=== PATIENT | female | born 1950 | race Hispanic/Latino ===

== ENCOUNTER 2018-07-18 06:27 | Emergency (ER) | payer OTHER ==
[2018-07-18] MEDS ORDERED: ACETAMINOPHEN 325 MG TABLET ONE (07:11)
--- NOTE | 2018-07-18 09:00 | ER ---
Nurse's Notes [facility] Name: Sapphire Martinez Age: 68 yrs Sex: Female : 1950 Arrival Date: 07/18/2018 Time: 06:29 Bed 5 Private MD: Diagnosis: Cervical disc disorder with radiculopathy Presentation: 07/18 06:38 Presenting complaint: Patient states: neck pain on left side for one week, elevated BP. tl2 Transition of care: patient was not received from another setting of care. Acute neurological deficit: none identified. Onset of symptoms was July 10, 2018. Risk Assessment: Do you want to hurt yourself or someone else? Patient reports no desire to harm self or others. Initial Sepsis Screen: Does the patient meet any 2 criteria? No. Patient's initial sepsis screen is negative. Does the patient have a suspected source of infection? No. Patient's initial sepsis screen is negative. Care prior to arrival: None. 06:38 Method Of Arrival: Ambulatory tl2 06:38 Acuity: TONY 4 tl2 Triage Assessment: 06:39 General: Appears in no apparent distress. uncomfortable, Behavior is calm, cooperative, tl2 appropriate for age. Pain: Complains of pain in left side of neck. Neuro: Level of Consciousness is awake, alert, obeys commands, Oriented to person, place, time, situation. Cardiovascular: Denies chest pain. Respiratory: Airway is patent Respiratory effort is even, unlabored, Respiratory pattern is regular, symmetrical. GI: No signs and/or symptoms were reported involving the gastrointestinal system. : No signs and/or symptoms were reported regarding the genitourinary system. Historical: - Allergies: 06:39 Advil; tl2 - Home Meds: 06:39 aspirin 81 mg Oral TbEC [Active]; atorvastatin Oral [Active]; cetirizine Oral [Active]; tl2 enalapril maleate Oral [Active]; gabapentin Oral [Active]; Metformin Oral [Active]; Omeprazole Oral [Active]; paroxetine Oral [Active]; - PMHx: 06:39 Diabetes - NIDDM; Hyperlipidemia; Hypertension; tl2 - Immunization history:: Adult Immunizations up to date. - Social history:: Smoking status: Patient/guardian denies using tobacco. - Ebola Screening: : No symptoms or risks identified at this time. Screenin:41 Abuse screen: Denies threats or abuse. Nutritional screening: No deficits noted. tl2 Tuberculosis screening: No symptoms or risk factors identified. Fall Risk None identified. Assessment: 07:05 General: Appears in no apparent distress. comfortable, Behavior is calm, cooperative, sv appropriate for age. Pain: Complains of pain in left posterior aspect of neck and left lateral aspect of neck Pain currently is 5 out of 10 on a pain scale. Pain began a week ago. Neuro: Level of Consciousness is awake, alert, obeys commands, Oriented to person, place, time, situation, Moves all extremities. Full function. Respiratory: Respiratory effort is even, unlabored, Respiratory pattern is regular, symmetrical. Derm: Skin is pink, warm \T\ dry. 09:28 Reassessment: Patient appears in no apparent distress at this time. Patient and/or sv family updated on plan of care and expected duration. Pain level reassessed. Patient is alert, oriented x 3, equal unlabored respirations, skin warm/dry/pink. Vital Signs: 06:39 BP 147 / 75; Pulse 59; Resp 18; Temp 98.3(O); Pulse Ox 96% on R/A; Weight 81.65 kg; tl2 Height 5 ft. 1 in. (154.94 cm); Pain 5/10; 07:42 BP 107 / 63; Pulse 56; Resp 16; Pulse Ox 96% on R/A; sv 08:14 BP 140 / 79; Pulse 55; Resp 16; Pulse Ox 96% ; sv 08:51 BP 123 / 63; Pulse 53; Resp 16; Pulse Ox 98% ; sv 06:39 Body Mass Index 34.01 (81.65 kg, 154.94 cm) tl2 ED Course: 06:29 Patient arrived in ED. es 06:31 Horacio Gabriel, RN is Primary Nurse. bp 06:39 Triage completed. tl2 06:39 Bakari Linares PA is PHCP. jmm 06:39 Rodolfo Bolden MD is Attending Physician. jmm 06:39 Arm band placed on right wrist. tl2 06:41 Patient has correct armband on for positive identification. Bed in low position. Call tl2 light in reach. Side rails up X 1. Adult w/ patient. 07:03 Primary Nurse role handed off by Horacio Gabriel, RN sv 07:03 Yudy Dawkins, RN is Primary Nurse. sv 07:11 EKG done, by ED staff, reviewed by Bakari WAKEFIELD. sv 07:16 CT completed. Patient moved to CT via wheelchair. Patient moved back from CT. cw1 07:22 CT Head C Spine In Process Unspecified. EDMS 07:42 Awaiting radiology results. Awaiting re-evaluation by ER provider. sv 08:59 Herb Arredondo MD is Referral Physician. [facility] 09:28 No provider procedures requiring assistance completed. Patient did not have IV access sv during this emergency room visit. Administered Medications: 07:11 Drug: Tylenol 650 mg Route: PO; sv 08:00 Follow up: Response: No adverse reaction sv Outcome: 09:00 Discharge ordered by . [facility] 09:28 Discharged to home ambulatory, with family. sv 09:28 Condition: stable 09:28 Discharge instructions given to patient, Instructed on discharge instructions, follow up and referral plans. medication usage, Demonstrated understanding of instructions, follow-up care, medications, Prescriptions given X 1. 09:28 Patient left the ED. sv Signatures: Dispatcher [employer] EDMS Yudy Dawkins, RN RN Bakari Coley PA PA [facility] Shelby Miranda Crystal cw1 Angi Zarate, RN RN tl2 Horacio Gabriel, RN RN bp
--- NOTE | 2018-07-18 09:00 | EDPHYS ---
Physician Documentation [facility] Name: Sapphire Martinez Age: 68 yrs Sex: Female : 1950 Arrival Date: 07/18/2018 Time: 06:29 Bed 5 Private MD: ED Physician Rodolfo Bolden HPI: 07/18 07:00 This 68 yrs old Female presents to ER via Ambulatory with complaints of Neck jmm Pain, <24hrs Old. 07:00 The patient or guardian complains of pain, that is acute. Onset: The symptoms/episode jmm began/occurred gradually, 1 week(s) ago. Associated signs and symptoms: Pertinent negatives: fever, vomiting, weakness. The pain does not radiate. This is a 68 year old female with a history of DM, HLP, HTN that presents to the ED with left sided neck pain radiating to the base of the skull for the past week. Patient denies weakness, fever, chest pain. Patient is concerned pain may be due to elevated blood pressure. . Historical: - Allergies: 06:39 Advil; tl2 - Home Meds: 06:39 aspirin 81 mg Oral TbEC [Active]; atorvastatin Oral [Active]; cetirizine Oral [Active]; tl2 enalapril maleate Oral [Active]; gabapentin Oral [Active]; Metformin Oral [Active]; Omeprazole Oral [Active]; paroxetine Oral [Active]; - PMHx: 06:39 Diabetes - NIDDM; Hyperlipidemia; Hypertension; tl2 - Immunization history:: Adult Immunizations up to date. - Social history:: Smoking status: Patient/guardian denies using tobacco. - Ebola Screening: : No symptoms or risks identified at this time. ROS: 07:00 Constitutional: Negative for fever, chills, and weight loss, Cardiovascular: Negative jmm for chest pain, palpitations, and edema, Respiratory: Negative for shortness of breath, cough, wheezing, and pleuritic chest pain. 07:00 Neck: Positive for pain with movement. 07:00 Neuro: Positive for headache. 07:00 All other systems are negative. Exam: 07:00 Head/Face: atraumatic. jmm 07:00 Constitutional: The patient appears in no acute distress, alert, awake. 07:00 Neck: C-spine: appears grossly normal, ROM/movement: is normal, pain elicited on palpation of the left trapezius, pain on palpation of the base of the skull. 07:00 Musculoskeletal/extremity: FROM appreciated, Full strength in all extremities, full safety representative strength. 07:00 Skin: Appearance: Color: normal in color. 07:00 Neuro: Orientation: is normal, Mentation: is normal, Memory: is normal, Gait: is steady. 07:00 Psych: Behavior/mood is pleasant, cooperative. Vital Signs: 06:39 BP 147 / 75; Pulse 59; Resp 18; Temp 98.3(O); Pulse Ox 96% on R/A; Weight 81.65 kg; tl2 Height 5 ft. 1 in. (154.94 cm); Pain 5/10; 07:42 BP 107 / 63; Pulse 56; Resp 16; Pulse Ox 96% on R/A; sv 08:14 BP 140 / 79; Pulse 55; Resp 16; Pulse Ox 96% ; sv 08:51 BP 123 / 63; Pulse 53; Resp 16; Pulse Ox 98% ; sv 06:39 Body Mass Index 34.01 (81.65 kg, 154.94 cm) tl2 MDM: 06:59 Patient medically screened. [facility] 08:57 Data reviewed: vital signs, nurses notes, radiologic studies, CT scan. Counseling: I gal had a detailed discussion with the patient and/or guardian regarding: the historical points, exam findings, and any diagnostic results supporting the discharge/admit diagnosis, radiology results, the need for outpatient follow up, to return to the emergency department if symptoms worsen or persist or if there are any questions or concerns that arise at home. ED course: Patient has no neuro deficits at this time. Dr. Jean discussed CT findings with Dr. Carrasco. Findings appear chronic but advise outpatient MRI for further evaluation. I discussed results with the patient using an mechanical press operator. Patient states she was diagnosed with a pinched nerve 6 months prior. I advised the patient of the need to follow up with pharmacy informatics specialist. Patient given strict return precautions. Patient understood and agrees with the plan of care. . 07/18 07:00 Order name: CT Head C Spine [facility] 07/18 07:00 Order name: EKG - Nurse/Tech; Complete Time: 07:11 [facility] 07/18 07:11 Order name: EKG; Complete Time: 07:11 sv Administered Medications: 07:11 Drug: Tylenol 650 mg Route: PO; sv 08:00 Follow up: Response: No adverse reaction sv Disposition: 07/18/18 09:00 Discharged to Home. Impression: Cervical disc disorder with radiculopathy. - Condition is Stable. - Discharge Instructions: Cervical Radiculopathy. - Prescriptions for orphenadrine citrate 100 mg Oral Tablet Sustained Release - take 1 tablet by ORAL route 2 times per day As needed; 20 tablet. - Medication Reconciliation Form, Thank You Letter, Antibiotic Education, Prescription Opioid Use form. - Follow up: Herb Arredondo MD; When: 1 - 2 days; Reason: Recheck today's complaints, Continuance of care, Re-evaluation by your physician. Signatures: Dispatcher [employer] Yudy Lawrence, LUISA RN Bakari Coley PA PA jmm Knox, Taylor RN RN tl2 Corrections: (The following items were deleted from the chart) 09:28 09:00 07/18/2018 09:00 Discharged to Home. Impression: Cervical disc disorder with sv radiculopathy. Condition is Stable. Forms are Medication Reconciliation Form, Thank You Letter, Antibiotic Education, Prescription Opioid Use. Follow up: Herb Arredondo; When: 1 - 2 days; Reason: Recheck today's complaints, Continuance of care, Re-evaluation by your physician. gal
--- NOTE | 2018-07-19 08:45 | RAD REPORT ---
EXAM DESCRIPTION: CT - Head C Spine Mpr Wo Con - 07/18/2018 11:28 pm CLINICAL HISTORY: Head and neck pain. Radiculopathy COMPARISON: February 2018 MRI C-spine TECHNIQUE: Computed axial tomography of the head and cervical spine was obtained. Sagittal and coronal reconstruction was performed.Due to hospital technical malfunction the exam coul d not be dictated yesterday All CT scans are performed using dose optimization technique as appropriate and may include automated exposure control or mA/KV adjustment according to patient size. FINDINGS: An intracranial bleed is not seen. The ventricles are normal in caliber. An extra-axial fl uid collection is not noted.Fluid within the visualized sinuses and mastoids is not seen A cervical fracture is not visualized. No dislocation is noted. A small central disc herniation is pr esent at C3-4 mildly compressing the spinal cord. A structure is present within the region of the left transverse foramen/left neural foramina which e rodes the left aspect of the C6 vertebral body. IMPRESSION: No acute intracranial abnormality is seen. A cervical fracture is not visualized. A small central disc herniation C3-4 Structure expanding the left transverse foramen/neural foramina and eroding the left aspect of the C6 vertebral body. This could be secondary to a mass such as a nerve sheath tumor or dural ectasia of t he nerve root sleeve. MRI with contrast is recommended The examination was discussed with Doctor Jean in the Emergency Room 07/18/2018
--- NOTE | 2018-07-20 08:19 | EKG ---
Test Date: 2018-07-18 Test Time: 07:10:10 Manager Personal: SWG MEASUREMENT RESULTS: Intervals: Rate: 60 VA: 142 QRSD: 82 QT: 474 QTc: 474 [place]: P: -2 VA: 142 QRS: 18 T: -36 INTERPRETIVE STATEMENTS: sinus bradycardia with frequent premature ventricular complexes Nonspecific T wave abnormality Prolonged QT Abnormal ECG Compared to ECG 09/14/2017 17:10:01 T-wave abnormality now present Prolonged QT interval now present Sinus rhythm no longer present Electronically Signed On 07-20-18 08:19:13 CDT by Faisal Allen
== END 2018-07-18 09:28 | disposition home or self-care (01) ==
LOC: ER 06:27
DX: M54.12 Radiculopathy, cervical region (principal); E11.9 Type 2 diabetes mellitus without complications; E78.5 Hyperlipidemia, unspecified; I10 Essential (primary) hypertension; Z88.6 Allergy status to analgesic agent
CPT/HCPCS: 70450; 72125; 93005; 99284

== ENCOUNTER 2019-01-14 17:46 | Emergency (ER) | payer OTHER ==
[2019-01-14] MEDS ORDERED: ONDANSETRON 4 MG/2 ML VIAL ONE (18:23)
[2019-01-14] MEDS ORDERED: FENTANYL CITR 100 MCG/2 ML ONE (18:23)
[2019-01-14 18:59] LABS: Absolute Lymphocytes (CBC) 3.3 K/uL (0.7-4.9); Absolute Monocytes 0.7 K/uL (0.1-1.3); Absolute Neutrophil 3.3 K/uL (1.8-8.0); Basophils % 0.4 % (0-1.3); Eosinophils % 2.1 % (0-4.4); Hematocrit 39.4 % (36.0-45.0); Lymphocytes % 43.6 % (15.3-44.8); MPV 10.4 fL (7.6-11.3); Monocytes % 9.1 % (3.3-12.3); RBC Red Blood Cell Count 4.44 M/uL (3.86-4.86)
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
[2019-01-14 20:24] LABS: Potassium 3.9 mmol/L (3.5-5.1)
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
== END 2019-01-14 20:51 | disposition home or self-care (01) ==
LOC: ER 17:46
DX: S13.9XXA Sprain of joints and ligaments of unspecified parts of neck, initial encounter (principal); S40.012A Contusion of left shoulder, initial encounter; V49.40XA Driver injured in collision with unspecified motor vehicles in traffic accident, initial encounter; E11.9 Type 2 diabetes mellitus without complications; E78.5 Hyperlipidemia, unspecified; I10 Essential (primary) hypertension
CPT/HCPCS: 85025; 80048; 36415; 86900; 86850; 86901; 70450; 72125; 71260; 74177; 96375; 96374; 99285; Q9967; J3010; J2405

== ENCOUNTER 2020-05-24 18:09 | Inpatient (IN) | payer OTHER ==
--- OUTSIDE RECORDS SUMMARY | 2020-05-24 18:12 | XMS REPORT | Continuity of Care Document ---
:1950 Author Organization [facility] t Address [address] [place] [address] Care Team Providers Name Role Phone Unavailable Unavailable Unavailable Payers Payer Name Policy Type Policy Number Effective Date Expiration Date S ource Problems This patient has no known problems. Allergies, Adverse Reactions, Alerts Allergy Allergy Status Severity Reaction(s) Onset Inactive Treating Comm ents Source Name Type Date Date Clinician ibuprofe DA Active U [facility] Oscar n 02-02 [facility] Medications This patient has no known medications. Procedures This patient has no known procedures. Results Test Description Test Time Test Comments Results Result Comments Source GLUBED 2019-02-05 06:37:00 Test Item Value Reference Range Interpretation Comme nts GLUBED (test code = GLUBED) 168 mg/dL 70-105 H Performed by certified phototypesetter operator at [place]2019-04-11 20:57:00 Test Item Value Reference Range Interpretation Comments GLUBED (test code = 158 mg/dL 70-105 H Performe d by certified GLUBED) phototypesetter operator at [place]2019-04-11 16:41:00 Test Item Value Reference Range Interpretation Comments GLUBED (test code = 136 mg/dL 70-105 H Performe d by certified GLUBED) phototypesetter operator at [place]2019-04-11 11:35:00 Test Item Value Reference Range Interpretation Comments GLUBED (test code = 192 mg/dL 70-105 H Performe d by certified GLUBED) phototypesetter operator at [place]2019-04-11 07:44:00 Test Item Value Reference Range Interpretation Comments GLUBED (test code = 145 mg/dL 70-105 H Performe d by certified [facility] 21:[facility] Test Item Value Reference Range Interpretation Comments GLUBED (test code = 159 mg/dL 70-105 H Performe d by certified GLUBED) phototypesetter operator at [place]2019-04-10 16:47:00 Test Item Value Reference Range Interpretation Comments GLUBED (test code = 169 mg/dL 70-105 H Performe d by certified GLUBED) phototypesetter operator at [place]2019-04-10 11:49:00 Test Item Value Reference Range Interpretation Comments GLUBED (test code = 137 mg/dL 70-105 H Performe d by certified GLUBED) phototypesetter operator at [facility] - CT ABD PELVIS W/O [id number] 15:41:00 Name: DANIELLE BROWN [facility] : 1950 Age/S: 68 / F [address] [facility] Unit #: [id number] Loc: [place] [address] Phys: Jordan Kraus Jr, MD Acct: [id number] Dis Date: Status: REG ER PHONE #: [phone] Exam Date: 02/02/2019 1449 FAX #: [phone] Reason: ABD APIN EXAMS: CPTCODE: [id number] CT ABD PELVIS W/O CONT 47234 - CT ABD PELVIS W/O CONT CLINICAL HISTORY: Abdominal pain. COMPARISON: None TECHNIQUE: Sequential axial images of abdomen and pelvis without contrast with [place] coronal reconstructions. This CT exam was performed using one or more of the following dose reduction techniques: Automated exposure control; Adjustment of the mA and/or kV according to patient size; Use of iterative reconstruction technique. The total exam DLP is 57 3.56 mGy-cm. FINDINGS: There is limited evaluation of the solid and hollow visceral organs without the use of IV contrast. Dependent atelectasis is seen at bothlung bases. There is a subtle 3 mm nodule within the periphery of the right middle lobe. No definite pleural or pericardial effusion. No pneumothorax. The thoracic aorta is markedly tortuous. Moderate atherosclerotic calcifications are seen within the thoracic aorta and coronary arteries. 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 Pancreatic tail is not visualized as well. The gallbladder is partially decompressed and contains hyperdense material in the dependent portion, suggestive of sludge. The left kidney appears mildly atrophic. There is evidence of cortical scarring within the right mid kidney is. In addition, there is marked cortical thinning within the mid left kidney. Cortical lobular prominence at the upper pole of the left kidney may represent preserved cortex versus solid mass lesion. There is no evidence of hydronephrosis. Adrenal glands are unremarkable. Liver is decreased in attenuation, consistent with mild diffuse fatty infiltration. Bowel loops are unopacified and appear decompressed. There is a moderate amount of stool scattered throughout the colon. Scattered diverticula are noted, without definite inflammation. The appendix is unremarkable. There is mild laxity in the anterior abdominal wall, with a wide mouth paraumbilical hernia containing small bowel loops. Small bowel is normal in caliber. There is no evidence of free air, free fluid or pneumatosis. The distal stomachis decompressed which accentuates mucosa. There is an area of focal haziness within the mesentery with associated small 9 x 6 mm soft tissue and adjacent PAGE 1 Signed Report (CONTINUED) Name: DANIELLE BROWN [facility] : 1950 Age/S: 68 / F [address] [facility] Unit #: [id number] Loc: [place], [place] [address] Phys: Jordan Kraus Jr, MD Acct: [id number] Dis Date: Status: REG ER PHONE #: [phone] Exam Date: 02/02/2019 1449 FAX #: [phone] Reason: ABD APIN EXAMS: CPT CODE: [id number] CT ABD PELVIS W/O CONT 88310 <Continued> calcifications (series 300, image #[id number]; series #2 image #[id number]) The pelvic sidewall symmetric. The bladder is incompletely distended without calculi. Patient appears to be status post hysterectomy. The abdominal aorta is quite tortuous with mild to moderate atherosclerotic calcifications. 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 No acute bony abnormality. IMPRESSION: No evidence of intestinal or urinary obstruction. No definite inflammatory process associated with the bowel. Focal area of haziness within the anterior abdominal mesentery with associated subcentimeter soft tissue density and calcifications. This area is adjacent to the transverse colon. Findings could represent epiploic appendagitis, mesenteric infarct or even an area of mesenteric infiltration secondary to metastatic process. Recommend correlation with symptomatology. Mildly decompressed gallbladder with evidence of gallbladder sludge versus tiny stones. No secondary signs of gallbladder inflammation. Bilateral renal scarring. There is thickening of the cortex in a nodular configuration the upper pole the left kidney. This may represent an area of preserved cortex. However, a focal solid nodule is not excluded. Paraumbilical hernia containing small bowel loops. No evidence of incarceration or obstruction. 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 Prominent gastric mucosa which may be in part related to incomplete distention. An inflammatory process, however, is not excluded. Other nonemergent findings described above. PAGE 2 Signed Report (CONTINUED) Name: DANIELLE BROWN [facility] : 1950 Age/S: 68 / F [address] [facility] Unit #: [id number] Loc: [place] [address] Phys: Jordan Kraus [facility] Acct: [id number] Dis Date: Status: REG ER PHONE #: [phone] Exam Date: 02/02/2019 1449 FAX #: [phone] Reason: ABD APIN EXAMS: CPT CODE: [id number] CT ABD PELVIS W/O CONT 18490 <Continued> at 1541 Reported and signed by: Liz Rutledge MD CC: Reagan Hirsch Technologist:Yared Castle RT (R) CT (R) CTDI: 10.54 DLP: 573.56 Trnscb Date/Time: 02/02/2019 (1541) [id number] Orig Print D/T: S: 02/02/2019 (1544) CTDI: 10.54 DLP: 573.56 PAGE 3 Signed ReportURINALYSIS W REFLEX [id number] 15:22:00 Test Item Value Reference Range Interpretation Comments UA COLOR (test code = COLU) Yellow YELLOW UA APPEARANCE (test code = HAZY CLEAR APPU) UA GLUCOSE DIPSTICK (test code NORMAL mg/dl NORMAL = DGLUU) UA BILIRUBIN DIPSTICK (test NEGATIVE mg/dl NEGATIVE code = BILU) UA KETONE DIPSTICK (test code NEGATIVE mg/dl NEGATIVE = KETU) UA SPECIFIC GRAVITY (test code 1.025 1.001-1.035 N = SGU) UA BLOOD DIPSTICK (test code = NEGATIVE /UL NEGATIVE JOE) UA PH DIPSTICK (test code = 5.0 4.6-8.0 LUI) UA PROTEIN DIPSTICK (test code NEGATIVE mg/dl NEGATIVE = PROU) UA UROBILINIOGEN DIPSTICK NORMAL mg/dl NORMAL (test code = URO) UA NITRITE DIPSTICK (test code NEGATIVE NEGATIVE = ANGELA) UA LEUKOCYTE ESTERASE DIPSTICK NEGATIVE /UL NEGATIVE (test code = LEUU) UA COMMENT (test code = COMU) CLN CATCH UA WBC (test code = WBCU) 3-5 #/hpf 0-5 UA RBC (test code = RBCU) 6-10 #/hpf 0-5 A UA EPITHELIAL CELLS (test code FEW /hpf NEG,FEW = EPIU) UA BACTERIA (test code = BACU) 2+ /hpf NEGATIVE A UA CALCIUM OXALATE CRYSTALS 1+ /hpf NEG,FEW A (test code = CAOXU) UA MUCUS (test code = MUCU) 2+ /hpf NEG,FEW A B-TYPE NATRIURETIC [id number] 15:02:00 Test Item Value Reference Range Interpretation Comments B-TYPE NATRIURETIC PEPTIDE (test 34.8 PG/ML 0-100 N code = BNP) BASIC METABOLIC [id number] 14:51:00 Test Item Value Reference Range Interpretation Comments SODIUM (test code = 139 mmol/L 136-145 N NA) POTASSIUM (test code = 3.9 mmol/L 3.5-5.1 N K) CHLORIDE (test code = 106 mmol/L 98-107 N CL) CARBON DIOXIDE (test 25 mmol/L 21-32 N code = CO2) GLUCOSE (test code = 170 mg/dL 70-100 H GLU) BLOOD UREA NITROGEN 16 mg/dL 7-18 N (test code = BUN) GLOMERULAR FILTRATION > 60.00 >=60 Report ing units: RATE (test code = GFR) mL/mi n/1.73m\S\2 (Modified MDRD formula)REFEREN CE RANGE: > or = 6 0 ml/min/1.73M2IF PATIENT IS -ROXANNA N, MULTIPLY REPORT ED RESULT BY1. CREATININE (test code 0.70 mg/dL 0.51-0.95 N = CREAT) CALCIUM (test code = 9.2 mg/dL 8.5-10.1 N CA) [id number] 14:51:00 Test Item Value Reference Range Interpretation Comments LIPASE (test code = LIP) 44 U/L 73-393 L [id number] 14:51:00 Test Item Value Reference Range Interpretation Comments TROPONIN-I (test <0.015 ng/ml 0.00-0.045 N GUIDELINES: 0.08 - 0.09 code = TROPI) Indeterminate0 .10 Risk Stratifica tion Limit: Suggest sequential te sting0.60 - 1.50 AMI cut off: Myocardial Inju ry by WHO criteria BASIC METABOLIC [id number] 14:49:00 Test Item Value Reference Range Interpretation Comments SODIUM (test code = 139 mmol/L 136-145 N NA) POTASSIUM (test code = 3.9 mmol/L 3.5-5.1 N K) CHLORIDE (test code = 106 mmol/L 98-107 N CL) CARBON DIOXIDE (test 25 mmol/L 21-32 N code = CO2) GLUCOSE (test code = 170 mg/dL 70-100 H GLU) BLOOD UREA NITROGEN 16 mg/dL 7-18 N (test code = BUN) GLOMERULAR FILTRATION > 60.00 >=60 Report ing units: RATE (test code = GFR) mL/mi n/1.73m\S\2 (Modified MDRD formula)REFEREN CE RANGE: > or = 6 0 ml/min/1.73M2IF PATIENT IS -ROXANNA N, MULTIPLY REPORT ED RESULT BY1. CREATININE (test code 0.70 mg/dL 0.51-0.95 N = CREAT) CALCIUM (test code = 9.2 mg/dL 8.5-10.1 N CA) [id number] 14:49:00 Test Item Value Reference Range Interpretation Comments LIPASE (test code = LIP) 44 U/L 73-393 L [id number] 14:49:00 Test Item Value Reference Range Interpretation Comments TROPONIN-I (test code = TROPI) ng/ml 0.00-0.045 PROTHROMBIN [id number] 14:48:00 Test Item Value Reference Interpretation Comments Range PROTHROMBIN TIME 12.9 SECONDS 8.7-12.1 H THERAPEUTIC LEVEL: 1.5 TO PATIENT (test code 1.9 TIMES NORMAL RANGE = PTP) INTERNATIONAL 1.2 Recommended Th erapeutic NORMAL RATIO (test PT Ratios For Oral code = INR) AnticoagulantTh erapy. CONDITION INT'L N ORMALIZED PT RATIO------- --- Prophylaxis of venous thrombosis 2.0 - 3.0in [facility] medical or surgicalpati ents, treatment of venousthrombosi s, prevention of e mbolism. Prevention of r ecurrent embolism, 2.5 - 3.5or treatment of patients with mechanicalprost hetic heart valves. THROMBOPLASTIN TIME [id number] 14:48:00 Test Item Value Reference Range Interpretation Comments THROMBOPLASTIN TIME PARTIAL 34.5 seconds 22.8-34.4 H (test code = PTT) CBC W/AUTO [id number] 14:33:00 Test Item Value Reference Range Interpretation Comments WHITE BLOOD CELL (test code = 8.8 X10(3) 4.5-11.0 N WBC) RED BLOOD CELL (test code = 3.75 X10(6) 4.2-5.4 L RBC) HEMOGLOBIN (test code = HGB) 11.1 g/dL 12.5-16.0 L HEMATOCRIT (test code = HCT) 35.1 % 37.0-47.0 L MEAN CELL VOLUME (test code = 93.6 fl 78-100 N MCV) MEAN CELL HGB (test code = MCH) 29.6 pg 26.0-34.0 N MEAN CELL HGB CONCETRATION 31.6 g/dl 30.0-37.0 N (test code = MCHC) RED CELL DISTRIBUTION WIDTH 14.9 % 11.5-14.5 H (test code = RDW) PLATELET COUNT (test code = 418 X10(3) 150-350 H PLT) MEAN PLATELET VOLUME (test code 9.8 fl 8.7-11.4 N = MPV) NEUTROPHIL % (test code = NT%) 66.2 % 36.0-66.0 H IMMATURE GRANULOCYTE % (test 0.6 % 0.0-2.0 N code = IG%) LYMPHOCYTE % (test code = LY%) 22.2 % 16-50 N MONOCYTE % (test code = MO%) 8.3 % 0.0-13.0 N EOSINOPHIL % (test code = EO%) 2.1 % 0.0-4.5 N BASOPHIL % (test code = BA%) 0.6 % 0.0-1.5 N NUCLEATED RBC % (test code = 0.0 % 0-0.2 N NRBC%) NEUTROPHIL # (test code = NT#) 5.8 X10(3) 1.7-7.7 N IMMATURE GRANULOCYTE # (test 0.05 X10(3)uL 0.00-0.03 H code = IG#) LYMPHOCYTE # (test code = LY#) 2.0 X10(3) 0.7-4.0 N MONOCYTE # (test code = MO#) 0.7 X10(3) 0.0-0.89 N EOSINOPHIL # (test code = EO#) 0.2 X10(3) 0.0-0.6 N BASOPHIL # (test code = BA#) 0.1 X10(3) 0.0-0.2 N NUCLEATED RBC # (test code = 0.00 K/mm3 0.0-0.1 N NRBC#) - XR CHEST 1 [id number] 14:25:00 [facility] Name: DANIELLE BROWN [address] [place] [address] Phys: Jordan Kraus Jr, MD [place], [place] [address] : 1950 Age: 68 Sex: F Acct: [id number] Loc: [place] PHONE #: [phone] Exam Date: 02/02/2019 Status: PRE ER FAX #: [phone] Radiology No: Unit No: [id number] Reason: chest pain EXAMS: CPT CODE: [id number] XR CHEST 1 V [id number] Fluoro Time: DAP (Gy m2): Air Kerma (mGy): EXAM: - XR CHEST 1 V LOCATION: C3 HISTORY: chest pain COMPARISON: None available time of interpretation. FINDINGS: Single view of the chest. No indwelling lines or tubes. No pneumothorax. The lungs are clear. No pleural effusions are present. The mediastinal contours are unremarkable. No acute osseous findings are present. IMPRESSION: No acute cardiopulmonary abnormality. at 2901 Reported and signed by: PRETTY SHARPE M.D. CC: Reagan Hirsch Technologist: RT [place] (R) Transcribed Date/Time: 02/02/2019 (0834) t.HV2 Orig Print D/T: S: 02/02/2019 (8737) PAGE 1 Signed Report
[2020-05-24] MEDS ORDERED: dexAMETHasone 10 MG/ML VIAL ONE (20:25)
[2020-05-24 20:45] LABS: Absolute Lymphocytes (CBC) 1.4 K/uL (0.7-4.9); Basophils % 0.2 % (0-1.3); Hematocrit 38.5 % (36.0-45.0); Lymphocytes % 10.2 % (15.3-44.8); MPV 10.1 fL (7.6-11.3); RBC Red Blood Cell Count 4.34 M/uL (3.86-4.86)
[2020-05-24] MEDS ORDERED: FENTANYL CITR 100 MCG/2 ML ONE (20:45)
--- NOTE | 2020-05-24 20:47 | RAD REPORT ---
EXAM DESCRIPTION: RAD - Chest Single View - 05/24/2020 8:37 pm CLINICAL HISTORY: Cough;Dyspnea, COVID positive COMPARISON: None TECHNIQUE: AP portable chest image was obtained 05/24/2020 8:37 pm . FINDINGS: Extensive bilateral airspace opacification is present. This predominantly peripheral distr ibution pattern is well described with COVID-19 pneumonia. Cardiomegaly is present. Vascular engorgem ent is present. Trachea is midline. No measurable pleural effusion and no pneumothorax. No acute bony abnormality seen. No acute aortic findings suspected. IMPRESSION: Bilateral airspace pneumonia pattern consistent with a COVID-19 pneumonia. Patient also has cardiomegaly and vascular engorgement. Patient may well have a component of failure/ volume overload as well.
[2020-05-24 20:48] LABS: Protime INR 1.01
[2020-05-24 20:56] LABS: Urine Glucose NEGATIVE (NEG); Urine Specific Gravity 1.015 (1.005-1.030)
[2020-05-24 20:57] LABS: Urine Blood NEGATIVE (NEG); Urine Protein NEGATIVE (NEG)
[2020-05-24 21:14] LABS: Blood Morphology Comment NOT SEEN (NOT SEEN); Platelet Estimate ADEQ; Urine White Blood Cell Casts OK
[2020-05-24 21:22] LABS: ALT/SGPT 39 U/L (12-78); AST/SGOT 42 U/L (15-37); Alkaline Phosphatase 84 U/L (45-117); BUN Blood Urea Nitrogen 19 mg/dL (7-18); Bicarbonate 26 mmol/L (21-32); Bilirubin Direct 0.1 mg/dL (0-0.2); Bilirubin Total 0.5 mg/dL (0.2-1.0); Ferritin 212.6 ng/mL (8-388); Glucose Level 189 mg/dL (74-106); Magnesium 1.9 mg/dL (1.8-2.4); NT PRO-BNP 992 pg/mL (<125); Potassium 3.4 mmol/L (3.5-5.1); Protein, Total 8.5 g/dL (6.4-8.2); Sodium Level 143 mmol/L (136-145); Troponin (Emerg Dept Use Only) < 0.02 ng/mL (0.0-0.045)
[2020-05-24] MEDS ORDERED: FUROSEMIDE 20 MG/ 2ML VIAL ONE (21:28)
[2020-05-24] MEDS ORDERED: ENOXAPARIN 80 MG/0.8 ML SQ ONE (21:28)
--- NOTE | 2020-05-24 21:30 | EDPHYS ---
Physician Documentation [facility] Name: Sapphire Martinez Age: 69 yrs Sex: Female : 1950 Arrival Date: 05/24/2020 Time: 18:23 Bed 19 Private MD: ED Physician Reji Amaral HPI: 05/24 22:35 This 69 yrs old Female presents to ER via EMS with complaints of Shortness Of snw Breath, COVID +. 22:35 The patient has shortness of breath at rest. Onset: The symptoms/episode began/occurred snw acutely. Duration: The symptoms are continuous, and are steadily getting worse. The patient's shortness of breath is aggravated by coughing, exertion, light activity, talking. Severity of symptoms: At their worst the symptoms were severe incapacitating. The patient has not experienced similar symptoms in the past. dx with CoVid 19 six days ago. Historical: - Allergies: 18:29 Advil; bp - Home Meds: 18:29 aspirin 81 mg Oral TbEC [Active]; atorvastatin Oral [Active]; cetirizine Oral [Active]; bp enalapril maleate Oral [Active]; gabapentin Oral [Active]; Metformin Oral [Active]; Omeprazole Oral [Active]; paroxetine Oral [Active]; - PMHx: 18:29 Diabetes - NIDDM; Hyperlipidemia; Hypertension; bp - Immunization history:: Adult Immunizations unknown. - Social history:: Smoking status: Patient denies any tobacco usage or history of. ROS: 22:35 Constitutional: Negative for fever, chills, and weight loss, Eyes: Negative for injury, snw pain, redness, and discharge, ENT: Negative for injury, pain, and discharge, Neck: Negative for injury, pain, and swelling, Cardiovascular: Negative for chest pain, palpitations, and edema. 22:35 Abdomen/GI: Negative for abdominal pain, nausea, vomiting, diarrhea, and constipation, Back: Negative for injury and pain, : Negative for injury, bleeding, discharge, and swelling, MS/Extremity: Negative for injury and deformity, Skin: Negative for injury, rash, and discoloration, Neuro: Negative for headache, weakness, numbness, tingling, and seizure, Psych: Negative for depression, anxiety, suicide ideation, homicidal ideation, and hallucinations. 22:35 Respiratory: Positive for cough, shortness of breath, at rest. Exam: 20:15 Head/Face: Normocephalic, atraumatic. Eyes: Pupils equal round and reactive to light, snw extra-ocular motions intact. Lids and lashes normal. Conjunctiva and sclera are non-icteric and not injected. Cornea within normal limits. Periorbital areas with no swelling, redness, or edema. ENT: Nares patent. No nasal discharge, no septal abnormalities noted. Tympanic membranes are normal and external auditory canals are clear. Oropharynx with no redness, swelling, or masses, exudates, or evidence of obstruction, uvula midline. Mucous membranes moist. Neck: Trachea midline, no thyromegaly or masses palpated, and no cervical lymphadenopathy. Supple, full range of motion without nuchal rigidity, or vertebral point tenderness. No Meningismus. Chest/axilla: Normal chest wall appearance and motion. Nontender with no deformity. No lesions are appreciated. 20:15 Constitutional: The patient appears alert, anxious, in obvious distress, moderately distressed, uncomfortable. 20:15 Cardiovascular: Rate: normal. 20:15 Respiratory: moderate respiratory distress is noted, Respirations: Vital Signs: 18:23 BP 145 / 89; Pulse 55; Resp 24; Temp 98.8; Pulse Ox 93% on 2 lpm NC; bp 19:23 BP 144 / 98; Pulse 61; Resp 23 S; Pulse Ox 94% on 2 lpm NC; jd3 21:04 Weight 77.11 kg (R); jd3 21:05 BP 135 / 70; Pulse 65; Resp 25 S; Pulse Ox 95% on 6 lpm NC; jd3 22:20 BP 100 / 49; Pulse 74; Resp 24 S; Pulse Ox 90% on 6 lpm NC; jd3 23:25 BP 105 / 48; Pulse 59; Resp 25 S; Pulse Ox 90% on 6 lpm NC; jd3 23:57 BP 107 / 48; Pulse 58; Resp 23 S; Pulse Ox 91% on 6 lpm NC; jd3 MDM: 18:53 Patient medically screened. snw 21:27 Data reviewed: vital signs, nurses notes, lab test result(s), EKG, radiologic studies. snw Data interpreted: Pulse oximetry: on 2L(s) per nasal canula, is 88 %. Interpretation: hypoxia. Plan: O2 by NC applied. Counseling: I had a detailed discussion with the patient and/or guardian regarding: the historical points, exam findings, and any diagnostic results supporting the discharge/admit diagnosis, radiology results, the need for further work-up and treatment in the hospital. Physician consultation: Myrtle Levy MD was called at 21:28, was contacted at 21:28, regarding admission, to the ICU, patient's condition. 05/24 19:19 Order name: Glucose, Ancillary Testing; Complete Time: 19:23 [facility] 05/24 20:00 Order name: Basic Metabolic Panel; Complete Time: 21:22 [facility] 05/24 20:00 Order name: CBC with Diff; Complete Time: :19 [facility] 05/24 20:00 Order name: LFT's; Complete Time: 21:22 [facility] 05/24 20:00 Order name: Magnesium; Complete Time: 21:22 [facility] 05/24 20:00 Order name: NT PRO-BNP; Complete Time: 21:22 [facility] 05/24 20:00 Order name: PT-INR; Complete Time: 21:00 [facility] 05/24 20:00 Order name: Troponin (emerg Dept Use Only); Complete Time: 21:22 [facility] 05/24 20:00 Order name: DD; Complete Time: 21:00 [facility] 05/24 20:00 Order name: Ferritin; Complete Time: 21:22 [facility] 05/24 20:01 Order name: Blood Culture Adult (2) [facility] 05/24 20:01 Order name: Procalcitonin; Complete Time: 22:14 [facility] 05/24 20:01 Order name: Lactate; Complete Time: 21:24 [facility] hospital 05/24 20:48 Order name: Urine Dipstick--Ancillary (enter results); Complete Time: 20:59 ar5 05/24 21:14 Order name: CBC Smear Scan; Complete Time: 21:19 [facility] 05/24 22:45 Order name: Comprehensive Metabolic Panel [facility] 05/24 22:45 Order name: Comprehensive Metabolic Panel [facility] 05/24 22:45 Order name: Lactate [facility] 05/24 22:45 Order name: Lactate [facility] 05/24 22:45 Order name: Lipid Profile [facility] 05/24 22:45 Order name: Lipid Profile EDMS 05/24 22:45 Order name: Magnesium EDMS 05/24 22:45 Order name: Magnesium EDMS 05/24 22:45 Order name: NT PRO-BNP EDMS 05/24 22:45 Order name: NT PRO-BNP EDMS 05/24 22:45 Order name: Phosphorus EDMS 05/24 22:45 Order name: Phosphorus EDMS 05/24 22:45 Order name: Protime (+INR) EDMS 05/24 22:45 Order name: Protime (+INR) EDMS 05/24 22:45 Order name: PTT, Activated Partial Thromb EDMS 05/24 18:54 Order name: FSBS; Complete Time: 19:21 w 05/24 18:54 Order name: Chest Single View XRAY; Complete Time: 20:59 05/24 20:00 Order name: EKG; Complete Time: 20:01 05/24 20:00 Order name: Cardiac monitoring; Complete Time: 21:03 05/24 20:00 Order name: EKG - Nurse/Tech; Complete Time: 21:03 05/24 20:00 Order name: IV Saline Lock; Complete Time: 20:33 05/24 20:00 Order name: Labs collected and sent; Complete Time: 20:33 05/24 20:00 Order name: O2 Per Protocol; Complete Time: 20:14 w 05/24 20:00 Order name: O2 Sat Monitoring; Complete Time: 20:14 05/24 20:18 Order name: Misc. Order: O2 up to NC at 6L upon assessment, SpO2 88% on 2L at time of snw assessment; Complete Time: 20:33 05/24 21:00 Order name: Blair; Complete Time: 21:29 05/24 22:45 Order name: PTT, Activated Partial Thromb EDMS 05/24 22:45 Order name: T4 Free EDMS 05/24 22:45 Order name: T4 Free EDMS 05/24 22:45 Order name: Thyroid Stimulating Hormone EDMS 05/24 22:45 Order name: Thyroid Stimulating Hormone EDMS 05/24 22:45 Order name: Troponin I EDMS 05/24 22:45 Order name: Troponin I EDMS 05/24 22:45 Order name: Troponin I EDMS 05/24 22:45 Order name: Troponin I EDAK 05/24 22:46 Order name: CONS Physician Consult EDAK 05/24 22:46 Order name: NPO EDAK 05/25 00:29 Order name: Lactate Sepsis 2 HR Follow-up EDMS Administered Medications: 21:00 Drug: fentaNYL (PF) 25 mcg Route: IVP; Site: right antecubital; jd3 22:00 Follow up: Response: No adverse reaction; RASS: Alert and Calm (0) jd3 21:03 Drug: Decadron - Dexamethasone 10 mg Route: IVP; Site: right antecubital; jd3 22:00 Follow up: Response: No adverse reaction jd3 21:28 Drug: Lasix 20 mg Route: IVP; Site: right antecubital; jd3 22:28 Follow up: Response: No adverse reaction jd3 21:28 Drug: Lovenox 1 mg/kg Route: Sub-Q; Site: abdomen; jd3 22:28 Follow up: Response: No adverse reaction jd3 21:45 Drug: Zithromax 500 mg Route: IVPB; Infused Over: 1 hrs; Site: right antecubital; jd3 22:45 Follow up: Response: No adverse reaction; IV Status: Completed infusion; IV Intake: jd3 250ml Disposition: 05/25 05:44 Co-signature as Attending Physician, Connie VILLA I agree with the assessment kdr and plan of care. Disposition: 05/24/20 21:29 Hospitalization ordered by Myrtle Levy for Inpatient Admission. Preliminary diagnosis are Pneumonia due to SARS-associated coronavirus, Fluid overload, Hypoxemia. - Bed requested for Intensive Care Unit. - Status is Inpatient Admission. jd3 - Condition is Stable. - Problem is an acute exacerbation. - Symptoms have worsened. Signatures: Dispatcher [employer] EDAK Reji Amaral MD MD kdr Waters, Shelly, FNP-C FNP-Dina Galvan, LUISA RN Ephraim Péerz RN RN jd3 Peltier, Brian, RN RN bp Corrections: (The following items were deleted from the chart) 05/24 21:30 21:29 Hospitalization Ordered by Myrtle Levy MD for Inpatient Admission. Preliminary snw diagnosis is Pneumonia due to SARS-associated coronavirus; Fluid overload. Bed requested for Intensive Care Unit. Status is Inpatient Admission. Condition is Stable. Problem is an acute exacerbation. Symptoms have worsened. critical access hospital : 21:30 05/24/2020 21:29 Hospitalization Ordered by Myrtle Levy MD for Inpatient cg Admission. Preliminary diagnosis is Pneumonia due to SARS-associated coronavirus; Fluid overload; Hypoxemia. Bed requested for Intensive Care Unit. Status is Inpatient Admission. Condition is Stable. Problem is an acute exacerbation. Symptoms have worsened. critical access hospital 05/25 00:39 05/24 23:29 05/24/2020 21:29 Hospitalization Ordered by Myrtle Levy MD for Inpatient jd3 Admission. Preliminary diagnosis is Pneumonia due to SARS-associated coronavirus; Fluid overload; Hypoxemia. Bed requested for Intensive Care Unit. Status is Inpatient Admission. Condition is Stable. Problem is an acute exacerbation. Symptoms have worsened. cg
--- NOTE | 2020-05-24 21:30 | ER ---
Nurse's Notes [facility] Name: Sappihre Martinez Age: 69 yrs Sex: Female : 1950 Arrival Date: 05/24/2020 Time: 18:23 Bed 19 Private MD: Diagnosis: Pneumonia due to SARS-associated coronavirus;Fluid overload;Hypoxemia Presentation: 05/24 18:23 Chief complaint: EMS states: SOB TODAY, RECENT DX OF COVID. Coronavirus screen: Patient bp instructed to continue to wear a mask when interacting with others. Patient moved to private room, placed in contact and droplet isolation with eye protection until further assessment. Ebola Screen: No symptoms or risks identified at this time. Initial Sepsis Screen: Does the patient meet any 2 criteria? No. Patient's initial sepsis screen is negative. Does the patient have a suspected source of infection? No. Patient's initial sepsis screen is negative. Risk Assessment: Do you want to hurt yourself or someone else? Patient reports no desire to harm self or others. Onset of symptoms is unknown. Care prior to arrival: Glucose check: 275. 18:23 Method Of Arrival: EMS: [facility] bp 18:23 Acuity: TONY 3 bp Triage Assessment: 18:30 General: Appears in no apparent distress. uncomfortable, ill, obese, Behavior is calm, bp cooperative, appropriate for age. Pain: Denies pain. EENT: No deficits noted. Neuro: No deficits noted. Cardiovascular: Rhythm is sinus bradycardia. Respiratory: Reports shortness of breath Airway is patent Respiratory effort is even, labored. GI: No signs and/or symptoms were reported involving the gastrointestinal system. : No signs and/or symptoms were reported regarding the genitourinary system. Derm: No deficits noted. Musculoskeletal: No deficits noted. Historical: - Allergies: 18:29 Advil; bp - Home Meds: 18:29 aspirin 81 mg Oral TbEC [Active]; atorvastatin Oral [Active]; cetirizine Oral [Active]; bp enalapril maleate Oral [Active]; gabapentin Oral [Active]; Metformin Oral [Active]; Omeprazole Oral [Active]; paroxetine Oral [Active]; - PMHx: 18:29 Diabetes - NIDDM; Hyperlipidemia; Hypertension; bp - Immunization history:: Adult Immunizations unknown. - Social history:: Smoking status: Patient denies any tobacco usage or history of. Screenin:30 Abuse screen: Denies threats or abuse. Denies injuries from another. Nutritional bp screening: No deficits noted. Tuberculosis screening: No symptoms or risk factors identified. Fall Risk None identified. Assessment: 18:30 General: SEE TRIAGE NOTE. bp 19:41 General: Appears in no apparent distress. uncomfortable, Behavior is calm, cooperative, jd3 appropriate for age. Pain: Complains of pain in generalized aching. Neuro: Level of Consciousness is awake, alert, obeys commands, Oriented to person, place, time, situation. Cardiovascular: Capillary refill < 3 seconds Patient's skin is warm and dry. Respiratory: Reports shortness of breath at rest cough that is persistent Airway is patent Respiratory effort is labored, shallow, Respiratory pattern is symmetrical, tachypnea. GI: No signs and/or symptoms were reported involving the gastrointestinal system. : No signs and/or symptoms were reported regarding the genitourinary system. EENT: No signs and/or symptoms were reported regarding the EENT system. Derm: Skin is intact, Skin is dry, Skin is normal, Skin temperature is warm. Musculoskeletal: Circulation, motion, and sensation intact. Range of motion: intact in all extremities. 21:06 Reassessment: No changes from previously documented assessment. Patient and/or family jd3 updated on plan of care and expected duration. Pain level reassessed. 22:20 Reassessment: No changes from previously documented assessment. Patient and/or family jd3 updated on plan of care and expected duration. Pain level reassessed. 23:25 Reassessment: No changes from previously documented assessment. Patient and/or family jd3 updated on plan of care and expected duration. Pain level reassessed. 23:58 Reassessment: No changes from previously documented assessment. Patient and/or family jd3 updated on plan of care and expected duration. Pain level reassessed. 05/25 00:31 Reassessment: No changes from previously documented assessment. Patient and/or family jd3 updated on plan of care and expected duration. Pain level reassessed. report given to Saad MORAN. Vital Signs: 05/24 18:23 BP 145 / 89; Pulse 55; Resp 24; Temp 98.8; Pulse Ox 93% on 2 lpm NC; bp 19:23 BP 144 / 98; Pulse 61; Resp 23 S; Pulse Ox 94% on 2 lpm NC; jd3 21:04 Weight 77.11 kg (R); jd3 21:05 BP 135 / 70; Pulse 65; Resp 25 S; Pulse Ox 95% on 6 lpm NC; jd3 22:20 BP 100 / 49; Pulse 74; Resp 24 S; Pulse Ox 90% on 6 lpm NC; jd3 23:25 BP 105 / 48; Pulse 59; Resp 25 S; Pulse Ox 90% on 6 lpm NC; jd3 23:57 BP 107 / 48; Pulse 58; Resp 23 S; Pulse Ox 91% on 6 lpm NC; jd3 ED Course: 18:23 Patient arrived in ED. bp 18:24 Triage completed. bp 18:29 Horacio Gabriel, RN is Primary Nurse. bp 18:30 Arm band placed on. bp 18:30 Patient has correct armband on for positive identification. Bed in low position. Call bp light in reach. Side rails up X2. 18:35 Connie Stanton FNP-C is PHCP. snw 18:35 Reji Amaral MD is Attending Physician. snw 20:37 Chest Single View XRAY In Process Unspecified. EDMS 20:50 Initial lab(s) drawn, by me, sent to lab. First set of blood cultures drawn by me. mt2 Inserted saline lock: 20 gauge in right antecubital area, using aseptic technique. Blood collected. 21:29 Myrtle Levy MD is Hospitalizing Provider. snw 21:29 Blair cath inserted, using sterile technique, 16 Fr., by ED staff, balloon inflated, to jd3 gravity drainage, Patient tolerated well. 05/25 00:31 No provider procedures requiring assistance completed. Patient admitted, IV remains in jd3 place. Administered Medications: 05/24 21:00 Drug: fentaNYL (PF) 25 mcg Route: IVP; Site: right antecubital; jd3 22:00 Follow up: Response: No adverse reaction; RASS: Alert and Calm (0) jd3 21:03 Drug: Decadron - Dexamethasone 10 mg Route: IVP; Site: right antecubital; jd3 22:00 Follow up: Response: No adverse reaction jd3 21:28 Drug: Lasix 20 mg Route: IVP; Site: right antecubital; jd3 22:28 Follow up: Response: No adverse reaction jd3 Drug: Lovenox 1 mg/kg Route: Sub-Q; Site: abdomen; jd3 : Follow up: Response: No adverse reaction jd3 Drug: Zithromax 500 mg Route: IVPB; Infused Over: 1 hrs; Site: right antecubital; jd3 :45 Follow up: Response: No adverse reaction; IV Status: Completed infusion; IV Intake: jd3 250ml Intake: :45 IV: 250ml; Total: 250ml. jd3 Outcome: : Decision to Hospitalize by Provider. snw 05/25 00:32 Admitted to ICU accompanied by nurse, via stretcher, room 4, with oxygen, on monitor, jd3 with chart, Report called to Saad MORAN Condition: stable Instructed on the need for admit, Demonstrated understanding of instructions. 00:39 Patient left the ED. jd3 Signatures: Dispatcher [employer] EDMS Connie Stanton, [employer]-Ephraim Barragan RN RN jd3 Horacio Gabriel RN RN bp Cindy Rust RN RN mt2 Corrections: (The following items were deleted from the chart) 05/24 23:58 23:25 Reassessment: Patient appears in no apparent distress at this time. No changes jd3 from previously documented assessment. Patient and/or family updated on plan of care and expected duration. Pain level reassessed. jd3 05/25 00:31 05/24 19:41 Respiratory: Reports shortness of breath at rest cough that is persistent jd3 Airway is patent Respiratory effort is even, unlabored, Respiratory pattern is regular, symmetrical, jd3
[2020-05-24] MEDS ORDERED: NA CHLORIDE 0.9% 250 ML ONE (21:45)
[2020-05-24] MEDS ORDERED: AZITHROMYCIN 500 MG INJ IVPB ONE (21:45)
[2020-05-24] MEDS ORDERED: ONDANSETRON 4 MG/2 ML VIAL IV PRN (22:38)
[2020-05-24] MEDS ORDERED: ALBUTEROL INHALER 60 PUFF/8 GM IH PRN (22:38)
[2020-05-25] MEDS ORDERED: dexAMETHasone 10 MG/ML VIAL IV SCH (01:00)
[2020-05-25 01:44] VITALS: BMI 33.7
[2020-05-25] MEDS: ACETAMINOPHEN 325 MG TABLET PO SCH ×4 (01:58→18:27)
[2020-05-25 05:08] LABS: Absolute Lymphocytes (CBC) 0.9 K/uL (0.7-4.9); Basophils % 0.1 % (0-1.3); Hematocrit 36.9 % (36.0-45.0); Lymphocytes % 4.8 % (15.3-44.8); MPV 10.2 fL (7.6-11.3); RBC Red Blood Cell Count 4.17 M/uL (3.86-4.86)
[2020-05-25 05:20] LABS: Protime INR 1.09
[2020-05-25 05:29] LABS: ALT/SGPT 34 U/L (12-78); AST/SGOT 36 U/L (15-37); Albumin 2.6 g/dL (3.4-5.0); Alkaline Phosphatase 79 U/L (45-117); BUN Blood Urea Nitrogen 20 mg/dL (7-18); Bicarbonate 23 mmol/L (21-32); Bilirubin Total 0.5 mg/dL (0.2-1.0); Ferritin 216.1 ng/mL (8-388); Glucose Level 319 mg/dL (74-106); HDL Cholesterol 45 mg/dL (40-60); LDL Cholesterol, Calculated 79 (<130); Magnesium 1.8 mg/dL (1.8-2.4); NT PRO-BNP 1111 pg/mL (<125); Phosphorus 3.9 mg/dL (2.5-4.9); Potassium 3.8 mmol/L (3.5-5.1); Protein, Total 7.8 g/dL (6.4-8.2); Sodium Level 143 mmol/L (136-145); Thyroid Stimulating Hormone 0.241 uIU/mL (0.360-3.740); Troponin I < 0.02 ng/mL (0.0-0.045)
[2020-05-25] MEDS: ALBUTEROL INHALER 60 PUFF/8 GM IH SCH ×2 (06:00→10:01)
[2020-05-25] MEDS ORDERED: METHYLPREDNISOLONE 40 MG INJ IV SCH (06:00)
[2020-05-25] MEDS ORDERED: MAGNESIUM SULFATE 1 gm IVPB 1 GM/100 ML BAG IV ONE (06:48)
--- NOTE | 2020-05-25 08:48 | P.HP ---
Certification for Inpatient Patient admitted to: Inpatient With expected LOS: >2 Midnights Patient will require the following post-hospital care: None Practitioner: I am a practitioner with admitting privileges, knowledge of patient current condition, hospital course, and medical plan of care. Services: Services provided to patient in accordance with Admission requirements found in Title 42 Section 412.3 of the Code of Federal Regulations Patient History Date of Service: 05/24/20 Reason for admission: Respiratory distress History of Present Illness: patient is a 69-year-old female who has been diagnosed with COVID-19. Patient has had more respiratory distress over the last few days so she has come to the emergency room for further evaluation. In the emergency room she was found to be severely hypoxic and chest x-ray revealed diffuse infiltrates. Patient appears to have severe COVID-19 pneumonia. She will be admitted to the hospital for further evaluation. We have talked her about prone positioning as well as trying to use her inhaler regularly. We will also put her on nebs q.6 that she will be going to a negative pressure unit. Allergies ibuprofen [From Advil] Allergy (Verified 05/25/20 02:31) Unknown Home Medications: Aspirin [Aspirin EC 81 MG] 1 tab PO DAILY 05/25/20 Atorvastatin Calcium [Lipitor] 40 mg PO BEDTIME 05/25/20 Enalapril Maleate [Vasotec] 20 mg PO DAILY 05/25/20 Glipizide [Glipizide ER] 5 mg PO BID 05/25/20 Metformin HCl 1,000 mg PO BID 05/25/20 Omeprazole [Prilosec] 40 mg PO DAILY 05/25/20 - Past Medical/Surgical History Has patient received pneumonia vaccine in the past: Yes Diabetic: Yes -: Htn -: NIDDM -: Hyperlipdemia -: removal of pancreas - Family History Father Family History: Reviewed- Non-Contributory - Social History Smoking Status: Never smoker Alcohol use: No CD- Drugs: No Caffeine use: Yes Place of Residence: Home Review of Systems 10-point ROS is otherwise unremarkable Physical Examination - Vital Signs Temperature: 97.2 F Blood Pressure: 132/89 Pulse: 54 Respirations: 32 Pulse Ox (%): 93 - Physical Exam General: Alert, In no apparent distress, Oriented x3 HEENT: Atraumatic, PERRLA, Mucous membr. moist/pink, EOMI, Sclerae nonicteric Neck: Supple, 2+ carotid pulse no bruit, No LAD, Without JVD or thyroid abnormality Respiratory: Diminished, Crackles/rales, Expiratory wheezes Cardiovascular: Regular rate/rhythm, Normal S1 S2, No murmurs Gastrointestinal: Normal bowel sounds, Soft and benign, Non-distended, No tenderness, No rebound, No guarding Musculoskeletal: No clubbing, No tenderness Integumentary: No rashes Neurological: Normal gait, Normal speech, Normal strength at 5/5 x4 extr, Normal tone, Sensation intact, Cranial nerves 3-12 intact, Normal affect Lymphatics: No axilla or inguinal lymphadenopathy - Studies Laboratory Data (last 24 hrs) 05/24/20 20:22: PT 11.9, INR 1.01 05/24/20 20:22: WBC 13.6 H, Hgb 12.8, Hct 38.5, Plt Count 214 05/24/20 20:22: Sodium 143, Potassium 3.4 L, BUN 19 H, Creatinine 0.68, Glucose 189 H, Magnesium 1.9, Total Bilirubin 0.5, AST 42 H, ALT 39, Alkaline Phosphatase 84 Assessment & Plan - Problems (Diagnosis) (1) Pneumonia due to COVID-19 virus Current Visit: Yes Status: Acute (2) Respiratory distress Current Visit: Yes Status: Acute - Plan Plan: 1. treatment for standard of COVID-19 treatment; since on COVID unit, will also do nebulizer therapy; may also do diuresing as well. 2. high-dose IV steroids; monitor for GI and renal side effects 3. Zithromycin 250 mg IVPB daily 4. Lovenox 40 mg subcu daily; if high risk of PE then will need to do full dose Lovenox therapy 5. O2 per protocol; High-flow oxygen/BiPAP if necessary; pulmonary consultation 6. Check labs including ferritin, CRP, D-dimer, lactic acid, LDH, procalcitonin 7. Will need to discuss with family regarding code status 8. GI prophylaxis Discharge Plan: Home Plan to discharge in: Greater than 2 days - Advance Directives Does patient have a Living Will: No Does patient have a Durable POA for Healthcare: No - Code Status/Comfort Care Code Status Assessed: Yes Code Status: Full Code Critical Care: No Time Spent Managing PTS Care (In Minutes): 45
[2020-05-25] MEDS ORDERED: POTASSIUM CL SA 10 MEQ TAB PO ONE (09:00)
[2020-05-25] MEDS ORDERED: GUAIFENESIN/CODEINE 5ML UCUP PO SCH (09:00)
[2020-05-25] MEDS ORDERED: ENOXAPARIN 40 MG/0.4 ML SQ SCH (09:00)
[2020-05-25] MEDS ORDERED: HOME MED 1 EA UNK (Omeprazole [Prilosec] 40 MG) PO SCH (09:00)
[2020-05-25] MEDS ORDERED: AZITHROMYCIN IV 250 MG in NA CHLORIDE 0.9% 250 ML IVPB SCH ×2 (09:00→21:00)
[2020-05-25] MEDS ORDERED: ENOXAPARIN 100 MG/ML SYR SQ SCH (09:00)
[2020-05-25] MEDS ORDERED: FUROSEMIDE 20 MG/ 2ML VIAL IV SCH (09:00)
[2020-05-25] MEDS ORDERED: CEFTRIAXONE 1 GM/NS 50 ML 1 GM/50 ML BAG IV SCH (09:00)
--- NOTE | 2020-05-25 09:01 | P.PN ---
Subjective Date of Service: 05/25/20 Respiratory status slightly worsening as anticipated. Await Pulmonary consultation. May need to do echocardiogram as well. Review of Systems 10-point ROS is otherwise unremarkable Physical Examination - Vital Signs Temperature: 97.2 F Blood Pressure: 132/89 Pulse: 54 Respirations: 32 Pulse Ox (%): 93 - Physical Exam General: Alert, In no apparent distress, Oriented x3 Respiratory: Diminished, Crackles/rales Cardiovascular: Regular rate/rhythm, Normal S1 S2, No murmurs Gastrointestinal: Normal bowel sounds, Soft and benign, Non-distended, No tenderness Musculoskeletal: No tenderness Integumentary: No rashes Neurological: Normal speech, Normal tone, Normal affect Lymphatics: No axilla or inguinal lymphadenopathy - Studies Laboratory Data (last 24 hrs) 05/24/20 20:22: PT 11.9, INR 1.01 05/24/20 20:22: WBC 13.6 H, Hgb 12.8, Hct 38.5, Plt Count 214 05/24/20 20:22: Sodium 143, Potassium 3.4 L, BUN 19 H, Creatinine 0.68, Glucose 189 H, Magnesium 1.9, Total Bilirubin 0.5, AST 42 H, ALT 39, Alkaline Ph osphatase 84 Medications List Reviewed: Yes Assessment & Plan - Problems (Diagnosis) (1) Pneumonia due to COVID-19 virus Current Visit: Yes Status: Acute (2) Respiratory distress Current Visit: Yes Status: Acute - Plan Plan: 1. treatment for standard of COVID-19 treatment; since on COVID unit, will also do nebulizer therapy; may also do diuresing as well. 2. high-dose IV steroids; monitor for GI and renal side effects 3. Zithromycin 250 mg IVPB daily 4. Lovenox 40 mg subcu daily; if high risk of PE then will need to do full dose Lovenox therapy 5. O2 per protocol; High-flow oxygen/BiPAP if necessary; pulmonary consultation 6. Check labs including ferritin, CRP, D-dimer, lactic acid, LDH, procalcitonin 7. Will need to discuss with family regarding code status 8. GI prophylaxis - Advance Directives Does patient have a Living Will: No Does patient have a Durable POA for Healthcare: No - Code Status/Comfort Care Code Status: Full Code
[2020-05-25] MEDS: ASPIRIN EC 81 MG TAB PO SCH (09:58)
[2020-05-25] MEDS: PANTOPRAZOLE 40MG TABLET PO SCH (09:59)
[2020-05-25] MEDS: METHYLPREDNISOLONE 125 MG INJ IV SCH ×2 (09:59→18:00)
[2020-05-25] MEDS: CEFTRIAXONE/SWI 1gm 1 GM/10 ML SYR IV SCH (09:59)
[2020-05-25] MEDS ORDERED: ALBUTEROL 2.5 MG/3 ML NEB SOL NEB SCH (10:00)
[2020-05-25] MEDS ORDERED: IPRATROPIUM BROM 0.5MG/2.5ML NEB SCH (10:00)
[2020-05-25] MEDS ORDERED: GLUCAGON 1 MG/VIAL IM PRN (11:40)
[2020-05-25] MEDS ORDERED: D50W 25 GM/50 ML SYRINGE/VIAL IV PRN (11:40)
[2020-05-25] MEDS: INSULIN -REGULAR HUMAN 50 UNIT/0.5 ML ML SQ SCH ×3 (11:47→21:20)
[2020-05-25] MEDS ORDERED: METHYLPREDNISOLONE 125 MG INJ IV SCH (12:00)
--- NOTE | 2020-05-25 12:24 | P.CNS ---
Date of Consult: 05/25/20 (TV) Chief Complaint: Pneumonia due to Chan virus History of Present Illness: Age 69 Dx with COVID- 19 aw resp distress last few days Hypoxic with bilateraleral pneumonia. doing better today Allergies ibuprofen [From Advil] Allergy (Verified 05/25/20 02:31) Unknown Home Medications: Aspirin [Aspirin EC 81 MG] 1 tab PO DAILY 05/25/20 Atorvastatin Calcium [Lipitor] 40 mg PO BEDTIME 05/25/20 Enalapril Maleate [Vasotec] 20 mg PO DAILY 05/25/20 Glipizide [Glipizide ER] 5 mg PO BID 05/25/20 Metformin HCl 1,000 mg PO BID 05/25/20 Omeprazole [Prilosec] 40 mg PO DAILY 05/25/20 - Past Medical/Surgical History Diabetic: Yes -: Htn -: NIDDM -: Hyperlipdemia -: removal of pancreas - Family History Father Family History: Reviewed- Non-Contributory - Social History Alcohol use: No CD- Drugs: No Caffeine use: Yes Place of Residence: Home Physical Examination Temp Pulse Resp BP Pulse Ox 97.2 F 61 25 H 128/77 86 L 05/25/20 09:01 05/25/20 10:00 05/25/20 10:00 05/25/20 10:00 05/25/20 10:00 Laboratory Data (last 24 hrs) 05/24/20 20:22: PT 11.9, INR 1.01 05/24/20 20:22: WBC 13.6 H, Hgb 12.8, Hct 38.5, Plt Count 214 05/24/20 20:22: Sodium 143, Potassium 3.4 L, BUN 19 H, Creatinine 0.68, Glucose 189 H, Magnesium 1.9, Total Bilirubin 0.5, AST 42 H, ALT 39, Alkaline Phosphatase 84 - Problems (1) Pneumonia due to COVID-19 virus Current Visit: Yes Status: Acute Plan: Age 69 AW resp failure from COVID CXRY consistent with COVID. CW Steroids and MATH protocol Daily CRP and D Dimer levels Poss D/C Am on O2 94% 3 L/min Daily labs ordered.
[2020-05-25] MEDS: FUROSEMIDE 20 MG/ 2ML VIAL IV SCH (20:03)
[2020-05-25] MEDS: ENOXAPARIN 40 MG/0.4 ML SQ SCH (20:03)
[2020-05-25] MEDS: ATORVASTATIN 40 MG TAB PO SCH (20:03)
[2020-05-26] MEDS: ACETAMINOPHEN 325 MG TABLET PO SCH ×2 (00:02→07:53)
[2020-05-26] MEDS: METHYLPREDNISOLONE 125 MG INJ IV SCH ×4 (00:02→16:50)
[2020-05-26] MEDS: TEMAZEPAM 15 MG CAP PO PRN ×2 (00:44→23:51)
[2020-05-26 05:21] LABS: Ferritin 265.6 ng/mL (8-388); Magnesium 2.3 mg/dL (1.8-2.4); Potassium 3.7 mmol/L (3.5-5.1); Troponin I 0.02 ng/mL (0.0-0.045)
[2020-05-26] MEDS: GUAIFENESIN/CODEINE 5ML UCUP PO PRN (05:35)
--- NOTE | 2020-05-26 06:06 | P.PN ---
Subjective Date of Service: 05/26/20 Patient's symptoms continue to slowly worsen. Patient does appear to be a little more tachypneic. Patient instructed laying in prone position. This may help hypoxemia. Continue with IV steroids. Review of Systems 10-point ROS is otherwise unremarkable Physical Examination - Vital Signs Temperature: 97.7 F Blood Pressure: 130/61 Pulse: 52 Respirations: 26 Pulse Ox (%): 90 - Physical Exam General: Alert, In no apparent distress, Oriented x3 Respiratory: Diminished, Crackles/rales, Rhonchi/gurgles Cardiovascular: Regular rate/rhythm, Normal S1 S2, Systolic murmur Gastrointestinal: Normal bowel sounds, Soft and benign, Non-distended, No tenderness Musculoskeletal: No clubbing, No swelling, No tenderness - Studies Medications List Reviewed: Yes Assessment & Plan - Problems (Diagnosis) (1) Pneumonia due to COVID-19 virus Current Visit: Yes Status: Acute (2) Respiratory distress Current Visit: Yes Status: Acute - Plan Plan: 1. treatment for standard of COVID-19 treatment; since on COVID unit, will also do nebulizer therapy; may also do diuresing as well. 2. high-dose IV steroids; monitor for GI and renal side effects 3. Zithromycin 250 mg IVPB daily 4. Lovenox 40 mg subcu daily; if high risk of PE then will need to do full dose Lovenox therapy 5. O2 per protocol; High-flow oxygen/BiPAP if necessary; pulmonary consultation 6. Check labs including ferritin, CRP, D-dimer, lactic acid, LDH, procalcitonin 7. Will need to discuss with family regarding code status 8. GI prophylaxis - Advance Directives Does patient have a Living Will: No Does patient have a Durable POA for Healthcare: No - Code Status/Comfort Care Code Status: Full Code
[2020-05-26] MEDS: INSULIN -REGULAR HUMAN 50 UNIT/0.5 ML ML SQ SCH ×4 (07:52→20:32)
[2020-05-26] MEDS: FUROSEMIDE 20 MG/ 2ML VIAL IV SCH ×2 (07:55→20:31)
[2020-05-26] MEDS: PANTOPRAZOLE 40MG TABLET PO SCH (07:55)
[2020-05-26] MEDS: ENOXAPARIN 40 MG/0.4 ML SQ SCH ×2 (07:55→20:32)
[2020-05-26] MEDS: ASPIRIN EC 81 MG TAB PO SCH (07:55)
[2020-05-26] MEDS: CEFTRIAXONE/SWI 1gm 1 GM/10 ML SYR IV SCH (07:56)
[2020-05-26] MEDS ORDERED: POTASSIUM CL SA 10 MEQ TAB PO ONE (08:00)
[2020-05-26] MEDS: VITAMIN D 1000 UNIT TAB PO SCH (09:00)
--- NOTE | 2020-05-26 11:20 | P.PN ---
Subjective Date of Service: 05/26/20 Chief Complaint: Pneumonia due to Chan virus Subjective: Improving (Patient has respiratory failure still a little hypoxic CRP level has increased) Physical Examination - Vital Signs Temperature: 97.7 F Blood Pressure: 117/69 Pulse: 57 Respirations: 33 Pulse Ox (%): 93 - Studies Medications List Reviewed: Yes Assessment & Plan - Problems (Diagnosis) (1) Pneumonia due to COVID-19 virus Current Visit: Yes Status: Acute Plan: Respiratory failure CRP level has increased increase the dose of steroids white count is mildly elevated as suspected from the steroid still little tachypneic still requiring significant amount of oxygen
[2020-05-26] MEDS: LIDOCAINE 5% OINT 30 GM TUBE TOP SCH (12:06)
[2020-05-26] MEDS: ASCORBIC ACID 500 MG TABLET PO SCH ×2 (13:37→20:32)
[2020-05-26] MEDS: MELATONIN 3 MG TABLET PO SCH (20:31)
[2020-05-26] MEDS: ATORVASTATIN 40 MG TAB PO SCH (20:31)
[2020-05-26] MEDS: ACETAMINOPHEN 500 MG TAB PO PRN (20:35)
[2020-05-26] MEDS ORDERED: ATORVASTATIN 40 MG TAB PO SCH (21:00)
[2020-05-27] MEDS: METHYLPREDNISOLONE 125 MG INJ IV SCH ×3 (00:03→16:59)
[2020-05-27 05:14] LABS: Absolute Lymphocytes (CBC) 0.8 K/uL (0.7-4.9); Basophils % 0.3 % (0-1.3); Hematocrit 37.2 % (36.0-45.0); Lymphocytes % 6.4 % (15.3-44.8); MPV 10.5 fL (7.6-11.3); RBC Red Blood Cell Count 4.21 M/uL (3.86-4.86)
[2020-05-27 05:29] LABS: Magnesium 2.3 mg/dL (1.8-2.4); Phosphorus 3.4 mg/dL (2.5-4.9); Potassium 3.7 mmol/L (3.5-5.1)
[2020-05-27 05:38] LABS: Ferritin 288.6 ng/mL (8-388); Troponin I < 0.02 ng/mL (0.0-0.045)
[2020-05-27] MEDS: PANTOPRAZOLE 40MG TABLET PO SCH (08:09)
[2020-05-27] MEDS: VITAMIN D 1000 UNIT TAB PO SCH (08:09)
[2020-05-27] MEDS: ASPIRIN EC 81 MG TAB PO SCH (08:10)
[2020-05-27] MEDS: ASCORBIC ACID 500 MG TABLET PO SCH ×3 (08:10→20:22)
[2020-05-27] MEDS: ENOXAPARIN 40 MG/0.4 ML SQ SCH (08:10)
[2020-05-27] MEDS: INSULIN -REGULAR HUMAN 50 UNIT/0.5 ML ML SQ SCH ×4 (08:11→20:22)
[2020-05-27] MEDS: CEFTRIAXONE/SWI 1gm 1 GM/10 ML SYR IV SCH (08:12)
[2020-05-27] MEDS: FUROSEMIDE 20 MG/ 2ML VIAL IV SCH (08:12)
[2020-05-27] MEDS: LIDOCAINE 5% OINT 30 GM TUBE TOP SCH (08:18)
[2020-05-27] MEDS ORDERED: POTASSIUM CL SA 10 MEQ TAB PO ONE (09:00)
--- NOTE | 2020-05-27 09:10 | P.PN ---
Subjective Date of Service: 05/27/20 (TV) Chief Complaint: Pneumonia due to Chan virus Subjective: Improving (Doing better NC) Physical Examination - Vital Signs Temperature: 98.4 F Blood Pressure: 131/62 Pulse: 52 Respirations: 29 Pulse Ox (%): 93 - Studies Medications List Reviewed: Yes Assessment & Plan - Problems (Diagnosis) (1) Pneumonia due to COVID-19 virus Current Visit: Yes Status: Acute Plan: Improving. Reduce solumedrol. CRP 65 decreased by 50%. Titrate O2 doen to nasal cannula / plan for discahrge Fully anticagulate. Add spironolactone DC IV lasix
[2020-05-27 10:33] LABS: Blood Morphology Comment NOT SEEN (NOT SEEN); Platelet Estimate ADEQ
[2020-05-27] MEDS: SPIRONOLACTONE 25 MG TABLET PO SCH (11:47)
[2020-05-27] MEDS: APIXABAN 2.5 MG TABLET PO SCH ×2 (11:47→20:21)
[2020-05-27] MEDS: ATORVASTATIN 40 MG TAB PO SCH (20:21)
[2020-05-27] MEDS: TEMAZEPAM 15 MG CAP PO PRN (20:21)
[2020-05-27] MEDS: ACETAMINOPHEN 500 MG TAB PO PRN (20:21)
[2020-05-27] MEDS: MELATONIN 3 MG TABLET PO SCH (20:21)
[2020-05-28] MEDS: METHYLPREDNISOLONE 125 MG INJ IV SCH ×2 (00:51→08:14)
[2020-05-28 05:59] LABS: ALT/SGPT 25 U/L (12-78); AST/SGOT 25 U/L (15-37); Albumin 2.2 g/dL (3.4-5.0); Alkaline Phosphatase 66 U/L (45-117); BUN Blood Urea Nitrogen 35 mg/dL (7-18); Bicarbonate 28 mmol/L (21-32); Bilirubin Total 0.6 mg/dL (0.2-1.0); Glucose Level 202 mg/dL (74-106); Potassium 3.6 mmol/L (3.5-5.1); Protein, Total 7.3 g/dL (6.4-8.2); Sodium Level 142 mmol/L (136-145)
[2020-05-28 06:01] LABS: C-Reactive Protein 29.5 mg/L (<3.00); Ferritin 285.8 ng/mL (8-388)
[2020-05-28] MEDS: INSULIN -REGULAR HUMAN 50 UNIT/0.5 ML ML SQ SCH ×4 (07:30→20:14)
[2020-05-28] MEDS ORDERED: AMPICILLIN/SULBACT 3 GM in NA CHLORIDE 0.9% 100 ML IVPB SCH (08:00)
[2020-05-28] MEDS: APIXABAN 2.5 MG TABLET PO SCH ×2 (08:15→19:51)
[2020-05-28] MEDS: ASPIRIN EC 81 MG TAB PO SCH (08:15)
[2020-05-28] MEDS: SPIRONOLACTONE 25 MG TABLET PO SCH (08:18)
[2020-05-28] MEDS: PANTOPRAZOLE 40MG TABLET PO SCH (08:19)
[2020-05-28] MEDS: ASCORBIC ACID 500 MG TABLET PO SCH ×3 (08:20→19:50)
[2020-05-28] MEDS: VITAMIN D 1000 UNIT TAB PO SCH (08:31)
[2020-05-28] MEDS: LIDOCAINE 5% OINT 30 GM TUBE TOP SCH ×2 (09:00→19:50)
[2020-05-28] MEDS ORDERED: POTASSIUM CL SA 10 MEQ TAB PO ONE (09:00)
--- NOTE | 2020-05-28 09:56 | P.PN ---
Subjective Date of Service: 05/28/20 Chief Complaint: Pneumonia due to Chan virus Subjective: Improving (Patient is doing better nasal cannula oxygen still has desaturation on exertion) Physical Examination - Vital Signs Temperature: 97.7 F Blood Pressure: 103/46 Pulse: 53 Respirations: 17 Pulse Ox (%): 92 - Studies Medications List Reviewed: Yes Assessment & Plan - Problems (Diagnosis) (1) Pneumonia due to COVID-19 virus Current Visit: Yes Status: Acute Plan: Doing better saturation satisfactory that of for home O2 Dc antibiotic white count is elevated from steroids CRP is down significantly reduce the dose of steroids
[2020-05-28] MEDS: MELATONIN 3 MG TABLET PO SCH (19:50)
[2020-05-28] MEDS: ATORVASTATIN 40 MG TAB PO SCH (19:51)
[2020-05-28] MEDS ORDERED: METHYLPREDNISOLONE 40 MG INJ IV SCH (21:00)
[2020-05-28] MEDS: TEMAZEPAM 15 MG CAP PO PRN (22:50)
--- NOTE | 2020-05-29 02:32 | P.PN ---
Subjective Date of Service: 05/27/20 Patient on high-flow oxygen. Starting to decrease settings. Slowly starting to improve. Continue with IV steroids. Review of Systems 10-point ROS is otherwise unremarkable Physical Examination - Vital Signs Temperature: 97.7 F Blood Pressure: 133/75 Pulse: 63 Respirations: 26 Pulse Ox (%): 92 - Physical Exam General: Alert, In no apparent distress, Oriented x3 Respiratory: Clear to auscultation bilaterally, Normal air movement Cardiovascular: Regular rate/rhythm, Normal S1 S2, No murmurs Gastrointestinal: Normal bowel sounds, Soft and benign, Non-distended, No tenderness Musculoskeletal: No clubbing, No swelling, No tenderness Neurological: Sensation intact, Cranial nerves 3-12 intact - Studies Medications List Reviewed: Yes Assessment & Plan - Problems (Diagnosis) (1) Pneumonia due to COVID-19 virus Current Visit: Yes Status: Acute (2) Respiratory distress Current Visit: Yes Status: Acute (3) Dental caries Current Visit: Yes Status: Acute - Plan Plan: 1. Continue with IV steroids and supportive care for medications for cough and dyspnea. 2. Continue with antibiotics intravenously 3. Continue with Lovenox subq daily 4. Titrate down from high-flow oxygen O2 5. Check labs including ferritin, CRP, D-dimer, lactic acid, LDH, procalcitonin 6. GI prophylaxis Discharge Plan: Home Plan to discharge in: Greater than 2 days - Advance Directives Does patient have a Living Will: No Does patient have a Durable POA for Healthcare: No - Code Status/Comfort Care Code Status: Full Code Critical Care: No Time Spent Managing PTS Care (In Minutes): 30
--- NOTE | 2020-05-29 02:41 | P.PN ---
Subjective Date of Service: 05/28/20 Significant decrease and high-flow settings. Patient is feeling much better. Oxygen saturations are improving. Review of Systems 10-point ROS is otherwise unremarkable Physical Examination - Vital Signs Temperature: 97.7 F Blood Pressure: 133/75 Pulse: 63 Respirations: 26 Pulse Ox (%): 92 - Physical Exam General: Alert, In no apparent distress, Oriented x3 HEENT: Other (Left-sided dental pain-left upper molar) Respiratory: Diminished, Rhonchi/gurgles (Left lower lobe) Cardiovascular: Regular rate/rhythm, Normal S1 S2, No murmurs Gastrointestinal: Normal bowel sounds, Soft and benign, Non-distended, No tenderness Musculoskeletal: No clubbing, No swelling, No tenderness Neurological: Sensation intact, Cranial nerves 3-12 intact - Studies Medications List Reviewed: Yes Assessment & Plan - Problems (Diagnosis) (1) Pneumonia due to COVID-19 virus Current Visit: Yes Status: Acute (2) Respiratory distress Current Visit: Yes Status: Acute (3) Dental caries Current Visit: Yes Status: Acute - Plan Plan: Continue with current plan of care as mentioned below 1. Continue with IV steroids and continue with supportive care for medications for cough and dyspnea. 2. Continue with antibiotics intravenously; make sure patient cover with Zithromax and then with anaerobes for dental caries 3. Continue with Lovenox subq daily 4. Still working on arranging for home oxygen 5. Inflammatory markers are improved. Anticipate discharge home soon 6. GI prophylaxis Discharge Plan: Home Plan to discharge in: 48 Hours - Advance Directives Does patient have a Living Will: No Does patient have a Durable POA for Healthcare: No - Code Status/Comfort Care Code Status: Full Code Critical Care: No Time Spent Managing PTS Care (In Minutes): 30
[2020-05-29 05:25] LABS: C-Reactive Protein 15.7 mg/L (<3.00); Potassium 4.8 mmol/L (3.5-5.1)
[2020-05-29 06:00] LABS: Absolute Lymphocytes (CBC) 0.7 K/uL (0.7-4.9); Basophils % 0.2 % (0-1.3); Hematocrit 38.4 % (36.0-45.0); Lymphocytes % 7.4 % (15.3-44.8); MPV 10.8 fL (7.6-11.3); RBC Red Blood Cell Count 4.32 M/uL (3.86-4.86)
[2020-05-29] MEDS ORDERED: D50W 25 GM/50 ML SYRINGE/VIAL IV PRN (08:53)
[2020-05-29] MEDS ORDERED: GLUCAGON 1 MG/VIAL IM PRN (08:53)
--- NOTE | 2020-05-29 08:57 | P.PN ---
Subjective Date of Service: 05/29/20 Chief Complaint: Pneumonia due to Chan virus Subjective: Improving (Improving still requiring to 5 L of nasal cannula oxygen shortness of breath on mild exertion) Physical Examination - Vital Signs Temperature: 97.3 F Blood Pressure: 120/74 Pulse: 47 Respirations: 21 Pulse Ox (%): 94 - Physical Exam General: Alert, Cooperative - Studies Medications List Reviewed: Yes Assessment & Plan - Problems (Diagnosis) (1) Pneumonia due to COVID-19 virus Current Visit: Yes Status: Acute Plan: Patient admitted with respiratory failure secondary to coronal virus is improving CRP is less than 20 blood sugars elevated I have added NPH 70 30 D- dimers are also declining possible discharge an oxygen and prednisone in addition to multi vitamin supplements an anticoagulation
[2020-05-29] MEDS: VITAMIN D 1000 UNIT TAB PO SCH (09:00)
[2020-05-29] MEDS: GUAIFENESIN/CODEINE 5ML UCUP PO PRN (09:07)
[2020-05-29] MEDS: APIXABAN 2.5 MG TABLET PO SCH ×2 (09:08→20:43)
[2020-05-29] MEDS: PANTOPRAZOLE 40MG TABLET PO SCH (09:08)
[2020-05-29] MEDS: LIDOCAINE 5% OINT 30 GM TUBE TOP SCH (09:08)
[2020-05-29] MEDS: METHYLPREDNISOLONE 40 MG INJ IV SCH ×2 (09:09→20:44)
[2020-05-29] MEDS: INSULIN -REGULAR HUMAN 50 UNIT/0.5 ML ML SQ SCH ×4 (09:11→20:44)
[2020-05-29] MEDS: SPIRONOLACTONE 25 MG TABLET PO SCH (09:12)
[2020-05-29] MEDS: ASCORBIC ACID 500 MG TABLET PO SCH ×3 (09:13→20:43)
[2020-05-29] MEDS: ASPIRIN EC 81 MG TAB PO SCH (09:21)
--- NOTE | 2020-05-29 09:36 | P.PN ---
Subjective Date of Service: 05/29/20 Chief Complaint: Pneumonia due to Chan virus Patient remains slightly hypoxic. However we have got her off of high-flow oxygen and patient is on nasal cannula. On 6 L and when we dropped to 4 L patient assessed to 85%. Slowly continue to wean patient off and anticipate discharge tomorrow Review of Systems 10-point ROS is otherwise unremarkable Physical Examination - Vital Signs Temperature: 97.3 F Blood Pressure: 120/74 Pulse: 47 Respirations: 21 Pulse Ox (%): 94 - Physical Exam General: Alert, In no apparent distress, Oriented x3 Respiratory: Clear to auscultation bilaterally, Normal air movement Cardiovascular: Regular rate/rhythm, Normal S1 S2, No murmurs Gastrointestinal: Normal bowel sounds, Soft and benign, Non-distended, No tenderness Musculoskeletal: No clubbing, No swelling, No tenderness Neurological: Sensation intact, Cranial nerves 3-12 intact Lymphatics: No axilla or inguinal lymphadenopathy - Studies Medications List Reviewed: Yes Assessment & Plan - Problems (Diagnosis) (1) Pneumonia due to COVID-19 virus Current Visit: Yes Status: Acute (2) Respiratory distress Current Visit: Yes Status: Acute (3) Dental caries Current Visit: Yes Status: Acute - Plan Plan: Continue with current plan of care as mentioned below 1. Continue with IV steroids and continue with supportive care for medications for cough and dyspnea. 2. Continue with antibiotics intravenously; make sure patient cover with Zithromax and then with anaerobes for dental caries 3. Continue with Lovenox subq daily; DC on low dose eliquis x 1-2 weeks 4. Arranging home oxygen 5. Inflammatory markers are improved. Anticipate discharge home 24-48hrs; she really needs to start ambulating and using IS Discharge Plan: Home Plan to discharge in: Greater than 2 days - Advance Directives Does patient have a Living Will: No Does patient have a Durable POA for Healthcare: No - Code Status/Comfort Care Code Status: Full Code Critical Care: No Time Spent Managing PTS Care (In Minutes): 45
[2020-05-29] MEDS: INSULIN 70/30 100 UNITS/ML SQ SCH (16:30)
[2020-05-29] MEDS: MELATONIN 3 MG TABLET PO SCH (20:44)
[2020-05-29] MEDS: ATORVASTATIN 40 MG TAB PO SCH (20:44)
[2020-05-30] MEDS: LIDOCAINE 5% OINT 30 GM TUBE TOP SCH (09:00)
[2020-05-30] MEDS: ASCORBIC ACID 500 MG TABLET PO SCH ×3 (09:00→20:27)
[2020-05-30] MEDS: PANTOPRAZOLE 40MG TABLET PO SCH (09:00)
[2020-05-30] MEDS: VITAMIN D 1000 UNIT TAB PO SCH (09:00)
[2020-05-30 10:22] LABS: Hematocrit 39.7 % (36.0-45.0); MPV 10.6 fL (7.6-11.3); RBC Red Blood Cell Count 4.48 M/uL (3.86-4.86)
[2020-05-30 10:52] LABS: BUN Blood Urea Nitrogen 26 mg/dL (7-18); Bicarbonate 27 mmol/L (21-32); Ferritin 305.9 ng/mL (8-388); Glucose Level 197 mg/dL (74-106); Potassium 4.2 mmol/L (3.5-5.1); Sodium Level 143 mmol/L (136-145)
[2020-05-30] MEDS: METHYLPREDNISOLONE 40 MG INJ IV SCH ×2 (11:18→20:27)
[2020-05-30] MEDS: GUAIFENESIN/CODEINE 5ML UCUP PO PRN (11:18)
[2020-05-30] MEDS: INSULIN 70/30 100 UNITS/ML SQ SCH ×2 (11:20→12:00)
[2020-05-30] MEDS ORDERED: METHYLPREDNISOLONE 125 MG INJ IV ONE (11:24)
[2020-05-30] MEDS: INSULIN -REGULAR HUMAN 50 UNIT/0.5 ML ML SQ SCH ×4 (11:25→20:28)
--- NOTE | 2020-05-30 11:26 | P.PN ---
Subjective Date of Service: 05/30/20 Chief Complaint: Pneumonia due to Chan virus Subjective: Improving (Patient is improving still requiring more than 4 L of nasal cannula oxygen) Physical Examination - Vital Signs Temperature: 97.3 F Blood Pressure: 124/58 Pulse: 59 Respirations: 27 Pulse Ox (%): 89 - Studies Microbiology Data (last 24 hrs): 05/24/20 20:58 Blood - Blood Aerobic Blood Culture - Final No growth in 5 days. 05/24/20 20:58 Blood - Blood Anaerobic Blood Culture - Final No growth in 5 days. 05/24/20 20:22 Blood - Blood Aerobic Blood Culture - Final No growth in 5 days. 05/24/20 20:22 Blood - Blood Anaerobic Blood Culture - Final No growth in 5 days. Medications List Reviewed: Yes Assessment & Plan - Problems (Diagnosis) (1) Pneumonia due to COVID-19 virus Current Visit: Yes Status: Acute Plan: Patient is steadily improving having given her additional dose of Solu-Medrol today CRP is declined to 12.4 continue to mod number monitor possible discharge tomorrow once she is weaned down to 4 L increase prophylactic anticoagulant dose of Eliquis 5 mg twice a day increase NPH insulin
[2020-05-30] MEDS: ASPIRIN EC 81 MG TAB PO SCH (11:36)
[2020-05-30] MEDS: SPIRONOLACTONE 25 MG TABLET PO SCH (11:37)
--- NOTE | 2020-05-30 12:14 | P.PN ---
Subjective Date of Service: 05/30/20 Chief Complaint: Pneumonia due to Chan virus Subjective: Other (Patient appears comfortable. She is still requiring 4 L of oxygen via nasal cannula. Unable to be weaned down to 3 L today. She will stay 1 more day in the ICU.) Physical Examination - Vital Signs Temperature: 97.3 F Blood Pressure: 124/58 Pulse: 59 Respirations: 27 Pulse Ox (%): 89 - Physical Exam General: In no apparent distress, Cooperative, Other (Lethargic) HEENT: Atraumatic, Normocephalic, EOMI Neck: Supple, 2+ carotid pulse no bruit Respiratory: Crackles/rales (Crackles in both lung [place]) Cardiovascular: Normal pulses, Regular rate/rhythm, Normal S1 S2, Other (Bradycardic) Gastrointestinal: Normal bowel sounds, Soft and benign, Non-distended, No tenderness Musculoskeletal: No clubbing, No swelling, No contractures, No erythema, No tenderness, No warmth Neurological: Normal speech, Sensation intact, Normal affect - Studies Microbiology Data (last 24 hrs): 05/24/20 20:58 Blood - Blood Aerobic Blood Culture - Final No growth in 5 days. 05/24/20 20:58 Blood - Blood Anaerobic Blood Culture - Final No growth in 5 days. 05/24/20 20:22 Blood - Blood Aerobic Blood Culture - Final No growth in 5 days. 05/24/20 20:22 Blood - Blood Anaerobic Blood Culture - Final No growth in 5 days. Medications List Reviewed: Yes Assessment & Plan - Problems (Diagnosis) (1) Acute hypoxemic respiratory failure due to COVID-19 Current Visit: Yes Status: Acute (2) Hypertension Current Visit: Yes Status: Acute (3) Type II diabetes mellitus Current Visit: Yes Status: Acute (4) Hyperlipidemia Current Visit: Yes Status: Acute (5) Pneumonia due to COVID-19 virus Current Visit: Yes Status: Acute (6) Bradycardia Current Visit: Yes Status: Acute Physician Review Additional Text: Assessment Patient is a 69-year-old female WITH a PMH of HTN, DM-2, and HLD currently admitted in ICU with acute hypoxemic respiratory failure secondary to call that 19 pneumonia. She is progressing well. She is staying in the ICU 1 more day as we're unable to wean her down to 3 L of oxygen via nasal cannula. Acute hypoxemic respiratory failure COVID 19 PNA HTN HLD Type II diabetes mellitus PLAN: Continue ICU stay for respiratory monitoring and supplemental oxygen Continue Solu-Medrol Full dose anticoagulation with apixaban Vitamin B1, vitamin-C and zinc Continue NPH insulin and sliding scale for steroid-induced hyperglycemia Check HbA1c I will order an EKG for bradycardia
[2020-05-30] MEDS: APIXABAN 2.5 MG TABLET PO SCH (12:37)
[2020-05-30] MEDS: ZINC SULFATE 220 MG CAP PO SCH (13:13)
[2020-05-30] MEDS: THIAMINE HCL 100 MG TABLET PO SCH (13:13)
[2020-05-30] MEDS: MELATONIN 3 MG TABLET PO SCH (20:27)
[2020-05-30] MEDS: ATORVASTATIN 40 MG TAB PO SCH (20:27)
[2020-05-30] MEDS: APIXABAN 5 MG TABLET PO SCH (20:28)
[2020-05-31] MEDS: INSULIN -REGULAR HUMAN 50 UNIT/0.5 ML ML SQ SCH ×4 (08:07→21:00)
[2020-05-31] MEDS: ZINC SULFATE 220 MG CAP PO SCH (08:08)
[2020-05-31] MEDS: INSULIN 70/30 100 UNITS/ML SQ SCH ×2 (08:08→16:40)
[2020-05-31] MEDS: THIAMINE HCL 100 MG TABLET PO SCH (08:08)
[2020-05-31] MEDS: ASCORBIC ACID 500 MG TABLET PO SCH ×3 (08:08→20:10)
[2020-05-31] MEDS: APIXABAN 5 MG TABLET PO SCH ×2 (08:08→20:10)
[2020-05-31] MEDS: VITAMIN D 1000 UNIT TAB PO SCH (08:08)
[2020-05-31] MEDS: ASPIRIN EC 81 MG TAB PO SCH (08:09)
[2020-05-31] MEDS: METHYLPREDNISOLONE 40 MG INJ IV SCH ×2 (08:09→20:11)
[2020-05-31] MEDS: SPIRONOLACTONE 25 MG TABLET PO SCH (08:09)
[2020-05-31] MEDS: PANTOPRAZOLE 40MG TABLET PO SCH (08:09)
[2020-05-31] MEDS ORDERED: NITROGLYCERIN 0.4 MG/TAB SL ONE ×2 (13:34→14:00)
[2020-05-31] MEDS ORDERED: Ringers Lactate 500 ML IV ONE (13:39)
--- NOTE | 2020-05-31 15:16 | P.PN ---
Subjective Date of Service: 05/31/20 Chief Complaint: Pneumonia due to Chan virus Subjective: Worsening (Patient complained of chest pain while she was being evaluated for discharge. Found to have hypotension with SBP in the 80. BP partially improved with IVF challenge. First trop negative) Physical Examination - Vital Signs Temperature: 98.2 F Blood Pressure: 96/49 Pulse: 62 Respirations: 22 Pulse Ox (%): 92 - Physical Exam General: Cooperative, Mild distress, Other (Lethargic) HEENT: Atraumatic, Normocephalic, EOMI Neck: Supple Respiratory: Clear to auscultation bilaterally, Normal air movement Cardiovascular: No edema, Normal pulses, Regular rate/rhythm, Normal S1 S2 Gastrointestinal: Normal bowel sounds, Soft and benign, Non-distended, No tenderness Musculoskeletal: No clubbing, No swelling, No contractures, No erythema, No tenderness, No warmth Neurological: Normal speech, Sensation intact, Normal affect - Studies Medications List Reviewed: Yes Assessment & Plan - Problems (Diagnosis) (1) Acute hypoxemic respiratory failure due to COVID-19 Current Visit: Yes Status: Acute (2) Hypertension Current Visit: Yes Status: Acute (3) Type II diabetes mellitus Current Visit: Yes Status: Acute (4) Hyperlipidemia Current Visit: Yes Status: Acute (5) Pneumonia due to COVID-19 virus Current Visit: Yes Status: Acute (6) Bradycardia Current Visit: Yes Status: Acute Physician Review Additional Text: Assessment Patient is a 69-year-old female WITH a PMH of HTN, DM-2, and HLD downgraded from ICU after management of acute hypoxemic respiratory failure secondary to COVID 19 pneumonia. She has done well and was being evaluated when she complained of sudden chest pain. Stat vital her IVs was hypotensive with SBP in 80s. Blood pressure improved with a bolus of IV fluid. Her EKG was significant for sinus Bradycardia, PVCs and possible T-wave inversions. 1st troponin is negative. Medication reconciliation was not show any AV dave blocking agents. Discharge canceled pending further workup Chest pain Acute hypoxemic respiratory failure COVID 19 PNA HTN HLD Type II diabetes mellitus PLAN: Check orthostatic vitals Volume repletion as needed Follow up CXR, troponin and EKG Follow up lactic acid Consult Cardiology Continue COVID 19 treatment with Continue Solu-Medrol, full dose anticoagulation with apixaban, vitamin B1, vitamin-C and zinc Continue NPH insulin and sliding scale for steroid-induced hyperglycemia
--- NOTE | 2020-05-31 16:11 | RAD REPORT ---
EXAM DESCRIPTION: RAD - Chest Single View - 05/31/2020 3:44 pm CLINICAL HISTORY: chest pain, history of positive COVID-19 test. COMPARISON: May 24 TECHNIQUE: AP portable chest image was obtained 05/31/2020 3:44 pm . FINDINGS: Bilateral interstitial and alveolar opacification is present. Pattern is minimally improve d from the May 24 imaging. Heart size is normal range, decreased from comparison. Vasculature also a ppears diminished. No measurable pleural effusion and no pneumothorax. No acute bony abnormality seen . No acute aortic findings suspected. IMPRESSION: Bilateral pneumonia pattern has improved but significant disease remains. Vascular engorgement and cardiomegaly have also shown some degree of improvement.
[2020-05-31 16:22] LABS: Magnesium 2.2 mg/dL (1.8-2.4)
[2020-05-31 16:39] LABS: Thyroid Stimulating Hormone 0.243 uIU/mL (0.360-3.740)
[2020-05-31] MEDS ORDERED: Ringers Lactate 1,000 ML IV ONE (17:26)
[2020-05-31] MEDS: Ringers Lactate 1,000 ML IV SCH (18:35)
[2020-05-31] MEDS: ATORVASTATIN 40 MG TAB PO SCH (20:10)
[2020-05-31] MEDS: MELATONIN 3 MG TABLET PO SCH (20:10)
[2020-05-31] MEDS: TEMAZEPAM 15 MG CAP PO PRN (20:14)
[2020-06-01] MEDS: Ringers Lactate 1,000 ML IV SCH ×2 (03:50→17:16)
[2020-06-01] MEDS: METHYLPREDNISOLONE 40 MG INJ IV SCH ×2 (08:02→20:40)
[2020-06-01] MEDS: VITAMIN D 1000 UNIT TAB PO SCH (08:10)
[2020-06-01] MEDS: ZINC SULFATE 220 MG CAP PO SCH (08:11)
[2020-06-01] MEDS: PANTOPRAZOLE 40MG TABLET PO SCH (08:11)
[2020-06-01] MEDS: ASCORBIC ACID 500 MG TABLET PO SCH ×3 (08:11→20:39)
[2020-06-01] MEDS: APIXABAN 5 MG TABLET PO SCH ×2 (08:11→20:40)
[2020-06-01] MEDS: THIAMINE HCL 100 MG TABLET PO SCH (08:11)
[2020-06-01] MEDS: ASPIRIN EC 81 MG TAB PO SCH (08:11)
[2020-06-01] MEDS: INSULIN 70/30 100 UNITS/ML SQ SCH ×2 (08:12→17:11)
[2020-06-01] MEDS: INSULIN -REGULAR HUMAN 50 UNIT/0.5 ML ML SQ SCH ×4 (08:12→20:38)
[2020-06-01] MEDS ORDERED: Ringers Lactate 1,000 ML IV ONE (09:48)
[2020-06-01] MEDS: MIDODRINE HCL 5 MG TABLET PO SCH ×2 (13:57→20:39)
--- NOTE | 2020-06-01 16:23 | P.DS ---
Admission Date: 05/24/20 Discharge Date: 06/01/20 Disposition: DC HOME/HOME HEALTH CARE Discharge Condition: GOOD Reason for Admission: Pneumonia due to Chan virus - Problems (1) Acute hypoxemic respiratory failure due to COVID-19 Current Visit: Yes Status: Acute (2) Hypertension Current Visit: Yes Status: Acute (3) Type II diabetes mellitus Current Visit: Yes Status: Acute (4) Hyperlipidemia Current Visit: Yes Status: Acute (5) Pneumonia due to COVID-19 virus Current Visit: Yes Status: Acute (6) Bradycardia Current Visit: Yes Status: Acute Hospital Course: Patient is a 69-year-old Mongolian-speaking female with a past medical history of hypertension who was admitted to the hospital with acute hypoxemic respiratory failure secondary to COVID 19 pneumonia. She was in the ICU a she required high amount of oxygen. No intubation was needed. She has been successfully downgraded to floor as she was transferred to nasal cannula oxygen. Her discharged was cancelled yesterday as she complained of chest pain. She was bradycardic and hypotensive. ACS was ruled out. She had orthostatic hypotension. Cardiology was consulted. She received IVF infusion but was still orthostatic. She will be discharged on midodrine. She will follow up with Cardiology in 1 week. Vital Signs/Physical Exam: Temp Pulse Resp BP Pulse Ox 98.7 F 49 L 28 H 126/74 91 06/01/20 12:00 06/01/20 12:00 06/01/20 12:00 06/01/20 12:00 06/01/20 12:00 General: In no apparent distress, Cooperative HEENT: Atraumatic, Normocephalic, EOMI Neck: Supple Respiratory: Crackles/rales, Other (bilateral crackles. No wheezing) Cardiovascular: No edema, Normal S1 S2, Other (bradycardic) Gastrointestinal: Normal bowel sounds, Soft and benign, Non-distended, No ascites Musculoskeletal: No clubbing, No swelling, No contractures, No erythema, No tenderness, No warmth Neurological: Normal speech, Normal tone, Sensation intact, Normal affect Laboratory Data at Discharge: WBC 8.0 K/uL (4.3-10.9) 05/30/20 09:43 Hgb 13.2 g/dL (12.0-15.0) 05/30/20 09:43 Hct 39.7 % (36.0-45.0) 05/30/20 09:43 Plt Count 286 K/uL (152-406) 05/30/20 09:43 PT 12.8 SECONDS (9.5-12.5) H 05/25/20 04:16 INR 1.09 05/25/20 04:16 APTT 31.5 SECONDS (24.3-36.9) 05/25/20 04:16 Sodium 143 mmol/L (136-145) 05/31/20 15:51 Potassium 4.0 mmol/L (3.5-5.1) 05/31/20 15:51 BUN 30 mg/dL (7-18) H 05/31/20 15:51 Creatinine 0.75 mg/dL (0.55-1.3) 05/31/20 15:51 Glucose 135 mg/dL (74-106) H 05/31/20 15:51 Phosphorus 3.4 mg/dL (2.5-4.9) 05/27/20 04:45 Magnesium 2.2 mg/dL (1.8-2.4) 05/31/20 15:51 Total Bilirubin 0.6 mg/dL (0.2-1.0) 05/28/20 04:34 AST 25 U/L (15-37) 05/28/20 04:34 ALT 25 U/L (12-78) 05/28/20 04:34 Alkaline Phosphatase 66 U/L (45-117) 05/28/20 04:34 Troponin I < 0.02 ng/mL (0.0-0.045) 06/01/20 05:30 Triglycerides 118 mg/dL (<150) 05/25/20 04:16 Cholesterol 148 mg/dL (<200) 05/25/20 04:16 HDL Cholesterol 45 mg/dL (40-60) 05/25/20 04:16 Cholesterol/HDL Ratio 3.29 05/25/20 04:16 Home Medications: Aspirin [Aspirin EC 81 MG] 1 tab PO DAILY 05/25/20 Atorvastatin Calcium [Lipitor] 40 mg PO BEDTIME 05/25/20 Enalapril Maleate [Vasotec] 20 mg PO DAILY 05/25/20 Glipizide [Glipizide ER] 5 mg PO BID 05/25/20 Metformin HCl 1,000 mg PO BID 05/25/20 Omeprazole [Prilosec] 40 mg PO DAILY 05/25/20 Albuterol Inhaler [Ventolin Inhaler*] 2 puff IH Q6H PRN #1 hfa.aer.ad 05/29/20 Apixaban [Eliquis *] 2.5 mg PO BID #60 tablet 05/29/20 Azithromycin [Zithromax] 250 mg PO DAILY #5 tablet 05/29/20 Benzonatate [Tessalon Perle] 200 mg PO TID PRN #30 cap 05/29/20 Guaifen W/Codeine Syrup [ROBITUSSIN A-C Syrup*] 10 ml PO BID PRN #100 ml 05/29/20 Spironolactone [Aldactone*] 25 mg PO DAILY #30 tab 05/29/20 predniSONE [Prednisone*] 20 mg PO SEECOM #20 tab 05/29/20 Apixaban [Eliquis] 5 mg PO BID #14 tablet 06/01/20 Ascorbic Acid [Vitamin C*] 500 mg PO TID #21 tablet 06/01/20 Insulin 70/30 NPH/Reg Human [Novolin 70/30*] 20 unit SQ BIDAC ml 06/01/20 Melatonin [Melatonin*] 3 mg PO BEDTIME tablet 06/01/20 Midodrine HCl [Proamatine*] 5 mg PO TID #30 tab 06/01/20 Thiamine HCl [Vitamin B-1*] 100 mg PO DAILY #15 tablet 06/01/20 Zinc Sulfate [Zinc Sulfate*] 220 mg PO DAILY #15 cap 06/01/20 New Medications: Spironolactone [Aldactone*] 25 mg PO DAILY #30 tab Apixaban [Eliquis] 5 mg PO BID #14 tablet Apixaban [Eliquis *] 2.5 mg PO BID #60 tablet predniSONE [Prednisone*] 20 mg PO SEECOM #20 tab Midodrine HCl [Proamatine*] 5 mg PO TID #30 tab Guaifen W/Codeine Syrup [ROBITUSSIN A-C Syrup*] 10 ml PO BID PRN #100 ml PRN Reason: Cough Benzonatate [Tessalon Perle] 200 mg PO TID PRN #30 cap PRN Reason: Cough Albuterol Inhaler [Ventolin Inhaler*] 2 puff IH Q6H PRN #1 hfa.aer.ad PRN Reason: Shortness Of Breath Thiamine HCl [Vitamin B-1*] 100 mg PO DAILY #15 tablet Ascorbic Acid [Vitamin C*] 500 mg PO TID #21 tablet Zinc Sulfate [Zinc Sulfate*] 220 mg PO DAILY #15 cap Azithromycin [Zithromax] 250 mg PO DAILY #5 tablet Patient Discharge Instructions: OK TO DC IV AND DC HOME. FOLLOW-UP WITH PRIMARY CARE PROVIDER IN 1-2 WEEKS. FOLLOW-UP WITH PULMONARY IN 1-2 WEEKS. RETURN TO THE ER IF SYMPTOMS ARE WORSEN. CALL or TEXT DR. RITTER AT [phone] IF ANY QUESTIONS REGARDING HOSPITAL STAY. PLEASE CALL THE FLOOR AT [phone] IF ANY MEDICATION OR NURSING QUESTIONS. Diet: AHA Activity: Fall precautions
--- NOTE | 2020-06-01 17:06 | P.PN ---
Subjective Date of Service: 06/01/20 Chief Complaint: Pneumonia due to Chan virus Subjective: Worsening (Patient is still orthostatic. Heart rate dropped in the 20s. She may need to stay for pacemaker placement. Cardiology updated on clinical status.) Physical Examination - Vital Signs Temperature: 98.7 F Blood Pressure: 126/74 Pulse: 49 Respirations: 28 Pulse Ox (%): 91 - Physical Exam General: In no apparent distress, Cooperative HEENT: Atraumatic, Normocephalic, EOMI Neck: Supple Respiratory: Crackles/rales Cardiovascular: Other (Bradycardic) Gastrointestinal: Normal bowel sounds, Soft and benign, Non-distended, No tenderness Musculoskeletal: No clubbing, No swelling, No contractures, No erythema, No tenderness, No warmth Integumentary: No rashes, No breakdown, No significant lesion, No tenderness/swelling, No erythema, No warmth, No cyanosis Neurological: Normal speech, Sensation intact, Normal affect - Studies Medications List Reviewed: Yes Assessment & Plan - Problems (Diagnosis) (1) Acute hypoxemic respiratory failure due to COVID-19 Current Visit: Yes Status: Acute (2) Hypertension Current Visit: Yes Status: Acute (3) Type II diabetes mellitus Current Visit: Yes Status: Acute (4) Hyperlipidemia Current Visit: Yes Status: Acute (5) Pneumonia due to COVID-19 virus Current Visit: Yes Status: Acute (6) Bradycardia Current Visit: Yes Status: Acute Physician Review Additional Text: Assessment Patient is a 69-year-old female WITH a PMH of HTN, DM-2, and HLD downgraded from ICU after management of acute hypoxemic respiratory failure secondary to COVID 19 pneumonia. She has done well and was being evaluated when she complained of sudden chest pain. Stat vital showed hypotension with SBP in 80s. Blood pressure improved with a bolus of IV fluid. ACS has been ruled out. Her Chest x-ray improved. She is still orthostatics and her heart rate is dropping upon standing. Cardiology reconsulted possible pacemaker placement Chest pain Acute hypoxemic respiratory failure COVID 19 PNA HTN HLD Type II diabetes mellitus PLAN: Continue volume challenge Started on midodrine 5 mg t.i.d. Continue checking orthostatics vitals q.8 hr Follow-up Cardiology recommendations Continue COVID 19 treatment with Continue Solu-Medrol, full dose anticoagulation with apixaban, vitamin B1, vitamin-C and zinc Continue NPH insulin and sliding scale for steroid-induced hyperglycemia
--- NOTE | 2020-06-01 17:16 | CON ---
Date of Consultation: 06/01/2020 The patient was admitted on 05/24/2020 for COVID positive pneumonia. Additional Admitting Physician: Prince Ron Sims MD. Reason For Consultation: Hypotension, bradycardia, and chest pain. History Of Present Illness: Ms. Martinez is a 69-year-old Latin-Macanese woman was admitted with pne umonia COVID positive. She still has a chest x-ray showed bilateral infiltrate. She still slightly hypotensive, which is orthostatic. Her heart rate is 68 today. Her chest pain has resolved. Denies any nausea, vomiting, diaphoresis, PND, orthopnea, pedal edema, palpitations, or syncope. Past Medical History: Extensive that includes atrial fibrillation, dyslipidemia, diabetes, COPD, gas troesophageal reflux disease, and hypertension. Review of Systems: Negative. Social History: Negative. Family History: Negative. Medications: Present medications include Eliquis, aspirin, Lipitor, insulin, steroids, Spiriva, Prot bj, thiamine, zinc, Vasotec, and metformin. Physical Examination: Vital Signs: Stable, now afebrile. HEENT: Negative. Neck: Supple with no bruit. Chest: Reveals rales at both bases. Cardiac: Revealed sinus rhythm. No murmurs, gallops, or rubs. Abdomen: Benign. Extremities: Revealed no clubbing, cyanosis, or edema. Diagnostic Data: Presently fairly unremarkable. Impression And Plan: 1.Orthostatic hypotension. 2.Bradycardia, resolved. 3.Recent COVID positive pneumonia with remaining infiltrate. 4.Atrial fibrillation, paroxysmal. 5.Hypertension. 6.Diabetes. 7.Dyslipidemia. 8.History of pancreas removal. 9.Chronic obstructive pulmonary disease. I would definitely continue her present regimen. Only medication she takes at home is Vasotec, we sameera y have to hold that. I suggest a low-dose 3 times a day. Bradycardia does not need to be attended. Right now she definitely is not a candidate for a pacemaker. Her chest pain is atypical and may have been related to her hypotension and her lung issues. From my standpoint, she can go jocelin e today. We can make arrangements for us to see her in the next 2 to 4 weeks. Were I think she coul d do an echocardiogram, then a stress test, then maybe do an event monitor to make sure she is not mo re bradycardic. The case was discussed with . LAVONNE/BRANDEN Voice ID: [id number] Report ID: [id number]
[2020-06-01] MEDS: ATORVASTATIN 40 MG TAB PO SCH (20:39)
[2020-06-01] MEDS: MELATONIN 3 MG TABLET PO SCH (20:40)
[2020-06-01] MEDS: GUAIFENESIN/CODEINE 5ML UCUP PO PRN (22:37)
[2020-06-02] MEDS: Ringers Lactate 1,000 ML IV SCH ×2 (04:43)
[2020-06-02] MEDS: INSULIN -REGULAR HUMAN 50 UNIT/0.5 ML ML SQ SCH ×4 (07:30→21:00)
[2020-06-02] MEDS: NA CHLORIDE 0.9% 1,000 ML IV SCH ×3 (07:43→23:58)
[2020-06-02] MEDS: MIDODRINE HCL 5 MG TABLET PO SCH ×3 (07:44→20:22)
[2020-06-02] MEDS: PANTOPRAZOLE 40MG TABLET PO SCH (07:44)
[2020-06-02] MEDS: ASCORBIC ACID 500 MG TABLET PO SCH ×3 (07:44→20:21)
[2020-06-02] MEDS: APIXABAN 5 MG TABLET PO SCH ×2 (07:44→20:21)
[2020-06-02] MEDS: ZINC SULFATE 220 MG CAP PO SCH (07:44)
[2020-06-02] MEDS: VITAMIN D 1000 UNIT TAB PO SCH (07:45)
[2020-06-02] MEDS: METHYLPREDNISOLONE 40 MG INJ IV SCH ×2 (07:45→20:22)
[2020-06-02] MEDS: THIAMINE HCL 100 MG TABLET PO SCH (07:45)
[2020-06-02] MEDS: ASPIRIN EC 81 MG TAB PO SCH (07:45)
[2020-06-02] MEDS: INSULIN 70/30 100 UNITS/ML SQ SCH ×2 (08:15→16:40)
[2020-06-02 08:46] LABS: BUN Blood Urea Nitrogen 16 mg/dL (7-18); Bicarbonate 27 mmol/L (21-32); Glucose Level 151 mg/dL (74-106); Magnesium 1.8 mg/dL (1.8-2.4); Phosphorus 3.7 mg/dL (2.5-4.9); Potassium 4.1 mmol/L (3.5-5.1); Sodium Level 144 mmol/L (136-145)
[2020-06-02] MEDS ORDERED: MAGNESIUM SULFATE 1 gm IVPB 1 GM/100 ML BAG IV ONE (08:50)
[2020-06-02] MEDS ORDERED: NA CHLORIDE 0.9% 1,000 ML IV ONE ×2 (09:23→11:58)
--- NOTE | 2020-06-02 10:42 | P.PN ---
Subjective Date of Service: 06/02/20 Chief Complaint: Pneumonia due to Chan virus Subjective: Worsening (Patient transferred to ICU overnight for bradycardia and hemodynamic instability. She is calm and without distress this morning. She has been insisting on leaving to make her cardiology appointment. I used to the rug weaver phone to explain her current clinical status, and explained risks involved with leaving at this time.) Physical Examination - Vital Signs Temperature: 98.1 F Blood Pressure: 124/74 Pulse: 44 Respirations: 19 Pulse Ox (%): 96 - Physical Exam General: In no apparent distress, Cooperative HEENT: Atraumatic, Normocephalic, EOMI Neck: Supple Respiratory: Clear to auscultation bilaterally, Normal air movement Cardiovascular: No murmurs, Other (bradycardic) Gastrointestinal: Normal bowel sounds, Soft and benign, Non-distended Musculoskeletal: No clubbing, No swelling, No contractures, No erythema, No tenderness, No warmth Integumentary: No rashes, No breakdown, No significant lesion, No tenderness/swelling, No erythema, No warmth, No cyanosis Neurological: Normal speech, Sensation intact, Normal affect - Studies Medications List Reviewed: Yes Assessment & Plan - Problems (Diagnosis) (1) Acute hypoxemic respiratory failure due to COVID-19 Current Visit: Yes Status: Acute (2) Hypertension Current Visit: Yes Status: Acute (3) Type II diabetes mellitus Current Visit: Yes Status: Acute (4) Hyperlipidemia Current Visit: Yes Status: Acute (5) Pneumonia due to COVID-19 virus Current Visit: Yes Status: Acute (6) Bradycardia Current Visit: Yes Status: Acute Physician Review Additional Text: Assessment Patient is a 69-year-old female WITH a PMH of HTN, DM-2, and HLD downgraded from ICU after management of acute hypoxemic respiratory failure secondary to COVID 19 pneumonia. She has done well and was being evaluated when she complained of sudden chest pain. Stat vital showed hypotension with SBP in 80s. She is still orthostatics and bradycardic. Cardiology has evaluated the patient and ruled out pacemaker placement at this time. Patient is hypotensive with SBP in the 80s, and orthostatic. She is currently in hyperthyroid state. Chest pain Symptomatic bradycardia Acute hypoxemic respiratory failure COVID 19 PNA HTN HLD Type II diabetes mellitus PLAN: Continue ICU stay for hemodynamic monitoring PRN atropine Check AM cortisol Continue volume challenge Continue midodrine 5 mg t.i.d. Continue checking orthostatics vitals q.8 hr Continue COVID 19 treatment with Continue Solu-Medrol, full dose anticoagulation with apixaban, vitamin B1, vitamin-C and zinc Continue NPH insulin and sliding scale for steroid-induced hyperglycemia Patient will need to follow up with Cardiology once medically cleared
[2020-06-02] MEDS ORDERED: ATROPINE SULF 1 MG/10 ML SYR IV PRN (10:43)
--- NOTE | 2020-06-02 15:18 | EKG ---
Test Date: 2020-06-01 Test Time: 16:47:57 [employer] Coach: LUISA MEASUREMENT RESULTS: Intervals: Rate: 57 [place]: QRSD: 144 QT: 530 QTc: 515 [place]: P: [place]: QRS: 228 T: 39 INTERPRETIVE STATEMENTS: Atrial fibrillation with slow ventricular response with a competing junctional pacemaker with premature ventricular or aberrant Nonspecific intraventricular block Possible Anterolateral infarct, age undetermined Abnormal ECG Compared to ECG 05/31/2020 13:31:05 Myocardial infarct finding now present Sinus bradycardia no longer present Electronically Signed On 06-02-20 15:17:03 CDT by Aydin Meier
[2020-06-02] MEDS: ATORVASTATIN 40 MG TAB PO SCH (20:21)
[2020-06-02] MEDS: MELATONIN 3 MG TABLET PO SCH (20:22)
[2020-06-02] MEDS: GUAIFENESIN/CODEINE 5ML UCUP PO PRN (20:24)
[2020-06-03 05:03] LABS: BUN Blood Urea Nitrogen 17 mg/dL (7-18); Bicarbonate 28 mmol/L (21-32); Glucose Level 140 mg/dL (74-106); Potassium 4.3 mmol/L (3.5-5.1); Sodium Level 144 mmol/L (136-145)
[2020-06-03 05:52] LABS: Magnesium 2.1 mg/dL (1.8-2.4); Phosphorus 3.4 mg/dL (2.5-4.9)
[2020-06-03] MEDS ORDERED: Ringers Lactate 1,000 ML IV SCH (07:00)
[2020-06-03] MEDS: INSULIN -REGULAR HUMAN 50 UNIT/0.5 ML ML SQ SCH ×2 (07:30→11:29)
[2020-06-03] MEDS: ASCORBIC ACID 500 MG TABLET PO SCH (07:57)
[2020-06-03] MEDS: INSULIN 70/30 100 UNITS/ML SQ SCH (07:57)
[2020-06-03] MEDS: ZINC SULFATE 220 MG CAP PO SCH (07:57)
[2020-06-03] MEDS: APIXABAN 5 MG TABLET PO SCH (07:58)
[2020-06-03] MEDS: PANTOPRAZOLE 40MG TABLET PO SCH (07:58)
[2020-06-03] MEDS: ASPIRIN EC 81 MG TAB PO SCH (07:58)
[2020-06-03] MEDS: VITAMIN D 1000 UNIT TAB PO SCH (07:58)
[2020-06-03] MEDS: MIDODRINE HCL 5 MG TABLET PO SCH ×2 (07:59→13:16)
[2020-06-03] MEDS: METHYLPREDNISOLONE 40 MG INJ IV SCH (08:01)
[2020-06-03] MEDS: THIAMINE HCL 100 MG TABLET PO SCH (08:03)
[2020-06-03 08:20] VITALS: O2SAT 97
--- NOTE | 2020-06-03 11:13 | RAD REPORT ---
EXAM DESCRIPTION: CT - Abdomen Pelvis W Contrast - 06/03/2020 10:52 am CLINICAL HISTORY: adrenal insufficiency COMPARISON: Abdomen Pelvis W Contrast dated 05/04/2020 TECHNIQUE: Biphasic, helical CT imaging of the abdomen and pelvis was performed following 100 ml non -ionic IV contrast. Oral contrast was administered. All CT scans are performed using dose optimization technique as appropriate and may include automated exposure control or mA/KV adjustment according to patient size. FINDINGS: Lung field airspace opacification is present with interstitial thickening. Pattern would b e consistent with the provided history of COVID-19 pneumonia. No pleural effusion. Mild cardiomegaly present without pericardial effusion. Liver shows mild fatty infiltration with no focal liver lesion. Gallbladder and biliary tree show no suspicious findings. Small remnant splenic nodules are present in the left upper quadrant. Pancreatic body and tail are absent. Surgical clips are seen in this region. This is similar to comparison. Lobulated kidneys are present. Both kidneys show cortical thinning or scarring in each upper pole. No hydronephrosis or obstructing calculus identified. No pyelonephritis or solid mass. No bladder abnor malities. No adrenal abnormalities. No dilated bowel loops or bowel wall thickening. No free air, free fluid or inflammatory stranding. No hernia, mass or bulky lymphadenopathy. Disc and bony degenerative change present. No acute or destructive process seen. IMPRESSION: Contrast enhanced CT abdomen and pelvis showing no acute or emergent finding. No signif icant changes from comparison. Bilateral lung bases show airspace infiltrates consistent with known history of COVID-19 pneumonia.
[2020-06-03 11:41] VITALS: BP 124/71; TEMP 97.7
[2020-06-03] MEDS: NA CHLORIDE 0.9% 1,000 ML IV SCH (11:41)
--- NOTE | 2020-06-03 13:41 | P.DS ---
Admission Date: 05/24/20 Discharge Date: 06/03/20 Disposition: DC HOME/HOME HEALTH CARE Discharge Condition: GOOD Reason for Admission: Pneumonia due to Chan virus - Problems (1) Acute hypoxemic respiratory failure due to COVID-19 Current Visit: Yes Status: Acute (2) Hypertension Current Visit: Yes Status: Acute (3) Type II diabetes mellitus Current Visit: Yes Status: Acute (4) Hyperlipidemia Current Visit: Yes Status: Acute (5) Pneumonia due to COVID-19 virus Current Visit: Yes Status: Acute (6) Bradycardia Current Visit: Yes Status: Acute Hospital Course: Patient is a 69-year-old Ukrainian-speaking female with a past medical history of hypertension who was admitted to the hospital with acute hypoxemic respiratory failure secondary to COVID 19 pneumonia. She was in the ICU as she required high amount of oxygen. No intubation was needed. She has been successfully transitioned to nasal cannula oxygen. Her discharged was cancelled as she complained of chest pain. She was bradycardic and hypotensive upon standing. She required 2 additonal days of volume repletion due to persistent orthostatic hypotension. She will be discharged on midodrine. She will follow up with Cardiology in 1 week. Vital Signs/Physical Exam: Temp Pulse Resp BP Pulse Ox 97.7 F 55 18 124/71 98 06/03/20 11:40 06/03/20 11:40 06/03/20 11:40 06/03/20 11:40 06/03/20 11:40 General: Alert, In no apparent distress, Cooperative HEENT: Atraumatic, Normocephalic, EOMI Neck: Supple Respiratory: Crackles/rales, Other (bilateral crackles) Cardiovascular: No edema, Normal S1 S2, Other (bradycardia) Gastrointestinal: Normal bowel sounds, Soft and benign, Non-distended, No tenderness Musculoskeletal: No clubbing, No swelling, No contractures, No erythema, No tenderness, No warmth Integumentary: No rashes, No breakdown, No significant lesion, No tenderness/swelling, No erythema, No warmth, No cyanosis Neurological: Normal speech, Sensation intact, Normal affect Laboratory Data at Discharge: WBC 8.0 K/uL (4.3-10.9) 05/30/20 09:43 Hgb 13.2 g/dL (12.0-15.0) 05/30/20 09:43 Hct 39.7 % (36.0-45.0) 05/30/20 09:43 Plt Count 286 K/uL (152-406) 05/30/20 09:43 PT 12.8 SECONDS (9.5-12.5) H 05/25/20 04:16 INR 1.09 05/25/20 04:16 APTT 31.5 SECONDS (24.3-36.9) 05/25/20 04:16 Sodium 144 mmol/L (136-145) 06/03/20 04:11 Potassium 4.3 mmol/L (3.5-5.1) 06/03/20 04:11 BUN 17 mg/dL (7-18) 06/03/20 04:11 Creatinine 0.55 mg/dL (0.55-1.3) 06/03/20 04:11 Glucose 140 mg/dL (74-106) H 06/03/20 04:11 Phosphorus 3.4 mg/dL (2.5-4.9) 06/03/20 04:11 Magnesium 2.1 mg/dL (1.8-2.4) 06/03/20 04:11 Total Bilirubin 0.6 mg/dL (0.2-1.0) 05/28/20 04:34 AST 25 U/L (15-37) 05/28/20 04:34 ALT 25 U/L (12-78) 05/28/20 04:34 Alkaline Phosphatase 66 U/L (45-117) 05/28/20 04:34 Troponin I < 0.02 ng/mL (0.0-0.045) 06/01/20 05:30 Triglycerides 118 mg/dL (<150) 05/25/20 04:16 Cholesterol 148 mg/dL (<200) 05/25/20 04:16 HDL Cholesterol 45 mg/dL (40-60) 05/25/20 04:16 Cholesterol/HDL Ratio 3.29 05/25/20 04:16 Home Medications: Aspirin [Aspirin EC 81 MG] 1 tab PO DAILY 05/25/20 Atorvastatin Calcium [Lipitor] 40 mg PO BEDTIME 05/25/20 Glipizide [Glipizide ER] 5 mg PO BID 05/25/20 Metformin HCl 1,000 mg PO BID 05/25/20 Omeprazole [Prilosec] 40 mg PO DAILY 05/25/20 Albuterol Inhaler [Ventolin Inhaler*] 2 puff IH Q6H PRN #1 hfa.aer.ad 05/29/20 Azithromycin [Zithromax] 250 mg PO DAILY #5 tablet 05/29/20 Benzonatate [Tessalon Perle] 200 mg PO TID PRN #30 cap 05/29/20 Guaifen W/Codeine Syrup [ROBITUSSIN A-C Syrup*] 10 ml PO BID PRN #100 ml 05/29/20 predniSONE [Prednisone*] 20 mg PO SEECOM #20 tab 05/29/20 Apixaban [Eliquis] 5 mg PO BID #14 tablet 06/01/20 Ascorbic Acid [Vitamin C*] 500 mg PO TID #21 tablet 06/01/20 Insulin 70/30 NPH/Reg Human [Novolin 70/30*] 20 unit SQ BIDAC ml 06/01/20 Melatonin [Melatonin*] 3 mg PO BEDTIME tablet 06/01/20 Midodrine HCl [Proamatine*] 5 mg PO TID #30 tab 06/01/20 Thiamine HCl [Vitamin B-1*] 100 mg PO DAILY #15 tablet 06/01/20 Zinc Sulfate [Zinc Sulfate*] 220 mg PO DAILY #15 cap 06/01/20 New Medications: Apixaban [Eliquis] 5 mg PO BID #14 tablet predniSONE [Prednisone*] 20 mg PO SEECOM #20 tab Midodrine HCl [Proamatine*] 5 mg PO TID #30 tab Guaifen W/Codeine Syrup [ROBITUSSIN A-C Syrup*] 10 ml PO BID PRN #100 ml PRN Reason: Cough Benzonatate [Tessalon Perle] 200 mg PO TID PRN #30 cap PRN Reason: Cough Albuterol Inhaler [Ventolin Inhaler*] 2 puff IH Q6H PRN #1 hfa.aer.ad PRN Reason: Shortness Of Breath Thiamine HCl [Vitamin B-1*] 100 mg PO DAILY #15 tablet Ascorbic Acid [Vitamin C*] 500 mg PO TID #21 tablet Zinc Sulfate [Zinc Sulfate*] 220 mg PO DAILY #15 cap Azithromycin [Zithromax] 250 mg PO DAILY #5 tablet Patient Discharge Instructions: OK TO DC IV AND DC HOME. FOLLOW-UP WITH PRIMARY CARE PROVIDER IN 1-2 WEEKS. FOLLOW-UP WITH PULMONARY IN 1-2 WEEKS. RETURN TO THE ER IF SYMPTOMS ARE WORSEN. CALL or TEXT DR. RITTER AT [phone] IF ANY QUESTIONS REGARDING HOSPITAL STAY. PLEASE CALL THE FLOOR AT [phone] IF ANY MEDICATION OR NURSING QUESTIONS. Diet: AHA Activity: Fall precautions
--- NOTE | 2020-06-04 07:52 | EKG ---
Test Date: 2020-06-02 Test Time: 04:17:30 Facilities Maintenance Assistant: RT Tan MEASUREMENT RESULTS: Intervals: Rate: 48 [place]: 136 QRSD: 82 QT: 526 QTc: 469 [place]: P: 2 [place]: 136 QRS: 9 T: 66 INTERPRETIVE STATEMENTS: Marked sinus bradycardia Left ventricular hypertrophy with repolarization abnormality Abnormal ECG Compared to ECG 06/01/2020 16:47:57 Left ventricular hypertrophy now present Early repolarization now present Atrial fibrillation no longer present Myocardial infarct finding no longer present Electronically Signed On 06-04-20 07:49:49 CDT by Aydin Meier
--- NOTE | 2020-06-04 07:53 | EKG ---
Test Date: 2020-06-01 Test Time: 16:57:10 Adult [employer] Education Teacher: YVETTE MEASUREMENT RESULTS: Intervals: Rate: 54 [place]: 140 QRSD: 72 QT: 484 QTc: 458 [place]: P: 53 [place]: 140 QRS: 23 T: -4 INTERPRETIVE STATEMENTS: Marked sinus bradycardia with frequent premature ventricular complexes Nonspecific ST abnormality Abnormal ECG Compared to ECG 06/01/2020 16:47:57 Ventricular premature complex(es) now present ST (T wave) deviation now present Atrial fibrillation no longer present Myocardial infarct finding no longer present Electronically Signed On 06-04-20 07:49:54 CDT by Aydin Meier
--- NOTE | 2020-06-04 07:53 | EKG ---
Test Date: 2020-05-31 Test Time: 13:31:05 Electronic Maintenance Supervisor: LUISA MEASUREMENT RESULTS: Intervals: Rate: 57 [place]: 120 QRSD: 88 QT: 480 QTc: 467 [place]: P: -20 [place]: 120 QRS: 25 T: 41 INTERPRETIVE STATEMENTS: Sinus bradycardia with occasional premature ventricular complexes Otherwise normal ECG Compared to ECG 05/24/2020 20:49:10 Ventricular premature complex(es) now present Sinus rhythm no longer present ST (T wave) deviation no longer present Electronically Signed On 06-04-20 07:50:05 CDT by Aydin Meier
== END 2020-06-03 14:45 | disposition home or self-care (01) | DRG 177 ==
LOC: ER 18:09 → ERHOLD 22:39 → 3RD-ICU 05-25 00:36 → 4TH 05-30 22:00 → 3RD-ICU 06-01 18:51
PROVIDERS: ADMIT Hospitalist; ATTEND Internal Medicine
PROC: 8E0ZXY6 Isolation (ICD-10-PCS; principal; 2020-05-24)
DX: U07.1 COVID-19 (principal); J12.89 Other viral pneumonia; J96.01 Acute respiratory failure with hypoxia; J44.0 Chronic obstructive pulmonary disease with (acute) lower respiratory infection; I10 Essential (primary) hypertension; E78.5 Hyperlipidemia, unspecified; K02.9 Dental caries, unspecified; R00.1 Bradycardia, unspecified; R07.9 Chest pain, unspecified; E11.65 Type 2 diabetes mellitus with hyperglycemia; I95.1 Orthostatic hypotension; I48.0 Paroxysmal atrial fibrillation; Z88.8 Allergy status to other drugs, medicaments and biological substances; T38.0X5A Adverse effect of glucocorticoids and synthetic analogues, initial encounter; Z79.82 Long term (current) use of aspirin; Z79.899 Other long term (current) drug therapy; Z79.84 Long term (current) use of oral hypoglycemic drugs
CPT/HCPCS: 36415; 51702; 71045; 74177; 80048; 80053; 80061; 80076; 81003; 82533; 82728; 82947; 83036; 83605; 83615; 83735; 83880; 84100; 84145; 84439; 84443; 84484; 85025; 85027; 85379; 85610; 85730; 86140; 87040; 93005; 94640; 94760; 96365; 96372; 96375; 99285; J0295; J0456; J0696; J1100; J1650; J1815; J1940; J2920; J2930; J3010; J3475; J7030; J7050; J7120; Q9967

== ENCOUNTER 2021-05-20 17:39 | Emergency (ER) | payer OTHER ==
--- OUTSIDE RECORDS SUMMARY | 2021-05-20 17:41 | XMS REPORT | Continuity of Care Document ---
:1950 Author Organization [facility] t Address [address] [place] [address] Care Team Providers Name Role Phone Unavailable Unavailable Unavailable Payers Payer Name Policy Type Policy Number Effective Date Expiration Date S ource Problems This patient has no known problems. Allergies, Adverse Reactions, Alerts Allergy Allergy Status Severity Reaction(s) Onset Inactive Treating Comm ents Source Name Type Date Date Clinician ibuprofe DA Active U [facility] Imogene n 02-02 [facility] Medications This patient has no known medications. Procedures This patient has no known procedures. Results Test Description Test Time Test Comments Results Result Comments Source GLUBED 2019-02-05 06:37:00 Test Item Value Reference Range Interpretation Comme nts GLUBED (test code = GLUBED) 168 mg/dL 70-105 H Performed by certified pig furnace operator at [facility]2019-04-11 20:57:00 Test Item Value Reference Range Interpretation Comments GLUBED (test code = 158 mg/dL 70-105 H Performe d by certified GLUBED) pig furnace operator at [facility]2019-04-11 16:41:00 Test Item Value Reference Range Interpretation Comments GLUBED (test code = 136 mg/dL 70-105 H Performe d by certified GLUBED) pig furnace operator at [facility]2019-04-11 11:35:00 Test Item Value Reference Range Interpretation Comments GLUBED (test code = 192 mg/dL 70-105 H Performe d by certified GLUBED) pig furnace operator at [facility]2019-04-11 07:44:00 Test Item Value Reference Range Interpretation Comments GLUBED (test code = 145 mg/dL 70-105 H [facility]forme d [facility] certified GLUB[facility] Test Item Value Reference Range Interpretation Comments GLUBED (test code = 159 mg/dL 70-105 H Performe d by certified GLUBED) pig furnace operator at [facility]2019-04-10 16:47:00 Test Item Value Reference Range Interpretation Comments GLUBED (test code = 169 mg/dL 70-105 H Performe d by certified GLUBED) pig furnace operator at [facility]2019-04-10 11:49:00 Test Item Value Reference Range Interpretation Comments GLUBED (test code = 137 mg/dL 70-105 H Performe d by certified GLUBED) pig furnace operator at [facility] - CT ABD PELVIS W/O [id number] 15:41:00 Name: DANIELLE BROWN [facility] : 1950 Age/S: 68 / F [address] [facility] Unit #: [id number] Loc: [place] [address] Phys: Jordan Kraus Jr, MD Acct: [id number] Dis Date: Status: REG ER PHONE #: [phone] Exam Date: 02/02/2019 1449 FAX #: [phone] Reason: ABD APIN EXAMS: CPTCODE: [id number] CT ABD PELVIS W/O CONT 68205 - CT ABD PELVIS W/O CONT CLINICAL [...] 1 Signed Report (CONTINUED) Name: DANIELLE BROWN [facility] : 1950 Age/S: 68 / F [address] [facility] Unit #: [id number] Loc: [place], [place] [address] Phys: Jordan Kraus Jr, MD Acct: [id number] Dis Date: Status: REG ER PHONE #: [phone] Exam Date: 02/02/2019 1449 FAX #: [phone] Reason: ABD APIN EXAMS: CPT CODE: [id number] CT ABD PELVIS W/O CONT 49421 <Continued> calcifications (series 300, image #[id number]; series [...] 2 Signed Report (CONTINUED) Name: DANIELLE BROWN [facility] : 1950 Age/S: 68 / F [address] [facility] Unit #: [id number] Loc: [place] [address] Phys: Jordan Kraus [facility] Acct: [id number] Dis Date: Status: REG ER PHONE #: [phone] Exam Date: 02/02/2019 1449 FAX #: [phone] Reason: ABD APIN EXAMS: CPT CODE: [id number] CT ABD PELVIS W/O CONT 08714 <Continued> at 1541 Reported and signed by: Liz Rutledge MD CC: Reagan Hirsch Technologist:Yared Castle RT (R) CT (R) CTDI: 10.54 DLP: 573.56 Trnscb Date/Time: 02/02/2019 (1541) [id number] Orig Print D/T: S: 02/02/2019 (1544) CTDI: 10.54 DLP: 573.56 PAGE 3 Signed ReportURINALYSIS W REFLEX [id number] 15:22:00 Test Item Value Reference Range Interpretation [...] MUCU) 2+ /hpf NEG,FEW A B-TYPE NATRIURETIC [id number] 15:02:00 Test Item Value Reference Range Interpretation Comments B-TYPE NATRIURETIC PEPTIDE (test 34.8 PG/ML 0-100 N code = BNP) BASIC METABOLIC [id number] 14:51:00 Test Item Value Reference Range Interpretation [...] code = 9.2 mg/dL 8.5-10.1 N CA) [id number] 14:51:00 Test Item Value Reference Range Interpretation Comments LIPASE (test code = LIP) 44 U/L 73-393 L [id number] 14:51:00 Test Item Value Reference Range Interpretation Comments TROPONIN-I (test <0.015 ng/ml 0.00-0.045 N GUIDELINES: 0.08 - 0.09 code = TROPI) Indeterminate0 .10 Risk Stratifica tion Limit: Suggest sequential te sting0.60 - 1.50 AMI cut off: Myocardial Inju ry by WHO criteria BASIC METABOLIC [id number] 14:49:00 Test Item Value Reference Range Interpretation [...] code = 9.2 mg/dL 8.5-10.1 N CA) [id number] 14:49:00 Test Item Value Reference Range Interpretation Comments LIPASE (test code = LIP) 44 U/L 73-393 L [id number] 14:49:00 Test Item Value Reference Range Interpretation Comments TROPONIN-I (test code = TROPI) ng/ml 0.00-0.045 PROTHROMBIN [id number] 14:48:00 Test Item Value Reference Interpretation Comments Range PROTHROMBIN TIME 12.9 SECONDS 8.7-12.1 H THERAPEUTIC LEVEL: 1.5 TO PATIENT (test code 1.9 TIMES NORMAL RANGE = PTP) INTERNATIONAL 1.2 Recommended Th erapeutic NORMAL RATIO (test PT Ratios For Oral code = INR) AnticoagulantTh erapy. CONDITION INT'L N ORMALIZED PT RATIO------- --- Prophylaxis of venous thrombosis 2.0 - 3.0in [facility] medical or surgicalpati ents, treatment of venousthrombosi s, prevention of e mbolism. Prevention of r ecurrent embolism, 2.5 - 3.5or treatment of patients with mechanicalprost hetic heart valves. THROMBOPLASTIN TIME [id number] 14:48:00 Test Item Value Reference Range Interpretation Comments THROMBOPLASTIN TIME PARTIAL 34.5 seconds 22.8-34.4 H (test code = PTT) CBC W/AUTO [id number] 14:33:00 Test Item Value Reference Range Interpretation [...] 0.0-0.1 N NRBC#) - XR CHEST 1 [id number] 14:25:00 [facility] Name: DANIELLE BROWN [address] [place] [address] Phys: Jordan Kraus Jr, MD [place], [place] [address] : 1950 Age: 68 Sex: F Acct: [id number] Loc: [place] PHONE #: [phone] Exam Date: 02/02/2019 Status: PRE ER FAX #: [phone] Radiology No: Unit No: [id number] Reason: chest pain EXAMS: CPT CODE: [id number] XR CHEST 1 V 13424 Fluoro Time: DAP (Gy m2): Air Kerma [...] present. IMPRESSION: No acute cardiopulmonary abnormality. at 9391 Reported and signed by: PRETTY SHARPE M.D. CC: Reagan Hirsch Technologist: RT Trinity (R) Transcribed Date/Time: 02/02/2019 (4429) t.HV2 Orig Print D/T: S: 02/02/2019 (8780) PAGE 1 Signed Report
--- NOTE | 2021-05-20 20:56 | RAD REPORT ---
EXAM DESCRIPTION: RAD - Foot Left 3 View - 05/20/2021 8:42 pm CLINICAL HISTORY: PAIN COMPARISON: No comparisons FINDINGS: No left foot fracture identified. Calcaneal spurring is present. No radiopaque foreign bod ies. No significant focal degenerative changes. IMPRESSION: No left foot fracture identified.
[2021-05-20] MEDS ORDERED: HYDROCODONE/APAP 5/325 MG TAB ONE (21:12)
--- NOTE | 2021-05-20 21:15 | RAD REPORT ---
EXAM DESCRIPTION: US - Extremity Venous Uni Ltd - 05/20/2021 9:04 pm CLINICAL HISTORY: Left leg swelling COMPARISON: None. TECHNIQUE: Real-time sonographic evaluation of the left lower extremity deep venous system was perfo rmed. FINDINGS: Normal compressibility, flow augmentation, phasic flow and spontaneous flow is identified in the left lower extremity deep venous system. No intraluminal filling defects seen. IMPRESSION: No DVT in the left lower extremity.
--- NOTE | 2021-05-20 21:16 | RAD REPORT ---
EXAM DESCRIPTION: RAD - Tib Fib Left - 05/20/2021 8:42 pm CLINICAL HISTORY: trauma COMPARISON: No comparisons FINDINGS: Status post left total knee arthroplasty. No evidence of hardware complications. No fractu res are identified. Calcaneal spurring is noted. No radiopaque foreign bodies. IMPRESSION: No fracture of the tibia or fibula identified.
--- NOTE | 2021-05-20 21:16 | RAD REPORT ---
EXAM DESCRIPTION: RAD - Ankle Left 3 View - 05/20/2021 8:42 pm CLINICAL HISTORY: trauma COMPARISON: No comparisons FINDINGS: No left ankle fractures identified. No malalignment. Calcaneal spurring. Mild midfoot dege nerative changes are noted. IMPRESSION: No left ankle fracture.
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
[2021-05-22 23:56] VITALS: TEMP 98.3; O2SAT 100
[2021-05-22 23:58] VITALS: BP 150/84
== END 2021-05-20 22:08 | disposition home or self-care (01) ==
LOC: ER 17:39
DX: S90.02XA Contusion of left ankle, initial encounter (principal); S90.32XA Contusion of left foot, initial encounter; S80.12XA Contusion of left lower leg, initial encounter; W22.8XXA Striking against or struck by other objects, initial encounter; Y93.89 Activity, other specified; I10 Essential (primary) hypertension
CPT/HCPCS: 93971; 99284

== ENCOUNTER 2021-05-27 15:41 | Emergency (ER) | payer OTHER ==
--- OUTSIDE RECORDS SUMMARY | 2021-05-27 15:45 | XMS REPORT | Continuity of Care Document ---
:1950 Author Organization [facility] t Address [address] [place] [address] Care Team Providers Name Role Phone Unavailable Unavailable Unavailable Payers Payer Name Policy Type Policy Number Effective Date Expiration Date S ource Problems This patient has no known problems. Allergies, Adverse Reactions, Alerts Allergy Allergy Status Severity Reaction(s) Onset Inactive Treating Comm ents Source Name Type Date Date Clinician ibuprofe DA Active [facility]02 [facility] Medications This patient has no known medications. Procedures This patient has no known procedures. Results Test Description Test Time Test Comments Results Result Comments Source GLUBED 2019-02-05 06:37:00 Test Item Value Reference Range Interpretation Comme nts GLUBED (test code = GLUBED) 168 mg/dL 70-105 H Performed by certified monogram operator at [facility]2019-04-11 20:57:00 Test Item Value Reference Range Interpretation Comments GLUBED (test code = 158 mg/dL 70-105 H Performe d by certified GLUBED) monogram operator at [facility] [id number] 16:41:00 Test Item Value Reference Range Interpretation Comments GLUBED (test code = 136 mg/dL 70-105 H Performe d [facility] certified [facility] Test Item Value Reference Range Interpretation Comments GLUBED (test code = 192 mg/dL 70-105 H Performe d by certified GLUBED) monogram operator at [facility]2019-04-11 07:44:00 Test Item Value Reference Range Interpretation Comments GLUBED (test code = 145 mg/dL 70-105 H Performe d by certified GLUBED) monogram operator at [facility]2019-04-10 21:40:00 Test Item Value Reference Range Interpretation Comments GLUBED (test code = 159 mg/dL 70-105 H Performe d by certified GLUBED) monogram operator at [facility]2019-04-10 16:47:00 Test Item Value Reference Range Interpretation Comments GLUBED (test code = 169 mg/dL 70-105 H Performe d by certified GLUBED) monogram operator at [facility]2019-04-10 11:49:00 Test Item Value Reference Range Interpretation Comments GLUBED (test code = 137 mg/dL 70-105 H Performe d by certified GLUBED) monogram operator at [facility] - CT ABD PELVIS W/O [id number] 15:41:00 Name: DANIELLE BROWN [facility] : 1950 Age/S: 68 / F [address] [facility] Unit #: [id number] Loc: [place] [address] Phys: Jordan Karus Jr, MD Acct: [id number] Dis Date: Status: REG ER PHONE #: [phone] Exam Date: 02/02/2019 1449 FAX #: [phone] Reason: ABD APIN EXAMS: CPTCODE: [id number] CT ABD PELVIS W/O CONT 61828 - CT ABD PELVIS W/O CONT CLINICAL [...] 1 Signed Report (CONTINUED) Name: DANIELLE BROWN [facility] : 1950 Age/S: 68 / F [address] [facility] Unit #: [id number] Loc: [place] [address] Phys: Jordan Kraus Jr, MD Acct: [id number] Dis Date: Status: REG ER PHONE #: [phone] Exam Date: 02/02/2019 1446 FAX #: [phone] Reason: ABD APIN EXAMS: CPT CODE: [id number] CT ABD PELVIS W/O CONT 38019 <Continued> calcifications (series 300, image #[id number]; series [...] 2 Signed Report (CONTINUED) Name: DANIELLE BROWN [facility] : 1950 Age/S: 68 / F [address] [facility] Unit #: [id number] Loc: [place] [address] Phys: Jordan Kraus Acct: [id number] Dis Date: Status: REG ER PHONE #: [phone] Exam Date: 02/02/2019 1449 FAX #: [phone] Reason: ABD APIN EXAMS: CPT CODE: [id number] CT ABD PELVIS W/O CONT 71500 <Continued> at 1541 Reported and signed by: Liz Rutledge MD CC: Reagan Hirsch Technologist:Yared Castle RT (R) CT (R) CTDI: 10.54 DLP: 573.56 Trnscb Date/Time: 02/02/2019 (154) [place] Orig Print D/T: S: 02/02/2019 (1544) CTDI: 10.54 DLP: 573.56 PAGE 3 Signed ReportURINALYSIS W REFLEX [id number] 15:22:00 Test Item Value Reference Range Interpretation [...] MUCU) 2+ /hpf NEG,FEW A B-TYPE NATRIURETIC [id number] 15:02:00 Test Item Value Reference Range Interpretation Comments B-TYPE NATRIURETIC PEPTIDE (test 34.8 PG/ML 0-100 N code = BNP) BASIC METABOLIC [id number] 14:51:00 Test Item Value Reference Range Interpretation [...] code = 9.2 mg/dL 8.5-10.1 N CA) [id number] 14:51:00 Test Item Value Reference Range Interpretation Comments LIPASE (test code = LIP) 44 U/L 73-393 L [id number] 14:51:00 Test Item Value Reference Range Interpretation Comments TROPONIN-I (test <0.015 ng/ml 0.00-0.045 N GUIDELINES: 0.08 - 0.09 code = TROPI) Indeterminate0 .10 Risk Stratifica tion Limit: Suggest sequential te sting0.60 - 1.50 AMI cut off: Myocardial Inju ry by WHO criteria BASIC METABOLIC [id number] 14:49:00 Test Item Value Reference Range Interpretation [...] IS -ROXANNA N, MULTIPLY REPORT ED RESULT BY1.21. CREATININE (test code 0.70 mg/dL 0.51-0.95 N = CREAT) CALCIUM (test code = 9.2 mg/dL 8.5-10.1 N CA) [id number] 14:49:00 Test Item Value Reference Range Interpretation Comments LIPASE (test code = LIP) 44 U/L 73-393 L [id number] 14:49:00 Test Item Value Reference Range Interpretation Comments TROPONIN-I (test code = TROPI) ng/ml 0.00-0.045 PROTHROMBIN [id number] 14:48:00 Test Item Value Reference Interpretation Comments Range PROTHROMBIN TIME 12.9 SECONDS 8.7-12.1 H THERAPEUTIC LEVEL: 1.5 TO PATIENT (test code 1.9 TIMES NORMAL RANGE = PTP) INTERNATIONAL 1.2 Recommended Th erapeutic NORMAL RATIO (test PT Ratios For Oral code = INR) AnticoagulantTh erapy. CONDITION INT'L N ORMALIZED PT RATIO------- --- Prophylaxis of venous thrombosis 2.0 - 3.0in [facility] medical or surgicalpati ents, treatment of venousthrombosi s, prevention of e mbolism. Prevention of r ecurrent embolism, 2.5 - 3.5or treatment of patients with mechanicalprost hetic heart valves. THROMBOPLASTIN TIME [id number] 14:48:00 Test Item Value Reference Range Interpretation Comments THROMBOPLASTIN TIME PARTIAL 34.5 seconds 22.8-34.4 H (test code = PTT) CBC W/AUTO [id number] 14:33:00 Test Item Value Reference Range Interpretation [...] 0.0-0.1 N NRBC#) - XR CHEST 1 [id number] 14:25:[address] [facility] Name: DANIELLE BROWN [address] [place] [address] Phys: Jordan Kraus Jr, MD [place], [place] [address] : 1950 Age: 68 Sex: F Acct: [id number] Loc: [place] PHONE #: [phone] Exam Date: 02/02/2019 Status: PRE ER FAX #: [phone] Radiology No: Unit No: [id number] Reason: chest pain EXAMS: CPT CODE: [id number] XR CHEST 1 V 71966 Fluoro Time: DAP (Gy m2): Air Kerma [...] present. IMPRESSION: No acute cardiopulmonary abnormality. at 5337 Reported and signed by: PRETTY SHARPE M.D. CC: Reagan Hirsch Technologist: RT Trinity (R) Transcribed Date/Time: 02/02/2019 (7995) t.HV2 Orig Print D/T: S: 02/02/2019 (4390) PAGE 1 Signed Report
[2021-05-27] MEDS ORDERED: NA CHLORIDE 0.9% 1,000 ML ONE (21:39)
[2021-05-27 22:03] LABS: Absolute Lymphocytes (CBC) 2.7 K/uL (0.7-4.9); Basophils % 0.5 % (0-1.3); Lymphocytes % 31.5 % (15.3-44.8); RBC Red Blood Cell Count 4.34 M/uL (3.86-4.86)
[2021-05-27 22:11] LABS: BUN Blood Urea Nitrogen 17 mg/dL (7-18); Bicarbonate 29 mmol/L (21-32); C-Reactive Protein 4.09 mg/L (<3.00); Glucose Level 172 mg/dL (74-106); Potassium 3.9 mmol/L (3.5-5.1); Sodium Level 142 mmol/L (136-145)
--- NOTE | 2021-05-27 23:42 | ER ---
Nurse's Notes [facility] Name: Sapphire Martinez Age: 70 yrs Sex: Female : 1950 Arrival Date: 05/27/2021 Time: 15:45 Bed 28 Private MD: Diagnosis: Cellulitis/ Abscess left leg Presentation: 05/27 15:59 Chief complaint: Patient states: Has continued LLE pain since her visit here on 05/20. ll1 Site is red and swollen. Blood blister noted to site. No fever. Coronavirus screen: Client denies travel out of the [place] in the last 14 days. At this time, the client does not indicate any symptoms associated with coronavirus-19. Ebola Screen: Patient denies travel to an Ebola-affected area in the 21 days before illness onset. Initial Sepsis Screen: Does the patient meet any 2 criteria? No. Patient's initial sepsis screen is negative. Does the patient have a suspected source of infection? Yes: Skin breakdown/wound. Risk Assessment: Do you want to hurt yourself or someone else? Patient reports no desire to harm self or others. Onset of symptoms was May 15, 2021. 15:59 Method Of Arrival: Ambulatory ll1 15:59 Acuity: TONY 3 ll1 Historical: - Allergies: 16:00 Advil; ll1 - PMHx: 16:00 gastritis; Diabetes - NIDDM; Colitis; Hyperlipidemia; Arthritis; Hypertension; ll1 - PSHx: 16:00 pancreas; ll1 - Immunization history:: Client reports receiving the 2nd dose of the Covid vaccine. - Social history:: Smoking status: Patient denies any tobacco usage or history of. Screenin:50 Abuse screen: Denies threats or abuse. Nutritional screening: No deficits noted. bb Tuberculosis screening: No symptoms or risk factors identified. Fall Risk None identified. Assessment: 19:50 General: Appears in no apparent distress. Behavior is calm, cooperative. Pain: bb Complains of pain in left leg. Neuro: Level of Consciousness is awake, alert, obeys commands, Oriented to person, place, time, situation. Cardiovascular: Capillary refill < 3 seconds Patient's skin is warm and dry. Respiratory: Airway is patent Respiratory effort is even, unlabored, Respiratory pattern is regular. GI: Abdomen is non-distended. Derm: Skin is pink, warm \T\ dry. Musculoskeletal: Circulation, motion, and sensation intact. wound to left lower leg with surrounding erythema. 21:44 Reassessment: Patient is alert, oriented x 3, equal unlabored respirations, skin bb warm/dry/pink. IV site intact, patent with fluids infusing family at bedside. 22:41 Reassessment: Patient is alert, oriented x 3, equal unlabored respirations, skin bb warm/dry/pink. IV site intact, patent, with fluids infusing. 23:27 Reassessment: Dr Luevano at bedside for I\T\D of wound to left leg. bb 05/28 00:26 Reassessment: pt awaiting completion of IV antibiotics prior to discharge. bb 01:57 Reassessment: Patient is alert, oriented x 3, equal unlabored respirations, skin bb warm/dry/pink. IV site intact, patent, fluids infusing, pt states pain has improved. 02:22 Reassessment: Patient is alert, oriented x 3, equal unlabored respirations, skin bb warm/dry/pink. pt verbalized understanding of and agrees to plan of care discharge instructions given pt assisted to exit via wheelchair. Vital Signs: 05/27 15:59 BP 163 / 87; Pulse 69; Resp 17; Temp 97.4; Pulse Ox 99% ; Weight 80.74 kg; Height 5 ft. ll1 0 in. (152.40 cm); Pain 8/10; 19:50 BP 142 / 76; Pulse 59; Resp 16 S; Temp 98(O); Pulse Ox 96% on R/A; Pain 8/10; bb 21:45 BP 165 / 92; Pulse 65; Resp 16 S; Pulse Ox 98% ; bb 22:41 BP 144 / 86; Pulse 61; Resp 16 S; Pulse Ox 98% on R/A; bb 05/28 01:57 BP 140 / 73; Pulse 62; Resp 16 S; Pulse Ox 97% on R/A; bb 05/27 15:59 Body Mass Index 34.76 (80.74 kg, 152.40 cm) ll1 ED Course: 05/27 15:45 Patient arrived in ED. mr 15:59 Arm band placed on. ll1 16:00 Triage completed. ll1 19:38 Shan Luevano MD is Attending Physician. pkl 19:50 Patient has correct armband on for positive identification. Bed in low position. Call bb light in reach. Side rails up X 1. Adult w/ patient. Pulse ox on. NIBP on. 20:18 Mary Monae RN is Primary Nurse. zb 20:48 Primary Nurse role handed off by Mary Monae RN bb 20:48 Kasey Manning RN is Primary Nurse. bb 21:30 Initial lab(s) drawn, by ut, sent to lab. First set of blood cultures drawn by me, bb COVID swab sent to lab. Inserted saline lock: 20 gauge in left antecubital area, using aseptic technique. Blood collected. 23:41 Herb Allen MD is Referral Physician. pkl 05/28 01:58 No provider procedures requiring assistance completed. bb 02:24 IV discontinued, intact, bleeding controlled, No redness/swelling at site. Pressure bb dressing applied. Administered Medications: 05/27 21:30 Drug: NS 0.9% 1000 ml Route: IV; Rate: 125 ml/hr; Site: left antecubital; bb 05/28 02:23 Follow up: IV Status: Completed infusion; IV Intake: 250ml bb 00:23 Drug: vancoMYCIN 1 grams Route: IVPB; Infused Over: 2 hrs; Site: left antecubital; bb 02:23 Follow up: IV Status: Completed infusion; IV Intake: 250ml bb 01:08 Drug: [place] (HYDROcodone-acetaminophen) (7.5 mg-325 mg) 1 tabs Route: PO; bb 01:58 Follow up: Response: No adverse reaction; Pain is decreased; RASS: Alert and Calm (0) bb Intake: 02:23 IV: 250ml; Total: 250ml. bb 02:23 IV: 250ml; Total: 500ml. bb Outcome: 05/27 23:42 Discharge ordered by . pkl 05/28 02:24 Discharged to home via wheelchair, with family. bb Condition: stable Discharge instructions given to patient, family, Instructed on discharge instructions, follow up and referral plans. medication usage, Demonstrated understanding of instructions, follow-up care, medications, Prescriptions given X 1. 02:31 Patient left the ED. bb Signatures: Shan Luevano MD MD pkl Rivera, Mary mr Kasey Manning RN RN Yara Rose RN RN ll1 Mary Monae, RN RN zb
--- NOTE | 2021-05-27 23:43 | EDPHYS ---
Physician Documentation [facility] Name: Sapphire Martinez Age: 70 yrs Sex: Female : 1950 Arrival Date: 05/27/2021 Time: 15:45 Bed 28 Private MD: ED Physician Shan Luevano HPI: 05/27 19:55 This 70 yrs old Female presents to ER via Ambulatory with complaints of Leg pkl Pain. 19:55 The patient presents with pain, that is acute. The complaints affect the left leg. pkl Onset: The symptoms/episode began/occurred 10 day(s) ago. The patient has been recently seen at the [facility] Emergency Department, last week. Patient was seen in this ER 1 week ago, had US and X' rays done and discharged. Patient said pain and swelling is now worse. Historical: - Allergies: 16:00 Advil; ll1 - PMHx: 16:00 gastritis; Diabetes - NIDDM; Colitis; Hyperlipidemia; Arthritis; Hypertension; ll1 - PSHx: 16:00 pancreas; ll1 - Immunization history:: Client reports receiving the 2nd dose of the Covid vaccine. - Social history:: Smoking status: Patient denies any tobacco usage or history of. ROS: 19:55 Eyes: Negative for injury, pain, redness, and discharge, ENT: Negative for injury, pkl pain, and discharge, Neck: Negative for injury, pain, and swelling, Cardiovascular: Negative for chest pain, palpitations, and edema, Respiratory: Negative for shortness of breath, cough, wheezing, and pleuritic chest pain, Abdomen/GI: Negative for abdominal pain, nausea, vomiting, diarrhea, and constipation, Back: Negative for injury and pain, : Negative for injury, bleeding, discharge, and swelling. 19:55 MS/extremity: Positive for erythema, pain, swelling, tenderness, of the left leg. 19:55 Skin: Positive for erythema, swelling, of the left leg. 19:55 Neuro: Negative for altered mental status, loss of consciousness. Exam: 20:09 Head/Face: Normocephalic, atraumatic. Eyes: Pupils equal round and reactive to light, pkl extra-ocular motions intact. Lids and lashes normal. Conjunctiva and sclera are non-icteric and not injected. Cornea within normal limits. Periorbital areas with no swelling, redness, or edema. ENT: Nares patent. No nasal discharge, no septal abnormalities noted. Tympanic membranes are normal and external auditory canals are clear. Oropharynx with no redness, swelling, or masses, exudates, or evidence of obstruction, uvula midline. Mucous membranes moist. Neck: Trachea midline, no thyromegaly or masses palpated, and no cervical lymphadenopathy. Supple, full range of motion without nuchal rigidity, or vertebral point tenderness. No Meningismus. Chest/axilla: Normal chest wall appearance and motion. Nontender with no deformity. No lesions are appreciated. Cardiovascular: Regular rate and rhythm with a normal S1 and S2. No gallops, murmurs, or rubs. Normal PMI, no JVD. No pulse deficits. Respiratory: Lungs have equal breath sounds bilaterally, clear to auscultation and percussion. No rales, rhonchi or wheezes noted. No increased work of breathing, no retractions or nasal flaring. 20:09 Abdomen/GI: Bowel sounds: normal, Palpation: soft, mild abdominal tenderness, in the right lower quadrant and left lower quadrant. 20:09 Back: Exam negative for acute changes. 20:09 : Exam negative for acute changes. 20:09 Musculoskeletal/extremity: Exam is negative for acute changes. 20:09 Skin: Exam negative for rash. 20:09 Neuro: Orientation: is normal, Mentation: is normal, Cranial nerves: grossly normal, Motor: is normal. Vital Signs: 15:59 BP 163 / 87; Pulse 69; Resp 17; Temp 97.4; Pulse Ox 99% ; Weight 80.74 kg; Height 5 ft. ll1 0 in. (152.40 cm); Pain 8/10; 19:50 BP 142 / 76; Pulse 59; Resp 16 S; Temp 98(O); Pulse Ox 96% on R/A; Pain 8/10; bb 21:45 BP 165 / 92; Pulse 65; Resp 16 S; Pulse Ox 98% ; bb 22:41 BP 144 / 86; Pulse 61; Resp 16 S; Pulse Ox 98% on R/A; bb 05/28 01:57 BP 140 / 73; Pulse 62; Resp 16 S; Pulse Ox 97% on R/A; bb 05/27 15:59 Body Mass Index 34.76 (80.74 kg, 152.40 cm) ll1 MDM: 05/27 19:38 Patient medically screened. pkl 23:13 Data reviewed: vital signs, nurses notes, lab test result(s), radiologic studies. pkl 23:37 ED course: Discussed lab results and treatment plan ( I and D ) with patient and son. pkl Advised to follow up with Surgeon ( Dr. Allen ) in 2 to 3 days. patient and son understood instructions. 05/27 19:52 Order name: CBC with Diff pkl 05/27 19:52 Order name: Chem 7 pkl 05/27 19:52 Order name: Sed Rate; Complete Time: 22:33 pkl 05/27 19:52 Order name: CRP; Complete Time: 22:33 pkl 05/27 19:52 Order name: Wound Culture pkl 05/27 19:52 Order name: Blood Culture Adult (2) pkl 05/27 19:52 Order name: Lactate; Complete Time: 22:33 pkl 05/27 19:52 Order name: CBC with Automated Diff; Complete Time: 22:33 EDMS 05/27 19:52 Order name: Basic Metabolic Panel; Complete Time: 22:33 EDMS 05/27 23:28 Order name: SARS-COV-2 RT PCR; Complete Time: 23:44 EDMS Administered Medications: 21:30 Drug: NS 0.9% 1000 ml Route: IV; Rate: 125 ml/hr; Site: left antecubital; bb 05/28 02:23 Follow up: IV Status: Completed infusion; IV Intake: 250ml bb 00:23 Drug: vancoMYCIN 1 grams Route: IVPB; Infused Over: 2 hrs; Site: left antecubital; bb 02:23 Follow up: IV Status: Completed infusion; IV Intake: 250ml bb 01:08 Drug: [place] (HYDROcodone-acetaminophen) (7.5 mg-325 mg) 1 tabs Route: PO; bb 01:58 Follow up: Response: No adverse reaction; Pain is decreased; RASS: Alert and Calm (0) bb Disposition Summary: 05/27/21 23:42 Discharge Ordered Location: Home pkl Problem: new pkl Symptoms: have improved pkl Condition: Stable pkl Diagnosis - Cellulitis/ Abscess left leg pkl Followup: pkl - With: Herb Allen MD - When: 2 - 3 days - Reason: Re-evaluation by your physician Discharge Instructions: - Discharge Summary Sheet pkl Forms: - Medication Reconciliation Form pkl - Thank You Letter pkl - Antibiotic Education pkl - Prescription Opioid Use pkl Prescriptions: - Augmentin 875-125 mg Oral Tablet - take 1 tablet by ORAL route every 12 hours for 7 days; 14 tablet; Refills: 0, pkl Product Selection Permitted Signatures: Dispatcher [employer] EDMS Shan Luevano MD MD pkl Kasey Manning RN RN Yara Rose RN RN ll1 Corrections: (The following items were deleted from the chart) 05/27 19:53 19:53 HEMOGLOBIN A1C+CHEM A1C.LAB.BRZ ordered. EDMS EDMS 22:19 19:53 CORONAVIRUS+MR.LAB.BRZ ordered. EDMS EDMS
[2021-05-27] MEDS ORDERED: LIDOCAINE 1% MPF 5 ML VIAL ONE (23:47)
[2021-05-27] MEDS ORDERED: NA CHLORIDE 0.9% 250 ML ONE (23:58)
[2021-05-28] MEDS ORDERED: HYDROCODONE/APAP 7.5/325 MG TAB ONE (01:31)
[2021-05-28 02:40] VITALS: TEMP 98
[2021-05-28 02:47] VITALS: BP 140/73; O2SAT 97
== END 2021-05-28 02:31 | disposition home or self-care (01) ==
LOC: ER 15:41
DX: L03.116 Cellulitis of left lower limb (principal); I10 Essential (primary) hypertension; Z88.6 Allergy status to analgesic agent; Z20.822 Contact with and (suspected) exposure to COVID-19
CPT/HCPCS: 87040 ×2; 87070; 85025; 80048; 36415; 87205; 83605; 85652; 86140; U0003; J7050; J7030

== ENCOUNTER 2021-07-16 19:25 | Observation (INO) | payer OTHER ==
--- NOTE | 2021-07-16 22:04 | RAD REPORT ---
EXAM DESCRIPTION: RAD - Chest Single View - 07/16/2021 9:49 pm CLINICAL HISTORY: CHEST PAIN COMPARISON: Chest Single View dated 05/31/2020; Chest Single View dated 05/24/2020 FINDINGS: Lines: None. Lungs: Improved aeration of the lungs compared with 05/31/2020. No definite edema. No consolidation i s identified. Pleural: No significant pleural effusions or pneumothorax. Cardiac: Cardiomegaly. Bones: No acute fractures. Other: IMPRESSION: No acute cardiopulmonary disease. Improved aeration compared with prior.
[2021-07-16] MEDS ORDERED: ASPIRIN 81 MG CHEWABLE TABLET ONE (22:40)
[2021-07-16] MEDS ORDERED: MORPHINE 4 MG/ML SYR ONE (23:15)
[2021-07-16] MEDS ORDERED: ONDANSETRON 4 MG/2 ML VIAL ONE (23:16)
[2021-07-17] MEDS ORDERED: MORPHINE 4 MG/ML SYR ONE ×2 (00:18→05:05)
[2021-07-17 00:46] LABS: Absolute Lymphocytes (CBC) 2.6 K/uL (0.7-4.9); Basophils % 0.6 % (0-1.3); Hematocrit 40.1 % (36.0-45.0); Lymphocytes % 35.8 % (15.3-44.8); MPV 9.3 fL (7.6-11.3); RBC Red Blood Cell Count 4.45 M/uL (3.86-4.86)
[2021-07-17 00:49] LABS: Protime INR 0.99
[2021-07-17 00:58] LABS: ALT/SGPT 34 U/L (12-78); AST/SGOT 21 U/L (15-37); Albumin 3.6 g/dL (3.4-5.0); Alkaline Phosphatase 93 U/L (45-117); BUN Blood Urea Nitrogen 17 mg/dL (7-18); Bicarbonate 26 mmol/L (21-32); Bilirubin Direct 0.1 mg/dL (0-0.2); Bilirubin Total 0.6 mg/dL (0.2-1.0); Glucose Level 157 mg/dL (74-106); Magnesium 1.9 mg/dL (1.8-2.4); NT PRO-BNP 103 pg/mL (<125); Potassium 3.6 mmol/L (3.5-5.1); Protein, Total 7.5 g/dL (6.4-8.2); Sodium Level 144 mmol/L (136-145); Troponin (Emerg Dept Use Only) < 0.02 ng/mL (0.0-0.045)
--- NOTE | 2021-07-17 01:12 | EDPHYS ---
Physician Documentation [facility] Name: Sapphire Martinez Age: 71 yrs Sex: Female : 1950 Arrival Date: 07/16/2021 Time: 19:27 Bed 13 Private MD: ED Physician Ian Jean HPI: 07/17 00:16 This 71 yrs old Female presents to ER via Ambulatory with complaints of Chest kb Pain > 30 y/o. 00:16 The patient or guardian reports chest pain that is located primarily in the anterior kb chest wall, left. Onset: 4 hour(s) ago. The pain radiates to the left shoulder, left neck. Associated signs and symptoms: The patient has no apparent associated signs or symptoms. The chest pain is described as a pressure. Duration: The patient or guardian reports a single episode, that is still ongoing. Modifying factors: The symptoms are alleviated by nothing. the symptoms are aggravated by nothing. Severity of pain: At its worst the pain was moderate in the emergency department the pain is unchanged. The patient has not experienced similar symptoms in the past. The patient has not recently seen a physician. Historical: - Allergies: 07/16 21:05 Advil; wg - PMHx: 21:05 Diabetes - NIDDM; Hypertension; Hyperlipidemia; wg - Social history:: Smoking status: Patient denies any tobacco usage or history of. ROS: 07/17 00:15 Constitutional: Negative for fever, chills, and weight loss. kb Cardiovascular: Positive for chest pain, Negative for edema, orthopnea, palpitations, paroxysmal nocturnal dyspnea. All other systems are negative. Exam: 00:15 Constitutional: This is a well developed, well nourished patient who is awake, alert, kb and in no acute distress. Head/Face: Normocephalic, atraumatic. ENT: Moist Mucous membranes Cardiovascular: Regular rate and rhythm with a normal S1 and S2. No gallops, murmurs, or rubs. No pulse deficits. Respiratory: Respirations even and unlabored. No increased work of breathing, no retractions or nasal flaring. Skin: Warm, dry with normal turgor. Normal color. MS/ Extremity: Pulses equal, no cyanosis. Neurovascular intact. Full, normal range of motion. Neuro: Awake and alert, GCS 15, oriented to person, place, time, and situation. Moves all extremities. Normal gait. Psych: Awake, alert, with orientation to person, place and time. Behavior, mood, and affect are within normal limits. 00:54 ECG was reviewed by the Attending Physician. Vital Signs: 07/16 20:56 BP 191 / 105; Pulse 68; Resp 18; Temp 98.3; Pulse Ox 96% on R/A; Weight 77.11 kg; wg Height 5 ft. 1 in. (154.94 cm); Pain 3/10; 20:56 Body Mass Index 32.12 (77.11 kg, 154.94 cm) wg MDM: 21:01 Patient medically screened. kb 07/17 00:16 The patient was given aspirin in the Emergency Department. Data reviewed: vital signs, nurses notes. Data interpreted: Pulse oximetry: on room air is 96 %. Interpretation: normal. 01:06 Counseling: I had a detailed discussion with the patient and/or guardian regarding: the historical points, exam findings, and any diagnostic results supporting the discharge/admit diagnosis, lab results, radiology results, the need for further work-up and treatment in the hospital. 01:10 Physician consultation: Travis WAKEFIELD was contacted at 01:10, regarding admission, patient's condition, and will see patient in ED, shortly. 07/16 21:02 Order name: Basic Metabolic Panel 07/16 21:02 Order name: CBC with Diff; Complete Time: 00:48 kb 07/16 21:02 Order name: LFT's; Complete Time: 01:05 07/16 21:02 Order name: Magnesium; Complete Time: 01:05 07/16 21:02 Order name: NT PRO-BNP; Complete Time: 01:05 kb 07/16 21:02 Order name: PT-INR; Complete Time: 01:05 07/16 21:02 Order name: Troponin (emerg Dept Use Only); Complete Time: 01:05 kb 07/16 21:02 Order name: Basic Metabolic Panel; Complete Time: 01:05 EDNV 07/17 00:10 Order name: SARS-COV-2 RT PCR; Complete Time: 00:12 EDMS 07/17 05:09 Order name: CBC with Automated Diff EDMS 07/17 05:19 Order name: Comprehensive Metabolic Panel EDMS 07/17 05:19 Order name: Phosphorus EDMS 07/17 05:19 Order name: Troponin I EDMS 07/16 21:02 Order name: XRAY Chest (1 view); Complete Time: 22:06 kb 07/16 21:02 Order name: EKG; Complete Time: 21:02 kb 07/17 05:19 Order name: Lipid Profile EDMS 07/17 05:19 Order name: T4 Free EDNV 07/17 05:19 Order name: Magnesium EDMS 07/17 05:19 Order name: Thyroid Stimulating Hormone EDMS 07/17 05:39 Order name: Hemoglobin A1c EDMS 07/17 10:17 Order name: Glucose, Ancillary Testing EDMS 07/17 11:54 Order name: Troponin I EDMS 07/16 21:02 Order name: Cardiac monitoring; Complete Time: 00:18 kb 07/16 21:02 Order name: EKG - Nurse/Tech; Complete Time: 22:48 kb 07/16 21:02 Order name: IV Saline Lock; Complete Time: 00:18 kb 07/16 21:02 Order name: Labs collected and sent; Complete Time: 00:18 kb 07/16 21:02 Order name: O2 Per Protocol; Complete Time: 00:18 kb 07/16 21:02 Order name: O2 Sat Monitoring; Complete Time: 00:18 kb 07/17 01:19 Order name: CONS Physician Consult EDMS EC:54 Rate is 81 beats/min. Rhythm is regular. QRS [place] is Normal. NE interval is normal at kb 158 msec. QRS interval is normal at 80 msec. QT interval is normal at 428 msec. Administered Medications: 07/16 23:15 Drug: morphine 4 mg Route: IVP; Site: right antecubital; bs2 07/17 00:17 Follow up: Response: No adverse reaction bs2 07/16 23:15 Drug: Zofran (Ondansetron) 4 mg Route: IVP; Site: right antecubital; bs2 07/17 00:17 Follow up: Response: No adverse reaction bs2 00:01 Drug: morphine 4 mg Route: IVP; Site: right antecubital; bs2 02:48 Follow up: Response: No adverse reaction bs2 00:15 Not Given (pt allergy ): Aspirin Chewable Tablet 324 mg PO once; 81 mg tablets x 4 bs2 01:29 Drug: fentaNYL (PF) 25 mcg Route: IVP; Site: right antecubital; bs2 04:25 Follow up: Response: No adverse reaction bs2 01:30 Drug: hydrALAZINE 5 mg Route: IVP; Site: right antecubital; bs2 04:25 Follow up: Response: No adverse reaction bs2 04:07 CANCELLED (Other Intervention Used): hydrALAZINE 10 mg IVP once bb Disposition: 07/18 07:14 Co-signature as Attending Physician, Ian Jean MD I agree with the assessment and el plan of care. Disposition Summary: 07/17/21 01:11 Hospitalization Ordered Hospitalization Status: Observation kb Provider: Antonino Holt Condition: Stable kb Problem: new kb Symptoms: are unchanged kb Bed/Room Type: Standard kb Location: [facility] ER HOLD(07/17/21 01:49) cg Room Assignment: ERHOLD-(07/17/21 01:49) cg Diagnosis - Chest pain, unspecified kb Forms: - Medication Reconciliation Form kb - SBAR form kb Signatures: Dispatcher [employer] [facility] Alpa Rollins, PHOTOGRAPHY TEACHER-C PHOTOGRAPHY TEACHER-Ckb Ian Jean MD MD cha Ballard, Brenda, RN RN Dina Medellin, RN RN cg Ramya Flanagan RN RN bs2 Matheus Jones RN wg Corrections: (The following items were deleted from the chart) 07/16 23:02 21:02 CORONAVIRUS+BRZ ordered. [facility] 07/17 01:49 01:11 Telemetry/MedSurg (observation) kb cg 01:49 01:11 kb cg 04:07 01:06 hydrALAZINE 10 mg IVP once ordered. kb bb 04:07 04:07 hydrALAZINE 10 mg IVP once ordered. bb bb
--- NOTE | 2021-07-17 01:12 | ER ---
Nurse's Notes [facility] Name: Sapphire Martinez Age: 71 yrs Sex: Female : 1950 Arrival Date: 07/16/2021 Time: 19:27 Bed 13 Private MD: Diagnosis: Chest pain, unspecified Presentation: 07/16 20:56 Chief complaint: Patient states: Pt is [place] citizen speaking, interpretation/ipad used. Pt wg states pain started 4 hours ago. Pain in her chest and left neck and left shoulder. Denies SOB, N/V/D, dizziness. Pt denies any previous history of similar episode. Coronavirus screen: Vaccine status: Patient reports receiving the 2nd dose of the covid vaccine. Date March 27, 2021. Ebola Screen: Patient negative for fever greater than or equal to 101.5 degrees Fahrenheit, and additional compatible Ebola Virus Disease symptoms Patient denies exposure to infectious person. Patient denies travel to an Ebola-affected area in the 21 days before illness onset. No symptoms or risks identified at this time. Initial Sepsis Screen: Does the patient meet any 2 criteria? No. Patient's initial sepsis screen is negative. Does the patient have a suspected source of infection? No. Patient's initial sepsis screen is negative. Risk Assessment: Do you want to hurt yourself or someone else? Patient reports no desire to harm self or others. Onset of symptoms was July 16, 2021 at 17:00. 20:56 Method Of Arrival: Ambulatory 20:56 Acuity: TONY 3 wg Triage Assessment: 21:05 General: Appears uncomfortable, obese, well groomed, Behavior is calm, cooperative, wg appropriate for age. Pain: Complains of pain in Left neck, shoulder, chest. Cardiovascular: Reports chest pain, Denies diaphoresis, lightheadedness, nausea, shortness of breath, vomiting. Respiratory: No deficits noted. Historical: - Allergies: 21:05 Advil; wg - PMHx: 21:05 Diabetes - NIDDM; Hypertension; Hyperlipidemia; wg - Social history:: Smoking status: Patient denies any tobacco usage or history of. Vital Signs: 20:56 BP 191 / 105; Pulse 68; Resp 18; Temp 98.3; Pulse Ox 96% on R/A; Weight 77.11 kg; wg Height 5 ft. 1 in. (154.94 cm); Pain 3/10; 20:56 Body Mass Index 32.12 (77.11 kg, 154.94 cm) ED Course: 19:27 Patient arrived in ED. wm 21:01 Alpa Rollins FNP-C [facility] kb 21:01 Ian Jean MD is Attending Physician. kb 21:05 Triage completed. wg 21:05 Arm band placed on right wrist. wg 21:34 Ramya Flanagan, RN is Primary Nurse. bs2 21:50 XRAY Chest (1 view) In Process Unspecified. EDMS 07/17 00:18 Troponin (emerg Dept Use Only) Sent. bs2 00:18 PT-INR Sent. bs2 00:18 NT PRO-BNP Sent. bs2 00:18 Magnesium Sent. bs2 00:18 LFT's Sent. bs2 00:18 CBC with Diff Sent. bs2 00:18 Basic Metabolic Panel Sent. bs2 00:18 Basic Metabolic Panel Sent. bs2 01:11 Antonino Holt is Hospitalizing Provider. kb Administered Medications: 07/16 23:15 Drug: morphine 4 mg Route: IVP; Site: right antecubital; bs2 07/17 00:17 Follow up: Response: No adverse reaction bs2 07/16 23:15 Drug: Zofran (Ondansetron) 4 mg Route: IVP; Site: right antecubital; bs2 07/17 00:17 Follow up: Response: No adverse reaction bs2 00:01 Drug: morphine 4 mg Route: IVP; Site: right antecubital; bs2 02:48 Follow up: Response: No adverse reaction bs2 00:15 Not Given (pt allergy ): Aspirin Chewable Tablet 324 mg PO once; 81 mg tablets x 4 bs2 01:29 Drug: fentaNYL (PF) 25 mcg Route: IVP; Site: right antecubital; bs2 04:25 Follow up: Response: No adverse reaction bs2 01:30 Drug: hydrALAZINE 5 mg Route: IVP; Site: right antecubital; bs2 04:25 Follow up: Response: No adverse reaction bs2 04:07 CANCELLED (Other Intervention Used): hydrALAZINE 10 mg IVP once bb Outcome: 01:11 Decision to Hospitalize by Provider. kb 14:27 Patient left the ED. ss Signatures: Dispatcher [employer] EDMS Alpa Rollins, KENNETH-Chelsie COOPER-Monika Montgomery RN RN Elizabeth Fields Bridget, RN RN bs2 Matheus Jones, LUISA Kasey Manning RN bb Corrections: (The following items were deleted from the chart) 04:07 01:29 hydrALAZINE 5 mg IVP in right antecubital bs2 bb 04: 02:43 Response: No adverse reaction bs2 bb 04: 02:47 only 5 mg given pt BP was corrected. bs2 bb
[2021-07-17] MEDS ORDERED: HYDRALAZINE HCL 20 MG/ML VIAL ONE (01:36)
[2021-07-17] MEDS ORDERED: FENTANYL CITR 100 MCG/2 ML ONE (01:36)
--- NOTE | 2021-07-17 02:40 | P.HP ---
Certification for Inpatient Patient admitted to: Observation With expected LOS: <2 Midnights Patient will require the following post-hospital care: None Practitioner: I am a practitioner with admitting privileges, knowledge of patient current condition, hospital course, and medical plan of care. Services: Services provided to patient in accordance with Admission requirements found in Title 42 Section 412.3 of the Code of Federal Regulations Patient History Date of Service: 07/17/21 Reason for admission: chest pain History of Present Illness: Ms. Martinez is a 71 yo F with HTN, DM, HLD who presents with 10/10 leftsided neck, chest and shoulder pain and numbness beginning at 5pm. She said she was trying to park when someone took her spot so she asked them to move which they did and then the pain began and she felt 'sad'. Also reports SOB. Denies nausea, vomiting, dizziness, lightheadedness. Troponin wnl. Last saw a main entree cook and cashier 1 year ago with normal workup. Pain improved to 6/10 with morphine, and is now resolved. Of note, she has a wound on her left calf that she says she saw a doctor for a month ago and took 7 days of antibiotics. The wound is not packed, is draining, and is dressed with a regular bandage. Allergies ibuprofen [From Advil] Allergy (Verified 05/25/20 02:31) Unknown Home Medications: Aspirin [Aspirin EC 81 MG] 1 tab PO DAILY 05/25/20 Atorvastatin Calcium [Lipitor] 40 mg PO BEDTIME 05/25/20 Glipizide [Glipizide ER] 5 mg PO BID 05/25/20 Metformin HCl 1,000 mg PO BID 05/25/20 Omeprazole [Prilosec] 40 mg PO DAILY 05/25/20 Albuterol Inhaler [Ventolin Inhaler*] 2 puff IH Q6H PRN #1 hfa.aer.ad 05/29/20 Azithromycin [Zithromax] 250 mg PO DAILY #5 tablet 05/29/20 Benzonatate [Tessalon Perle] 200 mg PO TID PRN #30 cap 05/29/20 Guaifen W/Codeine Syrup [ROBITUSSIN A-C Syrup*] 10 ml PO BID PRN #100 ml 05/29/20 predniSONE [Prednisone*] 20 mg PO SEECOM #20 tab 05/29/20 Apixaban [Eliquis] 5 mg PO BID #14 tablet 06/01/20 Ascorbic Acid [Vitamin C*] 500 mg PO TID #21 tablet 06/01/20 Insulin 70/30 NPH/Reg Human [Novolin 70/30*] 20 unit SQ BIDAC ml 06/01/20 Melatonin [Melatonin*] 3 mg PO BEDTIME tablet 06/01/20 Midodrine HCl [Proamatine*] 5 mg PO TID #30 tab 06/01/20 Thiamine HCl [Vitamin B-1*] 100 mg PO DAILY #15 tablet 06/01/20 Zinc Sulfate [Zinc Sulfate*] 220 mg PO DAILY #15 cap 06/01/20 - Past Medical/Surgical History Diabetic: Yes -: Htn -: NIDDM -: Hyperlipdemia -: removal of pancreas -: hysterectomy -: knee surgery - Family History Family History: Reviewed- Non-Contributory - Social History Smoking Status: Never smoker Alcohol use: No CD- Drugs: No Caffeine use: Yes Place of Residence: Home Review of Systems 10-point ROS is otherwise unremarkable Respiratory: Shortness of Breath Cardiovascular: Chest Pain Musculoskeletal: Neck Pain, Shoulder Pain, Arm Pain Integumentary: Lesions Physical Examination - Physical Exam General: Alert, In no apparent distress, Oriented x3, Cooperative HEENT: Atraumatic, PERRLA, Mucous membr. moist/pink, EOMI, Sclerae nonicteric Neck: Supple, 2+ carotid pulse no bruit, No LAD, Without JVD or thyroid abnormality Respiratory: Clear to auscultation bilaterally, Normal air movement Cardiovascular: Regular rate/rhythm, Normal S1 S2 Gastrointestinal: Normal bowel sounds, No tenderness Musculoskeletal: No tenderness Integumentary: Diabetic ulcer Neurological: Normal gait, Normal speech, Normal strength at 5/5 x4 extr, Normal tone, Normal affect Lymphatics: No axilla or inguinal lymphadenopathy - Studies Laboratory Data (last 24 hrs) 07/17/21 00:25: PT 11.4, INR 0.99 07/17/21 00:25: WBC 7.30, Hgb 13.2, Hct 40.1, Plt Count 206 07/17/21 00:25: Sodium 144, Potassium 3.6, BUN 17, Creatinine 0.51 L, Glucose 157 H, Magnesium 1.9, Total Bilirubin 0.6, AST 21, ALT 34, Alkaline Phosphatase 93 Assessment and Plan - Problems (Diagnosis) (1) Chest pain Current Visit: Yes Status: Acute Qualifiers: Chest pain type: unspecified Qualified Code(s): R07.9 - Chest pain, unspecified (2) Hyperlipidemia Current Visit: No Status: Chronic Qualifiers: Hyperlipidemia type: unspecified Qualified Code(s): E78.5 - Hyperlipidemia, unspecified (3) Hypertension Current Visit: No Status: Chronic Qualifiers: Hypertension type: primary hypertension Qualified Code(s): I10 - Essential (primary) hypertension (4) Type II diabetes mellitus Current Visit: No Status: Chronic Qualifiers: 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 penitentiary insulin use status Diabetes mellitus complication status: without complication Qualified Code(s): E11.9 - Type 2 diabetes mellitus without complications - Plan cardiology consulted trend troponins, repeat EKG, on tele daily metoprolol, atorvastatin, ASA prn morphine and NTG lipid and thyroid panel pending reconcile and continue home medications wound culture pending, wound care consulted sliding scale insulin and accuchecks, A1c pending DVT ppx Discharge Plan: Home Plan to discharge in: 24 Hours - Advance Directives Does patient have a Living Will: No Does patient have a Durable POA for Healthcare: No - Code Status/Comfort Care Code Status Assessed: Yes (full code ) Critical Care: No Time Spent Managing Pts Care (In Minutes): 70
[2021-07-17] MEDS ORDERED: ACETAMINOPHEN 500 MG TAB PO PRN (03:08)
[2021-07-17] MEDS ORDERED: ONDANSETRON 4 MG/2 ML VIAL IV PRN (03:08)
[2021-07-17] MEDS ORDERED: NITROGLYCERIN 0.4 MG/TAB SL PRN (03:08)
[2021-07-17] MEDS ORDERED: HYDRALAZINE HCL 20 MG/ML VIAL IV PRN (03:08)
[2021-07-17] MEDS ORDERED: MORPHINE 2 MG/ML SYR IV PRN (03:08)
[2021-07-17 05:02] LABS: Absolute Lymphocytes (CBC) 2.3 K/uL (0.7-4.9); Basophils % 0.7 % (0-1.3); Hematocrit 39.8 % (36.0-45.0); Lymphocytes % 30.3 % (15.3-44.8); MPV 9.2 fL (7.6-11.3); RBC Red Blood Cell Count 4.45 M/uL (3.86-4.86)
[2021-07-17 05:18] LABS: ALT/SGPT 33 U/L (12-78); AST/SGOT 20 U/L (15-37); Albumin 3.4 g/dL (3.4-5.0); Alkaline Phosphatase 91 U/L (45-117); BUN Blood Urea Nitrogen 17 mg/dL (7-18); Bicarbonate 27 mmol/L (21-32); Bilirubin Total 0.7 mg/dL (0.2-1.0); Glucose Level 144 mg/dL (74-106); HDL Cholesterol 50 mg/dL (40-60); LDL Cholesterol, Calculated 103 (<130); Magnesium 1.9 mg/dL (1.8-2.4); Phosphorus 3.6 mg/dL (2.5-4.9); Potassium 3.2 mmol/L (3.5-5.1); Protein, Total 7.2 g/dL (6.4-8.2); Sodium Level 144 mmol/L (136-145); Troponin I < 0.02 ng/mL (0.0-0.045)
[2021-07-17] MEDS ORDERED: METOPROLOL TAR 25 MG TAB PO SCH (06:00)
[2021-07-17] MEDS ORDERED: INSULIN -REGULAR HUMAN 50 UNIT/0.5 ML ML SQ SCH (07:30)
[2021-07-17] MEDS ORDERED: ENOXAPARIN 40 MG/0.4 ML SQ SCH (09:00)
[2021-07-17] MEDS ORDERED: ASPIRIN EC 81 MG TAB PO SCH (09:00)
[2021-07-17 09:31] VITALS: O2SAT 94
[2021-07-17] MEDS ORDERED: ASPIRIN EC 81 MG TAB PO ONE (10:14)
[2021-07-17] MEDS ORDERED: ENOXAPARIN 40 MG/0.4 ML SQ ONE (10:15)
--- NOTE | 2021-07-17 10:23 | EKG ---
Test Date: 2021-07-16 Test Time: 22:43:25 Transition Coach: FILI MEASUREMENT RESULTS: Intervals: Rate: 81 NJ: 158 QRSD: 80 QT: 428 QTc: 497 [place]: P: 66 NJ: 158 QRS: 19 T: 58 INTERPRETIVE STATEMENTS: Normal sinus rhythm Nonspecific T wave abnormality Abnormal ECG Compared to ECG 06/02/2020 04:17:30 T-wave abnormality now present Sinus bradycardia no longer present Left ventricular hypertrophy no longer present Early repolarization no longer present Electronically Signed On 07-17-21 10:21:46 CDT by Aydin Meier
[2021-07-17 11:18] VITALS: BP 130/68; TEMP 98.1
[2021-07-17] MEDS ORDERED: INSULIN -REGULAR HUMAN 50 UNIT/0.5 ML ML ONE (12:06)
--- NOTE | 2021-07-17 13:14 | P.DS ---
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 She also reported SOB. Troponin wnl. Last saw a indirect sales representative 1 year ago with normal workup. Of note, she has a wound on her left calf that she says she saw a doctor for a month ago and took 7 days of antibiotics. Patient hospitalized for ACS rule out. Hospital Course: Patient placed under observation on the medical floor. Troponin trended negative. She was asymptomatic during the hospital stay. She was placed on aspirin and beta-lalita. Noted patient is on midodrine. ACS has been ruled out. Case discussed with cardiology. Patient will follow with Dr. Meier for arrangement for stress test as an outpatient. He is also informed to follow with wound Care Clinic for her left leg wound care. Vital Signs/Physical Exam: Temp Pulse Resp BP Pulse Ox 98.1 F 83 17 130/68 99 07/17/21 11:16 07/17/21 11:16 07/17/21 11:16 07/17/21 11:16 07/17/21 11:16 General: Alert, In no apparent distress, Oriented x3 HEENT: Mucous membr. moist/pink, Sclerae nonicteric Neck: JVD not distended Respiratory: Clear to auscultation bilaterally, Normal air movement Cardiovascular: No edema, Regular rate/rhythm, Normal S1 S2 Gastrointestinal: Soft and benign, Non-distended, No tenderness Musculoskeletal: No swelling Integumentary: Other (Wound on the lateral aspect of the left leg.) Neurological: Normal strength at 5/5 x4 extr Laboratory Data at Discharge: WBC 7.70 K/uL (4.3-10.9) 07/17/21 04:35 Hgb 13.1 g/dL (12.0-15.0) 07/17/21 04:35 Hct 39.8 % (36.0-45.0) 07/17/21 04:35 Plt Count 206 K/uL (152-406) 07/17/21 04:35 PT 11.4 SECONDS (9.5-12.5) 07/17/21 00:25 INR 0.99 07/17/21 00:25 Sodium 144 mmol/L (136-145) 07/17/21 04:35 Potassium 3.2 mmol/L (3.5-5.1) L 07/17/21 04:35 BUN 17 mg/dL (7-18) 07/17/21 04:35 Creatinine 0.47 mg/dL (0.55-1.3) L 07/17/21 04:35 Glucose 144 mg/dL (74-106) H 07/17/21 04:35 Phosphorus 3.6 mg/dL (2.5-4.9) 07/17/21 04:35 Magnesium 1.9 mg/dL (1.8-2.4) 07/17/21 04:35 Total Bilirubin 0.7 mg/dL (0.2-1.0) 07/17/21 04:35 AST 20 U/L (15-37) 07/17/21 04:35 ALT 33 U/L (12-78) 07/17/21 04:35 Alkaline Phosphatase 91 U/L (45-117) 07/17/21 04:35 Troponin I < 0.02 ng/mL (0.0-0.045) 07/17/21 11:10 Triglycerides 106 mg/dL (<150) 07/17/21 04:35 Cholesterol 174 mg/dL (<200) 07/17/21 04:35 HDL Cholesterol 50 mg/dL (40-60) 07/17/21 04:35 Cholesterol/HDL Ratio 3.48 07/17/21 04:35 Home Medications: Aspirin [Aspirin EC 81 MG] 1 tab PO DAILY 05/25/20 Atorvastatin Calcium [Lipitor] 40 mg PO BEDTIME 05/25/20 Glipizide [Glipizide ER] 5 mg PO BID 05/25/20 Metformin HCl 1,000 mg PO BID 05/25/20 Omeprazole [Prilosec] 40 mg PO DAILY 05/25/20 Albuterol Inhaler [Ventolin Inhaler*] 2 puff IH Q6H PRN #1 hfa.aer.ad 05/29/20 Benzonatate [Tessalon Perle*] 200 mg PO TID PRN #30 cap 05/29/20 Guaifen W/Codeine Syrup [ROBITUSSIN A-C Syrup*] 10 ml PO BID PRN #100 ml 05/29/20 Apixaban [Eliquis] 5 mg PO BID #14 tablet 06/01/20 Ascorbic Acid [Vitamin C*] 500 mg PO TID #21 tablet 06/01/20 Insulin 70/30 NPH/Reg Human [Novolin 7030*] 20 unit SQ BIDAC ml 06/01/20 Melatonin [Melatonin*] 3 mg PO BEDTIME tablet 06/01/20 Midodrine HCl [Proamatine*] 5 mg PO TID #30 tab 06/01/20 Thiamine HCl [Vitamin B-1*] 100 mg PO DAILY #15 tablet 06/01/20 Zinc Sulfate [Zinc Sulfate*] 220 mg PO DAILY #15 cap 06/01/20 Nitroglycerin [Nitrostat*] 0.4 mg SL UD PRN #20 tab 07/17/21 New Medications: Nitroglycerin [Nitrostat*] 0.4 mg SL UD PRN #20 tab PRN Reason: Pain Scale 2-4 (Mild) Physician Discharge Instructions: Follow up with wound Care Clinic within 1 for the left leg wound care. Diet: ADA Activity: Ad leah Followup: NONE,NONE [Primary Care Provider] - Aydin Meier MD [ACTIVE - CAN ADMIT] - 1 Week (Follow up with Dr. Meier for arrangement for stress test. Call the office at [phone].)
--- NOTE | 2021-07-17 13:50 | ECHO ---
HEIGHT: 5 ft 1 in WEIGHT: 169 lb 15.975 oz DATE OF STUDY: 07/17/[address]: Aydin Meier MD 2-DIMENSIONAL: YES M.MODE: YES DOPPLER: YES COLOR FLOW: YES TDS: NO PORTABLE: NO DEFINITY: NO BUBBLE STUDY: NO DIAGNOSIS: CHEST PAIN CARDIAC HISTORY: CATHERIZATION: NO SURGERY: NO PROSTHETIC VALVE: NO PACEMAKER: NO MEASUREMENTS (cm) DIASTOLIC (NORMALS) SYSTOLIC (NORMALS) IVSd 1.0 (0.6-1.2) LA Diam 2.7 (1.9-4.0) LVEF 69% LVIDd 3.8 (3.5-5.7) LVIDs 2.4 (2.0-3.5) %FS 38% LVPWd 1.1 (0.6-1.2) Ao Diam 2.6 (2.0-3.7) 2 DIMENSIONAL ASSESSMENT: RIGHT ATRIUM: NORMAL LEFT ATRIUM: NORMAL RIGHT VENTRICLE: NORMAL LEFT VENTRICLE: NORMAL TRICUSPID VALVE: NORMAL MITRAL VALVE: NORMAL PULMONIC VALVE: NORMAL AORTIC VALVE: NORMAL PERICARDIAL EFFUSION: NONE AORTIC ROOT: NORMAL LEFT VENTRICULAR WALL MOTION: NORMAL DOPPLER/COLOR FLOW: NORMAL COMMENTS: NORMAL 2D ECHOCARDIOGRAM WITH DOPPLER. NO WALL MOTION ABNORMALITY. NO EFFUSION. TECHNOLOGIST: Shahbaz CHAWLA
[2021-07-17] MEDS ORDERED: ATORVASTATIN 40 MG TAB PO SCH (21:00)
--- NOTE | 2021-07-18 16:07 | CON ---
Date of Consultation: 07/17/2021 Reason For Consultation: Chest pain. History Of Present Illness: This 71-year-old woman has a history of diabetes, hypertension, dyslipid emia, paroxysmal atrial fibrillation. She takes Eliquis for that. She came in with atypical chest p ain, sharp stabbing. No nausea, no vomiting, no diaphoresis. Denied PND, orthopnea, pedal edema, pa lpitation, or syncope. Denied any fever or chills. Her chest pain was not exertional. She has alre crystal ruled out for an PR. Her potassium was 3.2, otherwise her data was normal. Past Medical History: As stated above. Allergies: TO MOTRIN. Review of Systems: Negative. Social History: Negative. Family History: Negative. Medications: Include inhalers, Eliquis, aspirin, Lipitor, glipizide, insulin, metformin, midodrine, zinc and prednisone. Review of Systems: Negative. Social History: Negative. Family History: Negative. Physical Examination: Vital Signs: Stable, afebrile. General: Pleasant no acute distress. HEENT: Negative. Neck: Supple with no bruit. Chest: Clear to auscultation and percussion. Cardiac: Revealed a regular rhythm and rate with S4 gallops. No murmurs or rubs. Abdomen: Benign. Extremities: Revealed no clubbing, cyanosis, or edema. Diagnostic Data: Normal except for potassium 3.2. Impression And Plan: Chest pain, most likely gastric in origin. Echocardiogram is normal. EKG is u nremarkable. Troponin is negative without any significant rise. She can go home. I will wait for h er to have an outpatient Lexiscan. Her other problems including diabetes, hypertension, and dyslipid emia and chronic atrial fibrillation on Eliquis seem to be stable. Continue her present regimen. LAVONNE/BRANDEN Voice ID: [id number] Report ID: [id number]
== END 2021-07-17 14:27 | disposition home or self-care (01) ==
LOC: ER 19:25 → ERHOLD 07-17 01:18
PROVIDERS: ADMIT Internal Medicine; ATTEND Internal Medicine
DX: R07.9 Chest pain, unspecified (principal); I10 Essential (primary) hypertension; E11.9 Type 2 diabetes mellitus without complications; E78.5 Hyperlipidemia, unspecified; S81.802A Unspecified open wound, left lower leg, initial encounter; Z20.822 Contact with and (suspected) exposure to COVID-19; Z79.82 Long term (current) use of aspirin; Z79.01 Long term (current) use of anticoagulants; Z88.6 Allergy status to analgesic agent; Z90.710 Acquired absence of both cervix and uterus; Z90.410 Acquired total absence of pancreas
CPT/HCPCS: 93005; 93306; 85025 ×2; 80048; 36415; 83735 ×2; 84100; 85610; 80061; 82947; 80076; 84443; 83036; 84484 ×3; 84439; 80053; 83880; 71045; 94760 ×2; U0003; J0360; J1650; J3010; J2405; G0378

== ENCOUNTER 2024-06-04 12:58 | Observation (INO) | payer OTHER ==
--- OUTSIDE RECORDS SUMMARY | 2024-06-04 13:23 | XMS REPORT | Continuity of Care Document ---
Author Name Unknown Address [address] [facility] [address] [place] [address] [facility] Address [address] [facility] [address] [place] [address] Care Team Providers Care Construction Safety Consultant Name Role Phone Daniel [facility] Primary Care Physician PETRONA BURNETTE Attending Clinician Unavailable PRETTY ERNANDEZ Attending Clinician Unavailable PRETTY ERNANDEZ Attending Clinician Unavailable Petrona Burnette MD Attending Clinician FABIAN GARCIA Attending Clinician Unavailable MAURICIO_GCBZW_Kaazar_S Attending Clinician Unavaila ble NICHOLE PERSAUD Attending Clinician Unav ailable NICHOLE PERSAUD Attending Clinician Unav ailable Abdelrahman Leone RN Attending Clinician Unavail able KEISHA EAST Attending Clinician Unavailable Maxi Goldberg DO Attending Clinician [phone] Keisha East DO Attending Clinician [phone] Radiology Attending Clinician Unavailable RADIOLOGY Attending Clinician Unavailable CHRISTINA LOU Attending Clinician Unavailable BETSEY BOSS Attending Clinician Unavailable Betsey Boss NP Attending Clinician [phone] SALLY HODGE Attending Clinician Unav ailable Doctor Unassigned, Olin Attending Clinician U TANNER Bright Attending Clinician Unavailable SHANE KOHLER Attending Clinician Unavailable MONA MOSS Attending Clinician UnavailSOLOMON Berrios Attending Clinician Unavailable Solomon Millan MD Attending Clinician [phone] ALICIA FARRELL Attending Clinician Unavailable Moira ROONEY, Pretty Del Castillo Attending Clinician [phone] Unassigned, Cath/Ep Attending Clinician UnavailMAGGI Bradford Attending Clinician Unavailable Maggi Calloway MD Attending Clinician [phone] Lila Gallego MD Attending Clinician [phone] Cisco MORAN, Lisette Attending Clinician Unavailable KARTHIK AVILA Attending Clinician Unavailable Destiney Santillan S Attending Clinician [phone] Karthik Avila MD Attending Clinician [phone] [email or web address]_S Admitting Clinician Unavaila KEISHA Oliver Admitting Clinician Unavailable Keisha East DO Admitting Clinician [phone] CHRISTINA LOU Admitting Clinician Unavailable BETSEY BOSS Admitting Clinician Unavailable SALLY HODGE Admitting Clinician Unav ailSOLOMON Black Admitting Clinician Unavailable PETRONA BURNETTE Admitting Clinician Unavailable Petrona Burnette MD Admitting Clinician [phone] Payers Payer Name Policy Type Policy Number Effective Date Expirati on Date Source [employer] H[employer] SNP [id number] 2024 00:00:00 [facility] DUAL COMP H[facility] D SNP [id number] 2021 00:00:00 [place] [id number] 2023 00:00:00 [facility] (MEDICARE REPLACEMENT/[facility] GE - HMO) [id number] [facility] DUAL COMPLETE - DUAL ELIGIBLE - [facility] (MEDICARE-MEDICAID REPLACEMENT HMO) [id number] Problems Condition Name Condition Details Condition Category Status Onset Date Resolution Date Last Treatment Date Treating Clinician Comments Source Acute abdominal pain Acute abdominal pain Disease Active 2022-10 00:00: 00 [facility] Abnormal nuclear cardiac imaging test Abnormal nuclear cardiac imaging test Disease Active 2021-10 00:00: 00 Overview: Formattin g of this note might be different from the original. Added automatic ally from request for surgery [id number] [facility] PAF (paroxysma l atrial fibrillati on) PAF (paroxysma l atrial fibrillati on) Disease Active 2021-10 00:00: 00 Overview: Formattin g of this note might be different from the original. Added automatic ally from request for surgery [id number] [facility] Reflux gastritis Reflux gastritis Disease Active 2021-10 0- 00:00: 00 [facility] Primary hypertensi on Primary hypertensi on Disease Active 2021-10 0-05 00:00: 00 [facility] Other hyperlipid emia Other hyperlipid emia Disease Active 2021-10 0-05 00:00: 00 [facility] Elevated brain natriureti c peptide (BNP) level Elevated brain natriureti c peptide (BNP) level Disease Active 2021-10 0-05 00:00: 00 [facility] Type 2 diabetes mellitus without complicati on, without long-term current use of insulin Type 2 diabetes mellitus without complicati on, without long-term current use of insulin Disease Active 2021-10 0-05 00:00: 00 [facility] Obesity (BMI 30-39.9) Obesity (BMI 30-39.9) Disease Active 2021-10 0-05 00:00: 00 [facility] Ascending aorta dilatation Ascending aorta dilatation Disease Active 2021-10 0-05 00:00: 00 [facility] Anticoagul ant long-term use Anticoagul ant long-term use Disease Active 2021-10 0-05 00:00: 00 [facility] Chest pain, unspecifie d type Chest pain, unspecifie d type Disease Active 2021-10 0-04 00:00: 00 [facility] No known active problems No known active problems Disease [facility] Allergies, Adverse Reactions, Alerts Allergy Name Allergy Type Status Severity Reaction(s) Onset Date Inactive Date Treating Clinician Comments Source ENALAPRI L DRUG INGREDI Active COUGH 2021-10 0-11 00:00: 00 [facility] Enalapri l Propensi ty to adverse reaction s Active Cough 2021-10 0-11 00:00: 00 [facility] n Propensi ty to adverse reaction to drug Active 5- 00:00: 00 [facility] Advil - Oral Propensi ty to adverse reaction to drug Active 3- 00:00: 00 [facility] Ren[facility] Ibuprofe n Propensi ty to adverse reaction s Active Rash 1- 00:00: 00 [facility] IBUPROFE N DRUG INGREDI Active Rash 1- 00:00: 00 [facility] ibuprofe n DA Active U 4- 00:00: 00 [facility] KNOWN ALLERGIE S Drug Class Active [facility] Social History Social Habit Start Date Stop Date Quantity Comments Source Gender identity [facility] Sexual orientation U [facility] Alcohol intake 2024-01-02 00:00:00 2024-01-02 00:00:00 Lifetime non-drinker (finding) [facility] History of Social function 2024-01-02 00:00:00 2024-01-02 00:00:00 [facility] Exposure to SARS-CoV-2 (event) 2023-03-01 00:00:00 2023-03-11 19:20:00 Not sure [facility] History SDOH Food Worry 2022-08-05 00:00:00 2022-08-05 00:00:00 1 [facility] History SDOH Food Scarcity 2022-08-05 00:00:00 2022-08-05 00:00:00 1 [facility] History SDOH Transport Med 2022-08-05 00:00:00 2022-08-05 00:00:00 2 [facility] History SDOH Transport Non-Med 2022-08-05 00:00:00 2022-08-05 00:00:00 2 [facility] Tobacco use and exposure 2021-10-29 00:00:00 2021-10-29 00:00:00 Smokeless tobacco non-user [facility] Sex Assigned At 1950 00:00:00 1950 00:00:00 [facility] Smoking Status Start Date Stop Date Source Unknown if ever smoked Unive [facility] Never smoked tobacco [facility] Medications Ordered Medication Name Filled Medication Name Start Date Stop Date Current Medication? Ordering Clinician Indication Dosage Frequency Signature (SIG) Comments Components Source atorvastati n 40 mg tablet 03-04 00:00: 00 Yes mg Toney Renner amlodipine 5 mg tablet 03-04 00:00: 00 Yes 1mg T[facility] Renner pantoprazol e 40 mg tablet,merna yed release 03-04 00:00: 00 Yes 1mg T[facility] Renner Januvia 100 mg tablet 03-04 00:00: 00 Yes 1mg T[facility] Renner Eliquis 5 mg tablet 03-04 00:00: 00 Yes 1mg [facility] Renner glipizide 10 mg tablet 03-04 00:00: 00 Yes 1mg T[facility] Renner gabapentin 100 mg capsule 03-04 00:00: 00 Yes 1mg T[facility] Renner pantoprazol e 40 mg tablet,merna yed release 01-26 00:00: 00 Yes 1mg T[facility] Renner Tylenol Extra Strength 500 mg tablet 01-26 00:00: 00 Yes 1mg Toney Renner azithromyci n 250 mg tablet 01-26 00:00: 00 Yes 1mg T[facility] Renner AZITHROMYCI N 250MG 01-26 00:00: 00 Yes 250 T[facility] Renner TAKE 1 TABLET BY MOUTH NIGHTLY - 00:00: 00 Yes 40 [facility] Renner TAKE 1 CAPSULE AT BEDTIME. 2 00:00: 00 Yes 100 T[facility] Renner TAKE 1 TABLET DAILY. 2- 00:00: 00 Yes 100 Toney Renner TAKE 1 TABLET TWICE A DAY 30 MINUTES BEFORE MEALS 2- 00:00: 00 Yes 10 T[facility] Renner TAKE 1 TABLET BY MOUTH TWICE A DAY 11-27 00:00: 00 Yes 1000 Toney Renner GLIPIZIDE XL 10MG 11-27 00:00: 00 Yes Toney Renner AMLODIPINE 5MG 11-27 00:00: 00 Yes Toney Renner TAKE 10 ML 4 TIMES DAILY 11-27 00:00: 00 03-04 00:00 :00 No 110 Toney Renner famotidine 20 mg tablet 11-13 00:00: 00 Yes mg Toney Renner RINSE MOUTH WITH 15ML (1 CAPFUL) FOR 30 SECONDS AM AND PM AFTER TOOTHBRUSHI NG. EXPECTORATE AFTER RINSING, DO NOT SWALLOW 11-10 00:00: 00 03-04 00:00 :00 No 12 [facility] Renner SUCRALFATE 1 GM/10ML SUSP 2022-10 00:00: 00 Yes Toney Renner TAKE 1 TABLET BY MOUTH EVERY 4 TO 6 HOURS NEEDED 2022-10 00:00: 00 Yes Toney Renner TAKE 10 ML 4 TIMES DAILY 2022-10 00:00: 00 03-04 00:00 :00 No 110 Toney Renner TAKE 1 TABLET EVERY 4 TO 6 HOURS NEEDED. 2022-10 00:00: 00 03-04 00:00 :00 No 500 Toney Renner CYCLOBENZAP RINE HYDROCHLORI DE 5 MG TABS 2022-10 00:00: 00 Yes Toney Renner SODIUM SULFATE/POT ASSIUM SULFATE/MA GNESIUM SULFATE 17.5-3.13-1 .6 GM/177ML SOLN 2022-10 00:00: 00 Yes Toney Renner apixaban 5 mg tablet 2022-10 11:38: 53 Yes 5mg Take 5 mg by mouth 2 (two) times daily. [facility] atorvastati n 40 mg tablet 2022-10 11:38: 53 Yes 40mg Take 40 mg by mouth at bedtime. [facility] SITagliptin 25 mg tablet 2022-10 11:38: 53 Yes 25mg Take 25 mg by mouth daily. [facility] amLODIPine 5 mg tablet 2022-10 11:38: 53 Yes 5mg Take 5 mg by mouth daily. [facility] glipiZIDE 10 mg tablet 2022-10 11:38: 53 Yes 10mg Take 10 mg by mouth 2 (two) times daily. [facility] metFORMIN 1,000 mg tablet 2022-10 11:38: 53 Yes 1000mg Take 1,000 mg by mouth 2 (two) times daily with meals. [facility] omeprazole 40 mg capsule 2022-10 11:38: 53 Yes 40mg Take 1 capsule by mouth daily. [facility] AMOXICILLIN /CLAVULANAT E POTASSIUM 875-125 MG TABS 2022-10 00:00: 00 Yes Toney Camryn Zurdo TAKE 1 TABLET BY MOUTH EVERY 6 (SIX) HOURS NEEDED FOR PAIN (SCALE 4-6) FOR UP TO 7 DAYS. 2022-10 00:00: 00 Yes T[facility] Renner amoxicillin -clavulanat e (AUGMENTIN) 875-125 mg per tablet 2022-10 00:00: 00 09-16 05:59 :00 No [id number] 1{tbl} Take 1 tablet by mouth 2 (two) times daily for 10 days. [facility] traMADoL 50 mg tablet 2022-10 00:00: 00 09-13 05:59 :00 No [id number] 50mg Take 1 tablet by mouth every 6 (six) hours as needed for Pain (scale 4-6) for up to 7 days. Indication s: acute pain [facility] morpHINE (2 mg/mL) injection 2 mg 2022-10 04:22: 54 Yes 2mg 2 mg, Slow IV Push, Q6HPRN, Starting on Fri09/03/23 at 2222, Until Discontinu ed, Routine, Pain (scale 7-10), Pain (scale 4-6) [facility] KCL (KLOR-CON M20) tablet 40 mEq 2022-10 20:00: 00 09-03 20:15 :00 No 40meq 40 mEq, Oral, ONCE, 1 dose, On Fri09/03/23 at 1400, Routine [facility] magnesium sulfate in water 2 gram/50 mL (4 %) infusion 2 g 2022-10 16:15: 00 09-03 16:47 :00 No 2g 2 g, IV Piggyback, Administer over 60 Minutes, ONCE, 1 dose, On Fri09/03/23 at 1015, Routine [facility] atorvastati n (LIPITOR) tablet 40 mg 2022-10 03:00: 00 Yes 40mg 40 mg, Oral, QHS, First dose on Fri09/02/23 at 2100, Until Discontinu ed, Routine [facility] butalbital- acetaminoph en-caff (ESGIC) 50-325-40 mg tablet 1 tablet 2022-10 00:08: 37 Yes 1{tbl} 1 tablet, Oral, Q6HPRN, Starting on Fri09/02/23 at 1808, Until Discontinu ed, Routine, Headache [facility] acetaminoph en (TYLENOL) tablet 650 mg 2022-10 00:08: 26 Yes 650mg 650 mg, Oral, Q6HPRN, Starting on Fri09/02/23 at 1808, Until Discontinu ed, Routine, Pain (scale 1-3), Temp > 38 C [facility] Sliding Scale Insulin - Lispro (HumaLOG) 2022-10 18:00: 00 Yes Subcutaneo us, TID MEALS+HS, First dose on Fri09/02/23 at 1200, Until Discontinu ed, Routine [facility] sucralfate (CARAFATE) tablet 1 g 2022-10 17:30: 00 Yes 1g 1 g, Oral, AC+HS, First dose on Fri09/02/23 at 1130, Until Discontinu ed, Routine [facility] amLODIPine (NORVASC) tablet 5 mg 2022-10 15:00: 00 Yes 5mg 5 mg, Oral, DAILY, First dose on Fri09/02/23 at 0900, Until Discontinu ed, Routine [facility] glucagon (GLUCAGEN DIAGNOSTIC KIT) injection 1 mg 2022-10 14:48: 44 Yes 1mg 1 mg, Intramuscu lar, PRN, Starting on Fri09/02/23 at 0848, Until Discontinu ed, AUDRA, Blood Glucose < or = 70 mg/dL and patient is NPO, unable to swallow or has mental changes. [facility] dextrose 50 % in water (D50W) injection 25 mL 2022-10 14:48: 44 Yes 25mL 25 mL, Slow IV Push, PRN, Starting on Fri09/02/23 at 0848, Until Discontinu ed, AUDRA, Blood Glucose < or = 70 mg/dL and patient is NPO, unable to swallow or has mental status changes. [facility] docusate (COLACE) capsule 100 mg 2022-10 14:00: 00 Yes 100mg 100 mg, Oral, BID, First dose on Fri09/02/23 at 0800, Until Discontinu ed, Routine [facility] apixaban (ELIQUIS) tablet 5 mg 2022-10 14:00: 00 Yes 5mg 5 mg, Oral, BID, First dose on Fri09/02/23 at 0800, Until Discontinu ed, Routine
Indicatio ns: Non-Valvul ar Atrial Fibrillati on [facility] piperacilli n-tazobacta m (ZOSYN) 3.375 g in NaCl 0.9% (NS) 100 mL MINI-BAG 2022-10 10:00: 00 09-09 09:59 :00 No 3.375g 3.375 g, IV Piggyback, Q8H ABX, 21 doses, First dose on Fri09/02/23 at 0400, Last dose on Fri09/08/23 at 2000, Administer over 4 Hours, 100 mL
Reas on for Anti-Infec tive: Documented Infection< br>Documen meet Infection Site: Abdominal< br>Duratio n of Therapy: 7 days [facility] piperacilli n-tazobacta m (ZOSYN) 3.375 g in NaCl 0.9% (NS) 100 mL MINI-BAG 2022-10 02:15: 00 09-02 03:09 :00 No 3.375g 3.375 g, IV Piggyback, ONCE, 1 dose, On Fri09/01/23 at 2015, Administer over 30 Minutes, 100 mL
Reas on for Anti-Infec tive: Documented Infection< br>Documen meet Infection Site: Abdominal< br>Duratio n of Therapy: 7 days [facility] lactated ringers IV infusion 1,000 mL 2022-10 01:30: 00 Yes 1000mL at 75 mL/hr, 1,000 mL, IV Infusion, CONTINUOUS , Starting on Fri09/01/23 at 1930, Until Discontinu ed, Routine [facility] ondansetron (ZOFRAN (PF)) injection 4 mg 2022-10 01:18: 14 Yes 4mg 4 mg, Slow IV Push, Q6HPRN, Starting on Fri09/01/23 at 1918, Until Discontinu ed, Routine, Nausea and Vomiting (N/V) [facility] morpHINE (2 mg/mL) injection 4 mg 2022-10 01:18: 10 09-03 01:17 :10 No 4mg 4 mg, Slow IV Push, Q4HPRN, Starting on Fri09/01/23 at 1918, Until Fri09/02/23 at 1917, Routine, Pain (scale 7-10) [facility] iopamidol (ISOVUE 370-500 mL) injection 100 mL 2022-10 00:45: 00 09-02 00:45 :00 No [id number] 100mL 100 mL, Intravenou s, ONCE, 1 dose, On Fri09/01/23 at 1845, Routine [facility] acetaminoph en ADULT (OFIRMEV) injection 1,000 mg 2022-10 23:45: 00 09-01 23:15 :00 No 1000mg 1,000 mg, IV Infusion, at 400 mL/hr Administer over 15 Minutes, ONCE, 1 dose, On Fri09/01/23 at 1745, Routine
Indicatio n: Non-periop erative Patient
Approved by: Per Policy (NPO Status) [facility] FENTanyl PF (SUBLIMAZE (PF)) injection 75 mcg 2022-10 23:00: 00 09-01 22:59 :00 No 75ug 75 mcg, Slow IV Push, ONCE, 1 dose, On Fri09/01/23 at 1700, AUDRA [facility] NaCl 0.9% (NS) bolus infusion 500 mL 2022-10 22:51: 00 09-02 01:25 :00 No 500mL at 999 mL/hr, 500 mL, IV Infusion, ONCE, 1 dose, On Fri09/01/23 at 1700, STAT [facility] ondansetron (ZOFRAN (PF)) injection 4 mg 2022-10 22:49: 00 09-01 22:59 :00 No 4mg 4 mg, Slow IV Push, ONCE, 1 dose, On Fri09/01/23 at 1700, AUDRA [facility] NaCl 0.9% (NS) bolus infusion 500 mL 2022-10 22:30: 00 09-01 22:59 :00 No 500mL at 999 mL/hr, 500 mL, IV Infusion, ONCE, 1 dose, On Fri09/01/23 at 1630, AUDRA [facility] atorvastati n 40 mg tablet 2022-10 00:00: 00 Yes mg [facility] Renner glipizide 10 mg tablet 2022-10 00:00: 00 Yes mg Toney Renner amlodipine 5 mg tablet 2022-10 00:00: 00 Yes mg Toney Renner gabapentin 100 mg capsule 2022-10 00:00: 00 Yes mg Toney Renner Januvia 100 mg tablet 2022-10 00:00: 00 Yes mg Toney Renner TAKE 1 TABLET BY MOUTH TWICE A DAY 2022-10 00:00: 00 Yes Toney Renner TAKE 1 TABLET BY MOUTH TWICE A DAY 2022-10 00:00: 00 03-04 00:00 :00 No 1000 Toney Renner TAKE 1 TABLET DAILY. 2022-10 00:00: 00 03-04 00:00 :00 No 40 Toney Renner TAKE 1 TABLET DAILY. 2022-10 00:00: 00 03-04 00:00 :00 No 100 Toney Renner TAKE 1 TABLET BY MOUTH EVERY DAY AT NIGHT 2022-10 00:00: 00 03-04 00:00 :00 No 40 Toney Renner PANTOPRAZOL E SODIUM 40 MG TBEC 07-18 00:00: 00 Yes Toney Renner TAKE 1 TABLET BY MOUTH THREE TIMES A DAY 07-17 00:00: 00 Yes Toney Renner TAKE 1 TABLET TWICE DAILY. 07-16 00:00: 00 03-04 00:00 :00 No 500 Toney Renner TAKE 1 CAPSULE AT BEDTIME. 07-16 00:00: 00 03-04 00:00 :00 No 100 Toney Renner TAKE 1 TABLET AT BEDTIME NEEDED. 07-16 00:00: 00 03-04 00:00 :00 No 750 Toney Renner TAKE 1 OR 2 TABLETS EVERY 8 HOURS NEEDED. 07-16 00:00: 00 03-04 00:00 :00 No 1 T[facility] Renner ESTRADIOL 0.1 MG/GM CREA 06-25 00:00: 00 Yes T[facility] Renner iopamidol (ISOVUE 370-500 mL) injection 100 mL 06-22 06:00: 00 06-22 06:00 :00 No [id number] 100mL 100 mL, Intravenou s, ONCE, 1 dose, On 06/22/23 at 0100, Routine [facility] morpHINE (4 mg/mL) injection 4 mg 06-22 05:15: 00 06-22 04:44 :00 No 4mg 4 mg, Slow IV Push, ONCE, 1 dose, On 06/22/23 at 0015, Routine [facility] ondansetron (ZOFRAN (PF)) injection 4 mg 06-22 04:30: 00 06-22 04:43 :00 No 4mg 4 mg, Slow IV Push, ONCE, 1 dose, On 06/21/23 at 2330, AUDRA [facility] pantoprazol e (PROTONIX) EC tablet 40 mg 06-22 03:30: 00 Yes 40mg 40 mg, Oral, DAILY, First dose on 06/21/23 at 2230, Until Discontinu ed, Routine [facility] naproxen 500 mg tablet 06-22 01:55: 23 06-22 00:00 :00 No 500mg Take 500 mg by mouth 2 (two) times daily with meals. [facility] pantoprazol e 40 mg EC tablet 06-22 00:00: 00 07-23 04:59 :00 No [id number] 40mg Take 1 tablet by mouth 2 (two) times daily for 30 days. [facility] TAKE 1 CAPSULE 3 TIMES DAILY NEEDED. 06-19 00:00: 00 03-04 00:00 :00 No 200 Toney Renner TAKE 1 CAPSULE 3 TIMES DAILY NEEDED. 06-18 00:00: 00 03-04 00:00 :00 No 200 Toney Renner TAKE 2 TABLETS ON DAY 1 THEN TAKE 1 TABLET A DAY FOR 4 DAYS. 06-18 00:00: 00 03-04 00:00 :00 No 250 Toney Renner aspirin chewable tablet 324 mg 06-02 14:00: 00 Yes 324mg 324 mg, Oral, DAILY, First dose on 06/02/23 at 0900, Until Discontinu ed, Routine [facility] HYDROcodone -acetaminop hen (NORCO 5) 5-325 mg tablet 1 tablet 06-02 02:00: 00 06-02 02:19 :00 No 1{tbl} 1 tablet, Oral, ONCE, 1 dose, [facility] 06/01/23 at 2100[facility] (PE[facility]ID (PF[facility] 20 mg 06-01 23:45: 00 06-02 00:24 :00 No 20mg 20 mg, Slow IV Push, ONCE, 1 dose, On 06/01/23 at 1845, [facility] ASPIRIN LOW DOSE 81 MG CHEW 05-12 00:00: 00 Yes Toney Renner TAKE 1 TABLET BY MOUTH THREE TIMES A DAY BEFORE MEALS FOR GASTRITIS 05-12 00:00: 00 Yes Toney Camryn Renner JANUVIA 100 MG TABS 05-02 00:00: 00 Yes Toney Renner TAKE 1 TABLET BY MOUTH TWICE A DAY 05-02 00:00: 00 Yes Toney Renner TAKE 1 TABLET DAILY 05-02 00:00: 00 Yes Toney Renner AMLODIPINE BESYLATE 5 MG TABS 05-02 00:00: 00 Yes Toney Renner TAKE 1 TABLET TWICE A DAY 30 MINUTES BEFORE MEALS 05-02 00:00: 00 03-04 00:00 :00 No 10 Toney Renner TAKE 1 TABLET BY MOUTH NIGHTLY 05-02 00:00: 00 03-04 00:00 :00 No 40 Toney Renner TAKE 1 TABLET DAILY. 05-02 00:00: 00 03-04 00:00 :00 No 10 Toney Renner PANTOPRAZOL E SODIUM 40 MG TBEC 04-01 00:00: 00 Yes Toney Renner TAKE 1 TABLET TWICE A DAY 30 MINUTES BEFORE MEALS 03-24 00:00: 00 03-04 00:00 :00 No 10 Toney Renner TAKE 1 TABLET BY MOUTH THREE TIMES DAILY BEFORE MEAL(S) FOR GASTRITIS 03-23 00:00: 00 Yes Toney Renner ONDANSETRON HYDROCHLORI DE 4 MG TABS 03-23 00:00: 00 Yes Toney Renner maalox:diph enhydrAMINE :lidocaine 2 % viscous 1:1:1 ([facility]) oral suspension 15 mL 03-12 03:45: 00 03-12 03:37 :00 No 15mL 15 mL, Oral, ONCE, 1 dose, On Fri03/11/23 at 2245, [facility] furosemide (LASIX) injection 10 mg 03-12 03:30: 00 03-12 03:37 :00 No 10mg 10 mg, IV Push, ONCE, 1 dose, On Fri03/11/23 at 2230, [facility] famotidine (PEPCID (PF)) injection 20 mg 03-12 02:45: 00 03-12 02:47 :00 No 20mg 20 mg, Slow IV Push, ONCE, 1 dose, On Fri03/11/23 at 2145, [facility] iopamidol (ISOVUE 370-500 mL) injection 75 mL 03-12 02:30: 00 03-12 02:45 :00 No [id number] 75mL 75 mL, Intravenou s, ONCE, 1 dose, On Fri03/11/23 at 2145, Routine [facility] PANTOPRAZOL E SODIUM 20 MG TBEC 03-12 00:00: 00 Yes Toney Renner pantoprazol e (PROTONIX) 20 mg EC tablet 03-11 00:00: 00 06-22 00:00 :00 No [id number] 20mg Take 1 tablet by mouth daily. [facility] TAKE 1 TABLET BY MOUTH TWICE A DAY 24 00:00: 00 Yes Toney Renner TAKE 1 TABLET BY MOUTH NIGHTLY 01-23 00:00: 00 Yes 40 Toney Renner TAKE 1 CAPSULE TWICE DAILY. 01-23 00:00: 00 Yes 40 Toney Renner TAKE 1 TABLET TWICE A DAY 01-23 00:00: 00 Yes 1000 Toney Renner AMLODIPINE BESYLATE 5 MG TABS 01-23 00:00: 00 Yes Toney Renner ELIQUIS 5 MG TABS 01-23 00:00: 00 Yes Toney Renner TAKE 1 TABLET TWICE A DAY 30 MINUTES BEFORE MEALS 01-06 00:00: 00 03-04 00:00 :00 No 10 Toney Renner atorvastati n 40 mg tablet 12-19 13:21: 52 Yes 40mg Take 40 mg by mouth at bedtime. [facility] SITagliptin 25 mg tablet 12-19 13:21: 52 Yes 25mg Take 25 mg by mouth daily. [facility] amLODIPine 5 mg tablet 12-19 13:21: 52 Yes 5mg Take 5 mg by mouth daily. [facility] glipiZIDE 10 mg tablet 12-19 13:21: 52 Yes 10mg Take 10 mg by mouth 2 (two) times daily. [facility] metFORMIN 1,000 mg tablet 12-19 13:21: 52 Yes 1000mg Take 1,000 mg by mouth 2 (two) times daily with meals. [facility] apixaban 5 mg tablet 12-19 13:21: 52 Yes 5mg Take 5 mg by mouth 2 (two) times daily. [facility] iohexol (OMNIPAQUE 300-100 mL) injection 11-21 14:47: 16 11-21 15:03 :49 No ONCE INTRA PROCEDURE, Starting on Dianna 11/21/22 at 0847, Until Dianna 11/21/22 at 0903, Routine, CV Intraproce dure [facility] heparin 1,000 unit/mL injection 11-21 14:11: 56 11-21 15:03 :49 No ONCE INTRA PROCEDURE, Starting on Dianna 11/21/22 at 0811, Until Dianna 11/21/22 at 0903, Routine, CV Intraproce dure [facility] nitroglycer in (TRIDIL) 2 mg in 10 mL D5W for Cardiac Cath 11-21 14:11: 31 11-21 15:03 :49 No ONCE INTRA PROCEDURE, Starting on Dianna 11/21/22 at 0811, Until Dianna 11/21/22 at 0903, Routine, CV Intraproce dure [facility] lidocaine 1% (PF) (XYLOCAINE) injection 11-21 14:07: 13 11-21 15:03 :49 No ONCE INTRA PROCEDURE, Starting on Dianna 11/21/22 at 0807, Until Dianna 11/21/22 at 0903, Routine, CV Intraproce dure [facility] midazolam (VERSED) injection 11-21 14:05: 17 11-21 15:03 :49 No ONCE INTRA PROCEDURE, Starting on Dianna 11/21/22 at 0805, Until Dianna 11/21/22 at 0903, Routine, CV Intraproce dure [facility] FENTanyl PF (SUBLIMAZE (PF)) injection 11-21 14:05: 08 11-21 15:03 :49 No ONCE INTRA PROCEDURE, Starting on Dianna 11/21/22 at 0805, Until Dianna 11/21/22 at 0903, Routine, CV Intraproce dure [facility] aspirin tablet 11-21 13:59: 19 11-21 15:03 :49 No ONCE INTRA PROCEDURE, Starting on Dianna 11/21/22 at 0759, Until Dianna 11/21/22 at 0903, Routine, CV Intraproce dure [facility] apixaban 5 mg tablet 11-21 12:27: 07 Yes 5mg Take 5 mg by mouth 2 (two) times daily. [facility] naproxen 500 mg tablet 11-21 12:27: 07 Yes 500mg Take 500 mg by mouth 2 (two) times daily with meals. [facility] atorvastati n 40 mg tablet 11-21 12:27: 07 Yes 40mg Take 40 mg by mouth at bedtime. [facility] SITagliptin 25 mg tablet 11-21 12:27: 07 Yes 25mg Take 25 mg by mouth daily. [facility] amLODIPine 5 mg tablet 11-21 12:27: 07 Yes 5mg Take 5 mg by mouth daily. [facility] glipiZIDE 10 mg tablet 11-21 12:27: 07 Yes 10mg Take 10 mg by mouth 2 (two) times daily. [facility] metFORMIN 1,000 mg tablet 11-21 12:27: 07 Yes 1000mg Take 1,000 mg by mouth 2 (two) times daily with meals. [facility] acetaminoph en (TYLENOL) tablet 650 mg 10-27 19:15: 00 10-27 19:19 :00 No 650mg 650 mg, Oral, ONCE, 1 dose, On 10/27/22 at 1315, AUDRA [facility] nirmatrelvi r-ritonavir 300 mg (150 mg x 2)-100 mg tablet 10-27 00:00: 00 06-01 00:00 :00 No [id number] 3{tbl} Take 3 tablets by mouth 2 (two) times daily. [facility] Dextrometho rphan-Guaif enesin (MUCINEX DM) 60-1,200 mg Tb12 10-27 00:00: 00 11-04 05:59 :00 No [id number] 1{tbl} Take 1 tablet by mouth every 12 (twelve) hours for 7 days. [facility] TAKE 1 TABLET BY MOUTH NIGHTLY 2021-10 00:00: 00 No 40 TAKE 1 TABLET BY MOUTH EVERY DAY 2021-10 00:00: 00 No 5 TAKE 1 TABLET BY MOUTH EVERY DAY 2021-10 00:00: 00 Yes Toney Renner TAKE 1 TABLET BY MOUTH NIGHTLY 2021-10 00:00: 00 03-04 00:00 :00 No 40 Toney Renner APPLY SPARINGLY TO AFFECTED AREA(S) TWICE DAILY 2022-1 2-15 00:00: 00 No TAKE 1 TABLET BY MOUTH EVERY DAY 2021-10 2-15 00:00: 00 No TAKE 1 TABLET TWICE DAILY WITH FOOD. 2021-10 2-15 00:00: 00 No TAKE 7.5 ML PO EVERY 6 TO 8 HOURS NEEDED FOR COUGH 2021-10 2-15 00:00: 00 No INSTILL 3 DROPS IN AFFECTED EAR(S) TWICE DAILY. 2021-10 2-15 00:00: 00 No TAKE 1 TABLET BY MOUTH TWICE A DAY 2021-10 2-15 00:00: 00 No ELIQUIS 5 MG TABS 2021-10 2-15 00:00: 00 No Dose Unknown 2021-10 2-15 00:00: 00 No KETOCONAZOL E 2 % SHAM 2021-10 2-15 00:00: 00 No NAPROXEN 500 MG TABS 2021-10 2-15 00:00: 00 No ACETAMINOPH EN/CODEINE 300-15 MG TABS 2021-10 2-15 00:00: 00 No Dose Unknown 2021-10 2-15 00:00: 00 No Dose Unknown 2021-10 2-15 00:00: 00 No Dose Unknown 2021-10 2-15 00:00: 00 No Dose Unknown 2021-10 2-15 00:00: 00 No Dose Unknown 2021-10 2-15 00:00: 00 No TAKE 1 TABLET BY MOUTH EVERY 12 HOURS FOR 7 DAYS 2021-10 2-15 00:00: 00 No TAKE 1 TABLET BY MOUTH EVERY 6 HOURS NEEDED FOR PAIN FOR UP TO 7 DAYS 2021-10 2-15 00:00: 00 No Dose Unknown 2021-10 2-15 00:00: 00 No TAKE 1 TABLET BY MOUTH TWICE A DAY WITH FOOD 2021-10 2-15 00:00: 00 No NITROFURANT OIN MONOHYDRATE /MACROCRY STALS 100 MG CAPS 2021-10 2-15 00:00: 00 No TAKE 1 TABLET BY MOUTH TWICE DAILY NEEDED FOR PAIN 2021-10 2-15 00:00: 00 No Dose Unknown 2021-10 2-15 00:00: 00 No Dose Unknown 2021-10 2-15 00:00: 00 No ATORVASTATI N CALCIUM 40 MG TABS 2021-10 2-15 00:00: 00 No 40 Dose Unknown 2021-10 2-15 00:00: 00 No APPLY THIN FILM TO AFFECTED AREA 2 TIMES DAILY FOR 7 DAYS 2021-10 2-15 00:00: 00 No Dose Unknown 2021-10 2-15 00:00: 00 No Dose Unknown 2021-10 2-15 00:00: 00 No APPLY TO SCALP EVERY OTHER DAY FOR 5 MINUTES AND RINSE. 2021-10 2-15 00:00: 00 No USE DIRECTED ON PACKAGE 2021-10 2-15 00:00: 00 No INSTILL 3 DROPS IN AFFECTED EAR(S) TWICE DAILY. 2021-10 2-15 00:00: 00 No TAKE 1 TABLET TWICE A DAY 30 MINUTES BEFORE MEALS 2021-10 2-15 00:00: 00 No ELIQUIS 5 MG TABS 2021-10 2-15 00:00: 00 No Dose Unknown 2021-10 2-15 00:00: 00 No Dose Unknown 2021-10 2-15 00:00: 00 No Dose Unknown 2021-10 2-15 00:00: 00 No TAKE 1 TABLET BY MOUTH TWICE A DAY 2021-10 2-15 00:00: 00 No Dose Unknown 2021-10 2-15 00:00: 00 No Dose Unknown 2021-10 2-15 00:00: 00 No Dose Unknown 2021-10 2-15 00:00: 00 No Dose Unknown 2021-10 2-15 00:00: 00 No Dose Unknown 2021-10 2-15 00:00: 00 No Dose Unknown 2021-10 2-15 00:00: 00 No Dose Unknown 2021-10 2-15 00:00: 00 No Dose Unknown 2021-10 2-15 00:00: 00 No Dose Unknown 2021-10 2-15 00:00: 00 No Dose Unknown 2021-10 2-15 00:00: 00 No TAKE 1 TABLET BY MOUTH TWICE A DAY WITH FOOD 2021-10 2-15 00:00: 00 No Dose Unknown 2021-10 2-15 00:00: 00 No TAKE 1 TABLET BY MOUTH TWICE DAILY NEEDED FOR PAIN 2021-10 2-15 00:00: 00 No ATORVASTATI N CALCIUM 40 MG TABS 2021-10 2-15 00:00: 00 No 40 Dose Unknown 2021-10 2-15 00:00: 00 No APPLY THIN FILM TO AFFECTED AREA 2 TIMES DAILY FOR 7 DAYS 2021-10 2-15 00:00: 00 No Dose Unknown 2021-10 2-15 00:00: 00 No Dose Unknown 2021-10 2-15 00:00: 00 No Dose Unknown 2021-10 2-15 00:00: 00 No Dose Unknown 2021-10 2-15 00:00: 00 Yes Toney F Zurdo Dose Unknown 2021-10 2-15 00:00: 00 Yes Toney F Zurdo Dose Unknown 2021-10 2-15 00:00: 00 Yes Toney F Zurdo Dose Unknown 2021-10 2-15 00:00: 00 Yes Toney F Zurdo Dose Unknown 2021-10 2-15 00:00: 00 Yes Toney F Zurdo Dose Unknown 2021-10 2-15 00:00: 00 Yes Toney F Zurdo Dose Unknown 2021-10 2-15 00:00: 00 Yes Toney F Zurdo Dose Unknown 2021-10 2-15 00:00: 00 Yes Toney F Zurdo TAKE 1 TABLET BY MOUTH TWICE A DAY WITH FOOD 2021-10 2-15 00:00: 00 Yes Toney F Zurdo Dose Unknown 2021-10 2-15 00:00: 00 Yes Toney F Zurdo TAKE 1 TABLET BY MOUTH TWICE DAILY NEEDED FOR PAIN 2021-10 2-15 00:00: 00 Yes Toney F Zurdo ATORVASTATI N CALCIUM 40 MG TABS 2021-10 2-15 00:00: 00 Yes 40 Toney F Zurdo Dose Unknown 2021-10 2-15 00:00: 00 Yes Toney F Zurdo APPLY THIN FILM TO AFFECTED AREA 2 TIMES DAILY FOR 7 DAYS 2021-10 2-15 00:00: 00 Yes Toney F Zurdo Dose Unknown 2021-10 2-15 00:00: 00 Yes Toney F Zurdo Dose Unknown 2021-10 2-15 00:00: 00 Yes Toney F Zurdo Dose Unknown 2021-10 2-15 00:00: 00 Yes Toney F Zurdo APPLY TO SCALP EVERY OTHER DAY FOR 5 MINUTES AND RINSE. 2021-10 2-15 00:00: 00 03-04 00:00 :00 No Toney F Zurdo USE DIRECTED ON PACKAGE 2021-10 2-15 00:00: 00 03-04 00:00 :00 No Toney F Zurdo INSTILL 3 DROPS IN AFFECTED EAR(S) TWICE DAILY. 2021-10 2 00:00: 00 03-04 00:00 :00 No Toney F Zurdo TAKE 1 TABLET TWICE A DAY 30 MINUTES BEFORE MEALS 2021-10 215 00:00: 00 03-04 00:00 :00 No Toney F Zurdo ELIQUIS 5 MG TABS 2021-10 2 00:00: 00 03-04 00:00 :00 No Toney F Zurdo Dose Unknown 2021-10 00:00: 00 03-04 00:00 :00 No Toney F Zurdo TAKE 1 TABLET BY MOUTH TWICE A DAY 2021-10 00:00: 00 03-04 00:00 :00 No Toney F Zurdo Dose Unknown 2021-10 00:00: 00 03-04 00:00 :00 No Toney F Zurdo Dose Unknown 2021-10 00:00: 00 03-04 00:00 :00 No Toney F Zurdo Dose Unknown 2021-10 00:00: 00 03-04 00:00 :00 No Toney F Zurdo Dose Unknown 2021-10 00:00: 00 03-04 00:00 :00 No Toney F Zurdo Dose Unknown 2021-10 00:00: 00 03-04 00:00 :00 No Toney F Zurdo AMLODIPINE BESYLATE 5 MG TABS 2021-10 00:00: 00 No AMLODIPINE BESYLATE 5 MG TABS 2021-10 00:00: 00 No AMLODIPINE BESYLATE 5 MG TABS 2021-10 00:00: 00 Yes Toney F Zurdo APPLY SPARINGLY TO AFFECTED AREA(S) TWICE DAILY 2021-10 00:00: 00 No 2 APPLY SPARINGLY TO AFFECTED AREA(S) TWICE DAILY 2021-10 00:00: 00 03-04 00:00 :00 No 2 Toney F Zurdo APPLY TO SCALP EVERY OTHER DAY FOR 5 MINUTES AND RINSE. 2021-10 00:00: 00 No Dose Unknown 2021-10 00:00: 00 No APPLY TO SCALP EVERY OTHER DAY FOR 5 MINUTES AND RINSE. 2021-10 00:00: 00 No TAKE 2 TABLETS BY MOUTH EVERY 6 HOURS NEEDED 2021-10 00:00: 00 No APPLY TO SCALP EVERY OTHER DAY FOR 5 MINUTES AND RINSE. 2021-10 00:00: 00 No TAKE 2 TABLETS BY MOUTH EVERY 6 HOURS NEEDED 2021-10 00:00: 00 No APPLY TO SCALP EVERY OTHER DAY FOR 5 MINUTES AND RINSE. 2021-10 00:00: 00 Yes Toney Renner TAKE 2 TABLETS BY MOUTH EVERY 6 HOURS NEEDED 2021-10 00:00: 00 Yes Toney Renner TAKE 7.5 ML BY MOUTH EVERY 6 TO 8 HOURS NEEDED FOR COUGH 2021-10 00:00: 00 No TAKE 7.5 ML BY MOUTH EVERY 6 TO 8 HOURS NEEDED FOR COUGH 2021-10 00:00: 00 Yes Toney Renner JANUVIA 100 MG TABS 2021-10 00:00: 00 Yes Toney Renner TAKE 1 TABLET BY MOUTH TWICE A DAY 2021-10 00:00: 00 No OMEPRAZOLE 40 MG [facility] [place] 2021-10 00:00: 00 No TAKE 1 TABLET BY MOUTH TWICE A DAY 2021-10 00:00: 00 No OMEPRAZOLE 40 MG [facility] [place] 2021-10 00:00: 00 No TAKE 1 TABLET BY MOUTH TWICE A DAY 2021-10 00:00: 00 No OMEPRAZOLE 40 MG [facility] [place] 2021-10 00:00: 00 No TAKE 1 TABLET BY MOUTH TWICE A DAY 2021-10 00:00: 00 03-04 00:00 :00 No Toney Renner OMEPRAZOLE 40 MG [facility] [place] 2021-10 00:00: 00 03-04 00:00 :00 No Toney Renner TAKE 2 CAPSULES BY MOUTH EVERY 8 HOURS FOR 5 DAYS 2021-10 00:00: 00 No IBUPROFEN 400 MG TABS 2021-10 00:00: 00 No 400 TAKE 2 CAPSULES BY MOUTH EVERY 8 HOURS FOR 5 DAYS 2021-10 00:00: 00 Yes Toney Renner IBUPROFEN 400 MG TABS 2021-10-02 00:00: 00 Yes 400 Toney Renner Dose Unknown 2021-10 0-24 00:00: 00 No JANUVIA 25 MG TABS 2021-10 0-24 00:00: 00 No JANUVIA 25 MG TABS 2021-10 0-24 00:00: 00 No JANUVIA 25 MG TABS 2021-10 0-24 00:00: 00 Yes Toney Renner TAKE 1 CAPSULE BY MOUTH EVERY DAY 2021-10 018 00:00: 00 No TAKE 1 CAPSULE BY MOUTH EVERY DAY 2021-10 018 00:00: 00 No TAKE 1 CAPSULE BY MOUTH EVERY DAY 2021-10 018 00:00: 00 No Dose Unknown 2021-1018 00:00: 00 No KETOCONAZOL E 2 % CREA 2021-10 018 00:00: 00 Yes Toney Renner JANUVIA 100 MG TABS 2021-10 0 00:00: 00 Yes Toney Renner KETOCONAZOL E 2 % SHAM 2021-10 00:00: 00 Yes Toney Renner Dose Unknown 2021-1018 00:00: 00 03-04 00:00 :00 No Toney Renner regadenoson (LEXISCAN) injection 0.4 mg 2021-10 18:15: 00 08-08 17:58 :00 No [id number] .4mg 0.4 mg, IV Push, ONCE, 1 dose, On Dianna 08/08/22 at 1315, Routine
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 [facility] OMEPRAZOLE 40 MG CPDR 2021-10 00:00: 00 Yes Toney Renner omeprazole 40 mg capsule 2021-10 00:00: 00 06-22 00:00 :00 No [id number] 40mg Take 1 capsule by mouth daily. [facility] maalox:diph enhydrAMINE :lidocaine 2 % viscous 1:1:1 ([facility]) oral suspension 15 mL 2021-10 15:45: 00 08-02 16:29 :00 No 15mL 15 mL, Oral, ONCE, 1 dose, On Fri08/02/22 at 1045, Routine [facility] SITagliptin 25 mg tablet 2021-10 14:21: 05 Yes 25mg Take 25 mg by mouth daily. [facility] amLODIPine 5 mg tablet 2021-10 14:21: 05 Yes 5mg Take 5 mg by mouth daily. [facility] glipiZIDE 10 mg tablet 2021-10 14:21: 05 Yes 10mg Take 10 mg by mouth 2 (two) times daily. [facility] omeprazole 40 mg capsule 2021-10 14:21: 05 Yes 40mg Take 40 mg by mouth daily. [facility] metFORMIN 1,000 mg tablet 2021-10 14:21: 05 Yes 1000mg Take 1,000 mg by mouth 2 (two) times daily with meals. [facility] apixaban 5 mg tablet 2021-10 14:21: 05 Yes 5mg Take 5 mg by mouth 2 (two) times daily. [facility] naproxen 500 mg tablet 2021-10 14:21: 05 Yes 500mg Take 500 mg by mouth 2 (two) times daily with meals. [facility] atorvastati n 40 mg tablet 2021-10 14:21: 05 Yes 40mg Take 40 mg by mouth at bedtime. [facility] CYCLOBENZAP RINE HYDROCHLORI DE 10 MG TABS 2021-10 00:00: 00 Yes Toney Renner HYDROCODONE BITARTRATE/ ACETAMINOPH E N 5-325 MG TABS 2021-10 00:00: 00 Yes Toney Renner cyclobenzap rine 10 mg tablet 2021-10 00:00: 00 06-01 00:00 :00 No [id number] 10mg Take 1 tablet by mouth 3 (three) times daily as needed for Muscle Spasms. [facility] HYDROcodone -acetaminop hen 5-325 mg tablet 2021-10 00:00: 00 08-10 04:59 :00 No [id number] 1{tbl} Take 1 tablet by mouth every 6 (six) hours as needed for Pain (scale 7-10) for up to 7 days. Indication s: acute pain [facility] hydralAZINE (APRESOLINE ) injection 10 mg 2021-10 22:14: 34 Yes 10mg 10 mg, Slow IV Push, Q6HPRN, Starting on Fri07/31/22 at 1714, Until Discontinu ed, Routine, DBP=>100; SBP=>180 [facility] SITagliptin (JANUVIA) tablet 25 mg 2021-10 14:00: 00 Yes 25mg 25 mg, Oral, DAILY, First dose on Fri07/31/22 at 0900, Until Discontinu ed, Routine [facility] omeprazole (PRILOSEC) capsule 40 mg 2021-10 14:00: 00 Yes 40mg 40 mg, Oral, DAILY, First dose on Fri07/31/22 at 0900, Until Discontinu ed [facility] amLODIPine (NORVASC) tablet 5 mg 2021-10 14:00: 00 Yes 5mg 5 mg, Oral, DAILY, First dose on Fri07/31/22 at 0900, Until Discontinu ed, Routine [facility] iopamidol (ISOVUE 370-500 mL) injection 75 mL 2021-10 005 13:00: 00 07-31 13:00 :00 No [id number] 75mL 75 mL, Intravenou s, ONCE, 1 dose, On Fri07/31/22 at 0800, Routine [facility] Sliding Scale Insulin-Reg ular + Fsbg Testing 2021-10 0-05 12:30: 00 Yes Subcutaneo us, AC, First dose on Fri07/31/22 at 0730, Until Discontinu ed, Routine [facility] maalox:diph enhydrAMINE :lidocaine 2 % viscous 1:1:1 ([facility]) oral suspension 15 mL 2021-10 0 08:00: 00 07-31 07:37 :00 No 15mL 15 mL, Oral, ONCE, 1 dose, On Fri07/31/22 at 0300, Routine [facility] diphenhydrA MINE (BENADRYL) tablet 25 mg 2021-10 005 07:00: 08 Yes 25mg 25 mg, Oral, Q6HPRN, Starting on Fri07/31/22 at 0200, Until Discontinu ed, Routine, Itching [facility] cyclobenzap rine (FLEXERIL) tablet 10 mg 2021-10 005 06:51: 33 Yes 10mg 10 mg, Oral, TIDPRN, Starting on Fri07/31/22 at 0151, Until Discontinu ed, Routine, Muscle Spasms [facility] glucagon (GLUCAGEN DIAGNOSTIC KIT) injection 1 mg 2021-10 005 02:13: 20 Yes 1mg 1 mg, Intramuscu lar, PRN, Starting on Fri07/30/22 at 2113, Until Discontinu ed, AUDRA, Blood Glucose < or = 70 mg/dL and patient is unable to swallow or has mental changes. [facility] dextrose 50 % in water (D50W) injection 25 mL 2021-10 0-05 02:13: 20 Yes 25mL 25 mL, Slow IV Push, PRN, Starting on Fri07/30/22 at 2113, Until Discontinu ed, AUDRA, Blood Glucose < or = 70 mg/dL and patient is unable to swallow or has mental status changes. [facility] atorvastati n (LIPITOR) tablet 40 mg 2021-10 0-05 02:00: 00 Yes 40mg 40 mg, Oral, QHS, First dose on Fri07/30/22 at 2100, Until Discontinu ed, Routine [facility] HYDROcodone -acetaminop hen (NORCO) 10-325 mg tablet 1 tablet 2021-10 0-05 01:01: 01 Yes 1{tbl} 1 tablet, Oral, Q6HPRN, Starting on Fri07/30/22 at 2000, Until Discontinu ed, Routine, Pain (scale 7-10) [facility] glipiZIDE (GLUCOTROL) tablet 10 mg 2021-10 0-05 01:00: 00 Yes 10mg 10 mg, Oral, BID, First dose on Fri07/30/22 at 1999, Until Discontinu ed, Routine [facility] apixaban (ELIQUIS) tablet 5 mg 2021-10 0-05 01:00: 00 Yes 5mg 5 mg, Oral, BID, First dose on Fri07/30/22 at 2000, Until Discontinu ed, Routine
Indicatio ns: DVT/PE [facility] traMADoL (ULTRAM) tablet 50 mg 2021-10 0-04 21:59: 23 08-01 21:58 :23 No 50mg 50 mg, Oral, Q8HPRN, Starting on Fri07/30/22 at 1659, Until Dianna 08/01/22 at 1658, Routine, Pain (scale 4-6) [facility] acetaminoph en (TYLENOL) tablet 650 mg 2021-10 0-04 21:59: 14 Yes 650mg 650 mg, Oral, Q6HPRN, Starting on Fri07/30/22 at 1659, Until Discontinu ed, Routine, Pain (scale 1-3) [facility] acetaminoph en (TYLENOL) tablet 1,000 mg 2021-10 0-04 18:00: 00 07-30 17:56 :00 No 1000mg 1,000 mg, Oral, ONCE, 1 dose, On Fri07/30/22 at 1300, AUDRA [facility] apixaban 5 mg tablet 2021-10 17:02: 03 Yes 5mg Take 5 mg by mouth 2 (two) times daily. [facility] naproxen 500 mg tablet 2021-10 17:02: 03 Yes 500mg Take 500 mg by mouth 2 (two) times daily with meals. [facility] atorvastati n 40 mg tablet 2021-10 17:02: 03 Yes 40mg Take 40 mg by mouth at bedtime. [facility] SITagliptin 25 mg tablet 2021-10 17:02: 03 Yes 25mg Take 25 mg by mouth daily. [facility] amLODIPine 5 mg tablet 2021-10 17:02: 03 Yes 5mg Take 5 mg by mouth daily. [facility] glipiZIDE 10 mg tablet 2021-10 17:02: 03 Yes 10mg Take 10 mg by mouth 2 (two) times daily. [facility] omeprazole 40 mg capsule 2021-10 17:02: 03 Yes 40mg Take 40 mg by mouth daily. [facility] metFORMIN 1,000 mg tablet 2021-10 17:02: 03 Yes 1000mg Take 1,000 mg by mouth 2 (two) times daily with meals. [facility] Dose Unknown 2021-10 00:00: 00 No 300 TAKE 1 CAPSULE TWICE DAILY. 2021-10 00:00: 00 No Dose Unknown 2021-10 00:00: 00 No TAKE 1 CAPSULE TWICE DAILY. 2021-10 00:00: 00 No TAKE 1 CAPSULE TWICE DAILY. 2021-10 00:00: 00 No Dose Unknown 2021-10 00:00: 00 No TAKE 1 CAPSULE TWICE DAILY. 2021-10 00:00: 00 No Dose Unknown 2021-10 00:00: 00 No Dose Unknown 2021-10 00:00: 00 Yes Toney Renner TAKE 1 CAPSULE TWICE DAILY. 2021-10 0-03 00:00: 00 03-04 00:00 :00 No Toney Renner CETIRIZINE HYDROCHLORI DE 10 MG TABS 07-22 00:00: 00 Yes Toney Renner INSTILL 3 DROPS INTO AFFECTED EAR TWICE A DAY 07-18 00:00: 00 Yes Toney Camryn Renner APPLY TO SCALP EVERY OTHER DAY FOR 5 MINUTES AND RINSE. 07-18 00:00: 00 Yes Toney Renner TAKE 1 TABLET BY MOUTH NIGHTLY 07-17 00:00: 00 No TAKE 1 TABLET TWICE DAILY. 07-17 00:00: 00 No TAKE 1 TABLET BY MOUTH EVERY DAY AT NIGHT 07-17 00:00: 00 No TAKE 1 TABLET TWICE DAILY. 07-17 00:00: 00 No TAKE 1 TABLET BY MOUTH EVERY DAY AT NIGHT 07-17 00:00: 00 No TAKE 1 TABLET TWICE DAILY. 07-17 00:00: 00 No TAKE 1 TABLET TWICE DAILY. 07-17 00:00: 00 No TAKE 1 TABLET BY MOUTH NIGHTLY 07-17 00:00: 00 No TAKE 1 TABLET TWICE DAILY. 07-17 00:00: 00 No TAKE 1 TABLET BY MOUTH NIGHTLY 0 07-17 00:00: 00 No TAKE 1 TABLET BY MOUTH NIGHTLY 07-17 00:00: 00 Yes Toney Renner TAKE 1 TABLET TWICE DAILY. 07-17 00:00: 00 03-04 00:00 :00 No Toney Renner TAKE 1 TABLET BY MOUTH NIGHTLY 0 -16 00:00: 00 No 40 TAKE 1 TABLET TWICE DAILY. 8-16 00:00: 00 No 1000 TAKE 1 TABLET BY MOUTH NIGHTLY 0 8-16 00:00: 00 No 40 TAKE 1 TABLET TWICE DAILY. 8-16 00:00: 00 No 1000 TAKE 1 TABLET BY MOUTH NIGHTLY 0 8-16 00:00: 00 No 40 TAKE 1 TABLET TWICE DAILY. -16 00:00: 00 No 1000 TAKE 1 TABLET BY MOUTH NIGHTLY 0 8-16 00:00: 00 No 40 TAKE 1 TABLET TWICE DAILY. 0 8-16 00:00: 00 No 1000 TAKE 1 TABLET BY MOUTH NIGHTLY 0 8-16 00:00: 00 No 40 TAKE 1 TABLET TWICE DAILY. 0 8-16 00:00: 00 No 1000 TAKE 1 TABLET BY MOUTH NIGHTLY 0 8-16 00:00: 00 Yes 40 Toney Renner TAKE 1 TABLET TWICE DAILY. 0 8-16 00:00: 00 Yes 1000 Toney Renner TAKE 1 TABLET BY MOUTH NIGHTLY 0 8-15 00:00: 00 No 40 TAKE 1 TABLET BY MOUTH NIGHTLY 0 815 00:00: 00 No 40 TAKE 1 TABLET BY MOUTH NIGHTLY 0 8-15 00:00: 00 No 40 TAKE 1 TABLET BY MOUTH NIGHTLY 0 8-15 00:00: 00 No 40 TAKE 1 TABLET BY MOUTH NIGHTLY 0 8-15 00:00: 00 No 40 TAKE 1 TABLET BY MOUTH NIGHTLY 0 815 00:00: 00 Yes 40 Toney Renner TAKE 1 TABLET TWICE DAILY. 814 00:00: 00 No 1000 TAKE 1 TABLET TWICE DAILY. 06-09 00:00: 00 No 1000 TAKE 1 TABLET TWICE DAILY. 8 00:00: 00 No 1000 TAKE 1 TABLET TWICE DAILY. 06-09 00:00: 00 No 1000 TAKE 1 TABLET TWICE DAILY. 06-09 00:00: 00 No 1000 TAKE 1 TABLET TWICE DAILY. 14 00:00: 00 No 1000 TAKE 1 TABLET TWICE DAILY. 14 00:00: 00 Yes 1000 Toney Renner Dose Unknown 06-06 00:00: 00 No Dose Unknown 06-06 00:00: 00 No 10 &lt 06-06 00:00: 00 No 100 Dose Unknown 06-06 00:00: 00 No 5 Dose Unknown 8 00:00: 00 No Dose Unknown 06-06 00:00: 00 No 25 Dose Unknown 2022-0 8-11 00:00: 00 No Dose Unknown 2022-0 8-11 00:00: 00 No 10 &lt 2022-0 8-11 00:00: 00 No 100 Dose Unknown 2022-0 8-11 00:00: 00 No 5 Dose Unknown 2022-0 8-11 00:00: 00 No Dose Unknown 2022-0 8-11 00:00: 00 No 25 Dose Unknown 2022-0 8-11 00:00: 00 No Dose Unknown 2022-0 8-11 00:00: 00 No 10 &lt 2022-0 8-11 00:00: 00 No 100 Dose Unknown 2022-0 8-11 00:00: 00 No 5 Dose Unknown 2022-0 8-11 00:00: 00 No Dose Unknown 2022-0 8-11 00:00: 00 No 25 Dose Unknown 2022-0 8-11 00:00: 00 No Dose Unknown 2022-0 8-11 00:00: 00 No 10 &lt 2022-0 8-11 00:00: 00 No 100 Dose Unknown 2022-0 8-11 00:00: 00 No 5 Dose Unknown 2022-0 8-11 00:00: 00 No Dose Unknown 2022-0 8-11 00:00: 00 No 25 Dose Unknown 2022-0 8-11 00:00: 00 No Dose Unknown 2022-0 8-11 00:00: 00 No 10 &lt 2022-0 8-11 00:00: 00 No 100 Dose Unknown 2022-0 8-11 00:00: 00 No 5 Dose Unknown 2022-0 8-11 00:00: 00 No Dose Unknown 2022-0 8-11 00:00: 00 No 25 Dose Unknown 2022-0 8-11 00:00: 00 No Dose Unknown 2022-0 8-11 00:00: 00 No 10 &lt 2022-0 8-11 00:00: 00 No 100 Dose Unknown 2022-0 8-11 00:00: 00 No 5 Dose Unknown 2022-0 8-11 00:00: 00 No Dose Unknown 2022-0 8-11 00:00: 00 No 25 Dose Unknown 2022-0 8-11 00:00: 00 Yes Toney Renner Dose Unknown 2022-0 8-11 00:00: 00 Yes 10 Toney Camryn Renner &lt 2022-0 8-11 00:00: 00 Yes 100 Toney Renner Dose Unknown 2022-0 8-11 00:00: 00 Yes 5 Toney Renner Dose Unknown 2022-0 8-11 00:00: 00 Yes Toney Renner Dose Unknown 2022-0 8-11 00:00: 00 Yes 25 Toney Renner MUPIROCIN 2 % OINT 2022-0 8-11 00:00: 00 Yes Toney Renner Dose Unknown 2022-0 8-10 00:00: 00 No Dose Unknown 2022-0 8-10 00:00: 00 No 25 &lt 2022-0 8-10 00:00: 00 No 40 Dose Unknown 2022-0 8-10 00:00: 00 No Dose Unknown 2022-0 8-10 00:00: 00 No 25 &lt 2022-0 8-10 00:00: 00 No 40 Dose Unknown 2022-0 8-10 00:00: 00 No Dose Unknown 2022-0 8-10 00:00: 00 No 25 &lt 2022-0 8-10 00:00: 00 No 40 Dose Unknown 2022-0 8-10 00:00: 00 No Dose Unknown 2022-0 8-10 00:00: 00 No 25 &lt 2022-0 8-10 00:00: 00 No 40 Dose Unknown 2022-0 8-10 00:00: 00 No Dose Unknown 2022-0 8-10 00:00: 00 No 25 &lt 2022-0 8-10 00:00: 00 No 40 Dose Unknown 2022-0 8-10 00:00: 00 No Dose Unknown 2022-0 8-10 00:00: 00 No 25 &lt 2022-0 8-10 00:00: 00 No 40 Dose Unknown 2022-0 8-10 00:00: 00 Yes Toney Renner Dose Unknown 2022-0 8-10 00:00: 00 Yes 25 Toney Renner &lt 2022-0 8-10 00:00: 00 Yes 40 Toney Renner TAKE 1 TABLET BY MOUTH TWICE A DAY 2022-0 8-09 00:00: 00 No &lt 2022-0 8-09 00:00: 00 No 4 &lt 2022-0 8-09 00:00: 00 No 300 Dose Unknown 2021-0 8 00:00: 00 No 4 TAKE 1 TABLET BY MOUTH TWICE A DAY 2-0 8 00:00: 00 No &lt 2022-0 8 00:00: 00 No 4 &lt 2022-0 06-04 00:00: 00 No 300 Dose Unknown 2021-0 06-04 00:00: 00 No 4 TAKE 1 TABLET BY MOUTH TWICE A DAY 2-0 06-04 00:00: 00 No &lt 2022-0 06-04 00:00: 00 No 4 &lt 2022-0 06-04 00:00: 00 No 300 Dose Unknown 2021-0 06-04 00:00: 00 No 4 TAKE 1 TABLET BY MOUTH TWICE A DAY 2-0 06-04 00:00: 00 No &lt 2022-0 06-04 00:00: 00 No 4 &lt 2022-0 06-04 00:00: 00 No 300 Dose Unknown 2021-0 06-04 00:00: 00 No 4 TAKE 1 TABLET BY MOUTH TWICE A DAY 2021-0 06-04 00:00: 00 No &lt 2022-0 06-04 00:00: 00 No 4 &lt 2022-0 06-04 00:00: 00 No 300 Dose Unknown 2021-0 06-04 00:00: 00 No 4 TAKE 1 TABLET BY MOUTH TWICE A DAY 2021-0 06-04 00:00: 00 No &lt 2022-0 06-04 00:00: 00 No 4 &lt 2022-0 06-04 00:00: 00 No 300 Dose Unknown 2021-0 06-04 00:00: 00 No 4 TAKE 1 TABLET BY MOUTH TWICE A DAY 2-0 06-04 00:00: 00 Yes Toney F Zurdo &lt 2022-0 06-04 00:00: 00 Yes 4 Toney F Zurdo &lt 2022-0 06-04 00:00: 00 Yes 300 Toney F Zurdo Dose Unknown 2021-0 06-04 00:00: 00 Yes 4 Toney Camryn Renner TAKE 1 TABLET BY MOUTH TWICE A DAY 2021-0 8 00:00: 00 No &lt 2022-0 05-27 00:00: 00 No 25 TAKE 1 TABLET ONCE DAILY BEFORE MEALS 2021-0 00:00: 00 No 40 TAKE 1 TABLET SUBLINGUALL Y DIRECTED NEEDED FOR PAIN SCALE 2-4 2022-0 8- 00:00: 00 No 4 &lt 2022-0 8- 00:00: 00 No 10 TAKE 1 CAPSULE BY MOUTH THREE TIMES DAILY 2022-0 8- 00:00: 00 No 300 &lt 2022-0 8- 00:00: 00 No 4 &lt 2022-0 8- 00:00: 00 No 5 &lt 2022-0 8- 00:00: 00 No 40 &lt 2022-0 8- 00:00: 00 No 5 &lt 2022-0 8- 00:00: 00 No &lt 2022-0 8- 00:00: 00 No 500 &lt 2022-0 8- 00:00: 00 No TAKE 1 TABLET BY MOUTH TWICE A DAY 2-0 8- 00:00: 00 No &lt 2022-0 8- 00:00: 00 No 25 TAKE 1 TABLET ONCE DAILY BEFORE MEALS 2022-0 8- 00:00: 00 No 40 TAKE 1 TABLET SUBLINGUALL Y DIRECTED NEEDED FOR PAIN SCALE 2-4 2021-0 8- 00:00: 00 No 4 &lt 2022-0 8- 00:00: 00 No 10 TAKE 1 CAPSULE BY MOUTH THREE TIMES DAILY 2-0 8- 00:00: 00 No 300 &lt 2022-0 8- 00:00: 00 No 4 &lt 2022-0 8- 00:00: 00 No 5 &lt 2022-0 8- 00:00: 00 No 40 &lt 2022-0 8- 00:00: 00 No 5 &lt 2022-0 8- 00:00: 00 No &lt 2022-0 8- 00:00: 00 No 500 &lt 2022-0 8- 00:00: 00 No TAKE 1 TABLET BY MOUTH TWICE A DAY 2-0 8- 00:00: 00 No &lt 2022-0 8- 00:00: 00 No 25 TAKE 1 TABLET ONCE DAILY BEFORE MEALS 2022-0 8- 00:00: 00 No 40 TAKE 1 TABLET SUBLINGUALL Y DIRECTED NEEDED FOR PAIN SCALE 2-4 2-0 8- 00:00: 00 No 4 &lt 2022-0 8- 00:00: 00 No 10 TAKE 1 CAPSULE BY MOUTH THREE TIMES DAILY 2022-0 8- 00:00: 00 No 300 &lt 2022-0 8- 00:00: 00 No 4 &lt 2022-0 8- 00:00: 00 No 5 &lt 2022-0 8- 00:00: 00 No 40 &lt 2022-0 8- 00:00: 00 No 5 &lt 2022-0 8- 00:00: 00 No &lt 2022-0 8- 00:00: 00 No 500 &lt 2022-0 8- 00:00: 00 No TAKE 1 TABLET BY MOUTH TWICE A DAY 2022-0 8- 00:00: 00 No &lt 2022-0 8- 00:00: 00 No 25 TAKE 1 TABLET ONCE DAILY BEFORE MEALS 2022-0 8- 00:00: 00 No 40 TAKE 1 TABLET SUBLINGUALL Y DIRECTED NEEDED FOR PAIN SCALE 2-4 2-0 8- 00:00: 00 No 4 &lt 2022-0 8- 00:00: 00 No 10 TAKE 1 CAPSULE BY MOUTH THREE TIMES DAILY 2022-0 8- 00:00: 00 No 300 &lt 2022-0 8- 00:00: 00 No 4 &lt 2022-0 8- 00:00: 00 No 5 &lt 2022-0 8- 00:00: 00 No 40 &lt 2022-0 8- 00:00: 00 No 5 &lt 2022-0 8- 00:00: 00 No &lt 2022-0 8- 00:00: 00 No 500 &lt 2022-0 8- 00:00: 00 No TAKE 1 TABLET BY MOUTH TWICE A DAY 2022-0 8- 00:00: 00 No &lt 2022-0 8- 00:00: 00 No 25 TAKE 1 TABLET ONCE DAILY BEFORE MEALS 2022-0 8- 00:00: 00 No 40 TAKE 1 TABLET SUBLINGUALL Y DIRECTED NEEDED FOR PAIN SCALE 2-4 2-0 8- 00:00: 00 No 4 &lt 2022-0 8- 00:00: 00 No 10 TAKE 1 CAPSULE BY MOUTH THREE TIMES DAILY 2022-0 8- 00:00: 00 No 300 &lt 2022-0 8- 00:00: 00 No 4 &lt 2022-0 8- 00:00: 00 No 5 &lt 2022-0 8- 00:00: 00 No 40 &lt 2022-0 8- 00:00: 00 No 5 &lt 2022-0 8- 00:00: 00 No &lt 2022-0 8- 00:00: 00 No 500 &lt 2022-0 8- 00:00: 00 No TAKE 1 TABLET BY MOUTH TWICE A DAY 2022-0 8- 00:00: 00 No &lt 2022-0 8- 00:00: 00 No 25 TAKE 1 TABLET ONCE DAILY BEFORE MEALS 2022-0 8- 00:00: 00 No 40 TAKE 1 TABLET SUBLINGUALL Y DIRECTED NEEDED FOR PAIN SCALE 2-4 2-0 8- 00:00: 00 No 4 &lt 2022-0 8- 00:00: 00 No 10 TAKE 1 CAPSULE BY MOUTH THREE TIMES DAILY 2022-0 8- 00:00: 00 No 300 &lt 2022-0 8- 00:00: 00 No 4 &lt 2022-0 8- 00:00: 00 No 5 &lt 2022-0 8- 00:00: 00 No 40 &lt 2022-0 8- 00:00: 00 No 5 &lt 2022-0 8- 00:00: 00 No &lt 2022-0 8- 00:00: 00 No 500 &lt 2022-0 8- 00:00: 00 No TAKE 1 TABLET BY MOUTH TWICE A DAY 2022-0 8- 00:00: 00 No &lt 2022-0 8- 00:00: 00 No 25 TAKE 1 TABLET ONCE DAILY BEFORE MEALS 2022-0 8- 00:00: 00 No 40 TAKE 1 TABLET SUBLINGUALL Y DIRECTED NEEDED FOR PAIN SCALE 2-4 2-0 8- 00:00: 00 No 4 &lt 2022-0 8- 00:00: 00 No 10 TAKE 1 CAPSULE BY MOUTH THREE TIMES DAILY 2022-0 8- 00:00: 00 No 300 &lt 2022-0 8- 00:00: 00 No 4 &lt 2022-0 8- 00:00: 00 No 5 &lt 2022-0 8- 00:00: 00 No 40 &lt 2022-0 8- 00:00: 00 No 5 &lt 2022-0 8- 00:00: 00 No &lt 2022-0 8- 00:00: 00 No 500 &lt 2022-0 8- 00:00: 00 No TAKE 1 TABLET BY MOUTH TWICE A DAY 2022-0 8- 00:00: 00 Yes Toney Cowan Zurdo &lt 2022-0 8- 00:00: 00 Yes 25 Toney Renner TAKE 1 TABLET ONCE DAILY BEFORE MEALS 2022-0 8- 00:00: 00 Yes 40 Toney Renner TAKE 1 TABLET SUBLINGUALL Y DIRECTED NEEDED FOR PAIN SCALE 2-4 2022-0 8- 00:00: 00 Yes 4 Toney Camryn Zurdo &lt 2022-0 8- 00:00: 00 Yes 10 Toney Renner TAKE 1 CAPSULE BY MOUTH THREE TIMES DAILY 2022-0 8- 00:00: 00 Yes 300 Toney Camryn Zurdo &lt 2022-0 8- 00:00: 00 Yes 4 Toney F Zurdo &lt 2022-0 8- 00:00: 00 Yes 5 Toney Camryn Zurdo &lt 2022-0 8- 00:00: 00 Yes 40 Toney Camryn Zurdo &lt 2022-0 8- 00:00: 00 Yes 5 Toney F Zurdo &lt 2022-0 8- 00:00: 00 Yes Toney Camryn Zurdo &lt 2022-0 8- 00:00: 00 Yes 500 Toney Camryn Zurdo &lt 2022-0 8- 00:00: 00 Yes Toney F Zurdo Dose Unknown 2022-0 7- 00:00: 00 No 5 Dose Unknown 2022-0 7- 00:00: 00 No 5 Dose Unknown 2022-0 7- 00:00: 00 No 5 Dose Unknown 2022-0 7- 00:00: 00 No 5 Dose Unknown 2022-0 7- 00:00: 00 No 5 Dose Unknown 2022-0 7- 00:00: 00 No 5 Dose Unknown 2022-0 7-29 00:00: 00 No 5 Dose Unknown 05-24 00:00: 00 Yes 5 Toney Renner TAKE 1 TABLET BY MOUTH TWICE A DAY 05-23 00:00: 00 No 10 TAKE 1 TABLET BY MOUTH NIGHTLY 05-23 00:00: 00 No 40 TAKE 1 TABLET BY MOUTH TWICE A DAY 0 05-23 00:00: 00 No 10 TAKE 1 TABLET BY MOUTH NIGHTLY 0 05-23 00:00: 00 No 40 TAKE 1 TABLET BY MOUTH TWICE A DAY 0 05-23 00:00: 00 No 10 TAKE 1 TABLET BY MOUTH NIGHTLY 05-23 00:00: 00 No 40 TAKE 1 TABLET BY MOUTH TWICE A DAY 0 05-23 00:00: 00 No 10 TAKE 1 TABLET BY MOUTH NIGHTLY 0 05-23 00:00: 00 No 40 TAKE 1 TABLET BY MOUTH TWICE A DAY 05-23 00:00: 00 No 10 TAKE 1 TABLET BY MOUTH NIGHTLY 0 05-23 00:00: 00 No 40 TAKE 1 TABLET BY MOUTH TWICE A DAY 05-23 00:00: 00 No 10 TAKE 1 TABLET BY MOUTH NIGHTLY 05-23 00:00: 00 No 40 TAKE 1 TABLET BY MOUTH TWICE A DAY 05-23 00:00: 00 No 10 TAKE 1 TABLET BY MOUTH NIGHTLY 05-23 00:00: 00 No 40 TAKE 1 TABLET BY MOUTH TWICE A DAY 05-23 00:00: 00 Yes 10 Toney Renner TAKE 1 TABLET BY MOUTH NIGHTLY 05-23 00:00: 00 Yes 40 Toney Renner Dose Unknown 05-16 00:00: 00 No 25 Dose Unknown 05-16 00:00: 00 No Dose Unknown 05-16 00:00: 00 No 25 Dose Unknown 05-16 00:00: 00 No Dose Unknown 05-16 00:00: 00 No 25 Dose Unknown 05-16 00:00: 00 No Dose Unknown 05-16 00:00: 00 No 25 Dose Unknown 05-16 00:00: 00 No Dose Unknown 2021-0 7 00:00: 00 No 25 Dose Unknown 2021-0 7 00:00: 00 No Dose Unknown 2-0 7 00:00: 00 No 25 Dose Unknown 2021-0 05-16 00:00: 00 No Dose Unknown 2021-0 05-16 00:00: 00 No 25 Dose Unknown 2021-0 05-16 00:00: 00 No Dose Unknown 2021-0 05-16 00:00: 00 Yes 25 Toney Renner Dose Unknown 2021-0 05-16 00:00: 00 Yes Toney Renner &lt 2022-0 7 00:00: 00 No 4 Dose Unknown 2021-0 05-14 00:00: 00 No 25 &lt 2022-0 7 00:00: 00 No 300 TAKE 1 TABLET BY MOUTH TWICE A DAY 2-0 7- 00:00: 00 No 5 TAKE 1 TABLET BY MOUTH EVERY 12 HOURS FOR 7 DAYS 2022-0 7- 00:00: 00 No TAKE 1 TABLET BY MOUTH TWICE A DAY 2-0 7 00:00: 00 No &lt 2022-0 7 00:00: 00 No 4 Dose Unknown 2021-0 05-14 00:00: 00 No &lt 2022-0 7 00:00: 00 No 4 Dose Unknown 2021-0 05-14 00:00: 00 No 25 &lt 2022-0 7 00:00: 00 No 300 TAKE 1 TABLET BY MOUTH TWICE A DAY 2022-0 7 00:00: 00 No 5 TAKE 1 TABLET BY MOUTH EVERY 12 HOURS FOR 7 DAYS 2022-0 7 00:00: 00 No TAKE 1 TABLET BY MOUTH TWICE A DAY 2-0 7 00:00: 00 No &lt 2022-0 7 00:00: 00 No 4 Dose Unknown 2022-0 7 00:00: 00 No &lt 2022-0 7 00:00: 00 No 4 Dose Unknown 2-0 7 00:00: 00 No 25 &lt 2022-0 7- 00:00: 00 No 300 TAKE 1 TABLET BY MOUTH TWICE A DAY 2022-0 7-19 00:00: 00 No 5 TAKE 1 TABLET BY MOUTH EVERY 12 HOURS FOR 7 DAYS 2022-0 7-19 00:00: 00 No TAKE 1 TABLET BY MOUTH TWICE A DAY 2-0 7-19 00:00: 00 No &lt 2022-0 719 00:00: 00 No 4 Dose Unknown 2-0 719 00:00: 00 No &lt 2022-0 719 00:00: 00 No 4 Dose Unknown 2021-0 05-14 00:00: 00 No 25 &lt 2022-0 7 00:00: 00 No 300 TAKE 1 TABLET BY MOUTH TWICE A DAY 2-0 719 00:00: 00 No 5 TAKE 1 TABLET BY MOUTH EVERY 12 HOURS FOR 7 DAYS 2-0 05-14 00:00: 00 No TAKE 1 TABLET BY MOUTH TWICE A DAY 2-0 7 00:00: 00 No &lt 2022-0 7 00:00: 00 No 4 Dose Unknown 2021-0 05-14 00:00: 00 No &lt 2022-0 7 00:00: 00 No 4 Dose Unknown 2021-0 05-14 00:00: 00 No 25 &lt 2022-0 7 00:00: 00 No 300 TAKE 1 TABLET BY MOUTH TWICE A DAY 2021-0 05-14 00:00: 00 No 5 TAKE 1 TABLET BY MOUTH EVERY 12 HOURS FOR 7 DAYS 2021-0 7 00:00: 00 No TAKE 1 TABLET BY MOUTH TWICE A DAY 2-0 19 00:00: 00 No &lt 2022-0 719 00:00: 00 No 4 Dose Unknown 2021-0 05-14 00:00: 00 No &lt 2022-0 7 00:00: 00 No 4 Dose Unknown 2021-0 05-14 00:00: 00 No 25 &lt 2022-0 7 00:00: 00 No 300 TAKE 1 TABLET BY MOUTH TWICE A DAY 2-0 -19 00:00: 00 No 5 TAKE 1 TABLET BY MOUTH EVERY 12 HOURS FOR 7 DAYS 2-0 7 00:00: 00 No TAKE 1 TABLET BY MOUTH TWICE A DAY 2-0 19 00:00: 00 No &lt 2022-0 05-14 00:00: 00 No 4 Dose Unknown 2021-0 05-14 00:00: 00 No &lt 2-0 7 00:00: 00 No 4 Dose Unknown 2021-0 05-14 00:00: 00 No 25 &lt 2022-0 7 00:00: 00 No 300 TAKE 1 TABLET BY MOUTH TWICE A DAY 2021-0 - 00:00: 00 No 5 TAKE 1 TABLET BY MOUTH EVERY 12 HOURS FOR 7 DAYS 2021-0 - 00:00: 00 No TAKE 1 TABLET BY MOUTH TWICE A DAY 2021-0 05-14 00:00: 00 No &lt 2-0 7 00:00: 00 No 4 Dose Unknown 2021-0 05-14 00:00: 00 No &lt 2-0 05-14 00:00: 00 No 4 Dose Unknown 2021-0 05-14 00:00: 00 No 25 &lt 2-0 7 00:00: 00 No 300 TAKE 1 TABLET BY MOUTH TWICE A DAY 2021-0 05-14 00:00: 00 No 5 TAKE 1 TABLET BY MOUTH EVERY 12 HOURS FOR 7 DAYS 2021-0 05-14 00:00: 00 No TAKE 1 TABLET BY MOUTH TWICE A DAY 2021-0 05-14 00:00: 00 No &lt 2021-0 05-14 00:00: 00 No 4 Dose Unknown 2021-0 05-14 00:00: 00 No &lt 2-0 05-14 00:00: 00 Yes 4 Toney Camryn Renner Dose Unknown 2021-0 05-14 00:00: 00 Yes 25 Toney Camryn Renner &lt 2021-0 05-14 00:00: 00 Yes 300 Toney Renner TAKE 1 TABLET BY MOUTH TWICE A DAY 2021-0 05-14 00:00: 00 Yes 5 Toney Camryn Renner TAKE 1 TABLET BY MOUTH EVERY 12 HOURS FOR 7 DAYS 2021-0 05-14 00:00: 00 Yes Toney F Zurdo TAKE 1 TABLET BY MOUTH TWICE A DAY 2021-0 05-14 00:00: 00 Yes Toney Camryn Renner &lt 2-0 05-14 00:00: 00 Yes 4 Toney F Zurdo Dose Unknown 2021-0 05-14 00:00: 00 Yes Toney F Zurdo &lt 2021-0 7-15 00:00: 00 No 5 &lt 2022-0 7-15 00:00: 00 No 5 &lt 2022-0 7-15 00:00: 00 No 5 &lt 2022-0 7-15 00:00: 00 No 5 &lt 2022-0 7-15 00:00: 00 No 5 &lt 2022-0 7-15 00:00: 00 No 5 &lt 2022-0 7-15 00:00: 00 No 5 &lt 2022-0 7-15 00:00: 00 No 5 &lt 2022-0 7-15 00:00: 00 Yes 5 Toney Renner TAKE 1 TABLET BY MOUTH EVERY DAY 2021-0 7-14 00:00: 00 No 100 TAKE 1 TABLET BY MOUTH EVERY DAY 2021-0 7-14 00:00: 00 No 100 TAKE 1 TABLET BY MOUTH EVERY DAY 2021-0 714 00:00: 00 No 100 TAKE 1 TABLET BY MOUTH EVERY DAY 2021-0 714 00:00: 00 No 100 TAKE 1 TABLET BY MOUTH EVERY DAY 2021-0 714 00:00: 00 No 100 TAKE 1 TABLET BY MOUTH EVERY DAY 2-0 714 00:00: 00 No 100 TAKE 1 TABLET BY MOUTH EVERY DAY 2021-0 714 00:00: 00 No 100 TAKE 1 TABLET BY MOUTH EVERY DAY 2021-0 14 00:00: 00 No 100 TAKE 1 TABLET BY MOUTH EVERY DAY 2021-0 714 00:00: 00 Yes 100 Toney Renner TAKE 1 TABLET BY MOUTH NIGHTLY 2021-0 05-03 00:00: 00 No 40 TAKE 1 TABLET BY MOUTH NIGHTLY 2-0 05-03 00:00: 00 No 40 TAKE 1 TABLET BY MOUTH NIGHTLY 2021-0 05-03 00:00: 00 No 40 TAKE 1 TABLET BY MOUTH NIGHTLY 2021-0 05-03 00:00: 00 No 40 TAKE 1 TABLET BY MOUTH NIGHTLY 2021-0 05-03 00:00: 00 No 40 TAKE 1 TABLET BY MOUTH NIGHTLY 2021-0 05-03 00:00: 00 No 40 TAKE 1 TABLET BY MOUTH NIGHTLY 2021-0 05-03 00:00: 00 No 40 TAKE 1 TABLET BY MOUTH NIGHTLY 2021-0 05-03 00:00: 00 No 40 TAKE 1 TABLET BY MOUTH NIGHTLY 05-03 00:00: 00 Yes 40 Toney Renner TAKE 1 CAPSULE BY MOUTH TWICE A DAY 05-03 00:00: 00 Yes Toney Renner TAKE 1 TABLET BY MOUTH EVERY DAY 05-02 00:00: 00 No 25 TAKE 1 TABLET BY MOUTH EVERY 12 HOURS FOR 7 DAYS 05-02 00:00: 00 No TAKE 2 TABLETS BY MOUTH EVERY 6 HOURS NEEDED 05-02 00:00: 00 No Dose Unknown 05-02 00:00: 00 No &lt 05-02 00:00: 00 No 40 TAKE 1 CAPSULE BY MOUTH THREE TIMES DAILY 05-02 00:00: 00 No 300 &lt 05-02 00:00: 00 No 10 Dose Unknown 05-02 00:00: 00 No 5 TAKE 1 TABLET SUBLINGUALL Y DIRECTED NEEDED FOR PAIN SCALE 2-4 05-02 00:00: 00 No 4 TAKE 1 TABLET BY MOUTH EVERY DAY 05-02 00:00: 00 No 25 TAKE 1 TABLET BY MOUTH EVERY 12 HOURS FOR 7 DAYS 05-02 00:00: 00 No TAKE 2 TABLETS BY MOUTH EVERY 6 HOURS NEEDED 05-02 00:00: 00 No Dose Unknown 05-02 00:00: 00 No &lt 0 05-02 00:00: 00 No 40 TAKE 1 CAPSULE BY MOUTH THREE TIMES DAILY 05-02 00:00: 00 No 300 &lt 05-02 00:00: 00 No 10 Dose Unknown 05-02 00:00: 00 No 5 TAKE 1 TABLET SUBLINGUALL Y DIRECTED NEEDED FOR PAIN SCALE 2-4 05-02 00:00: 00 No 4 TAKE 1 TABLET BY MOUTH EVERY DAY 05-02 00:00: 00 No 25 TAKE 1 TABLET BY MOUTH EVERY 12 HOURS FOR 7 DAYS 05-02 00:00: 00 No TAKE 2 TABLETS BY MOUTH EVERY 6 HOURS NEEDED 05-02 00:00: 00 No Dose Unknown 05-02 00:00: 00 No &lt 05-02 00:00: 00 No 40 TAKE 1 CAPSULE BY MOUTH THREE TIMES DAILY 0 05-02 00:00: 00 No 300 &lt 0 05-02 00:00: 00 No 10 Dose Unknown 0 05-02 00:00: 00 No 5 TAKE 1 TABLET SUBLINGUALL Y DIRECTED NEEDED FOR PAIN SCALE 2-4 0 05-02 00:00: 00 No 4 TAKE 1 TABLET BY MOUTH EVERY DAY 0 05-02 00:00: 00 No 25 TAKE 1 TABLET BY MOUTH EVERY 12 HOURS FOR 7 DAYS 0 05-02 00:00: 00 No TAKE 2 TABLETS BY MOUTH EVERY 6 HOURS NEEDED 0 05-02 00:00: 00 No Dose Unknown 0 05-02 00:00: 00 No &lt 0 05-02 00:00: 00 No 40 TAKE 1 CAPSULE BY MOUTH THREE TIMES DAILY 0 05-02 00:00: 00 No 300 &lt 0 05-02 00:00: 00 No 10 TAKE 1 TABLET BY MOUTH EVERY DAY 0 05-02 00:00: 00 No 25 TAKE 1 TABLET BY MOUTH EVERY 12 HOURS FOR 7 DAYS 0 05-02 00:00: 00 No TAKE 2 TABLETS BY MOUTH EVERY 6 HOURS NEEDED 0 05-02 00:00: 00 No Dose Unknown 0 05-02 00:00: 00 No &lt 0 05-02 00:00: 00 No 40 TAKE 1 CAPSULE BY MOUTH THREE TIMES DAILY 0 05-02 00:00: 00 No 300 &lt 0 05-02 00:00: 00 No 10 Dose Unknown 0 05-02 00:00: 00 No 5 TAKE 1 TABLET SUBLINGUALL Y DIRECTED NEEDED FOR PAIN SCALE 2-4 0 05-02 00:00: 00 No 4 Dose Unknown 0 05-02 00:00: 00 No 5 TAKE 1 TABLET SUBLINGUALL Y DIRECTED NEEDED FOR PAIN SCALE 2-4 0 05-02 00:00: 00 No 4 TAKE 1 TABLET BY MOUTH EVERY DAY 0 05-02 00:00: 00 No 25 TAKE 1 TABLET BY MOUTH EVERY 12 HOURS FOR 7 DAYS 0 05-02 00:00: 00 No TAKE 2 TABLETS BY MOUTH EVERY 6 HOURS NEEDED 0 05-02 00:00: 00 No Dose Unknown 05-02 00:00: 00 No &lt 0 05-02 00:00: 00 No 40 TAKE 1 CAPSULE BY MOUTH THREE TIMES DAILY 05-02 00:00: 00 No 300 &lt 0 05-02 00:00: 00 No 10 Dose Unknown 05-02 00:00: 00 No 5 TAKE 1 TABLET SUBLINGUALL Y DIRECTED NEEDED FOR PAIN SCALE 2-4 05-02 00:00: 00 No 4 TAKE 1 TABLET BY MOUTH EVERY DAY 05-02 00:00: 00 No 25 TAKE 1 TABLET BY MOUTH EVERY 12 HOURS FOR 7 DAYS 05-02 00:00: 00 No TAKE 2 TABLETS BY MOUTH EVERY 6 HOURS NEEDED 05-02 00:00: 00 No Dose Unknown 05-02 00:00: 00 No &lt 0 05-02 00:00: 00 No 40 TAKE 1 CAPSULE BY MOUTH THREE TIMES DAILY 05-02 00:00: 00 No 300 &lt 0 05-02 00:00: 00 No 10 Dose Unknown 05-02 00:00: 00 No 5 TAKE 1 TABLET SUBLINGUALL Y DIRECTED NEEDED FOR PAIN SCALE 2-4 05-02 00:00: 00 No 4 TAKE 1 TABLET BY MOUTH EVERY DAY 05-02 00:00: 00 No 25 TAKE 1 TABLET BY MOUTH EVERY 12 HOURS FOR 7 DAYS 05-02 00:00: 00 No TAKE 2 TABLETS BY MOUTH EVERY 6 HOURS NEEDED 05-02 00:00: 00 No Dose Unknown 05-02 00:00: 00 No &lt 0 05-02 00:00: 00 No 40 TAKE 1 CAPSULE BY MOUTH THREE TIMES DAILY 05-02 00:00: 00 No 300 &lt 0 05-02 00:00: 00 No 10 Dose Unknown 05-02 00:00: 00 No 5 TAKE 1 TABLET SUBLINGUALL Y DIRECTED NEEDED FOR PAIN SCALE 2-4 2021-0 - 00:00: 00 No 4 TAKE 1 TABLET BY MOUTH EVERY DAY 2021-0 - 00:00: 00 Yes 25 Toney Renner TAKE 1 TABLET BY MOUTH EVERY 12 HOURS FOR 7 DAYS 0 05-02 00:00: 00 Yes Toney Renner TAKE 2 TABLETS BY MOUTH EVERY 6 HOURS NEEDED 0 05-02 00:00: 00 Yes Toney Renner Dose Unknown 0 05-02 00:00: 00 Yes Toney Renner &lt 0 05-02 00:00: 00 Yes 40 Toney Renner TAKE 1 CAPSULE BY MOUTH THREE TIMES DAILY 0 05-02 00:00: 00 Yes 300 Toney Renner &lt 0 05-02 00:00: 00 Yes 10 Toney Renner Dose Unknown 0 05-02 00:00: 00 Yes 5 Toney Renner TAKE 1 TABLET SUBLINGUALL Y DIRECTED NEEDED FOR PAIN SCALE 2-4 0 05-02 00:00: 00 Yes 4 Toney Renner TAKE 1 TABLET BY MOUTH EVERY DAY 0 04-26 00:00: 00 No &lt 2022-0 7- 00:00: 00 No TAKE 1 TABLET SUBLINGUALL Y DIRECTED NEEDED FOR PAIN SCALE 2-4 2021-0 7- 00:00: 00 No &lt 2022-0 7- 00:00: 00 No &lt 2022-0 7- 00:00: 00 No &lt 2022-0 7- 00:00: 00 No TAKE 1 TABLET BY MOUTH EVERY DAY 2021-0 7- 00:00: 00 No &lt 2022-0 7- 00:00: 00 No TAKE 1 TABLET SUBLINGUALL Y DIRECTED NEEDED FOR PAIN SCALE 2-4 0 7- 00:00: 00 No &lt 2022-0 7- 00:00: 00 No &lt 2022-0 7- 00:00: 00 No &lt 2022-0 7- 00:00: 00 No TAKE 1 TABLET BY MOUTH EVERY DAY 2021-0 7- 00:00: 00 No &lt 2022-0 7- 00:00: 00 No TAKE 1 TABLET SUBLINGUALL Y DIRECTED NEEDED FOR PAIN SCALE 2-4 2022-0 7-01 00:00: 00 No &lt 2022-0 7-01 00:00: 00 No &lt 2022-0 7-01 00:00: 00 No &lt 2022-0 7-01 00:00: 00 No TAKE 1 TABLET BY MOUTH EVERY DAY 2022-0 7- 00:00: 00 No &lt 2022-0 7- 00:00: 00 No TAKE 1 TABLET SUBLINGUALL Y DIRECTED NEEDED FOR PAIN SCALE 2-4 2022-0 7-01 00:00: 00 No &lt 2022-0 7-01 00:00: 00 No &lt 2022-0 7- 00:00: 00 No &lt 2022-0 7- 00:00: 00 No TAKE 1 TABLET BY MOUTH EVERY DAY 2022-0 7- 00:00: 00 No &lt 2022-0 7- 00:00: 00 No TAKE 1 TABLET SUBLINGUALL Y DIRECTED NEEDED FOR PAIN SCALE 2-4 2022-0 7-01 00:00: 00 No &lt 2022-0 7- 00:00: 00 No &lt 2022-0 7- 00:00: 00 No &lt 2022-0 7- 00:00: 00 No TAKE 1 TABLET BY MOUTH EVERY DAY 2022-0 7- 00:00: 00 No &lt 2022-0 7- 00:00: 00 No TAKE 1 TABLET SUBLINGUALL Y DIRECTED NEEDED FOR PAIN SCALE 2-4 2022-0 7- 00:00: 00 No &lt 2022-0 7- 00:00: 00 No &lt 2022-0 7- 00:00: 00 No &lt 2022-0 7- 00:00: 00 No TAKE 1 TABLET BY MOUTH EVERY DAY 2022-0 7- 00:00: 00 No &lt 2022-0 7- 00:00: 00 No TAKE 1 TABLET SUBLINGUALL Y DIRECTED NEEDED FOR PAIN SCALE 2-4 2022-0 7- 00:00: 00 No &lt 2022-0 7- 00:00: 00 No &lt 2022-0 7- 00:00: 00 No &lt 2022-0 7- 00:00: 00 No TAKE 1 TABLET BY MOUTH EVERY DAY 0 04-26 00:00: 00 No &lt 2021-0 04-26 00:00: 00 No TAKE 1 TABLET SUBLINGUALL Y DIRECTED NEEDED FOR PAIN SCALE 2-4 0 - 00:00: 00 No &lt 2021-0 7- 00:00: 00 No &lt 2021-0 7 00:00: 00 No &lt 0 04-26 00:00: 00 No TAKE 1 TABLET BY MOUTH EVERY DAY 0 04-26 00:00: 00 Yes Toney Renner &lt 0 04-26 00:00: 00 Yes Toney Renner TAKE 1 TABLET SUBLINGUALL Y DIRECTED NEEDED FOR PAIN SCALE 2-4 0 04-26 00:00: 00 Yes Toney Cowan Zurdo &lt 0 04-26 00:00: 00 Yes Toney Camryn Zurdo &lt 0 04-26 00:00: 00 Yes Toney Camryn Zurdo &lt 0 04-26 00:00: 00 Yes Toney Renner TAKE 1 TABLET BY MOUTH TWICE A DAY 0 04-17 00:00: 00 No TAKE 1 TABLET BY MOUTH TWICE A DAY 0 04-17 00:00: 00 No TAKE 1 TABLET BY MOUTH TWICE A DAY 0 04-17 00:00: 00 No TAKE 1 TABLET BY MOUTH TWICE A DAY 0 04-17 00:00: 00 No TAKE 1 TABLET BY MOUTH TWICE A DAY 0 04-17 00:00: 00 No TAKE 1 TABLET BY MOUTH TWICE A DAY 0 04-17 00:00: 00 No TAKE 1 TABLET BY MOUTH TWICE A DAY 0 04-17 00:00: 00 No TAKE 1 TABLET BY MOUTH TWICE A DAY 0 04-17 00:00: 00 No TAKE 1 TABLET BY MOUTH TWICE A DAY 0 04-17 00:00: 00 Yes Toney Renner glipizide 10 mg tablet 0 04-16 00:00: 00 No 1mg TAKE 2 TABLETS BY MOUTH EVERY 6 HOURS NEEDED 0 04-16 00:00: 00 No glipizide 10 mg tablet 0 04-16 00:00: 00 No 1mg TAKE 2 TABLETS BY MOUTH EVERY 6 HOURS NEEDED 2021-0 04-16 00:00: 00 No glipizide 10 mg tablet 0 04-16 00:00: 00 No 1mg TAKE 2 TABLETS BY MOUTH EVERY 6 HOURS NEEDED 2021-0 04-16 00:00: 00 No glipizide 10 mg tablet 0 04-16 00:00: 00 No 1mg TAKE 2 TABLETS BY MOUTH EVERY 6 HOURS NEEDED 0 04-16 00:00: 00 No glipizide 10 mg tablet 0 04-16 00:00: 00 No 1mg TAKE 2 TABLETS BY MOUTH EVERY 6 HOURS NEEDED 0 04-16 00:00: 00 No Dose Unknown 0 04-16 00:00: 00 No TAKE 2 TABLETS BY MOUTH EVERY 6 HOURS NEEDED 0 04-16 00:00: 00 No TAKE 1 TABLET TWICE A DAY 30 MINUTES BEFORE MEALS 0 04-16 00:00: 00 No TAKE 2 TABLETS BY MOUTH EVERY 6 HOURS NEEDED 0 04-16 00:00: 00 No glipizide 10 mg tablet 0 04-16 00:00: 00 No 1mg TAKE 2 TABLETS BY MOUTH EVERY 6 HOURS NEEDED 0 04-16 00:00: 00 No TAKE 1 TABLET TWICE A DAY 30 MINUTES BEFORE MEALS 0 04-16 00:00: 00 Yes Toney Camryn Zurdo TAKE 2 TABLETS BY MOUTH EVERY 6 HOURS NEEDED 0 04-16 00:00: 00 Yes Toneyfranklin Renner Dose Unknown 04-16 00:00: 00 Yes 10 Toney Renner amlodipine 5 mg tablet 01-21 00:00: 00 No 1mg Januvia 100 mg tablet 01-21 00:00: 00 No 1mg Eliquis 5 mg tablet 01-21 00:00: 00 No 1mg glipizide 10 mg tablet 01-21 00:00: 00 No 1mg metformin 1,000 mg tablet 01-21 00:00: 00 No 1mg atorvastati n 40 mg tablet 01-21 00:00: 00 No 1mg omeprazole 40 mg capsule,del ayed release 0 01-21 00:00: 00 No 1mg Dose Unknown 0 01-21 00:00: 00 No Dose Unknown 0 01-21 00:00: 00 No Dose Unknown 0 01-21 00:00: 00 No Dose Unknown 0 01-21 00:00: 00 No amlodipine 5 mg tablet 0 01-21 00:00: 00 No 1mg Januvia 100 mg tablet 0 01-21 00:00: 00 No 1mg Eliquis 5 mg tablet 0 01-21 00:00: 00 No 1mg glipizide 10 mg tablet 0 01-21 00:00: 00 No 1mg metformin 1,000 mg tablet 01-21 00:00: 00 No 1mg atorvastati n 40 mg tablet 01-21 00:00: 00 No 1mg omeprazole 40 mg capsule,del ayed release 0 01-21 00:00: 00 No 1mg Dose Unknown 0 01-21 00:00: 00 No Dose Unknown 0 01-21 00:00: 00 No Dose Unknown 0 01-21 00:00: 00 No Dose Unknown 0 01-21 00:00: 00 No Dose Unknown 0 01-21 00:00: 00 No Dose Unknown 0 01-21 00:00: 00 No Dose Unknown 0 01-21 00:00: 00 No Dose Unknown 0 01-21 00:00: 00 No amlodipine 5 mg tablet 0 01-21 00:00: 00 No 1mg Januvia 100 mg tablet 01-21 00:00: 00 No 1mg Eliquis 5 mg tablet 0 01-21 00:00: 00 No 1mg glipizide 10 mg tablet 0 01-21 00:00: 00 No 1mg metformin 1,000 mg tablet 01-21 00:00: 00 No 1mg atorvastati n 40 mg tablet 0 01-21 00:00: 00 No 1mg omeprazole 40 mg capsule,del ayed release 28 00:00: 00 No 1mg Dose Unknown 0 01-21 00:00: 00 No Dose Unknown 0 01-21 00:00: 00 No Dose Unknown 0 01-21 00:00: 00 No Dose Unknown 0 01-21 00:00: 00 No amlodipine 5 mg tablet 0 01-21 00:00: 00 No 1mg Januvia 100 mg tablet 0 01-21 00:00: 00 No 1mg Eliquis 5 mg tablet 01-21 00:00: 00 No 1mg glipizide 10 mg tablet 0 01-21 00:00: 00 No 1mg metformin 1,000 mg tablet 0 01-21 00:00: 00 No 1mg atorvastati n 40 mg tablet 01-21 00:00: 00 No 1mg omeprazole 40 mg capsule,del ayed release 01-21 00:00: 00 No 1mg Dose Unknown 0 01-21 00:00: 00 No Dose Unknown 0 01-21 00:00: 00 No Dose Unknown 0 01-21 00:00: 00 No Dose Unknown 0 01-21 00:00: 00 No Dose Unknown 0 01-21 00:00: 00 No Dose Unknown 0 01-21 00:00: 00 No Dose Unknown 0 01-21 00:00: 00 No Dose Unknown 0 01-21 00:00: 00 No TAKE 1 TABLET DAILY. 0 01-21 00:00: 00 No glipizide 10 mg tablet 0 01-21 00:00: 00 No 1mg metformin 1,000 mg tablet 0 01-21 00:00: 00 No 1mg Dose Unknown 0 01-21 00:00: 00 No Dose Unknown 0 01-21 00:00: 00 No Dose Unknown 0 01-21 00:00: 00 No Dose Unknown 0 01-21 00:00: 00 No Dose Unknown 0 01-21 00:00: 00 No Dose Unknown 0 01-21 00:00: 00 No Dose Unknown 01-21 00:00: 00 No Dose Unknown 01-21 00:00: 00 No TAKE 1 TABLET DAILY. 01-21 00:00: 00 No glipizide 10 mg tablet 01-21 00:00: 00 No 1mg metformin 1,000 mg tablet 01-21 00:00: 00 No 1mg Dose Unknown 01-21 00:00: 00 No Dose Unknown 01-21 00:00: 00 No Dose Unknown 01-21 00:00: 00 No Dose Unknown 01-21 00:00: 00 No Dose Unknown 01-21 00:00: 00 No Dose Unknown 01-21 00:00: 00 No Dose Unknown 01-21 00:00: 00 No Dose Unknown 01-21 00:00: 00 No amlodipine 5 mg tablet 01-21 00:00: 00 No 1mg Januvia 100 mg tablet 01-21 00:00: 00 No 1mg Eliquis 5 mg tablet 01-21 00:00: 00 No 1mg glipizide 10 mg tablet 01-21 00:00: 00 No 1mg metformin 1,000 mg tablet 01-21 00:00: 00 No 1mg atorvastati n 40 mg tablet 01-21 00:00: 00 No 1mg omeprazole 40 mg capsule,del ayed release 01-21 00:00: 00 No 1mg amlodipine 5 mg tablet 01-21 00:00: 00 No 1mg Januvia 100 mg tablet 01-21 00:00: 00 No 1mg Eliquis 5 mg tablet 01-21 00:00: 00 No 1mg glipizide 10 mg tablet 01-21 00:00: 00 No 1mg metformin 1,000 mg tablet 01-21 00:00: 00 No 1mg atorvastati n 40 mg tablet 01-21 00:00: 00 No 1mg omeprazole 40 mg capsule,del ayed release 01-21 00:00: 00 No 1mg Dose Unknown 01-21 00:00: 00 No Dose Unknown 01-21 00:00: 00 No Dose Unknown 01-21 00:00: 00 No Dose Unknown 01-21 00:00: 00 No TAKE 1 TABLET DAILY. 01-21 00:00: 00 Yes Toney Renner glipizide 10 mg tablet 01-21 00:00: 00 Yes 1mg Toney Renner metformin 1,000 mg tablet 01-21 00:00: 00 Yes 1mg Toney Renner Dose Unknown 01-21 00:00: 00 Yes Toney Cowan Zurdo Dose Unknown 01-21 00:00: 00 Yes Toney Cowan Zurdo Dose Unknown 01-21 00:00: 00 Yes Toney Camryn Zurdo Dose Unknown 01-21 00:00: 00 Yes Toney Cowan Zurdo Dose Unknown 01-21 00:00: 00 Yes Toney Camryn Zurdo Dose Unknown 01-21 00:00: 00 Yes Toney Camryn Zurdo Dose Unknown 01-21 00:00: 00 Yes Toney Cowan Zurdo Dose Unknown 01-21 00:00: 00 Yes Toney Cowan Zurdo Dose Unknown 01-21 00:00: 00 Yes 10 Toney Renner glipiZIDE 10 mg tablet 10-29 15:43: 53 Yes 10mg Take 10 mg by mouth 2 (two) times daily. [facility] omeprazole 40 mg capsule 10-29 15:43: 53 Yes 40mg Take 40 mg by mouth daily. [facility] metFORMIN 1,000 mg tablet 10-29 15:43: 53 Yes 1000mg Take 1,000 mg by mouth 2 (two) times daily with meals. [facility] No known medications 10-29 15:43: 53 No [facility] atorvastati n 40 mg tablet 10-29 15:40: 58 Yes 40mg Take 40 mg by mouth at bedtime. [facility] SITagliptin 25 mg tablet 10-29 15:40: 58 Yes 25mg Take 25 mg by mouth daily. [facility] amLODIPine 5 mg tablet 10-29 15:40: 58 Yes 5mg Take 5 mg by mouth daily. [facility] apixaban 5 mg tablet 10-29 15:39: 13 Yes 5mg Take 5 mg by mouth 2 (two) times daily. [facility] naproxen 500 mg tablet 10-29 15:39: 13 Yes 500mg Take 500 mg by mouth 2 (two) times daily with meals. [facility] Januvia 25 mg tablet 2020-10 2 00:00: 00 No 1mg Dose Unknown 2020-10 2 00:00: 00 No Dose Unknown 2020-10 2 00:00: 00 No Dose Unknown 2020-10 2 00:00: 00 No Januvia 25 mg tablet 2020-10 2 00:00: 00 No 1mg Dose Unknown 2020-10 2 00:00: 00 No Dose Unknown 2020-10 2 00:00: 00 No Dose Unknown 2020-10 2 00:00: 00 No Dose Unknown 2020-10 2 00:00: 00 No naproxen 500 mg tablet 2020-10 2 00:00: 00 No 1mg Dose Unknown 2020-10 2- 00:00: 00 No Dose Unknown 2020-10 2- 00:00: 00 No Dose Unknown 2020-10 2 00:00: 00 No naproxen 500 mg tablet 2020-10 2- 00:00: 00 No 1mg Dose Unknown 2020-10 2- 00:00: 00 No Dose Unknown 2020-10 2- 00:00: 00 No Januvia 25 mg tablet 2020-10 2- 00:00: 00 No 1mg Dose Unknown 2020-10 2- 00:00: 00 No Dose Unknown 2020-10 2- 00:00: 00 No Dose Unknown 2020-10 2- 00:00: 00 No Dose Unknown 2020-10 2- 00:00: 00 No naproxen 500 mg tablet 2021-1 2-13 00:00: 00 No 1mg Dose Unknown 2020- 2-13 00:00: 00 No Dose Unknown 2020- 2-13 00:00: 00 No Januvia 25 mg tablet 2020-1 2- 00:00: 00 No 1mg Dose Unknown 2020-10 2- 00:00: 00 No Dose Unknown 2020- 2- 00:00: 00 No Dose Unknown 2020- 2- 00:00: 00 No Dose Unknown 2020- 2- 00:00: 00 No naproxen 500 mg tablet 2020- 2- 00:00: 00 No 1mg Dose Unknown 2020-10 2- 00:00: 00 No Dose Unknown 2020-10 2- 00:00: 00 No TAKE 1 TABLET DAILY. 2020-10 2- 00:00: 00 No Dose Unknown 2020-10 2- 00:00: 00 No Dose Unknown 2020- 2- 00:00: 00 No Dose Unknown 2020-10 2- 00:00: 00 No Dose Unknown 2020-10 2- 00:00: 00 No naproxen 500 mg tablet 2020- 2- 00:00: 00 No 1mg Dose Unknown 2020-10 2- 00:00: 00 No Dose Unknown 2020-10 2- 00:00: 00 No TAKE 1 TABLET DAILY. 2020- 2- 00:00: 00 No Dose Unknown 2020- 2-13 00:00: 00 No Dose Unknown 2020- 2- 00:00: 00 No Dose Unknown 2020- 2-13 00:00: 00 No Dose Unknown 2020- 2-13 00:00: 00 No naproxen 500 mg tablet 2020-1 2-13 00:00: 00 No 1mg Dose Unknown 2020- 2-13 00:00: 00 No Dose Unknown 2020- 2-13 00:00: 00 No Januvia 25 mg tablet 2020- 2-13 00:00: 00 No 1mg Dose Unknown 2020- 2-13 00:00: 00 No Dose Unknown 2020- 2-13 00:00: 00 No Dose Unknown 2020-10 2-13 00:00: 00 No Dose Unknown 2020-10 2- 00:00: 00 No naproxen 500 mg tablet 2020-10 2- 00:00: 00 No 1mg Dose Unknown 2020-10 2- 00:00: 00 No Dose Unknown 2020-10 2- 00:00: 00 No Januvia 25 mg tablet 2020-10 2 00:00: 00 No 1mg Dose Unknown 2020-10 2- 00:00: 00 No Dose Unknown 2020-10 2- 00:00: 00 No Dose Unknown 2020-10 2 00:00: 00 No Dose Unknown 2020-10 2- 00:00: 00 No naproxen 500 mg tablet 2020-10 2- 00:00: 00 No 1mg Dose Unknown 2020-10 2- 00:00: 00 No Dose Unknown 2020-10 2 00:00: 00 No TAKE 1 TABLET DAILY. 2020-10 2- 00:00: 00 Yes Toney F Zurdo Dose Unknown 2020-10 2- 00:00: 00 Yes Toney F Zurdo Dose Unknown 2020-10 2 00:00: 00 Yes Toney F Zurdo Dose Unknown 2020-10 2- 00:00: 00 Yes Toney F Zurdo Dose Unknown 2020-10 2 00:00: 00 Yes Toney F Zurdo naproxen 500 mg tablet 2020-10 2 00:00: 00 Yes 1mg Toney F Zurdo Dose Unknown 2020-10 2- 00:00: 00 Yes Toney F Zurdo Dose Unknown 2020-10 2- 00:00: 00 Yes Toney F Zurdo prednisone 20 mg tablet 0 07-09 00:00: 00 No 1mg benzonatate 200 mg capsule 0 07-09 00:00: 00 No 1mg Bromfed DM 2 mg-30 mg-10 mg/5 mL oral syrup 0 07-09 00:00: 00 No 5mg/5 mL prednisone 20 mg tablet 0 07-09 00:00: 00 No 1mg benzonatate 200 mg capsule 0 07-09 00:00: 00 No 1mg Bromfed DM 2 mg-30 mg-10 mg/5 mL oral syrup 0 07-09 00:00: 00 No 5mg/5 mL prednisone 20 mg tablet 0 07-09 00:00: 00 No 1mg benzonatate 200 mg capsule 0 07-09 00:00: 00 No 1mg Bromfed DM 2 mg-30 mg-10 mg/5 mL oral syrup 0 07-09 00:00: 00 No 5mg/5 mL prednisone 20 mg tablet 0 07-09 00:00: 00 No 1mg benzonatate 200 mg capsule 0 07-09 00:00: 00 No 1mg Bromfed DM 2 mg-30 mg-10 mg/5 mL oral syrup 0 07-09 00:00: 00 No 5mg/5 mL Dose Unknown 0 07-09 00:00: 00 No Dose Unknown 0 07-09 00:00: 00 No Dose Unknown 0 07-09 00:00: 00 No Dose Unknown 0 07-09 00:00: 00 No Dose Unknown 0 07-09 00:00: 00 No Dose Unknown 0 07-09 00:00: 00 No prednisone 20 mg tablet 0 07-09 00:00: 00 No 1mg benzonatate 200 mg capsule 0 07-09 00:00: 00 No 1mg Bromfed DM 2 mg-30 mg-10 mg/5 mL oral syrup 0 07-09 00:00: 00 No 5mg/5 mL prednisone 20 mg tablet 0 07-09 00:00: 00 No 1mg benzonatate 200 mg capsule 0 07-09 00:00: 00 No 1mg Bromfed DM 2 mg-30 mg-10 mg/5 mL oral syrup 0 07-09 00:00: 00 No 5mg/5 mL Dose Unknown 0 07-09 00:00: 00 Yes Toney Renner Dose Unknown 0 07-09 00:00: 00 Yes Toney Cowan Zurdo Dose Unknown 0 07-09 00:00: 00 Yes Toney Cowan Zurdo Januvia 25 mg tablet 2020-0 07-02 00:00: 00 No 1mg Januvia 25 mg tablet 2020-0 07-02 00:00: 00 No 1mg Januvia 25 mg tablet 07-02 00:00: 00 No 1mg Januvia 25 mg tablet 07-02 00:00: 00 No 1mg Januvia 25 mg tablet 07-02 00:00: 00 No 1mg Januvia 25 mg tablet 07-02 00:00: 00 No 1mg Januvia 25 mg tablet 07-02 00:00: 00 No 1mg Januvia 25 mg tablet 07-02 00:00: 00 No 1mg Januvia 25 mg tablet 07-02 00:00: 00 Yes 1mg Toney Renner atorvastati n 40 mg tablet 06-13 00:00: 00 No 1mg atorvastati n 40 mg tablet 06-13 00:00: 00 No 1mg atorvastati n 40 mg tablet 06-13 00:00: 00 No 1mg atorvastati n 40 mg tablet 06-13 00:00: 00 No 1mg atorvastati n 40 mg tablet 06-13 00:00: 00 No 1mg atorvastati n 40 mg tablet 06-13 00:00: 00 No 1mg atorvastati n 40 mg tablet 06-13 00:00: 00 No 1mg atorvastati n 40 mg tablet 06-13 00:00: 00 No 1mg atorvastati n 40 mg tablet 8 00:00: 00 Yes 1mg Toney Camryn Zurdo amlodipine 5 mg tablet 8- 00:00: 00 No 1mg metformin 1,000 mg tablet 8 00:00: 00 No 1mg glipizide 10 mg tablet 8 00:00: 00 No 1mg atorvastati n 40 mg tablet 8 00:00: 00 No 1mg tolterodine ER 4 mg capsule,ext ended release 24 hr 8- 00:00: 00 No 1mg omeprazole 40 mg capsule,del ayed release 8- 00:00: 00 No 1mg amlodipine 5 mg tablet 8 00:00: 00 No 1mg metformin 1,000 mg tablet 8 00:00: 00 No 1mg glipizide 10 mg tablet 06-05 00:00: 00 No 1mg atorvastati n 40 mg tablet 8 00:00: 00 No 1mg tolterodine ER 4 mg capsule,ext ended release 24 hr 06-05 00:00: 00 No 1mg omeprazole 40 mg capsule,del ayed release 8 00:00: 00 No 1mg amlodipine 5 mg tablet 8 00:00: 00 No 1mg metformin 1,000 mg tablet 06-05 00:00: 00 No 1mg glipizide 10 mg tablet 8 00:00: 00 No 1mg atorvastati n 40 mg tablet 8 00:00: 00 No 1mg tolterodine ER 4 mg capsule,ext ended release 24 hr 06-05 00:00: 00 No 1mg omeprazole 40 mg capsule,del ayed release 8 00:00: 00 No 1mg amlodipine 5 mg tablet 06-05 00:00: 00 No 1mg metformin 1,000 mg tablet 06-05 00:00: 00 No 1mg glipizide 10 mg tablet 8 00:00: 00 No 1mg atorvastati n 40 mg tablet 06-05 00:00: 00 No 1mg tolterodine ER 4 mg capsule,ext ended release 24 hr 06-05 00:00: 00 No 1mg omeprazole 40 mg capsule,del ayed release 8 00:00: 00 No 1mg amlodipine 5 mg tablet 8 00:00: 00 No 1mg metformin 1,000 mg tablet 8 00:00: 00 No 1mg glipizide 10 mg tablet 8 00:00: 00 No 1mg Dose Unknown 8 00:00: 00 No omeprazole 40 mg capsule,del ayed release 06-05 00:00: 00 No 1mg Dose Unknown 06-05 00:00: 00 No amlodipine 5 mg tablet 06-05 00:00: 00 No 1mg metformin 1,000 mg tablet 06-05 00:00: 00 No 1mg glipizide 10 mg tablet 06-05 00:00: 00 No 1mg Dose Unknown 06-05 00:00: 00 No omeprazole 40 mg capsule,del ayed release 06-05 00:00: 00 No 1mg Dose Unknown 06-05 00:00: 00 No amlodipine 5 mg tablet 06-05 00:00: 00 No 1mg metformin 1,000 mg tablet 06-05 00:00: 00 No 1mg glipizide 10 mg tablet 06-05 00:00: 00 No 1mg atorvastati n 40 mg tablet 06-05 00:00: 00 No 1mg tolterodine ER 4 mg capsule,ext ended release 24 hr 06-05 00:00: 00 No 1mg omeprazole 40 mg capsule,del ayed release 06-05 00:00: 00 No 1mg amlodipine 5 mg tablet 06-05 00:00: 00 No 1mg metformin 1,000 mg tablet 06-05 00:00: 00 No 1mg glipizide 10 mg tablet 06-05 00:00: 00 No 1mg atorvastati n 40 mg tablet 06-05 00:00: 00 No 1mg tolterodine ER 4 mg capsule,ext ended release 24 hr 06-05 00:00: 00 No 1mg omeprazole 40 mg capsule,del ayed release 06-05 00:00: 00 No 1mg amlodipine 5 mg tablet 06-05 00:00: 00 Yes 1mg Toney Renner metformin 1,000 mg tablet 8 00:00: 00 Yes 1mg Toney Renner glipizide 10 mg tablet 8 00:00: 00 Yes 1mg Toney Renner Dose Unknown 06-05 00:00: 00 Yes Toney Renner omeprazole 40 mg capsule,del ayed release 06-05 00:00: 00 Yes 1mg Toney Renner Dose Unknown 06-05 00:00: 00 Yes Toney Renner mupirocin 2 % topical ointment 05-23 00:00: 00 No 1% clindamycin HCl 300 mg capsule 05-23 00:00: 00 No 1mg mupirocin 2 % topical ointment 05-23 00:00: 00 No 1% clindamycin HCl 300 mg capsule 05-23 00:00: 00 No 1mg mupirocin 2 % topical ointment 05-23 00:00: 00 No 1% clindamycin HCl 300 mg capsule 05-23 00:00: 00 No 1mg Dose Unknown 05-23 00:00: 00 No clindamycin HCl 300 mg capsule 05-23 00:00: 00 No 1mg Dose Unknown 05-23 00:00: 00 No clindamycin HCl 300 mg capsule 05-23 00:00: 00 No 1mg Dose Unknown 05-23 00:00: 00 No clindamycin HCl 300 mg capsule 05-23 00:00: 00 No 1mg mupirocin 2 % topical ointment 05-23 00:00: 00 No 1% clindamycin HCl 300 mg capsule 05-23 00:00: 00 No 1mg mupirocin 2 % topical ointment 05-23 00:00: 00 No 1% clindamycin HCl 300 mg capsule 05-23 00:00: 00 No 1mg Dose Unknown 05-23 00:00: 00 Yes Toney Renner clindamycin HCl 300 mg capsule 05-23 00:00: 00 Yes 1mg Toney Renner Silvadene 1 % topical cream 4-13 00:00: 00 No 1% oxybutynin chloride ER 10 mg tablet,exte nded release 24 hr 02-06 00:00: 00 No 1mg glipizide ER 5 mg tablet, extended release 24 hr 02-06 00:00: 00 No 1mg metformin 1,000 mg tablet 02-06 00:00: 00 No 1mg Silvadene 1 % topical cream 02-06 00:00: 00 No 1% oxybutynin chloride ER 10 mg tablet,exte nded release 24 hr 02-06 00:00: 00 No 1mg glipizide ER 5 mg tablet, extended release 24 hr 02-06 00:00: 00 No 1mg metformin 1,000 mg tablet 02-06 00:00: 00 No 1mg Silvadene 1 % topical cream 02-06 00:00: 00 No 1% oxybutynin chloride ER 10 mg tablet,exte nded release 24 hr 02-06 00:00: 00 No 1mg glipizide ER 5 mg tablet, extended release 24 hr 02-06 00:00: 00 No 1mg metformin 1,000 mg tablet 02-06 00:00: 00 No 1mg Silvadene 1 % topical cream 02-06 00:00: 00 No 1% oxybutynin chloride ER 10 mg tablet,exte nded release 24 hr 02-06 00:00: 00 No 1mg glipizide ER 5 mg tablet, extended release 24 hr 02-06 00:00: 00 No 1mg metformin 1,000 mg tablet 02-06 00:00: 00 No 1mg Dose Unknown 02-06 00:00: 00 No metformin 1,000 mg tablet 02-06 00:00: 00 No 1mg Dose Unknown 02-06 00:00: 00 No Dose Unknown 02-06 00:00: 00 No Dose Unknown 02-06 00:00: 00 No TAKE 1 TABLET TWICE A DAY 30 MINUTES BEFORE MEALS 02-06 00:00: 00 No metformin 1,000 mg tablet 02-06 00:00: 00 No 1mg Dose Unknown 02-06 00:00: 00 No Silvadene 1 % topical cream 02-06 00:00: 00 No 1% oxybutynin chloride ER 10 mg tablet,exte nded release 24 hr 02-06 00:00: 00 No 1mg glipizide ER 5 mg tablet, extended release 24 hr 02-06 00:00: 00 No 1mg metformin 1,000 mg tablet 02-06 00:00: 00 No 1mg Silvadene 1 % topical cream 02-06 00:00: 00 No 1% oxybutynin chloride ER 10 mg tablet,exte nded release 24 hr 02-06 00:00: 00 No 1mg glipizide ER 5 mg tablet, extended release 24 hr 02-06 00:00: 00 No 1mg metformin 1,000 mg tablet 02-06 00:00: 00 No 1mg Dose Unknown 02-06 00:00: 00 Yes Toney Renner TAKE 1 TABLET TWICE A DAY 30 MINUTES BEFORE MEALS 02-06 00:00: 00 Yes Toney Renner metformin 1,000 mg tablet 02-06 00:00: 00 Yes 1mg Toney Renner Dose Unknown 02-06 00:00: 00 Yes Toney Renner amlodipine 5 mg tablet 11-03 00:00: 00 No 1mg metformin 1,000 mg tablet 11-03 00:00: 00 No 1mg glipizide ER 5 mg tablet, extended release 24 hr 11-03 00:00: 00 No 1mg atorvastati n 40 mg tablet 11-03 00:00: 00 No 1mg omeprazole 40 mg capsule,del ayed release - 00:00: 00 No 1mg amlodipine 5 mg tablet - 00:00: 00 No 1mg metformin 1,000 mg tablet 11-03 00:00: 00 No 1mg glipizide ER 5 mg tablet, extended release 24 hr - 00:00: 00 No 1mg atorvastati n 40 mg tablet 11-03 00:00: 00 No 1mg omeprazole 40 mg capsule,del ayed release 11-03 00:00: 00 No 1mg amlodipine 5 mg tablet 11-03 00:00: 00 No 1mg metformin 1,000 mg tablet 11-03 00:00: 00 No 1mg glipizide ER 5 mg tablet, extended release 24 hr 11-03 00:00: 00 No 1mg atorvastati n 40 mg tablet 11-03 00:00: 00 No 1mg omeprazole 40 mg capsule,del ayed release 11-03 00:00: 00 No 1mg amlodipine 5 mg tablet 11-03 00:00: 00 No 1mg metformin 1,000 mg tablet 11-03 00:00: 00 No 1mg glipizide ER 5 mg tablet, extended release 24 hr 11-03 00:00: 00 No 1mg atorvastati n 40 mg tablet 11-03 00:00: 00 No 1mg omeprazole 40 mg capsule,del ayed release 11-03 00:00: 00 No 1mg metformin 1,000 mg tablet 11-03 00:00: 00 No 1mg glipizide ER 5 mg tablet, extended release 24 hr 11-03 00:00: 00 No 1mg atorvastati n 40 mg tablet 11-03 00:00: 00 No 1mg Dose Unknown 11-03 00:00: 00 No Dose Unknown 11-03 00:00: 00 No metformin 1,000 mg tablet 11-03 00:00: 00 No 1mg glipizide ER 5 mg tablet, extended release 24 hr 11-03 00:00: 00 No 1mg atorvastati n 40 mg tablet 11-03 00:00: 00 No 1mg Dose Unknown 11-03 00:00: 00 No Dose Unknown 11-03 00:00: 00 No amlodipine 5 mg tablet 11-03 00:00: 00 No 1mg metformin 1,000 mg tablet 11-03 00:00: 00 No 1mg glipizide ER 5 mg tablet, extended release 24 hr 11-03 00:00: 00 No 1mg atorvastati n 40 mg tablet 11-03 00:00: 00 No 1mg omeprazole 40 mg capsule,del ayed release 11-03 00:00: 00 No 1mg amlodipine 5 mg tablet 11-03 00:00: 00 No 1mg metformin 1,000 mg tablet 11-03 00:00: 00 No 1mg glipizide ER 5 mg tablet, extended release 24 hr 11-03 00:00: 00 No 1mg atorvastati n 40 mg tablet 11-03 00:00: 00 No 1mg omeprazole 40 mg capsule,del ayed release 11-03 00:00: 00 No 1mg metformin 1,000 mg tablet 11-03 00:00: 00 Yes 1mg Toney Renner glipizide ER 5 mg tablet, extended release 24 hr 11-03 00:00: 00 Yes 1mg Toney Renner atorvastati n 40 mg tablet 11-03 00:00: 00 Yes 1mg Toney Renner Dose Unknown 11-03 00:00: 00 Yes Toney Renner Dose Unknown 11-03 00:00: 00 Yes Toney Renner Eliquis 5 mg tablet 2019-10 00:00: 00 No 1mg atorvastati n 40 mg tablet 2019-10 00:00: 00 No 1mg Eliquis 5 mg tablet 2019-10 00:00: 00 No 1mg atorvastati n 40 mg tablet 2019-10 00:00: 00 No 1mg Eliquis 5 mg tablet 2019-10 00:00: 00 No 1mg atorvastati n 40 mg tablet 2019-10 00:00: 00 No 1mg Eliquis 5 mg tablet 2019-10 00:00: 00 No 1mg atorvastati n 40 mg tablet 2019-10 00:00: 00 No 1mg atorvastati n 40 mg tablet 2019-10 00:00: 00 No 1mg Dose Unknown 2019-10 00:00: 00 No atorvastati n 40 mg tablet 2019-10 00:00: 00 No 1mg Dose Unknown 2019-10 00:00: 00 No Eliquis 5 mg tablet 2019-10 00:00: 00 No 1mg atorvastati n 40 mg tablet 2019-10 00:00: 00 No 1mg Eliquis 5 mg tablet 2019-10 00:00: 00 No 1mg atorvastati n 40 mg tablet 2019-10 00:00: 00 No 1mg atorvastati n 40 mg tablet 2019-10 00:00: 00 Yes 1mg Toney Renner Dose Unknown 2019-10 00:00: 00 Yes Toney Renner amlodipine 5 mg tablet 2019-10 00:00: 00 No 1mg amlodipine 5 mg tablet 2019-10 00:00: 00 No 1mg amlodipine 5 mg tablet 2019-10 00:00: 00 No 1mg amlodipine 5 mg tablet 2019-10 00:00: 00 No 1mg amlodipine 5 mg tablet 2019-10 00:00: 00 No 1mg amlodipine 5 mg tablet 2019-10 00:00: 00 No 1mg amlodipine 5 mg tablet 2019-10 00:00: 00 No 1mg amlodipine 5 mg tablet 2019-10 00:00: 00 No 1mg amlodipine 5 mg tablet 2019-10 00:00: 00 Yes 1mg Toney Renner omeprazole 40 mg capsule,del ayed release 2019-10 0 00:00: 00 No 1mg midodrine 5 mg tablet 2019-10 0 00:00: 00 No 1mg glipizide ER 5 mg tablet, extended release 24 hr 2019-10 0 00:00: 00 No 1mg metformin 1,000 mg tablet 2019-10 0 00:00: 00 No 1mg Eliquis 5 mg tablet 2019-10 0 00:00: 00 No 1mg atorvastati n 40 mg tablet 2019-10 0 00:00: 00 No 1mg omeprazole 40 mg capsule,del ayed release 2019-10 0 00:00: 00 No 1mg midodrine 5 mg tablet 2019-10 0 00:00: 00 No 1mg glipizide ER 5 mg tablet, extended release 24 hr 2019-10 0 00:00: 00 No 1mg metformin 1,000 mg tablet 2019-10 0 00:00: 00 No 1mg Eliquis 5 mg tablet 2019-10 0 00:00: 00 No 1mg atorvastati n 40 mg tablet 2019-10 0 00:00: 00 No 1mg omeprazole 40 mg capsule,del ayed release 2019-10 0 00:00: 00 No 1mg midodrine 5 mg tablet 2019-10 0 00:00: 00 No 1mg glipizide ER 5 mg tablet, extended release 24 hr 2019-10 0 00:00: 00 No 1mg metformin 1,000 mg tablet 2019-10 00:00: 00 No 1mg Eliquis 5 mg tablet 2019-10 0 00:00: 00 No 1mg atorvastati n 40 mg tablet 2019-10 0 00:00: 00 No 1mg omeprazole 40 mg capsule,del ayed release 2019-10 00:00: 00 No 1mg midodrine 5 mg tablet 2019-10 0 00:00: 00 No 1mg glipizide ER 5 mg tablet, extended release 24 hr 2019-10 00:00: 00 No 1mg metformin 1,000 mg tablet 2019-10 00:00: 00 No 1mg Eliquis 5 mg tablet 2019-10 0 00:00: 00 No 1mg atorvastati n 40 mg tablet 2019-10 0 00:00: 00 No 1mg omeprazole 40 mg capsule,del ayed release 2019-10 0 00:00: 00 No 1mg midodrine 5 mg tablet 2019-10 0 00:00: 00 No 1mg glipizide ER 5 mg tablet, extended release 24 hr 2019-10 0 00:00: 00 No 1mg metformin 1,000 mg tablet 2020 00:00: 00 No 1mg Eliquis 5 mg tablet 2019-10 0 00:00: 00 No 1mg atorvastati n 40 mg tablet 2019-10 0 00:00: 00 No 1mg omeprazole 40 mg capsule,del ayed release 2019-10 0 00:00: 00 No 1mg midodrine 5 mg tablet 2019-10 0 00:00: 00 No 1mg glipizide ER 5 mg tablet, extended release 24 hr 2019-10 0 00:00: 00 No 1mg metformin 1,000 mg tablet 2019-10 0 00:00: 00 No 1mg Eliquis 5 mg tablet 2019-10 0 00:00: 00 No 1mg atorvastati n 40 mg tablet 2019-10 0 00:00: 00 No 1mg omeprazole 40 mg capsule,del ayed release 2019-10 0 00:00: 00 No 1mg midodrine 5 mg tablet 2019-10 0 00:00: 00 No 1mg glipizide ER 5 mg tablet, extended release 24 hr 2019-10 0 00:00: 00 No 1mg metformin 1,000 mg tablet 2019-10 0 00:00: 00 No 1mg Eliquis 5 mg tablet 2019-10 0 00:00: 00 No 1mg atorvastati n 40 mg tablet 2019-10 0 00:00: 00 No 1mg omeprazole 40 mg capsule,del ayed release 2019-10 0 00:00: 00 No 1mg midodrine 5 mg tablet 2019-10 0 00:00: 00 No 1mg glipizide ER 5 mg tablet, extended release 24 hr 2019-10 0 00:00: 00 No 1mg metformin 1,000 mg tablet 2019-10 0 00:00: 00 No 1mg Eliquis 5 mg tablet 2019-10 0 00:00: 00 No 1mg atorvastati n 40 mg tablet 2019-10 0 00:00: 00 No 1mg midodrine 5 mg tablet 2019-10 0 00:00: 00 Yes 1mg Toney Renner glipizide ER 5 mg tablet, extended release 24 hr 2019-10 0 00:00: 00 Yes 1mg Toney Renner metformin 1,000 mg tablet 2019-10 0 00:00: 00 Yes 1mg Toney Renner Eliquis 5 mg tablet 2019-10 0 00:00: 00 Yes 1mg Toney Renner atorvastati n 40 mg tablet 2019-10 0 00:00: 00 Yes 1mg Toney Renner omeprazole 40 mg capsule,del ayed release 2019-10 0 00:00: 00 Yes 1mg Toney Renner ProAir HFA 90 mcg/actuati on aerosol inhaler 06-08 00:00: 00 No 2mcg/ac tuation Vitamin B-1 100 mg tablet 06-08 00:00: 00 No 1mg midodrine 5 mg tablet 06-08 00:00: 00 No 1mg azithromyci n 250 mg tablet 06-08 00:00: 00 No 1mg enalapril maleate 20 mg tablet 06-08 00:00: 00 No 1mg Eliquis 5 mg tablet 06-08 00:00: 00 No 1mg metformin 1,000 mg tablet 06-08 00:00: 00 No 1mg glipizide ER 5 mg tablet, extended release 24 hr 06-08 00:00: 00 No 1mg prednisone 20 mg tablet 06-08 00:00: 00 No 1mg Vitamin C 500 mg tablet 06-08 00:00: 00 No 1mg benzonatate 100 mg capsule 06-08 00:00: 00 No 2mg ProAir HFA 90 mcg/actuati on aerosol inhaler 06-08 00:00: 00 No 2mcg/ac tuation Vitamin B-1 100 mg tablet 06-08 00:00: 00 No 1mg midodrine 5 mg tablet 06-08 00:00: 00 No 1mg azithromyci n 250 mg tablet 06-08 00:00: 00 No 1mg enalapril maleate 20 mg tablet 06-08 00:00: 00 No 1mg Eliquis 5 mg tablet 06-08 00:00: 00 No 1mg metformin 1,000 mg tablet 06-08 00:00: 00 No 1mg glipizide ER 5 mg tablet, extended release 24 hr 06-08 00:00: 00 No 1mg prednisone 20 mg tablet 06-08 00:00: 00 No 1mg Vitamin C 500 mg tablet 06-08 00:00: 00 No 1mg benzonatate 100 mg capsule 06-08 00:00: 00 No 2mg ProAir HFA 90 mcg/actuati on aerosol inhaler 06-08 00:00: 00 No 2mcg/ac tuation Vitamin B-1 100 mg tablet 06-08 00:00: 00 No 1mg midodrine 5 mg tablet 06-08 00:00: 00 No 1mg azithromyci n 250 mg tablet 06-08 00:00: 00 No 1mg enalapril maleate 20 mg tablet 06-08 00:00: 00 No 1mg Eliquis 5 mg tablet 06-08 00:00: 00 No 1mg metformin 1,000 mg tablet 06-08 00:00: 00 No 1mg glipizide ER 5 mg tablet, extended release 24 hr 06-08 00:00: 00 No 1mg prednisone 20 mg tablet 06-08 00:00: 00 No 1mg Vitamin C 500 mg tablet 06-08 00:00: 00 No 1mg benzonatate 100 mg capsule 06-08 00:00: 00 No 2mg ProAir HFA 90 mcg/actuati on aerosol inhaler 06-08 00:00: 00 No 2mcg/ac tuation Vitamin B-1 100 mg tablet 06-08 00:00: 00 No 1mg midodrine 5 mg tablet 06-08 00:00: 00 No 1mg azithromyci n 250 mg tablet 06-08 00:00: 00 No 1mg enalapril maleate 20 mg tablet 06-08 00:00: 00 No 1mg Eliquis 5 mg tablet 06-08 00:00: 00 No 1mg metformin 1,000 mg tablet 06-08 00:00: 00 No 1mg glipizide ER 5 mg tablet, extended release 24 hr 06-08 00:00: 00 No 1mg prednisone 20 mg tablet 06-08 00:00: 00 No 1mg Vitamin C 500 mg tablet 06-08 00:00: 00 No 1mg benzonatate 100 mg capsule 06-08 00:00: 00 No 2mg ProAir HFA 90 mcg/actuati on aerosol inhaler 06-08 00:00: 00 No 2mcg/ac tuation Vitamin B-1 100 mg tablet 06-08 00:00: 00 No 1mg midodrine 5 mg tablet 06-08 00:00: 00 No 1mg azithromyci n 250 mg tablet 06-08 00:00: 00 No 1mg enalapril maleate 20 mg tablet 06-08 00:00: 00 No 1mg Eliquis 5 mg tablet 06-08 00:00: 00 No 1mg metformin 1,000 mg tablet 06-08 00:00: 00 No 1mg glipizide ER 5 mg tablet, extended release 24 hr 06-08 00:00: 00 No 1mg prednisone 20 mg tablet 06-08 00:00: 00 No 1mg Vitamin C 500 mg tablet 06-08 00:00: 00 No 1mg benzonatate 100 mg capsule 06-08 00:00: 00 No 2mg ProAir HFA 90 mcg/actuati on aerosol inhaler 06-08 00:00: 00 No 2mcg/ac tuation Vitamin B-1 100 mg tablet 06-08 00:00: 00 No 1mg midodrine 5 mg tablet 06-08 00:00: 00 No 1mg azithromyci n 250 mg tablet 06-08 00:00: 00 No 1mg enalapril maleate 20 mg tablet 06-08 00:00: 00 No 1mg Eliquis 5 mg tablet 06-08 00:00: 00 No 1mg metformin 1,000 mg tablet 06-08 00:00: 00 No 1mg glipizide ER 5 mg tablet, extended release 24 hr 06-08 00:00: 00 No 1mg prednisone 20 mg tablet 06-08 00:00: 00 No 1mg Vitamin C 500 mg tablet 06-08 00:00: 00 No 1mg benzonatate 100 mg capsule 06-08 00:00: 00 No 2mg ProAir HFA 90 mcg/actuati on aerosol inhaler 06-08 00:00: 00 No 2mcg/ac tuation Vitamin B-1 100 mg tablet 06-08 00:00: 00 No 1mg midodrine 5 mg tablet 06-08 00:00: 00 No 1mg ProAir HFA 90 mcg/actuati on aerosol inhaler 06-08 00:00: 00 No 2mcg/ac tuation Vitamin B-1 100 mg tablet 06-08 00:00: 00 No 1mg azithromyci n 250 mg tablet 06-08 00:00: 00 No 1mg midodrine 5 mg tablet 06-08 00:00: 00 No 1mg azithromyci n 250 mg tablet 06-08 00:00: 00 No 1mg enalapril maleate 20 mg tablet 06-08 00:00: 00 No 1mg Eliquis 5 mg tablet 06-08 00:00: 00 No 1mg metformin 1,000 mg tablet 06-08 00:00: 00 No 1mg glipizide ER 5 mg tablet, extended release 24 hr 06-08 00:00: 00 No 1mg prednisone 20 mg tablet 06-08 00:00: 00 No 1mg Vitamin C 500 mg tablet 06-08 00:00: 00 No 1mg benzonatate 100 mg capsule 06-08 00:00: 00 No 2mg enalapril maleate 20 mg tablet 06-08 00:00: 00 No 1mg Eliquis 5 mg tablet 06-08 00:00: 00 No 1mg metformin 1,000 mg tablet 06-08 00:00: 00 No 1mg glipizide ER 5 mg tablet, extended release 24 hr 06-08 00:00: 00 No 1mg prednisone 20 mg tablet 06-08 00:00: 00 No 1mg Vitamin C 500 mg tablet 06-08 00:00: 00 No 1mg benzonatate 100 mg capsule 06-08 00:00: 00 No 2mg ProAir HFA 90 mcg/actuati on aerosol inhaler 06-08 00:00: 00 Yes 2mcg/ac tuation [facility] Vitamin B-1 100 mg tablet 06-08 00:00: 00 Yes 1mg [facility] midodrine 5 mg tablet 06-08 00:00: 00 Yes 1mg [facility]ner azithromyci n 250 mg tablet 06-08 00:00: 00 Yes 1mg [facility] enalapril maleate 20 mg tablet 06-08 00:00: 00 Yes 1mg [facility]ner Eliquis 5 mg tablet 06-08 00:00: 00 Yes 1mg [facility]ner metformin 1,000 mg tablet 06-08 00:00: 00 Yes 1mg [facility]ner glipizide ER 5 mg tablet, extended release 24 hr 06-08 00:00: 00 Yes 1mg [facility] Renner prednisone 20 mg tablet 06-08 00:00: 00 Yes 1mg [facility]ner Vitamin C 500 mg tablet 06-08 00:00: 00 Yes 1mg [facility]ner benzonatate 100 mg capsule 06-08 00:00: 00 Yes 2mg [facility]ner amoxicillin 500 mg tablet 05-15 00:00: 00 No 1mg amoxicillin 500 mg tablet 05-15 00:00: 00 No 1mg amoxicillin 500 mg tablet 05-15 00:00: 00 No 1mg amoxicillin 500 mg tablet 05-15 00:00: 00 No 1mg amoxicillin 500 mg tablet 05-15 00:00: 00 No 1mg amoxicillin 500 mg tablet 05-15 00:00: 00 No 1mg amoxicillin 500 mg tablet 05-15 00:00: 00 No 1mg amoxicillin 500 mg tablet 05-15 00:00: 00 No 1mg amoxicillin 500 mg tablet 05-15 00:00: 00 Yes 1mg [facility]ner dicyclomine 20 mg tablet 02-28 00:00: 00 No 1mg dicyclomine 20 mg tablet 02-28 00:00: 00 No 1mg dicyclomine 20 mg tablet 02-28 00:00: 00 No 1mg dicyclomine 20 mg tablet 02-28 00:00: 00 No 1mg dicyclomine 20 mg tablet 02-28 00:00: 00 No 1mg dicyclomine 20 mg tablet 02-28 00:00: 00 No 1mg dicyclomine 20 mg tablet 02-28 00:00: 00 No 1mg dicyclomine 20 mg tablet 02-28 00:00: 00 No 1mg dicyclomine 20 mg tablet 02-28 00:00: 00 Yes 1mg Toney Renner Aspirin Low Dose 81 mg tablet,merna yed release 02-27 00:00: 00 No 1mg enalapril maleate 20 mg tablet 02-27 00:00: 00 No 1mg amlodipine 5 mg tablet 02-27 00:00: 00 No 1mg glipizide ER 5 mg tablet, extended release 24 hr 02-27 00:00: 00 No 1mg metformin 1,000 mg tablet 02-27 00:00: 00 No 1mg atorvastati n 40 mg tablet 02-27 00:00: 00 No 1mg omeprazole 40 mg capsule,del ayed release 02-27 00:00: 00 No 1mg Aspirin Low Dose 81 mg tablet,merna yed release 02-27 00:00: 00 No 1mg enalapril maleate 20 mg tablet 02-27 00:00: 00 No 1mg amlodipine 5 mg tablet 02-27 00:00: 00 No 1mg glipizide ER 5 mg tablet, extended release 24 hr 02-27 00:00: 00 No 1mg metformin 1,000 mg tablet 02-27 00:00: 00 No 1mg atorvastati n 40 mg tablet 02-27 00:00: 00 No 1mg omeprazole 40 mg capsule,del ayed release 02-27 00:00: 00 No 1mg Aspirin Low Dose 81 mg tablet,merna yed release 02-27 00:00: 00 No 1mg enalapril maleate 20 mg tablet 02-27 00:00: 00 No 1mg amlodipine 5 mg tablet 02-27 00:00: 00 No 1mg glipizide ER 5 mg tablet, extended release 24 hr 02-27 00:00: 00 No 1mg metformin 1,000 mg tablet 02-27 00:00: 00 No 1mg atorvastati n 40 mg tablet 02-27 00:00: 00 No 1mg omeprazole 40 mg capsule,del ayed release 02-27 00:00: 00 No 1mg Aspirin Low Dose 81 mg tablet,merna yed release 02-27 00:00: 00 No 1mg enalapril maleate 20 mg tablet 02-27 00:00: 00 No 1mg amlodipine 5 mg tablet 02-27 00:00: 00 No 1mg glipizide ER 5 mg tablet, extended release 24 hr 02-27 00:00: 00 No 1mg metformin 1,000 mg tablet 02-27 00:00: 00 No 1mg atorvastati n 40 mg tablet 02-27 00:00: 00 No 1mg omeprazole 40 mg capsule,del ayed release 02-27 00:00: 00 No 1mg Aspirin Low Dose 81 mg tablet,merna yed release 02-27 00:00: 00 No 1mg enalapril maleate 20 mg tablet 02-27 00:00: 00 No 1mg amlodipine 5 mg tablet 02-27 00:00: 00 No 1mg glipizide ER 5 mg tablet, extended release 24 hr 02-27 00:00: 00 No 1mg metformin 1,000 mg tablet 02-27 00:00: 00 No 1mg atorvastati n 40 mg tablet 02-27 00:00: 00 No 1mg omeprazole 40 mg capsule,del ayed release 02-27 00:00: 00 No 1mg Aspirin Low Dose 81 mg tablet,merna yed release 02-27 00:00: 00 No 1mg enalapril maleate 20 mg tablet 02-27 00:00: 00 No 1mg amlodipine 5 mg tablet 02-27 00:00: 00 No 1mg glipizide ER 5 mg tablet, extended release 24 hr 02-27 00:00: 00 No 1mg metformin 1,000 mg tablet 02-27 00:00: 00 No 1mg atorvastati n 40 mg tablet 02-27 00:00: 00 No 1mg omeprazole 40 mg capsule,del ayed release 02-27 00:00: 00 No 1mg Aspirin Low Dose 81 mg tablet,merna yed release 02-27 00:00: 00 No 1mg enalapril maleate 20 mg tablet 02-27 00:00: 00 No 1mg amlodipine 5 mg tablet 02-27 00:00: 00 No 1mg glipizide ER 5 mg tablet, extended release 24 hr 02-27 00:00: 00 No 1mg metformin 1,000 mg tablet 02-27 00:00: 00 No 1mg atorvastati n 40 mg tablet 02-27 00:00: 00 No 1mg omeprazole 40 mg capsule,del ayed release 02-27 00:00: 00 No 1mg Aspirin Low Dose 81 mg tablet,merna yed release 02-27 00:00: 00 No 1mg enalapril maleate 20 mg tablet 02-27 00:00: 00 No 1mg amlodipine 5 mg tablet 02-27 00:00: 00 No 1mg glipizide ER 5 mg tablet, extended release 24 hr 02-27 00:00: 00 No 1mg metformin 1,000 mg tablet 02-27 00:00: 00 No 1mg atorvastati n 40 mg tablet 02-27 00:00: 00 No 1mg omeprazole 40 mg capsule,del ayed release 02-27 00:00: 00 No 1mg Aspirin Low Dose 81 mg tablet,merna yed release 02-27 00:00: 00 Yes 1mg Toney Renner enalapril maleate 20 mg tablet 02-27 00:00: 00 Yes 1mg Toney Renner amlodipine 5 mg tablet 02-27 00:00: 00 Yes 1mg Toney Renner glipizide ER 5 mg tablet, extended release 24 hr 02-27 00:00: 00 Yes 1mg Toney Renner metformin 1,000 mg tablet 02-27 00:00: 00 Yes 1mg Toney Renner atorvastati n 40 mg tablet 02-27 00:00: 00 Yes 1mg Toney Renner omeprazole 40 mg capsule,del ayed release 02-27 00:00: 00 Yes 1mg Toney Renner naproxen 500 mg tablet 02-02 00:00: 00 No 1mg naproxen 500 mg tablet 02-02 00:00: 00 No 1mg naproxen 500 mg tablet 02-02 00:00: 00 No 1mg naproxen 500 mg tablet 02-02 00:00: 00 No 1mg naproxen 500 mg tablet 02-02 00:00: 00 No 1mg naproxen 500 mg tablet 02-02 00:00: 00 No 1mg naproxen 500 mg tablet 02-02 00:00: 00 No 1mg naproxen 500 mg tablet 02-02 00:00: 00 No 1mg naproxen 500 mg tablet 02-02 00:00: 00 Yes 1mg Toney Renner polyethylen e glycol 3350 17 gram oral powder packet 2018-10 00:00: 00 No 1gram Aspirin Low Dose 81 mg tablet,merna yed release 2018-10 00:00: 00 No 1mg enalapril maleate 20 mg tablet 2018-10 00:00: 00 No 1mg amlodipine 5 mg tablet 2018-10 00:00: 00 No 1mg atorvastati n 40 mg tablet 2018-10 00:00: 00 No 1mg glipizide ER 5 mg tablet, extended release 24 hr 2018-10 00:00: 00 No 1mg cetirizine 10 mg disintegrat ing tablet 2018-10 00:00: 00 No 1mg citalopram 20 mg tablet 2018-10 00:00: 00 No 1mg metformin 1,000 mg tablet 2018-10 00:00: 00 No 1mg omeprazole 40 mg capsule,del ayed release 2018-10 00:00: 00 No 1mg gabapentin 100 mg capsule 2018-10 00:00: 00 No 1mg polyethylen e glycol 3350 17 gram oral powder packet 2018-10 00:00: 00 No 1gram Aspirin Low Dose 81 mg tablet,merna yed release 2018-10 00:00: 00 No 1mg enalapril maleate 20 mg tablet 2018-10 00:00: 00 No 1mg amlodipine 5 mg tablet 2018-10 00:00: 00 No 1mg atorvastati n 40 mg tablet 2018-10 00:00: 00 No 1mg glipizide ER 5 mg tablet, extended release 24 hr 2018-10 00:00: 00 No 1mg cetirizine 10 mg disintegrat ing tablet 2018-10 00:00: 00 No 1mg citalopram 20 mg tablet 2018-10 00:00: 00 No 1mg metformin 1,000 mg tablet 2018-10 00:00: 00 No 1mg omeprazole 40 mg capsule,del ayed release 2018-10 00:00: 00 No 1mg gabapentin 100 mg capsule 2018-10 00:00: 00 No 1mg polyethylen e glycol 3350 17 gram oral powder packet 2018-10 00:00: 00 No 1gram Aspirin Low Dose 81 mg tablet,merna yed release 2018-10 00:00: 00 No 1mg enalapril maleate 20 mg tablet 2018-10 00:00: 00 No 1mg amlodipine 5 mg tablet 2018-10 00:00: 00 No 1mg atorvastati n 40 mg tablet 2018-10 00:00: 00 No 1mg glipizide ER 5 mg tablet, extended release 24 hr 2018-10 00:00: 00 No 1mg cetirizine 10 mg disintegrat ing tablet 2018-10 00:00: 00 No 1mg citalopram 20 mg tablet 2018-10 00:00: 00 No 1mg metformin 1,000 mg tablet 2018-10 00:00: 00 No 1mg omeprazole 40 mg capsule,del ayed release 2018-10 00:00: 00 No 1mg gabapentin 100 mg capsule 2018-10 00:00: 00 No 1mg polyethylen e glycol 3350 17 gram oral powder packet 2018-10 00:00: 00 No 1gram Aspirin Low Dose 81 mg tablet,merna yed release 2018-10 00:00: 00 No 1mg enalapril maleate 20 mg tablet 2018-10 00:00: 00 No 1mg amlodipine 5 mg tablet 2018-10 00:00: 00 No 1mg atorvastati n 40 mg tablet 2018-10 00:00: 00 No 1mg glipizide ER 5 mg tablet, extended release 24 hr 2018-10 00:00: 00 No 1mg cetirizine 10 mg disintegrat ing tablet 2018-10 00:00: 00 No 1mg citalopram 20 mg tablet 2018-10 00:00: 00 No 1mg metformin 1,000 mg tablet 2018-10 00:00: 00 No 1mg omeprazole 40 mg capsule,del ayed release 2018-10 00:00: 00 No 1mg gabapentin 100 mg capsule 2018-10 00:00: 00 No 1mg polyethylen e glycol 3350 17 gram oral powder packet 2018-10 00:00: 00 No 1gram Aspirin Low Dose 81 mg tablet,merna yed release 2018-10 00:00: 00 No 1mg enalapril maleate 20 mg tablet 2018-10 00:00: 00 No 1mg amlodipine 5 mg tablet 2018-10 00:00: 00 No 1mg atorvastati n 40 mg tablet 2018-10 00:00: 00 No 1mg glipizide ER 5 mg tablet, extended release 24 hr 2018-10 00:00: 00 No 1mg cetirizine 10 mg disintegrat ing tablet 2018-10 00:00: 00 No 1mg citalopram 20 mg tablet 2018-10 00:00: 00 No 1mg metformin 1,000 mg tablet 2018-10 00:00: 00 No 1mg omeprazole 40 mg capsule,del ayed release 2018-10 00:00: 00 No 1mg gabapentin 100 mg capsule 2018-10 00:00: 00 No 1mg polyethylen e glycol 3350 17 gram oral powder packet 2018-10 00:00: 00 No 1gram Aspirin Low Dose 81 mg tablet,merna yed release 2018-10 00:00: 00 No 1mg enalapril maleate 20 mg tablet 2018-10 00:00: 00 No 1mg amlodipine 5 mg tablet 2018-10 00:00: 00 No 1mg atorvastati n 40 mg tablet 2018-10 00:00: 00 No 1mg glipizide ER 5 mg tablet, extended release 24 hr 2018-10 00:00: 00 No 1mg cetirizine 10 mg disintegrat ing tablet 2018-10 00:00: 00 No 1mg citalopram 20 mg tablet 2018-10 00:00: 00 No 1mg metformin 1,000 mg tablet 2018-10 00:00: 00 No 1mg omeprazole 40 mg capsule,del ayed release 2018-10 00:00: 00 No 1mg gabapentin 100 mg capsule 2018-10 00:00: 00 No 1mg polyethylen e glycol 3350 17 gram oral powder packet 2018-10 00:00: 00 No 1gram Aspirin Low Dose 81 mg tablet,merna yed release 2018-10 00:00: 00 No 1mg enalapril maleate 20 mg tablet 2018-10 00:00: 00 No 1mg amlodipine 5 mg tablet 2018-10 00:00: 00 No 1mg atorvastati n 40 mg tablet 2018-10 00:00: 00 No 1mg glipizide ER 5 mg tablet, extended release 24 hr 2018-10 00:00: 00 No 1mg cetirizine 10 mg disintegrat ing tablet 2018-10 00:00: 00 No 1mg citalopram 20 mg tablet 2018-10 00:00: 00 No 1mg metformin 1,000 mg tablet 2018-10 00:00: 00 No 1mg omeprazole 40 mg capsule,del ayed release 2018-10 00:00: 00 No 1mg gabapentin 100 mg capsule 2018-10 00:00: 00 No 1mg polyethylen e glycol 3350 17 gram oral powder packet 2018-10 00:00: 00 No 1gram Aspirin Low Dose 81 mg tablet,merna yed release 2018-10 00:00: 00 No 1mg enalapril maleate 20 mg tablet 2018-10 00:00: 00 No 1mg amlodipine 5 mg tablet 2018-10 00:00: 00 No 1mg atorvastati n 40 mg tablet 2018-10 00:00: 00 No 1mg glipizide ER 5 mg tablet, extended release 24 hr 2018-10 00:00: 00 No 1mg cetirizine 10 mg disintegrat ing tablet 2018-10 00:00: 00 No 1mg citalopram 20 mg tablet 2018-10 00:00: 00 No 1mg metformin 1,000 mg tablet 2018-10 00:00: 00 No 1mg omeprazole 40 mg capsule,del ayed release 2018-10 00:00: 00 No 1mg gabapentin 100 mg capsule 2018-10 00:00: 00 No 1mg polyethylen e glycol 3350 17 gram oral powder packet 2018-10 00:00: 00 Yes 1gram Toney Renner Aspirin Low Dose 81 mg tablet,merna yed release 2018-10 00:00: 00 Yes 1mg Toney Renner enalapril maleate 20 mg tablet 2018-10 00:00: 00 Yes 1mg Toney Renner amlodipine 5 mg tablet 2018-10 00:00: 00 Yes 1mg Toney Renner atorvastati n 40 mg tablet 2018-10 00:00: 00 Yes 1mg Toney Renner glipizide ER 5 mg tablet, extended release 24 hr 2018-10 00:00: 00 Yes 1mg Toney Renner cetirizine 10 mg disintegrat ing tablet 2018-10 00:00: 00 Yes 1mg Toney Renner citalopram 20 mg tablet 2018-10 00:00: 00 Yes 1mg Toney Renner metformin 1,000 mg tablet 2018-10 00:00: 00 Yes 1mg Toney Renner omeprazole 40 mg capsule,del ayed release 2018-10 00:00: 00 Yes 1mg Toney Renner gabapentin 100 mg capsule 2018-10 00:00: 00 Yes 1mg Toney Renner mupirocin 2 % topical ointment 2018-10 00:00: 00 No 1% mupirocin 2 % topical ointment 2018-10 00:00: 00 No 1% mupirocin 2 % topical ointment 2018-10 00:00: 00 No 1% mupirocin 2 % topical ointment 2018-10 00:00: 00 No 1% mupirocin 2 % topical ointment 2018-10 00:00: 00 No 1% mupirocin 2 % topical ointment 2018-10 00:00: 00 No 1% mupirocin 2 % topical ointment 2018-10 00:00: 00 No 1% mupirocin 2 % topical ointment 2018-10 00:00: 00 No 1% mupirocin 2 % topical ointment 2018-10 00:00: 00 Yes 1% Toney Renner glipizide ER 5 mg tablet, extended release 24 hr 2018-10 00:00: 00 No 1mg glipizide ER 5 mg tablet, extended release 24 hr 2018-10 00:00: 00 No 1mg glipizide ER 5 mg tablet, extended release 24 hr 2018-10 00:00: 00 No 1mg glipizide ER 5 mg tablet, extended release 24 hr 2018-10 00:00: 00 No 1mg glipizide ER 5 mg tablet, extended release 24 hr 2018-10 00:00: 00 No 1mg glipizide ER 5 mg tablet, extended release 24 hr 2018-10 00:00: 00 No 1mg glipizide ER 5 mg tablet, extended release 24 hr 2018-10 00:00: 00 No 1mg glipizide ER 5 mg tablet, extended release 24 hr 2018-10 00:00: 00 No 1mg glipizide ER 5 mg tablet, extended release 24 hr 2018-10 00:00: 00 Yes 1mg Toney Renner polyethylen e glycol 3350 17 gram oral powder packet 2018-10 00:00: 00 No 1gram citalopram 20 mg tablet 2018-10 00:00: 00 No 1mg glipizide ER 5 mg tablet, extended release 24 hr 2018-10 00:00: 00 No 1mg amlodipine 5 mg tablet 2018-10 00:00: 00 No 1mg enalapril maleate 20 mg tablet 2018-10 00:00: 00 No 1mg metformin 1,000 mg tablet 2018-10 00:00: 00 No 1mg tizanidine 2 mg tablet 2018-10 00:00: 00 No 1mg gabapentin 100 mg capsule 2018-10 00:00: 00 No 1mg polyethylen e glycol 3350 17 gram oral powder packet 2018-10 00:00: 00 No 1gram citalopram 20 mg tablet 2018-10 00:00: 00 No 1mg glipizide ER 5 mg tablet, extended release 24 hr 2018-10 00:00: 00 No 1mg amlodipine 5 mg tablet 2018-10 00:00: 00 No 1mg enalapril maleate 20 mg tablet 2018-10 00:00: 00 No 1mg metformin 1,000 mg tablet 2018-10 00:00: 00 No 1mg tizanidine 2 mg tablet 2018-10 00:00: 00 No 1mg gabapentin 100 mg capsule 2018-10 00:00: 00 No 1mg polyethylen e glycol 3350 17 gram oral powder packet 2018-10 00:00: 00 No 1gram citalopram 20 mg tablet 2018-10 00:00: 00 No 1mg glipizide ER 5 mg tablet, extended release 24 hr 2018-10 00:00: 00 No 1mg amlodipine 5 mg tablet 2018-10 00:00: 00 No 1mg enalapril maleate 20 mg tablet 2018-10 00:00: 00 No 1mg metformin 1,000 mg tablet 2018-10 00:00: 00 No 1mg tizanidine 2 mg tablet 2018-10 00:00: 00 No 1mg gabapentin 100 mg capsule 2018-10 00:00: 00 No 1mg polyethylen e glycol 3350 17 gram oral powder packet 2018-10 00:00: 00 No 1gram citalopram 20 mg tablet 2018-10 00:00: 00 No 1mg glipizide ER 5 mg tablet, extended release 24 hr 2018-10 00:00: 00 No 1mg amlodipine 5 mg tablet 2018-10 00:00: 00 No 1mg enalapril maleate 20 mg tablet 2018-10 00:00: 00 No 1mg metformin 1,000 mg tablet 2018-10 00:00: 00 No 1mg tizanidine 2 mg tablet 2018-10 00:00: 00 No 1mg gabapentin 100 mg capsule 2018-10 00:00: 00 No 1mg polyethylen e glycol 3350 17 gram oral powder packet 2018-10 00:00: 00 No 1gram citalopram 20 mg tablet 2018-10 00:00: 00 No 1mg glipizide ER 5 mg tablet, extended release 24 hr 2018-10 00:00: 00 No 1mg amlodipine 5 mg tablet 2018-10 00:00: 00 No 1mg enalapril maleate 20 mg tablet 2018-10 00:00: 00 No 1mg metformin 1,000 mg tablet 2018-10 00:00: 00 No 1mg tizanidine 2 mg tablet 2018-10 00:00: 00 No 1mg gabapentin 100 mg capsule 2018-10 00:00: 00 No 1mg polyethylen e glycol 3350 17 gram oral powder packet 2018-10 00:00: 00 No 1gram citalopram 20 mg tablet 2018-10 00:00: 00 No 1mg glipizide ER 5 mg tablet, extended release 24 hr 2018-10 00:00: 00 No 1mg amlodipine 5 mg tablet 2018-10 00:00: 00 No 1mg enalapril maleate 20 mg tablet 2018-10 00:00: 00 No 1mg metformin 1,000 mg tablet 2018-10 00:00: 00 No 1mg tizanidine 2 mg tablet 2018-10 00:00: 00 No 1mg gabapentin 100 mg capsule 2018-10 00:00: 00 No 1mg polyethylen e glycol 3350 17 gram oral powder packet 2018-10 00:00: 00 No 1gram citalopram 20 mg tablet 2018-10 00:00: 00 No 1mg glipizide ER 5 mg tablet, extended release 24 hr 2018-10 00:00: 00 No 1mg amlodipine 5 mg tablet 2018-10 00:00: 00 No 1mg enalapril maleate 20 mg tablet 2018-10 00:00: 00 No 1mg metformin 1,000 mg tablet 2018-10 00:00: 00 No 1mg tizanidine 2 mg tablet 2018-10 00:00: 00 No 1mg gabapentin 100 mg capsule 2018-10 00:00: 00 No 1mg polyethylen e glycol 3350 17 gram oral powder packet 2018-10 00:00: 00 No 1gram citalopram 20 mg tablet 2018-10 00:00: 00 No 1mg glipizide ER 5 mg tablet, extended release 24 hr 2018-10 00:00: 00 No 1mg amlodipine 5 mg tablet 2018-10 00:00: 00 No 1mg enalapril maleate 20 mg tablet 2018-10 00:00: 00 No 1mg metformin 1,000 mg tablet 2018-10 00:00: 00 No 1mg tizanidine 2 mg tablet 2018-10 00:00: 00 No 1mg gabapentin 100 mg capsule 2018-10 00:00: 00 No 1mg polyethylen e glycol 3350 17 gram oral powder packet 2018-10 00:00: 00 Yes 1gram Toney Renner citalopram 20 mg tablet 2018-10 00:00: 00 Yes 1mg Toney Renner glipizide ER 5 mg tablet, extended release 24 hr 2018-10 00:00: 00 Yes 1mg Toney Renner amlodipine 5 mg tablet 2018-10 00:00: 00 Yes 1mg Toney Renner enalapril maleate 20 mg tablet 2018-10 00:00: 00 Yes 1mg Toney Renner metformin 1,000 mg tablet 2018-10 00:00: 00 Yes 1mg Toney Renner tizanidine 2 mg tablet 2018-10 00:00: 00 Yes 1mg Toney Renner gabapentin 100 mg capsule 2018-10 00:00: 00 Yes 1mg Toney Renner citalopram 20 mg tablet 01-29 00:00: 00 No 1mg citalopram 20 mg tablet 01-29 00:00: 00 No 1mg citalopram 20 mg tablet 01-29 00:00: 00 No 1mg citalopram 20 mg tablet 01-29 00:00: 00 No 1mg citalopram 20 mg tablet 01-29 00:00: 00 No 1mg citalopram 20 mg tablet 01-29 00:00: 00 No 1mg citalopram 20 mg tablet 01-29 00:00: 00 No 1mg citalopram 20 mg tablet 01-29 00:00: 00 No 1mg citalopram 20 mg tablet 05 00:00: 00 Yes 1mg Toney Renner polyethylen e glycol 3350 17 gram oral powder packet 12-03 00:00: 00 No 1gram paroxetine 20 mg tablet 12-03 00:00: 00 No 1mg glipizide ER 5 mg tablet, extended release 24 hr 12-03 00:00: 00 No 1mg amlodipine 5 mg tablet 12-03 00:00: 00 No 1mg enalapril maleate 20 mg tablet 2 00:00: 00 No 1mg metformin 1,000 mg tablet 2 00:00: 00 No 1mg tizanidine 2 mg tablet 2 00:00: 00 No 1mg gabapentin 100 mg capsule 2 00:00: 00 No 1mg polyethylen e glycol 3350 17 gram oral powder packet 12-03 00:00: 00 No 1gram paroxetine 20 mg tablet 12-03 00:00: 00 No 1mg glipizide ER 5 mg tablet, extended release 24 hr 12-03 00:00: 00 No 1mg amlodipine 5 mg tablet 12-03 00:00: 00 No 1mg enalapril maleate 20 mg tablet 12-03 00:00: 00 No 1mg metformin 1,000 mg tablet 12-03 00:00: 00 No 1mg tizanidine 2 mg tablet 12-03 00:00: 00 No 1mg gabapentin 100 mg capsule 12-03 00:00: 00 No 1mg polyethylen e glycol 3350 17 gram oral powder packet 12-03 00:00: 00 No 1gram paroxetine 20 mg tablet 12-03 00:00: 00 No 1mg glipizide ER 5 mg tablet, extended release 24 hr 12-03 00:00: 00 No 1mg amlodipine 5 mg tablet 12-03 00:00: 00 No 1mg enalapril maleate 20 mg tablet 12-03 00:00: 00 No 1mg metformin 1,000 mg tablet 12-03 00:00: 00 No 1mg tizanidine 2 mg tablet 12-03 00:00: 00 No 1mg gabapentin 100 mg capsule 12-03 00:00: 00 No 1mg polyethylen e glycol 3350 17 gram oral powder packet 12-03 00:00: 00 No 1gram paroxetine 20 mg tablet 12-03 00:00: 00 No 1mg glipizide ER 5 mg tablet, extended release 24 hr 12-03 00:00: 00 No 1mg amlodipine 5 mg tablet 207 00:00: 00 No 1mg enalapril maleate 20 mg tablet 2 00:00: 00 No 1mg metformin 1,000 mg tablet 2 00:00: 00 No 1mg tizanidine 2 mg tablet 2 00:00: 00 No 1mg gabapentin 100 mg capsule 2 00:00: 00 No 1mg polyethylen e glycol 3350 17 gram oral powder packet 12-03 00:00: 00 No 1gram paroxetine 20 mg tablet 12-03 00:00: 00 No 1mg glipizide ER 5 mg tablet, extended release 24 hr 12-03 00:00: 00 No 1mg amlodipine 5 mg tablet 12-03 00:00: 00 No 1mg enalapril maleate 20 mg tablet 12-03 00:00: 00 No 1mg metformin 1,000 mg tablet 12-03 00:00: 00 No 1mg tizanidine 2 mg tablet 12-03 00:00: 00 No 1mg gabapentin 100 mg capsule 12-03 00:00: 00 No 1mg polyethylen e glycol 3350 17 gram oral powder packet 12-03 00:00: 00 No 1gram paroxetine 20 mg tablet 12-03 00:00: 00 No 1mg glipizide ER 5 mg tablet, extended release 24 hr 12-03 00:00: 00 No 1mg polyethylen e glycol 3350 17 gram oral powder packet 12-03 00:00: 00 No 1gram paroxetine 20 mg tablet 12-03 00:00: 00 No 1mg glipizide ER 5 mg tablet, extended release 24 hr 12-03 00:00: 00 No 1mg amlodipine 5 mg tablet 12-03 00:00: 00 No 1mg amlodipine 5 mg tablet 12-03 00:00: 00 No 1mg enalapril maleate 20 mg tablet 12-03 00:00: 00 No 1mg metformin 1,000 mg tablet 12-03 00:00: 00 No 1mg tizanidine 2 mg tablet 12-03 00:00: 00 No 1mg gabapentin 100 mg capsule 12-03 00:00: 00 No 1mg enalapril maleate 20 mg tablet 12-03 00:00: 00 No 1mg metformin 1,000 mg tablet 12-03 00:00: 00 No 1mg tizanidine 2 mg tablet 12-03 00:00: 00 No 1mg gabapentin 100 mg capsule 12-03 00:00: 00 No 1mg polyethylen e glycol 3350 17 gram oral powder packet 12-03 00:00: 00 No 1gram paroxetine 20 mg tablet 12-03 00:00: 00 No 1mg glipizide ER 5 mg tablet, extended release 24 hr 12-03 00:00: 00 No 1mg amlodipine 5 mg tablet 12-03 00:00: 00 No 1mg enalapril maleate 20 mg tablet 12-03 00:00: 00 No 1mg metformin 1,000 mg tablet 12-03 00:00: 00 No 1mg tizanidine 2 mg tablet 12-03 00:00: 00 No 1mg gabapentin 100 mg capsule 12-03 00:00: 00 No 1mg polyethylen e glycol 3350 17 gram oral powder packet 12-03 00:00: 00 Yes 1gram Toney Renner paroxetine 20 mg tablet 12-03 00:00: 00 Yes 1mg Toney Renner glipizide ER 5 mg tablet, extended release 24 hr 12-03 00:00: 00 Yes 1mg Toney Renner amlodipine 5 mg tablet 12-03 00:00: 00 Yes 1mg Toney Renner enalapril maleate 20 mg tablet 12-03 00:00: 00 Yes 1mg Toney Renner metformin 1,000 mg tablet 12-03 00:00: 00 Yes 1mg Toney Renner tizanidine 2 mg tablet 12-03 00:00: 00 Yes 1mg Toney Renner gabapentin 100 mg capsule 12-03 00:00: 00 Yes 1mg Toney Renner Zithromax Z-Alok 250 mg tablet 2017-10 00:00: 00 No mg Zithromax Z-Alok 250 mg tablet 2017-10 00:00: 00 No mg Zithromax Z-Alok 250 mg tablet 2017-10 00:00: 00 No mg Zithromax Z-Alok 250 mg tablet 2017-10 00:00: 00 No mg Zithromax Z-Alok 250 mg tablet 2017-10 00:00: 00 No mg Zithromax Z-Alok 250 mg tablet 2017-10 00:00: 00 No mg Zithromax Z-Alok 250 mg tablet 2017-10 00:00: 00 No mg Zithromax Z-Alok 250 mg tablet 2017-10 00:00: 00 No mg Zithromax Z-Alok 250 mg tablet 2017-10 00:00: 00 Yes mg Toney Renner polyethylen e glycol 3350 17 gram oral powder packet 2017-10 00:00: 00 No 1gram glipizide ER 5 mg tablet, extended release 24 hr 2017-10 00:00: 00 No 1mg amlodipine 5 mg tablet 2017-10 00:00: 00 No 1mg enalapril maleate 20 mg tablet 2017-10 00:00: 00 No 1mg paroxetine 20 mg tablet 2017-10 00:00: 00 No 1mg metformin 1,000 mg tablet 2017-10 00:00: 00 No 1mg tizanidine 2 mg tablet 2017-10 00:00: 00 No 1mg gabapentin 100 mg capsule 2017-10 00:00: 00 No 1mg polyethylen e glycol 3350 17 gram oral powder packet 2017-10 00:00: 00 No 1gram glipizide ER 5 mg tablet, extended release 24 hr 2017-10 00:00: 00 No 1mg amlodipine 5 mg tablet 2017-10 00:00: 00 No 1mg enalapril maleate 20 mg tablet 2017-10 00:00: 00 No 1mg paroxetine 20 mg tablet 2017-10 00:00: 00 No 1mg metformin 1,000 mg tablet 2017-10 00:00: 00 No 1mg tizanidine 2 mg tablet 2017-10 00:00: 00 No 1mg gabapentin 100 mg capsule 2017-10 00:00: 00 No 1mg polyethylen e glycol 3350 17 gram oral powder packet 2017-10 00:00: 00 No 1gram glipizide ER 5 mg tablet, extended release 24 hr 2017-10 00:00: 00 No 1mg amlodipine 5 mg tablet 2017-10 00:00: 00 No 1mg enalapril maleate 20 mg tablet 2017-10 00:00: 00 No 1mg paroxetine 20 mg tablet 2017-10 00:00: 00 No 1mg metformin 1,000 mg tablet 2017-10 00:00: 00 No 1mg tizanidine 2 mg tablet 2017-10 00:00: 00 No 1mg gabapentin 100 mg capsule 2017-10 00:00: 00 No 1mg polyethylen e glycol 3350 17 gram oral powder packet 2017-10 00:00: 00 No 1gram glipizide ER 5 mg tablet, extended release 24 hr 2017-10 00:00: 00 No 1mg amlodipine 5 mg tablet 2017-10 00:00: 00 No 1mg enalapril maleate 20 mg tablet 2017-10 00:00: 00 No 1mg paroxetine 20 mg tablet 2017-10 00:00: 00 No 1mg metformin 1,000 mg tablet 2017-10 00:00: 00 No 1mg tizanidine 2 mg tablet 2017-10 00:00: 00 No 1mg gabapentin 100 mg capsule 2017-10 00:00: 00 No 1mg polyethylen e glycol 3350 17 gram oral powder packet 2017-10 00:00: 00 No 1gram glipizide ER 5 mg tablet, extended release 24 hr 2017-10 00:00: 00 No 1mg amlodipine 5 mg tablet 2017-10 00:00: 00 No 1mg polyethylen e glycol 3350 17 gram oral powder packet 2017-10 00:00: 00 No 1gram glipizide ER 5 mg tablet, extended release 24 hr 2017-10 00:00: 00 No 1mg amlodipine 5 mg tablet 2017-10 00:00: 00 No 1mg enalapril maleate 20 mg tablet 2017-10 00:00: 00 No 1mg paroxetine 20 mg tablet 2017-10 00:00: 00 No 1mg metformin 1,000 mg tablet 2017-10 00:00: 00 No 1mg tizanidine 2 mg tablet 2017-10 00:00: 00 No 1mg gabapentin 100 mg capsule 2017-10 00:00: 00 No 1mg enalapril maleate 20 mg tablet 2017-10 00:00: 00 No 1mg paroxetine 20 mg tablet 2017-10 00:00: 00 No 1mg metformin 1,000 mg tablet 2017-10 00:00: 00 No 1mg tizanidine 2 mg tablet 2017-10 00:00: 00 No 1mg gabapentin 100 mg capsule 2017-10 00:00: 00 No 1mg polyethylen e glycol 3350 17 gram oral powder packet 2017-10 00:00: 00 No 1gram glipizide ER 5 mg tablet, extended release 24 hr 2017-10 00:00: 00 No 1mg amlodipine 5 mg tablet 2017-10 00:00: 00 No 1mg enalapril maleate 20 mg tablet 2017-10 00:00: 00 No 1mg paroxetine 20 mg tablet 2017-10 00:00: 00 No 1mg metformin 1,000 mg tablet 2017-10 00:00: 00 No 1mg tizanidine 2 mg tablet 2017-10 00:00: 00 No 1mg gabapentin 100 mg capsule 2017-10 00:00: 00 No 1mg polyethylen e glycol 3350 17 gram oral powder packet 2017-10 00:00: 00 No 1gram glipizide ER 5 mg tablet, extended release 24 hr 2017-10 00:00: 00 No 1mg amlodipine 5 mg tablet 2017-10 00:00: 00 No 1mg enalapril maleate 20 mg tablet 2017-10 00:00: 00 No 1mg paroxetine 20 mg tablet 2017-10 00:00: 00 No 1mg metformin 1,000 mg tablet 2017-10 00:00: 00 No 1mg tizanidine 2 mg tablet 2017-10 00:00: 00 No 1mg gabapentin 100 mg capsule 2017-10 00:00: 00 No 1mg polyethylen e glycol 3350 17 gram oral powder packet 2017-10 00:00: 00 Yes 1gram T[facility] Renner glipizide ER 5 mg tablet, extended release 24 hr 2017-10 00:00: 00 Yes 1mg Toney Renner amlodipine 5 mg tablet 2017-10 00:00: 00 Yes 1mg Toney Renner enalapril maleate 20 mg tablet 2017-10 00:00: 00 Yes 1mg Toney Renner paroxetine 20 mg tablet 2017-10 00:00: 00 Yes 1mg Toney Renner metformin 1,000 mg tablet 2017-10 00:00: 00 Yes 1mg Toney Renner tizanidine 2 mg tablet 2017-10 00:00: 00 Yes 1mg Toney Renner gabapentin 100 mg capsule 2017-10 00:00: 00 Yes 1mg Toney Renner tizanidine 2 mg tablet 05-13 00:00: 00 No 1mg tizanidine 2 mg tablet 05-13 00:00: 00 No 1mg tizanidine 2 mg tablet 05-13 00:00: 00 No 1mg tizanidine 2 mg tablet 05-13 00:00: 00 No 1mg tizanidine 2 mg tablet 05-13 00:00: 00 No 1mg tizanidine 2 mg tablet 05-13 00:00: 00 No 1mg tizanidine 2 mg tablet 05-13 00:00: 00 No 1mg tizanidine 2 mg tablet 05-13 00:00: 00 No 1mg tizanidine 2 mg tablet 05-13 00:00: 00 Yes 1mg Toney Renner glipizide ER 5 mg tablet, extended release 24 hr 05-05 00:00: 00 No 1mg glipizide ER 5 mg tablet, extended release 24 hr 05-05 00:00: 00 No 1mg glipizide ER 5 mg tablet, extended release 24 hr 05-05 00:00: 00 No 1mg glipizide ER 5 mg tablet, extended release 24 hr 05-05 00:00: 00 No 1mg glipizide ER 5 mg tablet, extended release 24 hr 05-05 00:00: 00 No 1mg glipizide ER 5 mg tablet, extended release 24 hr 05-05 00:00: 00 No 1mg glipizide ER 5 mg tablet, extended release 24 hr 05-05 00:00: 00 No 1mg glipizide ER 5 mg tablet, extended release 24 hr 05-05 00:00: 00 No 1mg glipizide ER 5 mg tablet, extended release 24 hr 05-05 00:00: 00 Yes 1mg Toney Renner polyethylen e glycol 3350 17 gram oral powder packet 04-27 00:00: 00 No 1gram amlodipine 5 mg tablet 04-27 00:00: 00 No 1mg enalapril maleate 20 mg tablet 04-27 00:00: 00 No 1mg paroxetine 20 mg tablet 04-27 00:00: 00 No 1mg metformin 1,000 mg tablet 04-27 00:00: 00 No 1mg gabapentin 100 mg capsule 04-27 00:00: 00 No 1mg polyethylen e glycol 3350 17 gram oral powder packet 04-27 00:00: 00 No 1gram amlodipine 5 mg tablet 04-27 00:00: 00 No 1mg enalapril maleate 20 mg tablet 04-27 00:00: 00 No 1mg paroxetine 20 mg tablet 04-27 00:00: 00 No 1mg metformin 1,000 mg tablet 04-27 00:00: 00 No 1mg gabapentin 100 mg capsule 04-27 00:00: 00 No 1mg polyethylen e glycol 3350 17 gram oral powder packet 04-27 00:00: 00 No 1gram amlodipine 5 mg tablet 04-27 00:00: 00 No 1mg enalapril maleate 20 mg tablet 04-27 00:00: 00 No 1mg paroxetine 20 mg tablet 04-27 00:00: 00 No 1mg metformin 1,000 mg tablet 04-27 00:00: 00 No 1mg gabapentin 100 mg capsule 04-27 00:00: 00 No 1mg polyethylen e glycol 3350 17 gram oral powder packet 04-27 00:00: 00 No 1gram amlodipine 5 mg tablet 04-27 00:00: 00 No 1mg enalapril maleate 20 mg tablet 04-27 00:00: 00 No 1mg paroxetine 20 mg tablet 04-27 00:00: 00 No 1mg metformin 1,000 mg tablet 04-27 00:00: 00 No 1mg gabapentin 100 mg capsule 04-27 00:00: 00 No 1mg polyethylen e glycol 3350 17 gram oral powder packet 04-27 00:00: 00 No 1gram amlodipine 5 mg tablet 04-27 00:00: 00 No 1mg enalapril maleate 20 mg tablet 04-27 00:00: 00 No 1mg paroxetine 20 mg tablet 04-27 00:00: 00 No 1mg metformin 1,000 mg tablet 04-27 00:00: 00 No 1mg gabapentin 100 mg capsule 04-27 00:00: 00 No 1mg polyethylen e glycol 3350 17 gram oral powder packet 04-27 00:00: 00 No 1gram amlodipine 5 mg tablet 04-27 00:00: 00 No 1mg enalapril maleate 20 mg tablet 04-27 00:00: 00 No 1mg paroxetine 20 mg tablet 04-27 00:00: 00 No 1mg metformin 1,000 mg tablet 04-27 00:00: 00 No 1mg gabapentin 100 mg capsule 04-27 00:00: 00 No 1mg polyethylen e glycol 3350 17 gram oral powder packet 04-27 00:00: 00 No 1gram amlodipine 5 mg tablet 04-27 00:00: 00 No 1mg enalapril maleate 20 mg tablet 04-27 00:00: 00 No 1mg paroxetine 20 mg tablet 04-27 00:00: 00 No 1mg metformin 1,000 mg tablet 04-27 00:00: 00 No 1mg gabapentin 100 mg capsule 04-27 00:00: 00 No 1mg polyethylen e glycol 3350 17 gram oral powder packet 04-27 00:00: 00 No 1gram amlodipine 5 mg tablet 04-27 00:00: 00 No 1mg enalapril maleate 20 mg tablet 04-27 00:00: 00 No 1mg paroxetine 20 mg tablet 04-27 00:00: 00 No 1mg metformin 1,000 mg tablet 04-27 00:00: 00 No 1mg gabapentin 100 mg capsule 04-27 00:00: 00 No 1mg polyethylen e glycol 3350 17 gram oral powder packet 04-27 00:00: 00 Yes 1gram T[facility] Renner amlodipine 5 mg tablet 04-27 00:00: 00 Yes 1mg Toney Renner enalapril maleate 20 mg tablet 04-27 00:00: 00 Yes 1mg Toney Renner paroxetine 20 mg tablet 04-27 00:00: 00 Yes 1mg Toney Renner metformin 1,000 mg tablet 04-27 00:00: 00 Yes 1mg Toney Renner gabapentin 100 mg capsule 04-27 00:00: 00 Yes 1mg Toney Renner enalapril maleate 20 mg tablet 04-06 00:00: 00 No 1mg metformin 1,000 mg tablet 04-06 00:00: 00 No 1mg gabapentin 100 mg capsule 04-06 00:00: 00 No 1mg enalapril maleate 20 mg tablet 04-06 00:00: 00 No 1mg metformin 1,000 mg tablet 04-06 00:00: 00 No 1mg gabapentin 100 mg capsule 04-06 00:00: 00 No 1mg enalapril maleate 20 mg tablet 04-06 00:00: 00 No 1mg metformin 1,000 mg tablet 04-06 00:00: 00 No 1mg gabapentin 100 mg capsule 04-06 00:00: 00 No 1mg enalapril maleate 20 mg tablet 04-06 00:00: 00 No 1mg metformin 1,000 mg tablet 04-06 00:00: 00 No 1mg gabapentin 100 mg capsule 04-06 00:00: 00 No 1mg enalapril maleate 20 mg tablet 04-06 00:00: 00 No 1mg metformin 1,000 mg tablet 04-06 00:00: 00 No 1mg gabapentin 100 mg capsule 04-06 00:00: 00 No 1mg enalapril maleate 20 mg tablet 04-06 00:00: 00 No 1mg metformin 1,000 mg tablet 04-06 00:00: 00 No 1mg gabapentin 100 mg capsule 04-06 00:00: 00 No 1mg enalapril maleate 20 mg tablet 04-06 00:00: 00 No 1mg metformin 1,000 mg tablet 04-06 00:00: 00 No 1mg gabapentin 100 mg capsule 04-06 00:00: 00 No 1mg enalapril maleate 20 mg tablet 04-06 00:00: 00 No 1mg metformin 1,000 mg tablet 04-06 00:00: 00 No 1mg gabapentin 100 mg capsule 04-06 00:00: 00 No 1mg enalapril maleate 20 mg tablet 04-06 00:00: 00 Yes 1mg T[facility] Renner metformin 1,000 mg tablet 04-06 00:00: 00 Yes 1mg Toney Renner gabapentin 100 mg capsule 04-06 00:00: 00 Yes 1mg Toney Renner Flagyl 500 mg tablet 01-16 00:00: 00 No 1mg Flagyl 500 mg tablet 01-16 00:00: 00 No 1mg Flagyl 500 mg tablet 01-16 00:00: 00 No 1mg Flagyl 500 mg tablet 01-16 00:00: 00 No 1mg Flagyl 500 mg tablet 01-16 00:00: 00 No 1mg Flagyl 500 mg tablet 01-16 00:00: 00 No 1mg Flagyl 500 mg tablet 01-16 00:00: 00 No 1mg Flagyl 500 mg tablet 01-16 00:00: 00 No 1mg Flagyl 500 mg tablet 01-16 00:00: 00 Yes 1mg Toney Cowan Zurdo polyethylen e glycol 3350 17 gram oral powder packet 12-29 00:00: 00 No 1gram metformin 1,000 mg tablet 12-29 00:00: 00 No 1mg polyethylen e glycol 3350 17 gram oral powder packet 12-29 00:00: 00 No 1gram metformin 1,000 mg tablet 12-29 00:00: 00 No 1mg polyethylen e glycol 3350 17 gram oral powder packet 12-29 00:00: 00 No 1gram metformin 1,000 mg tablet 12-29 00:00: 00 No 1mg polyethylen e glycol 3350 17 gram oral powder packet 12-29 00:00: 00 No 1gram metformin 1,000 mg tablet 12-29 00:00: 00 No 1mg polyethylen e glycol 3350 17 gram oral powder packet 12-29 00:00: 00 No 1gram metformin 1,000 mg tablet 12-29 00:00: 00 No 1mg polyethylen e glycol 3350 17 gram oral powder packet 12-29 00:00: 00 No 1gram metformin 1,000 mg tablet 12-29 00:00: 00 No 1mg polyethylen e glycol 3350 17 gram oral powder packet 12-29 00:00: 00 No 1gram metformin 1,000 mg tablet 12-29 00:00: 00 No 1mg polyethylen e glycol 3350 17 gram oral powder packet 12-29 00:00: 00 No 1gram metformin 1,000 mg tablet 12-29 00:00: 00 No 1mg polyethylen e glycol 3350 17 gram oral powder packet 12-29 00:00: 00 Yes 1gram T[facility] Renner metformin 1,000 mg tablet 12-29 00:00: 00 Yes 1mg Toney Renner clotrimazol e 1 % topical cream 11-26 00:00: 00 No 1% enalapril maleate 20 mg tablet 11-26 00:00: 00 No 1mg paroxetine 20 mg tablet 11-26 00:00: 00 No 1mg oxybutynin chloride 5 mg tablet 11-26 00:00: 00 No 1mg metformin 500 mg tablet 11-26 00:00: 00 No 1mg metformin 500 mg tablet 11-26 00:00: 00 No 2mg gabapentin 100 mg capsule 11-26 00:00: 00 No 1mg clotrimazol e 1 % topical cream 11-26 00:00: 00 No 1% enalapril maleate 20 mg tablet 11-26 00:00: 00 No 1mg paroxetine 20 mg tablet 11-26 00:00: 00 No 1mg oxybutynin chloride 5 mg tablet 11-26 00:00: 00 No 1mg metformin 500 mg tablet 11-26 00:00: 00 No 1mg clotrimazol e 1 % topical cream 11-26 00:00: 00 No 1% enalapril maleate 20 mg tablet 11-26 00:00: 00 No 1mg paroxetine 20 mg tablet 11-26 00:00: 00 No 1mg oxybutynin chloride 5 mg tablet 11-26 00:00: 00 No 1mg metformin 500 mg tablet 11-26 00:00: 00 No 1mg metformin 500 mg tablet 11-26 00:00: 00 No 2mg gabapentin 100 mg capsule 11-26 00:00: 00 No 1mg metformin 500 mg tablet 11-26 00:00: 00 No 2mg gabapentin 100 mg capsule 11-26 00:00: 00 No 1mg clotrimazol e 1 % topical cream 11-26 00:00: 00 No 1% enalapril maleate 20 mg tablet 11-26 00:00: 00 No 1mg paroxetine 20 mg tablet 11-26 00:00: 00 No 1mg oxybutynin chloride 5 mg tablet 11-26 00:00: 00 No 1mg metformin 500 mg tablet 11-26 00:00: 00 No 1mg metformin 500 mg tablet 11-26 00:00: 00 No 2mg gabapentin 100 mg capsule 11-26 00:00: 00 No 1mg clotrimazol e 1 % topical cream 11-26 00:00: 00 No 1% enalapril maleate 20 mg tablet 11-26 00:00: 00 No 1mg paroxetine 20 mg tablet 11-26 00:00: 00 No 1mg oxybutynin chloride 5 mg tablet 11-26 00:00: 00 No 1mg metformin 500 mg tablet 11-26 00:00: 00 No 1mg metformin 500 mg tablet 11-26 00:00: 00 No 2mg gabapentin 100 mg capsule 11-26 00:00: 00 No 1mg clotrimazol e 1 % topical cream 11-26 00:00: 00 No 1% enalapril maleate 20 mg tablet 11-26 00:00: 00 No 1mg paroxetine 20 mg tablet 11-26 00:00: 00 No 1mg oxybutynin chloride 5 mg tablet 11-26 00:00: 00 No 1mg metformin 500 mg tablet 11-26 00:00: 00 No 1mg metformin 500 mg tablet 11-26 00:00: 00 No 2mg gabapentin 100 mg capsule 11-26 00:00: 00 No 1mg clotrimazol e 1 % topical cream 11-26 00:00: 00 No 1% enalapril maleate 20 mg tablet 11-26 00:00: 00 No 1mg paroxetine 20 mg tablet 11-26 00:00: 00 No 1mg oxybutynin chloride 5 mg tablet 11-26 00:00: 00 No 1mg metformin 500 mg tablet 11-26 00:00: 00 No 1mg metformin 500 mg tablet 11-26 00:00: 00 No 2mg gabapentin 100 mg capsule 11-26 00:00: 00 No 1mg clotrimazol e 1 % topical cream 11-26 00:00: 00 No 1% enalapril maleate 20 mg tablet 11-26 00:00: 00 No 1mg paroxetine 20 mg tablet 11-26 00:00: 00 No 1mg oxybutynin chloride 5 mg tablet 11-26 00:00: 00 No 1mg metformin 500 mg tablet 11-26 00:00: 00 No 1mg metformin 500 mg tablet 11-26 00:00: 00 No 2mg gabapentin 100 mg capsule 11-26 00:00: 00 No 1mg clotrimazol e 1 % topical cream 11-26 00:00: 00 Yes 1% T[facility] Renner enalapril maleate 20 mg tablet 11-26 00:00: 00 Yes 1mg Toney Renner paroxetine 20 mg tablet 11-26 00:00: 00 Yes 1mg Toney Renner oxybutynin chloride 5 mg tablet 11-26 00:00: 00 Yes 1mg Toney Renner metformin 500 mg tablet 11-26 00:00: 00 Yes 1mg Toney Renner gabapentin 100 mg capsule 11-26 00:00: 00 Yes 1mg Toney Renner tramadol 50 mg tablet 11-14 00:00: 00 No 1mg gabapentin 100 mg capsule 11-14 00:00: 00 No 1mg triamcinolo ne acetonide 0.1 % topical ointment 11-14 00:00: 00 No 1% paroxetine 20 mg tablet 11-14 00:00: 00 No 1mg enalapril maleate 20 mg tablet 11-14 00:00: 00 No 1mg metformin 500 mg tablet 11-14 00:00: 00 No 1mg sulfamethox azole 800 mg-trimetho prim 160 mg tablet 11-14 00:00: 00 No 1mg tramadol 50 mg tablet 11-14 00:00: 00 No 1mg gabapentin 100 mg capsule 11-14 00:00: 00 No 1mg triamcinolo ne acetonide 0.1 % topical ointment 11-14 00:00: 00 No 1% paroxetine 20 mg tablet 11-14 00:00: 00 No 1mg enalapril maleate 20 mg tablet 11-14 00:00: 00 No 1mg metformin 500 mg tablet 11-14 00:00: 00 No 1mg sulfamethox azole 800 mg-trimetho prim 160 mg tablet 11-14 00:00: 00 No 1mg tramadol 50 mg tablet 11-14 00:00: 00 No 1mg gabapentin 100 mg capsule 11-14 00:00: 00 No 1mg triamcinolo ne acetonide 0.1 % topical ointment 11-14 00:00: 00 No 1% paroxetine 20 mg tablet 11-14 00:00: 00 No 1mg enalapril maleate 20 mg tablet 11-14 00:00: 00 No 1mg metformin 500 mg tablet 11-14 00:00: 00 No 1mg sulfamethox azole 800 mg-trimetho prim 160 mg tablet 11-14 00:00: 00 No 1mg tramadol 50 mg tablet 11-14 00:00: 00 No 1mg gabapentin 100 mg capsule 11-14 00:00: 00 No 1mg triamcinolo ne acetonide 0.1 % topical ointment 11-14 00:00: 00 No 1% paroxetine 20 mg tablet 11-14 00:00: 00 No 1mg enalapril maleate 20 mg tablet 11-14 00:00: 00 No 1mg metformin 500 mg tablet 11-14 00:00: 00 No 1mg sulfamethox azole 800 mg-trimetho prim 160 mg tablet 11-14 00:00: 00 No 1mg tramadol 50 mg tablet 11-14 00:00: 00 No 1mg gabapentin 100 mg capsule 11-14 00:00: 00 No 1mg triamcinolo ne acetonide 0.1 % topical ointment 11-14 00:00: 00 No 1% paroxetine 20 mg tablet 11-14 00:00: 00 No 1mg enalapril maleate 20 mg tablet 11-14 00:00: 00 No 1mg metformin 500 mg tablet 11-14 00:00: 00 No 1mg sulfamethox azole 800 mg-trimetho prim 160 mg tablet 11-14 00:00: 00 No 1mg tramadol 50 mg tablet 11-14 00:00: 00 No 1mg gabapentin 100 mg capsule 11-14 00:00: 00 No 1mg triamcinolo ne acetonide 0.1 % topical ointment 11-14 00:00: 00 No 1% paroxetine 20 mg tablet 11-14 00:00: 00 No 1mg enalapril maleate 20 mg tablet 11-14 00:00: 00 No 1mg metformin 500 mg tablet 11-14 00:00: 00 No 1mg sulfamethox azole 800 mg-trimetho prim 160 mg tablet 11-14 00:00: 00 No 1mg tramadol 50 mg tablet 11-14 00:00: 00 No 1mg gabapentin 100 mg capsule 11-14 00:00: 00 No 1mg triamcinolo ne acetonide 0.1 % topical ointment 11-14 00:00: 00 No 1% paroxetine 20 mg tablet 11-14 00:00: 00 No 1mg enalapril maleate 20 mg tablet 11-14 00:00: 00 No 1mg triamcinolo ne acetonide 0.1 % topical ointment 11-14 00:00: 00 No 1% paroxetine 20 mg tablet 11-14 00:00: 00 No 1mg enalapril maleate 20 mg tablet 11-14 00:00: 00 No 1mg metformin 500 mg tablet 11-14 00:00: 00 No 1mg sulfamethox azole 800 mg-trimetho prim 160 mg tablet 11-14 00:00: 00 No 1mg tramadol 50 mg tablet 11-14 00:00: 00 No 1mg gabapentin 100 mg capsule 11-14 00:00: 00 No 1mg metformin 500 mg tablet 11-14 00:00: 00 No 1mg sulfamethox azole 800 mg-trimetho prim 160 mg tablet 11-14 00:00: 00 No 1mg triamcinolo ne acetonide 0.1 % topical ointment 11-14 00:00: 00 Yes 1% Toney Renner paroxetine 20 mg tablet 11-14 00:00: 00 Yes 1mg Toney Renner enalapril maleate 20 mg tablet 11-14 00:00: 00 Yes 1mg Toney Renner metformin 500 mg tablet 11-14 00:00: 00 Yes 1mg Toney Renner sulfamethox azole 800 mg-trimetho prim 160 mg tablet 11-14 00:00: 00 Yes 1mg Toney Renner tramadol 50 mg tablet 11-14 00:00: 00 Yes 1mg Toney Renner gabapentin 100 mg capsule 11-14 00:00: 00 Yes 1mg Toney Renner Immunizations Ordered Immunization Name Filled Immunization Name Date Status Comments Source TDAP 2022-01-21 00:00:00 Completed [facility] TDAP 2022-01-21 00:00:00 Completed [facility] TDAP 2022-01-21 00:00:00 Completed [facility] TDAP 2022-01-21 00:00:00 Completed [facility] TDAP 2022-01-21 00:00:00 Completed [facility] TDAP 2022-01-21 00:00:00 Completed [facility] TDAP 2022-01-21 00:00:00 Completed [facility] influenza, seasonal vaccine, quadrivalent, adjuvanted, .5mL dose, preservative-free 2022-01-21 00:00:00 Completed pneumococcal conjugate P 2022-01-21 00:00:00 Completed Tdap 2022-01-21 00:00:00 Completed influenza, seasonal vaccine, quadrivalent, adjuvanted, .5mL dose, preservative-free 2022-01-21 00:00:00 Completed pneumococcal conjugate P 2022-01-21 00:00:00 Completed Tdap 2022-01-21 00:00:00 Completed influenza, seasonal vaccine, quadrivalent, adjuvanted, .5mL dose, preservative-free 2022-01-21 00:00:00 Completed pneumococcal conjugate P 2022-01-21 00:00:00 Completed Tdap 2022-01-21 00:00:00 Completed influenza, seasonal vaccine, quadrivalent, adjuvanted, .5mL dose, preservative-free 2022-01-21 00:00:00 Completed influenza, seasonal vaccine, quadrivalent, adjuvanted, .5mL dose, preservative-free 2022-01-21 00:00:00 Completed pneumococcal conjugate P 2022-01-21 00:00:00 Completed Tdap 2022-01-21 00:00:00 Completed pneumococcal conjugate P 2022-01-21 00:00:00 Completed Tdap 2022-01-21 00:00:00 Completed influenza, seasonal vaccine, quadrivalent, adjuvanted, .5mL dose, preservative-free 2022-01-21 00:00:00 Completed pneumococcal conjugate P 2022-01-21 00:00:00 Completed Tdap 2022-01-21 00:00:00 Completed influenza, seasonal vaccine, quadrivalent, adjuvanted, .5mL dose, preservative-free 2022-01-21 00:00:00 Completed pneumococcal conjugate P 2022-01-21 00:00:00 Completed Tdap 2022-01-21 00:00:00 Completed influenza, seasonal vaccine, quadrivalent, adjuvanted, .5mL dose, preservative-free 2022-01-21 00:00:00 Completed pneumococcal conjugate P 2022-01-21 00:00:00 Completed Tdap 2022-01-21 00:00:00 Completed influenza, seasonal vaccine, quadrivalent, adjuvanted, .5mL dose, preservative-free 2022-01-21 00:00:00 Completed pneumococcal conjugate P 2022-01-21 00:00:00 Completed Tdap 2022-01-21 00:00:00 Completed influenza, seasonal vaccine, quadrivalent, adjuvanted, .5mL dose, preservative-free influenza, seasonal vaccine, quadrivalent, adjuvanted, .5mL dose, preservative-free 2022-01-21 00:00:00 Completed [facility] pneumococcal conjugate P pneumococcal conjugate P 2022-01-21 00:00:00 Completed [facility] Renner Tdap Tdap 2022-01-21 00:00:00 Completed [facility] SARS-COV-2 COVID-19 VACCINE - (MODERNA) 2021-10-24 00:00:00 Completed [facility] SARS-COV-2 COVID-19 VACCINE - (MODERNA) 2021-10-24 00:00:00 Completed [facility] SARS-COV-2 COVID-19 VACCINE - (MODERNA) 2021-10-24 00:00:00 Completed [facility] SARS-COV-2 COVID-19 VACCINE - (MODERNA) 2021-10-24 00:00:00 Completed [facility] SARS-COV-2 COVID-19 VACCINE - (MODERNA) 2021-10-24 00:00:00 Completed [facility] SARS-COV-2 COVID-19 VACCINE - (MODERNA) 2021-10-24 00:00:00 Completed [facility] SARS-COV-2 COVID-19 VACCINE - (MODERNA) 2021-10-24 00:00:00 Completed [facility] Moderna COVID-19 Vaccine 2021-10-24 00:00:00 Completed Moderna COVID-19 Vaccine 2021-10-24 00:00:00 Completed Moderna COVID-19 Vaccine 2021-10-24 00:00:00 Completed Moderna COVID-19 Vaccine 2021-10-24 00:00:00 Completed Moderna COVID-19 Vaccine 2021-10-24 00:00:00 Completed Moderna COVID-19 Vaccine 2021-10-24 00:00:00 Completed Moderna COVID-19 Vaccine 2021-10-24 00:00:00 Completed Moderna COVID-19 Vaccine 2021-10-24 00:00:00 Completed Moderna COVID-19 Vaccine 2021-10-24 00:00:00 Completed Moderna COVID-19 Vaccine Moderna COVID-19 Vaccine 2021-10-24 00:00:00 Completed [facility]ner Hepa/Hepb Combo 2021-05-12 00:00:00 Completed [facility] Hepa/Hepb Combo 2021-05-12 00:00:00 Completed [facility] Hepa/Hepb Combo 2021-05-12 00:00:00 Completed [facility] Hepa/Hepb Combo 2021-05-12 00:00:00 Completed [facility] Hepa/Hepb Combo 2021-05-12 00:00:00 Completed [facility] Hepa/Hepb Combo 2021-05-12 00:00:00 Completed [facility] Hepa/Hepb Combo 2021-05-12 00:00:00 Completed [facility] Hep A-Hep B Hep A-Hep B 2021-05-12 00:00:00 Completed [facility] Renner SARS-COV-2 COVID-19 VACCINE - (MODERNA) 2021-02-06 00:00:00 Completed [facility] SARS-COV-2 COVID-19 VACCINE - (MODERNA) 2021-02-06 00:00:00 Completed [facility] SARS-COV-2 COVID-19 VACCINE - (MODERNA) 2021-02-06 00:00:00 Completed [facility] SARS-COV-2 COVID-19 VACCINE - (MODERNA) 2021-02-06 00:00:00 Completed [facility] SARS-COV-2 COVID-19 VACCINE - (MODERNA) 2021-02-06 00:00:00 Completed [facility] SARS-COV-2 COVID-19 VACCINE - (MODERNA) 2021-02-06 00:00:00 Completed [facility] SARS-COV-2 COVID-19 VACCINE - (MODERNA) 2021-02-06 00:00:00 Completed [facility] SARS-COV-2 COVID-19 VACCINE - (MODERNA) 2020-12-29 00:00:00 Completed [facility] SARS-COV-2 COVID-19 VACCINE - (MODERNA) 2020-12-29 00:00:00 Completed [facility] SARS-COV-2 COVID-19 VACCINE - (MODERNA) 2020-12-29 00:00:00 Completed [facility] SARS-COV-2 COVID-19 VACCINE - (MODERNA) 2020-12-29 00:00:00 Completed [facility] SARS-COV-2 COVID-19 VACCINE - (MODERNA) 2020-12-29 00:00:00 Completed [facility] SARS-COV-2 COVID-19 VACCINE - (MODERNA) 2020-12-29 00:00:00 Completed [facility] SARS-COV-2 COVID-19 VACCINE - (MODERNA) 2020-12-29 00:00:00 Completed [facility] Moderna COVID-19 Vaccine 2020-12-29 00:00:00 Completed Moderna COVID-19 Vaccine 2020-12-29 00:00:00 Completed Moderna COVID-19 Vaccine 2020-12-29 00:00:00 Completed Moderna COVID-19 Vaccine 2020-12-29 00:00:00 Completed Moderna COVID-19 Vaccine 2020-12-29 00:00:00 Completed Moderna COVID-19 Vaccine 2020-12-29 00:00:00 Completed Moderna COVID-19 Vaccine 2020-12-29 00:00:00 Completed Moderna COVID-19 Vaccine 2020-12-29 00:00:00 Completed Moderna COVID-19 Vaccine 2020-12-29 00:00:00 Completed Moderna COVID-19 Vaccine Moderna COVID-19 Vaccine 2020-12-29 00:00:00 Completed [facility] Ren[facility] TDAP Unknown Completed [facility] Hepa/Hepb Combo Unknown Completed [facility] SARS-COV-2 COVID-19 VACCINE - (MODERNA) Unknown Completed [facility] SARS-COV-2 COVID-19 VACCINE - (MODERNA) Unknown Completed [facility] SARS-COV-2 COVID-19 VACCINE - (MODERNA) Unknown Completed [facility] TDAP Unknown Completed [facility] Hepa/Hepb Combo Unknown Completed [facility] SARS-COV-2 COVID-19 VACCINE - (MODERNA) Unknown Completed [facility] SARS-COV-2 COVID-19 VACCINE - (MODERNA) Unknown Completed [facility] SARS-COV-2 COVID-19 VACCINE - (MODERNA) Unknown Completed [facility] TDAP Unknown Completed [facility] Hepa/Hepb Combo Unknown [facility] SARS-COV-2 COVID-19 VACCINE - (MODERNA) Unknown Completed [facility] SARS-COV-2 COVID-19 VACCINE - (MODERNA) Unknown Completed [facility] SARS-COV-2 COVID-19 VACCINE - (MODERNA) Unknown Completed [facility] TDAP Unknown Completed [facility] Hepa/Hepb Combo Unknown Com[facility] SARS-COV-2 COVID-19 VACCINE - (MODERNA) Unknown Completed [facility] SARS-COV-2 COVID-19 VACCINE - (MODERNA) Unknown Completed [facility] SARS-COV-2 COVID-19 VACCINE - (MODERNA) Unknown Completed [facility] TDAP Unknown Completed [facility] Hepa/Hepb Combo Unknown Completed [facility] SARS-COV-2 COVID-19 VACCINE - (MODERNA) Unknown Com[facility] [facility] [place] SARS-COV-2 COVID-19 VACCINE - (MODERNA) Unknown Completed [facility] [place] SARS-COV-2 COVID-19 VACCINE - (MODERNA) Unknown Completed [facility] [place] TDAP Unknown Completed [facility] Hepa/Hepb Combo Unknown Completed [facility] SARS-COV-2 COVID-19 VACCINE - (MODERNA) Unknown Completed [facility] [place] SARS-COV-2 COVID-19 VACCINE - (MODERNA) Unknown Completed [facility] [place] SARS-COV-2 COVID-19 VACCINE - (MODERNA) Unknown Completed [facility] [place] TDAP Unknown Completed [facility] Hepa/Hepb Combo Unknown Completed [facility] SARS-COV-2 COVID-19 VACCINE - (MODERNA) Unknown Completed [facility] [place] SARS-COV-2 COVID-19 VACCINE - (MODERNA) Unknown Completed [facility] [place] SARS-COV-2 COVID-19 VACCINE - (MODERNA) Unknown Completed [facility] [place] TDAP Unknown Completed [facility] Hepa/Hepb Combo Unknown Completed [facility] SARS-COV-2 COVID-19 VACCINE - (MODERNA) Unknown Completed [facility] SARS-COV-2 COVID-19 VACCINE - (MODERNA) Unknown Completed [facility] SARS-COV-2 COVID-19 VACCINE - (MODERNA) Unknown Completed [facility] Vital Signs Vital Name Observation Time Observation Value Comments S ource Systolic blood pressure 2024-01-02 19:07:00 137 mm[Hg] [facility] Diastolic blood pressure 2024-01-02 19:07:00 84 mm[Hg] [facility] Heart rate 2024-01-02 19:07:00 73 /min [facility] Respiratory rate 2024-01-02 19:07:00 18 /min [facility] Body weight 2024-01-02 19:07:00 75.751 kg [facility] BMI 2024-01-02 19:07:00 32.61 kg/m2 [facility] Oxygen saturation in Arterial blood by Pulse oximetry 2024-01-02 19:07:00 96 /min [facility] Systolic blood pressure 2023-09-05 13:24:00 157 mm[Hg] [facility] Diastolic blood pressure 2023-09-05 13:24:00 78 mm[Hg] [facility] Heart rate 2023-09-05 13:24:00 49 /min [facility] Body temperature 2023-09-05 13:24:00 36.11 Zully [facility] Respiratory rate 2023-09-05 13:24:00 17 /min [facility] Oxygen saturation in Arterial blood by Pulse oximetry 2023-09-05 13:24:00 96 /min [facility] Body weight 2023-09-05 09:34:00 75.479 kg [facility] BMI 2023-09-05 09:34:00 32.50 kg/m2 [facility] Body height 2023-09-02 02:18:00 152.4 cm [facility] Systolic blood pressure 2023-06-22 06:30:00 104 mm[Hg] [facility] Diastolic blood pressure 2023-06-22 06:30:00 68 mm[Hg] [facility] Heart rate 2023-06-22 06:30:00 57 /min [facility] Oxygen saturation in Arterial blood by Pulse oximetry 2023-06-22 06:30:00 93 /min [facility] Body temperature 2023-06-22 03:05:00 37.22 Zully [facility] Respiratory rate 2023-06-22 03:05:00 14 /min [facility] Body weight 2023-06-22 03:05:00 78.926 kg [facility] BMI 2023-06-22 03:05:00 33.98 kg/m2 [facility] Systolic blood pressure 2023-06-16 18:30:00 140 mm[Hg] [facility] Diastolic blood pressure 2023-06-16 18:30:00 73 mm[Hg] [facility] Heart rate 2023-06-16 18:30:00 62 /min [facility] Body temperature 2023-06-16 18:30:00 36.61 Zully [facility] Respiratory rate 2023-06-16 18:30:00 16 /min [facility] Body height 2023-06-16 18:30:00 152.4 cm [facility] Body weight 2023-06-16 18:30:00 79.017 kg [facility] BMI 2023-06-16 18:30:00 34.02 kg/m2 [facility] Oxygen saturation in Arterial blood by Pulse oximetry 2023-06-16 18:30:00 96 /min [facility] Systolic blood pressure 2023-06-02 02:19:00 169 mm[Hg] [facility] Diastolic blood pressure 2023-06-02 02:19:00 89 mm[Hg] [facility] Heart rate 2023-06-02 02:19:00 68 /min [facility] Body temperature 2023-06-02 02:19:00 37.06 Zully [facility] Respiratory rate 2023-06-02 02:19:00 20 /min [facility] Oxygen saturation in Arterial blood by Pulse oximetry 2023-06-02 02:19:00 97 /min [facility] Body weight 2023-06-01 23:21:00 78.926 kg [facility] BMI 2023-06-01 23:21:00 33.98 kg/m2 [facility] Systolic blood pressure 2023-03-12 05:00:00 159 mm[Hg] [facility] Diastolic blood pressure 2023-03-12 05:00:00 81 mm[Hg] [facility] Heart rate 2023-03-12 05:00:00 56 /min [facility] Oxygen saturation in Arterial blood by Pulse oximetry 2023-03-12 05:00:00 94 /min [facility] Respiratory rate 2023-03-12 04:00:00 16 /min Simultaneous filing. User may not have seen previous data. [facility] Body temperature 2023-03-12 00:21:00 36.78 Zully [facility] Body height 2023-03-12 00:21:00 152.4 cm [facility] Body weight 2023-03-12 00:21:00 77.111 kg [facility] BMI 2023-03-12 00:21:00 33.20 kg/m2 [facility] Systolic blood pressure 2022-12-19 19:24:00 138 mm[Hg] [facility] Diastolic blood pressure 2022-12-19 19:24:00 74 mm[Hg] [facility] Heart rate 2022-12-19 19:24:00 63 /min [facility] Body temperature 2022-12-19 19:24:00 37 Zully [facility] Body height 2022-12-19 19:24:00 152.4 cm [facility] Body weight 2022-12-19 19:24:00 78.563 kg [facility] BMI 2022-12-19 19:24:00 33.83 kg/m2 [facility] Oxygen saturation in Arterial blood by Pulse oximetry 2022-12-19 19:24:00 95 /min [facility] Systolic blood pressure 2022-11-21 18:00:00 125 mm[Hg] [facility] Diastolic blood pressure 2022-11-21 18:00:00 69 mm[Hg] [facility] Respiratory rate 2022-11-21 18:00:00 18 /min [facility] Oxygen saturation in Arterial blood by Pulse oximetry 2022-11-21 18:00:00 94 /min [facility] Heart rate 2022-11-21 15:07:00 54 /min [facility] Body weight 2022-11-21 12:00:00 77.565 kg [facility] BMI 2022-11-21 12:00:00 32.31 kg/m2 [facility] Systolic blood pressure 2022-11-21 15:07:00 123 mm[Hg] [facility] Diastolic blood pressure 2022-11-21 15:07:00 67 mm[Hg] [facility] Heart rate 2022-11-21 15:07:00 54 /min [facility] Respiratory rate 2022-11-21 15:07:00 16 /min [facility] Oxygen saturation in Arterial blood by Pulse oximetry 2022-11-21 15:07:00 97 /min [facility] Body weight 2022-11-21 12:00:00 77.565 kg [facility] BMI 2022-11-21 12:00:00 32.31 kg/m2 [facility] Systolic blood pressure 2022-11-07 19:33:00 132 mm[Hg] [facility] Diastolic blood pressure 2022-11-07 19:33:00 78 mm[Hg] [facility] Heart rate 2022-11-07 19:33:00 73 /min [facility] Respiratory rate 2022-11-07 19:33:00 19 /min [facility] Body height 2022-11-07 19:33:00 154.9 cm [facility] Body weight 2022-11-07 19:33:00 77.928 kg [facility] BMI 2022-11-07 19:33:00 32.46 kg/m2 [facility] Oxygen saturation in Arterial blood by Pulse oximetry 2022-11-07 19:33:00 98 /min [facility] Systolic blood pressure 2022-10-27 17:59:00 177 mm[Hg] [facility] Diastolic blood pressure 2022-10-27 17:59:00 86 mm[Hg] [facility] Heart rate 2022-10-27 17:59:00 99 /min [facility] Body temperature 2022-10-27 17:59:00 38 Zully [facility] Respiratory rate 2022-10-27 17:59:00 20 /min [facility] Body weight 2022-10-27 17:59:00 76.658 kg [facility] BMI 2022-10-27 17:59:00 31.93 kg/m2 [facility] Oxygen saturation in Arterial blood by Pulse oximetry 2022-10-27 17:59:00 99 /min [facility] Systolic blood pressure 2022-09-03 16:57:00 136 mm[Hg] [facility] Diastolic blood pressure 2022-09-03 16:57:00 76 mm[Hg] [facility] Heart rate 2022-09-03 16:57:00 62 /min [facility] Body temperature 2022-09-03 16:57:00 36.72 Zully [facility] Respiratory rate 2022-09-03 16:57:00 17 /min [facility] Body weight 2022-09-03 16:57:00 77.066 kg [facility] BMI 2022-09-03 16:57:00 32.10 kg/m2 [facility] Oxygen saturation in Arterial blood by Pulse oximetry 2022-09-03 16:57:00 97 /min [facility] Systolic blood pressure 2022-08-06 16:32:00 137 mm[Hg] [facility] Diastolic blood pressure 2022-08-06 16:32:00 85 mm[Hg] [facility] Heart rate 2022-08-06 16:32:00 81 /min [facility] Body temperature 2022-08-06 16:32:00 37 Zully [facility] Body height 2022-08-06 16:32:00 154.9 cm [facility] Body weight 2022-08-06 16:32:00 77.111 kg [facility] BMI 2022-08-06 16:32:00 32.12 kg/m2 [facility] Oxygen saturation in Arterial blood by Pulse oximetry 2022-08-06 16:32:00 95 /min [facility] Systolic blood pressure 2022-08-02 16:25:00 120 mm[Hg] [facility] Diastolic blood pressure 2022-08-02 16:25:00 55 mm[Hg] [facility] Heart rate 2022-08-02 16:25:00 67 /min [facility] Body temperature 2022-08-02 16:25:00 36 Zully [facility] Respiratory rate 2022-08-02 16:25:00 18 /min [facility] Oxygen saturation in Arterial blood by Pulse oximetry 2022-08-02 16:25:00 96 /min [facility] Body weight 2022-08-02 08:16:00 75.978 kg [facility] BMI 2022-08-02 08:16:00 31.65 kg/m2 [facility] Body height 2022-07-30 21:03:00 154.9 cm [facility] Systolic blood pressure 2021-11-05 21:52:00 136 mm[Hg] [facility] Diastolic blood pressure 2021-11-05 21:52:00 69 mm[Hg] [facility] Heart rate 2021-11-05 21:52:00 65 /min [facility] Body height 2021-11-05 21:52:00 152.4 cm [facility] Body weight 2021-11-05 21:52:00 81.647 kg [facility] BMI 2021-11-05 21:52:00 35.15 kg/m2 [facility] BP Systolic 2024-03-04 17:29:00 145 mm[Hg] Toney Renner BP Diastolic 2024-03-04 17:29:00 84 mm[Hg] Toney Renner Weight Measured 2024-03-04 17:29:00 166.80 pounds Toney Renner Height Measured 2024-03-04 17:29:00 60.00 inches Toney Renner Body Temperature 2024-03-04 17:29:00 97.80 degrees Toney Renner Heart Rate 2024-03-04 17:29:00 69.00 /min Toney F Zurdo Respiratory Rate 2024-03-04 17:29:00 16.00 /min Toney F Zurdo BP Systolic 2024-01-27 10:58:00 176 mm[Hg] Toney F Zurdo BP Diastolic 2024-01-27 10:58:00 87 mm[Hg] Toney F Zurdo Weight Measured 2024-01-27 10:58:00 169.80 pounds Toney F Zurdo Height Measured 2024-01-27 10:58:00 60.00 inches Toney F Zurdo Body Temperature 2024-01-27 10:58:00 98.10 degrees Toney F Zurdo Heart Rate 2024-01-27 10:58:00 66.00 /min Toney F Zurdo Respiratory Rate 2024-01-27 10:58:00 18.00 /min Toney F Zurdo BP Systolic 2024-01-27 10:04:00 176 mm[Hg] Toney F Zurdo BP Diastolic 2024-01-27 10:04:00 87 mm[Hg] Toney F Zurdo Weight Measured 2024-01-27 10:04:00 169.80 pounds Toney F Zurdo Height Measured 2024-01-27 10:04:00 60.00 inches Toney F Zurdo Body Temperature 2024-01-27 10:04:00 98.10 degrees Toney F Zurdo Heart Rate 2024-01-27 10:04:00 66.00 /min Toney F Zurdo Respiratory Rate 2024-01-27 10:04:00 18.00 /min Toney F Zurdo BP Systolic 2023-11-27 09:25:00 125 mm[Hg] Toney F Zurdo BP Diastolic 2023-11-27 09:25:00 70 mm[Hg] Toney F Zurdo Weight Measured 2023-11-27 09:25:00 164.00 pounds Toney F Zurdo Height Measured 2023-11-27 09:25:00 60.00 inches Toney F Zurdo Body Temperature 2023-11-27 09:25:00 98.00 degrees Toney F Zurdo Heart Rate 2023-11-27 09:25:00 64.00 /min Toney F Zurdo Respiratory Rate 2023-11-27 09:25:00 18.00 /min Toney F Zurdo BP Systolic 2023-11-10 14:10:00 Toney F Zurdo BP Diastolic 2023-11-10 14:10:00 Toney F Zurdo Weight Measured 2023-11-10 14:10:00 166.80 pounds Toney F Zurdo Height Measured 2023-11-10 14:10:00 60.00 inches Toney F Zurdo Body Temperature 2023-11-10 14:10:00 Toney F Zurdo Heart Rate 2023-11-10 14:10:00 Toney F Zurdo Respiratory Rate 2023-11-10 14:10:00 Toney F Zurdo BP Systolic 2023-11-05 09:44:00 139 mm[Hg] Toney F Zurdo BP Diastolic 2023-11-05 09:44:00 69 mm[Hg] Toney F Zurdo Weight Measured 2023-11-05 09:44:00 166.80 pounds Toney F Zurdo Height Measured 2023-11-05 09:44:00 60.00 inches Toney F Zurdo Body Temperature 2023-11-05 09:44:00 98.10 degrees Toney F Zurdo Heart Rate 2023-11-05 09:44:00 59.00 /min Toney F Zurdo Respiratory Rate 2023-11-05 09:44:00 19.00 /min Toney F Zurdo BP Systolic 2023-09-23 11:24:00 167 mm[Hg] Toney F Zurdo BP Diastolic 2023-09-23 11:24:00 81 mm[Hg] Toney F Zurdo Weight Measured 2023-09-23 11:24:00 167.60 pounds Toney F Zurdo Height Measured 2023-09-23 11:24:00 60.00 inches Toney F Zurdo Body Temperature 2023-09-23 11:24:00 98.10 degrees Toney F Zurdo Heart Rate 2023-09-23 11:24:00 61.00 /min Toney F Zurdo Respiratory Rate 2023-09-23 11:24:00 Toney F Zurdo BP Systolic 2023-08-18 10:06:00 133 mm[Hg] Toney F Zurdo BP Diastolic 2023-08-18 10:06:00 78 mm[Hg] Toney F Zurdo Weight Measured 2023-08-18 10:06:00 172.80 pounds Toney F Zurdo Height Measured 2023-08-18 10:06:00 60.00 inches Toney Renner Body Temperature 2023-08-18 10:06:00 97.70 degrees Toney Renner Heart Rate 2023-08-18 10:06:00 71.00 /min Toney F Zurdo Respiratory Rate 2023-08-18 10:06:00 Toney Renner BP Systolic 2023-07-16 10:52:00 147 mm[Hg] Toney F Zurdo BP Diastolic 2023-07-16 10:52:00 76 mm[Hg] Toney F Zurdo Weight Measured 2023-07-16 10:52:00 171.80 pounds Toney F Zurdo Height Measured 2023-07-16 10:52:00 60.00 inches Toney F Zurdo Body Temperature 2023-07-16 10:52:00 98.30 degrees Toney F Zurdo Heart Rate 2023-07-16 10:52:00 59.00 /min Toney F Zurdo Respiratory Rate 2023-07-16 10:52:00 16.00 /min Toney F Zurdo BP Systolic 2023-06-18 17:31:00 158 mm[Hg] Toney F Zurdo BP Diastolic 2023-06-18 17:31:00 86 mm[Hg] Toney F Zurdo Weight Measured 2023-06-18 17:31:00 174.40 pounds Toney Renner Height Measured 2023-06-18 17:31:00 60.00 inches Toney Renner Body Temperature 2023-06-18 17:31:00 99.30 degrees Toney Renner Heart Rate 2023-06-18 17:31:00 90.00 /min Toney Renner Respiratory Rate 2023-06-18 17:31:00 Toney Renner BP Systolic 2022-11-13 13:59:00 119 mm[Hg] BP Diastolic 2022-11-13 13:59:00 77 mm[Hg] Weight Measured 2022-11-13 13:59:00 174.60 pounds Height Measured 2022-11-13 13:59:00 60.00 inches Body Temperature 2022-11-13 13:59:00 97.60 degrees Heart Rate 2022-11-13 13:59:00 70.00 /min Respiratory Rate 2022-11-13 13:59:00 18.00 /min BP Systolic 2022-10-10 11:26:00 141 mm[Hg] BP Diastolic 2022-10-10 11:26:00 73 mm[Hg] Weight Measured 2022-10-10 11:26:00 175.00 pounds Height Measured 2022-10-10 11:26:00 60.00 inches Body Temperature 2022-10-10 11:26:00 97.60 degrees Heart Rate 2022-10-10 11:26:00 66.00 /min Respiratory Rate 2022-10-10 11:26:00 24.00 /min BP Systolic 2022-08-13 10:45:00 135 mm[Hg] BP Diastolic 2022-08-13 10:45:00 84 mm[Hg] Weight Measured 2022-08-13 10:45:00 172.60 pounds Height Measured 2022-08-13 10:45:00 60.00 inches Body Temperature 2022-08-13 10:45:00 98.10 degrees Heart Rate 2022-08-13 10:45:00 63.00 /min Respiratory Rate 2022-08-13 10:45:00 BP Systolic 2022-07-18 09:53:00 150 mm[Hg] BP Diastolic 2022-07-18 09:53:00 90 mm[Hg] Weight Measured 2022-07-18 09:53:00 172.80 pounds Height Measured 2022-07-18 09:53:00 60.00 inches Body Temperature 2022-07-18 09:53:00 98.40 degrees Heart Rate 2022-07-18 09:53:00 68.00 /min Respiratory Rate 2022-07-18 09:53:00 16.00 /min BP Systolic 2022-06-06 15:12:00 149 mm[Hg] BP Diastolic 2022-06-06 15:12:00 81 mm[Hg] Weight Measured 2022-06-06 15:12:00 175.40 pounds Height Measured 2022-06-06 15:12:00 60.00 inches Body Temperature 2022-06-06 15:12:00 98.50 degrees Heart Rate 2022-06-06 15:12:00 68.00 /min Respiratory Rate 2022-06-06 15:12:00 BP Systolic 2022-05-30 08:23:00 151 mm[Hg] BP Diastolic 2022-05-30 08:23:00 84 mm[Hg] Weight Measured 2022-05-30 08:23:00 173.40 pounds Height Measured 2022-05-30 08:23:00 60.00 inches Body Temperature 2022-05-30 08:23:00 98.10 degrees Heart Rate 2022-05-30 08:23:00 56.00 /min Respiratory Rate 2022-05-30 08:23:00 BP Systolic 2022-05-14 10:24:00 150 mm[Hg] BP Diastolic 2022-05-14 10:24:00 76 mm[Hg] Weight Measured 2022-05-14 10:24:00 173.40 pounds Height Measured 2022-05-14 10:24:00 60.00 inches Body Temperature 2022-05-14 10:24:00 98.30 degrees Heart Rate 2022-05-14 10:24:00 67.00 /min Respiratory Rate 2022-05-14 10:24:00 18.00 /min BP Systolic 2022-05-02 15:15:00 164 mm[Hg] BP Diastolic 2022-05-02 15:15:00 88 mm[Hg] Weight Measured 2022-05-02 15:15:00 176.60 pounds Height Measured 2022-05-02 15:15:00 60.00 inches Body Temperature 2022-05-02 15:15:00 97.80 degrees Heart Rate 2022-05-02 15:15:00 83.00 /min Respiratory Rate 2022-05-02 15:15:00 16.00 /min BP Systolic 2022-01-21 08:16:00 145 mm[Hg] BP Diastolic 2022-01-21 08:16:00 78 mm[Hg] Weight Measured 2022-01-21 08:16:00 174.20 pounds Height Measured 2022-01-21 08:16:00 60.00 inches Body Temperature 2022-01-21 08:16:00 98.00 degrees Heart Rate 2022-01-21 08:16:00 63.00 /min Respiratory Rate 2022-01-21 08:16:00 16.00 /min BP Systolic 2021-11-21 15:50:00 BP Diastolic 2021-11-21 15:50:00 Weight Measured 2021-11-21 15:50:00 181.00 pounds Height Measured 2021-11-21 15:50:00 60.00 inches Body Temperature 2021-11-21 15:50:00 Heart Rate 2021-11-21 15:50:00 Respiratory Rate 2021-11-21 15:50:00 BP Systolic 2021-10-08 14:34:00 144 mm[Hg] BP Diastolic 2021-10-08 14:34:00 76 mm[Hg] Weight Measured 2021-10-08 14:34:00 181.20 pounds Height Measured 2021-10-08 14:34:00 60.00 inches Body Temperature 2021-10-08 14:34:00 97.50 degrees Heart Rate 2021-10-08 14:34:00 71.00 /min Respiratory Rate 2021-10-08 14:34:00 16.00 /min BP Systolic 2021-07-24 13:26:00 129 mm[Hg] BP Diastolic 2021-07-24 13:26:00 81 mm[Hg] Weight Measured 2021-07-24 13:26:00 178.80 pounds Height Measured 2021-07-24 13:26:00 60.00 inches Body Temperature 2021-07-24 13:26:00 97.50 degrees Heart Rate 2021-07-24 13:26:00 63.00 /min Respiratory Rate 2021-07-24 13:26:00 17.00 /min BP Systolic 2021-06-05 14:00:00 142 mm[Hg] BP Diastolic 2021-06-05 14:00:00 75 mm[Hg] Weight Measured 2021-06-05 14:00:00 179.80 pounds Height Measured 2021-06-05 14:00:00 60.00 inches Body Temperature 2021-06-05 14:00:00 98.00 degrees Heart Rate 2021-06-05 14:00:00 66.00 /min Respiratory Rate 2021-06-05 14:00:00 16.00 /min BP Systolic 2021-05-23 17:07:00 147 mm[Hg] BP Diastolic 2021-05-23 17:07:00 87 mm[Hg] Weight Measured 2021-05-23 17:07:00 179.20 pounds Height Measured 2021-05-23 17:07:00 60.00 inches Body Temperature 2021-05-23 17:07:00 97.80 degrees Heart Rate 2021-05-23 17:07:00 69.00 /min Respiratory Rate 2021-05-23 17:07:00 16.00 /min BP Systolic 2021-02-06 09:53:00 152 mm[Hg] BP Diastolic 2021-02-06 09:53:00 88 mm[Hg] Weight Measured 2021-02-06 09:53:00 175.60 pounds Height Measured 2021-02-06 09:53:00 60.00 inches Body Temperature 2021-02-06 09:53:00 97.70 degrees Heart Rate 2021-02-06 09:53:00 64.00 /min Respiratory Rate 2021-02-06 09:53:00 16.00 /min BP Systolic 2020-11-03 10:10:00 169 mm[Hg] BP Diastolic 2020-11-03 10:10:00 84 mm[Hg] Weight Measured 2020-11-03 10:10:00 172.80 pounds Height Measured 2020-11-03 10:10:00 60.00 inches Body Temperature 2020-11-03 10:10:00 97.90 degrees Heart Rate 2020-11-03 10:10:00 61.00 /min Respiratory Rate 2020-11-03 10:10:00 16.00 /min BP Systolic 2020-07-27 11:20:00 136 mm[Hg] BP Diastolic 2020-07-27 11:20:00 88 mm[Hg] Weight Measured 2020-07-27 11:20:00 164.20 pounds Height Measured 2020-07-27 11:20:00 60.00 inches Body Temperature 2020-07-27 11:20:00 98.00 degrees Heart Rate 2020-07-27 11:20:00 68.00 /min Respiratory Rate 2020-07-27 11:20:00 16.00 /min Procedures Procedure Date / Time Performed Performing Clinician Source POCT GLUCOSE (AUTOMATED) 2023-09-05 13:49:00 William, D avid [facility] MAGNESIUM 2023-09-05 10:23:00 Kathi Harrell [facility] BASIC METABOLIC PANEL (NA, K, CL, CO2, GLUCOSE, BUN, CREATININE, CA) 2023-09-05 10:23:00 Kathi Harrell [facility] CBC WITH DIFF 2023-09-05 10:23:00 Kathi Harrell [facility] POCT GLUCOSE (AUTOMATED) 2023-09-05 03:10:00 Britney East [facility] POCT GLUCOSE (AUTOMATED) 2023-09-04 22:34:00 Britney East [facility] POCT GLUCOSE (AUTOMATED) 2023-09-04 18:35:00 Britney East [facility] POCT GLUCOSE (AUTOMATED) 2023-09-04 13:36:00 Britney East [facility] MAGNESIUM 2023-09-04 09:05:00 Kathi Harrell [facility] BASIC METABOLIC PANEL (NA, K, CL, CO2, GLUCOSE, BUN, CREATININE, CA) 2023-09-04 09:05:00 Kathi Harrell [facility] CBC WITH DIFF 2023-09-04 09:05:00 Kathi Harrell [facility] POCT GLUCOSE (AUTOMATED) 2023-09-04 02:31:00 Britney East [facility] POCT GLUCOSE (AUTOMATED) 2023-09-03 22:48:00 Britney East [facility] POCT GLUCOSE (AUTOMATED) 2023-09-03 17:49:00 Britney East [facility] POCT GLUCOSE (AUTOMATED) 2023-09-03 13:54:00 Britney East [facility] MAGNESIUM 2023-09-03 09:06:00 Myrtle Levy [facility] COMP. METABOLIC PANEL (54035) 2023-09-03 09:06:00 Myrtle Levy [facility] CBC WITH DIFF 2023-09-03 09:06:00 Myrtle Levy [facility] GLYCOSYLATED HEMOGLOBIN (A1C) 2023-09-03 09:06:00 aGreth Rowan [facility] POCT GLUCOSE (AUTOMATED) 2023-09-03 02:53:00 Britney East [facility] POCT GLUCOSE (AUTOMATED) 2023-09-02 22:06:00 Britney East [facility] POCT GLUCOSE (AUTOMATED) 2023-09-02 17:45:00 [facility] POCT GLUCOSE (AUTOMATED) 2023-09-02 15:00:00 Britney East [facility] LACTIC ACID WHOLE BLOOD 2023-09-02 01:30:00 Richard East [facility] CT ABDOMEN PELVIS W CONTRAST 2023-09-01 23:55:45 Maxi Goldberg [facility] HB ECG ROUTINE & RHYTHM STRIP 2023-09-01 22:38:41 Maxi Goldberg [facility] XR CHEST 1 VW 2023-09-01 22:38:00 Maxi Goldberg [facility] LACTIC ACID WHOLE BLOOD 2023-09-01 22:30:00 Raymond Goldberg [facility] BLOOD CULTURE SCREEN 2023-09-01 22:29:00 Makeda Goldberg [facility] TROPONIN I 2023-09-01 22:29:00 Maxi Goldberg [facility] COMP. METABOLIC PANEL ([id number]) 2023-09-01 22:29:00 Maxi Goldberg [facility] CBC WITH DIFF 2023-09-01 22:29:00 Maxi Goldberg [facility] URINALYSIS 2023-09-01 22:29:00 Maxi Goldberg [facility] COVID-19 (ID NOW RAPID TESTING) 2023-09-01 22:29:00 Maxi Goldberg [facility] LAB ONLY COVID INTERPRETATION 2023-09-01 22:29:00 Maxi Goldberg [facility] ASSIGNMENT OF BENEFITS 2023-09-01 22:11:31 Docto r Unassigned, Olin [facility] CONSENT/REFUSAL FOR DIAGNOSIS AND TREATMENT 2023-09-01 21:07:42 Doctor Unassigned, Olin [facility] CT ABDOMEN PELVIS W CONTRAST 2023-06-22 05:05:28 Christina Lou [facility] LIPASE 2023-06-22 03:45:00 [facility] TROPONIN I 2023-06-22 03:45:00 Christina [facility] COMP. METABOLIC PANEL (70331) 2023-06-22 03:45:00 Christina Lou [facility] CBC WITH DIFF 2023-06-22 03:45:00 Christina Lou [facility] URINALYSIS 2023-06-22 03:45:00 [facility] CONSENT/REFUSAL FOR DIAGNOSIS AND TREATMENT 2023-06-22 02:54:50 Doctor Unassigned, Olin [facility] EKG-12 LEAD 2023-06-02 03:24:46 Betsey Boss [facility] TROPONIN I 2023-06-02 02:08:00 Betsey Boss [facility] LIPASE 2023-06-02 00:25:00 Betsey Boss [facility] MAGNESIUM 2023-06-02 00:25:00 Betsey Boss [facility] TROPONIN I 2023-06-02 00:25:00 Betsey Boss [facility] COMP. METABOLIC PANEL ([id number]) 2023-06-02 00:25:00 Betsey Boss [facility] CBC WITH DIFF 2023-06-02 00:25:00 Betsey Boss [facility] N-TERMINAL PRO-BNP 2023-06-02 00:25:00 Betsey Boss [facility] CONSENT/REFUSAL FOR DIAGNOSIS AND TREATMENT 2023-06-02 00:05:52 Doctor Unassigned, Olin [facility] XR CHEST 1 VW 2023-06-01 23:47:16 Betsey Boss [facility] CONSENT/REFUSAL FOR DIAGNOSIS AND TREATMENT 2023-06-01 23:14:22 Doctor Unassigned, Olin [facility] AUTHORIZATION FOR RELEASE OF PHI 2023-05-11 05:01:00 Doctor Unassigned, Olin [facility] EKG-12 LEAD 2023-03-12 04:25:00 Solomon Millan [facility] TROPONIN I 2023-03-12 03:28:00 Solomon Millan [facility] CT ABDOMEN PELVIS W CONTRAST 2023-03-12 02:33:00 Solomon Millan [facility] XR CHEST 1 VW 2023-03-12 01:12:24 Solomon Millan [facility] CK (CREATINE KINASE) + MB 2023-03-12 00:34:00 Eren Millan [facility] LIPASE 2023-03-12 00:34:00 Solomon Millan [facility] TROPONIN I 2023-03-12 00:34:00 Solomon Millan [facility] COMP. METABOLIC PANEL (76069) 2023-03-12 00:34:00 Solomon Millan [facility] CBC WITH DIFF 2023-03-12 00:34:00 Solomon Millan [facility] URINALYSIS 2023-03-12 00:34:00 Solomon Millan [facility] N-TERMINAL PRO-BNP 2023-03-12 00:34:00 Solomon Millan [facility] NOTICE OF PRIVACY PRACTICES 2023-03-12 00:16:34 Doctor Unassigned, Olin [facility] CONSENT/REFUSAL FOR DIAGNOSIS AND TREATMENT 2023-03-12 00:16:08 Doctor Unassigned, Olin [facility] [place] [place] PATIENT FINANCIAL POLICY 2022-12-19 19:07:24 Doctor Unassigned, Olin [facility] CARDIAC CATHETERIZATION 2022-11-21 14:44:17 George Burnette [facility] CARDIAC CATHETERIZATION 2022-11-21 14:44:17 George Burnette [facility] CARDIAC CATHETERIZATION 2022-11-21 14:44:17 George Burnette [facility] CARDIAC CATHETERIZATION 2022-11-21 14:44:17 George Burnette [facility] BASIC METABOLIC PANEL (NA, K, CL, CO2, GLUCOSE, BUN, CREATININE, CA) 2022-11-21 12:30:00 Moira [facility] CBC WITH DIFF 2022-11-21 12:30:00 Moira [facility] PROTHROMBIN TIME / INR 2022-11-21 12:30:00 Moira [facility] BASIC METABOLIC PANEL (NA, K, CL, CO2, GLUCOSE, BUN, CREATININE, CA) 2022-11-21 12:30:00 Moira [facility] CBC WITH DIFF 2022-11-21 12:30:00 Moira [facility] PROTHROMBIN TIME / INR 2022-11-21 12:30:00 Moira [facility] OUTPATIENT CARDIAC CATHETERIZATION DOCUMENTS 2022-11-21 06:01:00 Doctor Unassigned, Olin [facility] CONSENT/REFUSAL FOR DIAGNOSIS AND TREATMENT 2022-11-07 18:46:45 Doctor Unassigned, Olin [facility] RAPID STREP SCREEN FOR GROUP A 2022-10-27 19:17:00 Maggi Calloway [facility] RAPID INFLUENZA A/B 2022-10-27 19:17:00 Maggi Calloway [facility] COVID-19 (ID NOW RAPID TESTING) 2022-10-27 19:17:00 Maggi Calloway [facility] CONSENT/REFUSAL FOR DIAGNOSIS AND TREATMENT 2022-10-27 17:51:23 Doctor Unassigned, Olin [facility] MYOCARDIUM PERFUSION STRESS AND REST 2022-08-08 18:09:00 Vasile [facility] MYOCARDIUM PERFUSION STRESS AND REST 2022-08-08 18:09:00 Vasile [facility] MYOCARDIUM PERFUSION STRESS AND REST 2022-08-08 18:09:00 Vasile [facility] MYOCARDIUM PERFUSION STRESS AND REST 2022-08-08 18:09:00 Vasile, Qiangjun [facility] POCT GLUCOSE (AUTOMATED) 2022-08-02 16:29:00 Britney East [facility] POCT GLUCOSE (AUTOMATED) 2022-08-02 12:37:00 Britney [facility] BASIC METABOLIC PANEL (NA, K, CL, CO2, GLUCOSE, BUN, CREATININE, CA) 2022-08-02 09:16:00 Kyle Barkley [facility] CBC WITH DIFF 2022-08-02 09:16:00 Kyle Barkley [facility] POCT GLUCOSE (AUTOMATED) 2022-08-01 21:34:00 Britney East [facility] POCT GLUCOSE (AUTOMATED) 2022-08-01 16:27:00 Britney [facility] POCT GLUCOSE (AUTOMATED) 2022-08-01 12:37:00 Britney East [facility] POCT GLUCOSE (AUTOMATED) 2022-08-01 01:03:00 Britney East [facility] POCT GLUCOSE (AUTOMATED) 2022-07-31 21:37:00 Britney [facility] TROPONIN I 2022-07-31 21:10:00 Destiney Avila [facility] POCT GLUCOSE (AUTOMATED) 2022-07-31 16:36:00 Britney [facility] TRANSTHORACIC ECHO (TTE) COMPLETE 2022-07-31 13:31:00 Arun [facility] POCT GLUCOSE (AUTOMATED) 2022-07-31 12:44:00 Britney East [facility] CT CHEST PULMONARY ANGIOGRAM 2022-07-31 12:09:33 Arun [facility] TROPONIN I 2022-07-31 08:53:00 Destiney Avila [facility] BASIC METABOLIC PANEL (NA, K, CL, CO2, GLUCOSE, BUN, CREATININE, CA) 2022-07-31 08:53:00 Destiney Avila [facility] CBC WITH DIFF 2022-07-31 08:53:00 Destiney Avila [facility] GLYCOSYLATED HEMOGLOBIN (A1C) 2022-07-31 05:25:00 Arun [facility] COVID-19 (ID NOW RAPID TESTING) 2022-07-31 05:22:00 Arun [facility] LAB ONLY COVID INTERPRETATION 2022-07-31 05:22:00 Arun [facility] TROPONIN I 2022-07-31 01:25:00 [facility] 2022-07-31 01:25:00 Arun [facility] XR CHEST 1 VW 2022-07-30 16:07:44 [facility]y [facility] MAGNESIUM 2022-07-30 15:53:00 Destiney Blair [facility] TROPONIN I 2022-07-30 15:53:00 Destiney Blair [facility] THYROID STIMULATING HORMONE 2022-07-30 15:53:00 Destiney Avila [facility] COMP. METABOLIC PANEL (76926) 2022-07-30 15:53:00 Destiney Blair [facility] LIPID PANEL (53559)(TOTAL CHOLESTEROL, TRIGLYCERIDES, HDL) 2022-07-30 15:53:00 Destiney Avila [facility] CBC WITH DIFF 2022-07-30 15:53:00 Destiney Blair [facility] PROTHROMBIN TIME / INR 2022-07-30 15:53:00 Pastora Blair [facility] ACTIVATED PARTIAL THRMPLAS RAYMOND 2022-07-30 15:53:00 Destiney Blair [facility] HB ECG ROUTINE & RHYTHM STRIP 2022-07-30 15:06:24 Destiney Blair [facility] CONSENT/REFUSAL FOR DIAGNOSIS AND TREATMENT 2022-07-30 14:45:47 Doctor Unassigned, Olin [facility] TRANSTHORACIC ECHO (TTE) COMPLETE 2021-11-05 21:52:10 Petrona Burnette [facility] EXTERNAL PROVIDER - ADC REFERRAL 2021-10-09 06:01:00 Doctor Unassigned, Olin [facility] [address] Ecg Routine Ecg W/least 12 Lds W/i r 2018-04-27 00:00:00 Toney Renner Plan of Care Planned Activity Planned Date Details Comments Source Goal Plan of Care Note [code = 76398-7] Goal Plan of Care Note [code = 96022-0] Goal Plan of Care Note [code = 29491-5] Goal Plan of Care Note [code = 00048-5] Goal Plan of Care Note [code = 92711-6] Goal Plan of Care Note [code = 26334-5] Goal Plan of Care Note [code = 29073-7] Goal Plan of Care Note [code = 07761-1] Goal Plan of Care Note [code = 63397-2] Goal Plan of Care Note [code = 59506-2] Goal Plan of Care Note [code = 48619-1] Goal Plan of Care Note [code = 13009-7] Goal Plan of Care Note [code = 93464-3] Goal Plan of Care Note [code = 36428-8] Goal Plan of Care Note [code = 00188-1] Goal Plan of Care Note [code = 88688-7] Goal Plan of Care Note [code = 38455-7] Goal Plan of Care Note [code = 82918-0] Goal Plan of Care Note [code = 92562-1] Goal Plan of Care Note [code = 70166-3] Goal Plan of Care Note [code = 50428-3] Goal Plan of Care Note [code = 28363-3] Goal Plan of Care Note [code = 51410-3] Goal Plan of Care Note [code = 57384-4] Goal Plan of Care Note [code = 16086-2] Goal Plan of Care Note [code = 48289-2] Goal Plan of Care Note [code = 41558-9] Goal Plan of Care Note [code = 05513-8] Goal Plan of Care Note [code = 49045-8] Goal Plan of Care Note [code = 10405-7] Goal Plan of Care Note [code = 65816-3] Goal Plan of Care Note [code = 91883-7] Goal Plan of Care Note [code = 94939-4] Goal Plan of Care Note [code = 14147-4] Goal Plan of Care Note [code = 44830-6] Goal Plan of Care Note [code = 39251-5] Goal Plan of Care Note [code = 20136-8] Goal Plan of Care Note [code = 93008-3] Goal Plan of Care Note [code = 71516-9] Goal Plan of Care Note [code = 49692-8] Goal Plan of Care Note [code = 51135-0] Goal Plan of Care Note [code = 36339-8] Goal Plan of Care Note [code = 53471-9] Goal Plan of Care Note [code = 05754-4] Goal Plan of Care Note [code = 02802-1] Goal Plan of Care Note [code = 00165-3] Goal Plan of Care Note [code = 36286-7] Goal Plan of Care Note [code = 89086-0] Goal Plan of Care Note [code = 63657-1] Goal Plan of Care Note [code = 26449-5] Goal Plan of Care Note [code = 85136-8] Goal Plan of Care Note [code = 93136-3] Goal Plan of Care Note [code = 68168-7] Goal Plan of Care Note [code = 43225-4] Goal Plan of Care Note [code = 79024-0] Goal Plan of Care Note [code = 34443-1] Goal Plan of Care Note [code = 65911-2] Goal Plan of Care Note [code = 77186-2] Goal Plan of Care Note [code = 11021-5] Goal Plan of Care Note [code = 50839-5] Goal Plan of Care Note [code = 19988-4] Goal Plan of Care Note [code = 38960-6] Goal Plan of Care Note [code = 71324-4] Goal Plan of Care Note [code = 32473-0] Goal Plan of Care Note [code = 39429-6] Goal Plan of Care Note [code = 33250-3] Goal Plan of Care Note [code = 23389-8] Goal Plan of Care Note [code = 17676-1] Goal Plan of Care Note [code = 60370-1] Goal Plan of Care Note [code = 59855-0] Goal Plan of Care Note [code = 80201-6] Goal Plan of Care Note [code = 95592-1] Goal Plan of Care Note [code = 09244-0] Goal Plan of Care Note [code = 94386-5] Goal Plan of Care Note [code = 17626-5] Goal Plan of Care Note [code = 48813-3] Goal Plan of Care Note [code = 64985-7] Goal Plan of Care Note [code = 46092-8] Goal Plan of Care Note [code = 97940-9] Goal Plan of Care Note [code = 40542-9] Goal Plan of Care Note [code = 91777-8] Goal Plan of Care Note [code = 41075-9] Goal Plan of Care Note [code = 83965-0] Goal Plan of Care Note [code = 98296-2] Goal Plan of Care Note [code = 30130-7] Goal Plan of Care Note [code = 52502-2] Goal Plan of Care Note [code = 24518-5] Goal Plan of Care Note [code = 95120-7] Goal Plan of Care Note [code = 19903-0] Goal Plan of Care Note [code = 66713-0] Goal Plan of Care Note [code = 95317-1] Goal Plan of Care Note [code = 72925-7] Goal Plan of Care Note [code = 77713-4] Goal Plan of Care Note [code = 89312-5] Goal Plan of Care Note [code = 48978-3] Goal Plan of Care Note [code = 23954-5] Goal Plan of Care Note [code = 50357-7] Goal Plan of Care Note [code = 73211-9] Goal Plan of Care Note [code = 82023-3] Goal Plan of Care Note [code = 21495-4] Goal Plan of Care Note [code = 56824-8] Goal Plan of Care Note [code = 30991-0] Goal Plan of Care Note [code = 05815-9] Goal Plan of Care Note [code = 20575-3] Goal Plan of Care Note [code = 31417-2] Goal Plan of Care Note [code = 39528-7] Goal Plan of Care Note [code = 96544-4] Goal Plan of Care Note [code = 52014-9] Goal Plan of Care Note [code = 30585-3] Goal Plan of Care Note [code = 22091-1] Goal Plan of Care Note [code = 74842-6] Goal Plan of Care Note [code = 32765-1] Goal Plan of Care Note [code = 57879-8] Goal Plan of Care Note [code = 36948-3] Goal Plan of Care Note [code = 56341-6] Goal Plan of Care Note [code = 31603-2] Goal Plan of Care Note [code = 41865-5] Goal Plan of Care Note [code = 61435-2] Goal Plan of Care Note [code = 71646-0] Goal Plan of Care Note [code = 09318-5] Goal Plan of Care Note [code = 23747-0] Goal Plan of Care Note [code = 51206-7] Goal Plan of Care Note [code = 59429-1] Goal Plan of Care Note [code = 89898-3] Goal Plan of Care Note [code = 12658-8] Goal Plan of Care Note [code = 82038-8] Goal Plan of Care Note [code = 36065-3] Goal Plan of Care Note [code = 57848-2] Goal Plan of Care Note [code = 82040-0] Goal Plan of Care Note [code = 87191-3] Goal Plan of Care Note [code = 11970-6] Goal Plan of Care Note [code = 92089-1] Goal Plan of Care Note [code = 58038-3] Goal Plan of Care Note [code = 25382-3] Goal Plan of Care Note [code = 18146-5] Goal Plan of Care Note [code = 66798-7] Goal Plan of Care Note [code = 67530-6] Goal Plan of Care Note [code = 25676-2] Goal Plan of Care Note [code = 28382-8] Goal Plan of Care Note [code = 04445-7] Goal Plan of Care Note [code = 05540-3] Goal Plan of Care Note [code = 11209-3] Goal Plan of Care Note [code = 60260-9] Goal Plan of Care Note [code = 12729-0] Goal Plan of Care Note [code = 48825-7] Goal Plan of Care Note [code = 79051-3] Goal Plan of Care Note [code = 26766-1] Goal Plan of Care Note [code = 35505-1] Goal Plan of Care Note [code = 20319-4] Goal Plan of Care Note [code = 54072-3] Goal Plan of Care Note [code = 82946-2] Goal Plan of Care Note [code = 25958-4] Goal Plan of Care Note [code = 61581-8] Goal Plan of Care Note [code = 59546-7] Goal Plan of Care Note [code = 15489-0] Goal Plan of Care Note [code = 37731-8] Goal Plan of Care Note [code = 55887-4] Goal Plan of Care Note [code = 39088-6] Goal Plan of Care Note [code = 93177-7] Goal Plan of Care Note [code = 09345-8] Goal Plan of Care Note [code = 96084-4] Goal Plan of Care Note [code = 82389-1] Goal Plan of Care Note [code = 53667-0] Goal Plan of Care Note [code = 61777-0] Goal Plan of Care Note [code = 63161-0] Goal Plan of Care Note [code = 66616-5] Goal Plan of Care Note [code = 52530-4] Goal Plan of Care Note [code = 28481-0] Goal Plan of Care Note [code = 47645-2] Goal Plan of Care Note [code = 98002-6] Goal Plan of Care Note [code = 21251-8] Goal Plan of Care Note [code = 63562-2] Goal Plan of Care Note [code = 78900-4] Goal Plan of Care Note [code = 90494-2] Goal Plan of Care Note [code = 71856-9] Goal Plan of Care Note [code = 01663-2] Goal Plan of Care Note [code = 51977-2] Goal Plan of Care Note [code = 20974-0] Goal Plan of Care Note [code = 13071-4] Goal Plan of Care Note [code = 02181-3] Goal Plan of Care Note [code = 64513-7] Goal Plan of Care Note [code = 22796-6] Goal Plan of Care Note [code = 89025-7] Goal Plan of Care Note [code = 62474-1] Goal Plan of Care Note [code = 86473-6] Goal Plan of Care Note [code = 70161-3] Goal Plan of Care Note [code = 42862-3] Goal Plan of Care Note [code = 87647-6] Goal Plan of Care Note [code = 84477-3] Goal Plan of Care Note [code = 16515-7] Goal Plan of Care Note [code = 94174-7] Goal Plan of Care Note [code = 30047-7] Goal Plan of Care Note [code = 39557-7] Goal Plan of Care Note [code = 86963-1] Goal Plan of Care Note [code = 89255-8] Goal Plan of Care Note [code = 15206-2] Goal Plan of Care Note [code = 92255-0] Goal Plan of Care Note [code = 91606-9] Goal Plan of Care Note [code = 93255-7] Goal Plan of Care Note [code = 90601-7] Goal Plan of Care Note [code = 75104-5] Goal Plan of Care Note [code = 85769-3] Goal Plan of Care Note [code = 50703-8] Goal Plan of Care Note [code = 69749-1] Goal Plan of Care Note [code = 45320-8] Goal Plan of Care Note [code = 99614-4] Goal Plan of Care Note [code = 32925-7] Goal Plan of Care Note [code = 51049-7] Goal Plan of Care Note [code = 17042-3] Goal Plan of Care Note [code = 08575-2] Goal Plan of Care Note [code = 54664-2] Goal Plan of Care Note [code = 15810-4] Goal Plan of Care Note [code = 36537-3] Goal Plan of Care Note [code = 32410-0] Goal Plan of Care Note [code = 95166-3] Goal Plan of Care Note [code = 04587-3] Goal Plan of Care Note [code = 99570-0] Goal Plan of Care Note [code = 57288-0] Goal Plan of Care Note [code = 42198-9] Goal Plan of Care Note [code = 42649-9] Goal Plan of Care Note [code = 25723-6] Goal Plan of Care Note [code = 37652-0] Goal Plan of Care Note [code = 09953-2] Goal Plan of Care Note [code = 98291-1] Goal Plan of Care Note [code = 66531-5] Goal Plan of Care Note [code = 00575-4] Goal Plan of Care Note [code = 47722-3] Goal Plan of Care Note [code = 06231-1] Goal Plan of Care Note [code = 30072-7] Goal Plan of Care Note [code = 45109-5] Goal Plan of Care Note [code = 12121-6] Goal Plan of Care Note [code = 34232-0] Goal Plan of Care Note [code = 58830-0] Goal Plan of Care Note [code = 72807-8] Goal Plan of Care Note [code = 09458-9] Goal Plan of Care Note [code = 27196-4] Goal Plan of Care Note [code = 52380-4] Goal Plan of Care Note [code = 71585-9] Goal Plan of Care Note [code = 31661-6] Goal Plan of Care Note [code = 41519-9] Goal Plan of Care Note [code = 57337-5] Goal Plan of Care Note [code = 87582-7] Goal Plan of Care Note [code = 47186-4] Goal Plan of Care Note [code = 83493-1] Goal Plan of Care Note [code = 25114-6] Goal Plan of Care Note [code = 26195-1] Goal Plan of Care Note [code = 55890-0] Goal Plan of Care Note [code = 01764-4] Goal Plan of Care Note [code = 78115-9] Goal Plan of Care Note [code = 60632-4] Goal Plan of Care Note [code = 85499-8] Goal Plan of Care Note [code = 43580-9] Goal Plan of Care Note [code = 83423-7] Goal Plan of Care Note [code = 11770-0] Goal Plan of Care Note [code = 86571-6] Goal Plan of Care Note [code = 88080-5] Goal Plan of Care Note [code = 36582-5] Goal Plan of Care Note [code = 18965-3] Goal Plan of Care Note [code = 33155-2] Goal Plan of Care Note [code = 86916-1] Goal Plan of Care Note [code = 04920-0] Goal Plan of Care Note [code = 60436-1] Goal Plan of Care Note [code = 89066-1] Goal Plan of Care Note [code = 59984-3] Goal Plan of Care Note [code = 45849-6] Goal Plan of Care Note [code = 08103-1] Goal Plan of Care Note [code = 86676-4] Goal Plan of Care Note [code = 29553-0] Goal Plan of Care Note [code = 09150-8] Goal Plan of Care Note [code = 21524-2] Goal Plan of Care Note [code = 51392-5] Goal Plan of Care Note [code = 78895-7] Goal Plan of Care Note [code = 50276-9] Goal Plan of Care Note [code = 80474-2] Goal Plan of Care Note [code = 77480-2] Goal Plan of Care Note [code = 26302-5] Goal Plan of Care Note [code = 08004-8] Goal Plan of Care Note [code = 78938-8] Goal Plan of Care Note [code = 27143-1] Goal Plan of Care Note [code = 91432-5] Goal Plan of Care Note [code = 02515-2] Goal Plan of Care Note [code = 24081-0] Goal Plan of Care Note [code = 21904-7] Goal Plan of Care Note [code = 40344-1] Goal Plan of Care Note [code = 74420-5] Goal Plan of Care Note [code = 22943-6] Goal Plan of Care Note [code = 70406-2] Goal Plan of Care Note [code = 93488-1] Goal Plan of Care Note [code = 64051-5] Goal Plan of Care Note [code = 66594-4] Goal Plan of Care Note [code = 15776-5] Goal Plan of Care Note [code = 32629-6] Goal Plan of Care Note [code = 49605-9] Goal Plan of Care Note [code = 47486-5] Goal Plan of Care Note [code = 76282-8] Goal Plan of Care Note [code = 56218-2] Goal Plan of Care Note [code = 96212-4] Goal Plan of Care Note [code = 46886-6] Goal Plan of Care Note [code = 83018-0] Goal Plan of Care Note [code = 09730-3] Goal Plan of Care Note [code = 41600-5] Goal Plan of Care Note [code = 69731-7] Goal Plan of Care Note [code = 24221-2] Goal Plan of Care Note [code = 18173-2] Goal Plan of Care Note [code = 11512-9] Goal Plan of Care Note [code = 52113-9] Goal Plan of Care Note [code = 72599-5] Goal Plan of Care Note [code = 94900-1] Goal Plan of Care Note [code = 94267-8] Goal Plan of Care Note [code = 72074-6] Goal Plan of Care Note [code = 23482-8] Goal Plan of Care Note [code = 61311-3] Goal Plan of Care Note [code = 47732-9] Goal Plan of Care Note [code = 06885-1] Goal Plan of Care Note [code = 53415-1] Goal Plan of Care Note [code = 09181-7] Goal Plan of Care Note [code = 31876-3] Goal Plan of Care Note [code = 30011-6] Goal Plan of Care Note [code = 66787-3] Goal Plan of Care Note [code = 83403-3] Goal Plan of Care Note [code = 26969-2] Goal Plan of Care Note [code = 18203-6] Goal Plan of Care Note [code = 56812-4] Goal Plan of Care Note [code = 03869-6] Goal Plan of Care Note [code = 95810-8] Goal Plan of Care Note [code = 46584-3] Goal Plan of Care Note [code = 43260-3] Goal Plan of Care Note [code = 30290-6] Goal Plan of Care Note [code = 89608-5] Goal Plan of Care Note [code = 17821-7] Goal Plan of Care Note [code = 32777-6] Goal Plan of Care Note [code = 41500-0] Goal Plan of Care Note [code = 61999-5] Goal Plan of Care Note [code = 28867-3] Goal Plan of Care Note [code = 54868-8] Goal Plan of Care Note [code = 45660-7] Goal Plan of Care Note [code = 88403-3] Goal Plan of Care Note [code = 29107-1] Goal Plan of Care Note [code = 31699-1] Goal Plan of Care Note [code = 61861-5] Goal Plan of Care Note [code = 08770-7] Goal Plan of Care Note [code = 22293-8] Goal Plan of Care Note [code = 01731-2] Goal Plan of Care Note [code = 86625-3] Goal Plan of Care Note [code = 89111-9] Goal Plan of Care Note [code = 95893-7] Goal Plan of Care Note [code = 63719-6] Goal Plan of Care Note [code = 94841-0] Goal Plan of Care Note [code = 21928-5] Goal Plan of Care Note [code = 33662-9] Goal Plan of Care Note [code = 60764-2] Goal Plan of Care Note [code = 65216-0] Goal Plan of Care Note [code = 00287-7] Goal Plan of Care Note [code = 73727-3] Goal Plan of Care Note [code = 48547-6] Goal Plan of Care Note [code = 53851-3] Goal Plan of Care Note [code = 64964-1] Goal Plan of Care Note [code = 99572-8] Goal Plan of Care Note [code = 54472-6] Goal Plan of Care Note [code = 23197-8] Goal Plan of Care Note [code = 91112-8] Goal Plan of Care Note [code = 54263-6] Goal Plan of Care Note [code = 19722-2] Goal Plan of Care Note [code = 56879-6] Goal Plan of Care Note [code = 08526-0] Goal Plan of Care Note [code = 76652-7] Goal Plan of Care Note [code = 14383-2] Goal Plan of Care Note [code = 29461-8] Goal Plan of Care Note [code = 58634-0] Goal Plan of Care Note [code = 73338-9] Goal Plan of Care Note [code = 50485-2] Goal Plan of Care Note [code = 46648-4] Goal Plan of Care Note [code = 10901-8] Goal Plan of Care Note [code = 04908-0] Goal Plan of Care Note [code = 27287-9] Goal Plan of Care Note [code = 50650-4] Goal Plan of Care Note [code = 91132-5] Goal Plan of Care Note [code = 97816-4] Goal Plan of Care Note [code = 38610-8] Goal Plan of Care Note [code = 49219-9] Goal Plan of Care Note [code = 42740-2] Goal Plan of Care Note [code = 81080-2] Goal Plan of Care Note [code = 85043-5] Goal Plan of Care Note [code = 06732-0] Goal Plan of Care Note [code = 59799-9] Goal Plan of Care Note [code = 57771-5] Goal Plan of Care Note [code = 80708-0] Goal Plan of Care Note [code = 83197-4] Goal Plan of Care Note [code = 58025-2] Goal Plan of Care Note [code = 84331-6] Goal Plan of Care Note [code = 10313-7] Goal Plan of Care Note [code = 18980-5] Goal Plan of Care Note [code = 07902-4] Goal Plan of Care Note [code = 21489-7] Goal Plan of Care Note [code = 07022-0] Goal Plan of Care Note [code = 36629-9] Goal Plan of Care Note [code = 03462-9] Goal Plan of Care Note [code = 21988-1] Goal Plan of Care Note [code = 49903-1] Goal Plan of Care Note [code = 69036-2] Goal Plan of Care Note [code = 46848-7] Goal Plan of Care Note [code = 23237-1] Goal Plan of Care Note [code = 30148-4] Goal Plan of Care Note [code = 65829-4] Goal Plan of Care Note [code = 33887-7] Goal Plan of Care Note [code = 74768-7] Goal Plan of Care Note [code = 48065-5] Goal Plan of Care Note [code = 30723-0] Goal Plan of Care Note [code = 20016-0] Goal Plan of Care Note [code = 67167-0] Goal Plan of Care Note [code = 26294-6] Goal Plan of Care Note [code = 27977-9] Goal Plan of Care Note [code = 76261-4] Goal Plan of Care Note [code = 78967-7] Goal Plan of Care Note [code = 84783-6] Goal Plan of Care Note [code = 44835-4] Goal Plan of Care Note [code = 49800-4] Goal Plan of Care Note [code = 06385-3] Goal Plan of Care Note [code = 15656-7] Goal Plan of Care Note [code = 52093-6] Goal Plan of Care Note [code = 80734-8] Goal Plan of Care Note [code = 00375-0] Goal Plan of Care Note [code = 30497-7] Goal Plan of Care Note [code = 50796-4] Goal Plan of Care Note [code = 28528-0] Goal Plan of Care Note [code = 85122-8] Goal Plan of Care Note [code = 88091-9] Goal Plan of Care Note [code = 01522-8] Goal Plan of Care Note [code = 46604-6] Goal Plan of Care Note [code = 17474-4] Goal Plan of Care Note [code = 15950-3] Goal Plan of Care Note [code = 39997-5] Goal Plan of Care Note [code = 64712-7] Goal Plan of Care Note [code = 53804-2] Goal Plan of Care Note [code = 26323-6] Goal Plan of Care Note [code = 39789-9] Goal Plan of Care Note [code = 39629-9] Goal Plan of Care Note [code = 29639-1] Goal Plan of Care Note [code = 17547-1] Goal Plan of Care Note [code = 73984-4] Goal Plan of Care Note [code = 80670-6] Goal Plan of Care Note [code = 16946-1] Goal Plan of Care Note [code = 17112-9] Goal Plan of Care Note [code = 88533-5] Goal Plan of Care Note [code = 98961-1] Goal Plan of Care Note [code = 68591-6] Goal Plan of Care Note [code = 38756-0] Goal Plan of Care Note [code = 23354-1] Goal Plan of Care Note [code = 63697-5] Goal Plan of Care Note [code = 68969-8] Goal Plan of Care Note [code = 03137-9] Goal Plan of Care Note [code = 05979-4] Goal Plan of Care Note [code = 11515-6] Goal Plan of Care Note [code = 76867-9] Goal Plan of Care Note [code = 57993-2] Goal Plan of Care Note [code = 25971-9] Goal Plan of Care Note [code = 63222-5] Goal Plan of Care Note [code = 63934-8] Goal Plan of Care Note [code = 84753-4] Goal Plan of Care Note [code = 97965-4] Goal Plan of Care Note [code = 83133-6] Goal Plan of Care Note [code = 54663-7] Goal Plan of Care Note [code = 04875-0] Goal Plan of Care Note [code = 47757-7] Goal Plan of Care Note [code = 93088-5] Goal Plan of Care Note [code = 57033-5] Encounters Start Date/Time End Date/Time Encounter Type Admission Type Attending [facility] Care Department Encounter ID Source 2024-04-14 08:49:42 2024-04-14 08:49:42 Outpatient [facility] [place] [id number] Toney Renner 2024-03-06 11:42:26 2024-03-06 11:42:26 Outpatient [facility] [id number] Toney Renner 2024-03-04 17:23:24 2024-03-04 17:23:24 Outpatient [facility] [id number] Toney Renner 2024-03-04 00:00:00 2024-03-04 00:00:00 Outpatient Visit [facility] [id number] Toney Renner 2024-02-02 10:23:11 2024-02-02 10:23:11 Outpatient [facility] [id number] Toney Cowan [place] 2024-01-28 10:30:00 2024-01-28 10:30:00 Outpatient PRETTY SANCHEZ HAIDER [facility] [id number] [facility] 2024-01-27 10:00:35 2024-01-27 10:00:35 Outpatient [place] [id number] Toney Cowan [place] 2024-01-02 13:40:00 2024-01-02 13:40:00 Office Visit Petrona Burnette [facility] 1.2.840.114 350.1.13.10 4.2.7.2.686 [id number] [facility] 2024-01-02 13:40:00 2024-01-02 13:26:56 Outpatient PETRONA LAIRD [facility] [id number] [facility] 2023-12-19 13:00:00 2023-12-19 13:00:00 Outpatient R PETRONA BURNETTE [facility] [id number] [facility] 2023-11-27 09:12:02 2023-11-27 09:12:02 Outpatient [facility] [id number] Toney Cowan [place] 2023-11-17 10:15:00 2023-11-17 10:15:00 Outpatient FABIAN MEJIA [facility] [id number] [facility] 2023-11-10 14:06:58 2023-11-10 14:06:58 Outpatient [facility] [id number] Toney Cowan [place] 2023-10-03 00:00:00 2023-10-03 00:00:00 Outpatient GC_GCBZW_Ka diyala_S [facility] [id number] [facility] 2023-09-25 10:00:00 2023-09-25 10:00:00 Outpatient R LANDEN PERSAUD CHOCKALINGA M [facility] [id number] [facility] 2023-09-23 11:17:46 2023-09-23 11:17:46 Outpatient [facility] [id number] Toney Camryn [place] 2023-09-22 11:07:05 2023-09-22 11:07:05 Outpatient [facility] [id number] Toney Cowan [place] 2023-09-11 10:20:00 2023-09-11 10:20:00 Outpatient R LANDEN PERSAUD CHOCKALINGA M [facility] [id number] [facility] 2023-09-08 00:00:00 2023-09-08 00:00:00 Transition of Care Abdelrahman Leone 1.2.840.114 350.1.13.10 4.2.7.2.686 [id number] [facility] 2023-09-01 15:37:00 2023-09-05 11:33:00 Inpatient KEISHA COVARRUBIAS [facility] [id number] [facility] 2023-09-01 15:37:00 2023-09-05 11:33:00 Hospital Encounter Maxi Goldberg David [facility] 1.2.840.114 350.1.13.10 4.2.7.2.686 [id number] [facility] 2023-09-05 00:00:00 2023-09-05 00:00:00 Outpatient GC_GCBZW_Ka diyala_S PRIV PRIV [id number] [facility] 2023-08-18 09:55:00 2023-08-18 09:55:00 Outpatient S[facility] [id number] [facility] Toney Renner 2023-08-08 00:00:00 2023-08-08 00:00:00 Outpatient GC_GCBZW_Ka diyala_S PRIV PRIV [id number] [facility] 2023-07-22 00:00:00 2023-07-22 00:00:00 Telephone Petrona Burnette [facility] 1..840.114 350.1.13.10 4.2.7.2.686 [id number] [facility] 2023-07-21 10:20:00 2023-07-21 23:59:00 Hospital Encounter Radiology [facility] 1..840.114 350.1.13.10 4.2.7.2.686 [id number] [facility] 2023-07-21 00:00:00 2023-07-21 23:59:00 Outpatient R RADIOLOGY [facility] [id number] [facility] 2023-07-16 10:44:58 2023-07-16 10:44:58 Outpatient [facility] [id number] Toney Renner 2023-07-12 00:00:00 2023-07-12 00:00:00 Outpatient GC_GCBZW_Ka diyala_S PRIV PRIV [id number] [facility] 2023-07-12 00:00:00 2023-07-12 00:00:00 Outpatient GC_GCBZW_Ka diyala_S PRIV PRIV [id number] [facility] 2023-06-25 00:00:00 2023-06-25 00:00:00 Outpatient GC_GCBZW_Ka diyala_S PRIV PRIV [id number] [facility] 2023-06-23 00:00:00 2023-06-23 00:00:00 Telephone George Burnette[address].840.114 350.1.13.10 4.2.7.2.686 [id number] [facility] 2023-06-21 22:13:00 2023-06-22 02:04:00 Emergency X CHRISTINA LOU [facility] ERT [id number] [facility] 2023-06-21 22:13:00 2023-06-22 02:04:00 Emergency Christina Lou [facility] 2.840.114 350.1.13.10 4.2.7.2.686 [id number] [facility] 2023-06-19 13:21:09 2023-06-19 13:21:09 Outpatient [facility] [id number] Toney Renner 2023-06-18 17:26:11 2023-06-18 17:26:11 Outpatient S[facility] [id number] Toney Renner 2023-06-17 00:00:00 2023-06-17 00:00:00 Telephone Vasile Bhaves[address]annia[address].840.114 350.1.13.10 4.2.7.2.686 [id number] [facility] 2023-06-16 13:40:00 2023-06-16 13:44:41 Outpatient R PETRONA BURNETTE [facility] [id number] [facility] 2023-06-16 13:40:00 2023-06-16 13:44:41 [facility] 1..840.114 350.1.13.10 4.2.7.2.686 [id number] [facility] 2023-06-01 18:27:00 2023-06-02 00:35:00 Emergency X BETSEY BOSS [facility] ERT [id number] [facility] 2023-06-01 18:27:00 2023-06-02 00:35:00 Emergency Betsey Boss [facility] 1..840.114 350.1.13.10 4.2.7.2.686 [id number] [facility] 2023-06-02 00:00:00 2023-06-02 00:00:00 Outpatient GC_GCBZW_Ka diyala_S PRIV PRIV [id number] [facility] 2023-05-10 01:24:00 2023-05-12 11:58:00 Inpatient ER SALLY HODGE [facility] [id number] [facility] 2023-05-11 00:00:00 2023-05-11 00:00:00 Orders Only Doctor Unassigned, Olin [facility] 1..840.114 350.1.13.10 4.2.7.2.686 [id number] [facility] 2023-05-09 21:32:00 2023-05-09 21:32:00 Emergency ER TANNER VAZ [facility] [id number] [facility] 2023-05-09 00:00:00 2023-05-09 00:00:00 Outpatient GC_GCBZW_Ka diotisa_S [facility] [id number] [facility] 2023-05-02 14:05:53 2023-05-02 14:05:53 Outpatient [facility] [id number] Toney Renner 2023-04-28 10:00:00 2023-04-28 10:00:00 Outpatient SHANE AGUERO [facility] [id number] [facility] 2023-03-23 09:38:00 2023-03-23 13:02:00 Emergency ER MONA MOSS [facility] [id number] [facility] 2023-03-23 09:38:00 2023-03-23 13:02:00 emergency [id number] 2381-551e -843c-ca8 a8819s2qd 363p2860-64 81-551e-843 c-ch3b3114s 5eb [id number] 2023-03-11 19:23:00 2023-03-12 00:12:00 Emergency X SOLOMON MILLAN [facility] ERT [id number] [facility] 2023-03-11 19:23:00 2023-03-12 00:12:00 Emergency EmmanuelSolomon rojas [facility] 1.2.840.114 350.1.13.10 4.2.7.2.686 [id number] [facility] 2023-02-20 09:20:00 2023-02-20 09:20:00 Outpatient ALICIA MENDOZA [facility] [id number] [facility] 2023-01-23 15:27:35 2023-01-23 15:27:35 Outpatient [facility] [id number] Toney Renner 2023-01-23 08:40:00 2023-01-23 08:40:00 Outpatient ALICIA MENDOZA [facility] [id number] [facility] 2022-12-19 13:20:00 2022-12-19 13:49:10 Outpatient R VASILE [facility] [id number] [facility] 2022-12-19 13:20:00 2022-12-19 13:49:10 Office Visit [facility]ile [facility] 1.2840.114 350.1.13.10 4.2.7.2.686 [id number] [facility] 2022-12-19 00:00:00 2022-12-19 00:00:00 Orders Only Doctor Unassigned, Olin [facility] 1.20.114 350.1.13.10 4.2.7.2.686 [id number] [facility] 2022-11-21 06:14:00 2022-11-21 12:27:00 Outpatient R VASILE [facility] [id number] [facility] 2022-11-21 06:14:00 2022-11-21 12:27:00 Hospital Encounter [facility] 1.0.114 350.1.13.10 4.2.7.2.686 [id number] [facility] 2022-11-21 07:10:00 2022-11-21 09:10:00 Surgery Pretty Pizarro [facility] 1.2840.114 350.1.13.10 4.2.7.2.686 [id number] [facility] 2022-11-21 00:00:00 2022-11-21 00:00:00 Orders Only Doctor Unassigned, Olin [facility] 1.2840.114 350.1.13.10 4.2.7.2.686 [id number] [facility] 2022-11-13 13:55:43 2022-11-13 13:55:43 Outpatient [facility] [id number] Toney Renner 2022-11-13 00:00:00 2022-11-13 00:00:00 Outpatient Visit ln26z8n8- 0f4s-9e99 -z746-656 dw247a3j2 [id number] ju79d2c5-2 l0h-5f33-k 072-805ce4 03f8b5 2022-11-07 13:40:00 2022-11-07 13:48:05 Outpatient R VASILE [facility] [id number] [facility] 2022-11-07 13:40:00 2022-11-07 13:48:05 Office Visit Vasile [facility] 1.2.840.114 350.1.13.10 4.2.7.2.686 [id number] [facility] 2022-11-07 00:00:00 2022-11-07 00:00:00 Orders Only Doctor Unassigned, Olin [facility] 1.2.840.114 350.1.13.10 4.2.7.2.686 [id number] [facility] 2022-10-29 13:00:00 2022-10-29 13:00:00 [facility] [id number] [facility] 2022-10-28 00:00:00 2022-10-28 00:00:00 Telephone Unassigned, Cath/Ep [facility] 1.2.840.114 350.1.13.10 4.2.7.2.686 [id number] [facility] 2022-10-27 11:59:00 2022-10-27 14:26:00 Emergency X MAGGI CALLOWAY [facility] ERT [id number] [facility] 2022-10-27 11:59:00 2022-10-27 14:26:00 Emergency Maggi Calloway [facility] 1..840.114 350.1.13.10 4.2.7.2.686 [id number] [facility] 2022-10-10 11:07:36 2022-10-10 11:07:36 Outpatient [facility] [id number] Toney Renner 2022-10-10 00:00:00 2022-10-10 00:00:00 Outpatient Visit f3j8325w- 83i5-11mk -afcf-58a 2s70lr155 [id number] g6u0035x-0 4u7-89lm-t fcf-58a1a7 6jv617 2022-09-05 00:00:00 2022-09-05 00:00:00 Outpatient Visit wc503o44- r217-9x9v -2s53-e60 [id number] wt517v30-i 958-4c8f-8 f65-o04482 1067e8 2022-09-03 11:00:00 2022-09-03 11:16:40 Outpatient R PETRONA BURNETTE [facility] [id number] [facility] 2022-09-03 11:00:00 2022-09-03 11:16:40 [facility] 1..840.114 350.1.13.10 4.2.7.2.686 [id number] [facility] 2022-08-13 00:00:00 2022-08-13 00:00:00 Outpatient Visit [id number]- wg3f-4i4v -88ca-354 g4f6abq4i [id number] 7e6179bq-q j1i-5h7q-3 8ca-354d7f 0bbe2b 2022-08-13 00:00:00 2022-08-13 00:00:00 Telephone VasilePetrona [facility] 1..840.114 350.1.13.10 4.2.7.2.686 [id number] [facility] 2022-08-08 10:46:11 2022-08-08 23:59:00 Hospital Encounter Vasile [facility] 1.2.840.114 350.1.13.10 4.2.7.2.686 [id number] [facility] 2022-08-08 10:45:57 2022-08-08 10:45:57 Hospital Encounter Vasile [facility] 1.2.840.114 350.1.13.10 4.2.7.2.686 [id number] [facility] 2022-08-08 10:45:44 2022-08-08 10:45:44 Hospital Encounter Vasile [facility] 1.2.840.114 350.1.13.10 4.2.7.2.686 [id number] [facility] 2022-08-08 10:45:30 2022-08-08 10:45:30 Outpatient R VASILE [facility] [id number] [facility] 2022-08-08 10:45:30 2022-08-08 10:45:30 Hospital Encounter Vasile [facility] 1.2.840.114 350.1.13.10 4.2.7.2.686 [id number] [facility] 2022-08-06 11:20:00 2022-08-06 12:00:00 Office Visit Lila Galleg[facility] 1.2.840.114 350.1.13.10 4.2.7.2.686 [id number] [facility] 2022-08-06 11:20:00 2022-08-06 11:20:00 [facility] [id number] [facility] 2022-08-05 00:00:00 2022-08-05 00:00:00 Outpatient R PETRONA BURNETTE [facility] [id number] [facility] 2022-08-05 00:00:00 2022-08-05 00:00:00 Transition of Care Lisette Peck 1.2.840.114 350.1.13.10 4.2.7.2.686 [id number] [facility] 2022-08-03 10:23:13 2022-08-03 10:23:13 Outpatient [facility] [id number] Toney Renner 2022-07-30 10:09:00 2022-08-02 14:14:00 Outpatient X KARTHIK AVILA [facility] [id number] [facility] 2022-07-30 10:09:00 2022-08-02 14:14:00 Emergency Destiney Blair David Abdullah, Yaman [facility] 1.2.840.114 350.1.13.10 4.2.7.2.686 [id number] [facility] 2022-08-02 00:00:00 2022-08-02 00:00:00 [facility] 1.2.840.114 350.1.13.10 4.2.7.2.686 [id number] [facility] 2022-07-18 00:00:00 2022-07-18 00:00:00 Outpatient Visit [id number] z3xb-7253 -943b-134 ps4l79svw [id number] 0797081h-p 4cb-4854-9 43b-134aa4 f61cef 2022-06-06 00:00:00 2022-06-06 00:00:00 Outpatient Visit n667ib47- 2dl4-30y3 -8693-62f 06g5a2mdp [id number] h046we31-0 eb2-45b9-8 693-62f03e 2f1fbe 2022-05-30 00:00:00 2022-05-30 00:00:00 Outpatient Visit 02i633o7- 97i4-8633 -5i04-6jg 04f55aop2 [id number] 12g099h5-2 0s2-6631-3 g22-5ph78u 94acf2 2022-05-14 00:00:00 2022-05-14 00:00:00 Outpatient Visit zlec3eyp- v6lh-7086 -a95o-l07 8y3709z49 [id number] tmwd5ita-a 0ed-4477-b 77d-a664a2 437c55 2022-05-02 00:00:00 2022-05-02 00:00:00 Outpatient Visit [id number]- x832-61cr -66b4-366 1ra93980c [id number] 16e21786-j 487-49ce-8 8w0-3561rf 98776n 2021-12-20 00:00:00 2021-12-20 00:00:00 [facility] [id number] [facility] 2021-11-23 00:00:00 2021-11-23 00:00:00 [facility] 1.2.840.114 350.1.13.10 4.2.7.2.686 [id number] [id number] [facility] 2021-11-05 14:58:39 2021-11-05 23:59:00 Outpatient R PETRONA BURNETTE [facility] [id number] [facility] 2021-11-05 14:58:39 2021-11-05 23:59:00 [facility] 1.2.840.114 350.1.13.10 4.2.7.2.686 [id number] [facility] 2021-10-29 15:40:00 2021-10-29 16:06:16 Outpatient R PETRONA BURNETTE [facility] [id number] [facility] 2021-10-09 00:00:00 2021-10-09 00:00:00 Orders Only Doctor Unassigned, Olin [facility] 1.2.840.114 350.1.13.10 4.2.7.2.686 [id number] [id number] [facility] Results Test Description Test Time Test Comments Results Result Co mments Source CULTURE, URINE 2023-11-29 11:54:09 SPECIMEN NUMBER: [id number] CULTURE, URINE SPECIMEN NUMBER: [id number] SPECIMEN COMMENT: URINE SOURCE: URINE REPORT STATUS: FINAL FINAL REPORT: 11/29/2023 <10,000 CFU/ML UROGENITAL WOLF PRESENT NO COMMON PATHOGENS Toney RennerCOMPREHENSIVE METABOLIC [id number] 05:44:49* Test Item Value Reference Range Interpretation Comme nts GLUCOSE (test code = 2217) 157 MG/DL 70-99 H BUN (test code = 2208) 14 MG/DL 8-23 CREATININE (test code = 2214) 0.51 MG/DL 0.60-1.30 L eGFR (2020 CKD-EPI) (test co de = 48185) 99 ML/MIN/1.73 >60 CALC BUN/CREAT (test code = 2235) 27 RATIO 6-28 SODIUM (test code = 2231) 143 MEQ/L 133-146 POTASSIUM (test code = 2228) 3.9 MEQ/L 3.5-5.4 CHLORIDE (test code = 2215) 104 MEQ/L 95-107 CARBON DIOXIDE (test code = 2206) 27 MEQ/L 19-31 CALCIUM (test code = 2209) 9.6 MG/DL 8.5-10.5 PROTEIN, TOTAL (test code = 2229) 7.7 G/DL 6.1-8.3 ALBUMIN (test code = 2201) 4.2 G/DL 3.5-5.2 CALC GLOBULIN (test code = 2240) 3.5 G/DL 1.9-3.7 CALC A/G RATIO (test code = 2234) 1.2 RATIO 1.0-2.6 BILIRUBIN, TOTAL (test code = 2207) 0.5 MG/DL <=1.2 ALKALINE PHOSPHATASE (test code = 2204) 93 U/L 40-142 AST (test code = 2218) 26 U/L 9-40 ALT (test code = 2219) 21 U/L 5-40 LIPID [id number] 05:44:49* Test Item Value Reference Range Interpretation Comme nts CHOLESTEROL (test code = 2210) 155 MG/DL <200 TRIGLYCERIDES (test code = 2232) 103 MG/DL <150 HDL CHOLESTEROL (test code = 2220) 47 MG/DL >39 CALC LDL CHOL (test code = 7) 88 MG/DL <100 NOTE: CALCULATED LDL IS BASED ON SANDRA-TELLO METHOD WHICHINCLUDES ADJUSTABLE TRIGLYCERIDE:VLDL CHOLESTEROL RATIO.THIS FACTOR VARIES BY MEASURED TRIGLYCERIDE AND NON-HDLCHOLESTEROL CONCENTRATIONS WITH INCREASED CALCULATED LDL SEENIN HIGHER TRIGLYCERIDE OR LOWER NON-HDL SPECIMENS. FOR MOREINFORMATION, SEE CLIENT ANNOUNCEMENT AT [email or web address] RATIO LDL/HDL (test code = 2238) 1.87 RATIO <3.22 HEMOGLOBIN [id number] 03:44:18* Test Item Value Reference Range Interpretation Comme nts HEMOGLOBIN A1c (test code = 41321) 7.4 % 4.2-5.6 H [employer] GUIDELINES FOR HGB A1C: PREDIABETES/INCREASED RISK . . . . . . . 5.7-6.4% DIAGNOSIS OF DIABETES . . . . . . . . . >=6.5% WITH CONFIRMATION OR APPROPRIATE SYMPTOMS NOTE: ASSAY MAY BE AFFECTED BY HEMOGLOBINOPATHIES (SICKLE CELL ANEMIA, S-C DISEASE, OTHERS) OR ARTIFICIALLY LOWERED BY DECREASED RED CELL SURVIVAL (HEMOLYTIC ANEMIAS, BLOOD LOSS, ETC.). CONSIDER ALTERNATE TESTING OR LABORATORY CONSULTATION. UNLESS OTHERWISE INDICATED, ALL TESTING PERFORMED AT [facility] [address] [place] [id number] TRANSMISSION ASSEMBLER: Raji EDWARDSIA NUMBER [id number] [facility] [place]. [id number] HEMOGLOBIN [id number] 00:00:00* Test Item Value Reference Range Interpretation Comme nts HEMOGLOBIN A1c (test code = 30164) 7.4 % Toney RennerCOMPREHENSIVE METABOLIC [id number] 00:00:00* Test Item Value Reference Range Interpretation Comme nts GLUCOSE (test code = 2217) 157 MG/DL BUN (test code = 2208) 14 MG/DL CREATININE (test code = 2214) 0.51 MG/DL eGFR (2020 CKD-EPI) (test co de = 44497) 99 ML/MIN/1.73 CALC BUN/CREAT (test code = 2235) 27 RATIO SODIUM (test code = 2231) 143 MEQ/L POTASSIUM (test code = 2228) 3.9 MEQ/L CHLORIDE (test code = 2215) 104 MEQ/L CARBON DIOXIDE (test code = 2206) 27 MEQ/L CALCIUM (test code = 2209) 9.6 MG/DL PROTEIN, TOTAL (test code = 222) 7.7 G/DL ALBUMIN (test code = 2201) 4.2 G/DL CALC GLOBULIN (test code = 2240) 3.5 G/DL CALC A/G RATIO (test code = 2234) 1.2 RATIO BILIRUBIN, TOTAL (test code = 2206) 0.5 MG/DL ALKALINE PHOSPHATASE (test code = 2203) 93 U/L AST (test code = 2218) 26 U/L ALT (test code = 2219) 21 U/L Toney Cowan ZurdoLIPID [id number] 00:00:00* Test Item Value Reference Range Interpretation Comme nts CHOLESTEROL (test code = 2210) 155 MG/DL TRIGLYCERIDES (test code = 2232) 103 MG/DL HDL CHOLESTEROL (test code = 2220) 47 MG/DL CALC LDL CHOL (test code = 2237) 88 MG/DL RISK RATIO LDL/HDL (test cod e = 2238) 1.87 RATIO Toney RennerHEPATIC FUNCTION [id number] 06:18:49* Test Item Value Reference Range Interpretation Comme nts PROTEIN, TOTAL (test code = 2229) 7.7 G/DL 6.1-8.3 ALBUMIN (test code = 2201) 4.6 G/DL 3.5-5.2 BILIRUBIN, TOTAL (test code = 2207) 0.5 MG/DL <=1.2 BILIRUBIN, DIRECT (test code = 2021) 0.2 MG/DL 0.0-0.3 ALKALINE PHOSPHATASE (test c ode = 2203) 78 U/L 40-142 AST (test code = 2218) 32 U/L 9-40 ALT (test code = 2219) 27 U/L 5-40 AFP, TUMOR [id number] 06:17:42* Test Item Value Reference Range Interpretation Comme nts AFP, TUMOR MARKER (test code = 67969) 3.04 NG/ML <=8.30 UNLESS OTHERWISE INDICATED, ALL TESTING PERFORMED AT [facility] [address] [place] [address] TRANSMISSION ASSEMBLER: LILA SHANNON M.D. CLIA NUMBER [id number] [facility] [place]. [id number] HEPATITIS B CORE [id number] 04:33:04* Test Item Value Reference Range Interpretation Comme nts HEPATITIS B CORE IgM (test c ode = 4644) NON-REACTIVE NON-REACTIVE HEPATITIS C [id number] 04:33:04* Test Item Value Reference Range Interpretation Comme nts HEPATITIS C ANTIBODY (test c ode = 4675) NON-REACTIVE NON-REACTIVE HEPATITIS B SURFACE [id number] 04:33:04* Test Item Value Reference Range Interpretation Comme nts HEPATITIS B SURFACE AB (test code = 2737) REACTIVE NON-REACTIVE A HEPATITIS C [id number] 00:00:00* Test Item Value Reference Range Interpretation Comme nts HEPATITIS C ANTIBODY (test c ode = 4675) NON-REACTIVE Toney RennerHEPATITIS B SURFACE [id number] 00:00:00* Test Item Value Reference Range Interpretation Comme nts HEPATITIS B SURFACE AB (test code = 2737) REACTIVE Toney RennerAFP, TUMOR [id number] 00:00:00* Test Item Value Reference Range Interpretation Comme nts AFP, TUMOR MARKER (test code = 62783) 3.04 NG/ML Toney RennerLIVER (HEPATIC) FUNCTION [id number] 00:00:00* Test Item Value Reference Range Interpretation Comme nts PROTEIN, TOTAL (test code = 2229) 7.7 G/DL ALBUMIN (test code = 2201) 4.6 G/DL BILIRUBIN, TOTAL (test code = 2207) 0.5 MG/DL BILIRUBIN, DIRECT (test code = 2022) 0.2 MG/DL ALKALINE PHOSPHATASE (test c ode = 2204) 78 U/L AST (test code = 2218) 32 U/L ALT (test code = 2219) 27 U/L Toney Cowan AustinHEPATITIS B CORE [id number] 00:00:00* Test Item Value Reference Range Interpretation Comme nts HEPATITIS B CORE IgM (test c ode = 4644) NON-REACTIVE [facility] 13:54:20* Test Item Value Reference Range Interpretation Comme nts POCT GLU (test code = 3354323315) 153 mg/dL 70-110 H Lab Interpretation (test cod e = 41379-3) [facility] 03:11:35* Test Item Value Reference Range Interpretation Comme nts POCT GLU (test code = 4756411791) 149 mg/dL 70-110 H Lab Interpretation (test cod e = 11046-1) [facility] 22:35:44* Test Item Value Reference Range Interpretation Comme nts POCT GLU (test code = 4992717338) 137 mg/dL 70-110 H Lab Interpretation (test cod e = 35479-3) [facility] 18:37:00* Test Item Value Reference Range Interpretation Comme nts POCT GLU (test code = 4820975901) 226 mg/dL 70-110 H Lab Interpretation (test cod e = 05765-1) [facility] 13:38:01* Test Item Value Reference Range Interpretation Comme nts POCT GLU (test code = 2734441202) 130 mg/dL 70-110 H Lab Interpretation (test cod e = 90845-4) [facility] 02:32:39* Test Item Value Reference Range Interpretation Comme nts POCT GLU (test code = 4536579626) 111 mg/dL 70-110 H Lab Interpretation (test cod e = 74736-8) Abnormal [facility] GLUCOSE (AUTOMATED)2023-09-03 22:49:16* Test Item Value Reference Range Interpretation Comme nts POCT GLU (test code = 4401530252) 117 mg/dL 70-110 H Lab Interpretation (test cod e = 05867-2) Abnormal [facility] GLUCOSE (AUTOMATED)2023-09-03 17:50:09* Test Item Value Reference Range Interpretation Comme nts POCT GLU (test code = 2970804935) 140 mg/dL 70-110 H Lab Interpretation (test cod e = 54586-4) Abnormal [facility] GLUCOSE (AUTOMATED)2023-09-03 13:55:34* Test Item Value Reference Range Interpretation Comme nts POCT GLU (test code = 9224454181) 155 mg/dL 70-110 H Lab Interpretation (test cod e = 84486-4) Abnormal [facility] GLUCOSE (AUTOMATED)2023-09-03 02:55:00* Test Item Value Reference Range Interpretation Comme nts POCT GLU (test code = 3905279519) 132 mg/dL 70-110 H Lab Interpretation (test cod e = 41767-3) Abnormal [facility] GLUCOSE (AUTOMATED)2023-09-02 22:07:26* Test Item Value Reference Range Interpretation Comme nts POCT GLU (test code = 3998316971) 155 mg/dL 70-110 H Lab Interpretation (test cod e = 47486-7) Abnormal [facility] GLUCOSE (AUTOMATED)2023-09-02 17:46:33* Test Item Value Reference Range Interpretation Comme nts POCT GLU (test code = 5696747340) 130 mg/dL 70-110 H Lab Interpretation (test cod e = 33556-8) Abnormal [facility] GLUCOSE (AUTOMATED)2023-09-02 15:02:11* Test Item Value Reference Range Interpretation Comme nts POCT GLU (test code = 5056574601) 154 mg/dL 70-110 H Lab Interpretation (test cod e = 62850-3) [facility]normal [facility] Whole [id number] 01:40:13* Test Item Value Reference Range Interpretation Comme nts LACTIC ACID (test code = 3167375119) 1.86 mmol/L 0.50-2.20 Lab Interpretation (test cod e = 56686-7) Normal [facility] [id number] 23:16:55* Test Item Value Reference Range Interpretation Comme nts TROPONIN I (test code = 8962813297) 0.000 ng/mL <=0.034 FIOR (test code = FIOR) Reference (Normal) Range (defined by the 99th percentile reference limit): <= 0.034 ng/mL Note: Cardiac troponin begins to rise 3-4 hours after the onset of ischemia. Repeat in 4-6 hours if the sample was drawn within 3-4 hours of the onset of the symptom and found normal. Diagnosis of myocardial injury is made with acute changes in cTn concentrations with at least one serial sample above the 99th percentile upper reference limit (URL), taken together with the patient's clinical presentation. Biotin has been reported to cause a negative bias, interpret results relative to patient's use of biotin. Lab Interpretation (test code = 94055-9) Normal [facility]. METABOLIC PANEL (87189)2023-09-01 23:05:35* Test Item Value Reference Range Interpretation Comme nts NA (test code = 3505405085) 139 mmol/L 135-145 K (test code = 8383323752) 3.5 mmol/L 3.5-5.0 CL (test code = 0656476264) 103 mmol/L 98-108 CO2 TOTAL (test code = 2708579472) 23 mmol/L 23-31 AGAP (test code = 4514433998) 13 2-16 BUN (test code = 8030589883) 11 mg/dL 7-23 GLUCOSE (test code = 5838514374) 134 mg/dL 70-110 H CREATININE (test code = 6516244875) 0.48 mg/dL 0.50-1.04 L TOTAL BILI (test code = 6010228084) 0.7 mg/dL 0.1-1.1 CALCIUM (test code = 7268134658) 9.3 mg/dL 8.6-10.6 T PROTEIN (test code = 7127607582) 8.8 g/dL 6.3-8.2 H ALBUMIN (test code = 0098382954) 4.4 g/dL 3.5-5.0 ALK PHOS (test code = 2526247918) 94 U/L 34-122 ALTv (test code = 1742-6) 30 U/L 5-35 AST(SGOT) (test code = 5051256215) 30 U/L 13-40 eGFR (test code = 74231-9) 100.8 mL/min/1.73m2 CKD-EPI eGFR (2020). Assuming creatinine has been stable day-to-day for at least three months, the eGFR indicates Category G1 (>= 90 mL/min/1.73 m2) Lab Interpretation (test code = 34221-2) Abnormal [facility] WITH [id number] 22:53:32* Test Item Value Reference Range Interpretation Comme nts WBC (test code = 6690-2) 15.36 See_Comment H [Automated message] The system which generated this result transmitted reference range: 4.30 - 11.10 10*3/?L. The reference range was not used to interpret this result as normal/abnormal. RBC (test code = 789-8) 4.37 See_Comment [Automated message] The system which generated this result transmitted reference range: 3.93 - 5.25 10*6/?L. The reference range was not used to interpret this result as normal/abnormal. HGB (test code = 718-7) 13.2 g/dL 11.6-15.0 HCT (test code = 4544-3) 39.5 % 35.7-45.2 MCV (test code = 787-2) 90.4 fL 80.6-95.5 MCH (test code = 785-6) 30.2 pg 25.9-32.8 MCHC (test code = 786-4) 33.4 g/dL 31.6-35.1 RDW-SD (test code = 50358-8) 43.8 fL 39.0-49.9 RDW-CV (test code = 788-0) 13.2 % 12.0-15.5 PLT (test code = 777-3) 213 See_Comment [Automated message] The system which generated this result transmitted reference range: 166 - 358 10*3/?L. The reference range was not used to interpret this result as normal/abnormal. MPV (test code = 52726-4) 11.7 fL 9.5-12.9 NRBC/100 WBC (test code = 9920450731) 0.0 See_Comment [Automated message] The system which generated this result transmitted reference range: 0.0 - 10.0 /100 WBCs. The reference range was not used to interpret this result as normal/abnormal. NRBC x10^3 (test code = 1549949817) See_Comment [Automated message] The system which generated this result transmitted reference range: 10*3/?L. The reference range was not used to interpret this result as normal/abnormal. GRAN MAT (NEUT) % (test code = 770-8) 75.2 % IMM GRAN % (test code = 6635328166) 0.40 % LYMPH % (test code = 736-9) 16.2 % MONO % (test code = 5905-5) 7.6 % EOS % (test code = 713-8) 0.3 % BASO % (test code = 706-2) 0.3 % GRAN MAT x10^3(ANC) (test code = 3346928887) 11.57 10*3/uL 1.88-7.09 H IMM GRAN x10^3 (test code = 3051071453) 0.06 10*3/uL 0.00-0.06 LYMPH x10^3 (test code = 731-0) 2.49 10*3/uL 1.32-3.29 MONO x10^3 (test code = 742-7) 1.16 10*3/uL 0.33-0.92 H EOS x10^3 (test code = 711-2) 0.04 10*3/uL 0.03-0.39 BASO x10^3 (test code = 704-7) 0.04 10*3/uL 0.01-0.07 Lab Interpretation (test code = 73543-7) [facility]normal [facility] Whole [id number] 22:38:11* Test Item Value Reference Range Interpretation Comme nts LACTIC ACID (test code = 0864955709) 2.36 mmol/L 0.50-2.20 H Lab Interpretation (test cod e = 25656-7) Abnormal [facility] [id number] 02:23:49* Test Item Value Reference Range Interpretation Comme nts HEMOGLOBIN A1c (test code = 93710) 8.5 % 4.2-5.6 H [employer] GUIDELINES FOR HGB A1C: PREDIABETES/INCREASED RISK . . . . . . . 5.7-6.4% DIAGNOSIS OF DIABETES . . . . . . . . . >=6.5% WITH CONFIRMATION OR APPROPRIATE SYMPTOMS NOTE: ASSAY MAY BE AFFECTED BY HEMOGLOBINOPATHIES (SICKLE CELL ANEMIA, S-C DISEASE, OTHERS) OR ARTIFICIALLY LOWERED BY DECREASED RED CELL SURVIVAL (HEMOLYTIC ANEMIAS, BLOOD LOSS, ETC.). CONSIDER ALTERNATE TESTING OR LABORATORY CONSULTATION. UNLESS OTHERWISE INDICATED, ALL TESTING PERFORMED AT [facility] [address] [place] [address] TRANSMISSION ASSEMBLER: LILA SHANNON M.D. CLIA NUMBER [id number] [facility] [place]. [id number] HEMOGLOBIN [id number] 00:00:00* Test Item Value Reference Range Interpretation Comme nts HEMOGLOBIN A1c (test code = 33303) 8.5 % Toney DolanFlor [id number] 01:42:18* Test Item Value Reference Range Interpretation Comme nts TROPONIN I (test code = 0216482229) 0.003 ng/mL <=0.034 FIOR (test code = FIOR) Reference (Normal) Range (defined by the 99th percentile reference limit): <= 0.034 ng/mL Note: Cardiac troponin begins to rise 3-4 hours after the onset of ischemia. Repeat in 4-6 hours if the sample was drawn within 3-4 hours of the onset of the symptom and found normal. Diagnosis of myocardial injury is made with acute changes in cTn concentrations with at least one serial sample above the 99th percentile upper reference limit (URL), taken together with the patient's clinical presentation. Biotin has been reported to cause a negative bias, interpret results relative to patient's use of biotin. Lab Interpretation (test code = 15791-0) Normal [facility]AL [id number] 01:39:57* Test Item Value Reference Range Interpretation Comme nts NT-proBNP (test code = 10574-3) 92 pg/mL <=125 Lab Interpretation (test cod e = 59230-4) Normal [facility]2023-08-07 01:25:59* Test Item Value Reference Range Interpretation Comme nts MAGNESIUM (test code = 3443924625) 1.9 mg/dL 1.7-2.4 Lab Interpretation (test cod e = 63938-3) Normal [facility] METABOLIC PANEL (75231)2023-06-02 01:25:39* Test Item Value Reference Range Interpretation Comme nts NA (test code = 7723208711) 142 mmol/L 135-145 K (test code = 4908597671) 3.8 mmol/L 3.5-5.0 CL (test code = 6219784514) 102 mmol/L 98-108 CO2 TOTAL (test code = 2990331645) 30 mmol/L 23-31 AGAP (test code = 4563056090) 10 2-16 BUN (test code = 3366601729) 24 mg/dL 7-23 H GLUCOSE (test code = 4024950680) 219 mg/dL 70-110 H CREATININE (test code = 1897582193) 0.76 mg/dL 0.50-1.04 TOTAL BILI (test code = 9693424973) 0.4 mg/dL 0.1-1.1 CALCIUM (test code = 9346343056) 9.9 mg/dL 8.6-10.6 T PROTEIN (test code = 8743603570) 8.3 g/dL 6.3-8.2 H ALBUMIN (test code = 3330055355) 4.3 g/dL 3.5-5.0 ALK PHOS (test code = 7486592736) 103 U/L 34-122 ALTv (test code = 1742-6) 36 U/L 5-35 H AST(SGOT) (test code = 8896417812) 35 U/L 13-40 eGFR (test code = 1456077485) 75.0 mL/min/1.73m2 FIOR (test code = FIOR) Association of Glomerular Filtration Rate (GFR) and Staging of Kidney Disease* + --+ --+ ------+| GFR (mL/min/1.73 m2) ?| With Kidney Damage ?| ?Without Kidney Damage+ --------+ --------+ +| ?>90 ?| ?Stage one ?| ? Normal ?+ ---+ ---+ -------+| ?60-89 ?| ?Stage two ?| ? Decreased GFR ? + --+ --+ ------+| ?30-59 ?| ?Stage three ?| ? Stage three ? + --+ --+ ------+| ?15-29 ?| ?Stage four ? | ? Stage four ?+ ---+ ---+ -------+| ?<15 (or dialysis) ? ?| ?Stage five ? | ? Stage five ?+ ---+ ---+ -------+ *Each stage assumes the associated GFR level has been in effect for at least three months. ?Stages 1 to 5, with or without kidney disease, indicate chronic kidney disease. Notes: Determination of stages one and two (with eGFR >59mL/min/1.73 m2) requires estimation of kidney damage for at least three months as defined by structural or functional abnormalities of the kidney, manifested by either:Pathological abnormalities or Markers of kidney damage (including abnormalities in the composition of the blood or urine or abnormalities in imaging tests). Lab Interpretation (test code = 13980-2) [facility]normal [facility] 01:25:39* Test Item Value Reference Range Interpretation Comme nts LIPASE (test code = 5958882888) 105 U/L 0-220 Lab Interpretation (test cod e = 39696-0) Normal [facility] WITH [id number] 00:51:14* Test Item Value Reference Range Interpretation Comme nts WBC (test code = 6690-2) 7.72 See_Comment [Automated reeplay.it] The system which generated this result transmitted reference range: 4.30 - 11.10 10*3/?L. The reference range was not used to interpret this result as normal/abnormal. RBC (test code = 789-8) 4.31 See_Comment [Automated reeplay.it] The system which generated this result transmitted reference range: 3.93 - 5.25 10*6/?L. The reference range was not used to interpret this result as normal/abnormal. HGB (test code = 718-7) 13.1 g/dL 11.6-15.0 HCT (test code = 4544-3) 39.1 % 35.7-45.2 MCV (test code = 787-2) 90.7 fL 80.6-95.5 MCH (test code = 785-6) 30.4 pg 25.9-32.8 MCHC (test code = 786-4) 33.5 g/dL 31.6-35.1 RDW-SD (test code = 16637-7) 46.0 fL 39.0-49.9 RDW-CV (test code = 788-0) 13.7 % 12.0-15.5 PLT (test code = 777-3) 221 See_Comment [Automated eGyma ge] The system which generated this result transmitted reference range: 166 - 358 10*3/?L. The reference range was not used to interpret this result as normal/abnormal. MPV (test code = 21740-6) 11.2 fL 9.5-12.9 NRBC/100 WBC (test code = 9257842055) 0.0 See_Comment [Automated Square ssage] The system which generated this result transmitted reference range: 0.0 - 10.0 /100 WBCs. The reference range was not used to interpret this result as normal/abnormal. NRBC x10^3 (test code = 5559051244) See_Comment [Automated eGyma ge] The system which generated this result transmitted reference range: 10*3/?L. The reference range was not used to interpret this result as normal/abnormal. GRAN MAT (NEUT) % (test code = 770-8) 42.7 % IMM GRAN % (test code = 8729241202) 0.10 % LYMPH % (test code = 736-9) 43.4 % MONO % (test code = 5905-5) 9.5 % EOS % (test code = 713-8) 3.5 % BASO % (test code = 706-2) 0.8 % GRAN MAT x10^3(ANC) (test code = 3852057720) 3.30 10*3/uL 1.88-7.09 IMM GRAN x10^3 (test code = 0694244662) 0.00-0.06 LYMPH x10^3 (test code = 731-0) 3.35 10*3/uL 1.32-3.29 H MONO x10^3 (test code = 742-7) 0.73 10*3/uL 0.33-0.92 EOS x10^3 (test code = 711-2) 0.27 10*3/uL 0.03-0.39 BASO x10^3 (test code = 704-7) 0.06 10*3/uL 0.01-0.07 Lab Interpretation (test code = 71118-9) [facility]normal [facility] [id number] 04:42:59* Test Item Value Reference Range Interpretation Comme nts HEMOGLOBIN A1c (test code = 78726) 9.0 % 4.2-5.6 H [employer] GUIDELINES FOR HGB A1C: PREDIABETES/INCREASED RISK . . . . . . . 5.7-6.4% DIAGNOSIS OF DIABETES . . . . . . . . . >=6.5% WITH CONFIRMATION OR APPROPRIATE SYMPTOMS NOTE: ASSAY MAY BE AFFECTED BY HEMOGLOBINOPATHIES (SICKLE CELL ANEMIA, S-C DISEASE, OTHERS) OR ARTIFICIALLY LOWERED BY DECREASED RED CELL SURVIVAL (HEMOLYTIC ANEMIAS, BLOOD LOSS, ETC.). CONSIDER ALTERNATE TESTING OR LABORATORY CONSULTATION. UNLESS OTHERWISE INDICATED, ALL TESTING PERFORMED AT [facility] [address] [place] [address] TRANSMISSION ASSEMBLER: LILA SHANNON M.D. [facility] NUMBER [id number] [facility] [place]. [id number] CBC W/AUTO DIFF WITH [id number] 03:45:44* Test Item Value Reference Range Interpretation Comme nts WBC (test code = 1001) 6.9 K/UL 3.5-11.0 RBC (test code = 1002) 4.42 M/UL 3.80-5.40 HEMOGLOBIN (test code = 1003) 12.9 G/DL 11.5-15.5 HEMATOCRIT (test code = 1004) 39.1 % 34.0-45.0 MCV (test code = 1005) 88.5 fL 80.0-99.0 MCH (test code = 1006) 29.2 PG 25.0-33.0 MCHC (test code = 1007) 33.0 G/DL 31.0-36.0 RDW (test code = 1038) 13.4 % 11.5-15.0 NEUTROPHILS (test code = 1008) 45.0 % LYMPHOCYTES (test code = 1010) 43.0 % MONOCYTES (test code = 1011) 8.0 % EOSINOPHILS (test code = 1012) 3.0 % BASOPHILS (test code = 1013) 0.7 % IMMATURE GRANULOCYTES (test code = 1036) 0.3 % NUCLEATED RBCS (test code = 1065) 0.0 /100 WBC'S See_Comment [Automated eGyma ge] The system which generated this result transmitted reference range: 0.0. The reference range was not used to interpret this result as normal/abnormal. PLATELET COUNT (test code = 1015) 222 K/UL 130-400 ABSOLUTE NEUTROPHILS (test code = 1066) 3.11 K/UL 1.50-7.50 ABSOLUTE LYMPHOCYTES (test code = 1067) 2.97 K/UL 1.00-4.00 ABSOLUTE MONOCYTES (test code = 1068) 0.55 K/UL 0.20-1.00 ABSOLUTE EOSINOPHILS (test code = 1040) 0.21 K/UL 0.00-0.50 ABSOLUTE BASOPHILS (test code = 1069) 0.05 K/UL 0.00-0.20 ABS IMMATURE GRANULOCYTES (test code = 1020) 0.02 K/UL 0.00-0.10 ABS NUCLEATED RBCS (test code = 70391) 0.00 K/UL 0.00-0.11 COMPREHENSIVE METABOLIC [id number] 03:39:49* Test Item Value Reference Range Interpretation Comme nts GLUCOSE (test code = 2217) 211 MG/DL 70-99 H BUN (test code = 2207) 14 MG/DL 8-23 CREATININE (test code = 2214) 0.53 MG/DL 0.60-1.30 L eGFR (2020 CKD-EPI) (test code = 93477) 99 ML/MIN/1.73 >60 CALC BUN/CREAT (test code = 223) 26 RATIO 6-28 SODIUM (test code = 223) 143 MEQ/L 133-146 POTASSIUM (test code = 2228) 4.6 MEQ/L 3.5-5.4 CHLORIDE (test code = 2215) 102 MEQ/L 95-107 CARBON DIOXIDE (test code = 220) 29 MEQ/L 19-31 CALCIUM (test code = 2209) 10.2 MG/DL 8.5-10.5 PROTEIN, TOTAL (test code = 2228) 7.6 G/DL 6.1-8.3 ALBUMIN (test code = 220) 4.3 G/DL 3.5-5.2 CALC GLOBULIN (test code = 2240) 3.3 G/DL 1.9-3.7 CALC A/G RATIO (test code = 223) 1.3 RATIO 1.0-2.6 BILIRUBIN, TOTAL (test code = 2207) 0.3 MG/DL See_Comment [Automated me ssage] The system which generated this result transmitted reference range: <=1.2. The reference range was not used to interpret this result as normal/abnormal. ALKALINE PHOSPHATASE (test code = 2203) 97 U/L 40-142 AST (test code = 2218) 35 U/L 9-40 ALT (test code = 2219) 44 U/L 5-40 H LIPID [id number] 03:39:49* Test Item Value Reference Range Interpretation Comme nts CHOLESTEROL (test code = 2210) 192 MG/DL <200 TRIGLYCERIDES (test code = 2) 149 MG/DL <150 HDL CHOLESTEROL (test code = 0) 45 MG/DL >39 CALC LDL CHOL (test code = 2236) 121 MG/DL <100 H NOTE: CALCULATED LDL IS BASED ON SANDRA-TELLO METHOD WHICHINCLUDES ADJUSTABLE TRIGLYCERIDE:VLDL CHOLESTEROL RATIO.THIS FACTOR VARIES BY MEASURED TRIGLYCERIDE AND NON-HDLCHOLESTEROL CONCENTRATIONS WITH INCREASED CALCULATED LDL SEENIN HIGHER TRIGLYCERIDE OR LOWER NON-HDL SPECIMENS. FOR MOREINFORMATION, SEE CLIENT ANNOUNCEMENT AT [email or web address] [email or web address] RATIO LDL/HDL (test code = 2237) 2.69 RATIO <3.22 HEMOGLOBIN [id number] 00:00:00* Test Item Value Reference Range Interpretation Comme nts HEMOGLOBIN A1c (test code = 47561) 9.0 % [facility] [id number] 00:00:00* Test Item Value Reference Range Interpretation Comme nts WBC (test code = 1001) 6.9 K/UL RBC (test code = 1002) 4.42 M/UL HEMOGLOBIN (test code = 1003) 12.9 G/DL HEMATOCRIT (test code = 1004) 39.1 % MCV (test code = 1005) 88.5 fL MCH (test code = 1006) 29.2 PG MCHC (test code = 1007) 33.0 G/DL RDW (test code = 1038) 13.4 % NEUTROPHILS (test code = 1008) 45.0 % LYMPHOCYTES (test code = 1010) 43.0 % MONOCYTES (test code = 1011) 8.0 % EOSINOPHILS (test code = 1012) 3.0 % BASOPHILS (test code = 1013) 0.7 % IMMATURE GRANULOCYTES (test code = 1036) 0.3 % NUCLEATED RBCS (test code = 1065) 0.0 /100WBC'S PLATELET COUNT (test code = 1015) 222 K/UL ABSOLUTE NEUTROPHILS (test c ode = 1066) 3.11 K/UL ABSOLUTE LYMPHOCYTES (test c ode = 1067) 2.97 K/UL ABSOLUTE MONOCYTES (test cod e = 1068) 0.55 K/UL ABSOLUTE EOSINOPHILS (test c ode = 1040) 0.21 K/UL ABSOLUTE BASOPHILS (test cod e = 1069) 0.05 K/UL ABS IMMATURE GRANULOCYTES (t est code = 1020) 0.02 K/UL ABS NUCLEATED RBCS (test cod e = 98566) 0.00 K/UL Toney RennerCOMPREHENSIVE METABOLIC [id number] 00:00:00* Test Item Value Reference Range Interpretation Comme nts GLUCOSE (test code = 2217) 211 MG/DL BUN (test code = 2208) 14 MG/DL CREATININE (test code = 2214) 0.53 MG/DL eGFR (2020 CKD-EPI) (test co de = 28034) 99 ML/MIN/1.73 CALC BUN/CREAT (test code = 2235) 26 RATIO SODIUM (test code = 2231) 143 MEQ/L POTASSIUM (test code = 2228) 4.6 MEQ/L CHLORIDE (test code = 2215) 102 MEQ/L CARBON DIOXIDE (test code = 2206) 29 MEQ/L CALCIUM (test code = 2209) 10.2 MG/DL PROTEIN, TOTAL (test code = 2229) 7.6 G/DL ALBUMIN (test code = 2201) 4.3 G/DL CALC GLOBULIN (test code = 2240) 3.3 G/DL CALC A/G RATIO (test code = 2234) 1.3 RATIO BILIRUBIN, TOTAL (test code = 2207) 0.3 MG/DL ALKALINE PHOSPHATASE (test code = 2204) 97 U/L AST (test code = 2218) 35 U/L ALT (test code = 2219) 44 U/L Toney RennerLIPID [id number] 00:00:00* Test Item Value Reference Range Interpretation Comme nts CHOLESTEROL (test code = 2210) 192 MG/DL TRIGLYCERIDES (test code = 2232) 149 MG/DL HDL CHOLESTEROL (test code = 2220) 45 MG/DL CALC LDL CHOL (test code = 2237) 121 MG/DL RISK RATIO LDL/HDL (test cod e = 2238) 2.69 RATIO Toney Morris [id number] 04:38:13* Test Item Value Reference Range Interpretation Comme nts TROPONIN I (test code = [id number]) 0.003 ng/mL <=0.034 FIOR (test code = FIOR) Reference (Normal) Range (defined by the 99th percentile reference limit): <= 0.034 ng/mL Note: Cardiac troponin begins to rise 3-4 hours after the onset of ischemia. Repeat in 4-6 hours if the sample was drawn within 3-4 hours of the onset of the symptom and found normal. Diagnosis of myocardial injury is made with acute changes in cTn concentrations with at least one serial sample above the 99th percentile upper reference limit (URL), taken together with the patient's clinical presentation. Biotin has been reported to cause a negative bias, interpret results relative to patient's use of biotin. Lab Interpretation (test code = 96663-8) [facility] [id number] 03:48:45* Test Item Value Reference Range Interpretation Comme [facility] NT-proBNP (test code = 7094345807) 111 pg/mL <=125 FIOR (test code = FIOR) Biotin has been reported to cause a negative bias, interpret results relative to patient's use of biotin. Lab Interpretation (test code = 39705-9) Normal [facility] [id number] 01:33:33* Test Item Value Reference Range Interpretation Comme nts TROPONIN I (test code = 0442116081) 0.004 ng/mL <=0.034 FOIR (test code = FIOR) Reference (Normal) Range (defined by the 99th percentile reference limit): <= 0.034 ng/mL Note: Cardiac troponin begins to rise 3-4 hours after the onset of ischemia. Repeat in 4-6 hours if the sample was drawn within 3-4 hours of the onset of the symptom and found normal. Diagnosis of myocardial injury is made with acute changes in cTn concentrations with at least one serial sample above the 99th percentile upper reference limit (URL), taken together with the patient's clinical presentation. Biotin has been reported to cause a negative bias, interpret results relative to patient's use of biotin. Lab Interpretation (test code = 13166-7) [facility] + [id number] 01:30:16* Test Item Value Reference Range Interpretation Comme nts CK (test code = 1453055960) 52 U/L 33-194 CK-MB (test code = 7529380110) 0.96 ng/mL <=3.50 CKMB INDEX (test code = 3672604213) 1.8 % 0.0-4.0 FIOR (test code = FIOR) Biotin has been reported to cause a negative bias, interpret results relative to patient's use of biotin. Lab Interpretation (test code = 91004-3) [facility]OLIC PANEL (89930)2023-03-12 01:21:56* Test Item Value Reference Range Interpretation Comme nts NA (test code = 0886925397) 140 mmol/L 135-145 K (test code = 7671186553) 4.3 mmol/L 3.5-5.0 CL (test code = 3883648900) 104 mmol/L 98-108 CO2 TOTAL (test code = 6603842422) 26 mmol/L 23-31 AGAP (test code = 1988424186) 10 2-16 BUN (test code = 7716860473) 19 mg/dL 7-23 GLUCOSE (test code = 5970584258) 107 mg/dL 70-110 CREATININE (test code = 4870272274) 0.48 mg/dL 0.50-1.04 L TOTAL BILI (test code = 1500835976) 0.7 mg/dL 0.1-1.1 CALCIUM (test code = 7712822981) 9.6 mg/dL 8.6-10.6 T PROTEIN (test code = 0812980030) 7.7 g/dL 6.3-8.2 ALBUMIN (test code = 2401268778) 4.2 g/dL 3.5-5.0 ALK PHOS (test code = 3444147829) 75 U/L 34-122 ALTv (test code = 1742-6) 49 U/L 5-35 H AST(SGOT) (test code = 9879037892) 44 U/L 13-40 H eGFR (test code = 5495750886) 127.5 mL/min/1.73m2 FIOR (test code = FIOR) Association of Glomerular Filtration Rate (GFR) and Staging of Kidney Disease* + --+ --+ ------+| GFR (mL/min/1.73 m2) ?| With Kidney Damage ?| ?Without Kidney Damage+ --------+ --------+ +| ?>90 ?| ?Stage one ?| ? Normal ?+ ---+ ---+ -------+| ?60-89 ?| ?Stage two ?| ? Decreased GFR ? + --+ --+ ------+| ?30-59 ?| ?Stage three ?| ? Stage three ? + --+ --+ ------+| ?15-29 ?| ?Stage four ? | ? Stage four ?+ ---+ ---+ -------+| ?<15 (or dialysis) ? ?| ?Stage five ? | ? Stage five ?+ ---+ ---+ -------+ *Each stage assumes the associated GFR level has been in effect for at least three months. ?Stages 1 to 5, with or without kidney disease, indicate chronic kidney disease. Notes: Determination of stages one and two (with eGFR >59mL/min/1.73 m2) requires estimation of kidney damage for at least three months as defined by structural or functional abnormalities of the kidney, manifested by either:Pathological abnormalities or Markers of kidney damage (including abnormalities in the composition of the blood or urine or abnormalities in imaging tests). Lab Interpretation (test code = 57507-7) Abnormal [facility] 01:21:36* Test Item Value Reference Range Interpretation Comme nts LIPASE (test code = 2934784023) 114 U/L 0-220 Lab Interpretation (test cod e = 01186-0) Normal [facility] WITH [id number] 01:11:52* Test Item Value Reference Range Interpretation Comme nts WBC (test code = 6690-2) 8.90 See_Comment [Automated eGyma ge] The system which generated this result transmitted reference range: 4.30 - 11.10 10*3/?L. The reference range was not used to interpret this result as normal/abnormal. RBC (test code = 789-8) 4.55 See_Comment [Automated eGyma ge] The system which generated this result transmitted reference range: 3.93 - 5.25 10*6/?L. The reference range was not used to interpret this result as normal/abnormal. HGB (test code = 718-7) 13.0 g/dL 11.6-15.0 HCT (test code = 4544-3) 40.5 % 35.7-45.2 MCV (test code = 787-2) 89.0 fL 80.6-95.5 MCH (test code = 785-6) 28.6 pg 25.9-32.8 MCHC (test code = 786-4) 32.1 g/dL 31.6-35.1 RDW-SD (test code = 79233-4) 43.5 fL 39.0-49.9 RDW-CV (test code = 788-0) 13.3 % 12.0-15.5 PLT (test code = 777-3) 212 See_Comment [Automated eGyma ge] The system which generated this result transmitted reference range: 166 - 358 10*3/?L. The reference range was not used to interpret this result as normal/abnormal. MPV (test code = 06386-5) 11.4 fL 9.5-12.9 NRBC/100 WBC (test code = 4332041050) 0.0 See_Comment [Automated Square ssage] The system which generated this result transmitted reference range: 0.0 - 10.0 /100 WBCs. The reference range was not used to interpret this result as normal/abnormal. NRBC x10^3 (test code = 1652571131) See_Comment [Automated eGyma ge] The system which generated this result transmitted reference range: 10*3/?L. The reference range was not used to interpret this result as normal/abnormal. GRAN MAT (NEUT) % (test code = 770-8) 45.6 % IMM GRAN % (test code = 0301720890) 0.40 % LYMPH % (test code = 736-9) 41.9 % MONO % (test code = 5905-5) 8.1 % EOS % (test code = 713-8) 3.6 % BASO % (test code = 706-2) 0.4 % GRAN MAT x10^3(ANC) (test code = 4889478595) 4.05 10*3/uL 1.88-7.09 IMM GRAN x10^3 (test code = 8962817628) 0.04 10*3/uL 0.00-0.06 LYMPH x10^3 (test code = 731-0) 3.73 10*3/uL 1.32-3.29 H MONO x10^3 (test code = 742-7) 0.72 10*3/uL 0.33-0.92 EOS x10^3 (test code = 711-2) 0.32 10*3/uL 0.03-0.39 BASO x10^3 (test code = 704-7) 0.04 10*3/uL 0.01-0.07 Lab Interpretation (test code = 55845-3) Abnormal [facility] [id number] 21:58:23* Test Item Value Reference Range Interpretation Comme nts HEMOGLOBIN A1c (test code = 69265) 10.0 % 4.2-5.6 H [employer] GUIDELINES FOR HGB A1C: PREDIABETES/INCREASED RISK . . . . . . . 5.7-6.4% DIAGNOSIS OF DIABETES . . . . . . . . . >=6.5% WITH CONFIRMATION OR APPROPRIATE SYMPTOMS NOTE: ASSAY MAY BE AFFECTED BY HEMOGLOBINOPATHIES (SICKLE CELL ANEMIA, S-C DISEASE, OTHERS) OR ARTIFICIALLY LOWERED BY DECREASED RED CELL SURVIVAL (HEMOLYTIC ANEMIAS, BLOOD LOSS, ETC.). CONSIDER ALTERNATE TESTING OR LABORATORY CONSULTATION. HEMOGLOBIN [id number] 00:00:00* Test Item Value Reference Range Interpretation Comme nts HEMOGLOBIN A1c (test code = 47278) 10.0 % Toney Cowan AustinLIPID [id number] 06:17:57* Test Item Value Reference Range Interpretation Comme nts CHOLESTEROL (test code = 2210) 219 MG/DL <200 H TRIGLYCERIDES (test code = 2232) 137 MG/DL <150 HDL CHOLESTEROL (test code = 2220) 49 MG/DL >39 CALC LDL CHOL (test code = 2236) 144 MG/DL <100 H NOTE: CALCULATED LDL IS BASED ON SANDRA-TELLO METHOD WHICHINCLUDES ADJUSTABLE TRIGLYCERIDE:VLDL CHOLESTEROL RATIO.THIS FACTOR VARIES BY MEASURED TRIGLYCERIDE AND NON-HDLCHOLESTEROL CONCENTRATIONS WITH INCREASED CALCULATED LDL SEENIN HIGHER TRIGLYCERIDE OR LOWER NON-HDL SPECIMENS. FOR MOREINFORMATION, SEE CLIENT ANNOUNCEMENT AT [email or web address] [email or web address] RATIO LDL/HDL (test code = 2237) 2.94 RATIO <3.22 COMPREHENSIVE METABOLIC [id number] 06:17:57* Test Item Value Reference Range Interpretation Comme nts GLUCOSE (test code = 2216) 195 MG/DL 70-99 H BUN (test code = 2207) 12 MG/DL 8-23 CREATININE (test code = 221) 0.52 MG/DL 0.60-1.30 L eGFR (2020 CKD-EPI) (test code = 63644) 99 ML/MIN/1.73 >60 CALC BUN/CREAT (test code = 2235) 23 RATIO 6-28 SODIUM (test code = 223) 143 MEQ/L 133-146 POTASSIUM (test code = 2228) 4.3 MEQ/L 3.5-5.4 CHLORIDE (test code = 2215) 104 MEQ/L 95-107 CARBON DIOXIDE (test code = 2206) 26 MEQ/L 19-31 CALCIUM (test code = 2209) 10.1 MG/DL 8.5-10.5 PROTEIN, TOTAL (test code = 2228) 7.1 G/DL 6.1-8.3 ALBUMIN (test code = 2200) 4.2 G/DL 3.5-5.2 CALC GLOBULIN (test code = 2240) 2.9 G/DL 1.9-3.7 CALC A/G RATIO (test code = 223) 1.4 RATIO 1.0-2.6 BILIRUBIN, TOTAL (test code = 2206) 0.2 MG/DL See_Comment [Automated me ssage] The system which generated this result transmitted reference range: <=1.2. The reference range was not used to interpret this result as normal/abnormal. ALKALINE PHOSPHATASE (test code = 2203) 102 U/L 40-142 AST (test code = 2218) 26 U/L 9-40 ALT (test code = 2219) 29 U/L 5-40 [facility] has impo rtant pathology staff changes effective 12/25/2022. New pathology staff will provide uninterrupted, excellent patient care and clinical consultation. See URL: [email or web address]. UNLESS OTHERWISE INDICATED, ALL TESTING PERFORMED AT [facility] [address] [place] [address] TRANSMISSION ASSEMBLER: LILA SHANNON M.D. [place] NUMBER [id number] [facility] [place]. [id number] LIPID [id number] 00:00:00* Test Item Value Reference Range Interpretation Comme nts CHOLESTEROL (test code = 2210) 219 MG/DL TRIGLYCERIDES (test code = 2232) 137 MG/DL HDL CHOLESTEROL (test code = 2220) 49 MG/DL CALC LDL CHOL (test code = 2237) 144 MG/DL RISK RATIO LDL/HDL (test cod e = 2238) 2.94 RATIO Toney RennerCOMPREHENSIVE METABOLIC [id number] 00:00:00* Test Item Value Reference Range Interpretation Comme nts GLUCOSE (test code = 2217) 195 MG/DL BUN (test code = 2208) 12 MG/DL CREATININE (test code = 2214) 0.52 MG/DL eGFR (2020 CKD-EPI) (test co de = 06986) 99 ML/MIN/1.73 CALC BUN/CREAT (test code = 2235) 23 RATIO SODIUM (test code = 2231) 143 MEQ/L POTASSIUM (test code = 2228) 4.3 MEQ/L CHLORIDE (test code = 2215) 104 MEQ/L CARBON DIOXIDE (test code = 2206) 26 MEQ/L CALCIUM (test code = 2209) 10.1 MG/DL PROTEIN, TOTAL (test code = 2229) 7.1 G/DL ALBUMIN (test code = 2201) 4.2 G/DL CALC GLOBULIN (test code = 2240) 2.9 G/DL CALC A/G RATIO (test code = 2234) 1.4 RATIO BILIRUBIN, TOTAL (test code = 2207) 0.2 MG/DL ALKALINE PHOSPHATASE (test code = 2204) 102 U/L AST (test code = 2218) 26 U/L ALT (test code = 2219) 29 U/L Toney F [facility] METABOLIC PANEL (NA, K, CL, CO2, GLUCOSE, BUN, CREATININE, CA)2022-11-21 13:11:20* Test Item Value Reference Range Interpretation Comme nts NA (test code = 4224929460) 142 mmol/L 135-145 K (test code = 1643727386) 3.7 mmol/L 3.5-5.0 CL (test code = 0707105758) 106 mmol/L 98-108 CO2 TOTAL (test code = 3893927517) 27 mmol/L 23-31 AGAP (test code = 8290633239) 2-16 BUN (test code = 0677995050) 14 mg/dL 7-23 GLUCOSE (test code = 8953754577) 209 mg/dL 70-110 H CREATININE (test code = 1215300168) 0.49 mg/dL 0.50-1.04 L CALCIUM (test code = 7433021489) 8.9 mg/dL 8.6-10.6 eGFR (test code = 5109302881) mL/min/1.73m2 FIOR (test code = FIOR) Association of Glomerular Filtration Rate (GFR) and Staging of Kidney Disease* + --+ --+ ------+| GFR (mL/min/1.73 m2) ?| With Kidney Damage ?| ?Without Kidney Damage+ --------+ --------+ +| ?>90 ?| ?Stage one ?| ? Normal ?+ ---+ ---+ -------+| ?60-89 ?| ?Stage two ?| ? Decreased GFR ? + --+ --+ ------+| ?30-59 ?| ?Stage three ?| ? Stage three ? + --+ --+ ------+| ?15-29 ?| ?Stage four ? | ? Stage four ?+ ---+ ---+ -------+| ?<15 (or dialysis) ? ?| ?Stage five ? | ? Stage five ?+ ---+ ---+ -------+ *Each stage assumes the associated GFR level has been in effect for at least three months. ?Stages 1 to 5, with or without kidney disease, indicate chronic kidney disease. Notes: Determination of stages one and two (with eGFR >59mL/min/1.73 m2) requires estimation of kidney damage for at least three months as defined by structural or functional abnormalities of the kidney, manifested by either:Pathological abnormalities or Markers of kidney damage (including abnormalities in the composition of the blood or urine or abnormalities in imaging tests). Lab Interpretation (test code = 83204-5) Abnormal [facility] METABOLIC PANEL (NA, K, CL, CO2, GLUCOSE, BUN, CREATININE, CA)2022-11-21 13:11:20* Test Item Value Reference Range Interpretation Comme nts NA (test code = 7038981887) 142 mmol/L 135-145 K (test code = 0986963454) 3.7 mmol/L 3.5-5.0 CL (test code = 9275851105) 106 mmol/L 98-108 CO2 TOTAL (test code = 7762727276) 27 mmol/L 23-31 AGAP (test code = 9368830641) 2-16 BUN (test code = 3260474747) 14 mg/dL 7-23 GLUCOSE (test code = 4387150362) 209 mg/dL 70-110 H CREATININE (test code = 1800747975) 0.49 mg/dL 0.50-1.04 L CALCIUM (test code = 1474071636) 8.9 mg/dL 8.6-10.6 eGFR (test code = 8512256658) mL/min/1.73m2 FIOR (test code = FIOR) Association of Glomerular Filtration Rate (GFR) and Staging of Kidney Disease* + --+ --+ ------+| GFR (mL/min/1.73 m2) ?| With Kidney Damage ?| ?Without Kidney Damage+ --------+ --------+ +| ?>90 ?| ?Stage one ?| ? Normal ?+ ---+ ---+ -------+| ?60-89 ?| ?Stage two ?| ? Decreased GFR ? + --+ --+ ------+| ?30-59 ?| ?Stage three ?| ? Stage three ? + --+ --+ ------+| ?15-29 ?| ?Stage four ? | ? Stage four ?+ ---+ ---+ -------+| ?<15 (or dialysis) ? ?| ?Stage five ? | ? Stage five ?+ ---+ ---+ -------+ *Each stage assumes the associated GFR level has been in effect for at least three months. ?Stages 1 to 5, with or without kidney disease, indicate chronic kidney disease. Notes: Determination of stages one and two (with eGFR >59mL/min/1.73 m2) requires estimation of kidney damage for at least three months as defined by structural or functional abnormalities of the kidney, manifested by either:Pathological abnormalities or Markers of kidney damage (including abnormalities in the composition of the blood or urine or abnormalities in imaging tests). Lab Interpretation (test code = 13073-4) [facility]normal [facility] / [id number] 13:03:21* Test Item Value Reference Range Interpretation Comme [facility] PROTIME PATIENT (test code = 5964-2) See_Comment [Automated [email or web address].it] The system which generated this result transmitted reference range: 10.1 - 12.6 Seconds. The reference range was not used to interpret this result as normal/abnormal. INR (test code = 6301-6) Normal INR <1.1; Warfarin Therapeutic range 2.0 to 3.0 or 2.5 to 3.5, depending upon the indications. Lab Interpretation (test code = 55880-4) Normal [facility] / [id number] 13:03:21* Test Item Value Reference Range Interpretation Comme nts PROTIME PATIENT (test code = 5964-2) See_Comment [[employer]] The system which generated this result transmitted reference range: 10.1 - 12.6 Seconds. The reference range was not used to interpret this result as normal/abnormal. INR (test code = 6301-6) Normal INR <1.1; Warfarin Therapeutic range 2.0 to 3.0 or 2.5 to 3.5, depending upon the indications. Lab Interpretation (test code = 08322-8) Normal [facility] [id number] 13:00:20* Test Item Value Reference Range Interpretation Comme nts WBC (test code = 6690-2) See_Comment [[employer]] The system which generated this result transmitted reference range: 4.30 - 11.10 10*3/?L. The reference range was not used to interpret this result as normal/abnormal. RBC (test code = 789-8) See_Comment [Automated eGyma ge] The system which generated this result transmitted reference range: 3.93 - 5.25 10*6/?L. The reference range was not used to interpret this result as normal/abnormal. HGB (test code = 718-7) 13.2 g/dL 11.6-15.0 HCT (test code = 4544-3) 41.1 % 35.7-45.2 MCV (test code = 787-2) 90.7 fL 80.6-95.5 MCH (test code = 785-6) 29.1 pg 25.9-32.8 MCHC (test code = 786-4) 32.1 g/dL 31.6-35.1 RDW-SD (test code = 72577-4) 45.9 fL 39.0-49.9 RDW-CV (test code = 788-0) 13.8 % 12.0-15.5 PLT (test code = 777-3) See_Comment [Automated eGyma [employer]] The system which generated this result transmitted reference range: 166 - 358 10*3/?L. The reference range was not used to interpret this result as normal/abnormal. MPV (test code = 73537-9) 11.3 fL 9.5-12.9 NRBC/100 WBC (test code = 0689720053) See_Comment [Automated [employer]] The system which generated this result transmitted reference range: 0.0 - 10.0 /100 WBCs. The reference range was not used to interpret this result as normal/abnormal. NRBC x10^3 (test code = 5993869261) See_Comment [Automated [employer]] The system which generated this result transmitted reference range: 10*3/?L. The reference range was not used to interpret this result as normal/abnormal. GRAN MAT (NEUT) % (test code = 770-8) 49.8 % IMM GRAN % (test code = 9932267612) 0.50 % LYMPH % (test code = 736-9) 33.3 % MONO % (test code = 5905-5) 10.5 % EOS % (test code = 713-8) 5.0 % BASO % (test code = 706-2) 0.9 % GRAN MAT x10^3(ANC) (test code = 7522476815) 3.27 10*3/uL 1.88-7.09 IMM GRAN x10^3 (test code = 9604457520) 0.03 10*3/uL 0.00-0.06 LYMPH x10^3 (test code = 731-0) 2.19 10*3/uL 1.32-3.29 MONO x10^3 (test code = 742-7) 0.69 10*3/uL 0.33-0.92 EOS x10^3 (test code = 711-2) 0.33 10*3/uL 0.03-0.39 BASO x10^3 (test code = 704-7) 0.06 10*3/uL 0.01-0.07 [facility] WITH [id number] 13:00:20* Test Item Value Reference Range Interpretation Comme nts WBC (test code = 6690-2) See_Comment [Automated messa ge] The system which generated this result transmitted reference range: 4.30 - 11.10 10*3/?L. The reference range was not used to interpret this result as normal/abnormal. RBC (test code = 789-8) See_Comment [Automated eGyma ge] The system which generated this result transmitted reference range: 3.93 - 5.25 10*6/?L. The reference range was not used to interpret this result as normal/abnormal. HGB (test code = 718-7) 13.2 g/dL 11.6-15.0 HCT (test code = 4544-3) 41.1 % 35.7-45.2 MCV (test code = 787-2) 90.7 fL 80.6-95.5 MCH (test code = 785-6) 29.1 pg 25.9-32.8 MCHC (test code = 786-4) 32.1 g/dL 31.6-35.1 RDW-SD (test code = 62945-2) 45.9 fL 39.0-49.9 RDW-CV (test code = 788-0) 13.8 % 12.0-15.5 PLT (test code = 777-3) See_Comment [Automated eGyma ge] The system which generated this result transmitted reference range: 166 - 358 10*3/?L. The reference range was not used to interpret this result as normal/abnormal. MPV (test code = 19046-2) 11.3 fL 9.5-12.9 NRBC/100 WBC (test code = 9958393927) See_Comment [Automated me ssage] The system which generated this result transmitted reference range: 0.0 - 10.0 /100 WBCs. The reference range was not used to interpret this result as normal/abnormal. NRBC x10^3 (test code = 1517705706) See_Comment [Automated me ssage] The system which generated this result transmitted reference range: 10*3/?L. The reference range was not used to interpret this result as normal/abnormal. GRAN MAT (NEUT) % (test code = 770-8) 49.8 % IMM GRAN % (test code = 2974771841) 0.50 % LYMPH % (test code = 736-9) 33.3 % MONO % (test code = 5905-5) 10.5 % EOS % (test code = 713-8) 5.0 % BASO % (test code = 706-2) 0.9 % GRAN MAT x10^3(ANC) (test code = 6788869304) 3.27 10*3/uL 1.88-7.09 IMM GRAN x10^3 (test code = 8983280395) 0.03 10*3/uL 0.00-0.06 LYMPH x10^3 (test code = 731-0) 2.19 10*3/uL 1.32-3.29 MONO x10^3 (test code = 742-7) 0.69 10*3/uL 0.33-0.92 EOS x10^3 (test code = 711-2) 0.33 10*3/uL 0.03-0.39 BASO x10^3 (test code = 704-7) 0.06 10*3/uL 0.01-0.07 [facility] [id number] 06:36:16* Test Item Value Reference Range Interpretation Comme nts HEMOGLOBIN A1c (test code = 26727) 9.6 % 4.2-5.6 H [employer] GUIDELINES FOR HGB A1C: PREDIABETES/INCREASED RISK . . . . . . . 5.7-6.4% DIAGNOSIS OF DIABETES . . . . . . . . . >=6.5% WITH CONFIRMATION OR APPROPRIATE SYMPTOMS NOTE: ASSAY MAY BE AFFECTED BY HEMOGLOBINOPATHIES (SICKLE CELL ANEMIA, S-C DISEASE, OTHERS) OR ARTIFICIALLY LOWERED BY DECREASED RED CELL SURVIVAL (HEMOLYTIC ANEMIAS, BLOOD LOSS, ETC.). CONSIDER ALTERNATE TESTING OR LABORATORY CONSULTATION. CBC W/AUTO DIFF WITH [id number] 06:04:53* Test Item Value Reference Range Interpretation Comme nts WBC (test code = 1001) 7.5 K/UL 3.5-11.0 RBC (test code = 1002) 4.55 M/UL 3.80-5.40 HEMOGLOBIN (test code = 1003) 13.3 G/DL 11.5-15.5 HEMATOCRIT (test code = 1004) 39.8 % 34.0-45.0 MCV (test code = 1005) 87.5 fL 80.0-99.0 MCH (test code = 1006) 29.2 PG 25.0-33.0 MCHC (test code = 1007) 33.4 G/DL 31.0-36.0 RDW (test code = 1038) 12.7 % 11.5-15.0 NEUTROPHILS (test code = 1008) 47.8 % LYMPHOCYTES (test code = 1010) 39.5 % MONOCYTES (test code = 1011) 7.8 % EOSINOPHILS (test code = 1012) 4.0 % BASOPHILS (test code = 1013) 0.8 % IMMATURE GRANULOCYTES (test code = 1036) 0.1 % NUCLEATED RBCS (test code = 1065) 0.0 /100 WBC'S See_Comment [Automated eGyma ge] The system which generated this result transmitted reference range: 0.0. The reference range was not used to interpret this result as normal/abnormal. PLATELET COUNT (test code = 1015) 226 K/UL 130-400 ABSOLUTE NEUTROPHILS (test code = 1066) 3.59 K/UL 1.50-7.50 ABSOLUTE LYMPHOCYTES (test code = 1067) 2.97 K/UL 1.00-4.00 ABSOLUTE MONOCYTES (test code = 1068) 0.59 K/UL 0.20-1.00 ABSOLUTE EOSINOPHILS (test code = 1040) 0.30 K/UL 0.00-0.50 ABSOLUTE BASOPHILS (test code = 1069) 0.06 K/UL 0.00-0.20 ABS IMMATURE GRANULOCYTES (test code = 1020) 0.01 K/UL 0.00-0.10 ABS NUCLEATED RBCS (test code = 66123) 0.00 K/UL 0.00-0.11 [id number] 04:35:36* Test Item Value Reference Range Interpretation Comme nts RPR RESULT (test code = 3501) NON-REACTIVE NON-REACTIVE RPR TITER (test code = 3500) NOT INDIC. TITER NOT INDIC. VITAMIN [id number] 03:46:59* Test Item Value Reference Range Interpretation Comme nts VITAMIN B-12 (test code = 2840) 510 PG/ML 200-950 UNLESS OTHERWISE INDICATED, ALL TESTING PERFORMED [facility] [employer] [address] [place] [address] TRANSMISSION ASSEMBLER: JENNIFER BECKMAN M.D. CLIA NUMBER [id number] [facility] [place]. [id number] 00:00:00* Test Item Value Reference Range Interpretation Comme nts RPR RESULT (test code = 3501) NON-REACTIVE RPR TITER (test code = 3500) NOT INDIC. TITER Toney RennerVITAMIN [id number] 00:00:00* Test Item Value Reference Range Interpretation Comme nts VITAMIN B-12 (test code = 2840) 510 PG/ML Toney RennerCBC W/AUTO [id number] 00:00:00* Test Item Value Reference Range Interpretation Comme nts WBC (test code = 1001) 7.5 K/UL RBC (test code = 1002) 4.55 M/UL HEMOGLOBIN (test code = 1003) 13.3 G/DL HEMATOCRIT (test code = 1004) 39.8 % MCV (test code = 1005) 87.5 fL MCH (test code = 1006) 29.2 PG MCHC (test code = 1007) 33.4 G/DL RDW (test code = 1038) 12.7 % NEUTROPHILS (test code = 1008) 47.8 % LYMPHOCYTES (test code = 1010) 39.5 % MONOCYTES (test code = 1011) 7.8 % EOSINOPHILS (test code = 1012) 4.0 % BASOPHILS (test code = 1013) 0.8 % IMMATURE GRANULOCYTES (test code = 1036) 0.1 % NUCLEATED RBCS (test code = 1065) 0.0 /100WBC'S PLATELET COUNT (test code = 1015) 226 K/UL ABSOLUTE NEUTROPHILS (test c ode = 1066) 3.59 K/UL ABSOLUTE LYMPHOCYTES (test c ode = 1067) 2.97 K/UL ABSOLUTE MONOCYTES (test cod e = 1068) 0.59 K/UL ABSOLUTE EOSINOPHILS (test c ode = 1040) 0.30 K/UL ABSOLUTE BASOPHILS (test cod e = 1069) 0.06 K/UL ABS IMMATURE GRANULOCYTES (t est code = 1020) 0.01 K/UL ABS NUCLEATED RBCS (test cod e = 87043) 0.00 K/UL Toney Cowan [facility] W/AUTO [id number] 00:00:00* Test Item Value Reference Range Interpretation Comme nts WBC (test code = 1001) 7.5 K/UL RBC (test code = 1002) 4.55 M/UL HEMOGLOBIN (test code = 1003) 13.3 G/DL HEMATOCRIT (test code = 1004) 39.8 % MCV (test code = 1005) 87.5 fL MCH (test code = 1006) 29.2 PG MCHC (test code = 1007) 33.4 G/DL RDW (test code = 1038) 12.7 % NEUTROPHILS (test code = 1008) 47.8 % LYMPHOCYTES (test code = 1010) 39.5 % MONOCYTES (test code = 1011) 7.8 % EOSINOPHILS (test code = 1012) 4.0 % BASOPHILS (test code = 1013) 0.8 % IMMATURE GRANULOCYTES (test code = 1036) 0.1 % NUCLEATED RBCS (test code = 1065) 0.0 /100WBC'S PLATELET COUNT (test code = 1015) 226 K/UL ABSOLUTE NEUTROPHILS (test c ode = 1066) 3.59 K/UL ABSOLUTE LYMPHOCYTES (test c ode = 1067) 2.97 K/UL ABSOLUTE MONOCYTES (test cod e = 1068) 0.59 K/UL ABSOLUTE EOSINOPHILS (test c ode = 1040) 0.30 K/UL ABSOLUTE BASOPHILS (test cod e = 1069) 0.06 K/UL ABS IMMATURE GRANULOCYTES (t est code = 1020) 0.01 K/UL ABS NUCLEATED RBCS (test cod e = 17771) 0.00 K/UL CBC W/AUTO [id number] 00:00:00* Test Item Value Reference Range Interpretation Comme nts WBC (test code = 1001) 7.5 K/UL RBC (test code = 1002) 4.55 M/UL HEMOGLOBIN (test code = 1003) 13.3 G/DL HEMATOCRIT (test code = 1004) 39.8 % MCV (test code = 1005) 87.5 fL MCH (test code = 1006) 29.2 PG MCHC (test code = 1007) 33.4 G/DL RDW (test code = 1038) 12.7 % NEUTROPHILS (test code = 1008) 47.8 % LYMPHOCYTES (test code = 1010) 39.5 % MONOCYTES (test code = 1011) 7.8 % EOSINOPHILS (test code = 1012) 4.0 % BASOPHILS (test code = 1013) 0.8 % IMMATURE GRANULOCYTES (test code = 1036) 0.1 % NUCLEATED RBCS (test code = 1065) 0.0 /100WBC'S PLATELET COUNT (test code = 1015) 226 K/UL ABSOLUTE NEUTROPHILS (test c ode = 1066) 3.59 K/UL ABSOLUTE LYMPHOCYTES (test c ode = 1067) 2.97 K/UL ABSOLUTE MONOCYTES (test cod e = 1068) 0.59 K/UL ABSOLUTE EOSINOPHILS (test c ode = 1040) 0.30 K/UL ABSOLUTE BASOPHILS (test cod e = 1069) 0.06 K/UL ABS IMMATURE GRANULOCYTES (t est code = 1020) 0.01 K/UL ABS NUCLEATED RBCS (test cod e = 97009) 0.00 K/UL CBC W/AUTO [id number] 00:00:00* Test Item Value Reference Range Interpretation Comme nts WBC (test code = 1001) 7.5 K/UL RBC (test code = 1002) 4.55 M/UL HEMOGLOBIN (test code = 1003) 13.3 G/DL HEMATOCRIT (test code = 1004) 39.8 % MCV (test code = 1005) 87.5 fL MCH (test code = 1006) 29.2 PG MCHC (test code = 1007) 33.4 G/DL RDW (test code = 1038) 12.7 % NEUTROPHILS (test code = 1008) 47.8 % LYMPHOCYTES (test code = 1010) 39.5 % MONOCYTES (test code = 1011) 7.8 % EOSINOPHILS (test code = 1012) 4.0 % BASOPHILS (test code = 1013) 0.8 % IMMATURE GRANULOCYTES (test code = 1036) 0.1 % NUCLEATED RBCS (test code = 1065) 0.0 /100WBC'S PLATELET COUNT (test code = 1015) 226 K/UL ABSOLUTE NEUTROPHILS (test c ode = 1066) 3.59 K/UL ABSOLUTE LYMPHOCYTES (test c ode = 1067) 2.97 K/UL ABSOLUTE MONOCYTES (test cod e = 1068) 0.59 K/UL ABSOLUTE EOSINOPHILS (test c ode = 1040) 0.30 K/UL ABSOLUTE BASOPHILS (test cod e = 1069) 0.06 K/UL ABS IMMATURE GRANULOCYTES (t est code = 1020) 0.01 K/UL ABS NUCLEATED RBCS (test cod e = 85934) 0.00 K/UL HEMOGLOBIN [id number] 00:00:00* Test Item Value Reference Range Interpretation Comme nts HEMOGLOBIN A1c (test code = 94968) 9.6 % HEMOGLOBIN [id number] 00:00:00* Test Item Value Reference Range Interpretation Comme nts HEMOGLOBIN A1c (test code = 51282) 9.6 % HEMOGLOBIN [id number] 00:00:00* Test Item Value Reference Range Interpretation Comme nts HEMOGLOBIN A1c (test code = 76119) 9.6 % [id number] 00:00:00* Test Item Value Reference Range Interpretation Comme nts RPR RESULT (test code = 3501) NON-REACTIVE RPR TITER (test code = 3500) NOT INDIC. TITER [id number] 00:00:00* Test Item Value Reference Range Interpretation Comme nts RPR RESULT (test code = 3501) NON-REACTIVE RPR TITER (test code = 3500) NOT INDIC. TITER [id number] 00:00:00* Test Item Value Reference Range Interpretation Comme nts RPR RESULT (test code = 3501) NON-REACTIVE RPR TITER (test code = 3500) NOT INDIC. TITER VITAMIN [id number] 00:00:00* Test Item Value Reference Range Interpretation Comme nts VITAMIN B-12 (test code = 2840) 510 PG/ML VITAMIN [id number] 00:00:00* Test Item Value Reference Range Interpretation Comme nts VITAMIN B-12 (test code = 2840) 510 PG/ML VITAMIN [id number] 00:00:00* Test Item Value Reference Range Interpretation Comme nts VITAMIN B-12 (test code = 2840) 510 PG/ML CBC W/AUTO [id number] 00:00:00* Test Item Value Reference Range Interpretation Comme nts WBC (test code = 1001) 7.5 K/UL RBC (test code = 1002) 4.55 M/UL HEMOGLOBIN (test code = 1003) 13.3 G/DL HEMATOCRIT (test code = 1004) 39.8 % MCV (test code = 1005) 87.5 fL MCH (test code = 1006) 29.2 PG MCHC (test code = 1007) 33.4 G/DL RDW (test code = 1038) 12.7 % NEUTROPHILS (test code = 1008) 47.8 % LYMPHOCYTES (test code = 1010) 39.5 % MONOCYTES (test code = 1011) 7.8 % EOSINOPHILS (test code = 1012) 4.0 % BASOPHILS (test code = 1013) 0.8 % IMMATURE GRANULOCYTES (test code = 1036) 0.1 % NUCLEATED RBCS (test code = 1065) 0.0 /100WBC'S PLATELET COUNT (test code = 1015) 226 K/UL ABSOLUTE NEUTROPHILS (test c ode = 1066) 3.59 K/UL ABSOLUTE LYMPHOCYTES (test c ode = 1067) 2.97 K/UL ABSOLUTE MONOCYTES (test cod e = 1068) 0.59 K/UL ABSOLUTE EOSINOPHILS (test c ode = 1040) 0.30 K/UL ABSOLUTE BASOPHILS (test cod e = 1069) 0.06 K/UL ABS IMMATURE GRANULOCYTES (t est code = 1020) 0.01 K/UL ABS NUCLEATED RBCS (test cod e = 37506) 0.00 K/UL CBC W/AUTO [id number] 00:00:00* Test Item Value Reference Range Interpretation Comme nts WBC (test code = 1001) 7.5 K/UL RBC (test code = 1002) 4.55 M/UL HEMOGLOBIN (test code = 1003) 13.3 G/DL HEMATOCRIT (test code = 1004) 39.8 % MCV (test code = 1005) 87.5 fL MCH (test code = 1006) 29.2 PG MCHC (test code = 1007) 33.4 G/DL RDW (test code = 1038) 12.7 % NEUTROPHILS (test code = 1008) 47.8 % LYMPHOCYTES (test code = 1010) 39.5 % MONOCYTES (test code = 1011) 7.8 % EOSINOPHILS (test code = 1012) 4.0 % BASOPHILS (test code = 1013) 0.8 % IMMATURE GRANULOCYTES (test code = 1036) 0.1 % NUCLEATED RBCS (test code = 1065) 0.0 /100WBC'S PLATELET COUNT (test code = 1015) 226 K/UL ABSOLUTE NEUTROPHILS (test c ode = 1066) 3.59 K/UL ABSOLUTE LYMPHOCYTES (test c ode = 1067) 2.97 K/UL ABSOLUTE MONOCYTES (test cod e = 1068) 0.59 K/UL ABSOLUTE EOSINOPHILS (test c ode = 1040) 0.30 K/UL ABSOLUTE BASOPHILS (test cod e = 1069) 0.06 K/UL ABS IMMATURE GRANULOCYTES (t est code = 1020) 0.01 K/UL ABS NUCLEATED RBCS (test cod e = 14440) 0.00 K/UL CBC W/AUTO [id number] 00:00:00* Test Item Value Reference Range Interpretation Comme nts WBC (test code = 1001) 7.5 K/UL RBC (test code = 1002) 4.55 M/UL HEMOGLOBIN (test code = 1003) 13.3 G/DL HEMATOCRIT (test code = 1004) 39.8 % MCV (test code = 1005) 87.5 fL MCH (test code = 1006) 29.2 PG MCHC (test code = 1007) 33.4 G/DL RDW (test code = 1038) 12.7 % NEUTROPHILS (test code = 1008) 47.8 % LYMPHOCYTES (test code = 1010) 39.5 % MONOCYTES (test code = 1011) 7.8 % EOSINOPHILS (test code = 1012) 4.0 % BASOPHILS (test code = 1013) 0.8 % IMMATURE GRANULOCYTES (test code = 1036) 0.1 % NUCLEATED RBCS (test code = 1065) 0.0 /100WBC'S PLATELET COUNT (test code = 1015) 226 K/UL ABSOLUTE NEUTROPHILS (test c ode = 1066) 3.59 K/UL ABSOLUTE LYMPHOCYTES (test c ode = 1067) 2.97 K/UL ABSOLUTE MONOCYTES (test cod e = 1068) 0.59 K/UL ABSOLUTE EOSINOPHILS (test c ode = 1040) 0.30 K/UL ABSOLUTE BASOPHILS (test cod e = 1069) 0.06 K/UL ABS IMMATURE GRANULOCYTES (t est code = 1020) 0.01 K/UL ABS NUCLEATED RBCS (test cod e = 42960) 0.00 K/UL HEMOGLOBIN [id number] 00:00:00* Test Item Value Reference Range Interpretation Comme nts HEMOGLOBIN A1c (test code = 12766) 9.6 % HEMOGLOBIN [id number] 00:00:00* Test Item Value Reference Range Interpretation Comme nts HEMOGLOBIN A1c (test code = 01814) 9.6 % HEMOGLOBIN [id number] 00:00:00* Test Item Value Reference Range Interpretation Comme nts HEMOGLOBIN A1c (test code = 98020) 9.6 % [id number] 00:00:00* Test Item Value Reference Range Interpretation Comme nts RPR RESULT (test code = 3501) NON-REACTIVE RPR TITER (test code = 3500) NOT INDIC. TITER [id number] 00:00:00* Test Item Value Reference Range Interpretation Comme nts RPR RESULT (test code = 3501) NON-REACTIVE RPR TITER (test code = 3500) NOT INDIC. TITER [id number] 00:00:00* Test Item Value Reference Range Interpretation Comme nts RPR RESULT (test code = 3501) NON-REACTIVE RPR TITER (test code = 3500) NOT INDIC. TITER VITAMIN [id number] 00:00:00* Test Item Value Reference Range Interpretation Comme nts VITAMIN B-12 (test code = 2840) 510 PG/ML VITAMIN [id number] 00:00:00* Test Item Value Reference Range Interpretation Comme nts VITAMIN B-12 (test code = 2840) 510 PG/ML VITAMIN [id number] 00:00:00* Test Item Value Reference Range Interpretation Comme nts VITAMIN B-12 (test code = 2840) 510 PG/ML CBC W/AUTO [id number] 00:00:00* Test Item Value Reference Range Interpretation Comme nts WBC (test code = 1001) 7.5 K/UL RBC (test code = 1002) 4.55 M/UL HEMOGLOBIN (test code = 1003) 13.3 G/DL HEMATOCRIT (test code = 1004) 39.8 % MCV (test code = 1005) 87.5 fL MCH (test code = 1006) 29.2 PG MCHC (test code = 1007) 33.4 G/DL RDW (test code = 1038) 12.7 % NEUTROPHILS (test code = 1008) 47.8 % LYMPHOCYTES (test code = 1010) 39.5 % MONOCYTES (test code = 1011) 7.8 % EOSINOPHILS (test code = 1012) 4.0 % BASOPHILS (test code = 1013) 0.8 % IMMATURE GRANULOCYTES (test code = 1036) 0.1 % NUCLEATED RBCS (test code = 1065) 0.0 /100WBC'S PLATELET COUNT (test code = 1015) 226 K/UL ABSOLUTE NEUTROPHILS (test c ode = 1066) 3.59 K/UL ABSOLUTE LYMPHOCYTES (test c ode = 1067) 2.97 K/UL ABSOLUTE MONOCYTES (test cod e = 1068) 0.59 K/UL ABSOLUTE EOSINOPHILS (test c ode = 1040) 0.30 K/UL ABSOLUTE BASOPHILS (test cod e = 1069) 0.06 K/UL ABS IMMATURE GRANULOCYTES (t est code = 1020) 0.01 K/UL ABS NUCLEATED RBCS (test cod e = 54562) 0.00 K/UL CBC W/AUTO [id number] 00:00:00* Test Item Value Reference Range Interpretation Comme nts WBC (test code = 1001) 7.5 K/UL RBC (test code = 1002) 4.55 M/UL HEMOGLOBIN (test code = 1003) 13.3 G/DL HEMATOCRIT (test code = 1004) 39.8 % MCV (test code = 1005) 87.5 fL MCH (test code = 1006) 29.2 PG MCHC (test code = 1007) 33.4 G/DL RDW (test code = 1038) 12.7 % NEUTROPHILS (test code = 1008) 47.8 % LYMPHOCYTES (test code = 1010) 39.5 % MONOCYTES (test code = 1011) 7.8 % EOSINOPHILS (test code = 1012) 4.0 % BASOPHILS (test code = 1013) 0.8 % IMMATURE GRANULOCYTES (test code = 1036) 0.1 % NUCLEATED RBCS (test code = 1065) 0.0 /100WBC'S PLATELET COUNT (test code = 1015) 226 K/UL ABSOLUTE NEUTROPHILS (test c ode = 1066) 3.59 K/UL ABSOLUTE LYMPHOCYTES (test c ode = 1067) 2.97 K/UL ABSOLUTE MONOCYTES (test cod e = 1068) 0.59 K/UL ABSOLUTE EOSINOPHILS (test c ode = 1040) 0.30 K/UL ABSOLUTE BASOPHILS (test cod e = 1069) 0.06 K/UL ABS IMMATURE GRANULOCYTES (t est code = 1020) 0.01 K/UL ABS NUCLEATED RBCS (test cod e = 72828) 0.00 K/UL CBC W/AUTO [id number] 00:00:00* Test Item Value Reference Range Interpretation Comme nts WBC (test code = 1001) 7.5 K/UL RBC (test code = 1002) 4.55 M/UL HEMOGLOBIN (test code = 1003) 13.3 G/DL HEMATOCRIT (test code = 1004) 39.8 % MCV (test code = 1005) 87.5 fL MCH (test code = 1006) 29.2 PG MCHC (test code = 1007) 33.4 G/DL RDW (test code = 1038) 12.7 % NEUTROPHILS (test code = 1008) 47.8 % LYMPHOCYTES (test code = 1010) 39.5 % MONOCYTES (test code = 1011) 7.8 % EOSINOPHILS (test code = 1012) 4.0 % BASOPHILS (test code = 1013) 0.8 % IMMATURE GRANULOCYTES (test code = 1036) 0.1 % NUCLEATED RBCS (test code = 1065) 0.0 /100WBC'S PLATELET COUNT (test code = 1015) 226 K/UL ABSOLUTE NEUTROPHILS (test c ode = 1066) 3.59 K/UL ABSOLUTE LYMPHOCYTES (test c ode = 1067) 2.97 K/UL ABSOLUTE MONOCYTES (test cod e = 1068) 0.59 K/UL ABSOLUTE EOSINOPHILS (test c ode = 1040) 0.30 K/UL ABSOLUTE BASOPHILS (test cod e = 1069) 0.06 K/UL ABS IMMATURE GRANULOCYTES (t est code = 1020) 0.01 K/UL ABS NUCLEATED RBCS (test cod e = 52449) 0.00 K/UL HEMOGLOBIN [id number] 00:00:00* Test Item Value Reference Range Interpretation Comme nts HEMOGLOBIN A1c (test code = 70796) 9.6 % HEMOGLOBIN [id number] 00:00:00* Test Item Value Reference Range Interpretation Comme nts HEMOGLOBIN A1c (test code = 34531) 9.6 % HEMOGLOBIN [id number] 00:00:00* Test Item Value Reference Range Interpretation Comme nts HEMOGLOBIN A1c (test code = 44058) 9.6 % [id number] 00:00:00* Test Item Value Reference Range Interpretation Comme nts RPR RESULT (test code = 3501) NON-REACTIVE RPR TITER (test code = 3500) NOT INDIC. TITER [id number] 00:00:00* Test Item Value Reference Range Interpretation Comme nts RPR RESULT (test code = 3501) NON-REACTIVE RPR TITER (test code = 3500) NOT INDIC. TITER [id number] 00:00:00* Test Item Value Reference Range Interpretation Comme nts RPR RESULT (test code = 3501) NON-REACTIVE RPR TITER (test code = 3500) NOT INDIC. TITER VITAMIN [id number] 00:00:00* Test Item Value Reference Range Interpretation Comme nts VITAMIN B-12 (test code = 2840) 510 PG/ML VITAMIN [id number] 00:00:00* Test Item Value Reference Range Interpretation Comme nts VITAMIN B-12 (test code = 2840) 510 PG/ML VITAMIN [id number] 00:00:00* Test Item Value Reference Range Interpretation Comme nts VITAMIN B-12 (test code = 2840) 510 PG/ML CBC W/AUTO [id number] 00:00:00* Test Item Value Reference Range Interpretation Comme nts WBC (test code = 1001) 7.5 K/UL RBC (test code = 1002) 4.55 M/UL HEMOGLOBIN (test code = 1003) 13.3 G/DL HEMATOCRIT (test code = 1004) 39.8 % MCV (test code = 1005) 87.5 fL MCH (test code = 1006) 29.2 PG MCHC (test code = 1007) 33.4 G/DL RDW (test code = 1038) 12.7 % NEUTROPHILS (test code = 1008) 47.8 % LYMPHOCYTES (test code = 1010) 39.5 % MONOCYTES (test code = 1011) 7.8 % EOSINOPHILS (test code = 1012) 4.0 % BASOPHILS (test code = 1013) 0.8 % IMMATURE GRANULOCYTES (test code = 1036) 0.1 % NUCLEATED RBCS (test code = 1065) 0.0 /100WBC'S PLATELET COUNT (test code = 1015) 226 K/UL ABSOLUTE NEUTROPHILS (test c ode = 1066) 3.59 K/UL ABSOLUTE LYMPHOCYTES (test c ode = 1067) 2.97 K/UL ABSOLUTE MONOCYTES (test cod e = 1068) 0.59 K/UL ABSOLUTE EOSINOPHILS (test c ode = 1040) 0.30 K/UL ABSOLUTE BASOPHILS (test cod e = 1069) 0.06 K/UL ABS IMMATURE GRANULOCYTES (t est code = 1020) 0.01 K/UL ABS NUCLEATED RBCS (test cod e = 94243) 0.00 K/UL CBC W/AUTO [id number] 00:00:00* Test Item Value Reference Range Interpretation Comme nts WBC (test code = 1001) 7.5 K/UL RBC (test code = 1002) 4.55 M/UL HEMOGLOBIN (test code = 1003) 13.3 G/DL HEMATOCRIT (test code = 1004) 39.8 % MCV (test code = 1005) 87.5 fL MCH (test code = 1006) 29.2 PG MCHC (test code = 1007) 33.4 G/DL RDW (test code = 1038) 12.7 % NEUTROPHILS (test code = 1008) 47.8 % LYMPHOCYTES (test code = 1010) 39.5 % MONOCYTES (test code = 1011) 7.8 % EOSINOPHILS (test code = 1012) 4.0 % BASOPHILS (test code = 1013) 0.8 % IMMATURE GRANULOCYTES (test code = 1036) 0.1 % NUCLEATED RBCS (test code = 1065) 0.0 /100WBC'S PLATELET COUNT (test code = 1015) 226 K/UL ABSOLUTE NEUTROPHILS (test c ode = 1066) 3.59 K/UL ABSOLUTE LYMPHOCYTES (test c ode = 1067) 2.97 K/UL ABSOLUTE MONOCYTES (test cod e = 1068) 0.59 K/UL ABSOLUTE EOSINOPHILS (test c ode = 1040) 0.30 K/UL ABSOLUTE BASOPHILS (test cod e = 1069) 0.06 K/UL ABS IMMATURE GRANULOCYTES (t est code = 1020) 0.01 K/UL ABS NUCLEATED RBCS (test cod e = 83989) 0.00 K/UL CBC W/AUTO [id number] 00:00:00* Test Item Value Reference Range Interpretation Comme nts WBC (test code = 1001) 7.5 K/UL RBC (test code = 1002) 4.55 M/UL HEMOGLOBIN (test code = 1003) 13.3 G/DL HEMATOCRIT (test code = 1004) 39.8 % MCV (test code = 1005) 87.5 fL MCH (test code = 1006) 29.2 PG MCHC (test code = 1007) 33.4 G/DL RDW (test code = 1038) 12.7 % NEUTROPHILS (test code = 1008) 47.8 % LYMPHOCYTES (test code = 1010) 39.5 % MONOCYTES (test code = 1011) 7.8 % EOSINOPHILS (test code = 1012) 4.0 % BASOPHILS (test code = 1013) 0.8 % IMMATURE GRANULOCYTES (test code = 1036) 0.1 % NUCLEATED RBCS (test code = 1065) 0.0 /100WBC'S PLATELET COUNT (test code = 1015) 226 K/UL ABSOLUTE NEUTROPHILS (test c ode = 1066) 3.59 K/UL ABSOLUTE LYMPHOCYTES (test c ode = 1067) 2.97 K/UL ABSOLUTE MONOCYTES (test cod e = 1068) 0.59 K/UL ABSOLUTE EOSINOPHILS (test c ode = 1040) 0.30 K/UL ABSOLUTE BASOPHILS (test cod e = 1069) 0.06 K/UL ABS IMMATURE GRANULOCYTES (t est code = 1020) 0.01 K/UL ABS NUCLEATED RBCS (test cod e = 62097) 0.00 K/UL HEMOGLOBIN [id number] 00:00:00* Test Item Value Reference Range Interpretation Comme nts HEMOGLOBIN A1c (test code = 89171) 9.6 % HEMOGLOBIN [id number] 00:00:00* Test Item Value Reference Range Interpretation Comme nts HEMOGLOBIN A1c (test code = 73612) 9.6 % HEMOGLOBIN [id number] 00:00:00* Test Item Value Reference Range Interpretation Comme nts HEMOGLOBIN A1c (test code = 26421) 9.6 % [id number] 00:00:00* Test Item Value Reference Range Interpretation Comme nts RPR RESULT (test code = 3501) NON-REACTIVE RPR TITER (test code = 3500) NOT INDIC. TITER [id number] 00:00:00* Test Item Value Reference Range Interpretation Comme nts RPR RESULT (test code = 3501) NON-REACTIVE RPR TITER (test code = 3500) NOT INDIC. TITER [id number] 00:00:00* Test Item Value Reference Range Interpretation Comme nts RPR RESULT (test code = 3501) NON-REACTIVE RPR TITER (test code = 3500) NOT INDIC. TITER VITAMIN [id number] 00:00:00* Test Item Value Reference Range Interpretation Comme nts VITAMIN B-12 (test code = 2840) 510 PG/ML VITAMIN [id number] 00:00:00* Test Item Value Reference Range Interpretation Comme nts VITAMIN B-12 (test code = 2840) 510 PG/ML VITAMIN [id number] 00:00:00* Test Item Value Reference Range Interpretation Comme nts VITAMIN B-12 (test code = 2840) 510 PG/ML HEMOGLOBIN [id number] 00:00:00* Test Item Value Reference Range Interpretation Comme nts HEMOGLOBIN A1c (test code = 78500) 9.6 % Toney Camryn AustinPOCT GLUCOSE (AUTOMATED)2022-08-02 16:54:10* Test Item Value Reference Range Interpretation Comme nts POCT GLU (test code = 3834630795) 194 mg/dL 70-110 H Lab Interpretation (test cod e = 22660-9) Abnormal [facility] GLUCOSE (AUTOMATED)2022-08-02 12:46:27* Test Item Value Reference Range Interpretation Comme nts POCT GLU (test code = 0750038769) 184 mg/dL 70-110 H Lab Interpretation (test cod e = 59559-9) Abnormal [facility] GLUCOSE (AUTOMATED)2022-08-01 21:39:34* Test Item Value Reference Range Interpretation Comme nts POCT GLU (test code = 1498092901) 178 mg/dL 70-110 H Lab Interpretation (test cod e = 25891-3) Abnormal [facility] GLUCOSE (AUTOMATED)2022-08-01 16:52:06* Test Item Value Reference Range Interpretation Comme nts POCT GLU (test code = 8239364231) 177 mg/dL 70-110 H Lab Interpretation (test cod e = 02853-1) Abnormal [facility] GLUCOSE (AUTOMATED)2022-08-01 16:49:53* Test Item Value Reference Range Interpretation Comme nts POCT GLU (test code = 5079369422) 184 mg/dL 70-110 H Lab Interpretation (test cod e = 23542-3) Abnormal [facility] GLUCOSE (AUTOMATED)2022-08-01 12:48:55* Test Item Value Reference Range Interpretation Comme nts POCT GLU (test code = 0559210331) 180 mg/dL 70-110 H Lab Interpretation (test cod e = 62192-0) Abnormal [facility] GLUCOSE (AUTOMATED)2022-08-01 01:05:36* Test Item Value Reference Range Interpretation Comme nts POCT GLU (test code = 0214841072) 217 mg/dL 70-110 H Lab Interpretation (test cod e = 00178-3) [facility] 22:39:50* Test Item Value Reference Range Interpretation Comme nts Height (test code = 6471728469) in Weight (test code = 2038620440) lbs Systolic BP (test code = 3937374817) mmHg Diastolic BP (test code = 2601708411) mmHg Heart Rate (test code = 6468180338) bpm BSA (test code = 4294504876) 1.76 m2 Ao root diam (test code = 9142325677) 3.20 cm Aortic root (test code = 1838968678) 3.2 cm Ao root annulus (test code = 4660971258) 3.2 cm LVOT diameter (test code = 8185235913) 1.90 cm LVOT area (test code = 1739228923) 2.80 cm2 LVIDD (test code = 2823969771) 4.20 cm Left Ventricular End Diastolic Volume by Teichholz Method (test code = 5120686) 77.7 mL IVS (test code = 3081862466) 1.31 cm Interventricular Septum Diastolic Thickness by 2D (test code = 2016678) 1.31 cm LVPWD (test code = 9436435721) 1.31 cm PW (test code = 9467943443) 1.31 cm 0.6-1.1 EF(Teich) (test code = 6947512256) 60.50 % LVIDS (test code = 4395133335) 2.80 cm Left Ventricular End Systolic Volume by Teichholz Method (test code = 6613107) 30.7 mL FS (test code = 4206719924) 32 % EF - 2D (test code = 43679013) 60.50 % LA size (test code = 8182262840) 3.5 cm TR Peak Rebekah (test code = 2578667860) 226.6 cm/s Triscuspid Valve Regurgitation Peak Gradient (test code = 7158356816) mmHg Pulmonic Regurgitant End Max Velocity (test code = 2962693729) 86.0 cm/s LAV(MOD-sp4) (test code = 8927252559) 42.30 mL E wave decelartion time (test code = 5351690276) 0.31 s MV stenosis pressure 1/2 time (test code = 8288378974) 93.6 ms MV Peak E Rebekah (test code = 4856403636) 62.3 cm/s MV Peak A Rebekah (test code = 6597520572) 81.2 cm/s E/A ratio (test code = 6527959983) ratio MV Prop V (test code = 0134549935) 21.70 cm/s MV E/e' septal (test code = 6104970288) 6.9 cm/s Tapse (test code = 5104783169) 2.15 cm LVOT stroke volume (test code = 0967327352) 53.70 cm3 LVOT peak rebekah (test code = 4967949117) 82.7 cm/s LVOT mn grad (test code = 2538665347) mmHg AV LVOT peak gradient (test code = 8818401672) mmHg LVOT peak VTI (test code = 4606773106) 18.9 cm LV V1 mean (test code = 7414021802) 53.70 cm/s AV regurgitation pressure 1/2 time (test code = 8327479921) 774.6 ms AI dec slope (test code = 3510721140) 179.20 cm/s2 AI max rebekah (test code = 4947195001) 473.80 cm/s AI max PG (test code = 8258406383) 89.80 mm[Hg] Aortic valve mean velocity (test code = 9626018418) 104.6 cm/s Ao peak rebekah (test code = 9974874669) 150.2 cm/s Ao VTI (test code = 1949391833) 32.4 cm AV area by cont VTI (test code = 4003791906) 1.7 cm2 AV area peak rebekah (test code = 1711737319) 1.6 cm2 Ao max PG (test code = 7497984423) 9.00 mm[Hg] AV peak gradient (test code = 7699180086) mmHg AV valve area (test code = 1450821414) 1.66 cm2 AV mean gradient (test code = 7802873226) mmHg MR max PG (test code = 0338339596) 89.70 mm[Hg] MR max rebekah (test code = 1988286959) 473.00 cm/s Mr max rebekah (test code = 5828791314) 473.0 m/s Radiology Study observation (narrative) (test code = 48116-2) FIOR (test code = FIOR) ?Left?Ventricle: Left ventricle size is normal. Mildly increased wall thickness. Normal wall motion. Normal systolic function with a visually estimated EF of 55 - 60%. There is impaired relaxation. ?Right?Ventricle: Normal systolic function. ?Tricuspid?Valve: Mild transvalvular regurgitation. Right ventricular systolic pressure is 20-25 mmHg. IVC not well seen. ?Aortic?Valve: Mild transvalvular regurgitation. ?Mitral?Valve: Mild transvalvular regurgitation. ?Aorta: Mildly to moderately enlarged ascending aorta 4.1cm. Left VentricleLeft ventricle size is normal. Mildly increased wall thickness. Normal wall motion. Normal systolic function with a visually estimated EF of 55 - 60%. There is impaired relaxation.Right VentricleRight ventricle size is normal. Normal systolic function.Left AtriumLeft atrium size is normal.Right AtriumRight atrium size is normal.IVC/SVCIVC not well seen.Mitral ValveMild mitral annular calcification. Mild transvalvular regurgitation.Tricusp id ValveTricuspid valve structure is grossly normal. Mild transvalvular regurgitation. Right ventricular systolic pressure is 20-25 mmHg. IVC not well seen.Aortic ValveAortic valve opens well. Mild transvalvular regurgitation.Pulmoni c ValvePulmonic valve is grossly normal in structure and function. Trace transvalvular regurgitation.Ascendi ng AortaMildly to moderately enlarged ascending aorta 4.1cm.PericardiumNo pericardial effusion.Study DetailsStudy quality was adequate. A complete echocardiogram was performed using 2D, color flow Doppler and spectral Doppler. [facility] GLUCOSE (AUTOMATED)2022-07-31 21:44:50* Test Item Value Reference Range Interpretation Comme nts POCT GLU (test code = 7241828717) 219 mg/dL 70-110 H Lab Interpretation (test cod e = 71710-4) Abnormal [facility] GLUCOSE (AUTOMATED)2022-07-31 12:48:44* Test Item Value Reference Range Interpretation Comme nts POCT GLU (test code = 8732601181) 201 mg/dL 70-110 H Lab Interpretation (test cod e = 55928-6) [facility] [id number] 09:11:42SPECIMEN NUMBER: [id number] CULTURE, URINE SPECIMEN NUMBER: [id number] SPECIMEN COMMENT: URINE SOURCE: URINE REPORT STATUS: FINAL FINAL REPORT: 05/05/2022 10-50,000 CFU/ML UROGENITAL WOLF PRESENT NO COMMON PATHOGENSCULTURE, [id number] 00:00:00* Test Item Value Reference Range Interpretation Comme nts CULTURE, URINE (test code = 60103) SPECIMEN NUMBER: [id number] CULTURE, [id number] 00:00:00* Test Item Value Reference Range Interpretation Comme nts CULTURE, URINE (test code = 55329) SPECIMEN NUMBER: [id number] CULTURE, [id number] 00:00:00* Test Item Value Reference Range Interpretation Comme nts CULTURE, URINE (test code = 03520) SPECIMEN NUMBER: [id number] CULTURE, [id number] 00:00:00* Test Item Value Reference Range Interpretation Comme nts CULTURE, URINE (test code = 42955) SPECIMEN NUMBER: [id number] CULTURE, [id number] 00:00:00* Test Item Value Reference Range Interpretation Comme nts CULTURE, URINE (test code = 98679) SPECIMEN NUMBER: [id number] CULTURE, [id number] 00:00:00* Test Item Value Reference Range Interpretation Comme nts CULTURE, URINE (test code = 91399) SPECIMEN NUMBER: [id number] CULTURE, [id number] 00:00:00* Test Item Value Reference Range Interpretation Comme nts CULTURE, URINE (test code = 37686) SPECIMEN NUMBER: [id number] CULTURE, [id number] 00:00:00* Test Item Value Reference Range Interpretation Comme nts CULTURE, URINE (test code = 14743) SPECIMEN NUMBER: [id number] CULTURE, [id number] 00:00:00* Test Item Value Reference Range Interpretation Comme nts CULTURE, URINE (test code = 75926) SPECIMEN NUMBER: [id number] CULTURE, [id number] 00:00:00* Test Item Value Reference Range Interpretation Comme nts CULTURE, URINE (test code = 23657) SPECIMEN NUMBER: [id number] CULTURE, [id number] 00:00:00* Test Item Value Reference Range Interpretation Comme nts CULTURE, URINE (test code = 66440) SPECIMEN NUMBER: [id number] CULTURE, [id number] 00:00:00* Test Item Value Reference Range Interpretation Comme nts CULTURE, URINE (test code = 32293) SPECIMEN NUMBER: [id number] CULTURE, [id number] 00:00:00* Test Item Value Reference Range Interpretation Comme nts CULTURE, URINE (test code = 38292) SPECIMEN NUMBER: [id number] CULTURE, [id number] 00:00:00* Test Item Value Reference Range Interpretation Comme nts CULTURE, URINE (test code = 68385) SPECIMEN NUMBER: [id number] CULTURE, [id number] 00:00:00* Test Item Value Reference Range Interpretation Comme nts CULTURE, URINE (test code = 17271) SPECIMEN NUMBER: [id number] oTney RennerHEMOGLOBIN [id number] 05:13:20* Test Item Value Reference Range Interpretation Comme nts HEMOGLOBIN A1c (test code = 42869) 10.2 % 4.2-5.6 H [employer] GUIDELINES FOR HGB A1C: PREDIABETES/INCREASED RISK . . . . . . . 5.7-6.4% DIAGNOSIS OF DIABETES . . . . . . . . . >=6.5% WITH CONFIRMATION OR APPROPRIATE SYMPTOMS NOTE: ASSAY MAY BE AFFECTED BY HEMOGLOBINOPATHIES (SICKLE CELL ANEMIA, S-C DISEASE, OTHERS) OR ARTIFICIALLY LOWERED BY DECREASED RED CELL SURVIVAL (HEMOLYTIC ANEMIAS, BLOOD LOSS, ETC.). CONSIDER ALTERNATE TESTING OR LABORATORY CONSULTATION. UNLESS OTHERWISE INDICATED, ALL TESTING PERFORMED [facility] [employer] [address] [place] [address] TRANSMISSION ASSEMBLER: JENNIFER BECKMAN M.D. CLIA NUMBER [id number] [facility] [place]. [id number] HEMOGLOBIN [id number] 00:00:00* Test Item Value Reference Range Interpretation Comme nts HEMOGLOBIN A1c (test code = 45643) 10.2 % HEMOGLOBIN [id number] 00:00:00* Test Item Value Reference Range Interpretation Comme nts HEMOGLOBIN A1c (test code = 21816) 10.2 % HEMOGLOBIN [id number] 00:00:00* Test Item Value Reference Range Interpretation Comme nts HEMOGLOBIN A1c (test code = 77065) 10.2 % HEMOGLOBIN [id number] 00:00:00* Test Item Value Reference Range Interpretation Comme nts HEMOGLOBIN A1c (test code = 33024) 10.2 % HEMOGLOBIN [id number] 00:00:00* Test Item Value Reference Range Interpretation Comme nts HEMOGLOBIN A1c (test code = 45995) 10.2 % HEMOGLOBIN [id number] 00:00:00* Test Item Value Reference Range Interpretation Comme nts HEMOGLOBIN A1c (test code = 14222) 10.2 % HEMOGLOBIN [id number] 00:00:00* Test Item Value Reference Range Interpretation Comme nts HEMOGLOBIN A1c (test code = 09575) 10.2 % HEMOGLOBIN [id number] 00:00:00* Test Item Value Reference Range Interpretation Comme nts HEMOGLOBIN A1c (test code = 96050) 10.2 % HEMOGLOBIN [id number] 00:00:00* Test Item Value Reference Range Interpretation Comme nts HEMOGLOBIN A1c (test code = 60831) 10.2 % HEMOGLOBIN [id number] 00:00:00* Test Item Value Reference Range Interpretation Comme nts HEMOGLOBIN A1c (test code = 02683) 10.2 % HEMOGLOBIN [id number] 00:00:00* Test Item Value Reference Range Interpretation Comme nts HEMOGLOBIN A1c (test code = 75660) 10.2 % HEMOGLOBIN [id number] 00:00:00* Test Item Value Reference Range Interpretation Comme nts HEMOGLOBIN A1c (test code = 31350) 10.2 % HEMOGLOBIN [id number] 00:00:00* Test Item Value Reference Range Interpretation Comme nts HEMOGLOBIN A1c (test code = 53557) 10.2 % HEMOGLOBIN [id number] 00:00:00* Test Item Value Reference Range Interpretation Comme nts HEMOGLOBIN A1c (test code = 22520) 10.2 % HEMOGLOBIN [id number] 00:00:00* Test Item Value Reference Range Interpretation Comme nts HEMOGLOBIN A1c (test code = 73313) 10.2 % HEMOGLOBIN [id number] 00:00:00* Test Item Value Reference Range Interpretation Comme nts HEMOGLOBIN A1c (test code = 17336) 10.2 % HEMOGLOBIN [id number] 00:00:00* Test Item Value Reference Range Interpretation Comme nts HEMOGLOBIN A1c (test code = 29551) 10.2 % HEMOGLOBIN [id number] 00:00:00* Test Item Value Reference Range Interpretation Comme nts HEMOGLOBIN A1c (test code = 50899) 10.2 % HEMOGLOBIN [id number] 00:00:00* Test Item Value Reference Range Interpretation Comme nts HEMOGLOBIN A1c (test code = 81379) 10.2 % HEMOGLOBIN [id number] 00:00:00* Test Item Value Reference Range Interpretation Comme nts HEMOGLOBIN A1c (test code = 92557) 10.2 % HEMOGLOBIN [id number] 00:00:00* Test Item Value Reference Range Interpretation Comme nts HEMOGLOBIN A1c (test code = 84649) 10.2 % HEMOGLOBIN [id number] 00:00:00* Test Item Value Reference Range Interpretation Comme nts HEMOGLOBIN A1c (test code = 54817) 10.2 % HEMOGLOBIN [id number] 00:00:00* Test Item Value Reference Range Interpretation Comme nts HEMOGLOBIN A1c (test code = 16685) 10.2 % Toney F AustinOCCULT BLD,FECAL,IMMUNOASSAY DIAG [ADDED]2022-02-05 00:00:00* Test Item Value Reference Range Interpretation Comme nts OCCULT BLD, FECAL (test code = 06885) NEGATIVE Toney F AustinOCCULT BLD,FECAL,IMMUNOASSAY DIAG [ADDED]2022-02-05 00:00:00* Test Item Value Reference Range Interpretation Comme nts OCCULT BLD, FECAL (test code = 37391) NEGATIVE OCCULT BLD,FECAL,IMMUNOASSAY DIAG [ADDED]2022-02-05 00:00:00* Test Item Value Reference Range Interpretation Comme nts OCCULT BLD, FECAL (test code = 15420) NEGATIVE OCCULT BLD,FECAL,IMMUNOASSAY DIAG [ADDED]2022-02-05 00:00:00* Test Item Value Reference Range Interpretation Comme nts OCCULT BLD, FECAL (test code = 48537) NEGATIVE OCCULT BLD,FECAL,IMMUNOASSAY DIAG [ADDED]2022-02-05 00:00:00* Test Item Value Reference Range Interpretation Comme nts OCCULT BLD, FECAL (test code = 20983) NEGATIVE OCCULT BLD,FECAL,IMMUNOASSAY DIAG [ADDED]2022-02-05 00:00:00* Test Item Value Reference Range Interpretation Comme nts OCCULT BLD, FECAL (test code = 00957) NEGATIVE OCCULT BLD,FECAL,IMMUNOASSAY DIAG [ADDED]2022-02-05 00:00:00* Test Item Value Reference Range Interpretation Comme nts OCCULT BLD, FECAL (test code = 74339) NEGATIVE OCCULT BLD,FECAL,IMMUNOASSAY DIAG [ADDED]2022-02-05 00:00:00* Test Item Value Reference Range Interpretation Comme nts OCCULT BLD, FECAL (test code = 69140) NEGATIVE OCCULT BLD,FECAL,IMMUNOASSAY DIAG [ADDED]2022-02-05 00:00:00* Test Item Value Reference Range Interpretation Comme nts OCCULT BLD, FECAL (test code = 86740) NEGATIVE OCCULT BLD,FECAL,IMMUNOASSAY DIAG [ADDED]2022-02-05 00:00:00* Test Item Value Reference Range Interpretation Comme nts OCCULT BLD, FECAL (test code = 65418) NEGATIVE OCCULT BLD,FECAL,IMMUNOASSAY DIAG [ADDED]2022-02-05 00:00:00* Test Item Value Reference Range Interpretation Comme nts OCCULT BLD, FECAL (test code = 11073) NEGATIVE OCCULT BLD,FECAL,IMMUNOASSAY DIAG [ADDED]2022-02-05 00:00:00* Test Item Value Reference Range Interpretation Comme nts OCCULT BLD, FECAL (test code = 22087) NEGATIVE OCCULT BLD,FECAL,IMMUNOASSAY DIAG [ADDED]2022-02-05 00:00:00* Test Item Value Reference Range Interpretation Comme nts OCCULT BLD, FECAL (test code = 79891) NEGATIVE OCCULT BLD,FECAL,IMMUNOASSAY DIAG [ADDED]2022-02-05 00:00:00* Test Item Value Reference Range Interpretation Comme nts OCCULT BLD, FECAL (test code = 39448) NEGATIVE OCCULT BLD,FECAL,IMMUNOASSAY DIAG [ADDED]2022-02-05 00:00:00* Test Item Value Reference Range Interpretation Comme nts OCCULT BLD, FECAL (test code = 78541) NEGATIVE OCCULT BLD,FECAL,IMMUNOASSAY DIAG [ADDED]2022-02-05 00:00:00* Test Item Value Reference Range Interpretation Comme nts OCCULT BLD, FECAL (test code = 98113) NEGATIVE OCCULT BLD,FECAL,IMMUNOASSAY DIAG [ADDED]2022-02-05 00:00:00* Test Item Value Reference Range Interpretation Comme nts OCCULT BLD, FECAL (test code = 52969) NEGATIVE OCCULT BLD,FECAL,IMMUNOASSAY DIAG [ADDED]2022-02-05 00:00:00* Test Item Value Reference Range Interpretation Comme nts OCCULT BLD, FECAL (test code = 29808) NEGATIVE OCCULT BLD,FECAL,IMMUNOASSAY DIAG [ADDED]2022-02-05 00:00:00* Test Item Value Reference Range Interpretation Comme nts OCCULT BLD, FECAL (test code = 90453) NEGATIVE OCCULT BLD,FECAL,IMMUNOASSAY DIAG [ADDED]2022-02-05 00:00:00* Test Item Value Reference Range Interpretation Comme nts OCCULT BLD, FECAL (test code = 28401) NEGATIVE OCCULT BLD,FECAL,IMMUNOASSAY DIAG [ADDED]2022-02-05 00:00:00* Test Item Value Reference Range Interpretation Comme nts OCCULT BLD, FECAL (test code = 24721) NEGATIVE OCCULT BLD,FECAL,IMMUNOASSAY DIAG [ADDED]2022-02-05 00:00:00* Test Item Value Reference Range Interpretation Comme nts OCCULT BLD, FECAL (test code = 09815) NEGATIVE OCCULT BLD,FECAL,IMMUNOASSAY DIAG [ADDED]2022-02-05 00:00:00* Test Item Value Reference Range Interpretation Comme nts OCCULT BLD, FECAL (test code = 82131) NEGATIVE OCCULT BLD,FECAL,IMMUNOASSAY DIAG [ADDED]2022-02-05 00:00:00* Test Item Value Reference Range Interpretation Comme nts OCCULT BLD, FECAL (test code = 86497) NEGATIVE OCCULT BLD,FECAL,IMMUNOASSAY DIAG [ADDED]2022-02-05 00:00:00* Test Item Value Reference Range Interpretation Comme nts OCCULT BLD, FECAL (test code = 07758) NEGATIVE COMPREHENSIVE METABOLIC [id number] 05:33:23* Test Item Value Reference Range Interpretation Comme nts GLUCOSE (test code = 2217) 290 MG/DL 70-99 H BUN (test code = 2207) 16 MG/DL 8-23 CREATININE (test code = 2214) 0.48 MG/DL 0.60-1.30 L eGFR (2020 CKD-EPI) (test code = 77753) 102 ML/MIN/1.73 >60 CALC BUN/CREAT (test code = 2235) 33 RATIO 6-28 H SODIUM (test code = 2231) 142 MEQ/L 133-146 POTASSIUM (test code = 2228) 4.5 MEQ/L 3.5-5.4 CHLORIDE (test code = 2215) 102 MEQ/L 95-107 CARBON DIOXIDE (test code = 2206) 26 MEQ/L 19-31 CALCIUM (test code = 2209) 9.7 MG/DL 8.5-10.5 PROTEIN, TOTAL (test code = 2228) 7.5 G/DL 6.1-8.3 ALBUMIN (test code = 2200) 4.3 G/DL 3.5-5.2 CALC GLOBULIN (test code = 2240) 3.2 G/DL 1.9-3.7 CALC A/G RATIO (test code = 2234) 1.3 RATIO 1.0-2.6 BILIRUBIN, TOTAL (test code = 2207) 0.7 MG/DL See_Comment [Automated me ssage] The system which generated this result transmitted reference range: <=1.2. The reference range was not used to interpret this result as normal/abnormal. ALKALINE PHOSPHATASE (test code = 2203) 111 U/L 40-142 AST (test code = 2218) 24 U/L 9-40 ALT (test code = 2219) 29 U/L 5-40 LIPID [id number] 05:33:23* Test Item Value Reference Range Interpretation Comme nts CHOLESTEROL (test code = 2210) 168 MG/DL <200 TRIGLYCERIDES (test code = 2232) 99 MG/DL <150 HDL CHOLESTEROL (test code = 0) 52 MG/DL >39 CALC LDL CHOL (test code = 2236) 97 MG/DL <100 NOTE: CALCULATED LDL IS BASED ON SANDRA-TELLO METHOD WHICHINCLUDES ADJUSTABLE TRIGLYCERIDE:VLDL CHOLESTEROL RATIO.THIS FACTOR VARIES BY MEASURED TRIGLYCERIDE AND NON-HDLCHOLESTEROL CONCENTRATIONS WITH INCREASED CALCULATED LDL SEENIN HIGHER TRIGLYCERIDE OR LOWER NON-HDL SPECIMENS. FOR MOREINFORMATION, SEE CLIENT ANNOUNCEMENT AT [email or web address] RISK RATIO LDL/HDL (test code = 2238) 1.87 RATIO <3.22 HEMOGLOBIN [id number] 04:54:03* Test Item Value Reference Range Interpretation Comme nts HEMOGLOBIN A1c (test code = 46893) 11.2 % 4.2-5.6 H [employer] GUIDELINES FOR HGB A1C: PREDIABETES/INCREASED RISK . . . . . . . 5.7-6.4% DIAGNOSIS OF DIABETES . . . . . . . . . >=6.5% WITH CONFIRMATION OR APPROPRIATE SYMPTOMS NOTE: ASSAY MAY BE AFFECTED BY HEMOGLOBINOPATHIES (SICKLE CELL ANEMIA, S-C DISEASE, OTHERS) OR ARTIFICIALLY LOWERED BY DECREASED RED CELL SURVIVAL (HEMOLYTIC ANEMIAS, BLOOD LOSS, ETC.). CONSIDER ALTERNATE TESTING OR LABORATORY CONSULTATION. UNLESS OTHERWISE INDICATED, ALL TESTING PERFORMED [facility] [address] [place] [address] TRANSMISSION ASSEMBLER: JENNIFER BECKMAN M.D. CLIA NUMBER [id number] [facility] [place]. [id number] CBC W/AUTO DIFF WITH [id number] 04:25:48* Test Item Value Reference Range Interpretation Comme nts WBC (test code = 1001) 6.5 K/UL 3.5-11.0 RBC (test code = 1002) 4.70 M/UL 3.80-5.40 HEMOGLOBIN (test code = 1003) 14.1 G/DL 11.5-15.5 HEMATOCRIT (test code = 1004) 41.5 % 34.0-45.0 MCV (test code = 1005) 88.3 fL 80.0-99.0 MCH (test code = 1006) 30.0 PG 25.0-33.0 MCHC (test code = 1007) 34.0 G/DL 31.0-36.0 RDW (test code = 1038) 12.7 % 11.5-15.0 NEUTROPHILS (test code = 1008) 50.9 % LYMPHOCYTES (test code = 1010) 36.4 % MONOCYTES (test code = 1011) 7.6 % EOSINOPHILS (test code = 1012) 4.0 % BASOPHILS (test code = 1013) 0.8 % IMMATURE GRANULOCYTES (test code = 1036) 0.3 % NUCLEATED RBCS (test code = 1065) 0.0 /100 WBC'S See_Comment [Automated messa ge] The system which generated this result transmitted reference range: 0.0. The reference range was not used to interpret this result as normal/abnormal. PLATELET COUNT (test code = 1015) 232 K/UL 130-400 ABSOLUTE NEUTROPHILS (test code = 1066) 3.28 K/UL 1.50-7.50 ABSOLUTE LYMPHOCYTES (test code = 1067) 2.35 K/UL 1.00-4.00 ABSOLUTE MONOCYTES (test code = 1068) 0.49 K/UL 0.20-1.00 ABSOLUTE EOSINOPHILS (test code = 1040) 0.26 K/UL 0.00-0.50 ABSOLUTE BASOPHILS (test code = 1069) 0.05 K/UL 0.00-0.20 ABS IMMATURE GRANULOCYTES (test code = 1020) 0.02 K/UL 0.00-0.10 ABS NUCLEATED RBCS (test code = 10565) 0.00 K/UL 0.00-0.11 LIPID [id number] 00:00:00* Test Item Value Reference Range Interpretation Comme nts CHOLESTEROL (test code = 2210) 168 MG/DL TRIGLYCERIDES (test code = 2232) 99 MG/DL HDL CHOLESTEROL (test code = 2220) 52 MG/DL CALC LDL CHOL (test code = 2237) 97 MG/DL RISK RATIO LDL/HDL (test cod e = 2238) 1.87 RATIO Toney RennerHEMOGLOBIN [id number] 00:00:00* Test Item Value Reference Range Interpretation Comme nts HEMOGLOBIN A1c (test code = 35777) 11.2 % Toney RennerCBC W/AUTO [id number] 00:00:00* Test Item Value Reference Range Interpretation Comme nts WBC (test code = 1001) 6.5 K/UL RBC (test code = 1002) 4.70 M/UL HEMOGLOBIN (test code = 1003) 14.1 G/DL HEMATOCRIT (test code = 1004) 41.5 % MCV (test code = 1005) 88.3 fL MCH (test code = 1006) 30.0 PG MCHC (test code = 1007) 34.0 G/DL RDW (test code = 1038) 12.7 % NEUTROPHILS (test code = 1008) 50.9 % LYMPHOCYTES (test code = 1010) 36.4 % MONOCYTES (test code = 1011) 7.6 % EOSINOPHILS (test code = 1012) 4.0 % BASOPHILS (test code = 1013) 0.8 % IMMATURE GRANULOCYTES (test code = 1036) 0.3 % NUCLEATED RBCS (test code = 1065) 0.0 /100WBC'S PLATELET COUNT (test code = 1015) 232 K/UL ABSOLUTE NEUTROPHILS (test c ode = 1066) 3.28 K/UL ABSOLUTE LYMPHOCYTES (test c ode = 1067) 2.35 K/UL ABSOLUTE MONOCYTES (test cod e = 1068) 0.49 K/UL ABSOLUTE EOSINOPHILS (test c ode = 1040) 0.26 K/UL ABSOLUTE BASOPHILS (test cod e = 1069) 0.05 K/UL ABS IMMATURE GRANULOCYTES (t est code = 1020) 0.02 K/UL ABS NUCLEATED RBCS (test cod e = 95582) 0.00 K/UL CBC W/AUTO [id number] 00:00:00* Test Item Value Reference Range Interpretation Comme nts WBC (test code = 1001) 6.5 K/UL RBC (test code = 1002) 4.70 M/UL HEMOGLOBIN (test code = 1003) 14.1 G/DL HEMATOCRIT (test code = 1004) 41.5 % MCV (test code = 1005) 88.3 fL MCH (test code = 1006) 30.0 PG MCHC (test code = 1007) 34.0 G/DL RDW (test code = 1038) 12.7 % NEUTROPHILS (test code = 1008) 50.9 % LYMPHOCYTES (test code = 1010) 36.4 % MONOCYTES (test code = 1011) 7.6 % EOSINOPHILS (test code = 1012) 4.0 % BASOPHILS (test code = 1013) 0.8 % IMMATURE GRANULOCYTES (test code = 1036) 0.3 % NUCLEATED RBCS (test code = 1065) 0.0 /100WBC'S PLATELET COUNT (test code = 1015) 232 K/UL ABSOLUTE NEUTROPHILS (test c ode = 1066) 3.28 K/UL ABSOLUTE LYMPHOCYTES (test c ode = 1067) 2.35 K/UL ABSOLUTE MONOCYTES (test cod e = 1068) 0.49 K/UL ABSOLUTE EOSINOPHILS (test c ode = 1040) 0.26 K/UL ABSOLUTE BASOPHILS (test cod e = 1069) 0.05 K/UL ABS IMMATURE GRANULOCYTES (t est code = 1020) 0.02 K/UL ABS NUCLEATED RBCS (test cod e = 74050) 0.00 K/UL COMPREHENSIVE METABOLIC [id number] 00:00:00* Test Item Value Reference Range Interpretation Comme nts GLUCOSE (test code = 2217) 290 MG/DL BUN (test code = 2208) 16 MG/DL CREATININE (test code = 2214) 0.48 MG/DL eGFR (2020 CKD-EPI) (test code = 99707) 102 ML/MIN/1.73 CALC BUN/CREAT (test code = 2235) 33 RATIO SODIUM (test code = 2231) 142 MEQ/L POTASSIUM (test code = 2228) 4.5 MEQ/L CHLORIDE (test code = 2215) 102 MEQ/L CARBON DIOXIDE (test code = 2206) 26 MEQ/L CALCIUM (test code = 2209) 9.7 MG/DL PROTEIN, TOTAL (test code = 2229) 7.5 G/DL ALBUMIN (test code = 2201) 4.3 G/DL CALC GLOBULIN (test code = 2240) 3.2 G/DL CALC A/G RATIO (test code = 2234) 1.3 RATIO BILIRUBIN, TOTAL (test code = 2207) 0.7 MG/DL ALKALINE PHOSPHATASE (test code = 2204) 111 U/L AST (test code = 2218) 24 U/L ALT (test code = 2219) 29 U/L LIPID [id number] 00:00:00* Test Item Value Reference Range Interpretation Comme nts CHOLESTEROL (test code = 2210) 168 MG/DL TRIGLYCERIDES (test code = 2232) 99 MG/DL HDL CHOLESTEROL (test code = 2220) 52 MG/DL CALC LDL CHOL (test code = 2237) 97 MG/DL RISK RATIO LDL/HDL (test cod e = 2238) 1.87 RATIO HEMOGLOBIN [id number] 00:00:00* Test Item Value Reference Range Interpretation Comme nts HEMOGLOBIN A1c (test code = 06362) 11.2 % HEMOGLOBIN [id number] 00:00:00* Test Item Value Reference Range Interpretation Comme nts HEMOGLOBIN A1c (test code = 75347) 11.2 % CBC W/AUTO [id number] 00:00:00* Test Item Value Reference Range Interpretation Comme nts WBC (test code = 1001) 6.5 K/UL RBC (test code = 1002) 4.70 M/UL HEMOGLOBIN (test code = 1003) 14.1 G/DL HEMATOCRIT (test code = 1004) 41.5 % MCV (test code = 1005) 88.3 fL MCH (test code = 1006) 30.0 PG MCHC (test code = 1007) 34.0 G/DL RDW (test code = 1038) 12.7 % NEUTROPHILS (test code = 1008) 50.9 % LYMPHOCYTES (test code = 1010) 36.4 % MONOCYTES (test code = 1011) 7.6 % EOSINOPHILS (test code = 1012) 4.0 % BASOPHILS (test code = 1013) 0.8 % IMMATURE GRANULOCYTES (test code = 1036) 0.3 % NUCLEATED RBCS (test code = 1065) 0.0 /100WBC'S PLATELET COUNT (test code = 1015) 232 K/UL ABSOLUTE NEUTROPHILS (test c ode = 1066) 3.28 K/UL ABSOLUTE LYMPHOCYTES (test c ode = 1067) 2.35 K/UL ABSOLUTE MONOCYTES (test cod e = 1068) 0.49 K/UL ABSOLUTE EOSINOPHILS (test c ode = 1040) 0.26 K/UL ABSOLUTE BASOPHILS (test cod e = 1069) 0.05 K/UL ABS IMMATURE GRANULOCYTES (t est code = 1020) 0.02 K/UL ABS NUCLEATED RBCS (test cod e = 47546) 0.00 K/UL CBC W/AUTO [id number] 00:00:00* Test Item Value Reference Range Interpretation Comme nts WBC (test code = 1001) 6.5 K/UL RBC (test code = 1002) 4.70 M/UL HEMOGLOBIN (test code = 1003) 14.1 G/DL HEMATOCRIT (test code = 1004) 41.5 % MCV (test code = 1005) 88.3 fL MCH (test code = 1006) 30.0 PG MCHC (test code = 1007) 34.0 G/DL RDW (test code = 1038) 12.7 % NEUTROPHILS (test code = 1008) 50.9 % LYMPHOCYTES (test code = 1010) 36.4 % MONOCYTES (test code = 1011) 7.6 % EOSINOPHILS (test code = 1012) 4.0 % BASOPHILS (test code = 1013) 0.8 % IMMATURE GRANULOCYTES (test code = 1036) 0.3 % NUCLEATED RBCS (test code = 1065) 0.0 /100WBC'S PLATELET COUNT (test code = 1015) 232 K/UL ABSOLUTE NEUTROPHILS (test c ode = 1066) 3.28 K/UL ABSOLUTE LYMPHOCYTES (test c ode = 1067) 2.35 K/UL ABSOLUTE MONOCYTES (test cod e = 1068) 0.49 K/UL ABSOLUTE EOSINOPHILS (test c ode = 1040) 0.26 K/UL ABSOLUTE BASOPHILS (test cod e = 1069) 0.05 K/UL ABS IMMATURE GRANULOCYTES (t est code = 1020) 0.02 K/UL ABS NUCLEATED RBCS (test cod e = 05384) 0.00 K/UL CBC W/AUTO [id number] 00:00:00* Test Item Value Reference Range Interpretation Comme nts WBC (test code = 1001) 6.5 K/UL RBC (test code = 1002) 4.70 M/UL HEMOGLOBIN (test code = 1003) 14.1 G/DL HEMATOCRIT (test code = 1004) 41.5 % MCV (test code = 1005) 88.3 fL MCH (test code = 1006) 30.0 PG MCHC (test code = 1007) 34.0 G/DL RDW (test code = 1038) 12.7 % NEUTROPHILS (test code = 1008) 50.9 % LYMPHOCYTES (test code = 1010) 36.4 % MONOCYTES (test code = 1011) 7.6 % EOSINOPHILS (test code = 1012) 4.0 % BASOPHILS (test code = 1013) 0.8 % IMMATURE GRANULOCYTES (test code = 1036) 0.3 % NUCLEATED RBCS (test code = 1065) 0.0 /100WBC'S PLATELET COUNT (test code = 1015) 232 K/UL ABSOLUTE NEUTROPHILS (test c ode = 1066) 3.28 K/UL ABSOLUTE LYMPHOCYTES (test c ode = 1067) 2.35 K/UL ABSOLUTE MONOCYTES (test cod e = 1068) 0.49 K/UL ABSOLUTE EOSINOPHILS (test c ode = 1040) 0.26 K/UL ABSOLUTE BASOPHILS (test cod e = 1069) 0.05 K/UL ABS IMMATURE GRANULOCYTES (t est code = 1020) 0.02 K/UL ABS NUCLEATED RBCS (test cod e = 62915) 0.00 K/UL COMPREHENSIVE METABOLIC [id number] 00:00:00* Test Item Value Reference Range Interpretation Comme nts GLUCOSE (test code = 2217) 290 MG/DL BUN (test code = 2208) 16 MG/DL CREATININE (test code = 2214) 0.48 MG/DL eGFR (2020 CKD-EPI) (test code = 53612) 102 ML/MIN/1.73 CALC BUN/CREAT (test code = 2235) 33 RATIO SODIUM (test code = 2231) 142 MEQ/L POTASSIUM (test code = 2228) 4.5 MEQ/L CHLORIDE (test code = 2215) 102 MEQ/L CARBON DIOXIDE (test code = 2206) 26 MEQ/L CALCIUM (test code = 2209) 9.7 MG/DL PROTEIN, TOTAL (test code = 2229) 7.5 G/DL ALBUMIN (test code = 2201) 4.3 G/DL CALC GLOBULIN (test code = 2240) 3.2 G/DL CALC A/G RATIO (test code = 2234) 1.3 RATIO BILIRUBIN, TOTAL (test code = 2207) 0.7 MG/DL ALKALINE PHOSPHATASE (test code = 2204) 111 U/L AST (test code = 2218) 24 U/L ALT (test code = 2219) 29 U/L COMPREHENSIVE METABOLIC [id number] 00:00:00* Test Item Value Reference Range Interpretation Comme nts GLUCOSE (test code = 2217) 290 MG/DL BUN (test code = 2208) 16 MG/DL CREATININE (test code = 2214) 0.48 MG/DL eGFR (2020 CKD-EPI) (test code = 10483) 102 ML/MIN/1.73 CALC BUN/CREAT (test code = 2235) 33 RATIO SODIUM (test code = 2231) 142 MEQ/L POTASSIUM (test code = 2228) 4.5 MEQ/L CHLORIDE (test code = 2215) 102 MEQ/L CARBON DIOXIDE (test code = 2206) 26 MEQ/L CALCIUM (test code = 2209) 9.7 MG/DL PROTEIN, TOTAL (test code = 2229) 7.5 G/DL ALBUMIN (test code = 2201) 4.3 G/DL CALC GLOBULIN (test code = 2240) 3.2 G/DL CALC A/G RATIO (test code = 2234) 1.3 RATIO BILIRUBIN, TOTAL (test code = 2207) 0.7 MG/DL ALKALINE PHOSPHATASE (test code = 2204) 111 U/L AST (test code = 2218) 24 U/L ALT (test code = 2219) 29 U/L LIPID [id number] 00:00:00* Test Item Value Reference Range Interpretation Comme nts CHOLESTEROL (test code = 2210) 168 MG/DL TRIGLYCERIDES (test code = 2232) 99 MG/DL HDL CHOLESTEROL (test code = 2220) 52 MG/DL CALC LDL CHOL (test code = 2237) 97 MG/DL RISK RATIO LDL/HDL (test cod e = 2238) 1.87 RATIO LIPID [id number] 00:00:00* Test Item Value Reference Range Interpretation Comme nts CHOLESTEROL (test code = 2210) 168 MG/DL TRIGLYCERIDES (test code = 2232) 99 MG/DL HDL CHOLESTEROL (test code = 2220) 52 MG/DL CALC LDL CHOL (test code = 2237) 97 MG/DL RISK RATIO LDL/HDL (test cod e = 2238) 1.87 RATIO HEMOGLOBIN [id number] 00:00:00* Test Item Value Reference Range Interpretation Comme nts HEMOGLOBIN A1c (test code = 42126) 11.2 % HEMOGLOBIN [id number] 00:00:00* Test Item Value Reference Range Interpretation Comme nts HEMOGLOBIN A1c (test code = 02919) 11.2 % HEMOGLOBIN [id number] 00:00:00* Test Item Value Reference Range Interpretation Comme nts HEMOGLOBIN A1c (test code = 26946) 11.2 % CBC W/AUTO [id number] 00:00:00* Test Item Value Reference Range Interpretation Comme nts WBC (test code = 1001) 6.5 K/UL RBC (test code = 1002) 4.70 M/UL HEMOGLOBIN (test code = 1003) 14.1 G/DL HEMATOCRIT (test code = 1004) 41.5 % MCV (test code = 1005) 88.3 fL MCH (test code = 1006) 30.0 PG MCHC (test code = 1007) 34.0 G/DL RDW (test code = 1038) 12.7 % NEUTROPHILS (test code = 1008) 50.9 % LYMPHOCYTES (test code = 1010) 36.4 % MONOCYTES (test code = 1011) 7.6 % EOSINOPHILS (test code = 1012) 4.0 % BASOPHILS (test code = 1013) 0.8 % IMMATURE GRANULOCYTES (test code = 1036) 0.3 % NUCLEATED RBCS (test code = 1065) 0.0 /100WBC'S PLATELET COUNT (test code = 1015) 232 K/UL ABSOLUTE NEUTROPHILS (test c ode = 1066) 3.28 K/UL ABSOLUTE LYMPHOCYTES (test c ode = 1067) 2.35 K/UL ABSOLUTE MONOCYTES (test cod e = 1068) 0.49 K/UL ABSOLUTE EOSINOPHILS (test c ode = 1040) 0.26 K/UL ABSOLUTE BASOPHILS (test cod e = 1069) 0.05 K/UL ABS IMMATURE GRANULOCYTES (t est code = 1020) 0.02 K/UL ABS NUCLEATED RBCS (test cod e = 44475) 0.00 K/UL CBC W/AUTO [id number] 00:00:00* Test Item Value Reference Range Interpretation Comme nts WBC (test code = 1001) 6.5 K/UL RBC (test code = 1002) 4.70 M/UL HEMOGLOBIN (test code = 1003) 14.1 G/DL HEMATOCRIT (test code = 1004) 41.5 % MCV (test code = 1005) 88.3 fL MCH (test code = 1006) 30.0 PG MCHC (test code = 1007) 34.0 G/DL RDW (test code = 1038) 12.7 % NEUTROPHILS (test code = 1008) 50.9 % LYMPHOCYTES (test code = 1010) 36.4 % MONOCYTES (test code = 1011) 7.6 % EOSINOPHILS (test code = 1012) 4.0 % BASOPHILS (test code = 1013) 0.8 % IMMATURE GRANULOCYTES (test code = 1036) 0.3 % NUCLEATED RBCS (test code = 1065) 0.0 /100WBC'S PLATELET COUNT (test code = 1015) 232 K/UL ABSOLUTE NEUTROPHILS (test c ode = 1066) 3.28 K/UL ABSOLUTE LYMPHOCYTES (test c ode = 1067) 2.35 K/UL ABSOLUTE MONOCYTES (test cod e = 1068) 0.49 K/UL ABSOLUTE EOSINOPHILS (test c ode = 1040) 0.26 K/UL ABSOLUTE BASOPHILS (test cod e = 1069) 0.05 K/UL ABS IMMATURE GRANULOCYTES (t est code = 1020) 0.02 K/UL ABS NUCLEATED RBCS (test cod e = 63948) 0.00 K/UL CBC W/AUTO [id number] 00:00:00* Test Item Value Reference Range Interpretation Comme nts WBC (test code = 1001) 6.5 K/UL RBC (test code = 1002) 4.70 M/UL HEMOGLOBIN (test code = 1003) 14.1 G/DL HEMATOCRIT (test code = 1004) 41.5 % MCV (test code = 1005) 88.3 fL MCH (test code = 1006) 30.0 PG MCHC (test code = 1007) 34.0 G/DL RDW (test code = 1038) 12.7 % NEUTROPHILS (test code = 1008) 50.9 % LYMPHOCYTES (test code = 1010) 36.4 % MONOCYTES (test code = 1011) 7.6 % EOSINOPHILS (test code = 1012) 4.0 % BASOPHILS (test code = 1013) 0.8 % IMMATURE GRANULOCYTES (test code = 1036) 0.3 % NUCLEATED RBCS (test code = 1065) 0.0 /100WBC'S PLATELET COUNT (test code = 1015) 232 K/UL ABSOLUTE NEUTROPHILS (test c ode = 1066) 3.28 K/UL ABSOLUTE LYMPHOCYTES (test c ode = 1067) 2.35 K/UL ABSOLUTE MONOCYTES (test cod e = 1068) 0.49 K/UL ABSOLUTE EOSINOPHILS (test c ode = 1040) 0.26 K/UL ABSOLUTE BASOPHILS (test cod e = 1069) 0.05 K/UL ABS IMMATURE GRANULOCYTES (t est code = 1020) 0.02 K/UL ABS NUCLEATED RBCS (test cod e = 07961) 0.00 K/UL COMPREHENSIVE METABOLIC [id number] 00:00:00* Test Item Value Reference Range Interpretation Comme nts GLUCOSE (test code = 2217) 290 MG/DL BUN (test code = 2208) 16 MG/DL CREATININE (test code = 2214) 0.48 MG/DL eGFR (2020 CKD-EPI) (test code = 54634) 102 ML/MIN/1.73 CALC BUN/CREAT (test code = 2235) 33 RATIO SODIUM (test code = 2231) 142 MEQ/L POTASSIUM (test code = 2228) 4.5 MEQ/L CHLORIDE (test code = 2215) 102 MEQ/L CARBON DIOXIDE (test code = 2206) 26 MEQ/L CALCIUM (test code = 2209) 9.7 MG/DL PROTEIN, TOTAL (test code = 2229) 7.5 G/DL ALBUMIN (test code = 2201) 4.3 G/DL CALC GLOBULIN (test code = 2240) 3.2 G/DL CALC A/G RATIO (test code = 2234) 1.3 RATIO BILIRUBIN, TOTAL (test code = 2207) 0.7 MG/DL ALKALINE PHOSPHATASE (test code = 2204) 111 U/L AST (test code = 2218) 24 U/L ALT (test code = 2219) 29 U/L COMPREHENSIVE METABOLIC [id number] 00:00:00* Test Item Value Reference Range Interpretation Comme nts GLUCOSE (test code = 2217) 290 MG/DL BUN (test code = 2208) 16 MG/DL CREATININE (test code = 2214) 0.48 MG/DL eGFR (2020 CKD-EPI) (test code = 60319) 102 ML/MIN/1.73 CALC BUN/CREAT (test code = 2235) 33 RATIO SODIUM (test code = 2231) 142 MEQ/L POTASSIUM (test code = 2228) 4.5 MEQ/L CHLORIDE (test code = 2215) 102 MEQ/L CARBON DIOXIDE (test code = 2206) 26 MEQ/L CALCIUM (test code = 2209) 9.7 MG/DL PROTEIN, TOTAL (test code = 2229) 7.5 G/DL ALBUMIN (test code = 2201) 4.3 G/DL CALC GLOBULIN (test code = 2240) 3.2 G/DL CALC A/G RATIO (test code = 2234) 1.3 RATIO BILIRUBIN, TOTAL (test code = 2207) 0.7 MG/DL ALKALINE PHOSPHATASE (test code = 2204) 111 U/L AST (test code = 2218) 24 U/L ALT (test code = 2219) 29 U/L LIPID [id number] 00:00:00* Test Item Value Reference Range Interpretation Comme nts CHOLESTEROL (test code = 2210) 168 MG/DL TRIGLYCERIDES (test code = 2232) 99 MG/DL HDL CHOLESTEROL (test code = 2220) 52 MG/DL CALC LDL CHOL (test code = 2237) 97 MG/DL RISK RATIO LDL/HDL (test cod e = 2238) 1.87 RATIO LIPID [id number] 00:00:00* Test Item Value Reference Range Interpretation Comme nts CHOLESTEROL (test code = 2210) 168 MG/DL TRIGLYCERIDES (test code = 2232) 99 MG/DL HDL CHOLESTEROL (test code = 2220) 52 MG/DL CALC LDL CHOL (test code = 2237) 97 MG/DL RISK RATIO LDL/HDL (test cod e = 2238) 1.87 RATIO HEMOGLOBIN [id number] 00:00:00* Test Item Value Reference Range Interpretation Comme nts HEMOGLOBIN A1c (test code = 16141) 11.2 % HEMOGLOBIN [id number] 00:00:00* Test Item Value Reference Range Interpretation Comme nts HEMOGLOBIN A1c (test code = 52968) 11.2 % HEMOGLOBIN [id number] 00:00:00* Test Item Value Reference Range Interpretation Comme nts HEMOGLOBIN A1c (test code = 69743) 11.2 % CBC W/AUTO [id number] 00:00:00* Test Item Value Reference Range Interpretation Comme nts WBC (test code = 1001) 6.5 K/UL RBC (test code = 1002) 4.70 M/UL HEMOGLOBIN (test code = 1003) 14.1 G/DL HEMATOCRIT (test code = 1004) 41.5 % MCV (test code = 1005) 88.3 fL MCH (test code = 1006) 30.0 PG MCHC (test code = 1007) 34.0 G/DL RDW (test code = 1038) 12.7 % NEUTROPHILS (test code = 1008) 50.9 % LYMPHOCYTES (test code = 1010) 36.4 % MONOCYTES (test code = 1011) 7.6 % EOSINOPHILS (test code = 1012) 4.0 % BASOPHILS (test code = 1013) 0.8 % IMMATURE GRANULOCYTES (test code = 1036) 0.3 % NUCLEATED RBCS (test code = 1065) 0.0 /100WBC'S PLATELET COUNT (test code = 1015) 232 K/UL ABSOLUTE NEUTROPHILS (test c ode = 1066) 3.28 K/UL ABSOLUTE LYMPHOCYTES (test c ode = 1067) 2.35 K/UL ABSOLUTE MONOCYTES (test cod e = 1068) 0.49 K/UL ABSOLUTE EOSINOPHILS (test c ode = 1040) 0.26 K/UL ABSOLUTE BASOPHILS (test cod e = 1069) 0.05 K/UL ABS IMMATURE GRANULOCYTES (t est code = 1020) 0.02 K/UL ABS NUCLEATED RBCS (test cod e = 19088) 0.00 K/UL CBC W/AUTO [id number] 00:00:00* Test Item Value Reference Range Interpretation Comme nts WBC (test code = 1001) 6.5 K/UL RBC (test code = 1002) 4.70 M/UL HEMOGLOBIN (test code = 1003) 14.1 G/DL HEMATOCRIT (test code = 1004) 41.5 % MCV (test code = 1005) 88.3 fL MCH (test code = 1006) 30.0 PG MCHC (test code = 1007) 34.0 G/DL RDW (test code = 1038) 12.7 % NEUTROPHILS (test code = 1008) 50.9 % LYMPHOCYTES (test code = 1010) 36.4 % MONOCYTES (test code = 1011) 7.6 % EOSINOPHILS (test code = 1012) 4.0 % BASOPHILS (test code = 1013) 0.8 % IMMATURE GRANULOCYTES (test code = 1036) 0.3 % NUCLEATED RBCS (test code = 1065) 0.0 /100WBC'S PLATELET COUNT (test code = 1015) 232 K/UL ABSOLUTE NEUTROPHILS (test c ode = 1066) 3.28 K/UL ABSOLUTE LYMPHOCYTES (test c ode = 1067) 2.35 K/UL ABSOLUTE MONOCYTES (test cod e = 1068) 0.49 K/UL ABSOLUTE EOSINOPHILS (test c ode = 1040) 0.26 K/UL ABSOLUTE BASOPHILS (test cod e = 1069) 0.05 K/UL ABS IMMATURE GRANULOCYTES (t est code = 1020) 0.02 K/UL ABS NUCLEATED RBCS (test cod e = 40271) 0.00 K/UL CBC W/AUTO [id number] 00:00:00* Test Item Value Reference Range Interpretation Comme nts WBC (test code = 1001) 6.5 K/UL RBC (test code = 1002) 4.70 M/UL HEMOGLOBIN (test code = 1003) 14.1 G/DL HEMATOCRIT (test code = 1004) 41.5 % MCV (test code = 1005) 88.3 fL MCH (test code = 1006) 30.0 PG MCHC (test code = 1007) 34.0 G/DL RDW (test code = 1038) 12.7 % NEUTROPHILS (test code = 1008) 50.9 % LYMPHOCYTES (test code = 1010) 36.4 % MONOCYTES (test code = 1011) 7.6 % EOSINOPHILS (test code = 1012) 4.0 % BASOPHILS (test code = 1013) 0.8 % IMMATURE GRANULOCYTES (test code = 1036) 0.3 % NUCLEATED RBCS (test code = 1065) 0.0 /100WBC'S PLATELET COUNT (test code = 1015) 232 K/UL ABSOLUTE NEUTROPHILS (test c ode = 1066) 3.28 K/UL ABSOLUTE LYMPHOCYTES (test c ode = 1067) 2.35 K/UL ABSOLUTE MONOCYTES (test cod e = 1068) 0.49 K/UL ABSOLUTE EOSINOPHILS (test c ode = 1040) 0.26 K/UL ABSOLUTE BASOPHILS (test cod e = 1069) 0.05 K/UL ABS IMMATURE GRANULOCYTES (t est code = 1020) 0.02 K/UL ABS NUCLEATED RBCS (test cod e = 41035) 0.00 K/UL COMPREHENSIVE METABOLIC [id number] 00:00:00* Test Item Value Reference Range Interpretation Comme nts GLUCOSE (test code = 2217) 290 MG/DL BUN (test code = 2208) 16 MG/DL CREATININE (test code = 2214) 0.48 MG/DL eGFR (2020 CKD-EPI) (test code = 84685) 102 ML/MIN/1.73 CALC BUN/CREAT (test code = 2235) 33 RATIO SODIUM (test code = 2231) 142 MEQ/L POTASSIUM (test code = 2228) 4.5 MEQ/L CHLORIDE (test code = 2215) 102 MEQ/L CARBON DIOXIDE (test code = 2206) 26 MEQ/L CALCIUM (test code = 2209) 9.7 MG/DL PROTEIN, TOTAL (test code = 2229) 7.5 G/DL ALBUMIN (test code = 2201) 4.3 G/DL CALC GLOBULIN (test code = 2240) 3.2 G/DL CALC A/G RATIO (test code = 2234) 1.3 RATIO BILIRUBIN, TOTAL (test code = 2207) 0.7 MG/DL ALKALINE PHOSPHATASE (test code = 2204) 111 U/L AST (test code = 2218) 24 U/L ALT (test code = 2219) 29 U/L COMPREHENSIVE METABOLIC [id number] 00:00:00* Test Item Value Reference Range Interpretation Comme nts GLUCOSE (test code = 2217) 290 MG/DL BUN (test code = 2208) 16 MG/DL CREATININE (test code = 2214) 0.48 MG/DL eGFR (2020 CKD-EPI) (test code = 03162) 102 ML/MIN/1.73 CALC BUN/CREAT (test code = 2235) 33 RATIO SODIUM (test code = 2231) 142 MEQ/L POTASSIUM (test code = 2228) 4.5 MEQ/L CHLORIDE (test code = 2215) 102 MEQ/L CARBON DIOXIDE (test code = 2206) 26 MEQ/L CALCIUM (test code = 2209) 9.7 MG/DL PROTEIN, TOTAL (test code = 2229) 7.5 G/DL ALBUMIN (test code = 2201) 4.3 G/DL CALC GLOBULIN (test code = 2240) 3.2 G/DL CALC A/G RATIO (test code = 2234) 1.3 RATIO BILIRUBIN, TOTAL (test code = 2207) 0.7 MG/DL ALKALINE PHOSPHATASE (test code = 2204) 111 U/L AST (test code = 2218) 24 U/L ALT (test code = 2219) 29 U/L LIPID [id number] 00:00:00* Test Item Value Reference Range Interpretation Comme nts CHOLESTEROL (test code = 2210) 168 MG/DL TRIGLYCERIDES (test code = 2232) 99 MG/DL HDL CHOLESTEROL (test code = 2220) 52 MG/DL CALC LDL CHOL (test code = 2237) 97 MG/DL RISK RATIO LDL/HDL (test cod e = 2238) 1.87 RATIO LIPID [id number] 00:00:00* Test Item Value Reference Range Interpretation Comme nts CHOLESTEROL (test code = 2210) 168 MG/DL TRIGLYCERIDES (test code = 2232) 99 MG/DL HDL CHOLESTEROL (test code = 2220) 52 MG/DL CALC LDL CHOL (test code = 2237) 97 MG/DL RISK RATIO LDL/HDL (test cod e = 2238) 1.87 RATIO HEMOGLOBIN [id number] 00:00:00* Test Item Value Reference Range Interpretation Comme nts HEMOGLOBIN A1c (test code = 96780) 11.2 % HEMOGLOBIN [id number] 00:00:00* Test Item Value Reference Range Interpretation Comme nts HEMOGLOBIN A1c (test code = 68488) 11.2 % HEMOGLOBIN [id number] 00:00:00* Test Item Value Reference Range Interpretation Comme nts HEMOGLOBIN A1c (test code = 11585) 11.2 % CBC W/AUTO [id number] 00:00:00* Test Item Value Reference Range Interpretation Comme nts WBC (test code = 1001) 6.5 K/UL RBC (test code = 1002) 4.70 M/UL HEMOGLOBIN (test code = 1003) 14.1 G/DL HEMATOCRIT (test code = 1004) 41.5 % MCV (test code = 1005) 88.3 fL MCH (test code = 1006) 30.0 PG MCHC (test code = 1007) 34.0 G/DL RDW (test code = 1038) 12.7 % NEUTROPHILS (test code = 1008) 50.9 % LYMPHOCYTES (test code = 1010) 36.4 % MONOCYTES (test code = 1011) 7.6 % EOSINOPHILS (test code = 1012) 4.0 % BASOPHILS (test code = 1013) 0.8 % IMMATURE GRANULOCYTES (test code = 1036) 0.3 % NUCLEATED RBCS (test code = 1065) 0.0 /100WBC'S PLATELET COUNT (test code = 1015) 232 K/UL ABSOLUTE NEUTROPHILS (test c ode = 1066) 3.28 K/UL ABSOLUTE LYMPHOCYTES (test c ode = 1067) 2.35 K/UL ABSOLUTE MONOCYTES (test cod e = 1068) 0.49 K/UL ABSOLUTE EOSINOPHILS (test c ode = 1040) 0.26 K/UL ABSOLUTE BASOPHILS (test cod e = 1069) 0.05 K/UL ABS IMMATURE GRANULOCYTES (t est code = 1020) 0.02 K/UL ABS NUCLEATED RBCS (test cod e = 47693) 0.00 K/UL CBC W/AUTO [id number] 00:00:00* Test Item Value Reference Range Interpretation Comme nts WBC (test code = 1001) 6.5 K/UL RBC (test code = 1002) 4.70 M/UL HEMOGLOBIN (test code = 1003) 14.1 G/DL HEMATOCRIT (test code = 1004) 41.5 % MCV (test code = 1005) 88.3 fL MCH (test code = 1006) 30.0 PG MCHC (test code = 1007) 34.0 G/DL RDW (test code = 1038) 12.7 % NEUTROPHILS (test code = 1008) 50.9 % LYMPHOCYTES (test code = 1010) 36.4 % MONOCYTES (test code = 1011) 7.6 % EOSINOPHILS (test code = 1012) 4.0 % BASOPHILS (test code = 1013) 0.8 % IMMATURE GRANULOCYTES (test code = 1036) 0.3 % NUCLEATED RBCS (test code = 1065) 0.0 /100WBC'S PLATELET COUNT (test code = 1015) 232 K/UL ABSOLUTE NEUTROPHILS (test c ode = 1066) 3.28 K/UL ABSOLUTE LYMPHOCYTES (test c ode = 1067) 2.35 K/UL ABSOLUTE MONOCYTES (test cod e = 1068) 0.49 K/UL ABSOLUTE EOSINOPHILS (test c ode = 1040) 0.26 K/UL ABSOLUTE BASOPHILS (test cod e = 1069) 0.05 K/UL ABS IMMATURE GRANULOCYTES (t est code = 1020) 0.02 K/UL ABS NUCLEATED RBCS (test cod e = 53570) 0.00 K/UL COMPREHENSIVE METABOLIC [id number] 00:00:00* Test Item Value Reference Range Interpretation Comme nts GLUCOSE (test code = 2217) 290 MG/DL BUN (test code = 2208) 16 MG/DL CREATININE (test code = 2214) 0.48 MG/DL eGFR (2020 CKD-EPI) (test code = 71051) 102 ML/MIN/1.73 CALC BUN/CREAT (test code = 2235) 33 RATIO SODIUM (test code = 2231) 142 MEQ/L POTASSIUM (test code = 2228) 4.5 MEQ/L CHLORIDE (test code = 2215) 102 MEQ/L CARBON DIOXIDE (test code = 2206) 26 MEQ/L CALCIUM (test code = 2209) 9.7 MG/DL PROTEIN, TOTAL (test code = 2229) 7.5 G/DL ALBUMIN (test code = 2201) 4.3 G/DL CALC GLOBULIN (test code = 2240) 3.2 G/DL CALC A/G RATIO (test code = 2234) 1.3 RATIO BILIRUBIN, TOTAL (test code = 2207) 0.7 MG/DL ALKALINE PHOSPHATASE (test code = 2204) 111 U/L AST (test code = 2218) 24 U/L ALT (test code = 2219) 29 U/L LIPID [id number] 00:00:00* Test Item Value Reference Range Interpretation Comme nts CHOLESTEROL (test code = 2210) 168 MG/DL TRIGLYCERIDES (test code = 2232) 99 MG/DL HDL CHOLESTEROL (test code = 2220) 52 MG/DL CALC LDL CHOL (test code = 2237) 97 MG/DL RISK RATIO LDL/HDL (test cod e = 2238) 1.87 RATIO CBC W/AUTO [id number] 00:00:00* Test Item Value Reference Range Interpretation Comme nts WBC (test code = 1001) 6.5 K/UL RBC (test code = 1002) 4.70 M/UL HEMOGLOBIN (test code = 1003) 14.1 G/DL HEMATOCRIT (test code = 1004) 41.5 % MCV (test code = 1005) 88.3 fL MCH (test code = 1006) 30.0 PG MCHC (test code = 1007) 34.0 G/DL RDW (test code = 1038) 12.7 % NEUTROPHILS (test code = 1008) 50.9 % LYMPHOCYTES (test code = 1010) 36.4 % MONOCYTES (test code = 1011) 7.6 % EOSINOPHILS (test code = 1012) 4.0 % BASOPHILS (test code = 1013) 0.8 % IMMATURE GRANULOCYTES (test code = 1036) 0.3 % NUCLEATED RBCS (test code = 1065) 0.0 /100WBC'S PLATELET COUNT (test code = 1015) 232 K/UL ABSOLUTE NEUTROPHILS (test c ode = 1066) 3.28 K/UL ABSOLUTE LYMPHOCYTES (test c ode = 1067) 2.35 K/UL ABSOLUTE MONOCYTES (test cod e = 1068) 0.49 K/UL ABSOLUTE EOSINOPHILS (test c ode = 1040) 0.26 K/UL ABSOLUTE BASOPHILS (test cod e = 1069) 0.05 K/UL ABS IMMATURE GRANULOCYTES (t est code = 1020) 0.02 K/UL ABS NUCLEATED RBCS (test cod e = 83477) 0.00 K/UL CBC W/AUTO [id number] 00:00:00* Test Item Value Reference Range Interpretation Comme nts WBC (test code = 1001) 6.5 K/UL RBC (test code = 1002) 4.70 M/UL HEMOGLOBIN (test code = 1003) 14.1 G/DL HEMATOCRIT (test code = 1004) 41.5 % MCV (test code = 1005) 88.3 fL MCH (test code = 1006) 30.0 PG MCHC (test code = 1007) 34.0 G/DL RDW (test code = 1038) 12.7 % NEUTROPHILS (test code = 1008) 50.9 % LYMPHOCYTES (test code = 1010) 36.4 % MONOCYTES (test code = 1011) 7.6 % EOSINOPHILS (test code = 1012) 4.0 % BASOPHILS (test code = 1013) 0.8 % IMMATURE GRANULOCYTES (test code = 1036) 0.3 % NUCLEATED RBCS (test code = 1065) 0.0 /100WBC'S PLATELET COUNT (test code = 1015) 232 K/UL ABSOLUTE NEUTROPHILS (test c ode = 1066) 3.28 K/UL ABSOLUTE LYMPHOCYTES (test c ode = 1067) 2.35 K/UL ABSOLUTE MONOCYTES (test cod e = 1068) 0.49 K/UL ABSOLUTE EOSINOPHILS (test c ode = 1040) 0.26 K/UL ABSOLUTE BASOPHILS (test cod e = 1069) 0.05 K/UL ABS IMMATURE GRANULOCYTES (t est code = 1020) 0.02 K/UL ABS NUCLEATED RBCS (test cod e = 96098) 0.00 K/UL CBC W/AUTO [id number] 00:00:00* Test Item Value Reference Range Interpretation Comme nts WBC (test code = 1001) 6.5 K/UL RBC (test code = 1002) 4.70 M/UL HEMOGLOBIN (test code = 1003) 14.1 G/DL HEMATOCRIT (test code = 1004) 41.5 % MCV (test code = 1005) 88.3 fL MCH (test code = 1006) 30.0 PG MCHC (test code = 1007) 34.0 G/DL RDW (test code = 1038) 12.7 % NEUTROPHILS (test code = 1008) 50.9 % LYMPHOCYTES (test code = 1010) 36.4 % MONOCYTES (test code = 1011) 7.6 % EOSINOPHILS (test code = 1012) 4.0 % BASOPHILS (test code = 1013) 0.8 % IMMATURE GRANULOCYTES (test code = 1036) 0.3 % NUCLEATED RBCS (test code = 1065) 0.0 /100WBC'S PLATELET COUNT (test code = 1015) 232 K/UL ABSOLUTE NEUTROPHILS (test c ode = 1066) 3.28 K/UL ABSOLUTE LYMPHOCYTES (test c ode = 1067) 2.35 K/UL ABSOLUTE MONOCYTES (test cod e = 1068) 0.49 K/UL ABSOLUTE EOSINOPHILS (test c ode = 1040) 0.26 K/UL ABSOLUTE BASOPHILS (test cod e = 1069) 0.05 K/UL ABS IMMATURE GRANULOCYTES (t est code = 1020) 0.02 K/UL ABS NUCLEATED RBCS (test cod e = 96294) 0.00 K/UL COMPREHENSIVE METABOLIC [id number] 00:00:00* Test Item Value Reference Range Interpretation Comme nts GLUCOSE (test code = 2217) 290 MG/DL BUN (test code = 2208) 16 MG/DL CREATININE (test code = 2214) 0.48 MG/DL eGFR (2020 CKD-EPI) (test code = 89566) 102 ML/MIN/1.73 CALC BUN/CREAT (test code = 2235) 33 RATIO SODIUM (test code = 2231) 142 MEQ/L POTASSIUM (test code = 2228) 4.5 MEQ/L CHLORIDE (test code = 2215) 102 MEQ/L CARBON DIOXIDE (test code = 2206) 26 MEQ/L CALCIUM (test code = 2209) 9.7 MG/DL PROTEIN, TOTAL (test code = 2229) 7.5 G/DL ALBUMIN (test code = 2201) 4.3 G/DL CALC GLOBULIN (test code = 2240) 3.2 G/DL CALC A/G RATIO (test code = 2234) 1.3 RATIO BILIRUBIN, TOTAL (test code = 2207) 0.7 MG/DL ALKALINE PHOSPHATASE (test code = 2204) 111 U/L AST (test code = 2218) 24 U/L ALT (test code = 2219) 29 U/L COMPREHENSIVE METABOLIC [id number] 00:00:00* Test Item Value Reference Range Interpretation Comme nts GLUCOSE (test code = 2217) 290 MG/DL BUN (test code = 2208) 16 MG/DL CREATININE (test code = 2214) 0.48 MG/DL eGFR (2020 CKD-EPI) (test code = 97141) 102 ML/MIN/1.73 CALC BUN/CREAT (test code = 2235) 33 RATIO SODIUM (test code = 2231) 142 MEQ/L POTASSIUM (test code = 2228) 4.5 MEQ/L CHLORIDE (test code = 2215) 102 MEQ/L CARBON DIOXIDE (test code = 2206) 26 MEQ/L CALCIUM (test code = 2209) 9.7 MG/DL PROTEIN, TOTAL (test code = 2229) 7.5 G/DL ALBUMIN (test code = 2201) 4.3 G/DL CALC GLOBULIN (test code = 2240) 3.2 G/DL CALC A/G RATIO (test code = 2234) 1.3 RATIO BILIRUBIN, TOTAL (test code = 2207) 0.7 MG/DL ALKALINE PHOSPHATASE (test code = 2204) 111 U/L AST (test code = 2218) 24 U/L ALT (test code = 2219) 29 U/L HEMOGLOBIN [id number] 00:00:00* Test Item Value Reference Range Interpretation Comme nts HEMOGLOBIN A1c (test code = 53822) 11.2 % LIPID [id number] 00:00:00* Test Item Value Reference Range Interpretation Comme nts CHOLESTEROL (test code = 2210) 168 MG/DL TRIGLYCERIDES (test code = 2232) 99 MG/DL HDL CHOLESTEROL (test code = 2220) 52 MG/DL CALC LDL CHOL (test code = 2237) 97 MG/DL RISK RATIO LDL/HDL (test cod e = 2238) 1.87 RATIO LIPID [id number] 00:00:00* Test Item Value Reference Range Interpretation Comme nts CHOLESTEROL (test code = 2210) 168 MG/DL TRIGLYCERIDES (test code = 2232) 99 MG/DL HDL CHOLESTEROL (test code = 2220) 52 MG/DL CALC LDL CHOL (test code = 2237) 97 MG/DL RISK RATIO LDL/HDL (test cod e = 2238) 1.87 RATIO HEMOGLOBIN [id number] 00:00:00* Test Item Value Reference Range Interpretation Comme nts HEMOGLOBIN A1c (test code = 71446) 11.2 % HEMOGLOBIN [id number] 00:00:00* Test Item Value Reference Range Interpretation Comme nts HEMOGLOBIN A1c (test code = 09411) 11.2 % HEMOGLOBIN [id number] 00:00:00* Test Item Value Reference Range Interpretation Comme nts HEMOGLOBIN A1c (test code = 99185) 11.2 % HEMOGLOBIN [id number] 00:00:00* Test Item Value Reference Range Interpretation Comme nts HEMOGLOBIN A1c (test code = 50858) 11.2 % CBC W/AUTO [id number] 00:00:00* Test Item Value Reference Range Interpretation Comme nts WBC (test code = 1001) 6.5 K/UL RBC (test code = 1002) 4.70 M/UL HEMOGLOBIN (test code = 1003) 14.1 G/DL HEMATOCRIT (test code = 1004) 41.5 % MCV (test code = 1005) 88.3 fL MCH (test code = 1006) 30.0 PG MCHC (test code = 1007) 34.0 G/DL RDW (test code = 1038) 12.7 % NEUTROPHILS (test code = 1008) 50.9 % LYMPHOCYTES (test code = 1010) 36.4 % MONOCYTES (test code = 1011) 7.6 % EOSINOPHILS (test code = 1012) 4.0 % BASOPHILS (test code = 1013) 0.8 % IMMATURE GRANULOCYTES (test code = 1036) 0.3 % NUCLEATED RBCS (test code = 1065) 0.0 /100WBC'S PLATELET COUNT (test code = 1015) 232 K/UL ABSOLUTE NEUTROPHILS (test c ode = 1066) 3.28 K/UL ABSOLUTE LYMPHOCYTES (test c ode = 1067) 2.35 K/UL ABSOLUTE MONOCYTES (test cod e = 1068) 0.49 K/UL ABSOLUTE EOSINOPHILS (test c ode = 1040) 0.26 K/UL ABSOLUTE BASOPHILS (test cod e = 1069) 0.05 K/UL ABS IMMATURE GRANULOCYTES (t est code = 1020) 0.02 K/UL ABS NUCLEATED RBCS (test cod e = 90776) 0.00 K/UL CBC W/AUTO [id number] 00:00:00* Test Item Value Reference Range Interpretation Comme nts WBC (test code = 1001) 6.5 K/UL RBC (test code = 1002) 4.70 M/UL HEMOGLOBIN (test code = 1003) 14.1 G/DL HEMATOCRIT (test code = 1004) 41.5 % MCV (test code = 1005) 88.3 fL MCH (test code = 1006) 30.0 PG MCHC (test code = 1007) 34.0 G/DL RDW (test code = 1038) 12.7 % NEUTROPHILS (test code = 1008) 50.9 % LYMPHOCYTES (test code = 1010) 36.4 % MONOCYTES (test code = 1011) 7.6 % EOSINOPHILS (test code = 1012) 4.0 % BASOPHILS (test code = 1013) 0.8 % IMMATURE GRANULOCYTES (test code = 1036) 0.3 % NUCLEATED RBCS (test code = 1065) 0.0 /100WBC'S PLATELET COUNT (test code = 1015) 232 K/UL ABSOLUTE NEUTROPHILS (test c ode = 1066) 3.28 K/UL ABSOLUTE LYMPHOCYTES (test c ode = 1067) 2.35 K/UL ABSOLUTE MONOCYTES (test cod e = 1068) 0.49 K/UL ABSOLUTE EOSINOPHILS (test c ode = 1040) 0.26 K/UL ABSOLUTE BASOPHILS (test cod e = 1069) 0.05 K/UL ABS IMMATURE GRANULOCYTES (t est code = 1020) 0.02 K/UL ABS NUCLEATED RBCS (test cod e = 19079) 0.00 K/UL CBC W/AUTO [id number] 00:00:00* Test Item Value Reference Range Interpretation Comme nts WBC (test code = 1001) 6.5 K/UL RBC (test code = 1002) 4.70 M/UL HEMOGLOBIN (test code = 1003) 14.1 G/DL HEMATOCRIT (test code = 1004) 41.5 % MCV (test code = 1005) 88.3 fL MCH (test code = 1006) 30.0 PG MCHC (test code = 1007) 34.0 G/DL RDW (test code = 1038) 12.7 % NEUTROPHILS (test code = 1008) 50.9 % LYMPHOCYTES (test code = 1010) 36.4 % MONOCYTES (test code = 1011) 7.6 % EOSINOPHILS (test code = 1012) 4.0 % BASOPHILS (test code = 1013) 0.8 % IMMATURE GRANULOCYTES (test code = 1036) 0.3 % NUCLEATED RBCS (test code = 1065) 0.0 /100WBC'S PLATELET COUNT (test code = 1015) 232 K/UL ABSOLUTE NEUTROPHILS (test c ode = 1066) 3.28 K/UL ABSOLUTE LYMPHOCYTES (test c ode = 1067) 2.35 K/UL ABSOLUTE MONOCYTES (test cod e = 1068) 0.49 K/UL ABSOLUTE EOSINOPHILS (test c ode = 1040) 0.26 K/UL ABSOLUTE BASOPHILS (test cod e = 1069) 0.05 K/UL ABS IMMATURE GRANULOCYTES (t est code = 1020) 0.02 K/UL ABS NUCLEATED RBCS (test cod e = 29691) 0.00 K/UL COMPREHENSIVE METABOLIC [id number] 00:00:00* Test Item Value Reference Range Interpretation Comme nts GLUCOSE (test code = 2217) 290 MG/DL BUN (test code = 2208) 16 MG/DL CREATININE (test code = 2214) 0.48 MG/DL eGFR (2020 CKD-EPI) (test code = 13346) 102 ML/MIN/1.73 CALC BUN/CREAT (test code = 2235) 33 RATIO SODIUM (test code = 2231) 142 MEQ/L POTASSIUM (test code = 2228) 4.5 MEQ/L CHLORIDE (test code = 2215) 102 MEQ/L CARBON DIOXIDE (test code = 2206) 26 MEQ/L CALCIUM (test code = 2209) 9.7 MG/DL PROTEIN, TOTAL (test code = 2229) 7.5 G/DL ALBUMIN (test code = 2201) 4.3 G/DL CALC GLOBULIN (test code = 2240) 3.2 G/DL CALC A/G RATIO (test code = 2234) 1.3 RATIO BILIRUBIN, TOTAL (test code = 2207) 0.7 MG/DL ALKALINE PHOSPHATASE (test code = 2204) 111 U/L AST (test code = 2218) 24 U/L ALT (test code = 2219) 29 U/L COMPREHENSIVE METABOLIC [id number] 00:00:00* Test Item Value Reference Range Interpretation Comme nts GLUCOSE (test code = 2217) 290 MG/DL BUN (test code = 2208) 16 MG/DL CREATININE (test code = 2214) 0.48 MG/DL eGFR (2020 CKD-EPI) (test code = 76730) 102 ML/MIN/1.73 CALC BUN/CREAT (test code = 2235) 33 RATIO SODIUM (test code = 2231) 142 MEQ/L POTASSIUM (test code = 2228) 4.5 MEQ/L CHLORIDE (test code = 2215) 102 MEQ/L CARBON DIOXIDE (test code = 2206) 26 MEQ/L CALCIUM (test code = 2209) 9.7 MG/DL PROTEIN, TOTAL (test code = 2229) 7.5 G/DL ALBUMIN (test code = 2201) 4.3 G/DL CALC GLOBULIN (test code = 2240) 3.2 G/DL CALC A/G RATIO (test code = 2234) 1.3 RATIO BILIRUBIN, TOTAL (test code = 2207) 0.7 MG/DL ALKALINE PHOSPHATASE (test code = 2204) 111 U/L AST (test code = 2218) 24 U/L ALT (test code = 2219) 29 U/L LIPID [id number] 00:00:00* Test Item Value Reference Range Interpretation Comme nts CHOLESTEROL (test code = 2210) 168 MG/DL TRIGLYCERIDES (test code = 2232) 99 MG/DL HDL CHOLESTEROL (test code = 2220) 52 MG/DL CALC LDL CHOL (test code = 2237) 97 MG/DL RISK RATIO LDL/HDL (test cod e = 2238) 1.87 RATIO LIPID [id number] 00:00:00* Test Item Value Reference Range Interpretation Comme nts CHOLESTEROL (test code = 2210) 168 MG/DL TRIGLYCERIDES (test code = 2232) 99 MG/DL HDL CHOLESTEROL (test code = 2220) 52 MG/DL CALC LDL CHOL (test code = 2237) 97 MG/DL RISK RATIO LDL/HDL (test cod e = 2238) 1.87 RATIO HEMOGLOBIN [id number] 00:00:00* Test Item Value Reference Range Interpretation Comme nts HEMOGLOBIN A1c (test code = 62517) 11.2 % HEMOGLOBIN [id number] 00:00:00* Test Item Value Reference Range Interpretation Comme nts HEMOGLOBIN A1c (test code = 90190) 11.2 % HEMOGLOBIN [id number] 00:00:00* Test Item Value Reference Range Interpretation Comme nts HEMOGLOBIN A1c (test code = 42130) 11.2 % CBC W/AUTO [id number] 00:00:00* Test Item Value Reference Range Interpretation Comme nts WBC (test code = 1001) 6.5 K/UL RBC (test code = 1002) 4.70 M/UL HEMOGLOBIN (test code = 1003) 14.1 G/DL HEMATOCRIT (test code = 1004) 41.5 % MCV (test code = 1005) 88.3 fL MCH (test code = 1006) 30.0 PG MCHC (test code = 1007) 34.0 G/DL RDW (test code = 1038) 12.7 % NEUTROPHILS (test code = 1008) 50.9 % LYMPHOCYTES (test code = 1010) 36.4 % MONOCYTES (test code = 1011) 7.6 % EOSINOPHILS (test code = 1012) 4.0 % BASOPHILS (test code = 1013) 0.8 % IMMATURE GRANULOCYTES (test code = 1036) 0.3 % NUCLEATED RBCS (test code = 1065) 0.0 /100WBC'S PLATELET COUNT (test code = 1015) 232 K/UL ABSOLUTE NEUTROPHILS (test c ode = 1066) 3.28 K/UL ABSOLUTE LYMPHOCYTES (test c ode = 1067) 2.35 K/UL ABSOLUTE MONOCYTES (test cod e = 1068) 0.49 K/UL ABSOLUTE EOSINOPHILS (test c ode = 1040) 0.26 K/UL ABSOLUTE BASOPHILS (test cod e = 1069) 0.05 K/UL ABS IMMATURE GRANULOCYTES (t est code = 1020) 0.02 K/UL ABS NUCLEATED RBCS (test cod e = 23165) 0.00 K/UL CBC W/AUTO [id number] 00:00:00* Test Item Value Reference Range Interpretation Comme nts WBC (test code = 1001) 6.5 K/UL RBC (test code = 1002) 4.70 M/UL HEMOGLOBIN (test code = 1003) 14.1 G/DL HEMATOCRIT (test code = 1004) 41.5 % MCV (test code = 1005) 88.3 fL MCH (test code = 1006) 30.0 PG MCHC (test code = 1007) 34.0 G/DL RDW (test code = 1038) 12.7 % NEUTROPHILS (test code = 1008) 50.9 % LYMPHOCYTES (test code = 1010) 36.4 % MONOCYTES (test code = 1011) 7.6 % EOSINOPHILS (test code = 1012) 4.0 % BASOPHILS (test code = 1013) 0.8 % IMMATURE GRANULOCYTES (test code = 1036) 0.3 % NUCLEATED RBCS (test code = 1065) 0.0 /100WBC'S PLATELET COUNT (test code = 1015) 232 K/UL ABSOLUTE NEUTROPHILS (test c ode = 1066) 3.28 K/UL ABSOLUTE LYMPHOCYTES (test c ode = 1067) 2.35 K/UL ABSOLUTE MONOCYTES (test cod e = 1068) 0.49 K/UL ABSOLUTE EOSINOPHILS (test c ode = 1040) 0.26 K/UL ABSOLUTE BASOPHILS (test cod e = 1069) 0.05 K/UL ABS IMMATURE GRANULOCYTES (t est code = 1020) 0.02 K/UL ABS NUCLEATED RBCS (test cod e = 13204) 0.00 K/UL CBC W/AUTO [id number] 00:00:00* Test Item Value Reference Range Interpretation Comme nts WBC (test code = 1001) 6.5 K/UL RBC (test code = 1002) 4.70 M/UL HEMOGLOBIN (test code = 1003) 14.1 G/DL HEMATOCRIT (test code = 1004) 41.5 % MCV (test code = 1005) 88.3 fL MCH (test code = 1006) 30.0 PG MCHC (test code = 1007) 34.0 G/DL RDW (test code = 1038) 12.7 % NEUTROPHILS (test code = 1008) 50.9 % LYMPHOCYTES (test code = 1010) 36.4 % MONOCYTES (test code = 1011) 7.6 % EOSINOPHILS (test code = 1012) 4.0 % BASOPHILS (test code = 1013) 0.8 % IMMATURE GRANULOCYTES (test code = 1036) 0.3 % NUCLEATED RBCS (test code = 1065) 0.0 /100WBC'S PLATELET COUNT (test code = 1015) 232 K/UL ABSOLUTE NEUTROPHILS (test c ode = 1066) 3.28 K/UL ABSOLUTE LYMPHOCYTES (test c ode = 1067) 2.35 K/UL ABSOLUTE MONOCYTES (test cod e = 1068) 0.49 K/UL ABSOLUTE EOSINOPHILS (test c ode = 1040) 0.26 K/UL ABSOLUTE BASOPHILS (test cod e = 1069) 0.05 K/UL ABS IMMATURE GRANULOCYTES (t est code = 1020) 0.02 K/UL ABS NUCLEATED RBCS (test cod e = 62142) 0.00 K/UL COMPREHENSIVE METABOLIC [id number] 00:00:00* Test Item Value Reference Range Interpretation Comme nts GLUCOSE (test code = 2217) 290 MG/DL BUN (test code = 2208) 16 MG/DL CREATININE (test code = 2214) 0.48 MG/DL eGFR (2020 CKD-EPI) (test code = 21952) 102 ML/MIN/1.73 CALC BUN/CREAT (test code = 2235) 33 RATIO SODIUM (test code = 2231) 142 MEQ/L POTASSIUM (test code = 2228) 4.5 MEQ/L CHLORIDE (test code = 2215) 102 MEQ/L CARBON DIOXIDE (test code = 2206) 26 MEQ/L CALCIUM (test code = 2209) 9.7 MG/DL PROTEIN, TOTAL (test code = 2229) 7.5 G/DL ALBUMIN (test code = 2201) 4.3 G/DL CALC GLOBULIN (test code = 2240) 3.2 G/DL CALC A/G RATIO (test code = 2234) 1.3 RATIO BILIRUBIN, TOTAL (test code = 2207) 0.7 MG/DL ALKALINE PHOSPHATASE (test code = 2204) 111 U/L AST (test code = 2218) 24 U/L ALT (test code = 2219) 29 U/L COMPREHENSIVE METABOLIC [id number] 00:00:00* Test Item Value Reference Range Interpretation Comme nts GLUCOSE (test code = 2217) 290 MG/DL BUN (test code = 2208) 16 MG/DL CREATININE (test code = 2214) 0.48 MG/DL eGFR (2020 CKD-EPI) (test code = 52701) 102 ML/MIN/1.73 CALC BUN/CREAT (test code = 2235) 33 RATIO SODIUM (test code = 2231) 142 MEQ/L POTASSIUM (test code = 2228) 4.5 MEQ/L CHLORIDE (test code = 2215) 102 MEQ/L CARBON DIOXIDE (test code = 2206) 26 MEQ/L CALCIUM (test code = 2209) 9.7 MG/DL PROTEIN, TOTAL (test code = 2229) 7.5 G/DL ALBUMIN (test code = 2201) 4.3 G/DL CALC GLOBULIN (test code = 2240) 3.2 G/DL CALC A/G RATIO (test code = 2234) 1.3 RATIO BILIRUBIN, TOTAL (test code = 2207) 0.7 MG/DL ALKALINE PHOSPHATASE (test code = 2204) 111 U/L AST (test code = 2218) 24 U/L ALT (test code = 2219) 29 U/L LIPID [id number] 00:00:00* Test Item Value Reference Range Interpretation Comme nts CHOLESTEROL (test code = 2210) 168 MG/DL TRIGLYCERIDES (test code = 2232) 99 MG/DL HDL CHOLESTEROL (test code = 2220) 52 MG/DL CALC LDL CHOL (test code = 2237) 97 MG/DL RISK RATIO LDL/HDL (test cod e = 2238) 1.87 RATIO LIPID [id number] 00:00:00* Test Item Value Reference Range Interpretation Comme nts CHOLESTEROL (test code = 2210) 168 MG/DL TRIGLYCERIDES (test code = 2232) 99 MG/DL HDL CHOLESTEROL (test code = 2220) 52 MG/DL CALC LDL CHOL (test code = 2237) 97 MG/DL RISK RATIO LDL/HDL (test cod e = 2238) 1.87 RATIO HEMOGLOBIN [id number] 00:00:00* Test Item Value Reference Range Interpretation Comme nts HEMOGLOBIN A1c (test code = 90864) 11.2 % HEMOGLOBIN [id number] 00:00:00* Test Item Value Reference Range Interpretation Comme nts HEMOGLOBIN A1c (test code = 99269) 11.2 % HEMOGLOBIN [id number] 00:00:00* Test Item Value Reference Range Interpretation Comme nts HEMOGLOBIN A1c (test code = 48968) 11.2 % CBC W/AUTO [id number] 00:00:00* Test Item Value Reference Range Interpretation Comme nts WBC (test code = 1001) 6.5 K/UL RBC (test code = 1002) 4.70 M/UL HEMOGLOBIN (test code = 1003) 14.1 G/DL HEMATOCRIT (test code = 1004) 41.5 % MCV (test code = 1005) 88.3 fL MCH (test code = 1006) 30.0 PG MCHC (test code = 1007) 34.0 G/DL RDW (test code = 1038) 12.7 % NEUTROPHILS (test code = 1008) 50.9 % LYMPHOCYTES (test code = 1010) 36.4 % MONOCYTES (test code = 1011) 7.6 % EOSINOPHILS (test code = 1012) 4.0 % BASOPHILS (test code = 1013) 0.8 % IMMATURE GRANULOCYTES (test code = 1036) 0.3 % NUCLEATED RBCS (test code = 1065) 0.0 /100WBC'S PLATELET COUNT (test code = 1015) 232 K/UL ABSOLUTE NEUTROPHILS (test c ode = 1066) 3.28 K/UL ABSOLUTE LYMPHOCYTES (test c ode = 1067) 2.35 K/UL ABSOLUTE MONOCYTES (test cod e = 1068) 0.49 K/UL ABSOLUTE EOSINOPHILS (test c ode = 1040) 0.26 K/UL ABSOLUTE BASOPHILS (test cod e = 1069) 0.05 K/UL ABS IMMATURE GRANULOCYTES (t est code = 1020) 0.02 K/UL ABS NUCLEATED RBCS (test cod e = 44625) 0.00 K/UL CBC W/AUTO [id number] 00:00:00* Test Item Value Reference Range Interpretation Comme nts WBC (test code = 1001) 6.5 K/UL RBC (test code = 1002) 4.70 M/UL HEMOGLOBIN (test code = 1003) 14.1 G/DL HEMATOCRIT (test code = 1004) 41.5 % MCV (test code = 1005) 88.3 fL MCH (test code = 1006) 30.0 PG MCHC (test code = 1007) 34.0 G/DL RDW (test code = 1038) 12.7 % NEUTROPHILS (test code = 1008) 50.9 % LYMPHOCYTES (test code = 1010) 36.4 % MONOCYTES (test code = 1011) 7.6 % EOSINOPHILS (test code = 1012) 4.0 % BASOPHILS (test code = 1013) 0.8 % IMMATURE GRANULOCYTES (test code = 1036) 0.3 % NUCLEATED RBCS (test code = 1065) 0.0 /100WBC'S PLATELET COUNT (test code = 1015) 232 K/UL ABSOLUTE NEUTROPHILS (test c ode = 1066) 3.28 K/UL ABSOLUTE LYMPHOCYTES (test c ode = 1067) 2.35 K/UL ABSOLUTE MONOCYTES (test cod e = 1068) 0.49 K/UL ABSOLUTE EOSINOPHILS (test c ode = 1040) 0.26 K/UL ABSOLUTE BASOPHILS (test cod e = 1069) 0.05 K/UL ABS IMMATURE GRANULOCYTES (t est code = 1020) 0.02 K/UL ABS NUCLEATED RBCS (test cod e = 46302) 0.00 K/UL COMPREHENSIVE METABOLIC [id number] 00:00:00* Test Item Value Reference Range Interpretation Comme nts GLUCOSE (test code = 2217) 290 MG/DL BUN (test code = 2208) 16 MG/DL CREATININE (test code = 2214) 0.48 MG/DL eGFR (2020 CKD-EPI) (test code = 21346) 102 ML/MIN/1.73 CALC BUN/CREAT (test code = 2235) 33 RATIO SODIUM (test code = 2231) 142 MEQ/L POTASSIUM (test code = 2228) 4.5 MEQ/L CHLORIDE (test code = 2215) 102 MEQ/L CARBON DIOXIDE (test code = 2206) 26 MEQ/L CALCIUM (test code = 2209) 9.7 MG/DL PROTEIN, TOTAL (test code = 2229) 7.5 G/DL ALBUMIN (test code = 2201) 4.3 G/DL CALC GLOBULIN (test code = 2240) 3.2 G/DL CALC A/G RATIO (test code = 2234) 1.3 RATIO BILIRUBIN, TOTAL (test code = 2207) 0.7 MG/DL ALKALINE PHOSPHATASE (test code = 2204) 111 U/L AST (test code = 2218) 24 U/L ALT (test code = 2219) 29 U/L LIPID [id number] 00:00:00* Test Item Value Reference Range Interpretation Comme nts CHOLESTEROL (test code = 2210) 168 MG/DL TRIGLYCERIDES (test code = 2232) 99 MG/DL HDL CHOLESTEROL (test code = 2220) 52 MG/DL CALC LDL CHOL (test code = 2237) 97 MG/DL RISK RATIO LDL/HDL (test cod e = 2238) 1.87 RATIO HEMOGLOBIN [id number] 00:00:00* Test Item Value Reference Range Interpretation Comme nts HEMOGLOBIN A1c (test code = 11844) 11.2 % HEMOGLOBIN [id number] 00:00:00* Test Item Value Reference Range Interpretation Comme nts HEMOGLOBIN A1c (test code = 34968) 11.2 % CBC W/AUTO [id number] 00:00:00* Test Item Value Reference Range Interpretation Comme nts WBC (test code = 1001) 6.5 K/UL RBC (test code = 1002) 4.70 M/UL HEMOGLOBIN (test code = 1003) 14.1 G/DL HEMATOCRIT (test code = 1004) 41.5 % MCV (test code = 1005) 88.3 fL MCH (test code = 1006) 30.0 PG MCHC (test code = 1007) 34.0 G/DL RDW (test code = 1038) 12.7 % NEUTROPHILS (test code = 1008) 50.9 % LYMPHOCYTES (test code = 1010) 36.4 % MONOCYTES (test code = 1011) 7.6 % EOSINOPHILS (test code = 1012) 4.0 % BASOPHILS (test code = 1013) 0.8 % IMMATURE GRANULOCYTES (test code = 1036) 0.3 % NUCLEATED RBCS (test code = 1065) 0.0 /100WBC'S PLATELET COUNT (test code = 1015) 232 K/UL ABSOLUTE NEUTROPHILS (test c ode = 1066) 3.28 K/UL ABSOLUTE LYMPHOCYTES (test c ode = 1067) 2.35 K/UL ABSOLUTE MONOCYTES (test cod e = 1068) 0.49 K/UL ABSOLUTE EOSINOPHILS (test c ode = 1040) 0.26 K/UL ABSOLUTE BASOPHILS (test cod e = 1069) 0.05 K/UL ABS IMMATURE GRANULOCYTES (t est code = 1020) 0.02 K/UL ABS NUCLEATED RBCS (test cod e = 89638) 0.00 K/UL Toney F ZurdoCOMPREHENSIVE METABOLIC [id number] 00:00:00* Test Item Value Reference Range Interpretation Comme nts GLUCOSE (test code = 2217) 290 MG/DL BUN (test code = 2208) 16 MG/DL CREATININE (test code = 2214) 0.48 MG/DL eGFR (2020 CKD-EPI) (test code = 03234) 102 ML/MIN/1.73 CALC BUN/CREAT (test code = 2235) 33 RATIO SODIUM (test code = 2231) 142 MEQ/L POTASSIUM (test code = 2228) 4.5 MEQ/L CHLORIDE (test code = 2215) 102 MEQ/L CARBON DIOXIDE (test code = 2206) 26 MEQ/L CALCIUM (test code = 2209) 9.7 MG/DL PROTEIN, TOTAL (test code = 2229) 7.5 G/DL ALBUMIN (test code = 2201) 4.3 G/DL CALC GLOBULIN (test code = 2240) 3.2 G/DL CALC A/G RATIO (test code = 2234) 1.3 RATIO BILIRUBIN, TOTAL (test code = 2207) 0.7 MG/DL ALKALINE PHOSPHATASE (test code = 2204) 111 U/L AST (test code = 2218) 24 U/L ALT (test code = 2219) 29 U/L Toney RennerHEMOGLOBIN [id number] 00:00:00* Test Item Value Reference Range Interpretation Comme nts HEMOGLOBIN A1c (test code = 42042) 8.6 % Toney RennerCOMPREHENSIVE METABOLIC [id number] 00:00:00* Test Item Value Reference Range Interpretation Comme nts GLUCOSE (test code = 2217) 269 MG/DL BUN (test code = 2208) 16 MG/DL CREATININE (test code = 2214) 0.58 MG/DL eGFR (2020 CKD-EPI) (test co de = 64424) 97 ML/MIN/1.73 CALC BUN/CREAT (test code = 2235) 28 RATIO SODIUM (test code = 2231) 140 MEQ/L POTASSIUM (test code = 2228) 4.2 MEQ/L CHLORIDE (test code = 2215) 102 MEQ/L CARBON DIOXIDE (test code = 2206) 25 MEQ/L CALCIUM (test code = 2209) 9.7 MG/DL PROTEIN, TOTAL (test code = 2229) 7.2 G/DL ALBUMIN (test code = 2201) 4.2 G/DL CALC GLOBULIN (test code = 2240) 3.0 G/DL CALC A/G RATIO (test code = 2234) 1.4 RATIO BILIRUBIN, TOTAL (test code = 2207) 0.3 MG/DL ALKALINE PHOSPHATASE (test code = 2204) 95 U/L AST (test code = 2218) 27 U/L ALT (test code = 2219) 32 U/L Toney RennerCOMPREHENSIVE METABOLIC [id number] 00:00:00* Test Item Value Reference Range Interpretation Comme nts GLUCOSE (test code = 2217) 269 MG/DL BUN (test code = 2208) 16 MG/DL CREATININE (test code = 2214) 0.58 MG/DL eGFR (2020 CKD-EPI) (test co de = 23657) 97 ML/MIN/1.73 CALC BUN/CREAT (test code = 2235) 28 RATIO SODIUM (test code = 2231) 140 MEQ/L POTASSIUM (test code = 2228) 4.2 MEQ/L CHLORIDE (test code = 2215) 102 MEQ/L CARBON DIOXIDE (test code = 2206) 25 MEQ/L CALCIUM (test code = 2209) 9.7 MG/DL PROTEIN, TOTAL (test code = 2229) 7.2 G/DL ALBUMIN (test code = 2201) 4.2 G/DL CALC GLOBULIN (test code = 2240) 3.0 G/DL CALC A/G RATIO (test code = 2234) 1.4 RATIO BILIRUBIN, TOTAL (test code = 2207) 0.3 MG/DL ALKALINE PHOSPHATASE (test code = 2204) 95 U/L AST (test code = 2218) 27 U/L ALT (test code = 2219) 32 U/L LIPID [id number] 00:00:00* Test Item Value Reference Range Interpretation Comme nts CHOLESTEROL (test code = 2210) 225 MG/DL TRIGLYCERIDES (test code = 2232) 247 MG/DL HDL CHOLESTEROL (test code = 2220) 44 MG/DL CALC LDL CHOL (test code = 2237) 141 MG/DL RISK RATIO LDL/HDL (test cod e = 2238) 3.20 RATIO HEMOGLOBIN [id number] 00:00:00* Test Item Value Reference Range Interpretation Comme nts HEMOGLOBIN A1c (test code = 68031) 8.6 % HEMOGLOBIN [id number] 00:00:00* Test Item Value Reference Range Interpretation Comme nts HEMOGLOBIN A1c (test code = 77210) 8.6 % COMPREHENSIVE METABOLIC [id number] 00:00:00* Test Item Value Reference Range Interpretation Comme nts GLUCOSE (test code = 2217) 269 MG/DL BUN (test code = 2208) 16 MG/DL CREATININE (test code = 2214) 0.58 MG/DL eGFR (2020 CKD-EPI) (test co de = 91623) 97 ML/MIN/1.73 CALC BUN/CREAT (test code = 2235) 28 RATIO SODIUM (test code = 2231) 140 MEQ/L POTASSIUM (test code = 2228) 4.2 MEQ/L CHLORIDE (test code = 2215) 102 MEQ/L CARBON DIOXIDE (test code = 2206) 25 MEQ/L CALCIUM (test code = 2209) 9.7 MG/DL PROTEIN, TOTAL (test code = 2229) 7.2 G/DL ALBUMIN (test code = 2201) 4.2 G/DL CALC GLOBULIN (test code = 2240) 3.0 G/DL CALC A/G RATIO (test code = 2234) 1.4 RATIO BILIRUBIN, TOTAL (test code = 2207) 0.3 MG/DL ALKALINE PHOSPHATASE (test code = 2204) 95 U/L AST (test code = 2218) 27 U/L ALT (test code = 2219) 32 U/L COMPREHENSIVE METABOLIC [id number] 00:00:00* Test Item Value Reference Range Interpretation Comme nts GLUCOSE (test code = 2217) 269 MG/DL BUN (test code = 2208) 16 MG/DL CREATININE (test code = 2214) 0.58 MG/DL eGFR (2020 CKD-EPI) (test co de = 14379) 97 ML/MIN/1.73 CALC BUN/CREAT (test code = 2235) 28 RATIO SODIUM (test code = 2231) 140 MEQ/L POTASSIUM (test code = 2228) 4.2 MEQ/L CHLORIDE (test code = 2215) 102 MEQ/L CARBON DIOXIDE (test code = 2206) 25 MEQ/L CALCIUM (test code = 2209) 9.7 MG/DL PROTEIN, TOTAL (test code = 2229) 7.2 G/DL ALBUMIN (test code = 2201) 4.2 G/DL CALC GLOBULIN (test code = 2240) 3.0 G/DL CALC A/G RATIO (test code = 2234) 1.4 RATIO BILIRUBIN, TOTAL (test code = 2207) 0.3 MG/DL ALKALINE PHOSPHATASE (test code = 2204) 95 U/L AST (test code = 2218) 27 U/L ALT (test code = 2219) 32 U/L LIPID [id number] 00:00:00* Test Item Value Reference Range Interpretation Comme nts CHOLESTEROL (test code = 2210) 225 MG/DL TRIGLYCERIDES (test code = 2232) 247 MG/DL HDL CHOLESTEROL (test code = 2220) 44 MG/DL CALC LDL CHOL (test code = 2237) 141 MG/DL RISK RATIO LDL/HDL (test cod e = 2238) 3.20 RATIO LIPID [id number] 00:00:00* Test Item Value Reference Range Interpretation Comme nts CHOLESTEROL (test code = 2210) 225 MG/DL TRIGLYCERIDES (test code = 2232) 247 MG/DL HDL CHOLESTEROL (test code = 2220) 44 MG/DL CALC LDL CHOL (test code = 2237) 141 MG/DL RISK RATIO LDL/HDL (test cod e = 2238) 3.20 RATIO HEMOGLOBIN [id number] 00:00:00* Test Item Value Reference Range Interpretation Comme nts HEMOGLOBIN A1c (test code = 63486) 8.6 % HEMOGLOBIN [id number] 00:00:00* Test Item Value Reference Range Interpretation Comme nts HEMOGLOBIN A1c (test code = 38143) 8.6 % HEMOGLOBIN [id number] 00:00:00* Test Item Value Reference Range Interpretation Comme nts HEMOGLOBIN A1c (test code = 14926) 8.6 % COMPREHENSIVE METABOLIC [id number] 00:00:00* Test Item Value Reference Range Interpretation Comme nts GLUCOSE (test code = 2217) 269 MG/DL BUN (test code = 2208) 16 MG/DL CREATININE (test code = 2214) 0.58 MG/DL eGFR (2020 CKD-EPI) (test co de = 97848) 97 ML/MIN/1.73 CALC BUN/CREAT (test code = 2235) 28 RATIO SODIUM (test code = 2231) 140 MEQ/L POTASSIUM (test code = 2228) 4.2 MEQ/L CHLORIDE (test code = 2215) 102 MEQ/L CARBON DIOXIDE (test code = 2206) 25 MEQ/L CALCIUM (test code = 2209) 9.7 MG/DL PROTEIN, TOTAL (test code = 2229) 7.2 G/DL ALBUMIN (test code = 2201) 4.2 G/DL CALC GLOBULIN (test code = 2240) 3.0 G/DL CALC A/G RATIO (test code = 2234) 1.4 RATIO BILIRUBIN, TOTAL (test code = 2207) 0.3 MG/DL ALKALINE PHOSPHATASE (test code = 2204) 95 U/L AST (test code = 2218) 27 U/L ALT (test code = 2219) 32 U/L COMPREHENSIVE METABOLIC [id number] 00:00:00* Test Item Value Reference Range Interpretation Comme nts GLUCOSE (test code = 2217) 269 MG/DL BUN (test code = 2208) 16 MG/DL CREATININE (test code = 2214) 0.58 MG/DL eGFR (2020 CKD-EPI) (test co de = 83381) 97 ML/MIN/1.73 CALC BUN/CREAT (test code = 2235) 28 RATIO SODIUM (test code = 2231) 140 MEQ/L POTASSIUM (test code = 2228) 4.2 MEQ/L CHLORIDE (test code = 2215) 102 MEQ/L CARBON DIOXIDE (test code = 2206) 25 MEQ/L CALCIUM (test code = 2209) 9.7 MG/DL PROTEIN, TOTAL (test code = 2229) 7.2 G/DL ALBUMIN (test code = 2201) 4.2 G/DL CALC GLOBULIN (test code = 2240) 3.0 G/DL CALC A/G RATIO (test code = 2234) 1.4 RATIO BILIRUBIN, TOTAL (test code = 2207) 0.3 MG/DL ALKALINE PHOSPHATASE (test code = 2204) 95 U/L AST (test code = 2218) 27 U/L ALT (test code = 2219) 32 U/L LIPID [id number] 00:00:00* Test Item Value Reference Range Interpretation Comme nts CHOLESTEROL (test code = 2210) 225 MG/DL TRIGLYCERIDES (test code = 2232) 247 MG/DL HDL CHOLESTEROL (test code = 2220) 44 MG/DL CALC LDL CHOL (test code = 2237) 141 MG/DL RISK RATIO LDL/HDL (test cod e = 2238) 3.20 RATIO LIPID [id number] 00:00:00* Test Item Value Reference Range Interpretation Comme nts CHOLESTEROL (test code = 2210) 225 MG/DL TRIGLYCERIDES (test code = 2232) 247 MG/DL HDL CHOLESTEROL (test code = 2220) 44 MG/DL CALC LDL CHOL (test code = 2237) 141 MG/DL RISK RATIO LDL/HDL (test cod e = 2238) 3.20 RATIO HEMOGLOBIN [id number] 00:00:00* Test Item Value Reference Range Interpretation Comme nts HEMOGLOBIN A1c (test code = 25515) 8.6 % HEMOGLOBIN [id number] 00:00:00* Test Item Value Reference Range Interpretation Comme nts HEMOGLOBIN A1c (test code = 53096) 8.6 % HEMOGLOBIN [id number] 00:00:00* Test Item Value Reference Range Interpretation Comme nts HEMOGLOBIN A1c (test code = 95264) 8.6 % COMPREHENSIVE METABOLIC [id number] 00:00:00* Test Item Value Reference Range Interpretation Comme nts GLUCOSE (test code = 2217) 269 MG/DL BUN (test code = 2208) 16 MG/DL CREATININE (test code = 2214) 0.58 MG/DL eGFR (2020 CKD-EPI) (test co de = 98604) 97 ML/MIN/1.73 CALC BUN/CREAT (test code = 2235) 28 RATIO SODIUM (test code = 2231) 140 MEQ/L POTASSIUM (test code = 2228) 4.2 MEQ/L CHLORIDE (test code = 2215) 102 MEQ/L CARBON DIOXIDE (test code = 2206) 25 MEQ/L CALCIUM (test code = 2209) 9.7 MG/DL PROTEIN, TOTAL (test code = 2229) 7.2 G/DL ALBUMIN (test code = 2201) 4.2 G/DL CALC GLOBULIN (test code = 2240) 3.0 G/DL CALC A/G RATIO (test code = 2234) 1.4 RATIO BILIRUBIN, TOTAL (test code = 2207) 0.3 MG/DL ALKALINE PHOSPHATASE (test code = 2204) 95 U/L AST (test code = 2218) 27 U/L ALT (test code = 2219) 32 U/L COMPREHENSIVE METABOLIC [id number] 00:00:00* Test Item Value Reference Range Interpretation Comme nts GLUCOSE (test code = 2217) 269 MG/DL BUN (test code = 2208) 16 MG/DL CREATININE (test code = 2214) 0.58 MG/DL eGFR (2020 CKD-EPI) (test co de = 06499) 97 ML/MIN/1.73 CALC BUN/CREAT (test code = 2235) 28 RATIO SODIUM (test code = 2231) 140 MEQ/L POTASSIUM (test code = 2228) 4.2 MEQ/L CHLORIDE (test code = 2215) 102 MEQ/L CARBON DIOXIDE (test code = 2206) 25 MEQ/L CALCIUM (test code = 2209) 9.7 MG/DL PROTEIN, TOTAL (test code = 2229) 7.2 G/DL ALBUMIN (test code = 2201) 4.2 G/DL CALC GLOBULIN (test code = 2240) 3.0 G/DL CALC A/G RATIO (test code = 2234) 1.4 RATIO BILIRUBIN, TOTAL (test code = 2207) 0.3 MG/DL ALKALINE PHOSPHATASE (test code = 2204) 95 U/L AST (test code = 2218) 27 U/L ALT (test code = 2219) 32 U/L LIPID [id number] 00:00:00* Test Item Value Reference Range Interpretation Comme nts CHOLESTEROL (test code = 2210) 225 MG/DL TRIGLYCERIDES (test code = 2232) 247 MG/DL HDL CHOLESTEROL (test code = 2220) 44 MG/DL CALC LDL CHOL (test code = 2237) 141 MG/DL RISK RATIO LDL/HDL (test cod e = 2238) 3.20 RATIO LIPID [id number] 00:00:00* Test Item Value Reference Range Interpretation Comme nts CHOLESTEROL (test code = 2210) 225 MG/DL TRIGLYCERIDES (test code = 2232) 247 MG/DL HDL CHOLESTEROL (test code = 2220) 44 MG/DL CALC LDL CHOL (test code = 2237) 141 MG/DL RISK RATIO LDL/HDL (test cod e = 2238) 3.20 RATIO HEMOGLOBIN [id number] 00:00:00* Test Item Value Reference Range Interpretation Comme nts HEMOGLOBIN A1c (test code = 64438) 8.6 % HEMOGLOBIN [id number] 00:00:00* Test Item Value Reference Range Interpretation Comme nts HEMOGLOBIN A1c (test code = 64446) 8.6 % HEMOGLOBIN [id number] 00:00:00* Test Item Value Reference Range Interpretation Comme nts HEMOGLOBIN A1c (test code = 97599) 8.6 % COMPREHENSIVE METABOLIC [id number] 00:00:00* Test Item Value Reference Range Interpretation Comme nts GLUCOSE (test code = 2217) 269 MG/DL BUN (test code = 2208) 16 MG/DL CREATININE (test code = 2214) 0.58 MG/DL eGFR (2020 CKD-EPI) (test co de = 71181) 97 ML/MIN/1.73 CALC BUN/CREAT (test code = 2235) 28 RATIO SODIUM (test code = 2231) 140 MEQ/L POTASSIUM (test code = 2228) 4.2 MEQ/L CHLORIDE (test code = 2215) 102 MEQ/L CARBON DIOXIDE (test code = 2206) 25 MEQ/L CALCIUM (test code = 2209) 9.7 MG/DL PROTEIN, TOTAL (test code = 2229) 7.2 G/DL ALBUMIN (test code = 2201) 4.2 G/DL CALC GLOBULIN (test code = 2240) 3.0 G/DL CALC A/G RATIO (test code = 2234) 1.4 RATIO BILIRUBIN, TOTAL (test code = 2207) 0.3 MG/DL ALKALINE PHOSPHATASE (test code = 2204) 95 U/L AST (test code = 2218) 27 U/L ALT (test code = 2219) 32 U/L LIPID [id number] 00:00:00* Test Item Value Reference Range Interpretation Comme nts CHOLESTEROL (test code = 2210) 225 MG/DL TRIGLYCERIDES (test code = 2232) 247 MG/DL HDL CHOLESTEROL (test code = 2220) 44 MG/DL CALC LDL CHOL (test code = 2237) 141 MG/DL RISK RATIO LDL/HDL (test cod e = 2238) 3.20 RATIO HEMOGLOBIN [id number] 00:00:00* Test Item Value Reference Range Interpretation Comme nts HEMOGLOBIN A1c (test code = 48727) 8.6 % HEMOGLOBIN [id number] 00:00:00* Test Item Value Reference Range Interpretation Comme nts HEMOGLOBIN A1c (test code = 42774) 8.6 % COMPREHENSIVE METABOLIC [id number] 00:00:00* Test Item Value Reference Range Interpretation Comme nts GLUCOSE (test code = 2217) 269 MG/DL BUN (test code = 2208) 16 MG/DL CREATININE (test code = 2214) 0.58 MG/DL eGFR (2020 CKD-EPI) (test co de = 78786) 97 ML/MIN/1.73 CALC BUN/CREAT (test code = 2235) 28 RATIO SODIUM (test code = 2231) 140 MEQ/L POTASSIUM (test code = 2228) 4.2 MEQ/L CHLORIDE (test code = 2215) 102 MEQ/L CARBON DIOXIDE (test code = 2206) 25 MEQ/L CALCIUM (test code = 2209) 9.7 MG/DL PROTEIN, TOTAL (test code = 2229) 7.2 G/DL ALBUMIN (test code = 2201) 4.2 G/DL CALC GLOBULIN (test code = 2240) 3.0 G/DL CALC A/G RATIO (test code = 2234) 1.4 RATIO BILIRUBIN, TOTAL (test code = 2207) 0.3 MG/DL ALKALINE PHOSPHATASE (test code = 2204) 95 U/L AST (test code = 2218) 27 U/L ALT (test code = 2219) 32 U/L COMPREHENSIVE METABOLIC [id number] 00:00:00* Test Item Value Reference Range Interpretation Comme nts GLUCOSE (test code = 2217) 269 MG/DL BUN (test code = 2208) 16 MG/DL CREATININE (test code = 2214) 0.58 MG/DL eGFR (2020 CKD-EPI) (test co de = 98877) 97 ML/MIN/1.73 CALC BUN/CREAT (test code = 2235) 28 RATIO SODIUM (test code = 2231) 140 MEQ/L POTASSIUM (test code = 2228) 4.2 MEQ/L CHLORIDE (test code = 2215) 102 MEQ/L CARBON DIOXIDE (test code = 2206) 25 MEQ/L CALCIUM (test code = 2209) 9.7 MG/DL PROTEIN, TOTAL (test code = 2229) 7.2 G/DL ALBUMIN (test code = 2201) 4.2 G/DL CALC GLOBULIN (test code = 2240) 3.0 G/DL CALC A/G RATIO (test code = 2234) 1.4 RATIO BILIRUBIN, TOTAL (test code = 2207) 0.3 MG/DL ALKALINE PHOSPHATASE (test code = 2204) 95 U/L AST (test code = 2218) 27 U/L ALT (test code = 2219) 32 U/L LIPID [id number] 00:00:00* Test Item Value Reference Range Interpretation Comme nts CHOLESTEROL (test code = 2210) 225 MG/DL TRIGLYCERIDES (test code = 2232) 247 MG/DL HDL CHOLESTEROL (test code = 2220) 44 MG/DL CALC LDL CHOL (test code = 2237) 141 MG/DL RISK RATIO LDL/HDL (test cod e = 2238) 3.20 RATIO LIPID [id number] 00:00:00* Test Item Value Reference Range Interpretation Comme nts CHOLESTEROL (test code = 2210) 225 MG/DL TRIGLYCERIDES (test code = 2232) 247 MG/DL HDL CHOLESTEROL (test code = 2220) 44 MG/DL CALC LDL CHOL (test code = 2237) 141 MG/DL RISK RATIO LDL/HDL (test cod e = 2238) 3.20 RATIO HEMOGLOBIN [id number] 00:00:00* Test Item Value Reference Range Interpretation Comme nts HEMOGLOBIN A1c (test code = 12778) 8.6 % HEMOGLOBIN [id number] 00:00:00* Test Item Value Reference Range Interpretation Comme nts HEMOGLOBIN A1c (test code = 70782) 8.6 % HEMOGLOBIN [id number] 00:00:00* Test Item Value Reference Range Interpretation Comme nts HEMOGLOBIN A1c (test code = 69691) 8.6 % COMPREHENSIVE METABOLIC [id number] 00:00:00* Test Item Value Reference Range Interpretation Comme nts GLUCOSE (test code = 2217) 269 MG/DL BUN (test code = 2208) 16 MG/DL CREATININE (test code = 2214) 0.58 MG/DL eGFR (2020 CKD-EPI) (test co de = 37861) 97 ML/MIN/1.73 CALC BUN/CREAT (test code = 2235) 28 RATIO SODIUM (test code = 2231) 140 MEQ/L POTASSIUM (test code = 2228) 4.2 MEQ/L CHLORIDE (test code = 2215) 102 MEQ/L CARBON DIOXIDE (test code = 2206) 25 MEQ/L CALCIUM (test code = 2209) 9.7 MG/DL PROTEIN, TOTAL (test code = 2229) 7.2 G/DL ALBUMIN (test code = 2201) 4.2 G/DL CALC GLOBULIN (test code = 2240) 3.0 G/DL CALC A/G RATIO (test code = 2234) 1.4 RATIO BILIRUBIN, TOTAL (test code = 2207) 0.3 MG/DL ALKALINE PHOSPHATASE (test code = 2204) 95 U/L AST (test code = 2218) 27 U/L ALT (test code = 2219) 32 U/L COMPREHENSIVE METABOLIC [id number] 00:00:00* Test Item Value Reference Range Interpretation Comme nts GLUCOSE (test code = 2217) 269 MG/DL BUN (test code = 2208) 16 MG/DL CREATININE (test code = 2214) 0.58 MG/DL eGFR (2020 CKD-EPI) (test co de = 58098) 97 ML/MIN/1.73 CALC BUN/CREAT (test code = 2235) 28 RATIO SODIUM (test code = 223) 140 MEQ/L POTASSIUM (test code = 2228) 4.2 MEQ/L CHLORIDE (test code = 2215) 102 MEQ/L CARBON DIOXIDE (test code = 2206) 25 MEQ/L CALCIUM (test code = 2209) 9.7 MG/DL PROTEIN, TOTAL (test code = 2229) 7.2 G/DL ALBUMIN (test code = 2201) 4.2 G/DL CALC GLOBULIN (test code = 2240) 3.0 G/DL CALC A/G RATIO (test code = 2234) 1.4 RATIO BILIRUBIN, TOTAL (test code = 2207) 0.3 MG/DL ALKALINE PHOSPHATASE (test code = 2204) 95 U/L AST (test code = 2218) 27 U/L ALT (test code = 2219) 32 U/L LIPID [id number] 00:00:00* Test Item Value Reference Range Interpretation Comme nts CHOLESTEROL (test code = 2210) 225 MG/DL TRIGLYCERIDES (test code = 2232) 247 MG/DL HDL CHOLESTEROL (test code = 2220) 44 MG/DL CALC LDL CHOL (test code = 2237) 141 MG/DL RISK RATIO LDL/HDL (test cod e = 2238) 3.20 RATIO LIPID [id number] 00:00:00* Test Item Value Reference Range Interpretation Comme nts CHOLESTEROL (test code = 2210) 225 MG/DL TRIGLYCERIDES (test code = 2232) 247 MG/DL HDL CHOLESTEROL (test code = 2220) 44 MG/DL CALC LDL CHOL (test code = 2237) 141 MG/DL RISK RATIO LDL/HDL (test cod e = 2238) 3.20 RATIO HEMOGLOBIN [id number] 00:00:00* Test Item Value Reference Range Interpretation Comme nts HEMOGLOBIN A1c (test code = 85099) 8.6 % HEMOGLOBIN [id number] 00:00:00* Test Item Value Reference Range Interpretation Comme nts HEMOGLOBIN A1c (test code = 94616) 8.6 % HEMOGLOBIN [id number] 00:00:00* Test Item Value Reference Range Interpretation Comme nts HEMOGLOBIN A1c (test code = 75341) 8.6 % COMPREHENSIVE METABOLIC [id number] 00:00:00* Test Item Value Reference Range Interpretation Comme nts GLUCOSE (test code = 2217) 269 MG/DL BUN (test code = 2208) 16 MG/DL CREATININE (test code = 2214) 0.58 MG/DL eGFR (2020 CKD-EPI) (test co de = 17899) 97 ML/MIN/1.73 CALC BUN/CREAT (test code = 2235) 28 RATIO SODIUM (test code = 2231) 140 MEQ/L POTASSIUM (test code = 2228) 4.2 MEQ/L CHLORIDE (test code = 2215) 102 MEQ/L CARBON DIOXIDE (test code = 2206) 25 MEQ/L CALCIUM (test code = 2209) 9.7 MG/DL PROTEIN, TOTAL (test code = 2229) 7.2 G/DL ALBUMIN (test code = 2201) 4.2 G/DL CALC GLOBULIN (test code = 2240) 3.0 G/DL CALC A/G RATIO (test code = 2234) 1.4 RATIO BILIRUBIN, TOTAL (test code = 2207) 0.3 MG/DL ALKALINE PHOSPHATASE (test code = 2204) 95 U/L AST (test code = 2218) 27 U/L ALT (test code = 2219) 32 U/L COMPREHENSIVE METABOLIC [id number] 00:00:00* Test Item Value Reference Range Interpretation Comme nts GLUCOSE (test code = 2217) 269 MG/DL BUN (test code = 2208) 16 MG/DL CREATININE (test code = 2214) 0.58 MG/DL eGFR (2020 CKD-EPI) (test co de = 54356) 97 ML/MIN/1.73 CALC BUN/CREAT (test code = 2235) 28 RATIO SODIUM (test code = 2231) 140 MEQ/L POTASSIUM (test code = 2228) 4.2 MEQ/L CHLORIDE (test code = 2215) 102 MEQ/L CARBON DIOXIDE (test code = 2206) 25 MEQ/L CALCIUM (test code = 2209) 9.7 MG/DL PROTEIN, TOTAL (test code = 2229) 7.2 G/DL ALBUMIN (test code = 2201) 4.2 G/DL CALC GLOBULIN (test code = 2240) 3.0 G/DL CALC A/G RATIO (test code = 2234) 1.4 RATIO BILIRUBIN, TOTAL (test code = 2207) 0.3 MG/DL ALKALINE PHOSPHATASE (test code = 2204) 95 U/L AST (test code = 2218) 27 U/L ALT (test code = 2219) 32 U/L LIPID [id number] 00:00:00* Test Item Value Reference Range Interpretation Comme nts CHOLESTEROL (test code = 2210) 225 MG/DL TRIGLYCERIDES (test code = 2232) 247 MG/DL HDL CHOLESTEROL (test code = 2220) 44 MG/DL CALC LDL CHOL (test code = 2237) 141 MG/DL RISK RATIO LDL/HDL (test cod e = 2238) 3.20 RATIO LIPID [id number] 00:00:00* Test Item Value Reference Range Interpretation Comme nts CHOLESTEROL (test code = 2210) 225 MG/DL TRIGLYCERIDES (test code = 2232) 247 MG/DL HDL CHOLESTEROL (test code = 2220) 44 MG/DL CALC LDL CHOL (test code = 2237) 141 MG/DL RISK RATIO LDL/HDL (test cod e = 2238) 3.20 RATIO HEMOGLOBIN [id number] 00:00:00* Test Item Value Reference Range Interpretation Comme nts HEMOGLOBIN A1c (test code = 61335) 8.6 % HEMOGLOBIN [id number] 00:00:00* Test Item Value Reference Range Interpretation Comme nts HEMOGLOBIN A1c (test code = 47761) 8.6 % HEMOGLOBIN [id number] 00:00:00* Test Item Value Reference Range Interpretation Comme nts HEMOGLOBIN A1c (test code = 42122) 8.6 % COMPREHENSIVE METABOLIC [id number] 00:00:00* Test Item Value Reference Range Interpretation Comme nts GLUCOSE (test code = 2217) 269 MG/DL BUN (test code = 2208) 16 MG/DL CREATININE (test code = 2214) 0.58 MG/DL eGFR (2020 CKD-EPI) (test co de = 72662) 97 ML/MIN/1.73 CALC BUN/CREAT (test code = 2235) 28 RATIO SODIUM (test code = 2231) 140 MEQ/L POTASSIUM (test code = 2228) 4.2 MEQ/L CHLORIDE (test code = 2215) 102 MEQ/L CARBON DIOXIDE (test code = 2206) 25 MEQ/L CALCIUM (test code = 2209) 9.7 MG/DL PROTEIN, TOTAL (test code = 2229) 7.2 G/DL ALBUMIN (test code = 2201) 4.2 G/DL CALC GLOBULIN (test code = 2240) 3.0 G/DL CALC A/G RATIO (test code = 2234) 1.4 RATIO BILIRUBIN, TOTAL (test code = 2207) 0.3 MG/DL ALKALINE PHOSPHATASE (test code = 2204) 95 U/L AST (test code = 2218) 27 U/L ALT (test code = 2219) 32 U/L LIPID [id number] 00:00:00* Test Item Value Reference Range Interpretation Comme nts CHOLESTEROL (test code = 2210) 225 MG/DL TRIGLYCERIDES (test code = 2232) 247 MG/DL HDL CHOLESTEROL (test code = 2220) 44 MG/DL CALC LDL CHOL (test code = 2237) 141 MG/DL RISK RATIO LDL/HDL (test cod e = 2238) 3.20 RATIO HEMOGLOBIN [id number] 00:00:00* Test Item Value Reference Range Interpretation Comme nts HEMOGLOBIN A1c (test code = 00551) 8.6 % HEMOGLOBIN [id number] 00:00:00* Test Item Value Reference Range Interpretation Comme nts HEMOGLOBIN A1c (test code = 04509) 8.6 % LIPID [id number] 00:00:00* Test Item Value Reference Range Interpretation Comme nts CHOLESTEROL (test code = 2210) 225 MG/DL TRIGLYCERIDES (test code = 2232) 247 MG/DL HDL CHOLESTEROL (test code = 2220) 44 MG/DL CALC LDL CHOL (test code = 2237) 141 MG/DL RISK RATIO LDL/HDL (test cod e = 2238) 3.20 RATIO Toney RennerHEMOGLOBIN [id number] 00:00:00* Test Item Value Reference Range Interpretation Comme nts HEMOGLOBIN A1c (test code = 63622) 7.9 % Toney RennerCOMPREHENSIVE METABOLIC [id number] 00:00:00* Test Item Value Reference Range Interpretation Comme nts GLUCOSE (test code = 2217) 136 MG/DL BUN (test code = 2208) 16 MG/DL CREATININE (test code = 2214) 0.55 MG/DL eGFR AMER. (test cod e = 22575) 111 ML/MIN/1.73 eGFR NON- AMER. (test code = 21584) 96 ML/MIN/1.73 CALC BUN/CREAT (test code = 2235) 29 RATIO SODIUM (test code = 2231) 143 MEQ/L POTASSIUM (test code = 2228) 4.3 MEQ/L CHLORIDE (test code = 2215) 104 MEQ/L CARBON DIOXIDE (test code = 2206) 25 MEQ/L CALCIUM (test code = 2209) 9.7 MG/DL PROTEIN, TOTAL (test code = 222) 7.6 G/DL ALBUMIN (test code = 2201) 4.4 G/DL CALC GLOBULIN (test code = 2240) 3.2 G/DL CALC A/G RATIO (test code = 2234) 1.4 RATIO BILIRUBIN, TOTAL (test code = 2207) 0.6 MG/DL ALKALINE PHOSPHATASE (test code = 2204) 101 U/L AST (test code = 2218) 26 U/L ALT (test code = 2219) 25 U/L LIPID [id number] 00:00:00* Test Item Value Reference Range Interpretation Comme nts CHOLESTEROL (test code = 2210) 146 MG/DL TRIGLYCERIDES (test code = 2232) 60 MG/DL HDL CHOLESTEROL (test code = 2220) 47 MG/DL CALC LDL CHOL (test code = 2237) 85 MG/DL RISK RATIO LDL/HDL (test cod e = 2238) 1.81 RATIO HEMOGLOBIN [id number] 00:00:00* Test Item Value Reference Range Interpretation Comme nts HEMOGLOBIN A1c (test code = 07798) 7.9 % HEMOGLOBIN [id number] 00:00:00* Test Item Value Reference Range Interpretation Comme nts HEMOGLOBIN A1c (test code = 01670) 7.9 % COMPREHENSIVE METABOLIC [id number] 00:00:00* Test Item Value Reference Range Interpretation Comme nts GLUCOSE (test code = 2216) 136 MG/DL BUN (test code = 8) 16 MG/DL CREATININE (test code = 2214) 0.55 MG/DL eGFR AMER. (test cod e = 30488) 111 ML/MIN/1.73 eGFR NON- AMER. (test code = 61783) 96 ML/MIN/1.73 CALC BUN/CREAT (test code = 2235) 29 RATIO SODIUM (test code = 2231) 143 MEQ/L POTASSIUM (test code = 2228) 4.3 MEQ/L CHLORIDE (test code = 2215) 104 MEQ/L CARBON DIOXIDE (test code = 2206) 25 MEQ/L CALCIUM (test code = 2209) 9.7 MG/DL PROTEIN, TOTAL (test code = 2229) 7.6 G/DL ALBUMIN (test code = 2201) 4.4 G/DL CALC GLOBULIN (test code = 2240) 3.2 G/DL CALC A/G RATIO (test code = 2234) 1.4 RATIO BILIRUBIN, TOTAL (test code = 2207) 0.6 MG/DL ALKALINE PHOSPHATASE (test code = 2204) 101 U/L AST (test code = 2218) 26 U/L ALT (test code = 2219) 25 U/L COMPREHENSIVE METABOLIC [id number] 00:00:00* Test Item Value Reference Range Interpretation Comme nts GLUCOSE (test code = 2217) 136 MG/DL BUN (test code = 2208) 16 MG/DL CREATININE (test code = 2214) 0.55 MG/DL eGFR AMER. (test cod e = 67862) 111 ML/MIN/1.73 eGFR NON- AMER. (test code = 81198) 96 ML/MIN/1.73 CALC BUN/CREAT (test code = 2235) 29 RATIO SODIUM (test code = 2231) 143 MEQ/L POTASSIUM (test code = 2228) 4.3 MEQ/L CHLORIDE (test code = 2215) 104 MEQ/L CARBON DIOXIDE (test code = 2206) 25 MEQ/L CALCIUM (test code = 2209) 9.7 MG/DL PROTEIN, TOTAL (test code = 2229) 7.6 G/DL ALBUMIN (test code = 2201) 4.4 G/DL CALC GLOBULIN (test code = 2240) 3.2 G/DL CALC A/G RATIO (test code = 2234) 1.4 RATIO BILIRUBIN, TOTAL (test code = 2207) 0.6 MG/DL ALKALINE PHOSPHATASE (test code = 2204) 101 U/L AST (test code = 2218) 26 U/L ALT (test code = 2219) 25 U/L LIPID [id number] 00:00:00* Test Item Value Reference Range Interpretation Comme nts CHOLESTEROL (test code = 2210) 146 MG/DL TRIGLYCERIDES (test code = 2232) 60 MG/DL HDL CHOLESTEROL (test code = 2220) 47 MG/DL CALC LDL CHOL (test code = 2237) 85 MG/DL RISK RATIO LDL/HDL (test cod e = 2238) 1.81 RATIO LIPID [id number] 00:00:00* Test Item Value Reference Range Interpretation Comme nts CHOLESTEROL (test code = 2210) 146 MG/DL TRIGLYCERIDES (test code = 2232) 60 MG/DL HDL CHOLESTEROL (test code = 2220) 47 MG/DL CALC LDL CHOL (test code = 2237) 85 MG/DL RISK RATIO LDL/HDL (test cod e = 2238) 1.81 RATIO HEMOGLOBIN [id number] 00:00:00* Test Item Value Reference Range Interpretation Comme nts HEMOGLOBIN A1c (test code = 08881) 7.9 % HEMOGLOBIN [id number] 00:00:00* Test Item Value Reference Range Interpretation Comme nts HEMOGLOBIN A1c (test code = 38577) 7.9 % HEMOGLOBIN [id number] 00:00:00* Test Item Value Reference Range Interpretation Comme nts HEMOGLOBIN A1c (test code = 70378) 7.9 % COMPREHENSIVE METABOLIC [id number] 00:00:00* Test Item Value Reference Range Interpretation Comme nts GLUCOSE (test code = 2217) 136 MG/DL BUN (test code = 2208) 16 MG/DL CREATININE (test code = 2214) 0.55 MG/DL eGFR AMER. (test cod e = 28054) 111 ML/MIN/1.73 eGFR NON- AMER. (test code = 96671) 96 ML/MIN/1.73 CALC BUN/CREAT (test code = 2235) 29 RATIO SODIUM (test code = 2231) 143 MEQ/L POTASSIUM (test code = 2228) 4.3 MEQ/L CHLORIDE (test code = 2215) 104 MEQ/L CARBON DIOXIDE (test code = 2206) 25 MEQ/L CALCIUM (test code = 2209) 9.7 MG/DL PROTEIN, TOTAL (test code = 2229) 7.6 G/DL ALBUMIN (test code = 2201) 4.4 G/DL CALC GLOBULIN (test code = 2240) 3.2 G/DL CALC A/G RATIO (test code = 2234) 1.4 RATIO BILIRUBIN, TOTAL (test code = 2207) 0.6 MG/DL ALKALINE PHOSPHATASE (test code = 2204) 101 U/L AST (test code = 2218) 26 U/L ALT (test code = 2219) 25 U/L COMPREHENSIVE METABOLIC [id number] 00:00:00* Test Item Value Reference Range Interpretation Comme nts GLUCOSE (test code = 2217) 136 MG/DL BUN (test code = 2208) 16 MG/DL CREATININE (test code = 2214) 0.55 MG/DL eGFR AMER. (test cod e = 45022) 111 ML/MIN/1.73 eGFR NON- AMER. (test code = 45728) 96 ML/MIN/1.73 CALC BUN/CREAT (test code = 2235) 29 RATIO SODIUM (test code = 2231) 143 MEQ/L POTASSIUM (test code = 2228) 4.3 MEQ/L CHLORIDE (test code = 2215) 104 MEQ/L CARBON DIOXIDE (test code = 2206) 25 MEQ/L CALCIUM (test code = 2209) 9.7 MG/DL PROTEIN, TOTAL (test code = 2229) 7.6 G/DL ALBUMIN (test code = 2201) 4.4 G/DL CALC GLOBULIN (test code = 2240) 3.2 G/DL CALC A/G RATIO (test code = 2234) 1.4 RATIO BILIRUBIN, TOTAL (test code = 2207) 0.6 MG/DL ALKALINE PHOSPHATASE (test code = 2204) 101 U/L AST (test code = 2218) 26 U/L ALT (test code = 2219) 25 U/L LIPID [id number] 00:00:00* Test Item Value Reference Range Interpretation Comme nts CHOLESTEROL (test code = 2210) 146 MG/DL TRIGLYCERIDES (test code = 2232) 60 MG/DL HDL CHOLESTEROL (test code = 2220) 47 MG/DL CALC LDL CHOL (test code = 2237) 85 MG/DL RISK RATIO LDL/HDL (test cod e = 2238) 1.81 RATIO LIPID [id number] 00:00:00* Test Item Value Reference Range Interpretation Comme nts CHOLESTEROL (test code = 2210) 146 MG/DL TRIGLYCERIDES (test code = 2232) 60 MG/DL HDL CHOLESTEROL (test code = 2220) 47 MG/DL CALC LDL CHOL (test code = 2237) 85 MG/DL RISK RATIO LDL/HDL (test cod e = 2238) 1.81 RATIO HEMOGLOBIN [id number] 00:00:00* Test Item Value Reference Range Interpretation Comme nts HEMOGLOBIN A1c (test code = 67793) 7.9 % HEMOGLOBIN [id number] 00:00:00* Test Item Value Reference Range Interpretation Comme nts HEMOGLOBIN A1c (test code = 35891) 7.9 % HEMOGLOBIN [id number] 00:00:00* Test Item Value Reference Range Interpretation Comme nts HEMOGLOBIN A1c (test code = 42515) 7.9 % COMPREHENSIVE METABOLIC [id number] 00:00:00* Test Item Value Reference Range Interpretation Comme nts GLUCOSE (test code = 2217) 136 MG/DL BUN (test code = 2208) 16 MG/DL CREATININE (test code = 2214) 0.55 MG/DL eGFR AMER. (test cod e = 00365) 111 ML/MIN/1.73 eGFR NON- AMER. (test code = 69738) 96 ML/MIN/1.73 CALC BUN/CREAT (test code = 2235) 29 RATIO SODIUM (test code = 2231) 143 MEQ/L POTASSIUM (test code = 2228) 4.3 MEQ/L CHLORIDE (test code = 2215) 104 MEQ/L CARBON DIOXIDE (test code = 2206) 25 MEQ/L CALCIUM (test code = 2209) 9.7 MG/DL PROTEIN, TOTAL (test code = 2229) 7.6 G/DL ALBUMIN (test code = 2201) 4.4 G/DL CALC GLOBULIN (test code = 2240) 3.2 G/DL CALC A/G RATIO (test code = 2234) 1.4 RATIO BILIRUBIN, TOTAL (test code = 2207) 0.6 MG/DL ALKALINE PHOSPHATASE (test code = 2204) 101 U/L AST (test code = 2218) 26 U/L ALT (test code = 2219) 25 U/L COMPREHENSIVE METABOLIC [id number] 00:00:00* Test Item Value Reference Range Interpretation Comme nts GLUCOSE (test code = 2217) 136 MG/DL BUN (test code = 2208) 16 MG/DL CREATININE (test code = 2214) 0.55 MG/DL eGFR AMER. (test cod e = 51529) 111 ML/MIN/1.73 eGFR NON- AMER. (test code = 98730) 96 ML/MIN/1.73 CALC BUN/CREAT (test code = 2235) 29 RATIO SODIUM (test code = 2231) 143 MEQ/L POTASSIUM (test code = 2228) 4.3 MEQ/L CHLORIDE (test code = 2215) 104 MEQ/L CARBON DIOXIDE (test code = 2206) 25 MEQ/L CALCIUM (test code = 2209) 9.7 MG/DL PROTEIN, TOTAL (test code = 2229) 7.6 G/DL ALBUMIN (test code = 2201) 4.4 G/DL CALC GLOBULIN (test code = 2240) 3.2 G/DL CALC A/G RATIO (test code = 2234) 1.4 RATIO BILIRUBIN, TOTAL (test code = 2207) 0.6 MG/DL ALKALINE PHOSPHATASE (test code = 2204) 101 U/L AST (test code = 2218) 26 U/L ALT (test code = 2219) 25 U/L COMPREHENSIVE METABOLIC [id number] 00:00:00* Test Item Value Reference Range Interpretation Comme nts GLUCOSE (test code = 2217) 136 MG/DL BUN (test code = 2208) 16 MG/DL CREATININE (test code = 2214) 0.55 MG/DL eGFR AMER. (test cod e = 64462) 111 ML/MIN/1.73 eGFR NON- AMER. (test code = 45749) 96 ML/MIN/1.73 CALC BUN/CREAT (test code = 2235) 29 RATIO SODIUM (test code = 2231) 143 MEQ/L POTASSIUM (test code = 2228) 4.3 MEQ/L CHLORIDE (test code = 2215) 104 MEQ/L CARBON DIOXIDE (test code = 2206) 25 MEQ/L CALCIUM (test code = 2209) 9.7 MG/DL PROTEIN, TOTAL (test code = 2229) 7.6 G/DL ALBUMIN (test code = 2201) 4.4 G/DL CALC GLOBULIN (test code = 2240) 3.2 G/DL CALC A/G RATIO (test code = 2234) 1.4 RATIO BILIRUBIN, TOTAL (test code = 2207) 0.6 MG/DL ALKALINE PHOSPHATASE (test code = 2204) 101 U/L AST (test code = 2218) 26 U/L ALT (test code = 2219) 25 U/L LIPID [id number] 00:00:00* Test Item Value Reference Range Interpretation Comme nts CHOLESTEROL (test code = 2210) 146 MG/DL TRIGLYCERIDES (test code = 2232) 60 MG/DL HDL CHOLESTEROL (test code = 2220) 47 MG/DL CALC LDL CHOL (test code = 2237) 85 MG/DL RISK RATIO LDL/HDL (test cod e = 2238) 1.81 RATIO LIPID [id number] 00:00:00* Test Item Value Reference Range Interpretation Comme nts CHOLESTEROL (test code = 2210) 146 MG/DL TRIGLYCERIDES (test code = 2232) 60 MG/DL HDL CHOLESTEROL (test code = 2220) 47 MG/DL CALC LDL CHOL (test code = 2237) 85 MG/DL RISK RATIO LDL/HDL (test cod e = 2238) 1.81 RATIO HEMOGLOBIN [id number] 00:00:00* Test Item Value Reference Range Interpretation Comme nts HEMOGLOBIN A1c (test code = 85208) 7.9 % HEMOGLOBIN [id number] 00:00:00* Test Item Value Reference Range Interpretation Comme nts HEMOGLOBIN A1c (test code = 95459) 7.9 % HEMOGLOBIN [id number] 00:00:00* Test Item Value Reference Range Interpretation Comme nts HEMOGLOBIN A1c (test code = 02593) 7.9 % LIPID [id number] 00:00:00* Test Item Value Reference Range Interpretation Comme nts CHOLESTEROL (test code = 2210) 146 MG/DL TRIGLYCERIDES (test code = 2232) 60 MG/DL HDL CHOLESTEROL (test code = 2220) 47 MG/DL CALC LDL CHOL (test code = 2237) 85 MG/DL RISK RATIO LDL/HDL (test cod e = 2238) 1.81 RATIO HEMOGLOBIN [id number] 00:00:00* Test Item Value Reference Range Interpretation Comme nts HEMOGLOBIN A1c (test code = 30201) 7.9 % HEMOGLOBIN [id number] 00:00:00* Test Item Value Reference Range Interpretation Comme nts HEMOGLOBIN A1c (test code = 39286) 7.9 % COMPREHENSIVE METABOLIC [id number] 00:00:00* Test Item Value Reference Range Interpretation Comme nts GLUCOSE (test code = 2217) 136 MG/DL BUN (test code = 2208) 16 MG/DL CREATININE (test code = 2214) 0.55 MG/DL eGFR AMER. (test cod e = 27570) 111 ML/MIN/1.73 eGFR NON- AMER. (test code = 99558) 96 ML/MIN/1.73 CALC BUN/CREAT (test code = 2235) 29 RATIO SODIUM (test code = 2231) 143 MEQ/L POTASSIUM (test code = 2228) 4.3 MEQ/L CHLORIDE (test code = 2215) 104 MEQ/L CARBON DIOXIDE (test code = 2206) 25 MEQ/L CALCIUM (test code = 2209) 9.7 MG/DL PROTEIN, TOTAL (test code = 2229) 7.6 G/DL ALBUMIN (test code = 2201) 4.4 G/DL CALC GLOBULIN (test code = 2240) 3.2 G/DL CALC A/G RATIO (test code = 2234) 1.4 RATIO BILIRUBIN, TOTAL (test code = 2207) 0.6 MG/DL ALKALINE PHOSPHATASE (test code = 2204) 101 U/L AST (test code = 2218) 26 U/L ALT (test code = 2219) 25 U/L COMPREHENSIVE METABOLIC [id number] 00:00:00* Test Item Value Reference Range Interpretation Comme nts GLUCOSE (test code = 2217) 136 MG/DL BUN (test code = 2208) 16 MG/DL CREATININE (test code = 2214) 0.55 MG/DL eGFR AMER. (test cod e = 11599) 111 ML/MIN/1.73 eGFR NON- AMER. (test code = 06078) 96 ML/MIN/1.73 CALC BUN/CREAT (test code = 2235) 29 RATIO SODIUM (test code = 2231) 143 MEQ/L POTASSIUM (test code = 2228) 4.3 MEQ/L CHLORIDE (test code = 2215) 104 MEQ/L CARBON DIOXIDE (test code = 2206) 25 MEQ/L CALCIUM (test code = 2209) 9.7 MG/DL PROTEIN, TOTAL (test code = 2229) 7.6 G/DL ALBUMIN (test code = 2201) 4.4 G/DL CALC GLOBULIN (test code = 2240) 3.2 G/DL CALC A/G RATIO (test code = 2234) 1.4 RATIO BILIRUBIN, TOTAL (test code = 2207) 0.6 MG/DL ALKALINE PHOSPHATASE (test code = 2204) 101 U/L AST (test code = 2218) 26 U/L ALT (test code = 2219) 25 U/L LIPID [id number] 00:00:00* Test Item Value Reference Range Interpretation Comme nts CHOLESTEROL (test code = 2210) 146 MG/DL TRIGLYCERIDES (test code = 2232) 60 MG/DL HDL CHOLESTEROL (test code = 2220) 47 MG/DL CALC LDL CHOL (test code = 2237) 85 MG/DL RISK RATIO LDL/HDL (test cod e = 2238) 1.81 RATIO LIPID [id number] 00:00:00* Test Item Value Reference Range Interpretation Comme nts CHOLESTEROL (test code = 2210) 146 MG/DL TRIGLYCERIDES (test code = 2232) 60 MG/DL HDL CHOLESTEROL (test code = 2220) 47 MG/DL CALC LDL CHOL (test code = 2237) 85 MG/DL RISK RATIO LDL/HDL (test cod e = 2238) 1.81 RATIO HEMOGLOBIN [id number] 00:00:00* Test Item Value Reference Range Interpretation Comme nts HEMOGLOBIN A1c (test code = 49405) 7.9 % HEMOGLOBIN [id number] 00:00:00* Test Item Value Reference Range Interpretation Comme nts HEMOGLOBIN A1c (test code = 25778) 7.9 % HEMOGLOBIN [id number] 00:00:00* Test Item Value Reference Range Interpretation Comme nts HEMOGLOBIN A1c (test code = 58234) 7.9 % COMPREHENSIVE METABOLIC [id number] 00:00:00* Test Item Value Reference Range Interpretation Comme nts GLUCOSE (test code = 7) 136 MG/DL BUN (test code = 8) 16 MG/DL CREATININE (test code = 2214) 0.55 MG/DL eGFR AMER. (test cod e = 83397) 111 ML/MIN/1.73 eGFR NON- AMER. (test code = 76725) 96 ML/MIN/1.73 CALC BUN/CREAT (test code = 2235) 29 RATIO SODIUM (test code = 2231) 143 MEQ/L POTASSIUM (test code = 2228) 4.3 MEQ/L CHLORIDE (test code = 2215) 104 MEQ/L CARBON DIOXIDE (test code = 2206) 25 MEQ/L CALCIUM (test code = 2209) 9.7 MG/DL PROTEIN, TOTAL (test code = 2229) 7.6 G/DL ALBUMIN (test code = 2201) 4.4 G/DL CALC GLOBULIN (test code = 2240) 3.2 G/DL CALC A/G RATIO (test code = 2234) 1.4 RATIO BILIRUBIN, TOTAL (test code = 2207) 0.6 MG/DL ALKALINE PHOSPHATASE (test code = 2204) 101 U/L AST (test code = 2218) 26 U/L ALT (test code = 2219) 25 U/L COMPREHENSIVE METABOLIC [id number] 00:00:00* Test Item Value Reference Range Interpretation Comme nts GLUCOSE (test code = 2217) 136 MG/DL BUN (test code = 2208) 16 MG/DL CREATININE (test code = 2214) 0.55 MG/DL eGFR AMER. (test cod e = 39442) 111 ML/MIN/1.73 eGFR NON- AMER. (test code = 63702) 96 ML/MIN/1.73 CALC BUN/CREAT (test code = 2235) 29 RATIO SODIUM (test code = 2231) 143 MEQ/L POTASSIUM (test code = 2228) 4.3 MEQ/L CHLORIDE (test code = 2215) 104 MEQ/L CARBON DIOXIDE (test code = 2206) 25 MEQ/L CALCIUM (test code = 2209) 9.7 MG/DL PROTEIN, TOTAL (test code = 2229) 7.6 G/DL ALBUMIN (test code = 2201) 4.4 G/DL CALC GLOBULIN (test code = 2240) 3.2 G/DL CALC A/G RATIO (test code = 2234) 1.4 RATIO BILIRUBIN, TOTAL (test code = 2207) 0.6 MG/DL ALKALINE PHOSPHATASE (test code = 2204) 101 U/L AST (test code = 2218) 26 U/L ALT (test code = 2219) 25 U/L LIPID [id number] 00:00:00* Test Item Value Reference Range Interpretation Comme nts CHOLESTEROL (test code = 2210) 146 MG/DL TRIGLYCERIDES (test code = 2232) 60 MG/DL HDL CHOLESTEROL (test code = 2220) 47 MG/DL CALC LDL CHOL (test code = 2237) 85 MG/DL RISK RATIO LDL/HDL (test cod e = 2238) 1.81 RATIO LIPID [id number] 00:00:00* Test Item Value Reference Range Interpretation Comme nts CHOLESTEROL (test code = 2210) 146 MG/DL TRIGLYCERIDES (test code = 2232) 60 MG/DL HDL CHOLESTEROL (test code = 2220) 47 MG/DL CALC LDL CHOL (test code = 2237) 85 MG/DL RISK RATIO LDL/HDL (test cod e = 2238) 1.81 RATIO HEMOGLOBIN [id number] 00:00:00* Test Item Value Reference Range Interpretation Comme nts HEMOGLOBIN A1c (test code = 59890) 7.9 % HEMOGLOBIN [id number] 00:00:00* Test Item Value Reference Range Interpretation Comme nts HEMOGLOBIN A1c (test code = 86614) 7.9 % HEMOGLOBIN [id number] 00:00:00* Test Item Value Reference Range Interpretation Comme nts HEMOGLOBIN A1c (test code = 86950) 7.9 % COMPREHENSIVE METABOLIC [id number] 00:00:00* Test Item Value Reference Range Interpretation Comme nts GLUCOSE (test code = 2217) 136 MG/DL BUN (test code = 2208) 16 MG/DL CREATININE (test code = 2214) 0.55 MG/DL eGFR AMER. (test cod e = 86886) 111 ML/MIN/1.73 eGFR NON- AMER. (test code = 57946) 96 ML/MIN/1.73 CALC BUN/CREAT (test code = 2235) 29 RATIO SODIUM (test code = 2231) 143 MEQ/L POTASSIUM (test code = 2228) 4.3 MEQ/L CHLORIDE (test code = 2215) 104 MEQ/L CARBON DIOXIDE (test code = 2206) 25 MEQ/L CALCIUM (test code = 2209) 9.7 MG/DL PROTEIN, TOTAL (test code = 2229) 7.6 G/DL ALBUMIN (test code = 2201) 4.4 G/DL CALC GLOBULIN (test code = 2240) 3.2 G/DL CALC A/G RATIO (test code = 2234) 1.4 RATIO BILIRUBIN, TOTAL (test code = 2207) 0.6 MG/DL ALKALINE PHOSPHATASE (test code = 2204) 101 U/L AST (test code = 2218) 26 U/L ALT (test code = 2219) 25 U/L COMPREHENSIVE METABOLIC [id number] 00:00:00* Test Item Value Reference Range Interpretation Comme nts GLUCOSE (test code = 2217) 136 MG/DL BUN (test code = 2208) 16 MG/DL CREATININE (test code = 2214) 0.55 MG/DL eGFR AMER. (test cod e = 99491) 111 ML/MIN/1.73 eGFR NON- AMER. (test code = 09286) 96 ML/MIN/1.73 CALC BUN/CREAT (test code = 2235) 29 RATIO SODIUM (test code = 2231) 143 MEQ/L POTASSIUM (test code = 2228) 4.3 MEQ/L CHLORIDE (test code = 2215) 104 MEQ/L CARBON DIOXIDE (test code = 2206) 25 MEQ/L CALCIUM (test code = 2209) 9.7 MG/DL PROTEIN, TOTAL (test code = 2229) 7.6 G/DL ALBUMIN (test code = 2201) 4.4 G/DL CALC GLOBULIN (test code = 2240) 3.2 G/DL CALC A/G RATIO (test code = 2234) 1.4 RATIO BILIRUBIN, TOTAL (test code = 2207) 0.6 MG/DL ALKALINE PHOSPHATASE (test code = 2204) 101 U/L AST (test code = 2218) 26 U/L ALT (test code = 2219) 25 U/L LIPID [id number] 00:00:00* Test Item Value Reference Range Interpretation Comme nts CHOLESTEROL (test code = 2210) 146 MG/DL TRIGLYCERIDES (test code = 2232) 60 MG/DL HDL CHOLESTEROL (test code = 2220) 47 MG/DL CALC LDL CHOL (test code = 2237) 85 MG/DL RISK RATIO LDL/HDL (test cod e = 2238) 1.81 RATIO LIPID [id number] 00:00:00* Test Item Value Reference Range Interpretation Comme nts CHOLESTEROL (test code = 2210) 146 MG/DL TRIGLYCERIDES (test code = 2232) 60 MG/DL HDL CHOLESTEROL (test code = 2220) 47 MG/DL CALC LDL CHOL (test code = 2237) 85 MG/DL RISK RATIO LDL/HDL (test cod e = 2238) 1.81 RATIO HEMOGLOBIN [id number] 00:00:00* Test Item Value Reference Range Interpretation Comme nts HEMOGLOBIN A1c (test code = 57230) 7.9 % HEMOGLOBIN [id number] 00:00:00* Test Item Value Reference Range Interpretation Comme nts HEMOGLOBIN A1c (test code = 50528) 7.9 % HEMOGLOBIN [id number] 00:00:00* Test Item Value Reference Range Interpretation Comme nts HEMOGLOBIN A1c (test code = 83898) 7.9 % COMPREHENSIVE METABOLIC [id number] 00:00:00* Test Item Value Reference Range Interpretation Comme nts GLUCOSE (test code = 2217) 136 MG/DL BUN (test code = 2208) 16 MG/DL CREATININE (test code = 2214) 0.55 MG/DL eGFR AMER. (test cod e = 94088) 111 ML/MIN/1.73 eGFR NON- AMER. (test code = 46678) 96 ML/MIN/1.73 CALC BUN/CREAT (test code = 2235) 29 RATIO SODIUM (test code = 2231) 143 MEQ/L POTASSIUM (test code = 2228) 4.3 MEQ/L CHLORIDE (test code = 2215) 104 MEQ/L CARBON DIOXIDE (test code = 2206) 25 MEQ/L CALCIUM (test code = 2209) 9.7 MG/DL PROTEIN, TOTAL (test code = 2229) 7.6 G/DL ALBUMIN (test code = 2201) 4.4 G/DL CALC GLOBULIN (test code = 2240) 3.2 G/DL CALC A/G RATIO (test code = 2234) 1.4 RATIO BILIRUBIN, TOTAL (test code = 2207) 0.6 MG/DL ALKALINE PHOSPHATASE (test code = 2204) 101 U/L AST (test code = 2218) 26 U/L ALT (test code = 2219) 25 U/L LIPID [id number] 00:00:00* Test Item Value Reference Range Interpretation Comme nts CHOLESTEROL (test code = 2210) 146 MG/DL TRIGLYCERIDES (test code = 2232) 60 MG/DL HDL CHOLESTEROL (test code = 2220) 47 MG/DL CALC LDL CHOL (test code = 2237) 85 MG/DL RISK RATIO LDL/HDL (test cod e = 2238) 1.81 RATIO HEMOGLOBIN [id number] 00:00:00* Test Item Value Reference Range Interpretation Comme nts HEMOGLOBIN A1c (test code = 57069) 7.9 % HEMOGLOBIN [id number] 00:00:00* Test Item Value Reference Range Interpretation Comme nts HEMOGLOBIN A1c (test code = 13757) 7.9 % COMPREHENSIVE METABOLIC [id number] 00:00:00* Test Item Value Reference Range Interpretation Comme nts GLUCOSE (test code = 2217) 136 MG/DL BUN (test code = 2208) 16 MG/DL CREATININE (test code = 2214) 0.55 MG/DL eGFR AMER. (test cod e = 19371) 111 ML/MIN/1.73 eGFR NON- AMER. (test code = 56077) 96 ML/MIN/1.73 CALC BUN/CREAT (test code = 2235) 29 RATIO SODIUM (test code = 2231) 143 MEQ/L POTASSIUM (test code = 2228) 4.3 MEQ/L CHLORIDE (test code = 2215) 104 MEQ/L CARBON DIOXIDE (test code = 2206) 25 MEQ/L CALCIUM (test code = 2209) 9.7 MG/DL PROTEIN, TOTAL (test code = 2229) 7.6 G/DL ALBUMIN (test code = 2201) 4.4 G/DL CALC GLOBULIN (test code = 2240) 3.2 G/DL CALC A/G RATIO (test code = 2234) 1.4 RATIO BILIRUBIN, TOTAL (test code = 2207) 0.6 MG/DL ALKALINE PHOSPHATASE (test code = 2204) 101 U/L AST (test code = 2218) 26 U/L ALT (test code = 2219) 25 U/L Toney F AustinLIPID [id number] 00:00:00* Test Item Value Reference Range Interpretation Comme nts CHOLESTEROL (test code = 2210) 146 MG/DL TRIGLYCERIDES (test code = 2232) 60 MG/DL HDL CHOLESTEROL (test code = 2220) 47 MG/DL CALC LDL CHOL (test code = 2237) 85 MG/DL RISK RATIO LDL/HDL (test cod e = 2238) 1.81 RATIO Toney Cowan AustinLIPID [id number] 00:00:00* Test Item Value Reference Range Interpretation Comme nts CHOLESTEROL (test code = 2210) 236 MG/DL TRIGLYCERIDES (test code = 2232) 219 MG/DL HDL CHOLESTEROL (test code = 2220) 52 MG/DL CALC LDL CHOL (test code = 2237) 148 MG/DL RISK RATIO LDL/HDL (test cod e = 2238) 2.85 RATIO Toney RennerHEMOGLOBIN [id number] 00:00:00* Test Item Value Reference Range Interpretation Comme nts HEMOGLOBIN A1c (test code = 35365) 7.8 % Toney Cowan AustinHEMOGLOBIN [id number] 00:00:00* Test Item Value Reference Range Interpretation Comme nts HEMOGLOBIN A1c (test code = 09119) 7.8 % HEMOGLOBIN [id number] 00:00:00* Test Item Value Reference Range Interpretation Comme nts HEMOGLOBIN A1c (test code = 20366) 7.8 % COMPREHENSIVE METABOLIC [id number] 00:00:00* Test Item Value Reference Range Interpretation Comme nts GLUCOSE (test code = 2217) 123 MG/DL BUN (test code = 2208) 17 MG/DL CREATININE (test code = 2214) 0.59 MG/DL eGFR AMER. (test cod e = 77887) 108 ML/MIN/1.73 eGFR NON- AMER. (test code = 28859) 94 ML/MIN/1.73 CALC BUN/CREAT (test code = 2235) 29 RATIO SODIUM (test code = 2231) 144 MEQ/L POTASSIUM (test code = 2228) 4.3 MEQ/L CHLORIDE (test code = 2215) 106 MEQ/L CARBON DIOXIDE (test code = 2206) 28 MEQ/L CALCIUM (test code = 2209) 10.1 MG/DL PROTEIN, TOTAL (test code = 2229) 7.3 G/DL ALBUMIN (test code = 2201) 4.3 G/DL CALC GLOBULIN (test code = 2240) 3.0 G/DL CALC A/G RATIO (test code = 2234) 1.4 RATIO BILIRUBIN, TOTAL (test code = 2207) 0.3 MG/DL ALKALINE PHOSPHATASE (test code = 2204) 92 U/L AST (test code = 2218) 21 U/L ALT (test code = 2219) 17 U/L LIPID [id number] 00:00:00* Test Item Value Reference Range Interpretation Comme nts CHOLESTEROL (test code = 2210) 236 MG/DL TRIGLYCERIDES (test code = 2232) 219 MG/DL HDL CHOLESTEROL (test code = 2220) 52 MG/DL CALC LDL CHOL (test code = 2237) 148 MG/DL RISK RATIO LDL/HDL (test cod e = 2238) 2.85 RATIO HEMOGLOBIN [id number] 00:00:00* Test Item Value Reference Range Interpretation Comme nts HEMOGLOBIN A1c (test code = 57124) 7.8 % HEMOGLOBIN [id number] 00:00:00* Test Item Value Reference Range Interpretation Comme nts HEMOGLOBIN A1c (test code = 00382) 7.8 % HEMOGLOBIN [id number] 00:00:00* Test Item Value Reference Range Interpretation Comme nts HEMOGLOBIN A1c (test code = 80989) 7.8 % COMPREHENSIVE METABOLIC [id number] 00:00:00* Test Item Value Reference Range Interpretation Comme nts GLUCOSE (test code = 2217) 123 MG/DL BUN (test code = 8) 17 MG/DL CREATININE (test code = 2214) 0.59 MG/DL eGFR AMER. (test cod e = 79934) 108 ML/MIN/1.73 eGFR NON- AMER. (test code = 39661) 94 ML/MIN/1.73 CALC BUN/CREAT (test code = 2235) 29 RATIO SODIUM (test code = 2231) 144 MEQ/L POTASSIUM (test code = 2228) 4.3 MEQ/L CHLORIDE (test code = 2215) 106 MEQ/L CARBON DIOXIDE (test code = 2206) 28 MEQ/L CALCIUM (test code = 2209) 10.1 MG/DL PROTEIN, TOTAL (test code = 2229) 7.3 G/DL ALBUMIN (test code = 2201) 4.3 G/DL CALC GLOBULIN (test code = 2240) 3.0 G/DL CALC A/G RATIO (test code = 2234) 1.4 RATIO BILIRUBIN, TOTAL (test code = 2207) 0.3 MG/DL ALKALINE PHOSPHATASE (test code = 2204) 92 U/L AST (test code = 2218) 21 U/L ALT (test code = 2219) 17 U/L COMPREHENSIVE METABOLIC [id number] 00:00:00* Test Item Value Reference Range Interpretation Comme nts GLUCOSE (test code = 2217) 123 MG/DL BUN (test code = 2208) 17 MG/DL CREATININE (test code = 2214) 0.59 MG/DL eGFR AMER. (test cod e = 40944) 108 ML/MIN/1.73 eGFR NON- AMER. (test code = 13415) 94 ML/MIN/1.73 CALC BUN/CREAT (test code = 2235) 29 RATIO SODIUM (test code = 2231) 144 MEQ/L POTASSIUM (test code = 2228) 4.3 MEQ/L CHLORIDE (test code = 2215) 106 MEQ/L CARBON DIOXIDE (test code = 2206) 28 MEQ/L CALCIUM (test code = 2209) 10.1 MG/DL PROTEIN, TOTAL (test code = 2229) 7.3 G/DL ALBUMIN (test code = 2201) 4.3 G/DL CALC GLOBULIN (test code = 2240) 3.0 G/DL CALC A/G RATIO (test code = 2234) 1.4 RATIO BILIRUBIN, TOTAL (test code = 2207) 0.3 MG/DL ALKALINE PHOSPHATASE (test code = 2204) 92 U/L AST (test code = 2218) 21 U/L ALT (test code = 2219) 17 U/L LIPID [id number] 00:00:00* Test Item Value Reference Range Interpretation Comme nts CHOLESTEROL (test code = 2210) 236 MG/DL TRIGLYCERIDES (test code = 2232) 219 MG/DL HDL CHOLESTEROL (test code = 2220) 52 MG/DL CALC LDL CHOL (test code = 2237) 148 MG/DL RISK RATIO LDL/HDL (test cod e = 2238) 2.85 RATIO LIPID [id number] 00:00:00* Test Item Value Reference Range Interpretation Comme nts CHOLESTEROL (test code = 2210) 236 MG/DL TRIGLYCERIDES (test code = 2232) 219 MG/DL HDL CHOLESTEROL (test code = 2220) 52 MG/DL CALC LDL CHOL (test code = 2237) 148 MG/DL RISK RATIO LDL/HDL (test cod e = 2238) 2.85 RATIO HEMOGLOBIN [id number] 00:00:00* Test Item Value Reference Range Interpretation Comme nts HEMOGLOBIN A1c (test code = 30003) 7.8 % HEMOGLOBIN [id number] 00:00:00* Test Item Value Reference Range Interpretation Comme nts HEMOGLOBIN A1c (test code = 14231) 7.8 % HEMOGLOBIN [id number] 00:00:00* Test Item Value Reference Range Interpretation Comme nts HEMOGLOBIN A1c (test code = 57327) 7.8 % COMPREHENSIVE METABOLIC [id number] 00:00:00* Test Item Value Reference Range Interpretation Comme nts GLUCOSE (test code = 2216) 123 MG/DL BUN (test code = 2208) 17 MG/DL CREATININE (test code = 2214) 0.59 MG/DL eGFR AMER. (test cod e = 70554) 108 ML/MIN/1.73 eGFR NON- AMER. (test code = 55504) 94 ML/MIN/1.73 CALC BUN/CREAT (test code = 2235) 29 RATIO SODIUM (test code = 2231) 144 MEQ/L POTASSIUM (test code = 2228) 4.3 MEQ/L CHLORIDE (test code = 2215) 106 MEQ/L CARBON DIOXIDE (test code = 2206) 28 MEQ/L CALCIUM (test code = 2209) 10.1 MG/DL PROTEIN, TOTAL (test code = 2229) 7.3 G/DL ALBUMIN (test code = 2201) 4.3 G/DL CALC GLOBULIN (test code = 2240) 3.0 G/DL CALC A/G RATIO (test code = 2234) 1.4 RATIO BILIRUBIN, TOTAL (test code = 2207) 0.3 MG/DL ALKALINE PHOSPHATASE (test code = 2204) 92 U/L AST (test code = 2218) 21 U/L ALT (test code = 2219) 17 U/L COMPREHENSIVE METABOLIC [id number] 00:00:00* Test Item Value Reference Range Interpretation Comme nts GLUCOSE (test code = 2217) 123 MG/DL BUN (test code = 2208) 17 MG/DL CREATININE (test code = 2214) 0.59 MG/DL eGFR AMER. (test cod e = 51731) 108 ML/MIN/1.73 eGFR NON- AMER. (test code = 12099) 94 ML/MIN/1.73 CALC BUN/CREAT (test code = 2235) 29 RATIO SODIUM (test code = 2231) 144 MEQ/L POTASSIUM (test code = 2228) 4.3 MEQ/L CHLORIDE (test code = 2215) 106 MEQ/L CARBON DIOXIDE (test code = 2206) 28 MEQ/L CALCIUM (test code = 2209) 10.1 MG/DL PROTEIN, TOTAL (test code = 2229) 7.3 G/DL ALBUMIN (test code = 2201) 4.3 G/DL CALC GLOBULIN (test code = 2240) 3.0 G/DL CALC A/G RATIO (test code = 2234) 1.4 RATIO BILIRUBIN, TOTAL (test code = 2207) 0.3 MG/DL ALKALINE PHOSPHATASE (test code = 2204) 92 U/L AST (test code = 2218) 21 U/L ALT (test code = 2219) 17 U/L LIPID [id number] 00:00:00* Test Item Value Reference Range Interpretation Comme nts CHOLESTEROL (test code = 2210) 236 MG/DL TRIGLYCERIDES (test code = 2232) 219 MG/DL HDL CHOLESTEROL (test code = 2220) 52 MG/DL CALC LDL CHOL (test code = 2237) 148 MG/DL RISK RATIO LDL/HDL (test cod e = 2238) 2.85 RATIO LIPID [id number] 00:00:00* Test Item Value Reference Range Interpretation Comme nts CHOLESTEROL (test code = 2210) 236 MG/DL TRIGLYCERIDES (test code = 2232) 219 MG/DL HDL CHOLESTEROL (test code = 2220) 52 MG/DL CALC LDL CHOL (test code = 2237) 148 MG/DL RISK RATIO LDL/HDL (test cod e = 2238) 2.85 RATIO HEMOGLOBIN [id number] 00:00:00* Test Item Value Reference Range Interpretation Comme nts HEMOGLOBIN A1c (test code = 09565) 7.8 % HEMOGLOBIN [id number] 00:00:00* Test Item Value Reference Range Interpretation Comme nts HEMOGLOBIN A1c (test code = 56654) 7.8 % HEMOGLOBIN [id number] 00:00:00* Test Item Value Reference Range Interpretation Comme nts HEMOGLOBIN A1c (test code = 16598) 7.8 % HEMOGLOBIN [id number] 00:00:00* Test Item Value Reference Range Interpretation Comme nts HEMOGLOBIN A1c (test code = 32067) 7.8 % COMPREHENSIVE METABOLIC [id number] 00:00:00* Test Item Value Reference Range Interpretation Comme nts GLUCOSE (test code = 2217) 123 MG/DL BUN (test code = 2208) 17 MG/DL CREATININE (test code = 2214) 0.59 MG/DL eGFR AMER. (test cod e = 90460) 108 ML/MIN/1.73 eGFR NON- AMER. (test code = 15810) 94 ML/MIN/1.73 CALC BUN/CREAT (test code = 2235) 29 RATIO SODIUM (test code = 2231) 144 MEQ/L POTASSIUM (test code = 2228) 4.3 MEQ/L CHLORIDE (test code = 2215) 106 MEQ/L CARBON DIOXIDE (test code = 2206) 28 MEQ/L CALCIUM (test code = 2209) 10.1 MG/DL PROTEIN, TOTAL (test code = 2229) 7.3 G/DL ALBUMIN (test code = 2201) 4.3 G/DL CALC GLOBULIN (test code = 2240) 3.0 G/DL CALC A/G RATIO (test code = 2234) 1.4 RATIO BILIRUBIN, TOTAL (test code = 2207) 0.3 MG/DL ALKALINE PHOSPHATASE (test code = 2204) 92 U/L AST (test code = 2218) 21 U/L ALT (test code = 2219) 17 U/L COMPREHENSIVE METABOLIC [id number] 00:00:00* Test Item Value Reference Range Interpretation Comme nts GLUCOSE (test code = 2217) 123 MG/DL BUN (test code = 2208) 17 MG/DL CREATININE (test code = 2214) 0.59 MG/DL eGFR AMER. (test cod e = 29164) 108 ML/MIN/1.73 eGFR NON- AMER. (test code = 52048) 94 ML/MIN/1.73 CALC BUN/CREAT (test code = 2235) 29 RATIO SODIUM (test code = 2231) 144 MEQ/L POTASSIUM (test code = 2228) 4.3 MEQ/L CHLORIDE (test code = 2215) 106 MEQ/L CARBON DIOXIDE (test code = 2206) 28 MEQ/L CALCIUM (test code = 2209) 10.1 MG/DL PROTEIN, TOTAL (test code = 2229) 7.3 G/DL ALBUMIN (test code = 2201) 4.3 G/DL CALC GLOBULIN (test code = 2240) 3.0 G/DL CALC A/G RATIO (test code = 2234) 1.4 RATIO BILIRUBIN, TOTAL (test code = 2207) 0.3 MG/DL ALKALINE PHOSPHATASE (test code = 2204) 92 U/L AST (test code = 2218) 21 U/L ALT (test code = 2219) 17 U/L LIPID [id number] 00:00:00* Test Item Value Reference Range Interpretation Comme nts CHOLESTEROL (test code = 2210) 236 MG/DL TRIGLYCERIDES (test code = 2232) 219 MG/DL HDL CHOLESTEROL (test code = 2220) 52 MG/DL CALC LDL CHOL (test code = 2237) 148 MG/DL RISK RATIO LDL/HDL (test cod e = 2238) 2.85 RATIO LIPID [id number] 00:00:00* Test Item Value Reference Range Interpretation Comme nts CHOLESTEROL (test code = 2210) 236 MG/DL TRIGLYCERIDES (test code = 2232) 219 MG/DL HDL CHOLESTEROL (test code = 2220) 52 MG/DL CALC LDL CHOL (test code = 2237) 148 MG/DL RISK RATIO LDL/HDL (test cod e = 2238) 2.85 RATIO HEMOGLOBIN [id number] 00:00:00* Test Item Value Reference Range Interpretation Comme nts HEMOGLOBIN A1c (test code = 54296) 7.8 % COMPREHENSIVE METABOLIC [id number] 00:00:00* Test Item Value Reference Range Interpretation Comme nts GLUCOSE (test code = 2217) 123 MG/DL BUN (test code = 2208) 17 MG/DL CREATININE (test code = 2214) 0.59 MG/DL eGFR AMER. (test cod e = 47295) 108 ML/MIN/1.73 eGFR NON- AMER. (test code = 18444) 94 ML/MIN/1.73 CALC BUN/CREAT (test code = 2235) 29 RATIO SODIUM (test code = 2231) 144 MEQ/L POTASSIUM (test code = 2228) 4.3 MEQ/L CHLORIDE (test code = 2215) 106 MEQ/L CARBON DIOXIDE (test code = 2206) 28 MEQ/L CALCIUM (test code = 2209) 10.1 MG/DL PROTEIN, TOTAL (test code = 2229) 7.3 G/DL ALBUMIN (test code = 2201) 4.3 G/DL CALC GLOBULIN (test code = 2240) 3.0 G/DL CALC A/G RATIO (test code = 2234) 1.4 RATIO BILIRUBIN, TOTAL (test code = 2207) 0.3 MG/DL ALKALINE PHOSPHATASE (test code = 2204) 92 U/L AST (test code = 2218) 21 U/L ALT (test code = 2219) 17 U/L HEMOGLOBIN [id number] 00:00:00* Test Item Value Reference Range Interpretation Comme nts HEMOGLOBIN A1c (test code = 79233) 7.8 % LIPID [id number] 00:00:00* Test Item Value Reference Range Interpretation Comme nts CHOLESTEROL (test code = 2210) 236 MG/DL TRIGLYCERIDES (test code = 2232) 219 MG/DL HDL CHOLESTEROL (test code = 2220) 52 MG/DL CALC LDL CHOL (test code = 2237) 148 MG/DL RISK RATIO LDL/HDL (test cod e = 2238) 2.85 RATIO HEMOGLOBIN [id number] 00:00:00* Test Item Value Reference Range Interpretation Comme nts HEMOGLOBIN A1c (test code = 39217) 7.8 % HEMOGLOBIN [id number] 00:00:00* Test Item Value Reference Range Interpretation Comme nts HEMOGLOBIN A1c (test code = 37169) 7.8 % COMPREHENSIVE METABOLIC [id number] 00:00:00* Test Item Value Reference Range Interpretation Comme nts GLUCOSE (test code = 2217) 123 MG/DL BUN (test code = 2208) 17 MG/DL CREATININE (test code = 2214) 0.59 MG/DL eGFR AMER. (test cod e = 12425) 108 ML/MIN/1.73 eGFR NON- AMER. (test code = 85360) 94 ML/MIN/1.73 CALC BUN/CREAT (test code = 2235) 29 RATIO SODIUM (test code = 2231) 144 MEQ/L POTASSIUM (test code = 2228) 4.3 MEQ/L CHLORIDE (test code = 2215) 106 MEQ/L CARBON DIOXIDE (test code = 2206) 28 MEQ/L CALCIUM (test code = 2209) 10.1 MG/DL PROTEIN, TOTAL (test code = 2229) 7.3 G/DL ALBUMIN (test code = 2201) 4.3 G/DL CALC GLOBULIN (test code = 2240) 3.0 G/DL CALC A/G RATIO (test code = 2234) 1.4 RATIO BILIRUBIN, TOTAL (test code = 2207) 0.3 MG/DL ALKALINE PHOSPHATASE (test code = 2204) 92 U/L AST (test code = 2218) 21 U/L ALT (test code = 2219) 17 U/L COMPREHENSIVE METABOLIC [id number] 00:00:00* Test Item Value Reference Range Interpretation Comme nts GLUCOSE (test code = 2217) 123 MG/DL BUN (test code = 2208) 17 MG/DL CREATININE (test code = 2214) 0.59 MG/DL eGFR AMER. (test cod e = 45737) 108 ML/MIN/1.73 eGFR NON- AMER. (test code = 52448) 94 ML/MIN/1.73 CALC BUN/CREAT (test code = 2235) 29 RATIO SODIUM (test code = 2231) 144 MEQ/L POTASSIUM (test code = 2228) 4.3 MEQ/L CHLORIDE (test code = 2215) 106 MEQ/L CARBON DIOXIDE (test code = 2206) 28 MEQ/L CALCIUM (test code = 2209) 10.1 MG/DL PROTEIN, TOTAL (test code = 2229) 7.3 G/DL ALBUMIN (test code = 2201) 4.3 G/DL CALC GLOBULIN (test code = 2240) 3.0 G/DL CALC A/G RATIO (test code = 2234) 1.4 RATIO BILIRUBIN, TOTAL (test code = 2207) 0.3 MG/DL ALKALINE PHOSPHATASE (test code = 2204) 92 U/L AST (test code = 2218) 21 U/L ALT (test code = 2219) 17 U/L LIPID [id number] 00:00:00* Test Item Value Reference Range Interpretation Comme nts CHOLESTEROL (test code = 2210) 236 MG/DL TRIGLYCERIDES (test code = 2232) 219 MG/DL HDL CHOLESTEROL (test code = 2220) 52 MG/DL CALC LDL CHOL (test code = 2237) 148 MG/DL RISK RATIO LDL/HDL (test cod e = 2238) 2.85 RATIO LIPID [id number] 00:00:00* Test Item Value Reference Range Interpretation Comme nts CHOLESTEROL (test code = 2210) 236 MG/DL TRIGLYCERIDES (test code = 2232) 219 MG/DL HDL CHOLESTEROL (test code = 2220) 52 MG/DL CALC LDL CHOL (test code = 2237) 148 MG/DL RISK RATIO LDL/HDL (test cod e = 2238) 2.85 RATIO HEMOGLOBIN [id number] 00:00:00* Test Item Value Reference Range Interpretation Comme nts HEMOGLOBIN A1c (test code = 40382) 7.8 % HEMOGLOBIN [id number] 00:00:00* Test Item Value Reference Range Interpretation Comme nts HEMOGLOBIN A1c (test code = 62605) 7.8 % HEMOGLOBIN [id number] 00:00:00* Test Item Value Reference Range Interpretation Comme nts HEMOGLOBIN A1c (test code = 58615) 7.8 % COMPREHENSIVE METABOLIC [id number] 00:00:00* Test Item Value Reference Range Interpretation Comme nts GLUCOSE (test code = 2217) 123 MG/DL BUN (test code = 2208) 17 MG/DL CREATININE (test code = 2214) 0.59 MG/DL eGFR AMER. (test cod e = 28002) 108 ML/MIN/1.73 eGFR NON- AMER. (test code = 45618) 94 ML/MIN/1.73 CALC BUN/CREAT (test code = 2235) 29 RATIO SODIUM (test code = 2231) 144 MEQ/L POTASSIUM (test code = 2228) 4.3 MEQ/L CHLORIDE (test code = 2215) 106 MEQ/L CARBON DIOXIDE (test code = 2206) 28 MEQ/L CALCIUM (test code = 2209) 10.1 MG/DL PROTEIN, TOTAL (test code = 2229) 7.3 G/DL ALBUMIN (test code = 2201) 4.3 G/DL CALC GLOBULIN (test code = 2240) 3.0 G/DL CALC A/G RATIO (test code = 2234) 1.4 RATIO BILIRUBIN, TOTAL (test code = 2207) 0.3 MG/DL ALKALINE PHOSPHATASE (test code = 2204) 92 U/L AST (test code = 2218) 21 U/L ALT (test code = 2219) 17 U/L COMPREHENSIVE METABOLIC [id number] 00:00:00* Test Item Value Reference Range Interpretation Comme nts GLUCOSE (test code = 2217) 123 MG/DL BUN (test code = 2208) 17 MG/DL CREATININE (test code = 2214) 0.59 MG/DL eGFR AMER. (test cod e = 73706) 108 ML/MIN/1.73 eGFR NON- AMER. (test code = 48404) 94 ML/MIN/1.73 CALC BUN/CREAT (test code = 2235) 29 RATIO SODIUM (test code = 2231) 144 MEQ/L POTASSIUM (test code = 2228) 4.3 MEQ/L CHLORIDE (test code = 2215) 106 MEQ/L CARBON DIOXIDE (test code = 2206) 28 MEQ/L CALCIUM (test code = 2209) 10.1 MG/DL PROTEIN, TOTAL (test code = 2229) 7.3 G/DL ALBUMIN (test code = 2201) 4.3 G/DL CALC GLOBULIN (test code = 2240) 3.0 G/DL CALC A/G RATIO (test code = 2234) 1.4 RATIO BILIRUBIN, TOTAL (test code = 2207) 0.3 MG/DL ALKALINE PHOSPHATASE (test code = 2204) 92 U/L AST (test code = 2218) 21 U/L ALT (test code = 2219) 17 U/L LIPID [id number] 00:00:00* Test Item Value Reference Range Interpretation Comme nts CHOLESTEROL (test code = 2210) 236 MG/DL TRIGLYCERIDES (test code = 2232) 219 MG/DL HDL CHOLESTEROL (test code = 2220) 52 MG/DL CALC LDL CHOL (test code = 2237) 148 MG/DL RISK RATIO LDL/HDL (test cod e = 2238) 2.85 RATIO LIPID [id number] 00:00:00* Test Item Value Reference Range Interpretation Comme nts CHOLESTEROL (test code = 2210) 236 MG/DL TRIGLYCERIDES (test code = 2232) 219 MG/DL HDL CHOLESTEROL (test code = 2220) 52 MG/DL CALC LDL CHOL (test code = 2237) 148 MG/DL RISK RATIO LDL/HDL (test cod e = 2238) 2.85 RATIO HEMOGLOBIN [id number] 00:00:00* Test Item Value Reference Range Interpretation Comme nts HEMOGLOBIN A1c (test code = 48075) 7.8 % HEMOGLOBIN [id number] 00:00:00* Test Item Value Reference Range Interpretation Comme nts HEMOGLOBIN A1c (test code = 89603) 7.8 % HEMOGLOBIN [id number] 00:00:00* Test Item Value Reference Range Interpretation Comme nts HEMOGLOBIN A1c (test code = 30783) 7.8 % COMPREHENSIVE METABOLIC [id number] 00:00:00* Test Item Value Reference Range Interpretation Comme nts GLUCOSE (test code = 221) 123 MG/DL BUN (test code = 2208) 17 MG/DL CREATININE (test code = 2214) 0.59 MG/DL eGFR AMER. (test cod e = 53788) 108 ML/MIN/1.73 eGFR NON- AMER. (test code = 58163) 94 ML/MIN/1.73 CALC BUN/CREAT (test code = 2235) 29 RATIO SODIUM (test code = 2231) 144 MEQ/L POTASSIUM (test code = 2228) 4.3 MEQ/L CHLORIDE (test code = 2215) 106 MEQ/L CARBON DIOXIDE (test code = 2206) 28 MEQ/L CALCIUM (test code = 2209) 10.1 MG/DL PROTEIN, TOTAL (test code = 2229) 7.3 G/DL ALBUMIN (test code = 2201) 4.3 G/DL CALC GLOBULIN (test code = 2240) 3.0 G/DL CALC A/G RATIO (test code = 2234) 1.4 RATIO BILIRUBIN, TOTAL (test code = 2207) 0.3 MG/DL ALKALINE PHOSPHATASE (test code = 2204) 92 U/L AST (test code = 2218) 21 U/L ALT (test code = 2219) 17 U/L COMPREHENSIVE METABOLIC [id number] 00:00:00* Test Item Value Reference Range Interpretation Comme nts GLUCOSE (test code = 2217) 123 MG/DL BUN (test code = 2208) 17 MG/DL CREATININE (test code = 2214) 0.59 MG/DL eGFR AMER. (test cod e = 99210) 108 ML/MIN/1.73 eGFR NON- AMER. (test code = 86383) 94 ML/MIN/1.73 CALC BUN/CREAT (test code = 2235) 29 RATIO SODIUM (test code = 2231) 144 MEQ/L POTASSIUM (test code = 2228) 4.3 MEQ/L CHLORIDE (test code = 2215) 106 MEQ/L CARBON DIOXIDE (test code = 2206) 28 MEQ/L CALCIUM (test code = 2209) 10.1 MG/DL PROTEIN, TOTAL (test code = 2229) 7.3 G/DL ALBUMIN (test code = 2201) 4.3 G/DL CALC GLOBULIN (test code = 2240) 3.0 G/DL CALC A/G RATIO (test code = 2234) 1.4 RATIO BILIRUBIN, TOTAL (test code = 2207) 0.3 MG/DL ALKALINE PHOSPHATASE (test code = 2204) 92 U/L AST (test code = 2218) 21 U/L ALT (test code = 2219) 17 U/L LIPID [id number] 00:00:00* Test Item Value Reference Range Interpretation Comme nts CHOLESTEROL (test code = 2210) 236 MG/DL TRIGLYCERIDES (test code = 2232) 219 MG/DL HDL CHOLESTEROL (test code = 2220) 52 MG/DL CALC LDL CHOL (test code = 2237) 148 MG/DL RISK RATIO LDL/HDL (test cod e = 2238) 2.85 RATIO LIPID [id number] 00:00:00* Test Item Value Reference Range Interpretation Comme nts CHOLESTEROL (test code = 2210) 236 MG/DL TRIGLYCERIDES (test code = 2232) 219 MG/DL HDL CHOLESTEROL (test code = 2220) 52 MG/DL CALC LDL CHOL (test code = 2237) 148 MG/DL RISK RATIO LDL/HDL (test cod e = 2238) 2.85 RATIO HEMOGLOBIN [id number] 00:00:00* Test Item Value Reference Range Interpretation Comme nts HEMOGLOBIN A1c (test code = 30686) 7.8 % HEMOGLOBIN [id number] 00:00:00* Test Item Value Reference Range Interpretation Comme nts HEMOGLOBIN A1c (test code = 67066) 7.8 % COMPREHENSIVE METABOLIC [id number] 00:00:00* Test Item Value Reference Range Interpretation Comme nts GLUCOSE (test code = 2217) 123 MG/DL BUN (test code = 2208) 17 MG/DL CREATININE (test code = 2214) 0.59 MG/DL eGFR AMER. (test cod e = 18442) 108 ML/MIN/1.73 eGFR NON- AMER. (test code = 86523) 94 ML/MIN/1.73 CALC BUN/CREAT (test code = 2235) 29 RATIO SODIUM (test code = 2231) 144 MEQ/L POTASSIUM (test code = 2228) 4.3 MEQ/L CHLORIDE (test code = 2215) 106 MEQ/L CARBON DIOXIDE (test code = 2206) 28 MEQ/L CALCIUM (test code = 2209) 10.1 MG/DL PROTEIN, TOTAL (test code = 2229) 7.3 G/DL ALBUMIN (test code = 2201) 4.3 G/DL CALC GLOBULIN (test code = 2240) 3.0 G/DL CALC A/G RATIO (test code = 2234) 1.4 RATIO BILIRUBIN, TOTAL (test code = 2207) 0.3 MG/DL ALKALINE PHOSPHATASE (test code = 2204) 92 U/L AST (test code = 2218) 21 U/L ALT (test code = 2219) 17 U/L LIPID [id number] 00:00:00* Test Item Value Reference Range Interpretation Comme nts CHOLESTEROL (test code = 2210) 236 MG/DL TRIGLYCERIDES (test code = 2232) 219 MG/DL HDL CHOLESTEROL (test code = 2220) 52 MG/DL CALC LDL CHOL (test code = 2237) 148 MG/DL RISK RATIO LDL/HDL (test cod e = 2238) 2.85 RATIO COMPREHENSIVE METABOLIC [id number] 00:00:00* Test Item Value Reference Range Interpretation Comme nts GLUCOSE (test code = 2217) 123 MG/DL BUN (test code = 2208) 17 MG/DL CREATININE (test code = 2214) 0.59 MG/DL eGFR AMER. (test cod e = 56517) 108 ML/MIN/1.73 eGFR NON- AMER. (test code = 68787) 94 ML/MIN/1.73 CALC BUN/CREAT (test code = 2235) 29 RATIO SODIUM (test code = 2231) 144 MEQ/L POTASSIUM (test code = 2228) 4.3 MEQ/L CHLORIDE (test code = 2215) 106 MEQ/L CARBON DIOXIDE (test code = 2206) 28 MEQ/L CALCIUM (test code = 2209) 10.1 MG/DL PROTEIN, TOTAL (test code = 2229) 7.3 G/DL ALBUMIN (test code = 2201) 4.3 G/DL CALC GLOBULIN (test code = 2240) 3.0 G/DL CALC A/G RATIO (test code = 2234) 1.4 RATIO BILIRUBIN, TOTAL (test code = 2207) 0.3 MG/DL ALKALINE PHOSPHATASE (test code = 2204) 92 U/L AST (test code = 2218) 21 U/L ALT (test code = 2219) 17 U/L Toney RennerCOMPREHENSIVE METABOLIC [id number] 00:00:00* Test Item Value Reference Range Interpretation Comme nts GLUCOSE (test code = 2217) 99 MG/DL BUN (test code = 2208) 13 MG/DL CREATININE (test code = 2214) 0.52 MG/DL eGFR AMER. (test cod e = 59948) 113 ML/MIN/1.73 eGFR NON- AMER. (test code = 20461) 97 ML/MIN/1.73 CALC BUN/CREAT (test code = 2235) 25 RATIO SODIUM (test code = 2231) 143 MEQ/L POTASSIUM (test code = 2228) 4.3 MEQ/L CHLORIDE (test code = 2215) 105 MEQ/L CARBON DIOXIDE (test code = 2206) 24 MEQ/L CALCIUM (test code = 2209) 10.1 MG/DL PROTEIN, TOTAL (test code = 2229) 7.6 G/DL ALBUMIN (test code = 2201) 4.4 G/DL CALC GLOBULIN (test code = 2240) 3.2 G/DL CALC A/G RATIO (test code = 2234) 1.4 RATIO BILIRUBIN, TOTAL (test code = 2207) 0.5 MG/DL ALKALINE PHOSPHATASE (test code = 2204) 78 U/L AST (test code = 2218) 21 U/L ALT (test code = 2219) 17 U/L LIPID [id number] 00:00:00* Test Item Value Reference Range Interpretation Comme nts CHOLESTEROL (test code = 2210) 215 MG/DL TRIGLYCERIDES (test code = 2232) 179 MG/DL HDL CHOLESTEROL (test code = 2220) 50 MG/DL CALC LDL CHOL (test code = 2237) 134 MG/DL RISK RATIO LDL/HDL (test cod e = 2238) 2.68 RATIO HEMOGLOBIN [id number] 00:00:00* Test Item Value Reference Range Interpretation Comme nts HEMOGLOBIN A1c (test code = 14418) 7.5 % HEMOGLOBIN [id number] 00:00:00* Test Item Value Reference Range Interpretation Comme nts HEMOGLOBIN A1c (test code = 65015) 7.5 % COMPREHENSIVE METABOLIC [id number] 00:00:00* Test Item Value Reference Range Interpretation Comme nts GLUCOSE (test code = 2217) 99 MG/DL BUN (test code = 2208) 13 MG/DL CREATININE (test code = 2214) 0.52 MG/DL eGFR AMER. (test cod e = 20534) 113 ML/MIN/1.73 eGFR NON- AMER. (test code = 92326) 97 ML/MIN/1.73 CALC BUN/CREAT (test code = 2235) 25 RATIO SODIUM (test code = 2231) 143 MEQ/L POTASSIUM (test code = 2228) 4.3 MEQ/L CHLORIDE (test code = 2215) 105 MEQ/L CARBON DIOXIDE (test code = 2206) 24 MEQ/L CALCIUM (test code = 2209) 10.1 MG/DL PROTEIN, TOTAL (test code = 2229) 7.6 G/DL ALBUMIN (test code = 2201) 4.4 G/DL CALC GLOBULIN (test code = 2240) 3.2 G/DL CALC A/G RATIO (test code = 2234) 1.4 RATIO BILIRUBIN, TOTAL (test code = 2207) 0.5 MG/DL ALKALINE PHOSPHATASE (test code = 2204) 78 U/L AST (test code = 2218) 21 U/L ALT (test code = 2219) 17 U/L COMPREHENSIVE METABOLIC [id number] 00:00:00* Test Item Value Reference Range Interpretation Comme nts GLUCOSE (test code = 2217) 99 MG/DL BUN (test code = 2208) 13 MG/DL CREATININE (test code = 2214) 0.52 MG/DL eGFR AMER. (test cod e = 03038) 113 ML/MIN/1.73 eGFR NON- AMER. (test code = 78290) 97 ML/MIN/1.73 CALC BUN/CREAT (test code = 2235) 25 RATIO SODIUM (test code = 2231) 143 MEQ/L POTASSIUM (test code = 2228) 4.3 MEQ/L CHLORIDE (test code = 2215) 105 MEQ/L CARBON DIOXIDE (test code = 2206) 24 MEQ/L CALCIUM (test code = 2209) 10.1 MG/DL PROTEIN, TOTAL (test code = 2229) 7.6 G/DL ALBUMIN (test code = 2201) 4.4 G/DL CALC GLOBULIN (test code = 2240) 3.2 G/DL CALC A/G RATIO (test code = 2234) 1.4 RATIO BILIRUBIN, TOTAL (test code = 2207) 0.5 MG/DL ALKALINE PHOSPHATASE (test code = 2204) 78 U/L AST (test code = 2218) 21 U/L ALT (test code = 2219) 17 U/L LIPID [id number] 00:00:00* Test Item Value Reference Range Interpretation Comme nts CHOLESTEROL (test code = 2210) 215 MG/DL TRIGLYCERIDES (test code = 2232) 179 MG/DL HDL CHOLESTEROL (test code = 2220) 50 MG/DL CALC LDL CHOL (test code = 2237) 134 MG/DL RISK RATIO LDL/HDL (test cod e = 2238) 2.68 RATIO LIPID [id number] 00:00:00* Test Item Value Reference Range Interpretation Comme nts CHOLESTEROL (test code = 2210) 215 MG/DL TRIGLYCERIDES (test code = 2232) 179 MG/DL HDL CHOLESTEROL (test code = 2220) 50 MG/DL CALC LDL CHOL (test code = 2237) 134 MG/DL RISK RATIO LDL/HDL (test cod e = 2238) 2.68 RATIO HEMOGLOBIN [id number] 00:00:00* Test Item Value Reference Range Interpretation Comme nts HEMOGLOBIN A1c (test code = 32669) 7.5 % HEMOGLOBIN [id number] 00:00:00* Test Item Value Reference Range Interpretation Comme nts HEMOGLOBIN A1c (test code = 97535) 7.5 % HEMOGLOBIN [id number] 00:00:00* Test Item Value Reference Range Interpretation Comme nts HEMOGLOBIN A1c (test code = 05821) 7.5 % COMPREHENSIVE METABOLIC [id number] 00:00:00* Test Item Value Reference Range Interpretation Comme nts GLUCOSE (test code = 2217) 99 MG/DL BUN (test code = 2208) 13 MG/DL CREATININE (test code = 2214) 0.52 MG/DL eGFR AMER. (test cod e = 87946) 113 ML/MIN/1.73 eGFR NON- AMER. (test code = 03353) 97 ML/MIN/1.73 CALC BUN/CREAT (test code = 2235) 25 RATIO SODIUM (test code = 2231) 143 MEQ/L POTASSIUM (test code = 2228) 4.3 MEQ/L CHLORIDE (test code = 2215) 105 MEQ/L CARBON DIOXIDE (test code = 2206) 24 MEQ/L CALCIUM (test code = 2209) 10.1 MG/DL PROTEIN, TOTAL (test code = 2229) 7.6 G/DL ALBUMIN (test code = 2201) 4.4 G/DL CALC GLOBULIN (test code = 2240) 3.2 G/DL CALC A/G RATIO (test code = 2234) 1.4 RATIO BILIRUBIN, TOTAL (test code = 2207) 0.5 MG/DL ALKALINE PHOSPHATASE (test code = 2204) 78 U/L AST (test code = 2218) 21 U/L ALT (test code = 2219) 17 U/L COMPREHENSIVE METABOLIC [id number] 00:00:00* Test Item Value Reference Range Interpretation Comme nts GLUCOSE (test code = 2217) 99 MG/DL BUN (test code = 2208) 13 MG/DL CREATININE (test code = 2214) 0.52 MG/DL eGFR AMER. (test cod e = 28968) 113 ML/MIN/1.73 eGFR NON- AMER. (test code = 51608) 97 ML/MIN/1.73 CALC BUN/CREAT (test code = 2235) 25 RATIO SODIUM (test code = 2231) 143 MEQ/L POTASSIUM (test code = 2228) 4.3 MEQ/L CHLORIDE (test code = 2215) 105 MEQ/L CARBON DIOXIDE (test code = 2206) 24 MEQ/L CALCIUM (test code = 2209) 10.1 MG/DL PROTEIN, TOTAL (test code = 2229) 7.6 G/DL ALBUMIN (test code = 2201) 4.4 G/DL CALC GLOBULIN (test code = 2240) 3.2 G/DL CALC A/G RATIO (test code = 2234) 1.4 RATIO BILIRUBIN, TOTAL (test code = 2207) 0.5 MG/DL ALKALINE PHOSPHATASE (test code = 2204) 78 U/L AST (test code = 2218) 21 U/L ALT (test code = 2219) 17 U/L LIPID [id number] 00:00:00* Test Item Value Reference Range Interpretation Comme nts CHOLESTEROL (test code = 2210) 215 MG/DL TRIGLYCERIDES (test code = 2232) 179 MG/DL HDL CHOLESTEROL (test code = 2220) 50 MG/DL CALC LDL CHOL (test code = 2237) 134 MG/DL RISK RATIO LDL/HDL (test cod e = 2238) 2.68 RATIO LIPID [id number] 00:00:00* Test Item Value Reference Range Interpretation Comme nts CHOLESTEROL (test code = 2210) 215 MG/DL TRIGLYCERIDES (test code = 2232) 179 MG/DL HDL CHOLESTEROL (test code = 2220) 50 MG/DL CALC LDL CHOL (test code = 2237) 134 MG/DL RISK RATIO LDL/HDL (test cod e = 2238) 2.68 RATIO HEMOGLOBIN [id number] 00:00:00* Test Item Value Reference Range Interpretation Comme nts HEMOGLOBIN A1c (test code = 05947) 7.5 % HEMOGLOBIN [id number] 00:00:00* Test Item Value Reference Range Interpretation Comme nts HEMOGLOBIN A1c (test code = 59248) 7.5 % HEMOGLOBIN [id number] 00:00:00* Test Item Value Reference Range Interpretation Comme nts HEMOGLOBIN A1c (test code = 68590) 7.5 % COMPREHENSIVE METABOLIC [id number] 00:00:00* Test Item Value Reference Range Interpretation Comme nts GLUCOSE (test code = 2217) 99 MG/DL BUN (test code = 2208) 13 MG/DL CREATININE (test code = 2214) 0.52 MG/DL eGFR AMER. (test cod e = 76879) 113 ML/MIN/1.73 eGFR NON- AMER. (test code = 36501) 97 ML/MIN/1.73 CALC BUN/CREAT (test code = 2235) 25 RATIO SODIUM (test code = 2231) 143 MEQ/L POTASSIUM (test code = 2228) 4.3 MEQ/L CHLORIDE (test code = 2215) 105 MEQ/L CARBON DIOXIDE (test code = 2206) 24 MEQ/L CALCIUM (test code = 2209) 10.1 MG/DL PROTEIN, TOTAL (test code = 2229) 7.6 G/DL ALBUMIN (test code = 2201) 4.4 G/DL CALC GLOBULIN (test code = 2240) 3.2 G/DL CALC A/G RATIO (test code = 2234) 1.4 RATIO BILIRUBIN, TOTAL (test code = 2207) 0.5 MG/DL ALKALINE PHOSPHATASE (test code = 2204) 78 U/L AST (test code = 2218) 21 U/L ALT (test code = 2219) 17 U/L COMPREHENSIVE METABOLIC [id number] 00:00:00* Test Item Value Reference Range Interpretation Comme nts GLUCOSE (test code = 2217) 99 MG/DL BUN (test code = 2208) 13 MG/DL CREATININE (test code = 2214) 0.52 MG/DL eGFR AMER. (test cod e = 45196) 113 ML/MIN/1.73 eGFR NON- AMER. (test code = 26092) 97 ML/MIN/1.73 CALC BUN/CREAT (test code = 2235) 25 RATIO SODIUM (test code = 2231) 143 MEQ/L POTASSIUM (test code = 2228) 4.3 MEQ/L CHLORIDE (test code = 2215) 105 MEQ/L CARBON DIOXIDE (test code = 2206) 24 MEQ/L CALCIUM (test code = 2209) 10.1 MG/DL PROTEIN, TOTAL (test code = 2229) 7.6 G/DL ALBUMIN (test code = 2201) 4.4 G/DL CALC GLOBULIN (test code = 2240) 3.2 G/DL CALC A/G RATIO (test code = 2234) 1.4 RATIO BILIRUBIN, TOTAL (test code = 2207) 0.5 MG/DL ALKALINE PHOSPHATASE (test code = 2204) 78 U/L AST (test code = 2218) 21 U/L ALT (test code = 2219) 17 U/L COMPREHENSIVE METABOLIC [id number] 00:00:00* Test Item Value Reference Range Interpretation Comme nts GLUCOSE (test code = 2217) 99 MG/DL BUN (test code = 2208) 13 MG/DL CREATININE (test code = 2214) 0.52 MG/DL eGFR AMER. (test cod e = 62905) 113 ML/MIN/1.73 eGFR NON- AMER. (test code = 37398) 97 ML/MIN/1.73 CALC BUN/CREAT (test code = 2235) 25 RATIO SODIUM (test code = 2231) 143 MEQ/L POTASSIUM (test code = 2228) 4.3 MEQ/L CHLORIDE (test code = 2215) 105 MEQ/L CARBON DIOXIDE (test code = 2206) 24 MEQ/L CALCIUM (test code = 2209) 10.1 MG/DL PROTEIN, TOTAL (test code = 2229) 7.6 G/DL ALBUMIN (test code = 2201) 4.4 G/DL CALC GLOBULIN (test code = 2240) 3.2 G/DL CALC A/G RATIO (test code = 2234) 1.4 RATIO BILIRUBIN, TOTAL (test code = 2207) 0.5 MG/DL ALKALINE PHOSPHATASE (test code = 2204) 78 U/L AST (test code = 2218) 21 U/L ALT (test code = 2219) 17 U/L LIPID [id number] 00:00:00* Test Item Value Reference Range Interpretation Comme nts CHOLESTEROL (test code = 2210) 215 MG/DL TRIGLYCERIDES (test code = 2232) 179 MG/DL HDL CHOLESTEROL (test code = 2220) 50 MG/DL CALC LDL CHOL (test code = 2237) 134 MG/DL RISK RATIO LDL/HDL (test cod e = 2238) 2.68 RATIO LIPID [id number] 00:00:00* Test Item Value Reference Range Interpretation Comme nts CHOLESTEROL (test code = 2210) 215 MG/DL TRIGLYCERIDES (test code = 2232) 179 MG/DL HDL CHOLESTEROL (test code = 2220) 50 MG/DL CALC LDL CHOL (test code = 2237) 134 MG/DL RISK RATIO LDL/HDL (test cod e = 2238) 2.68 RATIO HEMOGLOBIN [id number] 00:00:00* Test Item Value Reference Range Interpretation Comme nts HEMOGLOBIN A1c (test code = 20946) 7.5 % HEMOGLOBIN [id number] 00:00:00* Test Item Value Reference Range Interpretation Comme nts HEMOGLOBIN A1c (test code = 72767) 7.5 % HEMOGLOBIN [id number] 00:00:00* Test Item Value Reference Range Interpretation Comme nts HEMOGLOBIN A1c (test code = 55263) 7.5 % LIPID [id number] 00:00:00* Test Item Value Reference Range Interpretation Comme nts CHOLESTEROL (test code = 2210) 215 MG/DL TRIGLYCERIDES (test code = 2232) 179 MG/DL HDL CHOLESTEROL (test code = 2220) 50 MG/DL CALC LDL CHOL (test code = 2237) 134 MG/DL RISK RATIO LDL/HDL (test cod e = 2238) 2.68 RATIO HEMOGLOBIN [id number] 00:00:00* Test Item Value Reference Range Interpretation Comme nts HEMOGLOBIN A1c (test code = 29590) 7.5 % HEMOGLOBIN [id number] 00:00:00* Test Item Value Reference Range Interpretation Comme nts HEMOGLOBIN A1c (test code = 08740) 7.5 % COMPREHENSIVE METABOLIC [id number] 00:00:00* Test Item Value Reference Range Interpretation Comme nts GLUCOSE (test code = 2217) 99 MG/DL BUN (test code = 2208) 13 MG/DL CREATININE (test code = 2214) 0.52 MG/DL eGFR AMER. (test cod e = 10550) 113 ML/MIN/1.73 eGFR NON- AMER. (test code = 13640) 97 ML/MIN/1.73 CALC BUN/CREAT (test code = 2235) 25 RATIO SODIUM (test code = 2231) 143 MEQ/L POTASSIUM (test code = 2228) 4.3 MEQ/L CHLORIDE (test code = 2215) 105 MEQ/L CARBON DIOXIDE (test code = 2206) 24 MEQ/L CALCIUM (test code = 2209) 10.1 MG/DL PROTEIN, TOTAL (test code = 2229) 7.6 G/DL ALBUMIN (test code = 2201) 4.4 G/DL CALC GLOBULIN (test code = 2240) 3.2 G/DL CALC A/G RATIO (test code = 2234) 1.4 RATIO BILIRUBIN, TOTAL (test code = 2207) 0.5 MG/DL ALKALINE PHOSPHATASE (test code = 2204) 78 U/L AST (test code = 2218) 21 U/L ALT (test code = 2219) 17 U/L COMPREHENSIVE METABOLIC [id number] 00:00:00* Test Item Value Reference Range Interpretation Comme nts GLUCOSE (test code = 2217) 99 MG/DL BUN (test code = 2208) 13 MG/DL CREATININE (test code = 2214) 0.52 MG/DL eGFR AMER. (test cod e = 72224) 113 ML/MIN/1.73 eGFR NON- AMER. (test code = 07783) 97 ML/MIN/1.73 CALC BUN/CREAT (test code = 2235) 25 RATIO SODIUM (test code = 2231) 143 MEQ/L POTASSIUM (test code = 2228) 4.3 MEQ/L CHLORIDE (test code = 2215) 105 MEQ/L CARBON DIOXIDE (test code = 2206) 24 MEQ/L CALCIUM (test code = 2209) 10.1 MG/DL PROTEIN, TOTAL (test code = 2229) 7.6 G/DL ALBUMIN (test code = 2201) 4.4 G/DL CALC GLOBULIN (test code = 2240) 3.2 G/DL CALC A/G RATIO (test code = 2234) 1.4 RATIO BILIRUBIN, TOTAL (test code = 2207) 0.5 MG/DL ALKALINE PHOSPHATASE (test code = 2204) 78 U/L AST (test code = 2218) 21 U/L ALT (test code = 2219) 17 U/L LIPID [id number] 00:00:00* Test Item Value Reference Range Interpretation Comme nts CHOLESTEROL (test code = 2210) 215 MG/DL TRIGLYCERIDES (test code = 2232) 179 MG/DL HDL CHOLESTEROL (test code = 2220) 50 MG/DL CALC LDL CHOL (test code = 2237) 134 MG/DL RISK RATIO LDL/HDL (test cod e = 2238) 2.68 RATIO LIPID [id number] 00:00:00* Test Item Value Reference Range Interpretation Comme nts CHOLESTEROL (test code = 2210) 215 MG/DL TRIGLYCERIDES (test code = 2232) 179 MG/DL HDL CHOLESTEROL (test code = 2220) 50 MG/DL CALC LDL CHOL (test code = 2237) 134 MG/DL RISK RATIO LDL/HDL (test cod e = 2238) 2.68 RATIO HEMOGLOBIN [id number] 00:00:00* Test Item Value Reference Range Interpretation Comme nts HEMOGLOBIN A1c (test code = 80174) 7.5 % HEMOGLOBIN [id number] 00:00:00* Test Item Value Reference Range Interpretation Comme nts HEMOGLOBIN A1c (test code = 27602) 7.5 % HEMOGLOBIN [id number] 00:00:00* Test Item Value Reference Range Interpretation Comme nts HEMOGLOBIN A1c (test code = 42022) 7.5 % COMPREHENSIVE METABOLIC [id number] 00:00:00* Test Item Value Reference Range Interpretation Comme nts GLUCOSE (test code = 2217) 99 MG/DL BUN (test code = 2208) 13 MG/DL CREATININE (test code = 2214) 0.52 MG/DL eGFR AMER. (test cod e = 38344) 113 ML/MIN/1.73 eGFR NON- AMER. (test code = 86059) 97 ML/MIN/1.73 CALC BUN/CREAT (test code = 2235) 25 RATIO SODIUM (test code = 2231) 143 MEQ/L POTASSIUM (test code = 2228) 4.3 MEQ/L CHLORIDE (test code = 2215) 105 MEQ/L CARBON DIOXIDE (test code = 2206) 24 MEQ/L CALCIUM (test code = 2209) 10.1 MG/DL PROTEIN, TOTAL (test code = 2229) 7.6 G/DL ALBUMIN (test code = 2201) 4.4 G/DL CALC GLOBULIN (test code = 2240) 3.2 G/DL CALC A/G RATIO (test code = 2234) 1.4 RATIO BILIRUBIN, TOTAL (test code = 2207) 0.5 MG/DL ALKALINE PHOSPHATASE (test code = 2204) 78 U/L AST (test code = 2218) 21 U/L ALT (test code = 2219) 17 U/L COMPREHENSIVE METABOLIC [id number] 00:00:00* Test Item Value Reference Range Interpretation Comme nts GLUCOSE (test code = 2217) 99 MG/DL BUN (test code = 2208) 13 MG/DL CREATININE (test code = 2214) 0.52 MG/DL eGFR AMER. (test cod e = 39627) 113 ML/MIN/1.73 eGFR NON- AMER. (test code = 73301) 97 ML/MIN/1.73 CALC BUN/CREAT (test code = 2235) 25 RATIO SODIUM (test code = 2231) 143 MEQ/L POTASSIUM (test code = 2228) 4.3 MEQ/L CHLORIDE (test code = 2215) 105 MEQ/L CARBON DIOXIDE (test code = 2206) 24 MEQ/L CALCIUM (test code = 2209) 10.1 MG/DL PROTEIN, TOTAL (test code = 2229) 7.6 G/DL ALBUMIN (test code = 2201) 4.4 G/DL CALC GLOBULIN (test code = 2240) 3.2 G/DL CALC A/G RATIO (test code = 2234) 1.4 RATIO BILIRUBIN, TOTAL (test code = 2207) 0.5 MG/DL ALKALINE PHOSPHATASE (test code = 2204) 78 U/L AST (test code = 2218) 21 U/L ALT (test code = 2219) 17 U/L LIPID [id number] 00:00:00* Test Item Value Reference Range Interpretation Comme nts CHOLESTEROL (test code = 2210) 215 MG/DL TRIGLYCERIDES (test code = 2232) 179 MG/DL HDL CHOLESTEROL (test code = 2220) 50 MG/DL CALC LDL CHOL (test code = 2237) 134 MG/DL RISK RATIO LDL/HDL (test cod e = 2238) 2.68 RATIO LIPID [id number] 00:00:00* Test Item Value Reference Range Interpretation Comme nts CHOLESTEROL (test code = 2210) 215 MG/DL TRIGLYCERIDES (test code = 2232) 179 MG/DL HDL CHOLESTEROL (test code = 2220) 50 MG/DL CALC LDL CHOL (test code = 2237) 134 MG/DL RISK RATIO LDL/HDL (test cod e = 2238) 2.68 RATIO HEMOGLOBIN [id number] 00:00:00* Test Item Value Reference Range Interpretation Comme nts HEMOGLOBIN A1c (test code = 09658) 7.5 % HEMOGLOBIN [id number] 00:00:00* Test Item Value Reference Range Interpretation Comme nts HEMOGLOBIN A1c (test code = 38145) 7.5 % HEMOGLOBIN [id number] 00:00:00* Test Item Value Reference Range Interpretation Comme nts HEMOGLOBIN A1c (test code = 68047) 7.5 % COMPREHENSIVE METABOLIC [id number] 00:00:00* Test Item Value Reference Range Interpretation Comme nts GLUCOSE (test code = 2217) 99 MG/DL BUN (test code = 2208) 13 MG/DL CREATININE (test code = 2214) 0.52 MG/DL eGFR AMER. (test cod e = 73143) 113 ML/MIN/1.73 eGFR NON- AMER. (test code = 01162) 97 ML/MIN/1.73 CALC BUN/CREAT (test code = 2235) 25 RATIO SODIUM (test code = 2231) 143 MEQ/L POTASSIUM (test code = 2228) 4.3 MEQ/L CHLORIDE (test code = 2215) 105 MEQ/L CARBON DIOXIDE (test code = 2206) 24 MEQ/L CALCIUM (test code = 2209) 10.1 MG/DL PROTEIN, TOTAL (test code = 2229) 7.6 G/DL ALBUMIN (test code = 2201) 4.4 G/DL CALC GLOBULIN (test code = 2240) 3.2 G/DL CALC A/G RATIO (test code = 2234) 1.4 RATIO BILIRUBIN, TOTAL (test code = 2207) 0.5 MG/DL ALKALINE PHOSPHATASE (test code = 2204) 78 U/L AST (test code = 2218) 21 U/L ALT (test code = 2219) 17 U/L COMPREHENSIVE METABOLIC [id number] 00:00:00* Test Item Value Reference Range Interpretation Comme nts GLUCOSE (test code = 2217) 99 MG/DL BUN (test code = 2208) 13 MG/DL CREATININE (test code = 2214) 0.52 MG/DL eGFR AMER. (test cod e = 69625) 113 ML/MIN/1.73 eGFR NON- AMER. (test code = 15469) 97 ML/MIN/1.73 CALC BUN/CREAT (test code = 2235) 25 RATIO SODIUM (test code = 2231) 143 MEQ/L POTASSIUM (test code = 2228) 4.3 MEQ/L CHLORIDE (test code = 2215) 105 MEQ/L CARBON DIOXIDE (test code = 2206) 24 MEQ/L CALCIUM (test code = 2209) 10.1 MG/DL PROTEIN, TOTAL (test code = 2229) 7.6 G/DL ALBUMIN (test code = 2201) 4.4 G/DL CALC GLOBULIN (test code = 2240) 3.2 G/DL CALC A/G RATIO (test code = 2234) 1.4 RATIO BILIRUBIN, TOTAL (test code = 2207) 0.5 MG/DL ALKALINE PHOSPHATASE (test code = 2204) 78 U/L AST (test code = 2218) 21 U/L ALT (test code = 2219) 17 U/L LIPID [id number] 00:00:00* Test Item Value Reference Range Interpretation Comme nts CHOLESTEROL (test code = 2210) 215 MG/DL TRIGLYCERIDES (test code = 2232) 179 MG/DL HDL CHOLESTEROL (test code = 2220) 50 MG/DL CALC LDL CHOL (test code = 2237) 134 MG/DL RISK RATIO LDL/HDL (test cod e = 2238) 2.68 RATIO LIPID [id number] 00:00:00* Test Item Value Reference Range Interpretation Comme nts CHOLESTEROL (test code = 2210) 215 MG/DL TRIGLYCERIDES (test code = 2232) 179 MG/DL HDL CHOLESTEROL (test code = 2220) 50 MG/DL CALC LDL CHOL (test code = 2237) 134 MG/DL RISK RATIO LDL/HDL (test cod e = 2238) 2.68 RATIO HEMOGLOBIN [id number] 00:00:00* Test Item Value Reference Range Interpretation Comme nts HEMOGLOBIN A1c (test code = 94685) 7.5 % HEMOGLOBIN [id number] 00:00:00* Test Item Value Reference Range Interpretation Comme nts HEMOGLOBIN A1c (test code = 35535) 7.5 % HEMOGLOBIN [id number] 00:00:00* Test Item Value Reference Range Interpretation Comme nts HEMOGLOBIN A1c (test code = 91120) 7.5 % COMPREHENSIVE METABOLIC [id number] 00:00:00* Test Item Value Reference Range Interpretation Comme nts GLUCOSE (test code = 2217) 99 MG/DL BUN (test code = 2208) 13 MG/DL CREATININE (test code = 2214) 0.52 MG/DL eGFR AMER. (test cod e = 58145) 113 ML/MIN/1.73 eGFR NON- AMER. (test code = 35464) 97 ML/MIN/1.73 CALC BUN/CREAT (test code = 2235) 25 RATIO SODIUM (test code = 2231) 143 MEQ/L POTASSIUM (test code = 2228) 4.3 MEQ/L CHLORIDE (test code = 2215) 105 MEQ/L CARBON DIOXIDE (test code = 2206) 24 MEQ/L CALCIUM (test code = 2209) 10.1 MG/DL PROTEIN, TOTAL (test code = 2229) 7.6 G/DL ALBUMIN (test code = 2201) 4.4 G/DL CALC GLOBULIN (test code = 2240) 3.2 G/DL CALC A/G RATIO (test code = 2234) 1.4 RATIO BILIRUBIN, TOTAL (test code = 2207) 0.5 MG/DL ALKALINE PHOSPHATASE (test code = 2204) 78 U/L AST (test code = 2218) 21 U/L ALT (test code = 2219) 17 U/L LIPID [id number] 00:00:00* Test Item Value Reference Range Interpretation Comme nts CHOLESTEROL (test code = 2210) 215 MG/DL TRIGLYCERIDES (test code = 2232) 179 MG/DL HDL CHOLESTEROL (test code = 2220) 50 MG/DL CALC LDL CHOL (test code = 2237) 134 MG/DL RISK RATIO LDL/HDL (test cod e = 2238) 2.68 RATIO HEMOGLOBIN [id number] 00:00:00* Test Item Value Reference Range Interpretation Comme nts HEMOGLOBIN A1c (test code = 50053) 7.5 % HEMOGLOBIN [id number] 00:00:00* Test Item Value Reference Range Interpretation Comme nts HEMOGLOBIN A1c (test code = 66844) 7.5 % COMPREHENSIVE METABOLIC [id number] 00:00:00* Test Item Value Reference Range Interpretation Comme nts GLUCOSE (test code = 7) 99 MG/DL BUN (test code = 2208) 13 MG/DL CREATININE (test code = 2214) 0.52 MG/DL eGFR AMER. (test cod e = 26873) 113 ML/MIN/1.73 eGFR NON- AMER. (test code = 40175) 97 ML/MIN/1.73 CALC BUN/CREAT (test code = 2235) 25 RATIO SODIUM (test code = 2231) 143 MEQ/L POTASSIUM (test code = 2228) 4.3 MEQ/L CHLORIDE (test code = 2215) 105 MEQ/L CARBON DIOXIDE (test code = 2206) 24 MEQ/L CALCIUM (test code = 2209) 10.1 MG/DL PROTEIN, TOTAL (test code = 2229) 7.6 G/DL ALBUMIN (test code = 2201) 4.4 G/DL CALC GLOBULIN (test code = 2240) 3.2 G/DL CALC A/G RATIO (test code = 2234) 1.4 RATIO BILIRUBIN, TOTAL (test code = 2207) 0.5 MG/DL ALKALINE PHOSPHATASE (test code = 2204) 78 U/L AST (test code = 2218) 21 U/L ALT (test code = 2219) 17 U/L Toney RennerLIPID [id number] 00:00:00* Test Item Value Reference Range Interpretation Comme nts CHOLESTEROL (test code = 2210) 215 MG/DL TRIGLYCERIDES (test code = 2232) 179 MG/DL HDL CHOLESTEROL (test code = 2220) 50 MG/DL CALC LDL CHOL (test code = 2237) 134 MG/DL RISK RATIO LDL/HDL (test cod e = 2238) 2.68 RATIO Toney RennerHEMOGLOBIN [id number] 00:00:00* Test Item Value Reference Range Interpretation Comme nts HEMOGLOBIN A1c (test code = 35457) 7.5 % Toney RennerSARS-CoV-2 (COVID-19) by RT-PCR (HIGH RISK)2020-06-30 00:00:00* Test Item Value Reference Range Interpretation Comme nts SARS-CoV-2 INTERPRETATION (test code = 21333) Negative SOURCE (test code = 98633) Nasal_Swab_in _VTM__ UTM SARS-CoV-2 (COVID-19) by RT-PCR (HIGH RISK)2020-06-30 00:00:00* Test Item Value Reference Range Interpretation Comme nts SARS-CoV-2 INTERPRETATION (test code = 29575) Negative SOURCE (test code = 88161) Nasal_Swab_in _VTM__ UTM SARS-CoV-2 (COVID-19) by RT-PCR (HIGH RISK)2020-06-30 00:00:00* Test Item Value Reference Range Interpretation Comme nts SARS-CoV-2 INTERPRETATION (test code = 22635) Negative SOURCE (test code = 54180) Nasal_Swab_in _VTM__ UTM SARS-CoV-2 (COVID-19) by RT-PCR (HIGH RISK)2020-06-30 00:00:00* Test Item Value Reference Range Interpretation Comme nts SARS-CoV-2 INTERPRETATION (test code = 64302) Negative SOURCE (test code = 55119) Nasal_Swab_in _VTM__ UTM SARS-CoV-2 (COVID-19) by RT-PCR (HIGH RISK)2020-06-30 00:00:00* Test Item Value Reference Range Interpretation Comme nts SARS-CoV-2 INTERPRETATION (test code = 30521) Negative SOURCE (test code = 52430) Nasal_Swab_in _VTM__ UTM SARS-CoV-2 (COVID-19) by RT-PCR (HIGH RISK)2020-06-30 00:00:00* Test Item Value Reference Range Interpretation Comme nts SARS-CoV-2 INTERPRETATION (test code = 44811) Negative SOURCE (test code = 00795) Nasal_Swab_in _VTM__ UTM SARS-CoV-2 (COVID-19) by RT-PCR (HIGH RISK)2020-06-30 00:00:00* Test Item Value Reference Range Interpretation Comme nts SARS-CoV-2 INTERPRETATION (test code = 83261) Negative SOURCE (test code = 18578) Nasal_Swab_in _VTM__ UTM SARS-CoV-2 (COVID-19) by RT-PCR (HIGH RISK)2020-06-30 00:00:00* Test Item Value Reference Range Interpretation Comme nts SARS-CoV-2 INTERPRETATION (test code = 05243) Negative SOURCE (test code = 79741) Nasal_Swab_in _VTM__ UTM SARS-CoV-2 (COVID-19) by RT-PCR (HIGH RISK)2020-06-30 00:00:00* Test Item Value Reference Range Interpretation Comme nts SARS-CoV-2 INTERPRETATION (test code = 00395) Negative SOURCE (test code = 89326) Nasal_Swab_in _VTM__ UTM SARS-CoV-2 (COVID-19) by RT-PCR (HIGH RISK)2020-06-30 00:00:00* Test Item Value Reference Range Interpretation Comme nts SARS-CoV-2 INTERPRETATION (test code = 30232) Negative SOURCE (test code = 07611) Nasal_Swab_in _VTM__ UTM Toney Cowan [id number] (COVID-19) by RT-PCR (HIGH RISK)2020-06-10 00:00:00* Test Item Value Reference Range Interpretation Comme nts SARS-CoV-2 INTERPRETATION (t est code = 81635) POSITIVE SOURCE (test code = 44583) NOT SPECIFIED Toney Cowan [id number] (COVID-19) by RT-PCR (HIGH RISK)2020-06-10 00:00:00* Test Item Value Reference Range Interpretation Comme nts SARS-CoV-2 INTERPRETATION (t est code = 77861) POSITIVE SOURCE (test code = 99756) NOT SPECIFIED SARS-CoV-2 (COVID-19) by RT-PCR (HIGH RISK)2020-06-10 00:00:00* Test Item Value Reference Range Interpretation Comme nts SARS-CoV-2 INTERPRETATION (t est code = 69379) POSITIVE SOURCE (test code = 56177) NOT SPECIFIED SARS-CoV-2 (COVID-19) by RT-PCR (HIGH RISK)2020-06-10 00:00:00* Test Item Value Reference Range Interpretation Comme nts SARS-CoV-2 INTERPRETATION (t est code = 83085) POSITIVE SOURCE (test code = 94504) NOT SPECIFIED SARS-CoV-2 (COVID-19) by RT-PCR (HIGH RISK)2020-06-10 00:00:00* Test Item Value Reference Range Interpretation Comme nts SARS-CoV-2 INTERPRETATION (t est code = 71791) POSITIVE SOURCE (test code = 88818) NOT SPECIFIED SARS-CoV-2 (COVID-19) by RT-PCR (HIGH RISK)2020-06-10 00:00:00* Test Item Value Reference Range Interpretation Comme nts SARS-CoV-2 INTERPRETATION (t est code = 52346) POSITIVE SOURCE (test code = 50086) NOT SPECIFIED SARS-CoV-2 (COVID-19) by RT-PCR (HIGH RISK)2020-06-10 00:00:00* Test Item Value Reference Range Interpretation Comme nts SARS-CoV-2 INTERPRETATION (t est code = 56239) POSITIVE SOURCE (test code = 55010) NOT SPECIFIED SARS-CoV-2 (COVID-19) by RT-PCR (HIGH RISK)2020-06-10 00:00:00* Test Item Value Reference Range Interpretation Comme nts SARS-CoV-2 INTERPRETATION (t est code = 57380) POSITIVE SOURCE (test code = 93125) NOT SPECIFIED SARS-CoV-2 (COVID-19) by RT-PCR (HIGH RISK)2020-06-10 00:00:00* Test Item Value Reference Range Interpretation Comme nts SARS-CoV-2 INTERPRETATION (t est code = 95960) POSITIVE SOURCE (test code = 12392) NOT SPECIFIED SARS-CoV-2 (COVID-19) by RT-PCR (HIGH RISK)2020-06-10 00:00:00* Test Item Value Reference Range Interpretation Comme nts SARS-CoV-2 INTERPRETATION (t est code = 67643) POSITIVE SOURCE (test code = 65657) NOT SPECIFIED SARS-CoV-2 (COVID-19) by RT-PCR (HIGH RISK)2020-06-10 00:00:00* Test Item Value Reference Range Interpretation Comme nts SARS-CoV-2 INTERPRETATION (t est code = 14373) POSITIVE SOURCE (test code = 34511) NOT SPECIFIED SARS-CoV-2 (COVID-19) by RT-PCR (HIGH RISK)2020-06-10 00:00:00* Test Item Value Reference Range Interpretation Comme nts SARS-CoV-2 INTERPRETATION (t est code = 91749) POSITIVE SOURCE (test code = 90141) NOT SPECIFIED SARS-CoV-2 (COVID-19) by RT-PCR (HIGH RISK)2020-06-10 00:00:00* Test Item Value Reference Range Interpretation Comme nts SARS-CoV-2 INTERPRETATION (t est code = 27819) POSITIVE SOURCE (test code = 67891) NOT SPECIFIED SARS-CoV-2 (COVID-19) by RT-PCR (HIGH RISK)2020-06-10 00:00:00* Test Item Value Reference Range Interpretation Comme nts SARS-CoV-2 INTERPRETATION (t est code = 93326) POSITIVE SOURCE (test code = 40484) NOT SPECIFIED SARS-CoV-2 (COVID-19) by RT-PCR (HIGH RISK)2020-06-10 00:00:00* Test Item Value Reference Range Interpretation Comme nts SARS-CoV-2 INTERPRETATION (t est code = 32386) POSITIVE SOURCE (test code = 66152) NOT SPECIFIED SARS-CoV-2 (COVID-19) by RT-PCR (HIGH RISK)2020-06-10 00:00:00* Test Item Value Reference Range Interpretation Comme nts SARS-CoV-2 INTERPRETATION (t est code = 11395) POSITIVE SOURCE (test code = 57742) NOT SPECIFIED HEMOGLOBIN [id number] 00:00:00* Test Item Value Reference Range Interpretation Comme nts HEMOGLOBIN A1c (test code = 57346) 7.1 % HEMOGLOBIN [id number] 00:00:00* Test Item Value Reference Range Interpretation Comme nts HEMOGLOBIN A1c (test code = 19901) 7.1 % HEMOGLOBIN [id number] 00:00:00* Test Item Value Reference Range Interpretation Comme nts HEMOGLOBIN A1c (test code = 65732) 7.1 % HEMOGLOBIN [id number] 00:00:00* Test Item Value Reference Range Interpretation Comme nts HEMOGLOBIN A1c (test code = 69572) 7.1 % HEMOGLOBIN [id number] 00:00:00* Test Item Value Reference Range Interpretation Comme nts HEMOGLOBIN A1c (test code = 41637) 7.1 % HEMOGLOBIN [id number] 00:00:00* Test Item Value Reference Range Interpretation Comme nts HEMOGLOBIN A1c (test code = 50093) 7.1 % HEMOGLOBIN [id number] 00:00:00* Test Item Value Reference Range Interpretation Comme nts HEMOGLOBIN A1c (test code = 05054) 7.1 % HEMOGLOBIN [id number] 00:00:00* Test Item Value Reference Range Interpretation Comme nts HEMOGLOBIN A1c (test code = 04377) 7.1 % HEMOGLOBIN [id number] 00:00:00* Test Item Value Reference Range Interpretation Comme nts HEMOGLOBIN A1c (test code = 23393) 7.1 % HEMOGLOBIN [id number] 00:00:00* Test Item Value Reference Range Interpretation Comme nts HEMOGLOBIN A1c (test code = 31646) 7.1 % HEMOGLOBIN [id number] 00:00:00* Test Item Value Reference Range Interpretation Comme nts HEMOGLOBIN A1c (test code = 02365) 7.1 % HEMOGLOBIN [id number] 00:00:00* Test Item Value Reference Range Interpretation Comme nts HEMOGLOBIN A1c (test code = 61648) 7.1 % HEMOGLOBIN [id number] 00:00:00* Test Item Value Reference Range Interpretation Comme nts HEMOGLOBIN A1c (test code = 46364) 7.1 % HEMOGLOBIN [id number] 00:00:00* Test Item Value Reference Range Interpretation Comme nts HEMOGLOBIN A1c (test code = 97024) 7.1 % HEMOGLOBIN [id number] 00:00:00* Test Item Value Reference Range Interpretation Comme nts HEMOGLOBIN A1c (test code = 68855) 7.1 % HEMOGLOBIN [id number] 00:00:00* Test Item Value Reference Range Interpretation Comme nts HEMOGLOBIN A1c (test code = 14056) 7.1 % HEMOGLOBIN [id number] 00:00:00* Test Item Value Reference Range Interpretation Comme nts HEMOGLOBIN A1c (test code = 44132) 7.1 % HEMOGLOBIN [id number] 00:00:00* Test Item Value Reference Range Interpretation Comme nts HEMOGLOBIN A1c (test code = 01057) 7.1 % HEMOGLOBIN [id number] 00:00:00* Test Item Value Reference Range Interpretation Comme nts HEMOGLOBIN A1c (test code = 92093) 7.1 % HEMOGLOBIN [id number] 00:00:00* Test Item Value Reference Range Interpretation Comme nts HEMOGLOBIN A1c (test code = 89553) 7.1 % HEMOGLOBIN [id number] 00:00:00* Test Item Value Reference Range Interpretation Comme nts HEMOGLOBIN A1c (test code = 70738) 7.1 % HEMOGLOBIN [id number] 00:00:00* Test Item Value Reference Range Interpretation Comme nts HEMOGLOBIN A1c (test code = 87733) 7.1 % HEMOGLOBIN [id number] 00:00:00* Test Item Value Reference Range Interpretation Comme nts HEMOGLOBIN A1c (test code = 50054) 7.1 % HEMOGLOBIN [id number] 00:00:00* Test Item Value Reference Range Interpretation Comme nts HEMOGLOBIN A1c (test code = 41780) 7.1 % HEMOGLOBIN [id number] 00:00:00* Test Item Value Reference Range Interpretation Comme nts HEMOGLOBIN A1c (test code = 96151) 7.1 % Toney RennerCOMPREHENSIVE METABOLIC [id number] 00:00:00* Test Item Value Reference Range Interpretation Comme nts GLUCOSE (test code = 2217) 234 MG/DL BUN (test code = 2208) 18 MG/DL CREATININE (test code = 2214) 0.61 MG/DL eGFR AMER. (test cod e = 20321) 108 ML/MIN/1.73 eGFR NON- AMER. (test code = 62835) 93 ML/MIN/1.73 CALC BUN/CREAT (test code = 2235) 30 RATIO SODIUM (test code = 2231) 144 MEQ/L POTASSIUM (test code = 2228) 4.5 MEQ/L CHLORIDE (test code = 2215) 104 MEQ/L CARBON DIOXIDE (test code = 2206) 26 MEQ/L CALCIUM (test code = 2209) 10.4 MG/DL PROTEIN, TOTAL (test code = 2229) 7.4 G/DL ALBUMIN (test code = 2201) 4.1 G/DL CALC GLOBULIN (test code = 2240) 3.3 G/DL CALC A/G RATIO (test code = 2234) 1.2 RATIO BILIRUBIN, TOTAL (test code = 2207) 0.5 MG/DL ALKALINE PHOSPHATASE (test code = 2204) 75 U/L AST (test code = 2218) 22 U/L ALT (test code = 2219) 19 U/L LIPID [id number] 00:00:00* Test Item Value Reference Range Interpretation Comme nts CHOLESTEROL (test code = 2210) 199 MG/DL TRIGLYCERIDES (test code = 2232) 164 MG/DL HDL CHOLESTEROL (test code = 2220) 45 MG/DL CALC LDL CHOL (test code = 2237) 126 MG/DL RISK RATIO LDL/HDL (test cod e = 2238) 2.80 RATIO COMPREHENSIVE METABOLIC [id number] 00:00:00* Test Item Value Reference Range Interpretation Comme nts GLUCOSE (test code = 2217) 234 MG/DL BUN (test code = 2208) 18 MG/DL CREATININE (test code = 2214) 0.61 MG/DL eGFR AMER. (test cod e = 30040) 108 ML/MIN/1.73 eGFR NON- AMER. (test code = 25914) 93 ML/MIN/1.73 CALC BUN/CREAT (test code = 2235) 30 RATIO SODIUM (test code = 2231) 144 MEQ/L POTASSIUM (test code = 2228) 4.5 MEQ/L CHLORIDE (test code = 2215) 104 MEQ/L CARBON DIOXIDE (test code = 2206) 26 MEQ/L CALCIUM (test code = 2209) 10.4 MG/DL PROTEIN, TOTAL (test code = 2229) 7.4 G/DL ALBUMIN (test code = 2201) 4.1 G/DL CALC GLOBULIN (test code = 2240) 3.3 G/DL CALC A/G RATIO (test code = 2234) 1.2 RATIO BILIRUBIN, TOTAL (test code = 2207) 0.5 MG/DL ALKALINE PHOSPHATASE (test code = 2204) 75 U/L AST (test code = 2218) 22 U/L ALT (test code = 2219) 19 U/L COMPREHENSIVE METABOLIC [id number] 00:00:00* Test Item Value Reference Range Interpretation Comme nts GLUCOSE (test code = 2217) 234 MG/DL BUN (test code = 2208) 18 MG/DL CREATININE (test code = 2214) 0.61 MG/DL eGFR AMER. (test cod e = 39576) 108 ML/MIN/1.73 eGFR NON- AMER. (test code = 17782) 93 ML/MIN/1.73 CALC BUN/CREAT (test code = 2235) 30 RATIO SODIUM (test code = 2231) 144 MEQ/L POTASSIUM (test code = 2228) 4.5 MEQ/L CHLORIDE (test code = 2215) 104 MEQ/L CARBON DIOXIDE (test code = 2206) 26 MEQ/L CALCIUM (test code = 2209) 10.4 MG/DL PROTEIN, TOTAL (test code = 2229) 7.4 G/DL ALBUMIN (test code = 2201) 4.1 G/DL CALC GLOBULIN (test code = 2240) 3.3 G/DL CALC A/G RATIO (test code = 2234) 1.2 RATIO BILIRUBIN, TOTAL (test code = 2207) 0.5 MG/DL ALKALINE PHOSPHATASE (test code = 2204) 75 U/L AST (test code = 2218) 22 U/L ALT (test code = 2219) 19 U/L LIPID [id number] 00:00:00* Test Item Value Reference Range Interpretation Comme nts CHOLESTEROL (test code = 2210) 199 MG/DL TRIGLYCERIDES (test code = 2232) 164 MG/DL HDL CHOLESTEROL (test code = 2220) 45 MG/DL CALC LDL CHOL (test code = 2237) 126 MG/DL RISK RATIO LDL/HDL (test cod e = 2238) 2.80 RATIO LIPID [id number] 00:00:00* Test Item Value Reference Range Interpretation Comme nts CHOLESTEROL (test code = 2210) 199 MG/DL TRIGLYCERIDES (test code = 2232) 164 MG/DL HDL CHOLESTEROL (test code = 2220) 45 MG/DL CALC LDL CHOL (test code = 2237) 126 MG/DL RISK RATIO LDL/HDL (test cod e = 2238) 2.80 RATIO COMPREHENSIVE METABOLIC [id number] 00:00:00* Test Item Value Reference Range Interpretation Comme nts GLUCOSE (test code = 2217) 234 MG/DL BUN (test code = 2208) 18 MG/DL CREATININE (test code = 2214) 0.61 MG/DL eGFR AMER. (test cod e = 53569) 108 ML/MIN/1.73 eGFR NON- AMER. (test code = 78783) 93 ML/MIN/1.73 CALC BUN/CREAT (test code = 2235) 30 RATIO SODIUM (test code = 2231) 144 MEQ/L POTASSIUM (test code = 2228) 4.5 MEQ/L CHLORIDE (test code = 2215) 104 MEQ/L CARBON DIOXIDE (test code = 2206) 26 MEQ/L CALCIUM (test code = 2209) 10.4 MG/DL PROTEIN, TOTAL (test code = 2229) 7.4 G/DL ALBUMIN (test code = 2201) 4.1 G/DL CALC GLOBULIN (test code = 2240) 3.3 G/DL CALC A/G RATIO (test code = 2234) 1.2 RATIO BILIRUBIN, TOTAL (test code = 2207) 0.5 MG/DL ALKALINE PHOSPHATASE (test code = 2204) 75 U/L AST (test code = 2218) 22 U/L ALT (test code = 2219) 19 U/L COMPREHENSIVE METABOLIC [id number] 00:00:00* Test Item Value Reference Range Interpretation Comme nts GLUCOSE (test code = 2217) 234 MG/DL BUN (test code = 2208) 18 MG/DL CREATININE (test code = 2214) 0.61 MG/DL eGFR AMER. (test cod e = 45561) 108 ML/MIN/1.73 eGFR NON- AMER. (test code = 08783) 93 ML/MIN/1.73 CALC BUN/CREAT (test code = 2235) 30 RATIO SODIUM (test code = 2231) 144 MEQ/L POTASSIUM (test code = 2228) 4.5 MEQ/L CHLORIDE (test code = 2215) 104 MEQ/L CARBON DIOXIDE (test code = 2206) 26 MEQ/L CALCIUM (test code = 2209) 10.4 MG/DL PROTEIN, TOTAL (test code = 2229) 7.4 G/DL ALBUMIN (test code = 2201) 4.1 G/DL CALC GLOBULIN (test code = 2240) 3.3 G/DL CALC A/G RATIO (test code = 2234) 1.2 RATIO BILIRUBIN, TOTAL (test code = 2207) 0.5 MG/DL ALKALINE PHOSPHATASE (test code = 2204) 75 U/L AST (test code = 2218) 22 U/L ALT (test code = 2219) 19 U/L LIPID [id number] 00:00:00* Test Item Value Reference Range Interpretation Comme nts CHOLESTEROL (test code = 2210) 199 MG/DL TRIGLYCERIDES (test code = 2232) 164 MG/DL HDL CHOLESTEROL (test code = 2220) 45 MG/DL CALC LDL CHOL (test code = 2237) 126 MG/DL RISK RATIO LDL/HDL (test cod e = 2238) 2.80 RATIO LIPID [id number] 00:00:00* Test Item Value Reference Range Interpretation Comme nts CHOLESTEROL (test code = 2210) 199 MG/DL TRIGLYCERIDES (test code = 2232) 164 MG/DL HDL CHOLESTEROL (test code = 2220) 45 MG/DL CALC LDL CHOL (test code = 2237) 126 MG/DL RISK RATIO LDL/HDL (test cod e = 2238) 2.80 RATIO COMPREHENSIVE METABOLIC [id number] 00:00:00* Test Item Value Reference Range Interpretation Comme nts GLUCOSE (test code = 2217) 234 MG/DL BUN (test code = 2208) 18 MG/DL CREATININE (test code = 2214) 0.61 MG/DL eGFR AMER. (test cod e = 64595) 108 ML/MIN/1.73 eGFR NON- AMER. (test code = 57826) 93 ML/MIN/1.73 CALC BUN/CREAT (test code = 2235) 30 RATIO SODIUM (test code = 2231) 144 MEQ/L POTASSIUM (test code = 2228) 4.5 MEQ/L CHLORIDE (test code = 2215) 104 MEQ/L CARBON DIOXIDE (test code = 2206) 26 MEQ/L CALCIUM (test code = 2209) 10.4 MG/DL PROTEIN, TOTAL (test code = 2229) 7.4 G/DL ALBUMIN (test code = 2201) 4.1 G/DL CALC GLOBULIN (test code = 2240) 3.3 G/DL CALC A/G RATIO (test code = 2234) 1.2 RATIO BILIRUBIN, TOTAL (test code = 2207) 0.5 MG/DL ALKALINE PHOSPHATASE (test code = 2204) 75 U/L AST (test code = 2218) 22 U/L ALT (test code = 2219) 19 U/L COMPREHENSIVE METABOLIC [id number] 00:00:00* Test Item Value Reference Range Interpretation Comme nts GLUCOSE (test code = 2217) 234 MG/DL BUN (test code = 2208) 18 MG/DL CREATININE (test code = 2214) 0.61 MG/DL eGFR AMER. (test cod e = 70376) 108 ML/MIN/1.73 eGFR NON- AMER. (test code = 04000) 93 ML/MIN/1.73 CALC BUN/CREAT (test code = 2235) 30 RATIO SODIUM (test code = 2231) 144 MEQ/L POTASSIUM (test code = 2228) 4.5 MEQ/L CHLORIDE (test code = 2215) 104 MEQ/L CARBON DIOXIDE (test code = 2206) 26 MEQ/L CALCIUM (test code = 2209) 10.4 MG/DL PROTEIN, TOTAL (test code = 2229) 7.4 G/DL ALBUMIN (test code = 2201) 4.1 G/DL CALC GLOBULIN (test code = 2240) 3.3 G/DL CALC A/G RATIO (test code = 2234) 1.2 RATIO BILIRUBIN, TOTAL (test code = 2207) 0.5 MG/DL ALKALINE PHOSPHATASE (test code = 2204) 75 U/L AST (test code = 2218) 22 U/L ALT (test code = 2219) 19 U/L LIPID [id number] 00:00:00* Test Item Value Reference Range Interpretation Comme nts CHOLESTEROL (test code = 2210) 199 MG/DL TRIGLYCERIDES (test code = 2232) 164 MG/DL HDL CHOLESTEROL (test code = 2220) 45 MG/DL CALC LDL CHOL (test code = 2237) 126 MG/DL RISK RATIO LDL/HDL (test cod e = 2238) 2.80 RATIO LIPID [id number] 00:00:00* Test Item Value Reference Range Interpretation Comme nts CHOLESTEROL (test code = 2210) 199 MG/DL TRIGLYCERIDES (test code = 2232) 164 MG/DL HDL CHOLESTEROL (test code = 2220) 45 MG/DL CALC LDL CHOL (test code = 2237) 126 MG/DL RISK RATIO LDL/HDL (test cod e = 2238) 2.80 RATIO COMPREHENSIVE METABOLIC [id number] 00:00:00* Test Item Value Reference Range Interpretation Comme nts GLUCOSE (test code = 2217) 234 MG/DL BUN (test code = 2208) 18 MG/DL CREATININE (test code = 2214) 0.61 MG/DL eGFR AMER. (test cod e = 37774) 108 ML/MIN/1.73 eGFR NON- AMER. (test code = 44240) 93 ML/MIN/1.73 CALC BUN/CREAT (test code = 2235) 30 RATIO SODIUM (test code = 2231) 144 MEQ/L POTASSIUM (test code = 2228) 4.5 MEQ/L CHLORIDE (test code = 2215) 104 MEQ/L CARBON DIOXIDE (test code = 2206) 26 MEQ/L CALCIUM (test code = 2209) 10.4 MG/DL PROTEIN, TOTAL (test code = 2229) 7.4 G/DL ALBUMIN (test code = 2201) 4.1 G/DL CALC GLOBULIN (test code = 2240) 3.3 G/DL CALC A/G RATIO (test code = 2234) 1.2 RATIO BILIRUBIN, TOTAL (test code = 2207) 0.5 MG/DL ALKALINE PHOSPHATASE (test code = 2204) 75 U/L AST (test code = 2218) 22 U/L ALT (test code = 2219) 19 U/L LIPID [id number] 00:00:00* Test Item Value Reference Range Interpretation Comme nts CHOLESTEROL (test code = 2210) 199 MG/DL TRIGLYCERIDES (test code = 2232) 164 MG/DL HDL CHOLESTEROL (test code = 2220) 45 MG/DL CALC LDL CHOL (test code = 2237) 126 MG/DL RISK RATIO LDL/HDL (test cod e = 2238) 2.80 RATIO COMPREHENSIVE METABOLIC [id number] 00:00:00* Test Item Value Reference Range Interpretation Comme nts GLUCOSE (test code = 2217) 234 MG/DL BUN (test code = 2208) 18 MG/DL CREATININE (test code = 2214) 0.61 MG/DL eGFR AMER. (test cod e = 57647) 108 ML/MIN/1.73 eGFR NON- AMER. (test code = 45440) 93 ML/MIN/1.73 CALC BUN/CREAT (test code = 2235) 30 RATIO SODIUM (test code = 2231) 144 MEQ/L POTASSIUM (test code = 2228) 4.5 MEQ/L CHLORIDE (test code = 2215) 104 MEQ/L CARBON DIOXIDE (test code = 2206) 26 MEQ/L CALCIUM (test code = 2209) 10.4 MG/DL PROTEIN, TOTAL (test code = 2229) 7.4 G/DL ALBUMIN (test code = 2201) 4.1 G/DL CALC GLOBULIN (test code = 2240) 3.3 G/DL CALC A/G RATIO (test code = 2234) 1.2 RATIO BILIRUBIN, TOTAL (test code = 2207) 0.5 MG/DL ALKALINE PHOSPHATASE (test code = 2204) 75 U/L AST (test code = 2218) 22 U/L ALT (test code = 2219) 19 U/L COMPREHENSIVE METABOLIC [id number] 00:00:00* Test Item Value Reference Range Interpretation Comme nts GLUCOSE (test code = 2217) 234 MG/DL BUN (test code = 2208) 18 MG/DL CREATININE (test code = 2214) 0.61 MG/DL eGFR AMER. (test cod e = 78713) 108 ML/MIN/1.73 eGFR NON- AMER. (test code = 22906) 93 ML/MIN/1.73 CALC BUN/CREAT (test code = 2235) 30 RATIO SODIUM (test code = 2231) 144 MEQ/L POTASSIUM (test code = 2228) 4.5 MEQ/L CHLORIDE (test code = 2215) 104 MEQ/L CARBON DIOXIDE (test code = 2206) 26 MEQ/L CALCIUM (test code = 2209) 10.4 MG/DL PROTEIN, TOTAL (test code = 2229) 7.4 G/DL ALBUMIN (test code = 2201) 4.1 G/DL CALC GLOBULIN (test code = 2240) 3.3 G/DL CALC A/G RATIO (test code = 2234) 1.2 RATIO BILIRUBIN, TOTAL (test code = 2207) 0.5 MG/DL ALKALINE PHOSPHATASE (test code = 2204) 75 U/L AST (test code = 2218) 22 U/L ALT (test code = 2219) 19 U/L LIPID [id number] 00:00:00* Test Item Value Reference Range Interpretation Comme nts CHOLESTEROL (test code = 2210) 199 MG/DL TRIGLYCERIDES (test code = 2232) 164 MG/DL HDL CHOLESTEROL (test code = 2220) 45 MG/DL CALC LDL CHOL (test code = 2237) 126 MG/DL RISK RATIO LDL/HDL (test cod e = 2238) 2.80 RATIO LIPID [id number] 00:00:00* Test Item Value Reference Range Interpretation Comme nts CHOLESTEROL (test code = 2210) 199 MG/DL TRIGLYCERIDES (test code = 2232) 164 MG/DL HDL CHOLESTEROL (test code = 2220) 45 MG/DL CALC LDL CHOL (test code = 2237) 126 MG/DL RISK RATIO LDL/HDL (test cod e = 2238) 2.80 RATIO COMPREHENSIVE METABOLIC [id number] 00:00:00* Test Item Value Reference Range Interpretation Comme nts GLUCOSE (test code = 2217) 234 MG/DL BUN (test code = 2208) 18 MG/DL CREATININE (test code = 2214) 0.61 MG/DL eGFR AMER. (test cod e = 20934) 108 ML/MIN/1.73 eGFR NON- AMER. (test code = 18060) 93 ML/MIN/1.73 CALC BUN/CREAT (test code = 2235) 30 RATIO SODIUM (test code = 2231) 144 MEQ/L POTASSIUM (test code = 2228) 4.5 MEQ/L CHLORIDE (test code = 2215) 104 MEQ/L CARBON DIOXIDE (test code = 2206) 26 MEQ/L CALCIUM (test code = 2209) 10.4 MG/DL PROTEIN, TOTAL (test code = 2229) 7.4 G/DL ALBUMIN (test code = 2201) 4.1 G/DL CALC GLOBULIN (test code = 2240) 3.3 G/DL CALC A/G RATIO (test code = 2234) 1.2 RATIO BILIRUBIN, TOTAL (test code = 2207) 0.5 MG/DL ALKALINE PHOSPHATASE (test code = 2204) 75 U/L AST (test code = 2218) 22 U/L ALT (test code = 2219) 19 U/L COMPREHENSIVE METABOLIC [id number] 00:00:00* Test Item Value Reference Range Interpretation Comme nts GLUCOSE (test code = 2217) 234 MG/DL BUN (test code = 2208) 18 MG/DL CREATININE (test code = 2214) 0.61 MG/DL eGFR AMER. (test cod e = 31507) 108 ML/MIN/1.73 eGFR NON- AMER. (test code = 51486) 93 ML/MIN/1.73 CALC BUN/CREAT (test code = 2235) 30 RATIO SODIUM (test code = 2231) 144 MEQ/L POTASSIUM (test code = 2228) 4.5 MEQ/L CHLORIDE (test code = 2215) 104 MEQ/L CARBON DIOXIDE (test code = 2206) 26 MEQ/L CALCIUM (test code = 2209) 10.4 MG/DL PROTEIN, TOTAL (test code = 2229) 7.4 G/DL ALBUMIN (test code = 2201) 4.1 G/DL CALC GLOBULIN (test code = 2240) 3.3 G/DL CALC A/G RATIO (test code = 2234) 1.2 RATIO BILIRUBIN, TOTAL (test code = 2207) 0.5 MG/DL ALKALINE PHOSPHATASE (test code = 2204) 75 U/L AST (test code = 2218) 22 U/L ALT (test code = 2219) 19 U/L LIPID [id number] 00:00:00* Test Item Value Reference Range Interpretation Comme nts CHOLESTEROL (test code = 2210) 199 MG/DL TRIGLYCERIDES (test code = 2232) 164 MG/DL HDL CHOLESTEROL (test code = 2220) 45 MG/DL CALC LDL CHOL (test code = 2237) 126 MG/DL RISK RATIO LDL/HDL (test cod e = 2238) 2.80 RATIO LIPID [id number] 00:00:00* Test Item Value Reference Range Interpretation Comme nts CHOLESTEROL (test code = 2210) 199 MG/DL TRIGLYCERIDES (test code = 2232) 164 MG/DL HDL CHOLESTEROL (test code = 2220) 45 MG/DL CALC LDL CHOL (test code = 2237) 126 MG/DL RISK RATIO LDL/HDL (test cod e = 2238) 2.80 RATIO COMPREHENSIVE METABOLIC [id number] 00:00:00* Test Item Value Reference Range Interpretation Comme nts GLUCOSE (test code = 2217) 234 MG/DL BUN (test code = 2208) 18 MG/DL CREATININE (test code = 2214) 0.61 MG/DL eGFR AMER. (test cod e = 28817) 108 ML/MIN/1.73 eGFR NON- AMER. (test code = 60110) 93 ML/MIN/1.73 CALC BUN/CREAT (test code = 2235) 30 RATIO SODIUM (test code = 2231) 144 MEQ/L POTASSIUM (test code = 2228) 4.5 MEQ/L CHLORIDE (test code = 2215) 104 MEQ/L CARBON DIOXIDE (test code = 2206) 26 MEQ/L CALCIUM (test code = 2209) 10.4 MG/DL PROTEIN, TOTAL (test code = 2229) 7.4 G/DL ALBUMIN (test code = 2201) 4.1 G/DL CALC GLOBULIN (test code = 2240) 3.3 G/DL CALC A/G RATIO (test code = 2234) 1.2 RATIO BILIRUBIN, TOTAL (test code = 2207) 0.5 MG/DL ALKALINE PHOSPHATASE (test code = 2204) 75 U/L AST (test code = 2218) 22 U/L ALT (test code = 2219) 19 U/L COMPREHENSIVE METABOLIC [id number] 00:00:00* Test Item Value Reference Range Interpretation Comme nts GLUCOSE (test code = 2217) 234 MG/DL BUN (test code = 2208) 18 MG/DL CREATININE (test code = 2214) 0.61 MG/DL eGFR AMER. (test cod e = 12895) 108 ML/MIN/1.73 eGFR NON- AMER. (test code = 49886) 93 ML/MIN/1.73 CALC BUN/CREAT (test code = 2235) 30 RATIO SODIUM (test code = 2231) 144 MEQ/L POTASSIUM (test code = 2228) 4.5 MEQ/L CHLORIDE (test code = 2215) 104 MEQ/L CARBON DIOXIDE (test code = 2206) 26 MEQ/L CALCIUM (test code = 2209) 10.4 MG/DL PROTEIN, TOTAL (test code = 2229) 7.4 G/DL ALBUMIN (test code = 2201) 4.1 G/DL CALC GLOBULIN (test code = 2240) 3.3 G/DL CALC A/G RATIO (test code = 2234) 1.2 RATIO BILIRUBIN, TOTAL (test code = 2207) 0.5 MG/DL ALKALINE PHOSPHATASE (test code = 2204) 75 U/L AST (test code = 2218) 22 U/L ALT (test code = 2219) 19 U/L LIPID [id number] 00:00:00* Test Item Value Reference Range Interpretation Comme nts CHOLESTEROL (test code = 2210) 199 MG/DL TRIGLYCERIDES (test code = 2232) 164 MG/DL HDL CHOLESTEROL (test code = 2220) 45 MG/DL CALC LDL CHOL (test code = 2237) 126 MG/DL RISK RATIO LDL/HDL (test cod e = 2238) 2.80 RATIO LIPID [id number] 00:00:00* Test Item Value Reference Range Interpretation Comme nts CHOLESTEROL (test code = 2210) 199 MG/DL TRIGLYCERIDES (test code = 2232) 164 MG/DL HDL CHOLESTEROL (test code = 2220) 45 MG/DL CALC LDL CHOL (test code = 2237) 126 MG/DL RISK RATIO LDL/HDL (test cod e = 2238) 2.80 RATIO COMPREHENSIVE METABOLIC [id number] 00:00:00* Test Item Value Reference Range Interpretation Comme nts GLUCOSE (test code = 2217) 234 MG/DL BUN (test code = 2208) 18 MG/DL CREATININE (test code = 2214) 0.61 MG/DL eGFR AMER. (test cod e = 95188) 108 ML/MIN/1.73 eGFR NON- AMER. (test code = 98947) 93 ML/MIN/1.73 CALC BUN/CREAT (test code = 2235) 30 RATIO SODIUM (test code = 2231) 144 MEQ/L POTASSIUM (test code = 2228) 4.5 MEQ/L CHLORIDE (test code = 2215) 104 MEQ/L CARBON DIOXIDE (test code = 2206) 26 MEQ/L CALCIUM (test code = 2209) 10.4 MG/DL PROTEIN, TOTAL (test code = 2229) 7.4 G/DL ALBUMIN (test code = 2201) 4.1 G/DL CALC GLOBULIN (test code = 2240) 3.3 G/DL CALC A/G RATIO (test code = 2234) 1.2 RATIO BILIRUBIN, TOTAL (test code = 2207) 0.5 MG/DL ALKALINE PHOSPHATASE (test code = 2204) 75 U/L AST (test code = 2218) 22 U/L ALT (test code = 2219) 19 U/L LIPID [id number] 00:00:00* Test Item Value Reference Range Interpretation Comme nts CHOLESTEROL (test code = 2210) 199 MG/DL TRIGLYCERIDES (test code = 2232) 164 MG/DL HDL CHOLESTEROL (test code = 2220) 45 MG/DL CALC LDL CHOL (test code = 2237) 126 MG/DL RISK RATIO LDL/HDL (test cod e = 2238) 2.80 RATIO COMPREHENSIVE METABOLIC [id number] 00:00:00* Test Item Value Reference Range Interpretation Comme nts GLUCOSE (test code = 2217) 234 MG/DL BUN (test code = 2208) 18 MG/DL CREATININE (test code = 2214) 0.61 MG/DL eGFR AMER. (test cod e = 93079) 108 ML/MIN/1.73 eGFR NON- AMER. (test code = 03564) 93 ML/MIN/1.73 CALC BUN/CREAT (test code = 2235) 30 RATIO SODIUM (test code = 2231) 144 MEQ/L POTASSIUM (test code = 2228) 4.5 MEQ/L CHLORIDE (test code = 2215) 104 MEQ/L CARBON DIOXIDE (test code = 2206) 26 MEQ/L CALCIUM (test code = 2209) 10.4 MG/DL PROTEIN, TOTAL (test code = 2229) 7.4 G/DL ALBUMIN (test code = 2201) 4.1 G/DL CALC GLOBULIN (test code = 2240) 3.3 G/DL CALC A/G RATIO (test code = 2234) 1.2 RATIO BILIRUBIN, TOTAL (test code = 2207) 0.5 MG/DL ALKALINE PHOSPHATASE (test code = 2204) 75 U/L AST (test code = 2218) 22 U/L ALT (test code = 2219) 19 U/L Toney Cowan ZurdoLIPID [id number] 00:00:00* Test Item Value Reference Range Interpretation Comme nts CHOLESTEROL (test code = 2210) 199 MG/DL TRIGLYCERIDES (test code = 2232) 164 MG/DL HDL CHOLESTEROL (test code = 2220) 45 MG/DL CALC LDL CHOL (test code = 2237) 126 MG/DL RISK RATIO LDL/HDL (test cod e = 2238) 2.80 RATIO Toney Camryn AustinCBC W/AUTO [id number] 00:00:00* Test Item Value Reference Range Interpretation Comme nts WBC (test code = 1001) 5.7 K/UL RBC (test code = 1002) 4.68 M/UL HEMOGLOBIN (test code = 1003) 13.5 G/DL HEMATOCRIT (test code = 1004) 39.8 % MCV (test code = 1005) 85.0 fL MCH (test code = 1006) 28.8 PG MCHC (test code = 1007) 33.9 G/DL RDW (test code = 1038) 13.6 % NEUTROPHILS (test code = 1008) 57.9 % LYMPHOCYTES (test code = 1010) 29.6 % MONOCYTES (test code = 1011) 8.4 % EOSINOPHILS (test code = 1012) 3.0 % BASOPHILS (test code = 1013) 1.1 % PLATELET COUNT (test code = 1015) 239 K/UL Toney Cowan AustinLIPID [id number] 00:00:00* Test Item Value Reference Range Interpretation Comme nts CHOLESTEROL (test code = 2210) 240 MG/DL TRIGLYCERIDES (test code = 2232) 137 MG/DL HDL CHOLESTEROL (test code = 2220) 48 MG/DL CALC LDL CHOL (test code = 2237) 165 MG/DL RISK RATIO LDL/HDL (test cod e = 2238) 3.43 RATIO Toney Cowan AustinMICROALBUMIN/CREATININE, RANDOM AND [id number] 00:00:00* Test Item Value Reference Range Interpretation Comme katty CREATININE, URINE, CONC. (te st code = 2072) 146.0 MG/DL ALBUMIN, URINE, RANDOM (test code = 99182) 1.0 MG/DL CALC ALBUMIN/CREAT, RND (baljinder t code = 29912) 7 MG/G Toney Cowan AustinHEMOGLOBIN [id number] 00:00:00* Test Item Value Reference Range Interpretation Comme katty HEMOGLOBIN A1c (test code = 97030) 9.3 % Toney Cowan AustinHEMOGLOBIN [id number] 00:00:00* Test Item Value Reference Range Interpretation Comme nts HEMOGLOBIN A1c (test code = 53943) 9.3 % HEMOGLOBIN [id number] 00:00:00* Test Item Value Reference Range Interpretation Comme nts HEMOGLOBIN A1c (test code = 87826) 9.3 % COMPREHENSIVE METABOLIC [id number] 00:00:00* Test Item Value Reference Range Interpretation Comme katty GLUCOSE (test code = 2217) 189 MG/DL BUN (test code = 2208) 15 MG/DL CREATININE (test code = 2214) 0.55 MG/DL eGFR AMER. (test cod e = 51385) 112 ML/MIN/1.73 eGFR NON- AMER. (test code = 62806) 96 ML/MIN/1.73 CALC BUN/CREAT (test code = 2235) 27 RATIO SODIUM (test code = 2231) 142 MEQ/L POTASSIUM (test code = 2228) 4.6 MEQ/L CHLORIDE (test code = 2215) 103 MEQ/L CARBON DIOXIDE (test code = 2206) 26 MEQ/L CALCIUM (test code = 2209) 9.6 MG/DL PROTEIN, TOTAL (test code = 2229) 7.5 G/DL ALBUMIN (test code = 2201) 4.3 G/DL CALC GLOBULIN (test code = 2240) 3.2 G/DL CALC A/G RATIO (test code = 2234) 1.3 RATIO BILIRUBIN, TOTAL (test code = 2207) 0.5 MG/DL ALKALINE PHOSPHATASE (test code = 2204) 92 U/L AST (test code = 2218) 22 U/L ALT (test code = 2219) 21 U/L CBC W/AUTO [id number] 00:00:00* Test Item Value Reference Range Interpretation Comme nts WBC (test code = 1001) 5.7 K/UL RBC (test code = 1002) 4.68 M/UL HEMOGLOBIN (test code = 1003) 13.5 G/DL HEMATOCRIT (test code = 1004) 39.8 % MCV (test code = 1005) 85.0 fL MCH (test code = 1006) 28.8 PG MCHC (test code = 1007) 33.9 G/DL RDW (test code = 1038) 13.6 % NEUTROPHILS (test code = 1008) 57.9 % LYMPHOCYTES (test code = 1010) 29.6 % MONOCYTES (test code = 1011) 8.4 % EOSINOPHILS (test code = 1012) 3.0 % BASOPHILS (test code = 1013) 1.1 % PLATELET COUNT (test code = 1015) 239 K/UL CBC W/AUTO [id number] 00:00:00* Test Item Value Reference Range Interpretation Comme nts WBC (test code = 1001) 5.7 K/UL RBC (test code = 1002) 4.68 M/UL HEMOGLOBIN (test code = 1003) 13.5 G/DL HEMATOCRIT (test code = 1004) 39.8 % MCV (test code = 1005) 85.0 fL MCH (test code = 1006) 28.8 PG MCHC (test code = 1007) 33.9 G/DL RDW (test code = 1038) 13.6 % NEUTROPHILS (test code = 1008) 57.9 % LYMPHOCYTES (test code = 1010) 29.6 % MONOCYTES (test code = 1011) 8.4 % EOSINOPHILS (test code = 1012) 3.0 % BASOPHILS (test code = 1013) 1.1 % PLATELET COUNT (test code = 1015) 239 K/UL LIPID [id number] 00:00:00* Test Item Value Reference Range Interpretation Comme nts CHOLESTEROL (test code = 2210) 240 MG/DL TRIGLYCERIDES (test code = 2232) 137 MG/DL HDL CHOLESTEROL (test code = 2220) 48 MG/DL CALC LDL CHOL (test code = 2237) 165 MG/DL RISK RATIO LDL/HDL (test cod e = 2238) 3.43 RATIO MICROALBUMIN/CREATININE, RANDOM AND [id number] 00:00:00* Test Item Value Reference Range Interpretation Comme nts CREATININE, URINE, CONC. (te st code = 2072) 146.0 MG/DL ALBUMIN, URINE, RANDOM (test code = 04145) 1.0 MG/DL CALC ALBUMIN/CREAT, RND (baljinder t code = 74122) 7 MG/G HEMOGLOBIN [id number] 00:00:00* Test Item Value Reference Range Interpretation Comme nts HEMOGLOBIN A1c (test code = 39258) 9.3 % HEMOGLOBIN [id number] 00:00:00* Test Item Value Reference Range Interpretation Comme nts HEMOGLOBIN A1c (test code = 69931) 9.3 % HEMOGLOBIN [id number] 00:00:00* Test Item Value Reference Range Interpretation Comme nts HEMOGLOBIN A1c (test code = 11475) 9.3 % COMPREHENSIVE METABOLIC [id number] 00:00:00* Test Item Value Reference Range Interpretation Comme nts GLUCOSE (test code = 2217) 189 MG/DL BUN (test code = 2208) 15 MG/DL CREATININE (test code = 2214) 0.55 MG/DL eGFR AMER. (test cod e = 19051) 112 ML/MIN/1.73 eGFR NON- AMER. (test code = 90704) 96 ML/MIN/1.73 CALC BUN/CREAT (test code = 2235) 27 RATIO SODIUM (test code = 2231) 142 MEQ/L POTASSIUM (test code = 2228) 4.6 MEQ/L CHLORIDE (test code = 2215) 103 MEQ/L CARBON DIOXIDE (test code = 2206) 26 MEQ/L CALCIUM (test code = 2209) 9.6 MG/DL PROTEIN, TOTAL (test code = 2229) 7.5 G/DL ALBUMIN (test code = 2201) 4.3 G/DL CALC GLOBULIN (test code = 2240) 3.2 G/DL CALC A/G RATIO (test code = 2234) 1.3 RATIO BILIRUBIN, TOTAL (test code = 2207) 0.5 MG/DL ALKALINE PHOSPHATASE (test code = 2204) 92 U/L AST (test code = 2218) 22 U/L ALT (test code = 2219) 21 U/L COMPREHENSIVE METABOLIC [id number] 00:00:00* Test Item Value Reference Range Interpretation Comme nts GLUCOSE (test code = 2217) 189 MG/DL BUN (test code = 2208) 15 MG/DL CREATININE (test code = 2214) 0.55 MG/DL eGFR AMER. (test cod e = 19133) 112 ML/MIN/1.73 eGFR NON- AMER. (test code = 14482) 96 ML/MIN/1.73 CALC BUN/CREAT (test code = 2235) 27 RATIO SODIUM (test code = 2231) 142 MEQ/L POTASSIUM (test code = 2228) 4.6 MEQ/L CHLORIDE (test code = 2215) 103 MEQ/L CARBON DIOXIDE (test code = 2206) 26 MEQ/L CALCIUM (test code = 2209) 9.6 MG/DL PROTEIN, TOTAL (test code = 2229) 7.5 G/DL ALBUMIN (test code = 2201) 4.3 G/DL CALC GLOBULIN (test code = 2240) 3.2 G/DL CALC A/G RATIO (test code = 2234) 1.3 RATIO BILIRUBIN, TOTAL (test code = 2207) 0.5 MG/DL ALKALINE PHOSPHATASE (test code = 2204) 92 U/L AST (test code = 2218) 22 U/L ALT (test code = 2219) 21 U/L CBC W/AUTO [id number] 00:00:00* Test Item Value Reference Range Interpretation Comme nts WBC (test code = 1001) 5.7 K/UL RBC (test code = 1002) 4.68 M/UL HEMOGLOBIN (test code = 1003) 13.5 G/DL HEMATOCRIT (test code = 1004) 39.8 % MCV (test code = 1005) 85.0 fL MCH (test code = 1006) 28.8 PG MCHC (test code = 1007) 33.9 G/DL RDW (test code = 1038) 13.6 % NEUTROPHILS (test code = 1008) 57.9 % LYMPHOCYTES (test code = 1010) 29.6 % MONOCYTES (test code = 1011) 8.4 % EOSINOPHILS (test code = 1012) 3.0 % BASOPHILS (test code = 1013) 1.1 % PLATELET COUNT (test code = 1015) 239 K/UL CBC W/AUTO [id number] 00:00:00* Test Item Value Reference Range Interpretation Comme nts WBC (test code = 1001) 5.7 K/UL RBC (test code = 1002) 4.68 M/UL HEMOGLOBIN (test code = 1003) 13.5 G/DL HEMATOCRIT (test code = 1004) 39.8 % MCV (test code = 1005) 85.0 fL MCH (test code = 1006) 28.8 PG MCHC (test code = 1007) 33.9 G/DL RDW (test code = 1038) 13.6 % NEUTROPHILS (test code = 1008) 57.9 % LYMPHOCYTES (test code = 1010) 29.6 % MONOCYTES (test code = 1011) 8.4 % EOSINOPHILS (test code = 1012) 3.0 % BASOPHILS (test code = 1013) 1.1 % PLATELET COUNT (test code = 1015) 239 K/UL CBC W/AUTO [id number] 00:00:00* Test Item Value Reference Range Interpretation Comme nts WBC (test code = 1001) 5.7 K/UL RBC (test code = 1002) 4.68 M/UL HEMOGLOBIN (test code = 1003) 13.5 G/DL HEMATOCRIT (test code = 1004) 39.8 % MCV (test code = 1005) 85.0 fL MCH (test code = 1006) 28.8 PG MCHC (test code = 1007) 33.9 G/DL RDW (test code = 1038) 13.6 % NEUTROPHILS (test code = 1008) 57.9 % LYMPHOCYTES (test code = 1010) 29.6 % MONOCYTES (test code = 1011) 8.4 % EOSINOPHILS (test code = 1012) 3.0 % BASOPHILS (test code = 1013) 1.1 % PLATELET COUNT (test code = 1015) 239 K/UL LIPID [id number] 00:00:00* Test Item Value Reference Range Interpretation Comme nts CHOLESTEROL (test code = 2210) 240 MG/DL TRIGLYCERIDES (test code = 2232) 137 MG/DL HDL CHOLESTEROL (test code = 2220) 48 MG/DL CALC LDL CHOL (test code = 2237) 165 MG/DL RISK RATIO LDL/HDL (test cod e = 2238) 3.43 RATIO LIPID [id number] 00:00:00* Test Item Value Reference Range Interpretation Comme nts CHOLESTEROL (test code = 2210) 240 MG/DL TRIGLYCERIDES (test code = 2232) 137 MG/DL HDL CHOLESTEROL (test code = 2220) 48 MG/DL CALC LDL CHOL (test code = 2237) 165 MG/DL RISK RATIO LDL/HDL (test cod e = 2238) 3.43 RATIO MICROALBUMIN/CREATININE, RANDOM AND [id number] 00:00:00* Test Item Value Reference Range Interpretation Comme nts CREATININE, URINE, CONC. (te st code = 2072) 146.0 MG/DL ALBUMIN, URINE, RANDOM (test code = 19876) 1.0 MG/DL CALC ALBUMIN/CREAT, RND (baljinder t code = 21595) 7 MG/G MICROALBUMIN/CREATININE, RANDOM AND [id number] 00:00:00* Test Item Value Reference Range Interpretation Comme nts CREATININE, URINE, CONC. (te st code = 2072) 146.0 MG/DL ALBUMIN, URINE, RANDOM (test code = 68027) 1.0 MG/DL CALC ALBUMIN/CREAT, RND (baljinder t code = 39967) 7 MG/G HEMOGLOBIN [id number] 00:00:00* Test Item Value Reference Range Interpretation Comme nts HEMOGLOBIN A1c (test code = 99212) 9.3 % HEMOGLOBIN [id number] 00:00:00* Test Item Value Reference Range Interpretation Comme nts HEMOGLOBIN A1c (test code = 33644) 9.3 % HEMOGLOBIN [id number] 00:00:00* Test Item Value Reference Range Interpretation Comme nts HEMOGLOBIN A1c (test code = 75533) 9.3 % COMPREHENSIVE METABOLIC [id number] 00:00:00* Test Item Value Reference Range Interpretation Comme nts GLUCOSE (test code = 2217) 189 MG/DL BUN (test code = 2208) 15 MG/DL CREATININE (test code = 2214) 0.55 MG/DL eGFR AMER. (test cod e = 42533) 112 ML/MIN/1.73 eGFR NON- AMER. (test code = 31309) 96 ML/MIN/1.73 CALC BUN/CREAT (test code = 2235) 27 RATIO SODIUM (test code = 2231) 142 MEQ/L POTASSIUM (test code = 2228) 4.6 MEQ/L CHLORIDE (test code = 2215) 103 MEQ/L CARBON DIOXIDE (test code = 2206) 26 MEQ/L CALCIUM (test code = 2209) 9.6 MG/DL PROTEIN, TOTAL (test code = 2229) 7.5 G/DL ALBUMIN (test code = 2201) 4.3 G/DL CALC GLOBULIN (test code = 2240) 3.2 G/DL CALC A/G RATIO (test code = 2234) 1.3 RATIO BILIRUBIN, TOTAL (test code = 2207) 0.5 MG/DL ALKALINE PHOSPHATASE (test code = 2204) 92 U/L AST (test code = 2218) 22 U/L ALT (test code = 2219) 21 U/L COMPREHENSIVE METABOLIC [id number] 00:00:00* Test Item Value Reference Range Interpretation Comme nts GLUCOSE (test code = 2217) 189 MG/DL BUN (test code = 2208) 15 MG/DL CREATININE (test code = 2214) 0.55 MG/DL eGFR AMER. (test cod e = 30219) 112 ML/MIN/1.73 eGFR NON- AMER. (test code = 55835) 96 ML/MIN/1.73 CALC BUN/CREAT (test code = 2235) 27 RATIO SODIUM (test code = 2231) 142 MEQ/L POTASSIUM (test code = 2228) 4.6 MEQ/L CHLORIDE (test code = 2215) 103 MEQ/L CARBON DIOXIDE (test code = 2206) 26 MEQ/L CALCIUM (test code = 2209) 9.6 MG/DL PROTEIN, TOTAL (test code = 2229) 7.5 G/DL ALBUMIN (test code = 2201) 4.3 G/DL CALC GLOBULIN (test code = 2240) 3.2 G/DL CALC A/G RATIO (test code = 2234) 1.3 RATIO BILIRUBIN, TOTAL (test code = 2207) 0.5 MG/DL ALKALINE PHOSPHATASE (test code = 2204) 92 U/L AST (test code = 2218) 22 U/L ALT (test code = 2219) 21 U/L CBC W/AUTO [id number] 00:00:00* Test Item Value Reference Range Interpretation Comme nts WBC (test code = 1001) 5.7 K/UL RBC (test code = 1002) 4.68 M/UL HEMOGLOBIN (test code = 1003) 13.5 G/DL HEMATOCRIT (test code = 1004) 39.8 % MCV (test code = 1005) 85.0 fL MCH (test code = 1006) 28.8 PG MCHC (test code = 1007) 33.9 G/DL RDW (test code = 1038) 13.6 % NEUTROPHILS (test code = 1008) 57.9 % LYMPHOCYTES (test code = 1010) 29.6 % MONOCYTES (test code = 1011) 8.4 % EOSINOPHILS (test code = 1012) 3.0 % BASOPHILS (test code = 1013) 1.1 % PLATELET COUNT (test code = 1015) 239 K/UL CBC W/AUTO [id number] 00:00:00* Test Item Value Reference Range Interpretation Comme nts WBC (test code = 1001) 5.7 K/UL RBC (test code = 1002) 4.68 M/UL HEMOGLOBIN (test code = 1003) 13.5 G/DL HEMATOCRIT (test code = 1004) 39.8 % MCV (test code = 1005) 85.0 fL MCH (test code = 1006) 28.8 PG MCHC (test code = 1007) 33.9 G/DL RDW (test code = 1038) 13.6 % NEUTROPHILS (test code = 1008) 57.9 % LYMPHOCYTES (test code = 1010) 29.6 % MONOCYTES (test code = 1011) 8.4 % EOSINOPHILS (test code = 1012) 3.0 % BASOPHILS (test code = 1013) 1.1 % PLATELET COUNT (test code = 1015) 239 K/UL CBC W/AUTO [id number] 00:00:00* Test Item Value Reference Range Interpretation Comme nts WBC (test code = 1001) 5.7 K/UL RBC (test code = 1002) 4.68 M/UL HEMOGLOBIN (test code = 1003) 13.5 G/DL HEMATOCRIT (test code = 1004) 39.8 % MCV (test code = 1005) 85.0 fL MCH (test code = 1006) 28.8 PG MCHC (test code = 1007) 33.9 G/DL RDW (test code = 1038) 13.6 % NEUTROPHILS (test code = 1008) 57.9 % LYMPHOCYTES (test code = 1010) 29.6 % MONOCYTES (test code = 1011) 8.4 % EOSINOPHILS (test code = 1012) 3.0 % BASOPHILS (test code = 1013) 1.1 % PLATELET COUNT (test code = 1015) 239 K/UL LIPID [id number] 00:00:00* Test Item Value Reference Range Interpretation Comme nts CHOLESTEROL (test code = 2210) 240 MG/DL TRIGLYCERIDES (test code = 2232) 137 MG/DL HDL CHOLESTEROL (test code = 2220) 48 MG/DL CALC LDL CHOL (test code = 2237) 165 MG/DL RISK RATIO LDL/HDL (test cod e = 2238) 3.43 RATIO LIPID [id number] 00:00:00* Test Item Value Reference Range Interpretation Comme nts CHOLESTEROL (test code = 2210) 240 MG/DL TRIGLYCERIDES (test code = 2232) 137 MG/DL HDL CHOLESTEROL (test code = 2220) 48 MG/DL CALC LDL CHOL (test code = 2237) 165 MG/DL RISK RATIO LDL/HDL (test cod e = 2238) 3.43 RATIO MICROALBUMIN/CREATININE, RANDOM AND [id number] 00:00:00* Test Item Value Reference Range Interpretation Comme nts CREATININE, URINE, CONC. (te st code = 2071) 146.0 MG/DL ALBUMIN, URINE, RANDOM (test code = 92029) 1.0 MG/DL CALC ALBUMIN/CREAT, RND (baljinder t code = 65693) 7 MG/G MICROALBUMIN/CREATININE, RANDOM AND [id number] 00:00:00* Test Item Value Reference Range Interpretation Comme nts CREATININE, URINE, CONC. (te st code = 2071) 146.0 MG/DL ALBUMIN, URINE, RANDOM (test code = 64006) 1.0 MG/DL CALC ALBUMIN/CREAT, RND (baljinder t code = 74798) 7 MG/G HEMOGLOBIN [id number] 00:00:00* Test Item Value Reference Range Interpretation Comme nts HEMOGLOBIN A1c (test code = 14364) 9.3 % HEMOGLOBIN [id number] 00:00:00* Test Item Value Reference Range Interpretation Comme nts HEMOGLOBIN A1c (test code = 77391) 9.3 % HEMOGLOBIN [id number] 00:00:00* Test Item Value Reference Range Interpretation Comme nts HEMOGLOBIN A1c (test code = 11121) 9.3 % COMPREHENSIVE METABOLIC [id number] 00:00:00* Test Item Value Reference Range Interpretation Comme nts GLUCOSE (test code = 2217) 189 MG/DL BUN (test code = 2208) 15 MG/DL CREATININE (test code = 2214) 0.55 MG/DL eGFR AMER. (test cod e = 00035) 112 ML/MIN/1.73 eGFR NON- AMER. (test code = 53651) 96 ML/MIN/1.73 CALC BUN/CREAT (test code = 2235) 27 RATIO SODIUM (test code = 2231) 142 MEQ/L POTASSIUM (test code = 2228) 4.6 MEQ/L CHLORIDE (test code = 2215) 103 MEQ/L CARBON DIOXIDE (test code = 2206) 26 MEQ/L CALCIUM (test code = 2209) 9.6 MG/DL PROTEIN, TOTAL (test code = 2229) 7.5 G/DL ALBUMIN (test code = 2201) 4.3 G/DL CALC GLOBULIN (test code = 2240) 3.2 G/DL CALC A/G RATIO (test code = 2234) 1.3 RATIO BILIRUBIN, TOTAL (test code = 2207) 0.5 MG/DL ALKALINE PHOSPHATASE (test code = 2204) 92 U/L AST (test code = 2218) 22 U/L ALT (test code = 2219) 21 U/L COMPREHENSIVE METABOLIC [id number] 00:00:00* Test Item Value Reference Range Interpretation Comme nts GLUCOSE (test code = 2217) 189 MG/DL BUN (test code = 2208) 15 MG/DL CREATININE (test code = 2214) 0.55 MG/DL eGFR AMER. (test cod e = 04539) 112 ML/MIN/1.73 eGFR NON- AMER. (test code = 45236) 96 ML/MIN/1.73 CALC BUN/CREAT (test code = 2235) 27 RATIO SODIUM (test code = 2231) 142 MEQ/L POTASSIUM (test code = 2228) 4.6 MEQ/L CHLORIDE (test code = 2215) 103 MEQ/L CARBON DIOXIDE (test code = 2206) 26 MEQ/L CALCIUM (test code = 2209) 9.6 MG/DL PROTEIN, TOTAL (test code = 2229) 7.5 G/DL ALBUMIN (test code = 2201) 4.3 G/DL CALC GLOBULIN (test code = 2240) 3.2 G/DL CALC A/G RATIO (test code = 2234) 1.3 RATIO BILIRUBIN, TOTAL (test code = 2207) 0.5 MG/DL ALKALINE PHOSPHATASE (test code = 2204) 92 U/L AST (test code = 2218) 22 U/L ALT (test code = 2219) 21 U/L CBC W/AUTO [id number] 00:00:00* Test Item Value Reference Range Interpretation Comme nts WBC (test code = 1001) 5.7 K/UL RBC (test code = 1002) 4.68 M/UL HEMOGLOBIN (test code = 1003) 13.5 G/DL HEMATOCRIT (test code = 1004) 39.8 % MCV (test code = 1005) 85.0 fL MCH (test code = 1006) 28.8 PG MCHC (test code = 1007) 33.9 G/DL RDW (test code = 1038) 13.6 % NEUTROPHILS (test code = 1008) 57.9 % LYMPHOCYTES (test code = 1010) 29.6 % MONOCYTES (test code = 1011) 8.4 % EOSINOPHILS (test code = 1012) 3.0 % BASOPHILS (test code = 1013) 1.1 % PLATELET COUNT (test code = 1015) 239 K/UL CBC W/AUTO [id number] 00:00:00* Test Item Value Reference Range Interpretation Comme nts WBC (test code = 1001) 5.7 K/UL RBC (test code = 1002) 4.68 M/UL HEMOGLOBIN (test code = 1003) 13.5 G/DL HEMATOCRIT (test code = 1004) 39.8 % MCV (test code = 1005) 85.0 fL MCH (test code = 1006) 28.8 PG MCHC (test code = 1007) 33.9 G/DL RDW (test code = 1038) 13.6 % NEUTROPHILS (test code = 1008) 57.9 % LYMPHOCYTES (test code = 1010) 29.6 % MONOCYTES (test code = 1011) 8.4 % EOSINOPHILS (test code = 1012) 3.0 % BASOPHILS (test code = 1013) 1.1 % PLATELET COUNT (test code = 1015) 239 K/UL CBC W/AUTO [id number] 00:00:00* Test Item Value Reference Range Interpretation Comme nts WBC (test code = 1001) 5.7 K/UL RBC (test code = 1002) 4.68 M/UL HEMOGLOBIN (test code = 1003) 13.5 G/DL HEMATOCRIT (test code = 1004) 39.8 % MCV (test code = 1005) 85.0 fL MCH (test code = 1006) 28.8 PG MCHC (test code = 1007) 33.9 G/DL RDW (test code = 1038) 13.6 % NEUTROPHILS (test code = 1008) 57.9 % LYMPHOCYTES (test code = 1010) 29.6 % MONOCYTES (test code = 1011) 8.4 % EOSINOPHILS (test code = 1012) 3.0 % BASOPHILS (test code = 1013) 1.1 % PLATELET COUNT (test code = 1015) 239 K/UL HEMOGLOBIN [id number] 00:00:00* Test Item Value Reference Range Interpretation Comme nts HEMOGLOBIN A1c (test code = 94482) 9.3 % LIPID [id number] 00:00:00* Test Item Value Reference Range Interpretation Comme nts CHOLESTEROL (test code = 2210) 240 MG/DL TRIGLYCERIDES (test code = 2232) 137 MG/DL HDL CHOLESTEROL (test code = 2220) 48 MG/DL CALC LDL CHOL (test code = 2237) 165 MG/DL RISK RATIO LDL/HDL (test cod e = 2238) 3.43 RATIO LIPID [id number] 00:00:00* Test Item Value Reference Range Interpretation Comme nts CHOLESTEROL (test code = 2210) 240 MG/DL TRIGLYCERIDES (test code = 2232) 137 MG/DL HDL CHOLESTEROL (test code = 2220) 48 MG/DL CALC LDL CHOL (test code = 2237) 165 MG/DL RISK RATIO LDL/HDL (test cod e = 2238) 3.43 RATIO MICROALBUMIN/CREATININE, RANDOM AND [id number] 00:00:00* Test Item Value Reference Range Interpretation Comme nts CREATININE, URINE, CONC. (te st code = 207) 146.0 MG/DL ALBUMIN, URINE, RANDOM (test code = 05029) 1.0 MG/DL CALC ALBUMIN/CREAT, RND (baljinder t code = 57898) 7 MG/G MICROALBUMIN/CREATININE, RANDOM AND [id number] 00:00:00* Test Item Value Reference Range Interpretation Comme nts CREATININE, URINE, CONC. (te st code = 2071) 146.0 MG/DL ALBUMIN, URINE, RANDOM (test code = 92480) 1.0 MG/DL CALC ALBUMIN/CREAT, RND (baljinder t code = 49644) 7 MG/G HEMOGLOBIN [id number] 00:00:00* Test Item Value Reference Range Interpretation Comme nts HEMOGLOBIN A1c (test code = 82721) 9.3 % COMPREHENSIVE METABOLIC [id number] 00:00:00* Test Item Value Reference Range Interpretation Comme nts GLUCOSE (test code = 2217) 189 MG/DL BUN (test code = 2208) 15 MG/DL CREATININE (test code = 2214) 0.55 MG/DL eGFR AMER. (test cod e = 59257) 112 ML/MIN/1.73 eGFR NON- AMER. (test code = 66597) 96 ML/MIN/1.73 CALC BUN/CREAT (test code = 2235) 27 RATIO SODIUM (test code = 2231) 142 MEQ/L POTASSIUM (test code = 2228) 4.6 MEQ/L CHLORIDE (test code = 2215) 103 MEQ/L CARBON DIOXIDE (test code = 2206) 26 MEQ/L CALCIUM (test code = 2209) 9.6 MG/DL PROTEIN, TOTAL (test code = 2229) 7.5 G/DL ALBUMIN (test code = 2201) 4.3 G/DL CALC GLOBULIN (test code = 2240) 3.2 G/DL CALC A/G RATIO (test code = 2234) 1.3 RATIO BILIRUBIN, TOTAL (test code = 2207) 0.5 MG/DL ALKALINE PHOSPHATASE (test code = 2204) 92 U/L AST (test code = 2218) 22 U/L ALT (test code = 2219) 21 U/L CBC W/AUTO [id number] 00:00:00* Test Item Value Reference Range Interpretation Comme nts WBC (test code = 1001) 5.7 K/UL RBC (test code = 1002) 4.68 M/UL HEMOGLOBIN (test code = 1003) 13.5 G/DL HEMATOCRIT (test code = 1004) 39.8 % MCV (test code = 1005) 85.0 fL MCH (test code = 1006) 28.8 PG MCHC (test code = 1007) 33.9 G/DL RDW (test code = 1038) 13.6 % NEUTROPHILS (test code = 1008) 57.9 % LYMPHOCYTES (test code = 1010) 29.6 % MONOCYTES (test code = 1011) 8.4 % EOSINOPHILS (test code = 1012) 3.0 % BASOPHILS (test code = 1013) 1.1 % PLATELET COUNT (test code = 1015) 239 K/UL HEMOGLOBIN [id number] 00:00:00* Test Item Value Reference Range Interpretation Comme nts HEMOGLOBIN A1c (test code = 82537) 9.3 % HEMOGLOBIN [id number] 00:00:00* Test Item Value Reference Range Interpretation Comme nts HEMOGLOBIN A1c (test code = 13381) 9.3 % HEMOGLOBIN [id number] 00:00:00* Test Item Value Reference Range Interpretation Comme nts HEMOGLOBIN A1c (test code = 92295) 9.3 % CBC W/AUTO [id number] 00:00:00* Test Item Value Reference Range Interpretation Comme nts WBC (test code = 1001) 5.7 K/UL RBC (test code = 1002) 4.68 M/UL HEMOGLOBIN (test code = 1003) 13.5 G/DL HEMATOCRIT (test code = 1004) 39.8 % MCV (test code = 1005) 85.0 fL MCH (test code = 1006) 28.8 PG MCHC (test code = 1007) 33.9 G/DL RDW (test code = 1038) 13.6 % NEUTROPHILS (test code = 1008) 57.9 % LYMPHOCYTES (test code = 1010) 29.6 % MONOCYTES (test code = 1011) 8.4 % EOSINOPHILS (test code = 1012) 3.0 % BASOPHILS (test code = 1013) 1.1 % PLATELET COUNT (test code = 1015) 239 K/UL COMPREHENSIVE METABOLIC [id number] 00:00:00* Test Item Value Reference Range Interpretation Comme nts GLUCOSE (test code = 2217) 189 MG/DL BUN (test code = 2208) 15 MG/DL CREATININE (test code = 2214) 0.55 MG/DL eGFR AMER. (test cod e = 86308) 112 ML/MIN/1.73 eGFR NON- AMER. (test code = 37140) 96 ML/MIN/1.73 CALC BUN/CREAT (test code = 2235) 27 RATIO SODIUM (test code = 2231) 142 MEQ/L POTASSIUM (test code = 2228) 4.6 MEQ/L CHLORIDE (test code = 2215) 103 MEQ/L CARBON DIOXIDE (test code = 2206) 26 MEQ/L CALCIUM (test code = 2209) 9.6 MG/DL PROTEIN, TOTAL (test code = 2229) 7.5 G/DL ALBUMIN (test code = 2201) 4.3 G/DL CALC GLOBULIN (test code = 2240) 3.2 G/DL CALC A/G RATIO (test code = 2234) 1.3 RATIO BILIRUBIN, TOTAL (test code = 2207) 0.5 MG/DL ALKALINE PHOSPHATASE (test code = 2204) 92 U/L AST (test code = 2218) 22 U/L ALT (test code = 2219) 21 U/L COMPREHENSIVE METABOLIC [id number] 00:00:00* Test Item Value Reference Range Interpretation Comme nts GLUCOSE (test code = 2217) 189 MG/DL BUN (test code = 2208) 15 MG/DL CREATININE (test code = 2214) 0.55 MG/DL eGFR AMER. (test cod e = 75602) 112 ML/MIN/1.73 eGFR NON- AMER. (test code = 97123) 96 ML/MIN/1.73 CALC BUN/CREAT (test code = 2235) 27 RATIO SODIUM (test code = 2231) 142 MEQ/L POTASSIUM (test code = 2228) 4.6 MEQ/L CHLORIDE (test code = 2215) 103 MEQ/L CARBON DIOXIDE (test code = 2206) 26 MEQ/L CALCIUM (test code = 2209) 9.6 MG/DL PROTEIN, TOTAL (test code = 2229) 7.5 G/DL ALBUMIN (test code = 2201) 4.3 G/DL CALC GLOBULIN (test code = 2240) 3.2 G/DL CALC A/G RATIO (test code = 2234) 1.3 RATIO BILIRUBIN, TOTAL (test code = 2207) 0.5 MG/DL ALKALINE PHOSPHATASE (test code = 2204) 92 U/L AST (test code = 2218) 22 U/L ALT (test code = 2219) 21 U/L LIPID [id number] 00:00:00* Test Item Value Reference Range Interpretation Comme nts CHOLESTEROL (test code = 2210) 240 MG/DL TRIGLYCERIDES (test code = 2232) 137 MG/DL HDL CHOLESTEROL (test code = 2220) 48 MG/DL CALC LDL CHOL (test code = 2237) 165 MG/DL RISK RATIO LDL/HDL (test cod e = 2238) 3.43 RATIO CBC W/AUTO [id number] 00:00:00* Test Item Value Reference Range Interpretation Comme nts WBC (test code = 1001) 5.7 K/UL RBC (test code = 1002) 4.68 M/UL HEMOGLOBIN (test code = 1003) 13.5 G/DL HEMATOCRIT (test code = 1004) 39.8 % MCV (test code = 1005) 85.0 fL MCH (test code = 1006) 28.8 PG MCHC (test code = 1007) 33.9 G/DL RDW (test code = 1038) 13.6 % NEUTROPHILS (test code = 1008) 57.9 % LYMPHOCYTES (test code = 1010) 29.6 % MONOCYTES (test code = 1011) 8.4 % EOSINOPHILS (test code = 1012) 3.0 % BASOPHILS (test code = 1013) 1.1 % PLATELET COUNT (test code = 1015) 239 K/UL CBC W/AUTO [id number] 00:00:00* Test Item Value Reference Range Interpretation Comme nts WBC (test code = 1001) 5.7 K/UL RBC (test code = 1002) 4.68 M/UL HEMOGLOBIN (test code = 1003) 13.5 G/DL HEMATOCRIT (test code = 1004) 39.8 % MCV (test code = 1005) 85.0 fL MCH (test code = 1006) 28.8 PG MCHC (test code = 1007) 33.9 G/DL RDW (test code = 1038) 13.6 % NEUTROPHILS (test code = 1008) 57.9 % LYMPHOCYTES (test code = 1010) 29.6 % MONOCYTES (test code = 1011) 8.4 % EOSINOPHILS (test code = 1012) 3.0 % BASOPHILS (test code = 1013) 1.1 % PLATELET COUNT (test code = 1015) 239 K/UL CBC W/AUTO [id number] 00:00:00* Test Item Value Reference Range Interpretation Comme nts WBC (test code = 1001) 5.7 K/UL RBC (test code = 1002) 4.68 M/UL HEMOGLOBIN (test code = 1003) 13.5 G/DL HEMATOCRIT (test code = 1004) 39.8 % MCV (test code = 1005) 85.0 fL MCH (test code = 1006) 28.8 PG MCHC (test code = 1007) 33.9 G/DL RDW (test code = 1038) 13.6 % NEUTROPHILS (test code = 1008) 57.9 % LYMPHOCYTES (test code = 1010) 29.6 % MONOCYTES (test code = 1011) 8.4 % EOSINOPHILS (test code = 1012) 3.0 % BASOPHILS (test code = 1013) 1.1 % PLATELET COUNT (test code = 1015) 239 K/UL LIPID [id number] 00:00:00* Test Item Value Reference Range Interpretation Comme nts CHOLESTEROL (test code = 2210) 240 MG/DL TRIGLYCERIDES (test code = 2232) 137 MG/DL HDL CHOLESTEROL (test code = 2220) 48 MG/DL CALC LDL CHOL (test code = 2237) 165 MG/DL RISK RATIO LDL/HDL (test cod e = 2238) 3.43 RATIO LIPID [id number] 00:00:00* Test Item Value Reference Range Interpretation Comme nts CHOLESTEROL (test code = 2210) 240 MG/DL TRIGLYCERIDES (test code = 2232) 137 MG/DL HDL CHOLESTEROL (test code = 2220) 48 MG/DL CALC LDL CHOL (test code = 2237) 165 MG/DL RISK RATIO LDL/HDL (test cod e = 2238) 3.43 RATIO MICROALBUMIN/CREATININE, RANDOM AND [id number] 00:00:00* Test Item Value Reference Range Interpretation Comme nts CREATININE, URINE, CONC. (te st code = 207) 146.0 MG/DL ALBUMIN, URINE, RANDOM (test code = 15231) 1.0 MG/DL CALC ALBUMIN/CREAT, RND (baljinder t code = 37047) 7 MG/G MICROALBUMIN/CREATININE, RANDOM AND [id number] 00:00:00* Test Item Value Reference Range Interpretation Comme nts CREATININE, URINE, CONC. (te st code = 2071) 146.0 MG/DL ALBUMIN, URINE, RANDOM (test code = 78146) 1.0 MG/DL CALC ALBUMIN/CREAT, RND (baljinder t code = 32421) 7 MG/G MICROALBUMIN/CREATININE, RANDOM AND [id number] 00:00:00* Test Item Value Reference Range Interpretation Comme nts CREATININE, URINE, CONC. (te st code = 2071) 146.0 MG/DL ALBUMIN, URINE, RANDOM (test code = 52470) 1.0 MG/DL CALC ALBUMIN/CREAT, RND (baljinder t code = 49769) 7 MG/G HEMOGLOBIN [id number] 00:00:00* Test Item Value Reference Range Interpretation Comme nts HEMOGLOBIN A1c (test code = 80664) 9.3 % HEMOGLOBIN [id number] 00:00:00* Test Item Value Reference Range Interpretation Comme nts HEMOGLOBIN A1c (test code = 57709) 9.3 % HEMOGLOBIN [id number] 00:00:00* Test Item Value Reference Range Interpretation Comme nts HEMOGLOBIN A1c (test code = 94454) 9.3 % COMPREHENSIVE METABOLIC [id number] 00:00:00* Test Item Value Reference Range Interpretation Comme nts GLUCOSE (test code = 2217) 189 MG/DL BUN (test code = 2208) 15 MG/DL CREATININE (test code = 2214) 0.55 MG/DL eGFR AMER. (test cod e = 23808) 112 ML/MIN/1.73 eGFR NON- AMER. (test code = 81114) 96 ML/MIN/1.73 CALC BUN/CREAT (test code = 2235) 27 RATIO SODIUM (test code = 2231) 142 MEQ/L POTASSIUM (test code = 2228) 4.6 MEQ/L CHLORIDE (test code = 2215) 103 MEQ/L CARBON DIOXIDE (test code = 2206) 26 MEQ/L CALCIUM (test code = 2209) 9.6 MG/DL PROTEIN, TOTAL (test code = 2229) 7.5 G/DL ALBUMIN (test code = 2201) 4.3 G/DL CALC GLOBULIN (test code = 2240) 3.2 G/DL CALC A/G RATIO (test code = 2234) 1.3 RATIO BILIRUBIN, TOTAL (test code = 2207) 0.5 MG/DL ALKALINE PHOSPHATASE (test code = 2204) 92 U/L AST (test code = 2218) 22 U/L ALT (test code = 2219) 21 U/L COMPREHENSIVE METABOLIC [id number] 00:00:00* Test Item Value Reference Range Interpretation Comme nts GLUCOSE (test code = 2217) 189 MG/DL BUN (test code = 2208) 15 MG/DL CREATININE (test code = 2214) 0.55 MG/DL eGFR AMER. (test cod e = 77573) 112 ML/MIN/1.73 eGFR NON- AMER. (test code = 58375) 96 ML/MIN/1.73 CALC BUN/CREAT (test code = 2235) 27 RATIO SODIUM (test code = 2231) 142 MEQ/L POTASSIUM (test code = 2228) 4.6 MEQ/L CHLORIDE (test code = 2215) 103 MEQ/L CARBON DIOXIDE (test code = 2206) 26 MEQ/L CALCIUM (test code = 2209) 9.6 MG/DL PROTEIN, TOTAL (test code = 2229) 7.5 G/DL ALBUMIN (test code = 2201) 4.3 G/DL CALC GLOBULIN (test code = 2240) 3.2 G/DL CALC A/G RATIO (test code = 2234) 1.3 RATIO BILIRUBIN, TOTAL (test code = 2207) 0.5 MG/DL ALKALINE PHOSPHATASE (test code = 2204) 92 U/L AST (test code = 2218) 22 U/L ALT (test code = 2219) 21 U/L CBC W/AUTO [id number] 00:00:00* Test Item Value Reference Range Interpretation Comme nts WBC (test code = 1001) 5.7 K/UL RBC (test code = 1002) 4.68 M/UL HEMOGLOBIN (test code = 1003) 13.5 G/DL HEMATOCRIT (test code = 1004) 39.8 % MCV (test code = 1005) 85.0 fL MCH (test code = 1006) 28.8 PG MCHC (test code = 1007) 33.9 G/DL RDW (test code = 1038) 13.6 % NEUTROPHILS (test code = 1008) 57.9 % LYMPHOCYTES (test code = 1010) 29.6 % MONOCYTES (test code = 1011) 8.4 % EOSINOPHILS (test code = 1012) 3.0 % BASOPHILS (test code = 1013) 1.1 % PLATELET COUNT (test code = 1015) 239 K/UL CBC W/AUTO [id number] 00:00:00* Test Item Value Reference Range Interpretation Comme nts WBC (test code = 1001) 5.7 K/UL RBC (test code = 1002) 4.68 M/UL HEMOGLOBIN (test code = 1003) 13.5 G/DL HEMATOCRIT (test code = 1004) 39.8 % MCV (test code = 1005) 85.0 fL MCH (test code = 1006) 28.8 PG MCHC (test code = 1007) 33.9 G/DL RDW (test code = 1038) 13.6 % NEUTROPHILS (test code = 1008) 57.9 % LYMPHOCYTES (test code = 1010) 29.6 % MONOCYTES (test code = 1011) 8.4 % EOSINOPHILS (test code = 1012) 3.0 % BASOPHILS (test code = 1013) 1.1 % PLATELET COUNT (test code = 1015) 239 K/UL CBC W/AUTO [id number] 00:00:00* Test Item Value Reference Range Interpretation Comme nts WBC (test code = 1001) 5.7 K/UL RBC (test code = 1002) 4.68 M/UL HEMOGLOBIN (test code = 1003) 13.5 G/DL HEMATOCRIT (test code = 1004) 39.8 % MCV (test code = 1005) 85.0 fL MCH (test code = 1006) 28.8 PG MCHC (test code = 1007) 33.9 G/DL RDW (test code = 1038) 13.6 % NEUTROPHILS (test code = 1008) 57.9 % LYMPHOCYTES (test code = 1010) 29.6 % MONOCYTES (test code = 1011) 8.4 % EOSINOPHILS (test code = 1012) 3.0 % BASOPHILS (test code = 1013) 1.1 % PLATELET COUNT (test code = 1015) 239 K/UL LIPID [id number] 00:00:00* Test Item Value Reference Range Interpretation Comme nts CHOLESTEROL (test code = 2210) 240 MG/DL TRIGLYCERIDES (test code = 2232) 137 MG/DL HDL CHOLESTEROL (test code = 2220) 48 MG/DL CALC LDL CHOL (test code = 2237) 165 MG/DL RISK RATIO LDL/HDL (test cod e = 2238) 3.43 RATIO LIPID [id number] 00:00:00* Test Item Value Reference Range Interpretation Comme nts CHOLESTEROL (test code = 2210) 240 MG/DL TRIGLYCERIDES (test code = 2232) 137 MG/DL HDL CHOLESTEROL (test code = 2220) 48 MG/DL CALC LDL CHOL (test code = 2237) 165 MG/DL RISK RATIO LDL/HDL (test cod e = 2238) 3.43 RATIO MICROALBUMIN/CREATININE, RANDOM AND [id number] 00:00:00* Test Item Value Reference Range Interpretation Comme nts CREATININE, URINE, CONC. (te st code = 2072) 146.0 MG/DL ALBUMIN, URINE, RANDOM (test code = 99215) 1.0 MG/DL CALC ALBUMIN/CREAT, RND (baljinder t code = 21529) 7 MG/G MICROALBUMIN/CREATININE, RANDOM AND [id number] 00:00:00* Test Item Value Reference Range Interpretation Comme nts CREATININE, URINE, CONC. (te st code = 207) 146.0 MG/DL ALBUMIN, URINE, RANDOM (test code = 23240) 1.0 MG/DL CALC ALBUMIN/CREAT, RND (baljinder t code = 36691) 7 MG/G HEMOGLOBIN [id number] 00:00:00* Test Item Value Reference Range Interpretation Comme nts HEMOGLOBIN A1c (test code = 52543) 9.3 % HEMOGLOBIN [id number] 00:00:00* Test Item Value Reference Range Interpretation Comme nts HEMOGLOBIN A1c (test code = 30429) 9.3 % HEMOGLOBIN [id number] 00:00:00* Test Item Value Reference Range Interpretation Comme nts HEMOGLOBIN A1c (test code = 42458) 9.3 % COMPREHENSIVE METABOLIC [id number] 00:00:00* Test Item Value Reference Range Interpretation Comme nts GLUCOSE (test code = 2217) 189 MG/DL BUN (test code = 2208) 15 MG/DL CREATININE (test code = 2214) 0.55 MG/DL eGFR AMER. (test cod e = 94536) 112 ML/MIN/1.73 eGFR NON- AMER. (test code = 12657) 96 ML/MIN/1.73 CALC BUN/CREAT (test code = 2235) 27 RATIO SODIUM (test code = 2231) 142 MEQ/L POTASSIUM (test code = 2228) 4.6 MEQ/L CHLORIDE (test code = 2215) 103 MEQ/L CARBON DIOXIDE (test code = 2206) 26 MEQ/L CALCIUM (test code = 2209) 9.6 MG/DL PROTEIN, TOTAL (test code = 2229) 7.5 G/DL ALBUMIN (test code = 2201) 4.3 G/DL CALC GLOBULIN (test code = 2240) 3.2 G/DL CALC A/G RATIO (test code = 2234) 1.3 RATIO BILIRUBIN, TOTAL (test code = 2207) 0.5 MG/DL ALKALINE PHOSPHATASE (test code = 2204) 92 U/L AST (test code = 2218) 22 U/L ALT (test code = 2219) 21 U/L COMPREHENSIVE METABOLIC [id number] 00:00:00* Test Item Value Reference Range Interpretation Comme nts GLUCOSE (test code = 2217) 189 MG/DL BUN (test code = 2208) 15 MG/DL CREATININE (test code = 2214) 0.55 MG/DL eGFR AMER. (test cod e = 38255) 112 ML/MIN/1.73 eGFR NON- AMER. (test code = 43091) 96 ML/MIN/1.73 CALC BUN/CREAT (test code = 2235) 27 RATIO SODIUM (test code = 2231) 142 MEQ/L POTASSIUM (test code = 2228) 4.6 MEQ/L CHLORIDE (test code = 2215) 103 MEQ/L CARBON DIOXIDE (test code = 2206) 26 MEQ/L CALCIUM (test code = 2209) 9.6 MG/DL PROTEIN, TOTAL (test code = 2229) 7.5 G/DL ALBUMIN (test code = 2201) 4.3 G/DL CALC GLOBULIN (test code = 2240) 3.2 G/DL CALC A/G RATIO (test code = 2234) 1.3 RATIO BILIRUBIN, TOTAL (test code = 2207) 0.5 MG/DL ALKALINE PHOSPHATASE (test code = 2204) 92 U/L AST (test code = 2218) 22 U/L ALT (test code = 2219) 21 U/L CBC W/AUTO [id number] 00:00:00* Test Item Value Reference Range Interpretation Comme nts WBC (test code = 1001) 5.7 K/UL RBC (test code = 1002) 4.68 M/UL HEMOGLOBIN (test code = 1003) 13.5 G/DL HEMATOCRIT (test code = 1004) 39.8 % MCV (test code = 1005) 85.0 fL MCH (test code = 1006) 28.8 PG MCHC (test code = 1007) 33.9 G/DL RDW (test code = 1038) 13.6 % NEUTROPHILS (test code = 1008) 57.9 % LYMPHOCYTES (test code = 1010) 29.6 % MONOCYTES (test code = 1011) 8.4 % EOSINOPHILS (test code = 1012) 3.0 % BASOPHILS (test code = 1013) 1.1 % PLATELET COUNT (test code = 1015) 239 K/UL CBC W/AUTO [id number] 00:00:00* Test Item Value Reference Range Interpretation Comme nts WBC (test code = 1001) 5.7 K/UL RBC (test code = 1002) 4.68 M/UL HEMOGLOBIN (test code = 1003) 13.5 G/DL HEMATOCRIT (test code = 1004) 39.8 % MCV (test code = 1005) 85.0 fL MCH (test code = 1006) 28.8 PG MCHC (test code = 1007) 33.9 G/DL RDW (test code = 1038) 13.6 % NEUTROPHILS (test code = 1008) 57.9 % LYMPHOCYTES (test code = 1010) 29.6 % MONOCYTES (test code = 1011) 8.4 % EOSINOPHILS (test code = 1012) 3.0 % BASOPHILS (test code = 1013) 1.1 % PLATELET COUNT (test code = 1015) 239 K/UL CBC W/AUTO [id number] 00:00:00* Test Item Value Reference Range Interpretation Comme nts WBC (test code = 1001) 5.7 K/UL RBC (test code = 1002) 4.68 M/UL HEMOGLOBIN (test code = 1003) 13.5 G/DL HEMATOCRIT (test code = 1004) 39.8 % MCV (test code = 1005) 85.0 fL MCH (test code = 1006) 28.8 PG MCHC (test code = 1007) 33.9 G/DL RDW (test code = 1038) 13.6 % NEUTROPHILS (test code = 1008) 57.9 % LYMPHOCYTES (test code = 1010) 29.6 % MONOCYTES (test code = 1011) 8.4 % EOSINOPHILS (test code = 1012) 3.0 % BASOPHILS (test code = 1013) 1.1 % PLATELET COUNT (test code = 1015) 239 K/UL LIPID [id number] 00:00:00* Test Item Value Reference Range Interpretation Comme nts CHOLESTEROL (test code = 2210) 240 MG/DL TRIGLYCERIDES (test code = 2232) 137 MG/DL HDL CHOLESTEROL (test code = 2220) 48 MG/DL CALC LDL CHOL (test code = 2237) 165 MG/DL RISK RATIO LDL/HDL (test cod e = 2238) 3.43 RATIO LIPID [id number] 00:00:00* Test Item Value Reference Range Interpretation Comme nts CHOLESTEROL (test code = 2210) 240 MG/DL TRIGLYCERIDES (test code = 2232) 137 MG/DL HDL CHOLESTEROL (test code = 2220) 48 MG/DL CALC LDL CHOL (test code = 2237) 165 MG/DL RISK RATIO LDL/HDL (test cod e = 2238) 3.43 RATIO MICROALBUMIN/CREATININE, RANDOM AND [id number] 00:00:00* Test Item Value Reference Range Interpretation Comme nts CREATININE, URINE, CONC. (te st code = 2071) 146.0 MG/DL ALBUMIN, URINE, RANDOM (test code = 90117) 1.0 MG/DL CALC ALBUMIN/CREAT, RND (baljinder t code = 75392) 7 MG/G MICROALBUMIN/CREATININE, RANDOM AND [id number] 00:00:00* Test Item Value Reference Range Interpretation Comme nts CREATININE, URINE, CONC. (te st code = 2071) 146.0 MG/DL ALBUMIN, URINE, RANDOM (test code = 45869) 1.0 MG/DL CALC ALBUMIN/CREAT, RND (baljinder t code = 07187) 7 MG/G HEMOGLOBIN [id number] 00:00:00* Test Item Value Reference Range Interpretation Comme nts HEMOGLOBIN A1c (test code = 53459) 9.3 % HEMOGLOBIN [id number] 00:00:00* Test Item Value Reference Range Interpretation Comme nts HEMOGLOBIN A1c (test code = 14022) 9.3 % COMPREHENSIVE METABOLIC [id number] 00:00:00* Test Item Value Reference Range Interpretation Comme nts GLUCOSE (test code = 2217) 189 MG/DL BUN (test code = 2208) 15 MG/DL CREATININE (test code = 2214) 0.55 MG/DL eGFR AMER. (test cod e = 08960) 112 ML/MIN/1.73 eGFR NON- AMER. (test code = 65584) 96 ML/MIN/1.73 CALC BUN/CREAT (test code = 2235) 27 RATIO SODIUM (test code = 2231) 142 MEQ/L POTASSIUM (test code = 2228) 4.6 MEQ/L CHLORIDE (test code = 2215) 103 MEQ/L CARBON DIOXIDE (test code = 2206) 26 MEQ/L CALCIUM (test code = 2209) 9.6 MG/DL PROTEIN, TOTAL (test code = 2229) 7.5 G/DL ALBUMIN (test code = 2201) 4.3 G/DL CALC GLOBULIN (test code = 2240) 3.2 G/DL CALC A/G RATIO (test code = 2234) 1.3 RATIO BILIRUBIN, TOTAL (test code = 2207) 0.5 MG/DL ALKALINE PHOSPHATASE (test code = 2204) 92 U/L AST (test code = 2218) 22 U/L ALT (test code = 2219) 21 U/L CBC W/AUTO [id number] 00:00:00* Test Item Value Reference Range Interpretation Comme nts WBC (test code = 1001) 5.7 K/UL RBC (test code = 1002) 4.68 M/UL HEMOGLOBIN (test code = 1003) 13.5 G/DL HEMATOCRIT (test code = 1004) 39.8 % MCV (test code = 1005) 85.0 fL MCH (test code = 1006) 28.8 PG MCHC (test code = 1007) 33.9 G/DL RDW (test code = 1038) 13.6 % NEUTROPHILS (test code = 1008) 57.9 % LYMPHOCYTES (test code = 1010) 29.6 % MONOCYTES (test code = 1011) 8.4 % EOSINOPHILS (test code = 1012) 3.0 % BASOPHILS (test code = 1013) 1.1 % PLATELET COUNT (test code = 1015) 239 K/UL CBC W/AUTO [id number] 00:00:00* Test Item Value Reference Range Interpretation Comme nts WBC (test code = 1001) 5.7 K/UL RBC (test code = 1002) 4.68 M/UL HEMOGLOBIN (test code = 1003) 13.5 G/DL HEMATOCRIT (test code = 1004) 39.8 % MCV (test code = 1005) 85.0 fL MCH (test code = 1006) 28.8 PG MCHC (test code = 1007) 33.9 G/DL RDW (test code = 1038) 13.6 % NEUTROPHILS (test code = 1008) 57.9 % LYMPHOCYTES (test code = 1010) 29.6 % MONOCYTES (test code = 1011) 8.4 % EOSINOPHILS (test code = 1012) 3.0 % BASOPHILS (test code = 1013) 1.1 % PLATELET COUNT (test code = 1015) 239 K/UL LIPID [id number] 00:00:00* Test Item Value Reference Range Interpretation Comme nts CHOLESTEROL (test code = 2210) 240 MG/DL TRIGLYCERIDES (test code = 2232) 137 MG/DL HDL CHOLESTEROL (test code = 2220) 48 MG/DL CALC LDL CHOL (test code = 2237) 165 MG/DL RISK RATIO LDL/HDL (test cod e = 2238) 3.43 RATIO MICROALBUMIN/CREATININE, RANDOM AND [id number] 00:00:00* Test Item Value Reference Range Interpretation Comme nts CREATININE, URINE, CONC. (te st code = 2072) 146.0 MG/DL ALBUMIN, URINE, RANDOM (test code = 70495) 1.0 MG/DL CALC ALBUMIN/CREAT, RND (baljinder t code = 65132) 7 MG/G COMPREHENSIVE METABOLIC [id number] 00:00:00* Test Item Value Reference Range Interpretation Comme nts GLUCOSE (test code = 2217) 189 MG/DL BUN (test code = 2208) 15 MG/DL CREATININE (test code = 2214) 0.55 MG/DL eGFR AMER. (test cod e = 90556) 112 ML/MIN/1.73 eGFR NON- AMER. (test code = 67097) 96 ML/MIN/1.73 CALC BUN/CREAT (test code = 2235) 27 RATIO SODIUM (test code = 2231) 142 MEQ/L POTASSIUM (test code = 2228) 4.6 MEQ/L CHLORIDE (test code = 2215) 103 MEQ/L CARBON DIOXIDE (test code = 2206) 26 MEQ/L CALCIUM (test code = 2209) 9.6 MG/DL PROTEIN, TOTAL (test code = 2229) 7.5 G/DL ALBUMIN (test code = 2201) 4.3 G/DL CALC GLOBULIN (test code = 2240) 3.2 G/DL CALC A/G RATIO (test code = 2234) 1.3 RATIO BILIRUBIN, TOTAL (test code = 2207) 0.5 MG/DL ALKALINE PHOSPHATASE (test code = 2204) 92 U/L AST (test code = 2218) 22 U/L ALT (test code = 2219) 21 U/L Toney [id number] 06:37:00* Test Item Value Reference Range Interpretation Comme nts GLUBED (test code = GLUBED) 168 mg/dL 70-105 H Performed by cer tified acetylene torch operator at [facility] [id number] 20:57:00* Test Item Value Reference Range Interpretation Comme nts GLUBED (test code = GLUBED) 158 mg/dL 70-105 H Performed by cer tified acetylene torch operator at [facility] [id number] 16:41:00* Test Item Value Reference Range Interpretation Comme nts GLUBED (test code = GLUBED) 136 mg/dL 70-105 H Performed by cer tified acetylene torch operator at [facility]2019-04-11 11:35:00* Test Item Value Reference Range Interpretation Comme nts GLUBED (test code = GLUBED) 192 mg/dL 70-105 H Performed by cer tified acetylene torch operator at [facility]2019-04-11 07:44:00* Test Item Value Reference Range Interpretation Comme nts GLUBED (test code = GLUBED) 145 mg/dL 70-105 H Performed by cer tified acetylene torch operator at [facility]2019-04-10 21:40:00* Test Item Value Reference Range Interpretation Comme nts GLUBED (test code = GLUBED) 159 mg/dL 70-105 H Performed by cer tified acetylene torch operator at [facility]2019-04-10 16:47:00* Test Item Value Reference Range Interpretation Comme nts GLUBED (test code = GLUBED) 169 mg/dL 70-105 H Performed by cer tified acetylene torch operator at [facility]2019-04-10 11:49:00* Test Item Value Reference Range Interpretation Comme nts GLUBED (test code = GLUBED) 137 mg/dL 70-105 H Performed by cer [employer] acetylene torch operator at [facility] - CT ABD PELVIS W/O [id number] 15:41:00Name: DANIELLE MARTINEZ [facility] : 1950 Age/S: 68 / F [address] [facility] Unit #: [id number] Loc: [place], [place] [address] Phys: Yonatan Swain Jr, MD Acct: [id number] DisDate: Status: REG ER PHONE #: [phone] Exam Date: 02/02/2019 144 FAX #: [phone] Reason: ABD APIN EXAMS: CPT CODE: [id number] CT ABD PELVIS W/O CONT 98795 - CT ABD PELVIS W/O CONT CLINICAL HISTORY: Abdominal pain. COMPARISON: None TECHNIQUE: Sequential axial images of abdomen and pelvis without contrast with sagittal and coronal reconstructions. This CT exam was performed using one or more of the following dose reduction techniques: Automated exposure control; Adjustment of the mA and/or kV according to patient size; Use of iterative reconstruction technique. The total exam DLP is 573.56 mGy-cm. FINDINGS: There is limited evaluation of the solid and hollow visceral organs without the use of IV contrast. Dependent atelectasis is seen at both lung bases. There is a subtle 3 mm [...] moderate amount of stool scattered throughout the colon.Scattered diverticula are noted, without definite inflammation. The appendix is unremarkable. Thereis mild laxity in the anterior abdominal wall, with a wide mouth paraumbilical hernia containing small bowel loops. Small bowel is normal in caliber. There is no evidence of free air, free fluid or pneumatosis. The distal stomach is decompressed which accentuates mucosa. There is an area of focal haziness within the mesentery with associated small 9 x 6 mm soft tissue and adjacent PAGE 1 Signed Report (CONTINUED) Name: DANIELLE MARTINEZ [facility] : 1950 Age/S: 68 /F [address] [facility] Unit #: [id number] Loc: [place], [place] [address] Phys: Yonatan Swain Jr, MD Acct: [id number] Dis Date: Status: REG ER PHONE #: [phone] Exam Date: 02/02/2019 1446 FAX #: [phone] Reason: ABD APIN EXAMS: CPT CODE: [id number] CT ABD PELVIS W/O CONT 96957 (Continued) calcifications (series 300, image #[id number]; series #2 image #[id number]) The pelvic sidewall symmetric. The bladder is incompletely distended without calculi. Patient appears to be status post hysterectomy. The abdominal aorta is quite tortuous with mild to moderate atherosclerotic calcifications. 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 No acute bony abnormality. IMPRESSION: No evidence of intestinal or urinary obstruction. No definite inflammatory process associatedwith the bowel. Focal area of haziness within [...] PAGE 2 Signed Report (CONTINUED) Name: DANIELLE MARTINEZ [facility] : 1950 Age/S: 68 / F [address] [facility] Unit #: [id number] Loc: [place] [address] Phys: Yonatan Swain Jr, MD Acct: [id number] Dis Date: Status: REG ER PHONE #: [phone] Exam Date: 02/02/2019 1449 FAX #: [phone] Reason: ABD APIN EXAMS: CPT CODE: [id number] CT ABD PELVIS W/O CONT 12567 (Continued) at 1541 Reported and signed by: Liz Rutledge MD CC: Reagan Hirsch Technologist:Yared Huang (R) CT (R) CTDI: 10.54 DLP: 573.56 Trnnhb Date/Time: 02/02/2019 (1541) AlaynaA2 Orig Print D/T: S: 02/02/2019 (1544) CTDI: 10.54 DLP: 573.56 PAGE 3 Signed ReportURINALYSIS W REFLEX [id number] 15:22:00* Test Item Value Reference Range Interpretation Comme nts UA COLOR (test code = COLU) Yellow YELLOW UA APPEARANCE (test code = APPU) HAZY CLEAR UA GLUCOSE DIPSTICK (test co de = DGLUU) NORMAL mg/dl NORMAL UA BILIRUBIN DIPSTICK (test code = BILU) NEGATIVE mg/dl NEGATIVE UA KETONE DIPSTICK (test cod e = KETU) NEGATIVE mg/dl NEGATIVE UA SPECIFIC GRAVITY (test co de = SGU) 1.025 1.001-1.035 N UA BLOOD DIPSTICK (test code = JOE) NEGATIVE /UL NEGATIVE UA PH DIPSTICK (test code = LUI) 5.0 4.6-8.0 UA PROTEIN DIPSTICK (test co de = PROU) NEGATIVE mg/dl NEGATIVE UA UROBILINIOGEN DIPSTICK (test code = URO) NORMAL mg/dl NORMAL UA NITRITE DIPSTICK (test co de = ANGELA) NEGATIVE NEGATIVE UA LEUKOCYTE ESTERASE DIPSTI CK (test code = LEUU) NEGATIVE /UL NEGATIVE UA COMMENT (test code = COMU) CLN CATCH UA WBC (test code = WBCU) 3-5 #/hpf 0-5 UA RBC (test code = RBCU) 6-10 #/hpf 0-5 A UA EPITHELIAL CELLS (test co de = EPIU) FEW /hpf NEG,FEW UA BACTERIA (test code = BACU) 2+ /hpf NEGATIVE A UA CALCIUM OXALATE CRYSTALS (test code = CAOXU) 1+ /hpf NEG,FEW A UA MUCUS (test code = MUCU) 2+ /hpf NEG,FEW A B-TYPE NATRIURETIC [id number] 15:02:00* Test Item Value Reference Range Interpretation Comme nts B-TYPE NATRIURETIC PEPTIDE ( test code = BNP) 34.8 PG/ML 0-100 N BASIC METABOLIC [id number] 14:51:00* Test Item Value Reference Range Interpretation Comme nts SODIUM (test code = NA) 139 mmol/L 136-145 N POTASSIUM (test code = K) 3.9 mmol/L 3.5-5.1 N CHLORIDE (test code = CL) 106 mmol/L 98-107 N CARBON DIOXIDE (test code = CO2) 25 mmol/L 21-32 N GLUCOSE (test code = GLU) 170 mg/dL 70-100 H BLOOD UREA NITROGEN (test code = BUN) 16 mg/dL 7-18 N GLOMERULAR FILTRATION RATE (test code = GFR) > 60.00 >=60 Reporting units: mL/min/1.73m\\S\\2 (Modified MDRD formula)REFERENCE RANGE: > or = 60 ml/min/1.73M2IF PATIENT IS -JAPANESE, MULTIPLY REPORTED RESULT BY1.21. CREATININE (test code = CREAT) 0.70 mg/dL 0.51-0.95 N CALCIUM (test code = CA) 9.2 mg/dL 8.5-10.1 N [id number] 14:51:00* Test Item Value Reference Range Interpretation Comme nts LIPASE (test code = LIP) 44 U/L 73-393 L [id number] 14:51:00* Test Item Value Reference Range Interpretation Comme nts TROPONIN-I (test code = TROPI) <0.015 ng/ml 0.00-0.045 N GUIDELINES: 0.08 - 0.09 Indeterminate0.10 Risk Stratification Limit: Suggest sequential testing0.60 - 1.50 AMI cutoff: Myocardial Injury by WHO criteria BASIC METABOLIC [id number] 14:49:00* Test Item Value Reference Range Interpretation Comme nts SODIUM (test code = NA) 139 mmol/L 136-145 N POTASSIUM (test code = K) 3.9 mmol/L 3.5-5.1 N CHLORIDE (test code = CL) 106 mmol/L 98-107 N CARBON DIOXIDE (test code = CO2) 25 mmol/L 21-32 N GLUCOSE (test code = GLU) 170 mg/dL 70-100 H BLOOD UREA NITROGEN (test code = BUN) 16 mg/dL 7-18 N GLOMERULAR FILTRATION RATE (test code = GFR) > 60.00 >=60 Reporting units: mL/min/1.73m\\S\\2 (Modified MDRD formula)REFERENCE RANGE: > or = 60 ml/min/1.73M2IF PATIENT IS -JAPANESE, MULTIPLY REPORTED RESULT BY1.21. CREATININE (test code = CREAT) 0.70 mg/dL 0.51-0.95 N CALCIUM (test code = CA) 9.2 mg/dL 8.5-10.1 N [id number] 14:49:00* Test Item Value Reference Range Interpretation Comme [facility] LIPASE (test code = LIP) 44 U/L 73-393 L [id number] 14:49:00* Test Item Value Reference Range Interpretation Comme [facility] TROPONIN-I (test code = TROPI) ng/ml 0.00-0.045 PROTHROMBIN [id number] 14:48:00* Test Item Value Reference Range Interpretation Comments PROTHROMBIN TIME PATIENT (test code = PTP) 12.9 SECONDS 8.7-12.1 H THERAPEUTIC LEVE L: 1.5 TO 1.9 TIMES NORMAL RANGE INTERNATIONAL NORMAL RATIO (test code = INR) 1.2 Recommended Ther apeutic PT Ratios For Oral AnticoagulantTherapy. CONDITION INT'L NORMALIZED PT RATIO Prophylaxis of venous thrombosis 2.0 - 3.0in high risk medical or surgicalpatients, treatment of venousthrombosis, prevention of embolism. Prevention of recurrent embolism, 2.5 - 3.5or treatment of patients with mechanicalprosthetic heart valves. THROMBOPLASTIN TIME [id number] 14:48:00* Test Item Value Reference Range Interpretation Comme [facility] THROMBOPLASTIN TIME PARTIAL (test code = PTT) 34.5 seconds 22.8-34.4 H CBC W/AUTO [id number] 14:33:00* Test Item Value Reference Range Interpretation Comme [facility] WHITE BLOOD CELL (test code = WBC) 8.8 X10(3) 4.5-11.0 N RED BLOOD CELL (test code = RBC) 3.75 X10(6) 4.2-5.4 L HEMOGLOBIN (test code = HGB) 11.1 g/dL 12.5-16.0 L HEMATOCRIT (test code = HCT) 35.1 % 37.0-47.0 L MEAN CELL VOLUME (test code = MCV) 93.6 fl 78-100 N MEAN CELL HGB (test code = MCH) 29.6 pg 26.0-34.0 N MEAN CELL HGB CONCETRATION (test code = MCHC) 31.6 g/dl 30.0-37.0 N RED CELL DISTRIBUTION WIDTH (test code = RDW) 14.9 % 11.5-14.5 H PLATELET COUNT (test code = PLT) 418 X10(3) 150-350 H MEAN PLATELET VOLUME (test c ode = MPV) 9.8 fl 8.7-11.4 N NEUTROPHIL % (test code = NT%) 66.2 % 36.0-66.0 H IMMATURE GRANULOCYTE % (test code = IG%) 0.6 % 0.0-2.0 N LYMPHOCYTE % (test code = LY%) 22.2 % 16-50 N MONOCYTE % (test code = MO%) 8.3 % 0.0-13.0 N EOSINOPHIL % (test code = EO%) 2.1 % 0.0-4.5 N BASOPHIL % (test code = BA%) 0.6 % 0.0-1.5 N NUCLEATED RBC % (test code = NRBC%) 0.0 % 0-0.2 N NEUTROPHIL # (test code = NT#) 5.8 X10(3) 1.7-7.7 N IMMATURE GRANULOCYTE # (test code = IG#) 0.05 X10(3)uL 0.00-0.03 H LYMPHOCYTE # (test code = LY#) 2.0 X10(3) 0.7-4.0 N MONOCYTE # (test code = MO#) 0.7 X10(3) 0.0-0.89 N EOSINOPHIL # (test code = EO#) 0.2 X10(3) 0.0-0.6 N BASOPHIL # (test code = BA#) 0.1 X10(3) 0.0-0.2 N NUCLEATED RBC # (test code = NRBC#) 0.00 K/mm3 0.0-0.1 N - XR CHEST 1 [id number] 14:25:00[facility] Name: DANIELLE MARTINEZ [address] [place] [address] Phys: Yonatan Swain Jr, MD [place], [place] [address] : 1950 Age: 68 Sex: F Acct: [id number] Loc: [place] PHONE #: [phone] Exam Date: 02/02/2019 Status: PRE ER FAX #: [phone] Radiology No: Unit No: [id number] Reason: chest pain EXAMS: CPT CODE: [id number] XR CHEST 1 V 73980 Fluoro Time: DAP (Gy m2): Air Kerma (mGy): EXAM: - XR CHEST 1 V LOCATION: C3 HISTORY: chest pain COMPARISON: None available time of int erpretation. FINDINGS: Single view of the chest. No indwelling lines or tubes. No pneumothorax. Thelungs are clear. No pleural effusions are present. The mediastinal contours are unremarkable. No acute osseous findings are present. IMPRESSION: No acute cardiopulmonary abnormality. at 1424 Reported and signed by: PRETTY SHARPE M.D. CC: Reagan Hirsch Technologist: RT Trinity (R) Transcribed Date/Time: 02/02/2019 (1560) t.SDR.[email or web address] Orig Print D/T: S: 02/02/2019 (6851) PAGE 1 Signed ReportCOMPREHENSIVE METABOLIC [id number] 00:00:00* Test Item Value Reference Range Interpretation Comme nts GLUCOSE (test code = 2217) 138 MG/DL BUN (test code = 2208) 21 MG/DL CREATININE (test code = 2214) 0.59 MG/DL eGFR AMER. (test cod e = 07857) 110 ML/MIN/1.73 eGFR NON- AMER. (test code = 89695) 95 ML/MIN/1.73 CALC BUN/CREAT (test code = 2235) 36 RATIO SODIUM (test code = 2231) 145 MEQ/L POTASSIUM (test code = 2228) 4.0 MEQ/L CHLORIDE (test code = 2215) 105 MEQ/L CARBON DIOXIDE (test code = 2206) 26 MEQ/L CALCIUM (test code = 2209) 9.7 MG/DL PROTEIN, TOTAL (test code = 2229) 7.2 G/DL ALBUMIN (test code = 2201) 4.2 G/DL CALC GLOBULIN (test code = 2240) 3.0 G/DL CALC A/G RATIO (test code = 2234) 1.4 RATIO BILIRUBIN, TOTAL (test code = 2207) <0.2 MG/DL ALKALINE PHOSPHATASE (test code = 2204) 88 U/L AST (test code = 2218) 16 U/L ALT (test code = 2219) 14 U/L Toney Cowan AustinHEMOGLOBIN [id number] 00:00:00* Test Item Value Reference Range Interpretation Comme nts HEMOGLOBIN A1c (test code = 39795) 6.4 % Toney F AustinHEMOGLOBIN [id number] 00:00:00* Test Item Value Reference Range Interpretation Comme nts HEMOGLOBIN A1c (test code = 70522) 6.4 % HEMOGLOBIN [id number] 00:00:00* Test Item Value Reference Range Interpretation Comme nts HEMOGLOBIN A1c (test code = 46801) 6.4 % LIPID [id number] 00:00:00* Test Item Value Reference Range Interpretation Comme nts CHOLESTEROL (test code = 2210) 195 MG/DL TRIGLYCERIDES (test code = 2232) 241 MG/DL HDL CHOLESTEROL (test code = 2220) 44 MG/DL CALC LDL CHOL (test code = 2237) 103 MG/DL RISK RATIO LDL/HDL (test cod e = 223) 2.34 RATIO COMPREHENSIVE METABOLIC [id number] 00:00:00* Test Item Value Reference Range Interpretation Comme nts GLUCOSE (test code = 7) 138 MG/DL BUN (test code = 2207) 21 MG/DL CREATININE (test code = 2214) 0.59 MG/DL eGFR AMER. (test cod e = 60004) 110 ML/MIN/1.73 eGFR NON- AMER. (test code = 39536) 95 ML/MIN/1.73 CALC BUN/CREAT (test code = 2235) 36 RATIO SODIUM (test code = 2231) 145 MEQ/L POTASSIUM (test code = 2228) 4.0 MEQ/L CHLORIDE (test code = 2215) 105 MEQ/L CARBON DIOXIDE (test code = 2206) 26 MEQ/L CALCIUM (test code = 2209) 9.7 MG/DL PROTEIN, TOTAL (test code = 2229) 7.2 G/DL ALBUMIN (test code = 2201) 4.2 G/DL CALC GLOBULIN (test code = 2240) 3.0 G/DL CALC A/G RATIO (test code = 2234) 1.4 RATIO BILIRUBIN, TOTAL (test code = 2207) <0.2 MG/DL ALKALINE PHOSPHATASE (test code = 2204) 88 U/L AST (test code = 2218) 16 U/L ALT (test code = 2219) 14 U/L HEMOGLOBIN [id number] 00:00:00* Test Item Value Reference Range Interpretation Comme nts HEMOGLOBIN A1c (test code = 22568) 6.4 % HEMOGLOBIN [id number] 00:00:00* Test Item Value Reference Range Interpretation Comme nts HEMOGLOBIN A1c (test code = 28630) 6.4 % HEMOGLOBIN [id number] 00:00:00* Test Item Value Reference Range Interpretation Comme nts HEMOGLOBIN A1c (test code = 62495) 6.4 % LIPID [id number] 00:00:00* Test Item Value Reference Range Interpretation Comme nts CHOLESTEROL (test code = 2210) 195 MG/DL TRIGLYCERIDES (test code = 2232) 241 MG/DL HDL CHOLESTEROL (test code = 2220) 44 MG/DL CALC LDL CHOL (test code = 2237) 103 MG/DL RISK RATIO LDL/HDL (test cod e = 2238) 2.34 RATIO LIPID [id number] 00:00:00* Test Item Value Reference Range Interpretation Comme nts CHOLESTEROL (test code = 2210) 195 MG/DL TRIGLYCERIDES (test code = 2232) 241 MG/DL HDL CHOLESTEROL (test code = 2220) 44 MG/DL CALC LDL CHOL (test code = 2237) 103 MG/DL RISK RATIO LDL/HDL (test cod e = 2238) 2.34 RATIO COMPREHENSIVE METABOLIC [id number] 00:00:00* Test Item Value Reference Range Interpretation Comme nts GLUCOSE (test code = 2217) 138 MG/DL BUN (test code = 2208) 21 MG/DL CREATININE (test code = 2214) 0.59 MG/DL eGFR AMER. (test cod e = 75433) 110 ML/MIN/1.73 eGFR NON- AMER. (test code = 60956) 95 ML/MIN/1.73 CALC BUN/CREAT (test code = 2235) 36 RATIO SODIUM (test code = 2231) 145 MEQ/L POTASSIUM (test code = 2228) 4.0 MEQ/L CHLORIDE (test code = 2215) 105 MEQ/L CARBON DIOXIDE (test code = 2206) 26 MEQ/L CALCIUM (test code = 2209) 9.7 MG/DL PROTEIN, TOTAL (test code = 2229) 7.2 G/DL ALBUMIN (test code = 2201) 4.2 G/DL CALC GLOBULIN (test code = 2240) 3.0 G/DL CALC A/G RATIO (test code = 2234) 1.4 RATIO BILIRUBIN, TOTAL (test code = 2207) <0.2 MG/DL ALKALINE PHOSPHATASE (test code = 2204) 88 U/L AST (test code = 2218) 16 U/L ALT (test code = 2219) 14 U/L COMPREHENSIVE METABOLIC [id number] 00:00:00* Test Item Value Reference Range Interpretation Comme nts GLUCOSE (test code = 2217) 138 MG/DL BUN (test code = 2208) 21 MG/DL CREATININE (test code = 2214) 0.59 MG/DL eGFR AMER. (test cod e = 46309) 110 ML/MIN/1.73 eGFR NON- AMER. (test code = 39999) 95 ML/MIN/1.73 CALC BUN/CREAT (test code = 2235) 36 RATIO SODIUM (test code = 2231) 145 MEQ/L POTASSIUM (test code = 2228) 4.0 MEQ/L CHLORIDE (test code = 2215) 105 MEQ/L CARBON DIOXIDE (test code = 2206) 26 MEQ/L CALCIUM (test code = 2209) 9.7 MG/DL PROTEIN, TOTAL (test code = 2229) 7.2 G/DL ALBUMIN (test code = 2201) 4.2 G/DL CALC GLOBULIN (test code = 2240) 3.0 G/DL CALC A/G RATIO (test code = 2234) 1.4 RATIO BILIRUBIN, TOTAL (test code = 2207) <0.2 MG/DL ALKALINE PHOSPHATASE (test code = 2204) 88 U/L AST (test code = 2218) 16 U/L ALT (test code = 2219) 14 U/L HEMOGLOBIN [id number] 00:00:00* Test Item Value Reference Range Interpretation Comme nts HEMOGLOBIN A1c (test code = 76558) 6.4 % HEMOGLOBIN [id number] 00:00:00* Test Item Value Reference Range Interpretation Comme nts HEMOGLOBIN A1c (test code = 43298) 6.4 % HEMOGLOBIN [id number] 00:00:00* Test Item Value Reference Range Interpretation Comme nts HEMOGLOBIN A1c (test code = 14496) 6.4 % LIPID [id number] 00:00:00* Test Item Value Reference Range Interpretation Comme nts CHOLESTEROL (test code = 2210) 195 MG/DL TRIGLYCERIDES (test code = 2232) 241 MG/DL HDL CHOLESTEROL (test code = 2220) 44 MG/DL CALC LDL CHOL (test code = 2237) 103 MG/DL RISK RATIO LDL/HDL (test cod e = 2238) 2.34 RATIO LIPID [id number] 00:00:00* Test Item Value Reference Range Interpretation Comme nts CHOLESTEROL (test code = 2210) 195 MG/DL TRIGLYCERIDES (test code = 2232) 241 MG/DL HDL CHOLESTEROL (test code = 2220) 44 MG/DL CALC LDL CHOL (test code = 2237) 103 MG/DL RISK RATIO LDL/HDL (test cod e = 2238) 2.34 RATIO COMPREHENSIVE METABOLIC [id number] 00:00:00* Test Item Value Reference Range Interpretation Comme nts GLUCOSE (test code = 2217) 138 MG/DL BUN (test code = 2208) 21 MG/DL CREATININE (test code = 2214) 0.59 MG/DL eGFR AMER. (test cod e = 30622) 110 ML/MIN/1.73 eGFR NON- AMER. (test code = 27588) 95 ML/MIN/1.73 CALC BUN/CREAT (test code = 2235) 36 RATIO SODIUM (test code = 2231) 145 MEQ/L POTASSIUM (test code = 2228) 4.0 MEQ/L CHLORIDE (test code = 2215) 105 MEQ/L CARBON DIOXIDE (test code = 2206) 26 MEQ/L CALCIUM (test code = 2209) 9.7 MG/DL PROTEIN, TOTAL (test code = 2229) 7.2 G/DL ALBUMIN (test code = 2201) 4.2 G/DL CALC GLOBULIN (test code = 2240) 3.0 G/DL CALC A/G RATIO (test code = 2234) 1.4 RATIO BILIRUBIN, TOTAL (test code = 2207) <0.2 MG/DL ALKALINE PHOSPHATASE (test code = 2204) 88 U/L AST (test code = 2218) 16 U/L ALT (test code = 2219) 14 U/L COMPREHENSIVE METABOLIC [id number] 00:00:00* Test Item Value Reference Range Interpretation Comme nts GLUCOSE (test code = 2217) 138 MG/DL BUN (test code = 2208) 21 MG/DL CREATININE (test code = 2214) 0.59 MG/DL eGFR AMER. (test cod e = 20653) 110 ML/MIN/1.73 eGFR NON- AMER. (test code = 64279) 95 ML/MIN/1.73 CALC BUN/CREAT (test code = 2235) 36 RATIO SODIUM (test code = 2231) 145 MEQ/L POTASSIUM (test code = 2228) 4.0 MEQ/L CHLORIDE (test code = 2215) 105 MEQ/L CARBON DIOXIDE (test code = 2206) 26 MEQ/L CALCIUM (test code = 2209) 9.7 MG/DL PROTEIN, TOTAL (test code = 2229) 7.2 G/DL ALBUMIN (test code = 2201) 4.2 G/DL CALC GLOBULIN (test code = 2240) 3.0 G/DL CALC A/G RATIO (test code = 2234) 1.4 RATIO BILIRUBIN, TOTAL (test code = 2207) <0.2 MG/DL ALKALINE PHOSPHATASE (test code = 2204) 88 U/L AST (test code = 2218) 16 U/L ALT (test code = 2219) 14 U/L HEMOGLOBIN [id number] 00:00:00* Test Item Value Reference Range Interpretation Comme nts HEMOGLOBIN A1c (test code = 14009) 6.4 % HEMOGLOBIN [id number] 00:00:00* Test Item Value Reference Range Interpretation Comme nts HEMOGLOBIN A1c (test code = 63279) 6.4 % HEMOGLOBIN [id number] 00:00:00* Test Item Value Reference Range Interpretation Comme nts HEMOGLOBIN A1c (test code = 46913) 6.4 % LIPID [id number] 00:00:00* Test Item Value Reference Range Interpretation Comme nts CHOLESTEROL (test code = 2210) 195 MG/DL TRIGLYCERIDES (test code = 2232) 241 MG/DL HDL CHOLESTEROL (test code = 2220) 44 MG/DL CALC LDL CHOL (test code = 2237) 103 MG/DL RISK RATIO LDL/HDL (test cod e = 2238) 2.34 RATIO LIPID [id number] 00:00:00* Test Item Value Reference Range Interpretation Comme nts CHOLESTEROL (test code = 2210) 195 MG/DL TRIGLYCERIDES (test code = 2232) 241 MG/DL HDL CHOLESTEROL (test code = 2220) 44 MG/DL CALC LDL CHOL (test code = 2237) 103 MG/DL RISK RATIO LDL/HDL (test cod e = 2238) 2.34 RATIO HEMOGLOBIN [id number] 00:00:00* Test Item Value Reference Range Interpretation Comme nts HEMOGLOBIN A1c (test code = 16276) 6.4 % COMPREHENSIVE METABOLIC [id number] 00:00:00* Test Item Value Reference Range Interpretation Comme nts GLUCOSE (test code = 2217) 138 MG/DL BUN (test code = 2208) 21 MG/DL CREATININE (test code = 2214) 0.59 MG/DL eGFR AMER. (test cod e = 51703) 110 ML/MIN/1.73 eGFR NON- AMER. (test code = 38696) 95 ML/MIN/1.73 CALC BUN/CREAT (test code = 2235) 36 RATIO SODIUM (test code = 2231) 145 MEQ/L POTASSIUM (test code = 2228) 4.0 MEQ/L CHLORIDE (test code = 2215) 105 MEQ/L CARBON DIOXIDE (test code = 2206) 26 MEQ/L CALCIUM (test code = 2209) 9.7 MG/DL PROTEIN, TOTAL (test code = 2229) 7.2 G/DL ALBUMIN (test code = 2201) 4.2 G/DL CALC GLOBULIN (test code = 2240) 3.0 G/DL CALC A/G RATIO (test code = 2234) 1.4 RATIO BILIRUBIN, TOTAL (test code = 2207) <0.2 MG/DL ALKALINE PHOSPHATASE (test code = 2204) 88 U/L AST (test code = 2218) 16 U/L ALT (test code = 2219) 14 U/L COMPREHENSIVE METABOLIC [id number] 00:00:00* Test Item Value Reference Range Interpretation Comme nts GLUCOSE (test code = 2217) 138 MG/DL BUN (test code = 2208) 21 MG/DL CREATININE (test code = 2214) 0.59 MG/DL eGFR AMER. (test cod e = 07550) 110 ML/MIN/1.73 eGFR NON- AMER. (test code = 28390) 95 ML/MIN/1.73 CALC BUN/CREAT (test code = 2235) 36 RATIO SODIUM (test code = 2231) 145 MEQ/L POTASSIUM (test code = 2228) 4.0 MEQ/L CHLORIDE (test code = 2215) 105 MEQ/L CARBON DIOXIDE (test code = 2206) 26 MEQ/L CALCIUM (test code = 2209) 9.7 MG/DL PROTEIN, TOTAL (test code = 2229) 7.2 G/DL ALBUMIN (test code = 2201) 4.2 G/DL CALC GLOBULIN (test code = 2240) 3.0 G/DL CALC A/G RATIO (test code = 2234) 1.4 RATIO BILIRUBIN, TOTAL (test code = 2207) <0.2 MG/DL ALKALINE PHOSPHATASE (test code = 2204) 88 U/L AST (test code = 2218) 16 U/L ALT (test code = 2219) 14 U/L HEMOGLOBIN [id number] 00:00:00* Test Item Value Reference Range Interpretation Comme nts HEMOGLOBIN A1c (test code = 57530) 6.4 % LIPID [id number] 00:00:00* Test Item Value Reference Range Interpretation Comme nts CHOLESTEROL (test code = 2210) 195 MG/DL TRIGLYCERIDES (test code = 2232) 241 MG/DL HDL CHOLESTEROL (test code = 2220) 44 MG/DL CALC LDL CHOL (test code = 2237) 103 MG/DL RISK RATIO LDL/HDL (test cod e = 2238) 2.34 RATIO COMPREHENSIVE METABOLIC [id number] 00:00:00* Test Item Value Reference Range Interpretation Comme nts GLUCOSE (test code = 2217) 138 MG/DL BUN (test code = 2208) 21 MG/DL CREATININE (test code = 2214) 0.59 MG/DL eGFR AMER. (test cod e = 76561) 110 ML/MIN/1.73 eGFR NON- AMER. (test code = 86431) 95 ML/MIN/1.73 CALC BUN/CREAT (test code = 2235) 36 RATIO SODIUM (test code = 2231) 145 MEQ/L POTASSIUM (test code = 2228) 4.0 MEQ/L CHLORIDE (test code = 2215) 105 MEQ/L CARBON DIOXIDE (test code = 2206) 26 MEQ/L CALCIUM (test code = 2209) 9.7 MG/DL PROTEIN, TOTAL (test code = 222) 7.2 G/DL ALBUMIN (test code = 2201) 4.2 G/DL CALC GLOBULIN (test code = 2240) 3.0 G/DL CALC A/G RATIO (test code = 2234) 1.4 RATIO BILIRUBIN, TOTAL (test code = 220) <0.2 MG/DL ALKALINE PHOSPHATASE (test code = 2204) 88 U/L AST (test code = 2217) 16 U/L ALT (test code = 221) 14 U/L HEMOGLOBIN [id number] 00:00:00* Test Item Value Reference Range Interpretation Comme nts HEMOGLOBIN A1c (test code = 04852) 6.4 % HEMOGLOBIN [id number] 00:00:00* Test Item Value Reference Range Interpretation Comme nts HEMOGLOBIN A1c (test code = 92129) 6.4 % HEMOGLOBIN [id number] 00:00:00* Test Item Value Reference Range Interpretation Comme nts HEMOGLOBIN A1c (test code = 97113) 6.4 % LIPID [id number] 00:00:00* Test Item Value Reference Range Interpretation Comme nts CHOLESTEROL (test code = 2210) 195 MG/DL TRIGLYCERIDES (test code = 2232) 241 MG/DL HDL CHOLESTEROL (test code = 2220) 44 MG/DL CALC LDL CHOL (test code = 2237) 103 MG/DL RISK RATIO LDL/HDL (test cod e = 2238) 2.34 RATIO LIPID [id number] 00:00:00* Test Item Value Reference Range Interpretation Comme nts CHOLESTEROL (test code = 2210) 195 MG/DL TRIGLYCERIDES (test code = 2232) 241 MG/DL HDL CHOLESTEROL (test code = 2220) 44 MG/DL CALC LDL CHOL (test code = 2237) 103 MG/DL RISK RATIO LDL/HDL (test cod e = 2238) 2.34 RATIO COMPREHENSIVE METABOLIC [id number] 00:00:00* Test Item Value Reference Range Interpretation Comme nts GLUCOSE (test code = 2217) 138 MG/DL BUN (test code = 2208) 21 MG/DL CREATININE (test code = 2214) 0.59 MG/DL eGFR AMER. (test cod e = 46671) 110 ML/MIN/1.73 eGFR NON- AMER. (test code = 88144) 95 ML/MIN/1.73 CALC BUN/CREAT (test code = 2235) 36 RATIO SODIUM (test code = 2231) 145 MEQ/L POTASSIUM (test code = 2228) 4.0 MEQ/L CHLORIDE (test code = 2215) 105 MEQ/L CARBON DIOXIDE (test code = 2206) 26 MEQ/L CALCIUM (test code = 2209) 9.7 MG/DL PROTEIN, TOTAL (test code = 2229) 7.2 G/DL ALBUMIN (test code = 2201) 4.2 G/DL CALC GLOBULIN (test code = 2240) 3.0 G/DL CALC A/G RATIO (test code = 2234) 1.4 RATIO BILIRUBIN, TOTAL (test code = 2207) <0.2 MG/DL ALKALINE PHOSPHATASE (test code = 2204) 88 U/L AST (test code = 2218) 16 U/L ALT (test code = 2219) 14 U/L COMPREHENSIVE METABOLIC [id number] 00:00:00* Test Item Value Reference Range Interpretation Comme nts GLUCOSE (test code = 2217) 138 MG/DL BUN (test code = 2208) 21 MG/DL CREATININE (test code = 2214) 0.59 MG/DL eGFR AMER. (test cod e = 05362) 110 ML/MIN/1.73 eGFR NON- AMER. (test code = 57885) 95 ML/MIN/1.73 CALC BUN/CREAT (test code = 2235) 36 RATIO SODIUM (test code = 2231) 145 MEQ/L POTASSIUM (test code = 2228) 4.0 MEQ/L CHLORIDE (test code = 2215) 105 MEQ/L CARBON DIOXIDE (test code = 2206) 26 MEQ/L CALCIUM (test code = 2209) 9.7 MG/DL PROTEIN, TOTAL (test code = 2229) 7.2 G/DL ALBUMIN (test code = 2201) 4.2 G/DL CALC GLOBULIN (test code = 2240) 3.0 G/DL CALC A/G RATIO (test code = 2234) 1.4 RATIO BILIRUBIN, TOTAL (test code = 2207) <0.2 MG/DL ALKALINE PHOSPHATASE (test code = 2204) 88 U/L AST (test code = 2218) 16 U/L ALT (test code = 2219) 14 U/L HEMOGLOBIN [id number] 00:00:00* Test Item Value Reference Range Interpretation Comme nts HEMOGLOBIN A1c (test code = 16489) 6.4 % HEMOGLOBIN [id number] 00:00:00* Test Item Value Reference Range Interpretation Comme nts HEMOGLOBIN A1c (test code = 23035) 6.4 % HEMOGLOBIN [id number] 00:00:00* Test Item Value Reference Range Interpretation Comme nts HEMOGLOBIN A1c (test code = 14012) 6.4 % LIPID [id number] 00:00:00* Test Item Value Reference Range Interpretation Comme nts CHOLESTEROL (test code = 2210) 195 MG/DL TRIGLYCERIDES (test code = 2232) 241 MG/DL HDL CHOLESTEROL (test code = 2220) 44 MG/DL CALC LDL CHOL (test code = 2237) 103 MG/DL RISK RATIO LDL/HDL (test cod e = 2238) 2.34 RATIO LIPID [id number] 00:00:00* Test Item Value Reference Range Interpretation Comme nts CHOLESTEROL (test code = 2210) 195 MG/DL TRIGLYCERIDES (test code = 2232) 241 MG/DL HDL CHOLESTEROL (test code = 2220) 44 MG/DL CALC LDL CHOL (test code = 2237) 103 MG/DL RISK RATIO LDL/HDL (test cod e = 2238) 2.34 RATIO COMPREHENSIVE METABOLIC [id number] 00:00:00* Test Item Value Reference Range Interpretation Comme nts GLUCOSE (test code = 2217) 138 MG/DL BUN (test code = 2208) 21 MG/DL CREATININE (test code = 2214) 0.59 MG/DL eGFR AMER. (test cod e = 06930) 110 ML/MIN/1.73 eGFR NON- AMER. (test code = 24625) 95 ML/MIN/1.73 CALC BUN/CREAT (test code = 2235) 36 RATIO SODIUM (test code = 2231) 145 MEQ/L POTASSIUM (test code = 2228) 4.0 MEQ/L CHLORIDE (test code = 2215) 105 MEQ/L CARBON DIOXIDE (test code = 2206) 26 MEQ/L CALCIUM (test code = 2209) 9.7 MG/DL PROTEIN, TOTAL (test code = 2229) 7.2 G/DL ALBUMIN (test code = 2201) 4.2 G/DL CALC GLOBULIN (test code = 2240) 3.0 G/DL CALC A/G RATIO (test code = 2234) 1.4 RATIO BILIRUBIN, TOTAL (test code = 2207) <0.2 MG/DL ALKALINE PHOSPHATASE (test code = 2204) 88 U/L AST (test code = 2218) 16 U/L ALT (test code = 2219) 14 U/L COMPREHENSIVE METABOLIC [id number] 00:00:00* Test Item Value Reference Range Interpretation Comme nts GLUCOSE (test code = 2217) 138 MG/DL BUN (test code = 2208) 21 MG/DL CREATININE (test code = 2214) 0.59 MG/DL eGFR AMER. (test cod e = 62422) 110 ML/MIN/1.73 eGFR NON- AMER. (test code = 14909) 95 ML/MIN/1.73 CALC BUN/CREAT (test code = 2235) 36 RATIO SODIUM (test code = 2231) 145 MEQ/L POTASSIUM (test code = 2228) 4.0 MEQ/L CHLORIDE (test code = 2215) 105 MEQ/L CARBON DIOXIDE (test code = 2206) 26 MEQ/L CALCIUM (test code = 2209) 9.7 MG/DL PROTEIN, TOTAL (test code = 2229) 7.2 G/DL ALBUMIN (test code = 2201) 4.2 G/DL CALC GLOBULIN (test code = 2240) 3.0 G/DL CALC A/G RATIO (test code = 2234) 1.4 RATIO BILIRUBIN, TOTAL (test code = 2207) <0.2 MG/DL ALKALINE PHOSPHATASE (test code = 2204) 88 U/L AST (test code = 2218) 16 U/L ALT (test code = 2219) 14 U/L HEMOGLOBIN [id number] 00:00:00* Test Item Value Reference Range Interpretation Comme nts HEMOGLOBIN A1c (test code = 17392) 6.4 % HEMOGLOBIN [id number] 00:00:00* Test Item Value Reference Range Interpretation Comme nts HEMOGLOBIN A1c (test code = 34292) 6.4 % HEMOGLOBIN [id number] 00:00:00* Test Item Value Reference Range Interpretation Comme nts HEMOGLOBIN A1c (test code = 11146) 6.4 % LIPID [id number] 00:00:00* Test Item Value Reference Range Interpretation Comme nts CHOLESTEROL (test code = 2210) 195 MG/DL TRIGLYCERIDES (test code = 2232) 241 MG/DL HDL CHOLESTEROL (test code = 2220) 44 MG/DL CALC LDL CHOL (test code = 2237) 103 MG/DL RISK RATIO LDL/HDL (test cod e = 2238) 2.34 RATIO LIPID [id number] 00:00:00* Test Item Value Reference Range Interpretation Comme nts CHOLESTEROL (test code = 2210) 195 MG/DL TRIGLYCERIDES (test code = 2232) 241 MG/DL HDL CHOLESTEROL (test code = 2220) 44 MG/DL CALC LDL CHOL (test code = 2237) 103 MG/DL RISK RATIO LDL/HDL (test cod e = 2238) 2.34 RATIO COMPREHENSIVE METABOLIC [id number] 00:00:00* Test Item Value Reference Range Interpretation Comme nts GLUCOSE (test code = 2217) 138 MG/DL BUN (test code = 2208) 21 MG/DL CREATININE (test code = 2214) 0.59 MG/DL eGFR AMER. (test cod e = 51199) 110 ML/MIN/1.73 eGFR NON- AMER. (test code = 51866) 95 ML/MIN/1.73 CALC BUN/CREAT (test code = 2235) 36 RATIO SODIUM (test code = 2231) 145 MEQ/L POTASSIUM (test code = 2228) 4.0 MEQ/L CHLORIDE (test code = 2215) 105 MEQ/L CARBON DIOXIDE (test code = 2206) 26 MEQ/L CALCIUM (test code = 2209) 9.7 MG/DL PROTEIN, TOTAL (test code = 2229) 7.2 G/DL ALBUMIN (test code = 2201) 4.2 G/DL CALC GLOBULIN (test code = 2240) 3.0 G/DL CALC A/G RATIO (test code = 2234) 1.4 RATIO BILIRUBIN, TOTAL (test code = 2207) <0.2 MG/DL ALKALINE PHOSPHATASE (test code = 2204) 88 U/L AST (test code = 2218) 16 U/L ALT (test code = 2219) 14 U/L COMPREHENSIVE METABOLIC [id number] 00:00:00* Test Item Value Reference Range Interpretation Comme nts GLUCOSE (test code = 2217) 138 MG/DL BUN (test code = 2208) 21 MG/DL CREATININE (test code = 2214) 0.59 MG/DL eGFR AMER. (test cod e = 87485) 110 ML/MIN/1.73 eGFR NON- AMER. (test code = 75320) 95 ML/MIN/1.73 CALC BUN/CREAT (test code = 2235) 36 RATIO SODIUM (test code = 2231) 145 MEQ/L POTASSIUM (test code = 2228) 4.0 MEQ/L CHLORIDE (test code = 2215) 105 MEQ/L CARBON DIOXIDE (test code = 2206) 26 MEQ/L CALCIUM (test code = 2209) 9.7 MG/DL PROTEIN, TOTAL (test code = 2229) 7.2 G/DL ALBUMIN (test code = 2201) 4.2 G/DL CALC GLOBULIN (test code = 2240) 3.0 G/DL CALC A/G RATIO (test code = 2234) 1.4 RATIO BILIRUBIN, TOTAL (test code = 2207) <0.2 MG/DL ALKALINE PHOSPHATASE (test code = 2204) 88 U/L AST (test code = 2218) 16 U/L ALT (test code = 2219) 14 U/L HEMOGLOBIN [id number] 00:00:00* Test Item Value Reference Range Interpretation Comme nts HEMOGLOBIN A1c (test code = 81239) 6.4 % HEMOGLOBIN [id number] 00:00:00* Test Item Value Reference Range Interpretation Comme nts HEMOGLOBIN A1c (test code = 82628) 6.4 % LIPID [id number] 00:00:00* Test Item Value Reference Range Interpretation Comme nts CHOLESTEROL (test code = 2210) 195 MG/DL TRIGLYCERIDES (test code = 2232) 241 MG/DL HDL CHOLESTEROL (test code = 2220) 44 MG/DL CALC LDL CHOL (test code = 2237) 103 MG/DL RISK RATIO LDL/HDL (test cod e = 2238) 2.34 RATIO COMPREHENSIVE METABOLIC [id number] 00:00:00* Test Item Value Reference Range Interpretation Comme nts GLUCOSE (test code = 2217) 138 MG/DL BUN (test code = 2208) 21 MG/DL CREATININE (test code = 2214) 0.59 MG/DL eGFR AMER. (test cod e = 13010) 110 ML/MIN/1.73 eGFR NON- AMER. (test code = 42734) 95 ML/MIN/1.73 CALC BUN/CREAT (test code = 2235) 36 RATIO SODIUM (test code = 2231) 145 MEQ/L POTASSIUM (test code = 2228) 4.0 MEQ/L CHLORIDE (test code = 2215) 105 MEQ/L CARBON DIOXIDE (test code = 2206) 26 MEQ/L CALCIUM (test code = 2209) 9.7 MG/DL PROTEIN, TOTAL (test code = 2229) 7.2 G/DL ALBUMIN (test code = 2201) 4.2 G/DL CALC GLOBULIN (test code = 2240) 3.0 G/DL CALC A/G RATIO (test code = 2234) 1.4 RATIO BILIRUBIN, TOTAL (test code = 2207) <0.2 MG/DL ALKALINE PHOSPHATASE (test code = 2204) 88 U/L AST (test code = 2218) 16 U/L ALT (test code = 2219) 14 U/L LIPID [id number] 00:00:00* Test Item Value Reference Range Interpretation Comme nts CHOLESTEROL (test code = 2210) 195 MG/DL TRIGLYCERIDES (test code = 2232) 241 MG/DL HDL CHOLESTEROL (test code = 2220) 44 MG/DL CALC LDL CHOL (test code = 2237) 103 MG/DL RISK RATIO LDL/HDL (test cod e = 2238) 2.34 RATIO Toney F AustinLIPID [id number] 00:00:00* Test Item Value Reference Range Interpretation Comme nts CHOLESTEROL (test code = 2210) 204 MG/DL TRIGLYCERIDES (test code = 2232) 121 MG/DL HDL CHOLESTEROL (test code = 2220) 50 MG/DL CALC LDL CHOL (test code = 2237) 130 MG/DL RISK RATIO LDL/HDL (test cod e = 2238) 2.60 RATIO Toney Cowan AustinHEMOGLOBIN [id number] 00:00:00* Test Item Value Reference Range Interpretation Comme nts HEMOGLOBIN A1c (test code = 61275) 8.3 % HEMOGLOBIN [id number] 00:00:00* Test Item Value Reference Range Interpretation Comme nts HEMOGLOBIN A1c (test code = 68860) 8.3 % COMPREHENSIVE METABOLIC [id number] 00:00:00* Test Item Value Reference Range Interpretation Comme nts GLUCOSE (test code = 2217) 131 MG/DL BUN (test code = 2208) 16 MG/DL CREATININE (test code = 2214) 0.51 MG/DL eGFR AMER. (test cod e = 70250) 116 ML/MIN/1.73 eGFR NON- AMER. (test code = 17946) 100 ML/MIN/1.73 CALC BUN/CREAT (test code = 2235) 31 RATIO SODIUM (test code = 2231) 143 MEQ/L POTASSIUM (test code = 2228) 4.0 MEQ/L CHLORIDE (test code = 2215) 103 MEQ/L CARBON DIOXIDE (test code = 2206) 27 MEQ/L CALCIUM (test code = 2209) 9.4 MG/DL PROTEIN, TOTAL (test code = 2229) 7.5 G/DL ALBUMIN (test code = 2201) 4.4 G/DL CALC GLOBULIN (test code = 2240) 3.1 G/DL CALC A/G RATIO (test code = 2234) 1.4 RATIO BILIRUBIN, TOTAL (test code = 2207) 0.3 MG/DL ALKALINE PHOSPHATASE (test code = 2204) 83 U/L AST (test code = 2218) 23 U/L ALT (test code = 2219) 27 U/L LIPID [id number] 00:00:00* Test Item Value Reference Range Interpretation Comme nts CHOLESTEROL (test code = 2210) 204 MG/DL TRIGLYCERIDES (test code = 2232) 121 MG/DL HDL CHOLESTEROL (test code = 2220) 50 MG/DL CALC LDL CHOL (test code = 2237) 130 MG/DL RISK RATIO LDL/HDL (test cod e = 2238) 2.60 RATIO HEMOGLOBIN [id number] 00:00:00* Test Item Value Reference Range Interpretation Comme nts HEMOGLOBIN A1c (test code = 84095) 8.3 % HEMOGLOBIN [id number] 00:00:00* Test Item Value Reference Range Interpretation Comme nts HEMOGLOBIN A1c (test code = 47211) 8.3 % HEMOGLOBIN [id number] 00:00:00* Test Item Value Reference Range Interpretation Comme nts HEMOGLOBIN A1c (test code = 16540) 8.3 % COMPREHENSIVE METABOLIC [id number] 00:00:00* Test Item Value Reference Range Interpretation Comme nts GLUCOSE (test code = 2217) 131 MG/DL BUN (test code = 2208) 16 MG/DL CREATININE (test code = 2214) 0.51 MG/DL eGFR AMER. (test cod e = 57780) 116 ML/MIN/1.73 eGFR NON- AMER. (test code = 92464) 100 ML/MIN/1.73 CALC BUN/CREAT (test code = 2235) 31 RATIO SODIUM (test code = 2231) 143 MEQ/L POTASSIUM (test code = 2228) 4.0 MEQ/L CHLORIDE (test code = 2215) 103 MEQ/L CARBON DIOXIDE (test code = 2206) 27 MEQ/L CALCIUM (test code = 2209) 9.4 MG/DL PROTEIN, TOTAL (test code = 2229) 7.5 G/DL ALBUMIN (test code = 2201) 4.4 G/DL CALC GLOBULIN (test code = 2240) 3.1 G/DL CALC A/G RATIO (test code = 2234) 1.4 RATIO BILIRUBIN, TOTAL (test code = 2207) 0.3 MG/DL ALKALINE PHOSPHATASE (test code = 2204) 83 U/L AST (test code = 2218) 23 U/L ALT (test code = 2219) 27 U/L COMPREHENSIVE METABOLIC [id number] 00:00:00* Test Item Value Reference Range Interpretation Comme nts GLUCOSE (test code = 2217) 131 MG/DL BUN (test code = 2208) 16 MG/DL CREATININE (test code = 2214) 0.51 MG/DL eGFR AMER. (test cod e = 07329) 116 ML/MIN/1.73 eGFR NON- AMER. (test code = 41524) 100 ML/MIN/1.73 CALC BUN/CREAT (test code = 2235) 31 RATIO SODIUM (test code = 2231) 143 MEQ/L POTASSIUM (test code = 2228) 4.0 MEQ/L CHLORIDE (test code = 2215) 103 MEQ/L CARBON DIOXIDE (test code = 2206) 27 MEQ/L CALCIUM (test code = 2209) 9.4 MG/DL PROTEIN, TOTAL (test code = 2229) 7.5 G/DL ALBUMIN (test code = 2201) 4.4 G/DL CALC GLOBULIN (test code = 2240) 3.1 G/DL CALC A/G RATIO (test code = 2234) 1.4 RATIO BILIRUBIN, TOTAL (test code = 2207) 0.3 MG/DL ALKALINE PHOSPHATASE (test code = 2204) 83 U/L AST (test code = 2218) 23 U/L ALT (test code = 2219) 27 U/L LIPID [id number] 00:00:00* Test Item Value Reference Range Interpretation Comme nts CHOLESTEROL (test code = 2210) 204 MG/DL TRIGLYCERIDES (test code = 2232) 121 MG/DL HDL CHOLESTEROL (test code = 2220) 50 MG/DL CALC LDL CHOL (test code = 2237) 130 MG/DL RISK RATIO LDL/HDL (test cod e = 2238) 2.60 RATIO LIPID [id number] 00:00:00* Test Item Value Reference Range Interpretation Comme nts CHOLESTEROL (test code = 2210) 204 MG/DL TRIGLYCERIDES (test code = 2232) 121 MG/DL HDL CHOLESTEROL (test code = 2220) 50 MG/DL CALC LDL CHOL (test code = 2237) 130 MG/DL RISK RATIO LDL/HDL (test cod e = 2238) 2.60 RATIO HEMOGLOBIN [id number] 00:00:00* Test Item Value Reference Range Interpretation Comme nts HEMOGLOBIN A1c (test code = 24950) 8.3 % HEMOGLOBIN [id number] 00:00:00* Test Item Value Reference Range Interpretation Comme nts HEMOGLOBIN A1c (test code = 32423) 8.3 % HEMOGLOBIN [id number] 00:00:00* Test Item Value Reference Range Interpretation Comme nts HEMOGLOBIN A1c (test code = 34412) 8.3 % COMPREHENSIVE METABOLIC [id number] 00:00:00* Test Item Value Reference Range Interpretation Comme nts GLUCOSE (test code = 2217) 131 MG/DL BUN (test code = 2208) 16 MG/DL CREATININE (test code = 2214) 0.51 MG/DL eGFR AMER. (test cod e = 90557) 116 ML/MIN/1.73 eGFR NON- AMER. (test code = 41826) 100 ML/MIN/1.73 CALC BUN/CREAT (test code = 2235) 31 RATIO SODIUM (test code = 2231) 143 MEQ/L POTASSIUM (test code = 2228) 4.0 MEQ/L CHLORIDE (test code = 2215) 103 MEQ/L CARBON DIOXIDE (test code = 2206) 27 MEQ/L CALCIUM (test code = 2209) 9.4 MG/DL PROTEIN, TOTAL (test code = 2229) 7.5 G/DL ALBUMIN (test code = 2201) 4.4 G/DL CALC GLOBULIN (test code = 2240) 3.1 G/DL CALC A/G RATIO (test code = 2234) 1.4 RATIO BILIRUBIN, TOTAL (test code = 2207) 0.3 MG/DL ALKALINE PHOSPHATASE (test code = 2204) 83 U/L AST (test code = 2218) 23 U/L ALT (test code = 2219) 27 U/L COMPREHENSIVE METABOLIC [id number] 00:00:00* Test Item Value Reference Range Interpretation Comme nts GLUCOSE (test code = 2217) 131 MG/DL BUN (test code = 2208) 16 MG/DL CREATININE (test code = 2214) 0.51 MG/DL eGFR AMER. (test cod e = 22751) 116 ML/MIN/1.73 eGFR NON- AMER. (test code = 68368) 100 ML/MIN/1.73 CALC BUN/CREAT (test code = 2235) 31 RATIO SODIUM (test code = 2231) 143 MEQ/L POTASSIUM (test code = 2228) 4.0 MEQ/L CHLORIDE (test code = 2215) 103 MEQ/L CARBON DIOXIDE (test code = 2206) 27 MEQ/L CALCIUM (test code = 2209) 9.4 MG/DL PROTEIN, TOTAL (test code = 2229) 7.5 G/DL ALBUMIN (test code = 2201) 4.4 G/DL CALC GLOBULIN (test code = 2240) 3.1 G/DL CALC A/G RATIO (test code = 2234) 1.4 RATIO BILIRUBIN, TOTAL (test code = 2207) 0.3 MG/DL ALKALINE PHOSPHATASE (test code = 2204) 83 U/L AST (test code = 2218) 23 U/L ALT (test code = 2219) 27 U/L LIPID [id number] 00:00:00* Test Item Value Reference Range Interpretation Comme nts CHOLESTEROL (test code = 2210) 204 MG/DL TRIGLYCERIDES (test code = 2232) 121 MG/DL HDL CHOLESTEROL (test code = 2220) 50 MG/DL CALC LDL CHOL (test code = 2237) 130 MG/DL RISK RATIO LDL/HDL (test cod e = 2238) 2.60 RATIO LIPID [id number] 00:00:00* Test Item Value Reference Range Interpretation Comme nts CHOLESTEROL (test code = 2210) 204 MG/DL TRIGLYCERIDES (test code = 2232) 121 MG/DL HDL CHOLESTEROL (test code = 2220) 50 MG/DL CALC LDL CHOL (test code = 2237) 130 MG/DL RISK RATIO LDL/HDL (test cod e = 2238) 2.60 RATIO HEMOGLOBIN [id number] 00:00:00* Test Item Value Reference Range Interpretation Comme nts HEMOGLOBIN A1c (test code = 75319) 8.3 % HEMOGLOBIN [id number] 00:00:00* Test Item Value Reference Range Interpretation Comme nts HEMOGLOBIN A1c (test code = 91876) 8.3 % HEMOGLOBIN [id number] 00:00:00* Test Item Value Reference Range Interpretation Comme nts HEMOGLOBIN A1c (test code = 97734) 8.3 % HEMOGLOBIN [id number] 00:00:00* Test Item Value Reference Range Interpretation Comme nts HEMOGLOBIN A1c (test code = 16966) 8.3 % COMPREHENSIVE METABOLIC [id number] 00:00:00* Test Item Value Reference Range Interpretation Comme nts GLUCOSE (test code = 2217) 131 MG/DL BUN (test code = 2208) 16 MG/DL CREATININE (test code = 2214) 0.51 MG/DL eGFR AMER. (test cod e = 80900) 116 ML/MIN/1.73 eGFR NON- AMER. (test code = 85432) 100 ML/MIN/1.73 CALC BUN/CREAT (test code = 2235) 31 RATIO SODIUM (test code = 2231) 143 MEQ/L POTASSIUM (test code = 2228) 4.0 MEQ/L CHLORIDE (test code = 2215) 103 MEQ/L CARBON DIOXIDE (test code = 2206) 27 MEQ/L CALCIUM (test code = 2209) 9.4 MG/DL PROTEIN, TOTAL (test code = 2229) 7.5 G/DL ALBUMIN (test code = 2201) 4.4 G/DL CALC GLOBULIN (test code = 2240) 3.1 G/DL CALC A/G RATIO (test code = 2234) 1.4 RATIO BILIRUBIN, TOTAL (test code = 2207) 0.3 MG/DL ALKALINE PHOSPHATASE (test code = 2204) 83 U/L AST (test code = 2218) 23 U/L ALT (test code = 2219) 27 U/L COMPREHENSIVE METABOLIC [id number] 00:00:00* Test Item Value Reference Range Interpretation Comme nts GLUCOSE (test code = 2217) 131 MG/DL BUN (test code = 2208) 16 MG/DL CREATININE (test code = 2214) 0.51 MG/DL eGFR AMER. (test cod e = 15195) 116 ML/MIN/1.73 eGFR NON- AMER. (test code = 50644) 100 ML/MIN/1.73 CALC BUN/CREAT (test code = 2235) 31 RATIO SODIUM (test code = 2231) 143 MEQ/L POTASSIUM (test code = 2228) 4.0 MEQ/L CHLORIDE (test code = 2215) 103 MEQ/L CARBON DIOXIDE (test code = 2206) 27 MEQ/L CALCIUM (test code = 2209) 9.4 MG/DL PROTEIN, TOTAL (test code = 2229) 7.5 G/DL ALBUMIN (test code = 2201) 4.4 G/DL CALC GLOBULIN (test code = 2240) 3.1 G/DL CALC A/G RATIO (test code = 2234) 1.4 RATIO BILIRUBIN, TOTAL (test code = 2207) 0.3 MG/DL ALKALINE PHOSPHATASE (test code = 2204) 83 U/L AST (test code = 2218) 23 U/L ALT (test code = 2219) 27 U/L LIPID [id number] 00:00:00* Test Item Value Reference Range Interpretation Comme nts CHOLESTEROL (test code = 2210) 204 MG/DL TRIGLYCERIDES (test code = 2232) 121 MG/DL HDL CHOLESTEROL (test code = 2220) 50 MG/DL CALC LDL CHOL (test code = 2237) 130 MG/DL RISK RATIO LDL/HDL (test cod e = 2238) 2.60 RATIO LIPID [id number] 00:00:00* Test Item Value Reference Range Interpretation Comme nts CHOLESTEROL (test code = 2210) 204 MG/DL TRIGLYCERIDES (test code = 2232) 121 MG/DL HDL CHOLESTEROL (test code = 2220) 50 MG/DL CALC LDL CHOL (test code = 2237) 130 MG/DL RISK RATIO LDL/HDL (test cod e = 2238) 2.60 RATIO HEMOGLOBIN [id number] 00:00:00* Test Item Value Reference Range Interpretation Comme nts HEMOGLOBIN A1c (test code = 33649) 8.3 % COMPREHENSIVE METABOLIC [id number] 00:00:00* Test Item Value Reference Range Interpretation Comme nts GLUCOSE (test code = 2217) 131 MG/DL BUN (test code = 2208) 16 MG/DL CREATININE (test code = 2214) 0.51 MG/DL eGFR AMER. (test cod e = 81979) 116 ML/MIN/1.73 eGFR NON- AMER. (test code = 05973) 100 ML/MIN/1.73 CALC BUN/CREAT (test code = 2235) 31 RATIO SODIUM (test code = 2231) 143 MEQ/L POTASSIUM (test code = 2228) 4.0 MEQ/L CHLORIDE (test code = 2215) 103 MEQ/L CARBON DIOXIDE (test code = 2206) 27 MEQ/L CALCIUM (test code = 2209) 9.4 MG/DL PROTEIN, TOTAL (test code = 2229) 7.5 G/DL ALBUMIN (test code = 2201) 4.4 G/DL CALC GLOBULIN (test code = 2240) 3.1 G/DL CALC A/G RATIO (test code = 2234) 1.4 RATIO BILIRUBIN, TOTAL (test code = 2207) 0.3 MG/DL ALKALINE PHOSPHATASE (test code = 2204) 83 U/L AST (test code = 2218) 23 U/L ALT (test code = 2219) 27 U/L HEMOGLOBIN [id number] 00:00:00* Test Item Value Reference Range Interpretation Comme nts HEMOGLOBIN A1c (test code = 34452) 8.3 % HEMOGLOBIN [id number] 00:00:00* Test Item Value Reference Range Interpretation Comme nts HEMOGLOBIN A1c (test code = 92670) 8.3 % HEMOGLOBIN [id number] 00:00:00* Test Item Value Reference Range Interpretation Comme nts HEMOGLOBIN A1c (test code = 79145) 8.3 % LIPID [id number] 00:00:00* Test Item Value Reference Range Interpretation Comme nts CHOLESTEROL (test code = 2210) 204 MG/DL TRIGLYCERIDES (test code = 2232) 121 MG/DL HDL CHOLESTEROL (test code = 2220) 50 MG/DL CALC LDL CHOL (test code = 2237) 130 MG/DL RISK RATIO LDL/HDL (test cod e = 2238) 2.60 RATIO COMPREHENSIVE METABOLIC [id number] 00:00:00* Test Item Value Reference Range Interpretation Comme nts GLUCOSE (test code = 2217) 131 MG/DL BUN (test code = 2208) 16 MG/DL CREATININE (test code = 2214) 0.51 MG/DL eGFR AMER. (test cod e = 44534) 116 ML/MIN/1.73 eGFR NON- AMER. (test code = 82660) 100 ML/MIN/1.73 CALC BUN/CREAT (test code = 2235) 31 RATIO SODIUM (test code = 2231) 143 MEQ/L POTASSIUM (test code = 2228) 4.0 MEQ/L CHLORIDE (test code = 2215) 103 MEQ/L CARBON DIOXIDE (test code = 2206) 27 MEQ/L CALCIUM (test code = 2209) 9.4 MG/DL PROTEIN, TOTAL (test code = 2229) 7.5 G/DL ALBUMIN (test code = 2201) 4.4 G/DL CALC GLOBULIN (test code = 2240) 3.1 G/DL CALC A/G RATIO (test code = 2234) 1.4 RATIO BILIRUBIN, TOTAL (test code = 2207) 0.3 MG/DL ALKALINE PHOSPHATASE (test code = 2204) 83 U/L AST (test code = 2218) 23 U/L ALT (test code = 2219) 27 U/L COMPREHENSIVE METABOLIC [id number] 00:00:00* Test Item Value Reference Range Interpretation Comme nts GLUCOSE (test code = 2217) 131 MG/DL BUN (test code = 2208) 16 MG/DL CREATININE (test code = 2214) 0.51 MG/DL eGFR AMER. (test cod e = 49508) 116 ML/MIN/1.73 eGFR NON- AMER. (test code = 67959) 100 ML/MIN/1.73 CALC BUN/CREAT (test code = 2235) 31 RATIO SODIUM (test code = 2231) 143 MEQ/L POTASSIUM (test code = 2228) 4.0 MEQ/L CHLORIDE (test code = 2215) 103 MEQ/L CARBON DIOXIDE (test code = 2206) 27 MEQ/L CALCIUM (test code = 2209) 9.4 MG/DL PROTEIN, TOTAL (test code = 2229) 7.5 G/DL ALBUMIN (test code = 2201) 4.4 G/DL CALC GLOBULIN (test code = 2240) 3.1 G/DL CALC A/G RATIO (test code = 2234) 1.4 RATIO BILIRUBIN, TOTAL (test code = 2207) 0.3 MG/DL ALKALINE PHOSPHATASE (test code = 2204) 83 U/L AST (test code = 2218) 23 U/L ALT (test code = 2219) 27 U/L LIPID [id number] 00:00:00* Test Item Value Reference Range Interpretation Comme nts CHOLESTEROL (test code = 2210) 204 MG/DL TRIGLYCERIDES (test code = 2232) 121 MG/DL HDL CHOLESTEROL (test code = 2220) 50 MG/DL CALC LDL CHOL (test code = 2237) 130 MG/DL RISK RATIO LDL/HDL (test cod e = 2238) 2.60 RATIO LIPID [id number] 00:00:00* Test Item Value Reference Range Interpretation Comme nts CHOLESTEROL (test code = 2210) 204 MG/DL TRIGLYCERIDES (test code = 2232) 121 MG/DL HDL CHOLESTEROL (test code = 2220) 50 MG/DL CALC LDL CHOL (test code = 2237) 130 MG/DL RISK RATIO LDL/HDL (test cod e = 2238) 2.60 RATIO HEMOGLOBIN [id number] 00:00:00* Test Item Value Reference Range Interpretation Comme nts HEMOGLOBIN A1c (test code = 29945) 8.3 % HEMOGLOBIN [id number] 00:00:00* Test Item Value Reference Range Interpretation Comme nts HEMOGLOBIN A1c (test code = 05364) 8.3 % HEMOGLOBIN [id number] 00:00:00* Test Item Value Reference Range Interpretation Comme nts HEMOGLOBIN A1c (test code = 20403) 8.3 % COMPREHENSIVE METABOLIC [id number] 00:00:00* Test Item Value Reference Range Interpretation Comme nts GLUCOSE (test code = 2217) 131 MG/DL BUN (test code = 2208) 16 MG/DL CREATININE (test code = 2214) 0.51 MG/DL eGFR AMER. (test cod e = 84648) 116 ML/MIN/1.73 eGFR NON- AMER. (test code = 65060) 100 ML/MIN/1.73 CALC BUN/CREAT (test code = 2235) 31 RATIO SODIUM (test code = 2231) 143 MEQ/L POTASSIUM (test code = 2228) 4.0 MEQ/L CHLORIDE (test code = 2215) 103 MEQ/L CARBON DIOXIDE (test code = 2206) 27 MEQ/L CALCIUM (test code = 2209) 9.4 MG/DL PROTEIN, TOTAL (test code = 2229) 7.5 G/DL ALBUMIN (test code = 2201) 4.4 G/DL CALC GLOBULIN (test code = 2240) 3.1 G/DL CALC A/G RATIO (test code = 2234) 1.4 RATIO BILIRUBIN, TOTAL (test code = 2207) 0.3 MG/DL ALKALINE PHOSPHATASE (test code = 2204) 83 U/L AST (test code = 2218) 23 U/L ALT (test code = 2219) 27 U/L COMPREHENSIVE METABOLIC [id number] 00:00:00* Test Item Value Reference Range Interpretation Comme nts GLUCOSE (test code = 2217) 131 MG/DL BUN (test code = 2208) 16 MG/DL CREATININE (test code = 2214) 0.51 MG/DL eGFR AMER. (test cod e = 37413) 116 ML/MIN/1.73 eGFR NON- AMER. (test code = 98488) 100 ML/MIN/1.73 CALC BUN/CREAT (test code = 2235) 31 RATIO SODIUM (test code = 2231) 143 MEQ/L POTASSIUM (test code = 2228) 4.0 MEQ/L CHLORIDE (test code = 2215) 103 MEQ/L CARBON DIOXIDE (test code = 2206) 27 MEQ/L CALCIUM (test code = 2209) 9.4 MG/DL PROTEIN, TOTAL (test code = 2229) 7.5 G/DL ALBUMIN (test code = 2201) 4.4 G/DL CALC GLOBULIN (test code = 2240) 3.1 G/DL CALC A/G RATIO (test code = 2234) 1.4 RATIO BILIRUBIN, TOTAL (test code = 2207) 0.3 MG/DL ALKALINE PHOSPHATASE (test code = 2204) 83 U/L AST (test code = 2218) 23 U/L ALT (test code = 2219) 27 U/L LIPID [id number] 00:00:00* Test Item Value Reference Range Interpretation Comme nts CHOLESTEROL (test code = 2210) 204 MG/DL TRIGLYCERIDES (test code = 2232) 121 MG/DL HDL CHOLESTEROL (test code = 2220) 50 MG/DL CALC LDL CHOL (test code = 2237) 130 MG/DL RISK RATIO LDL/HDL (test cod e = 2238) 2.60 RATIO LIPID [id number] 00:00:00* Test Item Value Reference Range Interpretation Comme nts CHOLESTEROL (test code = 2210) 204 MG/DL TRIGLYCERIDES (test code = 2232) 121 MG/DL HDL CHOLESTEROL (test code = 2220) 50 MG/DL CALC LDL CHOL (test code = 2237) 130 MG/DL RISK RATIO LDL/HDL (test cod e = 2238) 2.60 RATIO HEMOGLOBIN [id number] 00:00:00* Test Item Value Reference Range Interpretation Comme nts HEMOGLOBIN A1c (test code = 34919) 8.3 % HEMOGLOBIN [id number] 00:00:00* Test Item Value Reference Range Interpretation Comme nts HEMOGLOBIN A1c (test code = 91362) 8.3 % HEMOGLOBIN [id number] 00:00:00* Test Item Value Reference Range Interpretation Comme nts HEMOGLOBIN A1c (test code = 61849) 8.3 % COMPREHENSIVE METABOLIC [id number] 00:00:00* Test Item Value Reference Range Interpretation Comme nts GLUCOSE (test code = 2217) 131 MG/DL BUN (test code = 2208) 16 MG/DL CREATININE (test code = 2214) 0.51 MG/DL eGFR AMER. (test cod e = 80271) 116 ML/MIN/1.73 eGFR NON- AMER. (test code = 76213) 100 ML/MIN/1.73 CALC BUN/CREAT (test code = 2235) 31 RATIO SODIUM (test code = 2231) 143 MEQ/L POTASSIUM (test code = 2228) 4.0 MEQ/L CHLORIDE (test code = 2215) 103 MEQ/L CARBON DIOXIDE (test code = 2206) 27 MEQ/L CALCIUM (test code = 2209) 9.4 MG/DL PROTEIN, TOTAL (test code = 2229) 7.5 G/DL ALBUMIN (test code = 2201) 4.4 G/DL CALC GLOBULIN (test code = 2240) 3.1 G/DL CALC A/G RATIO (test code = 2234) 1.4 RATIO BILIRUBIN, TOTAL (test code = 2207) 0.3 MG/DL ALKALINE PHOSPHATASE (test code = 2204) 83 U/L AST (test code = 2218) 23 U/L ALT (test code = 2219) 27 U/L COMPREHENSIVE METABOLIC [id number] 00:00:00* Test Item Value Reference Range Interpretation Comme nts GLUCOSE (test code = 2217) 131 MG/DL BUN (test code = 2208) 16 MG/DL CREATININE (test code = 2214) 0.51 MG/DL eGFR AMER. (test cod e = 18067) 116 ML/MIN/1.73 eGFR NON- AMER. (test code = 25302) 100 ML/MIN/1.73 CALC BUN/CREAT (test code = 2235) 31 RATIO SODIUM (test code = 2231) 143 MEQ/L POTASSIUM (test code = 2228) 4.0 MEQ/L CHLORIDE (test code = 2215) 103 MEQ/L CARBON DIOXIDE (test code = 2206) 27 MEQ/L CALCIUM (test code = 2209) 9.4 MG/DL PROTEIN, TOTAL (test code = 2229) 7.5 G/DL ALBUMIN (test code = 2201) 4.4 G/DL CALC GLOBULIN (test code = 2240) 3.1 G/DL CALC A/G RATIO (test code = 2234) 1.4 RATIO BILIRUBIN, TOTAL (test code = 2207) 0.3 MG/DL ALKALINE PHOSPHATASE (test code = 2204) 83 U/L AST (test code = 2218) 23 U/L ALT (test code = 2219) 27 U/L LIPID [id number] 00:00:00* Test Item Value Reference Range Interpretation Comme nts CHOLESTEROL (test code = 2210) 204 MG/DL TRIGLYCERIDES (test code = 2232) 121 MG/DL HDL CHOLESTEROL (test code = 2220) 50 MG/DL CALC LDL CHOL (test code = 2237) 130 MG/DL RISK RATIO LDL/HDL (test cod e = 2238) 2.60 RATIO LIPID [id number] 00:00:00* Test Item Value Reference Range Interpretation Comme nts CHOLESTEROL (test code = 2210) 204 MG/DL TRIGLYCERIDES (test code = 2232) 121 MG/DL HDL CHOLESTEROL (test code = 2220) 50 MG/DL CALC LDL CHOL (test code = 2237) 130 MG/DL RISK RATIO LDL/HDL (test cod e = 2238) 2.60 RATIO HEMOGLOBIN [id number] 00:00:00* Test Item Value Reference Range Interpretation Comme nts HEMOGLOBIN A1c (test code = 05563) 8.3 % HEMOGLOBIN [id number] 00:00:00* Test Item Value Reference Range Interpretation Comme nts HEMOGLOBIN A1c (test code = 02231) 8.3 % COMPREHENSIVE METABOLIC [id number] 00:00:00* Test Item Value Reference Range Interpretation Comme nts GLUCOSE (test code = 2217) 131 MG/DL BUN (test code = 2208) 16 MG/DL CREATININE (test code = 2214) 0.51 MG/DL eGFR AMER. (test cod e = 08051) 116 ML/MIN/1.73 eGFR NON- AMER. (test code = 19257) 100 ML/MIN/1.73 CALC BUN/CREAT (test code = 2235) 31 RATIO SODIUM (test code = 2231) 143 MEQ/L POTASSIUM (test code = 2228) 4.0 MEQ/L CHLORIDE (test code = 2215) 103 MEQ/L CARBON DIOXIDE (test code = 2206) 27 MEQ/L CALCIUM (test code = 2209) 9.4 MG/DL PROTEIN, TOTAL (test code = 2229) 7.5 G/DL ALBUMIN (test code = 2201) 4.4 G/DL CALC GLOBULIN (test code = 2240) 3.1 G/DL CALC A/G RATIO (test code = 2234) 1.4 RATIO BILIRUBIN, TOTAL (test code = 2207) 0.3 MG/DL ALKALINE PHOSPHATASE (test code = 2204) 83 U/L AST (test code = 2218) 23 U/L ALT (test code = 2219) 27 U/L LIPID [id number] 00:00:00* Test Item Value Reference Range Interpretation Comme nts CHOLESTEROL (test code = 2210) 204 MG/DL TRIGLYCERIDES (test code = 2232) 121 MG/DL HDL CHOLESTEROL (test code = 2220) 50 MG/DL CALC LDL CHOL (test code = 2237) 130 MG/DL RISK RATIO LDL/HDL (test cod e = 223) 2.60 RATIO HEMOGLOBIN [id number] 00:00:00* Test Item Value Reference Range Interpretation Comme nts HEMOGLOBIN A1c (test code = 86823) 8.3 % Toney F AustinCOMPREHENSIVE METABOLIC [id number] 00:00:00* Test Item Value Reference Range Interpretation Comme nts GLUCOSE (test code = 2217) 131 MG/DL BUN (test code = 8) 16 MG/DL CREATININE (test code = 2214) 0.51 MG/DL eGFR AMER. (test cod e = 10042) 116 ML/MIN/1.73 eGFR NON- AMER. (test code = 13246) 100 ML/MIN/1.73 CALC BUN/CREAT (test code = 2235) 31 RATIO SODIUM (test code = 2231) 143 MEQ/L POTASSIUM (test code = 2228) 4.0 MEQ/L CHLORIDE (test code = 2215) 103 MEQ/L CARBON DIOXIDE (test code = 2206) 27 MEQ/L CALCIUM (test code = 2209) 9.4 MG/DL PROTEIN, TOTAL (test code = 2229) 7.5 G/DL ALBUMIN (test code = 2201) 4.4 G/DL CALC GLOBULIN (test code = 2240) 3.1 G/DL CALC A/G RATIO (test code = 2234) 1.4 RATIO BILIRUBIN, TOTAL (test code = 2207) 0.3 MG/DL ALKALINE PHOSPHATASE (test code = 2204) 83 U/L AST (test code = 2218) 23 U/L ALT (test code = 2219) 27 U/L Toney [place], [id number] 00:00:00* Test Item Value Reference Range Interpretation Comme nts CULTURE, STOOL (test code = 33281) SPECIMEN NUMBER: [id number] CULTURE, [id number] 00:00:00* Test Item Value Reference Range Interpretation Comme nts CULTURE, STOOL (test code = 05532) SPECIMEN NUMBER: [id number] CULTURE, [id number] 00:00:00* Test Item Value Reference Range Interpretation Comme nts CULTURE, STOOL (test code = 36546) SPECIMEN NUMBER: [id number] CULTURE, [id number] 00:00:00* Test Item Value Reference Range Interpretation Comme nts CULTURE, STOOL (test code = 81636) SPECIMEN NUMBER: [id number] CULTURE, [id number] 00:00:00* Test Item Value Reference Range Interpretation Comme nts CULTURE, STOOL (test code = 48002) SPECIMEN NUMBER: [id number] CULTURE, [id number] 00:00:00* Test Item Value Reference Range Interpretation Comme nts CULTURE, STOOL (test code = 63049) SPECIMEN NUMBER: [id number] CULTURE, [id number] 00:00:00* Test Item Value Reference Range Interpretation Comme nts CULTURE, STOOL (test code = 79051) SPECIMEN NUMBER: [id number] CULTURE, [id number] 00:00:00* Test Item Value Reference Range Interpretation Comme nts CULTURE, STOOL (test code = 27894) SPECIMEN NUMBER: [id number] CULTURE, [id number] 00:00:00* Test Item Value Reference Range Interpretation Comme nts CULTURE, STOOL (test code = 22584) SPECIMEN NUMBER: [id number] CULTURE, [id number] 00:00:00* Test Item Value Reference Range Interpretation Comme nts CULTURE, STOOL (test code = 24527) SPECIMEN NUMBER: [id number] CULTURE, [id number] 00:00:00* Test Item Value Reference Range Interpretation Comme nts CULTURE, STOOL (test code = 76731) SPECIMEN NUMBER: [id number] CULTURE, [id number] 00:00:00* Test Item Value Reference Range Interpretation Comme nts CULTURE, STOOL (test code = 51145) SPECIMEN NUMBER: [id number] CULTURE, [id number] 00:00:00* Test Item Value Reference Range Interpretation Comme nts CULTURE, STOOL (test code = 32421) SPECIMEN NUMBER: [id number] CULTURE, [id number] 00:00:00* Test Item Value Reference Range Interpretation Comme nts CULTURE, STOOL (test code = 30825) SPECIMEN NUMBER: [id number] CULTURE, [id number] 00:00:00* Test Item Value Reference Range Interpretation Comme nts CULTURE, STOOL (test code = 01636) SPECIMEN NUMBER: [id number] CULTURE, [id number] 00:00:00* Test Item Value Reference Range Interpretation Comme nts CULTURE, STOOL (test code = 95740) SPECIMEN NUMBER: [id number] Toney F [id number] 00:00:00* Test Item Value Reference Range Interpretation Comme nts AMYLASE (test code = 2205) 57 U/L Toney F [id number] 00:00:00* Test Item Value Reference Range Interpretation Comme nts LIPASE (test code = 2058) 26 U/L Toney F AustinCOMPREHENSIVE METABOLIC [id number] 00:00:00* Test Item Value Reference Range Interpretation Comme nts GLUCOSE (test code = 2217) 298 MG/DL BUN (test code = 2208) 21 MG/DL CREATININE (test code = 2214) 0.56 MG/DL eGFR AMER. (test cod e = 12452) 113 ML/MIN/1.73 eGFR NON- AMER. (test code = 83317) 97 ML/MIN/1.73 CALC BUN/CREAT (test code = 2235) 38 RATIO SODIUM (test code = 2231) 139 MEQ/L POTASSIUM (test code = 2228) 3.6 MEQ/L CHLORIDE (test code = 2215) 101 MEQ/L CARBON DIOXIDE (test code = 2206) 24 MEQ/L CALCIUM (test code = 2209) 9.4 MG/DL PROTEIN, TOTAL (test code = 2229) 6.8 G/DL ALBUMIN (test code = 2201) 4.1 G/DL CALC GLOBULIN (test code = 2240) 2.7 G/DL CALC A/G RATIO (test code = 2234) 1.5 RATIO BILIRUBIN, TOTAL (test code = 2207) 0.4 MG/DL ALKALINE PHOSPHATASE (test code = 2204) 77 U/L AST (test code = 2218) 16 U/L ALT (test code = 2219) 21 U/L CBC W/AUTO [id number] 00:00:00* Test Item Value Reference Range Interpretation Comme nts WBC (test code = 1001) 10.1 K/UL RBC (test code = 1002) 4.26 M/UL HEMOGLOBIN (test code = 1003) 12.7 G/DL HEMATOCRIT (test code = 1004) 37.7 % MCV (test code = 1005) 88.5 fL MCH (test code = 1006) 29.8 PG MCHC (test code = 1007) 33.7 G/DL RDW (test code = 1038) 12.9 % NEUTROPHILS (test code = 1008) 59.1 % LYMPHOCYTES (test code = 1010) 29.7 % MONOCYTES (test code = 1011) 7.4 % EOSINOPHILS (test code = 1012) 2.9 % BASOPHILS (test code = 1013) 0.9 % PLATELET COUNT (test code = 1015) 204 K/UL CBC W/AUTO [id number] 00:00:00* Test Item Value Reference Range Interpretation Comme nts WBC (test code = 1001) 10.1 K/UL RBC (test code = 1002) 4.26 M/UL HEMOGLOBIN (test code = 1003) 12.7 G/DL HEMATOCRIT (test code = 1004) 37.7 % MCV (test code = 1005) 88.5 fL MCH (test code = 1006) 29.8 PG MCHC (test code = 1007) 33.7 G/DL RDW (test code = 1038) 12.9 % NEUTROPHILS (test code = 1008) 59.1 % LYMPHOCYTES (test code = 1010) 29.7 % MONOCYTES (test code = 1011) 7.4 % EOSINOPHILS (test code = 1012) 2.9 % BASOPHILS (test code = 1013) 0.9 % PLATELET COUNT (test code = 1015) 204 K/UL [id number] 00:00:00* Test Item Value Reference Range Interpretation Comme nts AMYLASE (test code = 2205) 57 U/L [id number] 00:00:00* Test Item Value Reference Range Interpretation Comme nts LIPASE (test code = 205) 26 U/L [id number] 00:00:00* Test Item Value Reference Range Interpretation Comme nts LIPASE (test code = 205) 26 U/L COMPREHENSIVE METABOLIC [id number] 00:00:00* Test Item Value Reference Range Interpretation Comme nts GLUCOSE (test code = 2217) 298 MG/DL BUN (test code = 2208) 21 MG/DL CREATININE (test code = 2214) 0.56 MG/DL eGFR AMER. (test cod e = 96092) 113 ML/MIN/1.73 eGFR NON- AMER. (test code = 72515) 97 ML/MIN/1.73 CALC BUN/CREAT (test code = 2235) 38 RATIO SODIUM (test code = 2231) 139 MEQ/L POTASSIUM (test code = 2228) 3.6 MEQ/L CHLORIDE (test code = 2215) 101 MEQ/L CARBON DIOXIDE (test code = 2206) 24 MEQ/L CALCIUM (test code = 2209) 9.4 MG/DL PROTEIN, TOTAL (test code = 2229) 6.8 G/DL ALBUMIN (test code = 2201) 4.1 G/DL CALC GLOBULIN (test code = 2240) 2.7 G/DL CALC A/G RATIO (test code = 2234) 1.5 RATIO BILIRUBIN, TOTAL (test code = 2207) 0.4 MG/DL ALKALINE PHOSPHATASE (test code = 2204) 77 U/L AST (test code = 2218) 16 U/L ALT (test code = 2219) 21 U/L COMPREHENSIVE METABOLIC [id number] 00:00:00* Test Item Value Reference Range Interpretation Comme nts GLUCOSE (test code = 2217) 298 MG/DL BUN (test code = 2208) 21 MG/DL CREATININE (test code = 2214) 0.56 MG/DL eGFR AMER. (test cod e = 70143) 113 ML/MIN/1.73 eGFR NON- AMER. (test code = 99301) 97 ML/MIN/1.73 CALC BUN/CREAT (test code = 2235) 38 RATIO SODIUM (test code = 2231) 139 MEQ/L POTASSIUM (test code = 2228) 3.6 MEQ/L CHLORIDE (test code = 2215) 101 MEQ/L CARBON DIOXIDE (test code = 2206) 24 MEQ/L CALCIUM (test code = 2209) 9.4 MG/DL PROTEIN, TOTAL (test code = 2229) 6.8 G/DL ALBUMIN (test code = 2201) 4.1 G/DL CALC GLOBULIN (test code = 2240) 2.7 G/DL CALC A/G RATIO (test code = 2234) 1.5 RATIO BILIRUBIN, TOTAL (test code = 2207) 0.4 MG/DL ALKALINE PHOSPHATASE (test code = 2204) 77 U/L AST (test code = 2218) 16 U/L ALT (test code = 2219) 21 U/L CBC W/AUTO [id number] 00:00:00* Test Item Value Reference Range Interpretation Comme nts WBC (test code = 1001) 10.1 K/UL RBC (test code = 1002) 4.26 M/UL HEMOGLOBIN (test code = 1003) 12.7 G/DL HEMATOCRIT (test code = 1004) 37.7 % MCV (test code = 1005) 88.5 fL MCH (test code = 1006) 29.8 PG MCHC (test code = 1007) 33.7 G/DL RDW (test code = 1038) 12.9 % NEUTROPHILS (test code = 1008) 59.1 % LYMPHOCYTES (test code = 1010) 29.7 % MONOCYTES (test code = 1011) 7.4 % EOSINOPHILS (test code = 1012) 2.9 % BASOPHILS (test code = 1013) 0.9 % PLATELET COUNT (test code = 1015) 204 K/UL CBC W/AUTO [id number] 00:00:00* Test Item Value Reference Range Interpretation Comme nts WBC (test code = 1001) 10.1 K/UL RBC (test code = 1002) 4.26 M/UL HEMOGLOBIN (test code = 1003) 12.7 G/DL HEMATOCRIT (test code = 1004) 37.7 % MCV (test code = 1005) 88.5 fL MCH (test code = 1006) 29.8 PG MCHC (test code = 1007) 33.7 G/DL RDW (test code = 1038) 12.9 % NEUTROPHILS (test code = 1008) 59.1 % LYMPHOCYTES (test code = 1010) 29.7 % MONOCYTES (test code = 1011) 7.4 % EOSINOPHILS (test code = 1012) 2.9 % BASOPHILS (test code = 1013) 0.9 % PLATELET COUNT (test code = 1015) 204 K/UL CBC W/AUTO [id number] 00:00:00* Test Item Value Reference Range Interpretation Comme nts WBC (test code = 1001) 10.1 K/UL RBC (test code = 1002) 4.26 M/UL HEMOGLOBIN (test code = 1003) 12.7 G/DL HEMATOCRIT (test code = 1004) 37.7 % MCV (test code = 1005) 88.5 fL MCH (test code = 1006) 29.8 PG MCHC (test code = 1007) 33.7 G/DL RDW (test code = 1038) 12.9 % NEUTROPHILS (test code = 1008) 59.1 % LYMPHOCYTES (test code = 1010) 29.7 % MONOCYTES (test code = 1011) 7.4 % EOSINOPHILS (test code = 1012) 2.9 % BASOPHILS (test code = 1013) 0.9 % PLATELET COUNT (test code = 1015) 204 K/UL [id number] 00:00:00* Test Item Value Reference Range Interpretation Comme nts AMYLASE (test code = 5) 57 U/L [id number] 00:00:00* Test Item Value Reference Range Interpretation Comme nts AMYLASE (test code = 2204) 57 U/L [id number] 00:00:00* Test Item Value Reference Range Interpretation Comme nts LIPASE (test code = 2057) 26 U/L [id number] 00:00:00* Test Item Value Reference Range Interpretation Comme nts LIPASE (test code = 2057) 26 U/L [id number] 00:00:00* Test Item Value Reference Range Interpretation Comme nts LIPASE (test code = 2057) 26 U/L COMPREHENSIVE METABOLIC [id number] 00:00:00* Test Item Value Reference Range Interpretation Comme nts GLUCOSE (test code = 2217) 298 MG/DL BUN (test code = 2208) 21 MG/DL CREATININE (test code = 2214) 0.56 MG/DL eGFR AMER. (test cod e = 54487) 113 ML/MIN/1.73 eGFR NON- AMER. (test code = 73166) 97 ML/MIN/1.73 CALC BUN/CREAT (test code = 2235) 38 RATIO SODIUM (test code = 2231) 139 MEQ/L POTASSIUM (test code = 2228) 3.6 MEQ/L CHLORIDE (test code = 2215) 101 MEQ/L CARBON DIOXIDE (test code = 2206) 24 MEQ/L CALCIUM (test code = 2209) 9.4 MG/DL PROTEIN, TOTAL (test code = 2229) 6.8 G/DL ALBUMIN (test code = 2201) 4.1 G/DL CALC GLOBULIN (test code = 2240) 2.7 G/DL CALC A/G RATIO (test code = 2234) 1.5 RATIO BILIRUBIN, TOTAL (test code = 2207) 0.4 MG/DL ALKALINE PHOSPHATASE (test code = 2204) 77 U/L AST (test code = 2218) 16 U/L ALT (test code = 2219) 21 U/L COMPREHENSIVE METABOLIC [id number] 00:00:00* Test Item Value Reference Range Interpretation Comme nts GLUCOSE (test code = 2217) 298 MG/DL BUN (test code = 2208) 21 MG/DL CREATININE (test code = 2214) 0.56 MG/DL eGFR AMER. (test cod e = 27869) 113 ML/MIN/1.73 eGFR NON- AMER. (test code = 44250) 97 ML/MIN/1.73 CALC BUN/CREAT (test code = 2235) 38 RATIO SODIUM (test code = 2231) 139 MEQ/L POTASSIUM (test code = 2228) 3.6 MEQ/L CHLORIDE (test code = 2215) 101 MEQ/L CARBON DIOXIDE (test code = 2206) 24 MEQ/L CALCIUM (test code = 2209) 9.4 MG/DL PROTEIN, TOTAL (test code = 2229) 6.8 G/DL ALBUMIN (test code = 2201) 4.1 G/DL CALC GLOBULIN (test code = 2240) 2.7 G/DL CALC A/G RATIO (test code = 2234) 1.5 RATIO BILIRUBIN, TOTAL (test code = 2207) 0.4 MG/DL ALKALINE PHOSPHATASE (test code = 2204) 77 U/L AST (test code = 2218) 16 U/L ALT (test code = 2219) 21 U/L CBC W/AUTO [id number] 00:00:00* Test Item Value Reference Range Interpretation Comme nts WBC (test code = 1001) 10.1 K/UL RBC (test code = 1002) 4.26 M/UL HEMOGLOBIN (test code = 1003) 12.7 G/DL HEMATOCRIT (test code = 1004) 37.7 % MCV (test code = 1005) 88.5 fL MCH (test code = 1006) 29.8 PG MCHC (test code = 1007) 33.7 G/DL RDW (test code = 1038) 12.9 % NEUTROPHILS (test code = 1008) 59.1 % LYMPHOCYTES (test code = 1010) 29.7 % MONOCYTES (test code = 1011) 7.4 % EOSINOPHILS (test code = 1012) 2.9 % BASOPHILS (test code = 1013) 0.9 % PLATELET COUNT (test code = 1015) 204 K/UL CBC W/AUTO [id number] 00:00:00* Test Item Value Reference Range Interpretation Comme nts WBC (test code = 1001) 10.1 K/UL RBC (test code = 1002) 4.26 M/UL HEMOGLOBIN (test code = 1003) 12.7 G/DL HEMATOCRIT (test code = 1004) 37.7 % MCV (test code = 1005) 88.5 fL MCH (test code = 1006) 29.8 PG MCHC (test code = 1007) 33.7 G/DL RDW (test code = 1038) 12.9 % NEUTROPHILS (test code = 1008) 59.1 % LYMPHOCYTES (test code = 1010) 29.7 % MONOCYTES (test code = 1011) 7.4 % EOSINOPHILS (test code = 1012) 2.9 % BASOPHILS (test code = 1013) 0.9 % PLATELET COUNT (test code = 1015) 204 K/UL CBC W/AUTO [id number] 00:00:00* Test Item Value Reference Range Interpretation Comme nts WBC (test code = 1001) 10.1 K/UL RBC (test code = 1002) 4.26 M/UL HEMOGLOBIN (test code = 1003) 12.7 G/DL HEMATOCRIT (test code = 1004) 37.7 % MCV (test code = 1005) 88.5 fL MCH (test code = 1006) 29.8 PG MCHC (test code = 1007) 33.7 G/DL RDW (test code = 1038) 12.9 % NEUTROPHILS (test code = 1008) 59.1 % LYMPHOCYTES (test code = 1010) 29.7 % MONOCYTES (test code = 1011) 7.4 % EOSINOPHILS (test code = 1012) 2.9 % BASOPHILS (test code = 1013) 0.9 % PLATELET COUNT (test code = 1015) 204 K/UL [id number] 00:00:00* Test Item Value Reference Range Interpretation Comme nts AMYLASE (test code = 2205) 57 U/L [id number] 00:00:00* Test Item Value Reference Range Interpretation Comme nts AMYLASE (test code = 2205) 57 U/L [id number] 00:00:00* Test Item Value Reference Range Interpretation Comme nts LIPASE (test code = 8) 26 U/L [id number] 00:00:00* Test Item Value Reference Range Interpretation Comme nts LIPASE (test code = 8) 26 U/L [id number] 00:00:00* Test Item Value Reference Range Interpretation Comme nts LIPASE (test code = 2058) 26 U/L COMPREHENSIVE METABOLIC [id number] 00:00:00* Test Item Value Reference Range Interpretation Comme nts GLUCOSE (test code = 2217) 298 MG/DL BUN (test code = 2208) 21 MG/DL CREATININE (test code = 2214) 0.56 MG/DL eGFR AMER. (test cod e = 05460) 113 ML/MIN/1.73 eGFR NON- AMER. (test code = 05743) 97 ML/MIN/1.73 CALC BUN/CREAT (test code = 2235) 38 RATIO SODIUM (test code = 2231) 139 MEQ/L POTASSIUM (test code = 2228) 3.6 MEQ/L CHLORIDE (test code = 2215) 101 MEQ/L CARBON DIOXIDE (test code = 2206) 24 MEQ/L CALCIUM (test code = 2209) 9.4 MG/DL PROTEIN, TOTAL (test code = 2229) 6.8 G/DL ALBUMIN (test code = 2201) 4.1 G/DL CALC GLOBULIN (test code = 2240) 2.7 G/DL CALC A/G RATIO (test code = 2234) 1.5 RATIO BILIRUBIN, TOTAL (test code = 2207) 0.4 MG/DL ALKALINE PHOSPHATASE (test code = 2204) 77 U/L AST (test code = 2218) 16 U/L ALT (test code = 2219) 21 U/L COMPREHENSIVE METABOLIC [id number] 00:00:00* Test Item Value Reference Range Interpretation Comme nts GLUCOSE (test code = 2217) 298 MG/DL BUN (test code = 2208) 21 MG/DL CREATININE (test code = 2214) 0.56 MG/DL eGFR AMER. (test cod e = 29064) 113 ML/MIN/1.73 eGFR NON- AMER. (test code = 40444) 97 ML/MIN/1.73 CALC BUN/CREAT (test code = 2235) 38 RATIO SODIUM (test code = 2231) 139 MEQ/L POTASSIUM (test code = 2228) 3.6 MEQ/L CHLORIDE (test code = 2215) 101 MEQ/L CARBON DIOXIDE (test code = 2206) 24 MEQ/L CALCIUM (test code = 2209) 9.4 MG/DL PROTEIN, TOTAL (test code = 2229) 6.8 G/DL ALBUMIN (test code = 2201) 4.1 G/DL CALC GLOBULIN (test code = 2240) 2.7 G/DL CALC A/G RATIO (test code = 2234) 1.5 RATIO BILIRUBIN, TOTAL (test code = 2207) 0.4 MG/DL ALKALINE PHOSPHATASE (test code = 2204) 77 U/L AST (test code = 2218) 16 U/L ALT (test code = 2219) 21 U/L CBC W/AUTO [id number] 00:00:00* Test Item Value Reference Range Interpretation Comme nts WBC (test code = 1001) 10.1 K/UL RBC (test code = 1002) 4.26 M/UL HEMOGLOBIN (test code = 1003) 12.7 G/DL HEMATOCRIT (test code = 1004) 37.7 % MCV (test code = 1005) 88.5 fL MCH (test code = 1006) 29.8 PG MCHC (test code = 1007) 33.7 G/DL RDW (test code = 1038) 12.9 % NEUTROPHILS (test code = 1008) 59.1 % LYMPHOCYTES (test code = 1010) 29.7 % MONOCYTES (test code = 1011) 7.4 % EOSINOPHILS (test code = 1012) 2.9 % BASOPHILS (test code = 1013) 0.9 % PLATELET COUNT (test code = 1015) 204 K/UL CBC W/AUTO [id number] 00:00:00* Test Item Value Reference Range Interpretation Comme nts WBC (test code = 1001) 10.1 K/UL RBC (test code = 1002) 4.26 M/UL HEMOGLOBIN (test code = 1003) 12.7 G/DL HEMATOCRIT (test code = 1004) 37.7 % MCV (test code = 1005) 88.5 fL MCH (test code = 1006) 29.8 PG MCHC (test code = 1007) 33.7 G/DL RDW (test code = 1038) 12.9 % NEUTROPHILS (test code = 1008) 59.1 % LYMPHOCYTES (test code = 1010) 29.7 % MONOCYTES (test code = 1011) 7.4 % EOSINOPHILS (test code = 1012) 2.9 % BASOPHILS (test code = 1013) 0.9 % PLATELET COUNT (test code = 1015) 204 K/UL COMPREHENSIVE METABOLIC [id number] 00:00:00* Test Item Value Reference Range Interpretation Comme nts GLUCOSE (test code = 2217) 298 MG/DL BUN (test code = 2208) 21 MG/DL CREATININE (test code = 2214) 0.56 MG/DL eGFR AMER. (test cod e = 13220) 113 ML/MIN/1.73 eGFR NON- AMER. (test code = 25531) 97 ML/MIN/1.73 CALC BUN/CREAT (test code = 2235) 38 RATIO SODIUM (test code = 2231) 139 MEQ/L POTASSIUM (test code = 2228) 3.6 MEQ/L CHLORIDE (test code = 2215) 101 MEQ/L CARBON DIOXIDE (test code = 2206) 24 MEQ/L CALCIUM (test code = 2209) 9.4 MG/DL PROTEIN, TOTAL (test code = 2229) 6.8 G/DL ALBUMIN (test code = 2201) 4.1 G/DL CALC GLOBULIN (test code = 2240) 2.7 G/DL CALC A/G RATIO (test code = 2234) 1.5 RATIO BILIRUBIN, TOTAL (test code = 2207) 0.4 MG/DL ALKALINE PHOSPHATASE (test code = 2204) 77 U/L AST (test code = 2218) 16 U/L ALT (test code = 2219) 21 U/L CBC W/AUTO [id number] 00:00:00* Test Item Value Reference Range Interpretation Comme nts WBC (test code = 1001) 10.1 K/UL RBC (test code = 1002) 4.26 M/UL HEMOGLOBIN (test code = 1003) 12.7 G/DL HEMATOCRIT (test code = 1004) 37.7 % MCV (test code = 1005) 88.5 fL MCH (test code = 1006) 29.8 PG MCHC (test code = 1007) 33.7 G/DL RDW (test code = 1038) 12.9 % NEUTROPHILS (test code = 1008) 59.1 % LYMPHOCYTES (test code = 1010) 29.7 % MONOCYTES (test code = 1011) 7.4 % EOSINOPHILS (test code = 1012) 2.9 % BASOPHILS (test code = 1013) 0.9 % PLATELET COUNT (test code = 1015) 204 K/UL [id number] 00:00:00* Test Item Value Reference Range Interpretation Comme nts AMYLASE (test code = 2204) 57 U/L [id number] 00:00:00* Test Item Value Reference Range Interpretation Comme nts AMYLASE (test code = 2204) 57 U/L [id number] 00:00:00* Test Item Value Reference Range Interpretation Comme nts LIPASE (test code = 2057) 26 U/L [id number] 00:00:00* Test Item Value Reference Range Interpretation Comme nts LIPASE (test code = 2057) 26 U/L [id number] 00:00:00* Test Item Value Reference Range Interpretation Comme nts LIPASE (test code = 2057) 26 U/L CBC W/AUTO [id number] 00:00:00* Test Item Value Reference Range Interpretation Comme nts WBC (test code = 1001) 10.1 K/UL RBC (test code = 1002) 4.26 M/UL HEMOGLOBIN (test code = 1003) 12.7 G/DL HEMATOCRIT (test code = 1004) 37.7 % MCV (test code = 1005) 88.5 fL MCH (test code = 1006) 29.8 PG MCHC (test code = 1007) 33.7 G/DL RDW (test code = 1038) 12.9 % NEUTROPHILS (test code = 1008) 59.1 % LYMPHOCYTES (test code = 1010) 29.7 % MONOCYTES (test code = 1011) 7.4 % EOSINOPHILS (test code = 1012) 2.9 % BASOPHILS (test code = 1013) 0.9 % PLATELET COUNT (test code = 1015) 204 K/UL CBC W/AUTO [id number] 00:00:00* Test Item Value Reference Range Interpretation Comme nts WBC (test code = 1001) 10.1 K/UL RBC (test code = 1002) 4.26 M/UL HEMOGLOBIN (test code = 1003) 12.7 G/DL HEMATOCRIT (test code = 1004) 37.7 % MCV (test code = 1005) 88.5 fL MCH (test code = 1006) 29.8 PG MCHC (test code = 1007) 33.7 G/DL RDW (test code = 1038) 12.9 % NEUTROPHILS (test code = 1008) 59.1 % LYMPHOCYTES (test code = 1010) 29.7 % MONOCYTES (test code = 1011) 7.4 % EOSINOPHILS (test code = 1012) 2.9 % BASOPHILS (test code = 1013) 0.9 % PLATELET COUNT (test code = 1015) 204 K/UL [id number] 00:00:00* Test Item Value Reference Range Interpretation Comme nts AMYLASE (test code = 2205) 57 U/L COMPREHENSIVE METABOLIC [id number] 00:00:00* Test Item Value Reference Range Interpretation Comme nts GLUCOSE (test code = 2217) 298 MG/DL BUN (test code = 2208) 21 MG/DL CREATININE (test code = 2214) 0.56 MG/DL eGFR AMER. (test cod e = 13518) 113 ML/MIN/1.73 eGFR NON- AMER. (test code = 22692) 97 ML/MIN/1.73 CALC BUN/CREAT (test code = 2235) 38 RATIO SODIUM (test code = 2231) 139 MEQ/L POTASSIUM (test code = 2228) 3.6 MEQ/L CHLORIDE (test code = 2215) 101 MEQ/L CARBON DIOXIDE (test code = 2206) 24 MEQ/L CALCIUM (test code = 2209) 9.4 MG/DL PROTEIN, TOTAL (test code = 2229) 6.8 G/DL ALBUMIN (test code = 2201) 4.1 G/DL CALC GLOBULIN (test code = 2240) 2.7 G/DL CALC A/G RATIO (test code = 2234) 1.5 RATIO BILIRUBIN, TOTAL (test code = 2207) 0.4 MG/DL ALKALINE PHOSPHATASE (test code = 2204) 77 U/L AST (test code = 2218) 16 U/L ALT (test code = 2219) 21 U/L COMPREHENSIVE METABOLIC [id number] 00:00:00* Test Item Value Reference Range Interpretation Comme nts GLUCOSE (test code = 2217) 298 MG/DL BUN (test code = 2208) 21 MG/DL CREATININE (test code = 2214) 0.56 MG/DL eGFR AMER. (test cod e = 06868) 113 ML/MIN/1.73 eGFR NON- AMER. (test code = 28080) 97 ML/MIN/1.73 CALC BUN/CREAT (test code = 2235) 38 RATIO SODIUM (test code = 2231) 139 MEQ/L POTASSIUM (test code = 2228) 3.6 MEQ/L CHLORIDE (test code = 2215) 101 MEQ/L CARBON DIOXIDE (test code = 2206) 24 MEQ/L CALCIUM (test code = 2209) 9.4 MG/DL PROTEIN, TOTAL (test code = 2229) 6.8 G/DL ALBUMIN (test code = 2201) 4.1 G/DL CALC GLOBULIN (test code = 2240) 2.7 G/DL CALC A/G RATIO (test code = 2234) 1.5 RATIO BILIRUBIN, TOTAL (test code = 2207) 0.4 MG/DL ALKALINE PHOSPHATASE (test code = 2204) 77 U/L AST (test code = 2218) 16 U/L ALT (test code = 2219) 21 U/L CBC W/AUTO [id number] 00:00:00* Test Item Value Reference Range Interpretation Comme nts WBC (test code = 1001) 10.1 K/UL RBC (test code = 1002) 4.26 M/UL HEMOGLOBIN (test code = 1003) 12.7 G/DL HEMATOCRIT (test code = 1004) 37.7 % MCV (test code = 1005) 88.5 fL MCH (test code = 1006) 29.8 PG MCHC (test code = 1007) 33.7 G/DL RDW (test code = 1038) 12.9 % NEUTROPHILS (test code = 1008) 59.1 % LYMPHOCYTES (test code = 1010) 29.7 % MONOCYTES (test code = 1011) 7.4 % EOSINOPHILS (test code = 1012) 2.9 % BASOPHILS (test code = 1013) 0.9 % PLATELET COUNT (test code = 1015) 204 K/UL CBC W/AUTO [id number] 00:00:00* Test Item Value Reference Range Interpretation Comme nts WBC (test code = 1001) 10.1 K/UL RBC (test code = 1002) 4.26 M/UL HEMOGLOBIN (test code = 1003) 12.7 G/DL HEMATOCRIT (test code = 1004) 37.7 % MCV (test code = 1005) 88.5 fL MCH (test code = 1006) 29.8 PG MCHC (test code = 1007) 33.7 G/DL RDW (test code = 1038) 12.9 % NEUTROPHILS (test code = 1008) 59.1 % LYMPHOCYTES (test code = 1010) 29.7 % MONOCYTES (test code = 1011) 7.4 % EOSINOPHILS (test code = 1012) 2.9 % BASOPHILS (test code = 1013) 0.9 % PLATELET COUNT (test code = 1015) 204 K/UL CBC W/AUTO [id number] 00:00:00* Test Item Value Reference Range Interpretation Comme nts WBC (test code = 1001) 10.1 K/UL RBC (test code = 1002) 4.26 M/UL HEMOGLOBIN (test code = 1003) 12.7 G/DL HEMATOCRIT (test code = 1004) 37.7 % MCV (test code = 1005) 88.5 fL MCH (test code = 1006) 29.8 PG MCHC (test code = 1007) 33.7 G/DL RDW (test code = 1038) 12.9 % NEUTROPHILS (test code = 1008) 59.1 % LYMPHOCYTES (test code = 1010) 29.7 % MONOCYTES (test code = 1011) 7.4 % EOSINOPHILS (test code = 1012) 2.9 % BASOPHILS (test code = 1013) 0.9 % PLATELET COUNT (test code = 1015) 204 K/UL [id number] 00:00:00* Test Item Value Reference Range Interpretation Comme nts LIPASE (test code = 2057) 26 U/L [id number] 00:00:00* Test Item Value Reference Range Interpretation Comme nts AMYLASE (test code = 5) 57 U/L [id number] 00:00:00* Test Item Value Reference Range Interpretation Comme nts LIPASE (test code = 2057) 26 U/L [id number] 00:00:00* Test Item Value Reference Range Interpretation Comme nts AMYLASE (test code = 5) 57 U/L [id number] 00:00:00* Test Item Value Reference Range Interpretation Comme nts LIPASE (test code = 2057) 26 U/L [id number] 00:00:00* Test Item Value Reference Range Interpretation Comme nts LIPASE (test code = 2057) 26 U/L [id number] 00:00:00* Test Item Value Reference Range Interpretation Comme nts LIPASE (test code = 2057) 26 U/L COMPREHENSIVE METABOLIC [id number] 00:00:00* Test Item Value Reference Range Interpretation Comme nts GLUCOSE (test code = 2217) 298 MG/DL BUN (test code = 2208) 21 MG/DL CREATININE (test code = 2214) 0.56 MG/DL eGFR AMER. (test cod e = 24623) 113 ML/MIN/1.73 eGFR NON- AMER. (test code = 52962) 97 ML/MIN/1.73 CALC BUN/CREAT (test code = 2235) 38 RATIO SODIUM (test code = 2231) 139 MEQ/L POTASSIUM (test code = 2228) 3.6 MEQ/L CHLORIDE (test code = 2215) 101 MEQ/L CARBON DIOXIDE (test code = 2206) 24 MEQ/L CALCIUM (test code = 2209) 9.4 MG/DL PROTEIN, TOTAL (test code = 2229) 6.8 G/DL ALBUMIN (test code = 2201) 4.1 G/DL CALC GLOBULIN (test code = 2240) 2.7 G/DL CALC A/G RATIO (test code = 2234) 1.5 RATIO BILIRUBIN, TOTAL (test code = 2207) 0.4 MG/DL ALKALINE PHOSPHATASE (test code = 2204) 77 U/L AST (test code = 2218) 16 U/L ALT (test code = 2219) 21 U/L COMPREHENSIVE METABOLIC [id number] 00:00:00* Test Item Value Reference Range Interpretation Comme nts GLUCOSE (test code = 2217) 298 MG/DL BUN (test code = 2208) 21 MG/DL CREATININE (test code = 2214) 0.56 MG/DL eGFR AMER. (test cod e = 58521) 113 ML/MIN/1.73 eGFR NON- AMER. (test code = 08165) 97 ML/MIN/1.73 CALC BUN/CREAT (test code = 2235) 38 RATIO SODIUM (test code = 2231) 139 MEQ/L POTASSIUM (test code = 2228) 3.6 MEQ/L CHLORIDE (test code = 2215) 101 MEQ/L CARBON DIOXIDE (test code = 2206) 24 MEQ/L CALCIUM (test code = 2209) 9.4 MG/DL PROTEIN, TOTAL (test code = 2229) 6.8 G/DL ALBUMIN (test code = 2201) 4.1 G/DL CALC GLOBULIN (test code = 2240) 2.7 G/DL CALC A/G RATIO (test code = 2234) 1.5 RATIO BILIRUBIN, TOTAL (test code = 2207) 0.4 MG/DL ALKALINE PHOSPHATASE (test code = 2204) 77 U/L AST (test code = 2218) 16 U/L ALT (test code = 2219) 21 U/L CBC W/AUTO [id number] 00:00:00* Test Item Value Reference Range Interpretation Comme nts WBC (test code = 1001) 10.1 K/UL RBC (test code = 1002) 4.26 M/UL HEMOGLOBIN (test code = 1003) 12.7 G/DL HEMATOCRIT (test code = 1004) 37.7 % MCV (test code = 1005) 88.5 fL MCH (test code = 1006) 29.8 PG MCHC (test code = 1007) 33.7 G/DL RDW (test code = 1038) 12.9 % NEUTROPHILS (test code = 1008) 59.1 % LYMPHOCYTES (test code = 1010) 29.7 % MONOCYTES (test code = 1011) 7.4 % EOSINOPHILS (test code = 1012) 2.9 % BASOPHILS (test code = 1013) 0.9 % PLATELET COUNT (test code = 1015) 204 K/UL CBC W/AUTO [id number] 00:00:00* Test Item Value Reference Range Interpretation Comme nts WBC (test code = 1001) 10.1 K/UL RBC (test code = 1002) 4.26 M/UL HEMOGLOBIN (test code = 1003) 12.7 G/DL HEMATOCRIT (test code = 1004) 37.7 % MCV (test code = 1005) 88.5 fL MCH (test code = 1006) 29.8 PG MCHC (test code = 1007) 33.7 G/DL RDW (test code = 1038) 12.9 % NEUTROPHILS (test code = 1008) 59.1 % LYMPHOCYTES (test code = 1010) 29.7 % MONOCYTES (test code = 1011) 7.4 % EOSINOPHILS (test code = 1012) 2.9 % BASOPHILS (test code = 1013) 0.9 % PLATELET COUNT (test code = 1015) 204 K/UL CBC W/AUTO [id number] 00:00:00* Test Item Value Reference Range Interpretation Comme nts WBC (test code = 1001) 10.1 K/UL RBC (test code = 1002) 4.26 M/UL HEMOGLOBIN (test code = 1003) 12.7 G/DL HEMATOCRIT (test code = 1004) 37.7 % MCV (test code = 1005) 88.5 fL MCH (test code = 1006) 29.8 PG MCHC (test code = 1007) 33.7 G/DL RDW (test code = 1038) 12.9 % NEUTROPHILS (test code = 1008) 59.1 % LYMPHOCYTES (test code = 1010) 29.7 % MONOCYTES (test code = 1011) 7.4 % EOSINOPHILS (test code = 1012) 2.9 % BASOPHILS (test code = 1013) 0.9 % PLATELET COUNT (test code = 1015) 204 K/UL [id number] 00:00:00* Test Item Value Reference Range Interpretation Comme nts AMYLASE (test code = 2205) 57 U/L [id number] 00:00:00* Test Item Value Reference Range Interpretation Comme nts AMYLASE (test code = 2205) 57 U/L [id number] 00:00:00* Test Item Value Reference Range Interpretation Comme nts LIPASE (test code = 2058) 26 U/L [id number] 00:00:00* Test Item Value Reference Range Interpretation Comme nts LIPASE (test code = 2058) 26 U/L [id number] 00:00:00* Test Item Value Reference Range Interpretation Comme nts LIPASE (test code = 2058) 26 U/L COMPREHENSIVE METABOLIC [id number] 00:00:00* Test Item Value Reference Range Interpretation Comme nts GLUCOSE (test code = 2217) 298 MG/DL BUN (test code = 2208) 21 MG/DL CREATININE (test code = 2214) 0.56 MG/DL eGFR AMER. (test cod e = 37621) 113 ML/MIN/1.73 eGFR NON- AMER. (test code = 24625) 97 ML/MIN/1.73 CALC BUN/CREAT (test code = 2235) 38 RATIO SODIUM (test code = 2231) 139 MEQ/L POTASSIUM (test code = 2228) 3.6 MEQ/L CHLORIDE (test code = 2215) 101 MEQ/L CARBON DIOXIDE (test code = 2206) 24 MEQ/L CALCIUM (test code = 2209) 9.4 MG/DL PROTEIN, TOTAL (test code = 2229) 6.8 G/DL ALBUMIN (test code = 2201) 4.1 G/DL CALC GLOBULIN (test code = 2240) 2.7 G/DL CALC A/G RATIO (test code = 2234) 1.5 RATIO BILIRUBIN, TOTAL (test code = 2207) 0.4 MG/DL ALKALINE PHOSPHATASE (test code = 2204) 77 U/L AST (test code = 2218) 16 U/L ALT (test code = 2219) 21 U/L COMPREHENSIVE METABOLIC [id number] 00:00:00* Test Item Value Reference Range Interpretation Comme nts GLUCOSE (test code = 2217) 298 MG/DL BUN (test code = 2208) 21 MG/DL CREATININE (test code = 2214) 0.56 MG/DL eGFR AMER. (test cod e = 29385) 113 ML/MIN/1.73 eGFR NON- AMER. (test code = 43680) 97 ML/MIN/1.73 CALC BUN/CREAT (test code = 2235) 38 RATIO SODIUM (test code = 2231) 139 MEQ/L POTASSIUM (test code = 2228) 3.6 MEQ/L CHLORIDE (test code = 2215) 101 MEQ/L CARBON DIOXIDE (test code = 2206) 24 MEQ/L CALCIUM (test code = 2209) 9.4 MG/DL PROTEIN, TOTAL (test code = 2229) 6.8 G/DL ALBUMIN (test code = 2201) 4.1 G/DL CALC GLOBULIN (test code = 2240) 2.7 G/DL CALC A/G RATIO (test code = 2234) 1.5 RATIO BILIRUBIN, TOTAL (test code = 2207) 0.4 MG/DL ALKALINE PHOSPHATASE (test code = 2204) 77 U/L AST (test code = 2218) 16 U/L ALT (test code = 2219) 21 U/L CBC W/AUTO [id number] 00:00:00* Test Item Value Reference Range Interpretation Comme nts WBC (test code = 1001) 10.1 K/UL RBC (test code = 1002) 4.26 M/UL HEMOGLOBIN (test code = 1003) 12.7 G/DL HEMATOCRIT (test code = 1004) 37.7 % MCV (test code = 1005) 88.5 fL MCH (test code = 1006) 29.8 PG MCHC (test code = 1007) 33.7 G/DL RDW (test code = 1038) 12.9 % NEUTROPHILS (test code = 1008) 59.1 % LYMPHOCYTES (test code = 1010) 29.7 % MONOCYTES (test code = 1011) 7.4 % EOSINOPHILS (test code = 1012) 2.9 % BASOPHILS (test code = 1013) 0.9 % PLATELET COUNT (test code = 1015) 204 K/UL CBC W/AUTO [id number] 00:00:00* Test Item Value Reference Range Interpretation Comme nts WBC (test code = 1001) 10.1 K/UL RBC (test code = 1002) 4.26 M/UL HEMOGLOBIN (test code = 1003) 12.7 G/DL HEMATOCRIT (test code = 1004) 37.7 % MCV (test code = 1005) 88.5 fL MCH (test code = 1006) 29.8 PG MCHC (test code = 1007) 33.7 G/DL RDW (test code = 1038) 12.9 % NEUTROPHILS (test code = 1008) 59.1 % LYMPHOCYTES (test code = 1010) 29.7 % MONOCYTES (test code = 1011) 7.4 % EOSINOPHILS (test code = 1012) 2.9 % BASOPHILS (test code = 1013) 0.9 % PLATELET COUNT (test code = 1015) 204 K/UL CBC W/AUTO [id number] 00:00:00* Test Item Value Reference Range Interpretation Comme nts WBC (test code = 1001) 10.1 K/UL RBC (test code = 1002) 4.26 M/UL HEMOGLOBIN (test code = 1003) 12.7 G/DL HEMATOCRIT (test code = 1004) 37.7 % MCV (test code = 1005) 88.5 fL MCH (test code = 1006) 29.8 PG MCHC (test code = 1007) 33.7 G/DL RDW (test code = 1038) 12.9 % NEUTROPHILS (test code = 1008) 59.1 % LYMPHOCYTES (test code = 1010) 29.7 % MONOCYTES (test code = 1011) 7.4 % EOSINOPHILS (test code = 1012) 2.9 % BASOPHILS (test code = 1013) 0.9 % PLATELET COUNT (test code = 1015) 204 K/UL [id number] 00:00:00* Test Item Value Reference Range Interpretation Comme nts AMYLASE (test code = 2205) 57 U/L [id number] 00:00:00* Test Item Value Reference Range Interpretation Comme nts AMYLASE (test code = 2205) 57 U/L [id number] 00:00:00* Test Item Value Reference Range Interpretation Comme nts LIPASE (test code = 2058) 26 U/L [id number] 00:00:00* Test Item Value Reference Range Interpretation Comme nts LIPASE (test code = 2058) 26 U/L [id number] 00:00:00* Test Item Value Reference Range Interpretation Comme nts LIPASE (test code = 2058) 26 U/L COMPREHENSIVE METABOLIC [id number] 00:00:00* Test Item Value Reference Range Interpretation Comme nts GLUCOSE (test code = 2217) 298 MG/DL BUN (test code = 2208) 21 MG/DL CREATININE (test code = 2214) 0.56 MG/DL eGFR AMER. (test cod e = 10117) 113 ML/MIN/1.73 eGFR NON- AMER. (test code = 88603) 97 ML/MIN/1.73 CALC BUN/CREAT (test code = 2235) 38 RATIO SODIUM (test code = 2231) 139 MEQ/L POTASSIUM (test code = 2228) 3.6 MEQ/L CHLORIDE (test code = 2215) 101 MEQ/L CARBON DIOXIDE (test code = 2206) 24 MEQ/L CALCIUM (test code = 2209) 9.4 MG/DL PROTEIN, TOTAL (test code = 2229) 6.8 G/DL ALBUMIN (test code = 2201) 4.1 G/DL CALC GLOBULIN (test code = 2240) 2.7 G/DL CALC A/G RATIO (test code = 2234) 1.5 RATIO BILIRUBIN, TOTAL (test code = 2207) 0.4 MG/DL ALKALINE PHOSPHATASE (test code = 2204) 77 U/L AST (test code = 2218) 16 U/L ALT (test code = 2219) 21 U/L CBC W/AUTO [id number] 00:00:00* Test Item Value Reference Range Interpretation Comme nts WBC (test code = 1001) 10.1 K/UL RBC (test code = 1002) 4.26 M/UL HEMOGLOBIN (test code = 1003) 12.7 G/DL HEMATOCRIT (test code = 1004) 37.7 % MCV (test code = 1005) 88.5 fL MCH (test code = 1006) 29.8 PG MCHC (test code = 1007) 33.7 G/DL RDW (test code = 1038) 12.9 % NEUTROPHILS (test code = 1008) 59.1 % LYMPHOCYTES (test code = 1010) 29.7 % MONOCYTES (test code = 1011) 7.4 % EOSINOPHILS (test code = 1012) 2.9 % BASOPHILS (test code = 1013) 0.9 % PLATELET COUNT (test code = 1015) 204 K/UL CBC W/AUTO [id number] 00:00:00* Test Item Value Reference Range Interpretation Comme nts WBC (test code = 1001) 10.1 K/UL RBC (test code = 1002) 4.26 M/UL HEMOGLOBIN (test code = 1003) 12.7 G/DL HEMATOCRIT (test code = 1004) 37.7 % MCV (test code = 1005) 88.5 fL MCH (test code = 1006) 29.8 PG MCHC (test code = 1007) 33.7 G/DL RDW (test code = 1038) 12.9 % NEUTROPHILS (test code = 1008) 59.1 % LYMPHOCYTES (test code = 1010) 29.7 % MONOCYTES (test code = 1011) 7.4 % EOSINOPHILS (test code = 1012) 2.9 % BASOPHILS (test code = 1013) 0.9 % PLATELET COUNT (test code = 1015) 204 K/UL [id number] 00:00:00* Test Item Value Reference Range Interpretation Comme nts AMYLASE (test code = 2205) 57 U/L [id number] 00:00:00* Test Item Value Reference Range Interpretation Comme nts LIPASE (test code = 2057) 26 U/L [id number] 00:00:00* Test Item Value Reference Range Interpretation Comme nts LIPASE (test code = 2057) 26 U/L COMPREHENSIVE METABOLIC [id number] 00:00:00* Test Item Value Reference Range Interpretation Comme nts GLUCOSE (test code = 2217) 298 MG/DL BUN (test code = 2208) 21 MG/DL CREATININE (test code = 2214) 0.56 MG/DL eGFR AMER. (test cod e = 73120) 113 ML/MIN/1.73 eGFR NON- AMER. (test code = 65612) 97 ML/MIN/1.73 CALC BUN/CREAT (test code = 2235) 38 RATIO SODIUM (test code = 2231) 139 MEQ/L POTASSIUM (test code = 2228) 3.6 MEQ/L CHLORIDE (test code = 2215) 101 MEQ/L CARBON DIOXIDE (test code = 2206) 24 MEQ/L CALCIUM (test code = 2209) 9.4 MG/DL PROTEIN, TOTAL (test code = 2229) 6.8 G/DL ALBUMIN (test code = 2201) 4.1 G/DL CALC GLOBULIN (test code = 2240) 2.7 G/DL CALC A/G RATIO (test code = 2234) 1.5 RATIO BILIRUBIN, TOTAL (test code = 2207) 0.4 MG/DL ALKALINE PHOSPHATASE (test code = 2204) 77 U/L AST (test code = 2218) 16 U/L ALT (test code = 2219) 21 U/L Toney RennerCBC W/AUTO [id number] 00:00:00* Test Item Value Reference Range Interpretation Comme nts WBC (test code = 1001) 10.1 K/UL RBC (test code = 1002) 4.26 M/UL HEMOGLOBIN (test code = 1003) 12.7 G/DL HEMATOCRIT (test code = 1004) 37.7 % MCV (test code = 1005) 88.5 fL MCH (test code = 1006) 29.8 PG MCHC (test code = 1007) 33.7 G/DL RDW (test code = 1038) 12.9 % NEUTROPHILS (test code = 1008) 59.1 % LYMPHOCYTES (test code = 1010) 29.7 % MONOCYTES (test code = 1011) 7.4 % EOSINOPHILS (test code = 1012) 2.9 % BASOPHILS (test code = 1013) 0.9 % PLATELET COUNT (test code = 1015) 204 K/UL Toney GarciaROALBUMIN/CREATININE, RANDOM AND [id number] 00:00:00* Test Item Value Reference Range Interpretation Comme nts CREATININE, URINE, CONC. (te st code = 2072) 101.2 MG/DL MICROALBUMIN, RANDOM (test c ode = 48775) <0.2 MG/DL CALC MICROALB/CREAT RND (baljinder t code = 65322) <2 MG/G Toney RennerLIPID [id number] 00:00:00* Test Item Value Reference Range Interpretation Comme nts CHOLESTEROL (test code = 2210) 218 MG/DL TRIGLYCERIDES (test code = 2232) 173 MG/DL HDL CHOLESTEROL (test code = 2220) 49 MG/DL CALC LDL CHOL (test code = 2237) 134 MG/DL RISK RATIO LDL/HDL (test cod e = 2238) 2.74 RATIO Toney RennerCOMPREHENSIVE METABOLIC [id number] 00:00:00* Test Item Value Reference Range Interpretation Comme nts GLUCOSE (test code = 2217) 160 MG/DL BUN (test code = 2208) 23 MG/DL CREATININE (test code = 2214) 0.67 MG/DL eGFR AMER. (test cod e = 56008) 106 ML/MIN/1.73 eGFR NON- AMER. (test code = 40048) 92 ML/MIN/1.73 CALC BUN/CREAT (test code = 2235) 34 RATIO SODIUM (test code = 2231) 143 MEQ/L POTASSIUM (test code = 2228) 4.2 MEQ/L CHLORIDE (test code = 2215) 105 MEQ/L CARBON DIOXIDE (test code = 2206) 25 MEQ/L CALCIUM (test code = 2209) 9.9 MG/DL PROTEIN, TOTAL (test code = 2229) 7.2 G/DL ALBUMIN (test code = 2201) 4.0 G/DL CALC GLOBULIN (test code = 2240) 3.2 G/DL CALC A/G RATIO (test code = 2234) 1.3 RATIO BILIRUBIN, TOTAL (test code = 2207) 0.4 MG/DL ALKALINE PHOSPHATASE (test code = 2204) 82 U/L AST (test code = 2218) 22 U/L ALT (test code = 2219) 22 U/L Toney RennerCBC W/AUTO [id number] 00:00:00* Test Item Value Reference Range Interpretation Comme nts WBC (test code = 1001) 7.1 K/UL RBC (test code = 1002) 4.44 M/UL HEMOGLOBIN (test code = 1003) 13.4 G/DL HEMATOCRIT (test code = 1004) 38.9 % MCV (test code = 1005) 87.6 fL MCH (test code = 1006) 30.2 PG MCHC (test code = 1007) 34.4 G/DL RDW (test code = 1038) 12.7 % NEUTROPHILS (test code = 1008) 45.2 % LYMPHOCYTES (test code = 1010) 42.8 % MONOCYTES (test code = 1011) 8.2 % EOSINOPHILS (test code = 1012) 3.0 % BASOPHILS (test code = 1013) 0.8 % PLATELET COUNT (test code = 1015) 227 K/UL CBC W/AUTO [id number] 00:00:00* Test Item Value Reference Range Interpretation Comme nts WBC (test code = 1001) 7.1 K/UL RBC (test code = 1002) 4.44 M/UL HEMOGLOBIN (test code = 1003) 13.4 G/DL HEMATOCRIT (test code = 1004) 38.9 % MCV (test code = 1005) 87.6 fL MCH (test code = 1006) 30.2 PG MCHC (test code = 1007) 34.4 G/DL RDW (test code = 1038) 12.7 % NEUTROPHILS (test code = 1008) 45.2 % LYMPHOCYTES (test code = 1010) 42.8 % MONOCYTES (test code = 1011) 8.2 % EOSINOPHILS (test code = 1012) 3.0 % BASOPHILS (test code = 1013) 0.8 % PLATELET COUNT (test code = 1015) 227 K/UL HEMOGLOBIN [id number] 00:00:00* Test Item Value Reference Range Interpretation Comme nts HEMOGLOBIN A1c (test code = 73311) 7.5 % HEMOGLOBIN [id number] 00:00:00* Test Item Value Reference Range Interpretation Comme nts HEMOGLOBIN A1c (test code = 03924) 7.5 % MICROALBUMIN/CREATININE, RANDOM AND [id number] 00:00:00* Test Item Value Reference Range Interpretation Comme nts CREATININE, URINE, CONC. (te st code = 2072) 101.2 MG/DL MICROALBUMIN, RANDOM (test c ode = 92571) <0.2 MG/DL CALC MICROALB/CREAT RND (baljinder t code = 37154) <2 MG/G LIPID [id number] 00:00:00* Test Item Value Reference Range Interpretation Comme nts CHOLESTEROL (test code = 2210) 218 MG/DL TRIGLYCERIDES (test code = 2232) 173 MG/DL HDL CHOLESTEROL (test code = 2220) 49 MG/DL CALC LDL CHOL (test code = 2237) 134 MG/DL RISK RATIO LDL/HDL (test cod e = 2238) 2.74 RATIO COMPREHENSIVE METABOLIC [id number] 00:00:00* Test Item Value Reference Range Interpretation Comme nts GLUCOSE (test code = 2217) 160 MG/DL BUN (test code = 2208) 23 MG/DL CREATININE (test code = 2214) 0.67 MG/DL eGFR AMER. (test cod e = 63946) 106 ML/MIN/1.73 eGFR NON- AMER. (test code = 23210) 92 ML/MIN/1.73 CALC BUN/CREAT (test code = 2235) 34 RATIO SODIUM (test code = 2231) 143 MEQ/L POTASSIUM (test code = 2228) 4.2 MEQ/L CHLORIDE (test code = 2215) 105 MEQ/L CARBON DIOXIDE (test code = 2206) 25 MEQ/L CALCIUM (test code = 2209) 9.9 MG/DL PROTEIN, TOTAL (test code = 2229) 7.2 G/DL ALBUMIN (test code = 2201) 4.0 G/DL CALC GLOBULIN (test code = 2240) 3.2 G/DL CALC A/G RATIO (test code = 2234) 1.3 RATIO BILIRUBIN, TOTAL (test code = 2207) 0.4 MG/DL ALKALINE PHOSPHATASE (test code = 2204) 82 U/L AST (test code = 2218) 22 U/L ALT (test code = 2219) 22 U/L CBC W/AUTO [id number] 00:00:00* Test Item Value Reference Range Interpretation Comme nts WBC (test code = 1001) 7.1 K/UL RBC (test code = 1002) 4.44 M/UL HEMOGLOBIN (test code = 1003) 13.4 G/DL HEMATOCRIT (test code = 1004) 38.9 % MCV (test code = 1005) 87.6 fL MCH (test code = 1006) 30.2 PG MCHC (test code = 1007) 34.4 G/DL RDW (test code = 1038) 12.7 % NEUTROPHILS (test code = 1008) 45.2 % LYMPHOCYTES (test code = 1010) 42.8 % MONOCYTES (test code = 1011) 8.2 % EOSINOPHILS (test code = 1012) 3.0 % BASOPHILS (test code = 1013) 0.8 % PLATELET COUNT (test code = 1015) 227 K/UL CBC W/AUTO [id number] 00:00:00* Test Item Value Reference Range Interpretation Comme nts WBC (test code = 1001) 7.1 K/UL RBC (test code = 1002) 4.44 M/UL HEMOGLOBIN (test code = 1003) 13.4 G/DL HEMATOCRIT (test code = 1004) 38.9 % MCV (test code = 1005) 87.6 fL MCH (test code = 1006) 30.2 PG MCHC (test code = 1007) 34.4 G/DL RDW (test code = 1038) 12.7 % NEUTROPHILS (test code = 1008) 45.2 % LYMPHOCYTES (test code = 1010) 42.8 % MONOCYTES (test code = 1011) 8.2 % EOSINOPHILS (test code = 1012) 3.0 % BASOPHILS (test code = 1013) 0.8 % PLATELET COUNT (test code = 1015) 227 K/UL CBC W/AUTO [id number] 00:00:00* Test Item Value Reference Range Interpretation Comme nts WBC (test code = 1001) 7.1 K/UL RBC (test code = 1002) 4.44 M/UL HEMOGLOBIN (test code = 1003) 13.4 G/DL HEMATOCRIT (test code = 1004) 38.9 % MCV (test code = 1005) 87.6 fL MCH (test code = 1006) 30.2 PG MCHC (test code = 1007) 34.4 G/DL RDW (test code = 1038) 12.7 % NEUTROPHILS (test code = 1008) 45.2 % LYMPHOCYTES (test code = 1010) 42.8 % MONOCYTES (test code = 1011) 8.2 % EOSINOPHILS (test code = 1012) 3.0 % BASOPHILS (test code = 1013) 0.8 % PLATELET COUNT (test code = 1015) 227 K/UL HEMOGLOBIN [id number] 00:00:00* Test Item Value Reference Range Interpretation Comme nts HEMOGLOBIN A1c (test code = 38588) 7.5 % HEMOGLOBIN [id number] 00:00:00* Test Item Value Reference Range Interpretation Comme nts HEMOGLOBIN A1c (test code = 58470) 7.5 % HEMOGLOBIN [id number] 00:00:00* Test Item Value Reference Range Interpretation Comme nts HEMOGLOBIN A1c (test code = 14482) 7.5 % MICROALBUMIN/CREATININE, RANDOM AND [id number] 00:00:00* Test Item Value Reference Range Interpretation Comme nts CREATININE, URINE, CONC. (te st code = 207) 101.2 MG/DL MICROALBUMIN, RANDOM (test c ode = 50948) <0.2 MG/DL CALC MICROALB/CREAT RND (baljinder t code = 28961) <2 MG/G MICROALBUMIN/CREATININE, RANDOM AND [id number] 00:00:00* Test Item Value Reference Range Interpretation Comme nts CREATININE, URINE, CONC. (te st code = 207) 101.2 MG/DL MICROALBUMIN, RANDOM (test c ode = 68147) <0.2 MG/DL CALC MICROALB/CREAT RND (baljinder t code = 91950) <2 MG/G LIPID [id number] 00:00:00* Test Item Value Reference Range Interpretation Comme nts CHOLESTEROL (test code = 2210) 218 MG/DL TRIGLYCERIDES (test code = 2232) 173 MG/DL HDL CHOLESTEROL (test code = 2220) 49 MG/DL CALC LDL CHOL (test code = 2237) 134 MG/DL RISK RATIO LDL/HDL (test cod e = 2238) 2.74 RATIO LIPID [id number] 00:00:00* Test Item Value Reference Range Interpretation Comme nts CHOLESTEROL (test code = 2210) 218 MG/DL TRIGLYCERIDES (test code = 2232) 173 MG/DL HDL CHOLESTEROL (test code = 2220) 49 MG/DL CALC LDL CHOL (test code = 2237) 134 MG/DL RISK RATIO LDL/HDL (test cod e = 2238) 2.74 RATIO COMPREHENSIVE METABOLIC [id number] 00:00:00* Test Item Value Reference Range Interpretation Comme nts GLUCOSE (test code = 2217) 160 MG/DL BUN (test code = 2208) 23 MG/DL CREATININE (test code = 2214) 0.67 MG/DL eGFR AMER. (test cod e = 53978) 106 ML/MIN/1.73 eGFR NON- AMER. (test code = 79174) 92 ML/MIN/1.73 CALC BUN/CREAT (test code = 2235) 34 RATIO SODIUM (test code = 2231) 143 MEQ/L POTASSIUM (test code = 2228) 4.2 MEQ/L CHLORIDE (test code = 2215) 105 MEQ/L CARBON DIOXIDE (test code = 2206) 25 MEQ/L CALCIUM (test code = 2209) 9.9 MG/DL PROTEIN, TOTAL (test code = 2229) 7.2 G/DL ALBUMIN (test code = 2201) 4.0 G/DL CALC GLOBULIN (test code = 2240) 3.2 G/DL CALC A/G RATIO (test code = 2234) 1.3 RATIO BILIRUBIN, TOTAL (test code = 2207) 0.4 MG/DL ALKALINE PHOSPHATASE (test code = 2204) 82 U/L AST (test code = 2218) 22 U/L ALT (test code = 2219) 22 U/L COMPREHENSIVE METABOLIC [id number] 00:00:00* Test Item Value Reference Range Interpretation Comme nts GLUCOSE (test code = 2217) 160 MG/DL BUN (test code = 2208) 23 MG/DL CREATININE (test code = 2214) 0.67 MG/DL eGFR AMER. (test cod e = 33593) 106 ML/MIN/1.73 eGFR NON- AMER. (test code = 66587) 92 ML/MIN/1.73 CALC BUN/CREAT (test code = 2235) 34 RATIO SODIUM (test code = 2231) 143 MEQ/L POTASSIUM (test code = 2228) 4.2 MEQ/L CHLORIDE (test code = 2215) 105 MEQ/L CARBON DIOXIDE (test code = 2206) 25 MEQ/L CALCIUM (test code = 2209) 9.9 MG/DL PROTEIN, TOTAL (test code = 2229) 7.2 G/DL ALBUMIN (test code = 2201) 4.0 G/DL CALC GLOBULIN (test code = 2240) 3.2 G/DL CALC A/G RATIO (test code = 2234) 1.3 RATIO BILIRUBIN, TOTAL (test code = 2207) 0.4 MG/DL ALKALINE PHOSPHATASE (test code = 2204) 82 U/L AST (test code = 2218) 22 U/L ALT (test code = 2219) 22 U/L CBC W/AUTO [id number] 00:00:00* Test Item Value Reference Range Interpretation Comme nts WBC (test code = 1001) 7.1 K/UL RBC (test code = 1002) 4.44 M/UL HEMOGLOBIN (test code = 1003) 13.4 G/DL HEMATOCRIT (test code = 1004) 38.9 % MCV (test code = 1005) 87.6 fL MCH (test code = 1006) 30.2 PG MCHC (test code = 1007) 34.4 G/DL RDW (test code = 1038) 12.7 % NEUTROPHILS (test code = 1008) 45.2 % LYMPHOCYTES (test code = 1010) 42.8 % MONOCYTES (test code = 1011) 8.2 % EOSINOPHILS (test code = 1012) 3.0 % BASOPHILS (test code = 1013) 0.8 % PLATELET COUNT (test code = 1015) 227 K/UL CBC W/AUTO [id number] 00:00:00* Test Item Value Reference Range Interpretation Comme nts WBC (test code = 1001) 7.1 K/UL RBC (test code = 1002) 4.44 M/UL HEMOGLOBIN (test code = 1003) 13.4 G/DL HEMATOCRIT (test code = 1004) 38.9 % MCV (test code = 1005) 87.6 fL MCH (test code = 1006) 30.2 PG MCHC (test code = 1007) 34.4 G/DL RDW (test code = 1038) 12.7 % NEUTROPHILS (test code = 1008) 45.2 % LYMPHOCYTES (test code = 1010) 42.8 % MONOCYTES (test code = 1011) 8.2 % EOSINOPHILS (test code = 1012) 3.0 % BASOPHILS (test code = 1013) 0.8 % PLATELET COUNT (test code = 1015) 227 K/UL CBC W/AUTO [id number] 00:00:00* Test Item Value Reference Range Interpretation Comme nts WBC (test code = 1001) 7.1 K/UL RBC (test code = 1002) 4.44 M/UL HEMOGLOBIN (test code = 1003) 13.4 G/DL HEMATOCRIT (test code = 1004) 38.9 % MCV (test code = 1005) 87.6 fL MCH (test code = 1006) 30.2 PG MCHC (test code = 1007) 34.4 G/DL RDW (test code = 1038) 12.7 % NEUTROPHILS (test code = 1008) 45.2 % LYMPHOCYTES (test code = 1010) 42.8 % MONOCYTES (test code = 1011) 8.2 % EOSINOPHILS (test code = 1012) 3.0 % BASOPHILS (test code = 1013) 0.8 % PLATELET COUNT (test code = 1015) 227 K/UL HEMOGLOBIN [id number] 00:00:00* Test Item Value Reference Range Interpretation Comme nts HEMOGLOBIN A1c (test code = 61680) 7.5 % HEMOGLOBIN [id number] 00:00:00* Test Item Value Reference Range Interpretation Comme nts HEMOGLOBIN A1c (test code = 74731) 7.5 % HEMOGLOBIN [id number] 00:00:00* Test Item Value Reference Range Interpretation Comme nts HEMOGLOBIN A1c (test code = 52858) 7.5 % MICROALBUMIN/CREATININE, RANDOM AND [id number] 00:00:00* Test Item Value Reference Range Interpretation Comme nts CREATININE, URINE, CONC. (te st code = 2071) 101.2 MG/DL MICROALBUMIN, RANDOM (test c ode = 06700) <0.2 MG/DL CALC MICROALB/CREAT RND (baljinder t code = 38082) <2 MG/G MICROALBUMIN/CREATININE, RANDOM AND [id number] 00:00:00* Test Item Value Reference Range Interpretation Comme nts CREATININE, URINE, CONC. (te st code = 2071) 101.2 MG/DL MICROALBUMIN, RANDOM (test c ode = 50394) <0.2 MG/DL CALC MICROALB/CREAT RND (baljinder t code = 92342) <2 MG/G LIPID [id number] 00:00:00* Test Item Value Reference Range Interpretation Comme nts CHOLESTEROL (test code = 2210) 218 MG/DL TRIGLYCERIDES (test code = 2232) 173 MG/DL HDL CHOLESTEROL (test code = 2220) 49 MG/DL CALC LDL CHOL (test code = 2237) 134 MG/DL RISK RATIO LDL/HDL (test cod e = 2238) 2.74 RATIO LIPID [id number] 00:00:00* Test Item Value Reference Range Interpretation Comme nts CHOLESTEROL (test code = 2210) 218 MG/DL TRIGLYCERIDES (test code = 2232) 173 MG/DL HDL CHOLESTEROL (test code = 2220) 49 MG/DL CALC LDL CHOL (test code = 2237) 134 MG/DL RISK RATIO LDL/HDL (test cod e = 2238) 2.74 RATIO COMPREHENSIVE METABOLIC [id number] 00:00:00* Test Item Value Reference Range Interpretation Comme nts GLUCOSE (test code = 2217) 160 MG/DL BUN (test code = 2208) 23 MG/DL CREATININE (test code = 2214) 0.67 MG/DL eGFR AMER. (test cod e = 16615) 106 ML/MIN/1.73 eGFR NON- AMER. (test code = 16608) 92 ML/MIN/1.73 CALC BUN/CREAT (test code = 2235) 34 RATIO SODIUM (test code = 2231) 143 MEQ/L POTASSIUM (test code = 2228) 4.2 MEQ/L CHLORIDE (test code = 2215) 105 MEQ/L CARBON DIOXIDE (test code = 2206) 25 MEQ/L CALCIUM (test code = 2209) 9.9 MG/DL PROTEIN, TOTAL (test code = 2229) 7.2 G/DL ALBUMIN (test code = 2201) 4.0 G/DL CALC GLOBULIN (test code = 2240) 3.2 G/DL CALC A/G RATIO (test code = 2234) 1.3 RATIO BILIRUBIN, TOTAL (test code = 2207) 0.4 MG/DL ALKALINE PHOSPHATASE (test code = 2204) 82 U/L AST (test code = 2218) 22 U/L ALT (test code = 2219) 22 U/L COMPREHENSIVE METABOLIC [id number] 00:00:00* Test Item Value Reference Range Interpretation Comme nts GLUCOSE (test code = 2217) 160 MG/DL BUN (test code = 2208) 23 MG/DL CREATININE (test code = 2214) 0.67 MG/DL eGFR AMER. (test cod e = 44026) 106 ML/MIN/1.73 eGFR NON- AMER. (test code = 31397) 92 ML/MIN/1.73 CALC BUN/CREAT (test code = 2235) 34 RATIO SODIUM (test code = 2231) 143 MEQ/L POTASSIUM (test code = 2228) 4.2 MEQ/L CHLORIDE (test code = 2215) 105 MEQ/L CARBON DIOXIDE (test code = 2206) 25 MEQ/L CALCIUM (test code = 2209) 9.9 MG/DL PROTEIN, TOTAL (test code = 2229) 7.2 G/DL ALBUMIN (test code = 2201) 4.0 G/DL CALC GLOBULIN (test code = 2240) 3.2 G/DL CALC A/G RATIO (test code = 2234) 1.3 RATIO BILIRUBIN, TOTAL (test code = 2207) 0.4 MG/DL ALKALINE PHOSPHATASE (test code = 2204) 82 U/L AST (test code = 2218) 22 U/L ALT (test code = 2219) 22 U/L CBC W/AUTO [id number] 00:00:00* Test Item Value Reference Range Interpretation Comme nts WBC (test code = 1001) 7.1 K/UL RBC (test code = 1002) 4.44 M/UL HEMOGLOBIN (test code = 1003) 13.4 G/DL HEMATOCRIT (test code = 1004) 38.9 % MCV (test code = 1005) 87.6 fL MCH (test code = 1006) 30.2 PG MCHC (test code = 1007) 34.4 G/DL RDW (test code = 1038) 12.7 % NEUTROPHILS (test code = 1008) 45.2 % LYMPHOCYTES (test code = 1010) 42.8 % MONOCYTES (test code = 1011) 8.2 % EOSINOPHILS (test code = 1012) 3.0 % BASOPHILS (test code = 1013) 0.8 % PLATELET COUNT (test code = 1015) 227 K/UL CBC W/AUTO [id number] 00:00:00* Test Item Value Reference Range Interpretation Comme nts WBC (test code = 1001) 7.1 K/UL RBC (test code = 1002) 4.44 M/UL HEMOGLOBIN (test code = 1003) 13.4 G/DL HEMATOCRIT (test code = 1004) 38.9 % MCV (test code = 1005) 87.6 fL MCH (test code = 1006) 30.2 PG MCHC (test code = 1007) 34.4 G/DL RDW (test code = 1038) 12.7 % NEUTROPHILS (test code = 1008) 45.2 % LYMPHOCYTES (test code = 1010) 42.8 % MONOCYTES (test code = 1011) 8.2 % EOSINOPHILS (test code = 1012) 3.0 % BASOPHILS (test code = 1013) 0.8 % PLATELET COUNT (test code = 1015) 227 K/UL CBC W/AUTO [id number] 00:00:00* Test Item Value Reference Range Interpretation Comme nts WBC (test code = 1001) 7.1 K/UL RBC (test code = 1002) 4.44 M/UL HEMOGLOBIN (test code = 1003) 13.4 G/DL HEMATOCRIT (test code = 1004) 38.9 % MCV (test code = 1005) 87.6 fL MCH (test code = 1006) 30.2 PG MCHC (test code = 1007) 34.4 G/DL RDW (test code = 1038) 12.7 % NEUTROPHILS (test code = 1008) 45.2 % LYMPHOCYTES (test code = 1010) 42.8 % MONOCYTES (test code = 1011) 8.2 % EOSINOPHILS (test code = 1012) 3.0 % BASOPHILS (test code = 1013) 0.8 % PLATELET COUNT (test code = 1015) 227 K/UL HEMOGLOBIN [id number] 00:00:00* Test Item Value Reference Range Interpretation Comme nts HEMOGLOBIN A1c (test code = 51129) 7.5 % HEMOGLOBIN [id number] 00:00:00* Test Item Value Reference Range Interpretation Comme nts HEMOGLOBIN A1c (test code = 76636) 7.5 % HEMOGLOBIN [id number] 00:00:00* Test Item Value Reference Range Interpretation Comme nts HEMOGLOBIN A1c (test code = 12007) 7.5 % MICROALBUMIN/CREATININE, RANDOM AND [id number] 00:00:00* Test Item Value Reference Range Interpretation Comme nts CREATININE, URINE, CONC. (te st code = 2071) 101.2 MG/DL MICROALBUMIN, RANDOM (test c ode = 00044) <0.2 MG/DL CALC MICROALB/CREAT RND (baljinder t code = 23708) <2 MG/G MICROALBUMIN/CREATININE, RANDOM AND [id number] 00:00:00* Test Item Value Reference Range Interpretation Comme nts CREATININE, URINE, CONC. (te st code = 2071) 101.2 MG/DL MICROALBUMIN, RANDOM (test c ode = 35003) <0.2 MG/DL CALC MICROALB/CREAT RND (baljinder t code = 27052) <2 MG/G LIPID [id number] 00:00:00* Test Item Value Reference Range Interpretation Comme nts CHOLESTEROL (test code = 2210) 218 MG/DL TRIGLYCERIDES (test code = 2232) 173 MG/DL HDL CHOLESTEROL (test code = 2220) 49 MG/DL CALC LDL CHOL (test code = 2237) 134 MG/DL RISK RATIO LDL/HDL (test cod e = 2238) 2.74 RATIO LIPID [id number] 00:00:00* Test Item Value Reference Range Interpretation Comme nts CHOLESTEROL (test code = 2210) 218 MG/DL TRIGLYCERIDES (test code = 2232) 173 MG/DL HDL CHOLESTEROL (test code = 2220) 49 MG/DL CALC LDL CHOL (test code = 2237) 134 MG/DL RISK RATIO LDL/HDL (test cod e = 2238) 2.74 RATIO COMPREHENSIVE METABOLIC [id number] 00:00:00* Test Item Value Reference Range Interpretation Comme nts GLUCOSE (test code = 2217) 160 MG/DL BUN (test code = 2208) 23 MG/DL CREATININE (test code = 2214) 0.67 MG/DL eGFR AMER. (test cod e = 19929) 106 ML/MIN/1.73 eGFR NON- AMER. (test code = 84102) 92 ML/MIN/1.73 CALC BUN/CREAT (test code = 2235) 34 RATIO SODIUM (test code = 2231) 143 MEQ/L POTASSIUM (test code = 2228) 4.2 MEQ/L CHLORIDE (test code = 2215) 105 MEQ/L CARBON DIOXIDE (test code = 2206) 25 MEQ/L CALCIUM (test code = 2209) 9.9 MG/DL PROTEIN, TOTAL (test code = 2229) 7.2 G/DL ALBUMIN (test code = 2201) 4.0 G/DL CALC GLOBULIN (test code = 2240) 3.2 G/DL CALC A/G RATIO (test code = 2234) 1.3 RATIO BILIRUBIN, TOTAL (test code = 2207) 0.4 MG/DL ALKALINE PHOSPHATASE (test code = 2204) 82 U/L AST (test code = 2218) 22 U/L ALT (test code = 2219) 22 U/L COMPREHENSIVE METABOLIC [id number] 00:00:00* Test Item Value Reference Range Interpretation Comme nts GLUCOSE (test code = 2217) 160 MG/DL BUN (test code = 2208) 23 MG/DL CREATININE (test code = 2214) 0.67 MG/DL eGFR AMER. (test cod e = 88170) 106 ML/MIN/1.73 eGFR NON- AMER. (test code = 90537) 92 ML/MIN/1.73 CALC BUN/CREAT (test code = 2235) 34 RATIO SODIUM (test code = 2231) 143 MEQ/L POTASSIUM (test code = 2228) 4.2 MEQ/L CHLORIDE (test code = 2215) 105 MEQ/L CARBON DIOXIDE (test code = 2206) 25 MEQ/L CALCIUM (test code = 2209) 9.9 MG/DL PROTEIN, TOTAL (test code = 2229) 7.2 G/DL ALBUMIN (test code = 2201) 4.0 G/DL CALC GLOBULIN (test code = 2240) 3.2 G/DL CALC A/G RATIO (test code = 2234) 1.3 RATIO BILIRUBIN, TOTAL (test code = 2207) 0.4 MG/DL ALKALINE PHOSPHATASE (test code = 2204) 82 U/L AST (test code = 2218) 22 U/L ALT (test code = 2219) 22 U/L CBC W/AUTO [id number] 00:00:00* Test Item Value Reference Range Interpretation Comme nts WBC (test code = 1001) 7.1 K/UL RBC (test code = 1002) 4.44 M/UL HEMOGLOBIN (test code = 1003) 13.4 G/DL HEMATOCRIT (test code = 1004) 38.9 % MCV (test code = 1005) 87.6 fL MCH (test code = 1006) 30.2 PG MCHC (test code = 1007) 34.4 G/DL RDW (test code = 1038) 12.7 % NEUTROPHILS (test code = 1008) 45.2 % LYMPHOCYTES (test code = 1010) 42.8 % MONOCYTES (test code = 1011) 8.2 % EOSINOPHILS (test code = 1012) 3.0 % BASOPHILS (test code = 1013) 0.8 % PLATELET COUNT (test code = 1015) 227 K/UL CBC W/AUTO [id number] 00:00:00* Test Item Value Reference Range Interpretation Comme nts WBC (test code = 1001) 7.1 K/UL RBC (test code = 1002) 4.44 M/UL HEMOGLOBIN (test code = 1003) 13.4 G/DL HEMATOCRIT (test code = 1004) 38.9 % MCV (test code = 1005) 87.6 fL MCH (test code = 1006) 30.2 PG MCHC (test code = 1007) 34.4 G/DL RDW (test code = 1038) 12.7 % NEUTROPHILS (test code = 1008) 45.2 % LYMPHOCYTES (test code = 1010) 42.8 % MONOCYTES (test code = 1011) 8.2 % EOSINOPHILS (test code = 1012) 3.0 % BASOPHILS (test code = 1013) 0.8 % PLATELET COUNT (test code = 1015) 227 K/UL HEMOGLOBIN [id number] 00:00:00* Test Item Value Reference Range Interpretation Comme nts HEMOGLOBIN A1c (test code = 64651) 7.5 % HEMOGLOBIN [id number] 00:00:00* Test Item Value Reference Range Interpretation Comme nts HEMOGLOBIN A1c (test code = 41705) 7.5 % MICROALBUMIN/CREATININE, RANDOM AND [id number] 00:00:00* Test Item Value Reference Range Interpretation Comme nts CREATININE, URINE, CONC. (te st code = 2072) 101.2 MG/DL MICROALBUMIN, RANDOM (test c ode = 57846) <0.2 MG/DL CALC MICROALB/CREAT RND (baljinder t code = 64980) <2 MG/G CBC W/AUTO [id number] 00:00:00* Test Item Value Reference Range Interpretation Comme nts WBC (test code = 1001) 7.1 K/UL RBC (test code = 1002) 4.44 M/UL HEMOGLOBIN (test code = 1003) 13.4 G/DL HEMATOCRIT (test code = 1004) 38.9 % MCV (test code = 1005) 87.6 fL MCH (test code = 1006) 30.2 PG MCHC (test code = 1007) 34.4 G/DL RDW (test code = 1038) 12.7 % NEUTROPHILS (test code = 1008) 45.2 % LYMPHOCYTES (test code = 1010) 42.8 % MONOCYTES (test code = 1011) 8.2 % EOSINOPHILS (test code = 1012) 3.0 % BASOPHILS (test code = 1013) 0.8 % PLATELET COUNT (test code = 1015) 227 K/UL CBC W/AUTO [id number] 00:00:00* Test Item Value Reference Range Interpretation Comme nts WBC (test code = 1001) 7.1 K/UL RBC (test code = 1002) 4.44 M/UL HEMOGLOBIN (test code = 1003) 13.4 G/DL HEMATOCRIT (test code = 1004) 38.9 % MCV (test code = 1005) 87.6 fL MCH (test code = 1006) 30.2 PG MCHC (test code = 1007) 34.4 G/DL RDW (test code = 1038) 12.7 % NEUTROPHILS (test code = 1008) 45.2 % LYMPHOCYTES (test code = 1010) 42.8 % MONOCYTES (test code = 1011) 8.2 % EOSINOPHILS (test code = 1012) 3.0 % BASOPHILS (test code = 1013) 0.8 % PLATELET COUNT (test code = 1015) 227 K/UL CBC W/AUTO [id number] 00:00:00* Test Item Value Reference Range Interpretation Comme nts WBC (test code = 1001) 7.1 K/UL RBC (test code = 1002) 4.44 M/UL HEMOGLOBIN (test code = 1003) 13.4 G/DL HEMATOCRIT (test code = 1004) 38.9 % MCV (test code = 1005) 87.6 fL MCH (test code = 1006) 30.2 PG MCHC (test code = 1007) 34.4 G/DL RDW (test code = 1038) 12.7 % NEUTROPHILS (test code = 1008) 45.2 % LYMPHOCYTES (test code = 1010) 42.8 % MONOCYTES (test code = 1011) 8.2 % EOSINOPHILS (test code = 1012) 3.0 % BASOPHILS (test code = 1013) 0.8 % PLATELET COUNT (test code = 1015) 227 K/UL HEMOGLOBIN [id number] 00:00:00* Test Item Value Reference Range Interpretation Comme nts HEMOGLOBIN A1c (test code = 32165) 7.5 % HEMOGLOBIN [id number] 00:00:00* Test Item Value Reference Range Interpretation Comme nts HEMOGLOBIN A1c (test code = 09806) 7.5 % HEMOGLOBIN [id number] 00:00:00* Test Item Value Reference Range Interpretation Comme nts HEMOGLOBIN A1c (test code = 68562) 7.5 % MICROALBUMIN/CREATININE, RANDOM AND [id number] 00:00:00* Test Item Value Reference Range Interpretation Comme nts CREATININE, URINE, CONC. (te st code = 2071) 101.2 MG/DL MICROALBUMIN, RANDOM (test c ode = 77136) <0.2 MG/DL CALC MICROALB/CREAT RND (baljinder t code = 36958) <2 MG/G MICROALBUMIN/CREATININE, RANDOM AND [id number] 00:00:00* Test Item Value Reference Range Interpretation Comme nts CREATININE, URINE, CONC. (te st code = 2071) 101.2 MG/DL MICROALBUMIN, RANDOM (test c ode = 46071) <0.2 MG/DL CALC MICROALB/CREAT RND (baljinder t code = 16720) <2 MG/G LIPID [id number] 00:00:00* Test Item Value Reference Range Interpretation Comme nts CHOLESTEROL (test code = 2210) 218 MG/DL TRIGLYCERIDES (test code = 2232) 173 MG/DL HDL CHOLESTEROL (test code = 2220) 49 MG/DL CALC LDL CHOL (test code = 2237) 134 MG/DL RISK RATIO LDL/HDL (test cod e = 2238) 2.74 RATIO LIPID [id number] 00:00:00* Test Item Value Reference Range Interpretation Comme nts CHOLESTEROL (test code = 2210) 218 MG/DL TRIGLYCERIDES (test code = 2232) 173 MG/DL HDL CHOLESTEROL (test code = 2220) 49 MG/DL CALC LDL CHOL (test code = 2237) 134 MG/DL RISK RATIO LDL/HDL (test cod e = 2238) 2.74 RATIO LIPID [id number] 00:00:00* Test Item Value Reference Range Interpretation Comme nts CHOLESTEROL (test code = 2210) 218 MG/DL TRIGLYCERIDES (test code = 2232) 173 MG/DL HDL CHOLESTEROL (test code = 2220) 49 MG/DL CALC LDL CHOL (test code = 2237) 134 MG/DL RISK RATIO LDL/HDL (test cod e = 2238) 2.74 RATIO COMPREHENSIVE METABOLIC [id number] 00:00:00* Test Item Value Reference Range Interpretation Comme nts GLUCOSE (test code = 2217) 160 MG/DL BUN (test code = 2208) 23 MG/DL CREATININE (test code = 2214) 0.67 MG/DL eGFR AMER. (test cod e = 27445) 106 ML/MIN/1.73 eGFR NON- AMER. (test code = 87076) 92 ML/MIN/1.73 CALC BUN/CREAT (test code = 2235) 34 RATIO SODIUM (test code = 2231) 143 MEQ/L POTASSIUM (test code = 2228) 4.2 MEQ/L CHLORIDE (test code = 2215) 105 MEQ/L CARBON DIOXIDE (test code = 2206) 25 MEQ/L CALCIUM (test code = 2209) 9.9 MG/DL PROTEIN, TOTAL (test code = 2229) 7.2 G/DL ALBUMIN (test code = 2201) 4.0 G/DL CALC GLOBULIN (test code = 2240) 3.2 G/DL CALC A/G RATIO (test code = 2234) 1.3 RATIO BILIRUBIN, TOTAL (test code = 2207) 0.4 MG/DL ALKALINE PHOSPHATASE (test code = 2204) 82 U/L AST (test code = 2218) 22 U/L ALT (test code = 2219) 22 U/L COMPREHENSIVE METABOLIC [id number] 00:00:00* Test Item Value Reference Range Interpretation Comme nts GLUCOSE (test code = 2217) 160 MG/DL BUN (test code = 2208) 23 MG/DL CREATININE (test code = 2214) 0.67 MG/DL eGFR AMER. (test cod e = 84357) 106 ML/MIN/1.73 eGFR NON- AMER. (test code = 93877) 92 ML/MIN/1.73 CALC BUN/CREAT (test code = 2235) 34 RATIO SODIUM (test code = 2231) 143 MEQ/L POTASSIUM (test code = 2228) 4.2 MEQ/L CHLORIDE (test code = 2215) 105 MEQ/L CARBON DIOXIDE (test code = 2206) 25 MEQ/L CALCIUM (test code = 2209) 9.9 MG/DL PROTEIN, TOTAL (test code = 2229) 7.2 G/DL ALBUMIN (test code = 2201) 4.0 G/DL CALC GLOBULIN (test code = 2240) 3.2 G/DL CALC A/G RATIO (test code = 2234) 1.3 RATIO BILIRUBIN, TOTAL (test code = 2207) 0.4 MG/DL ALKALINE PHOSPHATASE (test code = 2204) 82 U/L AST (test code = 2218) 22 U/L ALT (test code = 2219) 22 U/L COMPREHENSIVE METABOLIC [id number] 00:00:00* Test Item Value Reference Range Interpretation Comme nts GLUCOSE (test code = 2217) 160 MG/DL BUN (test code = 2208) 23 MG/DL CREATININE (test code = 2214) 0.67 MG/DL eGFR AMER. (test cod e = 76679) 106 ML/MIN/1.73 eGFR NON- AMER. (test code = 84888) 92 ML/MIN/1.73 CALC BUN/CREAT (test code = 2235) 34 RATIO SODIUM (test code = 2231) 143 MEQ/L POTASSIUM (test code = 2228) 4.2 MEQ/L CHLORIDE (test code = 2215) 105 MEQ/L CARBON DIOXIDE (test code = 2206) 25 MEQ/L CALCIUM (test code = 2209) 9.9 MG/DL PROTEIN, TOTAL (test code = 2229) 7.2 G/DL ALBUMIN (test code = 2201) 4.0 G/DL CALC GLOBULIN (test code = 2240) 3.2 G/DL CALC A/G RATIO (test code = 2234) 1.3 RATIO BILIRUBIN, TOTAL (test code = 2207) 0.4 MG/DL ALKALINE PHOSPHATASE (test code = 2204) 82 U/L AST (test code = 2218) 22 U/L ALT (test code = 2219) 22 U/L CBC W/AUTO [id number] 00:00:00* Test Item Value Reference Range Interpretation Comme nts WBC (test code = 1001) 7.1 K/UL RBC (test code = 1002) 4.44 M/UL HEMOGLOBIN (test code = 1003) 13.4 G/DL HEMATOCRIT (test code = 1004) 38.9 % MCV (test code = 1005) 87.6 fL MCH (test code = 1006) 30.2 PG MCHC (test code = 1007) 34.4 G/DL RDW (test code = 1038) 12.7 % NEUTROPHILS (test code = 1008) 45.2 % LYMPHOCYTES (test code = 1010) 42.8 % MONOCYTES (test code = 1011) 8.2 % EOSINOPHILS (test code = 1012) 3.0 % BASOPHILS (test code = 1013) 0.8 % PLATELET COUNT (test code = 1015) 227 K/UL CBC W/AUTO [id number] 00:00:00* Test Item Value Reference Range Interpretation Comme nts WBC (test code = 1001) 7.1 K/UL RBC (test code = 1002) 4.44 M/UL HEMOGLOBIN (test code = 1003) 13.4 G/DL HEMATOCRIT (test code = 1004) 38.9 % MCV (test code = 1005) 87.6 fL MCH (test code = 1006) 30.2 PG MCHC (test code = 1007) 34.4 G/DL RDW (test code = 1038) 12.7 % NEUTROPHILS (test code = 1008) 45.2 % LYMPHOCYTES (test code = 1010) 42.8 % MONOCYTES (test code = 1011) 8.2 % EOSINOPHILS (test code = 1012) 3.0 % BASOPHILS (test code = 1013) 0.8 % PLATELET COUNT (test code = 1015) 227 K/UL CBC W/AUTO [id number] 00:00:00* Test Item Value Reference Range Interpretation Comme nts WBC (test code = 1001) 7.1 K/UL RBC (test code = 1002) 4.44 M/UL HEMOGLOBIN (test code = 1003) 13.4 G/DL HEMATOCRIT (test code = 1004) 38.9 % MCV (test code = 1005) 87.6 fL MCH (test code = 1006) 30.2 PG MCHC (test code = 1007) 34.4 G/DL RDW (test code = 1038) 12.7 % NEUTROPHILS (test code = 1008) 45.2 % LYMPHOCYTES (test code = 1010) 42.8 % MONOCYTES (test code = 1011) 8.2 % EOSINOPHILS (test code = 1012) 3.0 % BASOPHILS (test code = 1013) 0.8 % PLATELET COUNT (test code = 1015) 227 K/UL HEMOGLOBIN [id number] 00:00:00* Test Item Value Reference Range Interpretation Comme nts HEMOGLOBIN A1c (test code = 97378) 7.5 % HEMOGLOBIN [id number] 00:00:00* Test Item Value Reference Range Interpretation Comme nts HEMOGLOBIN A1c (test code = 16624) 7.5 % HEMOGLOBIN [id number] 00:00:00* Test Item Value Reference Range Interpretation Comme nts HEMOGLOBIN A1c (test code = 69837) 7.5 % MICROALBUMIN/CREATININE, RANDOM AND [id number] 00:00:00* Test Item Value Reference Range Interpretation Comme nts CREATININE, URINE, CONC. (te st code = 2071) 101.2 MG/DL MICROALBUMIN, RANDOM (test c ode = 68887) <0.2 MG/DL CALC MICROALB/CREAT RND (baljinder t code = 93870) <2 MG/G MICROALBUMIN/CREATININE, RANDOM AND [id number] 00:00:00* Test Item Value Reference Range Interpretation Comme nts CREATININE, URINE, CONC. (te st code = 2071) 101.2 MG/DL MICROALBUMIN, RANDOM (test c ode = 72752) <0.2 MG/DL CALC MICROALB/CREAT RND (baljinder t code = 19254) <2 MG/G LIPID [id number] 00:00:00* Test Item Value Reference Range Interpretation Comme nts CHOLESTEROL (test code = 2210) 218 MG/DL TRIGLYCERIDES (test code = 2232) 173 MG/DL HDL CHOLESTEROL (test code = 2220) 49 MG/DL CALC LDL CHOL (test code = 2237) 134 MG/DL RISK RATIO LDL/HDL (test cod e = 2238) 2.74 RATIO LIPID [id number] 00:00:00* Test Item Value Reference Range Interpretation Comme nts CHOLESTEROL (test code = 2210) 218 MG/DL TRIGLYCERIDES (test code = 2232) 173 MG/DL HDL CHOLESTEROL (test code = 2220) 49 MG/DL CALC LDL CHOL (test code = 2237) 134 MG/DL RISK RATIO LDL/HDL (test cod e = 2238) 2.74 RATIO COMPREHENSIVE METABOLIC [id number] 00:00:00* Test Item Value Reference Range Interpretation Comme nts GLUCOSE (test code = 2217) 160 MG/DL BUN (test code = 2208) 23 MG/DL CREATININE (test code = 2214) 0.67 MG/DL eGFR AMER. (test cod e = 96130) 106 ML/MIN/1.73 eGFR NON- AMER. (test code = 20887) 92 ML/MIN/1.73 CALC BUN/CREAT (test code = 2235) 34 RATIO SODIUM (test code = 2231) 143 MEQ/L POTASSIUM (test code = 2228) 4.2 MEQ/L CHLORIDE (test code = 2215) 105 MEQ/L CARBON DIOXIDE (test code = 2206) 25 MEQ/L CALCIUM (test code = 2209) 9.9 MG/DL PROTEIN, TOTAL (test code = 2229) 7.2 G/DL ALBUMIN (test code = 2201) 4.0 G/DL CALC GLOBULIN (test code = 2240) 3.2 G/DL CALC A/G RATIO (test code = 2234) 1.3 RATIO BILIRUBIN, TOTAL (test code = 2207) 0.4 MG/DL ALKALINE PHOSPHATASE (test code = 2204) 82 U/L AST (test code = 2218) 22 U/L ALT (test code = 2219) 22 U/L COMPREHENSIVE METABOLIC [id number] 00:00:00* Test Item Value Reference Range Interpretation Comme nts GLUCOSE (test code = 2217) 160 MG/DL BUN (test code = 2208) 23 MG/DL CREATININE (test code = 2214) 0.67 MG/DL eGFR AMER. (test cod e = 92617) 106 ML/MIN/1.73 eGFR NON- AMER. (test code = 41663) 92 ML/MIN/1.73 CALC BUN/CREAT (test code = 2235) 34 RATIO SODIUM (test code = 2231) 143 MEQ/L POTASSIUM (test code = 2228) 4.2 MEQ/L CHLORIDE (test code = 2215) 105 MEQ/L CARBON DIOXIDE (test code = 2206) 25 MEQ/L CALCIUM (test code = 2209) 9.9 MG/DL PROTEIN, TOTAL (test code = 2229) 7.2 G/DL ALBUMIN (test code = 2201) 4.0 G/DL CALC GLOBULIN (test code = 2240) 3.2 G/DL CALC A/G RATIO (test code = 2234) 1.3 RATIO BILIRUBIN, TOTAL (test code = 2207) 0.4 MG/DL ALKALINE PHOSPHATASE (test code = 2204) 82 U/L AST (test code = 2218) 22 U/L ALT (test code = 2219) 22 U/L CBC W/AUTO [id number] 00:00:00* Test Item Value Reference Range Interpretation Comme nts WBC (test code = 1001) 7.1 K/UL RBC (test code = 1002) 4.44 M/UL HEMOGLOBIN (test code = 1003) 13.4 G/DL HEMATOCRIT (test code = 1004) 38.9 % MCV (test code = 1005) 87.6 fL MCH (test code = 1006) 30.2 PG MCHC (test code = 1007) 34.4 G/DL RDW (test code = 1038) 12.7 % NEUTROPHILS (test code = 1008) 45.2 % LYMPHOCYTES (test code = 1010) 42.8 % MONOCYTES (test code = 1011) 8.2 % EOSINOPHILS (test code = 1012) 3.0 % BASOPHILS (test code = 1013) 0.8 % PLATELET COUNT (test code = 1015) 227 K/UL CBC W/AUTO [id number] 00:00:00* Test Item Value Reference Range Interpretation Comme nts WBC (test code = 1001) 7.1 K/UL RBC (test code = 1002) 4.44 M/UL HEMOGLOBIN (test code = 1003) 13.4 G/DL HEMATOCRIT (test code = 1004) 38.9 % MCV (test code = 1005) 87.6 fL MCH (test code = 1006) 30.2 PG MCHC (test code = 1007) 34.4 G/DL RDW (test code = 1038) 12.7 % NEUTROPHILS (test code = 1008) 45.2 % LYMPHOCYTES (test code = 1010) 42.8 % MONOCYTES (test code = 1011) 8.2 % EOSINOPHILS (test code = 1012) 3.0 % BASOPHILS (test code = 1013) 0.8 % PLATELET COUNT (test code = 1015) 227 K/UL CBC W/AUTO [id number] 00:00:00* Test Item Value Reference Range Interpretation Comme nts WBC (test code = 1001) 7.1 K/UL RBC (test code = 1002) 4.44 M/UL HEMOGLOBIN (test code = 1003) 13.4 G/DL HEMATOCRIT (test code = 1004) 38.9 % MCV (test code = 1005) 87.6 fL MCH (test code = 1006) 30.2 PG MCHC (test code = 1007) 34.4 G/DL RDW (test code = 1038) 12.7 % NEUTROPHILS (test code = 1008) 45.2 % LYMPHOCYTES (test code = 1010) 42.8 % MONOCYTES (test code = 1011) 8.2 % EOSINOPHILS (test code = 1012) 3.0 % BASOPHILS (test code = 1013) 0.8 % PLATELET COUNT (test code = 1015) 227 K/UL HEMOGLOBIN [id number] 00:00:00* Test Item Value Reference Range Interpretation Comme nts HEMOGLOBIN A1c (test code = 76275) 7.5 % HEMOGLOBIN [id number] 00:00:00* Test Item Value Reference Range Interpretation Comme nts HEMOGLOBIN A1c (test code = 49409) 7.5 % HEMOGLOBIN [id number] 00:00:00* Test Item Value Reference Range Interpretation Comme nts HEMOGLOBIN A1c (test code = 89401) 7.5 % MICROALBUMIN/CREATININE, RANDOM AND [id number] 00:00:00* Test Item Value Reference Range Interpretation Comme nts CREATININE, URINE, CONC. (te st code = 2071) 101.2 MG/DL MICROALBUMIN, RANDOM (test c ode = 58111) <0.2 MG/DL CALC MICROALB/CREAT RND (baljinder t code = 82217) <2 MG/G MICROALBUMIN/CREATININE, RANDOM AND [id number] 00:00:00* Test Item Value Reference Range Interpretation Comme nts CREATININE, URINE, CONC. (te st code = 2071) 101.2 MG/DL MICROALBUMIN, RANDOM (test c ode = 77190) <0.2 MG/DL CALC MICROALB/CREAT RND (baljinder t code = 20486) <2 MG/G LIPID [id number] 00:00:00* Test Item Value Reference Range Interpretation Comme nts CHOLESTEROL (test code = 2210) 218 MG/DL TRIGLYCERIDES (test code = 2232) 173 MG/DL HDL CHOLESTEROL (test code = 2220) 49 MG/DL CALC LDL CHOL (test code = 2237) 134 MG/DL RISK RATIO LDL/HDL (test cod e = 2238) 2.74 RATIO LIPID [id number] 00:00:00* Test Item Value Reference Range Interpretation Comme nts CHOLESTEROL (test code = 2210) 218 MG/DL TRIGLYCERIDES (test code = 2232) 173 MG/DL HDL CHOLESTEROL (test code = 2220) 49 MG/DL CALC LDL CHOL (test code = 2237) 134 MG/DL RISK RATIO LDL/HDL (test cod e = 2238) 2.74 RATIO COMPREHENSIVE METABOLIC [id number] 00:00:00* Test Item Value Reference Range Interpretation Comme nts GLUCOSE (test code = 2217) 160 MG/DL BUN (test code = 2208) 23 MG/DL CREATININE (test code = 2214) 0.67 MG/DL eGFR AMER. (test cod e = 20973) 106 ML/MIN/1.73 eGFR NON- AMER. (test code = 78945) 92 ML/MIN/1.73 CALC BUN/CREAT (test code = 2235) 34 RATIO SODIUM (test code = 2231) 143 MEQ/L POTASSIUM (test code = 2228) 4.2 MEQ/L CHLORIDE (test code = 2215) 105 MEQ/L CARBON DIOXIDE (test code = 2206) 25 MEQ/L CALCIUM (test code = 2209) 9.9 MG/DL PROTEIN, TOTAL (test code = 2229) 7.2 G/DL ALBUMIN (test code = 2201) 4.0 G/DL CALC GLOBULIN (test code = 2240) 3.2 G/DL CALC A/G RATIO (test code = 2234) 1.3 RATIO BILIRUBIN, TOTAL (test code = 2207) 0.4 MG/DL ALKALINE PHOSPHATASE (test code = 2204) 82 U/L AST (test code = 2218) 22 U/L ALT (test code = 2219) 22 U/L COMPREHENSIVE METABOLIC [id number] 00:00:00* Test Item Value Reference Range Interpretation Comme nts GLUCOSE (test code = 2217) 160 MG/DL BUN (test code = 2208) 23 MG/DL CREATININE (test code = 2214) 0.67 MG/DL eGFR AMER. (test cod e = 93402) 106 ML/MIN/1.73 eGFR NON- AMER. (test code = 69840) 92 ML/MIN/1.73 CALC BUN/CREAT (test code = 2235) 34 RATIO SODIUM (test code = 2231) 143 MEQ/L POTASSIUM (test code = 2228) 4.2 MEQ/L CHLORIDE (test code = 2215) 105 MEQ/L CARBON DIOXIDE (test code = 2206) 25 MEQ/L CALCIUM (test code = 2209) 9.9 MG/DL PROTEIN, TOTAL (test code = 2229) 7.2 G/DL ALBUMIN (test code = 2201) 4.0 G/DL CALC GLOBULIN (test code = 2240) 3.2 G/DL CALC A/G RATIO (test code = 2234) 1.3 RATIO BILIRUBIN, TOTAL (test code = 2207) 0.4 MG/DL ALKALINE PHOSPHATASE (test code = 2204) 82 U/L AST (test code = 2218) 22 U/L ALT (test code = 2219) 22 U/L CBC W/AUTO [id number] 00:00:00* Test Item Value Reference Range Interpretation Comme nts WBC (test code = 1001) 7.1 K/UL RBC (test code = 1002) 4.44 M/UL HEMOGLOBIN (test code = 1003) 13.4 G/DL HEMATOCRIT (test code = 1004) 38.9 % MCV (test code = 1005) 87.6 fL MCH (test code = 1006) 30.2 PG MCHC (test code = 1007) 34.4 G/DL RDW (test code = 1038) 12.7 % NEUTROPHILS (test code = 1008) 45.2 % LYMPHOCYTES (test code = 1010) 42.8 % MONOCYTES (test code = 1011) 8.2 % EOSINOPHILS (test code = 1012) 3.0 % BASOPHILS (test code = 1013) 0.8 % PLATELET COUNT (test code = 1015) 227 K/UL CBC W/AUTO [id number] 00:00:00* Test Item Value Reference Range Interpretation Comme nts WBC (test code = 1001) 7.1 K/UL RBC (test code = 1002) 4.44 M/UL HEMOGLOBIN (test code = 1003) 13.4 G/DL HEMATOCRIT (test code = 1004) 38.9 % MCV (test code = 1005) 87.6 fL MCH (test code = 1006) 30.2 PG MCHC (test code = 1007) 34.4 G/DL RDW (test code = 1038) 12.7 % NEUTROPHILS (test code = 1008) 45.2 % LYMPHOCYTES (test code = 1010) 42.8 % MONOCYTES (test code = 1011) 8.2 % EOSINOPHILS (test code = 1012) 3.0 % BASOPHILS (test code = 1013) 0.8 % PLATELET COUNT (test code = 1015) 227 K/UL HEMOGLOBIN [id number] 00:00:00* Test Item Value Reference Range Interpretation Comme nts HEMOGLOBIN A1c (test code = 90039) 7.5 % HEMOGLOBIN [id number] 00:00:00* Test Item Value Reference Range Interpretation Comme nts HEMOGLOBIN A1c (test code = 55192) 7.5 % MICROALBUMIN/CREATININE, RANDOM AND [id number] 00:00:00* Test Item Value Reference Range Interpretation Comme nts CREATININE, URINE, CONC. (te st code = 2072) 101.2 MG/DL MICROALBUMIN, RANDOM (test c ode = 31594) <0.2 MG/DL CALC MICROALB/CREAT RND (baljinder t code = 60318) <2 MG/G LIPID [id number] 00:00:00* Test Item Value Reference Range Interpretation Comme nts CHOLESTEROL (test code = 2210) 218 MG/DL TRIGLYCERIDES (test code = 2232) 173 MG/DL HDL CHOLESTEROL (test code = 2220) 49 MG/DL CALC LDL CHOL (test code = 2237) 134 MG/DL RISK RATIO LDL/HDL (test cod e = 2238) 2.74 RATIO COMPREHENSIVE METABOLIC [id number] 00:00:00* Test Item Value Reference Range Interpretation Comme nts GLUCOSE (test code = 2217) 160 MG/DL BUN (test code = 2208) 23 MG/DL CREATININE (test code = 2214) 0.67 MG/DL eGFR AMER. (test cod e = 66848) 106 ML/MIN/1.73 eGFR NON- AMER. (test code = 46591) 92 ML/MIN/1.73 CALC BUN/CREAT (test code = 2235) 34 RATIO SODIUM (test code = 2231) 143 MEQ/L POTASSIUM (test code = 2228) 4.2 MEQ/L CHLORIDE (test code = 2215) 105 MEQ/L CARBON DIOXIDE (test code = 2206) 25 MEQ/L CALCIUM (test code = 2209) 9.9 MG/DL PROTEIN, TOTAL (test code = 2229) 7.2 G/DL ALBUMIN (test code = 2201) 4.0 G/DL CALC GLOBULIN (test code = 2240) 3.2 G/DL CALC A/G RATIO (test code = 2234) 1.3 RATIO BILIRUBIN, TOTAL (test code = 2207) 0.4 MG/DL ALKALINE PHOSPHATASE (test code = 2204) 82 U/L AST (test code = 2218) 22 U/L ALT (test code = 2219) 22 U/L CBC W/AUTO [id number] 00:00:00* Test Item Value Reference Range Interpretation Comme nts WBC (test code = 1001) 7.1 K/UL RBC (test code = 1002) 4.44 M/UL HEMOGLOBIN (test code = 1003) 13.4 G/DL HEMATOCRIT (test code = 1004) 38.9 % MCV (test code = 1005) 87.6 fL MCH (test code = 1006) 30.2 PG MCHC (test code = 1007) 34.4 G/DL RDW (test code = 1038) 12.7 % NEUTROPHILS (test code = 1008) 45.2 % LYMPHOCYTES (test code = 1010) 42.8 % MONOCYTES (test code = 1011) 8.2 % EOSINOPHILS (test code = 1012) 3.0 % BASOPHILS (test code = 1013) 0.8 % PLATELET COUNT (test code = 1015) 227 K/UL Toney RennerHEMOGLOBIN [id number] 00:00:00* Test Item Value Reference Range Interpretation Comme nts HEMOGLOBIN A1c (test code = 68110) 7.5 % Toney Renner Notes Date/Time Note Provider Source Toney Renner [facility]2023-08-28 16:15:08 Received cardiac clearance from [facility] per Viviana it was sent on 06/17/[address] Sevilla at [phone] [facility] [facility] [address] [id number] 02:03:43 Pt given printed and verbal discharge instructions regarding epigastric pain/LLQ pain, Prescriptions sent to pt's pharmacy Pt verbalized understanding of instructions,pt encouraged to follow up with pcp and or GI Advised to seek medical attention for new/prolonged/worsening of symptoms, No adverse reaction to meds given in ER noted upon discharge PIV d'cd, dressing to site, catheter in tact. Awake, alert oriented, resp reg unlabored, skin w/d, pt leaving in no apparent distress, [id number] 23:09:10 Provider reports guiac test negative. Pt reports LLQ abd cramping. [place] 418[address]-08-26 22:09:58 Patient states she started having dark stools today Bri Brand [place] [id number] 22:01:47 CC: abdominal pain x 3 days that comes up and garcia Belching repeatedly while in triage. Awake, alert, oriented, resp reg unlabored, skin warm and dry, color appropriate for race, moves all ext without difficulty, amb with no assist Appears in no distress [place] 41826-08-22 08:53:14 ----- Message from Petrona Burnette MD sent at 06/16/2023 1:46 PM CDT ----- Please fax my note to GI: Dr. Saulo Sevilla SHAHEEN note faxed, confirmation received Sun Frazier [place] [id number] 00:32:43 Pt given printed and verbal discharge instructions regarding chest pain, encouraged hydration Pt verbalized understanding of instructions, pt awake alert oriented, resp reg unlabored, skin w/d,color appropriate for race, moves all ext well,pt encouraged to follow up with pcp and or cardiology Advised to seek medical attention for new/prolonged/worsening of symptoms, No adverse reaction to meds given in ER noted upon discharge PIV d'cd, dressing to site, catheter in tact. Awake, alert oriented, resp reg unlabored, skin w/d, pt leaving amb with steady gait, in no apparent distress, Interpretor id #[id number] Marci Valdez [facility] - [id number] 18:19:57 Pt arrived via private car with c/o left side chest wall pain that is worse with deep breathing, per son her left arm "falls asleep". States that the pain has been ongoing x2 days and becoming worse.EKG done in triage. 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 She also reports her left arm is tingling like when you sleep on it too long. Pain is worse upon deep inspiration and palpation. Neuro exam without appreciable deficits. Endorses mild SOB but no vomiting , diaphoresis, dizziness, or weakness. Normal Coronaries on Left Heart Cath. 11/21/2022. History provided by: Patient and relative Chest Pain Pain location: Epigastric and L chest Pain quality: burning Pain radiates to: Does not radiate Pain severity: Mild Onset quality: Sudden Duration: 2 days Timing: Constant Progression: Unchanged Chronicity: Recurrent Context: at rest Relieved by: None tried Worsened by: Deep breathing and certain positions Associated symptoms: shortness of breath Associated symptoms: no abdominal pain, no anorexia, no anxiety, no back pain, no claudication, no cough, no diaphoresis, no dysphagia, no fatigue, no fever, no headache, no heartburn, no lower extremity edema, no nausea, no near-syncope, no numbness, no orthopnea, no palpitations, no PND, no vomiting and no weakness Past Medical History/Immunizations: Past Medical History: Diagnosis Date Diabetes mellitus Hyperlipidemia Hypertension Tetanus received in last 5 years: Yes Allergies: Allergies Allergen Reactions Advil [Ibuprofen] Rash Enalapril Cough Past Social History: Tobacco Use Never smoked or used smokeless tobacco. Vaping Use Never used Alcohol Use Never. Drug Use Never. Past Surgical History: Past Surgical History: Procedure Laterality Date HYSTERECTOMY 10/27/2011 JOINT SURGERY Bilateral 03/27/2017 PANCREAS TRANSPLANT RECIPIENT 10/27/2016 Review of Systems: Review of Systems Constitutional: Negative for diaphoresis, fatigue and fever. HENT: Negative for trouble swallowing. Respiratory: Positive for shortness of breath. Negative for cough. Cardiovascular: Positive for chest pain. Negative for palpitations, orthopnea, claudication, PND and near-syncope. Gastrointestinal: Negative for abdominal pain, anorexia, heartburn, nausea and vomiting. Genitourinary: Negative. Musculoskeletal: Negative for back pain. Skin: Negative. Neurological: Negative for weakness, numbness and headaches. Psychiatric/Behavioral: Negative. All other systems reviewed and are negative. Endocrine: Endocrine negative Physical Exam: ED Triage Vitals [06/01/23 1821] Weight 78.9 kg (174 lb) Actual or estimated Estimated by patient/family report Height BP (!) 164/96 Pulse 68 Resp 16 Temp 37.1 ?C (98.7 ?F) Temp source Oral SpO2 96 % Measured on Room air Physical Exam Vitals and nursing note reviewed. Constitutional: General: She is not in acute distress. Appearance: She is well-developed. She is obese. She is not ill-appearing, toxic-appearing or diaphoretic. HENT: Head: Normocephalic. Right Ear: External ear normal. Left Ear: External ear normal. Nose: Nose normal. Mouth/Throat: Mouth: Mucous membranes are moist. Pharynx: Oropharynx is clear. No oropharyngeal exudate or posterior oropharyngeal erythema. Eyes: General: No scleral icterus. Right eye: No discharge. Left eye: No discharge. Extraocular Movements: Extraocular movements intact. Conjunctiva/sclera: Conjunctivae normal. Pupils: Pupils are equal, round, and reactive to light. Neck: Vascular: No carotid bruit. Cardiovascular: Rate and Rhythm: Normal rate and regular rhythm. Pulses: Normal pulses. Heart sounds: Normal heart sounds. No murmur heard. No friction rub. No gallop. Pulmonary: Effort: Pulmonary effort is normal. No respiratory distress. Breath sounds: Normal breath sounds. No stridor. No wheezing, rhonchi or rales. Chest: Chest wall: No tenderness. Abdominal: General: Abdomen is flat. Bowel sounds are normal. There is no distension. Palpations: Abdomen is soft. There is no mass. Tenderness: There is no abdominal tenderness. There is no right CVA tenderness, left CVA tenderness, guarding or rebound. Hernia: No hernia is present. Musculoskeletal: General: No swelling, tenderness, deformity or signs of injury. Normal range of motion. Cervical back: Normal range of motion and neck supple. No rigidity or tenderness. Right lower leg: No edema. Left lower leg: No edema. Lymphadenopathy: Cervical: No cervical adenopathy. Skin: General: Skin is warm and dry. Capillary Refill: Capillary refill takes less than 2 seconds. Coloration: Skin is not jaundiced or pale. Findings: No bruising, erythema or lesion. Neurological: General: No focal deficit present. Mental Status: She is alert and oriented to person, place, and time. Cranial Nerves: No cranial nerve deficit. Sensory: No sensory deficit. Motor: No weakness. Coordination: Coordination normal. Gait: Gait normal. Psychiatric: Mood and Affect: Mood normal. Behavior: Behavior normal. Thought Content: Thought content normal. Judgment: Judgment normal. Radiology: reviewed by me XR CHEST 1 VW Final Result ORDERING CLINICIAN: BETSEY BOSS TECHNIQUE: Single view of the chest STUDY QUALITY: Adequate INDICATION: Chest pain COMPARISON: 03/11/2023 DISCUSSION: There is moderate cardiomegaly without evidence of fluid overload. There are no focal consolidations, pleural effusions or pneumothoraces. There is no mediastinal widening. There is moderate atherosclerosis in the thoracic aorta. IMPRESSION No acute cardiopulmonary disease RL: [id number] AFC: [id number] End of report Lab Results:reviewed by me : troponin x2 negative, BNP negative no other significant abnormality Lab Results CBC WITH DIFF - Abnormal Result Value Ref Range WBC 7.72 4.30 - 11.10 10*3/?L RBC 4.31 3.93 - 5.25 10*6/?L HGB 13.1 11.6 - 15.0 g/dL HCT 39.1 35.7 - 45.2 % MCV 90.7 80.6 - 95.5 fL MCH 30.4 25.9 - 32.8 pg MCHC 33.5 31.6 - 35.1 g/dL RDW-SD 46.0 39.0 - 49.9 fL RDW-CV 13.7 12.0 - 15.5 % PLT 221 166 - 358 10*3/?L MPV 11.2 9.5 - 12.9 fL NRBC/100 WBC 0.0 0.0 - 10.0 /100 WBCs NRBC x10^3 <0.01 10*3/?L GRAN MAT (NEUT) % 42.7 % IMM GRAN % 0.10 % LYMPH % 43.4 % MONO % 9.5 % EOS % 3.5 % BASO % 0.8 % GRAN MAT x10^3(ANC) 3.30 1.88 - 7.09 10*3/uL IMM GRAN x10^3 <0.03 0.00 - 0.06 10*3/uL LYMPH x10^3 3.35 (*) 1.32 - 3.29 10*3/uL MONO x10^3 0.73 0.33 - 0.92 10*3/uL EOS x10^3 0.27 0.03 - 0.39 10*3/uL BASO x10^3 0.06 0.01 - 0.07 10*3/uL COMP. METABOLIC PANEL (96704) - Abnormal NA 142 135 - 145 mmol/L K 3.8 3.5 - 5.0 mmol/L CL 102 98 - 108 mmol/L CO2 TOTAL 30 23 - 31 mmol/L AGAP 10 2 - 16 BUN 24 (*) 7 - 23 mg/dL GLUCOSE 219 (*) 70 - 110 mg/dL CREATININE 0.76 0.50 - 1.04 mg/dL TOTAL BILI 0.4 0.1 - 1.1 mg/dL CALCIUM 9.9 8.6 - 10.6 mg/dL T PROTEIN 8.3 (*) 6.3 - 8.2 g/dL ALBUMIN 4.3 3.5 - 5.0 g/dL ALK PHOS 103 34 - 122 U/L ALTv 36 (*) 5 - 35 U/L AST(SGOT) 35 13 - 40 U/L eGFR 75.0 mL/min/1.73m2 LIPASE - Normal LIPASE 105 0 - 220 U/L TROPONIN I - Normal TROPONIN I 0.003 <=0.034 ng/mL N-TERMINAL PRO-BNP - Normal NT-proBNP 92 <=125 pg/mL MAGNESIUM - Normal MAGNESIUM 1.9 1.7 - 2.4 mg/dL TROPONIN I - Normal TROPONIN I 0.004 <=0.034 ng/mL EKG: If EKG completed, see Procedure Note. Orders and Treatments: Orders Placed This Encounter Procedures XR CHEST 1 VW CBC WITH DIFF COMP. METABOLIC PANEL (18734) LIPASE TROPONIN I N-TERMINAL PRO-BNP MAGNESIUM TROPONIN I Orders Placed This Encounter Medications aspirin chewable tablet 324 mg famotidine (PEPCID (PF)) injection 20 mg HYDROcodone-acetaminophen (NORCO 5) 5-325 mg tablet 1 tablet sucralfate 1 gram tablet First Provider Eval: ED Events Date/Time Event User Comments 06/01/231815 Medical Screening Begins JIM BOSS -- 06/01/231815 First Provider Evaluation JIM BOSS -- No notes of EC Admission Criteria type on file. ED COURSE ED Course as of 06/01/232223 Sun Jun 01, [id number] Troponin negative, will treat for musculoskeletal pain and repeat troponin, if negative will discharge [PD] 1932 Labs pending, EKG unchanged from past , CXR with cardiomegaly no signs of fluid overload [PD] ED Course User Index [PD] Betsey Boss NP Diagnosis/Impression as of 06/01/232223 Chest pain, unspecified type Atypical chest pain Primary hypertension Type 2 diabetes mellitus without complication, without long-term current use of insulin Reflux gastritis Obesity (BMI 30-39.9) Procedures: EKG-12 Lead ROUTINE ONCE Date/Time: 06/01/2023 6:36 PM Performed by: Betsey Boss NP Authorized by: Betsey Boss NP Previous ECG: Previous ECG: Compared to current Similarity: No change Interpretation: Interpretation: normal Rate: ECG rate: 69 ECG rate assessment: normal Rhythm: Rhythm: sinus rhythm Ectopy: Ectopy: none QRS: QRS axis: Normal QRS intervals: Normal QRS conduction: normal ST segments: ST segments: Normal T waves: T waves: normal Q waves: Abnormal Q-waves: not present Other findings: Other findings: LVH MDM: Medical Decision Making Justyna Martinez is a 72 year old female who presents to the ED accompanied by family with complaint of epigastric and left chest pain described as burning, similar to past, this has been ongoing over the past 2 days. She also reports her left arm is tingling like when you sleep on it too long. Pain is worse upon deep inspiration and palpation. Neuro exam without appreciable deficits. Endorses mild SOB but no vomiting , diaphoresis, dizziness, or weakness. Normal Coronaries on Left Heart Cath. 11/21/2022. Differentials include, SAMIR, ACS, CHF, gastritis, PUD, esophagitis, electrolyte abnormality , pancreatitis, cholecystitis Plan: XR CHEST 1 VW CBC WITH DIFF COMP. METABOLIC PANEL (23149) LIPASE TROPONIN I N-TERMINAL PRO-BNP MAGNESIUM Problems Addressed: Atypical chest pain: acute illness or injury Details: ekg , unchanged, troponin x 2 negative Chest pain, unspecified type: acute illness or injury Details: ekg , unchanged, troponin x 2 negative Primary hypertension: chronic illness or injury Details: continue home medicaitons and follow up [facility] cardiology for further management Reflux gastritis: chronic illness or injury Details: continue your home medications and follow up with GI Type 2 diabetes mellitus without complication, without long-term current use of insulin: chronic illness or injury Amount and/or Complexity of Data Reviewed Labs: ordered. Decision-making details documented in ED Course. Details: no significant abnormality ,troponin x 2 negative Radiology: ordered. Decision-making details documented in ED Course. Details: cardiomegaly unchanged , no pulmonary edema or pneumonia ECG/medicine tests: ordered and independent interpretation performed. Decision- making details documented in ED Course. Details: unchanged from prior Risk OTC drugs. Prescription drug management. Flowsheet Documentation: Patient Vitals for the past 24 hrs: BP Temp Temp src Pulse Resp SpO2 Weight 06/01/23 2119 (!) 169/89 37.1 ?C (98.7 ?F) Oral 68 20 97 % -- 06/01/23 1821 (!) 164/96 37.1 ?C (98.7 ?F) Oral 68 16 96 % 78.9 kg (174 lb) Scoring Tools: Heart score low risk for MACE Heart cath October 2022 normal coronaries, pain atypical chest pain more consistent with esophagealspasm. 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 Recommend continue all GI medications as prescribed Disposition/Condition: ED Disposition ED Disposition Disch - Home Condition Stable Comment -- Discharge Medications: Patient's Medications START taking these medications No medications on file CONTINUE taking these medications which have NOT CHANGED AMLODIPINE 5 MG TABLET Take 5 mg by mouth daily. APIXABAN 5 MG TABLET Take 5 mg by mouth 2 (two) times daily. ATORVASTATIN 40 MG TABLET Take 40 mg by mouth at bedtime. GLIPIZIDE 10 MG TABLET Take 10 mg by mouth 2 (two) times daily. METFORMIN 1,000 MG TABLET Take 1,000 mg by mouth 2 (two) times daily with meals. NAPROXEN 500 MG TABLET Take 500 mg by mouth 2 (two) times daily with meals. OMEPRAZOLE 40 MG CAPSULE Take 1 capsule by mouth daily. PANTOPRAZOLE (PROTONIX) 20 MG EC TABLET Take 1 tablet by mouth daily. SITAGLIPTIN 25 MG TABLET Take 25 mg by mouth daily. SUCRALFATE 1 GRAM TABLET TAKE 1 TABLET BY MOUTH THREE TIMES DAILY BEFORE MEAL(S) FOR GASTRITIS START taking Modified Medications as Prescribed No medications on file STOP taking these medications CYCLOBENZAPRINE 10 MG TABLET Take 1 tablet by mouth 3 (three) times daily as needed for Muscle Spasms. NIRMATRELVIR-RITONAVIR 300 MG (150 MG X 2)-100 MG TABLET Take 3 tablets by mouth 2 (two) times daily. Follow-up: Cardiology Dr Burnette and Gastroenterology Dr Bolton Contact information for follow-up Pcp, Patient Does Not Have A Relationship: PCP - General [address] [facility] [id number] Electronically signed by: Betsey Boss NP 06/01/235 Associated attestation - Solomon Millan MD - 06/02/2023 12:04 AM CDT " I was personally available for consultation in the Emergency Department during this Patient evaluation/encounter by QUANG Enoch " [id number] 11:[id number] [place] [address] PATIENT NAME: DANIELLE MARTINEZ ADMIT DATE: 02/02/19 ACCOUNT NO: [id number] ROOM NO: H.436 AGE: 68 REPORT TYPE: DISCHARGE SUMMARY SEX: F ADMITTING PHYSICIAN:Krysta Villarreal MD ATTENDING PHYSICIAN:Krysta Villarreal MD ADMISSION DATE: 02/02/2019 DISCHARGE DATE: 02/05/2019 DIAGNOSES: 1. Abdominal pain secondary to epiploic appendagitis. 2. Retractile mesenteritis. 3. Enteritis. 4. Morbid obesity. 5. History of pancreatitis, status post pancreatic surgery. HISTORY OF PRESENT ILLNESS: This is a 68-year-old female with chief complaint of abdominal pain, who presented to the ED with abdominal pain that started few hours ago located in the mid abdomen. No vomiting. PAST MEDICAL HISTORY: Diabetes mellitus, hypertension, and pancreatitis. PAST SURGICAL HISTORY: Pancreatectomy. SOCIAL HISTORY: Never smoked. ALLERGIES: TO IBUPROFEN. PHYSICAL EXAMINATION: VITAL SIGNS: Pulse oximeter 97%, BP 155/78, respirations 18, pulse 79, and temperature 98.8. GENERAL APPEARANCE: The patient is alert and awake. HEAD, EYES, EARS, NOSE, AND THROAT: Normal conjunctivae. NECK: Full range of motion. CARDIOVASCULAR SYSTEM: Regular rate and rhythm. ABDOMEN: Soft. No rebound. Tender to all 4 quadrants. EXTREMITIES: There is a well-healed midline surgical scar. DIAGNOSTIC AND LABORATORY DATA: Sodium 139, potassium 3.9, chloride 106, carbon dioxide 25, BUN 16, creatinine 0.17, and glucose 170. Lipase 44. WBC 8, hemoglobin 11, and hematocrit 35. Chest x-ray: No acute cardiopulmonary abnormality. CT abdomen and pelvis without contrast: Focal area of haziness within the anterior abdominal mesentery with associated subcentimeter soft tissue density and calcification. This area is adjacent to the transverse colon. Findings could represent epiploic appendagitis, mesenteric infarct, or even an area of mesenteric infiltration secondary to metastatic process. Recommended correlate PATIENT NAME: DANIELLE MARTINEZ with symptomatology. Mildly decompressed gallbladder with evidence of gallbladder sludge versus tiny stone, bilateral renal scarring, there is thickening of the cortex in a nodular configuration the upper pole of the left kidney, this may represent an area of preserved cortex; however, a focal solid nodule is not excluded. HOSPITAL COURSE: The patient was admitted with acute abdominal pain, suspect epiploic appendagitis, suspect diverticulitis, suspected enteritis and mesenteritis. Started clear liquids, IV fluids, Zosyn, analgesics, and antiemetics. Surgical consultation was requested. Following day, the patient continued with abdominal pain. No vomiting. Dr. Salvador Hensley performed a surgical consultation. His impression: Abdominal pain, unknown etiology. Pain was improving spontaneously. No evidence of surgical abdomen, pain nonspecific. Recommend diet as tolerated. On 02/04/2019, the patient continued with abdominal pain. No vomiting or fever. Advance diet as tolerated. Continue Zosyn. Following day, abdominal pain improved and no new complaint. Stop IV antibiotics. Placed on p.o. Levaquin and Flagyl x7 days and the patient was cleared for discharge. DISCHARGE INSTRUCTIONS: DISPOSITION: Justyna Martinez was discharged home on 02/05/2019. FOLLOWUP APPOINTMENT: Follow up an appointment as instructed. RECOMMENDATIONS: Given. DISCHARGE MEDICATIONS: Levaquin and Flagyl. Dictated By: JOHN Aguirre Professor Of Management for Krysta Villarreal MD WT: DS:JULIET/KEN/KATTY Conf#: [id number]/DID#: [id number] Authenticated by Ru Rivera On 03/11/2019 09:51:54 AM Authenticated by Krysta Villarreal MD On 03/14/2019 08:23:54 AM at 0824 at 0824 PATIENT NAME: DANIELLE MARTINEZ 07:07:00 [facility] Hospitalist Progress Note REPORT#:[id number] REPORT STATUS: Signed DATE:02/05/19 TIME: 706 PATIENT: DANIELLE MARTINEZ UNIT #: [id number] ROOM/BED: 436-A : 51 AGE: 68 SEX: F ATTEND: Krysta Villarreal MD ADM AUTHOR: Krysta Villarreal MD * ALL edits or amendments must be made on the electronic/computer document * Subjective Chief Complaint: abdominal pain now much improved. Objective General VS/I O: Vital Signs: Date Time Temp Pulse Resp B/P B/P Pulse O2 O2 Flow FiO2 Mean Ox Delivery Rate 02/05 0629 98.6 64 16 138/83 101.4 97 Room air 02/04 2349 98.4 71 20 158/77 103.9 94 Room air 02/04 1854 97.7 69 18 147/82 104.0 96 Room air 02/04 1844 96 Room air 02/04 1450 98.1 64 18 139/79 99.2 94 Room air 24 hour I O ending at 0700: 02/05 0700 02/04 1900 Intake Total 1500 Output Total Balance 1500 Intake, Oral 1500 Number 1 Bowel Movements Number Voids 8 Patient 81.647 kg Weight Physical Exam Head/Eyes: atraumatic, clear cornea, EOMI, normal conjunctiva/sclera, normal eyelids/periorb., normocephalic, PERRL ENT: normal dentition, normal ear left, normal ear right, normal nose, normal pharynx, normal sinus Neck: full range of motion, non-tender, normal thyroid, supple/no meningismus, no bruit/NL carotids, no JVD, no masses or swelling Cardiovascular: normal capillary refill, regular rate rhythm Respiratory: clear to auscultation, no distress Abdomen: tenderness, normal bowel sounds, soft, no distention, no guarding, no hernia, no mass/organomegaly, no rebound Extremities: moves all, normal capillary refill, normal range of motion, no edema Musculoskeletal: normal inspection Neuro/RESIDENT CAREGIVER: alert, oriented X 3 Skin: dry, intact Results Findings/Data: Laboratory Tests 02/05 02/04 02/04 02/04 0601 2038 1635 1130 Chemistry POC Glucose (70 - 105 mg/dL) 168 H 158 H 136 H 192 H Diagnosis, Assessment Plan Hospital course to date: abdominal pain has not improved so far Problem List/A P: 1. Epiploic appendagitis pt now tolerating solid diet; stop iv antibiotics 2. Retractile mesenteritis 3. Enteritis Free Text DxA P Notes Free text DxA P notes: .dc home today . high fiber diet . levaquin and flagyl x 7 days . f.up with pcp in a week at 0710 RPT #:[id number] END OF [id number] 07:09:00 [facility] ([facility]) Hospitalist Progress Note REPORT#:[id number] REPORT STATUS: Signed DATE:02/04/19 TIME: 708 PATIENT: DANIELLE MARTINEZ UNIT #: [id number] ROOM/BED: [address] : 51 AGE: 68 SEX: F ATTEND: Krysta Villarreal MD ADM AUTHOR: Krysta Villarreal MD * ALL edits or amendments must be made on the electronic/computer document * Subjective Chief Complaint: continues to have abdominal pain. HPI: no vomiting, fever or diarrhea Objective General VS/I O: Vital Signs: Date Time Temp Pulse Resp B/P B/P Pulse O2 O2 Flow FiO2 Mean Ox Delivery Rate 02/04 0604 98.4 58 17 131/61 84.1 97 Room air 02/03 2153 98.6 60 18 179/90 119.6 97 Room air 02/03 2130 96 Room air 21 02/03 1836 97.3 64 18 135/79 97.9 97 Room air 02/03 1409 98.6 65 18 155/82 106.0 97 Room air 02/03 1011 97 Room air 24 hour I O ending at 0700: 02/04 0700 02/03 1900 Intake Total 2100.00 400 Output Total Balance 2100.00 400 Intake, IV 2100.00 Intake, Oral 400 Number 1 Bowel Movements Number Voids 3 6 Physical Exam Head/Eyes: atraumatic, clear cornea, EOMI, normal conjunctiva/sclera, normal eyelids/periorb., normocephalic, PERRL ENT: normal dentition, normal ear left, normal ear right, normal nose, normal pharynx, normal sinus Neck: full range of motion, non-tender, normal thyroid, supple/no meningismus, no bruit/NL carotids, no JVD, no masses or swelling Cardiovascular: normal capillary refill, regular rate rhythm Respiratory: clear to auscultation, no distress Abdomen: tenderness, (Tender all 4 quad; mostly RLQ), normal bowel sounds, soft, no distention, no guarding, no hernia, no mass/organomegaly, no rebound Extremities: moves all, normal capillary refill, normal range of motion, no edema Musculoskeletal: normal inspection Neuro/RESIDENT CAREGIVER: alert, oriented X 3 Skin: dry, intact Results Findings/Data: Laboratory Tests 02/03 02/03 02/03 2103 1622 1106 Chemistry POC Glucose (70 - 105 mg/dL) 159 H 169 H 137 H Diagnosis, Assessment Plan Hospital course to date: abdominal pain has not improved so far Problem List/A P: 1. Epiploic appendagitis . clear liquid diet . iv fluids . zosyn . antiemetics . surgical consultation . pursue microbiology data 2. Retractile mesenteritis 3. Enteritis Free Text DxA P Notes Free text DxA P notes: . advance diet as tolerated . physical therapy . home when she's able to tolerate po . continue zosyn at 0712 RPT #:[id number] END OF [id number] 17:19:00 [facility] ([facility]) Trauma Consultation Note REPORT#:[id number] REPORT STATUS: Signed DATE:02/03/19 TIME: 1718 PATIENT: DANIELLE MARTINEZ UNIT #: [id number] [facility] AGE: 68 SEX: F ATTEND: Krysta Villarreal MD ADM AUTHOR: Salvador Hensley MD * ALL edits or amendments must be made on the electronic/computer document * HPI HPI Requesting Clinician: Dr. Swain Reason for consult: Abdominal pain Chief complaint: Abdominal pain HPI: 68 y/o Female - morbidly obese c/o mid abdominal pain - "sharp", sudden onset. pain worse with movement, better with rest. pain intensity 6-7/ 10. Pain does not radiate. Pain not associated with nausea or emesis. Pain is constant. Progessive. Pain better at time of exam. History - Adult longitudinal Past medical history: Reports: Diabetes mellitus, Hypertension. Additional medical history: Pancreatitis Additional surgical history: Pancreatectomy Family history: Reports: Diabetes, Hypertension. Alcohol use: Denies EtOH use Drug use: Denies recreational drugs Smoking status for patients 13 years old or older: Never Smoker Medications: Home Medications: Medication Dose/Rte/Freq Days Qty Entered Last Max Daily Dose Reviewed No Known Home Medications Current Hospital Medications: Anti-Infective Agents Sig/Roro Start time Last Medication Dose Route Stop Time Status Admin Piperacillin Sod/ 3.375 GM Q8HR 02/02 2200 AC 02/04 Tazobactam Sod IV 02/09 2159 1609 (ZOSYN 3.375gm VIAL) Autonomic Drugs Sig/Roro Start time Last Medication Dose Route Stop Time Status Admin Albuterol Sulfate 2.5 MG RTQ4H PRN PRN 02/02 2145 AC (PROVENTIL, VENTOLIN INH 03/04 2146 SOLN UD) Blood Formation,Coagulation Sig/Roro Start time Last Medication Dose Route Stop Time Status Admin Enoxaparin Sodium 40 MG DAILY 0800 02/03 0800 AC (LOVENOX) SUBQ 03/05 0801 Cardiovascular Drugs Sig/Roro Start time Last Medication Dose Route Stop Time Status Admin Hydralazine HCl 10 MG Q6H PRN PRN 02/02 2145 AC (APRESOLINE) IV 03/04 2146 Central Nervous System Agents Sig/Roro Start time Last Medication Dose Route Stop Time Status Admin Acetaminophen 650 MG Q6H PRN PRN 02/02 2145 AC (TYLENOL) PO 03/04 2146 Hydrocodone Bitart/ 1 TAB Q6H PRN PRN 02/02 2145 AC 02/04 Acetaminophen PO 02/07 2146 0552 (NORCO 5/325 TABLET) Morphine Sulfate 2 MG Q4H PRN PRN 02/02 2145 AC (morphine SULFATE) IV 02/07 2146 Zolpidem Tartrate 5 MG BEDTIME PRN PRN 02/02 2145 AC (AMBIEN) PO 02/07 2146 Electrolytic, Caloric, And Kwadwo Sig/Roro Start time Last Medication Dose Route Stop Time Status Admin Potassium Chloride/ 1,000 ML .[id number] 02/02 2200 AC 02/04 Dextrose/Sod Cl IV 03/04 2201 0552 (D5%-1/2NS-20meq KCL) Sodium Chloride 100 ML Q8HR 02/02 2200 AC 02/04 (SODIUM CHL 100ml IV 02/09 2201 1609 MINI-BAG PLUS) Gastrointestinal Drugs Sig/Roro Start time Last Medication Dose Route Stop Time Status Admin Famotidine 20 MG BID 02/02 2200 AC 02/04 (PEPCID) PO 03/04 2201 1008 Bisacodyl 1 SUPP DAILY PRN PRN 02/02 2145 CKD (DULCOLAX 10mg) RECTAL 03/04 2146 Docusate Sodium 100 MG BID PRN PRN 02/02 2145 AC (COLACE) PO 03/04 2146 Magnesium Hydroxide 30 ML Q6H PRN PRN 02/02 214 AC 02/04 (MILK OF MAGNESIA) PO 03/04 2146 1751 Metoclopramide HCl 5 MG Q8H PRN PRN 02/02 2145 AC (REGLAN) IV 03/04 214 Ondansetron HCl 4 MG Q6H PRN PRN 02/02 2145 AC (ZOFRAN) IV 03/04 214 Respiratory Tract Agents Sig/Roro Start time Last Medication Dose Route Stop Time Status Admin Guaifenesin 10 ML Q6H PRN PRN 02/02 2145 CKD (guaiFENesin) PO 03/04 2146 Allergies: Coded Allergies: ibuprofen (From ADVIL) (RASH 02/02/19) Ambulatory status: Independent ROS ROS Systems reviewed negative: Allergy/Immun, Cardiovascular, Constitutional, Endocrine, ENT, Eyes, GI, , Heme, Musculoskeletal, Neuro, Psych, Respiratory, Skin Free Text ROS Notes Free Text ROS Notes: Pt underwent a 14 point ROS which is negative other than what is stated in HPI Objective Physical Exam VS/I O: Vital Signs: Date Time Temp Pulse Resp B/P B/P Pulse O2 O2 Flow FiO2 Mean Ox Delivery Rate 02/04 1854 36.5 69 18 147/82 104.0 96 Room air 02/04 1844 96 Room air 02/04 1450 36.7 64 18 139/79 99.2 94 Room air 02/04 0604 36.9 58 17 131/61 84.1 97 Room air 02/03 2153 37.0 60 18 179/90 119.6 97 Room air 02/03 2130 96 Room air 21 24 hour I O ending at 0700: 02/04 0700 02/03 1900 Intake Total 2100.00 400 Output Total Balance 2100.00 400 Intake, IV 2100.00 Intake, Oral 400 Number 1 Bowel Movements Number Voids 3 6 General appearance: alert, awake, oriented, no acute distress, pleasant, conversational, mental status normal, no respiratory distress, morbidly obese Head/Eyes: normocephalic, PERRL, EOMI, NL conjunctiva/sclera, no signs of skull injury L pupil: reactivity R pupil: reactivity ENT: normal ear left, normal ear right, normal pharynx Neck: full range of motion, non-tender, supple, trachea midline Cardiovascular: normal heart sounds, regular rate rhythm Respiratory/Chest: aerating well, atraumatic, clear to auscultation, symmetric expansion, no distress Abdomen: soft, non-tender, no guarding, no rebound, no distention, normal bowel sounds Back/spine: Back: inspection NL, full range of motion Pelvis: pelvis stable, no pain Genitourinary: no flank pain, no blair Extremities: dry, moves all, normal capillary refill, normal movement/sensation Musculoskeletal: full range of motion, normal inspection Neuro/RESIDENT CAREGIVER: alert, oriented X 3, CNII-XII intact, follows commands Jose G Coma Score: [place] Coma Score: Response Value Patient intubated? no Jose G eyes: eyes open spontaneously 4 [place] speech: oriented 5 Jose G motor: obeys commands 6 Total 15 Skin: dry, intact, normal temperature, normal color Lymphatics: axilla normal, inguinal normal, neck normal Psychiatry: normal affect, normal mood Results Findings/Data: Laboratory Tests 02/04 02/04 02/04 02/03 1635 1130 0623 2103 Chemistry POC Glucose (70 - 105 mg/dL) 136 H 192 H 145 H 159 H Laboratory Tests: 02/04 02/04 02/04 02/03 02/03 1635 1130 0623 2103 1622 Chemistry POC Glucose (70 - 105 mg/dL) 136 H 192 H 145 H 159 H 169 H 02/03 02/02 02/02 02/02 1106 1438 1425 1425 Chemistry Sodium (136 - 145 mmol/L) 139 Potassium (3.5 - 5.1 mmol/L) 3.9 Chloride (98 - 107 mmol/L) 106 Carbon Dioxide (21 - 32 mmol/L) 25 BUN (7 - 18 mg/dL) 16 Creatinine (0.51 - 0.95 mg/dL) 0.70 Estimated GFR (MDRD) (>=60) > 60.00 Glucose (70 - 100 mg/dL) 170 H POC Glucose (70 - 105 mg/dL) 137 H Calcium (8.5 - 10.1 mg/dL) 9.2 Troponin I (0.00 - 0.045 ng/ml) <0.015 B-Natriuretic Peptide (0 - 100 PG/ML) 34.8 Lipase (73 - 393 U/L) 44 L Coagulation PT (8.7 - 12.1 SECONDS) 12.9 H INR 1.2 APTT (22.8 - 34.4 seconds) 34.5 H Hematology WBC (4.5 - 11.0 X10(3)) 8.8 RBC (4.2 - 5.4 X10(6)) 3.75 L Hgb (12.5 - 16.0 g/dL) 11.1 L Hct (37.0 - 47.0 %) 35.1 L MCV (78 - 100 fl) 93.6 MCH (26.0 - 34.0 pg) 29.6 MCHC (30.0 - 37.0 g/dl) 31.6 RDW (11.5 - 14.5 %) 14.9 H Plt Count (150 - 350 X10(3)) 418 H MPV (8.7 - 11.4 fl) 9.8 Neut % (Auto) (36.0 - 66.0 %) 66.2 H Lymph % (Auto) (16 - 50 %) 22.2 Lea % (Auto) (0.0 - 13.0 %) 8.3 Eos % (Auto) (0.0 - 4.5 %) 2.1 Baso % (Auto) (0.0 - 1.5 %) 0.6 Immature Gran # (Auto) (0.00 - 0.03 0.05 H X10(3)uL) Absolute Neuts (auto) (1.7 - 7.7 X10(3)) 5.8 Absolute Lymphs (auto) (0.7 - 4.0 X10(3)) 2.0 Absolute Monos (auto) (0.0 - 0.89 X10(3)) 0.7 Absolute Eos (auto) (0.0 - 0.6 X10(3)) 0.2 Absolute Basos (auto) (0.0 - 0.2 X10(3)) 0.1 Absolute Nucleated RBC (0.0 - 0.1 K/mm3) 0.00 Immature Gran % (0.0 - 2.0 %) 0.6 Nucleated RBC % (0 - 0.2 %) 0.0 Toxicology Ketones (NEGATIVE mg/dl) NEGATIVE Urines Urine Color (YELLOW) Yellow Urine Appearance (CLEAR) HAZY Urine pH (4.6 - 8.0) 5.0 Ur Specific [place] (1.001 - 1.035) 1.025 Urine Protein (NEGATIVE mg/dl) NEGATIVE Urine Glucose (UA) (NORMAL mg/dl) NORMAL Urine Blood (NEGATIVE /UL) NEGATIVE Urine Nitrite (NEGATIVE) NEGATIVE Urine Bilirubin (NEGATIVE mg/dl) NEGATIVE Urine Urobilinogen (NORMAL mg/dl) NORMAL Ur Leukocyte Esterase (NEGATIVE /UL) NEGATIVE Urine RBC (0 - 5 #/hpf) 6-10 H Urine WBC (0 - 5 #/hpf) 3-5 Ur Epithelial Cells (NEG,FEW /hpf) FEW Calcium Oxalate Crystal (NEG,FEW /hpf) 1+ H Urine Bacteria (NEGATIVE /hpf) 2+ H Urine Mucus (NEG,FEW /hpf) 2+ H Urine Comment CLN CATCH Radiology data: Recent Impressions-Last 72 Hrs RADIOLOGY - XR CHEST 1 V 02/02 1422 Report Impression - Status: SIGNED Entered: 02/02/2019 1428 IMPRESSION: No acute cardiopulmonary abnormality. Impression By: HumeraHVReji - PRETTY SHARPE M.D. CAT SCAN - CT ABD PELVIS W/O CONT 02/02 1449 Report Impression - Status: SIGNED Entered: 02/02/2019 7364 IMPRESSION: No evidence of intestinal or urinary [...] not excluded. Other nonemergent findings described above. Impression By: Sidney Rutledge MD Results: labs reviewed, x-ray personally reviewed, current med profile rev'd, imaging reviewed Diagnosis, Assessment Plan Free Text DxA P Notes Free Text DxA P Notes: A/P: 1. Abdominal pain - unknown etiology. Pain improving spontaneously. 2. Morbid obesity 3. history of pancreatitis - s/p pancreatic surgery No evidence of surgical abdomen. Pain non-specific. Recommend diet as tolerated. D/c planning at 2053 RPT #:[id number] END OF [id number] 07:16:00 [facility] ([facility]) Hospitalist Progress Note REPORT#:[id number] REPORT STATUS: Signed DATE:02/03/19 TIME: 715 PATIENT: DANIELLE MARTINEZ UNIT #: [id number] [facility] AGE: 68 SEX: F ATTEND: Krysta Villarreal MD ADM AUTHOR: Krysta Villarreal MD * ALL edits or amendments must be made on the electronic/computer document * Subjective Chief Complaint: continues to have abdominal pain. HPI: patient continues to have abdominal pain; there's no vomiting or fever; no diarrhea; pain is felt in all 4 quadrants but mostly in epigastrium, periumbilical region and RLQ. Patient reports: Yes: abdominal pain. Objective General VS/I O: Vital Signs: Date Time Temp Pulse Resp B/P B/P Pulse O2 O2 Flow FiO2 Mean Ox Delivery Rate 02/03 0620 98.2 59 17 156/80 105.7 95 Room air 02/03 0338 96 Room air 21 02/02 2359 97.9 59 18 150/90 109.8 97 Room air 02/02 2315 98.5 71 16 155/97 116 97 Room air 02/02 2257 98.7 80 20 124/74 90 99 Room air 02/02 2012 97.8 70 20 144/74 97 99 Room air 02/02 1847 98.3 88 16 154/88 110 98 02/02 1737 98.1 88 16 189/96 127 98 02/02 1650 98.1 76 16 136/71 92 98 Room air 02/02 1530 98.0 77 14 132/77 95 98 Room air 02/02 1422 98 02/02 1410 98.8 79 18 155/78 103 97 Room air 24 hour I O ending at 0700: 02/03 0700 02/02 1900 Intake Total 450.00 Output Total Balance 450.00 Intake, IV 450.00 Number Voids 1 Patient 82 kg Weight Weight Estimated Measurement Method Physical Exam General appearance: alert, awake Head/Eyes: atraumatic, clear cornea, EOMI, normal conjunctiva/sclera, normal eyelids/periorb., normocephalic, PERRL ENT: normal dentition, normal ear left, normal ear right, normal nose, normal pharynx, normal sinus Neck: full range of motion, non-tender, normal thyroid, supple/no meningismus, no bruit/NL carotids, no JVD, no masses or swelling Cardiovascular: normal capillary refill, regular rate rhythm Respiratory: clear to auscultation, no distress Abdomen: tenderness, (Tender all 4 quad; mostly RLQ), normal bowel sounds, soft, no distention, no guarding, no hernia, no mass/organomegaly, no rebound Extremities: moves all, normal capillary refill, normal range of motion, no edema Musculoskeletal: normal inspection Neuro/RESIDENT CAREGIVER: alert, oriented X 3 Skin: dry, intact Results Findings/Data: Laboratory Tests 02/02 02/02 1425 1425 Chemistry Sodium (136 - 145 mmol/L) 139 Potassium (3.5 - 5.1 mmol/L) 3.9 Chloride (98 - 107 mmol/L) 106 Carbon Dioxide (21 - 32 mmol/L) 25 BUN (7 - 18 mg/dL) 16 Creatinine (0.51 - 0.95 mg/dL) 0.70 Estimated GFR (MDRD) (>=60) > 60.00 Glucose (70 - 100 mg/dL) 170 H Calcium (8.5 - 10.1 mg/dL) 9.2 Troponin I (0.00 - 0.045 ng/ml) <0.015 B-Natriuretic Peptide (0 - 100 PG/ML) 34.8 Lipase (73 - 393 U/L) 44 L Laboratory Tests 02/02 1425 Coagulation PT (8.7 - 12.1 SECONDS) 12.9 H INR 1.2 APTT (22.8 - 34.4 seconds) 34.5 H Laboratory Tests 02/02 1425 Hematology WBC (4.5 - 11.0 X10(3)) 8.8 RBC (4.2 - 5.4 X10(6)) 3.75 L Hgb (12.5 - 16.0 g/dL) 11.1 L Hct (37.0 - 47.0 %) 35.1 L MCV (78 - 100 fl) 93.6 MCH (26.0 - 34.0 pg) 29.6 MCHC (30.0 - 37.0 g/dl) 31.6 RDW (11.5 - 14.5 %) 14.9 H Plt Count (150 - 350 X10(3)) 418 H MPV (8.7 - 11.4 fl) 9.8 Neut % (Auto) (36.0 - 66.0 %) 66.2 H Lymph % (Auto) (16 - 50 %) 22.2 Lea % (Auto) (0.0 - 13.0 %) 8.3 Eos % (Auto) (0.0 - 4.5 %) 2.1 Baso % (Auto) (0.0 - 1.5 %) 0.6 Immature Gran # (Auto) (0.00 - 0.03 X10(3)uL) 0.05 H Absolute Neuts (auto) (1.7 - 7.7 X10(3)) 5.8 Absolute Lymphs (auto) (0.7 - 4.0 X10(3)) 2.0 Absolute Monos (auto) (0.0 - 0.89 X10(3)) 0.7 Absolute Eos (auto) (0.0 - 0.6 X10(3)) 0.2 Absolute Basos (auto) (0.0 - 0.2 X10(3)) 0.1 Absolute Nucleated RBC (0.0 - 0.1 K/mm3) 0.00 Immature Gran % (0.0 - 2.0 %) 0.6 Nucleated RBC % (0 - 0.2 %) 0.0 Laboratory Tests 02/02 143 Toxicology Ketones (NEGATIVE mg/dl) NEGATIVE Laboratory Tests 02/02 143 Urines Urine Color (YELLOW) Yellow Urine Appearance (CLEAR) HAZY Urine pH (4.6 - 8.0) 5.0 Ur Specific [place] (1.001 - 1.035) 1.025 Urine Protein (NEGATIVE mg/dl) NEGATIVE Urine Glucose (UA) (NORMAL mg/dl) NORMAL Urine Blood (NEGATIVE /UL) NEGATIVE Urine Nitrite (NEGATIVE) NEGATIVE Urine Bilirubin (NEGATIVE mg/dl) NEGATIVE Urine Urobilinogen (NORMAL mg/dl) NORMAL Ur Leukocyte Esterase (NEGATIVE /UL) NEGATIVE Urine RBC (0 - 5 #/hpf) 6-10 H Urine WBC (0 - 5 #/hpf) 3-5 Ur Epithelial Cells (NEG,FEW /hpf) FEW Calcium Oxalate Crystal (NEG,FEW /hpf) 1+ H Urine Bacteria (NEGATIVE /hpf) 2+ H Urine Mucus (NEG,FEW /hpf) 2+ H Urine Comment CLN CATCH Radiology data: Recent Impressions: RADIOLOGY - XR CHEST 1 V 02/02 1422 Report Impression - Status: SIGNED Entered: 02/02/2019 1428 IMPRESSION: No acute cardiopulmonary abnormality. Impression By: Breana - PRETTY SHARPE M.D. CAT SCAN - CT ABD PELVIS W/O CONT 02/02 1449 Report Impression - Status: SIGNED Entered: 02/02/2019 1544 IMPRESSION: No evidence of intestinal or urinary [...] not excluded. Other nonemergent findings described above. Impression By: Sidney Rutledge MD Diagnosis, Assessment Plan Hospital course to date: abdominal pain has not improved so far Problem List/A P: 1. Epiploic appendagitis . clear liquid diet . iv fluids . zosyn . antiemetics . surgical consultation . pursue microbiology data 2. Retractile mesenteritis 3. 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 lab work is unremarkable; CT shows changes which could be ascribed to epiploic appendagitis or mesenteritis. History Past medical history: Reports: Diabetes mellitus, Hypertension. Additional medical history: Pancreatitis Additional surgical history: Pancreatectomy Smoking status for patients 13 years old or older: Never Smoker Medication/Allergy-Vaccine Hx Allergies: Coded Allergies: ibuprofen (From ADVIL) (RASH 02/02/19) Ambulatory status: Independent Review of Systems Free Text ROS Notes Free Text ROS Notes: 12 point ROS is neg except as in HPI Physical Exam VS/I O Vital Signs: Date Time Temp Pulse Resp B/P B/P Pulse O2 O2 Flow FiO2 Mean Ox Delivery Rate 02/03 2012 97.8 70 20 144/74 97 99 Room air 02/02 1847 98.3 88 16 154/88 110 98 02/02 1737 98.1 88 16 189/96 127 98 02/02 1650 98.1 76 16 136/71 92 98 Room air 02/02 1530 98.0 77 14 132/77 95 98 Room air 02/02 1422 98 02/02 1410 98.8 79 18 155/78 103 97 Room air General appearance: alert, awake Head/Eyes: atraumatic, clear cornea, EOMI, normocephalic, normal conjunctiva/ sclera, normal eyelids/periorb, PERRLA ENT: normal dentition, normal ear left, normal ear right, normal nose, normal pharynx, normal sinus Neck: full range of motion, non-tender, no bruit/NL carotids, no JVD, no lymphadenopathy, no masses or swelling, normal thyroid, supple/no meningismus Cardiovascular: normal capillary refill, regular rate rhythm Respiratory: clear to auscultation, no distress, no tenderness Abdomen/GI: active bowel sounds, soft, no guarding, no rebound, no distention, no mass/organomegaly, no pulsatile mass, normal abdominal aorta, Tender to all 4 quadrants; there's a well healed midline surgical scar Extremities: moves all, no edema-all extremities, normal capillary refill, normal range of motion, normal sensory, normal motor function Musculoskeletal: full range of motion, normal inspection Neuro/RESIDENT CAREGIVER: alert, oriented X 3 Skin: dry, intact, no gross abnormalities Results Findings/Data: Laboratory Tests: 02/02 02/02 02/02 1438 1425 1425 Chemistry Sodium (136 - 145 mmol/L) 139 Potassium (3.5 - 5.1 mmol/L) 3.9 Chloride (98 - 107 mmol/L) 106 Carbon Dioxide (21 - 32 mmol/L) 25 BUN (7 - 18 mg/dL) 16 Creatinine (0.51 - 0.95 mg/dL) 0.70 Estimated GFR (MDRD) (>=60) > 60.00 Glucose (70 - 100 mg/dL) 170 H Calcium (8.5 - 10.1 mg/dL) 9.2 Troponin I (0.00 - 0.045 ng/ml) <0.015 B-Natriuretic Peptide (0 - 100 PG/ML) 34.8 Lipase (73 - 393 U/L) 44 L Coagulation PT (8.7 - 12.1 SECONDS) 12.9 H INR 1.2 APTT (22.8 - 34.4 seconds) 34.5 H Hematology WBC (4.5 - 11.0 X10(3)) 8.8 RBC (4.2 - 5.4 X10(6)) 3.75 L Hgb (12.5 - 16.0 g/dL) 11.1 L Hct (37.0 - 47.0 %) 35.1 L MCV (78 - 100 fl) 93.6 MCH (26.0 - 34.0 pg) 29.6 MCHC (30.0 - 37.0 g/dl) 31.6 RDW (11.5 - 14.5 %) 14.9 H Plt Count (150 - 350 X10(3)) 418 H MPV (8.7 - 11.4 fl) 9.8 Neut % (Auto) (36.0 - 66.0 %) 66.2 H Lymph % (Auto) (16 - 50 %) 22.2 Lea % (Auto) (0.0 - 13.0 %) 8.3 Eos % (Auto) (0.0 - 4.5 %) 2.1 Baso % (Auto) (0.0 - 1.5 %) 0.6 Immature Gran # (Auto) (0.00 - 0.03 X10(3)uL) 0.05 H Absolute Neuts (auto) (1.7 - 7.7 X10(3)) 5.8 Absolute Lymphs (auto) (0.7 - 4.0 X10(3)) 2.0 Absolute Monos (auto) (0.0 - 0.89 X10(3)) 0.7 Absolute Eos (auto) (0.0 - 0.6 X10(3)) 0.2 Absolute Basos (auto) (0.0 - 0.2 X10(3)) 0.1 Absolute Nucleated RBC (0.0 - 0.1 K/mm3) 0.00 Immature Gran % (0.0 - 2.0 %) 0.6 Nucleated RBC % (0 - 0.2 %) 0.0 Toxicology Ketones (NEGATIVE mg/dl) NEGATIVE Urines Urine Color (YELLOW) Yellow Urine Appearance (CLEAR) HAZY Urine pH (4.6 - 8.0) 5.0 Ur Specific [place] (1.001 - 1.035) 1.025 Urine Protein (NEGATIVE mg/dl) NEGATIVE Urine Glucose (UA) (NORMAL mg/dl) NORMAL Urine Blood (NEGATIVE /UL) NEGATIVE Urine Nitrite (NEGATIVE) NEGATIVE Urine Bilirubin (NEGATIVE mg/dl) NEGATIVE Urine Urobilinogen (NORMAL mg/dl) NORMAL Ur Leukocyte Esterase (NEGATIVE /UL) NEGATIVE Urine RBC (0 - 5 #/hpf) 6-10 H Urine WBC (0 - 5 #/hpf) 3-5 Ur Epithelial Cells (NEG,FEW /hpf) FEW Calcium Oxalate Crystal (NEG,FEW /hpf) 1+ H Urine Bacteria (NEGATIVE /hpf) 2+ H Urine Mucus (NEG,FEW /hpf) 2+ H Urine Comment CLN CATCH Radiology data: Recent Impressions: RADIOLOGY - XR CHEST 1 V 02/02 1422 Report Impression - Status: SIGNED Entered: 02/02/2019 1428 IMPRESSION: No acute cardiopulmonary abnormality. Impression By: [email or web address] - PRETTY SHARPE M.D. CAT SCAN - CT ABD PELVIS W/O CONT 02/02 1449 Report Impression - Status: SIGNED Entered: 02/02/2019 1544 IMPRESSION: No evidence of intestinal or urinary [...] not excluded. Other nonemergent findings described above. Impression By: Sidney Rutledge MD Results: labs reviewed, vital signs stable Free Text PE Notes Free Text PE Notes: 68 yr old female with acute abdominal pain. Suspected epiploic appendagitis suspected diverticulitis suspected enteritis suspected mesenteritis Plan clear liquids iv fluids zosyn analgesics antiemetics surgical consult at 0715 RPT #:[id number] END OF [id number] 14:33:00 [facility] ([facility]) EMERGENCY PROVIDER REPORT REPORT#:[id number] REPORT STATUS: Signed DATE:02/02/19 TIME: 1433 PATIENT: DANIELLE MARTINEZ UNIT #: [id number] ROOM/BED: [address] AGE: 68 SEX: F PCP PHYS: Reagan Dexter MD SERVICE AUTHOR: Yonatan Swain Jr, MD * ALL edits or amendments must be made on the electronic/computer document * HPI-Abd Pain F 40 and Over General Confirmed Patient Yes Patient Type New patient Initial Greet Date/Time 02/02/[address] Reagan Dexter Presentation Chief Complaint Abdominal pain Hx Obtained From Patient Sudden in Onset? Yes Onset Occurred Hours ago ( 3) Symptom Duration Since onset Context of Onset Spontaneous Caused by No trauma by history Location Epigastric Quality Painful Radiation No: Does not radiate. Migration/Movement None Severity: Onset Moderate Severity: Current Moderate Associated with Denies: Back pain, Chest pain, Chills, Constipation, Diarrhea, Dysuria, Fever, Nausea, Shortness of breath, Vomiting. Associated Other Pt denies other symptoms Exacerbated by Nothing Relieved by Nothing Context Recent Healthcare No recent doctor visit, No recent hospitalization Similar Sx Previous No Free Text HPI Notes Free Text HPI Notes 68 y/o female with a PMHx of DM, HTN Pancreatitis presents to ED c/o having ( acute) epigastric pain, onset 3 hrs ago. Pt denies any recent trauma/injury to this area, N/V/D or constipation. Otherwise, pt also denies any fever/chills and has no other complaints/sxs at this time. Portions of this section were scribed by Barney Vang on 02/02/19 at 1441 Risk-Abd Pain F 40 and Over )( Abdominal Aortic Aneurysm Risk factors reviewed Portions of this section were scribed by Barney Vang on 02/02/19 at 1441 Review of Systems ROS Statements All systems rev neg except as marked. Focused Review of Systems Constitutional Denies: Chills, Fever, Lethargy. Respiratory Denies: Cough, productive, Pleuritic pain, Shortness of breath, Wheezing. Cardiovascular Denies: Chest pain, Edema, Palpitations, Syncope. GI Reports: Abdominal pain (epigastric). Denies: Bloody/tarry stool, Constipation, Diarrhea, Nausea, Vomiting. Female Denies: Dysuria, Flank pain, Hematuria, Pelvic pain. Musculoskeletal Denies: Back pain, Extremity pain, Extremity swelling, Myalgia, Neck pain. Portions of this section were scribed by Barney Vang on 02/02/19 at 1441 Past Medical History - Adult Stated Complaint ABDOMINAL PAIN Allergies Coded Allergies: ibuprofen (From ADVIL) (RASH 02/02/19) Home Medications Reported Medications LEVOFLOXACIN (LEVAQUIN) 500 MG PO DAILY metroNIDAZOLE (FLAGYL) 500 MG PO QID Review of Nursing Notes Rev avail, and agree Pt reports no significant: Family history Past Medical History: Reports: Diabetes mellitus, Hypertension. Additional Medical History Pancreatitis Additional Surgical History Pancreatectomy Smoking status for patients 13 years old or older: Never Smoker Ambulatory Status Independent Portions of this section were scribed by Barney Vang on 02/02/19 at 1441 Physical Exam Vital Signs Vital Signs First Documented: Result Date Time Pulse Ox 97 02/02 1410 B/P 155/78 02/02 1410 B/P Mean 103 02/02 1410 O2 Delivery Room air 02/02 1410 Temp 37.1 02/02 1410 Pulse 79 02/02 1410 Resp 18 02/02 141 Last Documented: Result Date Time Pulse Ox 98 02/02 1650 B/P 136/71 02/02 1650 B/P Mean 92 02/02 1650 O2 Delivery Room air 02/02 1650 Temp 36.7 02/02 1650 Pulse 76 02/02 1650 Resp 16 02/02 1650 Review of Vital Signs Reviewed Focused PE General/Const General/Const Awake, Alert MS Head Head Normocephalic Eyes Eyes PERRL Ears/Nose/Throat Ears/Nose/Throat Airway patent, Mucous membranes moist, Pharynx NL Resp/Chest Respiratory/Chest Breath sounds NL, Breath sounds = bilat, No respiratory distress, No rales, No rhonchi, No wheezing Cardiovascular Cardiovascular Heart rate NL, Regular rhythm, Heart sounds NL, Peripheral circulation NL Abdomen/GI Abdomen/GI Soft, Non-tender, McBurney's non-tender, No guarding, No rebound, BS normoactive, No distention, No hernia, No palpable mass, No pulsatile mass MS Back Back Inspection NL, Non-tender, No CVA tenderness Skin Skin Color NL, Warm, Dry, Turgor NL Neurologic Neurologic Oriented X3, Speech NL, No motor deficits, No sensory deficits Portions of this section were scribed by Barney Vang on 02/02/19 at 1441 Interpretation Diagnostics Lab Results Interpretation Results Laboratory Tests 02/02/19 1425: [Embedded Image Not Available] 02/02/19 1425: [Embedded Image Not Available] Laboratory Tests: 02/02 02/02 02/02 1438 1425 1425 Chemistry Sodium (136 - 145 mmol/L) 139 Potassium (3.5 - 5.1 mmol/L) 3.9 Chloride (98 - 107 mmol/L) 106 Carbon Dioxide (21 - 32 mmol/L) 25 BUN (7 - 18 mg/dL) 16 Creatinine (0.51 - 0.95 mg/dL) 0.70 Estimated GFR (MDRD) (>=60) > 60.00 Glucose (70 - 100 mg/dL) 170 H Calcium (8.5 - 10.1 mg/dL) 9.2 Troponin I (0.00 - 0.045 ng/ml) <0.015 B-Natriuretic Peptide (0 - 100 PG/ML) 34.8 Lipase (73 - 393 U/L) 44 L Coagulation PT (8.7 - 12.1 SECONDS) 12.9 H INR 1.2 APTT (22.8 - 34.4 seconds) 34.5 H Hematology WBC (4.5 - 11.0 X10(3)) 8.8 RBC (4.2 - 5.4 X10(6)) 3.75 L Hgb (12.5 - 16.0 g/dL) 11.1 L Hct (37.0 - 47.0 %) 35.1 L MCV (78 - 100 fl) 93.6 MCH (26.0 - 34.0 pg) 29.6 MCHC (30.0 - 37.0 g/dl) 31.6 RDW (11.5 - 14.5 %) 14.9 H Plt Count (150 - 350 X10(3)) 418 H MPV (8.7 - 11.4 fl) 9.8 Neut % (Auto) (36.0 - 66.0 %) 66.2 H Lymph % (Auto) (16 - 50 %) 22.2 Lea % (Auto) (0.0 - 13.0 %) 8.3 Eos % (Auto) (0.0 - 4.5 %) 2.1 Baso % (Auto) (0.0 - 1.5 %) 0.6 Immature Gran # (Auto) (0.00 - 0.03 X10(3)uL) 0.05 H Absolute Neuts (auto) (1.7 - 7.7 X10(3)) 5.8 Absolute Lymphs (auto) (0.7 - 4.0 X10(3)) 2.0 Absolute Monos (auto) (0.0 - 0.89 X10(3)) 0.7 Absolute Eos (auto) (0.0 - 0.6 X10(3)) 0.2 Absolute Basos (auto) (0.0 - 0.2 X10(3)) 0.1 Absolute Nucleated RBC (0.0 - 0.1 K/mm3) 0.00 Immature Gran % (0.0 - 2.0 %) 0.6 Nucleated RBC % (0 - 0.2 %) 0.0 Toxicology Ketones (NEGATIVE mg/dl) NEGATIVE Urines Urine Color (YELLOW) Yellow Urine Appearance (CLEAR) HAZY Urine pH (4.6 - 8.0) 5.0 Ur Specific [place] (1.001 - 1.035) 1.025 Urine Protein (NEGATIVE mg/dl) NEGATIVE Urine Glucose (UA) (NORMAL mg/dl) NORMAL Urine Blood (NEGATIVE /UL) NEGATIVE Urine Nitrite (NEGATIVE) NEGATIVE Urine Bilirubin (NEGATIVE mg/dl) NEGATIVE Urine Urobilinogen (NORMAL mg/dl) NORMAL Ur Leukocyte Esterase (NEGATIVE /UL) NEGATIVE Urine RBC (0 - 5 #/hpf) 6-10 H Urine WBC (0 - 5 #/hpf) 3-5 Ur Epithelial Cells (NEG,FEW /hpf) FEW Calcium Oxalate Crystal (NEG,FEW /hpf) 1+ H Urine Bacteria (NEGATIVE /hpf) 2+ H Urine Mucus (NEG,FEW /hpf) 2+ H Urine Comment CLN CATCH Recent Impressions: RADIOLOGY - XR CHEST 1 V 02/02 1422 Report Impression - Status: SIGNED Entered: 02/02/2019 1428 IMPRESSION: No acute cardiopulmonary abnormality. Impression By: [email or web address] - PRETTY SHARPE M.D. CAT SCAN - CT ABD PELVIS W/O CONT 02/02 1449 Report Impression - Status: SIGNED Entered: 02/02/2019 1544 IMPRESSION: No evidence of intestinal or urinary [...] not excluded. Other nonemergent findings described above. Impression By: Sidney - Liz Rutledge MD Lab Imaging Statement Laboratory radiographic studies reviewed and considered in the medical decision-making. ECG #1 Interpretation Text/Dict Note Rate 76 bpm SR w/ occasional premature ventricular complexes No STEMI ECG Documented in MUSE Yes Date 02/02/19 Time 1426 Interpreted by ED physician Portions of this section were scribed by Barney Vang on 02/02/19 at 1441 Re-Evaluation MDM )( Re-Evaluation/Progress #1 Time of Re-Eval 1715 )( Re-Eval Status Unchanged Re-Eval Abdomen Tenderness, Guarding ED Course Medication(s) Ordered Medication(s) Ordered: Central Nervous System Agents Sig/Roro Start time Last Medication Dose Route Stop Time Status Admin Morphine Sulfate 3 MG X1ED STA 02/02 1707 DC / IV 02/02 1708 1712 Morphine Sulfate 3 MG X1ED STA 02/02 1434 DC / IV / 1435 1439 Electrolytic, Caloric, And Kwadwo Sig/Roro Start time Last Medication Dose Route Stop Time Status Admin Sodium Chloride 1,000 ML X1ED STA 02/02 1434 DC / IV / 1533 1439 Gastrointestinal Drugs Sig/Roro Start time Last Medication Dose Route Stop Time Status Admin Ondansetron HCl 4 MG X1ED STA 02/02 1434 DC / IV / 1435 1439 Consultation Consultation Referral/Consult Name Salvador Hensley MD Call Returned Call returned Professor Of Management Will see patient, Agrees with eval, Agrees with plan Portions of this section were scribed by Barney Vang on 02/02/19 at 1441 Patient Discharge Departure Vital Signs/Condition Vital Signs First Documented: Result Date Time Pulse Ox 97 02/02 1410 B/P 155/78 02/02 1410 B/P Mean 103 02/02 1410 O2 Delivery Room air 02/02 1410 Temp 37.1 02/02 1410 Pulse 79 02/02 1410 Resp 18 02/02 1410 Last Documented: Result Date Time Pulse Ox 98 02/02 1650 B/P 136/71 02/02 1650 B/P Mean 92 02/02 1650 O2 Delivery Room air 02/02 1650 Temp 36.7 02/02 1650 Pulse 76 02/02 1650 Resp 16 02/02 1650 All vital signs available at the time of this entry have been reviewed. Clinical Impression Clinical Impression Primary Impression: EPIGASTRIC ABD APIN Secondary Impressions: Epiploic appendagitis, INTRACTABLE PAIN Disposition Decision Admit Admit Physician Name Krysta Villarreal MD Request Time 1715 Request Date 02/02/19 )( Admission Accepts Yes )( Accepted Time 1715 )( Accepted Date 02/02/19 Discharge/Care Plan Admit Note I have spoken with the patient and/or caregivers. I have explained the patient's condition, diagnoses and treatment plan based on the information available to me at this time. I have answered the patient's and/or caregiver's questions and addressed any concerns. The patient and/or caregivers have as good an understanding of the patient's diagnosis, condition and treatment plan as can be expected at this point. The patient has been stabilized within the capability of the emergency department. The patient will be transported for further care and management or will be moved to an observation or inpatient service. I have communicated with the staff or medical practitioner taking over this patient's care. Supervising Physician Note Scribe Statement Barney Vang, 02/02/19 1442, scribing for and in the presence of [Yonatan Swain MD]. Signed By: Barney Vang, 02/02/19 1442 Provider Scribed Statement I personally performed the services described in this documentation and reviewed the documentation that was dictated to the scribe(s) in my presence, and it accurately records my words and actions. Yonatan Swain MD, 02/02/19 Portions of this section were scribed by Barney Vang on 02/02/19 at 1441 at 0897 [facility] #:[id number] END OF [id number] 14:[id number] [place] [id number] PATIENT NAME: DANIELLE MARTINEZ ADMIT DATE: 02/02/19 ACCOUNT NO: [id number] [facility]GE[facility] 68 REPORT TYPE: ELECTROCARDIOGRAM SEX: F : 51 ADMITTING PHYSICIAN:Krysta Villarreal MD ATTENDING PHYSICIAN:Krysta Villarreal MD Order: [id number] Test Reason : EPIGATRIC PAIN Test Date/Time Stamp: FriFeb 02 2019 14:26:24 Blood Pressure : / mmHG Vent. Rate : 076 BPM Atrial Rate : 076 BPM P-R Int : 132 ms QRS Dur : 086 ms QT Int : 408 ms P-R-T Axes : 005 032 058 degrees QTc Int : 459 ms Sinus rhythm with occasional premature ventricular complexes Otherwise normal ECG No previous ECGs available Confirmed by MD WILIAM, YONATAN ([id number]) on 02/11/2019 8:01:36 AM Referred By: Self Referred Confirmed by:YONATAN SWAIN MD at 0806 PATIENT NAME: DANIELLE MARTINEZ
[2024-06-04] MEDS ORDERED: ONDANSETRON 4 MG/2 ML VIAL ONE (14:27)
[2024-06-04] MEDS ORDERED: IPRATROPIUM BROM 0.5MG/2.5ML ONE (14:27)
[2024-06-04] MEDS ORDERED: CEFTRIAXONE 1000 MG/VIAL ONE (14:27)
[2024-06-04] MEDS ORDERED: PANTOPRAZOLE 40 MG INJ ONE (14:28)
[2024-06-04] MEDS ORDERED: LEVALBUTEROL 1.25 MG/3 ML NEB ONE (14:28)
[2024-06-04] MEDS ORDERED: ACETAMINOPHEN 500 MG TAB ONE (14:28)
[2024-06-04] MEDS ORDERED: FENTANYL CITR 100 MCG/2 ML ONE (14:28)
[2024-06-04] MEDS ORDERED: NA CHLORIDE 0.9% 2,000 ML ONE (14:30)
--- NOTE | 2024-06-04 15:09 | RAD REPORT ---
EXAM DESCRIPTION: RAD - Chest Single View - 06/04/2024 2:33 pm CLINICAL HISTORY: Abdominal distention;Congestion;Cough;Dyspnea Chest pain. COMPARISON: Chest Single View dated 07/16/2021; Chest Single View dated 05/31/2020; Chest Single View d ated 05/24/2020 FINDINGS: Portable technique limits examination quality. Mild pulmonary edema. The heart is moderately enlarged with a tortuous thoracic aorta. No displaced f ractures. IMPRESSION: Mild CHF.
[2024-06-04 15:11] LABS: Absolute Lymphocytes (CBC) 1.4 K/uL (0.7-4.9); Absolute Neutrophil 9.4 K/uL (1.8-8.0); Basophils % 0.1 % (0-1.3); Eosinophils % 0.1 % (0-4.4); Hematocrit 41.4 % (36.0-45.0); Hemoglobin 13.5 g/dL (12.0-15.0); MCHC 32.7 g/dL (32.0-36.0); MCV 88.8 fL (80-100); MPV 9.4 fL (7.6-11.3); Monocytes % 8.3 % (3.3-12.3); Neutrophils % 79.5 % (41.7-73.7); Nucleated Red Blood Cells % 0.2 % (0-0); Platelets 218 thou/uL (152-406); RBC Red Blood Cell Count 4.66 M/uL (3.86-4.86); Red Cell Distribution Width 14.7 % (12.1-15.2)
[2024-06-04 15:26] LABS: PT Prothrombin Time 12.2 SECONDS (9.4-12.5); Protime INR 1.09; Sqamous Epithelial <5 /HPF (None Seen); Urine Bacteria None Seen /HPF (<20); Urine Bilirubin NEGATIVE (Negative); Urine Blood Negative (Negative); Urine Clarity Extremely Turbid (Clear); Urine Color Yellow (Yellow); Urine Crystals Unidentified Few /HPF (None Seen); Urine Culture Reflex Order NOT NEEDED; Urine Glucose 1+ (Negative); Urine Ketones NEGATIVE (Negative); Urine Microscopic Reflex YN ORDER UMIC; Urine Mucus 3+ /HPF (None Seen); Urine Nitrite NEGATIVE (Negative); Urine Protein 1+ (Negative); Urine RBC <5 /HPF (None Seen); Urine Urobilinogen Normal (Normal); Urine WBC <5 /HPF (<5); Urine pH 5.5 (5.0-7.0)
[2024-06-04 15:30] LABS: Albumin 3.7 g/dL (3.4-5.0); Albumin/Globulin Ratio 0.8 (1.1-1.8); Anion Gap 11.5 mEq/L (5.0-15.0); Bilirubin Direct 0.2 mg/dL (0-0.2); Bilirubin Indirect, Calculated 0.9 mg/dL (0.2-0.8); Bilirubin Total 1.1 mg/dL (0.2-1.0); Globulin 4.6 g/dL (2.3-3.5); Magnesium 1.7 mg/dL (1.6-2.4); Potassium 3.5 mEq/L (3.5-5.1); Protein, Total 8.3 g/dL (6.4-8.2)
[2024-06-04 15:34] LABS: SARS-CoV-2 Antigen CONTROL BLUE LINE VIS/BG OK; SARS-CoV-2 Antigen Rapid Res Negative (Negative)
[2024-06-04] MEDS ORDERED: NA CHLORIDE 0.9% 250 ML ONE (15:35)
[2024-06-04] MEDS ORDERED: AZITHROMYCIN 500 MG INJ IVPB ONE (15:35)
[2024-06-04] MEDS ORDERED: HYDROCORTISONE SUC 100 MG INJ ONE (15:58)
--- NOTE | 2024-06-04 16:10 | ER ---
Nurse's Notes [facility] Name: Sapphire Martinez Age: 73 yrs Sex: Female : 1950 Arrival Date: 06/04/2024 Time: 12:58 Bed 16 Private MD: Diagnosis: Dyspnea;Nausea;Epigastric abdominal tenderness;Fever, unspecified;Weakness Presentation: 06/04 13:13 Chief complaint: Fever, chills, body aches, malaise, and nausea x 3 days. Coronavirus hb screen: Client presents with at least one sign or symptom that may indicate coronavirus-19. Provider contacted for isolation considerations. Ebola Screen: No symptoms or risks identified at this time. Initial Sepsis Screen: Does the patient meet any 2 criteria? No. Patient's initial sepsis screen is negative. Does the patient have a suspected source of infection? No. Patient's initial sepsis screen is negative. Risk Assessment: Do you want to hurt yourself or someone else? Patient reports no desire to harm self or others. Onset of symptoms was June 01, 2024. 13:13 Method Of Arrival: Ambulatory 13:13 Acuity: TONY 3 hb Triage Assessment: 13:20 General: Appears in no apparent distress. ill, Behavior is cooperative, flat. Pain: hb Pain currently is 5 out of 10 on a pain scale. Neuro: Level of Consciousness is obeys commands, lethargic, Oriented to person, place, time, situation. Cardiovascular: Patient's skin is warm and dry. Respiratory: Respiratory effort is even, unlabored, Respiratory pattern is regular, symmetrical. GI: Reports nausea. Musculoskeletal: Reports body aches. Historical: - Allergies: 13:16 Advil; hb 13:16 Aleve; hb - Home Meds: 13:16 aspirin 81 mg Oral TbEC [Active]; atorvastatin Oral [Active]; cetirizine 5 mg oral hb tablet,chewable [Active]; enalapril maleate Oral [Active]; gabapentin Oral [Active]; Metformin Oral [Active]; Omeprazole Oral [Active]; paroxetine Oral [Active]; - PMHx: 13:16 Colitis; Diabetes - NIDDM; Arthritis; Hyperlipidemia; Hypertension; gastritis; hb - PSHx: 13:16 pancreas; hb - Immunization history:: Adult Immunizations up to date. - Infectious Disease History:: Denies. - Social history:: Smoking status: Patient denies any tobacco usage or history of. Screenin:45 [facility] ED Fall Risk Assessment (Adult) History of falling in the last 3 months, ld1 including since admission No falls in past 3 months (0 pts) Confusion or Disorientation No (0 pts) Intoxicated or Sedated No (0 pts) Impaired Gait No (0 pts) Mobility Assist Device Used No (0 pt) Altered Elimination No (0 pt) Score/Fall Risk Level 0 - 2 = Low Risk Oriented to surroundings, Maintained a safe environment, Educated pt \T\ family on fall prevention, incl call for assistance when getting out of bed, Assessed \T\ reinforced patient's understanding of fall precautions, Provided non-skid footwear, Hourly rounding (assess needs \T\ fall precautionary measures) done, Used ambulatory aids as needed (educated on \T\ assisted with), Used gait belt as appropriate. Abuse screen: Denies threats or abuse. Denies injuries from another. Nutritional screening: No deficits noted. Tuberculosis screening: No symptoms or risk factors identified. Assessment: 13:45 General: Appears in no apparent distress. comfortable, Behavior is calm, cooperative, ld1 appropriate for age. Pain: Denies pain. Neuro: Level of Consciousness is awake, alert, obeys commands, Oriented to person, place, time, situation, Appropriate for age. Cardiovascular: Capillary refill < 3 seconds Patient's skin is warm and dry. Respiratory: Airway is patent Respiratory effort is even, unlabored. GI: Abdomen is round non-distended. : No signs and/or symptoms were reported regarding the genitourinary system. EENT: No signs and/or symptoms were reported regarding the EENT system. Derm: No signs and/or symptoms reported regarding the dermatologic system. Musculoskeletal: Reports body aches. Vital Signs: 13:13 BP 133 / 77; Pulse 118; Resp 20; Temp 99.8(O); Pulse Ox 94% ; Pain 5/10; hb 13:45 BP 147 / 92; Pulse 12; Resp 18; Pulse Ox 95% on R/A; ld1 14:54 BP 129 / 87; Pulse 103; Resp 19; Pulse Ox 100% on Nebulizer Mask; ld1 17:47 BP 132 / 77; Pulse 99; Resp 18; Temp 98.1(TE); Pulse Ox 98% on R/A; ld1 13:13 Pain Scale: Adult hb ED Course: 13:03 Patient arrived in ED. im 13:05 Ian Jean MD is Attending Physician. [facility] 13:16 Triage completed. hb 13:20 Arm band placed on. hb 13:30 Carmela Ramirez, RN is Primary Nurse. ld1 13:45 Patient has correct armband on for positive identification. Placed in gown. Bed in low ld1 position. Call light in reach. Side rails up X2. driver courier on. Pulse ox on. NIBP on. Door closed. Noise minimized. Warm blanket given. 13:45 No provider procedures requiring assistance completed. ld1 14:16 Radiology exam delayed due to lab results not completed at this time. (BUN/Creatinine). nj 14:16 Radiology exam delayed due to IV insertion attempt and/or patient not having nj appropriate IV at this time. 14:17 RSV Sent. ld1 14:17 Flu Sent. ld1 14:17 SARS RAPID Sent. ld1 14:35 XRAY Chest (1 view) In Process Unspecified. EDMS 14:53 Inserted saline lock: 20 gauge in left antecubital area, using aseptic technique. Blood ld1 collected. Flushed with 10 mL NS. 14:55 Lactate w/ 2H reflex if indic. Sent. ld1 14:55 Blood Culture Adult (2) Sent. ld1 14:55 Urinalysis w/ reflexes Sent. ld1 15:52 CT Chest, Abdomen, Pelvis - W/Contrast In Process Unspecified. EDMS 16:09 Antonino Holt is Hospitalizing Provider. [facility] Administered Medications: 14:54 Drug: Ipratropium Inhalation Aerosol 0.5 mg Inhalation once Route: Inhalation; ld1 17:22 Follow up: Response: No adverse reaction ld1 14:54 Drug: fentaNYL (PF) IVP 25 mcg IVP once Route: IVP; Site: left antecubital; ld1 17:23 Follow up: Response: No adverse reaction; Pain is decreased ld1 14:54 Drug: Ondansetron IVP 4 mg IVP once; over 2 minutes Route: IVP; Site: left antecubital; ld1 17:23 Follow up: Response: No adverse reaction ld1 14:55 Drug: Pantoprazole IVP 40 mg IVP once Route: IVP; Site: left antecubital; ld1 17:21 Follow up: Response: No adverse reaction ld1 14:55 Drug: Rocephin IV 1 grams IV at per protocol once; Given slow IV push per pharmacy ld1 instructions Route: IV; Rate: per protocol; Site: left antecubital; 17:21 Follow up: Response: No adverse reaction; IV Status: Completed infusion; IV Intake: ld1 100ml 14:55 Drug: NS 0.9% IV 1000 ml IV at 1 bolus Per protocol; 1000 mL bolus Route: IV; Rate: 1 ld1 bolus; Site: left antecubital; 17:21 Follow up: Response: No adverse reaction; IV Status: Completed infusion; IV Intake: ld1 1000ml 14:55 Drug: NS 0.9% IV 1000 ml IV at 1 bolus Per protocol; 1000 mL bolus Route: IV; Rate: 1 ld1 bolus; Site: left antecubital; 17:21 Follow up: Response: No adverse reaction; IV Status: Completed infusion; IV Intake: ld1 1000ml 14:55 Drug: Acetaminophen PO 1000 mg PO once Route: PO; ld1 17:21 Follow up: Response: No adverse reaction ld1 14:55 Drug: Levalbuterol Inhalation 2 mg Inhalation once Route: Inhalation; ld1 17:22 Follow up: Response: No adverse reaction ld1 16:10 Drug: Zithromax IVPB 500 mg IVPB once over 1 hrs; mix in 250 mL NS Route: IVPB; Infused ld1 Over: 1 hrs; Site: left antecubital; 17:23 Follow up: Response: No adverse reaction; IV Status: Completed infusion; IV Intake: ld1 250ml 16:10 Drug: Solu-CORTEF IVP 100 mg IVP once Route: IVP; Site: left antecubital; ld1 17:23 Follow up: Response: No adverse reaction ld1 Medication: 13:45 VIS not applicable for this client. ld1 Intake: 17:21 IV: 100ml; Total: 100ml. ld1 17:21 IV: 1000ml; Total: 1100ml. ld1 17:21 IV: 1000ml; Total: 2100ml. ld1 17:23 IV: 250ml; Total: 2350ml. ld1 Outcome: 16:09 Decision to Hospitalize by Provider. el 18:17 Patient left the ED. ld1 Signatures: Dispatcher [employer] Ian Colorado MD MD cha Baxter, Heather RN RN Andrae Lan Lauren, RN RN ld1 Paulina Griggs Corrections: (The following items were deleted from the chart) 13:20 13:16 Home Meds: atorvastatin Oral; hb hb 13:20 13:16 Home Meds: Metformin Oral; hb hb 13:20 13:16 Home Meds: gabapentin Oral; hb hb
--- NOTE | 2024-06-04 16:10 | EDPHYS ---
Physician Documentation [facility] Name: Sapphire Martinez Age: 73 yrs Sex: Female : 1950 Arrival Date: 06/04/2024 Time: 12:58 Bed 16 Private MD: ED Physician Ian Jean HPI: 06/04 15:50 This 73 yrs old Female presents to ER via Ambulatory with complaints of Pain el All Over, Flu Symptoms. 15:50 The patient presents with abdominal pain in the epigastric area, in the upper abdomen. el FEVER , COUGH , CONGESTION, MALAISE. Historical: - Allergies: 13:16 Advil; hb 13:16 Aleve; hb - Home Meds: 13:16 aspirin 81 mg Oral TbEC [Active]; atorvastatin Oral [Active]; cetirizine 5 mg oral hb tablet,chewable [Active]; enalapril maleate Oral [Active]; gabapentin Oral [Active]; Metformin Oral [Active]; Omeprazole Oral [Active]; paroxetine Oral [Active]; - PMHx: 13:16 Colitis; Diabetes - NIDDM; Arthritis; Hyperlipidemia; Hypertension; gastritis; hb - PSHx: 13:16 pancreas; hb - Immunization history:: Adult Immunizations up to date. - Infectious Disease History:: Denies. - Social history:: Smoking status: Patient denies any tobacco usage or history of. ROS: 15:53 Constitutional: Negative for fever, chills, and weight loss, Eyes: Negative for injury, el pain, redness, and discharge, ENT: Negative for injury, pain, and discharge, Neck: Negative for injury, pain, and swelling, Cardiovascular: Negative for chest pain, palpitations, and edema, Back: Negative for injury and pain, : Negative for injury, bleeding, discharge, and swelling, MS/Extremity: Negative for injury and deformity, Skin: Negative for injury, rash, and discoloration, Neuro: Negative for headache, weakness, numbness, tingling, and seizure, Psych: Negative for depression, anxiety, suicide ideation, homicidal ideation, and hallucinations, Allergy/Immunology: Negative for hives, rash, and allergies, Endocrine: Negative for neck swelling, polydipsia, polyuria, polyphagia, and marked weight changes, 15:53 Respiratory: Positive for cough, shortness of breath, wheezing, expiratory, Exam: 15:53 Constitutional: This is a well developed, well nourished patient who is awake, alert, el and in no acute distress. Head/Face: Normocephalic, atraumatic. Eyes: Pupils equal round and reactive to light, extra-ocular motions intact. Lids and lashes normal. Conjunctiva and sclera are non-icteric and not injected. Cornea within normal limits. Periorbital areas with no swelling, redness, or edema. ENT: Nares patent. No nasal discharge, no septal abnormalities noted. Tympanic membranes are normal and external auditory canals are clear. Oropharynx with no redness, swelling, or masses, exudates, or evidence of obstruction, uvula midline. Mucous membranes moist. Neck: Trachea midline, no thyromegaly or masses palpated, and no cervical lymphadenopathy. Supple, full range of motion without nuchal rigidity, or vertebral point tenderness. No Meningismus. Chest/axilla: Normal chest wall appearance and motion. Nontender with no deformity. No lesions are appreciated. Back: No spinal tenderness. No costovertebral tenderness. Full range of motion. Female : Normal external genitalia. Skin: Warm, dry with normal turgor. Normal color with no rashes, no lesions, and no evidence of cellulitis. MS/ Extremity: Pulses equal, no cyanosis. Neurovascular intact. Full, normal range of motion. Neuro: Awake and alert, GCS 15, oriented to person, place, time, and situation. Cranial nerves II-XII grossly intact. Motor strength 5/5 in all extremities. Sensory grossly intact. Cerebellar exam normal. Normal gait. Psych: Awake, alert, with orientation to person, place and time. Behavior, mood, and affect are within normal limits. 15:53 Cardiovascular: Rate: tachycardic, actual rate is 103 bpm, Rhythm: regular, Pulses: Pulses are 4+ in bilateral radial, brachial, femoral, popliteal, posterior tibial and and dorsalis pedis arteries.. Heart sounds: normal, Edema: is not appreciated, JVD: is not appreciated, 16:10 ECG was reviewed by the Attending Physician. [facility] Vital Signs: 13:13 BP 133 / 77; Pulse 118; Resp 20; Temp 99.8(O); Pulse Ox 94% ; Pain 5/10; hb 13:45 BP 147 / 92; Pulse 12; Resp 18; Pulse Ox 95% on R/A; ld1 14:54 BP 129 / 87; Pulse 103; Resp 19; Pulse Ox 100% on Nebulizer Mask; ld1 17:47 BP 132 / 77; Pulse 99; Resp 18; Temp 98.1(TE); Pulse Ox 98% on R/A; ld1 13:13 Pain Scale: Adult hb MDM: 13:05 Patient medically screened. el 16:04 Differential Diagnosis altered mental status, sepsis, flu, Obstructed Airway Bronchitis el Influenza Upper Respiratory Infection Sinusitis Pharyngitis. Differential diagnosis: viral Infection, bacterial infection, URI, pneumonia UTI, gastroenteritis, bowel obstruction, Cholelithiasis, diverticulitis, gastritis, gastroesophageal reflux disease, Mesenteric ischemia or infarction, non-specific abd pain, pancreatitis, Peptic Ulcer Disease, urinary tract infection. Data reviewed: vital signs, nurses notes, EMS record, lab test result(s), EKG, radiologic studies, CT scan, plain films. Consideration of Admission/Observation Patient was admitted/placed on observation. Escalation of care including admission/observation considered. I considered the following discharge prescriptions or medication management in the emergency department Medications were administered in the Emergency Department. See MAR. Independent interpretation of the following test(s) in the Emergency Department EKG: See my EKG interpretation above. Test considered but Not performed: Ultrasound NO ABD USG. Care significantly affected by the following chronic conditions: Diabetes, Hypertension, Obesity, COLITIS, OA, GASTRITIS. 06/04 13:26 Order name: SARS RAPID; Complete Time: 15:42 [facility] 06/04 13:26 Order name: Flu; Complete Time: 15:20 [facility] 06/04 13:26 Order name: RSV; Complete Time: 15:20 [facility] 06/04 14:13 Order name: Basic Metabolic Panel; Complete Time: 15:42 [facility] 06/04 14:13 Order name: CBC with Diff; Complete Time: 15:20 [facility] 06/04 14:13 Order name: LFT's; Complete Time: 15:42 [facility] 06/04 14:13 Order name: Magnesium; Complete Time: 15:42 [facility] 06/04 14:13 Order name: NT PRO-BNP; Complete Time: 15:42 [facility] 06/04 14:13 Order name: PT-INR; Complete Time: 15:42 [facility] 06/04 14:13 Order name: Troponin HS; Complete Time: 15:42 [facility] 06/04 14:13 Order name: Lipase; Complete Time: 15:42 [facility] 06/04 14:13 Order name: Urinalysis w/ reflexes; Complete Time: 15:42 [facility] 06/04 14:13 Order name: Blood Culture Adult (2) [facility] 06/04 14:13 Order name: Lactate w/ 2H reflex if indic.; Complete Time: 17:49 [facility] 06/04 16:57 Order name: T4 Free EDMS 06/04 16:57 Order name: Thyroid Stimulating Hormone EDMS 06/04 16:57 Order name: Basic Metabolic Panel EDMS 06/04 16:57 Order name: Basic Metabolic Panel EDMS 06/04 16:57 Order name: Basic Metabolic Panel EDMS 06/04 16:57 Order name: Basic Metabolic Panel EDMS 06/04 16:57 Order name: Basic Metabolic Panel EDMS 06/04 16:57 Order name: Basic Metabolic Panel EDMS 06/04 16:57 Order name: CBC with Automated Diff EDMS 06/04 16:57 Order name: CBC with Automated Diff EDMS 06/04 16:57 Order name: CBC with Automated Diff EDMS 06/04 16:57 Order name: CBC with Automated Diff EDMS 06/04 16:57 Order name: CBC with Automated Diff EDMS 06/04 16:57 Order name: CBC with Automated Diff EDMS 06/04 16:57 Order name: Lipid Profile EDMS 06/04 16:57 Order name: Lipid Profile EDMS 06/04 16:57 Order name: Magnesium EDMS 06/04 16:57 Order name: Magnesium EDMS 06/04 16:57 Order name: Magnesium EDMS 06/04 16:57 Order name: Magnesium EDMS 06/04 16:57 Order name: Magnesium EDMS 06/04 16:57 Order name: Magnesium EDMS 06/04 16:57 Order name: Phosphorus EDMS 06/04 16:57 Order name: Phosphorus EDMS 06/04 16:57 Order name: Phosphorus EDMS 06/04 16:57 Order name: Phosphorus EDMS 06/04 16:57 Order name: Phosphorus EDMS 06/04 16:57 Order name: Phosphorus EDMS 06/04 16:57 Order name: Troponin High Sensitivity EDMS 06/04 16:57 Order name: Troponin High Sensitivity EDMS 06/04 16:57 Order name: Troponin High Sensitivity [facility] 06/04 14:13 Order name: XRAY Chest (1 view); Complete Time: 15:20 [facility] 06/04 14:13 Order name: CT Chest, Abdomen, Pelvis - W/Contrast; Complete Time: 17:49 [facility] 06/04 16:57 Order name: Physical Therapy Consult [facility] 06/04 14:13 Order name: Cardiac monitoring; Complete Time: 14:17 [facility] 06/04 14:13 Order name: EKG - Nurse/Tech; Complete Time: 14:25 [facility] 06/04 14:13 Order name: IV Saline Lock; Complete Time: 14:55 [facility] 06/04 14:13 Order name: Labs collected and sent; Complete Time: 14:55 [facility] 06/04 14:13 Order name: O2 Per Protocol; Complete Time: 14:17 [facility] 06/04 14:13 Order name: O2 Sat Monitoring; Complete Time: 14:17 [facility] EC:10 Rate is 114 beats/min. Rhythm is regular. QRS Hooper is Normal. LA interval is normal. [facility] QRS interval is normal. QT interval is normal. No Q waves. T waves are Normal. No ST changes noted. Clinical impression: LVH, Sinus tachycardia, and No evidence of ischemia. Interpreted by me. Reviewed by me. Administered Medications: 14:54 Drug: Ipratropium Inhalation Aerosol 0.5 mg Inhalation once Route: Inhalation; ld1 17:22 Follow up: Response: No adverse reaction ld1 14:54 Drug: fentaNYL (PF) IVP 25 mcg IVP once Route: IVP; Site: left antecubital; ld1 17:23 Follow up: Response: No adverse reaction; Pain is decreased ld1 14:54 Drug: Ondansetron IVP 4 mg IVP once; over 2 minutes Route: IVP; Site: left antecubital; ld1 17:23 Follow up: Response: No adverse reaction ld1 14:55 Drug: Pantoprazole IVP 40 mg IVP once Route: IVP; Site: left antecubital; ld1 17:21 Follow up: Response: No adverse reaction ld1 14:55 Drug: Rocephin IV 1 grams IV at per protocol once; Given slow IV push per pharmacy ld1 instructions Route: IV; Rate: per protocol; Site: left antecubital; 17:21 Follow up: Response: No adverse reaction; IV Status: Completed infusion; IV Intake: ld1 100ml 14:55 Drug: NS 0.9% IV 1000 ml IV at 1 bolus Per protocol; 1000 mL bolus Route: IV; Rate: 1 ld1 bolus; Site: left antecubital; 17:21 Follow up: Response: No adverse reaction; IV Status: Completed infusion; IV Intake: ld1 1000ml 14:55 Drug: NS 0.9% IV 1000 ml IV at 1 bolus Per protocol; 1000 mL bolus Route: IV; Rate: 1 ld1 bolus; Site: left antecubital; 17:21 Follow up: Response: No adverse reaction; IV Status: Completed infusion; IV Intake: ld1 1000ml 14:55 Drug: Acetaminophen PO 1000 mg PO once Route: PO; ld1 17:21 Follow up: Response: No adverse reaction ld1 14:55 Drug: Levalbuterol Inhalation 2 mg Inhalation once Route: Inhalation; ld1 17:22 Follow up: Response: No adverse reaction ld1 16:10 Drug: Zithromax IVPB 500 mg IVPB once over 1 hrs; mix in 250 mL NS Route: IVPB; Infused ld1 Over: 1 hrs; Site: left antecubital; 17:23 Follow up: Response: No adverse reaction; IV Status: Completed infusion; IV Intake: ld1 250ml 16:10 Drug: Solu-CORTEF IVP 100 mg IVP once Route: IVP; Site: left antecubital; ld1 17:23 Follow up: Response: No adverse reaction ld1 Disposition Summary: 06/04/24 16:09 Hospitalization Ordered Notes: Hospitalization Status: Inpatient Admission el Provider: Antonino Holt cha Location: Telemetry/MedSurg (Inpatient) el Condition: Fair el Problem: new el Symptoms: have worsened el Bed/Room Type: Standard el Room Assignment: 203(06/04/24 17:13) bd Diagnosis - Dyspnea el - Nausea el - Epigastric abdominal tenderness el - Fever, unspecified el - Weakness el Forms: - Medication Reconciliation Form el - SBAR form el - Leadership Thank You Letter el Signatures: Dispatcher [employer] EDIsabelle Vaca Corey, MD MD cha Baxter, Heather, RN RN hb Sims, Lauren, RN RN ld1 Corrections: (The following items were deleted from the chart) 13:20 13:16 Home Meds: atorvastatin Oral; hb hb 13:20 13:16 Home Meds: Metformin Oral; hb hb 13:20 13:16 Home Meds: gabapentin Oral; hb hb 13:27 13:27 SARS-COV-2 Antigen Rapid+I.LAB.BRZ ordered. EDMS EDMS 13:27 13:27 Influenza Screen (A \T\ B)+BA.LAB.BRZ ordered. EDMS EDMS 13:27 13:27 Respiratory Syncytial Virus Ag+BA.LAB.BRZ ordered. EDMS EDMS 14:14 14:14 BASIC METABOLIC PANEL+C.LAB.BRZ ordered. EDMS EDMS 14:14 14:14 CBC+H.LAB.BRZ ordered. EDMS EDMS 14:14 14:14 HEPATIC FUNCTION+C.LAB.BRZ ordered. EDMS EDMS 14:14 14:14 MAGNESIUM+C.LAB.BRZ ordered. EDMS EDMS 14:14 14:14 PROBNP+C.LAB.BRZ ordered. EDMS EDMS 14:14 14:14 PROTIME (+INR)+COAG.LAB.BRZ ordered. EDMS EDMS 14:14 14:14 Troponin High Sensitivity+C.LAB.BRZ ordered. EDMS EDMS 14:14 14:14 LIPASE+C.LAB.BRZ ordered. EDMS EDMS 14:14 14:14 Urinalysis+U.LAB.BRZ ordered. EDMS EDMS 14:14 14:14 BLOOD CULTURE*+BA.LAB.BRZ ordered. EDMS EDMS 14:14 14:14 LACTATE+C.LAB.BRZ ordered. EDMS EDMS 14:14 14:14 Chest Single View+RAD.RAD.BRZ ordered. EDMS EDMS 14:14 14:14 Chest Abdomen Pelvis W Con+CT.RAD.BRZ ordered. EDMS EDMS 16:43 13:07 COVID-19/FLU A+B/RSV+MOL.LAB.BRZ ordered. EDMS EDMS 17:13 16:09 el bd
--- NOTE | 2024-06-04 16:14 | RAD REPORT ---
EXAM DESCRIPTION: CT - Chest Abdomen Pelvis W Cont - 06/04/2024 3:50 pm CLINICAL HISTORY: Chest and abdomen pain. Abdominal distention;Congestion;Cough;Dyspnea COMPARISON: <Comparisons> TECHNIQUE: Approximately 100 mL nonionic IV contrast was administered to the patient. All CT scans are performed using dose optimization technique as appropriate and may include automated exposure control or mA/KV adjustment according to patient size. FINDINGS: The lungs are emphysematous.No pleural or pericardial effusion.No intrathoracic adenopathy . The liver demonstrates fatty infiltration. Postsurgical changes are present with resection of pancrea s and spleen noted. Significant atrophy of the left kidney. Several defects are present in the right kidney noted. Normal bilateral adrenal glands. No bowel obstruction, free air, free fluid or abscess. Normal appendix. Small appendicolith suspected . No pathologic lymphadenopathy in the abdomen or pelvis. Degenerative changes are present in the spine. IMPRESSION: No acute finding seen. Prominent fatty liver.
[2024-06-04] MEDS ORDERED: ACETAMINOPHEN 325 MG TABLET PO PRN (16:49)
[2024-06-04] MEDS ORDERED: ONDANSETRON 4 MG/2 ML VIAL IV PRN (16:49)
[2024-06-04] MEDS ORDERED: ACETAMINOPHEN 500 MG TAB PO PRN (16:49)
[2024-06-04] MEDS: NA CHLORIDE 0.9% 1,000 ML IV SCH (17:00)
--- NOTE | 2024-06-04 17:00 | P.HP ---
Certification for Inpatient Patient admitted to: Observation With expected LOS: <2 Midnights Patient will require the following post-hospital care: None Practitioner: I am a practitioner with admitting privileges, knowledge of patient current condition, hospital course, and medical plan of care. Services: Services provided to patient in accordance with Admission requirements found in Title 42 Section 412.3 of the Code of Federal Regulations Patient History Date of Service: 06/04/24 Reason for admission: Gastritis History of Present Illness: Sapphire Martinez is a 73 year old female with Pmhx gastritis, colitis, DM- NIDDM, HTN/HLD who presents to the ED with chief complaint of abdominal pain, nausea, cough. She reports having gastritis in the past and this is similar. She has mild leukocytosis, abdominal pain in all four quadrants, denies urinary symptoms, UA negative for infectious process, and Flu/COVID/RSV negative. Initial vitals: BP 133 / 77; Pulse 118; Resp 20; Temp 99.8(O); Pulse Ox 94% CT CAP reports "The lungs are emphysematous.No pleural or pericardial effusion.No intrathoracic adenopathy. The liver demonstrates fatty infiltration. Postsurgical changes are present with resection of pancreas and spleen noted. Significant atrophy of the left kidney. Several defects are present in the right kidney noted. Normal bilateral adrenal glands.No bowel obstruction, free air, free fluid or abscess. Normal appendix. Small appendicolith suspected. No pathologic lymphadenopathy in the abdomen or pelvis. Degenerative changes are present in the spine. IMPRESSION: No acute finding seen, prominent fatty liver Chest xray reports : Mild pulmonary edema. The heart is moderately enlarged with a tortuous thoracic aorta. No displaced fractures. IMPRESSION: Mild CHF Sapphire will be admitted to hospitalist service for further evaluation and treatment for gastritis. Allergies ibuprofen [From Advil] Allergy (Verified 05/25/20 02:31) Unknown Home Medications: Aspirin [Aspirin EC 81 MG] 1 tab PO DAILY 05/25/20 Atorvastatin Calcium [Lipitor] 40 mg PO BEDTIME 05/25/20 Glipizide [Glipizide ER] 5 mg PO BID 05/25/20 Metformin HCl 1,000 mg PO BID 05/25/20 Omeprazole [Prilosec] 40 mg PO DAILY 05/25/20 Albuterol Inhaler [Ventolin Inhaler*] 2 puff IH Q6H PRN #1 hfa.aer.ad 05/29/20 Benzonatate [Tessalon Perle*] 200 mg PO TID PRN #30 cap 05/29/20 Guaifen W/Codeine Syrup [ROBITUSSIN A-C Syrup*] 10 ml PO BID PRN #100 ml 05/29/20 Apixaban [Eliquis] 5 mg PO BID #14 tablet 06/01/20 Ascorbic Acid [Vitamin C*] 500 mg PO TID #21 tablet 06/01/20 Insulin 70/30 NPH/Reg Human [Novolin 70/30*] 20 unit SQ BIDAC ml 06/01/20 Melatonin [Melatonin*] 3 mg PO BEDTIME tablet 06/01/20 Midodrine HCl [Proamatine*] 5 mg PO TID #30 tab 06/01/20 Thiamine HCl [Vitamin B-1*] 100 mg PO DAILY #15 tablet 06/01/20 Zinc Sulfate [Zinc Sulfate*] 220 mg PO DAILY #15 cap 06/01/20 Nitroglycerin [Nitrostat*] 0.4 mg SL UD PRN #20 tab 07/17/21 - Past Medical/Surgical History Diabetic: Yes -: Htn -: NIDDM -: Hyperlipdemia -: removal of pancreas -: hysterectomy -: knee surgery - Social History Alcohol use: No CD- Drugs: No Caffeine use: Yes Review of Systems General: Fever, Weakness, Malaise Respiratory: Cough Gastrointestinal: Nausea, Abdominal Pain Physical Examination - Physical Exam General: Alert, In no apparent distress, Oriented x3 HEENT: Atraumatic, Normocephalic, PERRLA Neck: Supple, 2+ carotid pulse no bruit Respiratory: Clear to auscultation bilaterally, Normal air movement Cardiovascular: Normal pulses, Regular rate/rhythm, Normal S1 S2 Capillary refill: <2 Seconds Gastrointestinal: Normal bowel sounds, Soft and benign, Distended (obese), Tenderness (all quadrants) Musculoskeletal: No clubbing Integumentary: No rashes Neurological: Normal speech, Normal tone - Studies Laboratory Data (last 24 hrs) 06/04/24 06/04/24 06/04/24 14:49 14:49 14:45 WBC 11.80 H Hgb 13.5 Hct 41.4 Plt Count 218 PT 12.2 INR 1.09 Sodium 137 Potassium 3.5 BUN 17 Creatinine 0.70 Glucose 220 H Magnesium 1.7 Total Bilirubin 1.1 H AST 20 ALT 31 Alkaline Phosphatase 95 Lipase 22 Microbiology Data (last 24 hrs): 06/04/24 13:35 Nasopharnyx Respiratory Syncytial Virus Ag Scrn - Final 06/04/24 13:35 Nasopharnyx Influenza Type A Antigen Screen - Final 06/04/24 13:35 Nasopharnyx Influenza Type B Antigen Screen - Final Assessment and Plan - Plan Assessment and Plan Abdominal pain associated with N/V 2/2 gastritis Fatty Liver Subjective fever Mild Leukocytosis -CT CAP reports "The lungs are emphysematous.No pleural or pericardial effusion.No intrathoracic adenopathy. The liver demonstrates fatty infiltration. Postsurgical changes are present with resection of pancreas and spleen noted. Significant atrophy of the left kidney. Several defects are present in the right kidney noted. Normal bilateral adrenal glands.No bowel obstruction, free air, free fluid or abscess. Normal appendix. Small appendicolith suspected. No pathologic lymphadenopathy in the abdomen or pelvis. Degenerative changes are present in the spine. IMPRESSION: No acute finding seen, prominent fatty live -WBC 11.8, Neutrophils 79.5 -Flu/COVID/RSV negative -UA negative for infectious process -IVF -Zithromax and Rocephin given in the ED -NPO then CLD in the morning -Follow blood cultures -Protonix Q12h Pulmonary edema CHF -Chest xray reports : Mild pulmonary edema. The heart is moderately enlarged with a tortuous thoracic aorta. No displaced fractures. 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 The liver demonstrates fatty infiltration. Postsurgical changes are present with resection of pancreas and spleen noted. Significant atrophy of the left kidney. Several defects are present in the right kidney noted. Normal bilateral adrenal glands.No bowel obstruction, free air, free fluid or abscess. Normal appendix. Small appendicolith suspected. No pathologic lymphadenopathy in the abdomen or pelvis. Degenerative changes are present in the spine. IMPRESSION: No acute finding seen, prominent fatty liver Chest xray reports : Mild pulmonary edema. The heart is moderately enlarged with a tortuous thoracic aorta. No displaced fractures. IMPRESSION: Mild CHF Discharge Plan: Home Plan to discharge in: 24 Hours - Advance Directives Does patient have a Living Will: No Does patient have a Durable POA for Healthcare: No
[2024-06-04 17:56] VITALS: BMI 30.8
[2024-06-04] MEDS ORDERED: SODIUM CHLORIDE 0.9% 10ML INJ IV PRN (19:19)
[2024-06-04] MEDS: INSULIN REGULAR (HUMAN) 100 UNIT/ML SQ SCH (20:07)
[2024-06-04] MEDS: PANTOPRAZOLE 40 MG INJ IVP SCH (20:12)
[2024-06-04] MEDS: FUROSEMIDE 40 MG/4 ML VIAL IV ONE (20:12)
[2024-06-05 08:22] LABS: Absolute Eosinophils 0.2 K/uL (0-0.5); Absolute Monocytes 0.8 K/uL (0.1-1.3); Absolute Neutrophil 4.2 K/uL (1.8-8.0); Basophils % 0.4 % (0-1.3); Eosinophils % 2.3 % (0-4.4); Hematocrit 34.4 % (36.0-45.0); Hemoglobin 11.3 g/dL (12.0-15.0); Lymphocytes % 36.6 % (15.3-44.8); MCH 29.7 pg (27.0-35.0); MCV 90.1 fL (80-100); MPV 9.7 fL (7.6-11.3); Monocytes % 10.2 % (3.3-12.3); Neutrophils % 50.5 % (41.7-73.7); Platelets 184 thou/uL (152-406); RBC Red Blood Cell Count 3.82 M/uL (3.86-4.86); Red Cell Distribution Width 14.7 % (12.1-15.2)
[2024-06-05 08:45] LABS: Anion Gap 6.1 mEq/L (5.0-15.0); Magnesium 1.6 mg/dL (1.6-2.4); Phosphorus 1.9 mg/dL (2.5-4.9); Potassium 3.1 mEq/L (3.5-5.1)
[2024-06-05 08:50] VITALS: O2SAT 94
[2024-06-05] MEDS: POTASS/SODIUM PHOSPHATE 1 PKT POWD.PACK PO SCH (09:30)
[2024-06-05] MEDS: POTASSIUM 25 MEQ EFFERV TAB PO ONE (09:31)
[2024-06-05] MEDS: MAGNESIUM SULFATE 1 gm IVPB 1 GM/100 ML BAG IV ONE (09:31)
[2024-06-05 09:47] LABS: Thyroid Stimulating Hormone 0.633 uIU/mL (0.358-3.740)
[2024-06-05 12:52] VITALS: BP 128/63; TEMP 98.9
--- NOTE | 2024-06-05 16:53 | P.DS ---
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 She reports having gastritis in the past and this is similar. She has mild leukocytosis, abdominal pain in all four quadrants, denies urinary symptoms, UA negative for infectious process, and Flu/COVID/RSV negative. Initial vitals: BP 133 / 77; Pulse 118; Resp 20; Temp 99.8(O); Pulse Ox 94% CT CAP reports "The lungs are emphysematous.No pleural or pericardial effusion.No intrathoracic adenopathy. The liver demonstrates fatty infiltration. Postsurgical changes are present with resection of pancreas and spleen noted. Significant atrophy of the left kidney. Several defects are present in the right kidney noted. Normal bilateral adrenal glands.No bowel obstruction, free air, free fluid or abscess. Normal appendix. Small appendicolith suspected. No pathologic lymphadenopathy in the abdomen or pelvis. Degenerative changes are present in the spine. IMPRESSION: No acute finding seen, prominent fatty liver Chest xray reports : Mild pulmonary edema. The heart is moderately enlarged with a tortuous thoracic aorta. No displaced fractures. IMPRESSION: Mild CHF Sapphire will be admitted to hospitalist service for further evaluation and tr eatment for gastritis. Hospital Course: Sapphire Martinez is a pleasant 73 year old female with a past medical history significant for gastritis, colitis, DM-NIDDM, HTN/HLD who was admitted to the [facility] on 06/04/24 for abdominal pain, nausea, and cough. Sapphire presented to the ED with chief complaint of abdominal pain with nausea and cough. Chest xray shows mild pulmonary edema, she responded well with lasix. CT CAP showing defects to the kidneys which can be followed up outpatient. She reports feeling better this morning with the clear liquid diet, she responded well with the protonix and carafate. She states her abdominal pain has relieved significantly. She is ambulating independently. She will continue with protonix, carafate, and start cipro for urinary tract symptoms. She can follow up wit gynecology for additional investigations concerning the bump in her vagina. On 06/05/24, Sapphire was seen on morning rounds and deemed medically stable for discharge. Sapphire was discharged with instructions to schedule follow-up appointment with PCP. Sapphire was provided prescriptions for protonix, carafate, ciprofloxacin. Physical Exam General: Alert and Oriented x3, NAD HEENT: Atraumatic, Normocephalic, PERRLA Neck: Supple, 2+ carotid pulse no bruit Respiratory: bilaterally clear breath sounds, Normal air movement, on RA Cardiovascular: Normal pulses, RRR, Normal S1 S2 Capillary refill: <2 Seconds Gastrointestinal: Normal active bowel sounds, Soft and benign on palpation, Distended (obese), Tenderness (all quadrants) Musculoskeletal: No clubbing Integumentary: No rashes Neurological: Normal speech, Normal tone Vital Signs/Physical Exam: Temp Pulse Resp BP Pulse Ox 98.9 F 63 16 128/63 98 06/05/24 12:00 06/05/24 12:00 06/05/24 12:00 06/05/24 12:00 06/05/24 12:00 Laboratory Data at Discharge: WBC 8.30 thou/uL (4.3-10.9) 06/05/24 07:45 Hgb 11.3 g/dL (12.0-15.0) L D 06/05/24 07:45 Hct 34.4 % (36.0-45.0) L 06/05/24 07:45 Plt Count 184 thou/uL (152-406) 06/05/24 07:45 PT 12.2 SECONDS (9.4-12.5) 06/04/24 14:49 INR 1.09 06/04/24 14:49 Sodium 142 mEq/L (136-145) D 06/05/24 07:45 Potassium Cancelled 06/05/24 16:00 BUN 12 mg/dL (7-18) 06/05/24 07:45 Creatinine 0.51 mg/dL (0.55-1.02) L 06/05/24 07:45 Glucose 186 mg/dL (74-106) H 06/05/24 07:45 Phosphorus 1.9 mg/dL (2.5-4.9) L 06/05/24 07:45 Magnesium 1.6 mg/dL (1.6-2.4) 06/05/24 07:45 Total Bilirubin 1.1 mg/dL (0.2-1.0) H 06/04/24 14:49 AST 20 U/L (15-37) 06/04/24 14:49 ALT 31 U/L (13-56) 06/04/24 14:49 Alkaline Phosphatase 95 U/L (45-117) 06/04/24 14:49 Triglycerides 84 mg/dL (<150) 06/05/24 07:45 Cholesterol 133 mg/dL (<200) 06/05/24 07:45 HDL Cholesterol 49 mg/dL (40-60) 06/05/24 07:45 Cholesterol/HDL Ratio 2.71 06/05/24 07:45 Lipase 22 U/L (13-75) 06/04/24 14:49 Home Medications: Aspirin [Aspirin EC 81 MG] 1 tab PO DAILY 05/25/20 Atorvastatin Calcium [Lipitor] 40 mg PO BEDTIME 05/25/20 Glipizide [Glipizide ER] 5 mg PO BID 05/25/20 Metformin HCl 1,000 mg PO BID 05/25/20 Omeprazole [Prilosec] 40 mg PO DAILY 05/25/20 Albuterol Inhaler [Ventolin Inhaler*] 2 puff IH Q6H PRN #1 hfa.aer.ad 05/29/20 Benzonatate [Tessalon Perle*] 200 mg PO TID PRN #30 cap 05/29/20 Guaifen W/Codeine Syrup [ROBITUSSIN A-C Syrup*] 10 ml PO BID PRN #100 ml 05/29/20 Apixaban [Eliquis] 5 mg PO BID #14 tablet 06/01/20 Ascorbic Acid [Vitamin C*] 500 mg PO TID #21 tablet 06/01/20 Insulin 70/30 NPH/Reg Human [Novolin 70/30*] 20 unit SQ BIDAC ml 06/01/20 Melatonin [Melatonin*] 3 mg PO BEDTIME tablet 06/01/20 Midodrine HCl [Proamatine*] 5 mg PO TID #30 tab 06/01/20 Thiamine HCl [Vitamin B-1*] 100 mg PO DAILY #15 tablet 06/01/20 Zinc Sulfate [Zinc Sulfate*] 220 mg PO DAILY #15 cap 06/01/20 Nitroglycerin [Nitrostat*] 0.4 mg SL UD PRN #20 tab 07/17/21 Ciprofloxacin HCl [Cipro 500 MG Tablet] 500 mg PO BID 7 Days #14 tab 06/05/24 Pantoprazole Sodium [Protonix] 40 mg PO DAILY 30 Days #30 tab 06/05/24 Sucralfate [Carafate] 1 gm PO TID 10 Days #30 tab 06/05/24 New Medications: Sucralfate [Carafate] 1 gm PO TID 10 Days #30 tab Ciprofloxacin HCl [Cipro 500 MG Tablet] 500 mg PO BID 7 Days #14 tab Pantoprazole Sodium [Protonix] 40 mg PO DAILY 30 Days #30 tab Physician Discharge Instructions: Sapphire Martinez was treated for gastritis causing abdominal pain. continue taking the protonix daily, adding carafate to be taken with meals. Follow up with a manager order concerning the "vaginal bump." 1. Please call and schedule a follow-up appointment with your PCP in 3-5 days - Please follow-up with your PCP for medication refills/adjustments 2. Please call and schedule a follow-up appointment with gynocologist concerning the vaginal bump 3. Continue diabetic diet, start with clear liquids to continue to rest the digestive system, progress to a soft diet when tolerable 4. activity restrictions, ambulate with caution 5. Return to the ED if symptoms worsen New medications Ciprofloxacin 500 mg p.o. twice daily x 7 days Protonix 40 mg p.o. daily Carafate 1 tablet with each meal for 10 days Diet: ADA Activity: Ad leah Followup: NONE,NONE [Primary Care Provider] - (follow up in 3-5 days, call to schedule an appointment)
--- NOTE | 2024-06-07 13:55 | EKG ---
Test Date: 2024-06-04 Test Time: 14:27:06 Origination Specialist: Shiloh ZHOU MEASUREMENT RESULTS: Intervals: Rate: 114 UT: 160 QRSD: 96 QT: 344 QTc: 474 [place]: P: 33 UT: 160 QRS: -23 T: 109 INTERPRETIVE STATEMENTS: Sinus tachycardia Left ventricular hypertrophy with repolarization abnormality Abnormal ECG Compared to ECG 07/16/2021 22:43:25 Left ventricular hypertrophy now present Early repolarization now present Sinus rhythm no longer present T-wave abnormality no longer present Electronically Signed On 06-07-24 13:47:48 CDT by Mj Soto
== END 2024-06-05 13:21 | disposition home or self-care (01) ==
LOC: ER 12:58 → ERHOLD 16:49 → 2ND 17:19
PROVIDERS: ADMIT Internal Medicine; ATTEND Internal Medicine
DX: R10.13 Epigastric pain (principal); R11.2 Nausea with vomiting, unspecified; K76.0 Fatty (change of) liver, not elsewhere classified; R50.9 Fever, unspecified; D72.829 Elevated white blood cell count, unspecified; J81.1 Chronic pulmonary edema; I50.9 Heart failure, unspecified; I10 Essential (primary) hypertension; E78.5 Hyperlipidemia, unspecified; N26.1 Atrophy of kidney (terminal); I51.7 Cardiomegaly; K38.1 Appendicular concretions; K52.9 Noninfective gastroenteritis and colitis, unspecified; R53.1 Weakness; Z90.81 Acquired absence of spleen; Z90.410 Acquired total absence of pancreas; Z11.52 Encounter for screening for COVID-19
CPT/HCPCS: 96365; 87040 ×2; 85025 ×2; 81001; 80048 ×2; 36415 ×2; 83735 ×2; 84100; 85610; 80061; 82947 ×3; 80076; 83605; 84443; 84484 ×3; 84439; 83690; 83880; 87807; 87804 ×2; 71260; 74177; 71045; 96375; 99285; 87811; Q9967; J3475; J7614; J1940; J7644; J2470 ×3; J3010; J1720; J2405; J7050; J7030 ×3; J0696; 93005

== ENCOUNTER 2024-09-19 00:12 | Emergency (ER) | payer OTHER ==
--- OUTSIDE RECORDS SUMMARY | 2024-09-19 00:41 | XMS REPORT | Continuity of Care Document ---
Author Name Unknown Address [address] [facility] [address] [place] [address] [facility] thconnect Address [address] [facility] [place] [address] Care Team Providers Care Senior Clinical Data Manager Name Role Phone Diane Umanzor Primary Care Physician PETRONA BURNETTE Attending Clinician Unavailable PRETTY ERNANDEZ Attending Clinician Unavailable PRETTY ERNANDEZ Attending Clinician Unavailable Petrona Burnette MD Attending Clinician FABIAN GARCIA Attending Clinician Unavailable MAURICIO_GCBZW_Doreen_S Attending Clinician Unavaila NICHOLE Purcell Attending Clinician Unav ailable NICHOLE PERSAUD Attending Clinician Unav ailAbdelrahman Damon RN Attending Clinician Unavail able KEISHA EAST Attending Clinician Unavailable Maxi Goldberg DO Attending Clinician [phone] Keisha East DO Attending Clinician [phone] Radiology Attending Clinician Unavailable RADIOLOGY Attending Clinician Unavailable CHRISTINA LOU Attending Clinician Unavailable BETSEY BOSS Attending Clinician Unavailable Enoch AMAYA, Betsey Palumbo Attending Clinician [phone] SALLY HODGE Attending Clinician Unav ailable Doctor Unassigned, [place] Attending Clinician U navTANNER Bryson Attending Clinician Unavailable SHNAE KOHLER Attending Clinician Unavailable MONA MOSS Attending Clinician UnavailSOLOMON Berrios Attending Clinician Unavailable Solomon Millan MD Attending Clinician [phone] ALICIA FARRELL Attending Clinician Unavailable Pretty Pizarro MD Attending Clinician [phone] Unassigned, Cath/Ep Attending Clinician UnavailMAGGI Bradford Attending Clinician Unavailable Maggi Calloway MD Attending Clinician [phone] Lila Alvarado MD Attending Clinician [phone] Lisette Peck RN Attending Clinician Unavailable KARTHIK AVILA Attending Clinician Unavailable Destiney Santillan Attending Clinician [phone] Karthik Avila MD Attending Clinician [phone] [email or web address]_Kadiyala_S Admitting Clinician UnavailKEISHA Newman Admitting Clinician Unavailable Keisha East DO Admitting Clinician [phone] CHRISTINA LOU Admitting Clinician Unavailable BETSEY BOSS Admitting Clinician Unavailable SALLY HODGE Admitting Clinician Unav ailSOLOMON Black Admitting Clinician Unavailable PETRONA BURNETTE Admitting Clinician Unavailable Petrona Burnette MD Admitting Clinician [phone] Payers Payer Name Policy Type Policy Number Effective Date Expirati on Date Source [employer] HMO SNP [id number] 2023 00:00:00 [facility] D[facility] COMP H[facility] D SNP [id number] 2021 00:00:00 [place] [id number] 2023 00:00:00 [facility] (MEDICARE REPLACEMENT/[place]VANT[place] GE - HMO) [id number] [facility] DUAL COMPLETE - DUAL ELIGIBLE - [facility] (MEDICARE-MEDICAID REPLACEMENT HMO) [id number] Problems Condition Name Condition Details Condition Category Status Onset Date Resolution Date Last Treatment Date Treating Clinician Comments Source Acute abdominal pain Acute abdominal pain Disease Active 2022-10 00:00: 00 [facility] Abnormal nuclear cardiac imaging test Abnormal nuclear cardiac imaging test Disease Active 2021-10 00:00: 00 Overview: Formattin g of this note might be different from the original. Added automatic ally from request for surgery [id number] [facility] PAF (paroxysma l atrial fibrillati on) PAF (paroxysma l atrial fibrillati on) Disease Active 2021-10 00:00: 00 Overview: Formattin g of this note might be different from the original. Added automatic ally from request for surgery [id number] [facility] Reflux gastritis Reflux gastritis Disease Active 2021-10 0-11 00:00: 00 [facility] Primary hypertensi on Primary hypertensi on Disease Active 2021-10 0-05 00:00: 00 [facility] Other hyperlipid emia Other hyperlipid emia Disease Active 2021-10 0-05 00:00: 00 [facility] Elevated brain natriureti c peptide (BNP) level Elevated brain natriureti c peptide (BNP) level Disease Active 2021-10 0-05 00:00: 00 [facility] Type 2 diabetes mellitus without complicati on, without long-term current use of insulin Type 2 diabetes mellitus without complicati on, without long-term current use of insulin Disease Active 2021-10 0-05 00:00: 00 [facility] Obesity (BMI 30-39.9) Obesity (BMI 30-39.9) Disease Active 2021-10 0-05 00:00: 00 [facility] Ascending aorta dilatation Ascending aorta dilatation Disease Active 2021-10 0-05 00:00: 00 [facility] Anticoagul ant long-term use Anticoagul ant long-term use Disease Active 2021-10 0-05 00:00: 00 [facility] Chest pain, unspecifie d type Chest pain, unspecifie d type Disease Active 2021-10 0-04 00:00: 00 [facility] No known active problems No known active problems Disease [facility] Allergies, Adverse Reactions, Alerts Allergy Name Allergy Type Status Severity Reaction(s) Onset Date Inactive Date Treating Clinician Comments Source ENALAPRI L DRUG INGREDI Active COUGH 2021-10 0-11 00:00: 00 [facility] Enalapri l Propensi ty to adverse reaction s Active Cough 2021-10 0-11 00:00: 00 [facility] n Propensi ty to adverse reaction to drug Active 5-19 00:00: 00 Toney Renner Advil - Oral Propensi ty to adverse reaction to drug Active 3-28 00:00: 00 Toney Renner Ibuprofe n Propensi ty to adverse reaction s Active Rash 1-03 00:00: 00 [facility] IBUPROFE N DRUG INGREDI Active Rash 1- 00:00: 00 [facility] ibuprofe n DA Active U 4-09 00:00: 00 [facility]NOWN ALLERGIE S Drug Class Active [facility] Social History Social Habit Start Date Stop Date Quantity Comments Source Gender identity [facility] Alcohol intake 2024-01-02 00:00:00 2024-01-02 00:00:00 Lifetime non-drinker (finding) [facility] History of Social function 2024-01-02 00:00:00 2024-01-02 00:00:00 [facility] Exposure to SARS-CoV-2 (event) 2023-03-01 00:00:00 2023-03-11 19:20:00 Not sure [facility] History SDOH Food Worry 2022-08-05 00:00:00 2022-08-05 00:00:00 1 [facility] History SDOH Food Scarcity 2022-08-05 00:00:2022-08-05 00:00:00 1 [facility] History SDOH Transport Med 2022-08-05 00:00:00 2022-08-05 00:00:00 2 [facility] History SDOH Transport Non-Med 2022-08-05 00:00:00 2022-08-05 00:00:00 2 [facility] Tobacco use and exposure 2021-10-29 00:00:00 2021-10-29 00:00:00 Smokeless tobacco non-user [facility] Sex Assigned At 1950 00:00:00 1950 00:00:00 [facility] Smoking Status Start Date Stop Date Source Unknown if ever smoked [facility] Never smoked tobacco [facility] Medications Ordered Medication Name Filled Medication Name Start Date Stop Date Current Medication? Ordering Clinician Indication Dosage Frequency Signature (SIG) Comments Components Source amoxicillin 500 mg capsule 2023-10 00:00: 00 Yes 1mg Toney Renner Tresiba FlexTouch U-100 insulin 100 unit/mL (3 mL) subcutaneou s pen 2023-10 00:00: 00 Yes (3 mL) Toney Renner Januvia 100 mg tablet 2023-10 00:00: 00 Yes 1mg Toney Renner metformin 1,000 mg tablet 2023-10 00:00: 00 Yes 1mg Toney Renner atorvastati n 40 mg tablet 2023-10 00:00: 00 Yes mg Toney Renner famotidine 20 mg tablet 2023-10 00:00: 00 Yes mg Toney Renner amlodipine 5 mg tablet 2023-10 00:00: 00 Yes 1mg Toney Renner pantoprazol e 40 mg tablet,merna yed release 2023-10 00:00: 00 Yes 1mg Toney Renner prednisone 20 mg tablet 2023-10 00:00: 00 Yes 1mg Toney Renner Tylenol Extra Strength 500 mg tablet 2023-10 00:00: 00 Yes 1mg Toney Renner gabapentin 100 mg capsule 2023-10 00:00: 00 Yes 1mg Toney Renner amlodipine 5 mg tablet 2023-10 0-02 00:00: 00 Yes 1mg Toney Renner sucralfate 100 mg/mL oral suspension 0 9-06 00:00: 00 Yes mg/mL Toney Renner metformin 1,000 mg tablet 0 8-24 00:00: 00 Yes 1mg Toney Renner atorvastati n 40 mg tablet 0 8-16 00:00: 00 Yes mg Toney Renner famotidine 20 mg tablet 0 8-16 00:00: 00 Yes mg Toney Renner amlodipine 5 mg tablet 0 8-16 00:00: 00 Yes 1mg Toney Renner pantoprazol e 40 mg tablet,merna yed release 0 8-16 00:00: 00 Yes 1mg Toney Renner Januvia 100 mg tablet 0 8-16 00:00: 00 Yes 1mg Toney Renner glipizide 10 mg tablet 0 8-16 00:00: 00 Yes 1mg Toney Renner Eliquis 5 mg tablet 0 8-16 00:00: 00 Yes 1mg Toney Renner gabapentin 100 mg capsule 0 8-16 00:00: 00 Yes 1mg Toney Renner amlodipine 5 mg tablet 0 7-29 00:00: 00 Yes 1mg Toney Renner sucralfate 100 mg/mL oral suspension 0 5-12 00:00: 00 Yes mg/mL Toney Renner Eliquis 5 mg tablet 0 5-12 00:00: 00 Yes 1mg Toney Renner CARAFATE 1 GM/10ML SUSP 0 -12 00:00: 00 Yes Toney Renner atorvastati n 40 mg tablet 0 5-09 00:00: 00 Yes mg Toney Renner amlodipine 5 mg tablet 0 5-09 00:00: 00 Yes 1mg Toney Renner pantoprazol e 40 mg tablet,merna yed release 0 -09 00:00: 00 Yes 1mg Toney Renner Januvia 100 mg tablet 0 5-09 00:00: 00 Yes 1mg Toney Renner Eliquis 5 mg tablet - 00:00: 00 Yes 1mg Toney Renner glipizide 10 mg tablet - 00:00: 00 Yes 1mg Toney Renner gabapentin 100 mg capsule - 00:00: 00 Yes 1mg Toney Renner pantoprazol e 40 mg tablet,merna yed release - 00:00: 00 Yes 1mg Toney Renner Tylenol Extra Strength 500 mg tablet - 00:00: 00 Yes 1mg Toney Renner azithromyci n 250 mg tablet 01-26 00:00: 00 Yes 1mg Toney Renner AZITHROMYCI N 250MG 01-26 00:00: 00 Yes 250 Toney Renner TAKE 1 TABLET BY MOUTH NIGHTLY - 00:00: 00 Yes 40 Toney Renner TAKE 1 CAPSULE AT BEDTIME. - 00:00: 00 Yes 100 Toney Renner TAKE 1 TABLET DAILY. - 00:00: 00 Yes 100 Toney Renner TAKE 1 TABLET TWICE A DAY 30 MINUTES BEFORE MEALS 2- 00:00: 00 Yes 10 Toney Renner metformin 1,000 mg tablet - 00:00: 00 Yes 1000mg Toney Renner GLIPIZIDE XL 10MG 2- 00:00: 00 Yes Toney Renner AMLODIPINE 5MG 2- 00:00: 00 Yes Toney Renner TAKE 10 ML 4 TIMES DAILY 2- 00:00: 00 03-10 00:00 :00 No 110 Toney Renner famotidine 20 mg tablet 1-18 00:00: 00 Yes mg Toney Renner RINSE MOUTH WITH 15ML (1 CAPFUL) FOR 30 SECONDS AM AND PM AFTER TOOTHBRUSHI NG. EXPECTORATE AFTER RINSING, DO NOT SWALLOW -15 00:00: 00 03-10 00:00 :00 No 12 Toney Renner SUCRALFATE 1 GM/10ML SUSP 2022-10- 00:00: 00 Yes Toney Renner TAKE 1 TABLET BY MOUTH EVERY 4 TO 6 HOURS NEEDED 2022-10 00:00: 00 Yes Toney Renner TAKE 10 ML 4 TIMES DAILY 2022-10 00:00: 00 03-10 00:00 :00 No 110 Toney Renner TAKE 1 TABLET EVERY 4 TO 6 HOURS NEEDED. 2022-10 00:00: 00 03-10 00:00 :00 No 500 Toney Renner CYCLOBENZAP RINE HYDROCHLORI DE 5 MG TABS 2022-10 00:00: 00 Yes Toney Renner SODIUM SULFATE/POT ASSIUM SULFATE/MA GNESIUM SULFATE 17.5-3.13-1 .6 GM/177ML SOLN 2022-10 00:00: 00 Yes Toney Renner apixaban 5 mg tablet 2022-10 11:38: 53 Yes 5mg Take 5 mg by mouth 2 (two) times daily. [facility] atorvastati n 40 mg tablet 2022-10 11:38: 53 Yes 40mg Take 40 mg by mouth at bedtime. [facility] SITagliptin 25 mg tablet 2022-10 11:38: 53 Yes 25mg Take 25 mg by mouth daily. [facility] amLODIPine 5 mg tablet 2022-10 11:38: 53 Yes 5mg Take 5 mg by mouth daily. [facility] glipiZIDE 10 mg tablet 2022-10 11:38: 53 Yes 10mg Take 10 mg by mouth 2 (two) times daily. [facility] metFORMIN 1,000 mg tablet 2022-10 11:38: 53 Yes 1000mg Take 1,000 mg by mouth 2 (two) times daily with meals. [facility] omeprazole 40 mg capsule 2022-10 11:38: 53 Yes 40mg Take 1 capsule by mouth daily. [facility] AMOXICILLIN /CLAVULANAT E POTASSIUM 875-125 MG TABS 2022-10 00:00: 00 Yes Toney Renner TAKE 1 TABLET BY MOUTH EVERY 6 (SIX) HOURS NEEDED FOR PAIN (SCALE 4-6) FOR UP TO 7 DAYS. 2022-10 00:00: 00 Yes Toney Renner amoxicillin -clavulanat e (AUGMENTIN) 875-125 mg per tablet 2022-10 00:00: 00 09-16 05:59 :00 No [id number] 1{tbl} Take 1 tablet by mouth 2 (two) times daily for 10 days. [facility] traMADoL 50 mg tablet 2022-10 00:00: 00 09-13 05:59 :00 No [id number] 50mg Take 1 tablet by mouth every 6 (six) hours as needed for Pain (scale 4-6) for up to 7 days. Indication s: acute pain [facility] morpHINE (2 mg/mL) injection 2 mg 2022-10 04:22: 54 Yes 2mg 2 mg, Slow IV Push, Q6HPRN, Starting on Fri09/03/23 at 2222, Until Discontinu ed, Routine, Pain (scale 7-10), Pain (scale 4-6) [facility] KCL (KLOR-CON M20) tablet 40 mEq 2022-10 20:00: 00 09-03 20:15 :00 No 40meq 40 mEq, Oral, ONCE, 1 dose, On Fri09/03/23 at 1400, Routine [facility] magnesium sulfate in water 2 gram/50 mL (4 %) infusion 2 g 2022-10 16:15: 00 09-03 16:47 :00 No 2g 2 g, IV Piggyback, Administer over 60 Minutes, ONCE, 1 dose, On Fri09/03/23 at 1015, Routine [facility] atorvastati n (LIPITOR) tablet 40 mg 2022-10 03:00: 00 Yes 40mg 40 mg, Oral, QHS, First dose on Fri09/02/23 at 2100, Until Discontinu ed, Routine [facility] butalbital- acetaminoph en-caff (ESGIC) 50-325-40 mg tablet 1 tablet 2022-10 00:08: 37 Yes 1{tbl} 1 tablet, Oral, Q6HPRN, Starting on Fri09/02/23 at 1808, Until Discontinu ed, Routine, Headache [facility] acetaminoph en (TYLENOL) tablet 650 mg 2022-10 00:08: 26 Yes 650mg 650 mg, Oral, Q6HPRN, Starting on Fri09/02/23 at 1808, Until Discontinu ed, Routine, Pain (scale 1-3), Temp > 38 C [facility] Sliding Scale Insulin - Lispro (HumaLOG) 2022-10 18:00: 00 Yes Subcutaneo us, TID MEALS+HS, First dose on Fri09/02/23 at 1200, Until Discontinu ed, Routine [facility] sucralfate (CARAFATE) tablet 1 g 2022-10 17:30: 00 Yes 1g 1 g, Oral, AC+HS, First dose on Fri09/02/23 at 1130, Until Discontinu ed, Routine [facility] amLODIPine (NORVASC) tablet 5 mg 2022-10 15:00: 00 Yes 5mg 5 mg, Oral, DAILY, First dose on Fri09/02/23 at 0900, Until Discontinu ed, Routine [facility] glucagon (GLUCAGEN DIAGNOSTIC KIT) injection 1 mg 2022-10 14:48: 44 Yes 1mg 1 mg, Intramuscu lar, PRN, Starting on Fri09/02/23 at 0848, Until Discontinu ed, AUDRA, Blood Glucose < or = 70 mg/dL and patient is NPO, unable to swallow or has mental changes. [facility] dextrose 50 % in water (D50W) injection 25 mL 2022-10 14:48: 44 Yes 25mL 25 mL, Slow IV Push, PRN, Starting on Fri09/02/23 at 0848, Until Discontinu ed, AUDRA, Blood Glucose < or = 70 mg/dL and patient is NPO, unable to swallow or has mental status changes. [facility] docusate (COLACE) capsule 100 mg 2022-10 14:00: 00 Yes 100mg 100 mg, Oral, BID, First dose on Fri09/02/23 at 0800, Until Discontinu ed, Routine [facility] apixaban (ELIQUIS) tablet 5 mg 2022-10 14:00: 00 Yes 5mg 5 mg, Oral, BID, First dose on Fri09/02/23 at 0800, Until Discontinu ed, Routine
Indicatio ns: Non-Valvul ar Atrial Fibrillati on [facility] piperacilli n-tazobacta m (ZOSYN) 3.375 g in [...] Abdominal< br>Duratio n of Therapy: 7 days [facility] piperacilli n-tazobacta m (ZOSYN) 3.375 g in NaCl 0.9% (NS) 100 mL MINI-BAG 2022-10 02:15: 00 09-02 03:09 :00 No 3.375g 3.375 g, IV Piggyback, ONCE, 1 dose, On Fri09/01/23 at 2015, Administer over 30 Minutes, 100 mL
Reas on for Anti-Infec tive: Documented Infection< br>Documen meet Infection Site: Abdominal< br>Duratio n of Therapy: 7 days [facility] lactated ringers IV infusion 1,000 mL 2022-10 01:30: 00 Yes 1000mL at 75 mL/hr, 1,000 mL, IV Infusion, CONTINUOUS , Starting on Fri09/01/23 at 1930, Until Discontinu ed, Routine [facility] ondansetron (ZOFRAN (PF)) injection 4 mg 2022-10 01:18: 14 Yes 4mg 4 mg, Slow IV Push, Q6HPRN, Starting on Fri09/01/23 at 1918, Until Discontinu ed, Routine, Nausea and Vomiting (N/V) [facility] morpHINE (2 mg/mL) injection 4 mg 2022-10 01:18: 10 09-03 01:17 :10 No 4mg 4 mg, Slow IV Push, Q4HPRN, Starting on Fri09/01/23 at 1918, Until Fri09/02/23 at 1917, Routine, Pain (scale 7-10) [facility] iopamidol (ISOVUE 370-500 mL) injection 100 mL 2022-10 00:45: 00 09-02 00:45 :00 No [id number] 100mL 100 mL, Intravenou s, ONCE, 1 dose, On Fri09/01/23 at 1845, Routine [facility] acetaminoph en ADULT (OFIRMEV) injection 1,000 mg 2022-10 23:45: 00 09-01 23:15 :00 No 1000mg 1,000 mg, IV Infusion, at 400 mL/hr Administer over 15 Minutes, ONCE, 1 dose, On Fri09/01/23 at 1745, Routine
Indicatio n: Non-periop erative Patient
Approved by: Per Policy (NPO Status) [facility] FENTanyl PF (SUBLIMAZE (PF)) injection 75 mcg 2022-10 23:00: 00 09-01 22:59 :00 No 75ug 75 mcg, Slow IV Push, ONCE, 1 dose, On Fri09/01/23 at 1700, AUDRA [facility] NaCl 0.9% (NS) bolus infusion 500 mL 2022-10 22:51: 00 09-02 01:25 :00 No 500mL at 999 mL/hr, 500 mL, IV Infusion, ONCE, 1 dose, On Fri09/01/23 at 1700, STAT [facility] ondansetron (ZOFRAN (PF)) injection 4 mg 2022-10 22:49: 00 09-01 22:59 :00 No 4mg 4 mg, Slow IV Push, ONCE, 1 dose, On Fri09/01/23 at 1700, [facility] NaCl 0.9% (NS) bolus infusion 500 mL 2022-10 22:30: 00 09-01 22:59 :00 No 500mL at 999 mL/hr, 500 mL, IV Infusion, ONCE, 1 dose, On Fri09/01/23 at 1630, [facility] atorvastati n 40 mg tablet 2022-10 [...] MOUTH TWICE A DAY 2022-10 00:00: 00 03-10 00:00 :00 No 1000 Toney Renner TAKE 1 TABLET DAILY. 2022-10 00:00: 00 03-10 00:00 :00 No 40 Toney Renner TAKE 1 TABLET DAILY. 2022-10 00:00: 00 03-10 00:00 :00 No 100 Toney Renner TAKE 1 TABLET BY MOUTH EVERY DAY AT NIGHT 2022-10 00:00: 00 03-10 00:00 :00 No 40 Toney Camryn Renner PANTOPRAZOL E SODIUM 40 MG TBEC 07-18 00:00: 00 Yes Toney Renner TAKE 1 TABLET BY MOUTH THREE TIMES A DAY 07-17 00:00: 00 Yes Toney Renner TAKE 1 TABLET TWICE DAILY. 07-16 00:00: 00 03-10 00:00 :00 No 500 Toney Renner TAKE 1 CAPSULE AT BEDTIME. 07-16 00:00: 00 03-10 00:00 :00 No 100 Toney Renner TAKE 1 TABLET AT BEDTIME NEEDED. 07-16 00:00: 00 03-10 00:00 :00 No 750 Toney Renner TAKE 1 OR 2 TABLETS EVERY 8 HOURS NEEDED. 07-16 00:00: 00 03-10 00:00 :00 No 1 Toney Renner ESTRADIOL 0.1 MG/GM CREA 06-25 00:00: 00 Yes Toney Renner iopamidol (ISOVUE 370-500 mL) injection 100 mL 06-22 06:00: 00 06-22 06:00 :00 No [id number] 100mL 100 mL, Intravenou s, ONCE, 1 dose, On 06/22/23 at 0100, Routine [facility] morpHINE (4 mg/mL) injection 4 mg 06-22 05:15: 00 06-22 04:44 :00 No 4mg 4 mg, Slow IV Push, ONCE, 1 dose, On 06/22/23 at 0015, Routine [facility] ondansetron (ZOFRAN (PF)) injection 4 mg 06-22 04:30: 00 06-22 04:43 :00 No 4mg 4 mg, Slow IV Push, ONCE, 1 dose, On 06/21/23 at 2330, AUDRA [facility] pantoprazol e (PROTONIX) EC tablet 40 mg 06-22 03:30: 00 Yes 40mg 40 mg, Oral, DAILY, First dose on 06/21/23 at 2230, Until Discontinu ed, Routine [facility] naproxen 500 mg tablet 06-22 01:55: 23 06-22 00:00 :00 No 500mg Take 500 mg by mouth 2 (two) times daily with meals. [facility] pantoprazol e 40 mg EC tablet 06-22 00:00: 00 07-23 04:59 :00 No [id number] 40mg Take 1 tablet by mouth 2 (two) times daily for 30 days. [facility] TAKE 1 CAPSULE 3 TIMES DAILY NEEDED. 06-19 00:00: 00 03-10 00:00 :00 No 200 Toney Renner TAKE 1 CAPSULE 3 TIMES DAILY NEEDED. 06-18 00:00: 00 03-10 00:00 :00 No 200 Toney Renner TAKE 2 TABLETS ON DAY 1 THEN TAKE 1 TABLET A DAY FOR 4 DAYS. 06-18 00:00: 00 03-10 00:00 :00 No 250 Toney Renner aspirin chewable tablet 324 mg 06-02 14:00: 00 Yes 324mg 324 mg, Oral, DAILY, First dose on Fri06/02/23 at 0900, Until Discontinu ed, Routine [facility] HYDROcodone -acetaminop hen (NORCO 5) 5-325 mg tablet 1 tablet 06-02 02:00: 00 06-02 02:19 :00 No 1{tbl} 1 tablet, Oral, ONCE, 1 dose, On Fri06/01/23 at 2100, AUDRA [facility] famotidine (PEPCID (PF)) injection 20 mg 06-01 23:45: 00 06-02 00:24 :00 No 20mg 20 mg, Slow IV Push, ONCE, 1 dose, [facility]06/01/23 at 1845[facility] 81 MG CHEW 05-12 00:00: 00 Yes Toney Renner TAKE 1 TABLET BY MOUTH THREE TIMES A DAY BEFORE MEALS FOR GASTRITIS 05-12 00:00: 00 Yes Toney Renner JANUVIA 100 MG TABS 05-02 00:00: 00 Yes Toney Renner TAKE 1 TABLET BY MOUTH TWICE A DAY 05-02 00:00: 00 Yes Toney Renner TAKE 1 TABLET DAILY 05-02 00:00: 00 Yes Toney Renner AMLODIPINE BESYLATE 5 MG TABS 05-02 00:00: 00 Yes Toney Renner TAKE 1 TABLET TWICE A DAY 30 MINUTES BEFORE MEALS 05-02 00:00: 00 03-10 00:00 :00 No 10 Toney Renner TAKE 1 TABLET BY MOUTH NIGHTLY 05-02 00:00: 00 03-10 00:00 :00 No 40 Toney Renner TAKE 1 TABLET DAILY. 05-02 00:00: 00 03-10 00:00 :00 No 10 Toney Renner PANTOPRAZOL E SODIUM 40 MG TBEC 04-01 00:00: 00 Yes Toney Renner TAKE 1 TABLET TWICE A DAY 30 MINUTES BEFORE MEALS 03-24 00:00: 00 03-10 00:00 :00 No 10 Toney Renner TAKE 1 TABLET BY MOUTH THREE TIMES DAILY BEFORE MEAL(S) FOR GASTRITIS 03-23 00:00: 00 Yes Toney Renner ONDANSETRON HYDROCHLORI DE 4 MG TABS 03-23 00:00: 00 Yes Toney Renner maalox:diph enhydrAMINE :lidocaine 2 % viscous 1:1:1 ([facility] oral suspension 15 mL 03-12 03:45: 00 03-12 03:37 :00 No 15mL 15 mL, Oral, ONCE, 1 dose, On Fri03/11/23 at 2245, [facility] furosemide (LASIX) injection 10 mg 03-12 03:30: 00 03-12 03:37 :00 No 10mg 10 mg, IV Push, ONCE, 1 dose, On Fri03/11/23 at 2230, [facility] famotidine (PEPCID (PF)) injection 20 mg 03-12 02:45: 00 03-12 02:47 :00 No 20mg 20 mg, Slow IV Push, ONCE, 1 dose, On Fri03/11/23 at 2145, [facility] iopamidol (ISOVUE 370-500 mL) injection 75 mL 03-12 02:30: 00 03-12 02:45 :00 No [id number] 75mL 75 mL, Intravenou s, ONCE, 1 dose, On Fri03/11/23 at 2145, Routine [facility] PANTOPRAZOL E SODIUM 20 MG TBEC 17 00:00: 00 Yes Toney Renner pantoprazol e (PROTONIX) 20 mg EC tablet 16 00:00: 00 06-22 00:00 :00 No [id number] 20mg Take 1 tablet by mouth daily. [facility] TAKE 1 TABLET BY MOUTH TWICE A [...] MG TABS 01-23 00:00: 00 Yes Toney Renenr TAKE 1 TABLET TWICE A DAY 30 MINUTES BEFORE MEALS 01-06 00:00: 00 03-10 00:00 :00 No 10 Toney Renner atorvastati n 40 mg tablet 12-19 13:21: 52 Yes 40mg Take 40 mg by mouth at bedtime. [facility] SITagliptin 25 mg tablet 12-19 13:21: 52 Yes 25mg Take 25 mg by mouth daily. [facility] amLODIPine 5 mg tablet 12-19 13:21: 52 Yes 5mg Take 5 mg by mouth daily. [facility] glipiZIDE 10 mg tablet 12-19 13:21: 52 Yes 10mg Take 10 mg by mouth 2 (two) times daily. [facility] metFORMIN 1,000 mg tablet 12-19 13:21: 52 Yes 1000mg Take 1,000 mg by mouth 2 (two) times daily with meals. [facility] apixaban 5 mg tablet 12-19 13:21: 52 Yes 5mg Take 5 mg by mouth 2 (two) times daily. [facility] iohexol (OMNIPAQUE 300-100 mL) injection 11-21 14:47: 16 11-21 15:03 :49 No ONCE INTRA PROCEDURE, Starting on Dianna 11/21/22 at 0847, Until Dianna 11/21/22 at 0903, Routine, CV Intraproce dure [facility] heparin 1,000 unit/mL injection 11-21 14:11: 56 11-21 15:03 :49 No ONCE INTRA PROCEDURE, Starting on Dianna 11/21/22 at 0811, Until Dianna 11/21/22 at 0903, Routine, CV Intraproce dure [facility] nitroglycer in (TRIDIL) 2 mg in 10 mL D5W for Cardiac Cath 11-21 14:11: 31 11-21 15:03 :49 No ONCE INTRA PROCEDURE, Starting on Dianna 11/21/22 at 0811, Until Dianna 11/21/22 at 0903, Routine, CV Intraproce dure [facility] lidocaine 1% (PF) (XYLOCAINE) injection 11-21 14:07: 13 11-21 15:03 :49 No ONCE INTRA PROCEDURE, Starting on Dianna 11/21/22 at 0807, Until Dianna 11/21/22 at 0903, Routine, CV Intraproce dure [facility] midazolam (VERSED) injection 11-21 14:05: 17 11-21 15:03 :49 No ONCE INTRA PROCEDURE, Starting on Dianna 11/21/22 at 0805, Until Dianna 11/21/22 at 0903, Routine, CV Intraproce dure [facility] FENTanyl PF (SUBLIMAZE (PF)) injection 11-21 14:05: 08 11-21 15:03 :49 No ONCE INTRA PROCEDURE, Starting on Dianna 11/21/22 at 0805, Until Dianna 11/21/22 at 0903, Routine, CV Intraproce dure [facility] aspirin tablet 11-21 13:59: 19 11-21 15:03 :49 No ONCE INTRA PROCEDURE, Starting on Dianna 11/21/22 at 0759, Until Dianna 11/21/22 at 0903, Routine, CV Intraproce dure [facility] apixaban 5 mg tablet 11-21 12:27: 07 Yes 5mg Take 5 mg by mouth 2 (two) times daily. [facility] naproxen 500 mg tablet 11-21 12:27: 07 Yes 500mg Take 500 mg by mouth 2 (two) times daily with meals. [facility] atorvastati n 40 mg tablet 11-21 12:27: 07 Yes 40mg Take 40 mg by mouth at bedtime. [facility] SITagliptin 25 mg tablet 11-21 12:27: 07 Yes 25mg Take 25 mg by mouth daily. [facility] amLODIPine 5 mg tablet 11-21 12:27: 07 Yes 5mg Take 5 mg by mouth daily. [facility] glipiZIDE 10 mg tablet 11-21 12:27: 07 Yes 10mg Take 10 mg by mouth 2 (two) times daily. [facility] metFORMIN 1,000 mg tablet 11-21 12:27: 07 Yes 1000mg Take 1,000 mg by mouth 2 (two) times daily with meals. [facility] acetaminoph en (TYLENOL) tablet 650 mg 10-27 19:15: 00 10-27 19:19 :00 No 650mg 650 mg, Oral, ONCE, 1 dose, On 10/27/22 at 1315, AUDRA [facility] nirmatrelvi r-ritonavir 300 mg (150 mg x 2)-100 mg tablet 10-27 00:00: 00 06-01 00:00 :00 No [id number] 3{tbl} Take 3 tablets by mouth 2 (two) times daily. [facility] Dextrometho rphan-Guaif enesin (MUCINEX DM) 60-1,200 mg Tb12 1- 00:00: 00 11-04 05:59 :00 No [id number] 1{tbl} Take 1 tablet by mouth every 12 (twelve) hours for 7 days. [facility] TAKE 1 TABLET BY MOUTH EVERY DAY 2021-10 2-17 00:00: 00 Yes Toney Renner TAKE 1 TABLET BY MOUTH NIGHTLY 2021-10 2-17 00:00: 00 No 40 TAKE 1 TABLET BY MOUTH EVERY DAY 2021-10 2-17 00:00: 00 No 5 TAKE 1 TABLET BY MOUTH NIGHTLY 2021-10 2-17 00:00: 00 - 00:00 :00 No 40 Toney Camryn Zurdo Dose Unknown 2021-10 2- 00:00: 00 Yes Toney F Zurdo [...] Unknown 2021-10 2-15 00:00: 00 Yes Toney Renner TAKE 1 TABLET BY MOUTH TWICE A DAY WITH FOOD 2021-10 2-15 00:00: 00 Yes Toney F Zurdo Dose Unknown 2021-10 2-15 00:00: 00 Yes Toney Renner TAKE 1 TABLET BY MOUTH TWICE DAILY NEEDED FOR PAIN 2021-10 2-15 00:00: 00 Yes Toney Camryn Renner ATORVASTATI N CALCIUM 40 MG TABS 2021-10 2-15 00:00: 00 Yes 40 Toney F Zurdo Dose Unknown 2021-10 2-15 00:00: 00 Yes Toney Renner APPLY THIN FILM TO AFFECTED AREA 2 TIMES DAILY FOR 7 DAYS 2021-10 2-15 00:00: 00 Yes Toney F Zurdo Dose Unknown 2021-10 2-15 00:00: 00 Yes Toney F Zurdo Dose Unknown 2021-10 2-15 00:00: 00 Yes Toney F Zurdo Dose Unknown 2021-10 2-15 00:00: 00 Yes Toney Renner APPLY SPARINGLY TO AFFECTED AREA(S) TWICE DAILY 2021-10 2-15 00:00: 00 No TAKE 1 TABLET BY MOUTH EVERY DAY 2021-10 2-15 00:00: 00 No TAKE 1 TABLET TWICE DAILY WITH FOOD. 2021-10 2- 00:00: 00 No TAKE 7.5 ML PO EVERY 6 TO 8 HOURS NEEDED FOR COUGH 2021-10 2 00:00: 00 No INSTILL 3 DROPS IN AFFECTED EAR(S) TWICE DAILY. 2021-10 2 00:00: 00 No TAKE 1 TABLET BY MOUTH TWICE A DAY 2021-10 2 00:00: 00 No ELIQUIS 5 MG TABS 2021-10 2- 00:00: 00 No Dose Unknown 2021-10 2 00:00: 00 No KETOCONAZOL E 2 % SHAM 2021-10 2 00:00: 00 No NAPROXEN 500 MG TABS 2021-10 2- 00:00: 00 No ACETAMINOPH EN/CODEINE 300-15 MG TABS 2021-10 2 00:00: 00 No Dose Unknown 2021-10 215 00:00: 00 No Dose Unknown 2021-10 2- 00:00: 00 No Dose Unknown 2021-10 2-15 00:00: 00 No Dose Unknown 2021-10 2 00:00: 00 No Dose Unknown 2021-10 2 00:00: 00 No TAKE 1 TABLET BY MOUTH EVERY 12 HOURS FOR 7 DAYS 2021-10 2-15 00:00: 00 No TAKE 1 TABLET BY MOUTH EVERY 6 HOURS NEEDED FOR PAIN FOR UP TO 7 DAYS 2021-10 2-15 00:00: 00 No Dose Unknown 2021-10 2-15 00:00: 00 No TAKE 1 TABLET BY MOUTH TWICE A DAY WITH FOOD 2021-10 2- 00:00: 00 No NITROFURANT OIN MONOHYDRATE /MACROCRY STALS 100 MG CAPS 2021-10 2-15 00:00: 00 No TAKE 1 TABLET BY MOUTH TWICE DAILY NEEDED FOR PAIN 2021-10 2- 00:00: 00 No Dose Unknown 2021-10 2-15 [...] ATORVASTATI N CALCIUM 40 MG TABS 2021-10 2 00:00: 00 No 40 Dose Unknown 2021-10 2 00:00: 00 No APPLY THIN FILM TO AFFECTED AREA 2 TIMES DAILY FOR 7 DAYS 2021-10 215 00:00: 00 No Dose Unknown 2021-10 215 00:00: 00 No Dose Unknown 2021-10 00:00: 00 No Dose Unknown 2021-10 00:00: 00 No APPLY TO SCALP EVERY OTHER DAY FOR 5 MINUTES AND RINSE. 2021-10 00:00: 00 03-10 00:00 :00 No Toney F Zurdo USE DIRECTED ON PACKAGE 2021-10 00:00: 00 03-10 00:00 :00 No Toney F Zurdo INSTILL 3 DROPS IN AFFECTED EAR(S) TWICE DAILY. 2021-10 00:00: 00 03-10 00:00 :00 No Toney F Zurdo TAKE 1 TABLET TWICE A DAY 30 MINUTES BEFORE MEALS 2021-10 00:00: 00 03-10 00:00 :00 No Toney F Zurdo ELIQUIS 5 MG TABS 2021-10 00:00: 00 03-10 00:00 :00 No Toney F Zurdo Dose Unknown 2021-10 00:00: 00 03-10 00:00 :00 No Toney F Zurdo TAKE 1 TABLET BY MOUTH TWICE A DAY 2021-10 00:00: 00 03-10 00:00 :00 No Toney F Zurdo Dose Unknown 2021-10 00:00: 00 03-10 00:00 :00 No Toney F Zurdo Dose Unknown 2021-10 00:00: 00 03-10 00:00 :00 No Toney F Zurdo Dose Unknown 2021-10 00:00: 00 03-10 00:00 :00 No Toney F Zurdo Dose Unknown 2021-10 2 00:00: 00 03-10 00:00 :00 No Toney F Zurdo Dose Unknown 2021-10 00:00: 00 03-10 00:00 :00 No Toney Renner AMLODIPINE BESYLATE 5 MG TABS 2021-10 00:00: 00 Yes Toney Renner AMLODIPINE BESYLATE 5 MG TABS 2021-10 00:00: 00 No AMLODIPINE BESYLATE 5 MG TABS 2021-10 00:00: 00 No APPLY SPARINGLY TO AFFECTED AREA(S) TWICE DAILY 2021-10 00:00: 00 No 2 APPLY SPARINGLY TO AFFECTED AREA(S) TWICE DAILY 2021-10 00:00: 00 03-10 00:00 :00 No 2 Toney Renner APPLY TO SCALP EVERY OTHER DAY FOR 5 MINUTES AND RINSE. 2021-10 00:00: 00 Yes Toney Renner TAKE 2 TABLETS BY MOUTH EVERY 6 HOURS NEEDED 2021-10 00:00: 00 Yes Toney Renner APPLY TO SCALP EVERY OTHER DAY [...] 6 HOURS NEEDED 2021-10 00:00: 00 No TAKE 7.5 ML BY MOUTH EVERY 6 TO 8 HOURS NEEDED FOR COUGH 2021-10 00:00: 00 Yes Toney Renner JANUVIA 100 MG TABS 2021-10 00:00: 00 Yes Toney Renner TAKE 7.5 ML BY MOUTH EVERY 6 TO 8 HOURS NEEDED FOR COUGH 2021-10 00:00: 00 No TAKE 1 TABLET BY MOUTH TWICE A DAY 2021-10 00:00: 00 No OMEPRAZOLE 40 MG CPDR 2021-10 00:00: 00 No TAKE 1 TABLET BY MOUTH TWICE A DAY 2021-10 00:00: 00 No OMEPRAZOLE 40 MG CPDR 2021-10 00:00: 00 No TAKE 1 TABLET BY MOUTH TWICE A DAY 2021-10 00:00: 00 No OMEPRAZOLE 40 MG CPDR 2021-10 00:00: 00 No TAKE 1 TABLET BY MOUTH TWICE A DAY 2021-10 00:00: 00 03-10 00:00 :00 No Toney Renner OMEPRAZOLE 40 MG CPDR 2021-10 00:00: 00 03-10 00:00 :00 No Toney Renner TAKE 2 CAPSULES BY MOUTH EVERY 8 HOURS FOR 5 DAYS 2021-10 00:00: 00 Yes Toney Renner IBUPROFEN 400 MG TABS 2021-10 00:00: 00 Yes 400 Toney Renner TAKE 2 CAPSULES BY MOUTH EVERY 8 HOURS FOR 5 DAYS 2021-10 00:00: 00 No IBUPROFEN 400 MG TABS 2021-10 00:00: 00 No 400 JANUVIA 25 MG TABS 2021-10 024 00:00: 00 Yes Toney Renner Dose Unknown 2021-10 0-24 00:00: 00 No JANUVIA 25 MG TABS 2021-10 0-24 00:00: 00 No JANUVIA 25 MG TABS 2021-10 0-24 00:00: 00 No KETOCONAZOL E 2 % CREA 2021-10 0-18 00:00: 00 Yes Toney Renner JANUVIA 100 MG TABS 2021-10 0-18 00:00: 00 Yes Toney Renner KETOCONAZOL E 2 % SHAM 2021-10 018 00:00: 00 Yes Toney Renner TAKE 1 CAPSULE BY MOUTH EVERY DAY 2021-10 0-18 00:00: 00 No TAKE 1 CAPSULE BY MOUTH EVERY DAY 2021-10 018 00:00: 00 No TAKE 1 CAPSULE BY MOUTH EVERY DAY 2021-10 018 00:00: 00 No Dose Unknown 2021-10 018 00:00: 00 No Dose Unknown 2021-10 0-18 00:00: 00 03-10 00:00 :00 No Toney Renner regadenoson (LEXISCAN) injection 0.4 mg 2021-10 0 18:15: 00 08-08 17:58 :00 No [id number] .4mg 0.4 mg, IV Push, ONCE, 1 dose, On Dianna 08/08/22 at 1315, Routine
crew member approving Restricted medication : PETRONA BURNETTE [facility] tc 99m-tetrofo smin (MYOVIEW) injection 39.1 millicurie 2021-10 17:30: 00 08-08 17:24 :00 No [id number] 39.1mCi 39.1 millicurie , Intravenou s, ONCE, 1 dose, On Dianna 08/08/22 at 1230, Routine [facility] tc 99m-tetrofo smin (MYOVIEW) injection 15.5 millicurie 2021-10 16:30: 00 08-08 16:22 :00 No [id number] 15.5mCi 15.5 millicurie , Intravenou s, ONCE, 1 dose, On Dianna 08/08/22 at 1130, Routine [facility] omeprazole 40 mg capsule 2021-10 12:01: 28 08-06 00:00 :00 No 40mg Take 40 mg by mouth daily. [facility] OMEPRAZOLE 40 MG CPDR 2021-10 00:00: 00 Yes Toney Renner omeprazole 40 mg capsule 2021-10 00:00: 00 06-22 00:00 :00 No [id number] 40mg Take 1 capsule by mouth daily. [facility] maalox:diph enhydrAMINE :lidocaine 2 % viscous 1:1:1 ([facility]) oral suspension 15 mL 2021-10 15:45: 00 08-02 16:29 :00 No 15mL 15 mL, Oral, ONCE, 1 dose, On Fri08/02/22 at 1045, Routine [facility] SITagliptin 25 mg tablet 2021-10 14:21: 05 Yes 25mg Take 25 mg by mouth daily. [facility] amLODIPine 5 mg tablet 2021-10 14:21: 05 Yes 5mg Take 5 mg by mouth daily. [facility] glipiZIDE 10 mg tablet 2021-10 14:21: 05 Yes 10mg Take 10 mg by mouth 2 (two) times daily. [facility] omeprazole 40 mg capsule 2021-10 14:21: 05 Yes 40mg Take 40 mg by mouth daily. [facility] metFORMIN 1,000 mg tablet 2021-10 14:21: 05 Yes 1000mg Take 1,000 mg by mouth 2 (two) times daily with meals. [facility] apixaban 5 mg tablet 2021-10 14:21: 05 Yes 5mg Take 5 mg by mouth 2 (two) times daily. [facility] naproxen 500 mg tablet 2021-10 14:21: 05 Yes 500mg Take 500 mg by mouth 2 (two) times daily with meals. [facility] atorvastati n 40 mg tablet 2021-10 14:21: 05 Yes 40mg Take 40 mg by mouth at bedtime. [facility] CYCLOBENZAP RINE HYDROCHLORI DE 10 MG TABS 2021-10 00:00: 00 Yes Toney Camryn Zurdo HYDROCODONE BITARTRATE/ ACETAMINOPH E N 5-325 MG TABS 2021-10 00:00: 00 Yes Toney Renner cyclobenzap rine 10 mg tablet 2021-10 00:00: 00 06-01 00:00 :00 No [id number] 10mg Take 1 tablet by mouth 3 (three) times daily as needed for Muscle Spasms. [facility] HYDROcodone -acetaminop hen 5-325 mg tablet 2021-10 00:00: 00 08-10 04:59 :00 No [id number] 1{tbl} Take 1 tablet by mouth every 6 (six) hours as needed for Pain (scale 7-10) for up to 7 days. Indication s: acute pain [facility] hydralAZINE (APRESOLINE ) injection 10 mg 2021-10 0 22:14: 34 Yes 10mg 10 mg, Slow IV Push, Q6HPRN, Starting on Fri07/31/22 at 1714, Until Discontinu ed, Routine, DBP=>100; SBP=>180 [facility] SITagliptin (JANUVIA) tablet 25 mg 2021-10 0 14:00: 00 Yes 25mg 25 mg, Oral, DAILY, First dose on Fri07/31/22 at 0900, Until Discontinu ed, Routine [facility] omeprazole (PRILOSEC) capsule 40 mg 2021-10 0 14:00: 00 Yes 40mg 40 mg, Oral, DAILY, First dose on Fri07/31/22 at 0900, Until Discontinu ed [facility] amLOD[facility] (NORVASC) tablet 5 mg 2021-10 14:00: 00 Yes 5mg 5 mg, Oral, DAILY, First dose on Fri07/31/22 at 0900, Until Discontinu ed, Routine [facility] iopamidol (ISOVUE 370-500 mL) injection 75 mL 2021-10 13:00: 00 07-31 13:00 :00 No [id number] 75mL 75 mL, Intravenou s, ONCE, 1 dose, On Fri07/31/22 at 0800, Routine [facility] Sliding Scale Insulin-Reg ular + Fsbg Testing 2021-10 12:30: 00 Yes Subcutaneo us, AC, First dose on Fri07/31/22 at 0730, Until Discontinu ed, Routine [facility] maalox:diph enhydrAMINE :lidocaine 2 % viscous 1:1:1 ([facility]) oral suspension 15 mL 2021-10 0 08:00: 00 07-31 07:37 :00 No 15mL 15 mL, Oral, ONCE, 1 dose, On Fri07/31/22 at 0300, Routine [facility] diphenhydrA MINE (BENADRYL) tablet 25 mg 2021-10 0 07:00: 08 Yes 25mg 25 mg, Oral, Q6HPRN, Starting on Fri07/31/22 at 0200, Until Discontinu ed, Routine, Itching [facility] cyclobenzap [facility]ine (FLEXERIL) tablet 10 mg 2021-10 0-05 06:51: 33 Yes 10mg 10 mg, Oral, TIDPRN, Starting on Fri07/31/22 at 0151, Until Discontinu ed, Routine, Muscle Spasms [facility] glucagon (GLUCAGEN DIAGNOSTIC KIT) injection 1 mg 2021-10 0-05 02:13: 20 Yes 1mg 1 mg, Intramuscu lar, PRN, Starting on Fri07/30/22 at 2113, Until Discontinu ed, AUDRA, Blood Glucose < or = 70 mg/dL and patient is unable to swallow or has mental changes. [facility] dextrose 50 % in water (D50W) injection 25 mL 2021-10 0-05 02:13: 20 Yes 25mL 25 mL, Slow IV Push, PRN, Starting on Fri07/30/22 at 2113, Until Discontinu ed, AUDRA, Blood Glucose < or = 70 mg/dL and patient is unable to swallow or has mental status changes. [facility] atorvastati n (LIPITOR) tablet 40 mg 2021-10 0-05 02:00: 00 Yes 40mg 40 mg, Oral, QHS, First dose on Fri07/30/22 at 2100, Until Discontinu ed, Routine [facility] HYDROcodone -acetaminop hen (NORCO) 10-325 mg tablet 1 tablet 2021-10 0-05 01:01: 01 Yes 1{tbl} 1 tablet, Oral, Q6HPRN, Starting on Fri07/30/22 at 2000, Until Discontinu ed, Routine, Pain (scale 7-10) [facility] glipiZIDE (GLUCOTROL) tablet 10 mg 2021-10 0-05 01:00: 00 Yes 10mg 10 mg, Oral, BID, First dose on Fri07/30/22 at 1999, Until Discontinu ed, Routine [facility] apixaban (ELIQUIS) tablet 5 mg 2021-10 0-05 01:00: 00 Yes 5mg 5 mg, Oral, BID, First dose on Fri07/30/22 at 1999, Until Discontinu ed, Routine
Indicatio ns: DVT/PE [facility] traMADoL (ULTRAM) tablet 50 mg 2021-10 0 21:59: 23 08-01 21:58 :23 No 50mg 50 mg, Oral, Q8HPRN, Starting on Fri07/30/22 at 1659, Until Dianna 08/01/22 at 1658, Routine, Pain (scale 4-6) [facility] acetaminoph en (TYLENOL) tablet 650 mg 2021-10 21:59: 14 Yes 650mg 650 mg, Oral, Q6HPRN, Starting on Fri07/30/22 at 1659, Until Discontinu ed, Routine, Pain (scale 1-3) [facility] acetaminoph en (TYLENOL) tablet 1,000 mg 2021-10 18:00: 00 07-30 17:56 :00 No 1000mg 1,000 mg, Oral, ONCE, 1 dose, On Fri07/30/22 at 1300, AUDRA [facility] apixaban 5 mg tablet 2021-10 17:02: 03 Yes 5mg Take 5 mg by mouth 2 (two) times daily. [facility] naproxen 500 mg tablet 2021-10 17:02: 03 Yes 500mg Take 500 mg by mouth 2 (two) times daily with meals. [facility] atorvastati n 40 mg tablet 2021-10 17:02: 03 Yes 40mg Take 40 mg by mouth at bedtime. [facility] SITagliptin 25 mg tablet 2021-10 17:02: 03 Yes 25mg Take 25 mg by mouth daily. [facility] amLODIPine 5 mg tablet 2021-10 17:02: 03 Yes 5mg Take 5 mg by mouth daily. [facility] glipiZIDE 10 mg tablet 2021-10 17:02: 03 Yes 10mg Take 10 mg by mouth 2 (two) times daily. [facility] omeprazole 40 mg capsule 2021-10 17:02: 03 Yes 40mg Take 40 mg by mouth daily. [facility] metFORMIN 1,000 mg tablet 2021-10 0-04 17:02: 03 Yes 1000mg Take 1,000 mg by mouth 2 (two) times daily with meals. [facility] Dose Unknown 2021-10 00:00: 00 Yes Toney Renner Dose Unknown 2021-10 0 00:00: 00 No 300 TAKE 1 CAPSULE TWICE DAILY. 2021-10 0 00:00: 00 No Dose Unknown 2021-10 00:00: 00 No TAKE 1 CAPSULE TWICE DAILY. 2021-10 00:00: 00 No TAKE 1 CAPSULE TWICE DAILY. 2021-10 00:00: 00 No Dose Unknown 2021-10 00:00: 00 No TAKE 1 CAPSULE TWICE DAILY. 2021-10 00:00: 00 No Dose Unknown 2021-10 00:00: 00 No TAKE 1 CAPSULE TWICE DAILY. 2021-10 00:00: 00 03-10 00:00 :00 No Toney Renner CETIRIZINE HYDROCHLORI DE 10 MG TABS 07-22 00:00: 00 Yes Toney Renner INSTILL 3 DROPS INTO AFFECTED EAR TWICE A DAY 07-18 00:00: 00 Yes Toney Renner APPLY TO SCALP EVERY OTHER DAY [...] 00 No TAKE 1 TABLET TWICE DAILY. 0 07-17 00:00: 00 No TAKE 1 TABLET BY MOUTH NIGHTLY 0 9- 00:00: 00 No TAKE 1 TABLET TWICE DAILY. 0 - 00:00: 00 03-10 00:00 :00 No Toney Renner TAKE 1 TABLET BY MOUTH NIGHTLY 0 8-16 00:00: 00 Yes 40 Toney Renner TAKE 1 TABLET TWICE DAILY. 0 8-16 00:00: 00 Yes 1000 Toney Renner TAKE 1 TABLET BY MOUTH NIGHTLY 0 8-16 00:00: 00 No 40 TAKE 1 TABLET TWICE DAILY. 0 -16 00:00: 00 No 1000 TAKE 1 TABLET BY MOUTH NIGHTLY 0 -16 00:00: 00 No 40 TAKE 1 TABLET TWICE DAILY. 0 -16 00:00: 00 No 1000 TAKE 1 TABLET BY MOUTH NIGHTLY 0 8-16 00:00: 00 No 40 TAKE 1 TABLET TWICE DAILY. 0 -16 00:00: 00 No 1000 TAKE 1 TABLET BY MOUTH NIGHTLY 0 -16 00:00: 00 No 40 TAKE 1 TABLET TWICE DAILY. 0 -16 00:00: 00 No 1000 TAKE 1 TABLET BY MOUTH NIGHTLY 0 -16 00:00: 00 No 40 TAKE 1 TABLET TWICE DAILY. 0 -16 00:00: 00 No 1000 TAKE 1 TABLET BY MOUTH NIGHTLY 0 8-15 00:00: 00 Yes 40 Toney Renner TAKE 1 TABLET BY MOUTH NIGHTLY 0 8-15 00:00: 00 No 40 TAKE 1 TABLET BY MOUTH NIGHTLY 0 8-15 00:00: 00 No 40 TAKE 1 TABLET BY MOUTH NIGHTLY 0 8-15 00:00: 00 No 40 TAKE 1 TABLET BY MOUTH NIGHTLY 0 -15 00:00: 00 No 40 TAKE 1 TABLET BY MOUTH NIGHTLY 0 8-15 00:00: 00 No 40 TAKE 1 TABLET TWICE DAILY. 0 8-14 00:00: 00 Yes 1000 Toney Renner TAKE 1 TABLET TWICE DAILY. 0 8-14 00:00: 00 No 1000 TAKE 1 TABLET TWICE DAILY. 2021-0 8-14 00:00: 00 No 1000 TAKE 1 TABLET TWICE DAILY. 2021-0 814 00:00: 00 No 1000 TAKE 1 TABLET TWICE DAILY. 2021-0 14 00:00: 00 No 1000 TAKE 1 TABLET TWICE DAILY. 2021-0 814 00:00: 00 No 1000 TAKE 1 TABLET TWICE DAILY. 2021-0 8-14 00:00: 00 No 1000 Dose Unknown 2021-0 8- 00:00: 00 Yes Toney F Zurdo Dose Unknown 2021-0 8-11 00:00: 00 Yes 10 Toney F Zurdo &lt 2022-0 8-11 00:00: 00 Yes 100 Toney F Zurdo Dose Unknown 2021-0 8-11 00:00: 00 Yes 5 Toney F Zurdo Dose Unknown 2021-0 8- 00:00: 00 Yes Toney F Zurdo Dose Unknown 2021-0 8- 00:00: 00 Yes 25 Toney F Zurdo MUPIROCIN 2 % OINT 2021-0 8-11 00:00: 00 Yes Toney F Zurdo Dose Unknown 2021-0 8-11 00:00: 00 No Dose Unknown 2021-0 8-11 00:00: 00 No 10 &lt 2022-0 8-11 00:00: 00 No 100 Dose Unknown 2-0 8-11 00:00: 00 No 5 Dose Unknown 2-0 8-11 00:00: 00 No Dose Unknown 2021-0 8-11 00:00: 00 No 25 Dose Unknown 2-0 8-11 00:00: 00 No Dose Unknown 2-0 8-11 00:00: 00 No 10 &lt 2022-0 8-11 00:00: 00 No 100 Dose Unknown 2-0 8-11 00:00: 00 No 5 Dose Unknown 2-0 8-11 00:00: 00 No Dose Unknown 2-0 8-11 00:00: 00 No 25 Dose Unknown 2-0 8-11 00:00: 00 No Dose Unknown 2-0 8-11 00:00: 00 No 10 &lt 2022-0 8-11 00:00: 00 No 100 Dose Unknown 2-0 8-11 00:00: 00 No 5 Dose Unknown [...] 00:00: 00 No 25 Dose Unknown 2022-0 8-10 00:00: 00 Yes Toney Renner Dose Unknown 2022-0 8-10 00:00: 00 Yes 25 Toney Cowan Zurdo &lt 2022-0 8-10 00:00: 00 Yes 40 Toney Renner Dose Unknown 2022-0 8-10 00:00: [...] &lt 2022-0 8-10 00:00: 00 No 40 TAKE 1 TABLET BY MOUTH TWICE A DAY 2022-0 8 00:00: 00 Yes Toney Renner &lt 2022-0 8- 00:00: 00 Yes 4 Toney Renner &lt 2022-0 8 00:00: 00 Yes 300 Toney Renner Dose Unknown 2022-0 8 00:00: 00 Yes 4 Toney Renner TAKE 1 TABLET BY MOUTH TWICE A DAY 2022-0 8 00:00: 00 No &lt 2022-0 8 00:00: 00 No 4 &lt 2022-0 8 00:00: 00 No 300 Dose Unknown 2022-0 8 00:00: 00 No 4 TAKE 1 TABLET BY MOUTH TWICE A DAY 2022-0 06-04 00:00: 00 No &lt 2022-0 8 00:00: 00 No 4 &lt 2022-0 8 00:00: 00 No 300 Dose Unknown 2022-0 8 00:00: 00 No 4 TAKE 1 TABLET BY MOUTH TWICE A DAY 2022-0 8 00:00: 00 No &lt 2022-0 8 00:00: 00 No 4 &lt 2022-0 8 00:00: 00 No 300 Dose Unknown 2022-0 8 00:00: 00 No 4 TAKE 1 TABLET BY MOUTH TWICE A DAY 2022-0 8 00:00: 00 No &lt 2022-0 8- 00:00: 00 No 4 &lt 2022-0 8- 00:00: 00 No 300 Dose Unknown 2022-0 8- 00:00: 00 No 4 TAKE 1 TABLET BY MOUTH TWICE A DAY 2-0 8- 00:00: 00 No &lt 2022-0 8- 00:00: 00 No 4 &lt 2022-0 8 00:00: 00 No 300 Dose Unknown 2021-0 8 00:00: 00 No 4 TAKE 1 TABLET BY MOUTH TWICE A DAY 2-0 8- 00:00: 00 No &lt 2022-0 8 00:00: 00 No 4 &lt 2022-0 06-04 00:00: 00 No 300 Dose Unknown 2021-0 06-04 00:00: 00 No 4 TAKE 1 TABLET BY MOUTH TWICE A DAY 2021-0 8 00:00: 00 Yes Toney Renner &lt 2022-0 8- 00:00: 00 Yes 25 Toney Renner TAKE 1 TABLET ONCE DAILY BEFORE MEALS 2021-0 8- 00:00: 00 Yes 40 Toney Renner TAKE 1 TABLET SUBLINGUALL Y DIRECTED NEEDED FOR PAIN SCALE 2-4 2021-0 8- 00:00: 00 Yes 4 Toney Camryn Renner &lt 2022-0 8- 00:00: 00 Yes 10 Toneyfranklin Renner TAKE 1 CAPSULE BY MOUTH THREE TIMES DAILY 2021-0 8- 00:00: 00 Yes 300 Toney F Zurdo &lt 2022-0 8- 00:00: 00 Yes 4 Toney F Zurdo &lt 2022-0 8- 00:00: 00 Yes 5 Toney F Zurdo &lt 2022-0 8- 00:00: 00 Yes 40 Toney F Zurdo &lt 2022-0 8- 00:00: 00 Yes 5 Toney F Zurdo &lt 2022-0 8- 00:00: 00 Yes Toney F Zurdo &lt 2022-0 8- 00:00: 00 Yes 500 Toney F Zurdo &lt 2022-0 8- 00:00: 00 Yes Toney Renner TAKE 1 TABLET BY MOUTH TWICE A DAY 2021-0 8- 00:00: 00 No &lt 2022-0 8- 00:00: 00 No 25 TAKE 1 TABLET ONCE DAILY BEFORE MEALS 2-0 8- 00:00: 00 No 40 TAKE 1 TABLET SUBLINGUALL Y DIRECTED NEEDED FOR PAIN SCALE 2-4 2022-0 8- 00:00: 00 No 4 &lt 2022-0 8-01 00:00: 00 No 10 TAKE 1 CAPSULE BY MOUTH THREE TIMES DAILY 2022-0 8-01 00:00: 00 No 300 &lt 2022-0 8-01 00:00: 00 No 4 &lt 2022-0 8-01 00:00: 00 No 5 &lt 2022-0 8- [...] 8- 00:00: 00 No 4 &lt 2022-0 8-01 00:00: 00 No 5 &lt 2022-0 8-01 00:00: 00 No 40 &lt 2022-0 8-01 00:00: 00 No 5 &lt 2022-0 8-01 00:00: 00 No &lt 2022-0 8-01 00:00: 00 No 500 &lt 2022-0 8- 00:00: 00 No Dose Unknown 0 05-24 00:00: 00 Yes 5 Toney Renner Dose Unknown 0 05-24 00:00: 00 No 5 Dose Unknown 0 05-24 00:00: 00 No 5 Dose Unknown 0 05-24 00:00: 00 No 5 Dose Unknown 0 05-24 00:00: 00 No 5 Dose Unknown 0 05-24 00:00: 00 No 5 Dose Unknown 0 05-24 00:00: 00 No 5 Dose Unknown 0 05-24 00:00: 00 No 5 TAKE 1 TABLET BY MOUTH TWICE A DAY 2021-0 05-23 00:00: 00 Yes 10 Toney Renner TAKE 1 TABLET BY MOUTH NIGHTLY 0 05-23 00:00: 00 Yes 40 Toney Renner TAKE 1 TABLET BY MOUTH TWICE A DAY 0 05-23 00:00: 00 No 10 TAKE 1 TABLET BY MOUTH NIGHTLY 0 05-23 00:00: 00 No 40 TAKE 1 TABLET BY MOUTH TWICE A DAY 2021-0 05-23 00:00: 00 No 10 TAKE 1 TABLET BY MOUTH NIGHTLY 2021-0 05-23 00:00: 00 No 40 TAKE 1 TABLET BY MOUTH TWICE A DAY 2021-0 05-23 00:00: 00 No 10 TAKE 1 TABLET BY MOUTH NIGHTLY 0 05-23 00:00: 00 No 40 TAKE 1 TABLET BY MOUTH TWICE A DAY 2021-0 05-23 00:00: 00 No 10 TAKE 1 TABLET BY MOUTH NIGHTLY 0 05-23 00:00: 00 No 40 TAKE 1 TABLET BY MOUTH TWICE A DAY 2021-0 05-23 00:00: 00 No 10 TAKE 1 TABLET BY MOUTH NIGHTLY 0 05-23 00:00: 00 No 40 TAKE 1 TABLET BY MOUTH TWICE A DAY 2021-0 05-23 00:00: 00 No 10 TAKE 1 TABLET BY MOUTH NIGHTLY 2-0 05-23 00:00: 00 No 40 TAKE 1 TABLET BY MOUTH TWICE A DAY 2-0 05-23 00:00: 00 No 10 TAKE 1 TABLET BY MOUTH NIGHTLY 2021-0 05-23 00:00: 00 No 40 Dose Unknown 2021-0 7 00:00: 00 Yes 25 Toney F Zurdo Dose Unknown 2021-0 05-16 00:00: 00 Yes Toney F Zurdo Dose Unknown 2021-0 05-16 00:00: 00 No [...] 2021-0 05-16 00:00: 00 No Dose Unknown 0 05-16 00:00: 00 No 25 Dose Unknown 2021-0 05-16 00:00: 00 No &lt 2022-0 05-14 00:00: 00 Yes 4 Toney F Zurdo Dose Unknown 2021-0 05-14 00:00: 00 Yes 25 Toney F Zurdo &lt 2022-0 05-14 00:00: 00 Yes 300 Toney F Zurdo TAKE 1 TABLET BY MOUTH TWICE A DAY 2-0 05-14 00:00: 00 Yes 5 Toney F Zurdo TAKE 1 TABLET BY MOUTH EVERY 12 HOURS FOR 7 DAYS 2-0 05-14 00:00: 00 Yes Toney F Zurdo TAKE 1 TABLET BY MOUTH TWICE A DAY 2-0 05-14 00:00: 00 Yes Toney F Zurdo &lt 2022-0 05-14 00:00: 00 Yes 4 Toney F Zurdo Dose Unknown 2-0 7 00:00: 00 Yes Toney Cowan Zurdo &lt 2022-0 7 00:00: 00 No 4 Dose Unknown 2022-0 05-14 00:00: 00 No 25 &lt 2022-0 05-14 00:00: 00 No 300 TAKE 1 TABLET BY MOUTH TWICE A DAY 2022-0 7- 00:00: 00 No 5 TAKE 1 TABLET BY MOUTH EVERY 12 HOURS FOR 7 DAYS 2022-0 7- 00:00: 00 No TAKE 1 TABLET BY MOUTH TWICE A DAY 2022-0 05-14 00:00: 00 No &lt 2022-0 7 00:00: 00 No 4 Dose Unknown 2-0 05-14 00:00: 00 No &lt 2022-0 05-14 00:00: 00 No 4 Dose Unknown 2-0 05-14 00:00: 00 No 25 &lt 2022-0 05-14 00:00: 00 No 300 TAKE 1 TABLET BY MOUTH TWICE A DAY 2-0 05-14 00:00: 00 No 5 TAKE 1 TABLET BY MOUTH EVERY 12 HOURS FOR 7 DAYS 2022-0 05-14 00:00: 00 No TAKE 1 TABLET BY MOUTH TWICE A DAY 2-0 05-14 00:00: 00 No &lt 2022-0 05-14 00:00: 00 No 4 Dose Unknown 2021-0 05-14 00:00: 00 No &lt 2022-0 05-14 00:00: 00 No 4 Dose Unknown 2021-0 05-14 00:00: 00 No 25 &lt 2022-0 05-14 00:00: 00 No 300 TAKE 1 TABLET BY MOUTH TWICE A DAY 2-0 05-14 00:00: 00 No 5 TAKE 1 TABLET BY MOUTH EVERY 12 HOURS FOR 7 DAYS 2022-0 05-14 00:00: 00 No TAKE 1 TABLET BY MOUTH TWICE A DAY 2-0 05-14 00:00: 00 No &lt 2022-0 05-14 00:00: 00 No 4 Dose Unknown 2021-0 05-14 00:00: 00 No &lt 2022-0 05-14 00:00: 00 No 4 Dose Unknown 2-0 05-14 00:00: 00 No 25 &lt 2022-0 05-14 00:00: 00 No 300 TAKE 1 TABLET BY MOUTH TWICE A DAY 2022-0 7-19 00:00: 00 No 5 TAKE 1 TABLET BY MOUTH EVERY 12 HOURS FOR 7 DAYS 2022-0 7-19 00:00: 00 No TAKE 1 TABLET BY MOUTH TWICE A DAY 2-0 7-19 00:00: 00 No &lt 2022-0 7 00:00: 00 No 4 Dose Unknown 2-0 05-14 00:00: 00 No &lt 2022-0 7 00:00: 00 No 4 Dose Unknown 2-0 05-14 00:00: 00 No 25 &lt 2022-0 7 00:00: 00 No 300 TAKE 1 TABLET BY MOUTH TWICE A DAY 2-0 05-14 00:00: 00 No 5 TAKE 1 TABLET BY MOUTH EVERY 12 HOURS FOR 7 DAYS 2-0 05-14 00:00: 00 No TAKE 1 TABLET BY MOUTH TWICE A DAY 2-0 05-14 00:00: 00 No &lt 2022-0 7 00:00: 00 No 4 Dose Unknown 2021-0 05-14 00:00: 00 No &lt 2022-0 05-14 00:00: [...] DAY 2021-0 05-14 00:00: 00 No &lt 2022-0 05-14 00:00: 00 No 4 Dose Unknown 2021-0 05-14 00:00: 00 No &lt 2022-0 7 00:00: 00 No 4 Dose Unknown 2021-0 05-14 00:00: 00 No 25 &lt 2022-0 05-14 00:00: 00 No 300 TAKE 1 TABLET BY MOUTH TWICE A DAY 2-0 05-14 00:00: 00 No 5 TAKE 1 TABLET BY MOUTH EVERY 12 HOURS FOR 7 DAYS 2022-0 05-14 00:00: 00 No TAKE 1 TABLET BY MOUTH TWICE A DAY 2-0 7-19 00:00: 00 No &lt 2022-0 7-19 00:00: 00 No 4 Dose Unknown 2022-0 7-19 00:00: 00 No &lt 2022-0 7-19 00:00: 00 No 4 Dose Unknown 2022-0 7-19 00:00: 00 No 25 &lt 2022-0 7-19 00:00: 00 No 300 TAKE 1 TABLET BY MOUTH TWICE A DAY 2022-0 7-19 00:00: 00 No 5 TAKE 1 TABLET BY MOUTH EVERY 12 HOURS FOR 7 DAYS 2022-0 7-19 00:00: 00 No TAKE 1 TABLET BY MOUTH TWICE A DAY 2022-0 7-19 00:00: 00 No &lt 2022-0 7-19 00:00: 00 No 4 Dose Unknown 2-0 7-19 00:00: 00 No &lt 2022-0 7-15 00:00: 00 Yes 5 Toney Renner &lt 2022-0 7-15 00:00: 00 No 5 &lt 2022-0 7-15 00:00: 00 No 5 &lt 2022-0 7-15 00:00: 00 No 5 &lt 2022-0 7-15 00:00: 00 No 5 &lt 2022-0 7-15 00:00: 00 No 5 &lt 2022-0 7-15 00:00: 00 No 5 &lt 2022-0 7-15 00:00: 00 No 5 &lt 2022-0 7-15 00:00: 00 No 5 TAKE 1 TABLET BY MOUTH EVERY DAY 2022-0 7-14 00:00: 00 Yes 100 Toney Renner TAKE 1 TABLET BY MOUTH EVERY DAY 2022-0 7-14 00:00: 00 No 100 TAKE 1 TABLET BY MOUTH EVERY DAY 2022-0 7-14 00:00: 00 No 100 TAKE 1 TABLET BY MOUTH EVERY DAY 2022-0 7-14 00:00: 00 No 100 TAKE 1 TABLET BY MOUTH EVERY DAY 2-0 7-14 00:00: 00 No 100 TAKE 1 TABLET BY MOUTH EVERY DAY 2022-0 7-14 00:00: 00 No 100 TAKE 1 TABLET BY MOUTH EVERY DAY 2-0 7-14 00:00: 00 No 100 TAKE 1 TABLET BY MOUTH EVERY DAY 2-0 7-14 00:00: 00 No 100 TAKE 1 TABLET BY MOUTH EVERY DAY 0 05-09 00:00: 00 No 100 TAKE 1 TABLET BY MOUTH NIGHTLY 05-03 00:00: 00 Yes 40 Toney Renner TAKE 1 CAPSULE BY MOUTH TWICE A DAY 05-03 00:00: 00 Yes Toney Renner TAKE 1 TABLET BY MOUTH NIGHTLY 0 05-03 00:00: 00 No 40 TAKE 1 TABLET BY MOUTH NIGHTLY 05-03 00:00: 00 No 40 TAKE 1 TABLET BY MOUTH NIGHTLY 05-03 00:00: 00 No 40 TAKE 1 TABLET BY MOUTH NIGHTLY 05-03 00:00: 00 No 40 TAKE 1 TABLET BY MOUTH NIGHTLY 05-03 00:00: 00 No 40 TAKE 1 TABLET BY MOUTH NIGHTLY 05-03 00:00: 00 No 40 TAKE 1 TABLET BY MOUTH NIGHTLY 05-03 00:00: 00 No 40 TAKE 1 TABLET BY MOUTH NIGHTLY 05-03 00:00: 00 No 40 TAKE 1 TABLET BY MOUTH EVERY DAY 05-02 00:00: 00 Yes 25 Toney Renner TAKE 1 TABLET BY MOUTH EVERY 12 HOURS FOR 7 DAYS 05-02 00:00: 00 Yes Toney Renner TAKE 2 TABLETS BY MOUTH EVERY 6 HOURS NEEDED 05-02 00:00: 00 Yes Toney Renner Dose Unknown 05-02 00:00: 00 Yes Toney Renner &lt 05-02 00:00: 00 Yes 40 Toney Renner TAKE 1 CAPSULE BY MOUTH THREE TIMES DAILY 05-02 00:00: 00 Yes 300 Toney Renner &lt 05-02 00:00: 00 Yes 10 Toney Renner Dose Unknown 05-02 00:00: 00 Yes 5 Toney Renner TAKE 1 TABLET SUBLINGUALL Y DIRECTED NEEDED FOR PAIN SCALE 2-4 05-02 00:00: 00 Yes 4 Toney Renner [...] SCALE 2-4 05-02 00:00: 00 No 4 Dose Unknown [...] 2-4 0 04-26 00:00: 00 Yes Toney Renner &lt 2022-0 7- 00:00: 00 Yes Toney Cowan Zurdo &lt 2022-0 7- 00:00: 00 Yes Toney Renner &lt 2022-0 7- 00:00: 00 Yes Toney Renner TAKE 1 [...] 1 TABLET BY MOUTH EVERY DAY 2-0 7- 00:00: 00 No &lt 2022-0 7- 00:00: 00 No TAKE 1 TABLET SUBLINGUALL Y DIRECTED NEEDED FOR PAIN SCALE 2-4 2021-0 7- 00:00: 00 No &lt 2022-0 7- 00:00: 00 No &lt 2022-0 7- 00:00: 00 No &lt 2022-0 7- 00:00: 00 No TAKE 1 TABLET BY MOUTH EVERY DAY 2-0 7- 00:00: 00 No &lt 2022-0 7- 00:00: 00 No TAKE 1 TABLET SUBLINGUALL Y DIRECTED NEEDED FOR PAIN SCALE 2-4 2021-0 7- 00:00: 00 No &lt 2022-0 7- 00:00: 00 No &lt 2022-0 7- 00:00: 00 No &lt 2022-0 7- 00:00: 00 No TAKE 1 TABLET BY MOUTH TWICE A DAY 2-0 6- 00:00: 00 Yes Toney Renner TAKE 1 TABLET BY MOUTH TWICE A DAY 2021-0 6- 00:00: 00 No TAKE 1 TABLET BY MOUTH TWICE A DAY 2021-0 04-17 00:00: 00 No TAKE 1 TABLET [...] 04-17 00:00: 00 No TAKE 1 TABLET TWICE A DAY 30 MINUTES BEFORE MEALS 0 04-16 00:00: 00 Yes Toney Renner TAKE 2 TABLETS BY MOUTH EVERY 6 HOURS NEEDED 0 04-16 00:00: 00 Yes Toney Renner Dose Unknown 0 04-16 00:00: 00 Yes 10 Toney Renner glipizide 10 mg tablet 0 [...] HOURS NEEDED 2021-0 04-16 00:00: 00 No TAKE 1 TABLET TWICE A DAY 30 MINUTES BEFORE MEALS 2021-0 04-16 00:00: 00 No TAKE 2 TABLETS BY MOUTH EVERY 6 HOURS NEEDED 2021-0 04-16 00:00: 00 No glipizide 10 mg tablet 0 04-16 00:00: 00 No 1mg TAKE 2 TABLETS BY MOUTH EVERY 6 HOURS NEEDED 2021-0 04-16 00:00: 00 No TAKE 1 TABLET DAILY. 01-21 00:00: 00 Yes Toney Renner glipizide 10 mg tablet 01-21 00:00: 00 Yes 1mg Toney Renner metformin 1,000 mg tablet 01-21 00:00: 00 Yes 1mg Toney Renner Dose Unknown 01-21 00:00: 00 Yes Toney Renner Dose Unknown 01-21 00:00: 00 Yes Toney Renner Dose Unknown 01-21 00:00: 00 Yes Toney Renner Dose Unknown 01-21 00:00: 00 Yes Toney Camryn Zurdo Dose Unknown 01-21 00:00: 00 Yes Toney Cowan Zurdo Dose Unknown 01-21 00:00: 00 Yes Toney Camryn Zurdo Dose Unknown 01-21 00:00: 00 Yes Toney Renner Dose Unknown 01-21 00:00: 00 Yes Toney Renner Dose Unknown 01-21 00:00: 00 Yes 10 Toney Renner amlodipine [...] Unknown 01-21 00:00: 00 No Dose Unknown 0 [...] Unknown 01-21 00:00: 00 No Dose Unknown 0 01-21 00:00: 00 No Dose Unknown 0 01-21 00:00: 00 No Dose Unknown 01-21 00:00: 00 No Dose Unknown 01-21 00:00: 00 No Dose Unknown 0 [...] Unknown 01-21 00:00: 00 No Dose Unknown 0 01-21 00:00: 00 No Dose Unknown 01-21 00:00: 00 No Dose Unknown 0 [...] Unknown 01-21 00:00: 00 No Dose Unknown 0 01-21 00:00: 00 No Dose Unknown 0 01-21 00:00: 00 No Dose Unknown 01-21 00:00: 00 No glipiZIDE 10 mg tablet 10-29 15:43: 53 Yes 10mg Take 10 mg by mouth 2 (two) times daily. [facility] omeprazole 40 mg capsule 10-29 15:43: 53 Yes 40mg Take 40 mg by mouth daily. [facility] metFORMIN 1,000 mg tablet 10-29 15:43: 53 Yes 1000mg Take 1,000 mg by mouth 2 (two) times daily with meals. [facility] No known medications 10-29 15:43: 53 No [facility] atorvastati n 40 mg tablet 10-29 15:40: 58 Yes 40mg Take 40 mg by mouth at bedtime. [facility] SITagliptin 25 mg tablet 10-29 15:40: 58 Yes 25mg Take 25 mg by mouth daily. [facility] amLODIPine 5 mg tablet 10-29 15:40: 58 Yes 5mg Take 5 mg by mouth daily. [facility] apixaban 5 mg tablet 10-29 15:39: 13 Yes 5mg Take 5 mg by mouth 2 (two) times daily. [facility] naproxen 500 mg tablet 10-29 15:39: 13 Yes 500mg Take 500 mg by mouth 2 (two) times daily with meals. [facility] TAKE 1 TABLET DAILY. 2020-10 00:00: 00 Yes Toney F Zurdo Dose Unknown 2020-10 00:00: 00 Yes Toney F Zurdo Dose Unknown 2020-10 00:00: 00 Yes Toney F Zurdo Dose Unknown 2020-10 00:00: 00 Yes Toney F Zurdo Dose Unknown 2020-10 00:00: 00 Yes Toney Renner naproxen 500 mg tablet 2020-10 00:00: 00 Yes 1mg Toney F Zurdo Dose Unknown 2020-10 00:00: 00 Yes Toney F Zurdo Dose Unknown 2020-10 00:00: 00 Yes Toney Camryn Renner Januvia 25 mg tablet 2020-1 2-13 00:00: 00 No 1mg Dose Unknown 2020-1 2-13 00:00: 00 No Dose Unknown 2020-1 2-13 00:00: 00 No Dose Unknown 2020-1 2-13 00:00: 00 No Januvia 25 mg tablet 2020-1 2-13 00:00: 00 No [...] 00 No Januvia 25 mg tablet 2020-1 2-13 00:00: 00 No 1mg Dose Unknown 2020- 2-13 00:00: 00 No Dose Unknown 2020- 2-13 00:00: 00 No Dose Unknown 2020- 2-13 00:00: 00 No Dose Unknown 2020- 2-13 00:00: 00 No naproxen 500 mg tablet 2020-1 2-13 00:00: 00 No 1mg Dose Unknown 2020-1 2-13 00:00: 00 No Dose Unknown 2020-1 2-13 00:00: 00 No Januvia 25 mg tablet 2020-1 2-13 00:00: 00 No 1mg Dose Unknown 2020-1 2-13 00:00: 00 No Dose Unknown 2020-1 2-13 00:00: 00 No Dose Unknown 2020-1 2-13 00:00: 00 No Dose Unknown 2020- 2-13 00:00: 00 No naproxen 500 mg tablet 2020-1 2-13 00:00: 00 No 1mg Dose Unknown 2020- 2-13 00:00: 00 No Dose Unknown 2020- 2-13 00:00: 00 No TAKE 1 TABLET DAILY. 2020- 2-13 00:00: 00 No Dose Unknown 2020- 2-13 00:00: 00 No Dose Unknown 2020-10 2-13 00:00: 00 No Dose Unknown 2020- 2- 00:00: 00 No Dose Unknown 2020- 2- 00:00: 00 No naproxen 500 mg tablet 2020- 2- 00:00: 00 No 1mg Dose Unknown 2020- 2- 00:00: 00 No Dose Unknown 2020-10 2-13 00:00: 00 No TAKE 1 TABLET DAILY. 2020-10 2- 00:00: 00 No Dose Unknown 2020-10 2- 00:00: 00 No Dose Unknown 2020-10 2- 00:00: 00 No Dose Unknown 2020-10 2- 00:00: 00 No Dose Unknown 2020- 2- 00:00: 00 No naproxen 500 mg tablet 2020- 2- 00:00: 00 No 1mg Dose Unknown 2020- 2- 00:00: 00 No Dose Unknown 2020- 2-13 00:00: 00 No Januvia 25 mg tablet 2020-1 2- 00:00: 00 No 1mg Dose Unknown 2020- 2- 00:00: 00 No [...] 00:00: 00 No naproxen 500 mg tablet 1 213 00:00: 00 No 1mg Dose Unknown 1 12-09 00:00: 00 No Dose Unknown 1 12-09 00:00: 00 No Dose Unknown 0 07-09 00:00: 00 Yes Toney Renner Dose Unknown 0 07-09 00:00: 00 Yes Toney Renner Dose Unknown 0 07-09 00:00: 00 Yes Toney Renner prednisone 20 mg tablet 0 07-09 00:00: 00 No 1mg benzonatate 200 mg capsule 0 07-09 00:00: 00 No 1mg Bromfed DM 2 mg-30 mg-10 mg/5 mL oral syrup 2020-0 07-09 00:00: 00 No 5mg/5 mL prednisone 20 mg tablet 0 07-09 00:00: 00 No 1mg benzonatate 200 mg capsule 2020-0 07-09 00:00: 00 No 1mg Bromfed DM 2 mg-30 mg-10 mg/5 mL oral syrup 2020-0 07-09 00:00: 00 No 5mg/5 mL prednisone 20 mg tablet 0 07-09 00:00: 00 No 1mg benzonatate 200 mg capsule 0 07-09 00:00: 00 No 1mg Bromfed DM 2 mg-30 mg-10 mg/5 mL oral syrup 2020-0 07-09 00:00: 00 No 5mg/5 mL prednisone [...] 00 No prednisone 20 mg tablet 0 - 00:00: 00 No 1mg benzonatate 200 mg capsule 0 9- 00:00: 00 No 1mg Bromfed DM 2 mg-30 mg-10 mg/5 mL oral syrup 0 - 00:00: 00 No 5mg/5 mL prednisone 20 mg tablet 0 - 00:00: 00 No 1mg benzonatate 200 mg capsule 0 - 00:00: 00 No 1mg Bromfed DM 2 mg-30 mg-10 mg/5 mL oral syrup 0 07-09 00:00: 00 No 5mg/5 mL Januvia 25 mg tablet 0 9-06 00:00: 00 Yes 1mg Toney Cowan Zurdo Januvia 25 mg tablet 0 9- 00:00: 00 No 1mg Januvia 25 mg tablet 0 9- 00:00: 00 No 1mg Januvia 25 mg tablet 0 9- 00:00: 00 No 1mg Januvia 25 mg tablet 0 - 00:00: 00 No 1mg Januvia 25 mg tablet 0 9-06 00:00: 00 No 1mg Januvia 25 mg tablet 0 9- 00:00: 00 No 1mg Januvia 25 mg tablet 0 9-06 00:00: 00 No 1mg Januvia 25 mg tablet 0 9-06 00:00: 00 No 1mg atorvastati n 40 mg tablet 0 8-18 00:00: 00 Yes 1mg Toney F Zurdo atorvastati n 40 mg tablet 0 8-18 00:00: 00 No 1mg atorvastati n 40 mg tablet 0 8-18 00:00: 00 No 1mg atorvastati n 40 mg tablet 0 8-18 00:00: 00 No 1mg atorvastati n 40 mg tablet 0 8-18 00:00: 00 No 1mg atorvastati n 40 mg tablet 2020-0 8-18 00:00: 00 No 1mg atorvastati n 40 mg tablet 0 8-18 00:00: 00 No 1mg atorvastati n 40 mg tablet 06-13 00:00: 00 No 1mg atorvastati n 40 mg tablet 06-13 00:00: 00 No 1mg amlodipine 5 mg tablet 06-05 00:00: 00 Yes 1mg Toney Renner metformin 1,000 mg tablet 06-05 00:00: 00 Yes 1mg Toney Renner glipizide 10 mg tablet 06-05 00:00: 00 Yes 1mg Toney Renner Dose Unknown 06-05 00:00: 00 Yes Toney Renner omeprazole 40 mg capsule,del ayed release 06-05 00:00: 00 Yes 1mg Toney Renner Dose Unknown 06-05 00:00: 00 Yes Toney Renner amlodipine 5 mg tablet 06-05 00:00: 00 [...] 06-05 00:00: 00 No 1mg Dose Unknown 05-23 00:00: 00 Yes Toney Renner clindamycin HCl 300 mg capsule 05-23 00:00: 00 Yes 1mg Toney Renner mupirocin [...] 05-23 00:00: 00 No 1mg Dose Unknown 02-06 00:00: 00 Yes Toney Renner TAKE 1 TABLET TWICE A DAY 30 MINUTES BEFORE MEALS 02-06 00:00: 00 Yes Toney Renner metformin 1,000 mg tablet 02-06 00:00: 00 Yes 1mg Toney Renner Dose Unknown 02-06 00:00: 00 Yes Toney Renner Silvadene 1 % topical cream 02-06 00:00: [...] mg tablet 02-06 00:00: 00 No 1mg metformin 1,000 mg tablet 11-03 00:00: 00 Yes 1mg Toney Renner glipizide ER 5 mg tablet, extended release 24 hr - 00:00: 00 Yes 1mg Toney Renner atorvastati n 40 mg tablet 11-03 00:00: 00 Yes 1mg Toney Renner Dose Unknown 11-03 00:00: 00 Yes Toney Renner Dose Unknown 11-03 00:00: 00 Yes Toney Renner amlodipine 5 [...] omeprazole 40 mg capsule,del ayed release 0 11-03 00:00: 00 No 1mg atorvastati n 40 mg tablet 2019-10 00:00: 00 Yes 1mg Toney Renner Dose Unknown 2019-10 00:00: 00 Yes Toney Renner Eliquis 5 [...] 2019-10 00:00: 00 Yes 1mg Toney Renner amlodipine 5 mg tablet 2019-10 [...] mg tablet 2019-10 00:00: 00 No 1mg midodrine 5 mg tablet 2019-10 00:00: 00 Yes 1mg Toney Renner glipizide ER 5 mg tablet, extended release 24 hr 2019-10 0 00:00: 00 Yes 1mg Toney Renner metformin 1,000 mg tablet 2019-10 00:00: 00 Yes 1mg Toney Renner Eliquis [...] 1mg atorvastati n 40 mg tablet 2019-10 0- 00:00: 00 No 1mg omeprazole 40 mg capsule,del ayed release 2019-10 0- 00:00: 00 No 1mg midodrine 5 mg tablet 2019-10 0 00:00: 00 No 1mg glipizide ER 5 mg tablet, extended release 24 hr 2019-10 0- 00:00: 00 No 1mg metformin 1,000 mg [...] tablet 2019-10 0 00:00: 00 No 1mg ProAir HFA 90 [...] 06-08 00:00: 00 Yes 2mg Toney Renner ProAir HFA 90 mcg/actuati on [...] No 1mg Vitamin C 500 mg tablet 2020-0 8-13 00:00: 00 No 1mg benzonatate 100 mg capsule 2019-0 8-13 00:00: 00 No 2mg amoxicillin 500 mg tablet 0 7-20 00:00: 00 Yes 1mg Toney Renner amoxicillin 500 mg tablet 0 7-20 00:00: 00 No 1mg amoxicillin 500 mg tablet 0 7- 00:00: 00 No 1mg amoxicillin 500 mg tablet 0 7- 00:00: 00 No 1mg amoxicillin 500 mg tablet 0 7- 00:00: 00 No 1mg amoxicillin 500 mg tablet 0 7 00:00: 00 No 1mg amoxicillin 500 mg tablet 0 7- 00:00: 00 No 1mg amoxicillin 500 mg tablet 0 - 00:00: 00 No 1mg amoxicillin 500 mg tablet 0 05-15 00:00: 00 No 1mg dicyclomine 20 mg tablet 0 5-05 00:00: 00 Yes 1mg Toney Renner dicyclomine 20 mg tablet 0 5-05 00:00: 00 No 1mg dicyclomine 20 mg tablet 0 5-05 00:00: 00 No 1mg dicyclomine 20 mg tablet 0 5-05 00:00: 00 No 1mg dicyclomine 20 mg tablet 0 5-05 00:00: 00 No 1mg dicyclomine 20 mg tablet 0 5-05 00:00: 00 No 1mg dicyclomine 20 mg tablet 0 5-05 00:00: 00 No 1mg dicyclomine 20 mg tablet 0 5-05 00:00: 00 No 1mg dicyclomine 20 mg tablet 0 5-05 00:00: 00 No 1mg Aspirin Low Dose 81 mg tablet,merna yed release -04 00:00: 00 Yes 1mg Toney Renner enalapril maleate 20 mg tablet 0 5-04 00:00: 00 Yes 1mg Toney Renner amlodipine 5 mg tablet 0 5-04 00:00: 00 Yes 1mg Toney Renner glipizide ER 5 mg tablet, extended release 24 hr 0 5-04 00:00: 00 Yes 1mg Toney Renner metformin 1,000 mg tablet 02-27 00:00: 00 Yes 1mg Toney Renner atorvastati n 40 mg tablet 02-27 00:00: 00 Yes 1mg Toney Renner omeprazole 40 mg capsule,del ayed release 02-27 00:00: 00 Yes 1mg Toney Renner Aspirin [...] ayed release 02-27 00:00: 00 No 1mg naproxen 500 mg tablet 02-02 00:00: 00 Yes 1mg Toney Renner naproxen [...] mg tablet 02-02 00:00: 00 No 1mg polyethylen e glycol [...] No 1gram Aspirin Low Dose 81 mg tablet,menra yed release 2018-10 00:00: 00 No 1mg [...] mg capsule 2018-10 00:00: 00 No 1mg mupirocin 2 % topical ointment 2018-10 00:00: 00 Yes 1% Toney Renner mupirocin 2 % topical ointment [...] topical ointment 2018-10 00:00: 00 No 1% glipizide ER 5 mg tablet, extended release [...] 24 hr 2018-10 00:00: 00 No 1mg polyethylen e [...] mg capsule 2018-10 00:00: 00 No 1mg citalopram 20 mg tablet 01-29 00:00: 00 Yes 1mg Toney Renner citalopram [...] mg tablet 01-29 00:00: 00 No 1mg polyethylen e glycol [...] 12-03 00:00: 00 Yes 1mg Toney Renner polyethylen [...] mg capsule 12-03 00:00: 00 No 1mg Zithromax Z-Alok 250 mg tablet 2017-10 00:00: 00 Yes mg Toney Renner Zithromax Z-Alok 250 mg tablet [...] mg tablet 2017-10 00:00: 00 No mg polyethylen e glycol 3350 17 gram oral powder packet 2017-10 00:00: 00 Yes 1gram Toney Cowan Zurdo glipizide ER 5 mg tablet, extended release [...] 2017-10 00:00: 00 Yes 1mg Toney Renner polyethylen [...] mg capsule 2017-10 00:00: 00 No 1mg tizanidine 2 mg tablet 05-13 00:00: 00 Yes 1mg Toney Cowan Zurdo tizanidine 2 mg tablet 05-13 00:00: 00 [...] mg tablet 05-13 00:00: 00 No 1mg glipizide ER 5 mg tablet, extended release 24 hr 05-05 00:00: 00 Yes 1mg Toney Cowan Zurdo glipizide ER 5 mg tablet, extended release [...] 24 hr 05-05 00:00: 00 No 1mg polyethylen e glycol [...] 04-27 00:00: 00 Yes 1mg Toney Renner polyethylen [...] mg capsule 04-27 00:00: 00 No 1mg enalapril maleate 20 mg tablet 04-06 00:00: 00 Yes 1mg Toney Renner metformin 1,000 mg tablet 04-06 00:00: 00 Yes 1mg Toney Renner gabapentin 100 mg capsule 04-06 00:00: 00 Yes 1mg Toney Renner enalapril [...] mg capsule 04-06 00:00: 00 No 1mg Flagyl 500 mg tablet 01-16 00:00: 00 Yes 1mg Toney Renner Flagyl [...] mg tablet 01-16 00:00: 00 No 1mg polyethylen e glycol 3350 17 gram oral powder packet 12-29 00:00: 00 Yes 1gram Toney Renner metformin 1,000 mg tablet 12-29 00:00: 00 Yes 1mg Toney Renner polyethylen [...] mg tablet 12-29 00:00: 00 No 1mg clotrimazol e 1 [...] 11-26 00:00: 00 Yes 1mg Toney Renner clotrimazol [...] mg capsule 11-26 00:00: 00 No 1mg triamcinolo ne acetonide [...] mg tablet 11-14 00:00: 00 No 1mg Immunizations Ordered Immunization Name Filled Immunization Name Date Status Comments Source TDAP 2022-01-21 00:00:00 Completed [facility] influenza, seasonal vaccine, quadrivalent, adjuvanted, .5mL dose, preservative-free influenza, seasonal vaccine, quadrivalent, adjuvanted, .5mL dose, preservative-free 2022-01-21 00:00:00 Completed Toney Renner TDAP 2022-01-21 00:00:00 Completed [facility] pneumococcal conjugate P pneumococcal conjugate P 2022-01-21 00:00:00 Completed Toney Renner TDAP 2022-01-21 00:00:00 Completed [facility] Tdap Tdap 2022-01-21 00:00:00 Completed Toney Renner TDAP 2022-01-21 00:00:00 Completed [facility] TDAP 2022-01-21 00:00:00 Completed [facility] influenza, seasonal vaccine, quadrivalent, adjuvanted, .5mL dose, preservative-free influenza, seasonal vaccine, quadrivalent, adjuvanted, .5mL dose, preservative-free 2022-01-21 00:00:00 Completed Toney Renner TDAP 2022-01-21 00:00:00 Completed [facility] pneumococcal conjugate P pneumococcal conjugate P 2022-01-21 00:00:00 Completed Toney Renner Tdap Tdap 2022-01-21 00:00:00 Completed Toney Renner influenza, seasonal vaccine, quadrivalent, adjuvanted, .5mL dose, [...] 2022-01-21 00:00:00 Completed Tdap 2022-01-21 00:00:00 Completed SARS-COV-2 COVID-19 VACCINE - (MODERNA) 2021-10-24 00:00:00 Completed [facility] SARS-COV-2 COVID-19 VACCINE - (MODERNA) 2021-10-24 00:00:00 Completed [facility] Moderna COVID-19 Vaccine Moderna COVID-19 Vaccine 2021-10-24 00:00:00 Completed [facility] SARS-COV-2 COVID-19 VACCINE - (MODERNA) 2021-10-24 00:00:00 Completed [facility] SARS-COV-2 COVID-19 VACCINE - (MODERNA) 2021-10-24 00:00:00 Completed [facility] Moderna COVID-19 Vaccine Moderna COVID-19 Vaccine 2021-10-24 00:00:00 Completed [facility] SARS-COV-2 COVID-19 VACCINE - (MODERNA) 2021-10-24 00:00:00 Completed [facility] SARS-COV-2 COVID-19 VACCINE - (MODERNA) 2021-10-24 00:00:00 Completed [facility] Moderna COVID-19 Vaccine 2021-10-24 00:00:00 Completed Moderna COVID-19 Vaccine 2021-10-24 00:00:00 Completed Moderna COVID-19 Vaccine 2021-10-24 00:00:00 Completed Moderna COVID-19 Vaccine 2021-10-24 00:00:00 Completed Moderna COVID-19 Vaccine 2021-10-24 00:00:00 Completed Moderna COVID-19 Vaccine 2021-10-24 00:00:00 Completed Moderna COVID-19 Vaccine 2021-10-24 00:00:00 Completed Moderna COVID-19 Vaccine 2021-10-24 00:00:00 Completed Moderna COVID-19 Vaccine 2021-10-24 00:00:00 Completed Hep A-Hep B Hep A-Hep B 2021-05-12 00:00:00 Completed [facility] Hep A-Hep B Hep A-Hep B 2021-05-12 00:00:00 Completed [facility] Hepa/Hepb Combo 2021-05-12 00:00:00 Completed [facility] Hepa/Hepb Combo 2021-05-12 00:00:00 Completed [facility] Hepa/Hepb Combo 2021-05-12 00:00:00 Completed [facility] Hepa/Hepb Combo 2021-05-12 00:00:00 Completed [facility] Hepa/Hepb Combo 2021-05-12 00:00:00 Completed [facility] Hepa/Hepb Combo 2021-05-12 00:00:00 Completed [facility] SARS-COV-2 COVID-19 VACCINE - (MODERNA) 2021-02-06 00:00:00 Completed [facility] SARS-COV-2 COVID-19 VACCINE - (MODERNA) 2021-02-06 00:00:00 Completed [facility] SARS-COV-2 COVID-19 VACCINE - (MODERNA) 2021-02-06 00:00:00 Completed [facility] SARS-COV-2 COVID-19 VACCINE - (MODERNA) 2021-02-06 00:00:00 Completed [facility] SARS-COV-2 COVID-19 VACCINE - (MODERNA) 2021-02-06 00:00:00 Completed [facility] SARS-COV-2 COVID-19 VACCINE - (MODERNA) 2021-02-06 00:00:00 Completed [facility] Moderna COVID-19 Vaccine Moderna COVID-19 Vaccine 2020-12-29 00:00:00 Completed Toney Renner Moderna COVID-19 Vaccine Moderna COVID-19 Vaccine 2020-12-29 00:00:00 Completed Toney Renner SARS-COV-2 COVID-19 VACCINE - (MODERNA) 2020-12-29 00:00:00 Completed [facility] SARS-COV-2 COVID-19 VACCINE - (MODERNA) 2020-12-29 00:00:00 Completed [facility] SARS-COV-2 COVID-19 VACCINE - (MODERNA) 2020-12-29 00:00:00 Completed [facility] SARS-COV-2 COVID-19 VACCINE - (MODERNA) 2020-12-29 00:00:00 Completed [facility] SARS-COV-2 COVID-19 VACCINE - (MODERNA) 2020-12-29 00:00:00 Completed [facility] SARS-COV-2 COVID-19 VACCINE - (MODERNA) 2020-12-29 00:00:00 Completed [facility] Moderna COVID-19 Vaccine 2020-12-29 00:00:00 Completed Moderna COVID-19 Vaccine 2020-12-29 00:00:00 Completed Moderna COVID-19 Vaccine 2020-12-29 00:00:00 Completed Moderna COVID-19 Vaccine 2020-12-29 00:00:00 Completed Moderna COVID-19 Vaccine 2020-12-29 00:00:00 Completed Moderna COVID-19 Vaccine 2020-12-29 00:00:00 Completed Moderna COVID-19 Vaccine 2020-12-29 00:00:00 Completed Moderna COVID-19 Vaccine 2020-12-29 00:00:00 Completed Moderna COVID-19 Vaccine 2020-12-29 00:00:00 Completed TDAP Unknown Completed [facility] Hepa/Hepb Combo Unknown Completed [facility] SARS-COV-2 COVID-19 VACCINE - (MODERNA) Unknown Completed [facility] TDAP Unknown Completed [facility] Hepa/Hepb Combo Unknown Completed [facility] SARS-COV-2 COVID-19 VACCINE - (MODERNA) Unknown Completed [facility] TDAP Unknown Completed [facility] Hepa/Hepb Combo Unknown Completed [facility] SARS-COV-2 COVID-19 VACCINE - (MODERNA) Unknown Completed [facility] TDAP Unknown Completed [facility] Hepa/Hepb Combo Unknown Completed [facility] SARS-COV-2 COVID-19 VACCINE - (MODERNA) Unknown Completed [facility] TDAP Unknown Completed [facility] Hepa/Hepb Combo Unknown Completed [facility] SARS-COV-2 COVID-19 VACCINE - (MODERNA) Unknown Completed [facility] Vital Signs Vital Name Observation Time Observation Value Comments S ource Systolic blood pressure 2024-01-02 19:07:00 137 mm[Hg] [facility] Diastolic blood pressure 2024-01-02 19:07:00 84 mm[Hg] [facility] Heart rate 2024-01-02 19:07:00 73 /min [facility] Respiratory rate 2024-01-02 19:07:00 18 /min [facility] Body weight 2024-01-02 19:07:00 75.751 kg [facility] BMI 2024-01-02 19:07:00 32.61 kg/m2 [facility] Oxygen saturation in Arterial blood by Pulse oximetry 2024-01-02 19:07:00 96 /min [facility] Systolic blood pressure 2023-09-05 13:24:00 157 mm[Hg] [facility] Diastolic blood pressure 2023-09-05 13:24:00 78 mm[Hg] [facility] Heart rate 2023-09-05 13:24:00 49 /min [facility] Body temperature 2023-09-05 13:24:00 36.11 Zully [facility] Respiratory rate 2023-09-05 13:24:00 17 /min [facility] Oxygen saturation in Arterial blood by Pulse oximetry 2023-09-05 13:24:00 96 /min [facility] Body weight 2023-09-05 09:34:00 75.479 kg [facility] BMI 2023-09-05 09:34:00 32.50 kg/m2 [facility] Body height 2023-09-02 02:18:00 152.4 cm [facility] Systolic blood pressure 2023-06-22 06:30:00 104 mm[Hg] [facility] Diastolic blood pressure 2023-06-22 06:30:00 68 mm[Hg] [facility] Heart rate 2023-06-22 06:30:00 57 /min [facility] Oxygen saturation in Arterial blood by Pulse oximetry 2023-06-22 06:30:00 93 /min [facility] Body temperature 2023-06-22 03:05:00 37.22 Zully [facility] Respiratory rate 2023-06-22 03:05:00 14 /min [facility] Body weight 2023-06-22 03:05:00 78.926 kg [facility] BMI 2023-06-22 03:05:00 33.98 kg/m2 [facility] Systolic blood pressure 2023-06-16 18:30:00 140 mm[Hg] [facility] Diastolic blood pressure 2023-06-16 18:30:00 73 mm[Hg] [facility] Heart rate 2023-06-16 18:30:00 62 /min [facility] Body temperature 2023-06-16 18:30:00 36.61 Zully [facility] Respiratory rate 2023-06-16 18:30:00 16 /min [facility] Body height 2023-06-16 18:30:00 152.4 cm [facility] Body weight 2023-06-16 18:30:00 79.017 kg [facility] BMI 2023-06-16 18:30:00 34.02 kg/m2 [facility] Oxygen saturation in Arterial blood by Pulse oximetry 2023-06-16 18:30:00 96 /min [facility] Systolic blood pressure 2023-06-02 02:19:00 169 mm[Hg] [facility] Diastolic blood pressure 2023-06-02 02:19:00 89 mm[Hg] [facility] Heart rate 2023-06-02 02:19:00 68 /min [facility] Body temperature 2023-06-02 02:19:00 37.06 Zully [facility] Respiratory rate 2023-06-02 02:19:00 20 /min [facility] Oxygen saturation in Arterial blood by Pulse oximetry 2023-06-02 02:19:00 97 /min [facility] Body weight 2023-06-01 23:21:00 78.926 kg [facility] BMI 2023-06-01 23:21:00 33.98 kg/m2 [facility] Systolic blood pressure 2023-03-12 05:00:00 159 mm[Hg] [facility] Diastolic blood pressure 2023-03-12 05:00:00 81 mm[Hg] [facility] Heart rate 2023-03-12 05:00:00 56 /min [facility] Oxygen saturation in Arterial blood by Pulse oximetry 2023-03-12 05:00:00 94 /min [facility] Respiratory rate 2023-03-12 04:00:00 16 /min Simultaneous filing. User may not have seen previous data. [facility] Body temperature 2023-03-12 00:21:00 36.78 Zully [facility] Body height 2023-03-12 00:21:00 152.4 cm [facility] Body weight 2023-03-12 00:21:00 77.111 kg [facility] BMI 2023-03-12 00:21:00 33.20 kg/m2 [facility] Systolic blood pressure 2022-12-19 19:24:00 138 mm[Hg] [facility] Diastolic blood pressure 2022-12-19 19:24:00 74 mm[Hg] [facility] Heart rate 2022-12-19 19:24:00 63 /min [facility] Body temperature 2022-12-19 19:24:00 37 Zully [facility] Body height 2022-12-19 19:24:00 152.4 cm [facility] Body weight 2022-12-19 19:24:00 78.563 kg [facility] BMI 2022-12-19 19:24:00 33.83 kg/m2 [facility] Oxygen saturation in Arterial blood by Pulse oximetry 2022-12-19 19:24:00 95 /min [facility] Systolic blood pressure 2022-11-21 18:00:00 125 mm[Hg] [facility] Diastolic blood pressure 2022-11-21 18:00:00 69 mm[Hg] [facility] Respiratory rate 2022-11-21 18:00:00 18 /min [facility] Oxygen saturation in Arterial blood by Pulse oximetry 2022-11-21 18:00:00 94 /min [facility] Heart rate 2022-11-21 15:07:00 54 /min [facility] Body weight 2022-11-21 12:00:00 77.565 kg [facility] BMI 2022-11-21 12:00:00 32.31 kg/m2 [facility] Systolic blood pressure 2022-11-21 15:07:00 123 mm[Hg] [facility] Diastolic blood pressure 2022-11-21 15:07:00 67 mm[Hg] [facility] Heart rate 2022-11-21 15:07:00 54 /min [facility] Respiratory rate 2022-11-21 15:07:00 16 /min [facility] Oxygen saturation in Arterial blood by Pulse oximetry 2022-11-21 15:07:00 97 /min [facility] Body weight 2022-11-21 12:00:00 77.565 kg [facility] BMI 2022-11-21 12:00:00 32.31 kg/m2 [facility] Systolic blood pressure 2022-11-07 19:33:00 132 mm[Hg] [facility] Diastolic blood pressure 2022-11-07 19:33:00 78 mm[Hg] [facility] Heart rate 2022-11-07 19:33:00 73 /min [facility] Respiratory rate 2022-11-07 19:33:00 19 /min [facility] Body height 2022-11-07 19:33:00 154.9 cm [facility] Body weight 2022-11-07 19:33:00 77.928 kg [facility] BMI 2022-11-07 19:33:00 32.46 kg/m2 [facility] Oxygen saturation in Arterial blood by Pulse oximetry 2022-11-07 19:33:00 98 /min [facility] Systolic blood pressure 2022-10-27 17:59:00 177 mm[Hg] [facility] Diastolic blood pressure 2022-10-27 17:59:00 86 mm[Hg] [facility] Heart rate 2022-10-27 17:59:00 99 /min [facility] Body temperature 2022-10-27 17:59:00 38 Zully [facility] Respiratory rate 2022-10-27 17:59:00 20 /min [facility] Body weight 2022-10-27 17:59:00 76.658 kg [facility] BMI 2022-10-27 17:59:00 31.93 kg/m2 [facility] Oxygen saturation in Arterial blood by Pulse oximetry 2022-10-27 17:59:00 99 /min [facility] Systolic blood pressure 2022-09-03 16:57:00 136 mm[Hg] [facility] Diastolic blood pressure 2022-09-03 16:57:00 76 mm[Hg] [facility] Heart rate 2022-09-03 16:57:00 62 /min [facility] Body temperature 2022-09-03 16:57:00 36.72 Zully [facility] Respiratory rate 2022-09-03 16:57:00 17 /min [facility] Body weight 2022-09-03 16:57:00 77.066 kg [facility] BMI 2022-09-03 16:57:00 32.10 kg/m2 [facility] Oxygen saturation in Arterial blood by Pulse oximetry 2022-09-03 16:57:00 97 /min [facility] Systolic blood pressure 2022-08-06 16:32:00 137 mm[Hg] [facility] Diastolic blood pressure 2022-08-06 16:32:00 85 mm[Hg] [facility] Heart rate 2022-08-06 16:32:00 81 /min [facility] Body temperature 2022-08-06 16:32:00 37 Zully [facility] Body height 2022-08-06 16:32:00 154.9 cm [facility] Body weight 2022-08-06 16:32:00 77.111 kg [facility] BMI 2022-08-06 16:32:00 32.12 kg/m2 [facility] Oxygen saturation in Arterial blood by Pulse oximetry 2022-08-06 16:32:00 95 /min [facility] Systolic blood pressure 2022-08-02 16:25:00 120 mm[Hg] [facility] Diastolic blood pressure 2022-08-02 16:25:00 55 mm[Hg] [facility] Heart rate 2022-08-02 16:25:00 67 /min [facility] Body temperature 2022-08-02 16:25:00 36 Zully [facility] Respiratory rate 2022-08-02 16:25:00 18 /min [facility] Oxygen saturation in Arterial blood by Pulse oximetry 2022-08-02 16:25:00 96 /min [facility] Body weight 2022-08-02 08:16:00 75.978 kg [facility] BMI 2022-08-02 08:16:00 31.65 kg/m2 [facility] Body height 2022-07-30 21:03:00 154.9 cm [facility] Systolic blood pressure 2021-11-05 21:52:00 136 mm[Hg] [facility] Diastolic blood pressure 2021-11-05 21:52:00 69 mm[Hg] [facility] Heart rate 2021-11-05 21:52:00 65 /min [facility] Body height 2021-11-05 21:52:00 152.4 cm [facility] Body weight 2021-11-05 21:52:00 81.647 kg [facility] BMI 2021-11-05 21:52:00 35.15 kg/m2 [facility] BP Systolic 2024-09-14 10:33:00 124 mm[Hg] Toney F Zurdo BP Diastolic 2024-09-14 10:33:00 75 mm[Hg] Toney F Zurdo Weight Measured 2024-09-14 10:33:00 165.20 pounds Toney F Zurdo Height Measured 2024-09-14 10:33:00 60.00 inches Toney F Zurdo Body Temperature 2024-09-14 10:33:00 97.60 degrees Toney F Zurdo Heart Rate 2024-09-14 10:33:00 82.00 /min Toney F Zurdo Respiratory Rate 2024-09-14 10:33:00 18.00 /min Toney F Zurdo BP Systolic 2024-09-02 11:15:00 124 mm[Hg] Toney F Zurdo BP Diastolic 2024-09-02 11:15:00 76 mm[Hg] Toney F Zurdo Weight Measured 2024-09-02 11:15:00 165.80 pounds Toney F Zurdo Height Measured 2024-09-02 11:15:00 60.00 inches Toney F Zurdo Body Temperature 2024-09-02 11:15:00 98.30 degrees Toney F Zurdo Heart Rate 2024-09-02 11:15:00 64.00 /min Toney F Zurdo Respiratory Rate 2024-09-02 11:15:00 18.00 /min Toney F Zurdo BP Systolic 2024-07-02 11:14:00 134 mm[Hg] Toney F Zurdo BP Diastolic 2024-07-02 11:14:00 76 mm[Hg] Toney F Zurdo Weight Measured 2024-07-02 11:14:00 168.40 pounds Toney F Zurdo Height Measured 2024-07-02 11:14:00 60.00 inches Toney F Zurdo Body Temperature 2024-07-02 11:14:00 97.40 degrees Toney F Zurdo Heart Rate 2024-07-02 11:14:00 77.00 /min Toney F Zurdo Respiratory Rate 2024-07-02 11:14:00 16.00 /min Toney F Zurdo BP Systolic 2024-06-19 10:51:00 148 mm[Hg] Toney F Zurdo BP Diastolic 2024-06-19 10:51:00 85 mm[Hg] Toney F Zurdo Weight Measured 2024-06-19 10:51:00 167.00 pounds Toney F Zurdo Height Measured 2024-06-19 10:51:00 60.00 inches Toney F Zurdo Body Temperature 2024-06-19 10:51:00 97.50 degrees Toney F Zurdo Heart Rate 2024-06-19 10:51:00 66.00 /min Toney F Zurdo Respiratory Rate 2024-06-19 10:51:00 16.00 /min Toney F Zurdo BP Systolic 2024-06-11 10:04:00 134 mm[Hg] Toney F Zurdo BP Diastolic 2024-06-11 10:04:00 79 mm[Hg] Toney F Zurdo Weight Measured 2024-06-11 10:04:00 166.20 pounds Toney F Zurdo Height Measured 2024-06-11 10:04:00 60.00 inches Toney F Zurdo Body Temperature 2024-06-11 10:04:00 97.30 degrees Toney F Zurdo Heart Rate 2024-06-11 10:04:00 64.00 /min Toney F Zurdo Respiratory Rate 2024-06-11 10:04:00 19.00 /min Toney F Zurdo BP Systolic 2024-03-04 17:29:00 145 mm[Hg] Tnoey F Zurdo BP Diastolic 2024-03-04 17:29:00 84 mm[Hg] Toney F Zurdo Weight Measured 2024-03-04 17:29:00 166.80 pounds Toney F Zurdo Height Measured 2024-03-04 17:29:00 60.00 inches Toney F Zurdo Body Temperature 2024-03-04 17:29:00 97.80 degrees Toney F Zurdo Heart Rate 2024-03-04 17:29:00 69.00 /min Toney [...] Zurdo BP Diastolic 2024-01-27 10:04:00 87 mm[Hg] Tnoey F Zurdo Weight Measured 2024-01-27 10:04:00 169.80 [...] Height Measured 2023-08-18 10:06:00 60.00 inches Toney F Zurdo Body Temperature 2023-08-18 10:06:00 97.70 degrees Toney Renner Heart Rate 2023-08-18 10:06:00 71.00 /min Toney Renner Respiratory Rate 2023-08-18 10:06:00 Toney Renner BP Systolic 2023-07-16 10:52:00 147 mm[Hg] Toney F Zurdo BP Diastolic 2023-07-16 10:52:00 76 mm[Hg] Toney F Zurdo Weight Measured 2023-07-16 10:52:00 171.80 pounds Toney Renner Height Measured 2023-07-16 10:52:00 60.00 inches Toney Renner Body Temperature 2023-07-16 10:52:00 98.30 degrees Toney Renner Heart Rate 2023-07-16 10:52:00 59.00 /min Toney F Zurdo Respiratory Rate 2023-07-16 10:52:00 16.00 /min Toney Renner BP Systolic 2023-06-18 17:31:00 158 mm[Hg] Toney Renner BP Diastolic 2023-06-18 17:31:00 86 mm[Hg] Toney Renner Weight Measured 2023-06-18 17:31:00 174.40 pounds Toney [...] Clinician Source POCT GLUCOSE (AUTOMATED) 2023-09-05 13:49:00 Britney [facility] MAGNESIUM 2023-09-05 10:23:00 Sharri, W[facility] BASIC METABOLIC PANEL (NA, K, CL, CO2, GLUCOSE, BUN, CREATININE, CA) 2023-09-05 10:23:00 Kathi Harrell [facility] CBC WITH DIFF 2023-09-05 10:23:00 Kathi [facility] POCT GLUCOSE (AUTOMATED) 2023-09-05 03:10:00 Britney [facility] POCT GLUCOSE (AUTOMATED) 2023-09-04 22:34:00 Britney [facility] POCT GLUCOSE (AUTOMATED) 2023-09-04 18:35:00 Britney [facility] POCT GLUCOSE (AUTOMATED) 2023-09-04 13:36:00 Britney [facility] MAGNESIUM 2023-09-04 09:05:00 Kathi Harrell [facility] BASIC METABOLIC PANEL (NA, K, CL, CO2, GLUCOSE, BUN, CREATININE, CA) 2023-09-04 09:05:00 Kathi Harrell [facility] CBC WITH DIFF 2023-09-04 09:05:00 Kathi [facility]rell [facility] POCT GLUCOSE (AUTOMATED) 2023-09-04 02:31:00 Britney [facility] POCT GLUCOSE (AUTOMATED) 2023-09-03 22:48:00 Britney [facility] POCT GLUCOSE (AUTOMATED) 2023-09-03 17:49:00 Britney [facility] POCT GLUCOSE (AUTOMATED) 2023-09-03 13:54:00 Britney [facility] MAGNESIUM 2023-09-03 09:06:00 Myrtle Levy [facility] COMP. METABOLIC PANEL ([id number]) 2023-09-03 09:06:00 Myrtle Levy [facility] CBC WITH DIFF 2023-09-03 09:06:00 Myrtle Levy [facility] GLYCOSYLATED HEMOGLOBIN (A1C) 2023-09-03 09:06:00 Gareth Rowan [facility] POCT GLUCOSE (AUTOMATED) 2023-09-03 02:53:00 [facility]ney [facility] POCT GLUCOSE (AUTOMATED) 2023-09-02 22:06:00 Britney [facility] POCT GLUCOSE (AUTOMATED) 2023-09-02 17:45:00 [facility] PO[facility] GLUCOSE (AUTOMATED) 2023-09-02 15:00:00 Britney [facility] LACTIC ACID WHOLE BLOOD 2023-09-02 01:30:00 Richard [facility] CT ABDOMEN PELVIS W CONTRAST 2023-09-01 23:55:45 Maxi Goldberg [facility] HB ECG ROUTINE & RHYTHM STRIP 2023-09-01 22:38:41 Maxi Goldberg [facility] XR CHEST 1 VW 2023-09-01 22:38:00 Maxi Goldberg [facility] LACTIC ACID WHOLE BLOOD 2023-09-01 22:30:00 Raymond Goldberg [facility] BLOOD CULTURE SCREEN 2023-09-01 22:29:00 Makeda Goldberg [facility] TROPONIN I 2023-09-01 22:29:00 [facility] ([id number]) 2023-09-01 22:29:00 Maxi Goldberg [facility] CBC WITH DIFF 2023-09-01 22:29:00 Maxi Goldberg [facility] URINALYSIS 2023-09-01 22:29:00 Maxi Goldberg [facility] COVID-19 (ID NOW RAPID TESTING) 2023-09-01 22:29:00 Maxi Goldberg [facility] LAB ONLY COVID INTERPRETATION 2023-09-01 22:29:00 Maxi Goldberg [facility] ASSIGNMENT OF BENEFITS 2023-09-01 22:11:31 Docto r Unassigned, [place] [facility] CONSENT/REFUSAL FOR DIAGNOSIS AND TREATMENT 2023-09-01 21:07:42 Doctor Unassigned, [place] [facility] CT ABDOMEN PELVIS W CONTRAST 2023-06-22 05:05:28 Christina Lou [facility] LIPASE 2023-06-22 03:45:00 Christina Lou [facility] TROPONIN I 2023-06-22 03:45:00 [facility] COMP. METABOLIC PANEL ([id number]) 2023-06-22 03:45:00 Christina Lou [facility] CBC WITH DIFF 2023-06-22 03:45:00 Christina Lou [facility] URINALYSIS 2023-06-22 03:45:00 [facility] CONSENT/REFUSAL FOR DIAGNOSIS AND TREATMENT 2023-06-22 02:54:50 Doctor Unassigned, [place] [facility] EKG-12 LEAD 2023-06-02 03:24:46 Betsey Boss [facility] TROPONIN I 2023-06-02 02:08:00 Betsey Boss [facility] LIPASE 2023-06-02 00:25:00 Betsey Boss [facility] MAGNESIUM 2023-06-02 00:25:00 Betsey Boss [facility] TROPONIN I 2023-06-02 00:25:00 Betsey Boss [facility] COMP. METABOLIC PANEL ([id number]) 2023-06-02 00:25:00 Betsey Boss [facility] CBC WITH DIFF 2023-06-02 00:25:00 Betsey Boss [facility] N-TERMINAL PRO-BNP 2023-06-02 00:25:00 Betsey Boss [facility] CONSENT/REFUSAL FOR DIAGNOSIS AND TREATMENT 2023-06-02 00:05:52 Doctor Unassigned, [place] [facility] XR CHEST 1 VW 2023-06-01 23:47:16 Betsey Boss [facility] CONSENT/REFUSAL FOR DIAGNOSIS AND TREATMENT 2023-06-01 23:14:22 Doctor Unassigned, [place] [facility] AUTHORIZATION FOR RELEASE OF PHI 2023-05-11 05:01:00 Doctor Unassigned, [place] [facility] EKG-12 LEAD 2023-03-12 04:25:00 [facility] TROPONIN I 2023-03-12 03:28:00 [facility] ABDOMEN PELVIS W CONTRAST 2023-03-12 02:33:00 Solomon Millan [facility] XR CHEST 1 VW 2023-03-12 01:12:24 Solomon Millan [facility] CK (CREATINE KINASE) + MB 2023-03-12 00:34:00 Eren Millan [facility] LIPASE 2023-03-12 00:34:00 Solomon Mill[facility] TROPONIN I 2023-03-12 00:34:00 Solomon Mill[facility] COMP. METABOLIC PANEL ([id number]) 2023-03-12 00:34:00 Solomon Millan [facility] CBC WITH DIFF 2023-03-12 00:34:00 Solomon Millan [facility] URINALYSIS 2023-03-12 00:34:00 Solomon Mill[facility] N-TERMINAL PRO-BNP 2023-03-12 00:34:00 Solomon Millan [facility] NOTICE OF PRIVACY PRACTICES 2023-03-12 00:16:34 Doctor Unassigned, [place] [facility] CONSENT/REFUSAL FOR DIAGNOSIS AND TREATMENT 2023-03-12 00:16:08 Doctor Unassigned, [place] [facility] PATIENT FINANCIAL POLICY 2022-12-19 19:07:24 Doctor Unassigned, [place] [facility] CARDIAC CATHETERIZATION 2022-11-21 14:44:17 George Burnette [facility] CARDIAC CATHETERIZATION 2022-11-21 14:44:17 George Burnette [facility] CARDIAC CATHETERIZATION 2022-11-21 14:44:17 George Burnette [facility] CARDIAC CATHETERIZATION 2022-11-21 14:44:17 George Burnette [facility] BASIC METABOLIC PANEL (NA, K, CL, CO2, GLUCOSE, BUN, CREATININE, CA) 2022-11-21 12:30:00 Moira [facility] CBC WITH DIFF 2022-11-21 12:30:00 Moira [facility] PROTHROMBIN TIME / INR 2022-11-21 12:30:00 Moira [facility] BASIC METABOLIC PANEL (NA, K, CL, CO2, GLUCOSE, BUN, CREATININE, CA) 2022-11-21 12:30:00 Moira [facility] CBC WITH DIFF 2022-11-21 12:30:00 Moira [facility] PROTHROMBIN TIME / INR 2022-11-21 12:30:00 Moira [facility] OUTPATIENT CARDIAC CATHETERIZATION DOCUMENTS 2022-11-21 06:01:00 Doctor Unassigned, [place] [facility] CONSENT/REFUSAL FOR DIAGNOSIS AND TREATMENT 2022-11-07 18:46:45 Doctor Unassigned, [place] [facility] RAPID STREP SCREEN FOR GROUP A 2022-10-27 19:17:00 Maggi Calloway [facility] RAPID INFLUENZA A/B 2022-10-27 19:17:00 Maggi Calloway [facility] COVID-19 (ID NOW RAPID TESTING) 2022-10-27 19:17:00 Maggi Calloway [facility] CONSENT/REFUSAL FOR DIAGNOSIS AND TREATMENT 2022-10-27 17:51:23 Doctor Unassigned, [place] [facility] MYOCARDIUM PERFUSION STRESS AND REST 2022-08-08 18:09:[address] [facility] MYOCARDIUM PERFUSION STRESS AND REST 2022-08-08 18:09:[address] [facility] MYOCARDIUM PERFUSION STRESS AND REST 2022-08-08 18:09:[address] [facility] MYOCARDIUM PERFUSION STRESS AND REST 2022-08-08 18:09:[address] [facility] POCT GLUCOSE (AUTOMATED) 2022-08-02 16:29:00 [facility]ney [facility] POCT GLUCOSE (AUTOMATED) 2022-08-02 12:37:00 Britney [facility] BASIC METABOLIC PANEL (NA, K, CL, CO2, GLUCOSE, BUN, CREATININE, CA) 2022-08-02 09:16:00 Kyle Barkley [facility] CBC WITH DIFF 2022-08-02 09:16:00 Kyle Barkley [facility] POCT GLUCOSE (AUTOMATED) 2022-08-01 21:34:00 Britney [facility] POCT GLUCOSE (AUTOMATED) 2022-08-01 16:27:00 Britney [facility] POCT GLUCOSE (AUTOMATED) 2022-08-01 12:37:00 Britney [facility] POCT GLUCOSE (AUTOMATED) 2022-08-01 01:03:00 Britney [facility] POCT GLUCOSE (AUTOMATED) 2022-07-31 21:37:00 Britney [facility] TROPONIN I 2022-07-31 21:10:00 Destiney Avila [facility] POCT GLUCOSE (AUTOMATED) 2022-07-31 16:36:00 Britney [facility] TRANSTHORACIC ECHO (TTE) COMPLETE 2022-07-31 13:31:00 Arun [facility] POCT GLUCOSE (AUTOMATED) 2022-07-31 12:44:00 Britney [facility] CT CHEST PULMONARY ANGIOGRAM 2022-07-31 12:09:33 Arun [facility] TROPONIN I 2022-07-31 08:53:00 Destiney Avila [facility] BASIC METABOLIC PANEL (NA, K, CL, CO2, GLUCOSE, BUN, CREATININE, CA) 2022-07-31 08:53:00 Destiney Avila [facility] CBC WITH DIFF 2022-07-31 08:53:00 Destiney Avila [facility] GLYCOSYLATED HEMOGLOBIN (A1C) 2022-07-31 05:25:00 Arun [facility] COVID-19 (ID NOW RAPID TESTING) 2022-07-31 05:22:00 Samirajose ramon [facility] LAB ONLY COVID INTERPRETATION 2022-07-31 05:22:00 Mikeclaudiojose ramon [facility] TROPONIN I 2022-07-31 01:25:00 Destiney Avila [facility] N-TERMINAL PRO-BNP 2022-07-31 01:25:00 Arun [facility] XR CHEST 1 VW 2022-07-30 16:07:44 [facility] MAGNESIUM 2022-07-30 15:53:00 [facility]y [facility] TROPONIN I 2022-07-30 15:53:00 Destiney [facility] THYROID STIMULATING HORMONE 2022-07-30 15:53:00 Destiney Avila [facility] COMP. METABOLIC PANEL (02392) 2022-07-30 15:53:00 Destiney Blair [facility] LIPID PANEL (78966)(TOTAL CHOLESTEROL, TRIGLYCERIDES, HDL) 2022-07-30 15:53:00 Destiney Avila [facility] CBC WITH DIFF 2022-07-30 15:53:00 Destiney Blair [facility] PROTHROMBIN TIME / INR 2022-07-30 15:53:00 Pastora Blair [facility] ACTIVATED PARTIAL THRMPLAS RAYMOND 2022-07-30 15:53:00 Destiney Blair [facility] HB ECG ROUTINE & RHYTHM STRIP 2022-07-30 15:06:24 Destiney Blair [facility] CONSENT/REFUSAL FOR DIAGNOSIS AND TREATMENT 2022-07-30 14:45:47 Doctor Unassigned, [place] [facility] TRANSTHORACIC ECHO (TTE) COMPLETE 2021-11-05 21:52:10 Petrona Burnette [facility] EXTERNAL PROVIDER - ADC REFERRAL 2021-10-09 06:01:00 Doctor Unassigned, [place] [facility] 13195 Ecg Routine Ecg W/least 12 Lds W/i r 2018-04-27 00:00:00 Toney Cowan [place] Plan [facility] Care Planned Activity Planned Date Details Comments Source Goal Plan of Care Note [code = 15238-0] Goal Plan of Care Note [code = 45946-7] Goal Plan of Care Note [code = 52346-9] Goal Plan of Care Note [code = 84067-7] Goal Plan of Care Note [code = 38276-5] Goal Plan of Care Note [code = 37750-9] Goal Plan of Care Note [code = 32392-9] Goal Plan of Care Note [code = 33386-7] Goal Plan of Care Note [code = 92116-5] Goal Plan of Care Note [code = 20899-1] Goal Plan of Care Note [code = 66143-9] Goal Plan of Care Note [code = 86032-2] Goal Plan of Care Note [code = 52291-1] Goal Plan of Care Note [code = 94621-5] Goal Plan of Care Note [code = 24219-0] Goal Plan of Care Note [code = 17604-0] Goal Plan of Care Note [code = 14201-8] Goal Plan of Care Note [code = 52002-4] Goal Plan of Care Note [code = 70589-4] Goal Plan of Care Note [code = 66126-5] Goal Plan of Care Note [code = 75000-0] Goal Plan of Care Note [code = 27620-4] Goal Plan of Care Note [code = 33622-8] Goal Plan of Care Note [code = 49722-6] Goal Plan of Care Note [code = 07468-8] Goal Plan of Care Note [code = 63733-9] Goal Plan of Care Note [code = 78997-5] Goal Plan of Care Note [code = 71540-9] Goal Plan of Care Note [code = 70535-8] Goal Plan of Care Note [code = 94045-8] Goal Plan of Care Note [code = 45772-1] Goal Plan of Care Note [code = 65088-6] Goal Plan of Care Note [code = 57459-6] Goal Plan of Care Note [code = 67193-3] Goal Plan of Care Note [code = 52002-0] Goal Plan of Care Note [code = 66711-9] Goal Plan of Care Note [code = 69609-4] Goal Plan of Care Note [code = 87087-8] Goal Plan of Care Note [code = 03563-6] Goal Plan of Care Note [code = 04838-3] Goal Plan of Care Note [code = 94836-4] Goal Plan of Care Note [code = 48907-7] Goal Plan of Care Note [code = 68797-9] Goal Plan of Care Note [code = 42951-5] Goal Plan of Care Note [code = 72601-5] Goal Plan of Care Note [code = 33041-6] Goal Plan of Care Note [code = 28505-9] Goal Plan of Care Note [code = 75947-2] Goal Plan of Care Note [code = 17841-3] Goal Plan of Care Note [code = 93833-6] Goal Plan of Care Note [code = 43443-8] Goal Plan of Care Note [code = 39611-5] Goal Plan of Care Note [code = 16785-3] Goal Plan of Care Note [code = 76525-4] Goal Plan of Care Note [code = 47502-2] Goal Plan of Care Note [code = 47774-6] Goal Plan of Care Note [code = 79557-4] Goal Plan of Care Note [code = 60839-5] Goal Plan of Care Note [code = 47237-7] Goal Plan of Care Note [code = 99635-6] Goal Plan of Care Note [code = 72394-6] Goal Plan of Care Note [code = 62773-7] Goal Plan of Care Note [code = 37003-5] Goal Plan of Care Note [code = 33214-9] Goal Plan of Care Note [code = 35690-6] Goal Plan of Care Note [code = 21105-6] Goal Plan of Care Note [code = 02130-3] Goal Plan of Care Note [code = 55136-6] Goal Plan of Care Note [code = 93158-4] Goal Plan of Care Note [code = 81598-9] Goal Plan of Care Note [code = 81140-7] Goal Plan of Care Note [code = 10726-8] Goal Plan of Care Note [code = 15158-1] Goal Plan of Care Note [code = 98693-5] Goal Plan of Care Note [code = 27840-2] Goal Plan of Care Note [code = 55469-6] Goal Plan of Care Note [code = 42916-7] Goal Plan of Care Note [code = 27487-4] Goal Plan of Care Note [code = 23287-0] Goal Plan of Care Note [code = 94151-7] Goal Plan of Care Note [code = 44357-3] Goal Plan of Care Note [code = 77397-3] Goal Plan of Care Note [code = 68493-5] Goal Plan of Care Note [code = 47590-8] Goal Plan of Care Note [code = 00752-6] Goal Plan of Care Note [code = 30723-1] Goal Plan of Care Note [code = 70989-2] Goal Plan of Care Note [code = 94576-3] Goal Plan of Care Note [code = 31110-9] Goal Plan of Care Note [code = 69335-6] Goal Plan of Care Note [code = 21092-4] Goal Plan of Care Note [code = 45211-2] Goal Plan of Care Note [code = 18041-0] Goal Plan of Care Note [code = 91721-4] Goal Plan of Care Note [code = 67047-4] Goal Plan of Care Note [code = 77429-5] Goal Plan of Care Note [code = 79363-9] Goal Plan of Care Note [code = 83030-5] Goal Plan of Care Note [code = 21656-9] Goal Plan of Care Note [code = 10996-0] Goal Plan of Care Note [code = 77655-2] Goal Plan of Care Note [code = 44658-6] Goal Plan of Care Note [code = 49338-8] Goal Plan of Care Note [code = 26396-0] Goal Plan of Care Note [code = 73584-2] Goal Plan of Care Note [code = 04740-7] Goal Plan of Care Note [code = 74251-8] Goal Plan of Care Note [code = 72409-6] Goal Plan of Care Note [code = 45916-1] Goal Plan of Care Note [code = 25424-4] Goal Plan of Care Note [code = 44201-5] Goal Plan of Care Note [code = 65249-6] Goal Plan of Care Note [code = 72999-2] Goal Plan of Care Note [code = 21723-7] Goal Plan of Care Note [code = 06705-7] Goal Plan of Care Note [code = 75882-3] Goal Plan of Care Note [code = 38482-6] Goal Plan of Care Note [code = 53101-5] Goal Plan of Care Note [code = 87076-5] Goal Plan of Care Note [code = 51520-0] Goal Plan of Care Note [code = 84909-8] Goal Plan of Care Note [code = 81743-8] Goal Plan of Care Note [code = 81015-9] Goal Plan of Care Note [code = 39048-4] Goal Plan of Care Note [code = 64559-3] Goal Plan of Care Note [code = 69906-6] Goal Plan of Care Note [code = 91846-5] Goal Plan of Care Note [code = 63641-1] Goal Plan of Care Note [code = 13530-6] Goal Plan of Care Note [code = 24780-9] Goal Plan of Care Note [code = 54236-1] Goal Plan of Care Note [code = 54657-8] Goal Plan of Care Note [code = 73743-9] Goal Plan of Care Note [code = 28848-2] Goal Plan of Care Note [code = 20154-3] Goal Plan of Care Note [code = 33598-2] Goal Plan of Care Note [code = 55785-0] Goal Plan of Care Note [code = 15517-8] Goal Plan of Care Note [code = 32803-3] Goal Plan of Care Note [code = 20279-9] Goal Plan of Care Note [code = 61521-0] Goal Plan of Care Note [code = 49873-9] Goal Plan of Care Note [code = 49103-8] Goal Plan of Care Note [code = 78113-0] Goal Plan of Care Note [code = 81273-8] Goal Plan of Care Note [code = 42558-7] Goal Plan of Care Note [code = 86404-8] Goal Plan of Care Note [code = 43567-5] Goal Plan of Care Note [code = 36528-0] Goal Plan of Care Note [code = 84261-5] Goal Plan of Care Note [code = 82891-4] Goal Plan of Care Note [code = 07688-1] Goal Plan of Care Note [code = 91112-3] Goal Plan of Care Note [code = 18052-8] Goal Plan of Care Note [code = 75952-3] Goal Plan of Care Note [code = 12599-5] Goal Plan of Care Note [code = 92623-2] Goal Plan of Care Note [code = 64755-1] Goal Plan of Care Note [code = 55473-2] Goal Plan of Care Note [code = 34218-4] Goal Plan of Care Note [code = 25420-7] Goal Plan of Care Note [code = 39482-0] Goal Plan of Care Note [code = 21028-8] Goal Plan of Care Note [code = 03177-9] Goal Plan of Care Note [code = 91670-4] Goal Plan of Care Note [code = 56030-0] Goal Plan of Care Note [code = 40466-2] Goal Plan of Care Note [code = 95412-2] Goal Plan of Care Note [code = 14058-1] Goal Plan of Care Note [code = 42717-1] Goal Plan of Care Note [code = 88245-1] Goal Plan of Care Note [code = 21313-3] Goal Plan of Care Note [code = 06835-3] Goal Plan of Care Note [code = 40279-1] Goal Plan of Care Note [code = 72827-5] Goal Plan of Care Note [code = 02875-7] Goal Plan of Care Note [code = 30530-3] Goal Plan of Care Note [code = 18033-5] Goal Plan of Care Note [code = 52964-2] Goal Plan of Care Note [code = 18155-5] Goal Plan of Care Note [code = 09089-3] Goal Plan of Care Note [code = 43813-3] Goal Plan of Care Note [code = 53230-8] Goal Plan of Care Note [code = 67843-6] Goal Plan of Care Note [code = 95950-3] Goal Plan of Care Note [code = 53574-3] Goal Plan of Care Note [code = 72645-6] Goal Plan of Care Note [code = 47348-4] Goal Plan of Care Note [code = 93417-9] Goal Plan of Care Note [code = 72989-3] Goal Plan of Care Note [code = 84479-9] Goal Plan of Care Note [code = 37550-0] Goal Plan of Care Note [code = 42582-4] Goal Plan of Care Note [code = 08698-2] Goal Plan of Care Note [code = 01370-8] Goal Plan of Care Note [code = 66005-9] Goal Plan of Care Note [code = 35945-2] Goal Plan of Care Note [code = 07282-0] Goal Plan of Care Note [code = 25161-0] Goal Plan of Care Note [code = 47557-6] Goal Plan of Care Note [code = 72209-9] Goal Plan of Care Note [code = 77062-8] Goal Plan of Care Note [code = 92227-0] Goal Plan of Care Note [code = 50929-1] Goal Plan of Care Note [code = 64138-4] Goal Plan of Care Note [code = 00001-5] Goal Plan of Care Note [code = 06864-3] Goal Plan of Care Note [code = 31881-7] Goal Plan of Care Note [code = 47252-5] Goal Plan of Care Note [code = 03645-3] Goal Plan of Care Note [code = 57134-1] Goal Plan of Care Note [code = 38787-6] Goal Plan of Care Note [code = 26809-0] Goal Plan of Care Note [code = 25726-3] Goal Plan of Care Note [code = 73288-8] Goal Plan of Care Note [code = 29454-1] Goal Plan of Care Note [code = 45221-1] Goal Plan of Care Note [code = 36926-1] Goal Plan of Care Note [code = 29285-7] Goal Plan of Care Note [code = 13549-2] Goal Plan of Care Note [code = 94970-9] Goal Plan of Care Note [code = 03396-8] Goal Plan of Care Note [code = 00451-1] Goal Plan of Care Note [code = 45863-4] Goal Plan of Care Note [code = 26392-5] Goal Plan of Care Note [code = 54791-2] Goal Plan of Care Note [code = 19346-2] Goal Plan of Care Note [code = 48194-7] Goal Plan of Care Note [code = 54700-6] Goal Plan of Care Note [code = 84431-1] Goal Plan of Care Note [code = 84255-9] Goal Plan of Care Note [code = 55252-0] Goal Plan of Care Note [code = 05035-7] Goal Plan of Care Note [code = 16818-7] Goal Plan of Care Note [code = 77680-1] Goal Plan of Care Note [code = 17992-8] Goal Plan of Care Note [code = 30294-8] Goal Plan of Care Note [code = 69063-4] Goal Plan of Care Note [code = 81612-4] Goal Plan of Care Note [code = 85685-5] Goal Plan of Care Note [code = 06217-5] Goal Plan of Care Note [code = 36794-6] Goal Plan of Care Note [code = 95621-4] Goal Plan of Care Note [code = 06192-3] Goal Plan of Care Note [code = 43242-1] Goal Plan of Care Note [code = 39203-1] Goal Plan of Care Note [code = 97334-4] Goal Plan of Care Note [code = 86918-0] Goal Plan of Care Note [code = 48772-0] Goal Plan of Care Note [code = 34493-7] Goal Plan of Care Note [code = 37683-5] Goal Plan of Care Note [code = 09288-1] Goal Plan of Care Note [code = 19249-8] Goal Plan of Care Note [code = 51733-0] Goal Plan of Care Note [code = 42196-4] Goal Plan of Care Note [code = 98518-1] Goal Plan of Care Note [code = 74136-3] Goal Plan of Care Note [code = 16402-1] Goal Plan of Care Note [code = 56382-2] Goal Plan of Care Note [code = 47756-9] Goal Plan of Care Note [code = 88015-2] Goal Plan of Care Note [code = 93921-0] Goal Plan of Care Note [code = 71265-5] Goal Plan of Care Note [code = 53410-9] Goal Plan of Care Note [code = 30163-3] Goal Plan of Care Note [code = 87488-7] Goal Plan of Care Note [code = 98651-9] Goal Plan of Care Note [code = 31619-0] Goal Plan of Care Note [code = 18917-9] Goal Plan of Care Note [code = 42543-9] Goal Plan of Care Note [code = 32586-0] Goal Plan of Care Note [code = 53272-0] Goal Plan of Care Note [code = 11684-5] Goal Plan of Care Note [code = 81329-6] Goal Plan of Care Note [code = 53317-1] Goal Plan of Care Note [code = 78304-2] Goal Plan of Care Note [code = 83679-6] Goal Plan of Care Note [code = 40002-4] Goal Plan of Care Note [code = 44369-6] Goal Plan of Care Note [code = 58696-1] Goal Plan of Care Note [code = 14788-0] Goal Plan of Care Note [code = 47209-8] Goal Plan of Care Note [code = 82756-8] Goal Plan of Care Note [code = 52820-1] Goal Plan of Care Note [code = 52876-3] Goal Plan of Care Note [code = 46984-1] Goal Plan of Care Note [code = 72108-1] Goal Plan of Care Note [code = 86616-5] Goal Plan of Care Note [code = 38223-4] Goal Plan of Care Note [code = 27982-3] Goal Plan of Care Note [code = 46015-7] Goal Plan of Care Note [code = 67563-0] Goal Plan of Care Note [code = 61885-4] Goal Plan of Care Note [code = 60917-7] Goal Plan of Care Note [code = 37312-2] Goal Plan of Care Note [code = 17662-2] Goal Plan of Care Note [code = 79117-1] Goal Plan of Care Note [code = 02153-5] Goal Plan of Care Note [code = 71998-9] Goal Plan of Care Note [code = 18930-0] Goal Plan of Care Note [code = 08730-3] Goal Plan of Care Note [code = 50698-3] Goal Plan of Care Note [code = 32438-6] Goal Plan of Care Note [code = 39822-8] Goal Plan of Care Note [code = 88585-1] Goal Plan of Care Note [code = 69553-5] Goal Plan of Care Note [code = 75864-9] Goal Plan of Care Note [code = 17271-5] Goal Plan of Care Note [code = 62224-5] Goal Plan of Care Note [code = 08251-1] Goal Plan of Care Note [code = 92785-1] Goal Plan of Care Note [code = 71901-0] Goal Plan of Care Note [code = 89663-1] Goal Plan of Care Note [code = 35645-3] Goal Plan of Care Note [code = 38409-0] Goal Plan of Care Note [code = 62267-8] Goal Plan of Care Note [code = 87232-5] Goal Plan of Care Note [code = 66644-8] Goal Plan of Care Note [code = 99986-7] Goal Plan of Care Note [code = 86656-9] Goal Plan of Care Note [code = 29122-5] Goal Plan of Care Note [code = 41547-0] Goal Plan of Care Note [code = 95455-9] Goal Plan of Care Note [code = 85138-7] Goal Plan of Care Note [code = 66418-1] Goal Plan of Care Note [code = 11622-5] Goal Plan of Care Note [code = 19258-8] Goal Plan of Care Note [code = 00309-1] Goal Plan of Care Note [code = 06494-5] Goal Plan of Care Note [code = 72157-3] Goal Plan of Care Note [code = 91536-8] Goal Plan of Care Note [code = 62361-0] Goal Plan of Care Note [code = 54337-5] Goal Plan of Care Note [code = 12768-3] Goal Plan of Care Note [code = 88344-0] Goal Plan of Care Note [code = 13714-0] Goal Plan of Care Note [code = 49874-1] Goal Plan of Care Note [code = 71411-4] Goal Plan of Care Note [code = 44021-1] Goal Plan of Care Note [code = 86534-3] Goal Plan of Care Note [code = 64711-2] Goal Plan of Care Note [code = 15628-2] Goal Plan of Care Note [code = 91803-4] Goal Plan of Care Note [code = 37369-7] Goal Plan of Care Note [code = 03277-9] Goal Plan of Care Note [code = 48272-2] Goal Plan of Care Note [code = 88230-9] Goal Plan of Care Note [code = 86619-1] Goal Plan of Care Note [code = 31699-4] Goal Plan of Care Note [code = 39795-7] Goal Plan of Care Note [code = 15685-2] Goal Plan of Care Note [code = 52045-8] Goal Plan of Care Note [code = 66917-3] Goal Plan of Care Note [code = 11183-1] Goal Plan of Care Note [code = 35902-9] Goal Plan of Care Note [code = 50251-3] Goal Plan of Care Note [code = 25476-7] Goal Plan of Care Note [code = 59690-9] Goal Plan of Care Note [code = 66987-3] Goal Plan of Care Note [code = 77021-8] Goal Plan of Care Note [code = 17712-5] Goal Plan of Care Note [code = 63873-5] Goal Plan of Care Note [code = 78747-4] Goal Plan of Care Note [code = 32102-4] Goal Plan of Care Note [code = 89838-4] Goal Plan of Care Note [code = 65348-0] Goal Plan of Care Note [code = 86460-7] Goal Plan of Care Note [code = 32818-3] Goal Plan of Care Note [code = 18511-0] Goal Plan of Care Note [code = 15856-2] Goal Plan of Care Note [code = 59544-3] Goal Plan of Care Note [code = 53724-7] Goal Plan of Care Note [code = 61390-9] Goal Plan of Care Note [code = 62508-8] Goal Plan of Care Note [code = 68403-0] Goal Plan of Care Note [code = 60297-4] Goal Plan of Care Note [code = 17834-9] Goal Plan of Care Note [code = 09507-3] Goal Plan of Care Note [code = 98149-9] Goal Plan of Care Note [code = 83467-3] Goal Plan of Care Note [code = 96095-4] Goal Plan of Care Note [code = 16295-6] Goal Plan of Care Note [code = 50144-7] Goal Plan of Care Note [code = 92171-6] Goal Plan of Care Note [code = 93917-0] Goal Plan of Care Note [code = 87849-7] Goal Plan of Care Note [code = 63603-6] Goal Plan of Care Note [code = 19956-2] Goal Plan of Care Note [code = 11119-4] Goal Plan of Care Note [code = 12811-4] Goal Plan of Care Note [code = 06651-3] Goal Plan of Care Note [code = 89024-6] Goal Plan of Care Note [code = 98351-2] Goal Plan of Care Note [code = 96621-3] Goal Plan of Care Note [code = 07160-2] Goal Plan of Care Note [code = 34615-1] Goal Plan of Care Note [code = 89667-4] Goal Plan of Care Note [code = 27692-6] Goal Plan of Care Note [code = 90297-7] Goal Plan of Care Note [code = 00171-5] Goal Plan of Care Note [code = 47849-3] Goal Plan of Care Note [code = 02855-1] Goal Plan of Care Note [code = 32723-1] Goal Plan of Care Note [code = 30535-7] Goal Plan of Care Note [code = 64928-7] Goal Plan of Care Note [code = 49193-5] Goal Plan of Care Note [code = 87856-9] Goal Plan of Care Note [code = 97172-9] Goal Plan of Care Note [code = 31985-5] Goal Plan of Care Note [code = 53663-2] Goal Plan of Care Note [code = 29925-6] Goal Plan of Care Note [code = 05915-3] Goal Plan of Care Note [code = 13922-3] Goal Plan of Care Note [code = 41267-8] Goal Plan of Care Note [code = 02730-9] Goal Plan of Care Note [code = 83699-7] Goal Plan of Care Note [code = 86430-5] Goal Plan of Care Note [code = 80648-0] Goal Plan of Care Note [code = 99203-0] Goal Plan of Care Note [code = 40343-2] Goal Plan of Care Note [code = 10137-0] Goal Plan of Care Note [code = 14734-2] Goal Plan of Care Note [code = 99494-8] Goal Plan of Care Note [code = 60654-6] Goal Plan of Care Note [code = 89706-1] Goal Plan of Care Note [code = 61281-4] Goal Plan of Care Note [code = 85649-6] Goal Plan of Care Note [code = 53186-3] Goal Plan of Care Note [code = 50026-2] Goal Plan of Care Note [code = 61619-1] Goal Plan of Care Note [code = 79172-8] Goal Plan of Care Note [code = 29433-4] Goal Plan of Care Note [code = 38489-2] Goal Plan of Care Note [code = 30365-2] Goal Plan of Care Note [code = 53156-5] Goal Plan of Care Note [code = 93982-3] Goal Plan of Care Note [code = 99265-3] Goal Plan of Care Note [code = 59773-1] Goal Plan of Care Note [code = 32575-4] Goal Plan of Care Note [code = 82730-8] Goal Plan of Care Note [code = 24768-2] Goal Plan of Care Note [code = 59694-6] Goal Plan of Care Note [code = 52026-6] Goal Plan of Care Note [code = 02109-6] Goal Plan of Care Note [code = 12330-4] Goal Plan of Care Note [code = 01095-1] Goal Plan of Care Note [code = 34687-0] Goal Plan of Care Note [code = 36038-4] Goal Plan of Care Note [code = 87148-6] Goal Plan of Care Note [code = 68060-3] Goal Plan of Care Note [code = 47757-2] Goal Plan of Care Note [code = 42909-6] Goal Plan of Care Note [code = 47434-0] Goal Plan of Care Note [code = 91016-2] Goal Plan of Care Note [code = 78692-6] Goal Plan of Care Note [code = 87056-4] Goal Plan of Care Note [code = 18848-2] Goal Plan of Care Note [code = 59616-8] Goal Plan of Care Note [code = 08732-7] Goal Plan of Care Note [code = 74147-4] Goal Plan of Care Note [code = 85947-0] Goal Plan of Care Note [code = 79378-8] Goal Plan of Care Note [code = 62962-3] Goal Plan of Care Note [code = 21289-2] Goal Plan of Care Note [code = 43774-8] Goal Plan of Care Note [code = 63678-9] Encounters Start Date/Time End Date/Time Encounter Type Admission Type Attending Clinicians Care Facility Care Department Encounter ID Source 2025-01-03 10:00:00 2025-01-03 10:00:00 Outpatient BHAVESH LAIRDYAO [facility] [id number] [facility] 2024-09-14 10:15:47 2024-09-14 10:15:47 Outpatient [facility] [id number] Toney Renner 2024-09-14 00:00:00 2024-09-14 00:00:00 Outpatient Visit [facility] [id number] Toney Renner 2024-09-02 11:12:02 2024-09-02 11:12:02 Outpatient [facility] [address] Toney Cowan [place] 2024-09-02 00:00:00 2024-09-02 00:00:00 Outpatient Visit [facility] [id number] Toney Cowan [place] 2024-09-01 10:00:00 2024-09-01 10:00:00 Outpatient PRETTY SANCHEZ HAIDER [facility] [id number] [facility] 2024-07-02 11:06:04 2024-07-02 11:06:04 Outpatient [facility] [id number] 2024-07-02 00:00:00 2024-07-02 00:00:00 Outpatient Visit [facility] [id number] T[address] [place] 2024-06-19 10:45:53 2024-06-19 10:45:53 Outpatient [facility] [address] 2024-06-19 00:00:00 2024-06-19 00:00:00 Outpatient Visit [facility] [id number] Toney Renner 2024-06-11 09:45:29 2024-06-11 09:45:29 Outpatient [facility] [address] 2024-06-11 00:00:00 2024-06-11 00:00:00 Outpatient Visit [facility] [id number] Toney Renner 2024-04-14 08:49:42 2024-04-14 08:49:42 Outpatient [facility] 19 [address] 2024-03-06 11:42:26 2024-03-06 11:42:26 Outpatient S[facility] 05[address]ner 2024-03-04 17:23:24 2024-03-04 17:23:24 Outpatient [facility] [id number] 2024-03-04 00:00:00 2024-03-04 00:00:00 Outpatient Visit [facility] [id number] Toney Renner 2024-02-02 10:23:11 2024-02-02 10:23:11 Outpatient [facility] [address] 2024-01-28 10:30:00 2024-01-28 10:30:00 Outpatient R PRETTY ERNANDEZ HAIDER [facility] [id number] [facility] 2024-01-27 10:00:35 2024-01-27 10:00:35 Outpatient SFA SFA [id number] Toney Renner 2024-01-02 13:40:00 2024-01-02 13:40:00 Office Visit Petrona Burntete [facility] 1.2.840.114 350.1.13.10 4.2.7.2.686 [id number] [facility] 2024-01-02 13:40:00 2024-01-02 13:26:56 Outpatient PETRONA LAIRD [facility] [id number] [facility] 2023-12-19 13:00:00 2023-12-19 13:00:00 [facility] [id number] [facility] 2023-11-27 09:12:02 2023-11-27 09:12:02 Outpatient [facility] [id number] Toneyfranklin Renner 2023-11-17 10:15:00 2023-11-17 10:15:00 Outpatient FABIAN MEJIA [facility] [id number] [facility] 2023-11-10 14:06:58 2023-11-10 14:06:58 Outpatient [place] [id number] Toney Camryn Zurdo 2023-10-03 00:00:00 2023-10-03 00:00:00 Outpatient GC_GCBZW_Ka diyala_S [facility] [id number] [facility] 2023-09-25 10:00:00 2023-09-25 10:00:00 Outpatient LANDEN MI CHOCKALINGA M [facility] [id number] [facility] 2023-09-23 11:17:46 2023-09-23 11:17:46 Outpatient [place] [id number] Toney Renner 2023-09-22 11:07:05 2023-09-22 11:07:05 Outpatient [facility] [id number] Toney Camryn Zurdo 2023-09-11 10:20:00 2023-09-11 10:20:00 Outpatient R LANDEN PERSAUD CHOCKALINGA M [facility] [id number] [facility] 2023-09-08 00:00:00 2023-09-08 00:00:00 Transition of Care Abdelrahman Leone ONELIA SLAUGHTER 1.2.840.114 350.1.13.10 4.2.7.2.686 [id number] [facility] 2023-09-01 15:37:00 2023-09-05 11:33:00 Inpatient KEISHA COVARRUBIAS [facility] [id number] [facility] 2023-09-01 15:37:00 2023-09-05 11:33:00 Hospital Encounter Maxi Goldberg Keisha [facility] 1.2.840.114 350.1.13.10 4.2.7.2.686 [id number] [facility] 2023-09-05 00:00:00 2023-09-05 00:00:00 Outpatient GC_GCBZW_Ka diyala_S PRIV PRIV [id number] [facility] 2023-08-18 09:55:00 2023-08-18 09:55:00 Outpatient SFA [facility] [id number] Toney Cowan Zurdo 2023-08-08 00:00:00 2023-08-08 00:00:00 Outpatient GC_GCBZW_Ka diyala_S PRIV PRIV [id number] [facility] 2023-07-22 00:00:00 2023-07-22 00:00:00 Telephone Petrona Burnette [facility] 1..840.114 350.1.13.10 4.2.7.2.686 [id number] [facility] 2023-07-21 10:20:00 2023-07-21 23:59:00 Hospital Encounter Radiology [facility] 1.2.840.114 350.1.13.10 4.2.7.2.686 [id number] [facility] 2023-07-21 00:00:00 2023-07-21 23:59:00 Outpatient R RADIOLOGY [facility] [id number] [facility] 2023-07-16 10:44:58 2023-07-16 10:44:58 Outpatient [facility] [id number] Toney Renner 2023-07-12 00:00:00 2023-07-12 00:00:00 Outpatient GC_GCBZW_Ka diyala_S PRIV PRIV [id number] [facility] 2023-07-12 00:00:00 2023-07-12 00:00:00 Outpatient GC_GCBZW_Ka diyala_S PRIV PRIV [id number] [facility] 2023-06-25 00:00:00 2023-06-25 00:00:00 Outpatient GC_GCBZW_Ka diyala_S PRIV PRIV [id number] [facility] 2023-06-23 00:00:00 2023-06-23 00:00:00 Telephone Petrona Burnette [facility] 1.2.840.114 350.1.13.10 4.2.7.2.686 [id number] [facility] 2023-06-21 22:13:00 2023-06-22 02:04:00 Emergency X CHRISTINA LOU [facility] ERT [id number] [facility] 2023-06-21 22:13:00 2023-06-22 02:04:00 Emergency Christina Lou [facility] .2.840.114 350.1.13.10 4.2.7.2.686 [id number] [facility] 2023-06-19 13:21:09 2023-06-19 13:21:09 Outpatient SFA [facility] [id number] Toney Renner 2023-06-18 17:26:11 2023-06-18 17:26:11 Outpatient [facility] [id number] Toney Cowan Zurdo 2023-06-17 00:00:00 2023-06-17 00:00:00 Telephone Vasile, [facility] 1.2.840.114 350.1.13.10 4.2.7.2.686 [id number] [facility] 2023-06-16 13:40:00 2023-06-16 13:44:41 Outpatient R VASILE [facility] [id number] [facility] 2023-06-16 13:40:00 2023-06-16 13:44:41 Office Visit Vasile [facility] 1.2.840.114 350.1.13.10 4.2.7.2.686 [id number] [facility] 2023-06-01 18:27:00 2023-06-02 00:35:00 Emergency X BETSEY BOSS [facility] ERT [id number] [facility] 2023-06-01 18:27:00 2023-06-02 00:35:00 Emergency JuliusBetsey herrera G [facility] 1.2840.114 350.1.13.10 4.2.7.2.686 [id number] [facility] 2023-06-02 00:00:00 2023-06-02 00:00:00 Outpatient GC_GCBZW_Ka diyala_S PRIV [facility] [id number] [facility] 2023-05-10 01:24:00 2023-05-12 11:58:00 Inpatient ER [facility] [id number] [facility] 2023-05-11 00:00:00 2023-05-11 00:00:00 Orders Only Doctor Unassigned, [place] [facility] 1.2.840.114 350.1.13.10 4.2.7.2.686 [id number] [facility] 2023-05-09 21:32:00 2023-05-09 21:32:00 Emergency ER TANNER VAZ [facility] [id number] [facility] 2023-05-09 00:00:00 2023-05-09 00:00:00 Outpatient GC_GCBZW_Ka diyala_S [facility] [id number] [facility] 2023-05-02 14:05:53 2023-05-02 14:05:53 Outpatient SFA [facility] [id number] Toney Renner 2023-04-28 10:00:00 2023-04-28 10:00:00 Outpatient SHANE AGUERO [facility] [id number] [facility] 2023-03-23 09:38:00 2023-03-23 13:02:00 Emergency ER MONA MOSS [facility] [id number] [facility] 2023-03-23 09:38:00 2023-03-23 13:02:00 emergency [id number] -843c-ca8 [id number] [id number]-843 c-[id number] [id number] 2023-03-11 19:23:00 2023-03-12 00:12:00 Emergency X SOLOMON MILLAN [facility] ERT [id number] [facility] 2023-03-11 19:23:00 2023-03-12 00:12:00 Emergency EmmanuelutMarlant J [facility] 1.2.840.114 350.1.13.10 4.2.7.2.686 [id number] [facility] 2023-02-20 09:20:00 2023-02-20 09:20:00 Outpatient ALICIA MENDOZA [facility] [id number] [facility] 2023-01-23 15:27:35 2023-01-23 15:27:35 Outpatient SFA SFA [id number] Toney Renner 2023-01-23 08:40:00 2023-01-23 08:40:00 Outpatient R ALICIA FARRELL [facility] [id number] [facility] 2022-12-19 13:20:00 2022-12-19 13:49:10 Outpatient R PETRONA BURNETTE [facility] [id number] [facility] 2022-12-19 13:20:00 2022-12-19 13:49:10 Office Visit Vasile [facility] 1.2840.114 350.1.13.10 4.2.7.2.686 [id number] [facility] 2022-12-19 00:00:00 2022-12-19 00:00:00 Orders Only Doctor Unassigned, [place] [facility] 1.2840.114 350.1.13.10 4.2.7.2.686 [id number] [facility] 2022-11-21 06:14:00 2022-11-21 12:27:00 Outpatient R VASILE [facility] [id number] [facility] 2022-11-21 06:14:00 2022-11-21 12:27:00 Hospital Encounter [facility] 1.2840.114 350.1.13.10 4.2.7.2.686 [id number] [facility] 2022-11-21 07:10:00 2022-11-21 09:10:00 Surgery Pretty Pizarro [facility] 1.2840.114 350.1.13.10 4.2.7.2.686 [id number] [facility] 2022-11-21 00:00:00 2022-11-21 00:00:00 Orders Only Doctor Unassigned, [place] [facility] 1.2840.114 350.1.13.10 4.2.7.2.686 [id number] [facility] 2022-11-13 13:55:43 2022-11-13 13:55:43 Outpatient SFA JESI [id number] Toney Renner 2022-11-13 00:00:00 2022-11-13 00:00:00 Outpatient Visit [id number]- 0u1w-9r96 -s780-254 [id number] fs27m3p5-2 s9i-1g31-z [id number] 03f8b5 2022-11-07 13:40:00 2022-11-07 13:48:05 Outpatient R VASILE [facility] [id number] [facility] 2022-11-07 13:40:00 2022-11-07 13:48:05 Office Visit Vasile [facility] 1.840.114 350.1.13.10 4.2.7.2.686 [id number] [facility] 2022-11-07 00:00:00 2022-11-07 00:00:00 Orders Only Doctor Unassigned, [place] [facility] 1.2840.114 350.1.13.10 4.2.7.2.686 [id number] [facility] 2022-10-29 13:00:00 2022-10-29 13:00:00 [facility] [id number] [facility] 2022-10-28 00:00:00 2022-10-28 00:00:00 Telephone Unassigned, Cath/Ep [facility] 1.840.114 350.1.13.10 4.2.7.2.686 [id number] [facility] 2022-10-27 11:59:00 2022-10-27 14:26:00 Emergency X MAGGI CALLOWAY [facility] ERT [id number] [facility] 2022-10-27 11:59:00 2022-10-27 14:26:00 Emergency Maggi Calloway [facility] 1.2.840.114 350.1.13.10 4.2.7.2.686 [id number] [facility] 2022-10-10 11:07:36 2022-10-10 11:07:36 Outpatient SFA JESI [id number] Toney Renner 2022-10-10 00:00:00 2022-10-10 00:00:00 Outpatient Visit [id number]- 31k5-77ec -afcf-58a [id number] j0b3107m-4 2g3-27nx-x fcf-58a1a7 4ro329 2022-09-05 00:00:00 2022-09-05 00:00:00 Outpatient Visit [id number]- s020-6l6a -3y59-r58 [id number] rc596w93-w 958-4c8f-8 z22-p69410 1067e8 2022-09-03 11:00:00 2022-09-03 11:16:40 Outpatient R PETRONA BURNETTE [facility] [id number] [facility] 2022-09-03 11:00:00 2022-09-03 11:16:40 [facility] 1.2.840.114 350.1.13.10 4.2.7.2.686 [id number] [facility] 2022-08-13 00:00:00 2022-08-13 00:00:00 Outpatient Visit [id number] ez7s-3o2n -88ca-354 u4l2dbl7j [id number]-m h2f-1b9o-8 8ca-354d7f 0bbe2b 2022-08-13 00:00:00 2022-08-13 00:00:00 [facility] 1.2.840.114 350.1.13.10 4.2.7.2.686 [id number] [facility] 2022-08-08 10:46:11 2022-08-08 23:59:00 Hospital Encounter Vasile [facility] 1.2.840.114 350.1.13.10 4.2.7.2.686 [id number] [facility] 2022-08-08 10:45:57 2022-08-08 10:45:57 Hospital Encounter Vasile [facility] 1.2.840.114 350.1.13.10 4.2.7.2.686 [id number] [facility] 2022-08-08 10:45:44 2022-08-08 10:45:44 Hospital Encounter Vasile [facility] 1.2.840.114 350.1.13.10 4.2.7.2.686 [id number] [facility] 2022-08-08 10:45:30 2022-08-08 10:45:30 Outpatient R VASILE [facility] [id number] [facility] 2022-08-08 10:45:30 2022-08-08 10:45:30 Hospital Encounter Vasile [facility] 1.2.840.114 350.1.13.10 4.2.7.2.686 [id number] [facility] 2022-08-06 11:20:00 2022-08-06 12:00:00 [facility] 1.2.840.114 350.1.13.10 4.2.7.2.686 [id number] [facility] 2022-08-06 11:20:00 2022-08-06 11:20:00 Outpatient R ROYERMarshall LILA [facility] [id number] [facility] 2022-08-05 00:00:00 2022-08-05 00:00:00 Outpatient R PETRONA BURNETTE [facility] [id number] [facility] 2022-08-05 00:00:00 2022-08-05 00:00:00 Transition of Care Lisette PeckMarshall SLAUGHTER 1.2.840.114 350.1.13.10 4.2.7.2.686 [id number] [facility] 2022-08-03 10:23:13 2022-08-03 10:23:13 Outpatient SFA [facility] [id number] Toney Cowan Zurdo 2022-07-30 10:09:00 2022-08-02 14:14:00 Outpatient KARTHIK MENDES [facility] [id number] [facility] 2022-07-30 10:09:00 2022-08-02 14:14:00 Emergency Destiney Blair David Abdullah Karthik [facility] 1..840.114 350.1.13.10 4.2.7.2.686 [id number] [facility] 2022-08-02 00:00:00 2022-08-02 00:00:00 [facility] 1..840.114 350.1.13.10 4.2.7.2.686 [id number] [facility] 2022-07-18 00:00:00 2022-07-18 00:00:00 Outpatient Visit [id number] l3oo-2242 -943b-134 zw5g50tsx [id number] 4cb-4854-9 43b-134aa4 f61cef 2022-06-06 00:00:2022-06-06 00:00:00 Outpatient Visit [id number]- 5mj9-87c7 -8693-62f 05u8t2imp [id number] x328xk23-9 eb2-45b9-8 693-62f03e 2f1fbe 2022-05-30 00:00:00 2022-05-30 00:00:00 Outpatient Visit [id number]- 98e5-2595 -6y11-1bn 10x25jjc2 [id number] 50s402i7-1 1w3-3810-6 j25-0jr63u 94acf2 2022-05-14 00:00:00 2022-05-14 00:00:00 Outpatient Visit yroi0nus- l6pw-0851 -j47e-g53 [id number] [id number] qthp8lfj-s 0ed-4477-b 77d-a664a2 437c55 2022-05-02 00:00:00 2022-05-02 00:00:00 Outpatient Visit [id number]- f710-58yt -89n3-195 9zp41035c [id number] 53w18488-[id number] 487-49ce-8 7x4-7048wt 62412d 2021-12-20 00:00:00 2021-12-20 00:00:00 Outpatient R PETRONA BURNETTE [facility] [id number] [facility] 2021-11-23 00:00:00 2021-11-23 00:00:00 [facility] 1.2.840.114 350.1.13.10 4.2.7.2.686 [id number] [facility] 2021-11-05 14:58:39 2021-11-05 23:59:00 Outpatient R BHAVESH BURNETTEANNE MARIESRIDHAR [facility] [id number] [facility] 2021-11-05 14:58:39 2021-11-05 23:59:00 Hospital Encounter [place] [address].2.840.114 350.1.13.10 4.2.7.2.686 [id number] [facility] 2021-10-29 15:40:00 2021-10-29 16:06:16 Outpatient PETRONA LAIRD [facility] [id number] [facility] 2021-10-09 00:00:00 2021-10-09 00:00:00 Orders Only Doctor Unassigned, [place] [facility] 1.2.840.114 350.1.13.10 4.2.7.2.686 [id number] [facility] Results Test Description Test Time Test Comments Results Result Co mments Source CULTURE, URINE 2024-09-08 10:43:00 SPECIMEN NUMBER: [id number] CULTURE, URINE SPECIMEN NUMBER: [id number] SOURCE: URINE REPORT STATUS: FINAL FINAL REPORT: 09/08/2024 NO SPECIMEN RECEIVED FOR TESTING. CHARGES DELETED. Toney Cowan AustinHEMOGLOBIN [id number] 21:40:28* Test Item Value Reference Range Interpretation Comme [facility] HEMOGLOBIN A1c (test code = 98554) 9.2 % 4.2-5.6 H CITIZEN OF [employer] GUIDELINES FOR HGB A1C: [...] ETC.). CONSIDER ALTERNATE TESTING OR LABORATORY CONSULTATION. COMPREHENSIVE METABOLIC [id number] 06:52:05* Test Item Value Reference Range Interpretation Comme nts GLUCOSE (test code = 2217) 206 MG/DL 70-99 H BUN (test code = 2208) 16 MG/DL 8-23 CREATININE (test code = 2214) 0.53 MG/DL 0.60-1.30 L eGFR (2020 CKD-EPI) (test co de = 19526) 98 ML/MIN/1.73 >60 CALC BUN/CREAT (test code = 2235) 30 RATIO 6-28 H SODIUM (test code = 2231) 144 MEQ/L 133-146 POTASSIUM (test code = 2228) 4.9 MEQ/L 3.5-5.4 CHLORIDE (test code = 2215) 102 MEQ/L 95-107 CARBON DIOXIDE (test code = 2206) 24 MEQ/L 19-31 CALCIUM (test code = 2209) 10.6 MG/DL 8.5-10.5 H PROTEIN, TOTAL (test code = 222) 8.0 G/DL 6.1-8.3 ALBUMIN (test code = 220) 4.5 G/DL 3.5-5.2 CALC GLOBULIN (test code = 2240) 3.5 G/DL 1.9-3.7 CALC A/G RATIO (test code = 223) 1.3 RATIO 1.0-2.6 BILIRUBIN, TOTAL (test code = 2206) 0.5 MG/DL <=1.2 ALKALINE PHOSPHATASE (test code = 2203) 100 U/L 40-142 AST (test code = 221) 25 U/L 9-40 ALT (test code = 221) 24 U/L 5-40 LIPID [id number] 06:52:05* Test Item Value Reference Range Interpretation Comme nts CHOLESTEROL (test code = 2210) 156 MG/DL <200 TRIGLYCERIDES (test code = 2232) 105 MG/DL <150 HDL CHOLESTEROL (test code = 2220) 55 MG/DL >39 CALC LDL CHOL (test code = 2237) 81 MG/DL <100 NOTE: CALCULATED LDL IS BASED ON SANDRA-TELLO METHOD WHICHINCLUDES ADJUSTABLE TRIGLYCERIDE:VLDL CHOLESTEROL RATIO.THIS FACTOR VARIES BY MEASURED TRIGLYCERIDE AND NON-HDLCHOLESTEROL CONCENTRATIONS WITH INCREASED CALCULATED LDL SEENIN HIGHER TRIGLYCERIDE OR LOWER NON-HDL SPECIMENS. FOR MOREINFORMATION, SEE CLIENT ANNOUNCEMENT AT [email or web address] RISK RATIO LDL/HDL (test code = 2238) 1.47 RATIO <3.22 UNLESS OTHERW ISE INDICATED, ALL TESTING PERFORMED AT [facility] [address] [place] [id number] [employer] F[employer]RIC[employer] OPERATOR: LILA SHANNON M.D. CLIA NUMBER [id number] [place]. [id number] SEDIMENTATION [id number] 04:12:31* Test Item Value Reference Range Interpretation Comme nts SEDIMENTATION RATE (test cod e = 1017) 10 MM/HOUR 0-20 HEMOGLOBIN [id number] 00:00:00* Test Item Value Reference Range Interpretation Comme nts HEMOGLOBIN A1c (test code = 67216) 9.2 % Toney RennerCOMPREHENSIVE METABOLIC [id number] 00:00:00* Test Item Value Reference Range Interpretation Comme nts GLUCOSE (test code = 2217) 206 MG/DL BUN (test code = 2208) 16 MG/DL CREATININE (test code = 2214) 0.53 MG/DL eGFR (2020 CKD-EPI) (test co de = 51028) 98 ML/MIN/1.73 CALC BUN/CREAT (test code = 2235) 30 RATIO SODIUM (test code = 2231) 144 MEQ/L POTASSIUM (test code = 2228) 4.9 MEQ/L CHLORIDE (test code = 2215) 102 MEQ/L CARBON DIOXIDE (test code = 2206) 24 MEQ/L CALCIUM (test code = 2209) 10.6 MG/DL PROTEIN, TOTAL (test code = 2229) 8.0 G/DL ALBUMIN (test code = 2201) 4.5 G/DL CALC GLOBULIN (test code = 2240) 3.5 G/DL CALC A/G RATIO (test code = 2234) 1.3 RATIO BILIRUBIN, TOTAL (test code = 2207) 0.5 MG/DL ALKALINE PHOSPHATASE (test code = 2204) 100 U/L AST (test code = 2218) 25 U/L ALT (test code = 2219) 24 U/L Toney RennerSEDIMENTATION [id number] 00:00:00* Test Item Value Reference Range Interpretation Comme nts SEDIMENTATION RATE (test cod e = 1017) 10 MM/HOUR Toney RennerLIPID [id number] 00:00:00* Test Item Value Reference Range Interpretation Comme nts CHOLESTEROL (test code = 2210) 156 MG/DL TRIGLYCERIDES (test code = 2232) 105 MG/DL HDL CHOLESTEROL (test code = 2220) 55 MG/DL CALC LDL CHOL (test code = 2237) 81 MG/DL RISK RATIO LDL/HDL (test cod e = 2238) 1.47 RATIO Toney RennerCULTURE, [id number] 09:36:40SPECIMEN NUMBER: [id number] CULTURE, URINE SPECIMEN NUMBER: [id number] SOURCE: URINE REPORT STATUS: FINAL FINAL REPORT: 07/04/2024 <10,000 CFU/ML UROGENITAL WOLF PRESENT NO COMMON PATHOGENS UNLESS OTHERWISE INDICATED, ALL TESTING PERFORMED AT [facility] [address] [place] [address] WATER FABRICATOR OPERATOR: LILA SHANNON M.D. [place] NUMBER [id number] [facility] [place]. [id number] CULTURE, [id number] 00:00:00* Test Item Value Reference Range Interpretation Comme nts CULTURE, URINE (test code = 01306) SPECIMEN NUMBER: [id number] Toney RennerCULTURE, [id number] 00:00:00* Test Item Value Reference Range Interpretation Comme nts CULTURE, URINE (test code = 44537) SPECIMEN NUMBER: [id number] Toney MarcusLTURE, [id number] 00:00:00* Test Item Value Reference Range Interpretation Comme nts CULTURE, URINE (test code = 33107) SPECIMEN NUMBER: [id number] Toney MarcusLTURE, [id number] 00:00:00* Test Item Value Reference Range Interpretation Comme nts CULTURE, URINE (test code = 42334) SPECIMEN NUMBER: [id number] Toney RennerL. PNEUMOPHILA [id number] 22:19:23* Test Item Value Reference Range Interpretation Comme nts L. PNEUMOPHILA ANTIBODIES (test code = 2496) 1.53 IV <=0.90 H REFERENCE INTERV AL: L. pneumophila (Types 1-6), AntibodiesLess than or equal to 0.90 IV:............Negative - No significant amount of IgG/IgM/IgA antibodies to L. pneumophila detected.0.91 to 1.09 IV:..................... .....Equivocal - Recommend repeat testing in 1-3 weeks with fresh sample.Greater than or equal to 1.10 IV:.........Positive - IgG/IgM/IgA antibodies specific to L. pneumophila suggesting current or prior infection. A positive result cannot distinguish between previous or active infection, therefore this result alone cannot be used to establish a diagnosis. TESTING PERFORMED AT [facility] [address], [place] [address] [place]. [id number] CLIA NO. [id number] UNLESS OTHERWISE INDICATED, ALL TESTING PERFORMED AT [facility] [address] [place] [address] WATER FABRICATOR OPERATOR: LILA SHANNON M.D. CLIA NUMBER [id number] [place] [id number] L. PNEUMOPHILA [id number] 00:00:00* Test Item Value Reference Range Interpretation Comme nts L. PNEUMOPHILA ANTIBODIES (t est code = 2496) 1.53 IV Toney Cowan AustinL. PNEUMOPHILA [id number] 00:00:00* Test Item Value Reference Range Interpretation Comme nts L. PNEUMOPHILA ANTIBODIES (t est code = 2496) 1.53 IV Toney Cowan AustinL. PNEUMOPHILA [id number] 00:00:00* Test Item Value Reference Range Interpretation Comme nts L. PNEUMOPHILA ANTIBODIES (t est code = 2496) 1.53 IV Toney Cowan AustinL. PNEUMOPHILA [id number] 00:00:00* Test Item Value Reference Range Interpretation Comme nts L. PNEUMOPHILA ANTIBODIES (t est code = 2496) 1.53 IV Toney Cowan AustinL. PNEUMOPHILA [id number] 00:00:00* Test Item Value Reference Range Interpretation Comme nts L. PNEUMOPHILA ANTIBODIES (t est code = 2496) 1.53 IV Toney RennerANA (ANTI-NUCLEAR AB) WITH REFLEX [id number] 06:09:28* Test Item Value Reference Range Interpretation Comme nts ANTI-NUCLEAR ANTIBODIES (test code = 3506) NEGATIVE NEGATIVE Methodology is I ndirect Immunofluorescent Assay (IFA) with a titering system using [id number] cells (Hep2 cells transfected with SS-A/Ro). RENEE PATTERN (REPORTED TITER) (test code = 98948) SEE BELOW HOMOGENEOUS (test code = 60136) NEGATIVE TITER NEGATIVE SPECKLED (test code = 271580) NEGATIVE TITER NEGATIVE DENSE FINE SPECKLED (test code = 09805) NEGATIVE TITER NEGATIVE CENTROMERE (test code = 106388) NEGATIVE TITER NEGATIVE COARSE SPECKLED (test code = 997030) NEGATIVE TITER NEGATIVE DISCRETE NUCLEAR DOTS (test code = 544894) NEGATIVE TITER NEGATIVE NUCLEOLAR (test code = 356236) NEGATIVE TITER NEGATIVE NUCLEAR MEMBRANE (test code = 819949) NEGATIVE TITER NEGATIVE CYTO. RETICULAR (TIANNA) (test code = 752377) NEGATIVE NEGATIVE COMMENTS (test code = 991695) NONE METHOD (test code = 78114) (NOTE) TESTING PERFORME D BY [employer] IFA PLATFORM.THE METHOD INCLUDES A SCREEN THRESHOLD OF 1:80, DIGITIZED AND COMPUTER ALGORITHM-ASSISTED INTERPRETATION OF TITERS AND DIGITAL PATTERNS, AND HEp-2 CELL LINE SUBSTRATE. ADDITIONAL UNUSUAL PATTERNS WILL BE GIVEN COMMENTS.FOR MORE INFORMATION, SEE [email or web address] ting RENEE REFLEX NUCLEAR AB [id number] 06:09:28* Test Item Value Reference Range Interpretation Comme nts ANTI-NUCLEAR ANTIBODIES (test code = 3506) NEGATIVE NEGATIVE Methodology is I ndirect Immunofluorescent Assay (IFA) with a titering system using [id number] cells (Hep2 cells transfected with SS-A/Ro). RENEE PATTERN (REPORTED TITER) (test code = 32921) SEE BELOW HOMOGENEOUS (test code = 31054) NEGATIVE TITER NEGATIVE SPECKLED (test code = 925503) NEGATIVE TITER NEGATIVE DENSE FINE SPECKLED (test code = 80066) NEGATIVE TITER NEGATIVE CENTROMERE (test code = 990578) NEGATIVE TITER NEGATIVE COARSE SPECKLED (test code = 230059) NEGATIVE TITER NEGATIVE DISCRETE NUCLEAR DOTS (test code = 391641) NEGATIVE TITER NEGATIVE NUCLEOLAR (test code = 888813) NEGATIVE TITER NEGATIVE NUCLEAR MEMBRANE (test code = 262476) NEGATIVE TITER NEGATIVE CYTO. RETICULAR (TIANNA) (test code = 999455) NEGATIVE NEGATIVE COMMENTS (test code = 879635) NONE METHOD (test code = 54789) (NOTE) TESTING PERFORME D BY [employer] IFA PLATFORM.THE METHOD INCLUDES A SCREEN THRESHOLD OF 1:80, DIGITIZED AND COMPUTER ALGORITHM-ASSISTED INTERPRETATION OF TITERS AND DIGITAL PATTERNS, AND HEp-2 CELL LINE SUBSTRATE. ADDITIONAL UNUSUAL PATTERNS WILL BE GIVEN COMMENTS.FOR MORE INFORMATION, SEE [email or web address] ting RENEE (ANTI-NUCLEAR AB) WITH REFLEX [id number] 00:00:00* Test Item Value Reference Range Interpretation Comme nts ANTI-NUCLEAR ANTIBODIES (baljinder t code = 3506) NEGATIVE RENEE PATTERN (REPORTED TITER) (test code = 18498) SEE BELOW HOMOGENEOUS (test code = 59049) NEGATIVE TITER SPECKLED (test code = 568292) NEGATIVE TITER DENSE FINE SPECKLED (test co de = 89599) NEGATIVE TITER CENTROMERE (test code = 156180) NEGATIVE TITER COARSE SPECKLED (test code = 074122) NEGATIVE TITER DISCRETE NUCLEAR DOTS (test code = 629278) NEGATIVE TITER NUCLEOLAR (test code = 593576) NEGATIVE TITER NUCLEAR MEMBRANE (test code = 819047) NEGATIVE TITER CYTO. RETICULAR (TIANNA) (test code = 863384) NEGATIVE COMMENTS (test code = 550736) NONE METHOD (test code = 30700) (NOTE) Toney Mancilla REFLEX NUCLEAR AB [id number] 00:00:00* Test Item Value Reference Range Interpretation Comme nts ANTI-NUCLEAR ANTIBODIES (baljinder t code = 3506) NEGATIVE RENEE PATTERN (REPORTED TITER) (test code = 74615) SEE BELOW HOMOGENEOUS (test code = 73112) NEGATIVE TITER SPECKLED (test code = 907899) NEGATIVE TITER DENSE FINE SPECKLED (test co de = 26961) NEGATIVE TITER CENTROMERE (test code = 566519) NEGATIVE TITER COARSE SPECKLED (test code = 433067) NEGATIVE TITER DISCRETE NUCLEAR DOTS (test code = 631846) NEGATIVE TITER NUCLEOLAR (test code = 330765) NEGATIVE TITER NUCLEAR MEMBRANE (test code = 321299) NEGATIVE TITER CYTO. RETICULAR (TIANNA) (test code = 680871) NEGATIVE COMMENTS (test code = 179175) NONE METHOD (test code = 13082) (NOTE) Toney Mancilla (ANTI-NUCLEAR AB) WITH REFLEX [id number] 00:00:00* Test Item Value Reference Range Interpretation Comme nts ANTI-NUCLEAR ANTIBODIES (baljinder t code = 3506) NEGATIVE RENEE PATTERN (REPORTED TITER) (test code = 30627) SEE BELOW HOMOGENEOUS (test code = 60771) NEGATIVE TITER SPECKLED (test code = 888673) NEGATIVE TITER DENSE FINE SPECKLED (test co de = 27644) NEGATIVE TITER CENTROMERE (test code = 435143) NEGATIVE TITER COARSE SPECKLED (test code = 177232) NEGATIVE TITER DISCRETE NUCLEAR DOTS (test code = 550897) NEGATIVE TITER NUCLEOLAR (test code = 306952) NEGATIVE TITER NUCLEAR MEMBRANE (test code = 123271) NEGATIVE TITER CYTO. RETICULAR (TIANNA) (test code = 519884) NEGATIVE COMMENTS (test code = 877224) NONE METHOD (test code = 57822) (NOTE) Toney Mancilla REFLEX NUCLEAR AB [id number] 00:00:00* Test Item Value Reference Range Interpretation Comme nts ANTI-NUCLEAR ANTIBODIES (baljinder t code = 3506) NEGATIVE RENEE PATTERN (REPORTED TITER) (test code = 11826) SEE BELOW HOMOGENEOUS (test code = 75060) NEGATIVE TITER SPECKLED (test code = 120311) NEGATIVE TITER DENSE FINE SPECKLED (test co de = 41286) NEGATIVE TITER CENTROMERE (test code = 793667) NEGATIVE TITER COARSE SPECKLED (test code = 686072) NEGATIVE TITER DISCRETE NUCLEAR DOTS (test code = 662706) NEGATIVE TITER NUCLEOLAR (test code = 153056) NEGATIVE TITER NUCLEAR MEMBRANE (test code = 749566) NEGATIVE TITER CYTO. RETICULAR (TIANNA) (test code = 123931) NEGATIVE COMMENTS (test code = 232346) NONE METHOD (test code = 55871) (NOTE) Toney Mancilla (ANTI-NUCLEAR AB) WITH REFLEX [id number] 00:00:00* Test Item Value Reference Range Interpretation Comme nts ANTI-NUCLEAR ANTIBODIES (baljinder t code = 3506) NEGATIVE RENEE PATTERN (REPORTED TITER) (test code = 78306) SEE BELOW HOMOGENEOUS (test code = 01005) NEGATIVE TITER SPECKLED (test code = 330572) NEGATIVE TITER DENSE FINE SPECKLED (test co de = 22975) NEGATIVE TITER CENTROMERE (test code = 946850) NEGATIVE TITER COARSE SPECKLED (test code = 763253) NEGATIVE TITER DISCRETE NUCLEAR DOTS (test code = 776082) NEGATIVE TITER NUCLEOLAR (test code = 159790) NEGATIVE TITER NUCLEAR MEMBRANE (test code = 740724) NEGATIVE TITER CYTO. RETICULAR (TIANNA) (test code = 824698) NEGATIVE COMMENTS (test code = 650017) NONE METHOD (test code = 98255) (NOTE) Toney Mancilla REFLEX NUCLEAR AB [id number] 00:00:00* Test Item Value Reference Range Interpretation Comme nts ANTI-NUCLEAR ANTIBODIES (baljinder t code = 3506) NEGATIVE RENEE PATTERN (REPORTED TITER) (test code = 99535) SEE BELOW HOMOGENEOUS (test code = 18593) NEGATIVE TITER SPECKLED (test code = 507677) NEGATIVE TITER DENSE FINE SPECKLED (test co de = 00067) NEGATIVE TITER CENTROMERE (test code = 357409) NEGATIVE TITER COARSE SPECKLED (test code = 344573) NEGATIVE TITER DISCRETE NUCLEAR DOTS (test code = 595406) NEGATIVE TITER NUCLEOLAR (test code = 977512) NEGATIVE TITER NUCLEAR MEMBRANE (test code = 963248) NEGATIVE TITER CYTO. RETICULAR (TIANNA) (test code = 749680) NEGATIVE COMMENTS (test code = 398292) NONE METHOD (test code = 66326) (NOTE) Toney Cowan Charo (ANTI-NUCLEAR AB) WITH REFLEX [id number] 00:00:00* Test Item Value Reference Range Interpretation Comme nts ANTI-NUCLEAR ANTIBODIES (baljinder t code = 3506) NEGATIVE RENEE PATTERN (REPORTED TITER) (test code = 62172) SEE BELOW HOMOGENEOUS (test code = 82500) NEGATIVE TITER SPECKLED (test code = 456853) NEGATIVE TITER DENSE FINE SPECKLED (test co de = 69255) NEGATIVE TITER CENTROMERE (test code = 355394) NEGATIVE TITER COARSE SPECKLED (test code = 536152) NEGATIVE TITER DISCRETE NUCLEAR DOTS (test code = 389467) NEGATIVE TITER NUCLEOLAR (test code = 502513) NEGATIVE TITER NUCLEAR MEMBRANE (test code = 135335) NEGATIVE TITER CYTO. RETICULAR (TIANNA) (test code = 661530) NEGATIVE COMMENTS (test code = 194864) NONE METHOD (test code = 76745) (NOTE) Toney Cowan Charo REFLEX NUCLEAR AB [id number] 00:00:00* Test Item Value Reference Range Interpretation Comme nts ANTI-NUCLEAR ANTIBODIES (baljinder t code = 3506) NEGATIVE RENEE PATTERN (REPORTED TITER) (test code = 97047) SEE BELOW HOMOGENEOUS (test code = 97665) NEGATIVE TITER SPECKLED (test code = 531217) NEGATIVE TITER DENSE FINE SPECKLED (test co de = 11552) NEGATIVE TITER CENTROMERE (test code = 718545) NEGATIVE TITER COARSE SPECKLED (test code = 909150) NEGATIVE TITER DISCRETE NUCLEAR DOTS (test code = 685291) NEGATIVE TITER NUCLEOLAR (test code = 267851) NEGATIVE TITER NUCLEAR MEMBRANE (test code = 944857) NEGATIVE TITER CYTO. RETICULAR (TIANNA) (test code = 215120) NEGATIVE COMMENTS (test code = 352507) NONE METHOD (test code = 22982) (NOTE) Toney Cowan Charo (ANTI-NUCLEAR AB) WITH REFLEX [id number] 00:00:00* Test Item Value Reference Range Interpretation Comme nts ANTI-NUCLEAR ANTIBODIES (baljinder t code = 3506) NEGATIVE RENEE PATTERN (REPORTED TITER) (test code = 64391) SEE BELOW HOMOGENEOUS (test code = 73676) NEGATIVE TITER SPECKLED (test code = 714239) NEGATIVE TITER DENSE FINE SPECKLED (test co de = 98694) NEGATIVE TITER CENTROMERE (test code = 231303) NEGATIVE TITER COARSE SPECKLED (test code = 387671) NEGATIVE TITER DISCRETE NUCLEAR DOTS (test code = 598649) NEGATIVE TITER NUCLEOLAR (test code = 582511) NEGATIVE TITER NUCLEAR MEMBRANE (test code = 663996) NEGATIVE TITER CYTO. RETICULAR (TIANNA) (test code = 248444) NEGATIVE COMMENTS (test code = 325930) NONE METHOD (test code = 92098) (NOTE) Toney RennerANA REFLEX NUCLEAR AB [id number] 00:00:00* Test Item Value Reference Range Interpretation Comme nts ANTI-NUCLEAR ANTIBODIES (baljinder t code = 3506) NEGATIVE RENEE PATTERN (REPORTED TITER) (test code = 49926) SEE BELOW HOMOGENEOUS (test code = 33145) NEGATIVE TITER SPECKLED (test code = 093890) NEGATIVE TITER DENSE FINE SPECKLED (test co de = 08731) NEGATIVE TITER CENTROMERE (test code = 473633) NEGATIVE TITER COARSE SPECKLED (test code = 270463) NEGATIVE TITER DISCRETE NUCLEAR DOTS (test code = 255462) NEGATIVE TITER NUCLEOLAR (test code = 538022) NEGATIVE TITER NUCLEAR MEMBRANE (test code = 101488) NEGATIVE TITER CYTO. RETICULAR (TIANNA) (test code = 738776) NEGATIVE COMMENTS (test code = 626521) NONE METHOD (test code = 86428) (NOTE) Toney RennerAFP, TUMOR [id number] 00:06:26* Test Item Value Reference Range Interpretation Comme nts AFP, TUMOR MARKER (test code = 12989) 2.79 NG/ML <=8.30 AFP, TUMOR [id number] 00:00:00* Test Item Value Reference Range Interpretation Comme nts AFP, TUMOR MARKER (test code = 80917) 2.79 NG/ML Toney RennerAFP, TUMOR [id number] 00:00:00* Test Item Value Reference Range Interpretation Comme nts AFP, TUMOR MARKER (test code = 57879) 2.79 NG/ML Toney RennerAFP, TUMOR [id number] 00:00:00* Test Item Value Reference Range Interpretation Commmeliton goodrich AFP, TUMOR MARKER (test code = 43886) 2.79 NG/ML Toney RennerAFP, TUMOR [id number] 00:00:00* Test Item Value Reference Range Interpretation Commmeliton goodrich AFP, TUMOR MARKER (test code = 09403) 2.79 NG/ML Toney RennerAFP, TUMOR [id number] 00:00:00* Test Item Value Reference Range Interpretation Commmeliton goodrich AFP, TUMOR MARKER (test code = 46618) 2.79 NG/ML Toney RennerHEPATIC FUNCTION [id number] 23:37:44* Test Item Value Reference Range Interpretation Comme katty PROTEIN, TOTAL (test code = 2229) 7.1 G/DL 6.1-8.3 ALBUMIN (test code = 2201) 4.2 G/DL 3.5-5.2 BILIRUBIN, TOTAL (test code = 220) 0.6 MG/DL <=1.2 BILIRUBIN, DIRECT (test code = 202) 0.1 MG/DL 0.0-0.3 ALKALINE PHOSPHATASE (test c ode = 2204) 85 U/L 40-142 AST (test code = 2218) 23 U/L 9-40 ALT (test code = 2219) 21 U/L 5-40 [id number] 23:37:44* Test Item Value Reference Range Interpretation Comme katty ALT (test code = 2219) 21 U/L 5-40 HEMOGLOBIN [id number] 02:59:32* Test Item Value Reference Range Interpretation Commmeliton goodrich HEMOGLOBIN A1c (test code = 75855) 8.4 % 4.2-5.6 H CITIZEN OF [employer] GUIDELINES FOR HGB A1C: [...] OR LABORATORY CONSULTATION. CBC W/AUTO DIFF WITH [id number] 01:35:10* Test Item Value Reference Range Interpretation Comme nts WBC (test code = 1001) 7.7 K/UL 3.5-11.0 RBC (test code = 1002) 4.34 M/UL 3.80-5.40 HEMOGLOBIN (test code = 1003) 13.0 G/DL 11.5-15.5 HEMATOCRIT (test code = 1004) 39.8 % 34.0-45.0 MCV (test code = 1005) 91.7 fL 80.0-99.0 MCH (test code = 1006) 30.0 PG 25.0-33.0 MCHC (test code = 1007) 32.7 G/DL 31.0-36.0 RDW (test code = 1038) 13.6 % 11.5-15.0 NEUTROPHILS (test code = 1008) 50.9 % LYMPHOCYTES (test code = 1010) 40.8 % MONOCYTES (test code = 1011) 6.0 % EOSINOPHILS (test code = 1012) 1.6 % BASOPHILS (test code = 1013) 0.6 % IMMATURE GRANULOCYTES (test code = 1036) 0.1 % NUCLEATED RBCS (test code = 1065) 0.0 /100 WBC'S See_Comment [Automated messa ge] The system which generated this result transmitted reference range: 0.0. The reference range was not used to interpret this result as normal/abnormal. PLATELET COUNT (test code = 1015) 236 K/UL 130-400 ABSOLUTE NEUTROPHILS (test code = 1066) 3.92 K/UL 1.50-7.50 ABSOLUTE LYMPHOCYTES (test code = 1067) 3.14 K/UL 1.00-4.00 ABSOLUTE MONOCYTES (test code = 1068) 0.46 K/UL 0.20-1.00 ABSOLUTE EOSINOPHILS (test code = 1040) 0.12 K/UL 0.00-0.50 ABSOLUTE BASOPHILS (test code = 1069) 0.05 K/UL 0.00-0.20 ABS IMMATURE GRANULOCYTES (test code = 1020) 0.01 K/UL 0.00-0.10 ABS NUCLEATED RBCS (test code = 60653) 0.00 K/UL 0.00-0.11 LIVER (HEPATIC) FUNCTION [id number] 00:00:00* Test Item Value Reference Range Interpretation Comme nts PROTEIN, TOTAL (test code = 2229) 7.1 G/DL ALBUMIN (test code = 2201) 4.2 G/DL BILIRUBIN, TOTAL (test code = 7) 0.6 MG/DL BILIRUBIN, DIRECT (test code = 2021) 0.1 MG/DL ALKALINE PHOSPHATASE (test c ode = 2204) 85 U/L AST (test code = 2218) 23 U/L ALT (test code = 2219) 21 U/L Toney RennerSGPT (ALT)2024-06-20 00:00:00* Test Item Value Reference Range Interpretation Comme nts ALT (test code = 2219) 21 U/L Toney RennerCBC W/AUTO [id number] 00:00:00* Test Item Value Reference Range Interpretation Comme nts WBC (test code = 1001) 7.7 K/UL RBC (test code = 1002) 4.34 M/UL HEMOGLOBIN (test code = 1003) 13.0 G/DL HEMATOCRIT (test code = 1004) 39.8 % MCV (test code = 1005) 91.7 fL MCH (test code = 1006) 30.0 PG MCHC (test code = 1007) 32.7 G/DL RDW (test code = 1038) 13.6 % NEUTROPHILS (test code = 1008) 50.9 % LYMPHOCYTES (test code = 1010) 40.8 % MONOCYTES (test code = 1011) 6.0 % EOSINOPHILS (test code = 1012) 1.6 % BASOPHILS (test code = 1013) 0.6 % IMMATURE GRANULOCYTES (test code = 1036) 0.1 % NUCLEATED RBCS (test code = 1065) 0.0 /100WBC'S PLATELET COUNT (test code = 1015) 236 K/UL ABSOLUTE NEUTROPHILS (test c ode = 1066) 3.92 K/UL ABSOLUTE LYMPHOCYTES (test c ode = 1067) 3.14 K/UL ABSOLUTE MONOCYTES (test cod e = 1068) 0.46 K/UL ABSOLUTE EOSINOPHILS (test c ode = 1040) 0.12 K/UL ABSOLUTE BASOPHILS (test cod e = 1069) 0.05 K/UL ABS IMMATURE GRANULOCYTES (t est code = 1020) 0.01 K/UL ABS NUCLEATED RBCS (test cod e = 36517) 0.00 K/UL Toney RennerHEMOGLOBIN [id number] 00:00:00* Test Item Value Reference Range Interpretation Comme nts HEMOGLOBIN A1c (test code = 56122) 8.4 % Toney RennerLIVER (HEPATIC) FUNCTION [id number] 00:00:00* Test Item Value Reference Range Interpretation Comme nts PROTEIN, TOTAL (test code = 2229) 7.1 G/DL ALBUMIN (test code = 2201) 4.2 G/DL BILIRUBIN, TOTAL (test code = 2207) 0.6 MG/DL BILIRUBIN, DIRECT (test code = 202) 0.1 MG/DL ALKALINE PHOSPHATASE (test c ode = 2204) 85 U/L AST (test code = 2218) 23 U/L ALT (test code = 2219) 21 U/L Toney RennerSGPT (ALT)2024-06-20 00:00:00* Test Item Value Reference Range Interpretation Comme nts ALT (test code = 2219) 21 U/L Toney RennerCBC W/AUTO [id number] 00:00:00* Test Item Value Reference Range Interpretation Comme nts WBC (test code = 1001) 7.7 K/UL RBC (test code = 1002) 4.34 M/UL HEMOGLOBIN (test code = 1003) 13.0 G/DL HEMATOCRIT (test code = 1004) 39.8 % MCV (test code = 1005) 91.7 fL MCH (test code = 1006) 30.0 PG MCHC (test code = 1007) 32.7 G/DL RDW (test code = 1038) 13.6 % NEUTROPHILS (test code = 1008) 50.9 % LYMPHOCYTES (test code = 1010) 40.8 % MONOCYTES (test code = 1011) 6.0 % EOSINOPHILS (test code = 1012) 1.6 % BASOPHILS (test code = 1013) 0.6 % IMMATURE GRANULOCYTES (test code = 1036) 0.1 % NUCLEATED RBCS (test code = 1065) 0.0 /100WBC'S PLATELET COUNT (test code = 1015) 236 K/UL ABSOLUTE NEUTROPHILS (test c ode = 1066) 3.92 K/UL ABSOLUTE LYMPHOCYTES (test c ode = 1067) 3.14 K/UL ABSOLUTE MONOCYTES (test cod e = 1068) 0.46 K/UL ABSOLUTE EOSINOPHILS (test c ode = 1040) 0.12 K/UL ABSOLUTE BASOPHILS (test cod e = 1069) 0.05 K/UL ABS IMMATURE GRANULOCYTES (t est code = 1020) 0.01 K/UL ABS NUCLEATED RBCS (test cod e = 92710) 0.00 K/UL Toney RennerHEMOGLOBIN [id number] 00:00:00* Test Item Value Reference Range Interpretation Comme nts HEMOGLOBIN A1c (test code = 44592) 8.4 % Toney RennerLIVER (HEPATIC) FUNCTION [id number] 00:00:00* Test Item Value Reference Range Interpretation Comme nts PROTEIN, TOTAL (test code = 2229) 7.1 G/DL ALBUMIN (test code = 2201) 4.2 G/DL BILIRUBIN, TOTAL (test code = 2207) 0.6 MG/DL BILIRUBIN, DIRECT (test code = 2022) 0.1 MG/DL ALKALINE PHOSPHATASE (test c ode = 2204) 85 U/L AST (test code = 2218) 23 U/L ALT (test code = 2219) 21 U/L Toney RennerSGPT (ALT)2024-06-20 00:00:00* Test Item Value Reference Range Interpretation Comme nts ALT (test code = 2219) 21 U/L Toney RennerCBC W/AUTO [id number] 00:00:00* Test Item Value Reference Range Interpretation Comme nts WBC (test code = 1001) 7.7 K/UL RBC (test code = 1002) 4.34 M/UL HEMOGLOBIN (test code = 1003) 13.0 G/DL HEMATOCRIT (test code = 1004) 39.8 % MCV (test code = 1005) 91.7 fL MCH (test code = 1006) 30.0 PG MCHC (test code = 1007) 32.7 G/DL RDW (test code = 1038) 13.6 % NEUTROPHILS (test code = 1008) 50.9 % LYMPHOCYTES (test code = 1010) 40.8 % MONOCYTES (test code = 1011) 6.0 % EOSINOPHILS (test code = 1012) 1.6 % BASOPHILS (test code = 1013) 0.6 % IMMATURE GRANULOCYTES (test code = 1036) 0.1 % NUCLEATED RBCS (test code = 1065) 0.0 /100WBC'S PLATELET COUNT (test code = 1015) 236 K/UL ABSOLUTE NEUTROPHILS (test c ode = 1066) 3.92 K/UL ABSOLUTE LYMPHOCYTES (test c ode = 1067) 3.14 K/UL ABSOLUTE MONOCYTES (test cod e = 1068) 0.46 K/UL ABSOLUTE EOSINOPHILS (test c ode = 1040) 0.12 K/UL ABSOLUTE BASOPHILS (test cod e = 1069) 0.05 K/UL ABS IMMATURE GRANULOCYTES (t est code = 1020) 0.01 K/UL ABS NUCLEATED RBCS (test cod e = 08805) 0.00 K/UL Toney RennerHEMOGLOBIN [id number] 00:00:00* Test Item Value Reference Range Interpretation Comme nts HEMOGLOBIN A1c (test code = 05536) 8.4 % Toney Cowan ZurdoLIVER (HEPATIC) FUNCTION [id number] 00:00:00* Test Item Value Reference Range Interpretation Comme nts PROTEIN, TOTAL (test code = 2229) 7.1 G/DL ALBUMIN (test code = 2201) 4.2 G/DL BILIRUBIN, TOTAL (test code = 2207) 0.6 MG/DL BILIRUBIN, DIRECT (test code = 2022) 0.1 MG/DL ALKALINE PHOSPHATASE (test c ode = 2204) 85 U/L AST (test code = 2218) 23 U/L ALT (test code = 2219) 21 U/L Toney RennerSGPT (ALT)2024-06-20 00:00:00* Test Item Value Reference Range Interpretation Comme nts ALT (test code = 2219) 21 U/L Toney Cowan ZurdoCBC W/AUTO [id number] 00:00:00* Test Item Value Reference Range Interpretation Comme nts WBC (test code = 1001) 7.7 K/UL RBC (test code = 1002) 4.34 M/UL HEMOGLOBIN (test code = 1003) 13.0 G/DL HEMATOCRIT (test code = 1004) 39.8 % MCV (test code = 1005) 91.7 fL MCH (test code = 1006) 30.0 PG MCHC (test code = 1007) 32.7 G/DL RDW (test code = 1038) 13.6 % NEUTROPHILS (test code = 1008) 50.9 % LYMPHOCYTES (test code = 1010) 40.8 % MONOCYTES (test code = 1011) 6.0 % EOSINOPHILS (test code = 1012) 1.6 % BASOPHILS (test code = 1013) 0.6 % IMMATURE GRANULOCYTES (test code = 1036) 0.1 % NUCLEATED RBCS (test code = 1065) 0.0 /100WBC'S PLATELET COUNT (test code = 1015) 236 K/UL ABSOLUTE NEUTROPHILS (test c ode = 1066) 3.92 K/UL ABSOLUTE LYMPHOCYTES (test c ode = 1067) 3.14 K/UL ABSOLUTE MONOCYTES (test cod e = 1068) 0.46 K/UL ABSOLUTE EOSINOPHILS (test c ode = 1040) 0.12 K/UL ABSOLUTE BASOPHILS (test cod e = 1069) 0.05 K/UL ABS IMMATURE GRANULOCYTES (t est code = 1020) 0.01 K/UL ABS NUCLEATED RBCS (test cod e = 64969) 0.00 K/UL Toney Camryn ZurdoHEMOGLOBIN [id number] 00:00:00* Test Item Value Reference Range Interpretation Comme nts HEMOGLOBIN A1c (test code = 58550) 8.4 % Toney RennerLIVER (HEPATIC) FUNCTION [id number] 00:00:00* Test Item Value Reference Range Interpretation Comme nts PROTEIN, TOTAL (test code = 2229) 7.1 G/DL ALBUMIN (test code = 2201) 4.2 G/DL BILIRUBIN, TOTAL (test code = 2207) 0.6 MG/DL BILIRUBIN, DIRECT (test code = 2022) 0.1 MG/DL ALKALINE PHOSPHATASE (test c ode = 2204) 85 U/L AST (test code = 2218) 23 U/L ALT (test code = 2219) 21 U/L Toney RennerSGPT (ALT)2024-06-20 00:00:00* Test Item Value Reference Range Interpretation Comme nts ALT (test code = 2219) 21 U/L Toney Camryn ZurdoCBC W/AUTO [id number] 00:00:00* Test Item Value Reference Range Interpretation Comme nts WBC (test code = 1001) 7.7 K/UL RBC (test code = 1002) 4.34 M/UL HEMOGLOBIN (test code = 1003) 13.0 G/DL HEMATOCRIT (test code = 1004) 39.8 % MCV (test code = 1005) 91.7 fL MCH (test code = 1006) 30.0 PG MCHC (test code = 1007) 32.7 G/DL RDW (test code = 1038) 13.6 % NEUTROPHILS (test code = 1008) 50.9 % LYMPHOCYTES (test code = 1010) 40.8 % MONOCYTES (test code = 1011) 6.0 % EOSINOPHILS (test code = 1012) 1.6 % BASOPHILS (test code = 1013) 0.6 % IMMATURE GRANULOCYTES (test code = 1036) 0.1 % NUCLEATED RBCS (test code = 1065) 0.0 /100WBC'S PLATELET COUNT (test code = 1015) 236 K/UL ABSOLUTE NEUTROPHILS (test c ode = 1066) 3.92 K/UL ABSOLUTE LYMPHOCYTES (test c ode = 1067) 3.14 K/UL ABSOLUTE MONOCYTES (test cod e = 1068) 0.46 K/UL ABSOLUTE EOSINOPHILS (test c ode = 1040) 0.12 K/UL ABSOLUTE BASOPHILS (test cod e = 1069) 0.05 K/UL ABS IMMATURE GRANULOCYTES (t est code = 1020) 0.01 K/UL ABS NUCLEATED RBCS (test cod e = 76482) 0.00 K/UL Toney RennerHEMOGLOBIN [id number] 00:00:00* Test Item Value Reference Range Interpretation Comme nts HEMOGLOBIN A1c (test code = 29976) 8.4 % Toney RennerLIPID [id number] 00:00:00* Test Item Value Reference Range Interpretation Comme nts CHOLESTEROL (test code = 2210) 143 MG/DL TRIGLYCERIDES (test code = 2232) 114 MG/DL HDL CHOLESTEROL (test code = 2220) 46 MG/DL CALC LDL CHOL (test code = 2237) 77 MG/DL RISK RATIO LDL/HDL (test cod e = 2238) 1.67 RATIO Toney RennerCOMPREHENSIVE METABOLIC [id number] 00:00:00* Test Item Value Reference Range Interpretation Comme nts GLUCOSE (test code = 2217) 154 MG/DL BUN (test code = 2208) 15 MG/DL CREATININE (test code = 2214) 0.55 MG/DL eGFR (2020 CKD-EPI) (test co de = 46799) 97 ML/MIN/1.73 CALC BUN/CREAT (test code = 2235) 27 RATIO SODIUM (test code = 2231) 144 MEQ/L POTASSIUM (test code = 2228) 3.9 MEQ/L CHLORIDE (test code = 2215) 104 MEQ/L CARBON DIOXIDE (test code = 2206) 25 MEQ/L CALCIUM (test code = 2209) 9.5 MG/DL PROTEIN, TOTAL (test code = 2229) 7.3 G/DL ALBUMIN (test code = 2201) 4.4 G/DL CALC GLOBULIN (test code = 2240) 2.9 G/DL CALC A/G RATIO (test code = 2234) 1.5 RATIO BILIRUBIN, TOTAL (test code = 2207) 0.5 MG/DL ALKALINE PHOSPHATASE (test code = 2204) 96 U/L AST (test code = 2218) 23 U/L ALT (test code = 2219) 26 U/L Toney Cowan [place] [id number] 00:00:00* Test Item Value Reference Range Interpretation Comme nts CHOLESTEROL (test code = 2210) 143 MG/DL TRIGLYCERIDES (test code = 2232) 114 MG/DL HDL CHOLESTEROL (test code = 2220) 46 MG/DL CALC LDL CHOL (test code = 2237) 77 MG/DL RISK RATIO LDL/HDL (test cod e = 2238) 1.67 RATIO Toney RennerCOMPREHENSIVE METABOLIC [id number] 00:00:00* Test Item Value Reference Range Interpretation Comme nts GLUCOSE (test code = 2217) 154 MG/DL BUN (test code = 2208) 15 MG/DL CREATININE (test code = 2214) 0.55 MG/DL eGFR (2020 CKD-EPI) (test co de = 54357) 97 ML/MIN/1.73 CALC BUN/CREAT (test code = 2235) 27 RATIO SODIUM (test code = 2231) 144 MEQ/L POTASSIUM (test code = 2228) 3.9 MEQ/L CHLORIDE (test code = 2215) 104 MEQ/L CARBON DIOXIDE (test code = 2206) 25 MEQ/L CALCIUM (test code = 2209) 9.5 MG/DL PROTEIN, TOTAL (test code = 2229) 7.3 G/DL ALBUMIN (test code = 2201) 4.4 G/DL CALC GLOBULIN (test code = 2240) 2.9 G/DL CALC A/G RATIO (test code = 2234) 1.5 RATIO BILIRUBIN, TOTAL (test code = 2207) 0.5 MG/DL ALKALINE PHOSPHATASE (test code = 2204) 96 U/L AST (test code = 2218) 23 U/L ALT (test code = 2219) 26 U/L Toney Cowan [place] [id number] 00:00:00* Test Item Value Reference Range Interpretation Comme nts CHOLESTEROL (test code = 2210) 143 MG/DL TRIGLYCERIDES (test code = 2232) 114 MG/DL HDL CHOLESTEROL (test code = 2220) 46 MG/DL CALC LDL CHOL (test code = 2237) 77 MG/DL RISK RATIO LDL/HDL (test cod e = 2238) 1.67 RATIO Toney RennerCOMPREHENSIVE METABOLIC [id number] 00:00:00* Test Item Value Reference Range Interpretation Comme nts GLUCOSE (test code = 2217) 154 MG/DL BUN (test code = 2208) 15 MG/DL CREATININE (test code = 2214) 0.55 MG/DL eGFR (2020 CKD-EPI) (test co de = 81432) 97 ML/MIN/1.73 CALC BUN/CREAT (test code = 2235) 27 RATIO SODIUM (test code = 2231) 144 MEQ/L POTASSIUM (test code = 2228) 3.9 MEQ/L CHLORIDE (test code = 2215) 104 MEQ/L CARBON DIOXIDE (test code = 2206) 25 MEQ/L CALCIUM (test code = 2209) 9.5 MG/DL PROTEIN, TOTAL (test code = 2229) 7.3 G/DL ALBUMIN (test code = 2201) 4.4 G/DL CALC GLOBULIN (test code = 2240) 2.9 G/DL CALC A/G RATIO (test code = 2234) 1.5 RATIO BILIRUBIN, TOTAL (test code = 2207) 0.5 MG/DL ALKALINE PHOSPHATASE (test code = 2204) 96 U/L AST (test code = 2218) 23 U/L ALT (test code = 2219) 26 U/L Toney Cowan AustinLIPID [id number] 00:00:00* Test Item Value Reference Range Interpretation Comme nts CHOLESTEROL (test code = 2210) 143 MG/DL TRIGLYCERIDES (test code = 2232) 114 MG/DL HDL CHOLESTEROL (test code = 2220) 46 MG/DL CALC LDL CHOL (test code = 2237) 77 MG/DL RISK RATIO LDL/HDL (test cod e = 2238) 1.67 RATIO Toney RennerCOMPREHENSIVE METABOLIC [id number] 00:00:00* Test Item Value Reference Range Interpretation Comme nts GLUCOSE (test code = 2217) 154 MG/DL BUN (test code = 2208) 15 MG/DL CREATININE (test code = 2214) 0.55 MG/DL eGFR (2020 CKD-EPI) (test co de = 39935) 97 ML/MIN/1.73 CALC BUN/CREAT (test code = 2235) 27 RATIO SODIUM (test code = 2231) 144 MEQ/L POTASSIUM (test code = 2228) 3.9 MEQ/L CHLORIDE (test code = 2215) 104 MEQ/L CARBON DIOXIDE (test code = 2206) 25 MEQ/L CALCIUM (test code = 2209) 9.5 MG/DL PROTEIN, TOTAL (test code = 2229) 7.3 G/DL ALBUMIN (test code = 2201) 4.4 G/DL CALC GLOBULIN (test code = 2240) 2.9 G/DL CALC A/G RATIO (test code = 2234) 1.5 RATIO BILIRUBIN, TOTAL (test code = 2207) 0.5 MG/DL ALKALINE PHOSPHATASE (test code = 2204) 96 U/L AST (test code = 2218) 23 U/L ALT (test code = 2219) 26 U/L Toney Cowan AustinLIPID [id number] 00:00:00* Test Item Value Reference Range Interpretation Comme nts CHOLESTEROL (test code = 2210) 143 MG/DL TRIGLYCERIDES (test code = 2232) 114 MG/DL HDL CHOLESTEROL (test code = 2220) 46 MG/DL CALC LDL CHOL (test code = 2237) 77 MG/DL RISK RATIO LDL/HDL (test cod e = 2238) 1.67 RATIO Toney RennerCOMPREHENSIVE METABOLIC [id number] 00:00:00* Test Item Value Reference Range Interpretation Comme nts GLUCOSE (test code = 2217) 154 MG/DL BUN (test code = 2208) 15 MG/DL CREATININE (test code = 2214) 0.55 MG/DL eGFR (2020 CKD-EPI) (test co de = 04121) 97 ML/MIN/1.73 CALC BUN/CREAT (test code = 2235) 27 RATIO SODIUM (test code = 2231) 144 MEQ/L POTASSIUM (test code = 2228) 3.9 MEQ/L CHLORIDE (test code = 2215) 104 MEQ/L CARBON DIOXIDE (test code = 2206) 25 MEQ/L CALCIUM (test code = 2209) 9.5 MG/DL PROTEIN, TOTAL (test code = 2229) 7.3 G/DL ALBUMIN (test code = 2201) 4.4 G/DL CALC GLOBULIN (test code = 2240) 2.9 G/DL CALC A/G RATIO (test code = 2234) 1.5 RATIO BILIRUBIN, TOTAL (test code = 2207) 0.5 MG/DL ALKALINE PHOSPHATASE (test code = 2204) 96 U/L AST (test code = 2218) 23 U/L ALT (test code = 2219) 26 U/L Toney RennerHEMOGLOBIN [id number] 00:00:00* Test Item Value Reference Range Interpretation Comme nts HEMOGLOBIN A1c (test code = 41187) 8.6 % Toney Cowan AustinHEMOGLOBIN [id number] 00:00:00* Test Item Value Reference Range Interpretation Comme nts HEMOGLOBIN A1c (test code = 47348) 8.6 % Toney Cowan AustinHEMOGLOBIN [id number] 00:00:00* Test Item Value Reference Range Interpretation Comme nts HEMOGLOBIN A1c (test code = 33030) 8.6 % Toney Cowan AustinHEMOGLOBIN [id number] 00:00:00* Test Item Value Reference Range Interpretation Comme nts HEMOGLOBIN A1c (test code = 49848) 8.6 % Toney Cowan AustinHEMOGLOBIN [id number] 00:00:00* Test Item Value Reference Range Interpretation Comme nts HEMOGLOBIN A1c (test code = 47448) 8.6 % Toney RennerCULTBG, [id number] 11:54:09SPECIMEN NUMBER: [id number] CULTURE, URINE SPECIMEN NUMBER: [id number] SPECIMEN COMMENT: URINE SOURCE: URINE REPORT STATUS: FINAL FINAL REPORT: 11/29/2023 <10,000 CFU/ML UROGENITAL WOLF PRESENT NO COMMON PATHOGENSCULTURE, [id number] 00:00:00* Test Item Value Reference Range Interpretation Comme nts CULTURE, URINE (test code = 99393) SPECIMEN NUMBER: [id number] Toney Salinas, [id number] 00:00:00* Test Item Value Reference Range Interpretation Comme nts CULTURE, URINE (test code = 01958) SPECIMEN NUMBER: [id number] Toney Salinas, [id number] 00:00:00* Test Item Value Reference Range Interpretation Comme nts CULTURE, URINE (test code = 43500) SPECIMEN NUMBER: [id number] Toney Salinas, [id number] 00:00:00* Test Item Value Reference Range Interpretation Comme nts CULTURE, URINE (test code = 45432) SPECIMEN NUMBER: [id number] Toney Salinas, [id number] 00:00:00* Test Item Value Reference Range Interpretation Comme nts CULTURE, URINE (test code = 53530) SPECIMEN NUMBER: [id number] Toney Salinas, [id number] 00:00:00* Test Item Value Reference Range Interpretation Comme nts CULTURE, URINE (test code = 44584) SPECIMEN NUMBER: [id number] Toney RennerCOMPREHENSIVE METABOLIC [id number] 05:44:49* Test Item Value Reference Range Interpretation Comme nts GLUCOSE (test code = 2217) 157 MG/DL 70-99 H BUN (test code = 2208) 14 MG/DL 8-23 CREATININE (test code = 2214) 0.51 MG/DL 0.60-1.30 L eGFR (2020 CKD-EPI) (test co de = 86446) 99 ML/MIN/1.73 >60 CALC BUN/CREAT (test code [...] 1.0-2.6 BILIRUBIN, TOTAL (test code = 2206) 0.5 MG/DL <=1.2 ALKALINE PHOSPHATASE (test code = 220) 93 U/L 40-142 AST (test code = 2218) 26 U/L 9-40 ALT (test code = 221) 21 U/L 5-40 LIPID [id number] 05:44:49* Test Item Value Reference Range Interpretation Comme nts CHOLESTEROL (test code = 2210) 155 MG/DL <200 TRIGLYCERIDES (test code = 2232) 103 MG/DL <150 HDL CHOLESTEROL (test code = 2219) 47 MG/DL >39 CALC LDL CHOL (test code = 2236) 88 MG/DL <100 NOTE: CALCULATED LDL IS BASED ON SANDRA-TELLO METHOD WHICHINCLUDES ADJUSTABLE TRIGLYCERIDE:VLDL CHOLESTEROL RATIO.THIS FACTOR VARIES BY MEASURED TRIGLYCERIDE AND NON-HDLCHOLESTEROL CONCENTRATIONS WITH INCREASED CALCULATED LDL SEENIN HIGHER TRIGLYCERIDE OR LOWER NON-HDL SPECIMENS. FOR MOREINFORMATION, SEE CLIENT ANNOUNCEMENT AT [email or web address] RISK RATIO LDL/HDL (test code = 2238) 1.87 RATIO <3.22 HEMOGLOBIN [id number] 03:44:18* Test Item Value Reference Range Interpretation Comme nts HEMOGLOBIN A1c (test code = 95405) 7.4 % 4.2-5.6 H CITIZEN OF [employer] GUIDELINES FOR HGB A1C: [...] TESTING PERFORMED AT [facility] [address] [place] [address] WATER FABRICATOR OPERATOR: LILA SHANNON M.D. CLIA NUMBER [id number] [facility] [place] [place]. [id number] LIPID [id number] 00:00:00* Test Item Value Reference Range Interpretation Comme nts CHOLESTEROL (test code = 2210) 155 MG/DL TRIGLYCERIDES (test code = 2232) 103 MG/DL HDL CHOLESTEROL (test code = 2220) 47 MG/DL CALC LDL CHOL (test code = 2237) 88 MG/DL RISK RATIO LDL/HDL (test cod e = 2238) 1.87 RATIO Toney RennerHEMOGLOBIN [id number] 00:00:00* Test Item Value Reference Range Interpretation Comme nts HEMOGLOBIN A1c (test code = 81759) 7.4 % Toney RennerCOMPREHENSIVE METABOLIC [id number] 00:00:00* Test Item Value Reference Range Interpretation Comme nts GLUCOSE (test code = 2217) 157 MG/DL BUN (test code = 2208) 14 MG/DL CREATININE (test code = 2214) 0.51 MG/DL eGFR (2020 CKD-EPI) (test co de = 34512) 99 ML/MIN/1.73 CALC BUN/CREAT (test code = 2235) 27 RATIO SODIUM (test code = 2231) 143 MEQ/L POTASSIUM (test code = 2228) 3.9 MEQ/L CHLORIDE (test code = 2215) 104 MEQ/L CARBON DIOXIDE (test code = 2206) 27 MEQ/L CALCIUM (test code = 2209) 9.6 MG/DL PROTEIN, TOTAL (test code = 2229) 7.7 G/DL ALBUMIN (test code = 2201) 4.2 G/DL CALC GLOBULIN (test code = 2240) 3.5 G/DL CALC A/G RATIO (test code = 2234) 1.2 RATIO BILIRUBIN, TOTAL (test code = 2207) 0.5 MG/DL ALKALINE PHOSPHATASE (test code = 2204) 93 U/L AST (test code = 2218) 26 U/L ALT (test code = 2219) 21 U/L Toney RennerLIPID [id number] 00:00:00* Test Item Value Reference Range Interpretation Comme nts CHOLESTEROL (test code = 2210) 155 MG/DL TRIGLYCERIDES (test code = 2232) 103 MG/DL HDL CHOLESTEROL (test code = 2220) 47 MG/DL CALC LDL CHOL (test code = 2237) 88 MG/DL RISK RATIO LDL/HDL (test cod e = 2238) 1.87 RATIO Toney RennerHEMOGLOBIN [id number] 00:00:00* Test Item Value Reference Range Interpretation Comme nts HEMOGLOBIN A1c (test code = 36901) 7.4 % Toney RennerCOMPREHENSIVE METABOLIC [id number] 00:00:00* Test Item Value Reference Range Interpretation Comme nts GLUCOSE (test code = 2217) 157 MG/DL BUN (test code = 2208) 14 MG/DL CREATININE (test code = 2214) 0.51 MG/DL eGFR (2020 CKD-EPI) (test co de = 89958) 99 ML/MIN/1.73 CALC BUN/CREAT (test code = 2235) 27 RATIO SODIUM (test code = 2231) 143 MEQ/L POTASSIUM (test code = 2228) 3.9 MEQ/L CHLORIDE (test code = 2215) 104 MEQ/L CARBON DIOXIDE (test code = 2206) 27 MEQ/L CALCIUM (test code = 2209) 9.6 MG/DL PROTEIN, TOTAL (test code = 2229) 7.7 G/DL ALBUMIN (test code = 2201) 4.2 G/DL CALC GLOBULIN (test code = 2240) 3.5 G/DL CALC A/G RATIO (test code = 2234) 1.2 RATIO BILIRUBIN, TOTAL (test code = 2207) 0.5 MG/DL ALKALINE PHOSPHATASE (test code = 2204) 93 U/L AST (test code = 2218) 26 U/L ALT (test code = 2219) 21 U/L Toney Cowan AustinLIPID [id number] 00:00:00* Test Item Value Reference Range Interpretation Comme nts CHOLESTEROL (test code = 2210) 155 MG/DL TRIGLYCERIDES (test code = 2232) 103 MG/DL HDL CHOLESTEROL (test code = 2220) 47 MG/DL CALC LDL CHOL (test code = 2237) 88 MG/DL RISK RATIO LDL/HDL (test cod e = 2238) 1.87 RATIO Toney Cowan AustinHEMOGLOBIN [id number] 00:00:00* Test Item Value Reference Range Interpretation Comme nts HEMOGLOBIN A1c (test code = 85557) 7.4 % Toney RennerCOMPREHENSIVE METABOLIC [id number] 00:00:00* Test Item Value Reference Range Interpretation Comme nts GLUCOSE (test code = 2217) 157 MG/DL BUN (test code = 2208) 14 MG/DL CREATININE (test code = 2214) 0.51 MG/DL eGFR (2020 CKD-EPI) (test co de = 86377) 99 ML/MIN/1.73 CALC BUN/CREAT (test code = 2235) 27 RATIO SODIUM (test code = 2231) 143 MEQ/L POTASSIUM (test code = 2228) 3.9 MEQ/L CHLORIDE (test code = 2215) 104 MEQ/L CARBON DIOXIDE (test code = 2206) 27 MEQ/L CALCIUM (test code = 2209) 9.6 MG/DL PROTEIN, TOTAL (test code = 2229) 7.7 G/DL ALBUMIN (test code = 2201) 4.2 G/DL CALC GLOBULIN (test code = 2240) 3.5 G/DL CALC A/G RATIO (test code = 2234) 1.2 RATIO BILIRUBIN, TOTAL (test code = 2207) 0.5 MG/DL ALKALINE PHOSPHATASE (test code = 2204) 93 U/L AST (test code = 2218) 26 U/L ALT (test code = 2219) 21 U/L Toney Cowan AustinLIPID [id number] 00:00:00* Test Item Value Reference Range Interpretation Comme nts CHOLESTEROL (test code = 2210) 155 MG/DL TRIGLYCERIDES (test code = 2232) 103 MG/DL HDL CHOLESTEROL (test code = 2220) 47 MG/DL CALC LDL CHOL (test code = 2237) 88 MG/DL RISK RATIO LDL/HDL (test cod e = 2238) 1.87 RATIO Toney RennerHEMOGLOBIN [id number] 00:00:00* Test Item Value Reference Range Interpretation Comme nts HEMOGLOBIN A1c (test code = 21629) 7.4 % Toney RennerCOMPREHENSIVE METABOLIC [id number] 00:00:00* Test Item Value Reference Range Interpretation Comme nts GLUCOSE (test code = 2217) 157 MG/DL BUN (test code = 2208) 14 MG/DL CREATININE (test code = 2214) 0.51 MG/DL eGFR (2020 CKD-EPI) (test co de = 56989) 99 ML/MIN/1.73 CALC BUN/CREAT (test code = 2235) 27 RATIO SODIUM (test code = 2231) 143 MEQ/L POTASSIUM (test code = 2228) 3.9 MEQ/L CHLORIDE (test code = 2215) 104 MEQ/L CARBON DIOXIDE (test code = 2206) 27 MEQ/L CALCIUM (test code = 2209) 9.6 MG/DL PROTEIN, TOTAL (test code = 2229) 7.7 G/DL ALBUMIN (test code = 2201) 4.2 G/DL CALC GLOBULIN (test code = 2240) 3.5 G/DL CALC A/G RATIO (test code = 2234) 1.2 RATIO BILIRUBIN, TOTAL (test code = 2207) 0.5 MG/DL ALKALINE PHOSPHATASE (test code = 2204) 93 U/L AST (test code = 2218) 26 U/L ALT (test code = 2219) 21 U/L Toney Cowan WaterburyLIP[place] [id number] 00:00:00* Test Item Value Reference Range Interpretation Comme nts CHOLESTEROL (test code = 2210) 155 MG/DL TRIGLYCERIDES (test code = 2232) 103 MG/DL HDL CHOLESTEROL (test code = 2220) 47 MG/DL CALC LDL CHOL (test code = 2237) 88 MG/DL RISK RATIO LDL/HDL (test cod e = 2238) 1.87 RATIO Toney RennerHEMOGLOBIN [id number] 00:00:00* Test Item Value Reference Range Interpretation Comme nts HEMOGLOBIN A1c (test code = 13594) 7.4 % Toney Cowan WaterburyCOMPREHENSIVE METABOLIC [id number] 00:00:00* Test Item Value Reference Range Interpretation Comme nts GLUCOSE (test code = 2217) 157 MG/DL BUN (test code = 2208) 14 MG/DL CREATININE (test code = 2214) 0.51 MG/DL eGFR (2020 CKD-EPI) (test co de = 15876) 99 ML/MIN/1.73 CALC BUN/CREAT (test code = 2235) 27 RATIO SODIUM (test code = 2231) 143 MEQ/L POTASSIUM (test code = 2228) 3.9 MEQ/L CHLORIDE (test code = 2215) 104 MEQ/L CARBON DIOXIDE (test code = 2206) 27 MEQ/L CALCIUM (test code = 2209) 9.6 MG/DL PROTEIN, TOTAL (test code = 2229) 7.7 G/DL ALBUMIN (test code = 2201) 4.2 G/DL CALC GLOBULIN (test code = 2240) 3.5 G/DL CALC A/G RATIO (test code = 2234) 1.2 RATIO BILIRUBIN, TOTAL (test code = 2207) 0.5 MG/DL ALKALINE PHOSPHATASE (test code = 2204) 93 U/L AST (test code = 2218) 26 U/L ALT (test code = 2219) 21 U/L Toney RennerLIPID [id number] 00:00:00* Test Item Value Reference Range Interpretation Comme nts CHOLESTEROL (test code = 2210) 155 MG/DL TRIGLYCERIDES (test code = 2232) 103 MG/DL HDL CHOLESTEROL (test code = 2220) 47 MG/DL CALC LDL CHOL (test code = 2237) 88 MG/DL RISK RATIO LDL/HDL (test cod e = 2238) 1.87 RATIO Toney RennerHEMOGLOBIN [id number] 00:00:00* Test Item Value Reference Range Interpretation Comme nts HEMOGLOBIN A1c (test code = 73126) 7.4 % Toney RennerCOMPREHENSIVE METABOLIC [id number] 00:00:00* Test Item Value Reference Range Interpretation Comme nts GLUCOSE (test code = 2217) 157 MG/DL BUN (test code = 2208) 14 MG/DL CREATININE (test code = 2214) 0.51 MG/DL eGFR (2020 CKD-EPI) (test co de = 06844) 99 ML/MIN/1.73 CALC BUN/CREAT (test code = 2235) 27 RATIO SODIUM (test code = 2231) 143 MEQ/L POTASSIUM (test code = 2228) 3.9 MEQ/L CHLORIDE (test code = 2215) 104 MEQ/L CARBON DIOXIDE (test code = 2206) 27 MEQ/L CALCIUM (test code = 2209) 9.6 MG/DL PROTEIN, TOTAL (test code = 2229) 7.7 G/DL ALBUMIN (test code = 2201) 4.2 G/DL CALC GLOBULIN (test code = 2240) 3.5 G/DL CALC A/G RATIO (test code = 2234) 1.2 RATIO BILIRUBIN, TOTAL (test code = 7) 0.5 MG/DL ALKALINE PHOSPHATASE (test code = 2203) 93 U/L AST (test code = 2218) 26 U/L ALT (test code = 2219) 21 U/L Toney RennerHEPATIC FUNCTION [id number] 06:18:49* Test Item Value Reference Range Interpretation Comme nts PROTEIN, TOTAL (test code = 2228) 7.7 G/DL 6.1-8.3 ALBUMIN (test code = 2200) 4.6 G/DL 3.5-5.2 BILIRUBIN, TOTAL (test code = 2206) 0.5 MG/DL <=1.2 BILIRUBIN, DIRECT (test code = 2021) 0.2 MG/DL 0.0-0.3 ALKALINE PHOSPHATASE (test c ode = 2203) 78 U/L 40-142 AST (test code = 2217) 32 U/L 9-40 ALT (test code = 2219) 27 U/L 5-40 AFP, TUMOR [id number] 06:17:42* Test Item Value Reference Range Interpretation Comme nts AFP, TUMOR MARKER (test code = 25300) 3.04 NG/ML <=8.30 UNLESS OTHERWISE INDICATED, ALL TESTING PERFORMED AT [facility] [address] [place] [address] WATER FABRICATOR OPERATOR: LILA SHANNON M.D. CLIA NUMBER [id number] [facility] [place]. [id number] HEPATITIS B CORE [id number] 04:33:04* Test Item Value Reference Range Interpretation Comme nts HEPATITIS B CORE IgM (test c ode = 4644) NON-REACTIVE NON-REACTIVE HEPATITIS C [id number] 04:33:04* Test Item Value Reference Range Interpretation Comme nts HEPATITIS C ANTIBODY (test c ode = 4675) NON-REACTIVE NON-REACTIVE HEPATITIS B SURFACE [id number] 04:33:04* Test Item Value Reference Range Interpretation Comme nts HEPATITIS B SURFACE AB (test code = 2737) REACTIVE NON-REACTIVE A LIVER (HEPATIC) FUNCTION [id number] 00:00:00* Test Item Value Reference Range Interpretation [...] (test code = 2219) 27 U/L Toney RennerHEPATITIS B CORE [id number] 00:00:00* Test Item Value Reference Range Interpretation Comme nts HEPATITIS B CORE IgM (test c ode = 4644) NON-REACTIVE Toney Cowan AustinHEPATITIS C [id number] 00:00:00* Test Item Value Reference Range Interpretation Comme nts HEPATITIS C ANTIBODY (test c ode = 4675) NON-REACTIVE Toney Cowan AustinHEPATITIS B SURFACE [id number] 00:00:00* Test Item Value Reference Range Interpretation Comme katty HEPATITIS B SURFACE AB (test code = 2737) REACTIVE Toney RennerAFP, TUMOR [id number] 00:00:00* Test Item Value Reference Range Interpretation Comme nts AFP, TUMOR MARKER (test code = 75699) 3.04 NG/ML Toney RennerLIVER (HEPATIC) FUNCTION [id number] 00:00:00* Test Item Value Reference Range Interpretation [...] 27 U/L Toney Cowan AustinHEPATITIS B CORE [id number] 00:00:00* Test Item Value Reference Range Interpretation Comme nts HEPATITIS B CORE IgM (test c ode = 4644) NON-REACTIVE Toney Cowan AustinHEPATITIS C [id number] 00:00:00* Test Item Value Reference Range Interpretation Comme nts HEPATITIS C ANTIBODY (test c ode = 4675) NON-REACTIVE Toney Cowan AustinHEPATITIS B SURFACE [id number] 00:00:00* Test Item Value Reference Range Interpretation Comme nts HEPATITIS B SURFACE AB (test code = 2737) REACTIVE Toney Cowan AustinAFP, TUMOR [id number] 00:00:00* Test Item Value Reference Range Interpretation Comme nts AFP, TUMOR MARKER (test code = 99762) 3.04 NG/ML Toney Cowan AustinLIVER (HEPATIC) FUNCTION [id number] 00:00:00* Test Item Value Reference Range Interpretation Comme nts PROTEIN, TOTAL (test code = 2229) 7.7 G/DL ALBUMIN (test code = 2201) 4.6 G/DL BILIRUBIN, TOTAL (test code = 2207) 0.5 MG/DL BILIRUBIN, DIRECT (test code = 2021) 0.2 MG/DL ALKALINE PHOSPHATASE (test c ode = 2204) 78 U/L AST (test code = 2218) 32 U/L ALT (test code = 2219) 27 U/L Toney RennerHEPATITIS B CORE [id number] 00:00:00* Test Item Value Reference Range Interpretation Comme nts HEPATITIS B CORE IgM (test c ode = 4644) NON-REACTIVE Toney RennerHEPATITIS C [id number] 00:00:00* Test Item Value Reference Range Interpretation Comme nts HEPATITIS C ANTIBODY (test c ode = 4675) NON-REACTIVE Toney Cowan AustinHEPATITIS B SURFACE [id number] 00:00:00* Test Item Value Reference Range Interpretation Comme nts HEPATITIS B SURFACE AB (test code = 2737) REACTIVE Toney Cowan AustinAFP, TUMOR [id number] 00:00:00* Test Item Value Reference Range Interpretation Comme nts AFP, TUMOR MARKER (test code = 25132) 3.04 NG/ML Toney Cowan AustinLIVER (HEPATIC) FUNCTION [id number] 00:00:00* Test Item Value Reference Range Interpretation Comme nts PROTEIN, TOTAL (test code = 2229) 7.7 G/DL ALBUMIN (test code = 2201) 4.6 G/DL BILIRUBIN, TOTAL (test code = 2207) 0.5 MG/DL BILIRUBIN, DIRECT (test code = 2021) 0.2 MG/DL ALKALINE PHOSPHATASE (test c ode = 2204) 78 U/L AST (test code = 2218) 32 U/L ALT (test code = 2219) 27 U/L Toney RennerHEPATITIS B CORE [id number] 00:00:00* Test Item Value Reference Range Interpretation Comme nts HEPATITIS B CORE IgM (test c ode = 4644) NON-REACTIVE Toney Cowan AustinHEPATITIS C [id number] 00:00:00* Test Item Value Reference Range Interpretation Comme nts HEPATITIS C ANTIBODY (test c ode = 4675) NON-REACTIVE Toney Cowan AustinHEPATITIS B SURFACE [id number] 00:00:00* Test Item Value Reference Range Interpretation Comme nts HEPATITIS B SURFACE AB (test code = 2737) REACTIVE Toney RennerAFP, TUMOR [id number] 00:00:00* Test Item Value Reference Range Interpretation Comme katty AFP, TUMOR MARKER (test code = 73559) 3.04 NG/ML Toney RennerLIVER (HEPATIC) FUNCTION [id number] 00:00:00* Test Item Value Reference Range Interpretation [...] (test code = 2219) 27 U/L Toney RennerHEPATITIS B CORE [id number] 00:00:00* Test Item Value Reference Range Interpretation Comme nts HEPATITIS B CORE IgM (test c ode = 4644) NON-REACTIVE Toney Cowan AustinHEPATITIS C [id number] 00:00:00* Test Item Value Reference Range Interpretation Comme nts HEPATITIS C ANTIBODY (test c ode = 4675) NON-REACTIVE Toney Cowan AustinHEPATITIS B SURFACE [id number] 00:00:00* Test Item Value Reference Range Interpretation Comme nts HEPATITIS B SURFACE AB (test code = 2737) REACTIVE Toney RennerAFP, TUMOR [id number] 00:00:00* Test Item Value Reference Range Interpretation Comme nts AFP, TUMOR MARKER (test code = 08045) 3.04 NG/ML Toney RennerLIVER (HEPATIC) FUNCTION [id number] 00:00:00* Test Item Value Reference Range Interpretation Comme nts PROTEIN, TOTAL (test code = 2229) 7.7 G/DL ALBUMIN (test code = 2201) 4.6 G/DL BILIRUBIN, TOTAL (test code = 2207) 0.5 MG/DL BILIRUBIN, DIRECT (test code = 2021) 0.2 MG/DL ALKALINE PHOSPHATASE (test c ode = 2204) 78 U/L AST (test code = 2218) 32 U/L ALT (test code = 2219) 27 U/L Toney RennerHEPATITIS B CORE [id number] 00:00:00* Test Item Value Reference Range Interpretation Comme nts HEPATITIS B CORE IgM (test c ode = 4644) NON-REACTIVE Toney RennerHEPATITIS C [id number] 00:00:00* Test Item Value Reference Range Interpretation Comme nts HEPATITIS C ANTIBODY (test c ode = 4675) NON-REACTIVE Toney RennerHEPATITIS B SURFACE [id number] 00:00:00* Test Item Value Reference Range Interpretation Comme nts HEPATITIS B SURFACE AB (test code = 2737) REACTIVE Toney RennerAFP, TUMOR [id number] 00:00:00* Test Item Value Reference Range Interpretation Comme katty AFP, TUMOR MARKER (test code = 56482) 3.04 NG/ML Toney RennerPOCT GLUCOSE (AUTOMATED)2023-09-05 13:54:20* Test Item Value Reference Range Interpretation Comme nts POCT GLU (test code = 2278752973) 153 mg/dL 70-110 H Lab Interpretation (test cod e = 52108-1) Abnormal [facility] GLUCOSE (AUTOMATED)2023-09-05 03:11:35* Test Item Value Reference Range Interpretation Comme nts POCT GLU (test code = 6080722403) 149 mg/dL 70-110 H Lab Interpretation (test cod e = 31171-5) Abnormal [facility] GLUCOSE (AUTOMATED)2023-09-04 22:35:44* Test Item Value Reference Range Interpretation Comme nts POCT GLU (test code = 3167940040) 137 mg/dL 70-110 H Lab Interpretation (test cod e = 08472-8) Abnormal [facility] GLUCOSE (AUTOMATED)2023-09-04 18:37:00* Test Item Value Reference Range Interpretation Comme nts POCT GLU (test code = 0371158664) 226 mg/dL 70-110 H Lab Interpretation (test cod e = 43380-1) Abnormal [facility] GLUCOSE (AUTOMATED)2023-09-04 13:38:01* Test Item Value Reference Range Interpretation Comme nts POCT GLU (test code = 9062642791) 130 mg/dL 70-110 H Lab Interpretation (test cod e = 82722-3) Abnormal [facility] GLUCOSE (AUTOMATED)2023-09-04 02:32:39* Test Item Value Reference Range Interpretation Comme nts POCT GLU (test code = 9507061767) 111 mg/dL 70-110 H Lab Interpretation (test cod e = 97268-4) Abnormal [facility] GLUCOSE (AUTOMATED)2023-09-03 22:49:16* Test Item Value Reference Range Interpretation Comme nts POCT GLU (test code = 5747609990) 117 mg/dL 70-110 H Lab Interpretation (test cod e = 50450-8) Abnormal [facility] GLUCOSE (AUTOMATED)2023-09-03 17:50:09* Test Item Value Reference Range Interpretation Comme nts POCT GLU (test code = 7232650170) 140 mg/dL 70-110 H Lab Interpretation (test cod e = 81686-6) Abnormal [facility] GLUCOSE (AUTOMATED)2023-09-03 13:55:34* Test Item Value Reference Range Interpretation Comme nts POCT GLU (test code = 0310324012) 155 mg/dL 70-110 H Lab Interpretation (test cod e = 27279-0) Abnormal [facility] GLUCOSE (AUTOMATED)2023-09-03 02:55:00* Test Item Value Reference Range Interpretation Comme nts POCT GLU (test code = 5327041678) 132 mg/dL 70-110 H Lab Interpretation (test cod e = 28879-1) Abnormal [facility] GLUCOSE (AUTOMATED)2023-09-02 22:07:26* Test Item Value Reference Range Interpretation Comme nts POCT GLU (test code = 8191669170) 155 mg/dL 70-110 H Lab Interpretation (test cod e = 58016-5) Abnormal [facility] GLUCOSE (AUTOMATED)2023-09-02 17:46:33* Test Item Value Reference Range Interpretation Comme nts POCT GLU (test code = 8036219321) 130 mg/dL 70-110 H Lab Interpretation (test cod e = 45718-5) Abnormal [facility] GLUCOSE (AUTOMATED)2023-09-02 15:02:11* Test Item Value Reference Range Interpretation Comme nts POCT GLU (test code = 1711436139) 154 mg/dL 70-110 H Lab Interpretation (test cod e = 40291-8) [facility] [id number] 01:40:13* Test Item Value Reference Range Interpretation Comme nts LACTIC ACID (test code = 6843210361) 1.86 mmol/L 0.50-2.20 Lab Interpretation (test cod e = 24914-6) [facility] [id number] 23:16:55* Test Item Value Reference Range Interpretation Comme nts TROPONIN I (test code = 3728559146) 0.000 ng/mL <=0.034 FIOR (test code = IFOR) Reference (Normal) Range (defined by the 99th [...] of biotin. Lab Interpretation (test code = 43796-4) Normal [facility]. METABOLIC PANEL (62679)2023-09-01 23:05:35* Test Item Value Reference Range Interpretation Comme nts NA (test code = 3511355811) 139 mmol/L 135-145 K (test code = 5082043118) 3.5 mmol/L 3.5-5.0 CL (test code = 1604573431) 103 mmol/L 98-108 CO2 TOTAL (test code = 9865129226) 23 mmol/L 23-31 AGAP (test code = 9473984795) 13 2-16 BUN (test code = 2022822015) 11 mg/dL 7-23 GLUCOSE (test code = 1751352553) 134 mg/dL 70-110 H CREATININE (test code = 5418996825) 0.48 mg/dL 0.50-1.04 L TOTAL BILI (test code = 5043257757) 0.7 mg/dL 0.1-1.1 CALCIUM (test code = 3823316090) 9.3 mg/dL 8.6-10.6 T PROTEIN (test code = 0449206737) 8.8 g/dL 6.3-8.2 H ALBUMIN (test code = 2225132814) 4.4 g/dL 3.5-5.0 ALK PHOS (test code = 6833039466) 94 U/L 34-122 ALTv (test code = 1742-6) 30 U/L 5-35 AST(SGOT) (test code = 1458095731) 30 U/L 13-40 eGFR (test code = 57842-4) 100.8 mL/min/1.73m2 CKD-EPI eGFR (2020). Assuming creatinine has been stable day-to-day for at least three months, the eGFR indicates Category G1 (>= 90 mL/min/1.73 m2) Lab Interpretation (test code = 85062-8) Abnormal [facility] WITH [id number] 22:53:32* Test Item Value Reference Range Interpretation [...] 33.4 g/dL 31.6-35.1 RDW-SD (test code = 30669-4) 43.8 fL 39.0-49.9 RDW-CV (test code = 788-0) 13.2 % 12.0-15.5 PLT (test code = 777-3) 213 See_Comment [Automated message] The system which generated this result transmitted reference range: 166 - 358 10*3/?L. The reference range was not used to interpret this result as normal/abnormal. MPV (test code = 34338-5) 11.7 fL 9.5-12.9 NRBC/100 WBC (test code = 1791056783) 0.0 See_Comment [Automated message] The system which generated this result transmitted reference range: 0.0 - 10.0 /100 WBCs. The reference range was not used to interpret this result as normal/abnormal. NRBC x10^3 (test code = 5949555209) See_Comment [Automated message] The system which generated this result transmitted reference range: 10*3/?L. The reference range was not used to interpret this result as normal/abnormal. GRAN MAT (NEUT) % (test code = 770-8) 75.2 % IMM GRAN % (test code = 8188153995) 0.40 % LYMPH % (test code = 736-9) 16.2 % MONO % (test code = 5905-5) 7.6 % EOS % (test code = 713-8) 0.3 % BASO % (test code = 706-2) 0.3 % GRAN MAT x10^3(ANC) (test code = 6064374405) 11.57 10*3/uL 1.88-7.09 H IMM GRAN x10^3 (test code = 3430233451) 0.06 10*3/uL 0.00-0.06 LYMPH x10^3 (test code = 731-0) 2.49 10*3/uL 1.32-3.29 MONO x10^3 (test code = 742-7) 1.16 10*3/uL 0.33-0.92 H EOS x10^3 (test code = 711-2) 0.04 10*3/uL 0.03-0.39 BASO x10^3 (test code = 704-7) 0.04 10*3/uL 0.01-0.07 Lab Interpretation (test code = 09571-3) [facility]normal [facility] Whole [id number] 22:38:11* Test Item Value Reference Range Interpretation Comme nts LACTIC ACID (test code = 5544184645) 2.36 mmol/L 0.50-2.20 H Lab Interpretation (test cod e = 70142-6) [facility]normal [facility] HospitalHEMOGLOBIN [id number] 02:23:49* Test Item Value Reference Range Interpretation Comme nts HEMOGLOBIN A1c (test code = 92287) 8.5 % 4.2-5.6 H CITIZEN OF [place] [employer] GUIDELINES FOR HGB A1C: [...] TESTING PERFORMED AT [facility] [address] [place] [address], [place] [address] WATER FABRICATOR OPERATOR: LILA SHANNON M.D. CLIA NUMBER [id number] [facility] [place]. [id number] HEMOGLOBIN [id number] 00:00:00* Test Item Value Reference Range Interpretation Comme nts HEMOGLOBIN A1c (test code = 09579) 8.5 % Toney RennerHEMOGLOBIN [id number] 00:00:00* Test Item Value Reference Range Interpretation Comme nts HEMOGLOBIN A1c (test code = 63454) 8.5 % Toney Cowan AustinHEMOGLOBIN [id number] 00:00:00* Test Item Value Reference Range Interpretation Comme nts HEMOGLOBIN A1c (test code = 02636) 8.5 % Toney Cowan AustinHEMOGLOBIN [id number] 00:00:00* Test Item Value Reference Range Interpretation Comme nts HEMOGLOBIN A1c (test code = 82800) 8.5 % Toney Cowan AustinHEMOGLOBIN [id number] 00:00:00* Test Item Value Reference Range Interpretation Comme nts HEMOGLOBIN A1c (test code = 27182) 8.5 % Toney Cowan AustinHEMOGLOBIN [id number] 00:00:00* Test Item Value Reference Range Interpretation Comme nts HEMOGLOBIN A1c (test code = 87505) 8.5 % Toney Cowan AustinTROPONIN [id number] 01:42:18* Test Item Value Reference Range Interpretation Comme nts TROPONIN I (test code = 2757553082) 0.003 ng/mL <=0.034 FIOR (test code = [...] of biotin. Lab Interpretation (test code = 04220-4) Normal [facility]MINAL [id number] 01:39:57* Test Item Value Reference Range Interpretation Comme nts NT-proBNP (test code = 05135-8) 92 pg/mL <=125 Lab Interpretation (test cod e = 55346-1) Normal [facility]2023-08-07 01:25:59* Test Item Value Reference Range Interpretation Comme nts MAGNESIUM (test code = 0187110043) 1.9 mg/dL 1.7-2.4 Lab Interpretation (test cod e = 25477-7) Normal [facility]. METABOLIC PANEL (70751)2023-06-02 01:25:39* Test Item Value Reference Range Interpretation Comme nts NA (test code = 3547230676) 142 mmol/L 135-145 K (test code = 3802109521) 3.8 mmol/L 3.5-5.0 CL (test code = 3779781606) 102 mmol/L 98-108 CO2 TOTAL (test code = 6865079193) 30 mmol/L 23-31 AGAP (test code = 6681046296) 10 2-16 BUN (test code = 6362167980) 24 mg/dL 7-23 H GLUCOSE (test code = 9316359895) 219 mg/dL 70-110 H CREATININE (test code = 6562240224) 0.76 mg/dL 0.50-1.04 TOTAL BILI (test code = 5896488063) 0.4 mg/dL 0.1-1.1 CALCIUM (test code = 8583002654) 9.9 mg/dL 8.6-10.6 T PROTEIN (test code = 7039689215) 8.3 g/dL 6.3-8.2 H ALBUMIN (test code = 8449954145) 4.3 g/dL 3.5-5.0 ALK PHOS (test code = 7432363432) 103 U/L 34-122 ALTv (test code = 1742-6) 36 U/L 5-35 H AST(SGOT) (test code = 6068428285) 35 U/L 13-40 eGFR (test code = 8719406089) 75.0 mL/min/1.73m2 FIOR (test code = FIOR) [...] imaging tests). Lab Interpretation (test code = 31061-0) [facility]normal [facility] 01:25:39* Test Item Value Reference Range Interpretation Comme nts LIPASE (test code = 6272039272) 105 U/L 0-220 Lab Interpretation (test cod e = 56810-9) Normal [facility] WITH [id number] 00:51:14* Test Item Value Reference Range Interpretation Comme nts WBC (test code = 6690-2) 7.72 See_Comment [Automated [employer]] The system which generated this result transmitted reference range: 4.30 - 11.10 10*3/?L. The reference range was not used to interpret this result as normal/abnormal. RBC (test code = 789-8) 4.31 See_Comment [Automated [employer]] The system which generated this result transmitted [...] 33.5 g/dL 31.6-35.1 RDW-SD (test code = 54589-6) 46.0 fL 39.0-49.9 RDW-CV (test code = 788-0) 13.7 % 12.0-15.5 PLT (test code = 777-3) 221 See_Comment [Automated messa ge] The system which generated this result transmitted reference range: 166 - 358 10*3/?L. The reference range was not used to interpret this result as normal/abnormal. MPV (test code = 55091-0) 11.2 fL 9.5-12.9 NRBC/100 WBC (test code = 9102924719) 0.0 See_Comment [Automated [employer] ssage] The system which generated this result transmitted reference range: 0.0 - 10.0 /100 WBCs. The reference range was not used to interpret this result as normal/abnormal. NRBC x10^3 (test code = 0639066665) See_Comment [Automated [facility]] The system which generated this result transmitted reference range: 10*3/?L. The reference range was not used to interpret this result as normal/abnormal. GRAN MAT (NEUT) % (test code = 770-8) 42.7 % IMM GRAN % (test code = 5298640925) 0.10 % LYMPH % (test code = 736-9) 43.4 % MONO % (test code = 5905-5) 9.5 % EOS % (test code = 713-8) 3.5 % BASO % (test code = 706-2) 0.8 % GRAN MAT x10^3(ANC) (test code = 1172759337) 3.30 10*3/uL 1.88-7.09 IMM GRAN x10^3 (test code = 6947000239) 0.00-0.06 LYMPH x10^3 (test code = 731-0) 3.35 10*3/uL 1.32-3.29 H MONO x10^3 (test code = 742-7) 0.73 10*3/uL 0.33-0.92 EOS x10^3 (test code = 711-2) 0.27 10*3/uL 0.03-0.39 BASO x10^3 (test code = 704-7) 0.06 10*3/uL 0.01-0.07 Lab Interpretation (test code = 77607-4) [facility]normal [facility] [id number] 04:42:59* Test Item Value Reference Range Interpretation Comme nts HEMOGLOBIN A1c (test code = 87124) 9.0 % 4.2-5.6 H CITIZEN OF [place] [employer] GUIDELINES FOR HGB A1C: [...] TESTING PERFORMED AT [facility] [address] [place] [address] WATER FABRICATOR OPERATOR: LILA SHANNON M.D. [facility] NUMBER [id number] [facility] [place]. [id number] CBC W/AUTO DIFF WITH [id number] 03:45:44* Test Item Value Reference Range Interpretation [...] = 1065) 0.0 /100 WBC'S See_Comment [Automated [facility]] The system which generated this result [...] 0.00-0.10 ABS NUCLEATED RBCS (test code = 24217) 0.00 K/UL 0.00-0.11 COMPREHENSIVE METABOLIC [id number] 03:39:49* Test Item Value Reference Range Interpretation Comme nts GLUCOSE (test code = 2217) 211 MG/DL 70-99 H BUN (test code = 2207) 14 MG/DL 8-23 CREATININE (test code = 2214) 0.53 MG/DL 0.60-1.30 L eGFR (2020 CKD-EPI) (test code = 34645) 99 ML/MIN/1.73 >60 CALC BUN/CREAT (test code = 2235) 26 RATIO 6-28 SODIUM (test code = [...] as normal/abnormal. ALKALINE PHOSPHATASE (test code = 2204) 97 U/L 40-142 AST (test code = 2218) 35 U/L 9-40 ALT (test code = 2219) 44 U/L 5-40 H LIPID [id number] 03:39:49* Test Item Value Reference Range Interpretation Comme nts CHOLESTEROL (test code = 2210) 192 MG/DL <200 TRIGLYCERIDES (test code = 2232) 149 MG/DL <150 HDL CHOLESTEROL (test code = 2220) 45 MG/DL >39 CALC LDL CHOL (test code = 2237) 121 MG/DL <100 H NOTE: CALCULATED LDL IS BASED ON SANDRA-TELLO METHOD WHICHINCLUDES ADJUSTABLE TRIGLYCERIDE:VLDL CHOLESTEROL RATIO.THIS FACTOR VARIES BY MEASURED TRIGLYCERIDE AND NON-HDLCHOLESTEROL CONCENTRATIONS WITH INCREASED CALCULATED LDL SEENIN HIGHER TRIGLYCERIDE OR LOWER NON-HDL SPECIMENS. FOR MOREINFORMATION, SEE CLIENT ANNOUNCEMENT AT [email or web address] RISK RATIO LDL/HDL (test code = 2238) 2.69 RATIO <3.22 COMPREHENSIVE METABOLIC [id number] 00:00:00* Test Item Value Reference Range Interpretation Comme nts GLUCOSE (test code = 2217) 211 MG/DL BUN (test code = 2208) 14 MG/DL CREATININE (test code = 2214) 0.53 MG/DL eGFR (2020 CKD-EPI) (test co de = 62807) 99 ML/MIN/1.73 CALC BUN/CREAT (test code = 2235) 26 RATIO SODIUM (test code = 223) 143 MEQ/L POTASSIUM (test code = 2228) [...] code = 2219) 44 U/L Toney RennerLIPID [id number] 00:00:00* Test Item Value Reference Range Interpretation Comme nts CHOLESTEROL (test code = 2210) 192 MG/DL TRIGLYCERIDES (test code = 2232) 149 MG/DL HDL CHOLESTEROL (test code = 2220) 45 MG/DL CALC LDL CHOL (test code = 2237) 121 MG/DL RISK RATIO LDL/HDL (test cod e = 2238) 2.69 RATIO Toney RennerHEMOGLOBIN [id number] 00:00:00* Test Item Value Reference Range Interpretation Comme katty HEMOGLOBIN A1c (test code = 87551) 9.0 % Toney RennerCBC W/AUTO [id number] 00:00:00* Test Item Value Reference Range Interpretation [...] ABS NUCLEATED RBCS (test cod e = 78116) 0.00 K/UL Toney RennerCOMPREHENSIVE METABOLIC [id number] 00:00:00* Test Item Value Reference Range Interpretation Comme nts GLUCOSE (test code = 2217) 211 MG/DL BUN (test code = 2208) 14 MG/DL CREATININE (test code = 2214) 0.53 MG/DL eGFR (2020 CKD-EPI) (test co de = 29167) 99 ML/MIN/1.73 CALC BUN/CREAT (test code = [...] code = 2219) 44 U/L Toney RennerLIPID [id number] 00:00:00* Test Item Value Reference Range Interpretation Comme nts CHOLESTEROL (test code = 2210) 192 MG/DL TRIGLYCERIDES (test code = 2232) 149 MG/DL HDL CHOLESTEROL (test code = 2220) 45 MG/DL CALC LDL CHOL (test code = 2237) 121 MG/DL RISK RATIO LDL/HDL (test cod e = 2238) 2.69 RATIO Toney RennerHEMOGLOBIN [id number] 00:00:00* Test Item Value Reference Range Interpretation Comme nts HEMOGLOBIN A1c (test code = 72237) 9.0 % Toney RennerCBC W/AUTO [id number] 00:00:00* Test Item Value Reference Range Interpretation [...] ABS NUCLEATED RBCS (test cod e = 41406) 0.00 K/UL Toney RennerCOMPREHENSIVE METABOLIC [id number] 00:00:00* Test Item Value Reference Range Interpretation Comme nts GLUCOSE (test code = 2217) 211 MG/DL BUN (test code = 2208) 14 MG/DL CREATININE (test code = 2214) 0.53 MG/DL eGFR (2020 CKD-EPI) (test co de = 59742) 99 ML/MIN/1.73 CALC BUN/CREAT (test code = [...] code = 2219) 44 U/L Toney RennerLIPID [id number] 00:00:00* Test Item Value Reference Range Interpretation Comme nts CHOLESTEROL (test code = 2210) 192 MG/DL TRIGLYCERIDES (test code = 2232) 149 MG/DL HDL CHOLESTEROL (test code = 2220) 45 MG/DL CALC LDL CHOL (test code = 2237) 121 MG/DL RISK RATIO LDL/HDL (test cod e = 2238) 2.69 RATIO Toney RennerHEMOGLOBIN [id number] 00:00:00* Test Item Value Reference Range Interpretation Comme nts HEMOGLOBIN A1c (test code = 33150) 9.0 % Toney RennerCBC W/AUTO [id number] 00:00:00* Test Item Value Reference Range Interpretation [...] ABS NUCLEATED RBCS (test cod e = 97340) 0.00 K/UL Toney RennerCOMPREHENSIVE METABOLIC [id number] 00:00:00* Test Item Value Reference Range Interpretation Comme nts GLUCOSE (test code = 2217) 211 MG/DL BUN (test code = 2208) 14 MG/DL CREATININE (test code = 2214) 0.53 MG/DL eGFR (2020 CKD-EPI) (test co de = 01241) 99 ML/MIN/1.73 CALC BUN/CREAT (test code = [...] code = 2219) 44 U/L Toney RennerLIPID [id number] 00:00:00* Test Item Value Reference Range Interpretation Comme nts CHOLESTEROL (test code = 2210) 192 MG/DL TRIGLYCERIDES (test code = 2232) 149 MG/DL HDL CHOLESTEROL (test code = 2220) 45 MG/DL CALC LDL CHOL (test code = 2237) 121 MG/DL RISK RATIO LDL/HDL (test cod e = 2238) 2.69 RATIO Toney RennerHEMOGLOBIN [id number] 00:00:00* Test Item Value Reference Range Interpretation Comme nts HEMOGLOBIN A1c (test code = 57684) 9.0 % Toney RennerCBC W/AUTO [id number] 00:00:00* Test Item Value Reference Range Interpretation [...] ABS NUCLEATED RBCS (test cod e = 91793) 0.00 K/UL Toney RennerCOMPREHENSIVE METABOLIC [id number] 00:00:00* Test Item Value Reference Range Interpretation Comme nts GLUCOSE (test code = 2217) 211 MG/DL BUN (test code = 2208) 14 MG/DL CREATININE (test code = 2214) 0.53 MG/DL eGFR (2020 CKD-EPI) (test co de = 92932) 99 ML/MIN/1.73 CALC BUN/CREAT (test code = [...] code = 2219) 44 U/L Toney RennerLIPID [id number] 00:00:00* Test Item Value Reference Range Interpretation Comme nts CHOLESTEROL (test code = 2210) 192 MG/DL TRIGLYCERIDES (test code = 2232) 149 MG/DL HDL CHOLESTEROL (test code = 2220) 45 MG/DL CALC LDL CHOL (test code = 2237) 121 MG/DL RISK RATIO LDL/HDL (test cod e = 2238) 2.69 RATIO Toney RennerHEMOGLOBIN [id number] 00:00:00* Test Item Value Reference Range Interpretation Comme nts HEMOGLOBIN A1c (test code = 28854) 9.0 % Toney Cowan ZurdoCBC W/AUTO [id number] 00:00:00* Test Item Value Reference Range Interpretation [...] ABS NUCLEATED RBCS (test cod e = 32907) 0.00 K/UL Toney RennerCOMPREHENSIVE METABOLIC [id number] 00:00:00* Test Item Value Reference Range Interpretation Comme nts GLUCOSE (test code = 2217) 211 MG/DL BUN (test code = 2208) 14 MG/DL CREATININE (test code = 2214) 0.53 MG/DL eGFR (2020 CKD-EPI) (test co de = 27735) 99 ML/MIN/1.73 CALC BUN/CREAT (test code = [...] code = 2219) 44 U/L Toney RennerLIPID [id number] 00:00:00* Test Item Value Reference Range Interpretation Comme nts CHOLESTEROL (test code = 2210) 192 MG/DL TRIGLYCERIDES (test code = 2232) 149 MG/DL HDL CHOLESTEROL (test code = 2220) 45 MG/DL CALC LDL CHOL (test code = 2237) 121 MG/DL RISK RATIO LDL/HDL (test cod e = 2238) 2.69 RATIO Toney RennerHEMOGLOBIN [id number] 00:00:00* Test Item Value Reference Range Interpretation Comme nts HEMOGLOBIN A1c (test code = 00436) 9.0 % Toney RennerCBC W/AUTO [id number] 00:00:00* Test Item Value Reference Range Interpretation [...] ABS NUCLEATED RBCS (test cod e = 26982) 0.00 K/UL Toney RennerEDEROPONIN [id number] 04:38:13* Test Item Value Reference Range Interpretation Comme nts TROPONIN I (test code = 0032049609) 0.003 ng/mL <=0.034 FIOR (test code = [...] of biotin. Lab Interpretation (test code = 05078-4) [facility] [id number] 03:48:45* Test Item Value Reference Range Interpretation Comme [facility] NT-proBNP (test code = 6927647348) 111 pg/mL <=125 FIOR (test code = FIOR) Biotin has been reported to cause a negative bias, interpret results relative to patient's use of biotin. Lab Interpretation (test code = 42931-0) Normal [facility] [id number] 01:33:33* Test Item Value Reference Range Interpretation Comme nts TROPONIN I (test code = 2740402641) 0.004 ng/mL <=0.034 FIOR (test code = FIOR) [...] of biotin. Lab Interpretation (test code = 12601-1) [facility]AT[facility]) + [id number] 01:30:16* Test Item Value Reference Range Interpretation Comme nts CK (test code = 6094398982) 52 U/L 33-194 CK-MB (test code = 6575879866) 0.96 ng/mL <=3.50 CKMB INDEX (test code = 4639636163) 1.8 % 0.0-4.0 FIOR (test code = FIOR) Biotin has been reported to cause a negative bias, interpret results relative to patient's use of biotin. Lab Interpretation (test code = 88986-1) Normal [facility]. METABOLIC PANEL (89157)2023-03-12 01:21:56* Test Item Value Reference Range Interpretation Comme nts NA (test code = 9990706786) 140 mmol/L 135-145 K (test code = 3091701861) 4.3 mmol/L 3.5-5.0 CL (test code = 5115242556) 104 mmol/L 98-108 CO2 TOTAL (test code = 6440479500) 26 mmol/L 23-31 AGAP (test code = 6171031766) 10 2-16 BUN (test code = 8010646397) 19 mg/dL 7-23 GLUCOSE (test code = 7437951867) 107 mg/dL 70-110 CREATININE (test code = 5287390703) 0.48 mg/dL 0.50-1.04 L TOTAL BILI (test code = 6036705546) 0.7 mg/dL 0.1-1.1 CALCIUM (test code = 1151362986) 9.6 mg/dL 8.6-10.6 T PROTEIN (test code = 6853356799) 7.7 g/dL 6.3-8.2 ALBUMIN (test code = 5264903877) 4.2 g/dL 3.5-5.0 ALK PHOS (test code = 0870795009) 75 U/L 34-122 ALTv (test code = 1742-6) 49 U/L 5-35 H AST(SGOT) (test code = 9280985985) 44 U/L 13-40 H eGFR (test code = 3715915660) 127.5 mL/min/1.73m2 FIOR (test code = FIOR) [...] imaging tests). Lab Interpretation (test code = 99068-4) [facility] 01:21:36* Test Item Value Reference Range Interpretation Comme nts LIPASE (test code = 8172756726) 114 U/L 0-220 Lab Interpretation (test cod e = 62359-1) Normal [facility] WITH [id number] 01:11:52* Test Item Value Reference Range Interpretation Comme nts WBC (test code = 6690-2) 8.90 See_Comment [Automated [facility] [employer]] The system which generated this result transmitted reference range: 4.30 - 11.10 10*3/?L. The reference range was not used to interpret this result as normal/abnormal. RBC (test code = 789-8) 4.55 See_Comment [Automated [facility] [employer]] The system which generated this result transmitted [...] 32.1 g/dL 31.6-35.1 RDW-SD (test code = 06782-5) 43.5 fL 39.0-49.9 RDW-CV (test code = 788-0) 13.3 % 12.0-15.5 PLT (test code = 777-3) 212 See_Comment [Automated messa ge] The system which generated this result transmitted reference range: 166 - 358 10*3/?L. The reference range was not used to interpret this result as normal/abnormal. MPV (test code = 22181-5) 11.4 fL 9.5-12.9 NRBC/100 WBC (test code = 2138910002) 0.0 See_Comment [Automated [employer] ssage] The system which generated this result transmitted reference range: 0.0 - 10.0 /100 WBCs. The reference range was not used to interpret this result as normal/abnormal. NRBC x10^3 (test code = 5806085819) See_Comment [[facility]] The system which generated this result transmitted reference range: 10*3/?L. The reference range was not used to interpret this result as normal/abnormal. GRAN MAT (NEUT) % (test code = 770-8) 45.6 % IMM GRAN % (test code = 4236985253) 0.40 % LYMPH % (test code = 736-9) 41.9 % MONO % (test code = 5905-5) 8.1 % EOS % (test code = 713-8) 3.6 % BASO % (test code = 706-2) 0.4 % GRAN MAT x10^3(ANC) (test code = 7628670792) 4.05 10*3/uL 1.88-7.09 IMM GRAN x10^3 (test code = 7199291915) 0.04 10*3/uL 0.00-0.06 LYMPH x10^3 (test code = 731-0) 3.73 10*3/uL 1.32-3.29 H MONO x10^3 (test code = 742-7) 0.72 10*3/uL 0.33-0.92 EOS x10^3 (test code = 711-2) 0.32 10*3/uL 0.03-0.39 BASO x10^3 (test code = 704-7) 0.04 10*3/uL 0.01-0.07 Lab Interpretation (test code = 99442-5) [facility] [id number] 21:58:23* Test Item Value Reference Range Interpretation Comme nts HEMOGLOBIN A1c (test code = 69522) 10.0 % 4.2-5.6 H CITIZEN OF [employer] GUIDELINES FOR HGB A1C: [...] CONSIDER ALTERNATE TESTING OR LABORATORY CONSULTATION. HEMOGLOBIN [id number] 00:00:00* Test Item Value Reference Range Interpretation Comme nts HEMOGLOBIN A1c (test code = 38000) 10.0 % Toney Camryn AustinHEMOGLOBIN [id number] 00:00:00* Test Item Value Reference Range Interpretation Comme nts HEMOGLOBIN A1c (test code = 28133) 10.0 % Toney F AustinHEMOGLOBIN [id number] 00:00:00* Test Item Value Reference Range Interpretation Comme nts HEMOGLOBIN A1c (test code = 48139) 10.0 % Toney F AustinHEMOGLOBIN [id number] 00:00:00* Test Item Value Reference Range Interpretation Comme nts HEMOGLOBIN A1c (test code = 57204) 10.0 % Toney F AustinHEMOGLOBIN [id number] 00:00:00* Test Item Value Reference Range Interpretation Comme nts HEMOGLOBIN A1c (test code = 94171) 10.0 % Toney F AustinHEMOGLOBIN [id number] 00:00:00* Test Item Value Reference Range Interpretation Comme nts HEMOGLOBIN A1c (test code = 59464) 10.0 % Toney Cowan AustinLIPID [id number] 06:17:57* Test Item Value Reference Range Interpretation Comme nts CHOLESTEROL (test code = 2210) 219 MG/DL <200 H TRIGLYCERIDES (test code = 2232) 137 MG/DL <150 HDL CHOLESTEROL (test code = 2220) 49 MG/DL >39 CALC LDL CHOL (test code = 2237) 144 MG/DL <100 H NOTE: CALCULATED LDL IS BASED ON SANDRA-TELLO METHOD WHICHINCLUDES ADJUSTABLE TRIGLYCERIDE:VLDL CHOLESTEROL RATIO.THIS FACTOR VARIES BY MEASURED TRIGLYCERIDE AND NON-HDLCHOLESTEROL CONCENTRATIONS WITH INCREASED CALCULATED LDL SEENIN HIGHER TRIGLYCERIDE OR LOWER NON-HDL SPECIMENS. FOR MOREINFORMATION, SEE CLIENT ANNOUNCEMENT AT [email or web address] RISK RATIO LDL/HDL (test code = 2238) 2.94 RATIO <3.22 COMPREHENSIVE METABOLIC [id number] 06:17:57* Test Item Value Reference Range Interpretation Comme nts GLUCOSE (test code = 2217) 195 MG/DL 70-99 H BUN (test code = 2208) 12 MG/DL 8-23 CREATININE (test code = 2214) 0.52 MG/DL 0.60-1.30 L eGFR (2020 CKD-EPI) (test code = 64136) 99 ML/MIN/1.73 >60 CALC BUN/CREAT (test code = 2235) 23 RATIO 6-28 SODIUM (test code = 223) 143 MEQ/L 133-146 POTASSIUM (test code = 2228) 4.3 MEQ/L 3.5-5.4 CHLORIDE (test code = 2215) 104 MEQ/L 95-107 CARBON DIOXIDE (test code = 2206) 26 MEQ/L 19-31 CALCIUM (test code = 2209) 10.1 MG/DL 8.5-10.5 PROTEIN, TOTAL (test code = 222) 7.1 G/DL 6.1-8.3 ALBUMIN (test code = 2201) 4.2 G/DL 3.5-5.2 CALC GLOBULIN (test code = 2240) 2.9 G/DL 1.9-3.7 CALC A/G RATIO (test code = 2234) 1.4 RATIO 1.0-2.6 BILIRUBIN, TOTAL (test code = 2207) 0.2 MG/DL See_Comment [Automated me ssage] The system which generated this result transmitted reference range: <=1.2. The reference range was not used to interpret this result as normal/abnormal. ALKALINE PHOSPHATASE (test code = 2204) 102 U/L 40-142 AST (test code = 2218) 26 U/L 9-40 ALT (test code = 2219) 29 U/L 5-40 [facility] has impo rtant pathology staff changes effective 12/25/2022. New pathology staff will provide uninterrupted, excellent patient care and clinical consultation. See URL: [email or web address]. UNLESS OTHERWISE INDICATED, ALL TESTING PERFORMED AT [facility] [address] [place] [address] WATER FABRICATOR OPERATOR: LILA SHANNON M.D. [place] NUMBER [id number] [facility] [place] [place]. [id number] LIPID [id number] 00:00:00* Test Item Value Reference Range Interpretation Comme nts CHOLESTEROL (test code = 2210) 219 MG/DL TRIGLYCERIDES (test code = 2232) 137 MG/DL HDL CHOLESTEROL (test code = 2220) 49 MG/DL CALC LDL CHOL (test code = 2237) 144 MG/DL RISK RATIO LDL/HDL (test cod e = 2238) 2.94 RATIO Toneyfranklin RennerCOMPREHENSIVE METABOLIC [id number] 00:00:00* Test Item Value Reference Range Interpretation Comme nts GLUCOSE (test code = 2217) 195 MG/DL BUN (test code = 2208) 12 MG/DL CREATININE (test code = 2214) 0.52 MG/DL eGFR (2020 CKD-EPI) (test co de = 15321) 99 ML/MIN/1.73 CALC BUN/CREAT (test code = [...] (test code = 2219) 29 U/L Toney Cowan [place] [id number] 00:00:00* Test Item Value Reference Range Interpretation Comme nts CHOLESTEROL (test code = 2210) 219 MG/DL TRIGLYCERIDES (test code = 2232) 137 MG/DL HDL CHOLESTEROL (test code = 2220) 49 MG/DL CALC LDL CHOL (test code = 2237) 144 MG/DL RISK RATIO LDL/HDL (test cod e = 2238) 2.94 RATIO Toney RennerCOMPREHENSIVE METABOLIC [id number] 00:00:00* Test Item Value Reference Range Interpretation Comme nts GLUCOSE (test code = 2217) 195 MG/DL BUN (test code = 2208) 12 MG/DL CREATININE (test code = 2214) 0.52 MG/DL eGFR (2020 CKD-EPI) (test co de = 85873) 99 ML/MIN/1.73 CALC BUN/CREAT (test code = [...] (test code = 2219) 29 U/L Toney Cowan [place] [id number] 00:00:00* Test Item Value Reference Range Interpretation Comme nts CHOLESTEROL (test code = 2210) 219 MG/DL TRIGLYCERIDES (test code = 2232) 137 MG/DL HDL CHOLESTEROL (test code = 2220) 49 MG/DL CALC LDL CHOL (test code = 2237) 144 MG/DL RISK RATIO LDL/HDL (test cod e = 2238) 2.94 RATIO Toney RennerCOMPREHENSIVE METABOLIC [id number] 00:00:00* Test Item Value Reference Range Interpretation Comme nts GLUCOSE (test code = 2217) 195 MG/DL BUN (test code = 2208) 12 MG/DL CREATININE (test code = 2214) 0.52 MG/DL eGFR (2020 CKD-EPI) (test co de = 55886) 99 ML/MIN/1.73 CALC BUN/CREAT (test code = [...] (test code = 2219) 29 U/L Toney Cowan [place] [id number] 00:00:00* Test Item Value Reference Range Interpretation Comme nts CHOLESTEROL (test code = 2210) 219 MG/DL TRIGLYCERIDES (test code = 2232) 137 MG/DL HDL CHOLESTEROL (test code = 2220) 49 MG/DL CALC LDL CHOL (test code = 2237) 144 MG/DL RISK RATIO LDL/HDL (test cod e = 2238) 2.94 RATIO Toney RennerCOMPREHENSIVE METABOLIC [id number] 00:00:00* Test Item Value Reference Range Interpretation Comme nts GLUCOSE (test code = 2217) 195 MG/DL BUN (test code = 2208) 12 MG/DL CREATININE (test code = 2214) 0.52 MG/DL eGFR (2020 CKD-EPI) (test co de = 19485) 99 ML/MIN/1.73 CALC BUN/CREAT (test code = [...] (test code = 2219) 29 U/L Toney Cowan [place] [id number] 00:00:00* Test Item Value Reference Range Interpretation Comme nts CHOLESTEROL (test code = 2210) 219 MG/DL TRIGLYCERIDES (test code = 2232) 137 MG/DL HDL CHOLESTEROL (test code = 2220) 49 MG/DL CALC LDL CHOL (test code = 2237) 144 MG/DL RISK RATIO LDL/HDL (test cod e = 2238) 2.94 RATIO Toney F ZurdoCOMPREHENSIVE METABOLIC [id number] 00:00:00* Test Item Value Reference Range Interpretation Comme nts GLUCOSE (test code = 2217) 195 MG/DL BUN (test code = 2208) 12 MG/DL CREATININE (test code = 2214) 0.52 MG/DL eGFR (2020 CKD-EPI) (test co de = 73235) 99 ML/MIN/1.73 CALC BUN/CREAT (test code = [...] (test code = 2219) 29 U/L Toney RennerLIPID [id number] 00:00:00* Test Item Value Reference Range Interpretation Comme nts CHOLESTEROL (test code = 2210) 219 MG/DL TRIGLYCERIDES (test code = 2232) 137 MG/DL HDL CHOLESTEROL (test code = 2220) 49 MG/DL CALC LDL CHOL (test code = 2237) 144 MG/DL RISK RATIO LDL/HDL (test cod e = 2238) 2.94 RATIO Toney RennerCOMPREHENSIVE METABOLIC [id number] 00:00:00* Test Item Value Reference Range Interpretation Comme nts GLUCOSE (test code = 2217) 195 MG/DL BUN (test code = 2208) 12 MG/DL CREATININE (test code = 2214) 0.52 MG/DL eGFR (2020 CKD-EPI) (test co de = 63453) 99 ML/MIN/1.73 CALC BUN/CREAT (test code = [...] (test code = 2219) 29 U/L Toney Cowan [facility] METABOLIC PANEL (NA, K, CL, CO2, GLUCOSE, BUN, CREATININE, CA)2022-11-21 13:11:20* Test Item Value Reference Range Interpretation Comme nts NA (test code = 5738893322) 142 mmol/L 135-145 K (test code = 9761818755) 3.7 mmol/L 3.5-5.0 CL (test code = 0023269845) 106 mmol/L 98-108 CO2 TOTAL (test code = 9098562845) 27 mmol/L 23-31 AGAP (test code = 5145148947) 2-16 BUN (test code = 8204350468) 14 mg/dL 7-23 GLUCOSE (test code = 6660435421) 209 mg/dL 70-110 H CREATININE (test code = 2912430024) 0.49 mg/dL 0.50-1.04 L CALCIUM (test code = 0999545631) 8.9 mg/dL 8.6-10.6 eGFR (test code = 3700868152) mL/min/1.73m2 FIOR (test code = FIOR) Association [...] imaging tests). Lab Interpretation (test code = 29322-5) Abnormal [facility] METABOLIC PANEL (NA, K, CL, CO2, GLUCOSE, BUN, CREATININE, CA)2022-11-21 13:11:20* Test Item Value Reference Range Interpretation Comme nts NA (test code = 3484908123) 142 mmol/L 135-145 K (test code = 8923303379) 3.7 mmol/L 3.5-5.0 CL (test code = 9145204239) 106 mmol/L 98-108 CO2 TOTAL (test code = 1256975786) 27 mmol/L 23-31 AGAP (test code = 5813779184) 2-16 BUN (test code = 6260152288) 14 mg/dL 7-23 GLUCOSE (test code = 9034668189) 209 mg/dL 70-110 H CREATININE (test code = 0384804569) 0.49 mg/dL 0.50-1.04 L CALCIUM (test code = 8263520327) 8.9 mg/dL 8.6-10.6 eGFR (test code = 1005885242) mL/min/1.73m2 FIOR (test code = FIOR) Association [...] imaging tests). Lab Interpretation (test code = 89770-7) [facility] / [id number] 13:03:21* Test Item Value Reference Range Interpretation Comme [facility] PROTIME PATIENT (test code = 5964-2) See_Comment [Automated [employer]ant[employer]] The system which generated this result transmitted reference range: 10.1 - 12.6 Seconds. The reference range was not used to interpret this result as normal/abnormal. INR (test code = 6301-6) Normal INR <1.1; Warfarin Therapeutic range 2.0 to 3.0 or 2.5 to 3.5, depending upon the indications. Lab Interpretation (test code = 04152-3) Normal [facility] / [id number] 13:03:21* Test Item Value Reference Range Interpretation Comme nts PROTIME PATIENT (test code = 5964-2) See_Comment [SevenLunches] The system which generated this result transmitted reference range: 10.1 - 12.6 Seconds. The reference range was not used to interpret this result as normal/abnormal. INR (test code = 6301-6) Normal INR <1.1; Warfarin Therapeutic range 2.0 to 3.0 or 2.5 to 3.5, depending upon the indications. Lab Interpretation (test code = 60793-1) Normal [facility] HospitalCBC WITH [id number] 13:00:20* Test Item Value Reference Range Interpretation Comme [facility] WBC (test code = 6690-2) See_Comment [Automated [employer]os] The system which generated this result transmitted reference range: 4.30 - 11.10 10*3/?L. The reference range was not used to interpret this result as normal/abnormal. RBC (test code = 789-8) See_Comment [Automated [facility]] The system which generated this result [...] 32.1 g/dL 31.6-35.1 RDW-SD (test code = 18365-8) 45.9 fL 39.0-49.9 RDW-CV (test code = 788-0) 13.8 % 12.0-15.5 PLT (test code = 777-3) See_Comment [Automated [facility]] The system which generated this result transmitted reference range: 166 - 358 10*3/?L. The reference range was not used to interpret this result as normal/abnormal. MPV (test code = 01441-0) 11.3 fL 9.5-12.9 NRBC/100 WBC (test code = 4530481901) See_Comment [Automated [employer] ssage] The system which generated this result transmitted reference range: 0.0 - 10.0 /100 WBCs. The reference range was not used to interpret this result as normal/abnormal. NRBC x10^3 (test code = 5953008732) See_Comment [Automated [employer] ssage] The system which generated this result transmitted reference range: 10*3/?L. The reference range was not used to interpret this result as normal/abnormal. GRAN MAT (NEUT) % (test code = 770-8) 49.8 % IMM GRAN % (test code = 2864923188) 0.50 % LYMPH % (test code = 736-9) 33.3 % MONO % (test code = 5905-5) 10.5 % EOS % (test code = 713-8) 5.0 % BASO % (test code = 706-2) 0.9 % GRAN MAT x10^3(ANC) (test code = 1747078041) 3.27 10*3/uL 1.88-7.09 IMM GRAN x10^3 (test code = 8227423309) 0.03 10*3/uL 0.00-0.06 LYMPH x10^3 (test code = 731-0) 2.19 10*3/uL 1.32-3.29 MONO x10^3 (test code = 742-7) 0.69 10*3/uL 0.33-0.92 EOS x10^3 (test code = 711-2) 0.33 10*3/uL 0.03-0.39 BASO x10^3 (test code = 704-7) 0.06 10*3/uL 0.01-0.07 [facility] WITH [id number] 13:00:20* Test Item Value Reference Range Interpretation Comme nts WBC (test code = 6690-2) See_Comment [[facility]ated [facility]] The system which generated this result transmitted reference range: 4.30 - 11.10 10*3/?L. The reference range was not used to interpret this result as normal/abnormal. RBC (test code = 789-8) See_Comment [Automated [facility]] The system which generated this result [...] 32.1 g/dL 31.6-35.1 RDW-SD (test code = 34912-8) 45.9 fL 39.0-49.9 RDW-CV (test code = 788-0) 13.8 % 12.0-15.5 PLT (test code = 777-3) See_Comment [Automated messa ge] The system which generated this result transmitted reference range: 166 - 358 10*3/?L. The reference range was not used to interpret this result as normal/abnormal. MPV (test code = 83602-4) 11.3 fL 9.5-12.9 NRBC/100 WBC (test code = 5436315430) See_Comment [Automated me ssage] The system which generated this result transmitted reference range: 0.0 - 10.0 /100 WBCs. The reference range was not used to interpret this result as normal/abnormal. NRBC x10^3 (test code = 0686646102) See_Comment [Automated me ssage] The system which generated this result transmitted reference range: 10*3/?L. The reference range was not used to interpret this result as normal/abnormal. GRAN MAT (NEUT) % (test code = 770-8) 49.8 % IMM GRAN % (test code = 1658735235) 0.50 % LYMPH % (test code = 736-9) 33.3 % MONO % (test code = 5905-5) 10.5 % EOS % (test code = 713-8) 5.0 % BASO % (test code = 706-2) 0.9 % GRAN MAT x10^3(ANC) (test code = 4783988890) 3.27 10*3/uL 1.88-7.09 IMM GRAN x10^3 (test code = 3289069949) 0.03 10*3/uL 0.00-0.06 LYMPH x10^3 (test code = 731-0) 2.19 10*3/uL 1.32-3.29 MONO x10^3 (test code = 742-7) 0.69 10*3/uL 0.33-0.92 EOS x10^3 (test code = 711-2) 0.33 10*3/uL 0.03-0.39 BASO x10^3 (test code = 704-7) 0.06 10*3/uL 0.01-0.07 [facility] [id number] 06:36:16* Test Item Value Reference Range Interpretation Comme nts HEMOGLOBIN A1c (test code = 21910) 9.6 % 4.2-5.6 H CITIZEN OF [employer] GUIDELINES FOR HGB A1C: [...] OR LABORATORY CONSULTATION. CBC W/AUTO DIFF WITH [id number] 06:04:53* Test Item Value Reference Range Interpretation [...] = 1065) 0.0 /100 WBC'S See_Comment [Automated [facility]] The system which generated this result [...] 0.00-0.10 ABS NUCLEATED RBCS (test code = 48473) 0.00 K/UL 0.00-0.11 [id number] 04:35:36* Test Item Value Reference Range Interpretation Comme nts RPR RESULT (test code = 3501) NON-REACTIVE NON-REACTIVE RPR TITER (test code = 3500) NOT INDIC. TITER NOT INDIC. VITAMIN [id number] 03:46:59* Test Item Value Reference Range Interpretation Comme nts VITAMIN B-12 (test code = 2840) 510 PG/ML 200-950 UNLESS OTHERWISE INDICATED, ALL TESTING PERFORMED [facility] [address] [place] [address] WATER FABRICATOR OPERATOR: JENNIFER BECKMAN M.D. CLIA NUMBER [id number] [facility] [place]. [id number] CBC W/AUTO [id number] 00:00:00* Test Item Value Reference Range Interpretation [...] ABS NUCLEATED RBCS (test cod e = 24702) 0.00 K/UL Toney RennerHEMOGLOBIN [id number] 00:00:00* Test Item Value Reference Range Interpretation Comme nts HEMOGLOBIN A1c (test code = 18961) 9.6 % Toney [id number] 00:00:00* Test Item Value Reference Range Interpretation Comme nts RPR RESULT (test code = 3501) NON-REACTIVE RPR TITER (test code = 3500) NOT INDIC. TITER Toney RennerVITAMIN [id number] 00:00:00* Test Item Value Reference Range Interpretation Comme nts VITAMIN B-12 (test code = 2840) 510 PG/ML Toney RennerCBC W/AUTO [id number] 00:00:00* Test Item Value Reference Range Interpretation [...] ABS NUCLEATED RBCS (test cod e = 53773) 0.00 K/UL Toney RennerHEMOGLOBIN [id number] 00:00:00* Test Item Value Reference Range Interpretation Comme nts HEMOGLOBIN A1c (test code = 18787) 9.6 % Toney [id number] 00:00:00* Test Item Value Reference Range Interpretation Comme nts RPR RESULT (test code = 3501) NON-REACTIVE RPR TITER (test code = 3500) NOT INDIC. TITER Toney RennerVITAMIN [id number] 00:00:00* Test Item Value Reference Range Interpretation Comme nts VITAMIN B-12 (test code = 2840) 510 PG/ML Toney RennerCBC W/AUTO [id number] 00:00:00* Test Item Value Reference Range Interpretation [...] ABS NUCLEATED RBCS (test cod e = 95597) 0.00 K/UL [facility] [id number] 00:00:00* Test Item Value Reference Range Interpretation [...] ABS NUCLEATED RBCS (test cod e = 36562) 0.00 K/UL HEMOGLOBIN [id number] 00:00:00* Test Item Value Reference Range Interpretation Comme nts HEMOGLOBIN A1c (test code = 09662) 9.6 % [id number] 00:00:00* Test Item Value Reference Range Interpretation Comme nts RPR RESULT (test code = 3501) NON-REACTIVE RPR TITER (test code = 3500) NOT INDIC. TITER VITAMIN [id number] 00:00:00* Test Item Value Reference Range Interpretation Comme nts VITAMIN B-12 (test code = 2840) 510 PG/ML CBC W/AUTO [id number] 00:00:00* Test Item Value Reference Range Interpretation [...] ABS NUCLEATED RBCS (test cod e = 65740) 0.00 K/UL HEMOGLOBIN [id number] 00:00:00* Test Item Value Reference Range Interpretation Comme nts HEMOGLOBIN A1c (test code = 47926) 9.6 % [id number] 00:00:00* Test Item Value Reference Range Interpretation Comme nts RPR RESULT (test code = 3501) NON-REACTIVE RPR TITER (test code = 3500) NOT INDIC. TITER VITAMIN [id number] 00:00:00* Test Item Value Reference Range Interpretation Comme nts VITAMIN B-12 (test code = 2840) 510 PG/ML CBC W/AUTO [id number] 00:00:00* Test Item Value Reference Range Interpretation [...] ABS NUCLEATED RBCS (test cod e = 00192) 0.00 K/UL HEMOGLOBIN [id number] 00:00:00* Test Item Value Reference Range Interpretation Comme nts HEMOGLOBIN A1c (test code = 21323) 9.6 % [id number] 00:00:00* Test Item Value Reference Range Interpretation Comme nts RPR RESULT (test code = 3501) NON-REACTIVE RPR TITER (test code = 3500) NOT INDIC. TITER VITAMIN [id number] 00:00:00* Test Item Value Reference Range Interpretation Comme nts VITAMIN B-12 (test code = 2840) 510 PG/ML CBC W/AUTO [id number] 00:00:00* Test Item Value Reference Range Interpretation [...] ABS NUCLEATED RBCS (test cod e = 97275) 0.00 K/UL HEMOGLOBIN [id number] 00:00:00* Test Item Value Reference Range Interpretation Comme [facility] HEMOGLOBIN A1c (test code = 23215) 9.6 % [id number] 00:00:00* Test Item Value Reference Range Interpretation Comme [facility] RPR RESULT (test code = 3501) NON-REACTIVE RPR TITER (test code = 3500) NOT INDIC. TITER VITAMIN [id number] 00:00:00* Test Item Value Reference Range Interpretation Comme [facility] VITAMIN B-12 (test code = 2840) 510 PG/ML HEMOGLOBIN [id number] 00:00:00* Test Item Value Reference Range Interpretation Comme nts HEMOGLOBIN A1c (test code = 51908) 9.6 % Toney [id number] 00:00:00* Test Item Value Reference Range Interpretation Comme nts RPR RESULT (test code = 3501) NON-REACTIVE RPR TITER (test code = 3500) NOT INDIC. TITER Toney RennerVITAMIN [id number] 00:00:00* Test Item Value Reference Range Interpretation Comme nts VITAMIN B-12 (test code = 2840) 510 PG/ML Toney RennerCBC W/AUTO [id number] 00:00:00* Test Item Value Reference Range Interpretation [...] ABS NUCLEATED RBCS (test cod e = 37086) 0.00 K/UL Toney RennerHEMOGLOBIN [id number] 00:00:00* Test Item Value Reference Range Interpretation Comme nts HEMOGLOBIN A1c (test code = 65470) 9.6 % Toney [id number] 00:00:00* Test Item Value Reference Range Interpretation Comme nts RPR RESULT (test code = 3501) NON-REACTIVE RPR TITER (test code = 3500) NOT INDIC. TITER Toney RennerVITAMIN [id number] 00:00:00* Test Item Value Reference Range Interpretation Comme nts VITAMIN B-12 (test code = 2840) 510 PG/ML Toney RennerCBC W/AUTO [id number] 00:00:00* Test Item Value Reference Range Interpretation [...] ABS NUCLEATED RBCS (test cod e = 84146) 0.00 K/UL Toney RennerHEMOGLOBIN [id number] 00:00:00* Test Item Value Reference Range Interpretation Comme nts HEMOGLOBIN A1c (test code = 93044) 9.6 % Toney [id number] 00:00:00* Test Item Value Reference Range Interpretation Comme nts RPR RESULT (test code = 3501) NON-REACTIVE RPR TITER (test code = 3500) NOT INDIC. TITER Toney RennerVITAMIN [id number] 00:00:00* Test Item Value Reference Range Interpretation Comme nts VITAMIN B-12 (test code = 2840) 510 PG/ML Toney RennerCBC W/AUTO [id number] 00:00:00* Test Item Value Reference Range Interpretation [...] ABS NUCLEATED RBCS (test cod e = 74108) 0.00 K/UL Toney RennerHEMOGLOBIN [id number] 00:00:00* Test Item Value Reference Range Interpretation Comme nts HEMOGLOBIN A1c (test code = 81552) 9.6 % Toney [id number] 00:00:00* Test Item Value Reference Range Interpretation Comme nts RPR RESULT (test code = 3501) NON-REACTIVE RPR TITER (test code = 3500) NOT INDIC. TITER Toney RennerVITAMIN [id number] 00:00:00* Test Item Value Reference Range Interpretation Comme nts VITAMIN B-12 (test code = 2840) 510 PG/ML [facility] 16:54:10* Test Item Value Reference Range Interpretation Comme nts POCT GLU (test code = 1979479009) 194 mg/dL 70-110 H Lab Interpretation (test cod e = 61473-7) Abnormal [facility] GLUCOSE (AUTOMATED)2022-08-02 12:46:27* Test Item Value Reference Range Interpretation Comme nts POCT GLU (test code = 0371492076) 184 mg/dL 70-110 H Lab Interpretation (test cod e = 39500-8) Abnormal [facility] GLUCOSE (AUTOMATED)2022-08-01 21:39:34* Test Item Value Reference Range Interpretation Comme nts POCT GLU (test code = 7370158581) 178 mg/dL 70-110 H Lab Interpretation (test cod e = 16483-4) Abnormal [facility] GLUCOSE (AUTOMATED)2022-08-01 16:52:06* Test Item Value Reference Range Interpretation Comme nts POCT GLU (test code = 9499821575) 177 mg/dL 70-110 H Lab Interpretation (test cod e = 56142-7) Abnormal [facility] GLUCOSE (AUTOMATED)2022-08-01 16:49:53* Test Item Value Reference Range Interpretation Comme nts POCT GLU (test code = 1032431035) 184 mg/dL 70-110 H Lab Interpretation (test cod e = 24918-7) Abnormal [facility] GLUCOSE (AUTOMATED)2022-08-01 12:48:55* Test Item Value Reference Range Interpretation Comme nts POCT GLU (test code = 4418106435) 180 mg/dL 70-110 H Lab Interpretation (test cod e = 35897-1) Abnormal [facility] GLUCOSE (AUTOMATED)2022-08-01 01:05:36* Test Item Value Reference Range Interpretation Comme [facility] POCT GLU (test code = 6823080264) 217 mg/dL 70-110 H Lab Interpretation (test cod e = 87648-2) [facility]22-[facility]-31 22:39:50* Test Item Value Reference Range Interpretation Comme nts Height (test code = 0271864700) in Weight (test code = 2645590878) lbs Systolic BP (test code = 9161599459) mmHg Diastolic BP (test code = 0407588656) mmHg Heart Rate (test code = 3838145165) bpm BSA (test code = 2800245108) 1.76 m2 Ao root diam (test code = 8127979000) 3.20 cm Aortic root (test code = 8441359065) 3.2 cm Ao root annulus (test code = 2862627048) 3.2 cm LVOT diameter (test code = 8364360583) 1.90 cm LVOT area (test code = 1140006364) 2.80 cm2 LVIDD (test code = 5436909366) 4.20 cm Left Ventricular End Diastolic Volume by Teichholz Method (test code = 7321886) 77.7 mL IVS (test code = 9981404883) 1.31 cm Interventricular Septum Diastolic Thickness by 2D (test code = 4157651) 1.31 cm LVPWD (test code = 3385640410) 1.31 cm PW (test code = 8721620449) 1.31 cm 0.6-1.1 EF(Teich) (test code = 0977898854) 60.50 % LVIDS (test code = 5941628233) 2.80 cm Left Ventricular End Systolic Volume by Teichholz Method (test code = 1094660) 30.7 mL FS (test code = 2547314316) 32 % EF - 2D (test code = 85524799) 60.50 % LA size (test code = 5300968269) 3.5 cm TR Peak Rebekah (test code = 9426047982) 226.6 cm/s Triscuspid Valve Regurgitation Peak Gradient (test code = 9086301567) mmHg Pulmonic Regurgitant End Max Velocity (test code = 9435692432) 86.0 cm/s LAV(MOD-sp4) (test code = 2690734280) 42.30 mL E wave decelartion time (test code = 9455090952) 0.31 s MV stenosis pressure 1/2 time (test code = 9497966654) 93.6 ms MV Peak E Rebekah (test code = 0805360667) 62.3 cm/s MV Peak A Rebekah (test code = 4922624219) 81.2 cm/s E/A ratio (test code = 3121365199) ratio MV Prop V (test code = 2340350586) 21.70 cm/s MV E/e' septal (test code = 2503602316) 6.9 cm/s Tapse (test code = 6009592377) 2.15 cm LVOT stroke volume (test code = 7134089801) 53.70 cm3 LVOT peak rebekah (test code = 2155389929) 82.7 cm/s LVOT mn grad (test code = 3412536118) mmHg AV LVOT peak gradient (test code = 7204970404) mmHg LVOT peak VTI (test code = 3344216047) 18.9 cm LV V1 mean (test code = 3157906879) 53.70 cm/s AV regurgitation pressure 1/2 time (test code = 5011931490) 774.6 ms AI dec slope (test code = 2858289370) 179.20 cm/s2 AI max rebekah (test code = 0150894573) 473.80 cm/s AI max PG (test code = 2097035002) 89.80 mm[Hg] Aortic valve mean velocity (test code = 0738306303) 104.6 cm/s Ao peak rebekah (test code = 3890561325) 150.2 cm/s Ao VTI (test code = 0084745033) 32.4 cm AV area by cont VTI (test code = 5102872333) 1.7 cm2 AV area peak rebekah (test code = 7140440242) 1.6 cm2 Ao max PG (test code = 9558028108) 9.00 mm[Hg] AV peak gradient (test code = 3047661154) mmHg AV valve area (test code = 1272635513) 1.66 cm2 AV mean gradient (test code = 3064860288) mmHg MR max PG (test code = 9241216930) 89.70 mm[Hg] MR max rebekah (test code = 2455037330) 473.00 cm/s Mr max rebekah (test code = 7529692413) 473.0 m/s Radiology Study observation (narrative) (test code = 56988-4) FIOR (test code = FIOR) ?Left?Ventricle: Left [...] 2D, color flow Doppler and spectral Doppler. [facility] GLUCOSE (AUTOMATED)2022-07-31 21:44:50* Test Item Value Reference Range Interpretation Comme [facility] POCT GLU (test code = 6854405513) 219 mg/dL 70-110 H Lab Interpretation (test cod e = 67320-3) Abnormal [facility] GLUCOSE (AUTOMATED)2022-07-31 12:48:44* Test Item Value Reference Range Interpretation Comme [facility] POCT GLU (test code = 0172746385) 201 mg/dL 70-110 H Lab Interpretation (test cod e = 15282-9) [facility] [id number] 09:11:42SPECIMEN NUMBER: [id number] CULTURE, URINE SPECIMEN NUMBER: [id number] SPECIMEN COMMENT: URINE SOURCE: URINE REPORT STATUS: FINAL FINAL REPORT: 05/05/2022 10-50,000 CFU/ML UROGENITAL WOLF PRESENT NO COMMON PATHOGENSCULTURE, [id number] 00:00:00* Test Item Value Reference Range Interpretation Comme nts CULTURE, URINE (test code = 07591) SPECIMEN NUMBER: [id number] Toney RennerCULTURE, [id number] 00:00:00* Test Item Value Reference Range Interpretation Comme nts CULTURE, URINE (test code = 60770) SPECIMEN NUMBER: [id number] Toney RennerCULTURE, [id number] 00:00:00* Test Item Value Reference Range Interpretation Comme nts CULTURE, URINE (test code = 34240) SPECIMEN NUMBER: [id number] CULTURE, [id number] 00:00:00* Test Item Value Reference Range Interpretation Comme nts CULTURE, URINE (test code = 50777) SPECIMEN NUMBER: [id number] CULTURE, [id number] 00:00:00* Test Item Value Reference Range Interpretation Comme nts CULTURE, URINE (test code = 50034) SPECIMEN NUMBER: [id number] CULTURE, [id number] 00:00:00* Test Item Value Reference Range Interpretation Comme nts CULTURE, URINE (test code = 96971) SPECIMEN NUMBER: [id number] CULTURE, [id number] 00:00:00* Test Item Value Reference Range Interpretation Comme nts CULTURE, URINE (test code = 99430) SPECIMEN NUMBER: [id number] CULTURE, [id number] 00:00:00* Test Item Value Reference Range Interpretation Comme nts CULTURE, URINE (test code = 02423) SPECIMEN NUMBER: [id number] CULTURE, [id number] 00:00:00* Test Item Value Reference Range Interpretation Comme nts CULTURE, URINE (test code = 70852) SPECIMEN NUMBER: [id number] CULTURE, [id number] 00:00:00* Test Item Value Reference Range Interpretation Comme nts CULTURE, URINE (test code = 85296) SPECIMEN NUMBER: [id number] CULTURE, [id number] 00:00:00* Test Item Value Reference Range Interpretation Comme nts CULTURE, URINE (test code = 32133) SPECIMEN NUMBER: [id number] Toney RennerCULTURE, [id number] 00:00:00* Test Item Value Reference Range Interpretation Comme nts CULTURE, URINE (test code = 62653) SPECIMEN NUMBER: [id number] Toney RennerCULTURE, [id number] 00:00:00* Test Item Value Reference Range Interpretation Comme nts CULTURE, URINE (test code = 81076) SPECIMEN NUMBER: [id number] Toney RennerCULTURE, [id number] 00:00:00* Test Item Value Reference Range Interpretation Comme nts CULTURE, URINE (test code = 33117) SPECIMEN NUMBER: [id number] Toney RennerHEMOGLOBIN [id number] 05:13:20* Test Item Value Reference Range Interpretation Comme nts HEMOGLOBIN A1c (test code = 80676) 10.2 % 4.2-5.6 H CITIZEN OF [employer] GUIDELINES FOR HGB A1C: [...] CONSULTATION. UNLESS OTHERWISE INDICATED, ALL TESTING PERFORMED [facility] [address] [place] [address] WATER FABRICATOR OPERATOR: JENNIFER BECKMAN M.D. CLIA NUMBER [id number] [facility] [place]. [id number] HEMOGLOBIN [id number] 00:00:00* Test Item Value Reference Range Interpretation Comme nts HEMOGLOBIN A1c (test code = 15404) 10.2 % Toney RennerHEMOGLOBIN [id number] 00:00:00* Test Item Value Reference Range Interpretation Comme nts HEMOGLOBIN A1c (test code = 85715) 10.2 % Toney F AustinHEMOGLOBIN [id number] 00:00:00* Test Item Value Reference Range Interpretation Comme nts HEMOGLOBIN A1c (test code = 39224) 10.2 % HEMOGLOBIN [id number] 00:00:00* Test Item Value Reference Range Interpretation Comme nts HEMOGLOBIN A1c (test code = 74793) 10.2 % HEMOGLOBIN [id number] 00:00:00* Test Item Value Reference Range Interpretation Comme nts HEMOGLOBIN A1c (test code = 83582) 10.2 % HEMOGLOBIN [id number] 00:00:00* Test Item Value Reference Range Interpretation Comme nts HEMOGLOBIN A1c (test code = 43317) 10.2 % HEMOGLOBIN [id number] 00:00:00* Test Item Value Reference Range Interpretation Comme nts HEMOGLOBIN A1c (test code = 74594) 10.2 % HEMOGLOBIN [id number] 00:00:00* Test Item Value Reference Range Interpretation Comme nts HEMOGLOBIN A1c (test code = 23362) 10.2 % HEMOGLOBIN [id number] 00:00:00* Test Item Value Reference Range Interpretation Comme nts HEMOGLOBIN A1c (test code = 30147) 10.2 % HEMOGLOBIN [id number] 00:00:00* Test Item Value Reference Range Interpretation Comme nts HEMOGLOBIN A1c (test code = 29266) 10.2 % HEMOGLOBIN [id number] 00:00:00* Test Item Value Reference Range Interpretation Comme nts HEMOGLOBIN A1c (test code = 26242) 10.2 % Toney F AustinHEMOGLOBIN [id number] 00:00:00* Test Item Value Reference Range Interpretation Comme nts HEMOGLOBIN A1c (test code = 30389) 10.2 % Toney F AustinHEMOGLOBIN [id number] 00:00:00* Test Item Value Reference Range Interpretation Comme nts HEMOGLOBIN A1c (test code = 42246) 10.2 % Toney F AustinHEMOGLOBIN [id number] 00:00:00* Test Item Value Reference Range Interpretation Comme nts HEMOGLOBIN A1c (test code = 09779) 10.2 % Toney F AustinOCCULT BLD,FECAL,IMMUNOASSAY DIAG [ADDED]2022-02-05 00:00:00* Test Item Value Reference Range Interpretation Comme nts OCCULT BLD, FECAL (test code = 06110) NEGATIVE Toney F AustinOCCULT BLD,FECAL,IMMUNOASSAY DIAG [ADDED]2022-02-05 00:00:00* Test Item Value Reference Range Interpretation Comme nts OCCULT BLD, FECAL (test code = 04946) NEGATIVE Toney F AustinOCCULT BLD,FECAL,IMMUNOASSAY DIAG [ADDED]2022-02-05 00:00:00* Test Item Value Reference Range Interpretation Comme nts OCCULT BLD, FECAL (test code = 07276) NEGATIVE Toney F AustinOCCULT BLD,FECAL,IMMUNOASSAY DIAG [ADDED]2022-02-05 00:00:00* Test Item Value Reference Range Interpretation Comme nts OCCULT BLD, FECAL (test code = 56589) NEGATIVE OCCULT BLD,FECAL,IMMUNOASSAY DIAG [ADDED]2022-02-05 00:00:00* Test Item Value Reference Range Interpretation Comme nts OCCULT BLD, FECAL (test code = 78210) NEGATIVE OCCULT BLD,FECAL,IMMUNOASSAY DIAG [ADDED]2022-02-05 00:00:00* Test Item Value Reference Range Interpretation Comme nts OCCULT BLD, FECAL (test code = 59371) NEGATIVE OCCULT BLD,FECAL,IMMUNOASSAY DIAG [ADDED]2022-02-05 00:00:00* Test Item Value Reference Range Interpretation Comme nts OCCULT BLD, FECAL (test code = 06323) NEGATIVE OCCULT BLD,FECAL,IMMUNOASSAY DIAG [ADDED]2022-02-05 00:00:00* Test Item Value Reference Range Interpretation Comme nts OCCULT BLD, FECAL (test code = 11019) NEGATIVE OCCULT BLD,FECAL,IMMUNOASSAY DIAG [ADDED]2022-02-05 00:00:00* Test Item Value Reference Range Interpretation Comme nts OCCULT BLD, FECAL (test code = 35659) NEGATIVE OCCULT BLD,FECAL,IMMUNOASSAY DIAG [ADDED]2022-02-05 00:00:00* Test Item Value Reference Range Interpretation Comme nts OCCULT BLD, FECAL (test code = 30931) NEGATIVE OCCULT BLD,FECAL,IMMUNOASSAY DIAG [ADDED]2022-02-05 00:00:00* Test Item Value Reference Range Interpretation Comme nts OCCULT BLD, FECAL (test code = 52548) NEGATIVE OCCULT BLD,FECAL,IMMUNOASSAY DIAG [ADDED]2022-02-05 00:00:00* Test Item Value Reference Range Interpretation Comme nts OCCULT BLD, FECAL (test code = 70941) NEGATIVE OCCULT BLD,FECAL,IMMUNOASSAY DIAG [ADDED]2022-02-05 00:00:00* Test Item Value Reference Range Interpretation Comme nts OCCULT BLD, FECAL (test code = 85147) NEGATIVE Toney F AustinOCCULT BLD,FECAL,IMMUNOASSAY DIAG [ADDED]2022-02-05 00:00:00* Test Item Value Reference Range Interpretation Comme nts OCCULT BLD, FECAL (test code = 02482) NEGATIVE Toney F AustinOCCULT BLD,FECAL,IMMUNOASSAY DIAG [ADDED]2022-02-05 00:00:00* Test Item Value Reference Range Interpretation Comme nts OCCULT BLD, FECAL (test code = 98869) NEGATIVE Toneyfranklin RennerCOMPREHENSIVE METABOLIC [id number] 05:33:23* Test Item Value Reference Range Interpretation Comme nts GLUCOSE (test code = 221) 290 MG/DL 70-99 H BUN (test code = 2207) 16 MG/DL 8-23 CREATININE (test code = 2214) 0.48 MG/DL 0.60-1.30 L eGFR (2020 CKD-EPI) (test code = 96158) 102 ML/MIN/1.73 >60 CALC BUN/CREAT (test code = 2235) 33 RATIO 6-28 H SODIUM (test code = 2231) 142 MEQ/L 133-146 POTASSIUM (test code = 2228) 4.5 MEQ/L 3.5-5.4 CHLORIDE (test code = 2215) 102 MEQ/L 95-107 CARBON DIOXIDE (test code = 2206) 26 MEQ/L 19-31 CALCIUM (test code = 2209) 9.7 MG/DL 8.5-10.5 PROTEIN, TOTAL (test code = 222) 7.5 G/DL 6.1-8.3 ALBUMIN (test code = 2201) 4.3 G/DL 3.5-5.2 CALC GLOBULIN (test code = 2240) 3.2 G/DL 1.9-3.7 CALC A/G RATIO (test code = 2234) 1.3 RATIO 1.0-2.6 BILIRUBIN, TOTAL (test code = 2206) 0.7 MG/DL See_Comment [Automated me ssage] The system which generated this result transmitted reference range: <=1.2. The reference range was not used to interpret this result as normal/abnormal. ALKALINE PHOSPHATASE (test code = 2204) 111 U/L 40-142 AST (test code = 2218) 24 U/L 9-40 ALT (test code = 2219) 29 U/L 5-40 LIPID [id number] 05:33:23* Test Item Value Reference Range Interpretation Comme nts CHOLESTEROL (test code = 2210) 168 MG/DL <200 TRIGLYCERIDES (test code = 2232) 99 MG/DL <150 HDL CHOLESTEROL (test code = 2220) 52 MG/DL >39 CALC LDL CHOL (test code = 2237) 97 MG/DL <100 NOTE: CALCULATED LDL IS BASED ON SANDRA-TELLO METHOD WHICHINCLUDES ADJUSTABLE TRIGLYCERIDE:VLDL CHOLESTEROL RATIO.THIS FACTOR VARIES BY MEASURED TRIGLYCERIDE AND NON-HDLCHOLESTEROL CONCENTRATIONS WITH INCREASED CALCULATED LDL SEENIN HIGHER TRIGLYCERIDE OR LOWER NON-HDL SPECIMENS. FOR MOREINFORMATION, SEE CLIENT ANNOUNCEMENT AT [email or web address] RISK RATIO LDL/HDL (test code = 2238) 1.87 RATIO <3.22 HEMOGLOBIN [id number] 04:54:03* Test Item Value Reference Range Interpretation Comme nts HEMOGLOBIN A1c (test code = 77475) 11.2 % 4.2-5.6 H CITIZEN OF [employer] GUIDELINES FOR HGB A1C: [...] CONSULTATION. UNLESS OTHERWISE INDICATED, ALL TESTING PERFORMED [facility] [address] [place] [address] WATER FABRICATOR OPERATOR: JENNIFER BECKMAN M.D. CLIA NUMBER [id number] [place]. [id number] CBC W/AUTO DIFF WITH [id number] 04:25:48* Test Item Value Reference Range Interpretation [...] 0.00-0.10 ABS NUCLEATED RBCS (test code = 22926) 0.00 K/UL 0.00-0.11 COMPREHENSIVE METABOLIC [id number] 00:00:00* Test Item Value Reference Range Interpretation Comme nts GLUCOSE (test code = 2217) 290 MG/DL BUN (test code = 2208) 16 MG/DL CREATININE (test code = 2214) 0.48 MG/DL eGFR (2020 CKD-EPI) (test code = 59804) 102 ML/MIN/1.73 CALC BUN/CREAT (test code = [...] (test code = 2219) 29 U/L Toney Cowan ZurdoLIPID [id number] 00:00:00* Test Item Value Reference Range Interpretation Comme nts CHOLESTEROL (test code = 2210) 168 MG/DL TRIGLYCERIDES (test code = 2232) 99 MG/DL HDL CHOLESTEROL (test code = 2220) 52 MG/DL CALC LDL CHOL (test code = 2237) 97 MG/DL RISK RATIO LDL/HDL (test cod e = 2238) 1.87 RATIO Toney RennerHEMOGLOBIN [id number] 00:00:00* Test Item Value Reference Range Interpretation Comme nts HEMOGLOBIN A1c (test code = 98597) 11.2 % Toney Cowan ZurdoCBC W/AUTO [id number] 00:00:00* Test Item Value Reference Range Interpretation [...] ABS NUCLEATED RBCS (test cod e = 16363) 0.00 K/UL Toney RennerCOMPREHENSIVE METABOLIC [id number] 00:00:00* Test Item Value Reference Range Interpretation Comme nts GLUCOSE (test code = 2217) 290 MG/DL BUN (test code = 2208) 16 MG/DL CREATININE (test code = 2214) 0.48 MG/DL eGFR (2020 CKD-EPI) (test code = 70010) 102 ML/MIN/1.73 CALC BUN/CREAT (test code = [...] (test code = 2219) 29 U/L Toney RennerLIPID [id number] 00:00:00* Test Item Value Reference Range Interpretation Comme nts CHOLESTEROL (test code = 2210) 168 MG/DL TRIGLYCERIDES (test code = 2232) 99 MG/DL HDL CHOLESTEROL (test code = 2220) 52 MG/DL CALC LDL CHOL (test code = 2237) 97 MG/DL RISK RATIO LDL/HDL (test cod e = 2238) 1.87 RATIO Toney RennerHEMOGLOBIN [id number] 00:00:00* Test Item Value Reference Range Interpretation Comme nts HEMOGLOBIN A1c (test code = 43679) 11.2 % Toney RennerCBC W/AUTO [id number] 00:00:00* Test Item Value Reference Range Interpretation [...] ABS NUCLEATED RBCS (test cod e = 13237) 0.00 K/UL COMPREHENSIVE METABOLIC [id number] 00:00:00* Test Item Value Reference Range Interpretation Comme nts GLUCOSE (test code = 2217) 290 MG/DL BUN (test code = 2208) 16 MG/DL CREATININE (test code = 2214) 0.48 MG/DL eGFR (2020 CKD-EPI) (test code = 74288) 102 ML/MIN/1.73 CALC BUN/CREAT (test code = [...] (test code = 2219) 29 U/L LIPID [id number] 00:00:00* Test Item Value Reference Range Interpretation Comme nts CHOLESTEROL (test code = 2210) 168 MG/DL TRIGLYCERIDES (test code = 2232) 99 MG/DL HDL CHOLESTEROL (test code = 2220) 52 MG/DL CALC LDL CHOL (test code = 2237) 97 MG/DL RISK RATIO LDL/HDL (test cod e = 2238) 1.87 RATIO HEMOGLOBIN [id number] 00:00:00* Test Item Value Reference Range Interpretation Comme nts HEMOGLOBIN A1c (test code = 49056) 11.2 % CBC W/AUTO [id number] 00:00:00* Test Item Value Reference Range Interpretation [...] ABS NUCLEATED RBCS (test cod e = 62609) 0.00 K/UL COMPREHENSIVE METABOLIC [id number] 00:00:00* Test Item Value Reference Range Interpretation Comme nts GLUCOSE (test code = 2217) 290 MG/DL BUN (test code = 2208) 16 MG/DL CREATININE (test code = 2214) 0.48 MG/DL eGFR (2020 CKD-EPI) (test code = 37913) 102 ML/MIN/1.73 CALC BUN/CREAT (test code = [...] (test code = 2219) 29 U/L LIPID [id number] 00:00:00* Test Item Value Reference Range Interpretation Comme nts CHOLESTEROL (test code = 2210) 168 MG/DL TRIGLYCERIDES (test code = 2232) 99 MG/DL HDL CHOLESTEROL (test code = 2220) 52 MG/DL CALC LDL CHOL (test code = 2237) 97 MG/DL RISK RATIO LDL/HDL (test cod e = 2238) 1.87 RATIO HEMOGLOBIN [id number] 00:00:00* Test Item Value Reference Range Interpretation Comme nts HEMOGLOBIN A1c (test code = 10532) 11.2 % CBC W/AUTO [id number] 00:00:00* Test Item Value Reference Range Interpretation [...] ABS NUCLEATED RBCS (test cod e = 16451) 0.00 K/UL COMPREHENSIVE METABOLIC [id number] 00:00:00* Test Item Value Reference Range Interpretation Comme nts GLUCOSE (test code = 2217) 290 MG/DL BUN (test code = 2208) 16 MG/DL CREATININE (test code = 2214) 0.48 MG/DL eGFR (2020 CKD-EPI) (test code = 48792) 102 ML/MIN/1.73 CALC BUN/CREAT (test code = [...] (test code = 2219) 29 U/L LIPID [id number] 00:00:00* Test Item Value Reference Range Interpretation Comme nts CHOLESTEROL (test code = 2210) 168 MG/DL TRIGLYCERIDES (test code = 2232) 99 MG/DL HDL CHOLESTEROL (test code = 2220) 52 MG/DL CALC LDL CHOL (test code = 2237) 97 MG/DL RISK RATIO LDL/HDL (test cod e = 2238) 1.87 RATIO HEMOGLOBIN [id number] 00:00:00* Test Item Value Reference Range Interpretation Comme nts HEMOGLOBIN A1c (test code = 46032) 11.2 % CBC W/AUTO [id number] 00:00:00* Test Item Value Reference Range Interpretation [...] ABS NUCLEATED RBCS (test cod e = 90567) 0.00 K/UL COMPREHENSIVE METABOLIC [id number] 00:00:00* Test Item Value Reference Range Interpretation Comme nts GLUCOSE (test code = 2217) 290 MG/DL BUN (test code = 2208) 16 MG/DL CREATININE (test code = 2214) 0.48 MG/DL eGFR (2020 CKD-EPI) (test code = 29344) 102 ML/MIN/1.73 CALC BUN/CREAT (test code = [...] (test code = 2219) 29 U/L LIPID [id number] 00:00:00* Test Item Value Reference Range Interpretation Comme nts CHOLESTEROL (test code = 2210) 168 MG/DL TRIGLYCERIDES (test code = 2232) 99 MG/DL HDL CHOLESTEROL (test code = 2220) 52 MG/DL CALC LDL CHOL (test code = 2237) 97 MG/DL RISK RATIO LDL/HDL (test cod e = 2238) 1.87 RATIO HEMOGLOBIN [id number] 00:00:00* Test Item Value Reference Range Interpretation Comme nts HEMOGLOBIN A1c (test code = 13429) 11.2 % CBC W/AUTO [id number] 00:00:00* Test Item Value Reference Range Interpretation [...] ABS NUCLEATED RBCS (test cod e = 30184) 0.00 K/UL COMPREHENSIVE METABOLIC [id number] 00:00:00* Test Item Value Reference Range Interpretation Comme nts GLUCOSE (test code = 2217) 290 MG/DL BUN (test code = 2208) 16 MG/DL CREATININE (test code = 2214) 0.48 MG/DL eGFR (2020 CKD-EPI) (test code = 66302) 102 ML/MIN/1.73 CALC BUN/CREAT (test code = [...] (test code = 2219) 29 U/L LIPID [id number] 00:00:00* Test Item Value Reference Range Interpretation Comme nts CHOLESTEROL (test code = 2210) 168 MG/DL TRIGLYCERIDES (test code = 2232) 99 MG/DL HDL CHOLESTEROL (test code = 2220) 52 MG/DL CALC LDL CHOL (test code = 2237) 97 MG/DL RISK RATIO LDL/HDL (test cod e = 2238) 1.87 RATIO CBC W/AUTO [id number] 00:00:00* Test Item Value Reference Range Interpretation [...] ABS NUCLEATED RBCS (test cod e = 33898) 0.00 K/UL COMPREHENSIVE METABOLIC [id number] 00:00:00* Test Item Value Reference Range Interpretation Comme nts GLUCOSE (test code = 2217) 290 MG/DL BUN (test code = 2208) 16 MG/DL CREATININE (test code = 2214) 0.48 MG/DL eGFR (2020 CKD-EPI) (test code = 26020) 102 ML/MIN/1.73 CALC BUN/CREAT (test code = [...] (test code = 2219) 29 U/L HEMOGLOBIN [id number] 00:00:00* Test Item Value Reference Range Interpretation Comme nts HEMOGLOBIN A1c (test code = 02480) 11.2 % LIPID [id number] 00:00:00* Test Item Value Reference Range Interpretation Comme nts CHOLESTEROL (test code = 2210) 168 MG/DL TRIGLYCERIDES (test code = 2232) 99 MG/DL HDL CHOLESTEROL (test code = 2220) 52 MG/DL CALC LDL CHOL (test code = 2237) 97 MG/DL RISK RATIO LDL/HDL (test cod e = 2238) 1.87 RATIO HEMOGLOBIN [id number] 00:00:00* Test Item Value Reference Range Interpretation Comme nts HEMOGLOBIN A1c (test code = 62766) 11.2 % CBC W/AUTO [id number] 00:00:00* Test Item Value Reference Range Interpretation [...] ABS NUCLEATED RBCS (test cod e = 64423) 0.00 K/UL COMPREHENSIVE METABOLIC [id number] 00:00:00* Test Item Value Reference Range Interpretation Comme nts GLUCOSE (test code = 2217) 290 MG/DL BUN (test code = 2208) 16 MG/DL CREATININE (test code = 2214) 0.48 MG/DL eGFR (2020 CKD-EPI) (test code = 93306) 102 ML/MIN/1.73 CALC BUN/CREAT (test code = [...] (test code = 2219) 29 U/L LIPID [id number] 00:00:00* Test Item Value Reference Range Interpretation Comme nts CHOLESTEROL (test code = 2210) 168 MG/DL TRIGLYCERIDES (test code = 2232) 99 MG/DL HDL CHOLESTEROL (test code = 2220) 52 MG/DL CALC LDL CHOL (test code = 2237) 97 MG/DL RISK RATIO LDL/HDL (test cod e = 2238) 1.87 RATIO HEMOGLOBIN [id number] 00:00:00* Test Item Value Reference Range Interpretation Comme nts HEMOGLOBIN A1c (test code = 75563) 11.2 % CBC W/AUTO [id number] 00:00:00* Test Item Value Reference Range Interpretation [...] ABS NUCLEATED RBCS (test cod e = 77912) 0.00 K/UL COMPREHENSIVE METABOLIC [id number] 00:00:00* Test Item Value Reference Range Interpretation Comme nts GLUCOSE (test code = 2217) 290 MG/DL BUN (test code = 2208) 16 MG/DL CREATININE (test code = 2214) 0.48 MG/DL eGFR (2020 CKD-EPI) (test code = 44543) 102 ML/MIN/1.73 CALC BUN/CREAT (test code = [...] (test code = 2219) 29 U/L LIPID [id number] 00:00:00* Test Item Value Reference Range Interpretation Comme nts CHOLESTEROL (test code = 2210) 168 MG/DL TRIGLYCERIDES (test code = 2232) 99 MG/DL HDL CHOLESTEROL (test code = 2220) 52 MG/DL CALC LDL CHOL (test code = 2237) 97 MG/DL RISK RATIO LDL/HDL (test cod e = 2238) 1.87 RATIO HEMOGLOBIN [id number] 00:00:00* Test Item Value Reference Range Interpretation Comme nts HEMOGLOBIN A1c (test code = 59186) 11.2 % CBC W/AUTO [id number] 00:00:00* Test Item Value Reference Range Interpretation [...] ABS NUCLEATED RBCS (test cod e = 82585) 0.00 K/UL COMPREHENSIVE METABOLIC [id number] 00:00:00* Test Item Value Reference Range Interpretation Comme nts GLUCOSE (test code = 2217) 290 MG/DL BUN (test code = 2208) 16 MG/DL CREATININE (test code = 2214) 0.48 MG/DL eGFR (2020 CKD-EPI) (test code = 28863) 102 ML/MIN/1.73 CALC BUN/CREAT (test code = [...] (test code = 2219) 29 U/L LIPID [id number] 00:00:00* Test Item Value Reference Range Interpretation Comme nts CHOLESTEROL (test code = 2210) 168 MG/DL TRIGLYCERIDES (test code = 2232) 99 MG/DL HDL CHOLESTEROL (test code = 2220) 52 MG/DL CALC LDL CHOL (test code = 2237) 97 MG/DL RISK RATIO LDL/HDL (test cod e = 2238) 1.87 RATIO HEMOGLOBIN [id number] 00:00:00* Test Item Value Reference Range Interpretation Comme nts HEMOGLOBIN A1c (test code = 50123) 11.2 % CBC W/AUTO [id number] 00:00:00* Test Item Value Reference Range Interpretation [...] ABS NUCLEATED RBCS (test cod e = 06814) 0.00 K/UL Toney RennerCOMPREHENSIVE METABOLIC [id number] 00:00:00* Test Item Value Reference Range Interpretation Comme nts GLUCOSE (test code = 2217) 290 MG/DL BUN (test code = 2208) 16 MG/DL CREATININE (test code = 2214) 0.48 MG/DL eGFR (2020 CKD-EPI) (test code = 54953) 102 ML/MIN/1.73 CALC BUN/CREAT (test code = [...] (test code = 2219) 29 U/L Toney RennerLIPID [id number] 00:00:00* Test Item Value Reference Range Interpretation Comme nts CHOLESTEROL (test code = 2210) 168 MG/DL TRIGLYCERIDES (test code = 2232) 99 MG/DL HDL CHOLESTEROL (test code = 2220) 52 MG/DL CALC LDL CHOL (test code = 2237) 97 MG/DL RISK RATIO LDL/HDL (test cod e = 2238) 1.87 RATIO Toney RennerHEMOGLOBIN [id number] 00:00:00* Test Item Value Reference Range Interpretation Comme katty HEMOGLOBIN A1c (test code = 90297) 11.2 % Toney RennerCBC W/AUTO [id number] 00:00:00* Test Item Value Reference Range Interpretation [...] ABS NUCLEATED RBCS (test cod e = 63803) 0.00 K/UL Toney RennerCOMPREHENSIVE METABOLIC [id number] 00:00:00* Test Item Value Reference Range Interpretation Comme nts GLUCOSE (test code = 2217) 290 MG/DL BUN (test code = 2208) 16 MG/DL CREATININE (test code = 2214) 0.48 MG/DL eGFR (2020 CKD-EPI) (test code = 40269) 102 ML/MIN/1.73 CALC BUN/CREAT (test code = [...] (test code = 2219) 29 U/L Toney RennerLIPID [id number] 00:00:00* Test Item Value Reference Range Interpretation Comme nts CHOLESTEROL (test code = 2210) 168 MG/DL TRIGLYCERIDES (test code = 2232) 99 MG/DL HDL CHOLESTEROL (test code = 2220) 52 MG/DL CALC LDL CHOL (test code = 2237) 97 MG/DL RISK RATIO LDL/HDL (test cod e = 2238) 1.87 RATIO Toney RennerHEMOGLOBIN [id number] 00:00:00* Test Item Value Reference Range Interpretation Comme nts HEMOGLOBIN A1c (test code = 53348) 11.2 % Toney RennerCBC W/AUTO [id number] 00:00:00* Test Item Value Reference Range Interpretation [...] ABS NUCLEATED RBCS (test cod e = 61506) 0.00 K/UL Toney RennerCOMPREHENSIVE METABOLIC [id number] 00:00:00* Test Item Value Reference Range Interpretation Comme nts GLUCOSE (test code = 2217) 290 MG/DL BUN (test code = 2208) 16 MG/DL CREATININE (test code = 2214) 0.48 MG/DL eGFR (2020 CKD-EPI) (test code = 43756) 102 ML/MIN/1.73 CALC BUN/CREAT (test code = [...] (test code = 2219) 29 U/L Toney RennerLIPID [id number] 00:00:00* Test Item Value Reference Range Interpretation Comme nts CHOLESTEROL (test code = 2210) 168 MG/DL TRIGLYCERIDES (test code = 2232) 99 MG/DL HDL CHOLESTEROL (test code = 2220) 52 MG/DL CALC LDL CHOL (test code = 2237) 97 MG/DL RISK RATIO LDL/HDL (test cod e = 2238) 1.87 RATIO Tnoey RennerHEMOGLOBIN [id number] 00:00:00* Test Item Value Reference Range Interpretation Comme nts HEMOGLOBIN A1c (test code = 18802) 11.2 % Toney RennerCBC W/AUTO [id number] 00:00:00* Test Item Value Reference Range Interpretation [...] ABS NUCLEATED RBCS (test cod e = 29985) 0.00 K/UL Toney RennerCOMPREHENSIVE METABOLIC [id number] 00:00:00* Test Item Value Reference Range Interpretation Comme nts GLUCOSE (test code = 2217) 290 MG/DL BUN (test code = 2208) 16 MG/DL CREATININE (test code = 2214) 0.48 MG/DL eGFR (2020 CKD-EPI) (test code = 06509) 102 ML/MIN/1.73 CALC BUN/CREAT (test code = [...] (test code = 2219) 29 U/L Toney RennerLIPID [id number] 00:00:00* Test Item Value Reference Range Interpretation Comme nts CHOLESTEROL (test code = 2210) 168 MG/DL TRIGLYCERIDES (test code = 2232) 99 MG/DL HDL CHOLESTEROL (test code = 2220) 52 MG/DL CALC LDL CHOL (test code = 2237) 97 MG/DL RISK RATIO LDL/HDL (test cod e = 2238) 1.87 RATIO Toney RennerHEMOGLOBIN [id number] 00:00:00* Test Item Value Reference Range Interpretation Comme nts HEMOGLOBIN A1c (test code = 52789) 11.2 % Toney RennerCBC W/AUTO [id number] 00:00:00* Test Item Value Reference Range Interpretation [...] ABS NUCLEATED RBCS (test cod e = 10858) 0.00 K/UL Toney RennerCOMPREHENSIVE METABOLIC [id number] 00:00:00* Test Item Value Reference Range Interpretation Comme nts GLUCOSE (test code = 2217) 269 MG/DL BUN (test code = 2208) 16 MG/DL CREATININE (test code = 2214) 0.58 MG/DL eGFR (2020 CKD-EPI) (test co de = 23664) 97 ML/MIN/1.73 CALC BUN/CREAT (test code = [...] (test code = 2219) 32 U/L Toney RennerLIPID [id number] 00:00:00* Test Item Value Reference Range Interpretation Comme nts CHOLESTEROL (test code = 2210) 225 MG/DL TRIGLYCERIDES (test code = 2232) 247 MG/DL HDL CHOLESTEROL (test code = 2220) 44 MG/DL CALC LDL CHOL (test code = 2237) 141 MG/DL RISK RATIO LDL/HDL (test cod e = 2238) 3.20 RATIO Toney RennerHEMOGLOBIN [id number] 00:00:00* Test Item Value Reference Range Interpretation Comme nts HEMOGLOBIN A1c (test code = 28749) 8.6 % Toney RennerCOMPREHENSIVE METABOLIC [id number] 00:00:00* Test Item Value Reference Range Interpretation Comme nts GLUCOSE (test code = 2217) 269 MG/DL BUN (test code = 2208) 16 MG/DL CREATININE (test code = 2214) 0.58 MG/DL eGFR (2020 CKD-EPI) (test co de = 18116) 97 ML/MIN/1.73 CALC BUN/CREAT (test code = [...] (test code = 2219) 32 U/L Toney RennerLIPID [id number] 00:00:00* Test Item Value Reference Range Interpretation Comme nts CHOLESTEROL (test code = 2210) 225 MG/DL TRIGLYCERIDES (test code = 2232) 247 MG/DL HDL CHOLESTEROL (test code = 2220) 44 MG/DL CALC LDL CHOL (test code = 2237) 141 MG/DL RISK RATIO LDL/HDL (test cod e = 2238) 3.20 RATIO Toney RennerHEMOGLOBIN [id number] 00:00:00* Test Item Value Reference Range Interpretation Comme nts HEMOGLOBIN A1c (test code = 13245) 8.6 % Toney RennerCOMPREHENSIVE METABOLIC [id number] 00:00:00* Test Item Value Reference Range Interpretation Comme nts GLUCOSE (test code = 2217) 269 MG/DL BUN (test code = 2208) 16 MG/DL CREATININE (test code = 2214) 0.58 MG/DL eGFR (2020 CKD-EPI) (test co de = 16204) 97 ML/MIN/1.73 CALC BUN/CREAT (test code = [...] = 2219) 32 U/L Toney RennerCOMPREHENSIVE METABOLIC [id number] 00:00:00* Test Item Value Reference Range Interpretation Comme nts GLUCOSE (test code = 2217) 269 MG/DL BUN (test code = 2208) 16 MG/DL CREATININE (test code = 2214) 0.58 MG/DL eGFR (2020 CKD-EPI) (test co de = 20335) 97 ML/MIN/1.73 CALC BUN/CREAT (test code = [...] (test code = 2219) 32 U/L LIPID [id number] 00:00:00* Test Item Value Reference Range Interpretation Comme nts CHOLESTEROL (test code = 2210) 225 MG/DL TRIGLYCERIDES (test code = 2232) 247 MG/DL HDL CHOLESTEROL (test code = 2220) 44 MG/DL CALC LDL CHOL (test code = 2237) 141 MG/DL RISK RATIO LDL/HDL (test cod e = 2238) 3.20 RATIO HEMOGLOBIN [id number] 00:00:00* Test Item Value Reference Range Interpretation Comme nts HEMOGLOBIN A1c (test code = 57395) 8.6 % COMPREHENSIVE METABOLIC [id number] 00:00:00* Test Item Value Reference Range Interpretation Comme nts GLUCOSE (test code = 2217) 269 MG/DL BUN (test code = 2208) 16 MG/DL CREATININE (test code = 2214) 0.58 MG/DL eGFR (2020 CKD-EPI) (test co de = 09337) 97 ML/MIN/1.73 CALC BUN/CREAT (test code = [...] (test code = 2219) 32 U/L LIPID [id number] 00:00:00* Test Item Value Reference Range Interpretation Comme nts CHOLESTEROL (test code = 2210) 225 MG/DL TRIGLYCERIDES (test code = 2232) 247 MG/DL HDL CHOLESTEROL (test code = 2220) 44 MG/DL CALC LDL CHOL (test code = 2237) 141 MG/DL RISK RATIO LDL/HDL (test cod e = 2238) 3.20 RATIO HEMOGLOBIN [id number] 00:00:00* Test Item Value Reference Range Interpretation Comme nts HEMOGLOBIN A1c (test code = 84286) 8.6 % COMPREHENSIVE METABOLIC [id number] 00:00:00* Test Item Value Reference Range Interpretation Comme nts GLUCOSE (test code = 2217) 269 MG/DL BUN (test code = 2208) 16 MG/DL CREATININE (test code = 2214) 0.58 MG/DL eGFR (2020 CKD-EPI) (test co de = 13805) 97 ML/MIN/1.73 CALC BUN/CREAT (test code = [...] (test code = 2219) 32 U/L LIPID [id number] 00:00:00* Test Item Value Reference Range Interpretation Comme nts CHOLESTEROL (test code = 2210) 225 MG/DL TRIGLYCERIDES (test code = 2232) 247 MG/DL HDL CHOLESTEROL (test code = 2220) 44 MG/DL CALC LDL CHOL (test code = 2237) 141 MG/DL RISK RATIO LDL/HDL (test cod e = 2238) 3.20 RATIO HEMOGLOBIN [id number] 00:00:00* Test Item Value Reference Range Interpretation Comme nts HEMOGLOBIN A1c (test code = 02490) 8.6 % COMPREHENSIVE METABOLIC [id number] 00:00:00* Test Item Value Reference Range Interpretation Comme nts GLUCOSE (test code = 2217) 269 MG/DL BUN (test code = 2208) 16 MG/DL CREATININE (test code = 2214) 0.58 MG/DL eGFR (2020 CKD-EPI) (test co de = 61257) 97 ML/MIN/1.73 CALC BUN/CREAT (test code = [...] (test code = 2219) 32 U/L LIPID [id number] 00:00:00* Test Item Value Reference Range Interpretation Comme nts CHOLESTEROL (test code = 2210) 225 MG/DL TRIGLYCERIDES (test code = 2232) 247 MG/DL HDL CHOLESTEROL (test code = 2220) 44 MG/DL CALC LDL CHOL (test code = 2237) 141 MG/DL RISK RATIO LDL/HDL (test cod e = 2238) 3.20 RATIO HEMOGLOBIN [id number] 00:00:00* Test Item Value Reference Range Interpretation Comme nts HEMOGLOBIN A1c (test code = 44308) 8.6 % COMPREHENSIVE METABOLIC [id number] 00:00:00* Test Item Value Reference Range Interpretation Comme nts GLUCOSE (test code = 2217) 269 MG/DL BUN (test code = 2208) 16 MG/DL CREATININE (test code = 2214) 0.58 MG/DL eGFR (2020 CKD-EPI) (test co de = 72866) 97 ML/MIN/1.73 CALC BUN/CREAT (test code = [...] (test code = 2219) 32 U/L LIPID [id number] 00:00:00* Test Item Value Reference Range Interpretation Comme nts CHOLESTEROL (test code = 2210) 225 MG/DL TRIGLYCERIDES (test code = 2232) 247 MG/DL HDL CHOLESTEROL (test code = 2220) 44 MG/DL CALC LDL CHOL (test code = 2237) 141 MG/DL RISK RATIO LDL/HDL (test cod e = 2238) 3.20 RATIO HEMOGLOBIN [id number] 00:00:00* Test Item Value Reference Range Interpretation Comme nts HEMOGLOBIN A1c (test code = 73139) 8.6 % COMPREHENSIVE METABOLIC [id number] 00:00:00* Test Item Value Reference Range Interpretation Comme nts GLUCOSE (test code = 2217) 269 MG/DL BUN (test code = 2208) 16 MG/DL CREATININE (test code = 2214) 0.58 MG/DL eGFR (2020 CKD-EPI) (test co de = 26139) 97 ML/MIN/1.73 CALC BUN/CREAT (test code = [...] (test code = 2219) 32 U/L LIPID [id number] 00:00:00* Test Item Value Reference Range Interpretation Comme nts CHOLESTEROL (test code = 2210) 225 MG/DL TRIGLYCERIDES (test code = 2232) 247 MG/DL HDL CHOLESTEROL (test code = 2220) 44 MG/DL CALC LDL CHOL (test code = 2237) 141 MG/DL RISK RATIO LDL/HDL (test cod e = 2238) 3.20 RATIO HEMOGLOBIN [id number] 00:00:00* Test Item Value Reference Range Interpretation Comme nts HEMOGLOBIN A1c (test code = 96414) 8.6 % COMPREHENSIVE METABOLIC [id number] 00:00:00* Test Item Value Reference Range Interpretation Comme nts GLUCOSE (test code = 2217) 269 MG/DL BUN (test code = 2208) 16 MG/DL CREATININE (test code = 2214) 0.58 MG/DL eGFR (2020 CKD-EPI) (test co de = 67616) 97 ML/MIN/1.73 CALC BUN/CREAT (test code = [...] (test code = 2219) 32 U/L LIPID [id number] 00:00:00* Test Item Value Reference Range Interpretation Comme nts CHOLESTEROL (test code = 2210) 225 MG/DL TRIGLYCERIDES (test code = 2232) 247 MG/DL HDL CHOLESTEROL (test code = 2220) 44 MG/DL CALC LDL CHOL (test code = 2237) 141 MG/DL RISK RATIO LDL/HDL (test cod e = 2238) 3.20 RATIO HEMOGLOBIN [id number] 00:00:00* Test Item Value Reference Range Interpretation Comme nts HEMOGLOBIN A1c (test code = 23552) 8.6 % COMPREHENSIVE METABOLIC [id number] 00:00:00* Test Item Value Reference Range Interpretation Comme nts GLUCOSE (test code = 2217) 269 MG/DL BUN (test code = 2208) 16 MG/DL CREATININE (test code = 2214) 0.58 MG/DL eGFR (2020 CKD-EPI) (test co de = 44430) 97 ML/MIN/1.73 CALC BUN/CREAT (test code = [...] 2204) 95 U/L AST (test code = 221) 27 U/L ALT (test code = 2219) 32 U/L LIPID [id number] 00:00:00* Test Item Value Reference Range Interpretation Comme nts CHOLESTEROL (test code = 2210) 225 MG/DL TRIGLYCERIDES (test code = 2232) 247 MG/DL HDL CHOLESTEROL (test code = 2220) 44 MG/DL CALC LDL CHOL (test code = 2237) 141 MG/DL RISK RATIO LDL/HDL (test cod e = 2238) 3.20 RATIO HEMOGLOBIN [id number] 00:00:00* Test Item Value Reference Range Interpretation Comme nts HEMOGLOBIN A1c (test code = 17599) 8.6 % COMPREHENSIVE METABOLIC [id number] 00:00:00* Test Item Value Reference Range Interpretation Comme nts GLUCOSE (test code = 2217) 269 MG/DL BUN (test code = 8) 16 MG/DL CREATININE (test code = 2214) 0.58 MG/DL eGFR (2020 CKD-EPI) (test co de = 88740) 97 ML/MIN/1.73 CALC BUN/CREAT (test code = 2235) 28 RATIO SODIUM (test code = 2231) 140 MEQ/L POTASSIUM (test code = 2228) 4.2 MEQ/L CHLORIDE (test code = 2215) 102 MEQ/L CARBON DIOXIDE (test code = 2205) 25 MEQ/L CALCIUM (test code = 2209) [...] (test code = 2219) 32 U/L LIPID [id number] 00:00:00* Test Item Value Reference Range Interpretation Comme nts CHOLESTEROL (test code = 2210) 225 MG/DL TRIGLYCERIDES (test code = 2232) 247 MG/DL HDL CHOLESTEROL (test code = 2220) 44 MG/DL CALC LDL CHOL (test code = 2237) 141 MG/DL RISK RATIO LDL/HDL (test cod e = 2238) 3.20 RATIO HEMOGLOBIN [id number] 00:00:00* Test Item Value Reference Range Interpretation Comme nts HEMOGLOBIN A1c (test code = 92220) 8.6 % LIPID [id number] 00:00:00* Test Item Value Reference Range Interpretation Comme nts CHOLESTEROL (test code = 2210) 225 MG/DL TRIGLYCERIDES (test code = 2232) 247 MG/DL HDL CHOLESTEROL (test code = 2220) 44 MG/DL CALC LDL CHOL (test code = 2237) 141 MG/DL RISK RATIO LDL/HDL (test cod e = 2238) 3.20 RATIO Toney RennerHEMOGLOBIN [id number] 00:00:00* Test Item Value Reference Range Interpretation Comme nts HEMOGLOBIN A1c (test code = 73502) 8.6 % Toney F ZurdoCOMPREHENSIVE METABOLIC [id number] 00:00:00* Test Item Value Reference Range Interpretation Comme nts GLUCOSE (test code = 2217) 269 MG/DL BUN (test code = 2208) 16 MG/DL CREATININE (test code = 2214) 0.58 MG/DL eGFR (2020 CKD-EPI) (test co de = 63840) 97 ML/MIN/1.73 CALC BUN/CREAT (test code = [...] (test code = 2219) 32 U/L Toney RennerLIPID [id number] 00:00:00* Test Item Value Reference Range Interpretation Comme nts CHOLESTEROL (test code = 2210) 225 MG/DL TRIGLYCERIDES (test code = 2232) 247 MG/DL HDL CHOLESTEROL (test code = 2220) 44 MG/DL CALC LDL CHOL (test code = 2237) 141 MG/DL RISK RATIO LDL/HDL (test cod e = 2238) 3.20 RATIO Toney RennerHEMOGLOBIN [id number] 00:00:00* Test Item Value Reference Range Interpretation Comme katty HEMOGLOBIN A1c (test code = 00203) 8.6 % Toney RennerCOMPREHENSIVE METABOLIC [id number] 00:00:00* Test Item Value Reference Range Interpretation Comme nts GLUCOSE (test code = 2217) 269 MG/DL BUN (test code = 2208) 16 MG/DL CREATININE (test code = 2214) 0.58 MG/DL eGFR (2020 CKD-EPI) (test co de = 69868) 97 ML/MIN/1.73 CALC BUN/CREAT (test code = [...] (test code = 2219) 32 U/L Toney RennerLIPID [id number] 00:00:00* Test Item Value Reference Range Interpretation Comme nts CHOLESTEROL (test code = 2210) 225 MG/DL TRIGLYCERIDES (test code = 2232) 247 MG/DL HDL CHOLESTEROL (test code = 2220) 44 MG/DL CALC LDL CHOL (test code = 2237) 141 MG/DL RISK RATIO LDL/HDL (test cod e = 2238) 3.20 RATIO Toney Cowan AustinHEMOGLOBIN [id number] 00:00:00* Test Item Value Reference Range Interpretation Comme nts HEMOGLOBIN A1c (test code = 16586) 8.6 % Toney RennerCOMPREHENSIVE METABOLIC [id number] 00:00:00* Test Item Value Reference Range Interpretation Comme nts GLUCOSE (test code = 2217) 269 MG/DL BUN (test code = 2208) 16 MG/DL CREATININE (test code = 2214) 0.58 MG/DL eGFR (2020 CKD-EPI) (test co de = 93466) 97 ML/MIN/1.73 CALC BUN/CREAT (test code = [...] (test code = 2219) 32 U/L Toney Cowan AustinLIPID [id number] 00:00:00* Test Item Value Reference Range Interpretation Comme nts CHOLESTEROL (test code = 2210) 225 MG/DL TRIGLYCERIDES (test code = 2232) 247 MG/DL HDL CHOLESTEROL (test code = 2220) 44 MG/DL CALC LDL CHOL (test code = 2237) 141 MG/DL RISK RATIO LDL/HDL (test cod e = 2238) 3.20 RATIO Toney RennerHEMOGLOBIN [id number] 00:00:00* Test Item Value Reference Range Interpretation Comme nts HEMOGLOBIN A1c (test code = 55695) 8.6 % Toney RennerCOMPREHENSIVE METABOLIC [id number] 00:00:00* Test Item Value Reference Range Interpretation Comme nts GLUCOSE (test code = 2217) 136 MG/DL BUN (test code = 2208) 16 MG/DL CREATININE (test code = 2214) 0.55 MG/DL eGFR AMER. (test cod e = 63629) 111 ML/MIN/1.73 eGFR NON- AMER. (test code = 23119) 96 ML/MIN/1.73 CALC BUN/CREAT (test code = [...] (test code = 2219) 25 U/L Toney RennerLIPID [id number] 00:00:00* Test Item Value Reference Range Interpretation Comme nts CHOLESTEROL (test code = 2210) 146 MG/DL TRIGLYCERIDES (test code = 2232) 60 MG/DL HDL CHOLESTEROL (test code = 2220) 47 MG/DL CALC LDL CHOL (test code = 2237) 85 MG/DL RISK RATIO LDL/HDL (test cod e = 2238) 1.81 RATIO Toney Cowan AustinHEMOGLOBIN [id number] 00:00:00* Test Item Value Reference Range Interpretation Comme nts HEMOGLOBIN A1c (test code = 91225) 7.9 % Toney RennerCOMPREHENSIVE METABOLIC [id number] 00:00:00* Test Item Value Reference Range Interpretation Comme nts GLUCOSE (test code = 2217) 136 MG/DL BUN (test code = 2208) 16 MG/DL CREATININE (test code = 2214) 0.55 MG/DL eGFR AMER. (test cod e = 41351) 111 ML/MIN/1.73 eGFR NON- AMER. (test code = 37608) 96 ML/MIN/1.73 CALC BUN/CREAT (test code = [...] (test code = 2219) 25 U/L Toney Cowan AustinLIPID [id number] 00:00:00* Test Item Value Reference Range Interpretation Comme nts CHOLESTEROL (test code = 2210) 146 MG/DL TRIGLYCERIDES (test code = 2232) 60 MG/DL HDL CHOLESTEROL (test code = 2220) 47 MG/DL CALC LDL CHOL (test code = 2237) 85 MG/DL RISK RATIO LDL/HDL (test cod e = 2238) 1.81 RATIO Toney RennerHEMOGLOBIN [id number] 00:00:00* Test Item Value Reference Range Interpretation Comme nts HEMOGLOBIN A1c (test code = 36283) 7.9 % Toney F AustinCOMPREHENSIVE METABOLIC [id number] 00:00:00* Test Item Value Reference Range Interpretation Comme nts GLUCOSE (test code = 2217) 136 MG/DL BUN (test code = 2208) 16 MG/DL CREATININE (test code = 2214) 0.55 MG/DL eGFR AMER. (test cod e = 27608) 111 ML/MIN/1.73 eGFR NON- AMER. (test code = 76301) 96 ML/MIN/1.73 CALC BUN/CREAT (test code = [...] (test code = 2219) 25 U/L LIPID [id number] 00:00:00* Test Item Value Reference Range Interpretation Comme nts CHOLESTEROL (test code = 2210) 146 MG/DL TRIGLYCERIDES (test code = 2232) 60 MG/DL HDL CHOLESTEROL (test code = 2220) 47 MG/DL CALC LDL CHOL (test code = 2237) 85 MG/DL RISK RATIO LDL/HDL (test cod e = 2238) 1.81 RATIO HEMOGLOBIN [id number] 00:00:00* Test Item Value Reference Range Interpretation Comme nts HEMOGLOBIN A1c (test code = 26465) 7.9 % COMPREHENSIVE METABOLIC [id number] 00:00:00* Test Item Value Reference Range Interpretation Comme nts GLUCOSE (test code = 2217) 136 MG/DL BUN (test code = 2208) 16 MG/DL CREATININE (test code = 2214) 0.55 MG/DL eGFR AMER. (test cod e = 22562) 111 ML/MIN/1.73 eGFR NON- AMER. (test code = 30856) 96 ML/MIN/1.73 CALC BUN/CREAT (test code = [...] (test code = 2219) 25 U/L LIPID [id number] 00:00:00* Test Item Value Reference Range Interpretation Comme nts CHOLESTEROL (test code = 2210) 146 MG/DL TRIGLYCERIDES (test code = 2232) 60 MG/DL HDL CHOLESTEROL (test code = 2220) 47 MG/DL CALC LDL CHOL (test code = 2237) 85 MG/DL RISK RATIO LDL/HDL (test cod e = 2238) 1.81 RATIO HEMOGLOBIN [id number] 00:00:00* Test Item Value Reference Range Interpretation Comme nts HEMOGLOBIN A1c (test code = 63476) 7.9 % COMPREHENSIVE METABOLIC [id number] 00:00:00* Test Item Value Reference Range Interpretation Comme nts GLUCOSE (test code = 2217) 136 MG/DL BUN (test code = 2208) 16 MG/DL CREATININE (test code = 2214) 0.55 MG/DL eGFR AMER. (test cod e = 63780) 111 ML/MIN/1.73 eGFR NON- AMER. (test code = 94903) 96 ML/MIN/1.73 CALC BUN/CREAT (test code = [...] (test code = 2219) 25 U/L LIPID [id number] 00:00:00* Test Item Value Reference Range Interpretation Comme nts CHOLESTEROL (test code = 2210) 146 MG/DL TRIGLYCERIDES (test code = 2232) 60 MG/DL HDL CHOLESTEROL (test code = 2220) 47 MG/DL CALC LDL CHOL (test code = 2237) 85 MG/DL RISK RATIO LDL/HDL (test cod e = 2238) 1.81 RATIO HEMOGLOBIN [id number] 00:00:00* Test Item Value Reference Range Interpretation Comme nts HEMOGLOBIN A1c (test code = 83576) 7.9 % COMPREHENSIVE METABOLIC [id number] 00:00:00* Test Item Value Reference Range Interpretation Comme nts GLUCOSE (test code = 2217) 136 MG/DL BUN (test code = 8) 16 MG/DL CREATININE (test code = 2214) 0.55 MG/DL eGFR AMER. (test cod e = 82210) 111 ML/MIN/1.73 eGFR NON- AMER. (test code = 70963) 96 ML/MIN/1.73 CALC BUN/CREAT (test code = 2235) 29 RATIO SODIUM (test code = 2231) 143 MEQ/L POTASSIUM (test code = 2228) 4.3 MEQ/L CHLORIDE (test code = 2215) 104 MEQ/L CARBON DIOXIDE (test code = 6) 25 MEQ/L CALCIUM (test code = 2209) [...] code = 2219) 25 U/L COMPREHENSIVE METABOLIC [id number] 00:00:00* Test Item Value Reference Range Interpretation Comme nts GLUCOSE (test code = 2217) 136 MG/DL BUN (test code = 2208) 16 MG/DL CREATININE (test code = 2214) 0.55 MG/DL eGFR AMER. (test cod e = 62684) 111 ML/MIN/1.73 eGFR NON- AMER. (test code = 40977) 96 ML/MIN/1.73 CALC BUN/CREAT (test code = [...] (test code = 2219) 25 U/L LIPID [id number] 00:00:00* Test Item Value Reference Range Interpretation Comme nts CHOLESTEROL (test code = 2210) 146 MG/DL TRIGLYCERIDES (test code = 2232) 60 MG/DL HDL CHOLESTEROL (test code = 2220) 47 MG/DL CALC LDL CHOL (test code = 2237) 85 MG/DL RISK RATIO LDL/HDL (test cod e = 2238) 1.81 RATIO HEMOGLOBIN [id number] 00:00:00* Test Item Value Reference Range Interpretation Comme nts HEMOGLOBIN A1c (test code = 04004) 7.9 % LIPID [id number] 00:00:00* Test Item Value Reference Range Interpretation Comme nts CHOLESTEROL (test code = 2210) 146 MG/DL TRIGLYCERIDES (test code = 2232) 60 MG/DL HDL CHOLESTEROL (test code = 2220) 47 MG/DL CALC LDL CHOL (test code = 2237) 85 MG/DL RISK RATIO LDL/HDL (test cod e = 2238) 1.81 RATIO HEMOGLOBIN [id number] 00:00:00* Test Item Value Reference Range Interpretation Comme nts HEMOGLOBIN A1c (test code = 72073) 7.9 % COMPREHENSIVE METABOLIC [id number] 00:00:00* Test Item Value Reference Range Interpretation Comme nts GLUCOSE (test code = 2217) 136 MG/DL BUN (test code = 2208) 16 MG/DL CREATININE (test code = 2214) 0.55 MG/DL eGFR AMER. (test cod e = 32645) 111 ML/MIN/1.73 eGFR NON- AMER. (test code = 39309) 96 ML/MIN/1.73 CALC BUN/CREAT (test code = [...] (test code = 2219) 25 U/L LIPID [id number] 00:00:00* Test Item Value Reference Range Interpretation Comme nts CHOLESTEROL (test code = 2210) 146 MG/DL TRIGLYCERIDES (test code = 2232) 60 MG/DL HDL CHOLESTEROL (test code = 2220) 47 MG/DL CALC LDL CHOL (test code = 2237) 85 MG/DL RISK RATIO LDL/HDL (test cod e = 2238) 1.81 RATIO HEMOGLOBIN [id number] 00:00:00* Test Item Value Reference Range Interpretation Comme nts HEMOGLOBIN A1c (test code = 18627) 7.9 % COMPREHENSIVE METABOLIC [id number] 00:00:00* Test Item Value Reference Range Interpretation Comme nts GLUCOSE (test code = 2217) 136 MG/DL BUN (test code = 2208) 16 MG/DL CREATININE (test code = 2214) 0.55 MG/DL eGFR AMER. (test cod e = 69419) 111 ML/MIN/1.73 eGFR NON- AMER. (test code = 73868) 96 ML/MIN/1.73 CALC BUN/CREAT (test code = [...] (test code = 2219) 25 U/L LIPID [id number] 00:00:00* Test Item Value Reference Range Interpretation Comme nts CHOLESTEROL (test code = 2210) 146 MG/DL TRIGLYCERIDES (test code = 2232) 60 MG/DL HDL CHOLESTEROL (test code = 2220) 47 MG/DL CALC LDL CHOL (test code = 2237) 85 MG/DL RISK RATIO LDL/HDL (test cod e = 2238) 1.81 RATIO HEMOGLOBIN [id number] 00:00:00* Test Item Value Reference Range Interpretation Comme nts HEMOGLOBIN A1c (test code = 31885) 7.9 % COMPREHENSIVE METABOLIC [id number] 00:00:00* Test Item Value Reference Range Interpretation Comme nts GLUCOSE (test code = 2217) 136 MG/DL BUN (test code = 2208) 16 MG/DL CREATININE (test code = 2214) 0.55 MG/DL eGFR AMER. (test cod e = 11884) 111 ML/MIN/1.73 eGFR NON- AMER. (test code = 67298) 96 ML/MIN/1.73 CALC BUN/CREAT (test code = [...] (test code = 2219) 25 U/L LIPID [id number] 00:00:00* Test Item Value Reference Range Interpretation Comme nts CHOLESTEROL (test code = 2210) 146 MG/DL TRIGLYCERIDES (test code = 2232) 60 MG/DL HDL CHOLESTEROL (test code = 2220) 47 MG/DL CALC LDL CHOL (test code = 2237) 85 MG/DL RISK RATIO LDL/HDL (test cod e = 2238) 1.81 RATIO HEMOGLOBIN [id number] 00:00:00* Test Item Value Reference Range Interpretation Comme nts HEMOGLOBIN A1c (test code = 30120) 7.9 % COMPREHENSIVE METABOLIC [id number] 00:00:00* Test Item Value Reference Range Interpretation Comme nts GLUCOSE (test code = 2217) 136 MG/DL BUN (test code = 2208) 16 MG/DL CREATININE (test code = 2214) 0.55 MG/DL eGFR AMER. (test cod e = 30470) 111 ML/MIN/1.73 eGFR NON- AMER. (test code = 60080) 96 ML/MIN/1.73 CALC BUN/CREAT (test code = [...] (test code = 2219) 25 U/L LIPID [id number] 00:00:00* Test Item Value Reference Range Interpretation Comme nts CHOLESTEROL (test code = 2210) 146 MG/DL TRIGLYCERIDES (test code = 2232) 60 MG/DL HDL CHOLESTEROL (test code = 2220) 47 MG/DL CALC LDL CHOL (test code = 2237) 85 MG/DL RISK RATIO LDL/HDL (test cod e = 2238) 1.81 RATIO HEMOGLOBIN [id number] 00:00:00* Test Item Value Reference Range Interpretation Comme nts HEMOGLOBIN A1c (test code = 64826) 7.9 % COMPREHENSIVE METABOLIC [id number] 00:00:00* Test Item Value Reference Range Interpretation Comme nts GLUCOSE (test code = 2217) 136 MG/DL BUN (test code = 2208) 16 MG/DL CREATININE (test code = 2214) 0.55 MG/DL eGFR AMER. (test cod e = 67837) 111 ML/MIN/1.73 eGFR NON- AMER. (test code = 37214) 96 ML/MIN/1.73 CALC BUN/CREAT (test code = [...] (test code = 2219) 25 U/L Toney RennerLIPID [id number] 00:00:00* Test Item Value Reference Range Interpretation Comme nts CHOLESTEROL (test code = 2210) 146 MG/DL TRIGLYCERIDES (test code = 2232) 60 MG/DL HDL CHOLESTEROL (test code = 2220) 47 MG/DL CALC LDL CHOL (test code = 2237) 85 MG/DL RISK RATIO LDL/HDL (test cod e = 223) 1.81 RATIO Toney RennerHEMOGLOBIN [id number] 00:00:00* Test Item Value Reference Range Interpretation Comme nts HEMOGLOBIN A1c (test code = 37047) 7.9 % Toney RennerCOMPREHENSIVE METABOLIC [id number] 00:00:00* Test Item Value Reference Range Interpretation Comme nts GLUCOSE (test code = 2217) 136 MG/DL BUN (test code = 2208) 16 MG/DL CREATININE (test code = 2214) 0.55 MG/DL eGFR AMER. (test cod e = 14001) 111 ML/MIN/1.73 eGFR NON- AMER. (test code = 06513) 96 ML/MIN/1.73 CALC BUN/CREAT (test code = [...] (test code = 2219) 25 U/L Toney RennerLIPID [id number] 00:00:00* Test Item Value Reference Range Interpretation Comme nts CHOLESTEROL (test code = 2210) 146 MG/DL TRIGLYCERIDES (test code = 2232) 60 MG/DL HDL CHOLESTEROL (test code = 2220) 47 MG/DL CALC LDL CHOL (test code = 2237) 85 MG/DL RISK RATIO LDL/HDL (test cod e = 223) 1.81 RATIO Toney RennerHEMOGLOBIN [id number] 00:00:00* Test Item Value Reference Range Interpretation Comme nts HEMOGLOBIN A1c (test code = 19567) 7.9 % Toney RennerCOMPREHENSIVE METABOLIC [id number] 00:00:00* Test Item Value Reference Range Interpretation Comme nts GLUCOSE (test code = 2217) 136 MG/DL BUN (test code = 2208) 16 MG/DL CREATININE (test code = 2214) 0.55 MG/DL eGFR AMER. (test cod e = 80583) 111 ML/MIN/1.73 eGFR NON- AMER. (test code = 41528) 96 ML/MIN/1.73 CALC BUN/CREAT (test code = [...] (test code = 2219) 25 U/L Toney RennerLIPID [id number] 00:00:00* Test Item Value Reference Range Interpretation Comme nts CHOLESTEROL (test code = 2210) 146 MG/DL TRIGLYCERIDES (test code = 2232) 60 MG/DL HDL CHOLESTEROL (test code = 2220) 47 MG/DL CALC LDL CHOL (test code = 2237) 85 MG/DL RISK RATIO LDL/HDL (test cod e = 2238) 1.81 RATIO Toney RennerHEMOGLOBIN [id number] 00:00:00* Test Item Value Reference Range Interpretation Comme nts HEMOGLOBIN A1c (test code = 32416) 7.9 % Toney RennerCOMPREHENSIVE METABOLIC [id number] 00:00:00* Test Item Value Reference Range Interpretation Comme nts GLUCOSE (test code = 2217) 136 MG/DL BUN (test code = 2208) 16 MG/DL CREATININE (test code = 2214) 0.55 MG/DL eGFR AMER. (test cod e = 52836) 111 ML/MIN/1.73 eGFR NON- AMER. (test code = 71645) 96 ML/MIN/1.73 CALC BUN/CREAT (test code = [...] (test code = 2219) 25 U/L Toney RennerLIPID [id number] 00:00:00* Test Item Value Reference Range Interpretation Comme nts CHOLESTEROL (test code = 2210) 146 MG/DL TRIGLYCERIDES (test code = 2232) 60 MG/DL HDL CHOLESTEROL (test code = 2220) 47 MG/DL CALC LDL CHOL (test code = 2237) 85 MG/DL RISK RATIO LDL/HDL (test cod e = 2238) 1.81 RATIO Toney RennerHEMOGLOBIN [id number] 00:00:00* Test Item Value Reference Range Interpretation Comme nts HEMOGLOBIN A1c (test code = 94372) 7.9 % Toney RennerCOMPREHENSIVE METABOLIC [id number] 00:00:00* Test Item Value Reference Range Interpretation Comme nts GLUCOSE (test code = 2217) 123 MG/DL BUN (test code = 2208) 17 MG/DL CREATININE (test code = 2214) 0.59 MG/DL eGFR AMER. (test cod e = 50101) 108 ML/MIN/1.73 eGFR NON- AMER. (test code = 85233) 94 ML/MIN/1.73 CALC BUN/CREAT (test code = [...] (test code = 2219) 17 U/L Toney Cowan AustinLIPID [id number] 00:00:00* Test Item Value Reference Range Interpretation Comme nts CHOLESTEROL (test code = 2210) 236 MG/DL TRIGLYCERIDES (test code = 2232) 219 MG/DL HDL CHOLESTEROL (test code = 2220) 52 MG/DL CALC LDL CHOL (test code = 2237) 148 MG/DL RISK RATIO LDL/HDL (test cod e = 2238) 2.85 RATIO Toney F AustinHEMOGLOBIN [id number] 00:00:00* Test Item Value Reference Range Interpretation Comme nts HEMOGLOBIN A1c (test code = 65298) 7.8 % Toney RennerCOMPREHENSIVE METABOLIC [id number] 00:00:00* Test Item Value Reference Range Interpretation Comme nts GLUCOSE (test code = 2217) 123 MG/DL BUN (test code = 2208) 17 MG/DL CREATININE (test code = 2214) 0.59 MG/DL eGFR AMER. (test cod e = 99829) 108 ML/MIN/1.73 eGFR NON- AMER. (test code = 88224) 94 ML/MIN/1.73 CALC BUN/CREAT (test code = [...] code = 2219) 17 U/L Toney RennerLIPID [id number] 00:00:00* Test Item Value Reference Range Interpretation Comme nts CHOLESTEROL (test code = 2210) 236 MG/DL TRIGLYCERIDES (test code = 2232) 219 MG/DL HDL CHOLESTEROL (test code = 2220) 52 MG/DL CALC LDL CHOL (test code = 2237) 148 MG/DL RISK RATIO LDL/HDL (test cod e = 2238) 2.85 RATIO Toney RennerHEMOGLOBIN [id number] 00:00:00* Test Item Value Reference Range Interpretation Comme nts HEMOGLOBIN A1c (test code = 24329) 7.8 % Toney RennerHEMOGLOBIN [id number] 00:00:00* Test Item Value Reference Range Interpretation Comme nts HEMOGLOBIN A1c (test code = 15135) 7.8 % COMPREHENSIVE METABOLIC [id number] 00:00:00* Test Item Value Reference Range Interpretation Comme nts GLUCOSE (test code = 2217) 123 MG/DL BUN (test code = 2208) 17 MG/DL CREATININE (test code = 2214) 0.59 MG/DL eGFR AMER. (test cod e = 80810) 108 ML/MIN/1.73 eGFR NON- AMER. (test code = 37345) 94 ML/MIN/1.73 CALC BUN/CREAT (test code = [...] (test code = 2219) 17 U/L LIPID [id number] 00:00:00* Test Item Value Reference Range Interpretation Comme nts CHOLESTEROL (test code = 2210) 236 MG/DL TRIGLYCERIDES (test code = 2232) 219 MG/DL HDL CHOLESTEROL (test code = 2220) 52 MG/DL CALC LDL CHOL (test code = 2237) 148 MG/DL RISK RATIO LDL/HDL (test cod e = 2238) 2.85 RATIO HEMOGLOBIN [id number] 00:00:00* Test Item Value Reference Range Interpretation Comme nts HEMOGLOBIN A1c (test code = 68941) 7.8 % COMPREHENSIVE METABOLIC [id number] 00:00:00* Test Item Value Reference Range Interpretation Comme nts GLUCOSE (test code = 2217) 123 MG/DL BUN (test code = 2208) 17 MG/DL CREATININE (test code = 2214) 0.59 MG/DL eGFR AMER. (test cod e = 37357) 108 ML/MIN/1.73 eGFR NON- AMER. (test code = 88721) 94 ML/MIN/1.73 CALC BUN/CREAT (test code = [...] (test code = 2219) 17 U/L LIPID [id number] 00:00:00* Test Item Value Reference Range Interpretation Comme nts CHOLESTEROL (test code = 2210) 236 MG/DL TRIGLYCERIDES (test code = 2232) 219 MG/DL HDL CHOLESTEROL (test code = 2220) 52 MG/DL CALC LDL CHOL (test code = 2237) 148 MG/DL RISK RATIO LDL/HDL (test cod e = 2238) 2.85 RATIO HEMOGLOBIN [id number] 00:00:00* Test Item Value Reference Range Interpretation Comme nts HEMOGLOBIN A1c (test code = 69756) 7.8 % COMPREHENSIVE METABOLIC [id number] 00:00:00* Test Item Value Reference Range Interpretation Comme nts GLUCOSE (test code = 2217) 123 MG/DL BUN (test code = 2208) 17 MG/DL CREATININE (test code = 2214) 0.59 MG/DL eGFR AMER. (test cod e = 34011) 108 ML/MIN/1.73 eGFR NON- AMER. (test code = 51105) 94 ML/MIN/1.73 CALC BUN/CREAT (test code = [...] (test code = 2219) 17 U/L LIPID [id number] 00:00:00* Test Item Value Reference Range Interpretation Comme nts CHOLESTEROL (test code = 2210) 236 MG/DL TRIGLYCERIDES (test code = 2232) 219 MG/DL HDL CHOLESTEROL (test code = 2220) 52 MG/DL CALC LDL CHOL (test code = 2237) 148 MG/DL RISK RATIO LDL/HDL (test cod e = 2238) 2.85 RATIO HEMOGLOBIN [id number] 00:00:00* Test Item Value Reference Range Interpretation Comme nts HEMOGLOBIN A1c (test code = 87984) 7.8 % HEMOGLOBIN [id number] 00:00:00* Test Item Value Reference Range Interpretation Comme nts HEMOGLOBIN A1c (test code = 26539) 7.8 % COMPREHENSIVE METABOLIC [id number] 00:00:00* Test Item Value Reference Range Interpretation Comme nts GLUCOSE (test code = 2217) 123 MG/DL BUN (test code = 2208) 17 MG/DL CREATININE (test code = 2214) 0.59 MG/DL eGFR AMER. (test cod e = 68709) 108 ML/MIN/1.73 eGFR NON- AMER. (test code = 21780) 94 ML/MIN/1.73 CALC BUN/CREAT (test code = [...] (test code = 2219) 17 U/L LIPID [id number] 00:00:00* Test Item Value Reference Range Interpretation Comme nts CHOLESTEROL (test code = 2210) 236 MG/DL TRIGLYCERIDES (test code = 2232) 219 MG/DL HDL CHOLESTEROL (test code = 2220) 52 MG/DL CALC LDL CHOL (test code = 2237) 148 MG/DL RISK RATIO LDL/HDL (test cod e = 2238) 2.85 RATIO COMPREHENSIVE METABOLIC [id number] 00:00:00* Test Item Value Reference Range Interpretation Comme nts GLUCOSE (test code = 2217) 123 MG/DL BUN (test code = 2208) 17 MG/DL CREATININE (test code = 2214) 0.59 MG/DL eGFR AMER. (test cod e = 76887) 108 ML/MIN/1.73 eGFR NON- AMER. (test code = 84760) 94 ML/MIN/1.73 CALC BUN/CREAT (test code = [...] (test code = 2219) 17 U/L HEMOGLOBIN [id number] 00:00:00* Test Item Value Reference Range Interpretation Comme nts HEMOGLOBIN A1c (test code = 70610) 7.8 % LIPID [id number] 00:00:00* Test Item Value Reference Range Interpretation Comme nts CHOLESTEROL (test code = 2210) 236 MG/DL TRIGLYCERIDES (test code = 2232) 219 MG/DL HDL CHOLESTEROL (test code = 2220) 52 MG/DL CALC LDL CHOL (test code = 2237) 148 MG/DL RISK RATIO LDL/HDL (test cod e = 2238) 2.85 RATIO COMPREHENSIVE METABOLIC [id number] 00:00:00* Test Item Value Reference Range Interpretation Comme nts GLUCOSE (test code = 2217) 123 MG/DL BUN (test code = 2208) 17 MG/DL CREATININE (test code = 2214) 0.59 MG/DL eGFR AMER. (test cod e = 33301) 108 ML/MIN/1.73 eGFR NON- AMER. (test code = 21795) 94 ML/MIN/1.73 CALC BUN/CREAT (test code = [...] (test code = 2219) 17 U/L LIPID [id number] 00:00:00* Test Item Value Reference Range Interpretation Comme nts CHOLESTEROL (test code = 2210) 236 MG/DL TRIGLYCERIDES (test code = 2232) 219 MG/DL HDL CHOLESTEROL (test code = 2220) 52 MG/DL CALC LDL CHOL (test code = 2237) 148 MG/DL RISK RATIO LDL/HDL (test cod e = 2238) 2.85 RATIO HEMOGLOBIN [id number] 00:00:00* Test Item Value Reference Range Interpretation Comme nts HEMOGLOBIN A1c (test code = 24776) 7.8 % COMPREHENSIVE METABOLIC [id number] 00:00:00* Test Item Value Reference Range Interpretation Comme nts GLUCOSE (test code = 2217) 123 MG/DL BUN (test code = 2208) 17 MG/DL CREATININE (test code = 2214) 0.59 MG/DL eGFR AMER. (test cod e = 51678) 108 ML/MIN/1.73 eGFR NON- AMER. (test code = 50875) 94 ML/MIN/1.73 CALC BUN/CREAT (test code = [...] (test code = 2219) 17 U/L LIPID [id number] 00:00:00* Test Item Value Reference Range Interpretation Comme nts CHOLESTEROL (test code = 2210) 236 MG/DL TRIGLYCERIDES (test code = 2232) 219 MG/DL HDL CHOLESTEROL (test code = 2220) 52 MG/DL CALC LDL CHOL (test code = 2237) 148 MG/DL RISK RATIO LDL/HDL (test cod e = 2238) 2.85 RATIO HEMOGLOBIN [id number] 00:00:00* Test Item Value Reference Range Interpretation Comme nts HEMOGLOBIN A1c (test code = 53984) 7.8 % COMPREHENSIVE METABOLIC [id number] 00:00:00* Test Item Value Reference Range Interpretation Comme nts GLUCOSE (test code = 2217) 123 MG/DL BUN (test code = 2208) 17 MG/DL CREATININE (test code = 2214) 0.59 MG/DL eGFR AMER. (test cod e = 74158) 108 ML/MIN/1.73 eGFR NON- AMER. (test code = 78181) 94 ML/MIN/1.73 CALC BUN/CREAT (test code = [...] (test code = 2219) 17 U/L LIPID [id number] 00:00:00* Test Item Value Reference Range Interpretation Comme nts CHOLESTEROL (test code = 2210) 236 MG/DL TRIGLYCERIDES (test code = 2232) 219 MG/DL HDL CHOLESTEROL (test code = 2220) 52 MG/DL CALC LDL CHOL (test code = 2237) 148 MG/DL RISK RATIO LDL/HDL (test cod e = 2238) 2.85 RATIO HEMOGLOBIN [id number] 00:00:00* Test Item Value Reference Range Interpretation Comme nts HEMOGLOBIN A1c (test code = 27060) 7.8 % COMPREHENSIVE METABOLIC [id number] 00:00:00* Test Item Value Reference Range Interpretation Comme nts GLUCOSE (test code = 2217) 123 MG/DL BUN (test code = 2208) 17 MG/DL CREATININE (test code = 2214) 0.59 MG/DL eGFR AMER. (test cod e = 19871) 108 ML/MIN/1.73 eGFR NON- AMER. (test code = 49091) 94 ML/MIN/1.73 CALC BUN/CREAT (test code = [...] (test code = 2219) 17 U/L LIPID [id number] 00:00:00* Test Item Value Reference Range Interpretation Comme nts CHOLESTEROL (test code = 2210) 236 MG/DL TRIGLYCERIDES (test code = 2232) 219 MG/DL HDL CHOLESTEROL (test code = 2220) 52 MG/DL CALC LDL CHOL (test code = 2237) 148 MG/DL RISK RATIO LDL/HDL (test cod e = 2238) 2.85 RATIO COMPREHENSIVE METABOLIC [id number] 00:00:00* Test Item Value Reference Range Interpretation Comme nts GLUCOSE (test code = 2217) 123 MG/DL BUN (test code = 2208) 17 MG/DL CREATININE (test code = 2214) 0.59 MG/DL eGFR AMER. (test cod e = 31047) 108 ML/MIN/1.73 eGFR NON- AMER. (test code = 74098) 94 ML/MIN/1.73 CALC BUN/CREAT (test code = [...] (test code = 2219) 17 U/L Toney Cowan [place] [id number] 00:00:00* Test Item Value Reference Range Interpretation Comme nts CHOLESTEROL (test code = 2210) 236 MG/DL TRIGLYCERIDES (test code = 2232) 219 MG/DL HDL CHOLESTEROL (test code = 2220) 52 MG/DL CALC LDL CHOL (test code = 2237) 148 MG/DL RISK RATIO LDL/HDL (test cod e = 223) 2.85 RATIO Toney RennerHEMOGLOBIN [id number] 00:00:00* Test Item Value Reference Range Interpretation Comme [facility] HEMOGLOBIN A1c (test code = 06208) 7.8 % Toney RennerCOMPREHENSIVE METABOLIC [id number] 00:00:00* Test Item Value Reference Range Interpretation Comme nts GLUCOSE (test code = 7) 123 MG/DL BUN (test code = 2207) 17 MG/DL CREATININE (test code = 2214) 0.59 MG/DL eGFR AMER. (test cod e = 41012) 108 ML/MIN/1.73 eGFR NON- AMER. (test code = 95986) 94 ML/MIN/1.73 CALC BUN/CREAT (test code = [...] code = 2219) 17 U/L Toney RennerLIPID [id number] 00:00:00* Test Item Value Reference Range Interpretation Comme nts CHOLESTEROL (test code = 2210) 236 MG/DL TRIGLYCERIDES (test code = 2232) 219 MG/DL HDL CHOLESTEROL (test code = 2220) 52 MG/DL CALC LDL CHOL (test code = 2237) 148 MG/DL RISK RATIO LDL/HDL (test cod e = 2238) 2.85 RATIO Toney RennerHEMOGLOBIN [id number] 00:00:00* Test Item Value Reference Range Interpretation Comme nts HEMOGLOBIN A1c (test code = 67723) 7.8 % Toney RennerCOMPREHENSIVE METABOLIC [id number] 00:00:00* Test Item Value Reference Range Interpretation Comme nts GLUCOSE (test code = 2217) 123 MG/DL BUN (test code = 2208) 17 MG/DL CREATININE (test code = 2214) 0.59 MG/DL eGFR AMER. (test cod e = 02879) 108 ML/MIN/1.73 eGFR NON- AMER. (test code = 05741) 94 ML/MIN/1.73 CALC BUN/CREAT (test code = [...] (test code = 2219) 17 U/L Toney F AustinLIPID [id number] 00:00:00* Test Item Value Reference Range Interpretation Comme nts CHOLESTEROL (test code = 2210) 236 MG/DL TRIGLYCERIDES (test code = 2232) 219 MG/DL HDL CHOLESTEROL (test code = 2220) 52 MG/DL CALC LDL CHOL (test code = 2237) 148 MG/DL RISK RATIO LDL/HDL (test cod e = 2238) 2.85 RATIO Toney RennerHEMOGLOBIN [id number] 00:00:00* Test Item Value Reference Range Interpretation Comme nts HEMOGLOBIN A1c (test code = 10831) 7.8 % Toney RennerCOMPREHENSIVE METABOLIC [id number] 00:00:00* Test Item Value Reference Range Interpretation Comme nts GLUCOSE (test code = 2217) 123 MG/DL BUN (test code = 2208) 17 MG/DL CREATININE (test code = 2214) 0.59 MG/DL eGFR AMER. (test cod e = 91991) 108 ML/MIN/1.73 eGFR NON- AMER. (test code = 00941) 94 ML/MIN/1.73 CALC BUN/CREAT (test code = [...] code = 2219) 17 U/L Toney RennerLIPID [id number] 00:00:00* Test Item Value Reference Range Interpretation Comme nts CHOLESTEROL (test code = 2210) 236 MG/DL TRIGLYCERIDES (test code = 2232) 219 MG/DL HDL CHOLESTEROL (test code = 2220) 52 MG/DL CALC LDL CHOL (test code = 2237) 148 MG/DL RISK RATIO LDL/HDL (test cod e = 2238) 2.85 RATIO Toney RennerHEMOGLOBIN [id number] 00:00:00* Test Item Value Reference Range Interpretation Comme nts HEMOGLOBIN A1c (test code = 56721) 7.8 % Toney RennerCOMPREHENSIVE METABOLIC [id number] 00:00:00* Test Item Value Reference Range Interpretation Comme nts GLUCOSE (test code = 2217) 99 MG/DL BUN (test code = 2208) 13 MG/DL CREATININE (test code = 2214) 0.52 MG/DL eGFR AMER. (test cod e = 75288) 113 ML/MIN/1.73 eGFR NON- AMER. (test code = 24725) 97 ML/MIN/1.73 CALC BUN/CREAT (test code = [...] (test code = 2219) 17 U/L Toney Cowan AustinLIPID [id number] 00:00:00* Test Item Value Reference Range Interpretation Comme nts CHOLESTEROL (test code = 2210) 215 MG/DL TRIGLYCERIDES (test code = 2232) 179 MG/DL HDL CHOLESTEROL (test code = 2220) 50 MG/DL CALC LDL CHOL (test code = 2237) 134 MG/DL RISK RATIO LDL/HDL (test cod e = 2238) 2.68 RATIO Toney RennerHEMOGLOBIN [id number] 00:00:00* Test Item Value Reference Range Interpretation Comme nts HEMOGLOBIN A1c (test code = 26495) 7.5 % Toney Cowan AustinCOMPREHENSIVE METABOLIC [id number] 00:00:00* Test Item Value Reference Range Interpretation Comme nts GLUCOSE (test code = 2217) 99 MG/DL BUN (test code = 2208) 13 MG/DL CREATININE (test code = 2214) 0.52 MG/DL eGFR AMER. (test cod e = 03533) 113 ML/MIN/1.73 eGFR NON- AMER. (test code = 20323) 97 ML/MIN/1.73 CALC BUN/CREAT (test code = [...] (test code = 2219) 17 U/L Toney Cowan AustinLIPID [id number] 00:00:00* Test Item Value Reference Range Interpretation Comme nts CHOLESTEROL (test code = 2210) 215 MG/DL TRIGLYCERIDES (test code = 2232) 179 MG/DL HDL CHOLESTEROL (test code = 2220) 50 MG/DL CALC LDL CHOL (test code = 2237) 134 MG/DL RISK RATIO LDL/HDL (test cod e = 2238) 2.68 RATIO Toney RennerHEMOGLOBIN [id number] 00:00:00* Test Item Value Reference Range Interpretation Comme nts HEMOGLOBIN A1c (test code = 35281) 7.5 % Toney Cowan AustinCOMPREHENSIVE METABOLIC [id number] 00:00:00* Test Item Value Reference Range Interpretation Comme nts GLUCOSE (test code = 2217) 99 MG/DL BUN (test code = 2208) 13 MG/DL CREATININE (test code = 2214) 0.52 MG/DL eGFR AMER. (test cod e = 48658) 113 ML/MIN/1.73 eGFR NON- AMER. (test code = 34636) 97 ML/MIN/1.73 CALC BUN/CREAT (test code = 2235) 25 RATIO SODIUM (test code = 2231) 143 MEQ/L POTASSIUM (test code = 2228) 4.3 MEQ/L CHLORIDE (test code = 2215) 105 MEQ/L CARBON DIOXIDE (test code = 2206) 24 MEQ/L CALCIUM (test code = 2209) 10.1 MG/DL PROTEIN, TOTAL (test code = 222) [...] (test code = 2219) 17 U/L LIPID [id number] 00:00:00* Test Item Value Reference Range Interpretation Comme nts CHOLESTEROL (test code = 2210) 215 MG/DL TRIGLYCERIDES (test code = 2232) 179 MG/DL HDL CHOLESTEROL (test code = 2220) 50 MG/DL CALC LDL CHOL (test code = 2237) 134 MG/DL RISK RATIO LDL/HDL (test cod e = 2238) 2.68 RATIO HEMOGLOBIN [id number] 00:00:00* Test Item Value Reference Range Interpretation Comme nts HEMOGLOBIN A1c (test code = 92299) 7.5 % COMPREHENSIVE METABOLIC [id number] 00:00:00* Test Item Value Reference Range Interpretation Comme nts GLUCOSE (test code = 2217) 99 MG/DL BUN (test code = 2208) 13 MG/DL CREATININE (test code = 2214) 0.52 MG/DL eGFR AMER. (test cod e = 36878) 113 ML/MIN/1.73 eGFR NON- AMER. (test code = 74518) 97 ML/MIN/1.73 CALC BUN/CREAT (test code = [...] 2204) 78 U/L AST (test code = 221) 21 U/L ALT (test code = 2219) 17 U/L LIPID [id number] 00:00:00* Test Item Value Reference Range Interpretation Comme nts CHOLESTEROL (test code = 0) 215 MG/DL TRIGLYCERIDES (test code = 2232) 179 MG/DL HDL CHOLESTEROL (test code = 2220) 50 MG/DL CALC LDL CHOL (test code = 2237) 134 MG/DL RISK RATIO LDL/HDL (test cod e = 2238) 2.68 RATIO HEMOGLOBIN [id number] 00:00:00* Test Item Value Reference Range Interpretation Comme nts HEMOGLOBIN A1c (test code = 55321) 7.5 % COMPREHENSIVE METABOLIC [id number] 00:00:00* Test Item Value Reference Range Interpretation Comme nts GLUCOSE (test code = 7) 99 MG/DL BUN (test code = 2207) 13 MG/DL CREATININE (test code = 2214) 0.52 MG/DL eGFR AMER. (test cod e = 13264) 113 ML/MIN/1.73 eGFR NON- AMER. (test code = 92789) 97 ML/MIN/1.73 CALC BUN/CREAT (test code = [...] (test code = 2219) 17 U/L LIPID [id number] 00:00:00* Test Item Value Reference Range Interpretation Comme nts CHOLESTEROL (test code = 2210) 215 MG/DL TRIGLYCERIDES (test code = 2232) 179 MG/DL HDL CHOLESTEROL (test code = 2220) 50 MG/DL CALC LDL CHOL (test code = 2237) 134 MG/DL RISK RATIO LDL/HDL (test cod e = 223) 2.68 RATIO HEMOGLOBIN [id number] 00:00:00* Test Item Value Reference Range Interpretation Comme nts HEMOGLOBIN A1c (test code = 62416) 7.5 % COMPREHENSIVE METABOLIC [id number] 00:00:00* Test Item Value Reference Range Interpretation Comme nts GLUCOSE (test code = 2217) 99 MG/DL BUN (test code = 2208) 13 MG/DL CREATININE (test code = 2214) 0.52 MG/DL eGFR AMER. (test cod e = 00482) 113 ML/MIN/1.73 eGFR NON- AMER. (test code = 89311) 97 ML/MIN/1.73 CALC BUN/CREAT (test code = [...] code = 2219) 17 U/L COMPREHENSIVE METABOLIC [id number] 00:00:00* Test Item Value Reference Range Interpretation Comme nts GLUCOSE (test code = 2217) 99 MG/DL BUN (test code = 2208) 13 MG/DL CREATININE (test code = 2214) 0.52 MG/DL eGFR AMER. (test cod e = 19009) 113 ML/MIN/1.73 eGFR NON- AMER. (test code = 67680) 97 ML/MIN/1.73 CALC BUN/CREAT (test code = [...] (test code = 2219) 17 U/L LIPID [id number] 00:00:00* Test Item Value Reference Range Interpretation Comme nts CHOLESTEROL (test code = 2210) 215 MG/DL TRIGLYCERIDES (test code = 2232) 179 MG/DL HDL CHOLESTEROL (test code = 2220) 50 MG/DL CALC LDL CHOL (test code = 2237) 134 MG/DL RISK RATIO LDL/HDL (test cod e = 2238) 2.68 RATIO HEMOGLOBIN [id number] 00:00:00* Test Item Value Reference Range Interpretation Comme nts HEMOGLOBIN A1c (test code = 27498) 7.5 % LIPID [id number] 00:00:00* Test Item Value Reference Range Interpretation Comme nts CHOLESTEROL (test code = 2210) 215 MG/DL TRIGLYCERIDES (test code = 2232) 179 MG/DL HDL CHOLESTEROL (test code = 2220) 50 MG/DL CALC LDL CHOL (test code = 2237) 134 MG/DL RISK RATIO LDL/HDL (test cod e = 2238) 2.68 RATIO HEMOGLOBIN [id number] 00:00:00* Test Item Value Reference Range Interpretation Comme nts HEMOGLOBIN A1c (test code = 21076) 7.5 % COMPREHENSIVE METABOLIC [id number] 00:00:00* Test Item Value Reference Range Interpretation Comme nts GLUCOSE (test code = 2217) 99 MG/DL BUN (test code = 2208) 13 MG/DL CREATININE (test code = 2214) 0.52 MG/DL eGFR AMER. (test cod e = 80604) 113 ML/MIN/1.73 eGFR NON- AMER. (test code = 37557) 97 ML/MIN/1.73 CALC BUN/CREAT (test code = [...] (test code = 2219) 17 U/L LIPID [id number] 00:00:00* Test Item Value Reference Range Interpretation Comme nts CHOLESTEROL (test code = 2210) 215 MG/DL TRIGLYCERIDES (test code = 2232) 179 MG/DL HDL CHOLESTEROL (test code = 2220) 50 MG/DL CALC LDL CHOL (test code = 2237) 134 MG/DL RISK RATIO LDL/HDL (test cod e = 2238) 2.68 RATIO HEMOGLOBIN [id number] 00:00:00* Test Item Value Reference Range Interpretation Comme nts HEMOGLOBIN A1c (test code = 37423) 7.5 % COMPREHENSIVE METABOLIC [id number] 00:00:00* Test Item Value Reference Range Interpretation Comme nts GLUCOSE (test code = 2217) 99 MG/DL BUN (test code = 2208) 13 MG/DL CREATININE (test code = 2214) 0.52 MG/DL eGFR AMER. (test cod e = 84963) 113 ML/MIN/1.73 eGFR NON- AMER. (test code = 68147) 97 ML/MIN/1.73 CALC BUN/CREAT (test code = [...] (test code = 2219) 17 U/L LIPID [id number] 00:00:00* Test Item Value Reference Range Interpretation Comme nts CHOLESTEROL (test code = 2210) 215 MG/DL TRIGLYCERIDES (test code = 2232) 179 MG/DL HDL CHOLESTEROL (test code = 2220) 50 MG/DL CALC LDL CHOL (test code = 2237) 134 MG/DL RISK RATIO LDL/HDL (test cod e = 2238) 2.68 RATIO HEMOGLOBIN [id number] 00:00:00* Test Item Value Reference Range Interpretation Comme nts HEMOGLOBIN A1c (test code = 61484) 7.5 % COMPREHENSIVE METABOLIC [id number] 00:00:00* Test Item Value Reference Range Interpretation Comme nts GLUCOSE (test code = 2217) 99 MG/DL BUN (test code = 2208) 13 MG/DL CREATININE (test code = 2214) 0.52 MG/DL eGFR AMER. (test cod e = 61493) 113 ML/MIN/1.73 eGFR NON- AMER. (test code = 50069) 97 ML/MIN/1.73 CALC BUN/CREAT (test code = [...] (test code = 2219) 17 U/L LIPID [id number] 00:00:00* Test Item Value Reference Range Interpretation Comme nts CHOLESTEROL (test code = 2210) 215 MG/DL TRIGLYCERIDES (test code = 2232) 179 MG/DL HDL CHOLESTEROL (test code = 2220) 50 MG/DL CALC LDL CHOL (test code = 2237) 134 MG/DL RISK RATIO LDL/HDL (test cod e = 2238) 2.68 RATIO HEMOGLOBIN [id number] 00:00:00* Test Item Value Reference Range Interpretation Comme nts HEMOGLOBIN A1c (test code = 05117) 7.5 % COMPREHENSIVE METABOLIC [id number] 00:00:00* Test Item Value Reference Range Interpretation Comme nts GLUCOSE (test code = 2217) 99 MG/DL BUN (test code = 2208) 13 MG/DL CREATININE (test code = 2214) 0.52 MG/DL eGFR AMER. (test cod e = 19577) 113 ML/MIN/1.73 eGFR NON- AMER. (test code = 87995) 97 ML/MIN/1.73 CALC BUN/CREAT (test code = [...] 0.5 MG/DL ALKALINE PHOSPHATASE (test code = 220) 78 U/L AST (test code = 221) 21 U/L ALT (test code = 2219) 17 U/L LIPID [id number] 00:00:00* Test Item Value Reference Range Interpretation Comme nts CHOLESTEROL (test code = 2210) 215 MG/DL TRIGLYCERIDES (test code = 2232) 179 MG/DL HDL CHOLESTEROL (test code = 2219) 50 MG/DL CALC LDL CHOL (test code = 2236) 134 MG/DL RISK RATIO LDL/HDL (test cod e = 223) 2.68 RATIO HEMOGLOBIN [id number] 00:00:00* Test Item Value Reference Range Interpretation Comme nts HEMOGLOBIN A1c (test code = 13938) 7.5 % COMPREHENSIVE METABOLIC [id number] 00:00:00* Test Item Value Reference Range Interpretation Comme nts GLUCOSE (test code = 7) 99 MG/DL BUN (test code = 2207) 13 MG/DL CREATININE (test code = 2214) 0.52 MG/DL eGFR AMER. (test cod e = 41552) 113 ML/MIN/1.73 eGFR NON- AMER. (test code = 42564) 97 ML/MIN/1.73 CALC BUN/CREAT (test code = [...] code = 2219) 17 U/L Toney RennerLIPID [id number] 00:00:00* Test Item Value Reference Range Interpretation Comme nts CHOLESTEROL (test code = 2210) 215 MG/DL TRIGLYCERIDES (test code = 2232) 179 MG/DL HDL CHOLESTEROL (test code = 2220) 50 MG/DL CALC LDL CHOL (test code = 223) 134 MG/DL RISK RATIO LDL/HDL (test cod e = 2237) 2.68 RATIO Toney RennerHEMOGLOBIN [id number] 00:00:00* Test Item Value Reference Range Interpretation Comme nts HEMOGLOBIN A1c (test code = 79308) 7.5 % Toney RennerCOMPREHENSIVE METABOLIC [id number] 00:00:00* Test Item Value Reference Range Interpretation Comme nts GLUCOSE (test code = 2217) 99 MG/DL BUN (test code = 2207) 13 MG/DL CREATININE (test code = 2214) 0.52 MG/DL eGFR AMER. (test cod e = 70897) 113 ML/MIN/1.73 eGFR NON- AMER. (test code = 31412) 97 ML/MIN/1.73 CALC BUN/CREAT (test code = [...] code = 2219) 17 U/L Toney RennerLIPID [id number] 00:00:00* Test Item Value Reference Range Interpretation Comme nts CHOLESTEROL (test code = 2210) 215 MG/DL TRIGLYCERIDES (test code = 2232) 179 MG/DL HDL CHOLESTEROL (test code = 2220) 50 MG/DL CALC LDL CHOL (test code = 2237) 134 MG/DL RISK RATIO LDL/HDL (test cod e = 2238) 2.68 RATIO Toney RennerHEMOGLOBIN [id number] 00:00:00* Test Item Value Reference Range Interpretation Comme nts HEMOGLOBIN A1c (test code = 96211) 7.5 % Toney RennerCOMPREHENSIVE METABOLIC [id number] 00:00:00* Test Item Value Reference Range Interpretation Comme nts GLUCOSE (test code = 2217) 99 MG/DL BUN (test code = 2208) 13 MG/DL CREATININE (test code = 2214) 0.52 MG/DL eGFR AMER. (test cod e = 08550) 113 ML/MIN/1.73 eGFR NON- AMER. (test code = 54474) 97 ML/MIN/1.73 CALC BUN/CREAT (test code = [...] (test code = 2219) 17 U/L Toney Cowan AustinLIPID [id number] 00:00:00* Test Item Value Reference Range Interpretation Comme nts CHOLESTEROL (test code = 2210) 215 MG/DL TRIGLYCERIDES (test code = 2232) 179 MG/DL HDL CHOLESTEROL (test code = 2220) 50 MG/DL CALC LDL CHOL (test code = 2237) 134 MG/DL RISK RATIO LDL/HDL (test cod e = 2238) 2.68 RATIO Toney RennerHEMOGLOBIN [id number] 00:00:00* Test Item Value Reference Range Interpretation Comme nts HEMOGLOBIN A1c (test code = 96169) 7.5 % Toney RennerCOMPREHENSIVE METABOLIC [id number] 00:00:00* Test Item Value Reference Range Interpretation Comme nts GLUCOSE (test code = 2217) 99 MG/DL BUN (test code = 2208) 13 MG/DL CREATININE (test code = 2214) 0.52 MG/DL eGFR AMER. (test cod e = 41845) 113 ML/MIN/1.73 eGFR NON- AMER. (test code = 02944) 97 ML/MIN/1.73 CALC BUN/CREAT (test code = [...] code = 2219) 17 U/L Toney RennerLIPID [id number] 00:00:00* Test Item Value Reference Range Interpretation Comme nts CHOLESTEROL (test code = 2210) 215 MG/DL TRIGLYCERIDES (test code = 2232) 179 MG/DL HDL CHOLESTEROL (test code = 2220) 50 MG/DL CALC LDL CHOL (test code = 2237) 134 MG/DL RISK RATIO LDL/HDL (test cod e = 2238) 2.68 RATIO Toney RennerHEMOGLOBIN [id number] 00:00:00* Test Item Value Reference Range Interpretation Comme nts HEMOGLOBIN A1c (test code = 42255) 7.5 % Toney Cowan OvwnazGDNX-[id number]-4 (COVID-19) by RT-PCR (HIGH RISK)2020-06-30 00:00:00* Test Item Value Reference Range Interpretation Comme nts SARS-CoV-2 INTERPRETATION (test code = 76510) Negative SOURCE (test code = 04923) Nasal_Swab_in _VTM__ UTM Toney Cowan HqrbnrHZAR-ObJ-0 (COVID-19) by RT-PCR (HIGH RISK)2020-06-30 00:00:00* Test Item Value Reference Range Interpretation Comme nts SARS-CoV-2 INTERPRETATION (test code = 82310) Negative SOURCE (test code = 92949) Nasal_Swab_in _VTM__ UTM oTney Cowan JoborfOPKR-HgK-5 (COVID-19) by RT-PCR (HIGH RISK)2020-06-30 00:00:00* Test Item Value Reference Range Interpretation Comme nts SARS-CoV-2 INTERPRETATION (test code = 09371) Negative SOURCE (test code = 85635) Nasal_Swab_in _VTM__ UTM SARS-CoV-2 (COVID-19) by RT-PCR (HIGH RISK)2020-06-30 00:00:00* Test Item Value Reference Range Interpretation Comme nts SARS-CoV-2 INTERPRETATION (test code = 23606) Negative SOURCE (test code = 70409) Nasal_Swab_in _VTM__ UTM SARS-CoV-2 (COVID-19) by RT-PCR (HIGH RISK)2020-06-30 00:00:00* Test Item Value Reference Range Interpretation Comme nts SARS-CoV-2 INTERPRETATION (test code = 88843) Negative SOURCE (test code = 92913) Nasal_Swab_in _VTM__ UTM SARS-CoV-2 (COVID-19) by RT-PCR (HIGH RISK)2020-06-30 00:00:00* Test Item Value Reference Range Interpretation Comme nts SARS-CoV-2 INTERPRETATION (test code = 05609) Negative SOURCE (test code = 21428) Nasal_Swab_in _VTM__ UTM SARS-CoV-2 (COVID-19) by RT-PCR (HIGH RISK)2020-06-30 00:00:00* Test Item Value Reference Range Interpretation Comme nts SARS-CoV-2 INTERPRETATION (test code = 05323) Negative SOURCE (test code = 32291) Nasal_Swab_in _VTM__ UTM SARS-CoV-2 (COVID-19) by RT-PCR (HIGH RISK)2020-06-30 00:00:00* Test Item Value Reference Range Interpretation Comme nts SARS-CoV-2 INTERPRETATION (test code = 52009) Negative SOURCE (test code = 63652) Nasal_Swab_in _VTM__ UTM SARS-CoV-2 (COVID-19) by RT-PCR (HIGH RISK)2020-06-30 00:00:00* Test Item Value Reference Range Interpretation Comme nts SARS-CoV-2 INTERPRETATION (test code = 77965) Negative SOURCE (test code = 09891) Nasal_Swab_in _VTM__ UTM SARS-CoV-2 (COVID-19) by RT-PCR (HIGH RISK)2020-06-30 00:00:00* Test Item Value Reference Range Interpretation Comme nts SARS-CoV-2 INTERPRETATION (test code = 17127) Negative SOURCE (test code = 04776) Nasal_Swab_in _VTM__ UTM SARS-CoV-2 (COVID-19) by RT-PCR (HIGH RISK)2020-06-30 00:00:00* Test Item Value Reference Range Interpretation Comme nts SARS-CoV-2 INTERPRETATION (test code = 98455) Negative SOURCE (test code = 44967) Nasal_Swab_in _VTM__ UTM SARS-CoV-2 (COVID-19) by RT-PCR (HIGH RISK)2020-06-30 00:00:00* Test Item Value Reference Range Interpretation Comme nts SARS-CoV-2 INTERPRETATION (test code = 30126) Negative SOURCE (test code = 25903) Nasal_Swab_in _VTM__ UTM Toney Cowan CeadpoUXRI-SbC-5 (COVID-19) by RT-PCR (HIGH RISK)2020-06-30 00:00:00* Test Item Value Reference Range Interpretation Comme nts SARS-CoV-2 INTERPRETATION (test code = 82748) Negative SOURCE (test code = 75037) Nasal_Swab_in _VTM__ UTM Toney Cowan TbqtshSWWW-VyI-4 (COVID-19) by RT-PCR (HIGH RISK)2020-06-30 00:00:00* Test Item Value Reference Range Interpretation Comme nts SARS-CoV-2 INTERPRETATION (test code = 82204) Negative SOURCE (test code = 82323) Nasal_Swab_in _VTM__ UTM Toney Cowan MwtrdwMFCV-NsB-2 (COVID-19) by RT-PCR (HIGH RISK)2020-06-30 00:00:00* Test Item Value Reference Range Interpretation Comme nts SARS-CoV-2 INTERPRETATION (test code = 24878) Negative SOURCE (test code = 33821) Nasal_Swab_in _VTM__ UTM Toney Cowan YpizwpUOAO-ZeL-5 (COVID-19) by RT-PCR (HIGH RISK)2020-06-10 00:00:00* Test Item Value Reference Range Interpretation Comme nts SARS-CoV-2 INTERPRETATION (t est code = 31215) POSITIVE SOURCE (test code = 56821) NOT SPECIFIED Toney Cowan KlpirhHAOS-MiY-7 (COVID-19) by RT-PCR (HIGH RISK)2020-06-10 00:00:00* Test Item Value Reference Range Interpretation Comme nts SARS-CoV-2 INTERPRETATION (t est code = 11947) POSITIVE SOURCE (test code = 26621) NOT SPECIFIED Toney Cowan QbwqycHZQF-GqU-2 (COVID-19) by RT-PCR (HIGH RISK)2020-06-10 00:00:00* Test Item Value Reference Range Interpretation Comme nts SARS-CoV-2 INTERPRETATION (t est code = 16798) POSITIVE SOURCE (test code = 70604) NOT SPECIFIED Toney Cowan EuylwiHKIF-ZxM-2 (COVID-19) by RT-PCR (HIGH RISK)2020-06-10 00:00:00* Test Item Value Reference Range Interpretation Comme nts SARS-CoV-2 INTERPRETATION (t est code = 37459) POSITIVE SOURCE (test code = 63986) NOT SPECIFIED SARS-CoV-2 (COVID-19) by RT-PCR (HIGH RISK)2020-06-10 00:00:00* Test Item Value Reference Range Interpretation Comme nts SARS-CoV-2 INTERPRETATION (t est code = 73018) POSITIVE SOURCE (test code = 26407) NOT SPECIFIED SARS-CoV-2 (COVID-19) by RT-PCR (HIGH RISK)2020-06-10 00:00:00* Test Item Value Reference Range Interpretation Comme nts SARS-CoV-2 INTERPRETATION (t est code = 16906) POSITIVE SOURCE (test code = 02945) NOT SPECIFIED SARS-CoV-2 (COVID-19) by RT-PCR (HIGH RISK)2020-06-10 00:00:00* Test Item Value Reference Range Interpretation Comme nts SARS-CoV-2 INTERPRETATION (t est code = 40719) POSITIVE SOURCE (test code = 44644) NOT SPECIFIED SARS-CoV-2 (COVID-19) by RT-PCR (HIGH RISK)2020-06-10 00:00:00* Test Item Value Reference Range Interpretation Comme nts SARS-CoV-2 INTERPRETATION (t est code = 71973) POSITIVE SOURCE (test code = 15273) NOT SPECIFIED SARS-CoV-2 (COVID-19) by RT-PCR (HIGH RISK)2020-06-10 00:00:00* Test Item Value Reference Range Interpretation Comme nts SARS-CoV-2 INTERPRETATION (t est code = 83092) POSITIVE SOURCE (test code = 56581) NOT SPECIFIED SARS-CoV-2 (COVID-19) by RT-PCR (HIGH RISK)2020-06-10 00:00:00* Test Item Value Reference Range Interpretation Comme nts SARS-CoV-2 INTERPRETATION (t est code = 91336) POSITIVE SOURCE (test code = 47871) NOT SPECIFIED SARS-CoV-2 (COVID-19) by RT-PCR (HIGH RISK)2020-06-10 00:00:00* Test Item Value Reference Range Interpretation Comme nts SARS-CoV-2 INTERPRETATION (t est code = 65529) POSITIVE SOURCE (test code = 15628) NOT SPECIFIED SARS-CoV-2 (COVID-19) by RT-PCR (HIGH RISK)2020-06-10 00:00:00* Test Item Value Reference Range Interpretation Comme nts SARS-CoV-2 INTERPRETATION (t est code = 44268) POSITIVE SOURCE (test code = 54142) NOT SPECIFIED SARS-CoV-2 (COVID-19) by RT-PCR (HIGH RISK)2020-06-10 00:00:00* Test Item Value Reference Range Interpretation Comme nts SARS-CoV-2 INTERPRETATION (t est code = 22485) POSITIVE SOURCE (test code = 31916) NOT SPECIFIED Toney Cowan CoczlfKNIT-NjW-4 (COVID-19) by RT-PCR (HIGH RISK)2020-06-10 00:00:00* Test Item Value Reference Range Interpretation Comme nts SARS-CoV-2 INTERPRETATION (t est code = 14264) POSITIVE SOURCE (test code = 52094) NOT SPECIFIED Toney Cowan DotloeNTZK-OyD-5 (COVID-19) by RT-PCR (HIGH RISK)2020-06-10 00:00:00* Test Item Value Reference Range Interpretation Comme nts SARS-CoV-2 INTERPRETATION (t est code = 84838) POSITIVE SOURCE (test code = 49943) NOT SPECIFIED Toney Cowan AustinHEMOGLOBIN [id number] 00:00:00* Test Item Value Reference Range Interpretation Comme nts HEMOGLOBIN A1c (test code = 24870) 7.1 % Toney Cowan AustinHEMOGLOBIN [id number] 00:00:00* Test Item Value Reference Range Interpretation Comme nts HEMOGLOBIN A1c (test code = 47835) 7.1 % Toney Cowan AustinHEMOGLOBIN [id number] 00:00:00* Test Item Value Reference Range Interpretation Comme nts HEMOGLOBIN A1c (test code = 56554) 7.1 % HEMOGLOBIN [id number] 00:00:00* Test Item Value Reference Range Interpretation Comme nts HEMOGLOBIN A1c (test code = 50133) 7.1 % HEMOGLOBIN [id number] 00:00:00* Test Item Value Reference Range Interpretation Comme nts HEMOGLOBIN A1c (test code = 33356) 7.1 % HEMOGLOBIN [id number] 00:00:00* Test Item Value Reference Range Interpretation Comme nts HEMOGLOBIN A1c (test code = 83360) 7.1 % HEMOGLOBIN [id number] 00:00:00* Test Item Value Reference Range Interpretation Comme nts HEMOGLOBIN A1c (test code = 09627) 7.1 % HEMOGLOBIN [id number] 00:00:00* Test Item Value Reference Range Interpretation Comme nts HEMOGLOBIN A1c (test code = 55151) 7.1 % HEMOGLOBIN [id number] 00:00:00* Test Item Value Reference Range Interpretation Comme nts HEMOGLOBIN A1c (test code = 09734) 7.1 % HEMOGLOBIN [id number] 00:00:00* Test Item Value Reference Range Interpretation Comme nts HEMOGLOBIN A1c (test code = 34665) 7.1 % HEMOGLOBIN [id number] 00:00:00* Test Item Value Reference Range Interpretation Comme nts HEMOGLOBIN A1c (test code = 22223) 7.1 % HEMOGLOBIN [id number] 00:00:00* Test Item Value Reference Range Interpretation Comme nts HEMOGLOBIN A1c (test code = 55545) 7.1 % Toney F AustinHEMOGLOBIN [id number] 00:00:00* Test Item Value Reference Range Interpretation Comme nts HEMOGLOBIN A1c (test code = 29883) 7.1 % Toney F AustinHEMOGLOBIN [id number] 00:00:00* Test Item Value Reference Range Interpretation Comme nts HEMOGLOBIN A1c (test code = 24864) 7.1 % Toney F AustinHEMOGLOBIN [id number] 00:00:00* Test Item Value Reference Range Interpretation Comme nts HEMOGLOBIN A1c (test code = 28713) 7.1 % Toney F AustinCOMPREHENSIVE METABOLIC [id number] 00:00:00* Test Item Value Reference Range Interpretation Comme nts GLUCOSE (test code = 2217) 234 MG/DL BUN (test code = 2208) 18 MG/DL CREATININE (test code = 2214) 0.61 MG/DL eGFR AMER. (test cod e = 16659) 108 ML/MIN/1.73 eGFR NON- AMER. (test code = 80900) 93 ML/MIN/1.73 CALC BUN/CREAT (test code = [...] code = 2219) 19 U/L Toney Cowan AustinLIPID [id number] 00:00:00* Test Item Value Reference Range Interpretation Comme nts CHOLESTEROL (test code = 2210) 199 MG/DL TRIGLYCERIDES (test code = 2232) 164 MG/DL HDL CHOLESTEROL (test code = 2220) 45 MG/DL CALC LDL CHOL (test code = 2237) 126 MG/DL RISK RATIO LDL/HDL (test cod e = 2238) 2.80 RATIO Toney Cowan AustinCOMPREHENSIVE METABOLIC [id number] 00:00:00* Test Item Value Reference Range Interpretation Comme nts GLUCOSE (test code = 2217) 234 MG/DL BUN (test code = 2208) 18 MG/DL CREATININE (test code = 2214) 0.61 MG/DL eGFR AMER. (test cod e = 33673) 108 ML/MIN/1.73 eGFR NON- AMER. (test code = 41274) 93 ML/MIN/1.73 CALC BUN/CREAT (test code = [...] code = 2219) 19 U/L Toney Cowan AustinLIPID [id number] 00:00:00* Test Item Value Reference Range Interpretation Comme nts CHOLESTEROL (test code = 2210) 199 MG/DL TRIGLYCERIDES (test code = 2232) 164 MG/DL HDL CHOLESTEROL (test code = 2220) 45 MG/DL CALC LDL CHOL (test code = 2237) 126 MG/DL RISK RATIO LDL/HDL (test cod e = 2238) 2.80 RATIO Toney RennerCOMPREHENSIVE METABOLIC [id number] 00:00:00* Test Item Value Reference Range Interpretation Comme nts GLUCOSE (test code = 2217) 234 MG/DL BUN (test code = 2208) 18 MG/DL CREATININE (test code = 2214) 0.61 MG/DL eGFR AMER. (test cod e = 23527) 108 ML/MIN/1.73 eGFR NON- AMER. (test code = 86755) 93 ML/MIN/1.73 CALC BUN/CREAT (test code = [...] (test code = 2219) 19 U/L LIPID [id number] 00:00:00* Test Item Value Reference Range Interpretation Comme nts CHOLESTEROL (test code = 2210) 199 MG/DL TRIGLYCERIDES (test code = 2232) 164 MG/DL HDL CHOLESTEROL (test code = 2220) 45 MG/DL CALC LDL CHOL (test code = 2237) 126 MG/DL RISK RATIO LDL/HDL (test cod e = 2238) 2.80 RATIO COMPREHENSIVE METABOLIC [id number] 00:00:00* Test Item Value Reference Range Interpretation Comme nts GLUCOSE (test code = 2217) 234 MG/DL BUN (test code = 2208) 18 MG/DL CREATININE (test code = 2214) 0.61 MG/DL eGFR AMER. (test cod e = 80071) 108 ML/MIN/1.73 eGFR NON- AMER. (test code = 98651) 93 ML/MIN/1.73 CALC BUN/CREAT (test code = [...] (test code = 2219) 19 U/L LIPID [id number] 00:00:00* Test Item Value Reference Range Interpretation Comme nts CHOLESTEROL (test code = 2210) 199 MG/DL TRIGLYCERIDES (test code = 2232) 164 MG/DL HDL CHOLESTEROL (test code = 2220) 45 MG/DL CALC LDL CHOL (test code = 2237) 126 MG/DL RISK RATIO LDL/HDL (test cod e = 2238) 2.80 RATIO COMPREHENSIVE METABOLIC [id number] 00:00:00* Test Item Value Reference Range Interpretation Comme nts GLUCOSE (test code = 2217) 234 MG/DL BUN (test code = 2208) 18 MG/DL CREATININE (test code = 2214) 0.61 MG/DL eGFR AMER. (test cod e = 42230) 108 ML/MIN/1.73 eGFR NON- AMER. (test code = 28064) 93 ML/MIN/1.73 CALC BUN/CREAT (test code = [...] (test code = 2219) 19 U/L LIPID [id number] 00:00:00* Test Item Value Reference Range Interpretation Comme nts CHOLESTEROL (test code = 2210) 199 MG/DL TRIGLYCERIDES (test code = 2232) 164 MG/DL HDL CHOLESTEROL (test code = 2220) 45 MG/DL CALC LDL CHOL (test code = 2237) 126 MG/DL RISK RATIO LDL/HDL (test cod e = 2238) 2.80 RATIO COMPREHENSIVE METABOLIC [id number] 00:00:00* Test Item Value Reference Range Interpretation Comme nts GLUCOSE (test code = 2217) 234 MG/DL BUN (test code = 2208) 18 MG/DL CREATININE (test code = 2214) 0.61 MG/DL eGFR AMER. (test cod e = 05079) 108 ML/MIN/1.73 eGFR NON- AMER. (test code = 74533) 93 ML/MIN/1.73 CALC BUN/CREAT (test code = [...] (test code = 2219) 19 U/L LIPID [id number] 00:00:00* Test Item Value Reference Range Interpretation Comme nts CHOLESTEROL (test code = 2210) 199 MG/DL TRIGLYCERIDES (test code = 2232) 164 MG/DL HDL CHOLESTEROL (test code = 2220) 45 MG/DL CALC LDL CHOL (test code = 2237) 126 MG/DL RISK RATIO LDL/HDL (test cod e = 2238) 2.80 RATIO COMPREHENSIVE METABOLIC [id number] 00:00:00* Test Item Value Reference Range Interpretation Comme nts GLUCOSE (test code = 2217) 234 MG/DL BUN (test code = 2208) 18 MG/DL CREATININE (test code = 2214) 0.61 MG/DL eGFR AMER. (test cod e = 69417) 108 ML/MIN/1.73 eGFR NON- AMER. (test code = 97835) 93 ML/MIN/1.73 CALC BUN/CREAT (test code = [...] (test code = 2219) 19 U/L LIPID [id number] 00:00:00* Test Item Value Reference Range Interpretation Comme nts CHOLESTEROL (test code = 2210) 199 MG/DL TRIGLYCERIDES (test code = 2232) 164 MG/DL HDL CHOLESTEROL (test code = 2220) 45 MG/DL CALC LDL CHOL (test code = 2237) 126 MG/DL RISK RATIO LDL/HDL (test cod e = 2238) 2.80 RATIO COMPREHENSIVE METABOLIC [id number] 00:00:00* Test Item Value Reference Range Interpretation Comme nts GLUCOSE (test code = 2217) 234 MG/DL BUN (test code = 2208) 18 MG/DL CREATININE (test code = 2214) 0.61 MG/DL eGFR AMER. (test cod e = 74868) 108 ML/MIN/1.73 eGFR NON- AMER. (test code = 83746) 93 ML/MIN/1.73 CALC BUN/CREAT (test code = [...] (test code = 2219) 19 U/L LIPID [id number] 00:00:00* Test Item Value Reference Range Interpretation Comme nts CHOLESTEROL (test code = 2210) 199 MG/DL TRIGLYCERIDES (test code = 2232) 164 MG/DL HDL CHOLESTEROL (test code = 2220) 45 MG/DL CALC LDL CHOL (test code = 2237) 126 MG/DL RISK RATIO LDL/HDL (test cod e = 2238) 2.80 RATIO COMPREHENSIVE METABOLIC [id number] 00:00:00* Test Item Value Reference Range Interpretation Comme nts GLUCOSE (test code = 2217) 234 MG/DL BUN (test code = 2208) 18 MG/DL CREATININE (test code = 2214) 0.61 MG/DL eGFR AMER. (test cod e = 79655) 108 ML/MIN/1.73 eGFR NON- AMER. (test code = 34964) 93 ML/MIN/1.73 CALC BUN/CREAT (test code = [...] (test code = 2219) 19 U/L LIPID [id number] 00:00:00* Test Item Value Reference Range Interpretation Comme nts CHOLESTEROL (test code = 2210) 199 MG/DL TRIGLYCERIDES (test code = 2232) 164 MG/DL HDL CHOLESTEROL (test code = 2220) 45 MG/DL CALC LDL CHOL (test code = 2237) 126 MG/DL RISK RATIO LDL/HDL (test cod e = 2238) 2.80 RATIO COMPREHENSIVE METABOLIC [id number] 00:00:00* Test Item Value Reference Range Interpretation Comme nts GLUCOSE (test code = 2217) 234 MG/DL BUN (test code = 2208) 18 MG/DL CREATININE (test code = 2214) 0.61 MG/DL eGFR AMER. (test cod e = 09082) 108 ML/MIN/1.73 eGFR NON- AMER. (test code = 28107) 93 ML/MIN/1.73 CALC BUN/CREAT (test code = [...] (test code = 2219) 19 U/L LIPID [id number] 00:00:00* Test Item Value Reference Range Interpretation Comme nts CHOLESTEROL (test code = 2210) 199 MG/DL TRIGLYCERIDES (test code = 2232) 164 MG/DL HDL CHOLESTEROL (test code = 2220) 45 MG/DL CALC LDL CHOL (test code = 2237) 126 MG/DL RISK RATIO LDL/HDL (test cod e = 2238) 2.80 RATIO COMPREHENSIVE METABOLIC [id number] 00:00:00* Test Item Value Reference Range Interpretation Comme nts GLUCOSE (test code = 2217) 234 MG/DL BUN (test code = 2208) 18 MG/DL CREATININE (test code = 2214) 0.61 MG/DL eGFR AMER. (test cod e = 13045) 108 ML/MIN/1.73 eGFR NON- AMER. (test code = 36515) 93 ML/MIN/1.73 CALC BUN/CREAT (test code = [...] (test code = 2219) 19 U/L LIPID [id number] 00:00:00* Test Item Value Reference Range Interpretation Comme nts CHOLESTEROL (test code = 2210) 199 MG/DL TRIGLYCERIDES (test code = 2232) 164 MG/DL HDL CHOLESTEROL (test code = 2220) 45 MG/DL CALC LDL CHOL (test code = 2237) 126 MG/DL RISK RATIO LDL/HDL (test cod e = 2238) 2.80 RATIO COMPREHENSIVE METABOLIC [id number] 00:00:00* Test Item Value Reference Range Interpretation Comme nts GLUCOSE (test code = 2217) 234 MG/DL BUN (test code = 2208) 18 MG/DL CREATININE (test code = 2214) 0.61 MG/DL eGFR AMER. (test cod e = 75059) 108 ML/MIN/1.73 eGFR NON- AMER. (test code = 68708) 93 ML/MIN/1.73 CALC BUN/CREAT (test code = [...] (test code = 2219) 19 U/L Toney F AustinLIPID [id number] 00:00:00* Test Item Value Reference Range Interpretation Comme nts CHOLESTEROL (test code = 2210) 199 MG/DL TRIGLYCERIDES (test code = 2232) 164 MG/DL HDL CHOLESTEROL (test code = 2220) 45 MG/DL CALC LDL CHOL (test code = 2237) 126 MG/DL RISK RATIO LDL/HDL (test cod e = 2238) 2.80 RATIO Toney F ZurdoCOMPREHENSIVE METABOLIC [id number] 00:00:00* Test Item Value Reference Range Interpretation Comme nts GLUCOSE (test code = 2217) 234 MG/DL BUN (test code = 2208) 18 MG/DL CREATININE (test code = 2214) 0.61 MG/DL eGFR AMER. (test cod e = 81262) 108 ML/MIN/1.73 eGFR NON- AMER. (test code = 24132) 93 ML/MIN/1.73 CALC BUN/CREAT (test code = [...] (test code = 2219) 19 U/L Toney Camryn WaterburyLIPID [id number] 00:00:00* Test Item Value Reference Range Interpretation Comme nts CHOLESTEROL (test code = 2210) 199 MG/DL TRIGLYCERIDES (test code = 2232) 164 MG/DL HDL CHOLESTEROL (test code = 2220) 45 MG/DL CALC LDL CHOL (test code = 2237) 126 MG/DL RISK RATIO LDL/HDL (test cod e = 2238) 2.80 RATIO Toney Cowan ZurdoCOMPREHENSIVE METABOLIC [id number] 00:00:00* Test Item Value Reference Range Interpretation Comme nts GLUCOSE (test code = 2217) 234 MG/DL BUN (test code = 2208) 18 MG/DL CREATININE (test code = 2214) 0.61 MG/DL eGFR AMER. (test cod e = 04123) 108 ML/MIN/1.73 eGFR NON- AMER. (test code = 59036) 93 ML/MIN/1.73 CALC BUN/CREAT (test code = [...] 0.5 MG/DL ALKALINE PHOSPHATASE (test code = 220) 75 U/L AST (test code = 2218) 22 U/L ALT (test code = 2219) 19 U/L Toney RennerLIPID [id number] 00:00:00* Test Item Value Reference Range Interpretation Comme nts CHOLESTEROL (test code = 2210) 199 MG/DL TRIGLYCERIDES (test code = 2232) 164 MG/DL HDL CHOLESTEROL (test code = 2220) 45 MG/DL CALC LDL CHOL (test code = 2237) 126 MG/DL RISK RATIO LDL/HDL (test cod e = 2238) 2.80 RATIO Toney RennerCOMPREHENSIVE METABOLIC [id number] 00:00:00* Test Item Value Reference Range Interpretation Comme nts GLUCOSE (test code = 2217) 234 MG/DL BUN (test code = 8) 18 MG/DL CREATININE (test code = 2214) 0.61 MG/DL eGFR AMER. (test cod e = 67650) 108 ML/MIN/1.73 eGFR NON- AMER. (test code = 08036) 93 ML/MIN/1.73 CALC BUN/CREAT (test code = [...] (test code = 2219) 19 U/L Toney RennerLIPID [id number] 00:00:00* Test Item Value Reference Range Interpretation Comme nts CHOLESTEROL (test code = 2210) 199 MG/DL TRIGLYCERIDES (test code = 2232) 164 MG/DL HDL CHOLESTEROL (test code = 2220) 45 MG/DL CALC LDL CHOL (test code = 2237) 126 MG/DL RISK RATIO LDL/HDL (test cod e = 2238) 2.80 RATIO Toney RennerHEMOGLOBIN [id number] 00:00:00* Test Item Value Reference Range Interpretation Comme nts HEMOGLOBIN A1c (test code = 00600) 9.3 % Toney RennerCOMPREHENSIVE METABOLIC [id number] 00:00:00* Test Item Value Reference Range Interpretation Comme nts GLUCOSE (test code = 2217) 189 MG/DL BUN (test code = 2208) 15 MG/DL CREATININE (test code = 2214) 0.55 MG/DL eGFR AMER. (test cod e = 73134) 112 ML/MIN/1.73 eGFR NON- AMER. (test code = 84019) 96 ML/MIN/1.73 CALC BUN/CREAT (test code = [...] = 2219) 21 U/L Toney RennerCBC W/AUTO [id number] 00:00:00* Test Item Value Reference Range Interpretation [...] (test code = 1015) 239 K/UL Toney RennerLIPID [id number] 00:00:00* Test Item Value Reference Range Interpretation Comme nts CHOLESTEROL (test code = 2210) 240 MG/DL TRIGLYCERIDES (test code = 2232) 137 MG/DL HDL CHOLESTEROL (test code = 2220) 48 MG/DL CALC LDL CHOL (test code = 2237) 165 MG/DL RISK RATIO LDL/HDL (test cod e = 2238) 3.43 RATIO Toney RennerMICROALBUMIN/CREATININE, RANDOM AND [id number] 00:00:00* Test Item Value Reference Range Interpretation Comme nts CREATININE, URINE, CONC. (te st code = 2072) 146.0 MG/DL ALBUMIN, URINE, RANDOM (test code = 14184) 1.0 MG/DL CALC ALBUMIN/CREAT, RND (baljinder t code = 50449) 7 MG/G Toney RennerHEMOGLOBIN [id number] 00:00:00* Test Item Value Reference Range Interpretation Comme nts HEMOGLOBIN A1c (test code = 18522) 9.3 % Toney RennerHEMOGLOBIN [id number] 00:00:00* Test Item Value Reference Range Interpretation Comme nts HEMOGLOBIN A1c (test code = 84933) 9.3 % Toney RennerCOMPREHENSIVE METABOLIC [id number] 00:00:00* Test Item Value Reference Range Interpretation Comme nts GLUCOSE (test code = 2217) 189 MG/DL BUN (test code = 2208) 15 MG/DL CREATININE (test code = 2214) 0.55 MG/DL eGFR AMER. (test cod e = 78641) 112 ML/MIN/1.73 eGFR NON- AMER. (test code = 44901) 96 ML/MIN/1.73 CALC BUN/CREAT (test code = [...] = 2219) 21 U/L Toney RennerCBC W/AUTO [id number] 00:00:00* Test Item Value Reference Range Interpretation [...] (test code = 1015) 239 K/UL Toney F AustinLIPID [id number] 00:00:00* Test Item Value Reference Range Interpretation Comme nts CHOLESTEROL (test code = 2210) 240 MG/DL TRIGLYCERIDES (test code = 2232) 137 MG/DL HDL CHOLESTEROL (test code = 2220) 48 MG/DL CALC LDL CHOL (test code = 2237) 165 MG/DL RISK RATIO LDL/HDL (test cod e = 2238) 3.43 RATIO Toney RennerMICROALBUMIN/CREATININE, RANDOM AND [id number] 00:00:00* Test Item Value Reference Range Interpretation Comme nts CREATININE, URINE, CONC. (te st code = 2072) 146.0 MG/DL ALBUMIN, URINE, RANDOM (test code = 50063) 1.0 MG/DL CALC ALBUMIN/CREAT, RND (baljinder t code = 37668) 7 MG/G Toney RennerHEMOGLOBIN [id number] 00:00:00* Test Item Value Reference Range Interpretation Comme nts HEMOGLOBIN A1c (test code = 61680) 9.3 % COMPREHENSIVE METABOLIC [id number] 00:00:00* Test Item Value Reference Range Interpretation Comme nts GLUCOSE (test code = 2217) 189 MG/DL BUN (test code = 2208) 15 MG/DL CREATININE (test code = 2214) 0.55 MG/DL eGFR AMER. (test cod e = 70184) 112 ML/MIN/1.73 eGFR NON- AMER. (test code = 96098) 96 ML/MIN/1.73 CALC BUN/CREAT (test code = [...] code = 2219) 21 U/L CBC W/AUTO [id number] 00:00:00* Test Item Value Reference Range Interpretation [...] (test code = 1015) 239 K/UL LIPID [id number] 00:00:00* Test Item Value Reference Range Interpretation Comme nts CHOLESTEROL (test code = 2210) 240 MG/DL TRIGLYCERIDES (test code = 2232) 137 MG/DL HDL CHOLESTEROL (test code = 2220) 48 MG/DL CALC LDL CHOL (test code = 2237) 165 MG/DL RISK RATIO LDL/HDL (test cod e = 2238) 3.43 RATIO MICROALBUMIN/CREATININE, RANDOM AND [id number] 00:00:00* Test Item Value Reference Range Interpretation Comme nts CREATININE, URINE, CONC. (te st code = 2072) 146.0 MG/DL ALBUMIN, URINE, RANDOM (test code = 96238) 1.0 MG/DL CALC ALBUMIN/CREAT, RND (baljinder t code = 34194) 7 MG/G HEMOGLOBIN [id number] 00:00:00* Test Item Value Reference Range Interpretation Comme nts HEMOGLOBIN A1c (test code = 33938) 9.3 % COMPREHENSIVE METABOLIC [id number] 00:00:00* Test Item Value Reference Range Interpretation Comme nts GLUCOSE (test code = 2217) 189 MG/DL BUN (test code = 2208) 15 MG/DL CREATININE (test code = 2214) 0.55 MG/DL eGFR AMER. (test cod e = 52559) 112 ML/MIN/1.73 eGFR NON- AMER. (test code = 44635) 96 ML/MIN/1.73 CALC BUN/CREAT (test code = [...] code = 2219) 21 U/L CBC W/AUTO [id number] 00:00:00* Test Item Value Reference Range Interpretation [...] (test code = 1015) 239 K/UL LIPID [id number] 00:00:00* Test Item Value Reference Range Interpretation Comme nts CHOLESTEROL (test code = 2210) 240 MG/DL TRIGLYCERIDES (test code = 2232) 137 MG/DL HDL CHOLESTEROL (test code = 2220) 48 MG/DL CALC LDL CHOL (test code = 2237) 165 MG/DL RISK RATIO LDL/HDL (test cod e = 2238) 3.43 RATIO MICROALBUMIN/CREATININE, RANDOM AND [id number] 00:00:00* Test Item Value Reference Range Interpretation Comme nts CREATININE, URINE, CONC. (te st code = 2072) 146.0 MG/DL ALBUMIN, URINE, RANDOM (test code = 19428) 1.0 MG/DL CALC ALBUMIN/CREAT, RND (baljinder t code = 85043) 7 MG/G HEMOGLOBIN [id number] 00:00:00* Test Item Value Reference Range Interpretation Comme nts HEMOGLOBIN A1c (test code = 83577) 9.3 % COMPREHENSIVE METABOLIC [id number] 00:00:00* Test Item Value Reference Range Interpretation Comme nts GLUCOSE (test code = 2217) 189 MG/DL BUN (test code = 2208) 15 MG/DL CREATININE (test code = 2214) 0.55 MG/DL eGFR AMER. (test cod e = 84795) 112 ML/MIN/1.73 eGFR NON- AMER. (test code = 87703) 96 ML/MIN/1.73 CALC BUN/CREAT (test code = [...] code = 2219) 21 U/L CBC W/AUTO [id number] 00:00:00* Test Item Value Reference Range Interpretation [...] (test code = 1015) 239 K/UL LIPID [id number] 00:00:00* Test Item Value Reference Range Interpretation Comme nts CHOLESTEROL (test code = 2210) 240 MG/DL TRIGLYCERIDES (test code = 2232) 137 MG/DL HDL CHOLESTEROL (test code = 2220) 48 MG/DL CALC LDL CHOL (test code = 2237) 165 MG/DL RISK RATIO LDL/HDL (test cod e = 2238) 3.43 RATIO MICROALBUMIN/CREATININE, RANDOM AND [id number] 00:00:00* Test Item Value Reference Range Interpretation Comme nts CREATININE, URINE, CONC. (te st code = 2072) 146.0 MG/DL ALBUMIN, URINE, RANDOM (test code = 10835) 1.0 MG/DL CALC ALBUMIN/CREAT, RND (baljinder t code = 29905) 7 MG/G HEMOGLOBIN [id number] 00:00:00* Test Item Value Reference Range Interpretation Comme nts HEMOGLOBIN A1c (test code = 15104) 9.3 % COMPREHENSIVE METABOLIC [id number] 00:00:00* Test Item Value Reference Range Interpretation Comme nts GLUCOSE (test code = 2217) 189 MG/DL BUN (test code = 2208) 15 MG/DL CREATININE (test code = 2214) 0.55 MG/DL eGFR AMER. (test cod e = 62811) 112 ML/MIN/1.73 eGFR NON- AMER. (test code = 58749) 96 ML/MIN/1.73 CALC BUN/CREAT (test code = [...] code = 2219) 21 U/L CBC W/AUTO [id number] 00:00:00* Test Item Value Reference Range Interpretation [...] (test code = 1015) 239 K/UL HEMOGLOBIN [id number] 00:00:00* Test Item Value Reference Range Interpretation Comme nts HEMOGLOBIN A1c (test code = 53462) 9.3 % LIPID [id number] 00:00:00* Test Item Value Reference Range Interpretation Comme nts CHOLESTEROL (test code = 2210) 240 MG/DL TRIGLYCERIDES (test code = 2232) 137 MG/DL HDL CHOLESTEROL (test code = 2220) 48 MG/DL CALC LDL CHOL (test code = 2237) 165 MG/DL RISK RATIO LDL/HDL (test cod e = 2238) 3.43 RATIO MICROALBUMIN/CREATININE, RANDOM AND [id number] 00:00:00* Test Item Value Reference Range Interpretation Comme nts CREATININE, URINE, CONC. (te st code = 2072) 146.0 MG/DL ALBUMIN, URINE, RANDOM (test code = 18376) 1.0 MG/DL CALC ALBUMIN/CREAT, RND (baljinder t code = 79505) 7 MG/G COMPREHENSIVE METABOLIC [id number] 00:00:00* Test Item Value Reference Range Interpretation Comme nts GLUCOSE (test code = 2217) 189 MG/DL BUN (test code = 2208) 15 MG/DL CREATININE (test code = 2214) 0.55 MG/DL eGFR AMER. (test cod e = 80528) 112 ML/MIN/1.73 eGFR NON- AMER. (test code = 70324) 96 ML/MIN/1.73 CALC BUN/CREAT (test code = [...] code = 2219) 21 U/L CBC W/AUTO [id number] 00:00:00* Test Item Value Reference Range Interpretation [...] (test code = 1015) 239 K/UL HEMOGLOBIN [id number] 00:00:00* Test Item Value Reference Range Interpretation Comme nts HEMOGLOBIN A1c (test code = 55103) 9.3 % COMPREHENSIVE METABOLIC [id number] 00:00:00* Test Item Value Reference Range Interpretation Comme nts GLUCOSE (test code = 2217) 189 MG/DL BUN (test code = 2208) 15 MG/DL CREATININE (test code = 2214) 0.55 MG/DL eGFR AMER. (test cod e = 56519) 112 ML/MIN/1.73 eGFR NON- AMER. (test code = 23425) 96 ML/MIN/1.73 CALC BUN/CREAT (test code = [...] (test code = 2219) 21 U/L LIPID [id number] 00:00:00* Test Item Value Reference Range Interpretation Comme nts CHOLESTEROL (test code = 2210) 240 MG/DL TRIGLYCERIDES (test code = 2232) 137 MG/DL HDL CHOLESTEROL (test code = 2220) 48 MG/DL CALC LDL CHOL (test code = 2237) 165 MG/DL RISK RATIO LDL/HDL (test cod e = 2238) 3.43 RATIO CBC W/AUTO [id number] 00:00:00* Test Item Value Reference Range Interpretation [...] (test code = 1015) 239 K/UL LIPID [id number] 00:00:00* Test Item Value Reference Range Interpretation Comme nts CHOLESTEROL (test code = 2210) 240 MG/DL TRIGLYCERIDES (test code = 2232) 137 MG/DL HDL CHOLESTEROL (test code = 2220) 48 MG/DL CALC LDL CHOL (test code = 2237) 165 MG/DL RISK RATIO LDL/HDL (test cod e = 2238) 3.43 RATIO MICROALBUMIN/CREATININE, RANDOM AND [id number] 00:00:00* Test Item Value Reference Range Interpretation Comme nts CREATININE, URINE, CONC. (te st code = 207) 146.0 MG/DL ALBUMIN, URINE, RANDOM (test code = 81608) 1.0 MG/DL CALC ALBUMIN/CREAT, RND (baljinder t code = 19197) 7 MG/G MICROALBUMIN/CREATININE, RANDOM AND [id number] 00:00:00* Test Item Value Reference Range Interpretation Comme nts CREATININE, URINE, CONC. (te st code = 2071) 146.0 MG/DL ALBUMIN, URINE, RANDOM (test code = 60065) 1.0 MG/DL CALC ALBUMIN/CREAT, RND (baljinder t code = 95580) 7 MG/G HEMOGLOBIN [id number] 00:00:00* Test Item Value Reference Range Interpretation Comme nts HEMOGLOBIN A1c (test code = 69535) 9.3 % COMPREHENSIVE METABOLIC [id number] 00:00:00* Test Item Value Reference Range Interpretation Comme nts GLUCOSE (test code = 2217) 189 MG/DL BUN (test code = 2208) 15 MG/DL CREATININE (test code = 2214) 0.55 MG/DL eGFR AMER. (test cod e = 22722) 112 ML/MIN/1.73 eGFR NON- AMER. (test code = 82101) 96 ML/MIN/1.73 CALC BUN/CREAT (test code = [...] code = 2219) 21 U/L CBC W/AUTO [id number] 00:00:00* Test Item Value Reference Range Interpretation [...] (test code = 1015) 239 K/UL LIPID [id number] 00:00:00* Test Item Value Reference Range Interpretation Comme nts CHOLESTEROL (test code = 2210) 240 MG/DL TRIGLYCERIDES (test code = 2232) 137 MG/DL HDL CHOLESTEROL (test code = 2220) 48 MG/DL CALC LDL CHOL (test code = 2237) 165 MG/DL RISK RATIO LDL/HDL (test cod e = 2238) 3.43 RATIO MICROALBUMIN/CREATININE, RANDOM AND [id number] 00:00:00* Test Item Value Reference Range Interpretation Comme nts CREATININE, URINE, CONC. (te st code = 2072) 146.0 MG/DL ALBUMIN, URINE, RANDOM (test code = 24231) 1.0 MG/DL CALC ALBUMIN/CREAT, RND (baljinder t code = 87725) 7 MG/G HEMOGLOBIN [id number] 00:00:00* Test Item Value Reference Range Interpretation Comme nts HEMOGLOBIN A1c (test code = 71424) 9.3 % COMPREHENSIVE METABOLIC [id number] 00:00:00* Test Item Value Reference Range Interpretation Comme nts GLUCOSE (test code = 2217) 189 MG/DL BUN (test code = 2208) 15 MG/DL CREATININE (test code = 2214) 0.55 MG/DL eGFR AMER. (test cod e = 98964) 112 ML/MIN/1.73 eGFR NON- AMER. (test code = 52004) 96 ML/MIN/1.73 CALC BUN/CREAT (test code = [...] code = 2219) 21 U/L CBC W/AUTO [id number] 00:00:00* Test Item Value Reference Range Interpretation [...] (test code = 1015) 239 K/UL LIPID [id number] 00:00:00* Test Item Value Reference Range Interpretation Comme nts CHOLESTEROL (test code = 2210) 240 MG/DL TRIGLYCERIDES (test code = 2232) 137 MG/DL HDL CHOLESTEROL (test code = 2220) 48 MG/DL CALC LDL CHOL (test code = 2237) 165 MG/DL RISK RATIO LDL/HDL (test cod e = 2238) 3.43 RATIO MICROALBUMIN/CREATININE, RANDOM AND [id number] 00:00:00* Test Item Value Reference Range Interpretation Comme nts CREATININE, URINE, CONC. (te st code = 2072) 146.0 MG/DL ALBUMIN, URINE, RANDOM (test code = 38251) 1.0 MG/DL CALC ALBUMIN/CREAT, RND (baljinder t code = 76274) 7 MG/G HEMOGLOBIN [id number] 00:00:00* Test Item Value Reference Range Interpretation Comme nts HEMOGLOBIN A1c (test code = 31869) 9.3 % COMPREHENSIVE METABOLIC [id number] 00:00:00* Test Item Value Reference Range Interpretation Comme nts GLUCOSE (test code = 2217) 189 MG/DL BUN (test code = 2208) 15 MG/DL CREATININE (test code = 2214) 0.55 MG/DL eGFR AMER. (test cod e = 95850) 112 ML/MIN/1.73 eGFR NON- AMER. (test code = 08777) 96 ML/MIN/1.73 CALC BUN/CREAT (test code = [...] code = 2219) 21 U/L CBC W/AUTO [id number] 00:00:00* Test Item Value Reference Range Interpretation [...] (test code = 1015) 239 K/UL LIPID [id number] 00:00:00* Test Item Value Reference Range Interpretation Comme nts CHOLESTEROL (test code = 2210) 240 MG/DL TRIGLYCERIDES (test code = 2232) 137 MG/DL HDL CHOLESTEROL (test code = 2220) 48 MG/DL CALC LDL CHOL (test code = 2237) 165 MG/DL RISK RATIO LDL/HDL (test cod e = 2238) 3.43 RATIO MICROALBUMIN/CREATININE, RANDOM AND [id number] 00:00:00* Test Item Value Reference Range Interpretation Comme nts CREATININE, URINE, CONC. (te st code = 2072) 146.0 MG/DL ALBUMIN, URINE, RANDOM (test code = 38889) 1.0 MG/DL CALC ALBUMIN/CREAT, RND (baljinder t code = 12680) 7 MG/G COMPREHENSIVE METABOLIC [id number] 00:00:00* Test Item Value Reference Range Interpretation Comme nts GLUCOSE (test code = 2217) 189 MG/DL BUN (test code = 2208) 15 MG/DL CREATININE (test code = 2214) 0.55 MG/DL eGFR AMER. (test cod e = 64489) 112 ML/MIN/1.73 eGFR NON- AMER. (test code = 18626) 96 ML/MIN/1.73 CALC BUN/CREAT (test code = [...] (test code = 2219) 21 U/L Toney RennerChelsie W/AUTO [id number] 00:00:00* Test Item Value Reference Range Interpretation [...] = 1015) 239 K/UL Toney Cowan AustinLIPID [id number] 00:00:00* Test Item Value Reference Range Interpretation Comme nts CHOLESTEROL (test code = 2210) 240 MG/DL TRIGLYCERIDES (test code = 2232) 137 MG/DL HDL CHOLESTEROL (test code = 2220) 48 MG/DL CALC LDL CHOL (test code = 2237) 165 MG/DL RISK RATIO LDL/HDL (test cod e = 2238) 3.43 RATIO Toney RennerMICROALBUMIN/CREATININE, RANDOM AND [id number] 00:00:00* Test Item Value Reference Range Interpretation Comme nts CREATININE, URINE, CONC. (te st code = 2072) 146.0 MG/DL ALBUMIN, URINE, RANDOM (test code = 80852) 1.0 MG/DL CALC ALBUMIN/CREAT, RND (baljinder t code = 38358) 7 MG/G Toney RennerHEMOGLOBIN [id number] 00:00:00* Test Item Value Reference Range Interpretation Comme [facility] HEMOGLOBIN A1c (test code = 60110) 9.3 % Toney RennerCOMPREHENSIVE METABOLIC [id number] 00:00:00* Test Item Value Reference Range Interpretation Comme nts GLUCOSE (test code = 2217) 189 MG/DL BUN (test code = 2208) 15 MG/DL CREATININE (test code = 2214) 0.55 MG/DL eGFR AMER. (test cod e = 59058) 112 ML/MIN/1.73 eGFR NON- AMER. (test code = 55298) 96 ML/MIN/1.73 CALC BUN/CREAT (test code = [...] = 2219) 21 U/L Toney RennerCBC W/AUTO [id number] 00:00:00* Test Item Value Reference Range Interpretation [...] (test code = 1015) 239 K/UL Toney RennerLIPID [id number] 00:00:00* Test Item Value Reference Range Interpretation Comme nts CHOLESTEROL (test code = 2210) 240 MG/DL TRIGLYCERIDES (test code = 2232) 137 MG/DL HDL CHOLESTEROL (test code = 2220) 48 MG/DL CALC LDL CHOL (test code = 2237) 165 MG/DL RISK RATIO LDL/HDL (test cod e = 2238) 3.43 RATIO Toney RennerMICROALBUMIN/CREATININE, RANDOM AND [id number] 00:00:00* Test Item Value Reference Range Interpretation Comme nts CREATININE, URINE, CONC. (te st code = 2072) 146.0 MG/DL ALBUMIN, URINE, RANDOM (test code = 04750) 1.0 MG/DL CALC ALBUMIN/CREAT, RND (baljinder t code = 32376) 7 MG/G Toney RennerHEMOGLOBIN [id number] 00:00:00* Test Item Value Reference Range Interpretation Comme [facility] HEMOGLOBIN A1c (test code = 89145) 9.3 % Toney RennerCOMPREHENSIVE METABOLIC [id number] 00:00:00* Test Item Value Reference Range Interpretation Comme nts GLUCOSE (test code = 2217) 189 MG/DL BUN (test code = 2208) 15 MG/DL CREATININE (test code = 2214) 0.55 MG/DL eGFR AMER. (test cod e = 32443) 112 ML/MIN/1.73 eGFR NON- AMER. (test code = 98172) 96 ML/MIN/1.73 CALC BUN/CREAT (test code = [...] = 2219) 21 U/L Toney RennerCBC W/AUTO [id number] 00:00:00* Test Item Value Reference Range Interpretation [...] = 1015) 239 K/UL Toney Cowan AustinLIPID [id number] 00:00:00* Test Item Value Reference Range Interpretation Comme nts CHOLESTEROL (test code = 2210) 240 MG/DL TRIGLYCERIDES (test code = 2232) 137 MG/DL HDL CHOLESTEROL (test code = 2220) 48 MG/DL CALC LDL CHOL (test code = 2237) 165 MG/DL RISK RATIO LDL/HDL (test cod e = 2238) 3.43 RATIO Toney RennerMICROALBUMIN/CREATININE, RANDOM AND [id number] 00:00:00* Test Item Value Reference Range Interpretation Comme nts CREATININE, URINE, CONC. (te st code = 2072) 146.0 MG/DL ALBUMIN, URINE, RANDOM (test code = 80208) 1.0 MG/DL CALC ALBUMIN/CREAT, RND (baljinder t code = 09310) 7 MG/G Toney RennerHEMOGLOBIN [id number] 00:00:00* Test Item Value Reference Range Interpretation Comme nts HEMOGLOBIN A1c (test code = 55778) 9.3 % Toney RennerCOMPREHENSIVE METABOLIC [id number] 00:00:00* Test Item Value Reference Range Interpretation Comme nts GLUCOSE (test code = 2217) 189 MG/DL BUN (test code = 2208) 15 MG/DL CREATININE (test code = 2214) 0.55 MG/DL eGFR AMER. (test cod e = 75276) 112 ML/MIN/1.73 eGFR NON- AMER. (test code = 16010) 96 ML/MIN/1.73 CALC BUN/CREAT (test code = [...] (test code = 2219) 21 U/L Toney F ZurdoCBC W/AUTO [id number] 00:00:00* Test Item Value Reference Range Interpretation [...] (test code = 1015) 239 K/UL Toney RennerLIPID [id number] 00:00:00* Test Item Value Reference Range Interpretation Comme nts CHOLESTEROL (test code = 2210) 240 MG/DL TRIGLYCERIDES (test code = 2232) 137 MG/DL HDL CHOLESTEROL (test code = 2220) 48 MG/DL CALC LDL CHOL (test code = 2237) 165 MG/DL RISK RATIO LDL/HDL (test cod e = 2238) 3.43 RATIO Toney RennerMICROALBUMIN/CREATININE, RANDOM AND [id number] 00:00:00* Test Item Value Reference Range Interpretation Comme nts CREATININE, URINE, CONC. (te st code = 2072) 146.0 MG/DL ALBUMIN, URINE, RANDOM (test code = 27692) 1.0 MG/DL CALC ALBUMIN/CREAT, RND (baljinder t code = 34399) 7 MG/G Toney [id number] 06:37:00* Test Item Value Reference Range Interpretation Comme nts GLUBED (test code = GLUBED) 168 mg/dL 70-105 H Performed by cer tified plastics spreading machine operator at [facility]2019-04-11 20:57:00* Test Item Value Reference Range Interpretation Comme nts GLUBED (test code = GLUBED) 158 mg/dL 70-105 H Performed by cer tified plastics spreading machine operator at [facility]2019-04-11 16:41:00* Test Item Value Reference Range Interpretation Comme nts GLUBED (test code = GLUBED) 136 mg/dL 70-105 H Performed by cer tified plastics spreading machine operator at [facility]2019-04-11 11:35:00* Test Item Value Reference Range Interpretation Comme nts GLUBED (test code = GLUBED) 192 mg/dL 70-105 H Performed by cer tified plastics spreading machine operator at [facility]2019-04-11 07:44:00* Test Item Value Reference Range Interpretation Comme nts GLUBED (test code = GLUBED) 145 mg/dL 70-105 H Performed by cer tified plastics spreading machine operator at [facility] [id number] 21:40:00* Test Item Value Reference Range Interpretation Comme nts GLUBED (test code = GLUBED) 159 mg/dL 70-105 H Performed by cer tified plastics spreading machine operator at [facility] [id number] 16:47:00* Test Item Value Reference Range Interpretation Comme nts GLUBED (test code = GLUBED) 169 mg/dL 70-105 H Performed by cer tified plastics spreading machine operator at [facility]2019-04-10 11:49:00* Test Item Value Reference Range Interpretation Comme nts GLUBED (test code = GLUBED) 137 mg/dL 70-105 H Performed by cer tified plastics spreading machine operator at [facility] - CT ABD PELVIS W/O [id number] 15:41:00Name: DANIELLE MARTINEZ [facility] : 1950 Age/S: 68 / F [address] [facility] Unit #: [id number] Loc: [place], [place] [address] Phys: Yonatan Swain Jr, MD Acct: [id number] Dis Date: Status: REG ER PHONE #: [phone] Exam Date: 02/02/2019 1449 FAX #: [phone] Reason: ABD APIN EXAMS: CPT CODE: [id number] CT ABD PELVIS W/O CONT 95036 - CT ABD PELVIS W/O CONT CLINICAL [...] contains hyperdense material in the dependent portion, suggestiveof sludge. The left kidney appears mildly atrophic. [...] adjacent PAGE 1 Signed Report (CONTINUED) [facility] 1950 Age[facility]S: 68 / F [address] [facility] Unit #: [id number] Loc: [place] [address] Phys: Yonatan Swain Jr, MD Acct: [id number] Dis Date: Status: REG ER PHONE #: [phone] Exam Date: 02/02/2019 1449 FAX #: [phone] Reason: ABD APIN EXAMS: CPT CODE: [id number] CT ABD PELVIS W/O CONT 93741 (Continued) calcifications (series 300, image #[id number]; [...] above. PAGE 2 Signed Report (CONTINUED) [facility]: [facility] 1950 Age/S: 68 / F [address] [facility] Unit #: [id number] Loc: [place], [place] [address]Zbsp: Yonatan Swain Jr, MD Acct: [id number] Dis Date: Status: REG ER PHONE #: [phone] Exam Date: 02/02/2019 1449 FAX #: [phone] Reason: ABD APIN EXAMS: CPT CODE: [id number] CT ABD PELVISW/O CONT 78980 (Continued) at 1541 Reported and signed by: Liz Rutledge MD CC: Reagan Hirsch Technologist:Yared Castle RT (R) CT (R) CTDI: 10.54 DLP: 573.56 Trnscb Date/Time: 02/02/2019 (1541) [id number] Orig Print D/T: S: 02/02/2019 (1544) CTDI: 10.54 DLP: 573.56 PAGE 3 Signed ReportURINALYSIS W REFLEX [id number] 15:22:00* Test Item Value Reference Range Interpretation [...] MUCU) 2+ /hpf NEG,FEW A B-TYPE NATRIURETIC [id number] 15:02:00* Test Item Value Reference Range Interpretation Comme nts B-TYPE NATRIURETIC PEPTIDE ( test code = BNP) 34.8 PG/ML 0-100 N BASIC METABOLIC [id number] 14:51:00* Test Item Value Reference Range Interpretation [...] > or = 60 ml/min/1.73M2IF PATIENT IS -CITIZ[place] OF [place], MULTIPLY REPORTED RESULT BY1.21. CREATININE (test code = CREAT) 0.70 mg/dL 0.51-0.95 N CALCIUM (test code = CA) 9.2 mg/dL 8.5-10.1 N [id number] 14:51:00* Test Item Value Reference Range Interpretation Comme nts LIPASE (test code = LIP) 44 U/L 73-393 L [id number] 14:51:00* Test Item Value Reference Range Interpretation Comme nts TROPONIN-I (test code = TROPI) <0.015 ng/ml 0.00-0.045 N GUIDELINES: 0.08 - 0.09 Indeterminate0.10 Risk Stratification Limit: Suggest sequential testing0.60 - 1.50 AMI cutoff: Myocardial Injury by WHO criteria BASIC METABOLIC [id number] 14:49:00* Test Item Value Reference Range Interpretation Comme [facility] SODIUM (test code = NA) 139 mmol/L [...] > or = 60 ml/min/1.73M2IF PATIENT IS -[place]IZ[place], MULTIPLY REPORTED RESULT BY1.21. CREATININE (test code = CREAT) 0.70 mg/dL 0.51-0.95 N CALCIUM (test code = CA) 9.2 mg/dL 8.5-10.1 N [id number] 14:49:00* Test Item Value Reference Range Interpretation Comme [facility] LIPASE (test code = LIP) 44 U/L 73-393 L [id number] 14:49:00* Test Item Value Reference Range [facility]ation [facility] TROPONIN-I (test code = TROPI) ng/ml 0.00-0.045 PROTHROMBIN [id number] 14:48:00* Test Item Value Reference Range Interpretation [...] patients with mechanicalprosthetic heart valves. THROMBOPLASTIN TIME [id number] 14:48:00* Test Item Value Reference Range Interpretation Comme nts THROMBOPLASTIN TIME PARTIAL (test code = PTT) 34.5 seconds 22.8-34.4 H CBC W/AUTO [id number] 14:33:00* Test Item Value Reference Range Interpretation Comme nts WHITE BLOOD CELL (test code = WBC) [...] K/mm3 0.0-0.1 N - XR CHEST 1 [id number] 14:25:00[facility] Name: DANIELLE MARTINEZ [address] [place] [address] Phys: SwainYonatan Eren [place] [address] : 1950 Age: 68 Sex: F Acct: [id number] Loc: DAVID PHONE #: [phone] Exam Date: 02/02/2019 Status: PRE ER FAX #: [phone] Radiology No: Unit No: [id number] Reason: chest pain EXAMS: CPT CODE: [id number] XR CHEST 1 V [id number] Fluoro Time: DAP (Gy m2): Air Kerma(mGy): EXAM: - XR CHEST 1 V LOCATION: C3 HISTORY: chest pain COMPARISON: None available time of inte rpretation. FINDINGS: Single view of the chest. No indwelling lines or tubes. No pneumothorax. The lungs are clear. No pleural effusions are present. The mediastinal contours are unremarkable. No acute osseous findings are present. IMPRESSION: No acute cardiopulmonary abnormality. ElectronicallySigned by PRETTY SHARPE M.D. on 02/02/2019 at 1420 Reported and signed by: PRETTY SHARPE M.D. CC: Reagan Hirsch Technologist: Remy Barrios RT (R) Transcribed Date/Time: 02/02/2019 (3968) HumeraHV2 Orig Print D/T: S: 02/02/2019 (9853) PAGE 1 Signed ReportLIPID [id number] 00:00:00* Test Item Value Reference Range Interpretation Comme nts CHOLESTEROL (test code = 2210) 195 MG/DL TRIGLYCERIDES (test code = 2232) 241 MG/DL HDL CHOLESTEROL (test code = 2220) 44 MG/DL CALC LDL CHOL (test code = 2237) 103 MG/DL RISK RATIO LDL/HDL (test cod e = 2238) 2.34 RATIO Toney RennerCOMPREHENSIVE METABOLIC [id number] 00:00:00* Test Item Value Reference Range Interpretation Comme nts GLUCOSE (test code = 2217) 138 MG/DL BUN (test code = 2208) 21 MG/DL CREATININE (test code = 2214) 0.59 MG/DL eGFR AMER. (test cod e = 30887) 110 ML/MIN/1.73 eGFR NON- AMER. (test code = 52035) 95 ML/MIN/1.73 CALC BUN/CREAT (test code = [...] (test code = 2219) 14 U/L Toney RennerHEMOGLOBIN [id number] 00:00:00* Test Item Value Reference Range Interpretation Comme nts HEMOGLOBIN A1c (test code = 39947) 6.4 % Toney Cowan AustinHEMOGLOBIN [id number] 00:00:00* Test Item Value Reference Range Interpretation Comme nts HEMOGLOBIN A1c (test code = 18522) 6.4 % Toney RennerLIPID [id number] 00:00:00* Test Item Value Reference Range Interpretation Comme nts CHOLESTEROL (test code = 2210) 195 MG/DL TRIGLYCERIDES (test code = 2232) 241 MG/DL HDL CHOLESTEROL (test code = 2220) 44 MG/DL CALC LDL CHOL (test code = 2237) 103 MG/DL RISK RATIO LDL/HDL (test cod e = 2238) 2.34 RATIO Toney RennerCOMPREHENSIVE METABOLIC [id number] 00:00:00* Test Item Value Reference Range Interpretation Comme nts GLUCOSE (test code = 2217) 138 MG/DL BUN (test code = 2208) 21 MG/DL CREATININE (test code = 2214) 0.59 MG/DL eGFR AMER. (test cod e = 01809) 110 ML/MIN/1.73 eGFR NON- AMER. (test code = 54215) 95 ML/MIN/1.73 CALC BUN/CREAT (test code = [...] (test code = 2219) 14 U/L Toney RennerHEMOGLOBIN [id number] 00:00:00* Test Item Value Reference Range Interpretation Comme nts HEMOGLOBIN A1c (test code = 64141) 6.4 % LIPID [id number] 00:00:00* Test Item Value Reference Range Interpretation Comme nts CHOLESTEROL (test code = 2210) 195 MG/DL TRIGLYCERIDES (test code = 2232) 241 MG/DL HDL CHOLESTEROL (test code = 2220) 44 MG/DL CALC LDL CHOL (test code = 2237) 103 MG/DL RISK RATIO LDL/HDL (test cod e = 2238) 2.34 RATIO COMPREHENSIVE METABOLIC [id number] 00:00:00* Test Item Value Reference Range Interpretation Comme nts GLUCOSE (test code = 2217) 138 MG/DL BUN (test code = 2207) 21 MG/DL CREATININE (test code = 2214) 0.59 MG/DL eGFR AMER. (test cod e = 56136) 110 ML/MIN/1.73 eGFR NON- AMER. (test code = 52116) 95 ML/MIN/1.73 CALC BUN/CREAT (test code = 2235) 36 RATIO SODIUM (test code = 2231) 145 MEQ/L POTASSIUM (test code = 2228) 4.0 MEQ/L CHLORIDE (test code = 2215) 105 MEQ/L CARBON DIOXIDE (test code = 2206) 26 MEQ/L CALCIUM (test code = 2209) 9.7 MG/DL PROTEIN, TOTAL (test code = 2228) 7.2 G/DL ALBUMIN (test code = 220) 4.2 G/DL CALC GLOBULIN (test code = 2240) 3.0 G/DL CALC A/G RATIO (test code = 2234) 1.4 RATIO BILIRUBIN, TOTAL (test code = 2206) <0.2 MG/DL ALKALINE PHOSPHATASE (test code = 2203) 88 U/L AST (test code = 2218) 16 U/L ALT (test code = 2219) 14 U/L HEMOGLOBIN [id number] 00:00:00* Test Item Value Reference Range Interpretation Comme nts HEMOGLOBIN A1c (test code = 39010) 6.4 % LIPID [id number] 00:00:00* Test Item Value Reference Range Interpretation Comme nts CHOLESTEROL (test code = 2210) 195 MG/DL TRIGLYCERIDES (test code = 2232) 241 MG/DL HDL CHOLESTEROL (test code = 2220) 44 MG/DL CALC LDL CHOL (test code = 2237) 103 MG/DL RISK RATIO LDL/HDL (test cod e = 2238) 2.34 RATIO COMPREHENSIVE METABOLIC [id number] 00:00:00* Test Item Value Reference Range Interpretation Comme nts GLUCOSE (test code = 2216) 138 MG/DL BUN (test code = 2207) 21 MG/DL CREATININE (test code = 2214) 0.59 MG/DL eGFR AMER. (test cod e = 51901) 110 ML/MIN/1.73 eGFR NON- AMER. (test code = 37241) 95 ML/MIN/1.73 CALC BUN/CREAT (test code = 2235) 36 RATIO SODIUM (test code = 223) 145 MEQ/L POTASSIUM (test code = 2228) [...] 1.4 RATIO BILIRUBIN, TOTAL (test code = 2206) <0.2 MG/DL ALKALINE PHOSPHATASE (test code = 2203) 88 U/L AST (test code = 2217) 16 U/L ALT (test code = 2219) 14 U/L HEMOGLOBIN [id number] 00:00:00* Test Item Value Reference Range Interpretation Comme nts HEMOGLOBIN A1c (test code = 83660) 6.4 % LIPID [id number] 00:00:00* Test Item Value Reference Range Interpretation Comme nts CHOLESTEROL (test code = 2210) 195 MG/DL TRIGLYCERIDES (test code = 2232) 241 MG/DL HDL CHOLESTEROL (test code = 0) 44 MG/DL CALC LDL CHOL (test code = 7) 103 MG/DL RISK RATIO LDL/HDL (test cod e = 2238) 2.34 RATIO COMPREHENSIVE METABOLIC [id number] 00:00:00* Test Item Value Reference Range Interpretation Comme nts GLUCOSE (test code = 2217) 138 MG/DL BUN (test code = 2207) 21 MG/DL CREATININE (test code = 2214) 0.59 MG/DL eGFR AMER. (test cod e = 30345) 110 ML/MIN/1.73 eGFR NON- AMER. (test code = 17884) 95 ML/MIN/1.73 CALC BUN/CREAT (test code = [...] (test code = 2219) 14 U/L HEMOGLOBIN [id number] 00:00:00* Test Item Value Reference Range Interpretation Comme nts HEMOGLOBIN A1c (test code = 40900) 6.4 % LIPID [id number] 00:00:00* Test Item Value Reference Range Interpretation Comme nts CHOLESTEROL (test code = 2210) 195 MG/DL TRIGLYCERIDES (test code = 2232) 241 MG/DL HDL CHOLESTEROL (test code = 2220) 44 MG/DL CALC LDL CHOL (test code = 2236) 103 MG/DL RISK RATIO LDL/HDL (test cod e = 2238) 2.34 RATIO HEMOGLOBIN [id number] 00:00:00* Test Item Value Reference Range Interpretation Comme nts HEMOGLOBIN A1c (test code = 80354) 6.4 % COMPREHENSIVE METABOLIC [id number] 00:00:00* Test Item Value Reference Range Interpretation Comme nts GLUCOSE (test code = 2217) 138 MG/DL BUN (test code = 8) 21 MG/DL CREATININE (test code = 2214) 0.59 MG/DL eGFR AMER. (test cod e = 72354) 110 ML/MIN/1.73 eGFR NON- AMER. (test code = 93587) 95 ML/MIN/1.73 CALC BUN/CREAT (test code = [...] (test code = 2219) 14 U/L LIPID [id number] 00:00:00* Test Item Value Reference Range Interpretation Comme nts CHOLESTEROL (test code = 2210) 195 MG/DL TRIGLYCERIDES (test code = 2232) 241 MG/DL HDL CHOLESTEROL (test code = 2220) 44 MG/DL CALC LDL CHOL (test code = 2237) 103 MG/DL RISK RATIO LDL/HDL (test cod e = 2238) 2.34 RATIO COMPREHENSIVE METABOLIC [id number] 00:00:00* Test Item Value Reference Range Interpretation Comme nts GLUCOSE (test code = 2217) 138 MG/DL BUN (test code = 2208) 21 MG/DL CREATININE (test code = 2214) 0.59 MG/DL eGFR AMER. (test cod e = 03548) 110 ML/MIN/1.73 eGFR NON- AMER. (test code = 82475) 95 ML/MIN/1.73 CALC BUN/CREAT (test code = [...] (test code = 2219) 14 U/L HEMOGLOBIN [id number] 00:00:00* Test Item Value Reference Range Interpretation Comme nts HEMOGLOBIN A1c (test code = 30930) 6.4 % LIPID [id number] 00:00:00* Test Item Value Reference Range Interpretation Comme nts CHOLESTEROL (test code = 2210) 195 MG/DL TRIGLYCERIDES (test code = 2232) 241 MG/DL HDL CHOLESTEROL (test code = 2220) 44 MG/DL CALC LDL CHOL (test code = 2237) 103 MG/DL RISK RATIO LDL/HDL (test cod e = 2238) 2.34 RATIO COMPREHENSIVE METABOLIC [id number] 00:00:00* Test Item Value Reference Range Interpretation Comme nts GLUCOSE (test code = 2217) 138 MG/DL BUN (test code = 2208) 21 MG/DL CREATININE (test code = 2214) 0.59 MG/DL eGFR AMER. (test cod e = 41523) 110 ML/MIN/1.73 eGFR NON- AMER. (test code = 38367) 95 ML/MIN/1.73 CALC BUN/CREAT (test code = [...] (test code = 2219) 14 U/L HEMOGLOBIN [id number] 00:00:00* Test Item Value Reference Range Interpretation Comme nts HEMOGLOBIN A1c (test code = 02278) 6.4 % LIPID [id number] 00:00:00* Test Item Value Reference Range Interpretation Comme nts CHOLESTEROL (test code = 2210) 195 MG/DL TRIGLYCERIDES (test code = 2232) 241 MG/DL HDL CHOLESTEROL (test code = 2220) 44 MG/DL CALC LDL CHOL (test code = 2237) 103 MG/DL RISK RATIO LDL/HDL (test cod e = 2238) 2.34 RATIO COMPREHENSIVE METABOLIC [id number] 00:00:00* Test Item Value Reference Range Interpretation Comme nts GLUCOSE (test code = 2217) 138 MG/DL BUN (test code = 2208) 21 MG/DL CREATININE (test code = 2214) 0.59 MG/DL eGFR AMER. (test cod e = 00896) 110 ML/MIN/1.73 eGFR NON- AMER. (test code = 32165) 95 ML/MIN/1.73 CALC BUN/CREAT (test code = [...] (test code = 2219) 14 U/L HEMOGLOBIN [id number] 00:00:00* Test Item Value Reference Range Interpretation Comme nts HEMOGLOBIN A1c (test code = 74987) 6.4 % LIPID [id number] 00:00:00* Test Item Value Reference Range Interpretation Comme nts CHOLESTEROL (test code = 2210) 195 MG/DL TRIGLYCERIDES (test code = 2232) 241 MG/DL HDL CHOLESTEROL (test code = 2220) 44 MG/DL CALC LDL CHOL (test code = 2237) 103 MG/DL RISK RATIO LDL/HDL (test cod e = 2238) 2.34 RATIO COMPREHENSIVE METABOLIC [id number] 00:00:00* Test Item Value Reference Range Interpretation Comme nts GLUCOSE (test code = 2217) 138 MG/DL BUN (test code = 2208) 21 MG/DL CREATININE (test code = 2214) 0.59 MG/DL eGFR AMER. (test cod e = 50725) 110 ML/MIN/1.73 eGFR NON- AMER. (test code = 35437) 95 ML/MIN/1.73 CALC BUN/CREAT (test code = [...] (test code = 2219) 14 U/L HEMOGLOBIN [id number] 00:00:00* Test Item Value Reference Range Interpretation Comme nts HEMOGLOBIN A1c (test code = 01169) 6.4 % LIPID [id number] 00:00:00* Test Item Value Reference Range Interpretation Comme nts CHOLESTEROL (test code = 2210) 195 MG/DL TRIGLYCERIDES (test code = 2232) 241 MG/DL HDL CHOLESTEROL (test code = 2220) 44 MG/DL CALC LDL CHOL (test code = 2237) 103 MG/DL RISK RATIO LDL/HDL (test cod e = 2238) 2.34 RATIO COMPREHENSIVE METABOLIC [id number] 00:00:00* Test Item Value Reference Range Interpretation Comme nts GLUCOSE (test code = 2217) 138 MG/DL BUN (test code = 2208) 21 MG/DL CREATININE (test code = 2214) 0.59 MG/DL eGFR AMER. (test cod e = 40205) 110 ML/MIN/1.73 eGFR NON- AMER. (test code = 66467) 95 ML/MIN/1.73 CALC BUN/CREAT (test code = [...] 2204) 88 U/L AST (test code = 221) 16 U/L ALT (test code = 2219) 14 U/L LIPID [id number] 00:00:00* Test Item Value Reference Range Interpretation Comme nts CHOLESTEROL (test code = 2210) 195 MG/DL TRIGLYCERIDES (test code = 2232) 241 MG/DL HDL CHOLESTEROL (test code = 2220) 44 MG/DL CALC LDL CHOL (test code = 2237) 103 MG/DL RISK RATIO LDL/HDL (test cod e = 2238) 2.34 RATIO Toney F AustinCOMPREHENSIVE METABOLIC [id number] 00:00:00* Test Item Value Reference Range Interpretation Comme nts GLUCOSE (test code = 2217) 138 MG/DL BUN (test code = 2208) 21 MG/DL CREATININE (test code = 2214) 0.59 MG/DL eGFR AMER. (test cod e = 69504) 110 ML/MIN/1.73 eGFR NON- AMER. (test code = 89855) 95 ML/MIN/1.73 CALC BUN/CREAT (test code = [...] (test code = 2219) 14 U/L Toney RennerHEMOGLOBIN [id number] 00:00:00* Test Item Value Reference Range Interpretation Comme [facility] HEMOGLOBIN A1c (test code = 45836) 6.4 % Toney RennerLIPID [id number] 00:00:00* Test Item Value Reference Range Interpretation Comme nts CHOLESTEROL (test code = 2210) 195 MG/DL TRIGLYCERIDES (test code = 2232) 241 MG/DL HDL CHOLESTEROL (test code = 2220) 44 MG/DL CALC LDL CHOL (test code = 2237) 103 MG/DL RISK RATIO LDL/HDL (test cod e = 2238) 2.34 RATIO Toney RennerCOMPREHENSIVE METABOLIC [id number] 00:00:00* Test Item Value Reference Range Interpretation Comme nts GLUCOSE (test code = 2217) 138 MG/DL BUN (test code = 2208) 21 MG/DL CREATININE (test code = 2214) 0.59 MG/DL eGFR AMER. (test cod e = 54240) 110 ML/MIN/1.73 eGFR NON- AMER. (test code = 36022) 95 ML/MIN/1.73 CALC BUN/CREAT (test code = [...] (test code = 2219) 14 U/L Toney RennerHEMOGLOBIN [id number] 00:00:00* Test Item Value Reference Range Interpretation Comme [facility] HEMOGLOBIN A1c (test code = 71678) 6.4 % Toney RennerLIPID [id number] 00:00:00* Test Item Value Reference Range Interpretation Comme nts CHOLESTEROL (test code = 2210) 195 MG/DL TRIGLYCERIDES (test code = 2232) 241 MG/DL HDL CHOLESTEROL (test code = 2220) 44 MG/DL CALC LDL CHOL (test code = 2237) 103 MG/DL RISK RATIO LDL/HDL (test cod e = 2238) 2.34 RATIO Toney RennerCOMPREHENSIVE METABOLIC [id number] 00:00:00* Test Item Value Reference Range Interpretation Comme nts GLUCOSE (test code = 2217) 138 MG/DL BUN (test code = 2208) 21 MG/DL CREATININE (test code = 2214) 0.59 MG/DL eGFR AMER. (test cod e = 40537) 110 ML/MIN/1.73 eGFR NON- AMER. (test code = 56856) 95 ML/MIN/1.73 CALC BUN/CREAT (test code = [...] (test code = 2219) 14 U/L Toney RennerHEMOGLOBIN [id number] 00:00:00* Test Item Value Reference Range Interpretation Comme kat[facility] HEMOGLOBIN A1c (test code = 31457) 6.4 % Toney Cowan AustinLIPID [id number] 00:00:00* Test Item Value Reference Range Interpretation Comme nts CHOLESTEROL (test code = 2210) 195 MG/DL TRIGLYCERIDES (test code = 2232) 241 MG/DL HDL CHOLESTEROL (test code = 2220) 44 MG/DL CALC LDL CHOL (test code = 2237) 103 MG/DL RISK RATIO LDL/HDL (test cod e = 2238) 2.34 RATIO Toney RennerCOMPREHENSIVE METABOLIC [id number] 00:00:00* Test Item Value Reference Range Interpretation Comme nts GLUCOSE (test code = 2217) 138 MG/DL BUN (test code = 2208) 21 MG/DL CREATININE (test code = 2214) 0.59 MG/DL eGFR AMER. (test cod e = 82795) 110 ML/MIN/1.73 eGFR NON- AMER. (test code = 90345) 95 ML/MIN/1.73 CALC BUN/CREAT (test code = [...] (test code = 2219) 14 U/L Toney RennerHEMOGLOBIN [id number] 00:00:00* Test Item Value Reference Range Interpretation Comme nts HEMOGLOBIN A1c (test code = 37526) 6.4 % Toney RennerHEMOGLOBIN [id number] 00:00:00* Test Item Value Reference Range Interpretation Comme nts HEMOGLOBIN A1c (test code = 87955) 8.3 % Toney Cowan AustinCOMPREHENSIVE METABOLIC [id number] 00:00:00* Test Item Value Reference Range Interpretation Comme nts GLUCOSE (test code = 2217) 131 MG/DL BUN (test code = 2208) 16 MG/DL CREATININE (test code = 2214) 0.51 MG/DL eGFR AMER. (test cod e = 08040) 116 ML/MIN/1.73 eGFR NON- AMER. (test code = 67839) 100 ML/MIN/1.73 CALC BUN/CREAT (test code = [...] (test code = 2219) 27 U/L Toney RennerLIPID [id number] 00:00:00* Test Item Value Reference Range Interpretation Comme nts CHOLESTEROL (test code = 2210) 204 MG/DL TRIGLYCERIDES (test code = 2232) 121 MG/DL HDL CHOLESTEROL (test code = 2220) 50 MG/DL CALC LDL CHOL (test code = 2237) 130 MG/DL RISK RATIO LDL/HDL (test cod e = 2238) 2.60 RATIO Toney RennerHEMOGLOBIN [id number] 00:00:00* Test Item Value Reference Range Interpretation Comme nts HEMOGLOBIN A1c (test code = 76737) 8.3 % Toney RennerCOMPREHENSIVE METABOLIC [id number] 00:00:00* Test Item Value Reference Range Interpretation Comme nts GLUCOSE (test code = 2217) 131 MG/DL BUN (test code = 2208) 16 MG/DL CREATININE (test code = 2214) 0.51 MG/DL eGFR AMER. (test cod e = 95526) 116 ML/MIN/1.73 eGFR NON- AMER. (test code = 12309) 100 ML/MIN/1.73 CALC BUN/CREAT (test code = [...] (test code = 2219) 27 U/L Toney RennerLIPID [id number] 00:00:00* Test Item Value Reference Range Interpretation Comme nts CHOLESTEROL (test code = 2210) 204 MG/DL TRIGLYCERIDES (test code = 2232) 121 MG/DL HDL CHOLESTEROL (test code = 2220) 50 MG/DL CALC LDL CHOL (test code = 2237) 130 MG/DL RISK RATIO LDL/HDL (test cod e = 2238) 2.60 RATIO Toney Cowan ZurdoHEMOGLOBIN [id number] 00:00:00* Test Item Value Reference Range Interpretation Comme nts HEMOGLOBIN A1c (test code = 02471) 8.3 % COMPREHENSIVE METABOLIC [id number] 00:00:00* Test Item Value Reference Range Interpretation Comme nts GLUCOSE (test code = 2217) 131 MG/DL BUN (test code = 2208) 16 MG/DL CREATININE (test code = 2214) 0.51 MG/DL eGFR AMER. (test cod e = 74838) 116 ML/MIN/1.73 eGFR NON- AMER. (test code = 62325) 100 ML/MIN/1.73 CALC BUN/CREAT (test code = [...] 2204) 83 U/L AST (test code = 221) 23 U/L ALT (test code = 2219) 27 U/L LIPID [id number] 00:00:00* Test Item Value Reference Range Interpretation Comme nts CHOLESTEROL (test code = 2210) 204 MG/DL TRIGLYCERIDES (test code = 2232) 121 MG/DL HDL CHOLESTEROL (test code = 2220) 50 MG/DL CALC LDL CHOL (test code = 2237) 130 MG/DL RISK RATIO LDL/HDL (test cod e = 2238) 2.60 RATIO HEMOGLOBIN [id number] 00:00:00* Test Item Value Reference Range Interpretation Comme nts HEMOGLOBIN A1c (test code = 60809) 8.3 % COMPREHENSIVE METABOLIC [id number] 00:00:00* Test Item Value Reference Range Interpretation Comme nts GLUCOSE (test code = 2217) 131 MG/DL BUN (test code = 8) 16 MG/DL CREATININE (test code = 2214) 0.51 MG/DL eGFR AMER. (test cod e = 25987) 116 ML/MIN/1.73 eGFR NON- AMER. (test code = 19902) 100 ML/MIN/1.73 CALC BUN/CREAT (test code = [...] (test code = 2219) 27 U/L LIPID [id number] 00:00:00* Test Item Value Reference Range Interpretation Comme nts CHOLESTEROL (test code = 2210) 204 MG/DL TRIGLYCERIDES (test code = 2232) 121 MG/DL HDL CHOLESTEROL (test code = 2220) 50 MG/DL CALC LDL CHOL (test code = 2237) 130 MG/DL RISK RATIO LDL/HDL (test cod e = 2238) 2.60 RATIO HEMOGLOBIN [id number] 00:00:00* Test Item Value Reference Range Interpretation Comme nts HEMOGLOBIN A1c (test code = 16209) 8.3 % COMPREHENSIVE METABOLIC [id number] 00:00:00* Test Item Value Reference Range Interpretation Comme nts GLUCOSE (test code = 2217) 131 MG/DL BUN (test code = 2208) 16 MG/DL CREATININE (test code = 2214) 0.51 MG/DL eGFR AMER. (test cod e = 78997) 116 ML/MIN/1.73 eGFR NON- AMER. (test code = 28628) 100 ML/MIN/1.73 CALC BUN/CREAT (test code = [...] (test code = 2219) 27 U/L LIPID [id number] 00:00:00* Test Item Value Reference Range Interpretation Comme nts CHOLESTEROL (test code = 2210) 204 MG/DL TRIGLYCERIDES (test code = 2232) 121 MG/DL HDL CHOLESTEROL (test code = 2220) 50 MG/DL CALC LDL CHOL (test code = 2237) 130 MG/DL RISK RATIO LDL/HDL (test cod e = 2238) 2.60 RATIO HEMOGLOBIN [id number] 00:00:00* Test Item Value Reference Range Interpretation Comme nts HEMOGLOBIN A1c (test code = 79447) 8.3 % HEMOGLOBIN [id number] 00:00:00* Test Item Value Reference Range Interpretation Comme nts HEMOGLOBIN A1c (test code = 54845) 8.3 % COMPREHENSIVE METABOLIC [id number] 00:00:00* Test Item Value Reference Range Interpretation Comme nts GLUCOSE (test code = 2217) 131 MG/DL BUN (test code = 2208) 16 MG/DL CREATININE (test code = 2214) 0.51 MG/DL eGFR AMER. (test cod e = 03714) 116 ML/MIN/1.73 eGFR NON- AMER. (test code = 20214) 100 ML/MIN/1.73 CALC BUN/CREAT (test code = [...] (test code = 2219) 27 U/L LIPID [id number] 00:00:00* Test Item Value Reference Range Interpretation Comme nts CHOLESTEROL (test code = 2210) 204 MG/DL TRIGLYCERIDES (test code = 2232) 121 MG/DL HDL CHOLESTEROL (test code = 2220) 50 MG/DL CALC LDL CHOL (test code = 2237) 130 MG/DL RISK RATIO LDL/HDL (test cod e = 2238) 2.60 RATIO COMPREHENSIVE METABOLIC [id number] 00:00:00* Test Item Value Reference Range Interpretation Comme nts GLUCOSE (test code = 2217) 131 MG/DL BUN (test code = 2208) 16 MG/DL CREATININE (test code = 2214) 0.51 MG/DL eGFR AMER. (test cod e = 68010) 116 ML/MIN/1.73 eGFR NON- AMER. (test code = 91976) 100 ML/MIN/1.73 CALC BUN/CREAT (test code = [...] (test code = 2219) 27 U/L HEMOGLOBIN [id number] 00:00:00* Test Item Value Reference Range Interpretation Comme nts HEMOGLOBIN A1c (test code = 36527) 8.3 % LIPID [id number] 00:00:00* Test Item Value Reference Range Interpretation Comme nts CHOLESTEROL (test code = 2210) 204 MG/DL TRIGLYCERIDES (test code = 2232) 121 MG/DL HDL CHOLESTEROL (test code = 2220) 50 MG/DL CALC LDL CHOL (test code = 2237) 130 MG/DL RISK RATIO LDL/HDL (test cod e = 2238) 2.60 RATIO COMPREHENSIVE METABOLIC [id number] 00:00:00* Test Item Value Reference Range Interpretation Comme nts GLUCOSE (test code = 2217) 131 MG/DL BUN (test code = 2208) 16 MG/DL CREATININE (test code = 2214) 0.51 MG/DL eGFR AMER. (test cod e = 82839) 116 ML/MIN/1.73 eGFR NON- AMER. (test code = 33435) 100 ML/MIN/1.73 CALC BUN/CREAT (test code = [...] (test code = 2219) 27 U/L LIPID [id number] 00:00:00* Test Item Value Reference Range Interpretation Comme nts CHOLESTEROL (test code = 2210) 204 MG/DL TRIGLYCERIDES (test code = 2232) 121 MG/DL HDL CHOLESTEROL (test code = 2220) 50 MG/DL CALC LDL CHOL (test code = 2237) 130 MG/DL RISK RATIO LDL/HDL (test cod e = 2238) 2.60 RATIO HEMOGLOBIN [id number] 00:00:00* Test Item Value Reference Range Interpretation Comme nts HEMOGLOBIN A1c (test code = 85231) 8.3 % COMPREHENSIVE METABOLIC [id number] 00:00:00* Test Item Value Reference Range Interpretation Comme nts GLUCOSE (test code = 2217) 131 MG/DL BUN (test code = 2208) 16 MG/DL CREATININE (test code = 2214) 0.51 MG/DL eGFR AMER. (test cod e = 96993) 116 ML/MIN/1.73 eGFR NON- AMER. (test code = 60302) 100 ML/MIN/1.73 CALC BUN/CREAT (test code = [...] (test code = 2219) 27 U/L LIPID [id number] 00:00:00* Test Item Value Reference Range Interpretation Comme nts CHOLESTEROL (test code = 2210) 204 MG/DL TRIGLYCERIDES (test code = 2232) 121 MG/DL HDL CHOLESTEROL (test code = 2220) 50 MG/DL CALC LDL CHOL (test code = 2237) 130 MG/DL RISK RATIO LDL/HDL (test cod e = 2238) 2.60 RATIO HEMOGLOBIN [id number] 00:00:00* Test Item Value Reference Range Interpretation Comme nts HEMOGLOBIN A1c (test code = 56230) 8.3 % COMPREHENSIVE METABOLIC [id number] 00:00:00* Test Item Value Reference Range Interpretation Comme nts GLUCOSE (test code = 2217) 131 MG/DL BUN (test code = 2208) 16 MG/DL CREATININE (test code = 2214) 0.51 MG/DL eGFR AMER. (test cod e = 63166) 116 ML/MIN/1.73 eGFR NON- AMER. (test code = 66687) 100 ML/MIN/1.73 CALC BUN/CREAT (test code = [...] (test code = 2219) 27 U/L LIPID [id number] 00:00:00* Test Item Value Reference Range Interpretation Comme nts CHOLESTEROL (test code = 2210) 204 MG/DL TRIGLYCERIDES (test code = 2232) 121 MG/DL HDL CHOLESTEROL (test code = 2220) 50 MG/DL CALC LDL CHOL (test code = 223) 130 MG/DL RISK RATIO LDL/HDL (test cod e = 223) 2.60 RATIO HEMOGLOBIN [id number] 00:00:00* Test Item Value Reference Range Interpretation Comme nts HEMOGLOBIN A1c (test code = 63395) 8.3 % COMPREHENSIVE METABOLIC [id number] 00:00:00* Test Item Value Reference Range Interpretation Comme nts GLUCOSE (test code = 2217) 131 MG/DL BUN (test code = 8) 16 MG/DL CREATININE (test code = 2214) 0.51 MG/DL eGFR AMER. (test cod e = 47689) 116 ML/MIN/1.73 eGFR NON- AMER. (test code = 74471) 100 ML/MIN/1.73 CALC BUN/CREAT (test code = 2235) 31 RATIO SODIUM (test code = 2231) 143 MEQ/L POTASSIUM (test code = 2228) 4.0 MEQ/L CHLORIDE (test code = 2215) 103 MEQ/L CARBON DIOXIDE (test code = 6) 27 MEQ/L CALCIUM (test code = 2209) [...] (test code = 2219) 27 U/L LIPID [id number] 00:00:00* Test Item Value Reference Range Interpretation Comme nts CHOLESTEROL (test code = 2210) 204 MG/DL TRIGLYCERIDES (test code = 2232) 121 MG/DL HDL CHOLESTEROL (test code = 2220) 50 MG/DL CALC LDL CHOL (test code = 2237) 130 MG/DL RISK RATIO LDL/HDL (test cod e = 2238) 2.60 RATIO HEMOGLOBIN [id number] 00:00:00* Test Item Value Reference Range Interpretation Comme nts HEMOGLOBIN A1c (test code = 49295) 8.3 % Toney Cowan AustinCOMPREHENSIVE METABOLIC [id number] 00:00:00* Test Item Value Reference Range Interpretation Comme nts GLUCOSE (test code = 2217) 131 MG/DL BUN (test code = 2208) 16 MG/DL CREATININE (test code = 2214) 0.51 MG/DL eGFR AMER. (test cod e = 19344) 116 ML/MIN/1.73 eGFR NON- AMER. (test code = 60038) 100 ML/MIN/1.73 CALC BUN/CREAT (test code = [...] (test code = 2219) 27 U/L Toney RennerLIPID [id number] 00:00:00* Test Item Value Reference Range Interpretation Comme nts CHOLESTEROL (test code = 2210) 204 MG/DL TRIGLYCERIDES (test code = 2232) 121 MG/DL HDL CHOLESTEROL (test code = 2220) 50 MG/DL CALC LDL CHOL (test code = 2237) 130 MG/DL RISK RATIO LDL/HDL (test cod e = 2238) 2.60 RATIO Toney RennerHEMOGLOBIN [id number] 00:00:00* Test Item Value Reference Range Interpretation Comme nts HEMOGLOBIN A1c (test code = 66243) 8.3 % Toney RennerCOMPREHENSIVE METABOLIC [id number] 00:00:00* Test Item Value Reference Range Interpretation Comme nts GLUCOSE (test code = 2217) 131 MG/DL BUN (test code = 2208) 16 MG/DL CREATININE (test code = 2214) 0.51 MG/DL eGFR AMER. (test cod e = 42191) 116 ML/MIN/1.73 eGFR NON- AMER. (test code = 65183) 100 ML/MIN/1.73 CALC BUN/CREAT (test code = [...] (test code = 2219) 27 U/L Toney eRnnerLIPID [id number] 00:00:00* Test Item Value Reference Range Interpretation Comme nts CHOLESTEROL (test code = 2210) 204 MG/DL TRIGLYCERIDES (test code = 2232) 121 MG/DL HDL CHOLESTEROL (test code = 2220) 50 MG/DL CALC LDL CHOL (test code = 2237) 130 MG/DL RISK RATIO LDL/HDL (test cod e = 2238) 2.60 RATIO Toney RennerHEMOGLOBIN [id number] 00:00:00* Test Item Value Reference Range Interpretation Comme nts HEMOGLOBIN A1c (test code = 47193) 8.3 % Toney RennerCOMPREHENSIVE METABOLIC [id number] 00:00:00* Test Item Value Reference Range Interpretation Comme nts GLUCOSE (test code = 2217) 131 MG/DL BUN (test code = 2208) 16 MG/DL CREATININE (test code = 2214) 0.51 MG/DL eGFR AMER. (test cod e = 43790) 116 ML/MIN/1.73 eGFR NON- AMER. (test code = 30476) 100 ML/MIN/1.73 CALC BUN/CREAT (test code = [...] code = 2219) 27 U/L Toney Cowan AustinLIPID [id number] 00:00:00* Test Item Value Reference Range Interpretation Comme nts CHOLESTEROL (test code = 2210) 204 MG/DL TRIGLYCERIDES (test code = 2232) 121 MG/DL HDL CHOLESTEROL (test code = 2220) 50 MG/DL CALC LDL CHOL (test code = 2237) 130 MG/DL RISK RATIO LDL/HDL (test cod e = 2238) 2.60 RATIO Toney RennerHEMOGLOBIN [id number] 00:00:00* Test Item Value Reference Range Interpretation Comme nts HEMOGLOBIN A1c (test code = 95253) 8.3 % Toney RennerCOMPREHENSIVE METABOLIC [id number] 00:00:00* Test Item Value Reference Range Interpretation Comme nts GLUCOSE (test code = 2217) 131 MG/DL BUN (test code = 2208) 16 MG/DL CREATININE (test code = 2214) 0.51 MG/DL eGFR AMER. (test cod e = 25258) 116 ML/MIN/1.73 eGFR NON- AMER. (test code = 07821) 100 ML/MIN/1.73 CALC BUN/CREAT (test code = [...] (test code = 2219) 27 U/L Toney RennerLIPID [id number] 00:00:00* Test Item Value Reference Range Interpretation Comme nts CHOLESTEROL (test code = 2210) 204 MG/DL TRIGLYCERIDES (test code = 2232) 121 MG/DL HDL CHOLESTEROL (test code = 2220) 50 MG/DL CALC LDL CHOL (test code = 2237) 130 MG/DL RISK RATIO LDL/HDL (test cod e = 2238) 2.60 RATIO Toney Salinas, [id number] 00:00:00* Test Item Value Reference Range Interpretation Comme nts CULTURE, STOOL (test code = 78711) SPECIMEN NUMBER: [id number] Toney Salinas, [id number] 00:00:00* Test Item Value Reference Range Interpretation Comme nts CULTURE, STOOL (test code = 55244) SPECIMEN NUMBER: [id number] CULTURE, [id number] 00:00:00* Test Item Value Reference Range Interpretation Comme nts CULTURE, STOOL (test code = 49777) SPECIMEN NUMBER: [id number] CULTURE, [id number] 00:00:00* Test Item Value Reference Range Interpretation Comme nts CULTURE, STOOL (test code = 11034) SPECIMEN NUMBER: [id number] CULTURE, [id number] 00:00:00* Test Item Value Reference Range Interpretation Comme nts CULTURE, STOOL (test code = 52475) SPECIMEN NUMBER: [id number] CULTURE, [id number] 00:00:00* Test Item Value Reference Range Interpretation Comme nts CULTURE, STOOL (test code = 04055) SPECIMEN NUMBER: [id number] CULTURE, [id number] 00:00:00* Test Item Value Reference Range Interpretation Comme nts CULTURE, STOOL (test code = 06821) SPECIMEN NUMBER: [id number] CULTURE, [id number] 00:00:00* Test Item Value Reference Range Interpretation Comme nts CULTURE, STOOL (test code = 52458) SPECIMEN NUMBER: [id number] CULTURE, [id number] 00:00:00* Test Item Value Reference Range Interpretation Comme nts CULTURE, STOOL (test code = 28996) SPECIMEN NUMBER: [id number] CULTURE, [id number] 00:00:00* Test Item Value Reference Range Interpretation Comme nts CULTURE, STOOL (test code = 11035) SPECIMEN NUMBER: [id number] CULTURE, [id number] 00:00:00* Test Item Value Reference Range Interpretation Comme nts CULTURE, STOOL (test code = 31174) SPECIMEN NUMBER: [id number] Toney MarcusLTBG, [id number] 00:00:00* Test Item Value Reference Range Interpretation Comme nts CULTURE, STOOL (test code = 55722) SPECIMEN NUMBER: [id number] Toney MarcusLTBG, [id number] 00:00:00* Test Item Value Reference Range Interpretation Comme nts CULTURE, STOOL (test code = 92613) SPECIMEN NUMBER: [id number] Toney MarcusLTURE, [id number] 00:00:00* Test Item Value Reference Range Interpretation Comme nts CULTURE, STOOL (test code = 33568) SPECIMEN NUMBER: [id number] Toney RennerCULTBG, [id number] 00:00:00* Test Item Value Reference Range Interpretation Comme nts CULTURE, STOOL (test code = 44881) SPECIMEN NUMBER: [id number] Toney RennerCOMPREHENSIVE METABOLIC [id number] 00:00:00* Test Item Value Reference Range Interpretation Comme nts GLUCOSE (test code = 2217) 298 MG/DL BUN (test code = 2208) 21 MG/DL CREATININE (test code = 2214) 0.56 MG/DL eGFR AMER. (test cod e = 87579) 113 ML/MIN/1.73 eGFR NON- AMER. (test code = 81712) 97 ML/MIN/1.73 CALC BUN/CREAT (test code = [...] = 2219) 21 U/L Toney RennerCBC W/AUTO [id number] 00:00:00* Test Item Value Reference Range Interpretation [...] (test code = 1015) 204 K/UL Toney Cowan [id number] 00:00:00* Test Item Value Reference Range Interpretation Comme nts AMYLASE (test code = 2205) 57 U/L Toney Cowan [id number] 00:00:00* Test Item Value Reference Range Interpretation Comme nts LIPASE (test code = 205) 26 U/L Toney RennerCOMPREHENSIVE METABOLIC [id number] 00:00:00* Test Item Value Reference Range Interpretation Comme nts GLUCOSE (test code = 2217) 298 MG/DL BUN (test code = 2208) 21 MG/DL CREATININE (test code = 2214) 0.56 MG/DL eGFR AMER. (test cod e = 23785) 113 ML/MIN/1.73 eGFR NON- AMER. (test code = 18351) 97 ML/MIN/1.73 CALC BUN/CREAT (test code = [...] = 2219) 21 U/L Toney RennerCBC W/AUTO [id number] 00:00:00* Test Item Value Reference Range Interpretation [...] (test code = 1015) 204 K/UL Toney Cowan [id number] 00:00:00* Test Item Value Reference Range Interpretation Comme nts AMYLASE (test code = 2205) 57 U/L Toney F [id number] 00:00:00* Test Item Value Reference Range Interpretation Comme nts LIPASE (test code = 2058) 26 U/L Toney F AustinCOMPREHENSIVE METABOLIC [id number] 00:00:00* Test Item Value Reference Range Interpretation Comme nts GLUCOSE (test code = 2217) 298 MG/DL BUN (test code = 2208) 21 MG/DL CREATININE (test code = 2214) 0.56 MG/DL eGFR AMER. (test cod e = 70786) 113 ML/MIN/1.73 eGFR NON- AMER. (test code = 33759) 97 ML/MIN/1.73 CALC BUN/CREAT (test code = [...] code = 2219) 21 U/L CBC W/AUTO [id number] 00:00:00* Test Item Value Reference Range Interpretation [...] COUNT (test code = 1015) 204 K/UL [id number] 00:00:00* Test Item Value Reference Range Interpretation Comme nts AMYLASE (test code = 2205) 57 U/L [id number] 00:00:00* Test Item Value Reference Range Interpretation Comme nts LIPASE (test code = 2058) 26 U/L COMPREHENSIVE METABOLIC [id number] 00:00:00* Test Item Value Reference Range Interpretation Comme nts GLUCOSE (test code = 2217) 298 MG/DL BUN (test code = 2208) 21 MG/DL CREATININE (test code = 2214) 0.56 MG/DL eGFR AMER. (test cod e = 29398) 113 ML/MIN/1.73 eGFR NON- AMER. (test code = 99736) 97 ML/MIN/1.73 CALC BUN/CREAT (test code = [...] code = 2219) 21 U/L CBC W/AUTO [id number] 00:00:00* Test Item Value Reference Range Interpretation [...] COUNT (test code = 1015) 204 K/UL [id number] 00:00:00* Test Item Value Reference Range Interpretation Comme nts AMYLASE (test code = 2205) 57 U/L [id number] 00:00:00* Test Item Value Reference Range Interpretation Comme nts LIPASE (test code = 2058) 26 U/L COMPREHENSIVE METABOLIC [id number] 00:00:00* Test Item Value Reference Range Interpretation Comme nts GLUCOSE (test code = 2217) 298 MG/DL BUN (test code = 2208) 21 MG/DL CREATININE (test code = 2214) 0.56 MG/DL eGFR AMER. (test cod e = 32323) 113 ML/MIN/1.73 eGFR NON- AMER. (test code = 96161) 97 ML/MIN/1.73 CALC BUN/CREAT (test code = [...] code = 2219) 21 U/L CBC W/AUTO [id number] 00:00:00* Test Item Value Reference Range Interpretation [...] COUNT (test code = 1015) 204 K/UL [id number] 00:00:00* Test Item Value Reference Range Interpretation Comme nts AMYLASE (test code = 5) 57 U/L [id number] 00:00:00* Test Item Value Reference Range Interpretation Comme nts LIPASE (test code = 2057) 26 U/L COMPREHENSIVE METABOLIC [id number] 00:00:00* Test Item Value Reference Range Interpretation Comme nts GLUCOSE (test code = 2217) 298 MG/DL BUN (test code = 2208) 21 MG/DL CREATININE (test code = 2214) 0.56 MG/DL eGFR AMER. (test cod e = 41331) 113 ML/MIN/1.73 eGFR NON- AMER. (test code = 12666) 97 ML/MIN/1.73 CALC BUN/CREAT (test code = [...] code = 2219) 21 U/L CBC W/AUTO [id number] 00:00:00* Test Item Value Reference Range Interpretation [...] code = 1015) 204 K/UL COMPREHENSIVE METABOLIC [id number] 00:00:00* Test Item Value Reference Range Interpretation Comme nts GLUCOSE (test code = 2217) 298 MG/DL BUN (test code = 2208) 21 MG/DL CREATININE (test code = 2214) 0.56 MG/DL eGFR AMER. (test cod e = 18625) 113 ML/MIN/1.73 eGFR NON- AMER. (test code = 85557) 97 ML/MIN/1.73 CALC BUN/CREAT (test code = [...] ALT (test code = 2219) 21 U/L [id number] 00:00:00* Test Item Value Reference Range Interpretation Comme [facility] AMYLASE (test code = 2205) 57 U/L [id number] 00:00:00* Test Item Value Reference Range Interpretation Comme [facility] LIPASE (test code = 2057) 26 U/L CBC W/AUTO [id number] 00:00:00* Test Item Value Reference Range Interpretation [...] COUNT (test code = 1015) 204 K/UL [id number] 00:00:00* Test Item Value Reference Range Interpretation Comme nts AMYLASE (test code = 2205) 57 U/L COMPREHENSIVE METABOLIC [id number] 00:00:00* Test Item Value Reference Range Interpretation Comme nts GLUCOSE (test code = 2217) 298 MG/DL BUN (test code = 2208) 21 MG/DL CREATININE (test code = 2214) 0.56 MG/DL eGFR AMER. (test cod e = 93374) 113 ML/MIN/1.73 eGFR NON- AMER. (test code = 23865) 97 ML/MIN/1.73 CALC BUN/CREAT (test code = [...] code = 2219) 21 U/L CBC W/AUTO [id number] 00:00:00* Test Item Value Reference Range Interpretation [...] COUNT (test code = 1015) 204 K/UL [id number] 00:00:00* Test Item Value Reference Range Interpretation Comme nts LIPASE (test code = 205) 26 U/L [id number] 00:00:00* Test Item Value Reference Range Interpretation Comme nts AMYLASE (test code = 2204) 57 U/L [id number] 00:00:00* Test Item Value Reference Range Interpretation Comme nts LIPASE (test code = 2057) 26 U/L COMPREHENSIVE METABOLIC [id number] 00:00:00* Test Item Value Reference Range Interpretation Comme nts GLUCOSE (test code = 2217) 298 MG/DL BUN (test code = 2208) 21 MG/DL CREATININE (test code = 2214) 0.56 MG/DL eGFR AMER. (test cod e = 56726) 113 ML/MIN/1.73 eGFR NON- AMER. (test code = 42890) 97 ML/MIN/1.73 CALC BUN/CREAT (test code = [...] code = 2219) 21 U/L CBC W/AUTO [id number] 00:00:00* Test Item Value Reference Range Interpretation [...] COUNT (test code = 1015) 204 K/UL [id number] 00:00:00* Test Item Value Reference Range Interpretation Comme nts AMYLASE (test code = 2205) 57 U/L [id number] 00:00:00* Test Item Value Reference Range Interpretation Comme nts LIPASE (test code = 2058) 26 U/L COMPREHENSIVE METABOLIC [id number] 00:00:00* Test Item Value Reference Range Interpretation Comme nts GLUCOSE (test code = 2217) 298 MG/DL BUN (test code = 2208) 21 MG/DL CREATININE (test code = 2214) 0.56 MG/DL eGFR AMER. (test cod e = 46249) 113 ML/MIN/1.73 eGFR NON- AMER. (test code = 56143) 97 ML/MIN/1.73 CALC BUN/CREAT (test code = [...] code = 2219) 21 U/L CBC W/AUTO [id number] 00:00:00* Test Item Value Reference Range Interpretation [...] COUNT (test code = 1015) 204 K/UL [id number] 00:00:00* Test Item Value Reference Range Interpretation Comme nts AMYLASE (test code = 2205) 57 U/L [id number] 00:00:00* Test Item Value Reference Range Interpretation Comme nts LIPASE (test code = 2058) 26 U/L COMPREHENSIVE METABOLIC [id number] 00:00:00* Test Item Value Reference Range Interpretation Comme nts GLUCOSE (test code = 2217) 298 MG/DL BUN (test code = 2208) 21 MG/DL CREATININE (test code = 2214) 0.56 MG/DL eGFR AMER. (test cod e = 25303) 113 ML/MIN/1.73 eGFR NON- AMER. (test code = 46540) 97 ML/MIN/1.73 CALC BUN/CREAT (test code = [...] code = 2219) 21 U/L CBC W/AUTO [id number] 00:00:00* Test Item Value Reference Range Interpretation [...] COUNT (test code = 1015) 204 K/UL [id number] 00:00:00* Test Item Value Reference Range Interpretation Comme nts AMYLASE (test code = 2204) 57 U/L [id number] 00:00:00* Test Item Value Reference Range Interpretation Comme nts LIPASE (test code = 2057) 26 U/L COMPREHENSIVE METABOLIC [id number] 00:00:00* Test Item Value Reference Range Interpretation Comme nts GLUCOSE (test code = 2217) 298 MG/DL BUN (test code = 2208) 21 MG/DL CREATININE (test code = 2214) 0.56 MG/DL eGFR AMER. (test cod e = 75139) 113 ML/MIN/1.73 eGFR NON- AMER. (test code = 19948) 97 ML/MIN/1.73 CALC BUN/CREAT (test code = [...] code = 2219) 21 U/L Toney Cowan ZurdoCBC W/AUTO [id number] 00:00:00* Test Item Value Reference Range Interpretation [...] (test code = 1015) 204 K/UL Toney Cowan [id number] 00:00:00* Test Item Value Reference Range Interpretation Comme nts AMYLASE (test code = 2204) 57 U/L Toney Camryn [id number] 00:00:00* Test Item Value Reference Range Interpretation Comme nts LIPASE (test code = 2057) 26 U/L Toney Camryn WaterburyCOMPREHENSIVE METABOLIC [id number] 00:00:00* Test Item Value Reference Range Interpretation Comme nts GLUCOSE (test code = 2217) 298 MG/DL BUN (test code = 2208) 21 MG/DL CREATININE (test code = 2214) 0.56 MG/DL eGFR AMER. (test cod e = 85167) 113 ML/MIN/1.73 eGFR NON- AMER. (test code = 82421) 97 ML/MIN/1.73 CALC BUN/CREAT (test code = [...] = 2219) 21 U/L Toney RennerCBC W/AUTO [id number] 00:00:00* Test Item Value Reference Range Interpretation [...] (test code = 1015) 204 K/UL Toney [id number] 00:00:00* Test Item Value Reference Range Interpretation Comme nts AMYLASE (test code = 2205) 57 U/L Toney Cowan [id number] 00:00:00* Test Item Value Reference Range Interpretation Comme nts LIPASE (test code = 2057) 26 U/L Toney RennerCOMPREHENSIVE METABOLIC [id number] 00:00:00* Test Item Value Reference Range Interpretation Comme nts GLUCOSE (test code = 2217) 298 MG/DL BUN (test code = 2208) 21 MG/DL CREATININE (test code = 2214) 0.56 MG/DL eGFR AMER. (test cod e = 95791) 113 ML/MIN/1.73 eGFR NON- AMER. (test code = 70022) 97 ML/MIN/1.73 CALC BUN/CREAT (test code = [...] = 2219) 21 U/L Toney RennerCBC W/AUTO [id number] 00:00:00* Test Item Value Reference Range Interpretation [...] (test code = 1015) 204 K/UL Toney Cowan [id number] 00:00:00* Test Item Value Reference Range Interpretation Comme nts AMYLASE (test code = 2205) 57 U/L Toney Cowan [id number] 00:00:00* Test Item Value Reference Range Interpretation Comme nts LIPASE (test code = 2058) 26 U/L Toney Cowan AustinCOMPREHENSIVE METABOLIC [id number] 00:00:00* Test Item Value Reference Range Interpretation Comme nts GLUCOSE (test code = 2217) 298 MG/DL BUN (test code = 2208) 21 MG/DL CREATININE (test code = 2214) 0.56 MG/DL eGFR AMER. (test cod e = 71811) 113 ML/MIN/1.73 eGFR NON- AMER. (test code = 48549) 97 ML/MIN/1.73 CALC BUN/CREAT (test code = [...] code = 2219) 21 U/L Toney Cowan AustinCBC W/AUTO [id number] 00:00:00* Test Item Value Reference Range Interpretation [...] (test code = 1015) 204 K/UL Toney Cowan [id number] 00:00:00* Test Item Value Reference Range Interpretation Comme nts AMYLASE (test code = 2205) 57 U/L Toney Cowan [id number] 00:00:00* Test Item Value Reference Range Interpretation Comme nts LIPASE (test code = 2058) 26 U/L Toney RennerCBC W/AUTO [id number] 00:00:00* Test Item Value Reference Range Interpretation [...] code = 1015) 227 K/UL Toney RennerHEMOGLOBIN [id number] 00:00:00* Test Item Value Reference Range Interpretation Comme nts HEMOGLOBIN A1c (test code = 78622) 7.5 % Toney RennerMICROALBUMIN/CREATININE, RANDOM AND [id number] 00:00:00* Test Item Value Reference Range Interpretation Comme nts CREATININE, URINE, CONC. (te st code = 2071) 101.2 MG/DL MICROALBUMIN, RANDOM (test c ode = 55721) <0.2 MG/DL CALC MICROALB/CREAT RND (baljinder t code = 08639) <2 MG/G Toney Cowan AustinLIPID [id number] 00:00:00* Test Item Value Reference Range Interpretation Comme nts CHOLESTEROL (test code = 2210) 218 MG/DL TRIGLYCERIDES (test code = 2232) 173 MG/DL HDL CHOLESTEROL (test code = 2220) 49 MG/DL CALC LDL CHOL (test code = 2237) 134 MG/DL RISK RATIO LDL/HDL (test cod e = 2238) 2.74 RATIO Toney RennerCOMPREHENSIVE METABOLIC [id number] 00:00:00* Test Item Value Reference Range Interpretation Comme nts GLUCOSE (test code = 2217) 160 MG/DL BUN (test code = 2208) 23 MG/DL CREATININE (test code = 2214) 0.67 MG/DL eGFR AMER. (test cod e = 32414) 106 ML/MIN/1.73 eGFR NON- AMER. (test code = 66591) 92 ML/MIN/1.73 CALC BUN/CREAT (test code = [...] (test code = 2219) 22 U/L Toney Cowan ZurdoCBC W/AUTO [id number] 00:00:00* Test Item Value Reference Range Interpretation [...] (test code = 1015) 227 K/UL Toney Cowan AustinHEMOGLOBIN [id number] 00:00:00* Test Item Value Reference Range Interpretation Comme nts HEMOGLOBIN A1c (test code = 19525) 7.5 % Toney Cowan AustinMICROALBUMIN/CREATININE, RANDOM AND [id number] 00:00:00* Test Item Value Reference Range Interpretation Comme nts CREATININE, URINE, CONC. (te st code = 2072) 101.2 MG/DL MICROALBUMIN, RANDOM (test c ode = 29696) <0.2 MG/DL CALC MICROALB/CREAT RND (baljinder t code = 35323) <2 MG/G Toney Cowan AustinLIPID [id number] 00:00:00* Test Item Value Reference Range Interpretation Comme nts CHOLESTEROL (test code = 2210) 218 MG/DL TRIGLYCERIDES (test code = 2232) 173 MG/DL HDL CHOLESTEROL (test code = 2220) 49 MG/DL CALC LDL CHOL (test code = 2237) 134 MG/DL RISK RATIO LDL/HDL (test cod e = 2238) 2.74 RATIO Toney Cowan ZurdoCOMPREHENSIVE METABOLIC [id number] 00:00:00* Test Item Value Reference Range Interpretation Comme nts GLUCOSE (test code = 2217) 160 MG/DL BUN (test code = 2208) 23 MG/DL CREATININE (test code = 2214) 0.67 MG/DL eGFR AMER. (test cod e = 96930) 106 ML/MIN/1.73 eGFR NON- AMER. (test code = 29638) 92 ML/MIN/1.73 CALC BUN/CREAT (test code = [...] (test code = 2219) 22 U/L [facility] [id number] 00:00:00* Test Item Value Reference Range Interpretation [...] (test code = 1015) 227 K/UL HEMOGLOBIN [id number] 00:00:00* Test Item Value Reference Range Interpretation Comme nts HEMOGLOBIN A1c (test code = 26696) 7.5 % MICROALBUMIN/CREATININE, RANDOM AND [id number] 00:00:00* Test Item Value Reference Range Interpretation Comme nts CREATININE, URINE, CONC. (te st code = 2072) 101.2 MG/DL MICROALBUMIN, RANDOM (test c ode = 08299) <0.2 MG/DL CALC MICROALB/CREAT RND (baljinder t code = 56238) <2 MG/G LIPID [id number] 00:00:00* Test Item Value Reference Range Interpretation Comme nts CHOLESTEROL (test code = 2210) 218 MG/DL TRIGLYCERIDES (test code = 2232) 173 MG/DL HDL CHOLESTEROL (test code = 2220) 49 MG/DL CALC LDL CHOL (test code = 2237) 134 MG/DL RISK RATIO LDL/HDL (test cod e = 2238) 2.74 RATIO COMPREHENSIVE METABOLIC [id number] 00:00:00* Test Item Value Reference Range Interpretation Comme nts GLUCOSE (test code = 2217) 160 MG/DL BUN (test code = 2208) 23 MG/DL CREATININE (test code = 2214) 0.67 MG/DL eGFR AMER. (test cod e = 28375) 106 ML/MIN/1.73 eGFR NON- AMER. (test code = 60197) 92 ML/MIN/1.73 CALC BUN/CREAT (test code = [...] code = 2219) 22 U/L CBC W/AUTO [id number] 00:00:00* Test Item Value Reference Range Interpretation [...] (test code = 1015) 227 K/UL HEMOGLOBIN [id number] 00:00:00* Test Item Value Reference Range Interpretation Comme nts HEMOGLOBIN A1c (test code = 53326) 7.5 % MICROALBUMIN/CREATININE, RANDOM AND [id number] 00:00:00* Test Item Value Reference Range Interpretation Comme nts CREATININE, URINE, CONC. (te st code = 2072) 101.2 MG/DL MICROALBUMIN, RANDOM (test c ode = 50828) <0.2 MG/DL CALC MICROALB/CREAT RND (baljinder t code = 52833) <2 MG/G LIPID [id number] 00:00:00* Test Item Value Reference Range Interpretation Comme nts CHOLESTEROL (test code = 2210) 218 MG/DL TRIGLYCERIDES (test code = 2232) 173 MG/DL HDL CHOLESTEROL (test code = 2220) 49 MG/DL CALC LDL CHOL (test code = 2237) 134 MG/DL RISK RATIO LDL/HDL (test cod e = 2238) 2.74 RATIO COMPREHENSIVE METABOLIC [id number] 00:00:00* Test Item Value Reference Range Interpretation Comme nts GLUCOSE (test code = 2217) 160 MG/DL BUN (test code = 2208) 23 MG/DL CREATININE (test code = 2214) 0.67 MG/DL eGFR AMER. (test cod e = 29175) 106 ML/MIN/1.73 eGFR NON- AMER. (test code = 30884) 92 ML/MIN/1.73 CALC BUN/CREAT (test code = [...] code = 2219) 22 U/L CBC W/AUTO [id number] 00:00:00* Test Item Value Reference Range Interpretation [...] (test code = 1015) 227 K/UL HEMOGLOBIN [id number] 00:00:00* Test Item Value Reference Range Interpretation Comme nts HEMOGLOBIN A1c (test code = 28824) 7.5 % MICROALBUMIN/CREATININE, RANDOM AND [id number] 00:00:00* Test Item Value Reference Range Interpretation Comme nts CREATININE, URINE, CONC. (te st code = 2072) 101.2 MG/DL MICROALBUMIN, RANDOM (test c ode = 61738) <0.2 MG/DL CALC MICROALB/CREAT RND (baljinder t code = 11583) <2 MG/G LIPID [id number] 00:00:00* Test Item Value Reference Range Interpretation Comme nts CHOLESTEROL (test code = 2210) 218 MG/DL TRIGLYCERIDES (test code = 2232) 173 MG/DL HDL CHOLESTEROL (test code = 2220) 49 MG/DL CALC LDL CHOL (test code = 2237) 134 MG/DL RISK RATIO LDL/HDL (test cod e = 2238) 2.74 RATIO COMPREHENSIVE METABOLIC [id number] 00:00:00* Test Item Value Reference Range Interpretation Comme nts GLUCOSE (test code = 2217) 160 MG/DL BUN (test code = 2208) 23 MG/DL CREATININE (test code = 2214) 0.67 MG/DL eGFR AMER. (test cod e = 96570) 106 ML/MIN/1.73 eGFR NON- AMER. (test code = 07104) 92 ML/MIN/1.73 CALC BUN/CREAT (test code = [...] code = 2219) 22 U/L CBC W/AUTO [id number] 00:00:00* Test Item Value Reference Range Interpretation [...] (test code = 1015) 227 K/UL HEMOGLOBIN [id number] 00:00:00* Test Item Value Reference Range Interpretation Comme nts HEMOGLOBIN A1c (test code = 90373) 7.5 % MICROALBUMIN/CREATININE, RANDOM AND [id number] 00:00:00* Test Item Value Reference Range Interpretation Comme nts CREATININE, URINE, CONC. (te st code = 2072) 101.2 MG/DL MICROALBUMIN, RANDOM (test c ode = 81554) <0.2 MG/DL CALC MICROALB/CREAT RND (baljinder t code = 11792) <2 MG/G LIPID [id number] 00:00:00* Test Item Value Reference Range Interpretation Comme nts CHOLESTEROL (test code = 2210) 218 MG/DL TRIGLYCERIDES (test code = 2232) 173 MG/DL HDL CHOLESTEROL (test code = 2220) 49 MG/DL CALC LDL CHOL (test code = 2237) 134 MG/DL RISK RATIO LDL/HDL (test cod e = 2238) 2.74 RATIO COMPREHENSIVE METABOLIC [id number] 00:00:00* Test Item Value Reference Range Interpretation Comme nts GLUCOSE (test code = 2217) 160 MG/DL BUN (test code = 2208) 23 MG/DL CREATININE (test code = 2214) 0.67 MG/DL eGFR AMER. (test cod e = 88557) 106 ML/MIN/1.73 eGFR NON- AMER. (test code = 53166) 92 ML/MIN/1.73 CALC BUN/CREAT (test code = [...] code = 2219) 22 U/L CBC W/AUTO [id number] 00:00:00* Test Item Value Reference Range Interpretation [...] (test code = 1015) 227 K/UL HEMOGLOBIN [id number] 00:00:00* Test Item Value Reference Range Interpretation Comme nts HEMOGLOBIN A1c (test code = 53668) 7.5 % MICROALBUMIN/CREATININE, RANDOM AND [id number] 00:00:00* Test Item Value Reference Range Interpretation Comme nts CREATININE, URINE, CONC. (te st code = 2072) 101.2 MG/DL MICROALBUMIN, RANDOM (test c ode = 14480) <0.2 MG/DL CALC MICROALB/CREAT RND (baljinder t code = 90207) <2 MG/G CBC W/AUTO [id number] 00:00:00* Test Item Value Reference Range Interpretation [...] (test code = 1015) 227 K/UL HEMOGLOBIN [id number] 00:00:00* Test Item Value Reference Range Interpretation Comme nts HEMOGLOBIN A1c (test code = 27036) 7.5 % MICROALBUMIN/CREATININE, RANDOM AND [id number] 00:00:00* Test Item Value Reference Range Interpretation Comme nts CREATININE, URINE, CONC. (te st code = 2072) 101.2 MG/DL MICROALBUMIN, RANDOM (test c ode = 09137) <0.2 MG/DL CALC MICROALB/CREAT RND (baljinder t code = 91792) <2 MG/G LIPID [id number] 00:00:00* Test Item Value Reference Range Interpretation Comme nts CHOLESTEROL (test code = 2210) 218 MG/DL TRIGLYCERIDES (test code = 2232) 173 MG/DL HDL CHOLESTEROL (test code = 2220) 49 MG/DL CALC LDL CHOL (test code = 2237) 134 MG/DL RISK RATIO LDL/HDL (test cod e = 2238) 2.74 RATIO LIPID [id number] 00:00:00* Test Item Value Reference Range Interpretation Comme nts CHOLESTEROL (test code = 2210) 218 MG/DL TRIGLYCERIDES (test code = 2232) 173 MG/DL HDL CHOLESTEROL (test code = 2220) 49 MG/DL CALC LDL CHOL (test code = 2237) 134 MG/DL RISK RATIO LDL/HDL (test cod e = 2238) 2.74 RATIO COMPREHENSIVE METABOLIC [id number] 00:00:00* Test Item Value Reference Range Interpretation Comme nts GLUCOSE (test code = 2217) 160 MG/DL BUN (test code = 2208) 23 MG/DL CREATININE (test code = 2214) 0.67 MG/DL eGFR AMER. (test cod e = 56114) 106 ML/MIN/1.73 eGFR NON- AMER. (test code = 68094) 92 ML/MIN/1.73 CALC BUN/CREAT (test code = [...] code = 2219) 22 U/L COMPREHENSIVE METABOLIC [id number] 00:00:00* Test Item Value Reference Range Interpretation Comme nts GLUCOSE (test code = 2217) 160 MG/DL BUN (test code = 2208) 23 MG/DL CREATININE (test code = 2214) 0.67 MG/DL eGFR AMER. (test cod e = 72969) 106 ML/MIN/1.73 eGFR NON- AMER. (test code = 78515) 92 ML/MIN/1.73 CALC BUN/CREAT (test code = [...] code = 2219) 22 U/L CBC W/AUTO [id number] 00:00:00* Test Item Value Reference Range Interpretation [...] (test code = 1015) 227 K/UL HEMOGLOBIN [id number] 00:00:00* Test Item Value Reference Range Interpretation Comme nts HEMOGLOBIN A1c (test code = 45040) 7.5 % MICROALBUMIN/CREATININE, RANDOM AND [id number] 00:00:00* Test Item Value Reference Range Interpretation Comme nts CREATININE, URINE, CONC. (te st code = 2072) 101.2 MG/DL MICROALBUMIN, RANDOM (test c ode = 22827) <0.2 MG/DL CALC MICROALB/CREAT RND (baljinder t code = 62796) <2 MG/G LIPID [id number] 00:00:00* Test Item Value Reference Range Interpretation Comme nts CHOLESTEROL (test code = 2210) 218 MG/DL TRIGLYCERIDES (test code = 2232) 173 MG/DL HDL CHOLESTEROL (test code = 2220) 49 MG/DL CALC LDL CHOL (test code = 2237) 134 MG/DL RISK RATIO LDL/HDL (test cod e = 2238) 2.74 RATIO COMPREHENSIVE METABOLIC [id number] 00:00:00* Test Item Value Reference Range Interpretation Comme nts GLUCOSE (test code = 2217) 160 MG/DL BUN (test code = 2208) 23 MG/DL CREATININE (test code = 2214) 0.67 MG/DL eGFR AMER. (test cod e = 24260) 106 ML/MIN/1.73 eGFR NON- AMER. (test code = 87594) 92 ML/MIN/1.73 CALC BUN/CREAT (test code = [...] code = 2219) 22 U/L CBC W/AUTO [id number] 00:00:00* Test Item Value Reference Range Interpretation [...] (test code = 1015) 227 K/UL HEMOGLOBIN [id number] 00:00:00* Test Item Value Reference Range Interpretation Comme nts HEMOGLOBIN A1c (test code = 72765) 7.5 % MICROALBUMIN/CREATININE, RANDOM AND [id number] 00:00:00* Test Item Value Reference Range Interpretation Comme nts CREATININE, URINE, CONC. (te st code = 2072) 101.2 MG/DL MICROALBUMIN, RANDOM (test c ode = 53832) <0.2 MG/DL CALC MICROALB/CREAT RND (baljinder t code = 89994) <2 MG/G LIPID [id number] 00:00:00* Test Item Value Reference Range Interpretation Comme nts CHOLESTEROL (test code = 2210) 218 MG/DL TRIGLYCERIDES (test code = 2232) 173 MG/DL HDL CHOLESTEROL (test code = 2220) 49 MG/DL CALC LDL CHOL (test code = 2237) 134 MG/DL RISK RATIO LDL/HDL (test cod e = 2238) 2.74 RATIO COMPREHENSIVE METABOLIC [id number] 00:00:00* Test Item Value Reference Range Interpretation Comme nts GLUCOSE (test code = 2217) 160 MG/DL BUN (test code = 2208) 23 MG/DL CREATININE (test code = 2214) 0.67 MG/DL eGFR AMER. (test cod e = 40427) 106 ML/MIN/1.73 eGFR NON- AMER. (test code = 61505) 92 ML/MIN/1.73 CALC BUN/CREAT (test code = [...] code = 2219) 22 U/L CBC W/AUTO [id number] 00:00:00* Test Item Value Reference Range Interpretation [...] (test code = 1015) 227 K/UL HEMOGLOBIN [id number] 00:00:00* Test Item Value Reference Range Interpretation Comme nts HEMOGLOBIN A1c (test code = 12194) 7.5 % MICROALBUMIN/CREATININE, RANDOM AND [id number] 00:00:00* Test Item Value Reference Range Interpretation Comme nts CREATININE, URINE, CONC. (te st code = 2072) 101.2 MG/DL MICROALBUMIN, RANDOM (test c ode = 62105) <0.2 MG/DL CALC MICROALB/CREAT RND (baljinder t code = 09995) <2 MG/G LIPID [id number] 00:00:00* Test Item Value Reference Range Interpretation Comme nts CHOLESTEROL (test code = 2210) 218 MG/DL TRIGLYCERIDES (test code = 2232) 173 MG/DL HDL CHOLESTEROL (test code = 2220) 49 MG/DL CALC LDL CHOL (test code = 2237) 134 MG/DL RISK RATIO LDL/HDL (test cod e = 2238) 2.74 RATIO COMPREHENSIVE METABOLIC [id number] 00:00:00* Test Item Value Reference Range Interpretation Comme nts GLUCOSE (test code = 2217) 160 MG/DL BUN (test code = 2208) 23 MG/DL CREATININE (test code = 2214) 0.67 MG/DL eGFR AMER. (test cod e = 49441) 106 ML/MIN/1.73 eGFR NON- AMER. (test code = 76772) 92 ML/MIN/1.73 CALC BUN/CREAT (test code = [...] code = 2219) 22 U/L CBC W/AUTO [id number] 00:00:00* Test Item Value Reference Range Interpretation [...] code = 1015) 227 K/UL Toney RennerHEMOGLOBIN [id number] 00:00:00* Test Item Value Reference Range Interpretation Comme nts HEMOGLOBIN A1c (test code = 69890) 7.5 % Toney RennerMICROALBUMIN/CREATININE, RANDOM AND [id number] 00:00:00* Test Item Value Reference Range Interpretation Comme nts CREATININE, URINE, CONC. (te st code = 2072) 101.2 MG/DL MICROALBUMIN, RANDOM (test c ode = 56211) <0.2 MG/DL CALC MICROALB/CREAT RND (baljinder t code = 95813) <2 MG/G Toney RennerLIPID [id number] 00:00:00* Test Item Value Reference Range Interpretation Comme nts CHOLESTEROL (test code = 2210) 218 MG/DL TRIGLYCERIDES (test code = 2232) 173 MG/DL HDL CHOLESTEROL (test code = 2220) 49 MG/DL CALC LDL CHOL (test code = 2237) 134 MG/DL RISK RATIO LDL/HDL (test cod e = 2238) 2.74 RATIO Toney RennerCOMPREHENSIVE METABOLIC [id number] 00:00:00* Test Item Value Reference Range Interpretation Comme nts GLUCOSE (test code = 2217) 160 MG/DL BUN (test code = 2208) 23 MG/DL CREATININE (test code = 2214) 0.67 MG/DL eGFR AMER. (test cod e = 93630) 106 ML/MIN/1.73 eGFR NON- AMER. (test code = 92506) 92 ML/MIN/1.73 CALC BUN/CREAT (test code = [...] = 2219) 22 U/L Toney RennerCBC W/AUTO [id number] 00:00:00* Test Item Value Reference Range Interpretation [...] code = 1015) 227 K/UL Toney RennerHEMOGLOBIN [id number] 00:00:00* Test Item Value Reference Range Interpretation Comme [facility] HEMOGLOBIN A1c (test code = 35222) 7.5 % Toney RennerMICROALBUMIN/CREATININE, RANDOM AND [id number] 00:00:00* Test Item Value Reference Range Interpretation Comme nts CREATININE, URINE, CONC. (te st code = 2072) 101.2 MG/DL MICROALBUMIN, RANDOM (test c ode = 32340) <0.2 MG/DL CALC MICROALB/CREAT RND (baljinder t code = 41241) <2 MG/G Toney RennerLIPID [id number] 00:00:00* Test Item Value Reference Range Interpretation Comme nts CHOLESTEROL (test code = 2210) 218 MG/DL TRIGLYCERIDES (test code = 2232) 173 MG/DL HDL CHOLESTEROL (test code = 2220) 49 MG/DL CALC LDL CHOL (test code = 2237) 134 MG/DL RISK RATIO LDL/HDL (test cod e = 2238) 2.74 RATIO Toney RennerCOMPREHENSIVE METABOLIC [id number] 00:00:00* Test Item Value Reference Range Interpretation Comme nts GLUCOSE (test code = 2217) 160 MG/DL BUN (test code = 2208) 23 MG/DL CREATININE (test code = 2214) 0.67 MG/DL eGFR AMER. (test cod e = 53538) 106 ML/MIN/1.73 eGFR NON- AMER. (test code = 24866) 92 ML/MIN/1.73 CALC BUN/CREAT (test code = [...] = 2219) 22 U/L Toney RennerCBC W/AUTO [id number] 00:00:00* Test Item Value Reference Range Interpretation [...] code = 1015) 227 K/UL Toney RennerHEMOGLOBIN [id number] 00:00:00* Test Item Value Reference Range Interpretation Comme [facility] HEMOGLOBIN A1c (test code = 70843) 7.5 % Toney RennerMICROALBUMIN/CREATININE, RANDOM AND [id number] 00:00:00* Test Item Value Reference Range Interpretation Comme nts CREATININE, URINE, CONC. (te st code = 2072) 101.2 MG/DL MICROALBUMIN, RANDOM (test c ode = 09268) <0.2 MG/DL CALC MICROALB/CREAT RND (baljinder t code = 54724) <2 MG/G Toney RennerLIPID [id number] 00:00:00* Test Item Value Reference Range Interpretation Comme nts CHOLESTEROL (test code = 2210) 218 MG/DL TRIGLYCERIDES (test code = 2232) 173 MG/DL HDL CHOLESTEROL (test code = 2220) 49 MG/DL CALC LDL CHOL (test code = 2237) 134 MG/DL RISK RATIO LDL/HDL (test cod e = 2238) 2.74 RATIO Toney RennerCOMPREHENSIVE METABOLIC [id number] 00:00:00* Test Item Value Reference Range Interpretation Comme nts GLUCOSE (test code = 2217) 160 MG/DL BUN (test code = 2208) 23 MG/DL CREATININE (test code = 2214) 0.67 MG/DL eGFR AMER. (test cod e = 28332) 106 ML/MIN/1.73 eGFR NON- AMER. (test code = 79768) 92 ML/MIN/1.73 CALC BUN/CREAT (test code = [...] = 2219) 22 U/L Toney RennerCBC W/AUTO [id number] 00:00:00* Test Item Value Reference Range Interpretation [...] code = 1015) 227 K/UL Toney RennerHEMOGLOBIN [id number] 00:00:00* Test Item Value Reference Range Interpretation Comme nts HEMOGLOBIN A1c (test code = 88809) 7.5 % Toney RennerMICROALBUMIN/CREATININE, RANDOM AND [id number] 00:00:00* Test Item Value Reference Range Interpretation Comme nts CREATININE, URINE, CONC. (te st code = 2072) 101.2 MG/DL MICROALBUMIN, RANDOM (test c ode = 70314) <0.2 MG/DL CALC MICROALB/CREAT RND (baljinder t code = 02513) <2 MG/G Toney RennerLIPID [id number] 00:00:00* Test Item Value Reference Range Interpretation Comme nts CHOLESTEROL (test code = 2210) 218 MG/DL TRIGLYCERIDES (test code = 2232) 173 MG/DL HDL CHOLESTEROL (test code = 2220) 49 MG/DL CALC LDL CHOL (test code = 2237) 134 MG/DL RISK RATIO LDL/HDL (test cod e = 2238) 2.74 RATIO Toney RennerCOMPREHENSIVE METABOLIC [id number] 00:00:00* Test Item Value Reference Range Interpretation Comme nts GLUCOSE (test code = 2217) 160 MG/DL BUN (test code = 2208) 23 MG/DL CREATININE (test code = 2214) 0.67 MG/DL eGFR AMER. (test cod e = 51401) 106 ML/MIN/1.73 eGFR NON- AMER. (test code = 02574) 92 ML/MIN/1.73 CALC BUN/CREAT (test code = [...] (test code = 2219) 22 U/L Toney Renner Notes Date/Time Note Provider Source [facility]2024-11-07 00:00:00 [facility]2024-09-06 00:00:00 [facility]2024-08-24 00:00:00 [facility]2024-08-16 00:00:00 [facility]2024-05-09 00:00:00 [facility]2023-08-28 16:15:08 Received cardiac clearance from [facility] per Viviana it was sent on 06/17/[address] Sevilla at [phone] Donna Martinez [facility] [id number] 02:03:43 Pt given printed and verbal discharge [...] leaving in no apparent distress, Sweetie Moore [place] [id number] 23:09:10 Provider reports guiac test negative. Pt reports LLQ abd cramping. [place] [address]-08-26 22:09:58 Patient states she started having dark stools today Bri Brand [place] [address]-08-26 22:01:47 CC: abdominal pain x 3 days that comes up and garcia Belching repeatedly while in triage. Awake, alert, oriented, resp reg unlabored, skin warm and dry, color appropriate for race, moves all ext without difficulty, amb with no assist Appears in no distress [place] 107913-08-22 08:53:14 ----- Message from Petrona Burnette MD sent at 06/16/2023 1:46 PM CDT ----- Please fax my note to GI: Dr. Saulo Sevilla SHAHEEN note faxed, confirmation received Sun Frazier [place] [id number] 00:32:43 Pt given printed and verbal discharge [...] gait, in no apparent distress, Interpretor id #[id number] [facility] Valdez [facility] [id number] 18:19:57 Pt arrived via private car with c/o left side chest wall pain that is worse with deep breathing, per son her left arm "falls asleep". States that the pain has been ongoing x2 days and becoming worse.EKG done in triage. Yanci Corbin [facility] [id number] 18:11:00Associated Order(s): EKG-12 Lead ROUTINE ONCE Pre-Procedure Diagnose(s): Chest pain, unspecified type Post-Procedure Diagnose(s): Chest pain, unspecified type 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 There are no focal consolidations, pleural effusions or pneumothoraces. There is no mediastinal widening. There is moderate atherosclerosis in the thoracic aorta. IMPRESSION No acute cardiopulmonary disease RL: 7802 AFC: 29601 End of report Lab Results:reviewed by me [...] 0.01 - 0.07 10*3/uL COMP. METABOLIC PANEL (95073) - Abnormal NA 142 135 - 145 [...] VW CBC WITH DIFF COMP. METABOLIC PANEL (01375) LIPASE TROPONIN I N-TERMINAL PRO-BNP MAGNESIUM TROPONIN [...] file. ED COURSE ED Course as of 06/01/234 Sun Jun 01, 20232045 Troponin negative, will treat for musculoskeletal pain and repeat troponin, if negative will discharge [PD] 1932 Labs pending, EKG unchanged from past , CXR with cardiomegaly no signs of fluid overload [PD] ED Course User Index [PD] Betsey Boss NP Diagnosis/Impression as of 06/01/23 2224 Chest pain, unspecified type Atypical chest pain [...] VW CBC WITH DIFF COMP. METABOLIC PANEL (68260) LIPASE TROPONIN I N-TERMINAL PRO-BNP MAGNESIUM Problems Addressed: Atypical chest pain: acute illness or injury Details: ekg , unchanged, troponin x 2 negative Chest pain, unspecified type: acute illness or injury Details: ekg , unchanged, troponin x 2 negative Primary hypertension: chronic illness or injury Details: continue home medicaitons and follow up [facility] cardiology for further management Reflux gastritis: chronic [...] esophagealspasm. Will have follow up with her [employer] . Recommend continue all GI medications as [...] Have A Relationship: PCP - General [address] [facility] [id number] Electronically signed by: Betsey Boss NP 06/01/234 Associated attestation - Solomon Millan MD - 06/02/2023 12:04 AM CDT " I was personally available for consultation in the Emergency Department during this Patient evaluation/encounter by QUANG Enoch " [facility] HospitalIrslus3247-59-82 11:32:[id number] [place] [address] PATIENT NAME: DANIELLE MARTINEZ ADMIT DATE: 02/02/19 ACCOUNT NO: [id number] ROOM NO: [facility] AGE: 68 REPORT TYPE: DISCHARGE SUMMARY SEX: [...] Levaquin and Flagyl. Dictated By: JOHN Aguirre Infant Nanny for Krysta Villarreal MD WT: DS:JULIET/KEN/AKTTY Conf#: [id number]/DID#: [id number] Authenticated by Ru Rivera On 03/11/2019 09:51:54 AM Authenticated by Krysta Villarreal MD On 03/14/2019 08:23:54 AM at 0824 at 0824 PATIENT NAME: DANIELLE MARTINEZ 07:07:00 [facility] ([facility] Hospitalist Progress Note REPORT#:[id number] REPORT STATUS: Signed DATE:02/05/19 TIME: 706 PATIENT: DANIELLE MARTINEZ UNIT #: [id number] ROOM/BED: [address] : [address] AGE: 68 SEX: F ATTEND: Krsyta Villarreal MD ADM AUTHOR: Krysta Villarreal MD [...] of motion, no edema Musculoskeletal: normal inspection Neuro/LAMP MECHANIC: alert, oriented X 3 Skin: dry, intact [...] pcp in a week at 0710 RPT #:[id number] END OF [id number] 07:09:00 [facility] ([facility]) Hospitalist Progress Note REPORT#:[id number] REPORT STATUS: Signed DATE:02/04/19 TIME: 07 PATIENT: DANIELLE MARTINEZ UNIT #: [id number] ROOM/BED: [address] : [address] AGE: 68 SEX: F [...] of motion, no edema Musculoskeletal: normal inspection Neuro/LAMP MECHANIC: alert, 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 continue zosyn at 0712 RPT #:[id number] END OF [id number] 17:19:00 [facility] ([facility]) Trauma Consultation Note REPORT#:[id number] REPORT STATUS: Signed DATE:02/03/19 TIME: 1718 PATIENT: DANIELLE MARTINEZ UN[facility] #: [id number] [facility]GE[facility] 68 SEX: F [...] Hydralazine HCl 10 MG Q6H PRN PRN 02/025 AC (APRESOLINE) IV 03/04 2146 Central Nervous [...] Time Status Admin Potassium Chloride/ 1,000 ML .[id number] 02/02 2200 AC 02/04 Dextrose/Sod Cl IV [...] Hydroxide 30 ML Q6H PRN PRN 02/02 2145 AC 02/04 (MILK OF MAGNESIA) PO 03/04 2146 1751 Metoclopramide HCl 5 MG Q8H PRN PRN 02/02 2145 AC (REGLAN) IV 03/04 2146 Ondansetron HCl 4 MG Q6H PRN PRN 02/02 2145 AC (ZOFRAN) IV 03/04 2146 Respiratory Tract Agents Sig/Roro Start time Last [...] Musculoskeletal: full range of motion, normal inspection Neuro/LAMP MECHANIC: alert, oriented X 3, CNII-XII intact, follows commands Jose G Coma Score: Jose G Coma Score: Response Value Patient intubated? no Jose G eyes: eyes open spontaneously 4 [place] speech: oriented 5 Jose G motor: obeys [...] % (Auto) (16 - 50 %) 22.2 [place] % (Auto) (0.0 - 13.0 %) 8.3 [...] pH (4.6 - 8.0) 5.0 Ur Specific [place] (1.001 - 1.035) 1.025 Urine Protein (NEGATIVE [...] as tolerated. D/c planning at 2053 RPT #:[id number] END OF [id number] 07:16:00 [facility] ([facility]) Hospitalist Progress Note REPORT#:[id number] REPORT STATUS: Signed DATE:02/03/19 TIME: 07 PATIENT: DANIELLE MARTINEZ UNIT #: [id number] ROOM/BED: [facility] : 51 AGE: 68 SEX: F ATTEND: [...] Flow FiO2 Mean Ox Delivery Rate 02/03 06 98.2 59 17 156/80 105.7 95 Room [...] of motion, no edema Musculoskeletal: normal inspection Neuro/LAMP MECHANIC: alert, oriented X 3 Skin: dry, intact Results Findings/Data: Laboratory Tests 02/02 02/02 142 1425 Chemistry Sodium (136 - 145 mmol/L) [...] 393 U/L) 44 L Laboratory Tests 02/02 142 Coagulation PT (8.7 - 12.1 SECONDS) 12.9 [...] % (Auto) (16 - 50 %) 22.2 [place] % (Auto) (0.0 - 13.0 %) 8.3 [...] - 0.2 %) 0.0 Laboratory Tests 02/02 1438 Toxicology Ketones (NEGATIVE mg/dl) NEGATIVE Laboratory Tests 02/02 1438 Urines Urine Color (YELLOW) Yellow Urine Appearance (CLEAR) HAZY Urine pH (4.6 - 8.0) 5.0 Ur Specific [place] (1.001 - 1.035) 1.025 Urine Protein (NEGATIVE [...] Retractile mesenteritis 3. 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 Impression By: [...] nonemergent findings described above. Impression By: Sidney Rutledeg MD Results: labs reviewed, vital signs stable Free Text PE Notes Free Text PE Notes: 68 yr old female with acute abdominal pain. Suspected epiploic appendagitis suspected diverticulitis suspected enteritis suspected mesenteritis Plan clear liquids iv fluids zosyn analgesics antiemetics surgical consult at 0715 RPT #:[id number] END OF [id number] 14:33:00 [facility] ([facility] EMERGENCY PROVIDER REPORT REPORT#:[id number] REPORT STATUS: Signed DATE:02/02/19 TIME: 1433 PATIENT: DANIELLE MARTINEZ UNIT #: [id number] [facility] 68 SEX: F PCP PHYS: Reagan [...] % (Auto) (16 - 50 %) 22.2 [place] % (Auto) (0.0 - 13.0 %) 8.3 [...] pH (4.6 - 8.0) 5.0 Ur Specific [place] (1.001 - 1.035) 1.025 Urine Protein (NEGATIVE [...] described above. Impression By: Sidney Rutledge MD Lab Imaging Statement Laboratory radiographic [...] MDM )( Re-Evaluation/Progress #1 Time of Re-Eval 1714 )( Re-Eval Status Unchanged Re-Eval Abdomen Tenderness, Guarding ED Course Medication(s) Ordered Medication(s) Ordered: Central Nervous System Agents Sig/Roro Start time Last Medication Dose Route Stop Time Status Admin Morphine Sulfate 3 MG X1ED STA 02/02 1707 DC / IV 02/02 1708 1712 Morphine Sulfate 3 MG X1ED STA 02/02 1434 DC 04/ IV 04/ 1435 1439 Electrolytic, Caloric, And Kwadwo Sig/Roro Start time Last Medication Dose Route Stop Time Status Admin Sodium Chloride 1,000 ML X1ED STA 02/02 1434 DC 04/09 IV 04/ 1533 1439 Gastrointestinal Drugs Sig/Roro Start time Last Medication Dose Route Stop Time Status Admin Ondansetron HCl 4 MG X1ED STA 02/02 1434 DC 04/09 IV 04/ 1435 1439 Consultation Consultation Referral/Consult Name Salvador Hensley MD Call Returned Call returned Infant Nanny Will see patient, Agrees with eval, Agrees [...] Physician Name Krysta Villarreal MD Request Time 171 Request Date 02/02/19 )( Admission Accepts Yes [...] Barney Vang on 02/02/19 at 1441 at 5575 RPT #:[id number] END OF [id number]:26:[id number] [place] [address] PATIENT NAME: DANIELLE MARTINEZ ADMIT DATE: 02/02/19 ACCOUNT NO: [id number] ROOM NO: [facility] AGE: 68 REPORT TYPE: ELECTROCARDIOGRAM SEX: F : 52 ADMITTING PHYSICIAN:Krysta Villarreal MD ATTENDING PHYSICIAN:Krysta Villarreal MD Order: [id number] Test Reason : EPIGATRIC PAIN Test Date/Time [...] ECGs available Confirmed by MD WILIAM, YONATAN ([id number]) on 02/11/2019 8:01:36 AM Referred By: Self Referred Confirmed by:YONATAN SWAIN MD at 0806 PATIENT NAME: DANIELLE MARTINEZ
[2024-09-19] MEDS ORDERED: MORPHINE 4 MG/ML SYR ONE (01:07)
[2024-09-19] MEDS ORDERED: ONDANSETRON 4 MG/2 ML VIAL ONE ×2 (01:07→02:28)
[2024-09-19 01:11] LABS: Absolute Basophils 0.1 K/uL (0-0.5); Absolute Eosinophils 0.4 K/uL (0-0.5); Absolute Lymphocytes (CBC) 3.3 K/uL (0.7-4.9); Absolute Monocytes 0.7 K/uL (0.1-1.3); Absolute Neutrophil 3.5 K/uL (1.8-8.0); Basophils % 0.7 % (0-1.3); Eosinophils % 4.4 % (0-4.4); Hematocrit 37.9 % (36.0-45.0); Hemoglobin 12.5 g/dL (12.0-15.0); Lymphocytes % 41.2 % (15.3-44.8); MCH 29.4 pg (27.0-35.0); MCV 89.2 fL (80-100); MPV 9.5 fL (7.6-11.3); Monocytes % 8.9 % (3.3-12.3); Neutrophils % 44.8 % (41.7-73.7); Nucleated Red Blood Cells % 0.1 % (0-0); Platelets 231 thou/uL (152-406); RBC Red Blood Cell Count 4.25 M/uL (3.86-4.86); Red Cell Distribution Width 14.2 % (12.1-15.2)
[2024-09-19 01:23] LABS: Specific Gravity 1.014 (1.005-1.030); Sqamous Epithelial <5 /HPF (None Seen); Urine Bacteria None Seen /HPF (<20); Urine Bilirubin NEGATIVE (Negative); Urine Blood Negative (Negative); Urine Clarity Clear (Clear); Urine Color Colorless (Yellow); Urine Culture Reflex Order NOT NEEDED; Urine Glucose NEGATIVE (Negative); Urine Ketones NEGATIVE (Negative); Urine Microscopic Reflex YN ORDER UMIC; Urine Mucus Slight /HPF (None Seen); Urine Nitrite NEGATIVE (Negative); Urine Protein NEGATIVE (Negative); Urine RBC <5 /HPF (None Seen); Urine Urobilinogen Normal (Normal); Urine WBC <5 /HPF (<5); Urine pH 6.5 (5.0-7.0)
[2024-09-19 01:27] LABS: Albumin 3.4 g/dL (3.4-5.0); Albumin/Globulin Ratio 0.9 (1.1-1.8); Anion Gap 7.6 mEq/L (5.0-15.0); Bilirubin Total 0.3 mg/dL (0.2-1.0); Globulin 3.9 g/dL (2.3-3.5); Potassium 3.6 mEq/L (3.5-5.1); Protein, Total 7.3 g/dL (6.4-8.2)
--- NOTE | 2024-09-19 03:31 | ER ---
Nurse's Notes [facility] Name: Sapphire Martinez Age: 74 yrs Sex: Female : 1950 Arrival Date: 09/19/2024 Time: 00:12 Bed 7 Private MD: Diagnosis: Abdominal pain, unspecified Presentation: 09/19 00:33 Chief complaint: Patient states: I have had this pain in my stomach here (LLQ) that has bm8 been coming and going since Friday, but today it just wont go away. Coronavirus screen: Vaccine status: Patient reports receiving the 2nd dose of the covid vaccine. Ebola Screen: Patient negative for fever greater than or equal to 101.5 degrees Fahrenheit, and additional compatible Ebola Virus Disease symptoms Patient denies exposure to infectious person. Patient denies travel to an Ebola-affected area in the 21 days before illness onset. No symptoms or risks identified at this time. Initial Sepsis Screen: Does the patient meet any 2 criteria? No. Patient's initial sepsis screen is negative. Does the patient have a suspected source of infection? No. Patient's initial sepsis screen is negative. Risk Assessment: Do you want to hurt yourself or someone else? Patient reports no desire to harm self or others. Onset of symptoms was September 11, 2024. 00:33 Method Of Arrival: Ambulatory bm8 00:33 Acuity: TONY 3 bm8 Triage Assessment: 00:58 General: Appears in no apparent distress. uncomfortable, Behavior is calm, cooperative, bm8 appropriate for age. Pain: Complains of pain in left lower quadrant, left femoral area, left inguinal area and left iliac crest Pain currently is 6 out of 10 on a pain scale. Quality of pain is described as crampy, pressure. EENT: No deficits noted. No signs and/or symptoms were reported regarding the EENT system. Neuro: No deficits noted. Level of Consciousness is awake, alert, obeys commands, Oriented to person, place, time, situation, Appropriate for age. Cardiovascular: Denies chest pain, Capillary refill < 3 seconds in bilateral fingers Patient's skin is warm and dry. Respiratory: Airway is patent Respiratory effort is even, unlabored, Respiratory pattern is regular, symmetrical, Breath sounds are clear bilaterally. GI: Abdomen is round non-distended, Abdomen is tender to palpation in left lower quadrant Reports lower abdominal pain, Pain is 6 out of 10 on a pain scale. : No signs and/or symptoms were reported regarding the genitourinary system. Derm: No signs and/or symptoms reported regarding the dermatologic system. Musculoskeletal: No deficits noted. No signs and/or symptoms reported regarding the musculoskeletal system. Historical: - Allergies: 00:58 Advil; bm8 00:58 Aleve; bm8 - Home Meds: 00:58 Metformin Oral [Active]; aspirin 81 mg Oral TbEC [Active]; atorvastatin Oral [Active]; bm8 cetirizine 5 mg Oral tablet [Active]; enalapril maleate Oral [Active]; gabapentin Oral [Active]; Omeprazole Oral [Active]; paroxetine Oral [Active]; - PMHx: 00:58 Arthritis; Colitis; Diabetes - NIDDM; gastritis; Hyperlipidemia; Hypertension; bm8 - PSHx: 00:58 pancreas; bm8 - Immunization history:: Adult Immunizations up to date. - Infectious Disease History:: Denies. - Family history:: not pertinent. - Social history:: Smoking status: Patient denies any tobacco usage or history of. Patient/guardian denies using alcohol, street drugs. Screenin:03 [facility] ED Fall Risk Assessment (Adult) History of falling in the last 3 months, bm8 including since admission No falls in past 3 months (0 pts) Confusion or Disorientation No (0 pts) Intoxicated or Sedated No (0 pts) Impaired Gait Yes (1 pt) Mobility Assist Device Used No (0 pt) Altered Elimination No (0 pt) Score/Fall Risk Level 0 - 2 = Low Risk Oriented to surroundings, Maintained a safe environment, Educated pt \T\ family on fall prevention, incl call for assistance when getting out of bed, Assessed \T\ reinforced patient's understanding of fall precautions, Hourly rounding (assess needs \T\ fall precautionary measures) done, Used ambulatory aids as needed (educated on \T\ assisted with), Used gait belt as appropriate. Abuse screen: Denies threats or abuse. Nutritional screening: No deficits noted. Tuberculosis screening: No symptoms or risk factors identified. Assessment: 01:03 Reassessment: see triage assessment. bm8 01:56 Reassessment: Patient appears in no apparent distress at this time. Patient and/or bm8 family updated on plan of care and expected duration. Pain level reassessed. Patient is alert, oriented x 3, equal unlabored respirations, skin warm/dry/pink. Reassessment: Patient states feeling better. Pain: Pain currently is 2 out of 10 on a pain scale. 02:37 Reassessment: Patient appears in no apparent distress at this time. Patient and/or bm8 family updated on plan of care and expected duration. Pain level reassessed. Patient is alert, oriented x 3, equal unlabored respirations, skin warm/dry/pink. pt is resting with eyes closed breathing is even unlabored with symmetrical rise and fall of chest. Patient states feeling better. 03:48 Reassessment: Patient appears in no apparent distress at this time. Patient and/or bm8 family updated on plan of care and expected duration. Pain level reassessed. Patient is alert, oriented x 3, equal unlabored respirations, skin warm/dry/pink. Patient denies pain at this time. Patient states feeling better. Patient states symptoms have improved. Vital Signs: 00:33 BP 145 / 85; Pulse 65; Resp 17; Temp 97.7; Pulse Ox 99% ; Weight 77.11 kg; Height 5 ft. bm8 0 in. ; Pain 6/10; 01:30 BP 133 / 70; Pulse 64; Resp 18; Temp 97.7; Pulse Ox 93% ; Pain 2/10; bm8 02:38 BP 145 / 79; Pulse 55; Resp 16; Temp 98; Pulse Ox 93% ; Pain 2/10; bm8 03:48 BP 143 / 76; Pulse 57; Resp 18; Temp 98.2; Pulse Ox 94% on R/A; Pain 0/10; bm8 00:33 Body Mass Index 33.20 (77.11 kg, 152.4 cm) bm8 00:33 Pain Scale: Adult bm8 01:30 Pain Scale: Adult bm8 02:38 Pain Scale: Adult bm8 03:48 Pain Scale: Adult bm8 [place] Coma Score: 01:03 Eye Response: spontaneous(4). Motor Response: obeys commands(6). Verbal Response: bm8 oriented(5). Total: 15. 01:30 Eye Response: spontaneous(4). Motor Response: obeys commands(6). Verbal Response: bm8 oriented(5). Total: 15. 02:38 Eye Response: spontaneous(4). Motor Response: obeys commands(6). Verbal Response: bm8 oriented(5). Total: 15. 03:48 Eye Response: spontaneous(4). Motor Response: obeys commands(6). Verbal Response: bm8 oriented(5). Total: 15. ED Course: 00:15 Patient arrived in ED. ra3 00:15 Emery Gupta MD is Attending Physician. rt 00:36 Arron Reece RN is Primary Nurse. bm8 00:58 Triage completed. bm8 00:58 Arm band placed on right wrist. bm8 01:03 Patient has correct armband on for positive identification. Bed in low position. Call bm8 light in reach. Side rails up X 1. Client placed on continuous cardiac and pulse oximetry monitoring. NIBP monitoring applied. Pulse ox on. NIBP on. Door closed. Noise minimized. Warm blanket given. Pillow given. Verbal reassurance given. Head of bed elevated. 01:03 No provider procedures requiring assistance completed. Initial lab(s) drawn, by ED bm8 staff, sent to lab. Urine collected: clean catch specimen, clear. Inserted saline lock: 20 gauge in right antecubital area, using aseptic technique. Blood collected. Flushed with 10 mL NS. Patient maintains SpO2 saturation greater than 95% on room air. 01:51 CT Abd/Pelvis - IV Contrast Only In Process Unspecified. EDMS 03:48 Provided Education on: post er care. bm8 03:48 IV discontinued, intact, bleeding controlled, No redness/swelling at site. Pressure bm8 dressing applied. Administered Medications: 01:21 Drug: Ondansetron IVP 4 mg IVP once; over 2 minutes Route: IVP; Site: right antecubital;bm8 01:58 Follow up: Response: No adverse reaction bm8 01:22 Drug: morphine IVP or IV 4 mg IVP once over 4 mins Route: IVP; Infused Over: 4 mins; bm8 Site: right antecubital; 01:58 Follow up: Response: No adverse reaction bm8 02:39 Drug: Ondansetron IVP 4 mg IVP once; over 2 minutes Route: IVP; Site: right antecubital;bm8 03:49 Follow up: Response: No adverse reaction bm8 Medication: 01:03 VIS not applicable for this client. bm8 Outcome: 03:30 Discharge ordered by . rt 03:48 Discharged to home via wheelchair, bm8 03:48 Condition: stable 03:48 Discharge instructions given to patient, family, Instructed on discharge instructions, follow up and referral plans. safety practices, Demonstrated understanding of instructions, follow-up care, medications, 03:50 Patient left the ED. bm8 Signatures: Dispatcher [employer] EDMS Emery Gupta MD MD rt [place], Ruby ra Arron Reece, RN RN bm8
--- NOTE | 2024-09-19 03:31 | EDPHYS ---
Physician Documentation [facility] Name: Sapphire Martinez Age: 74 yrs Sex: Female : 1950 Arrival Date: 09/19/2024 Time: 00:12 Bed 7 Private MD: ED Physician Emery Gupta HPI: 09/19 00:58 This 74 yrs old Female presents to ER via Ambulatory with complaints of Pelvic rt Pain. 00:58 Patient presents to the ED with a left lower quadrant pain for about 1 day. States that rt she had the symptoms previously that resolved spontaneously and she sought no medical attention for these. The patient states the symptoms did not resolve like it did previously prompting her to come to the ED for further evaluation. Denies nausea, vomiting, diarrhea, constipation, melena, hematochezia. Denies other acute complaints, symptoms are moderate in severity, no other aggravating alleviating factors.. Historical: - Allergies: 00:58 Advil; bm8 00:58 Aleve; bm8 - Home Meds: 00:58 Metformin Oral [Active]; aspirin 81 mg Oral TbEC [Active]; atorvastatin Oral [Active]; bm8 cetirizine 5 mg Oral tablet [Active]; enalapril maleate Oral [Active]; gabapentin Oral [Active]; Omeprazole Oral [Active]; paroxetine Oral [Active]; - PMHx: 00:58 Arthritis; Colitis; Diabetes - NIDDM; gastritis; Hyperlipidemia; Hypertension; bm8 - PSHx: 00:58 pancreas; bm8 - Immunization history:: Adult Immunizations up to date. - Infectious Disease History:: Denies. - Family history:: not pertinent. - Social history:: Smoking status: Patient denies any tobacco usage or history of. Patient/guardian denies using alcohol, street drugs. ROS: 00:58 Constitutional: Negative for fever, chills, and weight loss, Eyes: Negative for injury, rt pain, redness, and discharge, Cardiovascular: Negative for chest pain, palpitations, and edema, Respiratory: Negative for shortness of breath, cough, wheezing, and pleuritic chest pain, MS/Extremity: Negative for injury and deformity, Skin: Negative for injury, rash, and discoloration, Neuro: Negative for headache, weakness, numbness, tingling, and seizure, 00:58 Abdomen/GI: Positive for abdominal pain, Negative for nausea, vomiting, and diarrhea, Exam: 00:58 Abdomen/GI: rt 01:03 Constitutional: This is a well developed, well nourished patient who is awake, alert, rt and in no acute distress. Head/Face: Normocephalic, atraumatic. Chest/axilla: Normal chest wall appearance and motion. Nontender with no deformity. No lesions are appreciated. Cardiovascular: Regular rate and rhythm with a normal S1 and S2. No gallops, murmurs, or rubs. Normal PMI, no JVD. No pulse deficits. Respiratory: Lungs have equal breath sounds bilaterally, clear to auscultation and percussion. No rales, rhonchi or wheezes noted. No increased work of breathing, no retractions or nasal flaring. Skin: Warm, dry with normal turgor. Normal color with no rashes, no lesions, and no evidence of cellulitis. MS/ Extremity: Pulses equal, no cyanosis. Neurovascular intact. Full, normal range of motion. Neuro: Awake and alert, GCS 15, oriented to person, place, time, and situation. Cranial nerves II-XII grossly intact. Motor strength 5/5 in all extremities. Sensory grossly intact. Cerebellar exam normal. Normal gait. 01:03 Abdomen/GI: Tenderness of the left lower quadrant with no guarding, rebound, distention, Vital Signs: 00:33 BP 145 / 85; Pulse 65; Resp 17; Temp 97.7; Pulse Ox 99% ; Weight 77.11 kg; Height 5 ft. bm8 0 in. ; Pain 6/10; 01:30 BP 133 / 70; Pulse 64; Resp 18; Temp 97.7; Pulse Ox 93% ; Pain 2/10; bm8 02:38 BP 145 / 79; Pulse 55; Resp 16; Temp 98; Pulse Ox 93% ; Pain 2/10; bm8 03:48 BP 143 / 76; Pulse 57; Resp 18; Temp 98.2; Pulse Ox 94% on R/A; Pain 0/10; bm8 00:33 Body Mass Index 33.20 (77.11 kg, 152.4 cm) bm8 00:33 Pain Scale: Adult bm8 01:30 Pain Scale: Adult bm8 02:38 Pain Scale: Adult bm8 03:48 Pain Scale: Adult bm8 [place] Coma Score: 01:03 Eye Response: spontaneous(4). Motor Response: obeys commands(6). Verbal Response: bm8 oriented(5). Total: 15. 01:30 Eye Response: spontaneous(4). Motor Response: obeys commands(6). Verbal Response: bm8 oriented(5). Total: 15. 02:38 Eye Response: spontaneous(4). Motor Response: obeys commands(6). Verbal Response: bm8 oriented(5). Total: 15. 03:48 Eye Response: spontaneous(4). Motor Response: obeys commands(6). Verbal Response: bm8 oriented(5). Total: 15. MDM: 00:42 Medical Screening Exam initiated rt 03:56 Differential Diagnosis Nonspecific abdominal pain, diverticulitis, pyelonephritis, rt kidney stone, colitis. Data reviewed: vital signs, nurses notes, lab test result(s), radiologic studies. I considered the following discharge prescriptions or medication management in the emergency department Medications were administered in the Emergency Department. See MAR. Independent interpretation of the following test(s) in the Emergency Department CT Scan: My interpretation is No bowel obstruction syndrome interpretation of CT scan images. Care significantly affected by the following chronic conditions: Diabetes. Counseling: I had a detailed discussion with the patient and/or guardian regarding the historical points, exam findings, and any diagnostic results supporting the discharge/admit diagnosis, lab results, radiology results, the need for outpatient follow up. Response to treatment: the patient's symptoms have markedly improved after treatment. 09/19 00:58 Order name: CBC with Diff; Complete Time: : rt 09/19 00:58 Order name: CMP; Complete Time: : rt 09/19 00:58 Order name: Lipase; Complete Time: rt 09/19 00:58 Order name: Urinalysis w/ reflexes; Complete Time: rt 09/19 00:58 Order name: CT Abd/Pelvis - IV Contrast Only rt 09/19 00:58 Order name: IV Saline Lock; Complete Time: 01:06 rt 09/19 00:58 Order name: Labs collected and sent; Complete Time: 01:06 rt Administered Medications: 01:21 Drug: Ondansetron IVP 4 mg IVP once; over 2 minutes Route: IVP; Site: right antecubital;bm8 01:58 Follow up: Response: No adverse reaction bm8 01:22 Drug: morphine IVP or IV 4 mg IVP once over 4 mins Route: IVP; Infused Over: 4 mins; bm8 Site: right antecubital; 01:58 Follow up: Response: No adverse reaction bm8 02:39 Drug: Ondansetron IVP 4 mg IVP once; over 2 minutes Route: IVP; Site: right antecubital;bm8 03:49 Follow up: Response: No adverse reaction bm8 Disposition Summary: 09/19/24 03:30 Discharge Ordered Notes: Location: Home rt Problem: new rt Symptoms: have improved rt Condition: Stable rt Diagnosis - Abdominal pain, unspecified rt Followup: rt - With: Private Physician - When: 2 - 3 days - Reason: Discharge Instructions: - Discharge Summary Sheet rt - Abdominal Pain, Adult rt Forms: - Medication Reconciliation Form rt - Antibiotic Education rt - Prescription Opioid Use rt - Patient Portal Instructions rt - Leadership Thank You Letter rt Signatures: Dispatcher [employer] Emery Nguyen MD MD rt Arron Reece, RN RN bm8
--- NOTE | 2024-09-19 03:34 | RAD REPORT ---
CLINICAL HISTORY: Abdominal pain. COMPARISON: CT Chest Abdomen Pelvis 06/04/2024. TECHNIQUE: CT ABDOMEN PELVIS WITH IV CONTRAST on 09/19/2024 12:58 AM MUTUEL CLERK This exam was performed according to our departmental dose-optimization program, which includes autom ated exposure control, adjustment of the mA and/or kV according to patient size and/or use of iterative reconstruction technique. FINDINGS: Lower lungs are clear. Abdomen: The liver is normal in appearance. There is no biliary dilatation. Gallbladder is normal in appearance. There are postoperative changes of the pancreatic tail. Spleen is small in size. Adrenal glands are normal. There is mild right renal atrophy and severe left renal atrophy. There is extensive scarring within both kidneys. Abdominal aorta is normal in course and caliber without aneurysm. There is no free air. There is no r etroperitoneal adenopathy. Pelvis: There is no bowel obstruction. Urinary bladder is unremarkable. There is no free fluid. Hyste rectomy was performed. Appendix is normal. Skeleton: There are no acute osseous findings. No suspicious bony lesions. IMPRESSION: No definite acute process. Electronically signed by: Nnamdi Cox MD 09/19/2024 02:47 AM MUTUEL CLERK RP Due to temporary technical issues with the PACS/[employer] reporting system, reports are being julianne d by the in-house radiologist without review as a courtesy to ensure prompt reporting the interpreting radiologist is fully responsible for the content of the report. Transcribed Date/Time: 09/19/2024 3:33 AM
[2024-09-19 06:13] VITALS: BP 143/76; TEMP 98.2; O2SAT 94
== END 2024-09-19 03:50 | disposition home or self-care (01) ==
LOC: ER 00:12
DX: R10.32 Left lower quadrant pain (principal); E11.9 Type 2 diabetes mellitus without complications; I10 Essential (primary) hypertension; Z79.82 Long term (current) use of aspirin
CPT/HCPCS: 85025; 81001; 36415; 83690; 80053; 74177; 96375; 96374; 99284; Q9967; J2405 ×2

== ENCOUNTER 2024-12-06 18:11 | Observation (INO) | payer OTHER ==
--- OUTSIDE RECORDS SUMMARY | 2024-12-06 18:38 | XMS REPORT | Continuity of Care Document ---
Author Name Unknown Address [address] [facility] [address] [place] [address] [facility] thconnect Address [address] [facility] [place] [address] Care Team Providers Care Natural Resource Manager Name Role Phone KEITH HERMAN Primary Care Physician Unav ailable PETRONA SAVAGE Attending Clinician Unavailable PRETTY ERNANDEZ Attending Clinician Unavailable PRETTY ERNANDEZ Attending Clinician Unavailable Petrona Savage MD Attending Clinician [phone] FABIAN GARCIA Attending Clinician Unavailable MAURICIO_GCBZW_Doreen_S Attending Clinician Unavaila NICHOLE Purcell Attending Clinician Unav ailable NICHOLE PERSAUD Attending Clinician Unav ailAbdelrahman Damon RN Attending Clinician Unavail able KEISHA EAST Attending Clinician Unavailable Maxi Goldberg DO Attending Clinician [phone] Keisha East DO Attending Clinician [phone] Radiology Attending Clinician Unavailable RADIOLOGY Attending Clinician Unavailable CHRISTINA LOU Attending Clinician Unavailable BETSEY BOSS Attending Clinician Unavailable Betsey Boss NP Attending Clinician [phone] SALLY HODGE Attending Clinician Unav ailable Doctor Unassigned, Luck Attending Clinician U navailTANNER Kim Attending Clinician Unavailable SHANE KOHLER Attending Clinician Unavailable MONA MOSS Attending Clinician UnavailSOLOMON Berrios Attending Clinician Unavailable Yana ROONEY, Solomon Huang Attending Clinician [phone] ALICIA FARRELL Attending Clinician Unavailable Moira ROONEY, Pretty Del Castillo Attending Clinician [phone] Unassigned, Cath/Ep Attending Clinician UnavailMAGGI Bradford Attending Clinician Unavailable Maggi Calloway MD Attending Clinician [phone] Lila Alvarado MD Attending Clinician [phone] Lisette Peck RN Attending Clinician Unavailable KARTHIK HUDDLESTON Attending Clinician Unavailable Destiney Santillan S Attending Clinician [phone] Karthik Huddleston MD Attending Clinician [phone] [email or web address]_S Admitting Clinician Unavaila KEISHA Oliver Admitting Clinician Unavailable Keisha East DO Admitting Clinician [phone] CHRISTINA LOU Admitting Clinician Unavailable BETSEY BOSS Admitting Clinician Unavailable SALLY HODGE Admitting Clinician Unav ailable SOLOMON MILLAN Admitting Clinician Unavailable PETRONA SAVAGE Admitting Clinician Unavailable Petrona Savage MD Admitting Clinician [phone] Payers Payer Name Policy Type Policy Number Effective Date Expirati on Date Source [employer] HMO SNP [id number] 2023 00:00:00 [facility] DUAL COMP HMO D SNP [id number] 2021 00:00:00 MEDICAID [place] [id number] 2023 00:00:00 [facility] (MEDICARE REPLACEMENT/ADVANTA GE - HMO) [id number] [facility] DUAL COMPLETE - DUAL ELIGIBLE - [facility] (MEDICARE-MEDICAID REPLACEMENT HMO) [id number] Problems Condition Name Condition Details Condition Category Status Onset Date Resolution Date Last Treatment Date Treating Clinician Comments Source Acute abdominal pain Acute abdominal pain Disease Active 2022-10 00:00: 00 [facility] Diabetes mellitus Diabetes Mellitus Problem Active 06-25 00:00: 00 [facility] Hyperchole sterolemia Hyperchole sterolemia Problem Active 06-25 00:00: 00 [facility] Cystocele Cystocele Problem Active 06-25 00:00: 00 [facility] 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 of Vaginal Vault after Hysterecto my Problem Active 06-25 00:00: 00 [facility] Atrophy of skeletal muscle of pelvis Atrophy of Skeletal Muscle of Pelvis Problem Active 06-25 00:00: 00 [facility] Female stress incontinen ce Female Stress Incontinen ce Problem Active 06-25 00:00: 00 [facility] Atrophy of vagina Atrophy of Vagina Problem Active 06-25 00:00: 00 [facility] Heartburn Heartburn Problem Active 06-25 00:00: 00 [facility] Incontinen ce of feces Incontinen ce of Feces Problem Active 06-25 00:00: 00 [facility] Urge incontinen ce of urine Urge Incontinen ce of Urine Problem Active 06-25 00:00: 00 [facility] Left lower quadrant pain Left Lower Quadrant Pain Problem Active 06-25 00:00: 00 [facility] Hyperglyce gaudencio due to type 2 diabetes mellitus Hyperglyce gaudencio Due to Type 2 Diabetes Mellitus Problem Active 06-25 00:00: 00 [facility] Abnormal nuclear cardiac imaging test Abnormal nuclear cardiac imaging test Disease Active 2021-10 00:00: 00 Overview: Formattin g of this note might be different from the original. Added automatic ally from request for surgery [id number] [facility] PAF (paroxysma l atrial fibrillati on) PAF (paroxysma l atrial fibrillati on) Disease Active 2021-10 00:00: 00 Overview: Formattin g of this note might be different from the original. Added automatic ally from request for surgery [id number] [facility] Reflux gastritis Reflux gastritis Disease Active 2021-10 00:00: 00 [facility] Primary hypertensi on Primary hypertensi on Disease Active 2021-10 0- 00:00: 00 [facility] Other hyperlipid emia Other hyperlipid emia Disease Active 2021-10 0- 00:00: 00 [facility] Elevated brain natriureti c peptide (BNP) level Elevated brain natriureti c peptide (BNP) level Disease Active 2021-10 0 00:00: 00 [facility] Type 2 diabetes mellitus without complicati on, without long-term current use of insulin Type 2 diabetes mellitus without complicati on, without long-term current use of insulin Disease Active 2021-10 0- 00:00: 00 [facility] Obesity (BMI 30-39.9) Obesity (BMI 30-39.9) Disease Active 2021-10 0 00:00: 00 [facility] Ascending aorta dilatation Ascending aorta dilatation Disease Active 2021-10 0 00:00: 00 [facility] Anticoagul ant long-term use Anticoagul ant long-term use Disease Active 2021-10 0 00:00: 00 [facility] Chest pain, unspecifie d type Chest pain, unspecifie d type Disease Active 2021-10 0-04 00:00: 00 [facility] No known active problems No known active problems Disease [facility] Allergies, Adverse Reactions, Alerts Allergy Name Allergy Type Status Severity Reaction(s) Onset Date Inactive Date Treating Clinician Comments Source ENALAPRI L DRUG INGREDI Active COUGH 2021-10 00:00: 00 [facility] Enalapri l Propensi ty to adverse reaction s Active Cough 2021-10 0 00:00: 00 [facility] n Propensi ty to adverse reaction to drug Active -19 00:00: 00 Toney Renner Advil - Oral Propensi ty to adverse reaction to drug Active 3-28 00:00: 00 Toney Renner Ibuprofe n Propensi ty to adverse reaction s Active Rash 1- 00:00: 00 [facility] IBUPROFE N DRUG INGREDI Active Rash 1- 00:00: 00 [facility] ibuprofe n DA Active U - 00:00: 00 [facility] NO KNOWN ALLERGIE S Drug Class Active [facility] Social History Social Habit Start Date Stop Date Quantity Comments Source Gender identity [facility] 2024-01-02 00:00:00 2024-01-02 00:00:00 Lifetime non-drinker (finding) [facility] History of Social function 2024-01-02 00:00:00 2024-01-02 00:00:00 [facility] Exposure to SARS-CoV-2 (event) 2023-03-01 00:00:00 2023-03-11 19:20:00 Not sure [facility] History SDOH Food Worry 2022-08-05 00:00:00 2022-08-05 00:00:00 1 [facility] History SDOH Food Scarcity 2022-08-05 00:00:00 2022-08-05 00:00:00 1 [facility] History SDOH Transport Med 2022-08-05 00:00:00 2022-08-05 00:00:00 2 [facility] History SDOH Transport Non-Med 2022-08-05 00:00:00 2022-08-05 00:00:00 2 [facility] Tobacco use and exposure 2021-10-29 00:00:00 2021-10-29 00:00:00 Smokeless tobacco non-user [facility] Sex Assigned At 1950 00:00:00 1950 00:00:00 [facility] Smoking Status Start Date Stop Date Source Unknown if [facility] smoked [facility] Never smoked tobacco [facility] Medications Ordered Medication Name Filled Medication Name Start Date Stop Date Current Medication? Ordering Clinician Indication Dosage Frequency Signature (SIG) Comments Components Source triamcinolo ne acetonide 0.1 % topical cream 10-29 00:00: 00 Yes 1% Toney Renner hydroxyzine HCl 25 mg tablet 10-29 00:00: 00 Yes 1mg Toney Renner amoxicillin 500 mg capsule 2023-10 00:00: 00 [...] 2023-10 00:00: 00 Yes 1mg Toney Renner sucralfate 100 mg/mL oral suspension 07-02 00:00: 00 Yes mg/mL Toney Renner metformin 1,000 mg tablet 06-19 00:00: 00 Yes 1mg Toney Renner atorvastati n 40 mg tablet 06-11 00:00: 00 Yes mg Toney Renner famotidine 20 mg tablet 2024-0 8-16 00:00: 00 Yes mg Toney Renner amlodipine 5 mg tablet 0 8-16 00:00: 00 Yes 1mg Toney Renner pantoprazol e 40 mg tablet,merna yed release 0 -16 00:00: 00 Yes 1mg Toney Renner Januvia 100 mg tablet 0 -16 00:00: 00 Yes 1mg Toney Renner glipizide 10 mg tablet 0 -16 00:00: 00 Yes 1mg Toney Renner Eliquis 5 mg tablet 0 16 00:00: 00 Yes 1mg Toney Renner gabapentin 100 mg capsule 0 -16 00:00: 00 Yes 1mg Toney Renner amlodipine 5 mg tablet 0 05-24 00:00: 00 Yes 1mg Toney Renner sucralfate 100 mg/mL oral suspension 0 03-07 00:00: 00 Yes mg/mL Toney Renner Eliquis 5 mg tablet 0 03-07 00:00: 00 Yes 1mg Toney Renner CARAFATE 1 GM/10ML SUSP 03-07 00:00: 00 Yes Toney Renner atorvastati n 40 mg tablet 0 - 00:00: 00 Yes mg Toney Renner amlodipine 5 mg tablet 0 03-04 00:00: 00 Yes 1mg Toney Renner pantoprazol e 40 mg tablet,merna yed release 03-04 00:00: 00 Yes 1mg Toney Renner Januvia 100 mg tablet 0 - 00:00: 00 Yes 1mg Toney Renner Eliquis 5 mg tablet 0 - 00:00: 00 Yes 1mg Toney Renner glipizide 10 mg tablet 0 - 00:00: 00 Yes 1mg Toney Renner gabapentin 100 mg capsule 0 - 00:00: 00 Yes 1mg Toney Renner pantoprazol e 40 mg tablet,merna yed release 0 - 00:00: 00 Yes 1mg Toney Renner Tylenol Extra Strength 500 mg tablet - 00:00: 00 Yes 1mg Toney Renner azithromyci n 250 mg tablet - 00:00: 00 Yes 1mg Toney Renner AZITHROMYCI N 250MG 01-26 00:00: 00 Yes 250 Toney Renner TAKE 1 TABLET BY MOUTH NIGHTLY 2- 00:00: 00 Yes 40 Toney Renner TAKE 1 CAPSULE AT BEDTIME. 11-27 00:00: 00 Yes 100 Toney Renner TAKE 1 TABLET DAILY. 11-27 00:00: 00 Yes 100 Toney Renner TAKE 1 TABLET TWICE A DAY 30 MINUTES BEFORE MEALS 11-27 00:00: 00 Yes 10 Toney Renner metformin 1,000 mg tablet 11-27 00:00: 00 Yes 1000mg Toney Renner GLIPIZIDE XL 10MG 11-27 00:00: 00 Yes Toney Renner AMLODIPINE 5MG 11-27 00:00: 00 Yes Toney Renner TAKE 10 ML 4 TIMES DAILY 11-27 00:00: 00 03-10 00:00 :00 No 110 Toney Renner famotidine 20 mg tablet 11-13 00:00: 00 Yes mg Toney Renner RINSE MOUTH WITH 15ML (1 CAPFUL) FOR 30 SECONDS AM AND PM AFTER TOOTHBRUSHI NG. EXPECTORATE AFTER RINSING, DO NOT SWALLOW 11-10 00:00: 00 03-10 00:00 :00 No 12 [...] mg by mouth 2 (two) times daily. [facility] atorvastati n 40 mg tablet 2022-10 11:38: 53 Yes 40mg Take 40 mg by mouth at bedtime. [facility] SITagliptin 25 mg tablet 2022-10 11:38: 53 Yes 25mg Take 25 mg by mouth daily. [facility] amLODIPine 5 mg tablet 2022-10 11:38: 53 Yes 5mg Take 5 mg by mouth daily. [facility] glipiZIDE 10 mg tablet 2022-10 11:38: 53 Yes 10mg Take 10 mg by mouth 2 (two) times daily. [facility] metFORMIN 1,000 mg tablet 2022-10 11:38: 53 Yes 1000mg Take 1,000 mg by mouth 2 (two) times daily with meals. [facility] omeprazole 40 mg capsule 2022-10 11:38: 53 Yes 40mg Take 1 capsule by mouth daily. [facility] AMOXICILLIN /CLAVULANAT E POTASSIUM 875-125 MG TABS 2022-10 00:00: 00 Yes Toney Renner TAKE 1 TABLET BY MOUTH EVERY 6 (SIX) HOURS NEEDED FOR PAIN (SCALE 4-6) FOR UP TO 7 DAYS. 2022-10 00:00: 00 Yes Toney Renner amoxicillin -clavulanat e (AUGMENTIN) 875-125 mg per tablet 2022-10 00:00: 00 09-16 05:59 :00 No [id number] 1{tbl} Take 1 tablet by mouth 2 (two) times daily for 10 days. [facility] traMADoL 50 mg tablet 2022-10 00:00: 00 09-13 05:59 :00 No [id number] 50mg Take 1 tablet by mouth every 6 (six) hours as needed for Pain (scale 4-6) for up to 7 days. Indication s: acute pain [facility] morpHINE (2 mg/mL) injection 2 mg 2022-10 04:22: 54 Yes 2mg 2 mg, Slow IV Push, Q6HPRN, Starting on Fri09/03/23 at 2222, Until Discontinu ed, Routine, Pain (scale 7-10), Pain (scale 4-6) [facility] KCL (KLOR-CON M20) tablet 40 mEq 2022-10 20:00: 00 09-03 20:15 :00 No 40meq 40 mEq, Oral, ONCE, 1 dose, On Fri09/03/23 at 1400, Routine [facility] magnesium sulfate in water 2 gram/50 mL (4 %) infusion 2 g 2022-10 16:15: 00 09-03 16:47 :00 No 2g 2 g, IV Piggyback, Administer over 60 Minutes, ONCE, 1 dose, On Fri09/03/23 at 1015, Routine [facility] atorvastati n (LIPITOR) tablet 40 mg 2022-10 03:00: 00 Yes 40mg 40 mg, Oral, QHS, First dose on Fri09/02/23 at 2100, Until Discontinu ed, Routine [facility] butalbital- acetaminoph en-caff (ESGIC) 50-325-40 mg tablet 1 tablet 2022-10 00:08: 37 Yes 1{tbl} 1 tablet, Oral, Q6HPRN, Starting on Fri09/02/23 at 1808, Until Discontinu ed, Routine, Headache [facility] acetaminoph en (TYLENOL) tablet 650 mg 2022-10 00:08: 26 Yes 650mg 650 mg, Oral, Q6HPRN, Starting on Fri09/02/23 at 1808, Until Discontinu ed, Routine, Pain (scale 1-3), Temp > 38 C [facility] Sliding Scale Insulin - Lispro (HumaLOG) 2022-10 18:00: 00 Yes Subcutaneo us, TID MEALS+HS, First dose on Fri09/02/23 at 1200, Until Discontinu ed, Routine [facility] amLODIPine (NORVASC) tablet 5 mg 2022-10 15:00: 00 Yes 5mg 5 mg, Oral, DAILY, First dose on Fri09/02/23 at 0900, Until Discontinu ed, Routine [facility] glucagon (GLUCAGEN DIAGNOSTIC KIT) injection 1 mg 2022-10 14:48: 44 Yes 1mg 1 mg, Intramuscu lar, PRN, Starting on Fri09/02/23 at 0848, Until Discontinu ed, AUDRA, Blood Glucose < or = 70 mg/dL and patient is NPO, unable to swallow or has mental changes. [facility] dextrose 50 % in water (D50W) injection 25 mL 2022-10 14:48: 44 Yes 25mL 25 mL, Slow IV Push, PRN, Starting on Fri09/02/23 at 0848, Until Discontinu ed, AUDRA, Blood Glucose < or = 70 mg/dL and patient is NPO, unable to swallow or has mental status changes. [facility] docusate (COLACE) capsule 100 mg 2022-10 14:00: 00 Yes 100mg 100 mg, Oral, BID, First dose on Fri09/02/23 at 0800, Until Discontinu ed, Routine [facility] apixaban (ELIQUIS) tablet 5 mg 2022-10 14:00: 00 Yes 5mg 5 mg, Oral, BID, First dose on Fri09/02/23 at 0800, Until Discontinu ed, Routine
Indicatio ns: Non-Valvul ar Atrial Fibrillati on [facility] piperacilli n-tazobacta m (ZOSYN) 3.375 g [...] Abdominal< br>Duratio n of Therapy: 7 days [facility] piperacilli n-tazobacta m (ZOSYN) 3.375 g in NaCl 0.9% (NS) 100 mL MINI-BAG 2022-10 02:15: 00 09-02 03:09 :00 No 3.375g 3.375 g, IV Piggyback, ONCE, 1 dose, On Fri09/01/23 at 2015, Administer over 30 Minutes, 100 mL
Reas on for Anti-Infec tive: Documented Infection< br>Documen meet Infection Site: Abdominal< br>Duratio n of Therapy: 7 days [facility] lactated ringers IV infusion 1,000 mL 2022-10 01:30: 00 Yes 1000mL at 75 mL/hr, 1,000 mL, IV Infusion, CONTINUOUS , Starting on Fri09/01/23 at 1930, Until Discontinu ed, Routine [facility] ondansetron (ZOFRAN (PF)) injection 4 mg 2022-10 01:18: 14 Yes 4mg 4 mg, Slow IV Push, Q6HPRN, Starting on Fri09/01/23 at 1918, Until Discontinu ed, Routine, Nausea and Vomiting (N/V) [facility] morpHINE (2 mg/mL) injection 4 mg 2022-10 01:18: 10 09-03 01:17 :10 No 4mg 4 mg, Slow IV Push, Q4HPRN, Starting on Fri09/01/23 at 1918, Until Fri09/02/23 at 1917, Routine, Pain (scale 7-10) [facility] iopamidol (ISOVUE 370-500 mL) injection 100 mL 2022-10 00:45: 00 09-02 00:45 :00 No [id number] 100mL 100 mL, Intravenou s, ONCE, 1 dose, On Fri09/01/23 at 1845, Routine [facility] acetaminoph en ADULT (OFIRMEV) injection 1,000 mg 2022-10 23:45: 00 09-01 23:15 :00 No 1000mg 1,000 mg, IV Infusion, at 400 mL/hr Administer over 15 Minutes, ONCE, 1 dose, On Fri09/01/23 at 1745, Routine
Indicatio n: Non-periop erative Patient
Approved by: Per Policy (NPO Status) [facility] FENTanyl PF (SUBLIMAZE (PF)) injection 75 mcg 2022-10 23:00: 00 09-01 22:59 :00 No 75ug 75 mcg, Slow IV Push, ONCE, 1 dose, On Fri09/01/23 at 1700, AUDRA [facility] NaCl 0.9% (NS) bolus infusion 500 mL 2022-10 22:51: 00 09-02 01:25 :00 No 500mL at 999 mL/hr, 500 mL, IV Infusion, ONCE, 1 dose, On Fri09/01/23 at 1700, STAT [facility] ondansetron (ZOFRAN (PF)) injection 4 mg 2022-10 22:49: 00 09-01 22:59 :00 No 4mg 4 mg, Slow IV Push, ONCE, 1 dose, On Fri09/01/23 at 1700, AUDRA [facility] NaCl 0.9% (NS) bolus infusion 500 mL 2022-10 22:30: 00 09-01 22:59 :00 No 500mL at 999 mL/hr, 500 mL, IV Infusion, ONCE, 1 dose, On Fri09/01/23 at 1630, AUDRA [facility] atorvastati n 40 mg [...] 03-10 00:00 :00 No 40 Toney Renner PANTOPRAZOL [...] 06-22 06:00: 00 06-22 06:00 :00 No [id number] 100mL 100 mL, Intravenou s, ONCE, 1 dose, On 06/22/23 at 0100, Routine [facility] morpHINE (4 mg/mL) injection 4 mg 06-22 05:15: 00 06-22 04:44 :00 No 4mg 4 mg, Slow IV Push, ONCE, 1 dose, On 06/22/23 at 0015, Routine [facility] ondansetron (ZOFRAN (PF)) injection 4 mg 06-22 04:30: 00 06-22 04:43 :00 No 4mg 4 mg, Slow IV Push, ONCE, 1 dose, On 06/21/23 at 2330, AUDRA [facility] pantoprazol e (PROTONIX) EC tablet 40 mg 06-22 03:30: 00 Yes 40mg 40 mg, Oral, DAILY, First dose on 06/21/23 at 2230, Until Discontinu ed, Routine [facility] naproxen 500 mg tablet 06-22 01:55: 23 06-22 00:00 :00 No 500mg Take 500 mg by mouth 2 (two) times daily with meals. [facility] pantoprazol e 40 mg EC tablet 06-22 00:00: 00 07-23 04:59 :00 No [id number] 40mg Take 1 tablet by mouth 2 (two) times daily for 30 days. [facility] TAKE 1 CAPSULE 3 TIMES DAILY [...] 06/02/23 at 0900, Until Discontinu ed, Routine [facility] HYDROcodone -acetaminop hen (NORCO 5) 5-325 mg tablet 1 tablet 06-02 02:00: 00 06-02 02:19 :00 No 1{tbl} 1 tablet, Oral, ONCE, 1 dose, [facility]01[facility]23 [facility] 2100[facility]ot[facility] ([facility]ID (PF[facility] 20 mg 06-01 23:45: 00 06-02 00:24 :00 No 20mg 20 mg, Slow IV Push, ONCE, 1 dose, On 06/01/23 at 1845, [facility] ASPIRIN LOW DOSE 81 MG CHEW [...] enhydrAMINE :lidocaine 2 % viscous 1:1:1 ([facility]) oral suspension 15 mL 03-12 03:45: 00 03-12 03:37 :00 No 15mL 15 mL, Oral, ONCE, 1 dose, On Fri03/11/23 at 2245, [facility] furosemide (LASIX) injection 10 mg 03-12 03:30: 00 03-12 03:37 :00 No 10mg 10 mg, IV Push, ONCE, 1 dose, On Fri03/11/23 at 2230, [facility] famotidine (PEPCID (PF)) injection 20 mg 03-12 02:45: 00 03-12 02:47 :00 No 20mg 20 mg, Slow IV Push, ONCE, 1 dose, On Fri03/11/23 at 2145, [facility] iopamidol (ISOVUE 370-500 mL) injection 75 mL 03-12 02:30: 00 03-12 02:45 :00 No [id number] 75mL 75 mL, Intravenou s, ONCE, 1 dose, On Fri03/11/23 at 2145, Routine [facility] PANTOPRAZOL E SODIUM 20 MG TBEC 03-12 00:00: 00 Yes Toney Renner pantoprazol e (PROTONIX) 20 mg EC tablet 03-11 00:00: 00 06-22 00:00 :00 No [id number] 20mg Take 1 tablet by mouth daily. [facility] TAKE 1 TABLET BY MOUTH TWICE [...] Take 40 mg by mouth at bedtime. [facility] SITagliptin 25 mg tablet 12-19 13:21: 52 Yes 25mg Take 25 mg by mouth daily. [facility] amLODIPine 5 mg tablet 12-19 13:21: 52 Yes 5mg Take 5 mg by mouth daily. [facility] glipiZIDE 10 mg tablet 12-19 13:21: 52 Yes 10mg Take 10 mg by mouth 2 (two) times daily. [facility] metFORMIN 1,000 mg tablet 12-19 13:21: 52 Yes 1000mg Take 1,000 mg by mouth 2 (two) times daily with meals. [facility] apixaban 5 mg tablet 12-19 13:21: 52 Yes 5mg Take 5 mg by mouth 2 (two) times daily. [facility] iohexol (OMNIPAQUE 300-100 mL) injection 11-21 14:47: 16 11-21 15:03 :49 No ONCE INTRA PROCEDURE, Starting on Dianna 11/21/22 at 0847, Until Dianna 11/21/22 at 0903, Routine, CV Intraproce dure [facility] heparin 1,000 unit/mL injection 11-21 14:11: 56 11-21 15:03 :49 No ONCE INTRA PROCEDURE, Starting on Dianna 11/21/22 at 0811, Until Dianna 11/21/22 at 0903, Routine, CV Intraproce dure [facility] nitroglycer in (TRIDIL) 2 mg in 10 mL D5W for Cardiac Cath 11-21 14:11: 31 11-21 15:03 :49 No ONCE INTRA PROCEDURE, Starting on Dianna 11/21/22 at 0811, Until Dianna 11/21/22 at 0903, Routine, CV Intraproce dure [facility] lidocaine 1% (PF) (XYLOCAINE) injection 11-21 14:07: 13 11-21 15:03 :49 No ONCE INTRA PROCEDURE, Starting on Dianna 11/21/22 at 0807, Until Dianna 11/21/22 at 0903, Routine, CV Intraproce dure [facility] midazolam (VERSED) injection 11-21 14:05: 17 11-21 15:03 :49 No ONCE INTRA PROCEDURE, Starting on Dianna 11/21/22 at 0805, Until Dianna 11/21/22 at 0903, Routine, CV Intraproce dure [facility] FENTanyl PF (SUBLIMAZE (PF)) injection 11-21 14:05: 08 11-21 15:03 :49 No ONCE INTRA PROCEDURE, Starting on Dianna 11/21/22 at 0805, Until Dianna 11/21/22 at 0903, Routine, CV Intraproce dure [facility] aspirin tablet 11-21 13:59: 19 11-21 15:03 :49 No ONCE INTRA PROCEDURE, Starting on Dianna 11/21/22 at 0759, Until Dianna 11/21/22 at 0903, Routine, CV Intraproce dure [facility] glipiZIDE 10 mg tablet 11-21 12:27: 07 Yes 10mg Take 10 mg by mouth 2 (two) times daily. [facility] metFORMIN 1,000 mg tablet 11-21 12:27: 07 Yes 1000mg Take 1,000 mg by mouth 2 (two) times daily with meals. [facility] apixaban 5 mg tablet 11-21 12:27: 07 Yes 5mg Take 5 mg by mouth 2 (two) times daily. [facility] naproxen 500 mg tablet 11-21 12:27: 07 Yes 500mg Take 500 mg by mouth 2 (two) times daily with meals. [facility] atorvastati n 40 mg tablet 11-21 12:27: 07 Yes 40mg Take 40 mg by mouth at bedtime. [facility] SITagliptin 25 mg tablet 11-21 12:27: 07 Yes 25mg Take 25 mg by mouth daily. [facility] amLODIPine 5 mg tablet 11-21 12:27: 07 Yes 5mg Take 5 mg by mouth daily. [facility] acetaminoph en (TYLENOL) tablet 650 mg 10-27 19:15: 00 10-27 19:19 :00 No 650mg 650 mg, Oral, ONCE, 1 dose, On 10/27/22 at 1315, AUDRA [facility] nirmatrelvi r-ritonavir 300 mg (150 mg x 2)-100 mg tablet 10-27 00:00: 00 06-01 00:00 :00 No [id number] 3{tbl} Take 3 tablets by mouth 2 (two) times daily. [facility] Dextrometho rphan-Guaif enesin (MUCINEX DM) 60-1,200 mg Tb12 10-27 00:00: 00 11-04 05:59 :00 No [id number] 1{tbl} Take 1 tablet by mouth every 12 (twelve) hours for 7 days. [facility] TAKE 1 TABLET BY MOUTH EVERY DAY 2021-10 00:00: 00 Yes Toney Renner TAKE 1 TABLET BY MOUTH NIGHTLY 2021-10 00:00: 00 No 40 TAKE 1 TABLET BY MOUTH EVERY DAY 2021-10 00:00: 00 No 5 TAKE 1 TABLET BY MOUTH NIGHTLY 2021-10 00:00: 00 03-10 00:00 :00 No 40 Toney Renner Dose Unknown 2021-10 00:00: 00 Yes Toney Renner Dose Unknown 2021-10 2-15 00:00: 00 Yes Toney Camryn Renner Dose Unknown 2021-10 2-15 00:00: 00 Yes Toney Camryn Renner Dose Unknown 2021-10 2-15 00:00: 00 Yes Toney Camryn Renner Dose Unknown 2021-10 2-15 00:00: 00 Yes Toney Camryn Renner Dose Unknown 2021-10 2-15 00:00: 00 Yes Toneyfranklin Renner Dose Unknown 2021-10 2-15 00:00: 00 Yes Toney Camryn Renner Dose Unknown 2021-10 2-15 00:00: 00 Yes Toney Renner TAKE 1 TABLET BY MOUTH TWICE A DAY WITH FOOD 2021-10 2-15 00:00: 00 Yes Toney Renner Dose Unknown 2021-10 2-15 00:00: 00 Yes Toney Renner TAKE 1 TABLET BY MOUTH TWICE DAILY NEEDED FOR PAIN 2021-10 215 00:00: 00 Yes Toney Renner ATORVASTATI N CALCIUM 40 MG TABS 2021-10 2-15 00:00: 00 Yes 40 Toney Renner Dose Unknown 2021-10 2-15 00:00: 00 Yes Toney Renner APPLY THIN FILM TO AFFECTED AREA 2 TIMES DAILY FOR 7 DAYS 2021-10 2-15 00:00: 00 Yes Toney Renner Dose Unknown 2021-10 2-15 00:00: 00 Yes Toney Renner Dose Unknown 2021-10 2-15 00:00: 00 Yes Toney Renner Dose Unknown 2021-10 2-15 00:00: 00 Yes [...] 2-15 00:00: 00 No Dose Unknown 2021-10 215 00:00: 00 No Dose Unknown 2021-10 215 00:00: 00 No TAKE 1 TABLET BY MOUTH EVERY 12 HOURS FOR 7 DAYS 2021-10 2 00:00: 00 No TAKE 1 TABLET BY MOUTH EVERY 6 HOURS NEEDED FOR PAIN FOR UP TO 7 DAYS 2021-10 2 00:00: 00 No Dose Unknown 2021-10 2 00:00: 00 No TAKE 1 TABLET BY MOUTH TWICE A DAY WITH FOOD 2021-10 2 00:00: 00 No NITROFURANT OIN MONOHYDRATE /MACROCRY STALS 100 MG CAPS 2021-10 2- 00:00: 00 No TAKE 1 TABLET BY MOUTH TWICE DAILY NEEDED FOR PAIN 2021-10 2 00:00: 00 No Dose Unknown 2021-10 2 00:00: 00 No Dose Unknown 2021-10 2 00:00: 00 No ATORVASTATI N CALCIUM 40 MG TABS 2021-10 2- 00:00: 00 No 40 Dose Unknown 2021-10 2-15 00:00: 00 No APPLY THIN FILM TO AFFECTED AREA 2 TIMES DAILY FOR 7 DAYS 2021-10 2- 00:00: 00 No Dose Unknown 2021-10 2-15 00:00: 00 No Dose Unknown 2021-10 2 00:00: 00 No APPLY TO SCALP EVERY OTHER DAY FOR 5 MINUTES AND RINSE. 2021-10 2- 00:00: 00 No USE DIRECTED ON PACKAGE 2021-10 2-15 00:00: 00 No INSTILL 3 DROPS IN AFFECTED EAR(S) TWICE DAILY. 2021-10 2- 00:00: 00 No TAKE 1 TABLET TWICE [...] MINUTES AND RINSE. 2021-10 2-15 00:00: 00 03-10 00:00 :00 No Toney Renner USE DIRECTED ON PACKAGE 2021-10 2- 00:00: 00 03-10 00:00 :00 No Toney Renner INSTILL 3 DROPS IN AFFECTED EAR(S) TWICE [...] 03-10 00:00 :00 No Toney F Zurdo AMLODIPINE BESYLATE 5 MG TABS 2021-10 00:00: 00 Yes Toney F Zurdo AMLODIPINE BESYLATE 5 MG TABS 2021-10 00:00: 00 No AMLODIPINE BESYLATE 5 MG TABS 2021-10 00:00: 00 No APPLY SPARINGLY TO AFFECTED AREA(S) TWICE DAILY 2021-10 00:00: 00 No 2 APPLY SPARINGLY TO AFFECTED AREA(S) TWICE DAILY 2021-10 00:00: 00 03-10 00:00 :00 No 2 Toney F Zurdo APPLY TO SCALP EVERY OTHER DAY FOR 5 MINUTES AND RINSE. 2021-10 00:00: 00 Yes Toney F Zurdo TAKE 2 TABLETS BY MOUTH EVERY [...] MG TABS 2021-10 00:00: 00 Yes Toney Renenr TAKE 7.5 ML BY MOUTH EVERY 6 TO 8 HOURS NEEDED FOR COUGH 2021-10 00:00: 00 No TAKE 1 TABLET BY MOUTH TWICE A DAY 2021-10 00:00: 00 No OMEPRAZOLE 40 MG [facility] 2021-10 00:00: 00 No TAKE 1 TABLET BY MOUTH TWICE A DAY 2021-10 00:00: 00 No OMEPRAZOLE 40 MG [facility] 2021-10 00:00: 00 No TAKE 1 TABLET BY MOUTH TWICE A DAY 2021-10 00:00: 00 No OMEPRAZOLE 40 MG [facility] 2021-10 00:00: 00 No TAKE 1 TABLET BY MOUTH TWICE A DAY 2021-10 00:00: 00 03-10 00:00 :00 No Toney Renner OMEPRAZOLE 40 MG [facility] 2021-10 00:00: 00 03-10 00:00 :00 No Toney Renner TAKE 2 CAPSULES BY MOUTH EVERY 8 HOURS FOR 5 DAYS 2021-10 00:00: 00 Yes Toney Renner IBUPROFEN 400 MG TABS 2021-10 00:00: 00 Yes 400 Toney Renner TAKE 2 CAPSULES BY MOUTH EVERY 8 HOURS FOR 5 DAYS 2021-10 00:00: 00 No IBUPROFEN 400 MG TABS 2021-10 1-02 00:00: 00 No 400 JANUVIA 25 MG TABS 2021-10 0-24 00:00: 00 Yes Toney Renner Dose Unknown [...] 1 CAPSULE BY MOUTH EVERY DAY 2021-10 0 00:00: 00 No Dose Unknown 2021-10 00:00: 00 No Dose Unknown 2021-10 018 00:00: 00 03-10 00:00 :00 No Toney Renner regadenoson (LEXISCAN) injection 0.4 mg 2021-10 18:15: 00 08-08 17:58 :00 No [id number] .4mg 0.4 mg, IV Push, ONCE, 1 dose, On Fri08/08/22 at 1315, Routine
[employer] member approving Restricted medication : PETRONA SAVAGE [facility] tc 99m-tetrofo smin (MYOVIEW) injection 39.1 millicurie 2021-10 17:30: 00 08-08 17:24 :00 No [id number] 39.1mCi 39.1 millicurie , Intravenou s, ONCE, 1 dose, On Fri08/08/22 at 1230, Routine [facility] tc 99m-tetrofo smin (MYOVIEW) injection 15.5 millicurie 2021-10 16:30: 00 08-08 16:22 :00 No [id number] 15.5mCi 15.5 millicurie , Intravenou s, ONCE, 1 dose, On Dianna 08/08/22 at 1130, Routine [facility] omeprazole 40 mg capsule 2021-10 12:01: 28 08-06 00:00 :00 No 40mg Take 40 mg by mouth daily. [facility] OMEPRAZOLE 40 MG CPDR 2021-10 00:00: 00 Yes Toney Renner omeprazole 40 mg capsule 2021-10 00:00: 00 06-22 00:00 :00 No [id number] 40mg Take 1 capsule by mouth daily. [facility] maalox:diph enhydrAMINE :lidocaine 2 % viscous 1:1:1 (FIRST-MOUT HWASH BLM) oral suspension 15 mL 2021-10 15:45: 00 08-02 16:29 :00 No 15mL 15 mL, Oral, ONCE, 1 dose, On 08/02/22 at 1045, Routine [facility] SITagliptin 25 mg tablet 2021-10 14:21: 05 Yes 25mg Take 25 mg by mouth daily. [facility] amLODIPine 5 mg tablet 2021-10 14:21: 05 Yes 5mg Take 5 mg by mouth daily. [facility] glipiZIDE 10 mg tablet 2021-10 14:21: 05 Yes 10mg Take 10 mg by mouth 2 (two) times daily. [facility] omeprazole 40 mg capsule 2021-10 14:21: 05 Yes 40mg Take 40 mg by mouth daily. [facility] metFORMIN 1,000 mg tablet 2021-10 14:21: 05 Yes 1000mg Take 1,000 mg by mouth 2 (two) times daily with meals. [facility] apixaban 5 mg tablet 2021-10 14:21: 05 Yes 5mg Take 5 mg by mouth 2 (two) times daily. [facility] naproxen 500 mg tablet 2021-10 14:21: 05 Yes 500mg Take 500 mg by mouth 2 (two) times daily with meals. [facility] atorvastati n 40 mg tablet 2021-10 14:21: 05 Yes 40mg Take 40 mg by mouth at bedtime. [facility] CYCLOBENZAP RINE HYDROCHLORI DE 10 MG TABS 2021-10 00:00: 00 Yes Toney Renner HYDROCODONE BITARTRATE/ ACETAMINOPH E N 5-325 MG TABS 2021-10 00:00: 00 Yes Toney Renner cyclobenzap rine 10 mg tablet 2021-10 00:00: 00 06-01 00:00 :00 No [id number] 10mg Take 1 tablet by mouth 3 (three) times daily as needed for Muscle Spasms. [facility] HYDROcodone -acetaminop hen 5-325 mg tablet 2021-10 00:00: 00 08-10 04:59 :00 No [id number] 1{tbl} Take 1 tablet by mouth every 6 (six) hours as needed for Pain (scale 7-10) for up to 7 days. Indication s: acute pain [facility] hydralAZINE (APRESOLINE ) injection 10 mg 2021-10 22:14: 34 Yes 10mg 10 mg, Slow IV Push, Q6HPRN, Starting on Fri07/31/22 at 1714, Until Discontinu ed, Routine, DBP=>100; SBP=>180 [facility] SITagliptin (JANUVIA) tablet 25 mg 2021-10 14:00: 00 Yes 25mg 25 mg, Oral, DAILY, First dose on Fri07/31/22 at 0900, Until Discontinu ed, Routine [facility] omeprazole (PRILOSEC) capsule 40 mg 2021-10 14:00: 00 Yes 40mg 40 mg, Oral, DAILY, First dose on Fri07/31/22 at 0900, Until Discontinu ed [facility] amLODIPine (NORVASC) tablet 5 mg 2021-10 14:00: 00 Yes 5mg 5 mg, Oral, DAILY, First dose on Fri07/31/22 at 0900, Until Discontinu ed, Routine [facility] iopamidol (ISOVUE 370-500 mL) injection 75 mL 2021-10 0 13:00: 00 07-31 13:00 :00 No [id number] 75mL 75 mL, Intravenou s, ONCE, 1 dose, On Fri07/31/22 at 0800, Routine [facility] Sliding Scale Insulin-Reg ular + Fsbg Testing 2021-10 0 12:30: 00 Yes Subcutaneo us, AC, First dose on Fri07/31/22 at 0730, Until Discontinu ed, Routine [facility] maalox:diph enhydrAMINE :lidocaine 2 % viscous 1:1:1 (FIRST-MOUT HWASH BLM) oral suspension 15 mL 2021-10 0 08:00: 00 07-31 07:37 :00 No 15mL 15 mL, Oral, ONCE, 1 dose, On Fri07/31/22 at 0300, Routine [facility] diphenhydrA MINE (BENADRYL) tablet 25 mg 2021-10 0 07:00: 08 Yes 25mg 25 mg, Oral, Q6HPRN, Starting on Fri07/31/22 at 0200, Until Discontinu ed, Routine, Itching [facility] cyclobenzap rine (FLEXERIL) tablet 10 mg 2021-10 0 06:51: 33 Yes 10mg 10 mg, Oral, TIDPRN, Starting on Fri07/31/22 at 0151, Until Discontinu ed, Routine, Muscle Spasms [facility] glucagon (GLUCAGEN DIAGNOSTIC KIT) injection 1 mg 2021-10 0 02:13: 20 Yes 1mg 1 mg, Intramuscu lar, PRN, Starting on Fri07/30/22 at 2113, Until Discontinu ed, AUDRA, Blood Glucose < or = 70 mg/dL and patient is unable to swallow or has mental changes. [facility] dextrose 50 % in water (D50W) injection 25 mL 2021-10 005 02:13: 20 Yes 25mL 25 mL, Slow IV Push, PRN, Starting on Fri07/30/22 at 2113, Until Discontinu ed, AUDRA, Blood Glucose < or = 70 mg/dL and patient is unable to swallow or has mental status changes. [facility] atorvastati n (LIPITOR) tablet 40 mg 2021-10 0-05 02:00: 00 Yes 40mg 40 mg, Oral, QHS, First dose on Fri07/30/22 at 2100, Until Discontinu ed, Routine [facility] HYDROcodone -acetaminop hen (NORCO) 10-325 mg tablet 1 tablet 2021-10 0-05 01:01: 01 Yes 1{tbl} 1 tablet, Oral, Q6HPRN, Starting on Fri07/30/22 at 2000, Until Discontinu ed, Routine, Pain (scale 7-10) [facility] glipiZIDE (GLUCOTROL) tablet 10 mg 2021-10 0-05 01:00: 00 Yes 10mg 10 mg, Oral, BID, First dose on Fri07/30/22 at 1999, Until Discontinu ed, Routine [facility] apixaban (ELIQUIS) tablet 5 mg 2021-10 0-05 01:00: 00 Yes 5mg 5 mg, Oral, BID, First dose on Fri07/30/22 at 2000, Until Discontinu ed, Routine
Indicatio ns: DVT/PE [facility] traMADoL (ULTRAM) tablet 50 mg 2021-10 0-04 21:59: 23 08-01 21:58 :23 No 50mg 50 mg, Oral, Q8HPRN, Starting on Fri07/30/22 at 1659, Until Dianna 08/01/22 at 1658, Routine, Pain (scale 4-6) [facility] acetaminoph en (TYLENOL) tablet 650 mg 2021-10 0-04 21:59: 14 Yes 650mg 650 mg, Oral, Q6HPRN, Starting on Fri07/30/22 at 1659, Until Discontinu ed, Routine, Pain (scale 1-3) [facility] acetaminoph en (TYLENOL) tablet 1,000 mg 2021-10 0-04 18:00: 00 07-30 17:56 :00 No 1000mg 1,000 mg, Oral, ONCE, 1 dose, On Fri07/30/22 at 1300, AUDRA [facility] apixaban 5 mg tablet 2021-10 17:02: 03 Yes 5mg Take 5 mg by mouth 2 (two) times daily. [facility] naproxen 500 mg tablet 2021-10 17:02: 03 Yes 500mg Take 500 mg by mouth 2 (two) times daily with meals. [facility] atorvastati n 40 mg tablet 2021-10 17:02: 03 Yes 40mg Take 40 mg by mouth at bedtime. [facility] SITagliptin 25 mg tablet 2021-10 17:02: 03 Yes 25mg Take 25 mg by mouth daily. [facility] amLODIPine 5 mg tablet 2021-10 17:02: 03 Yes 5mg Take 5 mg by mouth daily. [facility] glipiZIDE 10 mg tablet 2021-10 17:02: 03 Yes 10mg Take 10 mg by mouth 2 (two) times daily. [facility] omeprazole 40 mg capsule 2021-10 17:02: 03 Yes 40mg Take 40 mg by mouth daily. [facility] metFORMIN 1,000 mg tablet 2021-10 17:02: 03 Yes 1000mg Take 1,000 mg by mouth 2 (two) times daily with meals. [facility] Dose Unknown 2021-10 00:00: 00 Yes Toney Renner Dose Unknown 2021-10 00:00: 00 No 300 TAKE 1 CAPSULE TWICE DAILY. 2021-10 0- 00:00: 00 No Dose Unknown 2021-10 00:00: 00 No TAKE 1 CAPSULE TWICE DAILY. 2021-10 00:00: 00 No TAKE 1 CAPSULE TWICE DAILY. 2021-10 00:00: 00 No Dose Unknown 2021-10- 00:00: 00 No TAKE 1 CAPSULE TWICE DAILY. 2021-10 00:00: 00 No Dose Unknown 2021-10 0-03 00:00: 00 No TAKE 1 CAPSULE TWICE DAILY. 2021-10 0-03 00:00: 00 03-10 00:00 :00 No Toney [...] 1 TABLET TWICE DAILY. 07-17 00:00: 00 03-10 00:00 :00 No Toney Renner TAKE 1 TABLET BY MOUTH NIGHTLY - 00:00: 00 Yes 40 Toney Renner TAKE 1 TABLET TWICE DAILY. 06-11 00:00: 00 Yes 1000 Toney Renner TAKE 1 TABLET BY MOUTH NIGHTLY 06-11 00:00: 00 No 40 TAKE 1 TABLET TWICE DAILY. 8- 00:00: 00 No 1000 TAKE 1 TABLET BY MOUTH NIGHTLY 06-11 00:00: 00 No 40 TAKE 1 TABLET TWICE DAILY. 8-16 00:00: 00 No 1000 TAKE 1 TABLET BY MOUTH NIGHTLY 0 8-16 00:00: 00 No 40 TAKE 1 TABLET TWICE DAILY. 8- 00:00: 00 No 1000 TAKE 1 TABLET BY MOUTH NIGHTLY 0 8-16 00:00: 00 No 40 TAKE 1 TABLET TWICE DAILY. 8-16 00:00: 00 No 1000 TAKE 1 TABLET BY MOUTH NIGHTLY 8-16 00:00: 00 No 40 TAKE 1 TABLET TWICE DAILY. - 00:00: 00 No 1000 TAKE 1 TABLET BY MOUTH NIGHTLY 815 00:00: 00 Yes 40 Toney Renner TAKE 1 TABLET BY MOUTH NIGHTLY 8- 00:00: 00 No 40 TAKE 1 TABLET BY MOUTH NIGHTLY 0 8 00:00: 00 No 40 TAKE 1 TABLET BY MOUTH NIGHTLY 8 00:00: 00 No 40 TAKE 1 TABLET BY MOUTH NIGHTLY 8- 00:00: 00 No 40 TAKE 1 TABLET BY MOUTH NIGHTLY 815 00:00: 00 No 40 TAKE 1 TABLET TWICE DAILY. 06-09 00:00: 00 Yes 1000 Toney Renner TAKE 1 TABLET TWICE DAILY. 06-09 00:00: 00 No 1000 TAKE 1 TABLET TWICE DAILY. 06-09 00:00: 00 No 1000 TAKE 1 TABLET TWICE DAILY. 06-09 00:00: 00 No 1000 TAKE 1 TABLET TWICE DAILY. 06-09 00:00: 00 No 1000 TAKE 1 TABLET TWICE DAILY. 06-09 00:00: 00 No 1000 TAKE 1 TABLET TWICE DAILY. 06-09 00:00: 00 No 1000 Dose Unknown 06-06 00:00: 00 Yes Toney Renner Dose Unknown 06-06 00:00: 00 Yes 10 Toneyfranklin Renner &lt 8- 00:00: 00 Yes 100 Toney Renner Dose Unknown 8- 00:00: 00 Yes 5 Toneyfranklin Renner Dose Unknown 2022-0 8-11 00:00: 00 Yes Toney Renner Dose Unknown 2022-0 8-11 00:00: 00 Yes 25 Toney Renner MUPIROCIN 2 % OINT 2022-0 8-11 00:00: 00 Yes Toney Renner Dose Unknown 2022-0 8-11 00:00: 00 No [...] TWICE A DAY 2022-0 8-09 00:00: 00 Yes Toney Renner &lt 2022-0 8-09 00:00: 00 Yes 4 Toney Renner &lt 2022-0 8- 00:00: 00 Yes 300 Toney Renner Dose Unknown 2-0 8 00:00: 00 Yes 4 Toney Renner TAKE 1 TABLET BY MOUTH TWICE A DAY 2022-0 8- 00:00: 00 No &lt 2022-0 8 00:00: 00 No 4 &lt 2022-0 8- 00:00: 00 No 300 Dose Unknown 2022-0 06-04 00:00: 00 No 4 TAKE 1 TABLET BY MOUTH TWICE A DAY 2022-0 - 00:00: 00 No &lt 2022-0 06-04 00:00: 00 No 4 &lt 2022-0 06-04 00:00: 00 No 300 Dose Unknown 2022-0 8 00:00: 00 No 4 TAKE 1 TABLET BY MOUTH TWICE A DAY 2-0 06-04 00:00: 00 No &lt 2022-0 8 00:00: 00 No 4 &lt 2022-0 06-04 00:00: 00 No 300 Dose Unknown 2-0 8 00:00: 00 No 4 TAKE 1 TABLET BY MOUTH TWICE A DAY 2-0 06-04 00:00: 00 No &lt 2022-0 06-04 00:00: 00 No 4 &lt 2022-0 06-04 00:00: 00 No 300 Dose Unknown 2-0 06-04 00:00: 00 No 4 TAKE 1 TABLET BY MOUTH TWICE A DAY 2-0 06-04 00:00: 00 No &lt 2022-0 06-04 00:00: 00 No 4 &lt 2022-0 06-04 00:00: 00 No 300 Dose Unknown 2022-0 06-04 00:00: 00 No 4 TAKE 1 TABLET BY MOUTH TWICE A DAY 2-0 06-04 00:00: 00 No &lt 2022-0 06-04 00:00: 00 No 4 &lt 2022-0 06-04 00:00: 00 No 300 Dose Unknown 2022-0 06-04 00:00: 00 No 4 TAKE 1 TABLET BY MOUTH TWICE A DAY 2-0 8 00:00: 00 Yes Toney Renner &lt 2022-0 05-27 00:00: 00 Yes 25 Toney F Zurdo TAKE 1 TABLET ONCE DAILY BEFORE MEALS 2-0 8- 00:00: 00 Yes 40 Toney Renner TAKE 1 TABLET SUBLINGUALL Y DIRECTED NEEDED FOR PAIN SCALE 2-4 2-0 8- 00:00: 00 Yes 4 Toneyfranklin Renner &lt 2022-0 8- 00:00: 00 Yes 10 Toney Renner TAKE 1 CAPSULE BY MOUTH THREE TIMES DAILY 2-0 8- 00:00: 00 Yes 300 Toney Renner &lt 2022-0 8- 00:00: 00 Yes 4 Toneyfranklin Renner &lt 2022-0 8- 00:00: 00 Yes 5 Toneyfranklin Renner &lt 2022-0 8- 00:00: 00 Yes 40 Toney Renner &lt 2022-0 8- 00:00: 00 Yes 5 Toney Renner &lt 2022-0 8- 00:00: 00 Yes Toney Rennre &lt 2022-0 8- 00:00: 00 Yes 500 Toney Renner &lt 2022-0 8- 00:00: 00 Yes Toney [...] 2022-0 8- 00:00: 00 No Dose Unknown 2021-0 05-24 00:00: 00 Yes 5 Toney Renner Dose Unknown 0 05-24 00:00: 00 No 5 Dose Unknown 2021-0 05-24 00:00: 00 No 5 Dose Unknown 2021-0 05-24 00:00: 00 No 5 Dose Unknown 2021-0 05-24 00:00: 00 No 5 Dose Unknown 05-24 00:00: 00 No 5 Dose Unknown 0 05-24 00:00: 00 No 5 Dose Unknown 05-24 00:00: 00 No 5 TAKE 1 TABLET BY MOUTH TWICE A DAY 0 05-23 00:00: 00 Yes 10 Toney Renner [...] MOUTH NIGHTLY 05-23 00:00: 00 No 40 Dose Unknown 05-16 00:00: 00 Yes 25 Toney Renner Dose Unknown 05-16 00:00: 00 Yes Toney Renner Dose Unknown 05-16 00:00: 00 No 25 Dose Unknown 05-16 00:00: 00 No Dose Unknown 05-16 00:00: 00 No 25 Dose Unknown 05-16 00:00: 00 No Dose Unknown 05-16 00:00: 00 No 25 Dose Unknown 2021-0 7 00:00: 00 No Dose Unknown 2021-0 7 00:00: 00 No 25 Dose Unknown 2021-0 7 00:00: 00 No Dose Unknown 2021-0 7 00:00: 00 No 25 Dose Unknown 2021-0 7 00:00: 00 No Dose Unknown 2021-0 7 00:00: 00 No 25 Dose Unknown 0 05-16 00:00: 00 No Dose Unknown 0 05-16 00:00: 00 No 25 Dose Unknown 2021-0 05-16 00:00: 00 No &lt 2022-0 7 00:00: 00 Yes 4 Toney Renner Dose Unknown 2021-0 - 00:00: 00 Yes 25 Toneyfranklin Renner &lt 2022-0 05-14 00:00: 00 Yes 300 Toney Renner TAKE 1 TABLET BY MOUTH TWICE A DAY 2-0 7- 00:00: 00 Yes 5 Toney Renner TAKE 1 TABLET BY MOUTH EVERY 12 HOURS FOR 7 DAYS 2-0 7 00:00: 00 Yes Toney Renner TAKE 1 TABLET BY MOUTH TWICE A DAY 2-0 7 00:00: 00 Yes Toney Renner &lt 2022-0 7- 00:00: 00 Yes 4 Toneyfranklin Renner Dose Unknown 2021-0 05-14 00:00: 00 Yes Toney Camryn Renner &lt 2022-0 7 00:00: 00 No 4 Dose Unknown 2021-0 7 00:00: 00 No 25 &lt 2022-0 7 00:00: 00 No 300 TAKE 1 TABLET BY MOUTH TWICE A DAY 2-0 7 00:00: 00 No 5 TAKE 1 TABLET BY MOUTH EVERY 12 HOURS FOR 7 DAYS 2-0 719 00:00: 00 No TAKE 1 TABLET BY MOUTH TWICE A DAY 2-0 7-19 00:00: 00 No &lt 2022-0 7-19 00:00: 00 No 4 Dose Unknown 2-0 7 00:00: 00 No &lt 2022-0 7 00:00: 00 No 4 Dose Unknown 2-0 7-19 00:00: 00 No 25 &lt 2022-0 [...] 7 00:00: 00 No 25 &lt 2022-0 7-19 00:00: 00 No 300 TAKE 1 TABLET BY MOUTH TWICE A DAY 2-0 7-19 00:00: 00 No 5 TAKE 1 TABLET BY MOUTH EVERY 12 HOURS FOR 7 DAYS 2022-0 7- 00:00: 00 No TAKE 1 TABLET BY MOUTH TWICE A DAY 2-0 7-19 00:00: 00 No &lt 2022-0 7-19 00:00: 00 No 4 Dose Unknown 2-0 7- 00:00: 00 No &lt 2022-0 7 00:00: 00 No 4 Dose Unknown 2-0 719 00:00: 00 No 25 &lt 2022-0 7-19 00:00: 00 No 300 TAKE 1 TABLET BY MOUTH TWICE A DAY 2-0 7-19 00:00: 00 No 5 TAKE 1 TABLET BY MOUTH EVERY 12 HOURS FOR 7 DAYS 2022-0 719 00:00: 00 No TAKE 1 TABLET BY MOUTH TWICE A DAY 2-0 7-19 00:00: 00 No &lt 2022-0 7-19 00:00: 00 No 4 Dose Unknown 2-0 719 00:00: 00 No &lt 2022-0 7-19 00:00: 00 No 4 Dose Unknown 2-0 7- 00:00: 00 No 25 &lt 2022-0 7- 00:00: 00 No 300 TAKE 1 TABLET BY MOUTH TWICE A DAY 2022-0 7-19 00:00: 00 No 5 TAKE 1 TABLET BY MOUTH EVERY 12 HOURS FOR 7 DAYS 2022-0 7- 00:00: 00 No TAKE 1 TABLET BY MOUTH TWICE A DAY 2022-0 7-19 00:00: 00 No &lt 2022-0 7 [...] EVERY 12 HOURS FOR 7 DAYS 2022-0 19 00:00: 00 No TAKE 1 TABLET BY MOUTH TWICE A DAY 2-0 05-14 00:00: 00 No &lt 2022-0 7 00:00: 00 No 4 Dose Unknown 2021-0 05-14 00:00: 00 No &lt 2022-0 7 00:00: 00 No 4 Dose Unknown 2021-0 05-14 00:00: 00 No 25 &lt 2022-0 7- 00:00: 00 No 300 TAKE 1 TABLET BY MOUTH TWICE A DAY 2-0 -19 00:00: 00 No 5 TAKE 1 TABLET BY MOUTH EVERY 12 HOURS FOR 7 DAYS 2022-0 -19 00:00: 00 No TAKE 1 TABLET BY MOUTH TWICE A DAY 2-0 -19 00:00: 00 No &lt 2022-0 7-19 00:00: 00 No 4 Dose Unknown 2-0 -19 00:00: 00 No &lt 2022-0 7-15 00:00: 00 Yes 5 Toney Renner &lt 2021-0 7-15 00:00: 00 No 5 &lt 2-0 7-15 00:00: 00 No 5 &lt 2021-0 7-15 00:00: 00 No 5 &lt 2021-0 7-15 00:00: 00 No 5 &lt 2-0 7-15 00:00: 00 No 5 &lt 2-0 7-15 00:00: 00 No 5 &lt 2021-0 7-15 00:00: 00 No 5 &lt 2-0 7-15 00:00: 00 No 5 TAKE 1 TABLET BY MOUTH EVERY DAY 2021-0 714 00:00: 00 Yes 100 Toney Renner TAKE 1 TABLET BY MOUTH EVERY DAY 0 14 00:00: 00 No 100 TAKE 1 TABLET BY MOUTH EVERY DAY 2021-0 05-09 00:00: 00 No 100 TAKE 1 TABLET BY MOUTH EVERY DAY 2021-0 14 00:00: 00 No 100 TAKE 1 TABLET BY MOUTH EVERY DAY 0 14 00:00: 00 No 100 TAKE 1 TABLET BY MOUTH EVERY DAY 2021-0 05-09 00:00: 00 No 100 TAKE 1 TABLET BY MOUTH EVERY DAY 0 14 00:00: 00 No 100 TAKE 1 TABLET BY MOUTH EVERY DAY 0 05-09 00:00: 00 No 100 TAKE 1 TABLET BY MOUTH EVERY DAY 2021-0 05-09 00:00: 00 No 100 TAKE 1 TABLET BY MOUTH NIGHTLY 0 05-03 00:00: 00 Yes 40 Toney Renner TAKE 1 CAPSULE BY MOUTH TWICE A DAY 0 05-03 00:00: 00 Yes Toney Renner TAKE [...] DIRECTED NEEDED FOR PAIN SCALE 2-4 2021-0 05-02 00:00: 00 No 4 TAKE 1 TABLET BY MOUTH EVERY DAY 2021-0 05-02 00:00: 00 No 25 TAKE 1 TABLET BY MOUTH EVERY 12 HOURS FOR 7 DAYS 2021-0 05-02 00:00: 00 No TAKE 2 TABLETS BY MOUTH EVERY 6 HOURS NEEDED 2021-0 05-02 00:00: 00 No Dose Unknown 0 05-02 00:00: 00 No &lt 2021-0 05-02 00:00: 00 No 40 TAKE 1 CAPSULE BY MOUTH THREE TIMES DAILY 2021-0 05-02 00:00: 00 No 300 &lt 2021-0 05-02 00:00: 00 No 10 Dose Unknown 0 05-02 00:00: 00 No 5 TAKE 1 TABLET SUBLINGUALL Y DIRECTED NEEDED FOR PAIN SCALE 2-4 2021-0 05-02 00:00: 00 No 4 TAKE 1 TABLET BY MOUTH EVERY DAY 0 04-26 00:00: 00 Yes Toneyfranklin Renner &lt 2-0 7- 00:00: 00 Yes Toney Renner TAKE 1 TABLET SUBLINGUALL Y DIRECTED NEEDED FOR PAIN SCALE 2-4 0 04-26 00:00: 00 Yes Toney Renner &lt 2-0 7- 00:00: 00 Yes Toneyfranklin Renner &lt 2-0 7- 00:00: 00 Yes Toney Renner &lt 2-0 7- 00:00: 00 Yes Toney Renner TAKE 1 TABLET BY MOUTH EVERY DAY 2021-0 - 00:00: 00 No &lt 2-0 7- 00:00: 00 No TAKE 1 TABLET SUBLINGUALL Y DIRECTED NEEDED FOR PAIN SCALE 2-4 0 7- 00:00: 00 No &lt 2-0 7- 00:00: 00 No &lt 2-0 7- 00:00: 00 No &lt 2-0 7- 00:00: 00 No TAKE 1 TABLET BY MOUTH EVERY DAY 2022-0 7-01 00:00: 00 No &lt 2022-0 7-01 00:00: 00 No TAKE 1 TABLET SUBLINGUALL [...] DIRECTED NEEDED FOR PAIN SCALE 2-4 2-0 7- 00:00: 00 No &lt 2022-0 7- 00:00: 00 No &lt 2022-0 7- 00:00: 00 No &lt 2022-0 7- 00:00: 00 No TAKE 1 TABLET BY MOUTH EVERY DAY 2022-0 7- 00:00: 00 No &lt 2022-0 7- 00:00: 00 No TAKE 1 TABLET SUBLINGUALL Y DIRECTED NEEDED FOR PAIN SCALE 2-4 2-0 7- 00:00: 00 No &lt 2022-0 7- 00:00: 00 No &lt 2022-0 7- 00:00: 00 No &lt 2022-0 7- 00:00: 00 No TAKE 1 TABLET BY MOUTH EVERY DAY 2022-0 7- 00:00: 00 No &lt 2022-0 7- 00:00: 00 No TAKE 1 TABLET SUBLINGUALL Y DIRECTED NEEDED FOR PAIN SCALE 2-4 2-0 7- 00:00: 00 No &lt 2022-0 7- 00:00: 00 No &lt 2022-0 7- 00:00: 00 No &lt 2022-0 7- 00:00: 00 No TAKE 1 TABLET BY MOUTH EVERY DAY 2022-0 7- 00:00: 00 No &lt 2022-0 7- 00:00: 00 No TAKE 1 TABLET SUBLINGUALL Y DIRECTED NEEDED FOR PAIN SCALE 2-4 2-0 7- 00:00: 00 No &lt 2022-0 [...] TWICE A DAY 2021-0 04-17 00:00: 00 Sharon Renner TAKE 1 TABLET BY MOUTH TWICE [...] MINUTES BEFORE MEALS 2021-0 04-16 00:00: 00 Yes Toney Renner TAKE 2 TABLETS BY MOUTH EVERY 6 HOURS NEEDED 2021-0 04-16 00:00: 00 Yes Toney Renner Dose Unknown 0 04-16 00:00: 00 Yes 10 Toney Renner glipizide 10 mg tablet 0 04-16 00:00: 00 No 1mg TAKE 2 TABLETS BY MOUTH EVERY 6 HOURS NEEDED 2021-0 04-16 00:00: 00 No glipizide 10 mg tablet 2021-0 04-16 00:00: 00 No 1mg TAKE 2 TABLETS BY MOUTH EVERY 6 HOURS NEEDED 2021-0 04-16 00:00: 00 No glipizide 10 mg tablet 2021-0 04-16 00:00: 00 No 1mg TAKE 2 [...] HOURS NEEDED 2021-0 04-16 00:00: 00 No Dose Unknown 0 04-16 00:00: 00 No TAKE 2 TABLETS BY MOUTH EVERY 6 HOURS NEEDED 2021-0 04-16 00:00: 00 No TAKE 1 TABLET TWICE A DAY 30 MINUTES BEFORE MEALS 0 04-16 00:00: 00 No TAKE 2 TABLETS BY MOUTH EVERY 6 HOURS NEEDED 2021-0 04-16 00:00: 00 No glipizide 10 mg tablet 2021-0 04-16 00:00: 00 No 1mg TAKE 2 TABLETS BY MOUTH EVERY 6 HOURS NEEDED 0 04-16 00:00: 00 No TAKE 1 TABLET DAILY. 0 01-21 00:00: 00 Yes Toney Renner glipizide 10 mg tablet 0 01-21 00:00: 00 Yes 1mg Toney Renner [...] 0 01-21 00:00: 00 No Dose Unknown 2021-0 01-21 00:00: 00 No Dose Unknown 2021-0 01-21 00:00: 00 No Dose Unknown 2021-0 01-21 00:00: 00 No Dose Unknown 0 01-21 00:00: 00 No Dose Unknown 0 01-21 00:00: 00 No Dose Unknown 0 01-21 00:00: 00 No TAKE 1 TABLET DAILY. 2021-0 01-21 00:00: 00 No glipizide 10 mg tablet 2021-0 01-21 00:00: 00 No 1mg metformin 1,000 mg tablet 0 01-21 00:00: 00 No 1mg Dose Unknown 0 01-21 00:00: 00 No Dose Unknown 0 01-21 00:00: 00 No Dose Unknown 0 01-21 00:00: 00 No Dose Unknown 2021-0 01-21 00:00: 00 No Dose Unknown 2021-0 01-21 00:00: 00 No Dose Unknown 2021-0 01-21 00:00: 00 No Dose Unknown 0 01-21 00:00: 00 No Dose Unknown 0 01-21 00:00: 00 No TAKE 1 TABLET DAILY. 0 01-21 00:00: 00 No glipizide 10 mg tablet 0 01-21 00:00: 00 No 1mg metformin 1,000 mg tablet 0 01-21 00:00: 00 No 1mg Dose Unknown 2021-0 01-21 00:00: 00 No Dose Unknown 2021-0 01-21 00:00: 00 No Dose Unknown 0 01-21 00:00: 00 No Dose Unknown 0 01-21 00:00: 00 No Dose Unknown 2021-0 01-21 00:00: 00 No Dose Unknown 0 01-21 00:00: 00 No Dose Unknown 0 01-21 00:00: 00 No Dose Unknown 0 01-21 00:00: 00 No amlodipine 5 mg tablet 2021-0 01-21 00:00: 00 No 1mg Januvia 100 [...] mg by mouth 2 (two) times daily. [facility] omeprazole 40 mg capsule 10-29 15:43: 53 Yes 40mg Take 40 mg by mouth daily. [facility] metFORMIN 1,000 mg tablet 10-29 15:43: 53 Yes 1000mg Take 1,000 mg by mouth 2 (two) times daily with meals. [facility] No known medications 10-29 15:43: 53 No [facility] atorvastati n 40 mg tablet 10-29 15:40: 58 Yes 40mg Take 40 mg by mouth at bedtime. [facility] SITagliptin 25 mg tablet 10-29 15:40: 58 Yes 25mg Take 25 mg by mouth daily. [facility] amLODIPine 5 mg tablet 10-29 15:40: 58 Yes 5mg Take 5 mg by mouth daily. [facility] apixaban 5 mg tablet 10-29 15:39: 13 Yes 5mg Take 5 mg by mouth 2 (two) times daily. [facility] naproxen 500 mg tablet 10-29 15:39: 13 Yes 500mg Take 500 mg by mouth 2 (two) times daily with meals. [facility] TAKE 1 TABLET DAILY. 2020-10 00:00: 00 Yes Toneyfranklin Renner Dose Unknown 2020-10 00:00: 00 Yes Toney Camryn Renner Dose Unknown 2020-10 2 00:00: 00 Yes Toney Camryn Zurdo Dose Unknown 2020-10 2 00:00: 00 Yes Toney Camryn Renner Dose Unknown 2020-10 00:00: 00 Yes Toney Renner naproxen 500 mg tablet 2020-10 2 00:00: 00 Yes 1mg Toney Renner Dose Unknown 2020-10 00:00: 00 Yes Toney Camryn Renner Dose Unknown 2020-10 2 00:00: 00 Yes Toney Renner Januvia 25 mg tablet 2020-10 2 00:00: [...] 00:00: 00 No 1mg Dose Unknown 2020-10 2-13 00:00: 00 No Dose Unknown 2020-1 2-13 00:00: 00 No Dose Unknown 2020-1 2-13 00:00: 00 No naproxen 500 mg tablet 2020-1 2-13 00:00: 00 No 1mg Dose Unknown 2020-1 2-13 00:00: 00 No Dose Unknown 2020- 2- 00:00: 00 No Januvia 25 mg tablet 2020-1 2-13 00:00: 00 No 1mg Dose Unknown 2020- 2- 00:00: 00 No Dose Unknown 2020-1 2-13 00:00: 00 No Dose Unknown 2020- 2-13 00:00: 00 No Dose Unknown 2020- 2-13 00:00: 00 No naproxen 500 mg tablet 2020-1 2- 00:00: 00 No 1mg Dose Unknown 2020- 2- 00:00: 00 No Dose Unknown 2020- 2- 00:00: 00 No Januvia 25 mg tablet 2020-1 2- 00:00: 00 No 1mg Dose Unknown 2020- 2- 00:00: 00 No Dose Unknown 2020- 2-13 00:00: 00 No Dose Unknown 2020- 2-13 00:00: 00 No Dose Unknown 2020- 2-13 00:00: 00 No naproxen 500 mg tablet 2020-1 2- 00:00: 00 No 1mg Dose Unknown 2020- 2- 00:00: 00 No Dose Unknown 2020- 2-13 00:00: 00 No TAKE 1 TABLET DAILY. 2020-1 2-13 00:00: 00 No Dose Unknown [...] 2020- 2-13 00:00: 00 No Dose Unknown 2020-1 2-13 00:00: 00 No Dose Unknown 2020-1 2-13 00:00: 00 No Dose Unknown 2020-1 2-13 00:00: 00 No Dose Unknown 2020-1 2-13 00:00: 00 No naproxen 500 mg tablet 2020-1 2-13 00:00: 00 No 1mg Dose Unknown 2020-1 2-13 00:00: 00 No Dose Unknown 2020-1 2-13 00:00: 00 No Januvia 25 mg tablet 2020-1 2-13 00:00: 00 No 1mg Dose Unknown 2020-1 2-13 00:00: 00 No Dose Unknown 2020-1 2-13 00:00: 00 No Dose Unknown 2020-10 2-13 00:00: 00 No Dose Unknown 2020-10 2- 00:00: 00 No naproxen 500 mg tablet 2020-1 2- 00:00: 00 No 1mg Dose Unknown 2020- 2- 00:00: 00 No Dose Unknown 2020-10 2- 00:00: 00 No Januvia 25 mg tablet 2020-1 2- 00:00: 00 No 1mg Dose Unknown 2020- 2- 00:00: 00 No Dose Unknown 2020- 2-13 00:00: 00 No Dose Unknown 2020-10 2-13 00:00: 00 No Dose Unknown 2020-1 2-13 00:00: 00 No naproxen 500 mg tablet 2020-1 2- 00:00: 00 No 1mg Dose Unknown 2020- 2- 00:00: 00 No Dose Unknown 2020-10 2-13 00:00: 00 No Dose Unknown 0 9- 00:00: 00 Yes Toney Renner Dose Unknown 07-09 00:00: 00 Yes Toney Renner Dose Unknown 07-09 00:00: 00 Yes Toney Renner prednisone 20 mg tablet 0 07-09 00:00: 00 No 1mg benzonatate 200 mg capsule 0 07-09 00:00: 00 No 1mg Bromfed DM 2 mg-30 mg-10 mg/5 mL oral syrup 07-09 00:00: 00 No 5mg/5 mL prednisone [...] No 5mg/5 mL Januvia 25 mg tablet 2020-0 - 00:00: 00 Yes 1mg Toney Renner Januvia 25 mg tablet 07-02 00:00: 00 [...] mg tablet 07-02 00:00: 00 No 1mg atorvastati n 40 mg tablet 06-13 00:00: 00 Yes 1mg Toney Camryn Zurdo atorvastati n 40 mg tablet 06-13 00:00: [...] amlodipine 5 mg tablet 8 00:00: 00 Yes 1mg Toney Renner metformin 1,000 mg tablet 8 00:00: 00 Yes 1mg Toney Renner glipizide 10 mg tablet 8 00:00: 00 Yes 1mg Toney Renner Dose Unknown 8- 00:00: 00 Yes Toney Renner omeprazole 40 mg capsule,del ayed release 8- 00:00: 00 Yes 1mg Toney Renner Dose Unknown 8 00:00: 00 Yes Toney Renner amlodipine 5 mg tablet 8 00:00: 00 [...] 05-23 00:00: 00 No 1mg Dose Unknown 4 00:00: 00 Yes Toney Camryn Zurdo TAKE 1 TABLET TWICE A DAY [...] No 1mg atorvastati n 40 mg tablet - 00:00: 00 No 1mg omeprazole 40 mg capsule,del ayed release - 00:00: 00 No 1mg amlodipine 5 mg tablet - 00:00: 00 No 1mg metformin 1,000 mg tablet - 00:00: 00 No 1mg glipizide ER 5 [...] ayed release - 00:00: 00 No 1mg metformin 1,000 mg tablet - 00:00: 00 No 1mg glipizide ER 5 mg tablet, extended release 24 hr - 00:00: 00 No 1mg atorvastati n 40 mg tablet - 00:00: 00 No 1mg Dose Unknown - 00:00: 00 No Dose Unknown 11-03 00:00: [...] ayed release 11-03 00:00: 00 No 1mg atorvastati n [...] mg tablet 2019-10 00:00: 00 Yes 1mg Toneyfranklin Renner amlodipine 5 mg tablet 2019-10 00:00: [...] release 24 hr 2019-10 0- 00:00: 00 Yes 1mg Toney Camryn Zurdo metformin 1,000 mg tablet 2019-10 0- 00:00: 00 Yes 1mg Toney Renner Eliquis 5 mg tablet 2019-10 0- 00:00: 00 Yes 1mg Toney Renner atorvastati n 40 mg tablet 2019-10 0 00:00: 00 Yes 1mg Toney Renner omeprazole 40 mg capsule,del ayed release 2019-10 0 00:00: 00 Yes 1mg Toney Cowan Zurdo omeprazole 40 mg capsule,del ayed release 2019-10 [...] mg capsule 06-08 00:00: 00 No 2mg amoxicillin 500 mg tablet 05-15 00:00: 00 Yes 1mg Toney F Zurdo amoxicillin 500 mg tablet 05-15 00:00: 00 [...] 00 No 1mg amoxicillin 500 mg tablet 2020-0 7-20 00:00: 00 No 1mg dicyclomine 20 mg tablet 02-28 00:00: 00 Yes 1mg Toney Renner dicyclomine [...] mg tablet 02-28 00:00: 00 No 1mg Aspirin Low Dose [...] glipizide ER 5 mg tablet, extended release hr 2018-10 00:00: 00 No 1mg glipizide [...] glipizide ER 5 mg tablet, extended release hr 2018-10 00:00: 00 No 1mg amlodipine [...] 1mg Toney Renner citalopram 20 mg tablet 05 00:00: 00 No 1mg citalopram 20 mg tablet 01-29 00:00: 00 No 1mg citalopram 20 mg tablet 01-29 00:00: 00 No 1mg citalopram 20 mg tablet 01-29 00:00: 00 No 1mg citalopram 20 mg tablet 01-29 00:00: 00 No 1mg citalopram 20 mg tablet 01-29 00:00: 00 No 1mg citalopram 20 mg tablet 05 00:00: 00 No 1mg citalopram 20 mg tablet 05 00:00: 00 No 1mg polyethylen e glycol [...] 5 mg tablet, extended release 24 hr 2 00:00: 00 No 1mg amlodipine 5 mg tablet 2 00:00: 00 No 1mg enalapril maleate 20 mg tablet 2 00:00: 00 No 1mg metformin 1,000 mg tablet 2 00:00: 00 No 1mg tizanidine 2 mg tablet 2 00:00: 00 No 1mg gabapentin 100 mg capsule 2 00:00: 00 No 1mg polyethylen e glycol 3350 17 gram oral powder packet 12-03 00:00: 00 No 1gram paroxetine 20 mg tablet 2 00:00: 00 No 1mg glipizide ER 5 [...] 00 No 1gram paroxetine 20 mg tablet 2 00:00: 00 No 1mg glipizide ER 5 mg tablet, extended release 24 hr 12-03 00:00: 00 No 1mg amlodipine 5 mg tablet 2 00:00: 00 No 1mg enalapril maleate 20 [...] 00 No 1gram paroxetine 20 mg tablet 2 00:00: 00 No 1mg glipizide ER 5 [...] 00 No 1gram paroxetine 20 mg tablet 2 00:00: 00 No 1mg glipizide ER 5 [...] 05-13 00:00: 00 Yes 1mg Toney Renner tizanidine [...] 05-05 00:00: 00 Yes 1mg Toney Renner glipizide [...] tablet 04-06 00:00: 00 Yes 1mg Toney Camryn Zurdo metformin 1,000 mg tablet 04-06 00:00: 00 [...] topical cream 11-26 00:00: 00 Yes 1% Tonye Renner enalapril maleate 20 mg tablet 11-26 [...] mg tablet 11-14 00:00: 00 No 1mg amlodipine amlodipine No amlodipine [facility] atorvastati n atorvastati n No atorvastat in [facility] Eliquis Eliquis No Eliquis [facility] estradiol 0.01% (0.1 mg/gram) vaginal cream Insert 0.5 g 3 times a week by vaginal route at bedtime for 30 days. estradiol 0.01% (0.1 mg/gram) vaginal cream Insert 0.5 g 3 times a week by vaginal route at bedtime for 30 days. No .5g Q56H estradiol 0.01% (0.1 mg/gram) vaginal cream Insert 0.5 g 3 times a week by vaginal route at bedtime for 30 days. [facility] glipizide glipizide No glipizide [facility] Januvia Januvia No Januvia P [facility] metformin metformin No metformin [facility] pantoprazol e 40 mg tablet,merna yed release Take 1 tablet every day by oral route. pantoprazol e 40 mg tablet,merna yed release Take 1 tablet every day by oral route. No 1 Q1D pantoprazo le 40 mg tablet,del ayed release Take 1 tablet every day by oral route. [facility] sucralfate 1 gram tablet Take 1 tablet 4 times a day by oral route. sucralfate 1 gram tablet Take 1 tablet 4 times a day by oral route. No 1 QID sucralfate 1 gram tablet Take 1 tablet 4 times a day by oral route. [facility] Immunizations Ordered Immunization Name Filled Immunization Name Date Status Comments Source TDAP 2022-01-21 00:00:00 Completed [facility] TDAP 2022-01-21 00:00:00 Completed [facility] TDAP 2022-01-21 00:00:00 Completed [facility] TDAP 2022-01-21 00:00:00 Completed [facility] TDAP 2022-01-21 00:00:00 Completed [facility] TDAP 2022-01-21 00:00:00 Completed [facility] influenza, seasonal vaccine, quadrivalent, adjuvanted, .5mL dose, preservative-free influenza, seasonal vaccine, quadrivalent, adjuvanted, .5mL dose, preservative-free 2022-01-21 00:00:00 Completed Toney Renner pneumococcal conjugate P pneumococcal conjugate P 2022-01-21 00:00:00 Completed Toney Renner Tdap Tdap 2022-01-21 00:00:00 Nani Renner influenza, seasonal vaccine, quadrivalent, adjuvanted, .5mL dose, preservative-free influenza, seasonal vaccine, quadrivalent, adjuvanted, .5mL dose, preservative-free 2022-01-21 00:00:00 Completed Toney Renner pneumococcal conjugate P pneumococcal conjugate P 2022-01-21 00:00:00 Completed Toney Renner Tdap Tdap 2022-01-21 00:00:00 Nani Renner influenza, seasonal vaccine, quadrivalent, adjuvanted, .5mL [...] COVID-19 VACCINE - (MODERNA) 2021-10-24 00:00:00 Completed [facility] SARS-COV-2 COVID-19 VACCINE - (MODERNA) 2021-10-24 00:00:00 Completed [facility] SARS-COV-2 COVID-19 VACCINE - (MODERNA) 2021-10-24 00:00:00 Completed [facility] SARS-COV-2 COVID-19 VACCINE - (MODERNA) 2021-10-24 00:00:00 Completed [facility] SARS-COV-2 COVID-19 VACCINE - (MODERNA) 2021-10-24 00:00:00 Completed [facility] SARS-COV-2 COVID-19 VACCINE - (MODERNA) 2021-10-24 00:00:00 Completed [facility] Moderna COVID-19 Vaccine Moderna COVID-19 Vaccine 2021-10-24 00:00:00 Completed Toney Renner Moderna COVID-19 Vaccine Moderna COVID-19 Vaccine 2021-10-24 00:00:00 Completed Toney Renner Moderna COVID-19 Vaccine 2021-10-24 00:00:00 Completed Moderna COVID-19 Vaccine 2021-10-24 00:00:00 Completed Moderna COVID-19 Vaccine 2021-10-24 00:00:00 Completed Moderna COVID-19 Vaccine 2021-10-24 00:00:00 Completed Moderna COVID-19 Vaccine 2021-10-24 00:00:00 Completed Moderna COVID-19 Vaccine 2021-10-24 00:00:00 Completed Moderna COVID-19 Vaccine 2021-10-24 00:00:00 Completed Moderna COVID-19 Vaccine 2021-10-24 00:00:00 Completed Moderna COVID-19 Vaccine 2021-10-24 00:00:00 Completed Hepa/Hepb Combo 2021-05-12 00:00:00 Completed [facility] Hepa/Hepb Combo 2021-05-12 00:00:00 Completed [facility] Hepa/Hepb Combo 2021-05-12 00:00:00 Completed [facility] Hepa/Hepb Combo 2021-05-12 00:00:00 Completed [facility] Hepa/Hepb Combo 2021-05-12 00:00:00 Completed [facility] Hepa/Hepb Combo 2021-05-12 00:00:00 Completed [facility] Hep A-Hep B Hep A-Hep B 2021-05-12 00:00:00 Completed Toney Renner Hep A-Hep B Hep A-Hep B 2021-05-12 00:00:00 Completed Toney Renner SARS-COV-2 COVID-19 VACCINE - (MODERNA) 2021-02-06 00:00:00 Completed [facility] SARS-COV-2 COVID-19 VACCINE - (MODERNA) 2021-02-06 00:00:00 Completed [facility] SARS-COV-2 COVID-19 VACCINE - (MODERNA) 2021-02-06 00:00:00 Completed [facility] SARS-COV-2 COVID-19 VACCINE - (MODERNA) 2021-02-06 00:00:00 Completed [facility] SARS-COV-2 COVID-19 VACCINE - (MODERNA) 2021-02-06 00:00:00 Completed [facility] SARS-COV-2 COVID-19 VACCINE - (MODERNA) 2021-02-06 00:00:00 Completed [facility] SARS-COV-2 COVID-19 VACCINE - (MODERNA) 2020-12-29 00:00:00 Completed [facility] SARS-COV-2 COVID-19 VACCINE - (MODERNA) 2020-12-29 00:00:00 Completed [facility] SARS-COV-2 COVID-19 VACCINE - (MODERNA) 2020-12-29 00:00:00 Completed [facility] SARS-COV-2 COVID-19 VACCINE - (MODERNA) 2020-12-29 00:00:00 Completed [facility] SARS-COV-2 COVID-19 VACCINE - (MODERNA) 2020-12-29 00:00:00 Completed [facility] SARS-COV-2 COVID-19 VACCINE - (MODERNA) 2020-12-29 00:00:00 Completed [facility] Moderna COVID-19 Vaccine Moderna COVID-19 Vaccine 2020-12-29 00:00:00 Completed Toney Renner Moderna COVID-19 Vaccine Moderna COVID-19 Vaccine 2020-12-29 00:00:00 Completed Toney Renner Moderna COVID-19 Vaccine 2020-12-29 00:00:00 Completed Moderna COVID-19 Vaccine 2020-12-29 00:00:00 Completed Moderna COVID-19 Vaccine 2020-12-29 00:00:00 Completed Moderna COVID-19 Vaccine 2020-12-29 00:00:00 Completed Moderna COVID-19 Vaccine 2020-12-29 00:00:00 Completed Moderna COVID-19 Vaccine 2020-12-29 00:00:00 Completed Moderna COVID-19 Vaccine 2020-12-29 00:00:00 Completed Moderna COVID-19 Vaccine 2020-12-29 00:00:00 Completed Moderna COVID-19 Vaccine 2020-12-29 00:00:00 Completed TDAP Unknown Completed [facility] Hepa/Hepb Combo Unknown Completed [facility] SARS-COV-2 COVID-19 VACCINE - (MODERNA) Unknown Completed [facility] TDAP Unknown Completed [facility] Hepa/Hepb Combo Unknown Completed [facility] SARS-COV-2 COVID-19 VACCINE - (MODERNA) Unknown Completed [facility] TDAP Unknown Completed [facility] Hepa/Hepb Combo Unknown Completed [facility] SARS-COV-2 COVID-19 VACCINE - (MODERNA) Unknown Completed [facility] TDAP Unknown Completed [facility] Hepa/Hepb Combo Unknown Completed [facility] SARS-COV-2 COVID-19 VACCINE - (MODERNA) Unknown Completed [facility] TDAP Unknown Completed [facility] Hepa/Hepb Combo Unknown Completed [facility] SARS-COV-2 COVID-19 VACCINE - (MODERNA) Unknown Completed [facility] Vital Signs Vital Name Observation Time Observation Value Comments S ource BMI (Body Mass Index) 2024-11-30 00:00:00 32.9 kg/m2 [facility] Height 2024-11-30 00:00:00 60 [in_i] [facility] Body Weight 2024-11-30 00:00:00 168.6 [lb_av] [facility] BP Systolic 2024-11-30 00:00:00 162 mm[Hg] [facility] BP Diastolic 2024-11-30 00:00:00 84 mm[Hg] [facility] Systolic blood pressure 2024-01-02 19:07:00 137 mm[Hg] [facility] Diastolic blood pressure 2024-01-02 19:07:00 84 mm[Hg] [facility] Heart rate 2024-01-02 19:07:00 73 /min [facility] Respiratory rate 2024-01-02 19:07:00 18 /min [facility] Body weight 2024-01-02 19:07:00 75.751 kg [facility] BMI 2024-01-02 19:07:00 32.61 kg/m2 [facility] Oxygen saturation in Arterial blood by Pulse oximetry 2024-01-02 19:07:00 96 /min [facility] Systolic blood pressure 2023-09-05 13:24:00 157 mm[Hg] [facility] Diastolic blood pressure 2023-09-05 13:24:00 78 mm[Hg] [facility] Heart rate 2023-09-05 13:24:00 49 /min [facility] Body temperature 2023-09-05 13:24:00 36.11 Zully [facility] Respiratory rate 2023-09-05 13:24:00 17 /min [facility] Oxygen saturation in Arterial blood by Pulse oximetry 2023-09-05 13:24:00 96 /min [facility] Body weight 2023-09-05 09:34:00 75.479 kg [facility] BMI 2023-09-05 09:34:00 32.50 kg/m2 [facility] Body height 2023-09-02 02:18:00 152.4 cm [facility] Systolic blood pressure 2023-06-22 06:30:00 104 mm[Hg] [facility] Diastolic blood pressure 2023-06-22 06:30:00 68 mm[Hg] [facility] Heart rate 2023-06-22 06:30:00 57 /min [facility] Oxygen saturation in Arterial blood by Pulse oximetry 2023-06-22 06:30:00 93 /min [facility] Body temperature 2023-06-22 03:05:00 37.22 Zully [facility] Respiratory rate 2023-06-22 03:05:00 14 /min [facility] Body weight 2023-06-22 03:05:00 78.926 kg [facility] BMI 2023-06-22 03:05:00 33.98 kg/m2 [facility] Systolic blood pressure 2023-06-16 18:30:00 140 mm[Hg] [facility] Diastolic blood pressure 2023-06-16 18:30:00 73 mm[Hg] [facility] Heart rate 2023-06-16 18:30:00 62 /min [facility] Body temperature 2023-06-16 18:30:00 36.61 Zully [facility] Respiratory rate 2023-06-16 18:30:00 16 /min [facility] Body height 2023-06-16 18:30:00 152.4 cm [facility] Body weight 2023-06-16 18:30:00 79.017 kg [facility] BMI 2023-06-16 18:30:00 34.02 kg/m2 [facility] Oxygen saturation in Arterial blood by Pulse oximetry 2023-06-16 18:30:00 96 /min [facility] Systolic blood pressure 2023-06-02 02:19:00 169 mm[Hg] [facility] Diastolic blood pressure 2023-06-02 02:19:00 89 mm[Hg] [facility] Heart rate 2023-06-02 02:19:00 68 /min [facility] Body temperature 2023-06-02 02:19:00 37.06 Zully [facility] Respiratory rate 2023-06-02 02:19:00 20 /min [facility] Oxygen saturation in Arterial blood by Pulse oximetry 2023-06-02 02:19:00 97 /min [facility] Body weight 2023-06-01 23:21:00 78.926 kg [facility] BMI 2023-06-01 23:21:00 33.98 kg/m2 [facility] Systolic blood pressure 2023-03-12 05:00:00 159 mm[Hg] [facility] Diastolic blood pressure 2023-03-12 05:00:00 81 mm[Hg] [facility] Heart rate 2023-03-12 05:00:00 56 /min [facility] Oxygen saturation in Arterial blood by Pulse oximetry 2023-03-12 05:00:00 94 /min [facility] Respiratory rate 2023-03-12 04:00:00 16 /min Simultaneous filing. User may not have seen previous data. [facility] Body temperature 2023-03-12 00:21:00 36.78 Zully [facility] Body height 2023-03-12 00:21:00 152.4 cm [facility] Body weight 2023-03-12 00:21:00 77.111 kg [facility] BMI 2023-03-12 00:21:00 33.20 kg/m2 [facility] Systolic blood pressure 2022-12-19 19:24:00 138 mm[Hg] [facility] Diastolic blood pressure 2022-12-19 19:24:00 74 mm[Hg] [facility] Heart rate 2022-12-19 19:24:00 63 /min [facility] Body temperature 2022-12-19 19:24:00 37 Zully [facility] Body height 2022-12-19 19:24:00 152.4 cm [facility] Body weight 2022-12-19 19:24:00 78.563 kg [facility] BMI 2022-12-19 19:24:00 33.83 kg/m2 [facility] Oxygen saturation in Arterial blood by Pulse oximetry 2022-12-19 19:24:00 95 /min [facility] Systolic blood pressure 2022-11-21 18:00:00 125 mm[Hg] [facility] Diastolic blood pressure 2022-11-21 18:00:00 69 mm[Hg] [facility] Respiratory rate 2022-11-21 18:00:00 18 /min [facility] Oxygen saturation in Arterial blood by Pulse oximetry 2022-11-21 18:00:00 94 /min [facility] Heart rate 2022-11-21 15:07:00 54 /min [facility] Body weight 2022-11-21 12:00:00 77.565 kg [facility] BMI 2022-11-21 12:00:00 32.31 kg/m2 [facility] Systolic blood pressure 2022-11-21 15:07:00 123 mm[Hg] [facility] Diastolic blood pressure 2022-11-21 15:07:00 67 mm[Hg] [facility] Heart rate 2022-11-21 15:07:00 54 /min [facility] Respiratory rate 2022-11-21 15:07:00 16 /min [facility] Oxygen saturation in Arterial blood by Pulse oximetry 2022-11-21 15:07:00 97 /min [facility] Body weight 2022-11-21 12:00:00 77.565 kg [facility] BMI 2022-11-21 12:00:00 32.31 kg/m2 [facility] Systolic blood pressure 2022-11-07 19:33:00 132 mm[Hg] [facility] Diastolic blood pressure 2022-11-07 19:33:00 78 mm[Hg] [facility] Heart rate 2022-11-07 19:33:00 73 /min [facility] Respiratory rate 2022-11-07 19:33:00 19 /min [facility] Body height 2022-11-07 19:33:00 154.9 cm [facility] Body weight 2022-11-07 19:33:00 77.928 kg [facility] BMI 2022-11-07 19:33:00 32.46 kg/m2 [facility] Oxygen saturation in Arterial blood by Pulse oximetry 2022-11-07 19:33:00 98 /min [facility] Systolic blood pressure 2022-10-27 17:59:00 177 mm[Hg] [facility] Diastolic blood pressure 2022-10-27 17:59:00 86 mm[Hg] [facility] Heart rate 2022-10-27 17:59:00 99 /min [facility] Body temperature 2022-10-27 17:59:00 38 Zully [facility] Respiratory rate 2022-10-27 17:59:00 20 /min [facility] Body weight 2022-10-27 17:59:00 76.658 kg [facility] BMI 2022-10-27 17:59:00 31.93 kg/m2 [facility] Oxygen saturation in Arterial blood by Pulse oximetry 2022-10-27 17:59:00 99 /min [facility] Systolic blood pressure 2022-09-03 16:57:00 136 mm[Hg] [facility] Diastolic blood pressure 2022-09-03 16:57:00 76 mm[Hg] [facility] Heart rate 2022-09-03 16:57:00 62 /min [facility] Body temperature 2022-09-03 16:57:00 36.72 Zully [facility] Respiratory rate 2022-09-03 16:57:00 17 /min [facility] Body weight 2022-09-03 16:57:00 77.066 kg [facility] BMI 2022-09-03 16:57:00 32.10 kg/m2 [facility] Oxygen saturation in Arterial blood by Pulse oximetry 2022-09-03 16:57:00 97 /min [facility] Systolic blood pressure 2022-08-06 16:32:00 137 mm[Hg] [facility] Diastolic blood pressure 2022-08-06 16:32:00 85 mm[Hg] [facility] Heart rate 2022-08-06 16:32:00 81 /min [facility] Body temperature 2022-08-06 16:32:00 37 Zully [facility] Body height 2022-08-06 16:32:00 154.9 cm [facility] Body weight 2022-08-06 16:32:00 77.111 kg [facility] BMI 2022-08-06 16:32:00 32.12 kg/m2 [facility] Oxygen saturation in Arterial blood by Pulse oximetry 2022-08-06 16:32:00 95 /min [facility] Systolic blood pressure 2022-08-02 16:25:00 120 mm[Hg] [facility] Diastolic blood pressure 2022-08-02 16:25:00 55 mm[Hg] [facility] Heart rate 2022-08-02 16:25:00 67 /min [facility] Body temperature 2022-08-02 16:25:00 36 Zully [facility] Respiratory rate 2022-08-02 16:25:00 18 /min [facility] Oxygen saturation in Arterial blood by Pulse oximetry 2022-08-02 16:25:00 96 /min [facility] Body weight 2022-08-02 08:16:00 75.978 kg [facility] BMI 2022-08-02 08:16:00 31.65 kg/m2 [facility] Body height 2022-07-30 21:03:00 154.9 cm [facility] Systolic blood pressure 2021-11-05 21:52:00 136 mm[Hg] [facility] Diastolic blood pressure 2021-11-05 21:52:00 69 mm[Hg] [facility] Heart rate 2021-11-05 21:52:00 65 /min [facility] Body height 2021-11-05 21:52:00 152.4 cm [facility] Body weight 2021-11-05 21:52:00 81.647 kg [facility] BMI 2021-11-05 21:52:00 35.15 kg/m2 [facility] BP Systolic 2024-11-02 16:39:00 154 mm[Hg] Toney Renner BP Diastolic 2024-11-02 16:39:00 82 mm[Hg] Toney Renner Weight Measured 2024-11-02 16:39:00 169.80 pounds Toney Renner Height Measured 2024-11-02 16:39:00 60.00 inches Toney Renner Body Temperature 2024-11-02 16:39:00 98.10 degrees Toney Renner Heart Rate 2024-11-02 16:39:00 Toney Renner Respiratory Rate 2024-11-02 16:39:00 18.00 /min Toney Renner BP Systolic 2024-10-29 16:54:00 164 mm[Hg] Toney F Zurdo BP Diastolic 2024-10-29 16:54:00 91 mm[Hg] Toney F Zurdo Weight Measured 2024-10-29 16:54:00 166.40 pounds Toney F Zurdo Height Measured 2024-10-29 16:54:00 60.00 inches Toney F Zurdo Body Temperature 2024-10-29 16:54:00 97.80 degrees Toney F Zurdo Heart Rate 2024-10-29 16:54:00 93.00 /min Toney F Zurdo Respiratory Rate 2024-10-29 16:54:00 16.00 /min Toney F Zurdo Body Temperature 2024-10-29 16:10:00 97.80 degrees Toney F Zurdo Heart Rate 2024-10-29 16:10:00 93.00 /min Toney F Zurdo Respiratory Rate 2024-10-29 16:10:00 16.00 /min Toney F Zurdo BP Systolic 2024-10-29 16:10:00 164 mm[Hg] Toney F Zurdo BP Diastolic 2024-10-29 16:10:00 91 mm[Hg] Toney F Zurdo Weight Measured 2024-10-29 16:10:00 166.40 pounds Toney F Zurdo Height Measured 2024-10-29 16:10:00 60.00 inches Toney F Zurdo BP Systolic 2024-09-14 10:33:00 124 mm[Hg] Toney [...] Zurdo BP Systolic 2024-03-04 17:29:00 145 mm[Hg] Toney F Zurdo BP Diastolic 2024-03-04 17:29:00 84 [...] Measured 2023-09-23 11:24:00 60.00 inches Toney F Zudro Body Temperature 2023-09-23 11:24:00 98.10 degrees Toney F Zurdo Heart Rate 2023-09-23 11:24:00 61.00 /min Toney F Zurdo Respiratory Rate 2023-09-23 11:24:00 Toney F Zurdo BP Systolic 2023-08-18 10:06:00 133 mm[Hg] Toney F Uzrdo BP Diastolic 2023-08-18 10:06:00 78 mm[Hg] Toney F Zurdo Weight Measured 2023-08-18 10:06:00 172.80 pounds Toney F Zurdo Height Measured 2023-08-18 10:06:00 60.00 inches Toney F Zurdo Body Temperature 2023-08-18 10:06:00 97.70 degrees Toney F Zurdo Heart Rate 2023-08-18 10:06:00 71.00 /min Toney F Zurdo Respiratory Rate 2023-08-18 10:06:00 Toney F Zurdo BP Systolic 2023-07-16 10:52:00 147 mm[Hg] Toney F Zurdo BP Diastolic 2023-07-16 10:52:00 76 mm[Hg] Toney F Zurdo Weight Measured 2023-07-16 10:52:00 171.80 pounds Toney F Zurdo Height Measured 2023-07-16 10:52:00 60.00 inches Toney F Zurdo Body Temperature 2023-07-16 10:52:00 98.30 degrees Tonye F Zurdo Heart Rate 2023-07-16 10:52:00 59.00 /min Toney F Zurdo Respiratory Rate 2023-07-16 10:52:00 16.00 /min Toney F Zurdo BP Systolic 2023-06-18 17:31:00 158 mm[Hg] Toney F Zurdo BP Diastolic 2023-06-18 17:31:00 86 mm[Hg] Toney F Zurdo Weight Measured 2023-06-18 17:31:00 174.40 pounds Toney F Zurdo Height Measured 2023-06-18 17:31:00 60.00 inches Toney [...] POCT GLUCOSE (AUTOMATED) 2023-09-05 13:49:00 Britney [place] [facility] MAGNESIUM 2023-09-05 10:23:00 Kathi Harrell [facility] BASIC METABOLIC PANEL (NA, K, CL, CO2, GLUCOSE, BUN, CREATININE, CA) 2023-09-05 10:23:00 [facility] 2023-09-05 10:23:00 Kathi Harrell [facility] POCT GLUCOSE (AUTOMATED) 2023-09-05 03:10:00 Britney [place] [facility] POCT GLUCOSE (AUTOMATED) 2023-09-04 22:34:00 Britney [place] [facility] POCT GLUCOSE (AUTOMATED) 2023-09-04 18:35:00 Britney [place] [facility] POCT GLUCOSE (AUTOMATED) 2023-09-04 13:36:00 Britney [place] [facility] MAGNESIUM 2023-09-04 09:05:00 Kathi Harrell [facility] BASIC METABOLIC PANEL (NA, K, CL, CO2, GLUCOSE, BUN, CREATININE, CA) 2023-09-04 09:05:00 [facility] 2023-09-04 09:05:00 [facility] POCT GLUCOSE (AUTOMATED) 2023-09-04 02:31:00 Britney [place] [facility] POCT GLUCOSE (AUTOMATED) 2023-09-03 22:48:00 Britney [place] [facility] POCT GLUCOSE (AUTOMATED) 2023-09-03 17:49:00 Britney [place] [facility] POCT GLUCOSE (AUTOMATED) 2023-09-03 13:54:00 [facility] MAGNESIUM 2023-09-03 09:06:00 Myrtle Levy [facility] COMP. METABOLIC PANEL ([id number]) 2023-09-03 09:06:00 Myrtle Levy [facility] CBC WITH DIFF 2023-09-03 09:06:00 [facility] GLYCOS[facility] HEMOGLOBIN (A1C) 2023-09-03 09:06:00 Gareth Rowan [facility] POCT GLUCOSE (AUTOMATED) 2023-09-03 02:53:00 [facility] POCT GLUCOSE (AUTOMATED) 2023-09-02 22:06:00 [facility] POCT GLUCOSE (AUTOMATED) 2023-09-02 17:45:00 [facility] POCT GLUCOSE (AUTOMATED) 2023-09-02 15:00:00 [facility] LACTIC ACID WHOLE BLOOD 2023-09-02 01:30:00 Richard East [facility] CT ABDOMEN PELVIS W CONTRAST 2023-09-01 23:55:45 Maxi Goldberg [facility] HB ECG ROUTINE & RHYTHM STRIP 2023-09-01 22:38:41 Maxi Goldberg [facility] XR CHEST 1 VW 2023-09-01 22:38:00 Maxi Goldberg [facility] LACTIC ACID WHOLE BLOOD 2023-09-01 22:30:00 Raymond Goldberg [facility] BLOOD CULTURE SCREEN 2023-09-01 22:29:00 Makeda Goldberg [facility] TROPONIN I 2023-09-01 22:29:00 Goldberg, Maxi [facility] COMP. METABOLIC PANEL ([id number]) 2023-09-01 22:29:00 Maxi Goldberg [facility] CBC WITH DIFF 2023-09-01 22:29:00 Maxi Goldberg [facility] URINALYSIS 2023-09-01 22:29:00 Maxi Goldberg [facility] COVID-19 (ID NOW RAPID TESTING) 2023-09-01 22:29:00 Ashlyn Maxi [facility] LAB ONLY COVID INTERPRETATION 2023-09-01 22:29:00 Ashlyn Maxi [facility] ASSIGNMENT OF BENEFITS 2023-09-01 22:11:31 Docto r Unassigned, Luck [facility] CONSENT/REFUSAL FOR DIAGNOSIS AND TREATMENT 2023-09-01 21:07:42 Doctor Unassigned, Luck [facility] CT ABDOMEN PELVIS W CONTRAST 2023-06-22 05:05:28 Christina Lou [facility] LIPASE 2023-06-22 03:45:00 Ne[facility] TROPONIN I 2023-06-22 03:45:00 Miguel [facility] COMP. METABOLIC PANEL ([id number]) 2023-06-22 03:45:00 Christina Lou [facility] CBC WITH DIFF 2023-06-22 03:45:00 Christina Lou [facility] URINALYSIS 2023-06-22 03:45:00 Christina [facility] CONSENT/REFUSAL FOR DIAGNOSIS AND TREATMENT 2023-06-22 02:54:50 Doctor Unassigned, Luck [facility] EKG-12 LEAD 2023-06-02 03:24:46 Betsey Boss [facility] TROPONIN I 2023-06-02 02:08:00 Betsey Boss [facility] LIPASE 2023-06-02 00:25:00 Betsey Boss [facility] MAGNESIUM 2023-06-02 00:25:00 Betsey Boss [facility] TROPONIN I 2023-06-02 00:25:00 Betsey Boss [facility] COMP. METABOLIC PANEL ([id number]) 2023-06-02 00:25:00 Betsey Boss [facility] CBC WITH DIFF 2023-06-02 00:25:00 Betsey Boss [facility] N-TERMINAL PRO-BNP 2023-06-02 00:25:00 Betsey Boss [facility] CONSENT/REFUSAL FOR DIAGNOSIS AND TREATMENT 2023-06-02 00:05:52 Doctor Unassigned, Luck [facility] XR CHEST 1 2023-06-01 23:47:16 Betsey Boss [facility] CONSENT/REFUSAL FOR DIAGNOSIS AND TREATMENT 2023-06-01 23:14:22 Doctor Unassigned, Luck [facility] AUTHORIZATION FOR RELEASE OF PHI 2023-05-11 05:01:00 Doctor Unassigned, Luck [facility] EKG-12 LEAD 2023-03-12 04:25:00 Solomon Millan [facility] TROPONIN I 2023-03-12 03:28:00 Solomon Millan [facility] CT ABDOMEN PELVIS W CONTRAST 2023-03-12 02:33:00 Solomon Millan [facility] XR CHEST 1 2023-03-12 01:12:24 Solomon Millan [facility] CK (CREATINE KINASE) + MB 2023-03-12 00:34:00 Eren Millan [facility] LIPASE 2023-03-12 00:34:00 Solomon Millan [facility] TROPONIN I 2023-03-12 00:34:00 Solomon Millan [facility] COMP. METABOLIC PANEL ([id number]) 2023-03-12 00:34:00 Solomon Millan [facility] CBC WITH DIFF 2023-03-12 00:34:00 Solomon Millan [facility] URINALYSIS 2023-03-12 00:34:00 Vasut, Solomon J [facility] N-TERMINAL PRO-BNP 2023-03-12 00:34:00 Solomon Millan [facility] NOTICE OF PRIVACY PRACTICES 2023-03-12 00:16:34 Doctor Unassigned, Luck [facility] CONSENT/REFUSAL FOR DIAGNOSIS AND TREATMENT 2023-03-12 00:16:08 Doctor Unassigned, Luck [facility] PATIENT FINANCIAL POLICY 2022-12-19 19:07:24 Doctor Unassigned, Luck [facility] CARDIAC CATHETERIZATION 2022-11-21 14:44:17 George Savage [facility] CARDIAC CATHETERIZATION 2022-11-21 14:44:17 George Savage [facility] CARDIAC CATHETERIZATION 2022-11-21 14:44:17 George Savage [facility] CARDIAC CATHETERIZATION 2022-11-21 14:44:17 George Savage [facility] BASIC METABOLIC PANEL (NA, K, CL, CO2, GLUCOSE, BUN, CREATININE, CA) 2022-11-21 12:30:00 Moira [facility] CBC WITH DIFF 2022-11-21 12:30:00 Moira [facility] PROTHROMBIN TIME / INR 2022-11-21 12:30:00 Moira [facility] BASIC METABOLIC PANEL (NA, K, CL, CO2, GLUCOSE, BUN, CREATININE, CA) 2022-11-21 12:30:00 Moira [facility] CBC WITH DIFF 2022-11-21 12:30:00 Moira [facility] PROTHROMBIN TIME / INR 2022-11-21 12:30:00 Moira [facility] OUTPATIENT CARDIAC CATHETERIZATION DOCUMENTS 2022-11-21 06:01:00 Doctor Unassigned, Luck [facility] CONSENT/REFUSAL FOR DIAGNOSIS AND TREATMENT 2022-11-07 18:46:45 Doctor Unassigned, Luck [facility] RAPID STREP SCREEN FOR GROUP A 2022-10-27 19:17:00 Maggi Calloway [facility] RAPID INFLUENZA A/B 2022-10-27 19:17:00 Maggi Calloway [facility] COVID-19 (ID NOW RAPID TESTING) 2022-10-27 19:17:00 Maggi Calloway [facility] CONSENT/REFUSAL FOR DIAGNOSIS AND TREATMENT 2022-10-27 17:51:23 Doctor Unassigned, Luck [facility] MYOCARDIUM PERFUSION STRESS AND REST 2022-08-08 18:09:00 Vasile [facility] MYOCARDIUM PERFUSION STRESS AND REST 2022-08-08 18:09:00 Vasile, [facility] MYOCARDIUM PERFUSION STRESS AND REST 2022-08-08 18:09:00 [facility], [facility] MYOCARDIUM PERFUSION STRESS AND REST 2022-08-08 18:09:00 [facility] POCT GLUCOSE (AUTOMATED) 2022-08-02 16:29:00 Britney [place] [facility] POCT GLUCOSE (AUTOMATED) 2022-08-02 12:37:00 Britney [place] [facility] BASIC METABOLIC PANEL (NA, K, CL, CO2, GLUCOSE, BUN, CREATININE, CA) 2022-08-02 09:16:00 Kyle Barkley [facility] CBC WITH DIFF 2022-08-02 09:16:[address] [facility] POCT GLUCOSE (AUTOMATED) 2022-08-01 21:34:00 Britney [place] [facility] POCT GLUCOSE (AUTOMATED) 2022-08-01 16:27:00 Britney East [facility] POCT GLUCOSE (AUTOMATED) 2022-08-01 12:37:00 Britney East [facility] POCT GLUCOSE (AUTOMATED) 2022-08-01 01:03:00 Britney East [facility] POCT GLUCOSE (AUTOMATED) 2022-07-31 21:37:00 Britney East [facility] TROPONIN I 2022-07-31 21:10:00 Destiney [facility] POCT GLUCOSE (AUTOMATED) 2022-07-31 16:36:00 William, D [facility] TRANSTHORACIC ECHO (TTE) COMPLETE 2022-07-31 13:31:00 Arun [facility] POCT GLUCOSE (AUTOMATED) 2022-07-31 12:44:00 Britney East [facility] CT CHEST PULMONARY ANGIOGRAM 2022-07-31 12:09:33 Arun [facility] TROPONIN I 2022-07-31 08:53:00 Destiney [facility] BASIC METABOLIC PANEL (NA, K, CL, CO2, GLUCOSE, BUN, CREATININE, CA) 2022-07-31 08:53:00 Destiney Avila Davina [facility] CBC WITH DIFF 2022-07-31 08:53:00 Destiney Avila Davina [facility] GLYCOSYLATED HEMOGLOBIN (A1C) 2022-07-31 05:25:00 Arun [facility] COVID-19 (ID NOW RAPID TESTING) 2022-07-31 05:22:00 Arun [facility] LAB ONLY COVID INTERPRETATION 2022-07-31 05:22:00 Arun [facility] TROPONIN I 2022-07-31 01:25:00 Destiney Avila [facility] N-TERMINAL PRO-BNP 2022-07-31 01:25:00 Arun [facility] XR CHEST 1 VW 2022-07-30 16:07:44 Destiney Blair [facility] MAGNESIUM 2022-07-30 15:53:00 Destiney Blair [facility] TROPONIN I 2022-07-30 15:53:00 Destiney Blair [facility] THYROID STIMULATING HORMONE 2022-07-30 15:53:00 Destiney Avila [facility] COMP. METABOLIC PANEL (23051) 2022-07-30 15:53:00 Destiney Blair [facility] LIPID PANEL (81300)(TOTAL CHOLESTEROL, TRIGLYCERIDES, HDL) 2022-07-30 15:53:00 Destiney Avila [facility] CBC WITH DIFF 2022-07-30 15:53:00 [facility] 2022-07-30 15:53:00 Pastora Blair [facility] ACTIVATED PARTIAL THRMPLAS RAYMOND 2022-07-30 15:53:00 Destiney Blair [facility] HB ECG ROUTINE & RHYTHM STRIP 2022-07-30 15:06:24 Destiney Blair [facility] CONSENT/REFUSAL FOR DIAGNOSIS AND TREATMENT 2022-07-30 14:45:47 Doctor Unassigned, Luck [facility] TRANSTHORACIC ECHO (TTE) COMPLETE 2021-11-05 21:52:10 Petrona Savage [facility] EXTERNAL PROVIDER - ADC REFERRAL 2021-10-09 06:01:00 Doctor Unassigned, Luck [facility] [address] Ecg Routine Ecg W/least 12 Lds W/i r 2018-04-27 00:00:00 Toney Renner Bladder Surgery 2008-05-27 00:00:00 [facility] Knee [facility] Plan of Care Planned Activity Planned Date Details Comments Source Goal Plan of Care Note [code = 60064-8] Goal Plan of Care Note [code = 85679-7] Goal Plan of Care Note [code = 66031-3] Goal Plan of Care Note [code = 64432-8] Goal Plan of Care Note [code = 66554-8] Goal Plan of Care Note [code = 14636-7] Goal Plan of Care Note [code = 01057-6] Goal Plan of Care Note [code = 90546-7] Goal Plan of Care Note [code = 09575-6] Goal Plan of Care Note [code = 26368-9] Goal Plan of Care Note [code = 55154-8] Goal Plan of Care Note [code = 51248-6] Goal Plan of Care Note [code = 68259-8] Goal Plan of Care Note [code = 13483-7] Goal Plan of Care Note [code = 53294-6] Goal Plan of Care Note [code = 93822-9] Goal Plan of Care Note [code = 67042-4] Goal Plan of Care Note [code = 08219-8] Goal Plan of Care Note [code = 71846-3] Goal Plan of Care Note [code = 83137-9] Goal Plan of Care Note [code = 90316-4] Goal Plan of Care Note [code = 96968-5] Goal Plan of Care Note [code = 60661-3] Goal Plan of Care Note [code = 94738-7] Goal Plan of Care Note [code = 72704-9] Goal Plan of Care Note [code = 21003-0] Goal Plan of Care Note [code = 13384-0] Goal Plan of Care Note [code = 86578-2] Goal Plan of Care Note [code = 17395-9] Goal Plan of Care Note [code = 77444-8] Goal Plan of Care Note [code = 85866-5] Goal Plan of Care Note [code = 69813-2] Goal Plan of Care Note [code = 86754-7] Goal Plan of Care Note [code = 92355-6] Goal Plan of Care Note [code = 12230-1] Goal Plan of Care Note [code = 15631-2] Goal Plan of Care Note [code = 57605-9] Goal Plan of Care Note [code = 62960-0] Goal Plan of Care Note [code = 10813-1] Goal Plan of Care Note [code = 52552-0] Goal Plan of Care Note [code = 69830-4] Goal Plan of Care Note [code = 56919-6] Goal Plan of Care Note [code = 13565-9] Goal Plan of Care Note [code = 35621-8] Goal Plan of Care Note [code = 58743-4] Goal Plan of Care Note [code = 84009-1] Goal Plan of Care Note [code = 79985-8] Goal Plan of Care Note [code = 16035-0] Goal Plan of Care Note [code = 14901-8] Goal Plan of Care Note [code = 62492-3] Goal Plan of Care Note [code = 36435-2] Goal Plan of Care Note [code = 30919-7] Goal Plan of Care Note [code = 71489-2] Goal Plan of Care Note [code = 78195-2] Goal Plan of Care Note [code = 64660-8] Goal Plan of Care Note [code = 85118-8] Goal Plan of Care Note [code = 09913-0] Goal Plan of Care Note [code = 29547-7] Goal Plan of Care Note [code = 20628-6] Goal Plan of Care Note [code = 56985-8] Goal Plan of Care Note [code = 14591-3] Goal Plan of Care Note [code = 45266-4] Goal Plan of Care Note [code = 02258-8] Goal Plan of Care Note [code = 75455-8] Goal Plan of Care Note [code = 80662-1] Goal Plan of Care Note [code = 07651-2] Goal Plan of Care Note [code = 69588-2] Goal Plan of Care Note [code = 91444-7] Goal Plan of Care Note [code = 19674-3] Goal Plan of Care Note [code = 24220-6] Goal Plan of Care Note [code = 75254-5] Goal Plan of Care Note [code = 05505-0] Goal Plan of Care Note [code = 10758-8] Goal Plan of Care Note [code = 79857-6] Goal Plan of Care Note [code = 10197-7] Goal Plan of Care Note [code = 00240-4] Goal Plan of Care Note [code = 25910-0] Goal Plan of Care Note [code = 90711-5] Goal Plan of Care Note [code = 99884-9] Goal Plan of Care Note [code = 90888-6] Goal Plan of Care Note [code = 41160-2] Goal Plan of Care Note [code = 57604-9] Goal Plan of Care Note [code = 21017-2] Goal Plan of Care Note [code = 77004-2] Goal Plan of Care Note [code = 35074-5] Goal Plan of Care Note [code = 68754-6] Goal Plan of Care Note [code = 72350-3] Goal Plan of Care Note [code = 51380-1] Goal Plan of Care Note [code = 14647-5] Goal Plan of Care Note [code = 40238-9] Goal Plan of Care Note [code = 23221-5] Goal Plan of Care Note [code = 82596-3] Goal Plan of Care Note [code = 52773-9] Goal Plan of Care Note [code = 61586-8] Goal Plan of Care Note [code = 39507-6] Goal Plan of Care Note [code = 37106-3] Goal Plan of Care Note [code = 09422-1] Goal Plan of Care Note [code = 15090-4] Goal Plan of Care Note [code = 64786-5] Goal Plan of Care Note [code = 67836-8] Goal Plan of Care Note [code = 49220-1] Goal Plan of Care Note [code = 99955-6] Goal Plan of Care Note [code = 56851-4] Goal Plan of Care Note [code = 40156-3] Goal Plan of Care Note [code = 02309-6] Goal Plan of Care Note [code = 71624-7] Goal Plan of Care Note [code = 94007-3] Goal Plan of Care Note [code = 99051-9] Goal Plan of Care Note [code = 43753-7] Goal Plan of Care Note [code = 91385-6] Goal Plan of Care Note [code = 97488-2] Goal Plan of Care Note [code = 73255-7] Goal Plan of Care Note [code = 30337-9] Goal Plan of Care Note [code = 94241-0] Goal Plan of Care Note [code = 75320-5] Goal Plan of Care Note [code = 96899-6] Goal Plan of Care Note [code = 84703-5] Goal Plan of Care Note [code = 13213-3] Goal Plan of Care Note [code = 26645-6] Goal Plan of Care Note [code = 65152-0] Goal Plan of Care Note [code = 89842-4] Goal Plan of Care Note [code = 28288-1] Goal Plan of Care Note [code = 25388-4] Goal Plan of Care Note [code = 71903-4] Goal Plan of Care Note [code = 79148-5] Goal Plan of Care Note [code = 46505-3] Goal Plan of Care Note [code = 50860-1] Goal Plan of Care Note [code = 34108-0] Goal Plan of Care Note [code = 89262-7] Goal Plan of Care Note [code = 15495-7] Goal Plan of Care Note [code = 52829-5] Goal Plan of Care Note [code = 89331-2] Goal Plan of Care Note [code = 55497-8] Goal Plan of Care Note [code = 10364-6] Goal Plan of Care Note [code = 33389-6] Goal Plan of Care Note [code = 36870-9] Goal Plan of Care Note [code = 71457-2] Goal Plan of Care Note [code = 41550-0] Goal Plan of Care Note [code = 69644-6] Goal Plan of Care Note [code = 04912-6] Goal Plan of Care Note [code = 24819-0] Goal Plan of Care Note [code = 03375-3] Goal Plan of Care Note [code = 73510-2] Goal Plan of Care Note [code = 78103-3] Goal Plan of Care Note [code = 43414-9] Goal Plan of Care Note [code = 58638-4] Goal Plan of Care Note [code = 93559-6] Goal Plan of Care Note [code = 85333-6] Goal Plan of Care Note [code = 55233-7] Goal Plan of Care Note [code = 39510-3] Goal Plan of Care Note [code = 15320-7] Goal Plan of Care Note [code = 83529-0] Goal Plan of Care Note [code = 17229-4] Goal Plan of Care Note [code = 00457-4] Goal Plan of Care Note [code = 59512-2] Goal Plan of Care Note [code = 12821-5] Goal Plan of Care Note [code = 29820-2] Goal Plan of Care Note [code = 11855-3] Goal Plan of Care Note [code = 71203-1] Goal Plan of Care Note [code = 76590-6] Goal Plan of Care Note [code = 25248-5] Goal Plan of Care Note [code = 53890-0] Goal Plan of Care Note [code = 95495-8] Goal Plan of Care Note [code = 04037-5] Goal Plan of Care Note [code = 40050-4] Goal Plan of Care Note [code = 09562-5] Goal Plan of Care Note [code = 70762-5] Goal Plan of Care Note [code = 49967-5] Goal Plan of Care Note [code = 63668-9] Goal Plan of Care Note [code = 19380-9] Goal Plan of Care Note [code = 10114-4] Goal Plan of Care Note [code = 61838-5] Goal Plan of Care Note [code = 42044-3] Goal Plan of Care Note [code = 50454-8] Goal Plan of Care Note [code = 65451-1] Goal Plan of Care Note [code = 17780-5] Goal Plan of Care Note [code = 35109-4] Goal Plan of Care Note [code = 75756-1] Goal Plan of Care Note [code = 12579-2] Goal Plan of Care Note [code = 37428-9] Goal Plan of Care Note [code = 92156-2] Goal Plan of Care Note [code = 06707-7] Goal Plan of Care Note [code = 81658-5] Goal Plan of Care Note [code = 28695-2] Goal Plan of Care Note [code = 30756-0] Goal Plan of Care Note [code = 81607-0] Goal Plan of Care Note [code = 58625-8] Goal Plan of Care Note [code = 27304-2] Goal Plan of Care Note [code = 23280-7] Goal Plan of Care Note [code = 45595-0] Goal Plan of Care Note [code = 88683-1] Goal Plan of Care Note [code = 96836-8] Goal Plan of Care Note [code = 20615-7] Goal Plan of Care Note [code = 60453-8] Goal Plan of Care Note [code = 46687-2] Goal Plan of Care Note [code = 57075-6] Goal Plan of Care Note [code = 83972-7] Goal Plan of Care Note [code = 10902-5] Goal Plan of Care Note [code = 05294-8] Goal Plan of Care Note [code = 00050-0] Goal Plan of Care Note [code = 57052-6] Goal Plan of Care Note [code = 94337-3] Goal Plan of Care Note [code = 40271-3] Goal Plan of Care Note [code = 39799-7] Goal Plan of Care Note [code = 21348-2] Goal Plan of Care Note [code = 57141-1] Goal Plan of Care Note [code = 35561-4] Goal Plan of Care Note [code = 88274-1] Goal Plan of Care Note [code = 61570-2] Goal Plan of Care Note [code = 13853-9] Goal Plan of Care Note [code = 95166-5] Goal Plan of Care Note [code = 54244-4] Goal Plan of Care Note [code = 35820-5] Goal Plan of Care Note [code = 54521-0] Goal Plan of Care Note [code = 99749-4] Goal Plan of Care Note [code = 65115-7] Goal Plan of Care Note [code = 84179-0] Goal Plan of Care Note [code = 65767-1] Goal Plan of Care Note [code = 64893-7] Goal Plan of Care Note [code = 83272-3] Goal Plan of Care Note [code = 48976-8] Goal Plan of Care Note [code = 17964-0] Goal Plan of Care Note [code = 58853-6] Goal Plan of Care Note [code = 45297-5] Goal Plan of Care Note [code = 48839-0] Goal Plan of Care Note [code = 99972-9] Goal Plan of Care Note [code = 30639-4] Goal Plan of Care Note [code = 58741-9] Goal Plan of Care Note [code = 03337-9] Goal Plan of Care Note [code = 28208-2] Goal Plan of Care Note [code = 92086-5] Goal Plan of Care Note [code = 33340-4] Goal Plan of Care Note [code = 73732-5] Goal Plan of Care Note [code = 70463-0] Goal Plan of Care Note [code = 06325-2] Goal Plan of Care Note [code = 01731-5] Goal Plan of Care Note [code = 74970-9] Goal Plan of Care Note [code = 27147-4] Goal Plan of Care Note [code = 75524-2] Goal Plan of Care Note [code = 56826-4] Goal Plan of Care Note [code = 96942-9] Goal Plan of Care Note [code = 44978-4] Goal Plan of Care Note [code = 27109-0] Goal Plan of Care Note [code = 79376-2] Goal Plan of Care Note [code = 86265-1] Goal Plan of Care Note [code = 66322-4] Goal Plan of Care Note [code = 25028-4] Goal Plan of Care Note [code = 11944-7] Goal Plan of Care Note [code = 27337-7] Goal Plan of Care Note [code = 21691-9] Goal Plan of Care Note [code = 44621-7] Goal Plan of Care Note [code = 81252-7] Goal Plan of Care Note [code = 99918-2] Goal Plan of Care Note [code = 51132-4] Goal Plan of Care Note [code = 13931-2] Goal Plan of Care Note [code = 60595-1] Goal Plan of Care Note [code = 14675-8] Goal Plan of Care Note [code = 34876-4] Goal Plan of Care Note [code = 88537-4] Goal Plan of Care Note [code = 57759-2] Goal Plan of Care Note [code = 44725-4] Goal Plan of Care Note [code = 19851-4] Goal Plan of Care Note [code = 96007-6] Goal Plan of Care Note [code = 40100-2] Goal Plan of Care Note [code = 60327-7] Goal Plan of Care Note [code = 50039-3] Goal Plan of Care Note [code = 41707-5] Goal Plan of Care Note [code = 23781-5] Goal Plan of Care Note [code = 71017-2] Goal Plan of Care Note [code = 90603-9] Goal Plan of Care Note [code = 80747-5] Goal Plan of Care Note [code = 32699-8] Goal Plan of Care Note [code = 92126-5] Goal Plan of Care Note [code = 27424-4] Goal Plan of Care Note [code = 71621-8] Goal Plan of Care Note [code = 21620-6] Goal Plan of Care Note [code = 92262-5] Goal Plan of Care Note [code = 26841-3] Goal Plan of Care Note [code = 14481-2] Goal Plan of Care Note [code = 82723-1] Goal Plan of Care Note [code = 93547-8] Goal Plan of Care Note [code = 32137-4] Goal Plan of Care Note [code = 97601-6] Goal Plan of Care Note [code = 63487-4] Goal Plan of Care Note [code = 62226-6] Goal Plan of Care Note [code = 99038-6] Goal Plan of Care Note [code = 92209-4] Goal Plan of Care Note [code = 43850-6] Goal Plan of Care Note [code = 86602-4] Goal Plan of Care Note [code = 47931-2] Goal Plan of Care Note [code = 55179-6] Goal Plan of Care Note [code = 29066-1] Goal Plan of Care Note [code = 56870-4] Goal Plan of Care Note [code = 81202-4] Goal Plan of Care Note [code = 80210-3] Goal Plan of Care Note [code = 11567-1] Goal Plan of Care Note [code = 80790-2] Goal Plan of Care Note [code = 30373-1] Goal Plan of Care Note [code = 01206-9] Goal Plan of Care Note [code = 94367-3] Goal Plan of Care Note [code = 14215-5] Goal Plan of Care Note [code = 11778-9] Goal Plan of Care Note [code = 64641-9] Goal Plan of Care Note [code = 38076-9] Goal Plan of Care Note [code = 82798-2] Goal Plan of Care Note [code = 87925-1] Goal Plan of Care Note [code = 95056-5] Goal Plan of Care Note [code = 30530-9] Goal Plan of Care Note [code = 74549-4] Goal Plan of Care Note [code = 63083-8] Goal Plan of Care Note [code = 76264-6] Goal Plan of Care Note [code = 29585-1] Goal Plan of Care Note [code = 08980-9] Goal Plan of Care Note [code = 16366-6] Goal Plan of Care Note [code = 71831-3] Goal Plan of Care Note [code = 35636-2] Goal Plan of Care Note [code = 27033-0] Goal Plan of Care Note [code = 51352-2] Goal Plan of Care Note [code = 05035-0] Goal Plan of Care Note [code = 34668-9] Goal Plan of Care Note [code = 04690-5] Goal Plan of Care Note [code = 01669-8] Goal Plan of Care Note [code = 42696-0] Goal Plan of Care Note [code = 70872-5] Goal Plan of Care Note [code = 40133-4] Goal Plan of Care Note [code = 74946-3] Goal Plan of Care Note [code = 91257-7] Goal Plan of Care Note [code = 89880-2] Goal Plan of Care Note [code = 64942-3] Goal Plan of Care Note [code = 55079-4] Goal Plan of Care Note [code = 25883-2] Goal Plan of Care Note [code = 46141-1] Goal Plan of Care Note [code = 98788-9] Goal Plan of Care Note [code = 95657-0] Goal Plan of Care Note [code = 66979-2] Goal Plan of Care Note [code = 98304-1] Goal Plan of Care Note [code = 88595-1] Goal Plan of Care Note [code = 85919-0] Goal Plan of Care Note [code = 10585-0] Goal Plan of Care Note [code = 31702-3] Goal Plan of Care Note [code = 18799-8] Goal Plan of Care Note [code = 69948-0] Goal Plan of Care Note [code = 84023-8] Goal Plan of Care Note [code = 98089-7] Goal Plan of Care Note [code = 75514-8] Goal Plan of Care Note [code = 45920-1] Goal Plan of Care Note [code = 49087-9] Goal Plan of Care Note [code = 65537-7] Goal Plan of Care Note [code = 60951-7] Goal Plan of Care Note [code = 45746-9] Goal Plan of Care Note [code = 06403-0] Goal Plan of Care Note [code = 22519-3] Goal Plan of Care Note [code = 02426-1] Goal Plan of Care Note [code = 43323-2] Goal Plan of Care Note [code = 64135-1] Goal Plan of Care Note [code = 60465-4] Goal Plan of Care Note [code = 03079-6] Goal Plan of Care Note [code = 75553-0] Goal Plan of Care Note [code = 01815-6] Goal Plan of Care Note [code = 45775-3] Goal Plan of Care Note [code = 89512-8] Goal Plan of Care Note [code = 61378-6] Goal Plan of Care Note [code = 52102-0] Goal Plan of Care Note [code = 70440-9] Goal Plan of Care Note [code = 85642-0] Goal Plan of Care Note [code = 49123-0] Goal Plan of Care Note [code = 38489-4] Goal Plan of Care Note [code = 68365-8] Goal Plan of Care Note [code = 12485-2] Goal Plan of Care Note [code = 52119-2] Goal Plan of Care Note [code = 56899-9] Goal Plan of Care Note [code = 26613-4] Goal Plan of Care Note [code = 27914-9] Goal Plan of Care Note [code = 67894-9] Goal Plan of Care Note [code = 72884-4] Goal Plan of Care Note [code = 84988-6] Goal Plan of Care Note [code = 17636-0] Goal Plan of Care Note [code = 45888-3] Goal Plan of Care Note [code = 45684-4] Goal Plan of Care Note [code = 67908-9] Goal Plan of Care Note [code = 90994-8] Goal Plan of Care Note [code = 78161-9] Goal Plan of Care Note [code = 82951-8] Goal Plan of Care Note [code = 26749-4] Goal Plan of Care Note [code = 59751-4] Goal Plan of Care Note [code = 66292-7] Goal Plan of Care Note [code = 39225-7] Goal Plan of Care Note [code = 97991-0] Goal Plan of Care Note [code = 23861-5] Goal Plan of Care Note [code = 18775-8] Goal Plan of Care Note [code = 03766-5] Goal Plan of Care Note [code = 44166-2] Goal Plan of Care Note [code = 53089-9] Goal Plan of Care Note [code = 00765-7] Goal Plan of Care Note [code = 05581-7] Goal Plan of Care Note [code = 46836-3] Goal Plan of Care Note [code = 51524-7] Goal Plan of Care Note [code = 47343-1] Goal Plan of Care Note [code = 06978-0] Goal Plan of Care Note [code = 11570-6] Goal Plan of Care Note [code = 57555-7] Goal Plan of Care Note [code = 69036-0] Goal Plan of Care Note [code = 18057-9] Goal Plan of Care Note [code = 77791-2] Goal Plan of Care Note [code = 65786-8] Goal Plan of Care Note [code = 46022-4] Goal Plan of Care Note [code = 32076-5] Goal Plan of Care Note [code = 48907-5] Goal Plan of Care Note [code = 58034-2] Goal Plan of Care Note [code = 85188-7] Goal Plan of Care Note [code = 90351-6] Goal Plan of Care Note [code = 55297-2] Goal Plan of Care Note [code = 84215-4] Goal Plan of Care Note [code = 88562-6] Goal Plan of Care Note [code = 72292-3] Goal Plan of Care Note [code = 83759-5] Goal Plan of Care Note [code = 61889-0] Goal Plan of Care Note [code = 23772-0] Goal Plan of Care Note [code = 59369-4] Goal Plan of Care Note [code = 99769-9] Goal Plan of Care Note [code = 62264-9] Goal Plan of Care Note [code = 23572-0] Goal Plan of Care Note [code = 62784-0] Goal Plan of Care Note [code = 16633-8] Goal Plan of Care Note [code = 44786-1] Goal Plan of Care Note [code = 78778-9] Goal Plan of Care Note [code = 38762-8] Goal Plan of Care Note [code = 65755-5] Goal Plan of Care Note [code = 54112-8] Goal Plan of Care Note [code = 66160-9] Goal Plan of Care Note [code = 86087-7] Goal Plan of Care Note [code = 39650-9] Goal Plan of Care Note [code = 25448-6] Goal Plan of Care Note [code = 54809-4] Goal Plan of Care Note [code = 21868-1] Goal Plan of Care Note [code = 01092-2] Goal Plan of Care Note [code = 54213-3] Goal Plan of Care Note [code = 16287-3] Goal Plan of Care Note [code = 51982-0] Goal Plan of Care Note [code = 21094-1] Goal Plan of Care Note [code = 28223-3] Goal Plan of Care Note [code = 39872-7] Goal Plan of Care Note [code = 81643-5] Goal Plan of Care Note [code = 17839-6] Goal Plan of Care Note [code = 20545-1] Goal Plan of Care Note [code = 67877-0] Goal Plan of Care Note [code = 37876-8] Goal Plan of Care Note [code = 71337-1] Goal Plan of Care Note [code = 72481-6] Goal Plan of Care Note [code = 82710-7] Goal Plan of Care Note [code = 80311-1] Goal Plan of Care Note [code = 43193-9] Goal Plan of Care Note [code = 06397-0] Goal Plan of Care Note [code = 94097-7] Goal Plan of Care Note [code = 47315-6] Goal Plan of Care Note [code = 55730-5] Goal Plan of Care Note [code = 19071-5] Goal Plan of Care Note [code = 73249-4] Goal Plan of Care Note [code = 84301-2] Goal Plan of Care Note [code = 01405-8] Goal Plan of Care Note [code = 44891-5] Goal Plan of Care Note [code = 22164-7] Goal Plan of Care Note [code = 89471-9] Goal Plan of Care Note [code = 25931-8] Goal Plan of Care Note [code = 64379-9] Goal Plan of Care Note [code = 03271-7] Encounters Start Date/Time End Date/Time Encounter Type Admission Type Attending [facility] Facility Care Department Encounter ID Source 2025-01-03 10:00:00 2025-01-03 10:00:00 Outpatient Shamika SAVAGE BHAVESHANNE MARIEMARCELA [facility] [id number] [facility] 2024-12-31 10:00:00 2024-12-31 10:00:00 Outpatient PETRONA LAIRD [facility] [id number] [facility] 2024-12-06 11:13:44 2024-12-06 11:13:44 Outpatient SFA SFA [id number] 0210 Toney Renner 2024-11-30 00:00:00 2024-11-30 00:00:00 ASHU Juarez: [address], [address], [place] [address] , Ph. [facility] - GC_GCBZW_Yasmine Rollins* [id number] [facility] 2024-11-02 16:37:36 2024-11-02 16:37:36 Outpatient SFA SFA 7 Toney Cowan Zurdo 2024-11-02 00:00:00 2024-11-02 00:00:00 Outpatient Visit SFA [id number]-[id number] Toney Renner 2024-10-29 15:54:49 2024-10-29 15:54:49 Outpatient SFA SFA 102 Toney Cowan Zurdo 2024-10-29 00:00:00 2024-10-29 00:00:00 Outpatient Visit SFA [id number] Toney Cowan Zurdo 2024-09-14 10:15:47 2024-09-14 10:15:47 Outpatient SFA SFA 1119 Toney Cowan Zurdo 2024-09-14 00:00:00 2024-09-14 00:00:00 Outpatient Visit SFA [id number] Toney Cowan Zurdo 2024-09-02 11:12:02 2024-09-02 11:12:02 Outpatient SFA SFA 1107 Toney Cowan Zurdo 2024-09-02 00:00:00 2024-09-02 00:00:00 Outpatient Visit SFA [id number] [id number]-b [id number] Toney Renner 2024-09-01 10:00:00 2024-09-01 10:00:00 Outpatient PRETTY SANCHEZ HAIDER [facility] [id number] [facility] 2024-07-02 11:06:04 2024-07-02 11:06:04 Outpatient SFA SFA [id number] Toney Renner 2024-07-02 00:00:00 2024-07-02 00:00:00 Outpatient Visit SFA [id number] [id number] [id number] Toney Renner 2024-06-19 10:45:53 2024-06-19 10:45:53 Outpatient SFA SFA 823 Toney Renner 2024-06-19 00:00:00 2024-06-19 00:00:00 Outpatient Visit SFA [id number] ecc-[id number] [id number] Toney Renner 2024-06-11 09:45:29 2024-06-11 09:45:29 Outpatient SFA SFA 16 Toney Renner 2024-06-11 00:00:00 2024-06-11 00:00:00 Outpatient Visit SFA [id number] Toney Renner 2024-04-14 08:49:42 2024-04-14 08:49:42 Outpatient SFA SFA 618 Toney Renner 2024-03-06 11:42:26 2024-03-06 11:42:26 Outpatient SFA SFA 11 Toney Renner 2024-03-04 17:23:24 2024-03-04 17:23:24 Outpatient SFA SFA 0509 Toney Renner 2024-03-04 00:00:00 2024-03-04 00:00:00 Outpatient Visit SFA [id number] Toney Renner 2024-02-02 10:23:11 2024-02-02 10:23:11 Outpatient SFA SFA [id number] Toney Renner 2024-01-28 10:30:00 2024-01-28 10:30:00 Outpatient PRETTY SANCHEZ HAIDER [facility] [id number] [facility] 2024-01-27 10:00:35 2024-01-27 10:00:35 Outpatient SFA [facility] 0402 Toney Renner 2024-01-02 13:40:00 2024-01-02 13:40:00 [facility] 1.2.840.114 350.1.13.10 4.2.7.2.686 [id number] [facility] 2024-01-02 13:40:00 2024-01-02 13:26:56 Outpatient R [facility]AVESH [facility] [id number] [facility] 2023-12-19 13:00:00 2023-12-19 13:00:00 Outpatient R BHAVESH [facility] [id number] [facility] 2023-11-27 09:12:02 2023-11-27 09:12:02 Outpatient SFA [facility] 0201 Toney Renner 2023-11-17 10:15:00 2023-11-17 10:15:00 Outpatient R FABIAN GARCIA [facility] [id number] [facility] 2023-11-10 14:06:58 2023-11-10 14:06:58 Outpatient SFA [facility] 0115 Toney Renner 2023-10-03 00:00:00 2023-10-03 00:00:00 Outpatient GC_GCBZW_Ka diyala_S [facility] [id number] [facility] 2023-09-25 10:00:00 2023-09-25 10:00:00 Outpatient R LANDEN PERSAUD CHOCKALINGA M [facility] [id number] [facility] 2023-09-23 11:17:46 2023-09-23 11:17:46 Outpatient SFA [facility] 1128 Toney Renner 2023-09-22 11:07:05 2023-09-22 11:07:05 Outpatient SFA [facility] 1127 Toney Renner 2023-09-11 10:20:00 2023-09-11 10:20:00 Outpatient R LANDEN PERSAUD CHOCKALINGA M [facility] [id number] [facility] 2023-09-08 00:00:00 2023-09-08 00:00:00 Transition of Care Abdelrahman Leone ..840.114 350.1.13.10 4.2.7.2.686 [id number] [facility] 2023-09-01 15:37:00 2023-09-05 11:33:00 Inpatient Fabio KEISHA [facility] [id number] [facility] 2023-09-01 15:37:00 2023-09-05 11:33:00 Hospital Encounter Maxi Goldberg David [facility] ..840.114 350.1.13.10 4.2.7.2.686 [id number] [facility] 2023-09-05 00:00:00 2023-09-05 00:00:00 Outpatient GC_GCBZW_Ka diyala_S PRIV PRIV [id number] [facility] 2023-08-18 09:55:00 2023-08-18 09:55:00 Outpatient [facility] 1023 Toney Renner 2023-08-08 00:00:00 2023-08-08 00:00:00 Outpatient GC_GCBZW_Ka diyala_S PRIV PRIV [id number] [facility] 2023-07-22 00:00:00 2023-07-22 00:00:00 Telephone Petrona Savage [facility] ..840.114 350.1.13.10 4.2.7.2.686 [id number] [facility] 2023-07-21 10:20:00 2023-07-21 23:59:00 Hospital Encounter Radiology [facility] 1.840.114 350.1.13.10 4.2.7.2.686 [id number] [facility] 2023-07-21 00:00:00 2023-07-21 23:59:00 Outpatient R RADIOLOGY [facility] [id number] [facility] 2023-07-16 10:44:58 2023-07-16 10:44:58 Outpatient SFA [facility] [id number] Toney Renner 2023-07-12 00:00:00 2023-07-12 00:00:00 Outpatient GC_GCBZW_Ka diyala_S PRIV PRIV [id number] [facility] 2023-07-12 00:00:00 2023-07-12 00:00:00 Outpatient GC_GCBZW_Ka diyala_S PRIV PRIV [id number] [facility] 2023-06-25 00:00:00 2023-06-25 00:00:00 Outpatient GC_GCBZW_Ka diyala_S PRIV PRIV [id number] [facility] 2023-06-23 00:00:00 2023-06-23 00:00:00 Telephone Petrona Savage [facility] 1..840.114 350.1.13.10 4.2.7.2.686 [id number] [facility] 2023-06-21 22:13:00 2023-06-22 02:04:00 Emergency X CHRISTINA LOU [facility] ERT [id number] [facility] 2023-06-21 22:13:00 2023-06-22 02:04:00 Emergency Christina Lou [facility] 1..840.114 350.1.13.10 4.2.7.2.686 [id number] [facility] 2023-06-19 13:21:09 2023-06-19 13:21:09 Outpatient SFA [facility] 24 Toney Renner 2023-06-18 17:26:11 2023-06-18 17:26:11 Outpatient SFA [facility] 0823 Toney Renner 2023-06-17 00:00:00 2023-06-17 00:00:00 [place] [address].[place].840.114 350.1.13.10 4.2.7.2.686 [id number] [facility] 2023-06-16 13:40:00 2023-06-16 13:44:41 Outpatient R BHAVESH [facility] [id number] [facility] 2023-06-16 13:40:00 2023-06-16 13:44:41 [place] [address].2.840.114 350.1.13.10 4.2.7.2.686 [id number] [facility] 2023-06-01 18:27:00 2023-06-02 00:35:00 Emergency X BETSEY BOSS [facility] ERT [id number] [facility] 2023-06-01 18:27:00 2023-06-02 00:35:00 Emergency Enoch Betsey [facility] 1.2.840.114 350.1.13.10 4.2.7.2.686 [id number] [facility] 2023-06-02 00:00:00 2023-06-02 00:00:00 Outpatient GC_GCBZW_Ka azar_S PRIV [facility] [id number] [facility] 2023-05-10 01:24:00 2023-05-12 11:58:00 Inpatient ER SALLY [facility] [id number] [facility] 2023-05-11 00:00:00 2023-05-11 00:00:00 Orders Only Doctor Unassigned, Luck [facility] 1..840.114 350.1.13.10 4.2.7.2.686 [id number] [facility] 2023-05-09 21:32:00 2023-05-09 21:32:00 Emergency ER TANNER VAZ [facility] [id number] [facility] 2023-05-09 00:00:00 2023-05-09 00:00:00 Outpatient GC_GCBZW_Ka diyala_S [facility] [id number] [facility] 2023-05-02 14:05:53 2023-05-02 14:05:53 Outpatient SFA [facility] [id number] Toney F Zurdo 2023-04-28 10:00:00 2023-04-28 10:00:00 Outpatient SHANE AGUERO [facility] [id number] [facility] 2023-03-23 09:38:00 2023-03-23 13:02:00 Emergency ER MONA MOSS [facility] [id number] [facility] 2023-03-23 09:38:00 2023-03-23 13:02:00 emergency [id number] [id number] 2023-03-11 19:23:00 2023-03-12 00:12:00 Emergency X SOLOMON MILLAN [facility] ERT [id number] [facility] 2023-03-11 19:23:00 2023-03-12 00:12:00 Emergency Solomon Millan [facility] 1..840.114 350.1.13.10 4.2.7.2.686 [id number] [facility] 2023-02-20 09:20:00 2023-02-20 09:20:00 Outpatient ALICIA MENDOZA [facility] [id number] [facility] 2023-01-23 15:27:35 2023-01-23 15:27:35 Outpatient SFA [facility] [id number] Toney Renner 2023-01-23 08:40:00 2023-01-23 08:40:00 Outpatient R ALICIA FARRELL [facility] [id number] [facility] 2022-12-19 13:20:00 2022-12-19 13:49:10 Outpatient R [facility] [id number] [facility] 2022-12-19 13:20:00 2022-12-19 13:49:10 [facility].114 350.1.13.10 4.2.7.2.686 [id number] [facility] 2022-12-19 00:00:00 2022-12-19 00:00:00 Orders Only Doctor Unassigned, Luck [facility] 1..114 350.1.13.10 4.2.7.2.686 [id number] [facility] 2022-11-21 06:14:00 2022-11-21 12:27:00 [facility] [id number] 2022-11-21 06:14:00 2022-11-21 12:27:00 Hospital Encounter Vasile [facility] 1..114 350.1.13.10 4.2.7.2.686 [id number] [facility] 2022-11-21 07:10:00 2022-11-21 09:10:00 Surgery Pretty Pizarro [facility] 1..114 350.1.13.10 4.2.7.2.686 [id number] [facility] 2022-11-21 00:00:00 2022-11-21 00:00:00 Orders Only Doctor Unassigned, Luck [facility] 1.2.840.114 350.1.13.10 4.2.7.2.686 [id number] [facility] 2022-11-13 13:55:43 2022-11-13 13:55:43 Outpatient [facility] [id number] Toney Renner 2022-11-13 00:00:00 2022-11-13 00:00:00 Outpatient Visit [id number] 2022-11-07 13:40:00 2022-11-07 13:48:05 Outpatient R VASILE [facility] [id number] [facility] 2022-11-07 13:40:00 2022-11-07 13:48:05 Office Visit Vasile [facility] 1..840.114 350.1.13.10 4.2.7.2.686 [id number] [facility] 2022-11-07 00:00:00 2022-11-07 00:00:00 Orders Only Doctor Unassigned, Luck [facility] 1.2.840.114 350.1.13.10 4.2.7.2.686 [id number] [facility] 2022-10-29 13:00:00 2022-10-29 13:00:00 Outpatient R [facility] [id number] [facility] 2022-10-28 00:00:00 2022-10-28 00:00:00 Telephone Unassigned, Cath/Ep [facility] 1.840.114 350.1.13.10 4.2.7.2.686 [id number] [facility] 2022-10-27 11:59:00 2022-10-27 14:26:00 Emergency X MAGGI CALLOWAY [facility] ERT [id number] [facility] 2022-10-27 11:59:00 2022-10-27 14:26:00 Emergency Maggi Calloway E [facility] 1.840.114 350.1.13.10 4.2.7.2.686 [id number] [facility] 2022-10-10 11:07:36 2022-10-10 11:07:36 Outpatient [facility] [id number] [address] 2022-10-10 00:00:00 2022-10-10 00:00:00 Outpatient Visit [id number] -afcf-[id number] 5z8-52oe-y fcf-58a1a7 [id number] 2022-09-05 00:00:00 2022-09-05 00:00:00 Outpatient Visit [id number]- [id number] -5i02-[id number] [id number]-8 [id number]-[id number] [id number] 2022-09-03 11:00:00 2022-09-03 11:16:40 Outpatient R PETRONA SAVAGE [facility] [id number] [facility] 2022-09-03 11:00:00 2022-09-03 11:16:40 Office Visit Petrona Savage [facility] PROFESS[facility] 1..840.114 350.1.13.10 4.2.7.2.686 [id number] [facility] 2022-08-13 00:00:00 2022-08-13 00:00:00 Outpatient Visit [id number] [id number] -88ca-354 [id number] j4j-4e5l-6 8ca-354d7f 0bbe2b 2022-08-13 00:00:00 2022-08-13 00:00:00 Telephone Vasile [facility]ESS[facility] 1.2.840.114 350.1.13.10 4.2.7.2.686 [id number] [facility] 2022-08-08 10:46:11 2022-08-08 23:59:00 Hospital Encounter Vasile [facility] 1.2.840.114 350.1.13.10 4.2.7.2.686 [id number] [facility] 2022-08-08 10:45:57 2022-08-08 10:45:57 Hospital Encounter Vasile [facility] 1.2.840.114 350.1.13.10 4.2.7.2.686 [id number] [facility] 2022-08-08 10:45:44 2022-08-08 10:45:44 Hospital Encounter Vasile [facility] 1.2.840.114 350.1.13.10 4.2.7.2.686 [id number] [facility] 2022-08-08 10:45:30 2022-08-08 10:45:30 Outpatient R VASILE [facility] [id number] [facility] 2022-08-08 10:45:30 2022-08-08 10:45:30 Hospital Encounter Vasile [facility] 1.2.840.114 350.1.13.10 4.2.7.2.686 [id number] [facility] 2022-08-06 11:20:00 2022-08-06 12:00:00 [facility] 1.84.114 350.1.13.10 4.2.7.2.686 [id number] [facility] 2022-08-06 11:20:00 2022-08-06 11:20:00 Outpatient R LASHONDA LILA [facility] [id number] [facility] 2022-08-05 00:00:00 2022-08-05 00:00:00 Outpatient R [facility] [id number] [facility] 2022-08-05 00:00:00 2022-08-05 00:00:00 Transition of Care Lisette Peck [facility] 1.84.114 350.1.13.10 4.2.7.2.686 [id number] [facility] 2022-08-03 10:23:13 2022-08-03 10:23:13 Outpatient SFA [facility] [id number] Toney Renner 2022-07-30 10:09:00 2022-08-02 14:14:00 Outpatient X KARTHIK HUDDLESTON [facility] [id number] [facility] 2022-07-30 10:09:00 2022-08-02 14:14:00 Emergency Destiney Blair David Abdullah, Yaman [facility] 1..114 350.1.13.10 4.2.7.2.686 [id number] [facility] 2022-08-02 00:00:00 2022-08-02 00:00:00 Telephone Petrona Savage [facility] PROFESSIO NAL [facility]ILD[facility] 1.84.114 350.1.13.10 4.2.7.2.686 [id number] [facility] 2022-07-18 00:00:00 2022-07-18 00:00:00 Outpatient Visit [id number] -[id number]-[id number] [id number]-134aa4 f61cef 2022-06-06 00:00:00 2022-06-06 00:00:00 Outpatient Visit [id number] 5kl1-58d2 -[id number] eb2-45b9-8 [id number] 2f1fbe 2022-05-30 00:00:00 2022-05-30 00:00:00 Outpatient Visit [id number] [id number] -1f44-6nz [id number] [id number] a26-1un69r [id number] 2022-05-14 00:00:00 2022-05-14 00:00:00 Outpatient Visit nvry7qne- j1yp-6382 -s79v-c13 [id number] mykg7dom-y 0ed-4477-b 77d-[id number] [id number] 2022-05-02 00:00:00 2022-05-02 00:00:00 Outpatient Visit [id number] -[id number] [id number] 487-49ce-[id number] [id number] [id number] 2021-12-20 00:00:00 2021-12-20 00:00:00 Outpatient R PETRONA SAVAGE [facility] [id number] [facility] 2021-11-23 00:00:00 2021-11-23 00:00:00 Telephone Petrona Savage [facility] 1.2.840.114 350.1.13.10 4.2.7.2.686 [id number] [facility] 2021-11-05 14:58:39 2021-11-05 23:59:00 Outpatient R PETRONA SAVAGE [facility] [id number] [facility] 2021-11-05 14:58:39 2021-11-05 23:59:00 Hospital Encounter Bhavesh Savagemarcela [facility] 1.2.840.114 350.1.13.10 4.2.7.2.686 [id number] [facility] 2021-10-29 15:40:00 2021-10-29 16:06:16 Outpatient R PETRONA SAVAGE [facility] [id number] [facility] 2021-10-09 00:00:00 2021-10-09 00:00:00 Orders Only Doctor Unassigned, Luck [facility] 1.2.840.114 350.1.13.10 4.2.7.2.686 [id number] [facility] Results Test Description Test Time Test Comments Results Result Co mments Source Ursula López, [id number] 10:43:00SPECIMEN NUMBER: [id number] CULTURE, URINE SPECIMEN NUMBER: [id number] SOURCE: URINE REPORT STATUS: FINAL FINAL REPORT: 09/08/2024 NO SPECIMEN RECEIVED FOR TESTING. CHARGES DELETED. CULTURE, [id number] 00:00:00* Test Item Value Reference Range Interpretation Comme nts CULTURE, URINE (test code = 18921) SPECIMEN NUMBER: [id number] Toney RennerCULTBG, [id number] 00:00:00* Test Item Value Reference Range Interpretation Comme nts CULTURE, URINE (test code = 62608) SPECIMEN NUMBER: [id number] Toney RennerCULTBG, [id number] 00:00:00* Test Item Value Reference Range Interpretation Comme nts CULTURE, URINE (test code = 40798) SPECIMEN NUMBER: [id number] Toney RennerHEMOGLOBIN [id number] 21:40:28* Test Item Value Reference Range Interpretation Comme nts HEMOGLOBIN A1c (test code = 64601) 9.2 % 4.2-5.6 H [employer] GUIDELINES FOR HGB A1C: [...] ALTERNATE TESTING OR LABORATORY CONSULTATION. COMPREHENSIVE METABOLIC [id number] 06:52:05* Test Item Value Reference Range Interpretation Comme nts GLUCOSE (test code = 2217) 206 MG/DL 70-99 H BUN (test code = 220) 16 MG/DL 8-23 CREATININE (test code = 2214) 0.53 MG/DL 0.60-1.30 L eGFR (2020 CKD-EPI) (test co de = 24483) 98 ML/MIN/1.73 >60 CALC BUN/CREAT (test code = 2235) 30 RATIO 6-28 H SODIUM (test code = 2231) 144 MEQ/L 133-146 POTASSIUM (test code = 2228) 4.9 MEQ/L 3.5-5.4 CHLORIDE (test code = 2215) 102 MEQ/L 95-107 CARBON DIOXIDE (test code = 2206) 24 MEQ/L 19-31 CALCIUM (test code = 2209) 10.6 MG/DL 8.5-10.5 H PROTEIN, TOTAL (test code = 2229) 8.0 G/DL 6.1-8.3 ALBUMIN (test code = 2201) 4.5 G/DL 3.5-5.2 CALC GLOBULIN (test code = 2240) 3.5 G/DL 1.9-3.7 CALC A/G RATIO (test code = 2234) 1.3 RATIO 1.0-2.6 BILIRUBIN, TOTAL (test code = 2207) 0.5 MG/DL <=1.2 ALKALINE PHOSPHATASE (test code = 2204) 100 U/L 40-142 AST (test code = 2218) 25 U/L 9-40 ALT (test code = 2219) 24 U/L 5-40 LIPID [id number] 06:52:05* Test Item Value Reference Range Interpretation [...] SPECIMENS. FOR MOREINFORMATION, SEE CLIENT ANNOUNCEMENT AT [email or web address] RISK RATIO LDL/HDL (test code = 2238) 1.47 RATIO <3.22 UNLESS OTHERW ISE INDICATED, ALL TESTING PERFORMED AT [facility] [address] [place] [address] HOOP CUTTER: LILA SHANNON M.D. CLIA NUMBER [id number] [facility] [place]. [id number] SEDIMENTATION [id number] 04:12:31* Test Item Value Reference Range Interpretation Comme nts SEDIMENTATION RATE (test cod e = 1017) 10 MM/HOUR 0-20 HEMOGLOBIN [id number] 00:00:00* Test Item Value Reference Range Interpretation Comme nts HEMOGLOBIN A1c (test code = 97892) 9.2 % Toney RennerCOMPREHENSIVE METABOLIC [id number] 00:00:00* Test Item Value Reference Range Interpretation Comme nts GLUCOSE (test code = 2217) 206 MG/DL BUN (test code = 2208) 16 MG/DL CREATININE (test code = 2214) 0.53 MG/DL eGFR (2020 CKD-EPI) (test co de = 46881) 98 ML/MIN/1.73 CALC BUN/CREAT (test code = [...] (test code = 2219) 24 U/L Toney Cowan AustinSEDIMENTATION [id number] 00:00:00* Test Item Value Reference Range Interpretation Comme nts SEDIMENTATION RATE (test cod e = 1017) 10 MM/HOUR Toney RennerLIPID [id number] 00:00:00* Test Item Value Reference Range Interpretation Comme nts CHOLESTEROL (test code = 2210) 156 MG/DL TRIGLYCERIDES (test code = 2232) 105 MG/DL HDL CHOLESTEROL (test code = 2220) 55 MG/DL CALC LDL CHOL (test code = 2237) 81 MG/DL RISK RATIO LDL/HDL (test cod e = 2238) 1.47 RATIO Toney RennerHEMOGLOBIN [id number] 00:00:00* Test Item Value Reference Range Interpretation Comme nts HEMOGLOBIN A1c (test code = 07858) 9.2 % Toney RennerCOMPREHENSIVE METABOLIC [id number] 00:00:00* Test Item Value Reference Range Interpretation Comme nts GLUCOSE (test code = 2217) 206 MG/DL BUN (test code = 2208) 16 MG/DL CREATININE (test code = 2214) 0.53 MG/DL eGFR (2020 CKD-EPI) (test co de = 63520) 98 ML/MIN/1.73 CALC BUN/CREAT (test code = [...] (test code = 2219) 24 U/L Toney Cowan AustinSEDIMENTATION [id number] 00:00:00* Test Item Value Reference Range Interpretation Comme nts SEDIMENTATION RATE (test cod e = 1017) 10 MM/HOUR Toney Cowan AustinLIPID [id number] 00:00:00* Test Item Value Reference Range Interpretation Comme nts CHOLESTEROL (test code = 2210) 156 MG/DL TRIGLYCERIDES (test code = 2232) 105 MG/DL HDL CHOLESTEROL (test code = 2220) 55 MG/DL CALC LDL CHOL (test code = 2237) 81 MG/DL RISK RATIO LDL/HDL (test cod e = 2238) 1.47 RATIO Toney RennerHEMOGLOBIN [id number] 00:00:00* Test Item Value Reference Range Interpretation Comme nts HEMOGLOBIN A1c (test code = 90766) 9.2 % Toney RennerCOMPREHENSIVE METABOLIC [id number] 00:00:00* Test Item Value Reference Range Interpretation Comme nts GLUCOSE (test code = 2217) 206 MG/DL BUN (test code = 2208) 16 MG/DL CREATININE (test code = 2214) 0.53 MG/DL eGFR (2020 CKD-EPI) (test co de = 10950) 98 ML/MIN/1.73 CALC BUN/CREAT (test code = [...] code = 2219) 24 U/L Toney RennerSEDIMENTATION [id number] 00:00:00* Test Item Value Reference Range Interpretation Comme nts SEDIMENTATION RATE (test cod e = 1017) 10 MM/HOUR Toney RennerLIPID [id number] 00:00:00* Test Item Value Reference Range Interpretation Comme nts CHOLESTEROL (test code = 2210) 156 MG/DL TRIGLYCERIDES (test code = 2232) 105 MG/DL HDL CHOLESTEROL (test code = 2220) 55 MG/DL CALC LDL CHOL (test code = 2237) 81 MG/DL RISK RATIO LDL/HDL (test cod e = 2238) 1.47 RATIO Toney Salinas, [id number] 09:36:40SPECIMEN NUMBER: [id number] CULTURE, URINE SPECIMEN NUMBER: [id number] SOURCE: URINE REPORT STATUS: FINAL FINAL REPORT: 07/04/2024 <10,000 CFU/ML UROGENITAL WOLF PRESENT NO COMMON PATHOGENS UNLESS OTHERWISE INDICATED, ALL TESTING PERFORMED AT [facility] [address] [place] [address] HOOP CUTTER: LILA SHANNON M.D. CLIA NUMBER [id number] [place]. [id number] CULTURE, [id number] 00:00:00* Test Item Value Reference Range Interpretation Comme nts CULTURE, URINE (test code = 00635) SPECIMEN NUMBER: [id number] Toney Salinas, [id number] 00:00:00* Test Item Value Reference Range Interpretation Comme nts CULTURE, URINE (test code = 71848) SPECIMEN NUMBER: [id number] Toney MarcusLTURE, [id number] 00:00:00* Test Item Value Reference Range Interpretation Comme nts CULTURE, URINE (test code = 75226) SPECIMEN NUMBER: [id number] Toney RennerCULTURE, [id number] 00:00:00* Test Item Value Reference Range Interpretation Comme nts CULTURE, URINE (test code = 36837) SPECIMEN NUMBER: [id number] Toney MarcusLTBG, [id number] 00:00:00* Test Item Value Reference Range Interpretation Comme nts CULTURE, URINE (test code = 50253) SPECIMEN NUMBER: [id number] Toney RennerCULTURE, [id number] 00:00:00* Test Item Value Reference Range Interpretation Comme nts CULTURE, URINE (test code = 83004) SPECIMEN NUMBER: [id number] Toney RennerL. PNEUMOPHILA [id number] 22:19:23* Test Item Value Reference Range Interpretation [...] to establish a diagnosis. TESTING PERFORMED AT [facility] [address] [place] [address] [place]. [id number] CLIA NO. [id number] UNLESS OTHERWISE INDICATED, ALL TESTING PERFORMED AT [facility] [address] [place] [address] HOOP CUTTER: LILA SHANNON M.D. CLIA NUMBER [id number] [place]. [id number] L. PNEUMOPHILA [id number] 00:00:00* Test Item Value Reference Range Interpretation Comme nts L. PNEUMOPHILA ANTIBODIES (t est code = 2496) 1.53 IV Toney Cowan AustinL. PNEUMOPHILA [id number] 00:00:00* Test Item Value Reference Range Interpretation Comme nts L. PNEUMOPHILA ANTIBODIES (t est code = 2496) 1.53 IV Toney Cowan AustinL. PNEUMOPHILA [id number] 00:00:00* Test Item Value Reference Range Interpretation Comme nts L. PNEUMOPHILA ANTIBODIES (t est code = 2496) 1.53 IV Toney Cowan AustinL. PNEUMOPHILA [id number] 00:00:00* Test Item Value Reference Range Interpretation Comme nts L. PNEUMOPHILA ANTIBODIES (t est code = 2496) 1.53 IV Toney Cowan AustinL. PNEUMOPHILA [id number] 00:00:00* Test Item Value Reference Range Interpretation Comme nts L. PNEUMOPHILA ANTIBODIES (t est code = 2496) 1.53 IV Toney Cowan AustinL. PNEUMOPHILA [id number] 00:00:00* Test Item Value Reference Range Interpretation Comme nts L. PNEUMOPHILA ANTIBODIES (t est code = 2496) 1.53 IV Toney Cowan AustinL. PNEUMOPHILA [id number] 00:00:00* Test Item Value Reference Range Interpretation Comme nts L. PNEUMOPHILA ANTIBODIES (t est code = 2496) 1.53 IV Toney Mancilla (ANTI-NUCLEAR AB) WITH REFLEX [id number] 06:09:28* Test Item Value Reference Range Interpretation Comme nts ANTI-NUCLEAR ANTIBODIES (test code = 3506) NEGATIVE NEGATIVE Methodology is I ndirect Immunofluorescent Assay (IFA) with a titering system using [id number] cells (Hep2 cells transfected with SS-A/Ro). RENEE PATTERN (REPORTED TITER) (test code = 98740) SEE BELOW HOMOGENEOUS (test code = 63583) NEGATIVE TITER NEGATIVE SPECKLED (test code = 915835) NEGATIVE TITER NEGATIVE DENSE FINE SPECKLED (test code = 81276) NEGATIVE TITER NEGATIVE CENTROMERE (test code = 385302) NEGATIVE TITER NEGATIVE COARSE SPECKLED (test code = 202692) NEGATIVE TITER NEGATIVE DISCRETE NUCLEAR DOTS (test code = 593885) NEGATIVE TITER NEGATIVE NUCLEOLAR (test code = 959120) NEGATIVE TITER NEGATIVE NUCLEAR MEMBRANE (test code = 399844) NEGATIVE TITER NEGATIVE CYTO. RETICULAR (TIANNA) (test code = 982635) NEGATIVE NEGATIVE COMMENTS (test code = 258562) NONE METHOD (test code = 43243) (NOTE) TESTING PERFORME D BY [employer] IFA PLATFORM.THE METHOD INCLUDES A SCREEN THRESHOLD OF 1:80, DIGITIZED AND COMPUTER ALGORITHM-ASSISTED INTERPRETATION OF TITERS AND DIGITAL PATTERNS, AND HEp-2 CELL LINE SUBSTRATE. ADDITIONAL UNUSUAL PATTERNS WILL BE GIVEN COMMENTS.FOR MORE INFORMATION, SEE [email or web address] RENEE REFLEX NUCLEAR AB [id number] 06:09:28* Test Item Value Reference Range Interpretation Comme nts ANTI-NUCLEAR ANTIBODIES (test code = 3506) NEGATIVE NEGATIVE Methodology is I ndirect Immunofluorescent Assay (IFA) with a titering system using [id number] cells (Hep2 cells transfected with SS-A/Ro). RENEE PATTERN (REPORTED TITER) (test code = 84597) SEE BELOW HOMOGENEOUS (test code = 44929) NEGATIVE TITER NEGATIVE SPECKLED (test code = 410697) NEGATIVE TITER NEGATIVE DENSE FINE SPECKLED (test code = 48923) NEGATIVE TITER NEGATIVE CENTROMERE (test code = 045200) NEGATIVE TITER NEGATIVE COARSE SPECKLED (test code = 485777) NEGATIVE TITER NEGATIVE DISCRETE NUCLEAR DOTS (test code = 087863) NEGATIVE TITER NEGATIVE NUCLEOLAR (test code = 403504) NEGATIVE TITER NEGATIVE NUCLEAR MEMBRANE (test code = 991326) NEGATIVE TITER NEGATIVE CYTO. RETICULAR (TIANNA) (test code = 779359) NEGATIVE NEGATIVE COMMENTS (test code = 279876) NONE METHOD (test code = 92200) (NOTE) TESTING PERFORME D BY [employer] IFA PLATFORM.THE METHOD INCLUDES A SCREEN THRESHOLD OF 1:80, DIGITIZED AND COMPUTER ALGORITHM-ASSISTED INTERPRETATION OF TITERS AND DIGITAL PATTERNS, AND HEp-2 CELL LINE SUBSTRATE. ADDITIONAL UNUSUAL PATTERNS WILL BE GIVEN COMMENTS.FOR MORE INFORMATION, SEE [email or web address] ting RENEE (ANTI-NUCLEAR AB) WITH REFLEX [id number] 00:00:00* Test Item Value Reference Range Interpretation Comme nts ANTI-NUCLEAR ANTIBODIES (baljinder t code = 3506) NEGATIVE RENEE PATTERN (REPORTED TITER) (test code = 75604) SEE BELOW HOMOGENEOUS (test code = 87031) NEGATIVE TITER SPECKLED (test code = 333956) NEGATIVE TITER DENSE FINE SPECKLED (test co de = 53452) NEGATIVE TITER CENTROMERE (test code = 332100) NEGATIVE TITER COARSE SPECKLED (test code = 468431) NEGATIVE TITER DISCRETE NUCLEAR DOTS (test code = 985475) NEGATIVE TITER NUCLEOLAR (test code = 637728) NEGATIVE TITER NUCLEAR MEMBRANE (test code = 684244) NEGATIVE TITER CYTO. RETICULAR (TIANNA) (test code = 616656) NEGATIVE COMMENTS (test code = 165861) NONE METHOD (test code = 85782) (NOTE) Toney Mancilla REFLEX NUCLEAR AB [id number] 00:00:00* Test Item Value Reference Range Interpretation Comme nts ANTI-NUCLEAR ANTIBODIES (baljinder t code = 3506) NEGATIVE RENEE PATTERN (REPORTED TITER) (test code = 67658) SEE BELOW HOMOGENEOUS (test code = 28383) NEGATIVE TITER SPECKLED (test code = 602103) NEGATIVE TITER DENSE FINE SPECKLED (test co de = 73987) NEGATIVE TITER CENTROMERE (test code = 217618) NEGATIVE TITER COARSE SPECKLED (test code = 409262) NEGATIVE TITER DISCRETE NUCLEAR DOTS (test code = 228325) NEGATIVE TITER NUCLEOLAR (test code = 339875) NEGATIVE TITER NUCLEAR MEMBRANE (test code = 623657) NEGATIVE TITER CYTO. RETICULAR (TIANNA) (test code = 407260) NEGATIVE COMMENTS (test code = 286093) NONE METHOD (test code = 85767) (NOTE) Toney Mancilla (ANTI-NUCLEAR AB) WITH REFLEX [id number] 00:00:00* Test Item Value Reference Range Interpretation Comme nts ANTI-NUCLEAR ANTIBODIES (baljinder t code = 3506) NEGATIVE RENEE PATTERN (REPORTED TITER) (test code = 82961) SEE BELOW HOMOGENEOUS (test code = 99572) NEGATIVE TITER SPECKLED (test code = 444842) NEGATIVE TITER DENSE FINE SPECKLED (test co de = 06431) NEGATIVE TITER CENTROMERE (test code = 888679) NEGATIVE TITER COARSE SPECKLED (test code = 949353) NEGATIVE TITER DISCRETE NUCLEAR DOTS (test code = 311677) NEGATIVE TITER NUCLEOLAR (test code = 404654) NEGATIVE TITER NUCLEAR MEMBRANE (test code = 900452) NEGATIVE TITER CYTO. RETICULAR (TIANNA) (test code = 647833) NEGATIVE COMMENTS (test code = 277659) NONE METHOD (test code = 12544) (NOTE) Toney Mancilla REFLEX NUCLEAR AB [id number] 00:00:00* Test Item Value Reference Range Interpretation Comme nts ANTI-NUCLEAR ANTIBODIES (baljinder t code = 3506) NEGATIVE RENEE PATTERN (REPORTED TITER) (test code = 54368) SEE BELOW HOMOGENEOUS (test code = 48284) NEGATIVE TITER SPECKLED (test code = 867659) NEGATIVE TITER DENSE FINE SPECKLED (test co de = 73668) NEGATIVE TITER CENTROMERE (test code = 103350) NEGATIVE TITER COARSE SPECKLED (test code = 259395) NEGATIVE TITER DISCRETE NUCLEAR DOTS (test code = 131670) NEGATIVE TITER NUCLEOLAR (test code = 357309) NEGATIVE TITER NUCLEAR MEMBRANE (test code = 422289) NEGATIVE TITER CYTO. RETICULAR (TIANNA) (test code = 097377) NEGATIVE COMMENTS (test code = 650469) NONE METHOD (test code = 02593) (NOTE) Toney Cowan Charo (ANTI-NUCLEAR AB) WITH REFLEX [id number] 00:00:00* Test Item Value Reference Range Interpretation Comme nts ANTI-NUCLEAR ANTIBODIES (baljinder t code = 3506) NEGATIVE RENEE PATTERN (REPORTED TITER) (test code = 48119) SEE BELOW HOMOGENEOUS (test code = 02898) NEGATIVE TITER SPECKLED (test code = 648696) NEGATIVE TITER DENSE FINE SPECKLED (test co de = 39080) NEGATIVE TITER CENTROMERE (test code = 975316) NEGATIVE TITER COARSE SPECKLED (test code = 896527) NEGATIVE TITER DISCRETE NUCLEAR DOTS (test code = 221989) NEGATIVE TITER NUCLEOLAR (test code = 065176) NEGATIVE TITER NUCLEAR MEMBRANE (test code = 843874) NEGATIVE TITER CYTO. RETICULAR (TIANNA) (test code = 772206) NEGATIVE COMMENTS (test code = 906430) NONE METHOD (test code = 91852) (NOTE) Toney Cowan Charo REFLEX NUCLEAR AB [id number] 00:00:00* Test Item Value Reference Range Interpretation Comme nts ANTI-NUCLEAR ANTIBODIES (baljinder t code = 3506) NEGATIVE RENEE PATTERN (REPORTED TITER) (test code = 30814) SEE BELOW HOMOGENEOUS (test code = 22134) NEGATIVE TITER SPECKLED (test code = 340856) NEGATIVE TITER DENSE FINE SPECKLED (test co de = 39532) NEGATIVE TITER CENTROMERE (test code = 467550) NEGATIVE TITER COARSE SPECKLED (test code = 222943) NEGATIVE TITER DISCRETE NUCLEAR DOTS (test code = 047285) NEGATIVE TITER NUCLEOLAR (test code = 380702) NEGATIVE TITER NUCLEAR MEMBRANE (test code = 968136) NEGATIVE TITER CYTO. RETICULAR (TIANNA) (test code = 491980) NEGATIVE COMMENTS (test code = 607617) NONE METHOD (test code = 81120) (NOTE) Toney Cowan Charo (ANTI-NUCLEAR AB) WITH REFLEX [id number] 00:00:00* Test Item Value Reference Range Interpretation Comme nts ANTI-NUCLEAR ANTIBODIES (baljinder t code = 3506) NEGATIVE RENEE PATTERN (REPORTED TITER) (test code = 79744) SEE BELOW HOMOGENEOUS (test code = 00290) NEGATIVE TITER SPECKLED (test code = 107384) NEGATIVE TITER DENSE FINE SPECKLED (test co de = 37798) NEGATIVE TITER CENTROMERE (test code = 352155) NEGATIVE TITER COARSE SPECKLED (test code = 398349) NEGATIVE TITER DISCRETE NUCLEAR DOTS (test code = 305138) NEGATIVE TITER NUCLEOLAR (test code = 471112) NEGATIVE TITER NUCLEAR MEMBRANE (test code = 564583) NEGATIVE TITER CYTO. RETICULAR (TIANNA) (test code = 647648) NEGATIVE COMMENTS (test code = 445037) NONE METHOD (test code = 00212) (NOTE) Toney Mancilla REFLEX NUCLEAR AB [id number] 00:00:00* Test Item Value Reference Range Interpretation Comme nts ANTI-NUCLEAR ANTIBODIES (baljinder t code = 3506) NEGATIVE RENEE PATTERN (REPORTED TITER) (test code = 45065) SEE BELOW HOMOGENEOUS (test code = 48470) NEGATIVE TITER SPECKLED (test code = 909346) NEGATIVE TITER DENSE FINE SPECKLED (test co de = 24584) NEGATIVE TITER CENTROMERE (test code = 589171) NEGATIVE TITER COARSE SPECKLED (test code = 619866) NEGATIVE TITER DISCRETE NUCLEAR DOTS (test code = 339187) NEGATIVE TITER NUCLEOLAR (test code = 797908) NEGATIVE TITER NUCLEAR MEMBRANE (test code = 668898) NEGATIVE TITER CYTO. RETICULAR (TIANNA) (test code = 092213) NEGATIVE COMMENTS (test code = 201525) NONE METHOD (test code = 24376) (NOTE) Toney Mancilla (ANTI-NUCLEAR AB) WITH REFLEX [id number] 00:00:00* Test Item Value Reference Range Interpretation Comme nts ANTI-NUCLEAR ANTIBODIES (baljinder t code = 3506) NEGATIVE RENEE PATTERN (REPORTED TITER) (test code = 19391) SEE BELOW HOMOGENEOUS (test code = 05659) NEGATIVE TITER SPECKLED (test code = 998922) NEGATIVE TITER DENSE FINE SPECKLED (test co de = 25469) NEGATIVE TITER CENTROMERE (test code = 803045) NEGATIVE TITER COARSE SPECKLED (test code = 365546) NEGATIVE TITER DISCRETE NUCLEAR DOTS (test code = 369890) NEGATIVE TITER NUCLEOLAR (test code = 454044) NEGATIVE TITER NUCLEAR MEMBRANE (test code = 896973) NEGATIVE TITER CYTO. RETICULAR (TIANNA) (test code = 931168) NEGATIVE COMMENTS (test code = 058005) NONE METHOD (test code = 95053) (NOTE) Toney Mancilla REFLEX NUCLEAR AB [id number] 00:00:00* Test Item Value Reference Range Interpretation Comme nts ANTI-NUCLEAR ANTIBODIES (baljinder t code = 3506) NEGATIVE RENEE PATTERN (REPORTED TITER) (test code = 79615) SEE BELOW HOMOGENEOUS (test code = 28090) NEGATIVE TITER SPECKLED (test code = 050402) NEGATIVE TITER DENSE FINE SPECKLED (test co de = 69238) NEGATIVE TITER CENTROMERE (test code = 977769) NEGATIVE TITER COARSE SPECKLED (test code = 425024) NEGATIVE TITER DISCRETE NUCLEAR DOTS (test code = 636638) NEGATIVE TITER NUCLEOLAR (test code = 843627) NEGATIVE TITER NUCLEAR MEMBRANE (test code = 165783) NEGATIVE TITER CYTO. RETICULAR (TIANNA) (test code = 988659) NEGATIVE COMMENTS (test code = 125322) NONE METHOD (test code = 54489) (NOTE) Toney Mancilla (ANTI-NUCLEAR AB) WITH REFLEX [id number] 00:00:00* Test Item Value Reference Range Interpretation Comme nts ANTI-NUCLEAR ANTIBODIES (baljinder t code = 3506) NEGATIVE RENEE PATTERN (REPORTED TITER) (test code = 80981) SEE BELOW HOMOGENEOUS (test code = 04330) NEGATIVE TITER SPECKLED (test code = 505076) NEGATIVE TITER DENSE FINE SPECKLED (test co de = 69957) NEGATIVE TITER CENTROMERE (test code = 654878) NEGATIVE TITER COARSE SPECKLED (test code = 870060) NEGATIVE TITER DISCRETE NUCLEAR DOTS (test code = 244297) NEGATIVE TITER NUCLEOLAR (test code = 476678) NEGATIVE TITER NUCLEAR MEMBRANE (test code = 271524) NEGATIVE TITER CYTO. RETICULAR (TIANNA) (test code = 853693) NEGATIVE COMMENTS (test code = 375584) NONE METHOD (test code = 28264) (NOTE) Toney Mancilla REFLEX NUCLEAR AB [id number] 00:00:00* Test Item Value Reference Range Interpretation Comme nts ANTI-NUCLEAR ANTIBODIES (baljinder t code = 3506) NEGATIVE RENEE PATTERN (REPORTED TITER) (test code = 99391) SEE BELOW HOMOGENEOUS (test code = 88195) NEGATIVE TITER SPECKLED (test code = 140359) NEGATIVE TITER DENSE FINE SPECKLED (test co de = 46856) NEGATIVE TITER CENTROMERE (test code = 542730) NEGATIVE TITER COARSE SPECKLED (test code = 255442) NEGATIVE TITER DISCRETE NUCLEAR DOTS (test code = 131577) NEGATIVE TITER NUCLEOLAR (test code = 768466) NEGATIVE TITER NUCLEAR MEMBRANE (test code = 179968) NEGATIVE TITER CYTO. RETICULAR (TINANA) (test code = 089082) NEGATIVE COMMENTS (test code = 729225) NONE METHOD (test code = 87058) (NOTE) Toney Cowan Charo (ANTI-NUCLEAR AB) WITH REFLEX [id number] 00:00:00* Test Item Value Reference Range Interpretation Comme nts ANTI-NUCLEAR ANTIBODIES (baljinder t code = 3506) NEGATIVE RENEE PATTERN (REPORTED TITER) (test code = 26332) SEE BELOW HOMOGENEOUS (test code = 38283) NEGATIVE TITER SPECKLED (test code = 693063) NEGATIVE TITER DENSE FINE SPECKLED (test co de = 00706) NEGATIVE TITER CENTROMERE (test code = 192539) NEGATIVE TITER COARSE SPECKLED (test code = 129170) NEGATIVE TITER DISCRETE NUCLEAR DOTS (test code = 981073) NEGATIVE TITER NUCLEOLAR (test code = 426150) NEGATIVE TITER NUCLEAR MEMBRANE (test code = 873610) NEGATIVE TITER CYTO. RETICULAR (TIANNA) (test code = 554113) NEGATIVE COMMENTS (test code = 588697) NONE METHOD (test code = 70506) (NOTE) Toney F Charo REFLEX NUCLEAR AB [id number] 00:00:00* Test Item Value Reference Range Interpretation Comme nts ANTI-NUCLEAR ANTIBODIES (baljinder t code = 3506) NEGATIVE RENEE PATTERN (REPORTED TITER) (test code = 73560) SEE BELOW HOMOGENEOUS (test code = 79167) NEGATIVE TITER SPECKLED (test code = 705575) NEGATIVE TITER DENSE FINE SPECKLED (test co de = 86341) NEGATIVE TITER CENTROMERE (test code = 734583) NEGATIVE TITER COARSE SPECKLED (test code = 159386) NEGATIVE TITER DISCRETE NUCLEAR DOTS (test code = 908304) NEGATIVE TITER NUCLEOLAR (test code = 194345) NEGATIVE TITER NUCLEAR MEMBRANE (test code = 742341) NEGATIVE TITER CYTO. RETICULAR (TIANNA) (test code = 429052) NEGATIVE COMMENTS (test code = 696563) NONE METHOD (test code = 09053) (NOTE) Toney Camryn ChelseaP, TUMOR [id number] 00:06:26* Test Item Value Reference Range Interpretation Comme nts AFP, TUMOR MARKER (test code = 29625) 2.79 NG/ML <=8.30 AFP, TUMOR [id number] 00:00:00* Test Item Value Reference Range Interpretation Comme nts AFP, TUMOR MARKER (test code = 20239) 2.79 NG/ML Toney Cowan AustinAFP, TUMOR [id number] 00:00:00* Test Item Value Reference Range Interpretation Comme nts AFP, TUMOR MARKER (test code = 52057) 2.79 NG/ML Toney F AustinAFP, TUMOR [id number] 00:00:00* Test Item Value Reference Range Interpretation Comme nts AFP, TUMOR MARKER (test code = 84843) 2.79 NG/ML Toney F AustinAFP, TUMOR [id number] 00:00:00* Test Item Value Reference Range Interpretation Comme nts AFP, TUMOR MARKER (test code = 00564) 2.79 NG/ML Toney F AustinAFP, TUMOR [id number] 00:00:00* Test Item Value Reference Range Interpretation Comme nts AFP, TUMOR MARKER (test code = 50494) 2.79 NG/ML Toney F AustinAFP, TUMOR [id number] 00:00:00* Test Item Value Reference Range Interpretation Comme nts AFP, TUMOR MARKER (test code = 58875) 2.79 NG/ML Toney F AustinAFP, TUMOR [id number] 00:00:00* Test Item Value Reference Range Interpretation Comme nts AFP, TUMOR MARKER (test code = 76153) 2.79 NG/ML Toney Cowan AustinHEPATIC FUNCTION [id number] 23:37:44* Test Item Value Reference Range Interpretation Comme nts PROTEIN, TOTAL (test code = 2228) 7.1 G/DL 6.1-8.3 ALBUMIN (test code = 2200) 4.2 G/DL 3.5-5.2 BILIRUBIN, TOTAL (test code = 2206) 0.6 MG/DL <=1.2 BILIRUBIN, DIRECT (test code = 2021) 0.1 MG/DL 0.0-0.3 ALKALINE PHOSPHATASE (test c ode = 2203) 85 U/L 40-142 AST (test code = 2218) 23 U/L 9-40 ALT (test code = 2219) 21 U/L 5-40 [id number] 23:37:44* Test Item Value Reference Range Interpretation Comme nts ALT (test code = 2219) 21 U/L 5-40 HEMOGLOBIN [id number] 02:59:32* Test Item Value Reference Range Interpretation Comme [facility] HEMOGLOBIN A1c (test code = 79110) 8.4 % 4.2-5.6 H [employer] GUIDELINES FOR HGB A1C: [...] OR LABORATORY CONSULTATION. CBC W/AUTO DIFF WITH [id number] 01:35:10* Test Item Value Reference Range Interpretation [...] 0.00-0.10 ABS NUCLEATED RBCS (test code = 54689) 0.00 K/UL 0.00-0.11 SGPT (ALT)2024-06-20 00:00:00* Test Item Value Reference Range Interpretation Comme nts ALT (test code = 2219) 21 U/L Toney F ZurdoCBC W/AUTO [id number] 00:00:00* Test Item Value Reference Range Interpretation [...] ABS NUCLEATED RBCS (test cod e = 05090) 0.00 K/UL Toney RennerHEMOGLOBIN [id number] 00:00:00* Test Item Value Reference Range Interpretation Comme nts HEMOGLOBIN A1c (test code = 04056) 8.4 % Toney RennerLIVER (HEPATIC) FUNCTION [id number] 00:00:00* Test Item Value Reference Range Interpretation Comme nts PROTEIN, TOTAL (test code = 2229) 7.1 G/DL ALBUMIN (test code = 2201) 4.2 G/DL BILIRUBIN, TOTAL (test code = 2207) 0.6 MG/DL BILIRUBIN, DIRECT (test code = 2) 0.1 MG/DL ALKALINE PHOSPHATASE (test c ode = 4) 85 U/L AST (test code = 2218) 23 U/L ALT (test code = 2219) 21 U/L Toney RennerSGPT (ALT)2024-06-20 00:00:00* Test Item Value Reference Range Interpretation Comme nts ALT (test code = 2219) 21 U/L Toney RennerCBC W/AUTO [id number] 00:00:00* Test Item Value Reference Range Interpretation [...] ABS NUCLEATED RBCS (test cod e = 05262) 0.00 K/UL Toney RennerHEMOGLOBIN [id number] 00:00:00* Test Item Value Reference Range Interpretation Comme kp HEMOGLOBIN A1c (test code = 76076) 8.4 % Toney RennerLIVER (HEPATIC) FUNCTION [id number] 00:00:00* Test Item Value Reference Range Interpretation [...] = 2219) 21 U/L Toney RennerCBC W/AUTO [id number] 00:00:00* Test Item Value Reference Range Interpretation [...] ABS NUCLEATED RBCS (test cod e = 57538) 0.00 K/UL Toney Cowan ZurdoHEMOGLOBIN [id number] 00:00:00* Test Item Value Reference Range Interpretation Comme nts HEMOGLOBIN A1c (test code = 83474) 8.4 % Toney Cowan ZurdoLIVER (HEPATIC) FUNCTION [id number] 00:00:00* Test Item Value Reference Range Interpretation [...] code = 2219) 21 U/L Toney Cowan ZurdoSGPT (ALT)2024-06-20 00:00:00* Test Item Value Reference Range Interpretation Comme nts ALT (test code = 2219) 21 U/L Toney Cowan ZurdoCBC W/AUTO [id number] 00:00:00* Test Item Value Reference Range Interpretation [...] ABS NUCLEATED RBCS (test cod e = 54500) 0.00 K/UL Toney RennerHEMOGLOBIN [id number] 00:00:00* Test Item Value Reference Range Interpretation Comme nts HEMOGLOBIN A1c (test code = 16267) 8.4 % Toney RennerLIVER (HEPATIC) FUNCTION [id number] 00:00:00* Test Item Value Reference Range Interpretation [...] = 2219) 21 U/L Toney RennerCBC W/AUTO [id number] 00:00:00* Test Item Value Reference Range Interpretation [...] ABS NUCLEATED RBCS (test cod e = 23587) 0.00 K/UL Toney RennerHEMOGLOBIN [id number] 00:00:00* Test Item Value Reference Range Interpretation Comme nts HEMOGLOBIN A1c (test code = 94683) 8.4 % Toney RennerLIVER (HEPATIC) FUNCTION [id number] 00:00:00* Test Item Value Reference Range Interpretation [...] = 2219) 21 U/L Toney RennerCBC W/AUTO [id number] 00:00:00* Test Item Value Reference Range Interpretation [...] ABS NUCLEATED RBCS (test cod e = 65509) 0.00 K/UL Toney RennerHEMOGLOBIN [id number] 00:00:00* Test Item Value Reference Range Interpretation Comme nts HEMOGLOBIN A1c (test code = 96530) 8.4 % Toney RennerLIVER (HEPATIC) FUNCTION [id number] 00:00:00* Test Item Value Reference Range Interpretation [...] = 2219) 21 U/L Toney RennerCBC W/AUTO [id number] 00:00:00* Test Item Value Reference Range Interpretation [...] ABS NUCLEATED RBCS (test cod e = 41901) 0.00 K/UL Toney RennerHEMOGLOBIN [id number] 00:00:00* Test Item Value Reference Range Interpretation Comme nts HEMOGLOBIN A1c (test code = 69217) 8.4 % Toney RennerLIVER (HEPATIC) FUNCTION [id number] 00:00:00* Test Item Value Reference Range Interpretation Comme nts PROTEIN, TOTAL (test code = 2229) 7.1 G/DL ALBUMIN (test code = 2201) 4.2 G/DL BILIRUBIN, TOTAL (test code = 2207) 0.6 MG/DL BILIRUBIN, DIRECT (test code = 2021) 0.1 MG/DL ALKALINE PHOSPHATASE (test c ode = 4) 85 U/L AST (test code = 2218) 23 U/L ALT (test code = 2219) 21 U/L Toney RennerLIPID [id number] 00:00:00* Test Item Value Reference Range Interpretation Comme nts CHOLESTEROL (test code = 2210) 143 MG/DL TRIGLYCERIDES (test code = 2232) 114 MG/DL HDL CHOLESTEROL (test code = 2220) 46 MG/DL CALC LDL CHOL (test code = 2237) 77 MG/DL RISK RATIO LDL/HDL (test cod e = 2238) 1.67 RATIO Toney RennerCOMPREHENSIVE METABOLIC [id number] 00:00:00* Test Item Value Reference Range Interpretation Comme nts GLUCOSE (test code = 2217) 154 MG/DL BUN (test code = 2208) 15 MG/DL CREATININE (test code = 2214) 0.55 MG/DL eGFR (2020 CKD-EPI) (test co de = 80095) 97 ML/MIN/1.73 CALC BUN/CREAT (test code = [...] = 2219) 26 U/L Toney Cowan AustinLIPID [id number] 00:00:00* Test Item Value Reference Range Interpretation Comme nts CHOLESTEROL (test code = 2210) 143 MG/DL TRIGLYCERIDES (test code = 2232) 114 MG/DL HDL CHOLESTEROL (test code = 2220) 46 MG/DL CALC LDL CHOL (test code = 2237) 77 MG/DL RISK RATIO LDL/HDL (test cod e = 2238) 1.67 RATIO Toney RennerCOMPREHENSIVE METABOLIC [id number] 00:00:00* Test Item Value Reference Range Interpretation Comme nts GLUCOSE (test code = 2217) 154 MG/DL BUN (test code = 2208) 15 MG/DL CREATININE (test code = 2214) 0.55 MG/DL eGFR (2020 CKD-EPI) (test co de = 08416) 97 ML/MIN/1.73 CALC BUN/CREAT (test code = [...] = 2219) 26 U/L Toney Cowan AustinLIPID [id number] 00:00:00* Test Item Value Reference Range Interpretation Comme nts CHOLESTEROL (test code = 2210) 143 MG/DL TRIGLYCERIDES (test code = 2232) 114 MG/DL HDL CHOLESTEROL (test code = 2220) 46 MG/DL CALC LDL CHOL (test code = 2237) 77 MG/DL RISK RATIO LDL/HDL (test cod e = 2238) 1.67 RATIO Toney RennerCOMPREHENSIVE METABOLIC [id number] 00:00:00* Test Item Value Reference Range Interpretation Comme nts GLUCOSE (test code = 2217) 154 MG/DL BUN (test code = 2208) 15 MG/DL CREATININE (test code = 2214) 0.55 MG/DL eGFR (2020 CKD-EPI) (test co de = 64217) 97 ML/MIN/1.73 CALC BUN/CREAT (test code = [...] = 2219) 26 U/L Toney Cowan AustinLIPID [id number] 00:00:00* Test Item Value Reference Range Interpretation Comme nts CHOLESTEROL (test code = 2210) 143 MG/DL TRIGLYCERIDES (test code = 2232) 114 MG/DL HDL CHOLESTEROL (test code = 2220) 46 MG/DL CALC LDL CHOL (test code = 2237) 77 MG/DL RISK RATIO LDL/HDL (test cod e = 2238) 1.67 RATIO Toney RennerCOMPREHENSIVE METABOLIC [id number] 00:00:00* Test Item Value Reference Range Interpretation Comme nts GLUCOSE (test code = 2217) 154 MG/DL BUN (test code = 2208) 15 MG/DL CREATININE (test code = 2214) 0.55 MG/DL eGFR (2020 CKD-EPI) (test co de = 35702) 97 ML/MIN/1.73 CALC BUN/CREAT (test code = [...] (test code = 2219) 26 U/L Toney Camryn CordovaLIPID [id number] 00:00:00* Test Item Value Reference Range Interpretation Comme nts CHOLESTEROL (test code = 2210) 143 MG/DL TRIGLYCERIDES (test code = 2232) 114 MG/DL HDL CHOLESTEROL (test code = 2220) 46 MG/DL CALC LDL CHOL (test code = 2237) 77 MG/DL RISK RATIO LDL/HDL (test cod e = 2238) 1.67 RATIO Toney Cowan ZurdoCOMPREHENSIVE METABOLIC [id number] 00:00:00* Test Item Value Reference Range Interpretation Comme nts GLUCOSE (test code = 2217) 154 MG/DL BUN (test code = 2208) 15 MG/DL CREATININE (test code = 2214) 0.55 MG/DL eGFR (2020 CKD-EPI) (test co de = 83459) 97 ML/MIN/1.73 CALC BUN/CREAT (test code = [...] = 2219) 26 U/L Toney Cowan AustinLIPID [id number] 00:00:00* Test Item Value Reference Range Interpretation Comme nts CHOLESTEROL (test code = 2210) 143 MG/DL TRIGLYCERIDES (test code = 2232) 114 MG/DL HDL CHOLESTEROL (test code = 2220) 46 MG/DL CALC LDL CHOL (test code = 2237) 77 MG/DL RISK RATIO LDL/HDL (test cod e = 2238) 1.67 RATIO Toney RennerCOMPREHENSIVE METABOLIC [id number] 00:00:00* Test Item Value Reference Range Interpretation Comme nts GLUCOSE (test code = 2217) 154 MG/DL BUN (test code = 2208) 15 MG/DL CREATININE (test code = 2214) 0.55 MG/DL eGFR (2020 CKD-EPI) (test co de = 62212) 97 ML/MIN/1.73 CALC BUN/CREAT (test code = [...] = 2219) 26 U/L Toney Cowan AustinLIPID [id number] 00:00:00* Test Item Value Reference Range Interpretation Comme nts CHOLESTEROL (test code = 2210) 143 MG/DL TRIGLYCERIDES (test code = 2232) 114 MG/DL HDL CHOLESTEROL (test code = 2220) 46 MG/DL CALC LDL CHOL (test code = 2237) 77 MG/DL RISK RATIO LDL/HDL (test cod e = 2238) 1.67 RATIO Toney RennerCOMPREHENSIVE METABOLIC [id number] 00:00:00* Test Item Value Reference Range Interpretation Comme nts GLUCOSE (test code = 2217) 154 MG/DL BUN (test code = 2208) 15 MG/DL CREATININE (test code = 2214) 0.55 MG/DL eGFR (2020 CKD-EPI) (test co de = 07908) 97 ML/MIN/1.73 CALC BUN/CREAT (test code = [...] code = 2219) 26 U/L Toney RennerHEMOGLOBIN [id number] 00:00:00* Test Item Value Reference Range Interpretation Comme nts HEMOGLOBIN A1c (test code = 81242) 8.6 % Toney Cowan AustinHEMOGLOBIN [id number] 00:00:00* Test Item Value Reference Range Interpretation Comme nts HEMOGLOBIN A1c (test code = 86035) 8.6 % Toney Cowan AustinHEMOGLOBIN [id number] 00:00:00* Test Item Value Reference Range Interpretation Comme nts HEMOGLOBIN A1c (test code = 87262) 8.6 % Toney Cowan AustinHEMOGLOBIN [id number] 00:00:00* Test Item Value Reference Range Interpretation Comme nts HEMOGLOBIN A1c (test code = 74357) 8.6 % Toney RennerHEMOGLOBIN [id number] 00:00:00* Test Item Value Reference Range Interpretation Comme nts HEMOGLOBIN A1c (test code = 74693) 8.6 % Toney RennerHEMOGLOBIN [id number] 00:00:00* Test Item Value Reference Range Interpretation Comme nts HEMOGLOBIN A1c (test code = 80939) 8.6 % Toney RennerHEMOGLOBIN [id number] 00:00:00* Test Item Value Reference Range Interpretation Comme nts HEMOGLOBIN A1c (test code = 01032) 8.6 % Toney Salinas, [id number] 11:54:09SPECIMEN NUMBER: [id number] CULTURE, URINE SPECIMEN NUMBER: [id number] SPECIMEN COMMENT: URINE SOURCE: URINE REPORT STATUS: FINAL FINAL REPORT: 11/29/2023 <10,000 CFU/ML UROGENITAL WOLF PRESENT NO COMMON PATHOGENSCULTURE, [id number] 00:00:00* Test Item Value Reference Range Interpretation Comme nts CULTURE, URINE (test code = 23909) SPECIMEN NUMBER: [id number] Toney MarcusLTBG [id number] 00:00:00* Test Item Value Reference Range Interpretation Comme nts CULTURE, URINE (test code = 76414) SPECIMEN NUMBER: [id number] Toney Salinas, [id number] 00:00:00* Test Item Value Reference Range Interpretation Comme nts CULTURE, URINE (test code = 33664) SPECIMEN NUMBER: [id number] Toney MarcusLTBG, [id number] 00:00:00* Test Item Value Reference Range Interpretation Comme nts CULTURE, URINE (test code = 32808) SPECIMEN NUMBER: [id number] Toney RennerCULTBG, [id number] 00:00:00* Test Item Value Reference Range Interpretation Comme nts CULTURE, URINE (test code = 92191) SPECIMEN NUMBER: [id number] Toney MarcusLTBG, [id number] 00:00:00* Test Item Value Reference Range Interpretation Comme nts CULTURE, URINE (test code = 46516) SPECIMEN NUMBER: [id number] Toney Salinas, [id number] 00:00:00* Test Item Value Reference Range Interpretation Comme nts CULTURE, URINE (test code = 52886) SPECIMEN NUMBER: [id number] Toney Salinas, [id number] 00:00:00* Test Item Value Reference Range Interpretation Comme nts CULTURE, URINE (test code = 36399) SPECIMEN NUMBER: [id number] Toney RennerCOMPREHENSIVE METABOLIC [id number] 05:44:49* Test Item Value Reference Range Interpretation Comme nts GLUCOSE (test code = 7) 157 MG/DL 70-99 H BUN (test code = 2207) 14 MG/DL 8-23 CREATININE (test code = 2214) 0.51 MG/DL 0.60-1.30 L eGFR (2020 CKD-EPI) (test co de = 04641) 99 ML/MIN/1.73 >60 CALC BUN/CREAT (test code [...] code = 2219) 21 U/L 5-40 LIPID [id number] 05:44:49* Test Item Value Reference Range Interpretation Comme nts CHOLESTEROL (test code = 2210) 155 MG/DL <200 TRIGLYCERIDES (test code = 2232) 103 MG/DL <150 HDL CHOLESTEROL (test code = 2220) 47 MG/DL >39 CALC LDL CHOL (test code = 2237) 88 MG/DL <100 NOTE: CALCULATED LDL IS BASED ON SANDRA-TELLO METHOD WHICHINCLUDES ADJUSTABLE TRIGLYCERIDE:VLDL CHOLESTEROL RATIO.THIS FACTOR VARIES BY MEASURED TRIGLYCERIDE AND NON-HDLCHOLESTEROL CONCENTRATIONS WITH INCREASED CALCULATED LDL SEENIN HIGHER TRIGLYCERIDE OR LOWER NON-HDL SPECIMENS. FOR MOREINFORMATION, SEE CLIENT ANNOUNCEMENT AT [email or web address] RISK RATIO LDL/HDL (test code = 2238) 1.87 RATIO <3.22 HEMOGLOBIN [id number] 03:44:18* Test Item Value Reference Range Interpretation Comme nts HEMOGLOBIN A1c (test code = 87295) 7.4 % 4.2-5.6 H [employer] GUIDELINES FOR HGB A1C: [...] TESTING PERFORMED AT [facility] [address] [place] [address] HOOP CUTTER: LILA SHANNON M.D. CLIA NUMBER [id number] [facility] [place]. [id number] COMPREHENSIVE METABOLIC [id number] 00:00:00* Test Item Value Reference Range Interpretation Comme nts GLUCOSE (test code = 2217) 157 MG/DL BUN (test code = 2208) 14 MG/DL CREATININE (test code = 2214) 0.51 MG/DL eGFR (2020 CKD-EPI) (test co de = 78760) 99 ML/MIN/1.73 CALC BUN/CREAT (test code = [...] = 2219) 21 U/L Toney Cowan AustinLIPID [id number] 00:00:00* Test Item Value Reference Range Interpretation Comme nts CHOLESTEROL (test code = 2210) 155 MG/DL TRIGLYCERIDES (test code = 2232) 103 MG/DL HDL CHOLESTEROL (test code = 2220) 47 MG/DL CALC LDL CHOL (test code = 2237) 88 MG/DL RISK RATIO LDL/HDL (test cod e = 2238) 1.87 RATIO Toney Cowan AustinHEMOGLOBIN [id number] 00:00:00* Test Item Value Reference Range Interpretation Comme nts HEMOGLOBIN A1c (test code = 31424) 7.4 % Toney Cowan AustinLIPID [id number] 00:00:00* Test Item Value Reference Range Interpretation Comme nts CHOLESTEROL (test code = 2210) 155 MG/DL TRIGLYCERIDES (test code = 2232) 103 MG/DL HDL CHOLESTEROL (test code = 2220) 47 MG/DL CALC LDL CHOL (test code = 2237) 88 MG/DL RISK RATIO LDL/HDL (test cod e = 2238) 1.87 RATIO Toney Cowan AustinHEMOGLOBIN [id number] 00:00:00* Test Item Value Reference Range Interpretation Comme nts HEMOGLOBIN A1c (test code = 65164) 7.4 % Toney Cowan AustinCOMPREHENSIVE METABOLIC [id number] 00:00:00* Test Item Value Reference Range Interpretation Comme nts GLUCOSE (test code = 2217) 157 MG/DL BUN (test code = 2208) 14 MG/DL CREATININE (test code = 2214) 0.51 MG/DL eGFR (2020 CKD-EPI) (test co de = 47322) 99 ML/MIN/1.73 CALC BUN/CREAT (test code = [...] code = 2219) 21 U/L Toney RennerLIPID [id number] 00:00:00* Test Item Value Reference Range Interpretation Comme nts CHOLESTEROL (test code = 2210) 155 MG/DL TRIGLYCERIDES (test code = 2232) 103 MG/DL HDL CHOLESTEROL (test code = 2220) 47 MG/DL CALC LDL CHOL (test code = 2237) 88 MG/DL RISK RATIO LDL/HDL (test cod e = 2238) 1.87 RATIO Toney RennerHEMOGLOBIN [id number] 00:00:00* Test Item Value Reference Range Interpretation Comme nts HEMOGLOBIN A1c (test code = 16669) 7.4 % Toney RennerCOMPREHENSIVE METABOLIC [id number] 00:00:00* Test Item Value Reference Range Interpretation Comme nts GLUCOSE (test code = 2217) 157 MG/DL BUN (test code = 2208) 14 MG/DL CREATININE (test code = 2214) 0.51 MG/DL eGFR (2020 CKD-EPI) (test co de = 39816) 99 ML/MIN/1.73 CALC BUN/CREAT (test code = [...] code = 2219) 21 U/L Toney RennerLIPID [id number] 00:00:00* Test Item Value Reference Range Interpretation Comme nts CHOLESTEROL (test code = 2210) 155 MG/DL TRIGLYCERIDES (test code = 2232) 103 MG/DL HDL CHOLESTEROL (test code = 2220) 47 MG/DL CALC LDL CHOL (test code = 2237) 88 MG/DL RISK RATIO LDL/HDL (test cod e = 2238) 1.87 RATIO Toney RennerHEMOGLOBIN [id number] 00:00:00* Test Item Value Reference Range Interpretation Comme nts HEMOGLOBIN A1c (test code = 10367) 7.4 % Toney RennerCOMPREHENSIVE METABOLIC [id number] 00:00:00* Test Item Value Reference Range Interpretation Comme nts GLUCOSE (test code = 2217) 157 MG/DL BUN (test code = 2208) 14 MG/DL CREATININE (test code = 2214) 0.51 MG/DL eGFR (2020 CKD-EPI) (test co de = 46754) 99 ML/MIN/1.73 CALC BUN/CREAT (test code = [...] code = 2219) 21 U/L Toney RennerLIPID [id number] 00:00:00* Test Item Value Reference Range Interpretation Comme nts CHOLESTEROL (test code = 2210) 155 MG/DL TRIGLYCERIDES (test code = 2232) 103 MG/DL HDL CHOLESTEROL (test code = 2220) 47 MG/DL CALC LDL CHOL (test code = 2237) 88 MG/DL RISK RATIO LDL/HDL (test cod e = 2238) 1.87 RATIO Toney RennerHEMOGLOBIN [id number] 00:00:00* Test Item Value Reference Range Interpretation Comme nts HEMOGLOBIN A1c (test code = 91538) 7.4 % Toney RennerCOMPREHENSIVE METABOLIC [id number] 00:00:00* Test Item Value Reference Range Interpretation Comme nts GLUCOSE (test code = 2217) 157 MG/DL BUN (test code = 2208) 14 MG/DL CREATININE (test code = 2214) 0.51 MG/DL eGFR (2020 CKD-EPI) (test co de = 04574) 99 ML/MIN/1.73 CALC BUN/CREAT (test code = [...] = 2219) 21 U/L Toney Cowan AustinLIPID [id number] 00:00:00* Test Item Value Reference Range Interpretation Comme nts CHOLESTEROL (test code = 2210) 155 MG/DL TRIGLYCERIDES (test code = 2232) 103 MG/DL HDL CHOLESTEROL (test code = 2220) 47 MG/DL CALC LDL CHOL (test code = 2237) 88 MG/DL RISK RATIO LDL/HDL (test cod e = 2238) 1.87 RATIO Toney RennerHEMOGLOBIN [id number] 00:00:00* Test Item Value Reference Range Interpretation Comme nts HEMOGLOBIN A1c (test code = 87690) 7.4 % Toney RennerCOMPREHENSIVE METABOLIC [id number] 00:00:00* Test Item Value Reference Range Interpretation Comme nts GLUCOSE (test code = 2217) 157 MG/DL BUN (test code = 2208) 14 MG/DL CREATININE (test code = 2214) 0.51 MG/DL eGFR (2020 CKD-EPI) (test co de = 56728) 99 ML/MIN/1.73 CALC BUN/CREAT (test code = [...] = 2219) 21 U/L Toney Cowan AustinLIPID [id number] 00:00:00* Test Item Value Reference Range Interpretation Comme nts CHOLESTEROL (test code = 2210) 155 MG/DL TRIGLYCERIDES (test code = 2232) 103 MG/DL HDL CHOLESTEROL (test code = 2220) 47 MG/DL CALC LDL CHOL (test code = 2237) 88 MG/DL RISK RATIO LDL/HDL (test cod e = 2238) 1.87 RATIO Toney Cowan AustinHEMOGLOBIN [id number] 00:00:00* Test Item Value Reference Range Interpretation Comme kp HEMOGLOBIN A1c (test code = 66197) 7.4 % Toney RennerCOMPREHENSIVE METABOLIC [id number] 00:00:00* Test Item Value Reference Range Interpretation Comme nts GLUCOSE (test code = 2217) 157 MG/DL BUN (test code = 2208) 14 MG/DL CREATININE (test code = 2214) 0.51 MG/DL eGFR (2020 CKD-EPI) (test co de = 26020) 99 ML/MIN/1.73 CALC BUN/CREAT (test code = [...] (test code = 2219) 21 U/L Toney RennerCOMPREHENSIVE METABOLIC [id number] 00:00:00* Test Item Value Reference Range Interpretation Comme nts GLUCOSE (test code = 2217) 157 MG/DL BUN (test code = 2208) 14 MG/DL CREATININE (test code = 2214) 0.51 MG/DL eGFR (2020 CKD-EPI) (test co de = 14258) 99 ML/MIN/1.73 CALC BUN/CREAT (test code = [...] code = 2219) 21 U/L Toney RennerLIPID [id number] 00:00:00* Test Item Value Reference Range Interpretation Comme nts CHOLESTEROL (test code = 2210) 155 MG/DL TRIGLYCERIDES (test code = 2232) 103 MG/DL HDL CHOLESTEROL (test code = 2220) 47 MG/DL CALC LDL CHOL (test code = 2237) 88 MG/DL RISK RATIO LDL/HDL (test cod e = 2238) 1.87 RATIO Toney RennerHEMOGLOBIN [id number] 00:00:00* Test Item Value Reference Range Interpretation Comme kp HEMOGLOBIN A1c (test code = 57983) 7.4 % Toney RennerHEPATIC FUNCTION [id number] 06:18:49* Test Item Value Reference Range Interpretation Comme nts PROTEIN, TOTAL (test code = 2229) 7.7 G/DL 6.1-8.3 ALBUMIN (test code = 2201) 4.6 G/DL 3.5-5.2 BILIRUBIN, TOTAL (test code = 2207) 0.5 MG/DL <=1.2 BILIRUBIN, DIRECT (test code = 2021) 0.2 MG/DL 0.0-0.3 ALKALINE PHOSPHATASE (test c ode = 2204) 78 U/L 40-142 AST (test code = 2218) 32 U/L 9-40 ALT (test code = 2219) 27 U/L 5-40 AFP, TUMOR [id number] 06:17:42* Test Item Value Reference Range Interpretation Comme nts AFP, TUMOR MARKER (test code = 30590) 3.04 NG/ML <=8.30 UNLESS OTHERWISE INDICATED, ALL TESTING PERFORMED AT [facility] [address] [place] [address] HOOP CUTTER: LILA SHANNON M.D. CLIA NUMBER [id number] [facility] [place] [place]. [id number] HEPATITIS B CORE [id number] 04:33:04* Test Item Value Reference Range Interpretation Comme nts HEPATITIS B CORE IgM (test c ode = 4644) NON-REACTIVE NON-REACTIVE HEPATITIS C [id number] 04:33:04* Test Item Value Reference Range Interpretation Comme nts HEPATITIS C ANTIBODY (test c ode = 4675) NON-REACTIVE NON-REACTIVE HEPATITIS B SURFACE [id number] 04:33:04* Test Item Value Reference Range Interpretation Comme nts HEPATITIS B SURFACE AB (test code = 2737) REACTIVE NON-REACTIVE A LIVER (HEPATIC) FUNCTION [id number] 00:00:00* Test Item Value Reference Range Interpretation [...] 27 U/L Toney Cowan AustinHEPATITIS B CORE [id number] 00:00:00* Test Item Value Reference Range Interpretation Comme nts HEPATITIS B CORE IgM (test c ode = 4644) NON-REACTIVE Toney F AustinHEPATITIS B CORE [id number] 00:00:00* Test Item Value Reference Range Interpretation Comme nts HEPATITIS B CORE IgM (test c ode = 4644) NON-REACTIVE Toney F AustinHEPATITIS C [id number] 00:00:00* Test Item Value Reference Range Interpretation Comme nts HEPATITIS C ANTIBODY (test c ode = 4675) NON-REACTIVE Toney F AustinHEPATITIS B SURFACE [id number] 00:00:00* Test Item Value Reference Range Interpretation Comme nts HEPATITIS B SURFACE AB (test code = 2737) REACTIVE Toney Cowan AustinAFP, TUMOR [id number] 00:00:00* Test Item Value Reference Range Interpretation Comme nts AFP, TUMOR MARKER (test code = 86001) 3.04 NG/ML Toney F AustinHEPATITIS C [id number] 00:00:00* Test Item Value Reference Range Interpretation Comme nts HEPATITIS C ANTIBODY (test c ode = 4675) NON-REACTIVE Toney Cowan AustinHEPATITIS B SURFACE [id number] 00:00:00* Test Item Value Reference Range Interpretation Comme nts HEPATITIS B SURFACE AB (test code = 2737) REACTIVE Toney Cowan AustinAFP, TUMOR [id number] 00:00:00* Test Item Value Reference Range Interpretation Comme nts AFP, TUMOR MARKER (test code = 01676) 3.04 NG/ML Toney Cowan AustinLIVER (HEPATIC) FUNCTION [id number] 00:00:00* Test Item Value Reference Range Interpretation [...] 27 U/L Toney Cowan AustinHEPATITIS B CORE [id number] 00:00:00* Test Item Value Reference Range Interpretation Comme nts HEPATITIS B CORE IgM (test c ode = 4644) NON-REACTIVE Toney RennerHEPATITIS C [id number] 00:00:00* Test Item Value Reference Range Interpretation Comme nts HEPATITIS C ANTIBODY (test c ode = 4675) NON-REACTIVE Toney Cowan AustinHEPATITIS B SURFACE [id number] 00:00:00* Test Item Value Reference Range Interpretation Comme nts HEPATITIS B SURFACE AB (test code = 2737) REACTIVE Toney Cowan AustinAFP, TUMOR [id number] 00:00:00* Test Item Value Reference Range Interpretation Comme nts AFP, TUMOR MARKER (test code = 17221) 3.04 NG/ML Toney Cowan AustinLIVER (HEPATIC) FUNCTION [id number] 00:00:00* Test Item Value Reference Range Interpretation [...] 2219) 27 U/L Toney RennerHEPATITIS B CORE [id number] 00:00:00* Test Item Value Reference Range Interpretation Comme nts HEPATITIS B CORE IgM (test c ode = 4644) NON-REACTIVE Toney Cowan AustinHEPATITIS C [id number] 00:00:00* Test Item Value Reference Range Interpretation Comme nts HEPATITIS C ANTIBODY (test c ode = 4675) NON-REACTIVE Toney Cowan AustinHEPATITIS B SURFACE [id number] 00:00:00* Test Item Value Reference Range Interpretation Comme kp HEPATITIS B SURFACE AB (test code = 2737) REACTIVE Toney RennerAFP, TUMOR [id number] 00:00:00* Test Item Value Reference Range Interpretation Comme nts AFP, TUMOR MARKER (test code = 10531) 3.04 NG/ML Toney RennerLIVER (HEPATIC) FUNCTION [id number] 00:00:00* Test Item Value Reference Range Interpretation [...] 27 U/L Toney Cowan AustinHEPATITIS B CORE [id number] 00:00:00* Test Item Value Reference Range Interpretation Comme nts HEPATITIS B CORE IgM (test c ode = 4644) NON-REACTIVE Toney Cowna AustinHEPATITIS C [id number] 00:00:00* Test Item Value Reference Range Interpretation Comme nts HEPATITIS C ANTIBODY (test c ode = 4675) NON-REACTIVE Toney Cowan AustinHEPATITIS B SURFACE [id number] 00:00:00* Test Item Value Reference Range Interpretation Comme nts HEPATITIS B SURFACE AB (test code = 2737) REACTIVE Toney Cowan AustinAFP, TUMOR [id number] 00:00:00* Test Item Value Reference Range Interpretation Comme nts AFP, TUMOR MARKER (test code = 74893) 3.04 NG/ML Toney Cowan AustinLIVER (HEPATIC) FUNCTION [id number] 00:00:00* Test Item Value Reference Range Interpretation [...] 2219) 27 U/L Toney RennerHEPATITIS B CORE [id number] 00:00:00* Test Item Value Reference Range Interpretation Comme nts HEPATITIS B CORE IgM (test c ode = 4644) NON-REACTIVE Toney RennerHEPATITIS C [id number] 00:00:00* Test Item Value Reference Range Interpretation Comme nts HEPATITIS C ANTIBODY (test c ode = 4675) NON-REACTIVE Toney RennerHEPATITIS B SURFACE [id number] 00:00:00* Test Item Value Reference Range Interpretation Comme nts HEPATITIS B SURFACE AB (test code = 2737) REACTIVE Toney Cowan AustinAFP, TUMOR [id number] 00:00:00* Test Item Value Reference Range Interpretation Comme nts AFP, TUMOR MARKER (test code = 37210) 3.04 NG/ML Toney Cowan AustinLIVER (HEPATIC) FUNCTION [id number] 00:00:00* Test Item Value Reference Range Interpretation [...] 2219) 27 U/L Toney RennerHEPATITIS B CORE [id number] 00:00:00* Test Item Value Reference Range Interpretation Comme nts HEPATITIS B CORE IgM (test c ode = 4644) NON-REACTIVE Toney RennerHEPATITIS C [id number] 00:00:00* Test Item Value Reference Range Interpretation Comme nts HEPATITIS C ANTIBODY (test c ode = 4675) NON-REACTIVE Toney RennerHEPATITIS B SURFACE [id number] 00:00:00* Test Item Value Reference Range Interpretation Comme nts HEPATITIS B SURFACE AB (test code = 2737) REACTIVE Toney Cowan AustinAFP, TUMOR [id number] 00:00:00* Test Item Value Reference Range Interpretation Comme kp AFP, TUMOR MARKER (test code = 66029) 3.04 NG/ML Toney RennerLIVER (HEPATIC) FUNCTION [id number] 00:00:00* Test Item Value Reference Range Interpretation Comme nts PROTEIN, TOTAL (test code = 2229) 7.7 G/DL ALBUMIN (test code = 2201) 4.6 G/DL BILIRUBIN, TOTAL (test code = 2207) 0.5 MG/DL BILIRUBIN, DIRECT (test code = 2) 0.2 MG/DL ALKALINE PHOSPHATASE (test c ode = 2204) 78 U/L AST (test code = 2218) 32 U/L ALT (test code = 2219) 27 U/L Toney MarcanoPATITIS B CORE [id number] 00:00:00* Test Item Value Reference Range Interpretation Comme nts HEPATITIS B CORE IgM (test c ode = 4644) NON-REACTIVE Toney Cowan AustinLIVER (HEPATIC) FUNCTION [id number] 00:00:00* Test Item Value Reference Range Interpretation [...] (test code = 2219) 27 U/L Toney MarcanoPATITIS C [id number] 00:00:00* Test Item Value Reference Range Interpretation Comme nts HEPATITIS C ANTIBODY (test c ode = 4675) NON-REACTIVE Toney RennerHEPATITIS B SURFACE [id number] 00:00:00* Test Item Value Reference Range Interpretation Comme nts HEPATITIS B SURFACE AB (test code = 2737) REACTIVE Toney RennerAFP, TUMOR [id number] 00:00:00* Test Item Value Reference Range Interpretation Comme nts AFP, TUMOR MARKER (test code = 86385) 3.04 NG/ML Toney Cowan CordovaPOCT GLUCOSE (AUTOMATED)2023-09-05 13:54:20* Test Item Value Reference Range Interpretation Comme nts POCT GLU (test code = 1013260127) 153 mg/dL 70-110 H Lab Interpretation (test cod e = 49912-1) Abnormal [facility] GLUCOSE (AUTOMATED)2023-09-05 03:11:35* Test Item Value Reference Range Interpretation Comme nts POCT GLU (test code = 7889458546) 149 mg/dL 70-110 H Lab Interpretation (test cod e = 68780-1) [facility] 22:35:44* Test Item Value Reference Range Interpretation Comme nts POCT GLU (test code = 7307994980) 137 mg/dL 70-110 H Lab Interpretation (test cod e = 44725-4) [facility]23-[facility]-04 18:37:00* Test Item Value Reference Range Interpretation Comme nts POCT GLU (test code = 6048151115) 226 mg/dL 70-110 H Lab Interpretation (test cod e = 14169-6) [facility] 13:38:01* Test Item Value Reference Range Interpretation Comme nts POCT GLU (test code = 5179546290) 130 mg/dL 70-110 H Lab Interpretation (test cod e = 71759-7) Abnormal [facility] GLUCOSE (AUTOMATED)2023-09-04 02:32:39* Test Item Value Reference Range Interpretation Comme nts POCT GLU (test code = 4416593229) 111 mg/dL 70-110 H Lab Interpretation (test cod e = 30205-8) Abnormal [facility] GLUCOSE (AUTOMATED)2023-09-03 22:49:16* Test Item Value Reference Range Interpretation Comme nts POCT GLU (test code = 4175330300) 117 mg/dL 70-110 H Lab Interpretation (test cod e = 05203-2) Abnormal [facility] GLUCOSE (AUTOMATED)2023-09-03 17:50:09* Test Item Value Reference Range Interpretation Comme nts POCT GLU (test code = 4635918462) 140 mg/dL 70-110 H Lab Interpretation (test cod e = 44043-7) Abnormal [facility] GLUCOSE (AUTOMATED)2023-09-03 13:55:34* Test Item Value Reference Range Interpretation Comme nts POCT GLU (test code = 1424569527) 155 mg/dL 70-110 H Lab Interpretation (test cod e = 62046-0) Abnormal [facility] GLUCOSE (AUTOMATED)2023-09-03 02:55:00* Test Item Value Reference Range Interpretation Comme nts POCT GLU (test code = 6403487342) 132 mg/dL 70-110 H Lab Interpretation (test cod e = 40240-2) Abnormal [facility] GLUCOSE (AUTOMATED)2023-09-02 22:07:26* Test Item Value Reference Range Interpretation Comme nts POCT GLU (test code = 8008491451) 155 mg/dL 70-110 H Lab Interpretation (test cod e = 38322-4) Abnormal [facility] GLUCOSE (AUTOMATED)2023-09-02 17:46:33* Test Item Value Reference Range Interpretation Comme nts POCT GLU (test code = 5817122011) 130 mg/dL 70-110 H Lab Interpretation (test cod e = 61864-2) Abnormal [facility] GLUCOSE (AUTOMATED)2023-09-02 15:02:11* Test Item Value Reference Range Interpretation Comme nts POCT GLU (test code = 8855758984) 154 mg/dL 70-110 H Lab Interpretation (test cod e = 29012-7) [facility] [id number] 01:40:13* Test Item Value Reference Range Interpretation Comme nts LACTIC ACID (test code = 9986401631) 1.86 mmol/L 0.50-2.20 Lab Interpretation (test cod e = 51062-2) [facility] [id number] 23:16:55* Test Item Value Reference Range Interpretation Comme nts TROPONIN I (test code = 1746373133) 0.000 ng/mL <=0.034 FIOR (test code = [...] of biotin. Lab Interpretation (test code = 12123-2) Normal [facility]. METABOLIC PANEL (06525)2023-09-01 23:05:35* Test Item Value Reference Range Interpretation Comme nts NA (test code = 3956299414) 139 mmol/L 135-145 K (test code = 3969964041) 3.5 mmol/L 3.5-5.0 CL (test code = 5030808596) 103 mmol/L 98-108 CO2 TOTAL (test code = 8520051592) 23 mmol/L 23-31 AGAP (test code = 1191008779) 13 2-16 BUN (test code = 9674441261) 11 mg/dL 7-23 GLUCOSE (test code = 8741393279) 134 mg/dL 70-110 H CREATININE (test code = 9110195647) 0.48 mg/dL 0.50-1.04 L TOTAL BILI (test code = 0020457769) 0.7 mg/dL 0.1-1.1 CALCIUM (test code = 2752259305) 9.3 mg/dL 8.6-10.6 T PROTEIN (test code = 4416998954) 8.8 g/dL 6.3-8.2 H ALBUMIN (test code = 6799489007) 4.4 g/dL 3.5-5.0 ALK PHOS (test code = 7363059973) 94 U/L 34-122 ALTv (test code = 1742-6) 30 U/L 5-35 AST(SGOT) (test code = 7343865455) 30 U/L 13-40 eGFR (test code = 95161-5) 100.8 mL/min/1.73m2 CKD-EPI eGFR (2020). Assuming creatinine has been stable day-to-day for at least three months, the eGFR indicates Category G1 (>= 90 mL/min/1.73 m2) Lab Interpretation (test code = 99742-1) Abnormal [facility] WITH [id number] 22:53:32* Test Item Value Reference Range Interpretation [...] 33.4 g/dL 31.6-35.1 RDW-SD (test code = 99820-6) 43.8 fL 39.0-49.9 RDW-CV (test code = 788-0) 13.2 % 12.0-15.5 PLT (test code = 777-3) 213 See_Comment [Automated message] The system which generated this result transmitted reference range: 166 - 358 10*3/?L. The reference range was not used to interpret this result as normal/abnormal. MPV (test code = 75196-8) 11.7 fL 9.5-12.9 NRBC/100 WBC (test code = 0244376839) 0.0 See_Comment [Automated message] The system which generated this result transmitted reference range: 0.0 - 10.0 /100 WBCs. The reference range was not used to interpret this result as normal/abnormal. NRBC x10^3 (test code = 8022714561) See_Comment [Automated message] The system which generated this result transmitted reference range: 10*3/?L. The reference range was not used to interpret this result as normal/abnormal. GRAN MAT (NEUT) % (test code = 770-8) 75.2 % IMM GRAN % (test code = 3724775176) 0.40 % LYMPH % (test code = 736-9) 16.2 % MONO % (test code = 5905-5) 7.6 % EOS % (test code = 713-8) 0.3 % BASO % (test code = 706-2) 0.3 % GRAN MAT x10^3(ANC) (test code = 4931718175) 11.57 10*3/uL 1.88-7.09 H IMM GRAN x10^3 (test code = 8284744273) 0.06 10*3/uL 0.00-0.06 LYMPH x10^3 (test code = 731-0) 2.49 10*3/uL 1.32-3.29 MONO x10^3 (test code = 742-7) 1.16 10*3/uL 0.33-0.92 H EOS x10^3 (test code = 711-2) 0.04 10*3/uL 0.03-0.39 BASO x10^3 (test code = 704-7) 0.04 10*3/uL 0.01-0.07 Lab Interpretation (test code = 43988-7) [facility]normal [facility] Center[facility] Whole [id number] 22:38:11* Test Item Value Reference Range Interpretation Comme nts LACTIC ACID (test code = 6830865365) 2.36 mmol/L 0.50-2.20 H Lab Interpretation (test cod e = 69829-6) Abnormal [facility] CenterHE[facility] [id number] 02:23:49* Test Item Value Reference Range Interpretation Comme nts HEMOGLOBIN A1c (test code = 18913) 8.5 % 4.2-5.6 H [employer] GUIDELINES FOR HGB A1C: [...] TESTING PERFORMED AT [facility] [address] [place] [address] HOOP CUTTER: LILA SHANNON M.D. [place] NUMBER [id number] [facility] [place]. [id number] HEMOGLOBIN [id number] 00:00:00* Test Item Value Reference Range Interpretation Comme nts HEMOGLOBIN A1c (test code = 11408) 8.5 % Toney F AustinHEMOGLOBIN [id number] 00:00:00* Test Item Value Reference Range Interpretation Comme nts HEMOGLOBIN A1c (test code = 79177) 8.5 % Toney F AustinHEMOGLOBIN [id number] 00:00:00* Test Item Value Reference Range Interpretation Comme nts HEMOGLOBIN A1c (test code = 19799) 8.5 % Toney F AustinHEMOGLOBIN [id number] 00:00:00* Test Item Value Reference Range Interpretation Comme nts HEMOGLOBIN A1c (test code = 89403) 8.5 % Toney F AustinHEMOGLOBIN [id number] 00:00:00* Test Item Value Reference Range Interpretation Comme nts HEMOGLOBIN A1c (test code = 33744) 8.5 % Toney F AustinHEMOGLOBIN [id number] 00:00:00* Test Item Value Reference Range Interpretation Comme nts HEMOGLOBIN A1c (test code = 33856) 8.5 % Toney F AustinHEMOGLOBIN [id number] 00:00:00* Test Item Value Reference Range Interpretation Comme nts HEMOGLOBIN A1c (test code = 80457) 8.5 % Toney RennerHEMOGLOBIN [id number] 00:00:00* Test Item Value Reference Range Interpretation Comme nts HEMOGLOBIN A1c (test code = 73258) 8.5 % Toney RennerTROPONIN [id number] 01:42:18* Test Item Value Reference Range Interpretation Comme nts TROPONIN I (test code = 6931000713) 0.003 ng/mL <=0.034 FIOR (test code = [...] of biotin. Lab Interpretation (test code = 31087-1) Normal [facility] Center[facility]MINAL [id number] 01:39:57* Test Item Value Reference Range Interpretation Comme nts NT-proBNP (test code = 46085-5) 92 pg/mL <=125 Lab Interpretation (test cod e = 22378-1) [facility] CenterMAGN[facility]IUM2023-08-07 01:25:59* Test Item Value Reference Range Interpretation Comme nts MAGNESIUM (test code = 6493130353) 1.9 mg/dL 1.7-2.4 Lab Interpretation (test cod e = 47340-7) [facility] CenterCOMP[facility] METABOLIC PANEL (44254)2023-06-02 01:25:39* Test Item Value Reference Range Interpretation Comme nts NA (test code = 1243930352) 142 mmol/L 135-145 K (test code = 8231716994) 3.8 mmol/L 3.5-5.0 CL (test code = 2155882733) 102 mmol/L 98-108 CO2 TOTAL (test code = 0138475810) 30 mmol/L 23-31 AGAP (test code = 0293043058) 10 2-16 BUN (test code = 0625488289) 24 mg/dL 7-23 H GLUCOSE (test code = 7572855865) 219 mg/dL 70-110 H CREATININE (test code = 4653285936) 0.76 mg/dL 0.50-1.04 TOTAL BILI (test code = 4518560476) 0.4 mg/dL 0.1-1.1 CALCIUM (test code = 9437928463) 9.9 mg/dL 8.6-10.6 T PROTEIN (test code = 4081780516) 8.3 g/dL 6.3-8.2 H ALBUMIN (test code = 8464597253) 4.3 g/dL 3.5-5.0 ALK PHOS (test code = 8201696410) 103 U/L 34-122 ALTv (test code = 1742-6) 36 U/L 5-35 H AST(SGOT) (test code = 3794840487) 35 U/L 13-40 eGFR (test code = 3974192097) 75.0 mL/min/1.73m2 FIOR (test code = FIOR) [...] imaging tests). Lab Interpretation (test code = 05753-4) Abnormal [facility] CenterLIPASE2023-[facility]-07 01:25:39* Test Item Value Reference Range Interpretation Comme nts LIPASE (test code = 9401519598) 105 U/L 0-220 Lab Interpretation (test cod e = 46919-5) Normal [facility] CenterCBC WITH [id number] 00:51:14* Test Item Value Reference Range Interpretation Comme nts WBC (test code = 6690-2) 7.72 See_Comment [Automated ComHeara [employer]] The system which generated this result transmitted reference range: 4.30 - 11.10 10*3/?L. The reference range was not used to interpret this result as normal/abnormal. RBC (test code = 789-8) 4.31 See_Comment [Automated ComHeara [employer]] The system which generated this result transmitted [...] 33.5 g/dL 31.6-35.1 RDW-SD (test code = 82585-0) 46.0 fL 39.0-49.9 RDW-CV (test code = 788-0) 13.7 % 12.0-15.5 PLT (test code = 777-3) 221 See_Comment [Automated ComHear[employer]] The system which generated this result transmitted reference range: 166 - 358 10*3/?L. The reference range was not used to interpret this result as normal/abnormal. MPV (test code = 69776-7) 11.2 fL 9.5-12.9 NRBC/100 WBC (test code = 3791561800) 0.0 See_Comment [Automated me ssage] The system which generated this result transmitted reference range: 0.0 - 10.0 /100 WBCs. The reference range was not used to interpret this result as normal/abnormal. NRBC x10^3 (test code = 4779670655) See_Comment [Automated messa ge] The system which generated this result transmitted reference range: 10*3/?L. The reference range was not used to interpret this result as normal/abnormal. GRAN MAT (NEUT) % (test code = 770-8) 42.7 % IMM GRAN % (test code = 1167394214) 0.10 % LYMPH % (test code = 736-9) 43.4 % MONO % (test code = 5905-5) 9.5 % EOS % (test code = 713-8) 3.5 % BASO % (test code = 706-2) 0.8 % GRAN MAT x10^3(ANC) (test code = 1699846291) 3.30 10*3/uL 1.88-7.09 IMM GRAN x10^3 (test code = 5353955990) 0.00-0.06 LYMPH x10^3 (test code = 731-0) 3.35 10*3/uL 1.32-3.29 H MONO x10^3 (test code = 742-7) 0.73 10*3/uL 0.33-0.92 EOS x10^3 (test code = 711-2) 0.27 10*3/uL 0.03-0.39 BASO x10^3 (test code = 704-7) 0.06 10*3/uL 0.01-0.07 Lab Interpretation (test code = 84929-0) Abnormal [facility] CenterHEMOGLOBIN [id number] 04:42:59* Test Item Value Reference Range Interpretation Comme nts HEMOGLOBIN A1c (test code = 10226) 9.0 % 4.2-5.6 H [employer] GUIDELINES FOR HGB A1C: [...] INDICATED, ALL TESTING PERFORMED AT [facility] [address] [place] [address] HOOP CUTTER: LILA SHANNON M.D. CLIA NUMBER [id number] [facility] [place]. [id number] CBC W/AUTO DIFF WITH [id number] 03:45:44* Test Item Value Reference Range Interpretation [...] 0.00-0.10 ABS NUCLEATED RBCS (test code = 65455) 0.00 K/UL 0.00-0.11 COMPREHENSIVE METABOLIC [id number] 03:39:49* Test Item Value Reference Range Interpretation Comme nts GLUCOSE (test code = 2216) 211 MG/DL 70-99 H BUN (test code = 2207) 14 MG/DL 8-23 CREATININE (test code = 2213) 0.53 MG/DL 0.60-1.30 L eGFR (2020 CKD-EPI) (test code = 17162) 99 ML/MIN/1.73 >60 CALC BUN/CREAT (test code = 5) 26 RATIO 6-28 SODIUM (test code = 2230) 143 MEQ/L 133-146 POTASSIUM (test code = 2227) 4.6 MEQ/L 3.5-5.4 CHLORIDE (test code = 5) 102 MEQ/L 95-107 CARBON DIOXIDE (test code = 2205) 29 MEQ/L 19-31 CALCIUM (test code = 2208) 10.2 MG/DL 8.5-10.5 PROTEIN, TOTAL (test code = 2228) 7.6 G/DL 6.1-8.3 ALBUMIN (test code = 2200) 4.3 G/DL 3.5-5.2 CALC GLOBULIN (test code = 2240) 3.3 G/DL 1.9-3.7 CALC A/G RATIO (test code = 223) 1.3 RATIO 1.0-2.6 BILIRUBIN, TOTAL (test code = 2206) 0.3 MG/DL See_Comment [Automated me ssage] The system which generated this result transmitted reference range: <=1.2. The reference range was not used to interpret this result as normal/abnormal. ALKALINE PHOSPHATASE (test code = 4) 97 U/L 40-142 AST (test code = 8) 35 U/L 9-40 ALT (test code = 9) 44 U/L 5-40 H LIPID [id number] 03:39:49* Test Item Value Reference Range Interpretation [...] SPECIMENS. FOR MOREINFORMATION, SEE CLIENT ANNOUNCEMENT AT [email or web address] RATIO LDL/HDL (test code = 2238) 2.69 RATIO <3.22 CBC W/AUTO [id number] 00:00:00* Test Item Value Reference Range Interpretation [...] ABS NUCLEATED RBCS (test cod e = 46165) 0.00 K/UL Toney RennerCBC W/AUTO [id number] 00:00:00* Test Item Value Reference Range Interpretation [...] ABS NUCLEATED RBCS (test cod e = 63134) 0.00 K/UL Toney RennerCOMPREHENSIVE METABOLIC [id number] 00:00:00* Test Item Value Reference Range Interpretation Comme nts GLUCOSE (test code = 2217) 211 MG/DL BUN (test code = 2208) 14 MG/DL CREATININE (test code = 2214) 0.53 MG/DL eGFR (2020 CKD-EPI) (test co de = 80000) 99 ML/MIN/1.73 CALC BUN/CREAT (test code = [...] code = 2219) 44 U/L Toney RennerLIPID [id number] 00:00:00* Test Item Value Reference Range Interpretation Comme nts CHOLESTEROL (test code = 2210) 192 MG/DL TRIGLYCERIDES (test code = 2232) 149 MG/DL HDL CHOLESTEROL (test code = 2220) 45 MG/DL CALC LDL CHOL (test code = 2237) 121 MG/DL RISK RATIO LDL/HDL (test cod e = 2238) 2.69 RATIO Toney RennerHEMOGLOBIN [id number] 00:00:00* Test Item Value Reference Range Interpretation Comme nts HEMOGLOBIN A1c (test code = 35312) 9.0 % Toney RennerCOMPREHENSIVE METABOLIC [id number] 00:00:00* Test Item Value Reference Range Interpretation Comme nts GLUCOSE (test code = 2217) 211 MG/DL BUN (test code = 2208) 14 MG/DL CREATININE (test code = 2214) 0.53 MG/DL eGFR (2020 CKD-EPI) (test co de = 71906) 99 ML/MIN/1.73 CALC BUN/CREAT (test code = [...] code = 2219) 44 U/L Toney RennerLIPID [id number] 00:00:00* Test Item Value Reference Range Interpretation Comme nts CHOLESTEROL (test code = 2210) 192 MG/DL TRIGLYCERIDES (test code = 2232) 149 MG/DL HDL CHOLESTEROL (test code = 2220) 45 MG/DL CALC LDL CHOL (test code = 2237) 121 MG/DL RISK RATIO LDL/HDL (test cod e = 2238) 2.69 RATIO Toney RennerHEMOGLOBIN [id number] 00:00:00* Test Item Value Reference Range Interpretation Comme nts HEMOGLOBIN A1c (test code = 11994) 9.0 % Toney RennerCBC W/AUTO [id number] 00:00:00* Test Item Value Reference Range Interpretation [...] ABS NUCLEATED RBCS (test cod e = 25789) 0.00 K/UL Toney RennerCOMPREHENSIVE METABOLIC [id number] 00:00:00* Test Item Value Reference Range Interpretation Comme nts GLUCOSE (test code = 2217) 211 MG/DL BUN (test code = 2208) 14 MG/DL CREATININE (test code = 2214) 0.53 MG/DL eGFR (2020 CKD-EPI) (test co de = 81104) 99 ML/MIN/1.73 CALC BUN/CREAT (test code = [...] code = 2219) 44 U/L Toney RennerLIPID [id number] 00:00:00* Test Item Value Reference Range Interpretation Comme nts CHOLESTEROL (test code = 2210) 192 MG/DL TRIGLYCERIDES (test code = 2232) 149 MG/DL HDL CHOLESTEROL (test code = 2220) 45 MG/DL CALC LDL CHOL (test code = 2237) 121 MG/DL RISK RATIO LDL/HDL (test cod e = 2238) 2.69 RATIO Toney RennerHEMOGLOBIN [id number] 00:00:00* Test Item Value Reference Range Interpretation Comme nts HEMOGLOBIN A1c (test code = 72151) 9.0 % Toney RennerCBC W/AUTO [id number] 00:00:00* Test Item Value Reference Range Interpretation [...] ABS NUCLEATED RBCS (test cod e = 11543) 0.00 K/UL Toney RennerCOMPREHENSIVE METABOLIC [id number] 00:00:00* Test Item Value Reference Range Interpretation Comme nts GLUCOSE (test code = 2217) 211 MG/DL BUN (test code = 2208) 14 MG/DL CREATININE (test code = 2214) 0.53 MG/DL eGFR (2020 CKD-EPI) (test co de = 46641) 99 ML/MIN/1.73 CALC BUN/CREAT (test code = [...] code = 2219) 44 U/L Toney RennerLIPID [id number] 00:00:00* Test Item Value Reference Range Interpretation Comme nts CHOLESTEROL (test code = 2210) 192 MG/DL TRIGLYCERIDES (test code = 2232) 149 MG/DL HDL CHOLESTEROL (test code = 2220) 45 MG/DL CALC LDL CHOL (test code = 2237) 121 MG/DL RISK RATIO LDL/HDL (test cod e = 2238) 2.69 RATIO Toney RennerHEMOGLOBIN [id number] 00:00:00* Test Item Value Reference Range Interpretation Comme nts HEMOGLOBIN A1c (test code = 55613) 9.0 % Toney RennerCBC W/AUTO [id number] 00:00:00* Test Item Value Reference Range Interpretation [...] ABS NUCLEATED RBCS (test cod e = 40752) 0.00 K/UL Toney RennerCOMPREHENSIVE METABOLIC [id number] 00:00:00* Test Item Value Reference Range Interpretation Comme nts GLUCOSE (test code = 2217) 211 MG/DL BUN (test code = 2208) 14 MG/DL CREATININE (test code = 2214) 0.53 MG/DL eGFR (2020 CKD-EPI) (test co de = 49433) 99 ML/MIN/1.73 CALC BUN/CREAT (test code = [...] code = 2219) 44 U/L Toney RennerLIPID [id number] 00:00:00* Test Item Value Reference Range Interpretation Comme nts CHOLESTEROL (test code = 2210) 192 MG/DL TRIGLYCERIDES (test code = 2232) 149 MG/DL HDL CHOLESTEROL (test code = 2220) 45 MG/DL CALC LDL CHOL (test code = 2237) 121 MG/DL RISK RATIO LDL/HDL (test cod e = 2238) 2.69 RATIO Toney RennerHEMOGLOBIN [id number] 00:00:00* Test Item Value Reference Range Interpretation Comme nts HEMOGLOBIN A1c (test code = 99780) 9.0 % Toney RennerCBC W/AUTO [id number] 00:00:00* Test Item Value Reference Range Interpretation [...] ABS NUCLEATED RBCS (test cod e = 38452) 0.00 K/UL Toney RennerCOMPREHENSIVE METABOLIC [id number] 00:00:00* Test Item Value Reference Range Interpretation Comme nts GLUCOSE (test code = 2217) 211 MG/DL BUN (test code = 2208) 14 MG/DL CREATININE (test code = 2214) 0.53 MG/DL eGFR (2020 CKD-EPI) (test co de = 48409) 99 ML/MIN/1.73 CALC BUN/CREAT (test code = [...] code = 2219) 44 U/L Toney RennerLIPID [id number] 00:00:00* Test Item Value Reference Range Interpretation Comme nts CHOLESTEROL (test code = 2210) 192 MG/DL TRIGLYCERIDES (test code = 2232) 149 MG/DL HDL CHOLESTEROL (test code = 2220) 45 MG/DL CALC LDL CHOL (test code = 2237) 121 MG/DL RISK RATIO LDL/HDL (test cod e = 2238) 2.69 RATIO Toney RennerHEMOGLOBIN [id number] 00:00:00* Test Item Value Reference Range Interpretation Comme nts HEMOGLOBIN A1c (test code = 55369) 9.0 % Toney RennerCBC W/AUTO [id number] 00:00:00* Test Item Value Reference Range Interpretation [...] ABS NUCLEATED RBCS (test cod e = 21377) 0.00 K/UL Toney RennerCOMPREHENSIVE METABOLIC [id number] 00:00:00* Test Item Value Reference Range Interpretation Comme nts GLUCOSE (test code = 2217) 211 MG/DL BUN (test code = 2208) 14 MG/DL CREATININE (test code = 2214) 0.53 MG/DL eGFR (2020 CKD-EPI) (test co de = 74342) 99 ML/MIN/1.73 CALC BUN/CREAT (test code = [...] code = 2219) 44 U/L Toney RennerLIPID [id number] 00:00:00* Test Item Value Reference Range Interpretation Comme nts CHOLESTEROL (test code = 2210) 192 MG/DL TRIGLYCERIDES (test code = 2232) 149 MG/DL HDL CHOLESTEROL (test code = 2220) 45 MG/DL CALC LDL CHOL (test code = 2237) 121 MG/DL RISK RATIO LDL/HDL (test cod e = 2238) 2.69 RATIO Toney RennerHEMOGLOBIN [id number] 00:00:00* Test Item Value Reference Range Interpretation Comme nts HEMOGLOBIN A1c (test code = 57000) 9.0 % Toney RennerCBC W/AUTO [id number] 00:00:00* Test Item Value Reference Range Interpretation [...] ABS NUCLEATED RBCS (test cod e = 18357) 0.00 K/UL Toney RennerCOMPREHENSIVE METABOLIC [id number] 00:00:00* Test Item Value Reference Range Interpretation Comme nts GLUCOSE (test code = 2217) 211 MG/DL BUN (test code = 2208) 14 MG/DL CREATININE (test code = 2214) 0.53 MG/DL eGFR (2020 CKD-EPI) (test co de = 44239) 99 ML/MIN/1.73 CALC BUN/CREAT (test code = [...] code = 2219) 44 U/L Toney RennerLIPID [id number] 00:00:00* Test Item Value Reference Range Interpretation Comme nts CHOLESTEROL (test code = 2210) 192 MG/DL TRIGLYCERIDES (test code = 2232) 149 MG/DL HDL CHOLESTEROL (test code = 2220) 45 MG/DL CALC LDL CHOL (test code = 2237) 121 MG/DL RISK RATIO LDL/HDL (test cod e = 2238) 2.69 RATIO Toney RennerHEMOGLOBIN [id number] 00:00:00* Test Item Value Reference Range Interpretation Comme nts HEMOGLOBIN A1c (test code = 19366) 9.0 % Toney RennerTROPONIN [id number] 04:38:13* Test Item Value Reference Range Interpretation Comme nts TROPONIN I (test code = 7583927587) 0.003 ng/mL <=0.034 FIOR (test code = [...] of biotin. Lab Interpretation (test code = 45058-3) [facility] [id number] 03:48:45* Test Item Value Reference Range Interpretation Comme nts NT-proBNP (test code = 1439179195) 111 pg/mL <=125 FIOR (test code = FIOR) Biotin has been reported to cause a negative bias, interpret results relative to patient's use of biotin. Lab Interpretation (test code = 97061-4) [facility] [id number] 01:33:33* Test Item Value Reference Range Interpretation Comme nts TROPONIN I (test code = 8280165561) 0.004 ng/mL <=0.034 FIOR (test code = [...] of biotin. Lab Interpretation (test code = 07834-4) [facility]) + [id number] 01:30:16* Test Item Value Reference Range Interpretation Comme nts CK (test code = 4906913263) 52 U/L 33-194 CK-MB (test code = 2310397353) 0.96 ng/mL <=3.50 CKMB INDEX (test code = 5594341662) 1.8 % 0.0-4.0 FIOR (test code = FIOR) Biotin has been reported to cause a negative bias, interpret results relative to patient's use of biotin. Lab Interpretation (test code = 41446-4) Normal [facility]. METABOLIC PANEL (75241)2023-03-12 01:21:56* Test Item Value Reference Range Interpretation Comme nts NA (test code = 9256880505) 140 mmol/L 135-145 K (test code = 2653536788) 4.3 mmol/L 3.5-5.0 CL (test code = 0835902855) 104 mmol/L 98-108 CO2 TOTAL (test code = 6565545867) 26 mmol/L 23-31 AGAP (test code = 4507923602) 10 2-16 BUN (test code = 9184014806) 19 mg/dL 7-23 GLUCOSE (test code = 8273852932) 107 mg/dL 70-110 CREATININE (test code = 7709924061) 0.48 mg/dL 0.50-1.04 L TOTAL BILI (test code = 9053143817) 0.7 mg/dL 0.1-1.1 CALCIUM (test code = 6179249144) 9.6 mg/dL 8.6-10.6 T PROTEIN (test code = 2025687681) 7.7 g/dL 6.3-8.2 ALBUMIN (test code = 7044003490) 4.2 g/dL 3.5-5.0 ALK PHOS (test code = 2766520538) 75 U/L 34-122 ALTv (test code = 1742-6) 49 U/L 5-35 H AST(SGOT) (test code = 7665760059) 44 U/L 13-40 H eGFR (test code = 2907028046) 127.5 mL/min/1.73m2 FIOR (test code = FIOR) [...] imaging tests). Lab Interpretation (test code = 28019-0) [facility] 01:21:36* Test Item Value Reference Range Interpretation Comme nts LIPASE (test code = 5333825193) 114 U/L 0-220 Lab Interpretation (test cod e = 35347-3) Normal [facility] WITH [id number] 01:11:52* Test Item Value Reference Range Interpretation Comme nts WBC (test code = 6690-2) 8.90 See_Comment [Automated [employer]] The system which generated this result transmitted reference range: 4.30 - 11.10 10*3/?L. The reference range was not used to interpret this result as normal/abnormal. RBC (test code = 789-8) 4.55 See_Comment [Automated [employer]] The system which generated this result transmitted [...] 32.1 g/dL 31.6-35.1 RDW-SD (test code = 17899-2) 43.5 fL 39.0-49.9 RDW-CV (test code = 788-0) 13.3 % 12.0-15.5 PLT (test code = 777-3) 212 See_Comment [Automated messa ge] The system which generated this result transmitted reference range: 166 - 358 10*3/?L. The reference range was not used to interpret this result as normal/abnormal. MPV (test code = 30700-4) 11.4 fL 9.5-12.9 NRBC/100 WBC (test code = 2348981006) 0.0 See_Comment [Automated [employer]age] The system which generated this result transmitted reference range: 0.0 - 10.0 /100 WBCs. The reference range was not used to interpret this result as normal/abnormal. NRBC x10^3 (test code = 1429382401) See_Comment [Automated messa ge] The system which generated this result transmitted reference range: 10*3/?L. The reference range was not used to interpret this result as normal/abnormal. GRAN MAT (NEUT) % (test code = 770-8) 45.6 % IMM GRAN % (test code = 4954953515) 0.40 % LYMPH % (test code = 736-9) 41.9 % MONO % (test code = 5905-5) 8.1 % EOS % (test code = 713-8) 3.6 % BASO % (test code = 706-2) 0.4 % GRAN MAT x10^3(ANC) (test code = 0019536458) 4.05 10*3/uL 1.88-7.09 IMM GRAN x10^3 (test code = 2128898669) 0.04 10*3/uL 0.00-0.06 LYMPH x10^3 (test code = 731-0) 3.73 10*3/uL 1.32-3.29 H MONO x10^3 (test code = 742-7) 0.72 10*3/uL 0.33-0.92 EOS x10^3 (test code = 711-2) 0.32 10*3/uL 0.03-0.39 BASO x10^3 (test code = 704-7) 0.04 10*3/uL 0.01-0.07 Lab Interpretation (test code = 92897-8) [facility]normal [facility]HE[facility] [id number] 21:58:23* Test Item Value Reference Range Interpretation Comme nts HEMOGLOBIN A1c (test code = 67568) 10.0 % 4.2-5.6 H [employer] GUIDELINES FOR HGB A1C: [...] CONSIDER ALTERNATE TESTING OR LABORATORY CONSULTATION. HEMOGLOBIN [id number] 00:00:00* Test Item Value Reference Range Interpretation Comme nts HEMOGLOBIN A1c (test code = 36217) 10.0 % Toney Camryn AustinHEMOGLOBIN [id number] 00:00:00* Test Item Value Reference Range Interpretation Comme nts HEMOGLOBIN A1c (test code = 98347) 10.0 % Toney F AustinHEMOGLOBIN [id number] 00:00:00* Test Item Value Reference Range Interpretation Comme nts HEMOGLOBIN A1c (test code = 78122) 10.0 % Toney F AustinHEMOGLOBIN [id number] 00:00:00* Test Item Value Reference Range Interpretation Comme nts HEMOGLOBIN A1c (test code = 78021) 10.0 % Toney F AustinHEMOGLOBIN [id number] 00:00:00* Test Item Value Reference Range Interpretation Comme nts HEMOGLOBIN A1c (test code = 68235) 10.0 % Toney F AustinHEMOGLOBIN [id number] 00:00:00* Test Item Value Reference Range Interpretation Comme nts HEMOGLOBIN A1c (test code = 89531) 10.0 % Toney F AustinHEMOGLOBIN [id number] 00:00:00* Test Item Value Reference Range Interpretation Comme nts HEMOGLOBIN A1c (test code = 55783) 10.0 % Toney F AustinHEMOGLOBIN [id number] 00:00:00* Test Item Value Reference Range Interpretation Comme nts HEMOGLOBIN A1c (test code = 86342) 10.0 % Toney RennerLIPID [id number] 06:17:57* Test Item Value Reference Range Interpretation [...] SPECIMENS. FOR MOREINFORMATION, SEE CLIENT ANNOUNCEMENT AT [email or web address] RISK RATIO LDL/HDL (test code = 2238) 2.94 RATIO <3.22 COMPREHENSIVE METABOLIC [id number] 06:17:57* Test Item Value Reference Range Interpretation Comme nts GLUCOSE (test code = 2217) 195 MG/DL 70-99 H BUN (test code = 2208) 12 MG/DL 8-23 CREATININE (test code = 2214) 0.52 MG/DL 0.60-1.30 L eGFR (2020 CKD-EPI) (test code = 44675) 99 ML/MIN/1.73 >60 CALC BUN/CREAT (test code [...] 7.1 G/DL 6.1-8.3 ALBUMIN (test code = 220) 4.2 G/DL 3.5-5.2 CALC GLOBULIN (test code [...] (test code = 2219) 29 U/L 5-40 [facility] has impo rtant pathology staff changes effective 12/25/2022. New pathology staff will provide uninterrupted, excellent patient care and clinical consultation. See URL: [email or web address]. UNLESS OTHERWISE INDICATED, ALL TESTING PERFORMED AT [facility] [address] [place] [address] HOOP CUTTER: LILA SHANNON M.D. CLIA NUMBER [id number] [facility] [place]. [id number] LIPID [id number] 00:00:00* Test Item Value Reference Range Interpretation Comme nts CHOLESTEROL (test code = 2210) 219 MG/DL TRIGLYCERIDES (test code = 2232) 137 MG/DL HDL CHOLESTEROL (test code = 2220) 49 MG/DL CALC LDL CHOL (test code = 2237) 144 MG/DL RISK RATIO LDL/HDL (test cod e = 2238) 2.94 RATIO Toney RennerCOMPREHENSIVE METABOLIC [id number] 00:00:00* Test Item Value Reference Range Interpretation Comme nts GLUCOSE (test code = 2217) 195 MG/DL BUN (test code = 2208) 12 MG/DL CREATININE (test code = 2214) 0.52 MG/DL eGFR (2020 CKD-EPI) (test co de = 26070) 99 ML/MIN/1.73 CALC BUN/CREAT (test code = [...] = 2219) 29 U/L Toney Cowan AustinLIPID [id number] 00:00:00* Test Item Value Reference Range Interpretation Comme nts CHOLESTEROL (test code = 2210) 219 MG/DL TRIGLYCERIDES (test code = 2232) 137 MG/DL HDL CHOLESTEROL (test code = 2220) 49 MG/DL CALC LDL CHOL (test code = 2237) 144 MG/DL RISK RATIO LDL/HDL (test cod e = 2238) 2.94 RATIO Toney RennerCOMPREHENSIVE METABOLIC [id number] 00:00:00* Test Item Value Reference Range Interpretation Comme nts GLUCOSE (test code = 2217) 195 MG/DL BUN (test code = 2208) 12 MG/DL CREATININE (test code = 2214) 0.52 MG/DL eGFR (2020 CKD-EPI) (test co de = 02526) 99 ML/MIN/1.73 CALC BUN/CREAT (test code = [...] = 2219) 29 U/L Toney Cowan AustinLIPID [id number] 00:00:00* Test Item Value Reference Range Interpretation Comme nts CHOLESTEROL (test code = 2210) 219 MG/DL TRIGLYCERIDES (test code = 2232) 137 MG/DL HDL CHOLESTEROL (test code = 2220) 49 MG/DL CALC LDL CHOL (test code = 2237) 144 MG/DL RISK RATIO LDL/HDL (test cod e = 2238) 2.94 RATIO Tonye RennerCOMPREHENSIVE METABOLIC [id number] 00:00:00* Test Item Value Reference Range Interpretation Comme nts GLUCOSE (test code = 2217) 195 MG/DL BUN (test code = 2208) 12 MG/DL CREATININE (test code = 2214) 0.52 MG/DL eGFR (2020 CKD-EPI) (test co de = 65720) 99 ML/MIN/1.73 CALC BUN/CREAT (test code = [...] = 2219) 29 U/L Toney Cowan AustinLIPID [id number] 00:00:00* Test Item Value Reference Range Interpretation Comme nts CHOLESTEROL (test code = 2210) 219 MG/DL TRIGLYCERIDES (test code = 2232) 137 MG/DL HDL CHOLESTEROL (test code = 2220) 49 MG/DL CALC LDL CHOL (test code = 2237) 144 MG/DL RISK RATIO LDL/HDL (test cod e = 2238) 2.94 RATIO Toney RennerCOMPREHENSIVE METABOLIC [id number] 00:00:00* Test Item Value Reference Range Interpretation Comme nts GLUCOSE (test code = 2217) 195 MG/DL BUN (test code = 2208) 12 MG/DL CREATININE (test code = 2214) 0.52 MG/DL eGFR (2020 CKD-EPI) (test co de = 25533) 99 ML/MIN/1.73 CALC BUN/CREAT (test code = [...] (test code = 2219) 29 U/L Toney Camryn ZurdoLIPID [id number] 00:00:00* Test Item Value Reference Range Interpretation Comme nts CHOLESTEROL (test code = 2210) 219 MG/DL TRIGLYCERIDES (test code = 2232) 137 MG/DL HDL CHOLESTEROL (test code = 2220) 49 MG/DL CALC LDL CHOL (test code = 2237) 144 MG/DL RISK RATIO LDL/HDL (test cod e = 2238) 2.94 RATIO Toney Camryn ZurdoCOMPREHENSIVE METABOLIC [id number] 00:00:00* Test Item Value Reference Range Interpretation Comme nts GLUCOSE (test code = 2217) 195 MG/DL BUN (test code = 2208) 12 MG/DL CREATININE (test code = 2214) 0.52 MG/DL eGFR (2020 CKD-EPI) (test co de = 22785) 99 ML/MIN/1.73 CALC BUN/CREAT (test code = [...] code = 2219) 29 U/L Toney RennerLIPID [id number] 00:00:00* Test Item Value Reference Range Interpretation Comme nts CHOLESTEROL (test code = 2210) 219 MG/DL TRIGLYCERIDES (test code = 2232) 137 MG/DL HDL CHOLESTEROL (test code = 2220) 49 MG/DL CALC LDL CHOL (test code = 2237) 144 MG/DL RISK RATIO LDL/HDL (test cod e = 2238) 2.94 RATIO Toney RennerCOMPREHENSIVE METABOLIC [id number] 00:00:00* Test Item Value Reference Range Interpretation Comme nts GLUCOSE (test code = 2217) 195 MG/DL BUN (test code = 2208) 12 MG/DL CREATININE (test code = 2214) 0.52 MG/DL eGFR (2020 CKD-EPI) (test co de = 25134) 99 ML/MIN/1.73 CALC BUN/CREAT (test code = [...] code = 2219) 29 U/L Toney RennerLIPID [id number] 00:00:00* Test Item Value Reference Range Interpretation Comme nts CHOLESTEROL (test code = 2210) 219 MG/DL TRIGLYCERIDES (test code = 2232) 137 MG/DL HDL CHOLESTEROL (test code = 2220) 49 MG/DL CALC LDL CHOL (test code = 2237) 144 MG/DL RISK RATIO LDL/HDL (test cod e = 2238) 2.94 RATIO Toney RennerCOMPREHENSIVE METABOLIC [id number] 00:00:00* Test Item Value Reference Range Interpretation Comme nts GLUCOSE (test code = 2217) 195 MG/DL BUN (test code = 2208) 12 MG/DL CREATININE (test code = 2214) 0.52 MG/DL eGFR (2020 CKD-EPI) (test co de = 41708) 99 ML/MIN/1.73 CALC BUN/CREAT (test code = [...] = 2219) 29 U/L Toney Cowan AustinLIPID [id number] 00:00:00* Test Item Value Reference Range Interpretation Comme nts CHOLESTEROL (test code = 2210) 219 MG/DL TRIGLYCERIDES (test code = 2232) 137 MG/DL HDL CHOLESTEROL (test code = 2220) 49 MG/DL CALC LDL CHOL (test code = 2237) 144 MG/DL RISK RATIO LDL/HDL (test cod e = 2238) 2.94 RATIO Tonye F AustinCOMPREHENSIVE METABOLIC [id number] 00:00:00* Test Item Value Reference Range Interpretation Comme nts GLUCOSE (test code = 2217) 195 MG/DL BUN (test code = 2208) 12 MG/DL CREATININE (test code = 2214) 0.52 MG/DL eGFR (2020 CKD-EPI) (test co de = 77490) 99 ML/MIN/1.73 CALC BUN/CREAT (test code = [...] code = 2219) 29 U/L [facility] (NA, K, CL, CO2, GLUCOSE, BUN, CREATININE, CA)2022-11-21 13:11:20* Test Item Value Reference Range Interpretation Comme nts NA (test code = 7755382990) 142 mmol/L 135-145 K (test code = 2604667467) 3.7 mmol/L 3.5-5.0 CL (test code = 3455163919) 106 mmol/L 98-108 CO2 TOTAL (test code = 1714646128) 27 mmol/L 23-31 AGAP (test code = 1850900294) 2-16 BUN (test code = 0799864109) 14 mg/dL 7-23 GLUCOSE (test code = 7739363208) 209 mg/dL 70-110 H CREATININE (test code = 2320260806) 0.49 mg/dL 0.50-1.04 L CALCIUM (test code = 0294908754) 8.9 mg/dL 8.6-10.6 eGFR (test code = 8810737569) mL/min/1.73m2 FIOR (test code = FIOR) Association [...] imaging tests). Lab Interpretation (test code = 83755-0) Abnormal [facility] METABOLIC PANEL (NA, K, CL, CO2, GLUCOSE, BUN, CREATININE, CA)2022-11-21 13:11:20* Test Item Value Reference Range Interpretation Comme nts NA (test code = 5495409247) 142 mmol/L 135-145 K (test code = 6348183638) 3.7 mmol/L 3.5-5.0 CL (test code = 9344798478) 106 mmol/L 98-108 CO2 TOTAL (test code = 7964083850) 27 mmol/L 23-31 AGAP (test code = 3715325649) 2-16 BUN (test code = 6830082259) 14 mg/dL 7-23 GLUCOSE (test code = 7958179622) 209 mg/dL 70-110 H CREATININE (test code = 6832222031) 0.49 mg/dL 0.50-1.04 L CALCIUM (test code = 0214055403) 8.9 mg/dL 8.6-10.6 eGFR (test code = 4159885769) mL/min/1.73m2 FIOR (test code = FIOR) Association [...] imaging tests). Lab Interpretation (test code = 03072-5) [facility]normal [facility] CenterProthrombin Time / [id number] 13:03:21* Test Item Value Reference Range Interpretation Comme kp GUARDADO PATIENT (test code = 5964-2) See_Comment [Automated [employer]] The system which generated this result transmitted reference range: 10.1 - 12.6 Seconds. The reference range was not used to interpret this result as normal/abnormal. INR (test code = 6301-6) Normal INR <1.1; Warfarin Therapeutic range 2.0 to 3.0 or 2.5 to 3.5, depending upon the indications. Lab Interpretation (test code = 43450-6) Normal [facility] CenterPro[facility]bin [facility] / [id number] 13:03:21* Test Item Value Reference Range Interpretation Comme nts PROTIME PATIENT (test code = 5964-2) See_Comment [Automated [employer]] The system which generated this result transmitted reference range: 10.1 - 12.6 Seconds. The reference range was not used to interpret this result as normal/abnormal. INR (test code = 6301-6) Normal INR <1.1; Warfarin Therapeutic range 2.0 to 3.0 or 2.5 to 3.5, depending upon the indications. Lab Interpretation (test code = 66479-1) Normal [facility] CenterCBC WITH [id number] 13:00:20* Test Item Value Reference Range Interpretation Comme nts WBC (test code = 6690-2) See_Comment [Automated [employer]] The system which generated this result transmitted reference range: 4.30 - 11.10 10*3/?L. The reference range was not used to interpret this result as normal/abnormal. RBC (test code = 789-8) See_Comment [Automated [employer]] The system which generated this result transmitted [...] 32.1 g/dL 31.6-35.1 RDW-SD (test code = 53239-0) 45.9 fL 39.0-49.9 RDW-CV (test code = 788-0) 13.8 % 12.0-15.5 PLT (test code = 777-3) See_Comment [Automated messa ge] The system which generated this result transmitted reference range: 166 - 358 10*3/?L. The reference range was not used to interpret this result as normal/abnormal. MPV (test code = 23161-7) 11.3 fL 9.5-12.9 NRBC/100 WBC (test code = [id number]) See_Comment [Automated me ssage] The system which generated this result transmitted reference range: 0.0 - 10.0 /100 WBCs. The reference range was not used to interpret this result as normal/abnormal. NRBC x10^3 (test code = [id number]) See_Comment [Automated me ssage] The system which generated this result transmitted reference range: 10*3/?L. The reference range was not used to interpret this result as normal/abnormal. GRAN MAT (NEUT) % (test code = 770-8) 49.8 % IMM GRAN % (test code = [id number]) 0.50 % LYMPH % (test code = 736-9) 33.3 % MONO % (test code = 5905-5) 10.5 % EOS % (test code = 713-8) 5.0 % BASO % (test code = 706-2) 0.9 % GRAN MAT x10^3(ANC) (test code = [id number]) 3.27 10*3/uL 1.88-7.09 IMM GRAN x10^3 (test code = 8250407587) 0.03 10*3/uL 0.00-0.06 LYMPH x10^3 (test code = 731-0) 2.19 10*3/uL 1.32-3.29 MONO x10^3 (test code = 742-7) 0.69 10*3/uL 0.33-0.92 EOS x10^3 (test code = 711-2) 0.33 10*3/uL 0.03-0.39 BASO x10^3 (test code = 704-7) 0.06 10*3/uL 0.01-0.07 [facility] WITH [id number] 13:00:20* Test Item Value Reference Range Interpretation Comme nts WBC (test code = 6690-2) See_Comment [Automated [employer] ge] The system which generated this result transmitted reference range: 4.30 - 11.10 10*3/?L. The reference range was not used to interpret this result as normal/abnormal. RBC (test code = 789-8) See_Comment [Automated [employer] ge] The system which generated this result [...] 32.1 g/dL 31.6-35.1 RDW-SD (test code = 10680-1) 45.9 fL 39.0-49.9 RDW-CV (test code = 788-0) 13.8 % 12.0-15.5 PLT (test code = 777-3) See_Comment [Automated [employer]] The system which generated this result transmitted reference range: 166 - 358 10*3/?L. The reference range was not used to interpret this result as normal/abnormal. MPV (test code = 43086-0) 11.3 fL 9.5-12.9 NRBC/100 WBC (test code = 9281148638) See_Comment [Automated [employer] ssage] The system which generated this result transmitted reference range: 0.0 - 10.0 /100 WBCs. The reference range was not used to interpret this result as normal/abnormal. NRBC x10^3 (test code = 9725746039) See_Comment [Automated me ssage] The system which generated this result transmitted reference range: 10*3/?L. The reference range was not used to interpret this result as normal/abnormal. GRAN MAT (NEUT) % (test code = 770-8) 49.8 % IMM GRAN % (test code = 6683201389) 0.50 % LYMPH % (test code = 736-9) 33.3 % MONO % (test code = 5905-5) 10.5 % EOS % (test code = 713-8) 5.0 % BASO % (test code = 706-2) 0.9 % GRAN MAT x10^3(ANC) (test code = 0923142306) 3.27 10*3/uL 1.88-7.09 IMM GRAN x10^3 (test code = 5479843926) 0.03 10*3/uL 0.00-0.06 LYMPH x10^3 (test code = 731-0) 2.19 10*3/uL 1.32-3.29 MONO x10^3 (test code = 742-7) 0.69 10*3/uL 0.33-0.92 EOS x10^3 (test code = 711-2) 0.33 10*3/uL 0.03-0.39 BASO x10^3 (test code = 704-7) 0.06 10*3/uL 0.01-0.07 [facility] [id number] 06:36:16* Test Item Value Reference Range Interpretation Comme nts HEMOGLOBIN A1c (test code = 06491) 9.6 % 4.2-5.6 H [employer] GUIDELINES FOR HGB A1C: [...] OR LABORATORY CONSULTATION. CBC W/AUTO DIFF WITH [id number] 06:04:53* Test Item Value Reference Range Interpretation [...] = 1065) 0.0 /100 WBC'S See_Comment [Automated [employer] ge] The system which generated this result [...] 0.00-0.10 ABS NUCLEATED RBCS (test code = 71520) 0.00 K/UL 0.00-0.11 [id number] 04:35:36* Test Item Value Reference Range Interpretation Comme nts RPR RESULT (test code = 3501) NON-REACTIVE NON-REACTIVE RPR TITER (test code = 3500) NOT INDIC. TITER NOT INDIC. VITAMIN [id number] 03:46:59* Test Item Value Reference Range Interpretation Comme nts VITAMIN B-12 (test code = 2840) 510 PG/ML 200-950 UNLESS OTHERWISE INDICATED, ALL TESTING PERFORMED [facility] [address] [place] [address] HOOP CUTTER: JENNIFER BECKMAN M.D. [place] NUMBER [id number] [facility] [place]. [id number] CBC W/AUTO [id number] 00:00:00* Test Item Value Reference Range Interpretation [...] ABS NUCLEATED RBCS (test cod e = 01908) 0.00 K/UL Toney RennerHEMOGLOBIN [id number] 00:00:00* Test Item Value Reference Range Interpretation Comme nts HEMOGLOBIN A1c (test code = 57190) 9.6 % Toney Cowan [id number] 00:00:00* Test Item Value Reference Range Interpretation Comme nts RPR RESULT (test code = 3501) NON-REACTIVE RPR TITER (test code = 3500) NOT INDIC. TITER Toney Cowan AustinVITAMIN [id number] 00:00:00* Test Item Value Reference Range Interpretation Comme nts VITAMIN B-12 (test code = 2840) 510 PG/ML Toney RennerHEMOGLOBIN [id number] 00:00:00* Test Item Value Reference Range Interpretation Comme nts HEMOGLOBIN A1c (test code = 07040) 9.6 % Toney [id number] 00:00:00* Test Item Value Reference Range Interpretation Comme nts RPR RESULT (test code = 3501) NON-REACTIVE RPR TITER (test code = 3500) NOT INDIC. TITER Toney RennerVITAMIN [id number] 00:00:00* Test Item Value Reference Range Interpretation Comme kp VITAMIN B-12 (test code = 2840) 510 PG/ML Toney RennerCBC W/AUTO [id number] 00:00:00* Test Item Value Reference Range Interpretation [...] ABS NUCLEATED RBCS (test cod e = 55048) 0.00 K/UL Toney RennerHEMOGLOBIN [id number] 00:00:00* Test Item Value Reference Range Interpretation Comme nts HEMOGLOBIN A1c (test code = 57964) 9.6 % Toney [id number] 00:00:00* Test Item Value Reference Range Interpretation Comme nts RPR RESULT (test code = 3501) NON-REACTIVE RPR TITER (test code = 3500) NOT INDIC. TITER Toney RennerVITAMIN [id number] 00:00:00* Test Item Value Reference Range Interpretation Comme nts VITAMIN B-12 (test code = 2840) 510 PG/ML Toney RennerCBC W/AUTO [id number] 00:00:00* Test Item Value Reference Range Interpretation [...] ABS NUCLEATED RBCS (test cod e = 67199) 0.00 K/UL Toney RennerHEMOGLOBIN [id number] 00:00:00* Test Item Value Reference Range Interpretation Comme nts HEMOGLOBIN A1c (test code = 45728) 9.6 % Toney [id number] 00:00:00* Test Item Value Reference Range Interpretation Comme nts RPR RESULT (test code = 3501) NON-REACTIVE RPR TITER (test code = 3500) NOT INDIC. TITER Toney RennerVITAMIN [id number] 00:00:00* Test Item Value Reference Range Interpretation Comme nts VITAMIN B-12 (test code = 2840) 510 PG/ML Toney RennerCBC W/AUTO [id number] 00:00:00* Test Item Value Reference Range Interpretation [...] ABS NUCLEATED RBCS (test cod e = 54807) 0.00 K/UL Toney F AustinHEMOGLOBIN [id number] 00:00:00* Test Item Value Reference Range Interpretation Comme nts HEMOGLOBIN A1c (test code = 08037) 9.6 % Toney [id number] 00:00:00* Test Item Value Reference Range Interpretation Comme nts RPR RESULT (test code = 3501) NON-REACTIVE RPR TITER (test code = 3500) NOT INDIC. TITER Toney RennerVITAMIN [id number] 00:00:00* Test Item Value Reference Range Interpretation Comme nts VITAMIN B-12 (test code = 2840) 510 PG/ML Toney RennerCBC W/AUTO [id number] 00:00:00* Test Item Value Reference Range Interpretation [...] ABS NUCLEATED RBCS (test cod e = 82038) 0.00 K/UL Toney RennerHEMOGLOBIN [id number] 00:00:00* Test Item Value Reference Range Interpretation Comme nts HEMOGLOBIN A1c (test code = 07763) 9.6 % Toney [id number] 00:00:00* Test Item Value Reference Range Interpretation Comme nts RPR RESULT (test code = 3501) NON-REACTIVE RPR TITER (test code = 3500) NOT INDIC. TITER Toney RennerVITAMIN [id number] 00:00:00* Test Item Value Reference Range Interpretation Comme nts VITAMIN B-12 (test code = 2840) 510 PG/ML Toney RennerCBC W/AUTO [id number] 00:00:00* Test Item Value Reference Range Interpretation [...] ABS NUCLEATED RBCS (test cod e = 80534) 0.00 K/UL Toney RennerHEMOGLOBIN [id number] 00:00:00* Test Item Value Reference Range Interpretation Comme nts HEMOGLOBIN A1c (test code = 20960) 9.6 % Toney [id number] 00:00:00* Test Item Value Reference Range Interpretation Comme nts RPR RESULT (test code = 3501) NON-REACTIVE RPR TITER (test code = 3500) NOT INDIC. TITER Toney RennerVITAMIN [id number] 00:00:00* Test Item Value Reference Range Interpretation Comme nts VITAMIN B-12 (test code = 2840) 510 PG/ML Toney RennerCBC W/AUTO [id number] 00:00:00* Test Item Value Reference Range Interpretation [...] ABS NUCLEATED RBCS (test cod e = 71764) 0.00 K/UL Toney Cowan AustinCBC W/AUTO [id number] 00:00:00* Test Item Value Reference Range Interpretation [...] ABS NUCLEATED RBCS (test cod e = 56369) 0.00 K/UL HEMOGLOBIN [id number] 00:00:00* Test Item Value Reference Range Interpretation Comme nts HEMOGLOBIN A1c (test code = 46937) 9.6 % [id number] 00:00:00* Test Item Value Reference Range Interpretation Comme nts RPR RESULT (test code = 3501) NON-REACTIVE RPR TITER (test code = 3500) NOT INDIC. TITER VITAMIN [id number] 00:00:00* Test Item Value Reference Range Interpretation Comme nts VITAMIN B-12 (test code = 2840) 510 PG/ML CBC W/AUTO [id number] 00:00:00* Test Item Value Reference Range Interpretation [...] ABS NUCLEATED RBCS (test cod e = 95884) 0.00 K/UL HEMOGLOBIN [id number] 00:00:00* Test Item Value Reference Range Interpretation Comme nts HEMOGLOBIN A1c (test code = 66158) 9.6 % [id number] 00:00:00* Test Item Value Reference Range Interpretation Comme nts RPR RESULT (test code = 3501) NON-REACTIVE RPR TITER (test code = 3500) NOT INDIC. TITER VITAMIN [id number] 00:00:00* Test Item Value Reference Range Interpretation Comme nts VITAMIN B-12 (test code = 2840) 510 PG/ML CBC W/AUTO [id number] 00:00:00* Test Item Value Reference Range Interpretation [...] ABS NUCLEATED RBCS (test cod e = 80045) 0.00 K/UL HEMOGLOBIN [id number] 00:00:00* Test Item Value Reference Range Interpretation Comme nts HEMOGLOBIN A1c (test code = 10444) 9.6 % [id number] 00:00:00* Test Item Value Reference Range Interpretation Comme nts RPR RESULT (test code = 3501) NON-REACTIVE RPR TITER (test code = 3500) NOT INDIC. TITER VITAMIN [id number] 00:00:00* Test Item Value Reference Range Interpretation Comme nts VITAMIN B-12 (test code = 2840) 510 PG/ML CBC W/AUTO [id number] 00:00:00* Test Item Value Reference Range Interpretation [...] ABS NUCLEATED RBCS (test cod e = 40366) 0.00 K/UL HEMOGLOBIN [id number] 00:00:00* Test Item Value Reference Range Interpretation Comme nts HEMOGLOBIN A1c (test code = 22881) 9.6 % [id number] 00:00:00* Test Item Value Reference Range Interpretation Comme nts RPR RESULT (test code = 3501) NON-REACTIVE RPR TITER (test code = 3500) NOT INDIC. TITER VITAMIN [id number] 00:00:00* Test Item Value Reference Range Interpretation Comme nts VITAMIN B-12 (test code = 2840) 510 PG/ML CBC W/AUTO [id number] 00:00:00* Test Item Value Reference Range Interpretation [...] ABS NUCLEATED RBCS (test cod e = 77938) 0.00 K/UL Toney RennerHEMOGLOBIN [id number] 00:00:00* Test Item Value Reference Range Interpretation Comme nts HEMOGLOBIN A1c (test code = 72604) 9.6 % Toney Cowan [id number] 00:00:00* Test Item Value Reference Range Interpretation Comme nts RPR RESULT (test code = 3501) NON-REACTIVE RPR TITER (test code = 3500) NOT INDIC. TITER Toney RennerVITAMIN [id number] 00:00:00* Test Item Value Reference Range Interpretation Comme nts VITAMIN B-12 (test code = 2840) 510 PG/ML Toney Cowan [place]POCT GLUCOSE (AUTOMATED)2022-08-02 16:54:10* Test Item Value Reference Range Interpretation Comme nts POCT GLU (test code = 4803232785) 194 mg/dL 70-110 H Lab Interpretation (test cod e = 76654-4) [facility] 12:46:27* Test Item Value Reference Range Interpretation Comme nts POCT GLU (test code = 8961085342) 184 mg/dL 70-110 H Lab Interpretation (test cod e = 85829-2) Abnormal [facility] GLUCOSE (AUTOMATED)2022-08-01 21:39:34* Test Item Value Reference Range Interpretation Comme nts POCT GLU (test code = 3416882679) 178 mg/dL 70-110 H Lab Interpretation (test cod e = 01613-3) Abnormal [facility] GLUCOSE (AUTOMATED)2022-08-01 16:52:06* Test Item Value Reference Range Interpretation Comme nts POCT GLU (test code = 2579381482) 177 mg/dL 70-110 H Lab Interpretation (test cod e = 21694-8) Abnormal [facility] GLUCOSE (AUTOMATED)2022-08-01 16:49:53* Test Item Value Reference Range Interpretation Comme nts POCT GLU (test code = 3229535350) 184 mg/dL 70-110 H Lab Interpretation (test cod e = 70857-6) Abnormal [facility] GLUCOSE (AUTOMATED)2022-08-01 12:48:55* Test Item Value Reference Range Interpretation Comme nts POCT GLU (test code = 7218289362) 180 mg/dL 70-110 H Lab Interpretation (test cod e = 22809-5) Abnormal [facility] GLUCOSE (AUTOMATED)2022-08-01 01:05:36* Test Item Value Reference Range Interpretation Comme nts POCT GLU (test code = 1769469008) 217 mg/dL 70-110 H Lab Interpretation (test cod e = 64800-8) [facility]normal [facility]2022-[facility]-31 22:39:50* Test Item Value Reference Range Interpretation Comme nts Height (test code = 2475016063) in Weight (test code = 6164358982) lbs Systolic BP (test code = 5928254056) mmHg Diastolic BP (test code = 1730651111) mmHg Heart Rate (test code = 9176846326) bpm BSA (test code = 6297345553) 1.76 m2 Ao root diam (test code = 7975041038) 3.20 cm Aortic root (test code = 4837223245) 3.2 cm Ao root annulus (test code = 3190547692) 3.2 cm LVOT diameter (test code = 1354651169) 1.90 cm LVOT area (test code = 0325690342) 2.80 cm2 LVIDD (test code = 0863755812) 4.20 cm Left Ventricular End Diastolic Volume by Teichholz Method (test code = 6060636) 77.7 mL IVS (test code = 8771589008) 1.31 cm Interventricular Septum Diastolic Thickness by 2D (test code = 3356084) 1.31 cm LVPWD (test code = 0687291815) 1.31 cm PW (test code = 6048912779) 1.31 cm 0.6-1.1 EF(Teich) (test code = 3403683607) 60.50 % LVIDS (test code = 5341047290) 2.80 cm Left Ventricular End Systolic Volume by Teichholz Method (test code = 2406707) 30.7 mL FS (test code = 2610182659) 32 % EF - 2D (test code = 59764330) 60.50 % LA size (test code = 8778917449) 3.5 cm TR Peak Rebekah (test code = 7807173112) 226.6 cm/s Triscuspid Valve Regurgitation Peak Gradient (test code = 0012450799) mmHg Pulmonic Regurgitant End Max Velocity (test code = 3322769944) 86.0 cm/s LAV(MOD-sp4) (test code = 9329136037) 42.30 mL E wave decelartion time (test code = 1119128113) 0.31 s MV stenosis pressure 1/2 time (test code = 5165493230) 93.6 ms MV Peak E Rebekah (test code = 2453617458) 62.3 cm/s MV Peak A Rebekah (test code = 3410550423) 81.2 cm/s E/A ratio (test code = 2892753674) ratio MV Prop V (test code = 6335096176) 21.70 cm/s MV E/e' septal (test code = 2398346890) 6.9 cm/s Tapse (test code = 5906874602) 2.15 cm LVOT stroke volume (test code = 8417346567) 53.70 cm3 LVOT peak rebekah (test code = 5108039159) 82.7 cm/s LVOT mn grad (test code = 4402933132) mmHg AV LVOT peak gradient (test code = 1403410813) mmHg LVOT peak VTI (test code = 2721525291) 18.9 cm LV V1 mean (test code = 1580992886) 53.70 cm/s AV regurgitation pressure 1/2 time (test code = 9919213954) 774.6 ms AI dec slope (test code = 0412245977) 179.20 cm/s2 AI max rebekah (test code = 2017734085) 473.80 cm/s AI max PG (test code = 8248476191) 89.80 mm[Hg] Aortic valve mean velocity (test code = 0705732777) 104.6 cm/s Ao peak rebekah (test code = 6863663290) 150.2 cm/s Ao VTI (test code = 5295878466) 32.4 cm AV area by cont VTI (test code = 6451798610) 1.7 cm2 AV area peak rebekah (test code = 0859997371) 1.6 cm2 Ao max PG (test code = 2180536813) 9.00 mm[Hg] AV peak gradient (test code = 3435541559) mmHg AV valve area (test code = 0322689310) 1.66 cm2 AV mean gradient (test code = 6010153917) mmHg MR max PG (test code = 1276471472) 89.70 mm[Hg] MR max rebekah (test code = 3948914829) 473.00 cm/s Mr max rebekah (test code = 1952538718) 473.0 m/s Radiology Study observation (narrative) (test code = 16454-9) FIOR (test code = FIOR) ?Left?Ventricle: Left [...] 2D, color flow Doppler and spectral Doppler. [facility] GLUCOSE (AUTOMATED)2022-07-31 21:44:50* Test Item Value Reference Range Interpretation Comme nts POCT GLU (test code = 3841447712) 219 mg/dL 70-110 H Lab Interpretation (test cod e = 60923-4) Abnormal [facility] GLUCOSE (AUTOMATED)2022-07-31 12:48:44* Test Item Value Reference Range Interpretation Comme nts POCT GLU (test code = 5683766806) 201 mg/dL 70-110 H Lab Interpretation (test cod e = 88789-0) [facility]normal [facility], [id number] 09:11:42SPECIMEN NUMBER: [id number] CULTURE, URINE SPECIMEN NUMBER: [id number] SPECIMEN COMMENT: URINE SOURCE: URINE REPORT STATUS: FINAL FINAL REPORT: 05/05/2022 10-50,000 CFU/ML UROGENITAL WOLF PRESENT NO COMMON PATHOGENSCULTURE, [id number] 00:00:00* Test Item Value Reference Range Interpretation Comme nts CULTURE, URINE (test code = 15519) SPECIMEN NUMBER: [id number] Toney MarcusLTBG, [id number] 00:00:00* Test Item Value Reference Range Interpretation Comme nts CULTURE, URINE (test code = 58657) SPECIMEN NUMBER: [id number] Toney MarcusLTBG, [id number] 00:00:00* Test Item Value Reference Range Interpretation Comme nts CULTURE, URINE (test code = 58434) SPECIMEN NUMBER: [id number] Toney Salinas, [id number] 00:00:00* Test Item Value Reference Range Interpretation Comme nts CULTURE, URINE (test code = 08804) SPECIMEN NUMBER: [id number] Toney Salinas, [id number] 00:00:00* Test Item Value Reference Range Interpretation Comme nts CULTURE, URINE (test code = 48815) SPECIMEN NUMBER: [id number] Toney Salinas, [id number] 00:00:00* Test Item Value Reference Range Interpretation Comme nts CULTURE, URINE (test code = 80315) SPECIMEN NUMBER: [id number] Toney Salinas, [id number] 00:00:00* Test Item Value Reference Range Interpretation Comme nts CULTURE, URINE (test code = 26876) SPECIMEN NUMBER: [id number] CULTURE, [id number] 00:00:00* Test Item Value Reference Range Interpretation Comme nts CULTURE, URINE (test code = 35340) SPECIMEN NUMBER: [id number] CULTURE, [id number] 00:00:00* Test Item Value Reference Range Interpretation Comme nts CULTURE, URINE (test code = 69867) SPECIMEN NUMBER: [id number] CULTURE, [id number] 00:00:00* Test Item Value Reference Range Interpretation Comme nts CULTURE, URINE (test code = 69084) SPECIMEN NUMBER: [id number] CULTURE, [id number] 00:00:00* Test Item Value Reference Range Interpretation Comme nts CULTURE, URINE (test code = 63503) SPECIMEN NUMBER: [id number] CULTURE, [id number] 00:00:00* Test Item Value Reference Range Interpretation Comme nts CULTURE, URINE (test code = 96061) SPECIMEN NUMBER: [id number] CULTURE, [id number] 00:00:00* Test Item Value Reference Range Interpretation Comme nts CULTURE, URINE (test code = 52727) SPECIMEN NUMBER: [id number] CULTURE, [id number] 00:00:00* Test Item Value Reference Range Interpretation Comme nts CULTURE, URINE (test code = 32850) SPECIMEN NUMBER: [id number] CULTURE, [id number] 00:00:00* Test Item Value Reference Range Interpretation Comme nts CULTURE, URINE (test code = 25815) SPECIMEN NUMBER: [id number] Toney RennerCULTURE, [id number] 00:00:00* Test Item Value Reference Range Interpretation Comme nts CULTURE, URINE (test code = 59346) SPECIMEN NUMBER: [id number] Toney RennerHEMOGLOBIN [id number] 05:13:20* Test Item Value Reference Range Interpretation Comme nts HEMOGLOBIN A1c (test code = 03242) 10.2 % 4.2-5.6 H [employer] GUIDELINES FOR HGB A1C: [...] CONSULTATION. UNLESS OTHERWISE INDICATED, ALL TESTING PERFORMED [facility] [employer] [employer] [address] [place] [address] HOOP CUTTER: JENNIFER BECKMAN M.D. CLIA NUMBER [id number] [facility] [place]. [id number] HEMOGLOBIN [id number] 00:00:00* Test Item Value Reference Range Interpretation Comme nts HEMOGLOBIN A1c (test code = 42809) 10.2 % Toney Cowan AustinHEMOGLOBIN [id number] 00:00:00* Test Item Value Reference Range Interpretation Comme nts HEMOGLOBIN A1c (test code = 68130) 10.2 % Toney Cowan AustinHEMOGLOBIN [id number] 00:00:00* Test Item Value Reference Range Interpretation Comme nts HEMOGLOBIN A1c (test code = 63161) 10.2 % Toney Cowan AustinHEMOGLOBIN [id number] 00:00:00* Test Item Value Reference Range Interpretation Comme nts HEMOGLOBIN A1c (test code = 38295) 10.2 % Toney Cowan AustinHEMOGLOBIN [id number] 00:00:00* Test Item Value Reference Range Interpretation Comme nts HEMOGLOBIN A1c (test code = 35992) 10.2 % Toney Cowan AustinHEMOGLOBIN [id number] 00:00:00* Test Item Value Reference Range Interpretation Comme nts HEMOGLOBIN A1c (test code = 53754) 10.2 % Toney Cowan AustinHEMOGLOBIN [id number] 00:00:00* Test Item Value Reference Range Interpretation Comme nts HEMOGLOBIN A1c (test code = 73538) 10.2 % Toney Cowan AustinHEMOGLOBIN [id number] 00:00:00* Test Item Value Reference Range Interpretation Comme nts HEMOGLOBIN A1c (test code = 72466) 10.2 % HEMOGLOBIN [id number] 00:00:00* Test Item Value Reference Range Interpretation Comme nts HEMOGLOBIN A1c (test code = 99071) 10.2 % HEMOGLOBIN [id number] 00:00:00* Test Item Value Reference Range Interpretation Comme nts HEMOGLOBIN A1c (test code = 44994) 10.2 % HEMOGLOBIN [id number] 00:00:00* Test Item Value Reference Range Interpretation Comme nts HEMOGLOBIN A1c (test code = 55887) 10.2 % HEMOGLOBIN [id number] 00:00:00* Test Item Value Reference Range Interpretation Comme nts HEMOGLOBIN A1c (test code = 32986) 10.2 % HEMOGLOBIN [id number] 00:00:00* Test Item Value Reference Range Interpretation Comme nts HEMOGLOBIN A1c (test code = 76588) 10.2 % HEMOGLOBIN [id number] 00:00:00* Test Item Value Reference Range Interpretation Comme nts HEMOGLOBIN A1c (test code = 60243) 10.2 % HEMOGLOBIN [id number] 00:00:00* Test Item Value Reference Range Interpretation Comme nts HEMOGLOBIN A1c (test code = 39755) 10.2 % HEMOGLOBIN [id number] 00:00:00* Test Item Value Reference Range Interpretation Comme nts HEMOGLOBIN A1c (test code = 24472) 10.2 % Toney Cowan AustinOCCULT BLD,FECAL,IMMUNOASSAY DIAG [ADDED]2022-02-05 00:00:00* Test Item Value Reference Range Interpretation Comme nts OCCULT BLD, FECAL (test code = 71556) NEGATIVE Toney Cowan AustinOCCULT BLD,FECAL,IMMUNOASSAY DIAG [ADDED]2022-02-05 00:00:00* Test Item Value Reference Range Interpretation Comme nts OCCULT BLD, FECAL (test code = 33676) NEGATIVE Toney F AustinOCCULT BLD,FECAL,IMMUNOASSAY DIAG [ADDED]2022-02-05 00:00:00* Test Item Value Reference Range Interpretation Comme nts OCCULT BLD, FECAL (test code = 82445) NEGATIVE Toney F AustinOCCULT BLD,FECAL,IMMUNOASSAY DIAG [ADDED]2022-02-05 00:00:00* Test Item Value Reference Range Interpretation Comme nts OCCULT BLD, FECAL (test code = 30801) NEGATIVE Toney F AustinOCCULT BLD,FECAL,IMMUNOASSAY DIAG [ADDED]2022-02-05 00:00:00* Test Item Value Reference Range Interpretation Comme nts OCCULT BLD, FECAL (test code = 66563) NEGATIVE Toney F AustinOCCULT BLD,FECAL,IMMUNOASSAY DIAG [ADDED]2022-02-05 00:00:00* Test Item Value Reference Range Interpretation Comme nts OCCULT BLD, FECAL (test code = 81596) NEGATIVE Toney F AustinOCCULT BLD,FECAL,IMMUNOASSAY DIAG [ADDED]2022-02-05 00:00:00* Test Item Value Reference Range Interpretation Comme nts OCCULT BLD, FECAL (test code = 83914) NEGATIVE Toney F AustinOCCULT BLD,FECAL,IMMUNOASSAY DIAG [ADDED]2022-02-05 00:00:00* Test Item Value Reference Range Interpretation Comme nts OCCULT BLD, FECAL (test code = 98175) NEGATIVE OCCULT BLD,FECAL,IMMUNOASSAY DIAG [ADDED]2022-02-05 00:00:00* Test Item Value Reference Range Interpretation Comme nts OCCULT BLD, FECAL (test code = 43210) NEGATIVE OCCULT BLD,FECAL,IMMUNOASSAY DIAG [ADDED]2022-02-05 00:00:00* Test Item Value Reference Range Interpretation Comme nts OCCULT BLD, FECAL (test code = 49722) NEGATIVE OCCULT BLD,FECAL,IMMUNOASSAY DIAG [ADDED]2022-02-05 00:00:00* Test Item Value Reference Range Interpretation Comme nts OCCULT BLD, FECAL (test code = 51919) NEGATIVE OCCULT BLD,FECAL,IMMUNOASSAY DIAG [ADDED]2022-02-05 00:00:00* Test Item Value Reference Range Interpretation Comme nts OCCULT BLD, FECAL (test code = 73942) NEGATIVE OCCULT BLD,FECAL,IMMUNOASSAY DIAG [ADDED]2022-02-05 00:00:00* Test Item Value Reference Range Interpretation Comme nts OCCULT BLD, FECAL (test code = 12333) NEGATIVE OCCULT BLD,FECAL,IMMUNOASSAY DIAG [ADDED]2022-02-05 00:00:00* Test Item Value Reference Range Interpretation Comme nts OCCULT BLD, FECAL (test code = 79446) NEGATIVE OCCULT BLD,FECAL,IMMUNOASSAY DIAG [ADDED]2022-02-05 00:00:00* Test Item Value Reference Range Interpretation Comme nts OCCULT BLD, FECAL (test code = 28914) NEGATIVE OCCULT BLD,FECAL,IMMUNOASSAY DIAG [ADDED]2022-02-05 00:00:00* Test Item Value Reference Range Interpretation Comme nts OCCULT BLD, FECAL (test code = 80340) NEGATIVE OCCULT BLD,FECAL,IMMUNOASSAY DIAG [ADDED]2022-02-05 00:00:00* Test Item Value Reference Range Interpretation Comme nts OCCULT BLD, FECAL (test code = 36952) NEGATIVE Toney RennerCOMPREHENSIVE METABOLIC [id number] 05:33:23* Test Item Value Reference Range Interpretation Comme nts GLUCOSE (test code = 2217) 290 MG/DL 70-99 H BUN (test code = 2207) 16 MG/DL 8-23 CREATININE (test code = 2214) 0.48 MG/DL 0.60-1.30 L eGFR (2020 CKD-EPI) (test code = 51320) 102 ML/MIN/1.73 >60 CALC BUN/CREAT (test code = 2235) 33 RATIO 6-28 H SODIUM (test code = 223) 142 MEQ/L 133-146 POTASSIUM (test code = 2228) 4.5 MEQ/L 3.5-5.4 CHLORIDE (test code = 2215) 102 MEQ/L 95-107 CARBON DIOXIDE (test code = 2206) 26 MEQ/L 19-31 CALCIUM (test code = 2209) 9.7 MG/DL 8.5-10.5 PROTEIN, TOTAL (test code = 2228) 7.5 G/DL 6.1-8.3 ALBUMIN (test code = 2200) 4.3 G/DL 3.5-5.2 CALC GLOBULIN (test code = 224) 3.2 G/DL 1.9-3.7 CALC A/G RATIO (test [...] code = 2219) 29 U/L 5-40 LIPID [id number] 05:33:23* Test Item Value Reference Range Interpretation Comme nts CHOLESTEROL (test code = 2210) 168 MG/DL <200 TRIGLYCERIDES (test code = 2232) 99 MG/DL <150 HDL CHOLESTEROL (test code = 0) 52 MG/DL >39 CALC LDL CHOL (test code = 223) 97 MG/DL <100 NOTE: CALCULATED LDL IS BASED ON SANDRA-TELLO METHOD WHICHINCLUDES ADJUSTABLE TRIGLYCERIDE:VLDL CHOLESTEROL RATIO.THIS FACTOR VARIES BY MEASURED TRIGLYCERIDE AND NON-HDLCHOLESTEROL CONCENTRATIONS WITH INCREASED CALCULATED LDL SEENIN HIGHER TRIGLYCERIDE OR LOWER NON-HDL SPECIMENS. FOR MOREINFORMATION, SEE CLIENT ANNOUNCEMENT AT [email or web address] RISK RATIO LDL/HDL (test code = 2238) 1.87 RATIO <3.22 HEMOGLOBIN [id number] 04:54:03* Test Item Value Reference Range Interpretation Comme nts HEMOGLOBIN A1c (test code = 56920) 11.2 % 4.2-5.6 H [employer] GUIDELINES FOR HGB A1C: [...] CONSULTATION. UNLESS OTHERWISE INDICATED, ALL TESTING PERFORMED [facility] [employer] [address] [place] [address], [place] [address] HOOP CUTTER: JENNIFER BECKMAN M.D. CLIA NUMBER [id number] [place]. [id number] CBC W/AUTO DIFF WITH [id number] 04:25:48* Test Item Value Reference Range Interpretation [...] 0.00-0.10 ABS NUCLEATED RBCS (test code = 52143) 0.00 K/UL 0.00-0.11 CBC W/AUTO [id number] 00:00:00* Test Item Value Reference Range Interpretation [...] ABS NUCLEATED RBCS (test cod e = 95919) 0.00 K/UL Toney F AustinCOMPREHENSIVE METABOLIC [id number] 00:00:00* Test Item Value Reference Range Interpretation Comme nts GLUCOSE (test code = 2217) 290 MG/DL BUN (test code = 2208) 16 MG/DL CREATININE (test code = 2214) 0.48 MG/DL eGFR (2020 CKD-EPI) (test code = 97757) 102 ML/MIN/1.73 CALC BUN/CREAT (test code = [...] code = 2219) 29 U/L Toney RennerLIPID [id number] 00:00:00* Test Item Value Reference Range Interpretation Comme nts CHOLESTEROL (test code = 2210) 168 MG/DL TRIGLYCERIDES (test code = 2232) 99 MG/DL HDL CHOLESTEROL (test code = 2220) 52 MG/DL CALC LDL CHOL (test code = 2237) 97 MG/DL RISK RATIO LDL/HDL (test cod e = 2238) 1.87 RATIO Toney RennerHEMOGLOBIN [id number] 00:00:00* Test Item Value Reference Range Interpretation Comme nts HEMOGLOBIN A1c (test code = 84091) 11.2 % Toney RennerCOMPREHENSIVE METABOLIC [id number] 00:00:00* Test Item Value Reference Range Interpretation Comme nts GLUCOSE (test code = 2217) 290 MG/DL BUN (test code = 2208) 16 MG/DL CREATININE (test code = 2214) 0.48 MG/DL eGFR (2020 CKD-EPI) (test code = 30010) 102 ML/MIN/1.73 CALC BUN/CREAT (test code = [...] code = 2219) 29 U/L Toney RennerLIPID [id number] 00:00:00* Test Item Value Reference Range Interpretation Comme nts CHOLESTEROL (test code = 2210) 168 MG/DL TRIGLYCERIDES (test code = 2232) 99 MG/DL HDL CHOLESTEROL (test code = 2220) 52 MG/DL CALC LDL CHOL (test code = 2237) 97 MG/DL RISK RATIO LDL/HDL (test cod e = 2238) 1.87 RATIO Toney RennerHEMOGLOBIN [id number] 00:00:00* Test Item Value Reference Range Interpretation Comme nts HEMOGLOBIN A1c (test code = 99337) 11.2 % Toney RennerCBC W/AUTO [id number] 00:00:00* Test Item Value Reference Range Interpretation [...] ABS NUCLEATED RBCS (test cod e = 81254) 0.00 K/UL Toney RennerCOMPREHENSIVE METABOLIC [id number] 00:00:00* Test Item Value Reference Range Interpretation Comme nts GLUCOSE (test code = 2217) 290 MG/DL BUN (test code = 2208) 16 MG/DL CREATININE (test code = 2214) 0.48 MG/DL eGFR (2020 CKD-EPI) (test code = 01391) 102 ML/MIN/1.73 CALC BUN/CREAT (test code = [...] code = 2219) 29 U/L Toney RennerLIPID [id number] 00:00:00* Test Item Value Reference Range Interpretation Comme nts CHOLESTEROL (test code = 2210) 168 MG/DL TRIGLYCERIDES (test code = 2232) 99 MG/DL HDL CHOLESTEROL (test code = 2220) 52 MG/DL CALC LDL CHOL (test code = 2237) 97 MG/DL RISK RATIO LDL/HDL (test cod e = 2238) 1.87 RATIO oTney RennerHEMOGLOBIN [id number] 00:00:00* Test Item Value Reference Range Interpretation Comme nts HEMOGLOBIN A1c (test code = 84325) 11.2 % Toney RennerCBC W/AUTO [id number] 00:00:00* Test Item Value Reference Range Interpretation [...] ABS NUCLEATED RBCS (test cod e = 32584) 0.00 K/UL Toney Cowan AustinCOMPREHENSIVE METABOLIC [id number] 00:00:00* Test Item Value Reference Range Interpretation Comme nts GLUCOSE (test code = 2217) 290 MG/DL BUN (test code = 2208) 16 MG/DL CREATININE (test code = 2214) 0.48 MG/DL eGFR (2020 CKD-EPI) (test code = 07989) 102 ML/MIN/1.73 CALC BUN/CREAT (test code = [...] code = 2219) 29 U/L Toney RennerLIPID [id number] 00:00:00* Test Item Value Reference Range Interpretation Comme nts CHOLESTEROL (test code = 2210) 168 MG/DL TRIGLYCERIDES (test code = 2232) 99 MG/DL HDL CHOLESTEROL (test code = 2220) 52 MG/DL CALC LDL CHOL (test code = 2237) 97 MG/DL RISK RATIO LDL/HDL (test cod e = 2238) 1.87 RATIO Toney RennerHEMOGLOBIN [id number] 00:00:00* Test Item Value Reference Range Interpretation Comme nts HEMOGLOBIN A1c (test code = 37528) 11.2 % Toney RennerCBC W/AUTO [id number] 00:00:00* Test Item Value Reference Range Interpretation [...] ABS NUCLEATED RBCS (test cod e = 78052) 0.00 K/UL Toney RennerCOMPREHENSIVE METABOLIC [id number] 00:00:00* Test Item Value Reference Range Interpretation Comme nts GLUCOSE (test code = 2217) 290 MG/DL BUN (test code = 2208) 16 MG/DL CREATININE (test code = 2214) 0.48 MG/DL eGFR (2020 CKD-EPI) (test code = 79675) 102 ML/MIN/1.73 CALC BUN/CREAT (test code = [...] code = 2219) 29 U/L Toney RennerLIPID [id number] 00:00:00* Test Item Value Reference Range Interpretation Comme nts CHOLESTEROL (test code = 2210) 168 MG/DL TRIGLYCERIDES (test code = 2232) 99 MG/DL HDL CHOLESTEROL (test code = 2220) 52 MG/DL CALC LDL CHOL (test code = 2237) 97 MG/DL RISK RATIO LDL/HDL (test cod e = 2238) 1.87 RATIO Toney RennerHEMOGLOBIN [id number] 00:00:00* Test Item Value Reference Range Interpretation Comme nts HEMOGLOBIN A1c (test code = 04216) 11.2 % Toney RennerCBC W/AUTO [id number] 00:00:00* Test Item Value Reference Range Interpretation [...] ABS NUCLEATED RBCS (test cod e = 08583) 0.00 K/UL Toney RennerCOMPREHENSIVE METABOLIC [id number] 00:00:00* Test Item Value Reference Range Interpretation Comme nts GLUCOSE (test code = 2217) 290 MG/DL BUN (test code = 2208) 16 MG/DL CREATININE (test code = 2214) 0.48 MG/DL eGFR (2020 CKD-EPI) (test code = 74166) 102 ML/MIN/1.73 CALC BUN/CREAT (test code = [...] code = 2219) 29 U/L Toney RennerLIPID [id number] 00:00:00* Test Item Value Reference Range Interpretation Comme nts CHOLESTEROL (test code = 2210) 168 MG/DL TRIGLYCERIDES (test code = 2232) 99 MG/DL HDL CHOLESTEROL (test code = 2220) 52 MG/DL CALC LDL CHOL (test code = 2237) 97 MG/DL RISK RATIO LDL/HDL (test cod e = 2238) 1.87 RATIO Toney RennerHEMOGLOBIN [id number] 00:00:00* Test Item Value Reference Range Interpretation Comme [facility] HEMOGLOBIN A1c (test code = 13036) 11.2 % Toney RennerCBC W/AUTO [id number] 00:00:00* Test Item Value Reference Range Interpretation [...] ABS NUCLEATED RBCS (test cod e = 14555) 0.00 K/UL Toney F ZurdoCOMPREHENSIVE METABOLIC [id number] 00:00:00* Test Item Value Reference Range Interpretation Comme nts GLUCOSE (test code = 2217) 290 MG/DL BUN (test code = 2208) 16 MG/DL CREATININE (test code = 2214) 0.48 MG/DL eGFR (2020 CKD-EPI) (test code = 14514) 102 ML/MIN/1.73 CALC BUN/CREAT (test code = [...] code = 2219) 29 U/L Toney RennerLIPID [id number] 00:00:00* Test Item Value Reference Range Interpretation Comme nts CHOLESTEROL (test code = 2210) 168 MG/DL TRIGLYCERIDES (test code = 2232) 99 MG/DL HDL CHOLESTEROL (test code = 2220) 52 MG/DL CALC LDL CHOL (test code = 2237) 97 MG/DL RISK RATIO LDL/HDL (test cod e = 2238) 1.87 RATIO Toney RennerHEMOGLOBIN [id number] 00:00:00* Test Item Value Reference Range Interpretation Comme nts HEMOGLOBIN A1c (test code = 14047) 11.2 % Toney RennerCBC W/AUTO [id number] 00:00:00* Test Item Value Reference Range Interpretation [...] ABS NUCLEATED RBCS (test cod e = 51150) 0.00 K/UL COMPREHENSIVE METABOLIC [id number] 00:00:00* Test Item Value Reference Range Interpretation Comme nts GLUCOSE (test code = 2217) 290 MG/DL BUN (test code = 2208) 16 MG/DL CREATININE (test code = 2214) 0.48 MG/DL eGFR (2020 CKD-EPI) (test code = 49975) 102 ML/MIN/1.73 CALC BUN/CREAT (test code = [...] (test code = 2219) 29 U/L LIPID [id number] 00:00:00* Test Item Value Reference Range Interpretation Comme nts CHOLESTEROL (test code = 2210) 168 MG/DL TRIGLYCERIDES (test code = 2232) 99 MG/DL HDL CHOLESTEROL (test code = 2220) 52 MG/DL CALC LDL CHOL (test code = 2237) 97 MG/DL RISK RATIO LDL/HDL (test cod e = 2238) 1.87 RATIO HEMOGLOBIN [id number] 00:00:00* Test Item Value Reference Range Interpretation Comme nts HEMOGLOBIN A1c (test code = 68474) 11.2 % CBC W/AUTO [id number] 00:00:00* Test Item Value Reference Range Interpretation [...] ABS NUCLEATED RBCS (test cod e = 31172) 0.00 K/UL COMPREHENSIVE METABOLIC [id number] 00:00:00* Test Item Value Reference Range Interpretation Comme nts GLUCOSE (test code = 2217) 290 MG/DL BUN (test code = 2208) 16 MG/DL CREATININE (test code = 2214) 0.48 MG/DL eGFR (2020 CKD-EPI) (test code = 81555) 102 ML/MIN/1.73 CALC BUN/CREAT (test code = [...] (test code = 2219) 29 U/L LIPID [id number] 00:00:00* Test Item Value Reference Range Interpretation Comme nts CHOLESTEROL (test code = 2210) 168 MG/DL TRIGLYCERIDES (test code = 2232) 99 MG/DL HDL CHOLESTEROL (test code = 2220) 52 MG/DL CALC LDL CHOL (test code = 2237) 97 MG/DL RISK RATIO LDL/HDL (test cod e = 2238) 1.87 RATIO HEMOGLOBIN [id number] 00:00:00* Test Item Value Reference Range Interpretation Comme nts HEMOGLOBIN A1c (test code = 44453) 11.2 % CBC W/AUTO [id number] 00:00:00* Test Item Value Reference Range Interpretation [...] ABS NUCLEATED RBCS (test cod e = 81119) 0.00 K/UL COMPREHENSIVE METABOLIC [id number] 00:00:00* Test Item Value Reference Range Interpretation Comme nts GLUCOSE (test code = 2217) 290 MG/DL BUN (test code = 2208) 16 MG/DL CREATININE (test code = 2214) 0.48 MG/DL eGFR (2020 CKD-EPI) (test code = 26818) 102 ML/MIN/1.73 CALC BUN/CREAT (test code = [...] (test code = 2219) 29 U/L LIPID [id number] 00:00:00* Test Item Value Reference Range Interpretation Comme nts CHOLESTEROL (test code = 2210) 168 MG/DL TRIGLYCERIDES (test code = 2232) 99 MG/DL HDL CHOLESTEROL (test code = 2220) 52 MG/DL CALC LDL CHOL (test code = 2237) 97 MG/DL RISK RATIO LDL/HDL (test cod e = 2238) 1.87 RATIO HEMOGLOBIN [id number] 00:00:00* Test Item Value Reference Range Interpretation Comme nts HEMOGLOBIN A1c (test code = 59347) 11.2 % CBC W/AUTO [id number] 00:00:00* Test Item Value Reference Range Interpretation [...] ABS NUCLEATED RBCS (test cod e = 24225) 0.00 K/UL COMPREHENSIVE METABOLIC [id number] 00:00:00* Test Item Value Reference Range Interpretation Comme nts GLUCOSE (test code = 2217) 290 MG/DL BUN (test code = 2208) 16 MG/DL CREATININE (test code = 2214) 0.48 MG/DL eGFR (2020 CKD-EPI) (test code = 52345) 102 ML/MIN/1.73 CALC BUN/CREAT (test code = [...] (test code = 2219) 29 U/L LIPID [id number] 00:00:00* Test Item Value Reference Range Interpretation Comme nts CHOLESTEROL (test code = 2210) 168 MG/DL TRIGLYCERIDES (test code = 2232) 99 MG/DL HDL CHOLESTEROL (test code = 2220) 52 MG/DL CALC LDL CHOL (test code = 2237) 97 MG/DL RISK RATIO LDL/HDL (test cod e = 2238) 1.87 RATIO HEMOGLOBIN [id number] 00:00:00* Test Item Value Reference Range Interpretation Comme nts HEMOGLOBIN A1c (test code = 43370) 11.2 % CBC W/AUTO [id number] 00:00:00* Test Item Value Reference Range Interpretation [...] ABS NUCLEATED RBCS (test cod e = 79380) 0.00 K/UL COMPREHENSIVE METABOLIC [id number] 00:00:00* Test Item Value Reference Range Interpretation Comme nts GLUCOSE (test code = 2217) 290 MG/DL BUN (test code = 2208) 16 MG/DL CREATININE (test code = 2214) 0.48 MG/DL eGFR (2020 CKD-EPI) (test code = 65069) 102 ML/MIN/1.73 CALC BUN/CREAT (test code = [...] (test code = 2219) 29 U/L LIPID [id number] 00:00:00* Test Item Value Reference Range Interpretation Comme nts CHOLESTEROL (test code = 2210) 168 MG/DL TRIGLYCERIDES (test code = 2232) 99 MG/DL HDL CHOLESTEROL (test code = 2220) 52 MG/DL CALC LDL CHOL (test code = 2237) 97 MG/DL RISK RATIO LDL/HDL (test cod e = 2238) 1.87 RATIO CBC W/AUTO [id number] 00:00:00* Test Item Value Reference Range Interpretation [...] ABS NUCLEATED RBCS (test cod e = 31638) 0.00 K/UL COMPREHENSIVE METABOLIC [id number] 00:00:00* Test Item Value Reference Range Interpretation Comme nts GLUCOSE (test code = 2217) 290 MG/DL BUN (test code = 2208) 16 MG/DL CREATININE (test code = 2214) 0.48 MG/DL eGFR (2020 CKD-EPI) (test code = 59362) 102 ML/MIN/1.73 CALC BUN/CREAT (test code = [...] (test code = 2219) 29 U/L HEMOGLOBIN [id number] 00:00:00* Test Item Value Reference Range Interpretation Comme nts HEMOGLOBIN A1c (test code = 07956) 11.2 % LIPID [id number] 00:00:00* Test Item Value Reference Range Interpretation Comme nts CHOLESTEROL (test code = 2210) 168 MG/DL TRIGLYCERIDES (test code = 2232) 99 MG/DL HDL CHOLESTEROL (test code = 2220) 52 MG/DL CALC LDL CHOL (test code = 2237) 97 MG/DL RISK RATIO LDL/HDL (test cod e = 2238) 1.87 RATIO HEMOGLOBIN [id number] 00:00:00* Test Item Value Reference Range Interpretation Comme nts HEMOGLOBIN A1c (test code = 56353) 11.2 % CBC W/AUTO [id number] 00:00:00* Test Item Value Reference Range Interpretation [...] ABS NUCLEATED RBCS (test cod e = 62312) 0.00 K/UL COMPREHENSIVE METABOLIC [id number] 00:00:00* Test Item Value Reference Range Interpretation Comme nts GLUCOSE (test code = 2217) 290 MG/DL BUN (test code = 2208) 16 MG/DL CREATININE (test code = 2214) 0.48 MG/DL eGFR (2020 CKD-EPI) (test code = 94126) 102 ML/MIN/1.73 CALC BUN/CREAT (test code = [...] (test code = 2219) 29 U/L LIPID [id number] 00:00:00* Test Item Value Reference Range Interpretation Comme nts CHOLESTEROL (test code = 2210) 168 MG/DL TRIGLYCERIDES (test code = 2232) 99 MG/DL HDL CHOLESTEROL (test code = 2220) 52 MG/DL CALC LDL CHOL (test code = 2237) 97 MG/DL RISK RATIO LDL/HDL (test cod e = 2238) 1.87 RATIO HEMOGLOBIN [id number] 00:00:00* Test Item Value Reference Range Interpretation Comme nts HEMOGLOBIN A1c (test code = 11290) 11.2 % CBC W/AUTO [id number] 00:00:00* Test Item Value Reference Range Interpretation [...] ABS NUCLEATED RBCS (test cod e = 16612) 0.00 K/UL COMPREHENSIVE METABOLIC [id number] 00:00:00* Test Item Value Reference Range Interpretation Comme nts GLUCOSE (test code = 2217) 290 MG/DL BUN (test code = 2208) 16 MG/DL CREATININE (test code = 2214) 0.48 MG/DL eGFR (2020 CKD-EPI) (test code = 55503) 102 ML/MIN/1.73 CALC BUN/CREAT (test code = [...] (test code = 2219) 29 U/L LIPID [id number] 00:00:00* Test Item Value Reference Range Interpretation Comme nts CHOLESTEROL (test code = 2210) 168 MG/DL TRIGLYCERIDES (test code = 2232) 99 MG/DL HDL CHOLESTEROL (test code = 2220) 52 MG/DL CALC LDL CHOL (test code = 2237) 97 MG/DL RISK RATIO LDL/HDL (test cod e = 2238) 1.87 RATIO HEMOGLOBIN [id number] 00:00:00* Test Item Value Reference Range Interpretation Comme nts HEMOGLOBIN A1c (test code = 95212) 11.2 % CBC W/AUTO [id number] 00:00:00* Test Item Value Reference Range Interpretation [...] ABS NUCLEATED RBCS (test cod e = 22520) 0.00 K/UL COMPREHENSIVE METABOLIC [id number] 00:00:00* Test Item Value Reference Range Interpretation Comme nts GLUCOSE (test code = 2217) 290 MG/DL BUN (test code = 2208) 16 MG/DL CREATININE (test code = 2214) 0.48 MG/DL eGFR (2020 CKD-EPI) (test code = 76822) 102 ML/MIN/1.73 CALC BUN/CREAT (test code = [...] (test code = 2219) 29 U/L LIPID [id number] 00:00:00* Test Item Value Reference Range Interpretation Comme nts CHOLESTEROL (test code = 2210) 168 MG/DL TRIGLYCERIDES (test code = 2232) 99 MG/DL HDL CHOLESTEROL (test code = 2220) 52 MG/DL CALC LDL CHOL (test code = 2237) 97 MG/DL RISK RATIO LDL/HDL (test cod e = 2238) 1.87 RATIO HEMOGLOBIN [id number] 00:00:00* Test Item Value Reference Range Interpretation Comme nts HEMOGLOBIN A1c (test code = 10645) 11.2 % CBC W/AUTO [id number] 00:00:00* Test Item Value Reference Range Interpretation [...] ABS NUCLEATED RBCS (test cod e = 30426) 0.00 K/UL Toney RennerCOMPREHENSIVE METABOLIC [id number] 00:00:00* Test Item Value Reference Range Interpretation Comme nts GLUCOSE (test code = 2217) 290 MG/DL BUN (test code = 2208) 16 MG/DL CREATININE (test code = 2214) 0.48 MG/DL eGFR (2020 CKD-EPI) (test code = 17893) 102 ML/MIN/1.73 CALC BUN/CREAT (test code = [...] code = 2219) 29 U/L Toney RennerLIPID [id number] 00:00:00* Test Item Value Reference Range Interpretation Comme nts CHOLESTEROL (test code = 2210) 168 MG/DL TRIGLYCERIDES (test code = 2232) 99 MG/DL HDL CHOLESTEROL (test code = 2220) 52 MG/DL CALC LDL CHOL (test code = 2237) 97 MG/DL RISK RATIO LDL/HDL (test cod e = 2238) 1.87 RATIO Toney RennerHEMOGLOBIN [id number] 00:00:00* Test Item Value Reference Range Interpretation Comme nts HEMOGLOBIN A1c (test code = 80610) 11.2 % Toney RennerCBC W/AUTO [id number] 00:00:00* Test Item Value Reference Range Interpretation [...] ABS NUCLEATED RBCS (test cod e = 91802) 0.00 K/UL Toney RennerCOMPREHENSIVE METABOLIC [id number] 00:00:00* Test Item Value Reference Range Interpretation Comme nts GLUCOSE (test code = 2217) 269 MG/DL BUN (test code = 2208) 16 MG/DL CREATININE (test code = 2214) 0.58 MG/DL eGFR (2020 CKD-EPI) (test co de = 12069) 97 ML/MIN/1.73 CALC BUN/CREAT (test code = [...] code = 2219) 32 U/L Toney RennerLIPID [id number] 00:00:00* Test Item Value Reference Range Interpretation Comme nts CHOLESTEROL (test code = 2210) 225 MG/DL TRIGLYCERIDES (test code = 2232) 247 MG/DL HDL CHOLESTEROL (test code = 2220) 44 MG/DL CALC LDL CHOL (test code = 2237) 141 MG/DL RISK RATIO LDL/HDL (test cod e = 2238) 3.20 RATIO Toney RennerHEMOGLOBIN [id number] 00:00:00* Test Item Value Reference Range Interpretation Comme nts HEMOGLOBIN A1c (test code = 19986) 8.6 % Toney Cowan AustinLIPID [id number] 00:00:00* Test Item Value Reference Range Interpretation Comme nts CHOLESTEROL (test code = 2210) 225 MG/DL TRIGLYCERIDES (test code = 2232) 247 MG/DL HDL CHOLESTEROL (test code = 2220) 44 MG/DL CALC LDL CHOL (test code = 2237) 141 MG/DL RISK RATIO LDL/HDL (test cod e = 2238) 3.20 RATIO Toney Cowan AustinHEMOGLOBIN [id number] 00:00:00* Test Item Value Reference Range Interpretation Comme nts HEMOGLOBIN A1c (test code = 71489) 8.6 % Toney RennerCOMPREHENSIVE METABOLIC [id number] 00:00:00* Test Item Value Reference Range Interpretation Comme nts GLUCOSE (test code = 2217) 269 MG/DL BUN (test code = 2208) 16 MG/DL CREATININE (test code = 2214) 0.58 MG/DL eGFR (2020 CKD-EPI) (test co de = 14578) 97 ML/MIN/1.73 CALC BUN/CREAT (test code = [...] = 2219) 32 U/L Toney Cowan AustinLIPID [id number] 00:00:00* Test Item Value Reference Range Interpretation Comme nts CHOLESTEROL (test code = 2210) 225 MG/DL TRIGLYCERIDES (test code = 2232) 247 MG/DL HDL CHOLESTEROL (test code = 2220) 44 MG/DL CALC LDL CHOL (test code = 2237) 141 MG/DL RISK RATIO LDL/HDL (test cod e = 2238) 3.20 RATIO Toney eRnnerHEMOGLOBIN [id number] 00:00:00* Test Item Value Reference Range Interpretation Comme nts HEMOGLOBIN A1c (test code = 03614) 8.6 % Toney Cowan AustinCOMPREHENSIVE METABOLIC [id number] 00:00:00* Test Item Value Reference Range Interpretation Comme nts GLUCOSE (test code = 2217) 269 MG/DL BUN (test code = 2208) 16 MG/DL CREATININE (test code = 2214) 0.58 MG/DL eGFR (2020 CKD-EPI) (test co de = 58921) 97 ML/MIN/1.73 CALC BUN/CREAT (test code = [...] code = 2219) 32 U/L Toney RennerLIPID [id number] 00:00:00* Test Item Value Reference Range Interpretation Comme nts CHOLESTEROL (test code = 2210) 225 MG/DL TRIGLYCERIDES (test code = 2232) 247 MG/DL HDL CHOLESTEROL (test code = 2220) 44 MG/DL CALC LDL CHOL (test code = 2237) 141 MG/DL RISK RATIO LDL/HDL (test cod e = 2238) 3.20 RATIO Toney RennerHEMOGLOBIN [id number] 00:00:00* Test Item Value Reference Range Interpretation Comme nts HEMOGLOBIN A1c (test code = 09163) 8.6 % Toney RennerCOMPREHENSIVE METABOLIC [id number] 00:00:00* Test Item Value Reference Range Interpretation Comme nts GLUCOSE (test code = 2217) 269 MG/DL BUN (test code = 2208) 16 MG/DL CREATININE (test code = 2214) 0.58 MG/DL eGFR (2020 CKD-EPI) (test co de = 99624) 97 ML/MIN/1.73 CALC BUN/CREAT (test code = [...] code = 2219) 32 U/L Toney Cowan CordovaLIPID [id number] 00:00:00* Test Item Value Reference Range Interpretation Comme nts CHOLESTEROL (test code = 2210) 225 MG/DL TRIGLYCERIDES (test code = 2232) 247 MG/DL HDL CHOLESTEROL (test code = 2220) 44 MG/DL CALC LDL CHOL (test code = 2237) 141 MG/DL RISK RATIO LDL/HDL (test cod e = 2238) 3.20 RATIO Toney RennerHEMOGLOBIN [id number] 00:00:00* Test Item Value Reference Range Interpretation Comme nts HEMOGLOBIN A1c (test code = 29027) 8.6 % Toney RennerCOMPREHENSIVE METABOLIC [id number] 00:00:00* Test Item Value Reference Range Interpretation Comme nts GLUCOSE (test code = 2217) 269 MG/DL BUN (test code = 2208) 16 MG/DL CREATININE (test code = 2214) 0.58 MG/DL eGFR (2020 CKD-EPI) (test co de = 91352) 97 ML/MIN/1.73 CALC BUN/CREAT (test code = [...] code = 2219) 32 U/L Toney RennerLIPID [id number] 00:00:00* Test Item Value Reference Range Interpretation Comme nts CHOLESTEROL (test code = 2210) 225 MG/DL TRIGLYCERIDES (test code = 2232) 247 MG/DL HDL CHOLESTEROL (test code = 2220) 44 MG/DL CALC LDL CHOL (test code = 2237) 141 MG/DL RISK RATIO LDL/HDL (test cod e = 2238) 3.20 RATIO Toney RennerHEMOGLOBIN [id number] 00:00:00* Test Item Value Reference Range Interpretation Comme nts HEMOGLOBIN A1c (test code = 52215) 8.6 % Toney RennerCOMPREHENSIVE METABOLIC [id number] 00:00:00* Test Item Value Reference Range Interpretation Comme nts GLUCOSE (test code = 2217) 269 MG/DL BUN (test code = 2208) 16 MG/DL CREATININE (test code = 2214) 0.58 MG/DL eGFR (2020 CKD-EPI) (test co de = 50177) 97 ML/MIN/1.73 CALC BUN/CREAT (test code = [...] code = 2219) 32 U/L Toney RennerLIPID [id number] 00:00:00* Test Item Value Reference Range Interpretation Comme nts CHOLESTEROL (test code = 2210) 225 MG/DL TRIGLYCERIDES (test code = 2232) 247 MG/DL HDL CHOLESTEROL (test code = 2220) 44 MG/DL CALC LDL CHOL (test code = 2237) 141 MG/DL RISK RATIO LDL/HDL (test cod e = 2238) 3.20 RATIO Toney RennerHEMOGLOBIN [id number] 00:00:00* Test Item Value Reference Range Interpretation Comme nts HEMOGLOBIN A1c (test code = 76585) 8.6 % Toney RennerCOMPREHENSIVE METABOLIC [id number] 00:00:00* Test Item Value Reference Range Interpretation Comme nts GLUCOSE (test code = 2217) 269 MG/DL BUN (test code = 2208) 16 MG/DL CREATININE (test code = 2214) 0.58 MG/DL eGFR (2020 CKD-EPI) (test co de = 61107) 97 ML/MIN/1.73 CALC BUN/CREAT (test code = [...] code = 2219) 32 U/L Toney Cowan AustinCOMPREHENSIVE METABOLIC [id number] 00:00:00* Test Item Value Reference Range Interpretation Comme nts GLUCOSE (test code = 2217) 269 MG/DL BUN (test code = 2208) 16 MG/DL CREATININE (test code = 2214) 0.58 MG/DL eGFR (2020 CKD-EPI) (test co de = 53446) 97 ML/MIN/1.73 CALC BUN/CREAT (test code = [...] (test code = 2219) 32 U/L LIPID [id number] 00:00:00* Test Item Value Reference Range Interpretation Comme nts CHOLESTEROL (test code = 2210) 225 MG/DL TRIGLYCERIDES (test code = 2232) 247 MG/DL HDL CHOLESTEROL (test code = 2220) 44 MG/DL CALC LDL CHOL (test code = 2237) 141 MG/DL RISK RATIO LDL/HDL (test cod e = 2238) 3.20 RATIO HEMOGLOBIN [id number] 00:00:00* Test Item Value Reference Range Interpretation Comme nts HEMOGLOBIN A1c (test code = 70976) 8.6 % COMPREHENSIVE METABOLIC [id number] 00:00:00* Test Item Value Reference Range Interpretation Comme nts GLUCOSE (test code = 2217) 269 MG/DL BUN (test code = 2208) 16 MG/DL CREATININE (test code = 2214) 0.58 MG/DL eGFR (2020 CKD-EPI) (test co de = 79480) 97 ML/MIN/1.73 CALC BUN/CREAT (test code = [...] (test code = 2219) 32 U/L LIPID [id number] 00:00:00* Test Item Value Reference Range Interpretation Comme nts CHOLESTEROL (test code = 2210) 225 MG/DL TRIGLYCERIDES (test code = 2232) 247 MG/DL HDL CHOLESTEROL (test code = 2220) 44 MG/DL CALC LDL CHOL (test code = 2237) 141 MG/DL RISK RATIO LDL/HDL (test cod e = 2238) 3.20 RATIO HEMOGLOBIN [id number] 00:00:00* Test Item Value Reference Range Interpretation Comme nts HEMOGLOBIN A1c (test code = 02081) 8.6 % COMPREHENSIVE METABOLIC [id number] 00:00:00* Test Item Value Reference Range Interpretation Comme nts GLUCOSE (test code = 2217) 269 MG/DL BUN (test code = 8) 16 MG/DL CREATININE (test code = 2214) 0.58 MG/DL eGFR (2020 CKD-EPI) (test co de = 17556) 97 ML/MIN/1.73 CALC BUN/CREAT (test code = [...] (test code = 2219) 32 U/L LIPID [id number] 00:00:00* Test Item Value Reference Range Interpretation Comme nts CHOLESTEROL (test code = 2210) 225 MG/DL TRIGLYCERIDES (test code = 2232) 247 MG/DL HDL CHOLESTEROL (test code = 2220) 44 MG/DL CALC LDL CHOL (test code = 2237) 141 MG/DL RISK RATIO LDL/HDL (test cod e = 2238) 3.20 RATIO HEMOGLOBIN [id number] 00:00:00* Test Item Value Reference Range Interpretation Comme nts HEMOGLOBIN A1c (test code = 88775) 8.6 % COMPREHENSIVE METABOLIC [id number] 00:00:00* Test Item Value Reference Range Interpretation Comme nts GLUCOSE (test code = 2217) 269 MG/DL BUN (test code = 2208) 16 MG/DL CREATININE (test code = 2214) 0.58 MG/DL eGFR (2020 CKD-EPI) (test co de = 06813) 97 ML/MIN/1.73 CALC BUN/CREAT (test code = [...] (test code = 2219) 32 U/L LIPID [id number] 00:00:00* Test Item Value Reference Range Interpretation Comme nts CHOLESTEROL (test code = 2210) 225 MG/DL TRIGLYCERIDES (test code = 2232) 247 MG/DL HDL CHOLESTEROL (test code = 2220) 44 MG/DL CALC LDL CHOL (test code = 2237) 141 MG/DL RISK RATIO LDL/HDL (test cod e = 2238) 3.20 RATIO HEMOGLOBIN [id number] 00:00:00* Test Item Value Reference Range Interpretation Comme nts HEMOGLOBIN A1c (test code = 28832) 8.6 % COMPREHENSIVE METABOLIC [id number] 00:00:00* Test Item Value Reference Range Interpretation Comme nts GLUCOSE (test code = 2217) 269 MG/DL BUN (test code = 2208) 16 MG/DL CREATININE (test code = 2214) 0.58 MG/DL eGFR (2020 CKD-EPI) (test co de = 91713) 97 ML/MIN/1.73 CALC BUN/CREAT (test code = [...] (test code = 2219) 32 U/L LIPID [id number] 00:00:00* Test Item Value Reference Range Interpretation Comme nts CHOLESTEROL (test code = 2210) 225 MG/DL TRIGLYCERIDES (test code = 2232) 247 MG/DL HDL CHOLESTEROL (test code = 2220) 44 MG/DL CALC LDL CHOL (test code = 2237) 141 MG/DL RISK RATIO LDL/HDL (test cod e = 2238) 3.20 RATIO HEMOGLOBIN [id number] 00:00:00* Test Item Value Reference Range Interpretation Comme nts HEMOGLOBIN A1c (test code = 18583) 8.6 % COMPREHENSIVE METABOLIC [id number] 00:00:00* Test Item Value Reference Range Interpretation Comme nts GLUCOSE (test code = 2217) 269 MG/DL BUN (test code = 2208) 16 MG/DL CREATININE (test code = 2214) 0.58 MG/DL eGFR (2020 CKD-EPI) (test co de = 40114) 97 ML/MIN/1.73 CALC BUN/CREAT (test code = [...] (test code = 2219) 32 U/L LIPID [id number] 00:00:00* Test Item Value Reference Range Interpretation Comme nts CHOLESTEROL (test code = 2210) 225 MG/DL TRIGLYCERIDES (test code = 2232) 247 MG/DL HDL CHOLESTEROL (test code = 2220) 44 MG/DL CALC LDL CHOL (test code = 2237) 141 MG/DL RISK RATIO LDL/HDL (test cod e = 2238) 3.20 RATIO HEMOGLOBIN [id number] 00:00:00* Test Item Value Reference Range Interpretation Comme nts HEMOGLOBIN A1c (test code = 58382) 8.6 % COMPREHENSIVE METABOLIC [id number] 00:00:00* Test Item Value Reference Range Interpretation Comme nts GLUCOSE (test code = 2217) 269 MG/DL BUN (test code = 2208) 16 MG/DL CREATININE (test code = 2214) 0.58 MG/DL eGFR (2020 CKD-EPI) (test co de = 67903) 97 ML/MIN/1.73 CALC BUN/CREAT (test code = [...] (test code = 2219) 32 U/L LIPID [id number] 00:00:00* Test Item Value Reference Range Interpretation Comme nts CHOLESTEROL (test code = 2210) 225 MG/DL TRIGLYCERIDES (test code = 2232) 247 MG/DL HDL CHOLESTEROL (test code = 2220) 44 MG/DL CALC LDL CHOL (test code = 2237) 141 MG/DL RISK RATIO LDL/HDL (test cod e = 2238) 3.20 RATIO HEMOGLOBIN [id number] 00:00:00* Test Item Value Reference Range Interpretation Comme nts HEMOGLOBIN A1c (test code = 54136) 8.6 % COMPREHENSIVE METABOLIC [id number] 00:00:00* Test Item Value Reference Range Interpretation Comme nts GLUCOSE (test code = 2217) 269 MG/DL BUN (test code = 2208) 16 MG/DL CREATININE (test code = 2214) 0.58 MG/DL eGFR (2020 CKD-EPI) (test co de = 35854) 97 ML/MIN/1.73 CALC BUN/CREAT (test code = [...] (test code = 2219) 32 U/L LIPID [id number] 00:00:00* Test Item Value Reference Range Interpretation Comme nts CHOLESTEROL (test code = 2210) 225 MG/DL TRIGLYCERIDES (test code = 2232) 247 MG/DL HDL CHOLESTEROL (test code = 2220) 44 MG/DL CALC LDL CHOL (test code = 2237) 141 MG/DL RISK RATIO LDL/HDL (test cod e = 2238) 3.20 RATIO HEMOGLOBIN [id number] 00:00:00* Test Item Value Reference Range Interpretation Comme nts HEMOGLOBIN A1c (test code = 30052) 8.6 % COMPREHENSIVE METABOLIC [id number] 00:00:00* Test Item Value Reference Range Interpretation Comme nts GLUCOSE (test code = 2217) 269 MG/DL BUN (test code = 2208) 16 MG/DL CREATININE (test code = 2214) 0.58 MG/DL eGFR (2020 CKD-EPI) (test co de = 54446) 97 ML/MIN/1.73 CALC BUN/CREAT (test code = [...] (test code = 2219) 32 U/L LIPID [id number] 00:00:00* Test Item Value Reference Range Interpretation Comme nts CHOLESTEROL (test code = 2210) 225 MG/DL TRIGLYCERIDES (test code = 2232) 247 MG/DL HDL CHOLESTEROL (test code = 2220) 44 MG/DL CALC LDL CHOL (test code = 2237) 141 MG/DL RISK RATIO LDL/HDL (test cod e = 2238) 3.20 RATIO HEMOGLOBIN [id number] 00:00:00* Test Item Value Reference Range Interpretation Comme nts HEMOGLOBIN A1c (test code = 18513) 8.6 % COMPREHENSIVE METABOLIC [id number] 00:00:00* Test Item Value Reference Range Interpretation Comme nts GLUCOSE (test code = 2217) 269 MG/DL BUN (test code = 2208) 16 MG/DL CREATININE (test code = 2214) 0.58 MG/DL eGFR (2020 CKD-EPI) (test co de = 39838) 97 ML/MIN/1.73 CALC BUN/CREAT (test code = [...] (test code = 2219) 32 U/L Toney F AustinLIPID [id number] 00:00:00* Test Item Value Reference Range Interpretation Comme nts CHOLESTEROL (test code = 2210) 225 MG/DL TRIGLYCERIDES (test code = 2232) 247 MG/DL HDL CHOLESTEROL (test code = 2220) 44 MG/DL CALC LDL CHOL (test code = 2237) 141 MG/DL RISK RATIO LDL/HDL (test cod e = 2238) 3.20 RATIO Toney RennerHEMOGLOBIN [id number] 00:00:00* Test Item Value Reference Range Interpretation Comme nts HEMOGLOBIN A1c (test code = 31740) 8.6 % Toney RennerCOMPREHENSIVE METABOLIC [id number] 00:00:00* Test Item Value Reference Range Interpretation Comme nts GLUCOSE (test code = 2217) 136 MG/DL BUN (test code = 2208) 16 MG/DL CREATININE (test code = 2214) 0.55 MG/DL eGFR AMER. (test cod e = 35558) 111 ML/MIN/1.73 eGFR NON- AMER. (test code = 88645) 96 ML/MIN/1.73 CALC BUN/CREAT (test code = [...] code = 2219) 25 U/L Toney RennerLIPID [id number] 00:00:00* Test Item Value Reference Range Interpretation Comme nts CHOLESTEROL (test code = 2210) 146 MG/DL TRIGLYCERIDES (test code = 2232) 60 MG/DL HDL CHOLESTEROL (test code = 2220) 47 MG/DL CALC LDL CHOL (test code = 2237) 85 MG/DL RISK RATIO LDL/HDL (test cod e = 2238) 1.81 RATIO Toney RennerHEMOGLOBIN [id number] 00:00:00* Test Item Value Reference Range Interpretation Comme nts HEMOGLOBIN A1c (test code = 67778) 7.9 % Toney F AustinLIPID [id number] 00:00:00* Test Item Value Reference Range Interpretation Comme nts CHOLESTEROL (test code = 2210) 146 MG/DL TRIGLYCERIDES (test code = 2232) 60 MG/DL HDL CHOLESTEROL (test code = 2220) 47 MG/DL CALC LDL CHOL (test code = 2237) 85 MG/DL RISK RATIO LDL/HDL (test cod e = 2238) 1.81 RATIO Toney RennerHEMOGLOBIN [id number] 00:00:00* Test Item Value Reference Range Interpretation Comme nts HEMOGLOBIN A1c (test code = 84689) 7.9 % Toney RennerCOMPREHENSIVE METABOLIC [id number] 00:00:00* Test Item Value Reference Range Interpretation Comme nts GLUCOSE (test code = 2217) 136 MG/DL BUN (test code = 2208) 16 MG/DL CREATININE (test code = 2214) 0.55 MG/DL eGFR AMER. (test cod e = 84883) 111 ML/MIN/1.73 eGFR NON- AMER. (test code = 91736) 96 ML/MIN/1.73 CALC BUN/CREAT (test code = [...] code = 2219) 25 U/L Toney RennerLIPID [id number] 00:00:00* Test Item Value Reference Range Interpretation Comme nts CHOLESTEROL (test code = 2210) 146 MG/DL TRIGLYCERIDES (test code = 2232) 60 MG/DL HDL CHOLESTEROL (test code = 2220) 47 MG/DL CALC LDL CHOL (test code = 2237) 85 MG/DL RISK RATIO LDL/HDL (test cod e = 2238) 1.81 RATIO Toney RennerHEMOGLOBIN [id number] 00:00:00* Test Item Value Reference Range Interpretation Comme nts HEMOGLOBIN A1c (test code = 87793) 7.9 % Toney RennerCOMPREHENSIVE METABOLIC [id number] 00:00:00* Test Item Value Reference Range Interpretation Comme nts GLUCOSE (test code = 2217) 136 MG/DL BUN (test code = 2208) 16 MG/DL CREATININE (test code = 2214) 0.55 MG/DL eGFR AMER. (test cod e = 67164) 111 ML/MIN/1.73 eGFR NON- AMER. (test code = 84778) 96 ML/MIN/1.73 CALC BUN/CREAT (test code = [...] = 2219) 25 U/L Toney Cowan AustinLIPID [id number] 00:00:00* Test Item Value Reference Range Interpretation Comme nts CHOLESTEROL (test code = 2210) 146 MG/DL TRIGLYCERIDES (test code = 2232) 60 MG/DL HDL CHOLESTEROL (test code = 2220) 47 MG/DL CALC LDL CHOL (test code = 2237) 85 MG/DL RISK RATIO LDL/HDL (test cod e = 2238) 1.81 RATIO Toney RennerHEMOGLOBIN [id number] 00:00:00* Test Item Value Reference Range Interpretation Comme nts HEMOGLOBIN A1c (test code = 35225) 7.9 % Toney RennerCOMPREHENSIVE METABOLIC [id number] 00:00:00* Test Item Value Reference Range Interpretation Comme nts GLUCOSE (test code = 2217) 136 MG/DL BUN (test code = 2208) 16 MG/DL CREATININE (test code = 2214) 0.55 MG/DL eGFR AMER. (test cod e = 00673) 111 ML/MIN/1.73 eGFR NON- AMER. (test code = 76932) 96 ML/MIN/1.73 CALC BUN/CREAT (test code = [...] code = 2219) 25 U/L Toney RennerLIPID [id number] 00:00:00* Test Item Value Reference Range Interpretation Comme nts CHOLESTEROL (test code = 2210) 146 MG/DL TRIGLYCERIDES (test code = 2232) 60 MG/DL HDL CHOLESTEROL (test code = 2220) 47 MG/DL CALC LDL CHOL (test code = 2237) 85 MG/DL RISK RATIO LDL/HDL (test cod e = 2238) 1.81 RATIO Toney RennerHEMOGLOBIN [id number] 00:00:00* Test Item Value Reference Range Interpretation Comme nts HEMOGLOBIN A1c (test code = 09476) 7.9 % Toney RennerCOMPREHENSIVE METABOLIC [id number] 00:00:00* Test Item Value Reference Range Interpretation Comme nts GLUCOSE (test code = 2217) 136 MG/DL BUN (test code = 2208) 16 MG/DL CREATININE (test code = 2214) 0.55 MG/DL eGFR AMER. (test cod e = 77664) 111 ML/MIN/1.73 eGFR NON- AMER. (test code = 27554) 96 ML/MIN/1.73 CALC BUN/CREAT (test code = [...] code = 2219) 25 U/L Toney RennerLIPID [id number] 00:00:00* Test Item Value Reference Range Interpretation Comme nts CHOLESTEROL (test code = 2210) 146 MG/DL TRIGLYCERIDES (test code = 2232) 60 MG/DL HDL CHOLESTEROL (test code = 2220) 47 MG/DL CALC LDL CHOL (test code = 2237) 85 MG/DL RISK RATIO LDL/HDL (test cod e = 2238) 1.81 RATIO Toney RennerHEMOGLOBIN [id number] 00:00:00* Test Item Value Reference Range Interpretation Comme nts HEMOGLOBIN A1c (test code = 12417) 7.9 % Toney RennerCOMPREHENSIVE METABOLIC [id number] 00:00:00* Test Item Value Reference Range Interpretation Comme nts GLUCOSE (test code = 7) 136 MG/DL BUN (test code = 2208) 16 MG/DL CREATININE (test code = 2214) 0.55 MG/DL eGFR AMER. (test cod e = 21002) 111 ML/MIN/1.73 eGFR NON- AMER. (test code = 22161) 96 ML/MIN/1.73 CALC BUN/CREAT (test code = [...] code = 2219) 25 U/L Toney Cowan [place] [id number] 00:00:00* Test Item Value Reference Range Interpretation Comme nts CHOLESTEROL (test code = 2210) 146 MG/DL TRIGLYCERIDES (test code = 2232) 60 MG/DL HDL CHOLESTEROL (test code = 2220) 47 MG/DL CALC LDL CHOL (test code = 2237) 85 MG/DL RISK RATIO LDL/HDL (test cod e = 2238) 1.81 RATIO Toney RennerHEMOGLOBIN [id number] 00:00:00* Test Item Value Reference Range Interpretation Comme nts HEMOGLOBIN A1c (test code = 68376) 7.9 % Toney Cowan CordovaCOMPREHENSIVE METABOLIC [id number] 00:00:00* Test Item Value Reference Range Interpretation Comme nts GLUCOSE (test code = 2217) 136 MG/DL BUN (test code = 2208) 16 MG/DL CREATININE (test code = 2214) 0.55 MG/DL eGFR AMER. (test cod e = 61133) 111 ML/MIN/1.73 eGFR NON- AMER. (test code = 19510) 96 ML/MIN/1.73 CALC BUN/CREAT (test code = [...] 0.6 MG/DL ALKALINE PHOSPHATASE (test code = 220) 101 U/L AST (test code = 221) 26 U/L ALT (test code = 2219) 25 U/L LIPID [id number] 00:00:00* Test Item Value Reference Range Interpretation Comme nts CHOLESTEROL (test code = 2210) 146 MG/DL TRIGLYCERIDES (test code = 2232) 60 MG/DL HDL CHOLESTEROL (test code = 0) 47 MG/DL CALC LDL CHOL (test code = 2236) 85 MG/DL RISK RATIO LDL/HDL (test cod e = 2238) 1.81 RATIO HEMOGLOBIN [id number] 00:00:00* Test Item Value Reference Range Interpretation Comme nts HEMOGLOBIN A1c (test code = 57189) 7.9 % COMPREHENSIVE METABOLIC [id number] 00:00:00* Test Item Value Reference Range Interpretation Comme nts GLUCOSE (test code = 7) 136 MG/DL BUN (test code = 2207) 16 MG/DL CREATININE (test code = 2214) 0.55 MG/DL eGFR AMER. (test cod e = 25377) 111 ML/MIN/1.73 eGFR NON- AMER. (test code = 92922) 96 ML/MIN/1.73 CALC BUN/CREAT (test code = [...] (test code = 2219) 25 U/L LIPID [id number] 00:00:00* Test Item Value Reference Range Interpretation Comme nts CHOLESTEROL (test code = 2210) 146 MG/DL TRIGLYCERIDES (test code = 2232) 60 MG/DL HDL CHOLESTEROL (test code = 2220) 47 MG/DL CALC LDL CHOL (test code = 2237) 85 MG/DL RISK RATIO LDL/HDL (test cod e = 2238) 1.81 RATIO HEMOGLOBIN [id number] 00:00:00* Test Item Value Reference Range Interpretation Comme nts HEMOGLOBIN A1c (test code = 06269) 7.9 % COMPREHENSIVE METABOLIC [id number] 00:00:00* Test Item Value Reference Range Interpretation Comme nts GLUCOSE (test code = 2217) 136 MG/DL BUN (test code = 2208) 16 MG/DL CREATININE (test code = 2214) 0.55 MG/DL eGFR AMER. (test cod e = 88589) 111 ML/MIN/1.73 eGFR NON- AMER. (test code = 75685) 96 ML/MIN/1.73 CALC BUN/CREAT (test code = [...] (test code = 2219) 25 U/L LIPID [id number] 00:00:00* Test Item Value Reference Range Interpretation Comme nts CHOLESTEROL (test code = 2210) 146 MG/DL TRIGLYCERIDES (test code = 2232) 60 MG/DL HDL CHOLESTEROL (test code = 2220) 47 MG/DL CALC LDL CHOL (test code = 2237) 85 MG/DL RISK RATIO LDL/HDL (test cod e = 2238) 1.81 RATIO HEMOGLOBIN [id number] 00:00:00* Test Item Value Reference Range Interpretation Comme nts HEMOGLOBIN A1c (test code = 41906) 7.9 % COMPREHENSIVE METABOLIC [id number] 00:00:00* Test Item Value Reference Range Interpretation Comme nts GLUCOSE (test code = 2217) 136 MG/DL BUN (test code = 2208) 16 MG/DL CREATININE (test code = 2214) 0.55 MG/DL eGFR AMER. (test cod e = 33211) 111 ML/MIN/1.73 eGFR NON- AMER. (test code = 34655) 96 ML/MIN/1.73 CALC BUN/CREAT (test code = [...] code = 2219) 25 U/L COMPREHENSIVE METABOLIC [id number] 00:00:00* Test Item Value Reference Range Interpretation Comme nts GLUCOSE (test code = 2217) 136 MG/DL BUN (test code = 2208) 16 MG/DL CREATININE (test code = 2214) 0.55 MG/DL eGFR AMER. (test cod e = 39078) 111 ML/MIN/1.73 eGFR NON- AMER. (test code = 35829) 96 ML/MIN/1.73 CALC BUN/CREAT (test code = [...] (test code = 2219) 25 U/L LIPID [id number] 00:00:00* Test Item Value Reference Range Interpretation Comme nts CHOLESTEROL (test code = 2210) 146 MG/DL TRIGLYCERIDES (test code = 2232) 60 MG/DL HDL CHOLESTEROL (test code = 2220) 47 MG/DL CALC LDL CHOL (test code = 2237) 85 MG/DL RISK RATIO LDL/HDL (test cod e = 2238) 1.81 RATIO HEMOGLOBIN [id number] 00:00:00* Test Item Value Reference Range Interpretation Comme nts HEMOGLOBIN A1c (test code = 53199) 7.9 % LIPID [id number] 00:00:00* Test Item Value Reference Range Interpretation Comme nts CHOLESTEROL (test code = 2210) 146 MG/DL TRIGLYCERIDES (test code = 2232) 60 MG/DL HDL CHOLESTEROL (test code = 2220) 47 MG/DL CALC LDL CHOL (test code = 2237) 85 MG/DL RISK RATIO LDL/HDL (test cod e = 2238) 1.81 RATIO HEMOGLOBIN [id number] 00:00:00* Test Item Value Reference Range Interpretation Comme nts HEMOGLOBIN A1c (test code = 72578) 7.9 % COMPREHENSIVE METABOLIC [id number] 00:00:00* Test Item Value Reference Range Interpretation Comme nts GLUCOSE (test code = 2217) 136 MG/DL BUN (test code = 2208) 16 MG/DL CREATININE (test code = 2214) 0.55 MG/DL eGFR AMER. (test cod e = 83989) 111 ML/MIN/1.73 eGFR NON- AMER. (test code = 51591) 96 ML/MIN/1.73 CALC BUN/CREAT (test code = [...] (test code = 2219) 25 U/L LIPID [id number] 00:00:00* Test Item Value Reference Range Interpretation Comme nts CHOLESTEROL (test code = 2210) 146 MG/DL TRIGLYCERIDES (test code = 2232) 60 MG/DL HDL CHOLESTEROL (test code = 2220) 47 MG/DL CALC LDL CHOL (test code = 2237) 85 MG/DL RISK RATIO LDL/HDL (test cod e = 2238) 1.81 RATIO HEMOGLOBIN [id number] 00:00:00* Test Item Value Reference Range Interpretation Comme nts HEMOGLOBIN A1c (test code = 43862) 7.9 % COMPREHENSIVE METABOLIC [id number] 00:00:00* Test Item Value Reference Range Interpretation Comme nts GLUCOSE (test code = 2217) 136 MG/DL BUN (test code = 2208) 16 MG/DL CREATININE (test code = 2214) 0.55 MG/DL eGFR AMER. (test cod e = 91479) 111 ML/MIN/1.73 eGFR NON- AMER. (test code = 72081) 96 ML/MIN/1.73 CALC BUN/CREAT (test code = [...] RATIO BILIRUBIN, TOTAL (test code = 220) 0.6 MG/DL ALKALINE PHOSPHATASE (test code = 2204) 101 U/L AST (test code = 2218) 26 U/L ALT (test code = 2219) 25 U/L LIPID [id number] 00:00:00* Test Item Value Reference Range Interpretation Comme nts CHOLESTEROL (test code = 2210) 146 MG/DL TRIGLYCERIDES (test code = 2232) 60 MG/DL HDL CHOLESTEROL (test code = 2220) 47 MG/DL CALC LDL CHOL (test code = 2237) 85 MG/DL RISK RATIO LDL/HDL (test cod e = 2238) 1.81 RATIO HEMOGLOBIN [id number] 00:00:00* Test Item Value Reference Range Interpretation Comme nts HEMOGLOBIN A1c (test code = 79796) 7.9 % COMPREHENSIVE METABOLIC [id number] 00:00:00* Test Item Value Reference Range Interpretation Comme nts GLUCOSE (test code = 2217) 136 MG/DL BUN (test code = 2208) 16 MG/DL CREATININE (test code = 2214) 0.55 MG/DL eGFR AMER. (test cod e = 80419) 111 ML/MIN/1.73 eGFR NON- AMER. (test code = 78503) 96 ML/MIN/1.73 CALC BUN/CREAT (test code = 2235) 29 RATIO SODIUM (test code = 2231) 143 MEQ/L POTASSIUM (test code = 2228) 4.3 MEQ/L CHLORIDE (test code = 2215) 104 MEQ/L CARBON DIOXIDE (test code = 2206) 25 MEQ/L CALCIUM (test code = 2208) 9.7 MG/DL PROTEIN, TOTAL (test code = 2229) 7.6 G/DL ALBUMIN (test code = 2201) 4.4 G/DL CALC GLOBULIN (test code = 2240) 3.2 G/DL CALC A/G RATIO (test code = 2234) 1.4 RATIO BILIRUBIN, TOTAL (test code = 7) 0.6 MG/DL ALKALINE PHOSPHATASE (test code = 2203) 101 U/L AST (test code = 221) 26 U/L ALT (test code = 2219) 25 U/L LIPID [id number] 00:00:00* Test Item Value Reference Range Interpretation Comme nts CHOLESTEROL (test code = 0) 146 MG/DL TRIGLYCERIDES (test code = 2232) 60 MG/DL HDL CHOLESTEROL (test code = 2220) 47 MG/DL CALC LDL CHOL (test code = 2237) 85 MG/DL RISK RATIO LDL/HDL (test cod e = 2237) 1.81 RATIO HEMOGLOBIN [id number] 00:00:00* Test Item Value Reference Range Interpretation Comme nts HEMOGLOBIN A1c (test code = 47668) 7.9 % COMPREHENSIVE METABOLIC [id number] 00:00:00* Test Item Value Reference Range Interpretation Comme nts GLUCOSE (test code = 2216) 136 MG/DL BUN (test code = 2207) 16 MG/DL CREATININE (test code = 2214) 0.55 MG/DL eGFR AMER. (test cod e = 32287) 111 ML/MIN/1.73 eGFR NON- AMER. (test code = 49030) 96 ML/MIN/1.73 CALC BUN/CREAT (test code = 2235) 29 RATIO SODIUM (test code = 2231) 143 MEQ/L POTASSIUM (test code = 2228) 4.3 MEQ/L CHLORIDE (test code = 2215) 104 MEQ/L CARBON DIOXIDE (test code = 6) 25 MEQ/L CALCIUM (test code = 9) 9.7 MG/DL PROTEIN, TOTAL (test code = [...] (test code = 2219) 25 U/L LIPID [id number] 00:00:00* Test Item Value Reference Range Interpretation Comme nts CHOLESTEROL (test code = 2210) 146 MG/DL TRIGLYCERIDES (test code = 2232) 60 MG/DL HDL CHOLESTEROL (test code = 2220) 47 MG/DL CALC LDL CHOL (test code = 2237) 85 MG/DL RISK RATIO LDL/HDL (test cod e = 2238) 1.81 RATIO HEMOGLOBIN [id number] 00:00:00* Test Item Value Reference Range Interpretation Comme nts HEMOGLOBIN A1c (test code = 98290) 7.9 % COMPREHENSIVE METABOLIC [id number] 00:00:00* Test Item Value Reference Range Interpretation Comme nts GLUCOSE (test code = 2217) 136 MG/DL BUN (test code = 2208) 16 MG/DL CREATININE (test code = 2214) 0.55 MG/DL eGFR AMER. (test cod e = 38264) 111 ML/MIN/1.73 eGFR NON- AMER. (test code = 34784) 96 ML/MIN/1.73 CALC BUN/CREAT (test code = [...] = 2219) 25 U/L Toney F AustinLIPID [id number] 00:00:00* Test Item Value Reference Range Interpretation Comme nts CHOLESTEROL (test code = 2210) 146 MG/DL TRIGLYCERIDES (test code = 2232) 60 MG/DL HDL CHOLESTEROL (test code = 2220) 47 MG/DL CALC LDL CHOL (test code = 2237) 85 MG/DL RISK RATIO LDL/HDL (test cod e = 2238) 1.81 RATIO Toney Cowan AustinHEMOGLOBIN [id number] 00:00:00* Test Item Value Reference Range Interpretation Comme nts HEMOGLOBIN A1c (test code = 47804) 7.9 % Toney Cowan AustinCOMPREHENSIVE METABOLIC [id number] 00:00:00* Test Item Value Reference Range Interpretation Comme nts GLUCOSE (test code = 2217) 136 MG/DL BUN (test code = 2208) 16 MG/DL CREATININE (test code = 2214) 0.55 MG/DL eGFR AMER. (test cod e = 21612) 111 ML/MIN/1.73 eGFR NON- AMER. (test code = 78092) 96 ML/MIN/1.73 CALC BUN/CREAT (test code = [...] code = 2219) 25 U/L Toney Cowan AustinHEMOGLOBIN [id number] 00:00:00* Test Item Value Reference Range Interpretation Comme nts HEMOGLOBIN A1c (test code = 09875) 7.8 % Toney Cowan AustinCOMPREHENSIVE METABOLIC [id number] 00:00:00* Test Item Value Reference Range Interpretation Comme nts GLUCOSE (test code = 2217) 123 MG/DL BUN (test code = 2208) 17 MG/DL CREATININE (test code = 2214) 0.59 MG/DL eGFR AMER. (test cod e = 66802) 108 ML/MIN/1.73 eGFR NON- AMER. (test code = 58139) 94 ML/MIN/1.73 CALC BUN/CREAT (test code = [...] code = 2219) 17 U/L Toney F CordovaCOMPREHENSIVE METABOLIC [id number] 00:00:00* Test Item Value Reference Range Interpretation Comme nts GLUCOSE (test code = 2217) 123 MG/DL BUN (test code = 2208) 17 MG/DL CREATININE (test code = 2214) 0.59 MG/DL eGFR AMER. (test cod e = 45786) 108 ML/MIN/1.73 eGFR NON- AMER. (test code = 24358) 94 ML/MIN/1.73 CALC BUN/CREAT (test code = [...] code = 2219) 17 U/L Toney RennerLIPID [id number] 00:00:00* Test Item Value Reference Range Interpretation Comme nts CHOLESTEROL (test code = 2210) 236 MG/DL TRIGLYCERIDES (test code = 2232) 219 MG/DL HDL CHOLESTEROL (test code = 2220) 52 MG/DL CALC LDL CHOL (test code = 2237) 148 MG/DL RISK RATIO LDL/HDL (test cod e = 2238) 2.85 RATIO Toney RennerLIPID [id number] 00:00:00* Test Item Value Reference Range Interpretation Comme nts CHOLESTEROL (test code = 2210) 236 MG/DL TRIGLYCERIDES (test code = 2232) 219 MG/DL HDL CHOLESTEROL (test code = 2220) 52 MG/DL CALC LDL CHOL (test code = 2237) 148 MG/DL RISK RATIO LDL/HDL (test cod e = 2238) 2.85 RATIO Toney RennerHEMOGLOBIN [id number] 00:00:00* Test Item Value Reference Range Interpretation Comme nts HEMOGLOBIN A1c (test code = 72648) 7.8 % Toney RennerCOMPREHENSIVE METABOLIC [id number] 00:00:00* Test Item Value Reference Range Interpretation Comme nts GLUCOSE (test code = 2217) 123 MG/DL BUN (test code = 2208) 17 MG/DL CREATININE (test code = 2214) 0.59 MG/DL eGFR AMER. (test cod e = 27759) 108 ML/MIN/1.73 eGFR NON- AMER. (test code = 92096) 94 ML/MIN/1.73 CALC BUN/CREAT (test code = [...] code = 2219) 17 U/L Toney RennerLIPID [id number] 00:00:00* Test Item Value Reference Range Interpretation Comme nts CHOLESTEROL (test code = 2210) 236 MG/DL TRIGLYCERIDES (test code = 2232) 219 MG/DL HDL CHOLESTEROL (test code = 2220) 52 MG/DL CALC LDL CHOL (test code = 2237) 148 MG/DL RISK RATIO LDL/HDL (test cod e = 2238) 2.85 RATIO Toney RennerHEMOGLOBIN [id number] 00:00:00* Test Item Value Reference Range Interpretation Comme nts HEMOGLOBIN A1c (test code = 93716) 7.8 % Toney RennerCOMPREHENSIVE METABOLIC [id number] 00:00:00* Test Item Value Reference Range Interpretation Comme nts GLUCOSE (test code = 2217) 123 MG/DL BUN (test code = 2208) 17 MG/DL CREATININE (test code = 2214) 0.59 MG/DL eGFR AMER. (test cod e = 30357) 108 ML/MIN/1.73 eGFR NON- AMER. (test code = 25492) 94 ML/MIN/1.73 CALC BUN/CREAT (test code = [...] code = 2219) 17 U/L Toney RennerLIPID [id number] 00:00:00* Test Item Value Reference Range Interpretation Comme nts CHOLESTEROL (test code = 2210) 236 MG/DL TRIGLYCERIDES (test code = 2232) 219 MG/DL HDL CHOLESTEROL (test code = 2220) 52 MG/DL CALC LDL CHOL (test code = 2237) 148 MG/DL RISK RATIO LDL/HDL (test cod e = 2238) 2.85 RATIO Toney RennerHEMOGLOBIN [id number] 00:00:00* Test Item Value Reference Range Interpretation Comme nts HEMOGLOBIN A1c (test code = 00620) 7.8 % Toney RennerCOMPREHENSIVE METABOLIC [id number] 00:00:00* Test Item Value Reference Range Interpretation Comme nts GLUCOSE (test code = 2217) 123 MG/DL BUN (test code = 2208) 17 MG/DL CREATININE (test code = 2214) 0.59 MG/DL eGFR AMER. (test cod e = 31030) 108 ML/MIN/1.73 eGFR NON- AMER. (test code = 72913) 94 ML/MIN/1.73 CALC BUN/CREAT (test code = [...] code = 2219) 17 U/L Toney RennerLIPID [id number] 00:00:00* Test Item Value Reference Range Interpretation Comme nts CHOLESTEROL (test code = 2210) 236 MG/DL TRIGLYCERIDES (test code = 2232) 219 MG/DL HDL CHOLESTEROL (test code = 2220) 52 MG/DL CALC LDL CHOL (test code = 2237) 148 MG/DL RISK RATIO LDL/HDL (test cod e = 2238) 2.85 RATIO Toney RennerHEMOGLOBIN [id number] 00:00:00* Test Item Value Reference Range Interpretation Comme nts HEMOGLOBIN A1c (test code = 41240) 7.8 % Toney RennerCOMPREHENSIVE METABOLIC [id number] 00:00:00* Test Item Value Reference Range Interpretation Comme nts GLUCOSE (test code = 2217) 123 MG/DL BUN (test code = 2208) 17 MG/DL CREATININE (test code = 2214) 0.59 MG/DL eGFR AMER. (test cod e = 73249) 108 ML/MIN/1.73 eGFR NON- AMER. (test code = 88785) 94 ML/MIN/1.73 CALC BUN/CREAT (test code = [...] code = 2219) 17 U/L Toney RennerLIPID [id number] 00:00:00* Test Item Value Reference Range Interpretation Comme nts CHOLESTEROL (test code = 2210) 236 MG/DL TRIGLYCERIDES (test code = 2232) 219 MG/DL HDL CHOLESTEROL (test code = 2220) 52 MG/DL CALC LDL CHOL (test code = 2237) 148 MG/DL RISK RATIO LDL/HDL (test cod e = 2238) 2.85 RATIO Toney RennerHEMOGLOBIN [id number] 00:00:00* Test Item Value Reference Range Interpretation Comme nts HEMOGLOBIN A1c (test code = 49874) 7.8 % Toney RennerCOMPREHENSIVE METABOLIC [id number] 00:00:00* Test Item Value Reference Range Interpretation Comme nts GLUCOSE (test code = 2217) 123 MG/DL BUN (test code = 2208) 17 MG/DL CREATININE (test code = 2214) 0.59 MG/DL eGFR AMER. (test cod e = 64924) 108 ML/MIN/1.73 eGFR NON- AMER. (test code = 92335) 94 ML/MIN/1.73 CALC BUN/CREAT (test code = [...] = 2219) 17 U/L Toney Cowan AustinLIPID [id number] 00:00:00* Test Item Value Reference Range Interpretation Comme nts CHOLESTEROL (test code = 2210) 236 MG/DL TRIGLYCERIDES (test code = 2232) 219 MG/DL HDL CHOLESTEROL (test code = 2220) 52 MG/DL CALC LDL CHOL (test code = 2237) 148 MG/DL RISK RATIO LDL/HDL (test cod e = 2238) 2.85 RATIO Toney RennerHEMOGLOBIN [id number] 00:00:00* Test Item Value Reference Range Interpretation Comme nts HEMOGLOBIN A1c (test code = 96416) 7.8 % Toney Cowan AustinHEMOGLOBIN [id number] 00:00:00* Test Item Value Reference Range Interpretation Comme nts HEMOGLOBIN A1c (test code = 13256) 7.8 % COMPREHENSIVE METABOLIC [id number] 00:00:00* Test Item Value Reference Range Interpretation Comme nts GLUCOSE (test code = 2217) 123 MG/DL BUN (test code = 2208) 17 MG/DL CREATININE (test code = 2214) 0.59 MG/DL eGFR AMER. (test cod e = 38831) 108 ML/MIN/1.73 eGFR NON- AMER. (test code = 51039) 94 ML/MIN/1.73 CALC BUN/CREAT (test code = [...] (test code = 2219) 17 U/L LIPID [id number] 00:00:00* Test Item Value Reference Range Interpretation Comme nts CHOLESTEROL (test code = 2210) 236 MG/DL TRIGLYCERIDES (test code = 2232) 219 MG/DL HDL CHOLESTEROL (test code = 2220) 52 MG/DL CALC LDL CHOL (test code = 2237) 148 MG/DL RISK RATIO LDL/HDL (test cod e = 2238) 2.85 RATIO HEMOGLOBIN [id number] 00:00:00* Test Item Value Reference Range Interpretation Comme nts HEMOGLOBIN A1c (test code = 42752) 7.8 % COMPREHENSIVE METABOLIC [id number] 00:00:00* Test Item Value Reference Range Interpretation Comme nts GLUCOSE (test code = 2217) 123 MG/DL BUN (test code = 2208) 17 MG/DL CREATININE (test code = 2214) 0.59 MG/DL eGFR AMER. (test cod e = 34344) 108 ML/MIN/1.73 eGFR NON- AMER. (test code = 93078) 94 ML/MIN/1.73 CALC BUN/CREAT (test code = [...] (test code = 2219) 17 U/L LIPID [id number] 00:00:00* Test Item Value Reference Range Interpretation Comme nts CHOLESTEROL (test code = 2210) 236 MG/DL TRIGLYCERIDES (test code = 2232) 219 MG/DL HDL CHOLESTEROL (test code = 2220) 52 MG/DL CALC LDL CHOL (test code = 2237) 148 MG/DL RISK RATIO LDL/HDL (test cod e = 2238) 2.85 RATIO HEMOGLOBIN [id number] 00:00:00* Test Item Value Reference Range Interpretation Comme nts HEMOGLOBIN A1c (test code = 35541) 7.8 % COMPREHENSIVE METABOLIC [id number] 00:00:00* Test Item Value Reference Range Interpretation Comme nts GLUCOSE (test code = 2217) 123 MG/DL BUN (test code = 2208) 17 MG/DL CREATININE (test code = 2214) 0.59 MG/DL eGFR AMER. (test cod e = 08517) 108 ML/MIN/1.73 eGFR NON- AMER. (test code = 14015) 94 ML/MIN/1.73 CALC BUN/CREAT (test code = [...] (test code = 2219) 17 U/L LIPID [id number] 00:00:00* Test Item Value Reference Range Interpretation Comme nts CHOLESTEROL (test code = 2210) 236 MG/DL TRIGLYCERIDES (test code = 2232) 219 MG/DL HDL CHOLESTEROL (test code = 2220) 52 MG/DL CALC LDL CHOL (test code = 2237) 148 MG/DL RISK RATIO LDL/HDL (test cod e = 2238) 2.85 RATIO HEMOGLOBIN [id number] 00:00:00* Test Item Value Reference Range Interpretation Comme nts HEMOGLOBIN A1c (test code = 03879) 7.8 % HEMOGLOBIN [id number] 00:00:00* Test Item Value Reference Range Interpretation Comme nts HEMOGLOBIN A1c (test code = 83610) 7.8 % COMPREHENSIVE METABOLIC [id number] 00:00:00* Test Item Value Reference Range Interpretation Comme nts GLUCOSE (test code = 2217) 123 MG/DL BUN (test code = 2208) 17 MG/DL CREATININE (test code = 2214) 0.59 MG/DL eGFR AMER. (test cod e = 08110) 108 ML/MIN/1.73 eGFR NON- AMER. (test code = 35999) 94 ML/MIN/1.73 CALC BUN/CREAT (test code = [...] (test code = 2219) 17 U/L LIPID [id number] 00:00:00* Test Item Value Reference Range Interpretation Comme nts CHOLESTEROL (test code = 2210) 236 MG/DL TRIGLYCERIDES (test code = 2232) 219 MG/DL HDL CHOLESTEROL (test code = 2220) 52 MG/DL CALC LDL CHOL (test code = 2237) 148 MG/DL RISK RATIO LDL/HDL (test cod e = 2238) 2.85 RATIO COMPREHENSIVE METABOLIC [id number] 00:00:00* Test Item Value Reference Range Interpretation Comme nts GLUCOSE (test code = 2217) 123 MG/DL BUN (test code = 2208) 17 MG/DL CREATININE (test code = 2214) 0.59 MG/DL eGFR AMER. (test cod e = 48714) 108 ML/MIN/1.73 eGFR NON- AMER. (test code = 96272) 94 ML/MIN/1.73 CALC BUN/CREAT (test code = [...] (test code = 2219) 17 U/L HEMOGLOBIN [id number] 00:00:00* Test Item Value Reference Range Interpretation Comme nts HEMOGLOBIN A1c (test code = 87620) 7.8 % LIPID [id number] 00:00:00* Test Item Value Reference Range Interpretation Comme nts CHOLESTEROL (test code = 2210) 236 MG/DL TRIGLYCERIDES (test code = 2232) 219 MG/DL HDL CHOLESTEROL (test code = 2220) 52 MG/DL CALC LDL CHOL (test code = 2237) 148 MG/DL RISK RATIO LDL/HDL (test cod e = 2238) 2.85 RATIO COMPREHENSIVE METABOLIC [id number] 00:00:00* Test Item Value Reference Range Interpretation Comme nts GLUCOSE (test code = 2217) 123 MG/DL BUN (test code = 2208) 17 MG/DL CREATININE (test code = 2214) 0.59 MG/DL eGFR AMER. (test cod e = 12850) 108 ML/MIN/1.73 eGFR NON- AMER. (test code = 66266) 94 ML/MIN/1.73 CALC BUN/CREAT (test code = [...] (test code = 2219) 17 U/L LIPID [id number] 00:00:00* Test Item Value Reference Range Interpretation Comme nts CHOLESTEROL (test code = 2210) 236 MG/DL TRIGLYCERIDES (test code = 2232) 219 MG/DL HDL CHOLESTEROL (test code = 2220) 52 MG/DL CALC LDL CHOL (test code = 2237) 148 MG/DL RISK RATIO LDL/HDL (test cod e = 2238) 2.85 RATIO HEMOGLOBIN [id number] 00:00:00* Test Item Value Reference Range Interpretation Comme nts HEMOGLOBIN A1c (test code = 32186) 7.8 % COMPREHENSIVE METABOLIC [id number] 00:00:00* Test Item Value Reference Range Interpretation Comme nts GLUCOSE (test code = 2217) 123 MG/DL BUN (test code = 2208) 17 MG/DL CREATININE (test code = 2214) 0.59 MG/DL eGFR AMER. (test cod e = 00707) 108 ML/MIN/1.73 eGFR NON- AMER. (test code = 52678) 94 ML/MIN/1.73 CALC BUN/CREAT (test code = [...] (test code = 2219) 17 U/L LIPID [id number] 00:00:00* Test Item Value Reference Range Interpretation Comme nts CHOLESTEROL (test code = 2210) 236 MG/DL TRIGLYCERIDES (test code = 2232) 219 MG/DL HDL CHOLESTEROL (test code = 2220) 52 MG/DL CALC LDL CHOL (test code = 2237) 148 MG/DL RISK RATIO LDL/HDL (test cod e = 2238) 2.85 RATIO HEMOGLOBIN [id number] 00:00:00* Test Item Value Reference Range Interpretation Comme nts HEMOGLOBIN A1c (test code = 41241) 7.8 % COMPREHENSIVE METABOLIC [id number] 00:00:00* Test Item Value Reference Range Interpretation Comme nts GLUCOSE (test code = 2217) 123 MG/DL BUN (test code = 2208) 17 MG/DL CREATININE (test code = 2214) 0.59 MG/DL eGFR AMER. (test cod e = 48278) 108 ML/MIN/1.73 eGFR NON- AMER. (test code = 95755) 94 ML/MIN/1.73 CALC BUN/CREAT (test code = [...] (test code = 2219) 17 U/L LIPID [id number] 00:00:00* Test Item Value Reference Range Interpretation Comme nts CHOLESTEROL (test code = 2210) 236 MG/DL TRIGLYCERIDES (test code = 2232) 219 MG/DL HDL CHOLESTEROL (test code = 2220) 52 MG/DL CALC LDL CHOL (test code = 2237) 148 MG/DL RISK RATIO LDL/HDL (test cod e = 2238) 2.85 RATIO HEMOGLOBIN [id number] 00:00:00* Test Item Value Reference Range Interpretation Comme nts HEMOGLOBIN A1c (test code = 14632) 7.8 % COMPREHENSIVE METABOLIC [id number] 00:00:00* Test Item Value Reference Range Interpretation Comme nts GLUCOSE (test code = 2217) 123 MG/DL BUN (test code = 2208) 17 MG/DL CREATININE (test code = 2214) 0.59 MG/DL eGFR AMER. (test cod e = 03729) 108 ML/MIN/1.73 eGFR NON- AMER. (test code = 31077) 94 ML/MIN/1.73 CALC BUN/CREAT (test code = 2235) 29 RATIO SODIUM (test code = 2231) 144 MEQ/L POTASSIUM (test code = 2228) 4.3 MEQ/L CHLORIDE (test code = 2215) 106 MEQ/L CARBON DIOXIDE (test code = 2206) 28 MEQ/L CALCIUM (test code = 2209) 10.1 MG/DL PROTEIN, TOTAL (test code = 222) 7.3 G/DL ALBUMIN (test code = 2201) 4.3 G/DL CALC GLOBULIN (test code = 2240) 3.0 G/DL CALC A/G RATIO (test code = 2234) 1.4 RATIO BILIRUBIN, TOTAL (test code = 220) 0.3 MG/DL ALKALINE PHOSPHATASE (test code = 2204) 92 U/L AST (test code = 2218) 21 U/L ALT (test code = 2219) 17 U/L LIPID [id number] 00:00:00* Test Item Value Reference Range Interpretation Comme nts CHOLESTEROL (test code = 2210) 236 MG/DL TRIGLYCERIDES (test code = 2232) 219 MG/DL HDL CHOLESTEROL (test code = 2220) 52 MG/DL CALC LDL CHOL (test code = 2237) 148 MG/DL RISK RATIO LDL/HDL (test cod e = 2238) 2.85 RATIO HEMOGLOBIN [id number] 00:00:00* Test Item Value Reference Range Interpretation Comme nts HEMOGLOBIN A1c (test code = 81684) 7.8 % Toney F AustinCOMPREHENSIVE METABOLIC [id number] 00:00:00* Test Item Value Reference Range Interpretation Comme nts GLUCOSE (test code = 2217) 123 MG/DL BUN (test code = 8) 17 MG/DL CREATININE (test code = 2214) 0.59 MG/DL eGFR AMER. (test cod e = 09629) 108 ML/MIN/1.73 eGFR NON- AMER. (test code = 34210) 94 ML/MIN/1.73 CALC BUN/CREAT (test code = [...] code = 2219) 17 U/L Toney Cowan [place] [id number] 00:00:00* Test Item Value Reference Range Interpretation Comme nts CHOLESTEROL (test code = 2210) 236 MG/DL TRIGLYCERIDES (test code = 2232) 219 MG/DL HDL CHOLESTEROL (test code = 2220) 52 MG/DL CALC LDL CHOL (test code = 2237) 148 MG/DL RISK RATIO LDL/HDL (test cod e = 2238) 2.85 RATIO Toney RennerCOMPREHENSIVE METABOLIC [id number] 00:00:00* Test Item Value Reference Range Interpretation Comme nts GLUCOSE (test code = 2217) 99 MG/DL BUN (test code = 2208) 13 MG/DL CREATININE (test code = 2214) 0.52 MG/DL eGFR AMER. (test cod e = 33997) 113 ML/MIN/1.73 eGFR NON- AMER. (test code = 02170) 97 ML/MIN/1.73 CALC BUN/CREAT (test code = [...] = 2219) 17 U/L Toney Cowan AustinLIPID [id number] 00:00:00* Test Item Value Reference Range Interpretation Comme nts CHOLESTEROL (test code = 2210) 215 MG/DL TRIGLYCERIDES (test code = 2232) 179 MG/DL HDL CHOLESTEROL (test code = 2220) 50 MG/DL CALC LDL CHOL (test code = 2237) 134 MG/DL RISK RATIO LDL/HDL (test cod e = 2238) 2.68 RATIO Toney Cowan AustinHEMOGLOBIN [id number] 00:00:00* Test Item Value Reference Range Interpretation Comme nts HEMOGLOBIN A1c (test code = 36857) 7.5 % Toney Cowan AustinLIPID [id number] 00:00:00* Test Item Value Reference Range Interpretation Comme nts CHOLESTEROL (test code = 2210) 215 MG/DL TRIGLYCERIDES (test code = 2232) 179 MG/DL HDL CHOLESTEROL (test code = 2220) 50 MG/DL CALC LDL CHOL (test code = 2237) 134 MG/DL RISK RATIO LDL/HDL (test cod e = 2238) 2.68 RATIO Toney Cowan AustinHEMOGLOBIN [id number] 00:00:00* Test Item Value Reference Range Interpretation Comme nts HEMOGLOBIN A1c (test code = 86298) 7.5 % Toney Cowan AustinCOMPREHENSIVE METABOLIC [id number] 00:00:00* Test Item Value Reference Range Interpretation Comme nts GLUCOSE (test code = 2217) 99 MG/DL BUN (test code = 2208) 13 MG/DL CREATININE (test code = 2214) 0.52 MG/DL eGFR AMER. (test cod e = 44268) 113 ML/MIN/1.73 eGFR NON- AMER. (test code = 41838) 97 ML/MIN/1.73 CALC BUN/CREAT (test code = [...] code = 2219) 17 U/L Toney RennerLIPID [id number] 00:00:00* Test Item Value Reference Range Interpretation Comme nts CHOLESTEROL (test code = 2210) 215 MG/DL TRIGLYCERIDES (test code = 2232) 179 MG/DL HDL CHOLESTEROL (test code = 2220) 50 MG/DL CALC LDL CHOL (test code = 2237) 134 MG/DL RISK RATIO LDL/HDL (test cod e = 2238) 2.68 RATIO Toney RennerHEMOGLOBIN [id number] 00:00:00* Test Item Value Reference Range Interpretation Comme nts HEMOGLOBIN A1c (test code = 71595) 7.5 % Toney RennerCOMPREHENSIVE METABOLIC [id number] 00:00:00* Test Item Value Reference Range Interpretation Comme nts GLUCOSE (test code = 2217) 99 MG/DL BUN (test code = 2208) 13 MG/DL CREATININE (test code = 2214) 0.52 MG/DL eGFR AMER. (test cod e = 57078) 113 ML/MIN/1.73 eGFR NON- AMER. (test code = 51669) 97 ML/MIN/1.73 CALC BUN/CREAT (test code = [...] code = 2219) 17 U/L Toney RennerLIPID [id number] 00:00:00* Test Item Value Reference Range Interpretation Comme nts CHOLESTEROL (test code = 2210) 215 MG/DL TRIGLYCERIDES (test code = 2232) 179 MG/DL HDL CHOLESTEROL (test code = 2220) 50 MG/DL CALC LDL CHOL (test code = 2237) 134 MG/DL RISK RATIO LDL/HDL (test cod e = 223) 2.68 RATIO Toney RennerHEMOGLOBIN [id number] 00:00:00* Test Item Value Reference Range Interpretation Comme nts HEMOGLOBIN A1c (test code = 26861) 7.5 % Toney RennerCOMPREHENSIVE METABOLIC [id number] 00:00:00* Test Item Value Reference Range Interpretation Comme nts GLUCOSE (test code = 2217) 99 MG/DL BUN (test code = 8) 13 MG/DL CREATININE (test code = 2214) 0.52 MG/DL eGFR AMER. (test cod e = 81696) 113 ML/MIN/1.73 eGFR NON- AMER. (test code = 15845) 97 ML/MIN/1.73 CALC BUN/CREAT (test code = [...] code = 2219) 17 U/L Toney RennerLIPID [id number] 00:00:00* Test Item Value Reference Range Interpretation Comme nts CHOLESTEROL (test code = 2210) 215 MG/DL TRIGLYCERIDES (test code = 2232) 179 MG/DL HDL CHOLESTEROL (test code = 2220) 50 MG/DL CALC LDL CHOL (test code = 2237) 134 MG/DL RISK RATIO LDL/HDL (test cod e = 223) 2.68 RATIO Toney RennerHEMOGLOBIN [id number] 00:00:00* Test Item Value Reference Range Interpretation Comme nts HEMOGLOBIN A1c (test code = 44465) 7.5 % Toney RennerCOMPREHENSIVE METABOLIC [id number] 00:00:00* Test Item Value Reference Range Interpretation Comme nts GLUCOSE (test code = 2217) 99 MG/DL BUN (test code = 2208) 13 MG/DL CREATININE (test code = 2214) 0.52 MG/DL eGFR AMER. (test cod e = 48120) 113 ML/MIN/1.73 eGFR NON- AMER. (test code = 63037) 97 ML/MIN/1.73 CALC BUN/CREAT (test code = [...] = 2219) 17 U/L Toney Cowan AustinLIPID [id number] 00:00:00* Test Item Value Reference Range Interpretation Comme nts CHOLESTEROL (test code = 2210) 215 MG/DL TRIGLYCERIDES (test code = 2232) 179 MG/DL HDL CHOLESTEROL (test code = 2220) 50 MG/DL CALC LDL CHOL (test code = 2237) 134 MG/DL RISK RATIO LDL/HDL (test cod e = 2238) 2.68 RATIO Toney RennerHEMOGLOBIN [id number] 00:00:00* Test Item Value Reference Range Interpretation Comme nts HEMOGLOBIN A1c (test code = 82438) 7.5 % Toney RennerCOMPREHENSIVE METABOLIC [id number] 00:00:00* Test Item Value Reference Range Interpretation Comme nts GLUCOSE (test code = 2217) 99 MG/DL BUN (test code = 2208) 13 MG/DL CREATININE (test code = 2214) 0.52 MG/DL eGFR AMER. (test cod e = 50815) 113 ML/MIN/1.73 eGFR NON- AMER. (test code = 08260) 97 ML/MIN/1.73 CALC BUN/CREAT (test code = [...] code = 2219) 17 U/L Toney RennerLIPID [id number] 00:00:00* Test Item Value Reference Range Interpretation Comme nts CHOLESTEROL (test code = 2210) 215 MG/DL TRIGLYCERIDES (test code = 2232) 179 MG/DL HDL CHOLESTEROL (test code = 2220) 50 MG/DL CALC LDL CHOL (test code = 2237) 134 MG/DL RISK RATIO LDL/HDL (test cod e = 2238) 2.68 RATIO Toney RennerHEMOGLOBIN [id number] 00:00:00* Test Item Value Reference Range Interpretation Comme nts HEMOGLOBIN A1c (test code = 45640) 7.5 % Toney RennerCOMPREHENSIVE METABOLIC [id number] 00:00:00* Test Item Value Reference Range Interpretation Comme nts GLUCOSE (test code = 2217) 99 MG/DL BUN (test code = 2208) 13 MG/DL CREATININE (test code = 2214) 0.52 MG/DL eGFR AMER. (test cod e = 72314) 113 ML/MIN/1.73 eGFR NON- AMER. (test code = 17566) 97 ML/MIN/1.73 CALC BUN/CREAT (test code = [...] (test code = 2219) 17 U/L LIPID [id number] 00:00:00* Test Item Value Reference Range Interpretation Comme nts CHOLESTEROL (test code = 2210) 215 MG/DL TRIGLYCERIDES (test code = 2232) 179 MG/DL HDL CHOLESTEROL (test code = 2220) 50 MG/DL CALC LDL CHOL (test code = 2237) 134 MG/DL RISK RATIO LDL/HDL (test cod e = 2238) 2.68 RATIO HEMOGLOBIN [id number] 00:00:00* Test Item Value Reference Range Interpretation Comme nts HEMOGLOBIN A1c (test code = 66723) 7.5 % COMPREHENSIVE METABOLIC [id number] 00:00:00* Test Item Value Reference Range Interpretation Comme nts GLUCOSE (test code = 2217) 99 MG/DL BUN (test code = 2208) 13 MG/DL CREATININE (test code = 2214) 0.52 MG/DL eGFR AMER. (test cod e = 31295) 113 ML/MIN/1.73 eGFR NON- AMER. (test code = 12376) 97 ML/MIN/1.73 CALC BUN/CREAT (test code = [...] (test code = 2219) 17 U/L LIPID [id number] 00:00:00* Test Item Value Reference Range Interpretation Comme nts CHOLESTEROL (test code = 2210) 215 MG/DL TRIGLYCERIDES (test code = 2232) 179 MG/DL HDL CHOLESTEROL (test code = 2220) 50 MG/DL CALC LDL CHOL (test code = 2237) 134 MG/DL RISK RATIO LDL/HDL (test cod e = 2238) 2.68 RATIO HEMOGLOBIN [id number] 00:00:00* Test Item Value Reference Range Interpretation Comme nts HEMOGLOBIN A1c (test code = 29227) 7.5 % COMPREHENSIVE METABOLIC [id number] 00:00:00* Test Item Value Reference Range Interpretation Comme nts GLUCOSE (test code = 2217) 99 MG/DL BUN (test code = 2208) 13 MG/DL CREATININE (test code = 2214) 0.52 MG/DL eGFR AMER. (test cod e = 72633) 113 ML/MIN/1.73 eGFR NON- AMER. (test code = 63340) 97 ML/MIN/1.73 CALC BUN/CREAT (test code = [...] (test code = 2219) 17 U/L LIPID [id number] 00:00:00* Test Item Value Reference Range Interpretation Comme nts CHOLESTEROL (test code = 2210) 215 MG/DL TRIGLYCERIDES (test code = 2232) 179 MG/DL HDL CHOLESTEROL (test code = 2220) 50 MG/DL CALC LDL CHOL (test code = 2237) 134 MG/DL RISK RATIO LDL/HDL (test cod e = 2238) 2.68 RATIO HEMOGLOBIN [id number] 00:00:00* Test Item Value Reference Range Interpretation Comme nts HEMOGLOBIN A1c (test code = 88573) 7.5 % COMPREHENSIVE METABOLIC [id number] 00:00:00* Test Item Value Reference Range Interpretation Comme nts GLUCOSE (test code = 2217) 99 MG/DL BUN (test code = 2208) 13 MG/DL CREATININE (test code = 2214) 0.52 MG/DL eGFR AMER. (test cod e = 44331) 113 ML/MIN/1.73 eGFR NON- AMER. (test code = 76013) 97 ML/MIN/1.73 CALC BUN/CREAT (test code = [...] code = 2219) 17 U/L COMPREHENSIVE METABOLIC [id number] 00:00:00* Test Item Value Reference Range Interpretation Comme nts GLUCOSE (test code = 2217) 99 MG/DL BUN (test code = 2208) 13 MG/DL CREATININE (test code = 2214) 0.52 MG/DL eGFR AMER. (test cod e = 34993) 113 ML/MIN/1.73 eGFR NON- AMER. (test code = 57017) 97 ML/MIN/1.73 CALC BUN/CREAT (test code = [...] (test code = 2219) 17 U/L LIPID [id number] 00:00:00* Test Item Value Reference Range Interpretation Comme nts CHOLESTEROL (test code = 2210) 215 MG/DL TRIGLYCERIDES (test code = 2232) 179 MG/DL HDL CHOLESTEROL (test code = 2220) 50 MG/DL CALC LDL CHOL (test code = 2237) 134 MG/DL RISK RATIO LDL/HDL (test cod e = 2238) 2.68 RATIO HEMOGLOBIN [id number] 00:00:00* Test Item Value Reference Range Interpretation Comme nts HEMOGLOBIN A1c (test code = 08422) 7.5 % LIPID [id number] 00:00:00* Test Item Value Reference Range Interpretation Comme nts CHOLESTEROL (test code = 2210) 215 MG/DL TRIGLYCERIDES (test code = 2232) 179 MG/DL HDL CHOLESTEROL (test code = 2220) 50 MG/DL CALC LDL CHOL (test code = 2237) 134 MG/DL RISK RATIO LDL/HDL (test cod e = 2238) 2.68 RATIO HEMOGLOBIN [id number] 00:00:00* Test Item Value Reference Range Interpretation Comme nts HEMOGLOBIN A1c (test code = 67206) 7.5 % COMPREHENSIVE METABOLIC [id number] 00:00:00* Test Item Value Reference Range Interpretation Comme nts GLUCOSE (test code = 2217) 99 MG/DL BUN (test code = 2208) 13 MG/DL CREATININE (test code = 2214) 0.52 MG/DL eGFR AMER. (test cod e = 67732) 113 ML/MIN/1.73 eGFR NON- AMER. (test code = 19920) 97 ML/MIN/1.73 CALC BUN/CREAT (test code = [...] (test code = 2219) 17 U/L LIPID [id number] 00:00:00* Test Item Value Reference Range Interpretation Comme nts CHOLESTEROL (test code = 2210) 215 MG/DL TRIGLYCERIDES (test code = 2232) 179 MG/DL HDL CHOLESTEROL (test code = 2220) 50 MG/DL CALC LDL CHOL (test code = 2237) 134 MG/DL RISK RATIO LDL/HDL (test cod e = 2238) 2.68 RATIO HEMOGLOBIN [id number] 00:00:00* Test Item Value Reference Range Interpretation Comme nts HEMOGLOBIN A1c (test code = 39270) 7.5 % COMPREHENSIVE METABOLIC [id number] 00:00:00* Test Item Value Reference Range Interpretation Comme nts GLUCOSE (test code = 2217) 99 MG/DL BUN (test code = 2208) 13 MG/DL CREATININE (test code = 2214) 0.52 MG/DL eGFR AMER. (test cod e = 51784) 113 ML/MIN/1.73 eGFR NON- AMER. (test code = 55526) 97 ML/MIN/1.73 CALC BUN/CREAT (test code = [...] (test code = 2219) 17 U/L LIPID [id number] 00:00:00* Test Item Value Reference Range Interpretation Comme nts CHOLESTEROL (test code = 2210) 215 MG/DL TRIGLYCERIDES (test code = 2232) 179 MG/DL HDL CHOLESTEROL (test code = 2220) 50 MG/DL CALC LDL CHOL (test code = 2237) 134 MG/DL RISK RATIO LDL/HDL (test cod e = 2238) 2.68 RATIO HEMOGLOBIN [id number] 00:00:00* Test Item Value Reference Range Interpretation Comme nts HEMOGLOBIN A1c (test code = 24993) 7.5 % COMPREHENSIVE METABOLIC [id number] 00:00:00* Test Item Value Reference Range Interpretation Comme nts GLUCOSE (test code = 2217) 99 MG/DL BUN (test code = 2208) 13 MG/DL CREATININE (test code = 2214) 0.52 MG/DL eGFR AMER. (test cod e = 86421) 113 ML/MIN/1.73 eGFR NON- AMER. (test code = 18749) 97 ML/MIN/1.73 CALC BUN/CREAT (test code = [...] (test code = 2219) 17 U/L LIPID [id number] 00:00:00* Test Item Value Reference Range Interpretation Comme nts CHOLESTEROL (test code = 2210) 215 MG/DL TRIGLYCERIDES (test code = 2232) 179 MG/DL HDL CHOLESTEROL (test code = 2220) 50 MG/DL CALC LDL CHOL (test code = 2237) 134 MG/DL RISK RATIO LDL/HDL (test cod e = 2238) 2.68 RATIO HEMOGLOBIN [id number] 00:00:00* Test Item Value Reference Range Interpretation Comme nts HEMOGLOBIN A1c (test code = 68301) 7.5 % COMPREHENSIVE METABOLIC [id number] 00:00:00* Test Item Value Reference Range Interpretation Comme nts GLUCOSE (test code = 2217) 99 MG/DL BUN (test code = 2208) 13 MG/DL CREATININE (test code = 2214) 0.52 MG/DL eGFR AMER. (test cod e = 48916) 113 ML/MIN/1.73 eGFR NON- AMER. (test code = 72912) 97 ML/MIN/1.73 CALC BUN/CREAT (test code = [...] (test code = 2219) 17 U/L LIPID [id number] 00:00:00* Test Item Value Reference Range Interpretation Comme nts CHOLESTEROL (test code = 2210) 215 MG/DL TRIGLYCERIDES (test code = 2232) 179 MG/DL HDL CHOLESTEROL (test code = 2220) 50 MG/DL CALC LDL CHOL (test code = 2237) 134 MG/DL RISK RATIO LDL/HDL (test cod e = 2238) 2.68 RATIO HEMOGLOBIN [id number] 00:00:00* Test Item Value Reference Range Interpretation Comme nts HEMOGLOBIN A1c (test code = 78250) 7.5 % COMPREHENSIVE METABOLIC [id number] 00:00:00* Test Item Value Reference Range Interpretation Comme nts GLUCOSE (test code = 2217) 99 MG/DL BUN (test code = 2208) 13 MG/DL CREATININE (test code = 2214) 0.52 MG/DL eGFR AMER. (test cod e = 35593) 113 ML/MIN/1.73 eGFR NON- AMER. (test code = 26134) 97 ML/MIN/1.73 CALC BUN/CREAT (test code = [...] code = 2219) 17 U/L Toney Cowan CordovaLIPID [id number] 00:00:00* Test Item Value Reference Range Interpretation Comme nts CHOLESTEROL (test code = 2210) 215 MG/DL TRIGLYCERIDES (test code = 2232) 179 MG/DL HDL CHOLESTEROL (test code = 2220) 50 MG/DL CALC LDL CHOL (test code = 2237) 134 MG/DL RISK RATIO LDL/HDL (test cod e = 2238) 2.68 RATIO Toney RennerCOMPREHENSIVE METABOLIC [id number] 00:00:00* Test Item Value Reference Range Interpretation Comme nts GLUCOSE (test code = 2217) 99 MG/DL BUN (test code = 2208) 13 MG/DL CREATININE (test code = 2214) 0.52 MG/DL eGFR AMER. (test cod e = 71891) 113 ML/MIN/1.73 eGFR NON- AMER. (test code = 72144) 97 ML/MIN/1.73 CALC BUN/CREAT (test code = [...] (test code = 2219) 17 U/L Toney RennerHEMOGLOBIN [id number] 00:00:00* Test Item Value Reference Range Interpretation Comme nts HEMOGLOBIN A1c (test code = 88671) 7.5 % Toney RennerSARS-CoV-2 (COVID-19) by RT-PCR (HIGH RISK)2020-06-30 00:00:00* Test Item Value Reference Range Interpretation Comme nts SARS-CoV-2 INTERPRETATION (test code = 65916) Negative SOURCE (test code = 09250) Nasal_Swab_in _VTM__ UTM Toney Cowan IpmoycOOZQ-EvL-3 (COVID-19) by RT-PCR (HIGH RISK)2020-06-30 00:00:00* Test Item Value Reference Range Interpretation Comme nts SARS-CoV-2 INTERPRETATION (test code = 02677) Negative SOURCE (test code = 89067) Nasal_Swab_in _VTM__ UTM Toney Cowan PblvacQYQG-LjX-9 (COVID-19) by RT-PCR (HIGH RISK)2020-06-30 00:00:00* Test Item Value Reference Range Interpretation Comme nts SARS-CoV-2 INTERPRETATION (test code = 98456) Negative SOURCE (test code = 79228) Nasal_Swab_in _VTM__ UTM Toney Cowan IrnnuzVTTV-AsP-7 (COVID-19) by RT-PCR (HIGH RISK)2020-06-30 00:00:00* Test Item Value Reference Range Interpretation Comme nts SARS-CoV-2 INTERPRETATION (test code = 68975) Negative SOURCE (test code = 65847) Nasal_Swab_in _VTM__ UTM Toney Cowan FuvbilSGIE-UgE-7 (COVID-19) by RT-PCR (HIGH RISK)2020-06-30 00:00:00* Test Item Value Reference Range Interpretation Comme nts SARS-CoV-2 INTERPRETATION (test code = 94128) Negative SOURCE (test code = 05369) Nasal_Swab_in _VTM__ UTM Toney Cowan DgklyuXUMK-GpD-6 (COVID-19) by RT-PCR (HIGH RISK)2020-06-30 00:00:00* Test Item Value Reference Range Interpretation Comme nts SARS-CoV-2 INTERPRETATION (test code = 94592) Negative SOURCE (test code = 52019) Nasal_Swab_in _VTM__ UTM Toney Cowan ArjzebNAJA-TgR-0 (COVID-19) by RT-PCR (HIGH RISK)2020-06-30 00:00:00* Test Item Value Reference Range Interpretation Comme nts SARS-CoV-2 INTERPRETATION (test code = 05684) Negative SOURCE (test code = 48449) Nasal_Swab_in _VTM__ UTM Toney Cowan YzszguSMUG-HiC-3 (COVID-19) by RT-PCR (HIGH RISK)2020-06-30 00:00:00* Test Item Value Reference Range Interpretation Comme nts SARS-CoV-2 INTERPRETATION (test code = 31851) Negative SOURCE (test code = 97203) Nasal_Swab_in _VTM__ UTM SARS-CoV-2 (COVID-19) by RT-PCR (HIGH RISK)2020-06-30 00:00:00* Test Item Value Reference Range Interpretation Comme nts SARS-CoV-2 INTERPRETATION (test code = 09232) Negative SOURCE (test code = 21529) Nasal_Swab_in _VTM__ UTM SARS-CoV-2 (COVID-19) by RT-PCR (HIGH RISK)2020-06-30 00:00:00* Test Item Value Reference Range Interpretation Comme nts SARS-CoV-2 INTERPRETATION (test code = 20797) Negative SOURCE (test code = 55660) Nasal_Swab_in _VTM__ UTM SARS-CoV-2 (COVID-19) by RT-PCR (HIGH RISK)2020-06-30 00:00:00* Test Item Value Reference Range Interpretation Comme nts SARS-CoV-2 INTERPRETATION (test code = 37802) Negative SOURCE (test code = 74046) Nasal_Swab_in _VTM__ UTM SARS-CoV-2 (COVID-19) by RT-PCR (HIGH RISK)2020-06-30 00:00:00* Test Item Value Reference Range Interpretation Comme nts SARS-CoV-2 INTERPRETATION (test code = 33919) Negative SOURCE (test code = 18862) Nasal_Swab_in _VTM__ UTM SARS-CoV-2 (COVID-19) by RT-PCR (HIGH RISK)2020-06-30 00:00:00* Test Item Value Reference Range Interpretation Comme nts SARS-CoV-2 INTERPRETATION (test code = 11955) Negative SOURCE (test code = 86033) Nasal_Swab_in _VTM__ UTM SARS-CoV-2 (COVID-19) by RT-PCR (HIGH RISK)2020-06-30 00:00:00* Test Item Value Reference Range Interpretation Comme nts SARS-CoV-2 INTERPRETATION (test code = 19732) Negative SOURCE (test code = 17615) Nasal_Swab_in _VTM__ UTM SARS-CoV-2 (COVID-19) by RT-PCR (HIGH RISK)2020-06-30 00:00:00* Test Item Value Reference Range Interpretation Comme nts SARS-CoV-2 INTERPRETATION (test code = 70086) Negative SOURCE (test code = 58678) Nasal_Swab_in _VTM__ UTM SARS-CoV-2 (COVID-19) by RT-PCR (HIGH RISK)2020-06-30 00:00:00* Test Item Value Reference Range Interpretation Comme nts SARS-CoV-2 INTERPRETATION (test code = 93208) Negative SOURCE (test code = 41717) Nasal_Swab_in _VTM__ UTM SARS-CoV-2 (COVID-19) by RT-PCR (HIGH RISK)2020-06-30 00:00:00* Test Item Value Reference Range Interpretation Comme nts SARS-CoV-2 INTERPRETATION (test code = 16794) Negative SOURCE (test code = 71538) Nasal_Swab_in _VTM__ UTM Toney Cowan RcgmrqDCPF-MpM-7 (COVID-19) by RT-PCR (HIGH RISK)2020-06-10 00:00:00* Test Item Value Reference Range Interpretation Comme nts SARS-CoV-2 INTERPRETATION (t est code = 91341) POSITIVE SOURCE (test code = 15134) NOT SPECIFIED Toney Cowan RjajrcSHYR-SxS-8 (COVID-19) by RT-PCR (HIGH RISK)2020-06-10 00:00:00* Test Item Value Reference Range Interpretation Comme nts SARS-CoV-2 INTERPRETATION (t est code = 90422) POSITIVE SOURCE (test code = 34533) NOT SPECIFIED Toney F EhgaspCFML-KuM-6 (COVID-19) by RT-PCR (HIGH RISK)2020-06-10 00:00:00* Test Item Value Reference Range Interpretation Comme nts SARS-CoV-2 INTERPRETATION (t est code = 53614) POSITIVE SOURCE (test code = 07407) NOT SPECIFIED Toney F LizmwiZBUO-OwM-6 (COVID-19) by RT-PCR (HIGH RISK)2020-06-10 00:00:00* Test Item Value Reference Range Interpretation Comme nts SARS-CoV-2 INTERPRETATION (t est code = 30566) POSITIVE SOURCE (test code = 48527) NOT SPECIFIED Toney Cowan ShmggzYDQO-JlW-7 (COVID-19) by RT-PCR (HIGH RISK)2020-06-10 00:00:00* Test Item Value Reference Range Interpretation Comme nts SARS-CoV-2 INTERPRETATION (t est code = 34993) POSITIVE SOURCE (test code = 14823) NOT SPECIFIED Toney Cowan XqsoqlVXSZ-IaP-1 (COVID-19) by RT-PCR (HIGH RISK)2020-06-10 00:00:00* Test Item Value Reference Range Interpretation Comme nts SARS-CoV-2 INTERPRETATION (t est code = 28408) POSITIVE SOURCE (test code = 22999) NOT SPECIFIED Toney F KuazjbIDPB-DtA-6 (COVID-19) by RT-PCR (HIGH RISK)2020-06-10 00:00:00* Test Item Value Reference Range Interpretation Comme nts SARS-CoV-2 INTERPRETATION (t est code = 50047) POSITIVE SOURCE (test code = 59165) NOT SPECIFIED Toney F YvhtrmHWJG-AfI-6 (COVID-19) by RT-PCR (HIGH RISK)2020-06-10 00:00:00* Test Item Value Reference Range Interpretation Comme nts SARS-CoV-2 INTERPRETATION (t est code = 74504) POSITIVE SOURCE (test code = 72992) NOT SPECIFIED SARS-CoV-2 (COVID-19) by RT-PCR (HIGH RISK)2020-06-10 00:00:00* Test Item Value Reference Range Interpretation Comme nts SARS-CoV-2 INTERPRETATION (t est code = 92914) POSITIVE SOURCE (test code = 28749) NOT SPECIFIED SARS-CoV-2 (COVID-19) by RT-PCR (HIGH RISK)2020-06-10 00:00:00* Test Item Value Reference Range Interpretation Comme nts SARS-CoV-2 INTERPRETATION (t est code = 07713) POSITIVE SOURCE (test code = 73347) NOT SPECIFIED SARS-CoV-2 (COVID-19) by RT-PCR (HIGH RISK)2020-06-10 00:00:00* Test Item Value Reference Range Interpretation Comme nts SARS-CoV-2 INTERPRETATION (t est code = 61528) POSITIVE SOURCE (test code = 94758) NOT SPECIFIED SARS-CoV-2 (COVID-19) by RT-PCR (HIGH RISK)2020-06-10 00:00:00* Test Item Value Reference Range Interpretation Comme nts SARS-CoV-2 INTERPRETATION (t est code = 57758) POSITIVE SOURCE (test code = 70417) NOT SPECIFIED SARS-CoV-2 (COVID-19) by RT-PCR (HIGH RISK)2020-06-10 00:00:00* Test Item Value Reference Range Interpretation Comme nts SARS-CoV-2 INTERPRETATION (t est code = 31629) POSITIVE SOURCE (test code = 63539) NOT SPECIFIED SARS-CoV-2 (COVID-19) by RT-PCR (HIGH RISK)2020-06-10 00:00:00* Test Item Value Reference Range Interpretation Comme nts SARS-CoV-2 INTERPRETATION (t est code = 53820) POSITIVE SOURCE (test code = 97410) NOT SPECIFIED SARS-CoV-2 (COVID-19) by RT-PCR (HIGH RISK)2020-06-10 00:00:00* Test Item Value Reference Range Interpretation Comme nts SARS-CoV-2 INTERPRETATION (t est code = 51013) POSITIVE SOURCE (test code = 94830) NOT SPECIFIED SARS-CoV-2 (COVID-19) by RT-PCR (HIGH RISK)2020-06-10 00:00:00* Test Item Value Reference Range Interpretation Comme nts SARS-CoV-2 INTERPRETATION (t est code = 67304) POSITIVE SOURCE (test code = 34969) NOT SPECIFIED SARS-CoV-2 (COVID-19) by RT-PCR (HIGH RISK)2020-06-10 00:00:00* Test Item Value Reference Range Interpretation Comme nts SARS-CoV-2 INTERPRETATION (t est code = 39691) POSITIVE SOURCE (test code = 63432) NOT SPECIFIED Toney Cowan [place]HEMOGLOBIN [id number] 00:00:00* Test Item Value Reference Range Interpretation Comme nts HEMOGLOBIN A1c (test code = 32275) 7.1 % Toney Cowan AustinHEMOGLOBIN [id number] 00:00:00* Test Item Value Reference Range Interpretation Comme nts HEMOGLOBIN A1c (test code = 67393) 7.1 % Toney Cowan AustinHEMOGLOBIN [id number] 00:00:00* Test Item Value Reference Range Interpretation Comme nts HEMOGLOBIN A1c (test code = 43912) 7.1 % Toney Cowan AustinHEMOGLOBIN [id number] 00:00:00* Test Item Value Reference Range Interpretation Comme nts HEMOGLOBIN A1c (test code = 96415) 7.1 % Toney Cowan AustinHEMOGLOBIN [id number] 00:00:00* Test Item Value Reference Range Interpretation Comme nts HEMOGLOBIN A1c (test code = 08477) 7.1 % Toney Cowan AustinHEMOGLOBIN [id number] 00:00:00* Test Item Value Reference Range Interpretation Comme nts HEMOGLOBIN A1c (test code = 14022) 7.1 % Toney Cowan AustinHEMOGLOBIN [id number] 00:00:00* Test Item Value Reference Range Interpretation Comme nts HEMOGLOBIN A1c (test code = 37740) 7.1 % HEMOGLOBIN [id number] 00:00:00* Test Item Value Reference Range Interpretation Comme nts HEMOGLOBIN A1c (test code = 90539) 7.1 % HEMOGLOBIN [id number] 00:00:00* Test Item Value Reference Range Interpretation Comme nts HEMOGLOBIN A1c (test code = 07595) 7.1 % HEMOGLOBIN [id number] 00:00:00* Test Item Value Reference Range Interpretation Comme nts HEMOGLOBIN A1c (test code = 91560) 7.1 % HEMOGLOBIN [id number] 00:00:00* Test Item Value Reference Range Interpretation Comme nts HEMOGLOBIN A1c (test code = 46649) 7.1 % HEMOGLOBIN [id number] 00:00:00* Test Item Value Reference Range Interpretation Comme nts HEMOGLOBIN A1c (test code = 37874) 7.1 % HEMOGLOBIN [id number] 00:00:00* Test Item Value Reference Range Interpretation Comme nts HEMOGLOBIN A1c (test code = 94475) 7.1 % HEMOGLOBIN [id number] 00:00:00* Test Item Value Reference Range Interpretation Comme nts HEMOGLOBIN A1c (test code = 19443) 7.1 % HEMOGLOBIN [id number] 00:00:00* Test Item Value Reference Range Interpretation Comme nts HEMOGLOBIN A1c (test code = 21489) 7.1 % HEMOGLOBIN [id number] 00:00:00* Test Item Value Reference Range Interpretation Comme nts HEMOGLOBIN A1c (test code = 50450) 7.1 % Toney F AustinHEMOGLOBIN [id number] 00:00:00* Test Item Value Reference Range Interpretation Comme nts HEMOGLOBIN A1c (test code = 07815) 7.1 % Toney F AustinCOMPREHENSIVE METABOLIC [id number] 00:00:00* Test Item Value Reference Range Interpretation Comme nts GLUCOSE (test code = 2217) 234 MG/DL BUN (test code = 2208) 18 MG/DL CREATININE (test code = 2214) 0.61 MG/DL eGFR AMER. (test cod e = 95281) 108 ML/MIN/1.73 eGFR NON- AMER. (test code = 48744) 93 ML/MIN/1.73 CALC BUN/CREAT (test code = [...] = 2219) 19 U/L Toney Cowan AustinLIPID [id number] 00:00:00* Test Item Value Reference Range Interpretation Comme nts CHOLESTEROL (test code = 2210) 199 MG/DL TRIGLYCERIDES (test code = 2232) 164 MG/DL HDL CHOLESTEROL (test code = 2220) 45 MG/DL CALC LDL CHOL (test code = 2237) 126 MG/DL RISK RATIO LDL/HDL (test cod e = 2238) 2.80 RATIO Toney RennerCOMPREHENSIVE METABOLIC [id number] 00:00:00* Test Item Value Reference Range Interpretation Comme nts GLUCOSE (test code = 2217) 234 MG/DL BUN (test code = 2208) 18 MG/DL CREATININE (test code = 2214) 0.61 MG/DL eGFR AMER. (test cod e = 17528) 108 ML/MIN/1.73 eGFR NON- AMER. (test code = 51019) 93 ML/MIN/1.73 CALC BUN/CREAT (test code = [...] = 2219) 19 U/L Toney Cowan AustinLIPID [id number] 00:00:00* Test Item Value Reference Range Interpretation Comme nts CHOLESTEROL (test code = 2210) 199 MG/DL TRIGLYCERIDES (test code = 2232) 164 MG/DL HDL CHOLESTEROL (test code = 2220) 45 MG/DL CALC LDL CHOL (test code = 2237) 126 MG/DL RISK RATIO LDL/HDL (test cod e = 2238) 2.80 RATIO Toney Cowan AustinCOMPREHENSIVE METABOLIC [id number] 00:00:00* Test Item Value Reference Range Interpretation Comme nts GLUCOSE (test code = 2217) 234 MG/DL BUN (test code = 2208) 18 MG/DL CREATININE (test code = 2214) 0.61 MG/DL eGFR AMER. (test cod e = 06196) 108 ML/MIN/1.73 eGFR NON- AMER. (test code = 54963) 93 ML/MIN/1.73 CALC BUN/CREAT (test code = [...] = 2219) 19 U/L Toney Cowan [place]LIPID [id number] 00:00:00* Test Item Value Reference Range Interpretation Comme nts CHOLESTEROL (test code = 2210) 199 MG/DL TRIGLYCERIDES (test code = 2232) 164 MG/DL HDL CHOLESTEROL (test code = 2220) 45 MG/DL CALC LDL CHOL (test code = 2237) 126 MG/DL RISK RATIO LDL/HDL (test cod e = 2238) 2.80 RATIO Toney Cowan AustinCOMPREHENSIVE METABOLIC [id number] 00:00:00* Test Item Value Reference Range Interpretation Comme nts GLUCOSE (test code = 2217) 234 MG/DL BUN (test code = 2208) 18 MG/DL CREATININE (test code = 2214) 0.61 MG/DL eGFR AMER. (test cod e = 34934) 108 ML/MIN/1.73 eGFR NON- AMER. (test code = 10679) 93 ML/MIN/1.73 CALC BUN/CREAT (test code = [...] code = 2219) 19 U/L Toney Cowan [place] [id number] 00:00:00* Test Item Value Reference Range Interpretation Comme nts CHOLESTEROL (test code = 2210) 199 MG/DL TRIGLYCERIDES (test code = 2232) 164 MG/DL HDL CHOLESTEROL (test code = 2220) 45 MG/DL CALC LDL CHOL (test code = 2237) 126 MG/DL RISK RATIO LDL/HDL (test cod e = 2238) 2.80 RATIO Toney RennerCOMPREHENSIVE METABOLIC [id number] 00:00:00* Test Item Value Reference Range Interpretation Comme nts GLUCOSE (test code = 2217) 234 MG/DL BUN (test code = 2208) 18 MG/DL CREATININE (test code = 2214) 0.61 MG/DL eGFR AMER. (test cod e = 88725) 108 ML/MIN/1.73 eGFR NON- AMER. (test code = 06995) 93 ML/MIN/1.73 CALC BUN/CREAT (test code = [...] code = 2219) 19 U/L Toney RennerLIPID [id number] 00:00:00* Test Item Value Reference Range Interpretation Comme nts CHOLESTEROL (test code = 2210) 199 MG/DL TRIGLYCERIDES (test code = 2232) 164 MG/DL HDL CHOLESTEROL (test code = 2220) 45 MG/DL CALC LDL CHOL (test code = 2237) 126 MG/DL RISK RATIO LDL/HDL (test cod e = 2238) 2.80 RATIO Toney RennerCOMPREHENSIVE METABOLIC [id number] 00:00:00* Test Item Value Reference Range Interpretation Comme nts GLUCOSE (test code = 2217) 234 MG/DL BUN (test code = 2208) 18 MG/DL CREATININE (test code = 2214) 0.61 MG/DL eGFR AMER. (test cod e = 96701) 108 ML/MIN/1.73 eGFR NON- AMER. (test code = 25553) 93 ML/MIN/1.73 CALC BUN/CREAT (test code = [...] = 2219) 19 U/L Toney Cowan [place]LIP[place] [id number] 00:00:00* Test Item Value Reference Range Interpretation Comme nts CHOLESTEROL (test code = 2210) 199 MG/DL TRIGLYCERIDES (test code = 2232) 164 MG/DL HDL CHOLESTEROL (test code = 2220) 45 MG/DL CALC LDL CHOL (test code = 2237) 126 MG/DL RISK RATIO LDL/HDL (test cod e = 2238) 2.80 RATIO Toney RennerCOMPREHENSIVE METABOLIC [id number] 00:00:00* Test Item Value Reference Range Interpretation Comme nts GLUCOSE (test code = 2217) 234 MG/DL BUN (test code = 2208) 18 MG/DL CREATININE (test code = 2214) 0.61 MG/DL eGFR AMER. (test cod e = 77305) 108 ML/MIN/1.73 eGFR NON- AMER. (test code = 18137) 93 ML/MIN/1.73 CALC BUN/CREAT (test code = [...] = 2219) 19 U/L Toney Cowan [place]LIPID [id number] 00:00:00* Test Item Value Reference Range Interpretation Comme nts CHOLESTEROL (test code = 2210) 199 MG/DL TRIGLYCERIDES (test code = 2232) 164 MG/DL HDL CHOLESTEROL (test code = 2220) 45 MG/DL CALC LDL CHOL (test code = 2237) 126 MG/DL RISK RATIO LDL/HDL (test cod e = 2238) 2.80 RATIO Toney RennerCOMPREHENSIVE METABOLIC [id number] 00:00:00* Test Item Value Reference Range Interpretation Comme nts GLUCOSE (test code = 2217) 234 MG/DL BUN (test code = 2208) 18 MG/DL CREATININE (test code = 2214) 0.61 MG/DL eGFR AMER. (test cod e = 41311) 108 ML/MIN/1.73 eGFR NON- AMER. (test code = 58572) 93 ML/MIN/1.73 CALC BUN/CREAT (test code = [...] (test code = 2219) 19 U/L LIPID [id number] 00:00:00* Test Item Value Reference Range Interpretation Comme nts CHOLESTEROL (test code = 2210) 199 MG/DL TRIGLYCERIDES (test code = 2232) 164 MG/DL HDL CHOLESTEROL (test code = 2220) 45 MG/DL CALC LDL CHOL (test code = 2237) 126 MG/DL RISK RATIO LDL/HDL (test cod e = 2238) 2.80 RATIO COMPREHENSIVE METABOLIC [id number] 00:00:00* Test Item Value Reference Range Interpretation Comme nts GLUCOSE (test code = 2217) 234 MG/DL BUN (test code = 2208) 18 MG/DL CREATININE (test code = 2214) 0.61 MG/DL eGFR AMER. (test cod e = 31742) 108 ML/MIN/1.73 eGFR NON- AMER. (test code = 14245) 93 ML/MIN/1.73 CALC BUN/CREAT (test code = [...] (test code = 2219) 19 U/L LIPID [id number] 00:00:00* Test Item Value Reference Range Interpretation Comme nts CHOLESTEROL (test code = 2210) 199 MG/DL TRIGLYCERIDES (test code = 2232) 164 MG/DL HDL CHOLESTEROL (test code = 2220) 45 MG/DL CALC LDL CHOL (test code = 2237) 126 MG/DL RISK RATIO LDL/HDL (test cod e = 2238) 2.80 RATIO COMPREHENSIVE METABOLIC [id number] 00:00:00* Test Item Value Reference Range Interpretation Comme nts GLUCOSE (test code = 2217) 234 MG/DL BUN (test code = 2208) 18 MG/DL CREATININE (test code = 2214) 0.61 MG/DL eGFR AMER. (test cod e = 57745) 108 ML/MIN/1.73 eGFR NON- AMER. (test code = 60877) 93 ML/MIN/1.73 CALC BUN/CREAT (test code = [...] (test code = 2219) 19 U/L LIPID [id number] 00:00:00* Test Item Value Reference Range Interpretation Comme nts CHOLESTEROL (test code = 2210) 199 MG/DL TRIGLYCERIDES (test code = 2232) 164 MG/DL HDL CHOLESTEROL (test code = 2220) 45 MG/DL CALC LDL CHOL (test code = 2237) 126 MG/DL RISK RATIO LDL/HDL (test cod e = 2238) 2.80 RATIO COMPREHENSIVE METABOLIC [id number] 00:00:00* Test Item Value Reference Range Interpretation Comme nts GLUCOSE (test code = 2217) 234 MG/DL BUN (test code = 2208) 18 MG/DL CREATININE (test code = 2214) 0.61 MG/DL eGFR AMER. (test cod e = 99742) 108 ML/MIN/1.73 eGFR NON- AMER. (test code = 82770) 93 ML/MIN/1.73 CALC BUN/CREAT (test code = [...] (test code = 2219) 19 U/L LIPID [id number] 00:00:00* Test Item Value Reference Range Interpretation Comme nts CHOLESTEROL (test code = 2210) 199 MG/DL TRIGLYCERIDES (test code = 2232) 164 MG/DL HDL CHOLESTEROL (test code = 2220) 45 MG/DL CALC LDL CHOL (test code = 2237) 126 MG/DL RISK RATIO LDL/HDL (test cod e = 2238) 2.80 RATIO COMPREHENSIVE METABOLIC [id number] 00:00:00* Test Item Value Reference Range Interpretation Comme nts GLUCOSE (test code = 2217) 234 MG/DL BUN (test code = 2208) 18 MG/DL CREATININE (test code = 2214) 0.61 MG/DL eGFR AMER. (test cod e = 97070) 108 ML/MIN/1.73 eGFR NON- AMER. (test code = 47069) 93 ML/MIN/1.73 CALC BUN/CREAT (test code = [...] (test code = 2219) 19 U/L LIPID [id number] 00:00:00* Test Item Value Reference Range Interpretation Comme nts CHOLESTEROL (test code = 2210) 199 MG/DL TRIGLYCERIDES (test code = 2232) 164 MG/DL HDL CHOLESTEROL (test code = 2220) 45 MG/DL CALC LDL CHOL (test code = 2237) 126 MG/DL RISK RATIO LDL/HDL (test cod e = 2238) 2.80 RATIO COMPREHENSIVE METABOLIC [id number] 00:00:00* Test Item Value Reference Range Interpretation Comme nts GLUCOSE (test code = 2217) 234 MG/DL BUN (test code = 2208) 18 MG/DL CREATININE (test code = 2214) 0.61 MG/DL eGFR AMER. (test cod e = 66337) 108 ML/MIN/1.73 eGFR NON- AMER. (test code = 03306) 93 ML/MIN/1.73 CALC BUN/CREAT (test code = [...] (test code = 2219) 19 U/L LIPID [id number] 00:00:00* Test Item Value Reference Range Interpretation Comme nts CHOLESTEROL (test code = 2210) 199 MG/DL TRIGLYCERIDES (test code = 2232) 164 MG/DL HDL CHOLESTEROL (test code = 2220) 45 MG/DL CALC LDL CHOL (test code = 2237) 126 MG/DL RISK RATIO LDL/HDL (test cod e = 2238) 2.80 RATIO COMPREHENSIVE METABOLIC [id number] 00:00:00* Test Item Value Reference Range Interpretation Comme nts GLUCOSE (test code = 2217) 234 MG/DL BUN (test code = 2208) 18 MG/DL CREATININE (test code = 2214) 0.61 MG/DL eGFR AMER. (test cod e = 61006) 108 ML/MIN/1.73 eGFR NON- AMER. (test code = 45437) 93 ML/MIN/1.73 CALC BUN/CREAT (test code = [...] (test code = 2219) 19 U/L LIPID [id number] 00:00:00* Test Item Value Reference Range Interpretation Comme nts CHOLESTEROL (test code = 2210) 199 MG/DL TRIGLYCERIDES (test code = 2232) 164 MG/DL HDL CHOLESTEROL (test code = 2220) 45 MG/DL CALC LDL CHOL (test code = 2237) 126 MG/DL RISK RATIO LDL/HDL (test cod e = 2238) 2.80 RATIO COMPREHENSIVE METABOLIC [id number] 00:00:00* Test Item Value Reference Range Interpretation Comme nts GLUCOSE (test code = 2217) 234 MG/DL BUN (test code = 2208) 18 MG/DL CREATININE (test code = 2214) 0.61 MG/DL eGFR AMER. (test cod e = 80564) 108 ML/MIN/1.73 eGFR NON- AMER. (test code = 33079) 93 ML/MIN/1.73 CALC BUN/CREAT (test code = [...] (test code = 2219) 19 U/L LIPID [id number] 00:00:00* Test Item Value Reference Range Interpretation Comme nts CHOLESTEROL (test code = 2210) 199 MG/DL TRIGLYCERIDES (test code = 2232) 164 MG/DL HDL CHOLESTEROL (test code = 2220) 45 MG/DL CALC LDL CHOL (test code = 2237) 126 MG/DL RISK RATIO LDL/HDL (test cod e = 2238) 2.80 RATIO COMPREHENSIVE METABOLIC [id number] 00:00:00* Test Item Value Reference Range Interpretation Comme nts GLUCOSE (test code = 2217) 234 MG/DL BUN (test code = 2208) 18 MG/DL CREATININE (test code = 2214) 0.61 MG/DL eGFR AMER. (test cod e = 93880) 108 ML/MIN/1.73 eGFR NON- AMER. (test code = 94686) 93 ML/MIN/1.73 CALC BUN/CREAT (test code = [...] (test code = 2219) 19 U/L LIPID [id number] 00:00:00* Test Item Value Reference Range Interpretation Comme nts CHOLESTEROL (test code = 2210) 199 MG/DL TRIGLYCERIDES (test code = 2232) 164 MG/DL HDL CHOLESTEROL (test code = 2220) 45 MG/DL CALC LDL CHOL (test code = 2237) 126 MG/DL RISK RATIO LDL/HDL (test cod e = 2238) 2.80 RATIO COMPREHENSIVE METABOLIC [id number] 00:00:00* Test Item Value Reference Range Interpretation Comme nts GLUCOSE (test code = 2217) 234 MG/DL BUN (test code = 2208) 18 MG/DL CREATININE (test code = 2214) 0.61 MG/DL eGFR AMER. (test cod e = 23886) 108 ML/MIN/1.73 eGFR NON- AMER. (test code = 81139) 93 ML/MIN/1.73 CALC BUN/CREAT (test code = [...] code = 2219) 19 U/L Toney RennerLIPID [id number] 00:00:00* Test Item Value Reference Range Interpretation Comme nts CHOLESTEROL (test code = 2210) 199 MG/DL TRIGLYCERIDES (test code = 2232) 164 MG/DL HDL CHOLESTEROL (test code = 2220) 45 MG/DL CALC LDL CHOL (test code = 2237) 126 MG/DL RISK RATIO LDL/HDL (test cod e = 2238) 2.80 RATIO Toney RennerHEMOGLOBIN [id number] 00:00:00* Test Item Value Reference Range Interpretation Comme nts HEMOGLOBIN A1c (test code = 24948) 9.3 % Toney Cowan ZurdoCOMPREHENSIVE METABOLIC [id number] 00:00:00* Test Item Value Reference Range Interpretation Comme nts GLUCOSE (test code = 2217) 189 MG/DL BUN (test code = 2208) 15 MG/DL CREATININE (test code = 2214) 0.55 MG/DL eGFR AMER. (test cod e = 53622) 112 ML/MIN/1.73 eGFR NON- AMER. (test code = 10377) 96 ML/MIN/1.73 CALC BUN/CREAT (test code = [...] (test code = 2219) 21 U/L Toney RennerCOMPREHENSIVE METABOLIC [id number] 00:00:00* Test Item Value Reference Range Interpretation Comme nts GLUCOSE (test code = 2217) 189 MG/DL BUN (test code = 2208) 15 MG/DL CREATININE (test code = 2214) 0.55 MG/DL eGFR AMER. (test cod e = 90146) 112 ML/MIN/1.73 eGFR NON- AMER. (test code = 52998) 96 ML/MIN/1.73 CALC BUN/CREAT (test code = [...] 2219) 21 U/L Toney Cowan AustinCBC W/AUTO [id number] 00:00:00* Test Item Value Reference Range Interpretation [...] code = 1015) 239 K/UL Toney RennerLIPID [id number] 00:00:00* Test Item Value Reference Range Interpretation Comme nts CHOLESTEROL (test code = 2210) 240 MG/DL TRIGLYCERIDES (test code = 2232) 137 MG/DL HDL CHOLESTEROL (test code = 2220) 48 MG/DL CALC LDL CHOL (test code = 2237) 165 MG/DL RISK RATIO LDL/HDL (test cod e = 2238) 3.43 RATIO Toney Cowan AustinMICROALBUMIN/CREATININE, RANDOM AND [id number] 00:00:00* Test Item Value Reference Range Interpretation Comme nts CREATININE, URINE, CONC. (te st code = 2072) 146.0 MG/DL ALBUMIN, URINE, RANDOM (test code = 84145) 1.0 MG/DL CALC ALBUMIN/CREAT, RND (baljinder t code = 15327) 7 MG/G Toney Cowan AustinCBC W/AUTO [id number] 00:00:00* Test Item Value Reference Range Interpretation [...] code = 1015) 239 K/UL Toney RennerLIPID [id number] 00:00:00* Test Item Value Reference Range Interpretation Comme nts CHOLESTEROL (test code = 2210) 240 MG/DL TRIGLYCERIDES (test code = 2232) 137 MG/DL HDL CHOLESTEROL (test code = 2220) 48 MG/DL CALC LDL CHOL (test code = 2237) 165 MG/DL RISK RATIO LDL/HDL (test cod e = 2238) 3.43 RATIO Toney RennerMICROALBUMIN/CREATININE, RANDOM AND [id number] 00:00:00* Test Item Value Reference Range Interpretation Comme nts CREATININE, URINE, CONC. (te st code = 2072) 146.0 MG/DL ALBUMIN, URINE, RANDOM (test code = 19956) 1.0 MG/DL CALC ALBUMIN/CREAT, RND (baljinder t code = 90680) 7 MG/G Toney RennerHEMOGLOBIN [id number] 00:00:00* Test Item Value Reference Range Interpretation Comme nts HEMOGLOBIN A1c (test code = 32770) 9.3 % Toney RennerCOMPREHENSIVE METABOLIC [id number] 00:00:00* Test Item Value Reference Range Interpretation Comme nts GLUCOSE (test code = 2217) 189 MG/DL BUN (test code = 2208) 15 MG/DL CREATININE (test code = 2214) 0.55 MG/DL eGFR AMER. (test cod e = 31627) 112 ML/MIN/1.73 eGFR NON- AMER. (test code = 49601) 96 ML/MIN/1.73 CALC BUN/CREAT (test code = [...] = 2219) 21 U/L Toney RennerCBC W/AUTO [id number] 00:00:00* Test Item Value Reference Range Interpretation [...] code = 1015) 239 K/UL Toney RennerLIPID [id number] 00:00:00* Test Item Value Reference Range Interpretation Comme nts CHOLESTEROL (test code = 2210) 240 MG/DL TRIGLYCERIDES (test code = 2232) 137 MG/DL HDL CHOLESTEROL (test code = 2220) 48 MG/DL CALC LDL CHOL (test code = 2237) 165 MG/DL RISK RATIO LDL/HDL (test cod e = 2238) 3.43 RATIO Toney RennerMICROALBUMIN/CREATININE, RANDOM AND [id number] 00:00:00* Test Item Value Reference Range Interpretation Comme nts CREATININE, URINE, CONC. (te st code = 2072) 146.0 MG/DL ALBUMIN, URINE, RANDOM (test code = 31182) 1.0 MG/DL CALC ALBUMIN/CREAT, RND (baljinder t code = 37810) 7 MG/G Toney RennerHEMOGLOBIN [id number] 00:00:00* Test Item Value Reference Range Interpretation Comme nts HEMOGLOBIN A1c (test code = 64406) 9.3 % Toney RennerCOMPREHENSIVE METABOLIC [id number] 00:00:00* Test Item Value Reference Range Interpretation Comme nts GLUCOSE (test code = 2217) 189 MG/DL BUN (test code = 2208) 15 MG/DL CREATININE (test code = 2214) 0.55 MG/DL eGFR AMER. (test cod e = 14820) 112 ML/MIN/1.73 eGFR NON- AMER. (test code = 03408) 96 ML/MIN/1.73 CALC BUN/CREAT (test code = [...] = 2219) 21 U/L Toney RennerCBC W/AUTO [id number] 00:00:00* Test Item Value Reference Range Interpretation [...] code = 1015) 239 K/UL Toney RennerLIPID [id number] 00:00:00* Test Item Value Reference Range Interpretation Comme nts CHOLESTEROL (test code = 2210) 240 MG/DL TRIGLYCERIDES (test code = 2232) 137 MG/DL HDL CHOLESTEROL (test code = 2220) 48 MG/DL CALC LDL CHOL (test code = 2237) 165 MG/DL RISK RATIO LDL/HDL (test cod e = 2238) 3.43 RATIO Toney RennerMICROALBUMIN/CREATININE, RANDOM AND [id number] 00:00:00* Test Item Value Reference Range Interpretation Comme nts CREATININE, URINE, CONC. (te st code = 2072) 146.0 MG/DL ALBUMIN, URINE, RANDOM (test code = 43849) 1.0 MG/DL CALC ALBUMIN/CREAT, RND (baljinder t code = 09498) 7 MG/G Toney RennerHEMOGLOBIN [id number] 00:00:00* Test Item Value Reference Range Interpretation Comme nts HEMOGLOBIN A1c (test code = 25023) 9.3 % Toney RennerCOMPREHENSIVE METABOLIC [id number] 00:00:00* Test Item Value Reference Range Interpretation Comme nts GLUCOSE (test code = 2217) 189 MG/DL BUN (test code = 2208) 15 MG/DL CREATININE (test code = 2214) 0.55 MG/DL eGFR AMER. (test cod e = 27689) 112 ML/MIN/1.73 eGFR NON- AMER. (test code = 57135) 96 ML/MIN/1.73 CALC BUN/CREAT (test code = [...] = 2219) 21 U/L Toney RennerCBC W/AUTO [id number] 00:00:00* Test Item Value Reference Range Interpretation [...] code = 1015) 239 K/UL Toney RennerLIPID [id number] 00:00:00* Test Item Value Reference Range Interpretation Comme nts CHOLESTEROL (test code = 2210) 240 MG/DL TRIGLYCERIDES (test code = 2232) 137 MG/DL HDL CHOLESTEROL (test code = 2220) 48 MG/DL CALC LDL CHOL (test code = 2237) 165 MG/DL RISK RATIO LDL/HDL (test cod e = 2238) 3.43 RATIO Toney RennerMICROALBUMIN/CREATININE, RANDOM AND [id number] 00:00:00* Test Item Value Reference Range Interpretation Comme nts CREATININE, URINE, CONC. (te st code = 2072) 146.0 MG/DL ALBUMIN, URINE, RANDOM (test code = 14091) 1.0 MG/DL CALC ALBUMIN/CREAT, RND (baljinder t code = 68697) 7 MG/G Toney RennerHEMOGLOBIN [id number] 00:00:00* Test Item Value Reference Range Interpretation Comme [facility] HEMOGLOBIN A1c (test code = 88274) 9.3 % Toney RennerCOMPREHENSIVE METABOLIC [id number] 00:00:00* Test Item Value Reference Range Interpretation Comme nts GLUCOSE (test code = 2217) 189 MG/DL BUN (test code = 2208) 15 MG/DL CREATININE (test code = 2214) 0.55 MG/DL eGFR AMER. (test cod e = 39558) 112 ML/MIN/1.73 eGFR NON- AMER. (test code = 07174) 96 ML/MIN/1.73 CALC BUN/CREAT (test code = [...] = 2219) 21 U/L Toney RennerCBC W/AUTO [id number] 00:00:00* Test Item Value Reference Range Interpretation [...] code = 1015) 239 K/UL Toney RennerLIPID [id number] 00:00:00* Test Item Value Reference Range Interpretation Comme nts CHOLESTEROL (test code = 2210) 240 MG/DL TRIGLYCERIDES (test code = 2232) 137 MG/DL HDL CHOLESTEROL (test code = 2220) 48 MG/DL CALC LDL CHOL (test code = 2237) 165 MG/DL RISK RATIO LDL/HDL (test cod e = 2238) 3.43 RATIO Toney RennerMICROALBUMIN/CREATININE, RANDOM AND [id number] 00:00:00* Test Item Value Reference Range Interpretation Comme nts CREATININE, URINE, CONC. (te st code = 2072) 146.0 MG/DL ALBUMIN, URINE, RANDOM (test code = 55155) 1.0 MG/DL CALC ALBUMIN/CREAT, RND (baljinder t code = 86225) 7 MG/G Toney Cowan AustinHEMOGLOBIN [id number] 00:00:00* Test Item Value Reference Range Interpretation Comme nts HEMOGLOBIN A1c (test code = 80345) 9.3 % Toney RennerHEMOGLOBIN [id number] 00:00:00* Test Item Value Reference Range Interpretation Comme nts HEMOGLOBIN A1c (test code = 71311) 9.3 % Toney Cowan ZurdoCOMPREHENSIVE METABOLIC [id number] 00:00:00* Test Item Value Reference Range Interpretation Comme nts GLUCOSE (test code = 2217) 189 MG/DL BUN (test code = 2208) 15 MG/DL CREATININE (test code = 2214) 0.55 MG/DL eGFR AMER. (test cod e = 99820) 112 ML/MIN/1.73 eGFR NON- AMER. (test code = 53623) 96 ML/MIN/1.73 CALC BUN/CREAT (test code = [...] 2219) 21 U/L Toney Camryn ZurdoCBC W/AUTO [id number] 00:00:00* Test Item Value Reference Range Interpretation [...] code = 1015) 239 K/UL Toney RennerLIPID [id number] 00:00:00* Test Item Value Reference Range Interpretation Comme nts CHOLESTEROL (test code = 2210) 240 MG/DL TRIGLYCERIDES (test code = 2232) 137 MG/DL HDL CHOLESTEROL (test code = 2220) 48 MG/DL CALC LDL CHOL (test code = 2237) 165 MG/DL RISK RATIO LDL/HDL (test cod e = 2238) 3.43 RATIO Toney RennerMICROALBUMIN/CREATININE, RANDOM AND [id number] 00:00:00* Test Item Value Reference Range Interpretation Comme nts CREATININE, URINE, CONC. (te st code = 2072) 146.0 MG/DL ALBUMIN, URINE, RANDOM (test code = 99190) 1.0 MG/DL CALC ALBUMIN/CREAT, RND (baljinder t code = 73168) 7 MG/G Toney RennerHEMOGLOBIN [id number] 00:00:00* Test Item Value Reference Range Interpretation Comme nts HEMOGLOBIN A1c (test code = 46480) 9.3 % COMPREHENSIVE METABOLIC [id number] 00:00:00* Test Item Value Reference Range Interpretation Comme nts GLUCOSE (test code = 2217) 189 MG/DL BUN (test code = 2208) 15 MG/DL CREATININE (test code = 2214) 0.55 MG/DL eGFR AMER. (test cod e = 92884) 112 ML/MIN/1.73 eGFR NON- AMER. (test code = 82767) 96 ML/MIN/1.73 CALC BUN/CREAT (test code = [...] code = 2219) 21 U/L CBC W/AUTO [id number] 00:00:00* Test Item Value Reference Range Interpretation [...] (test code = 1015) 239 K/UL LIPID [id number] 00:00:00* Test Item Value Reference Range Interpretation Comme nts CHOLESTEROL (test code = 2210) 240 MG/DL TRIGLYCERIDES (test code = 2232) 137 MG/DL HDL CHOLESTEROL (test code = 2220) 48 MG/DL CALC LDL CHOL (test code = 2237) 165 MG/DL RISK RATIO LDL/HDL (test cod e = 2238) 3.43 RATIO MICROALBUMIN/CREATININE, RANDOM AND [id number] 00:00:00* Test Item Value Reference Range Interpretation Comme nts CREATININE, URINE, CONC. (te st code = 2072) 146.0 MG/DL ALBUMIN, URINE, RANDOM (test code = 54432) 1.0 MG/DL CALC ALBUMIN/CREAT, RND (baljinder t code = 30283) 7 MG/G HEMOGLOBIN [id number] 00:00:00* Test Item Value Reference Range Interpretation Comme nts HEMOGLOBIN A1c (test code = 33136) 9.3 % COMPREHENSIVE METABOLIC [id number] 00:00:00* Test Item Value Reference Range Interpretation Comme nts GLUCOSE (test code = 2217) 189 MG/DL BUN (test code = 2208) 15 MG/DL CREATININE (test code = 2214) 0.55 MG/DL eGFR AMER. (test cod e = 32541) 112 ML/MIN/1.73 eGFR NON- AMER. (test code = 78241) 96 ML/MIN/1.73 CALC BUN/CREAT (test code = [...] code = 2219) 21 U/L CBC W/AUTO [id number] 00:00:00* Test Item Value Reference Range Interpretation [...] (test code = 1015) 239 K/UL LIPID [id number] 00:00:00* Test Item Value Reference Range Interpretation Comme nts CHOLESTEROL (test code = 2210) 240 MG/DL TRIGLYCERIDES (test code = 2232) 137 MG/DL HDL CHOLESTEROL (test code = 2220) 48 MG/DL CALC LDL CHOL (test code = 2237) 165 MG/DL RISK RATIO LDL/HDL (test cod e = 2238) 3.43 RATIO MICROALBUMIN/CREATININE, RANDOM AND [id number] 00:00:00* Test Item Value Reference Range Interpretation Comme nts CREATININE, URINE, CONC. (te st code = 2072) 146.0 MG/DL ALBUMIN, URINE, RANDOM (test code = 39282) 1.0 MG/DL CALC ALBUMIN/CREAT, RND (baljinder t code = 54998) 7 MG/G HEMOGLOBIN [id number] 00:00:00* Test Item Value Reference Range Interpretation Comme nts HEMOGLOBIN A1c (test code = 32513) 9.3 % COMPREHENSIVE METABOLIC [id number] 00:00:00* Test Item Value Reference Range Interpretation Comme nts GLUCOSE (test code = 2217) 189 MG/DL BUN (test code = 2208) 15 MG/DL CREATININE (test code = 2214) 0.55 MG/DL eGFR AMER. (test cod e = 38058) 112 ML/MIN/1.73 eGFR NON- AMER. (test code = 40792) 96 ML/MIN/1.73 CALC BUN/CREAT (test code = [...] code = 2219) 21 U/L CBC W/AUTO [id number] 00:00:00* Test Item Value Reference Range Interpretation [...] (test code = 1015) 239 K/UL LIPID [id number] 00:00:00* Test Item Value Reference Range Interpretation Comme nts CHOLESTEROL (test code = 2210) 240 MG/DL TRIGLYCERIDES (test code = 2232) 137 MG/DL HDL CHOLESTEROL (test code = 2220) 48 MG/DL CALC LDL CHOL (test code = 2237) 165 MG/DL RISK RATIO LDL/HDL (test cod e = 2238) 3.43 RATIO MICROALBUMIN/CREATININE, RANDOM AND [id number] 00:00:00* Test Item Value Reference Range Interpretation Comme nts CREATININE, URINE, CONC. (te st code = 2072) 146.0 MG/DL ALBUMIN, URINE, RANDOM (test code = 16459) 1.0 MG/DL CALC ALBUMIN/CREAT, RND (baljinder t code = 10749) 7 MG/G HEMOGLOBIN [id number] 00:00:00* Test Item Value Reference Range Interpretation Comme nts HEMOGLOBIN A1c (test code = 86907) 9.3 % COMPREHENSIVE METABOLIC [id number] 00:00:00* Test Item Value Reference Range Interpretation Comme nts GLUCOSE (test code = 2217) 189 MG/DL BUN (test code = 2208) 15 MG/DL CREATININE (test code = 2214) 0.55 MG/DL eGFR AMER. (test cod e = 52779) 112 ML/MIN/1.73 eGFR NON- AMER. (test code = 97654) 96 ML/MIN/1.73 CALC BUN/CREAT (test code = [...] code = 2219) 21 U/L CBC W/AUTO [id number] 00:00:00* Test Item Value Reference Range Interpretation [...] (test code = 1015) 239 K/UL HEMOGLOBIN [id number] 00:00:00* Test Item Value Reference Range Interpretation Comme nts HEMOGLOBIN A1c (test code = 74187) 9.3 % LIPID [id number] 00:00:00* Test Item Value Reference Range Interpretation Comme nts CHOLESTEROL (test code = 2210) 240 MG/DL TRIGLYCERIDES (test code = 2232) 137 MG/DL HDL CHOLESTEROL (test code = 2220) 48 MG/DL CALC LDL CHOL (test code = 2237) 165 MG/DL RISK RATIO LDL/HDL (test cod e = 2238) 3.43 RATIO MICROALBUMIN/CREATININE, RANDOM AND [id number] 00:00:00* Test Item Value Reference Range Interpretation Comme nts CREATININE, URINE, CONC. (te st code = 2072) 146.0 MG/DL ALBUMIN, URINE, RANDOM (test code = 80048) 1.0 MG/DL CALC ALBUMIN/CREAT, RND (baljinder t code = 98847) 7 MG/G COMPREHENSIVE METABOLIC [id number] 00:00:00* Test Item Value Reference Range Interpretation Comme nts GLUCOSE (test code = 2217) 189 MG/DL BUN (test code = 2208) 15 MG/DL CREATININE (test code = 2214) 0.55 MG/DL eGFR AMER. (test cod e = 91869) 112 ML/MIN/1.73 eGFR NON- AMER. (test code = 94631) 96 ML/MIN/1.73 CALC BUN/CREAT (test code = [...] code = 2219) 21 U/L CBC W/AUTO [id number] 00:00:00* Test Item Value Reference Range Interpretation [...] (test code = 1015) 239 K/UL HEMOGLOBIN [id number] 00:00:00* Test Item Value Reference Range Interpretation Comme nts HEMOGLOBIN A1c (test code = 83009) 9.3 % COMPREHENSIVE METABOLIC [id number] 00:00:00* Test Item Value Reference Range Interpretation Comme nts GLUCOSE (test code = 2217) 189 MG/DL BUN (test code = 2208) 15 MG/DL CREATININE (test code = 2214) 0.55 MG/DL eGFR AMER. (test cod e = 12591) 112 ML/MIN/1.73 eGFR NON- AMER. (test code = 07186) 96 ML/MIN/1.73 CALC BUN/CREAT (test code = [...] (test code = 2219) 21 U/L LIPID [id number] 00:00:00* Test Item Value Reference Range Interpretation Comme nts CHOLESTEROL (test code = 2210) 240 MG/DL TRIGLYCERIDES (test code = 2232) 137 MG/DL HDL CHOLESTEROL (test code = 2220) 48 MG/DL CALC LDL CHOL (test code = 2237) 165 MG/DL RISK RATIO LDL/HDL (test cod e = 2238) 3.43 RATIO CBC W/AUTO [id number] 00:00:00* Test Item Value Reference Range Interpretation [...] (test code = 1015) 239 K/UL LIPID [id number] 00:00:00* Test Item Value Reference Range Interpretation Comme nts CHOLESTEROL (test code = 2210) 240 MG/DL TRIGLYCERIDES (test code = 2232) 137 MG/DL HDL CHOLESTEROL (test code = 2220) 48 MG/DL CALC LDL CHOL (test code = 2237) 165 MG/DL RISK RATIO LDL/HDL (test cod e = 2238) 3.43 RATIO MICROALBUMIN/CREATININE, RANDOM AND [id number] 00:00:00* Test Item Value Reference Range Interpretation Comme nts CREATININE, URINE, CONC. (te st code = 2072) 146.0 MG/DL ALBUMIN, URINE, RANDOM (test code = 16168) 1.0 MG/DL CALC ALBUMIN/CREAT, RND (baljinder t code = 47343) 7 MG/G MICROALBUMIN/CREATININE, RANDOM AND [id number] 00:00:00* Test Item Value Reference Range Interpretation Comme nts CREATININE, URINE, CONC. (te st code = 2072) 146.0 MG/DL ALBUMIN, URINE, RANDOM (test code = 26710) 1.0 MG/DL CALC ALBUMIN/CREAT, RND (baljinder t code = 43246) 7 MG/G HEMOGLOBIN [id number] 00:00:00* Test Item Value Reference Range Interpretation Comme nts HEMOGLOBIN A1c (test code = 94251) 9.3 % COMPREHENSIVE METABOLIC [id number] 00:00:00* Test Item Value Reference Range Interpretation Comme nts GLUCOSE (test code = 2217) 189 MG/DL BUN (test code = 2208) 15 MG/DL CREATININE (test code = 2214) 0.55 MG/DL eGFR AMER. (test cod e = 26750) 112 ML/MIN/1.73 eGFR NON- AMER. (test code = 81272) 96 ML/MIN/1.73 CALC BUN/CREAT (test code = [...] code = 2219) 21 U/L CBC W/AUTO [id number] 00:00:00* Test Item Value Reference Range Interpretation [...] (test code = 1015) 239 K/UL LIPID [id number] 00:00:00* Test Item Value Reference Range Interpretation Comme nts CHOLESTEROL (test code = 2210) 240 MG/DL TRIGLYCERIDES (test code = 2232) 137 MG/DL HDL CHOLESTEROL (test code = 2220) 48 MG/DL CALC LDL CHOL (test code = 2237) 165 MG/DL RISK RATIO LDL/HDL (test cod e = 2238) 3.43 RATIO MICROALBUMIN/CREATININE, RANDOM AND [id number] 00:00:00* Test Item Value Reference Range Interpretation Comme nts CREATININE, URINE, CONC. (te st code = 2072) 146.0 MG/DL ALBUMIN, URINE, RANDOM (test code = 38511) 1.0 MG/DL CALC ALBUMIN/CREAT, RND (baljinder t code = 15113) 7 MG/G HEMOGLOBIN [id number] 00:00:00* Test Item Value Reference Range Interpretation Comme nts HEMOGLOBIN A1c (test code = 10146) 9.3 % COMPREHENSIVE METABOLIC [id number] 00:00:00* Test Item Value Reference Range Interpretation Comme nts GLUCOSE (test code = 2217) 189 MG/DL BUN (test code = 2208) 15 MG/DL CREATININE (test code = 2214) 0.55 MG/DL eGFR AMER. (test cod e = 91559) 112 ML/MIN/1.73 eGFR NON- AMER. (test code = 98636) 96 ML/MIN/1.73 CALC BUN/CREAT (test code = [...] code = 2219) 21 U/L CBC W/AUTO [id number] 00:00:00* Test Item Value Reference Range Interpretation [...] (test code = 1015) 239 K/UL LIPID [id number] 00:00:00* Test Item Value Reference Range Interpretation Comme nts CHOLESTEROL (test code = 2210) 240 MG/DL TRIGLYCERIDES (test code = 2232) 137 MG/DL HDL CHOLESTEROL (test code = 2220) 48 MG/DL CALC LDL CHOL (test code = 2237) 165 MG/DL RISK RATIO LDL/HDL (test cod e = 2238) 3.43 RATIO MICROALBUMIN/CREATININE, RANDOM AND [id number] 00:00:00* Test Item Value Reference Range Interpretation Comme nts CREATININE, URINE, CONC. (te st code = 2072) 146.0 MG/DL ALBUMIN, URINE, RANDOM (test code = 07047) 1.0 MG/DL CALC ALBUMIN/CREAT, RND (baljinder t code = 86420) 7 MG/G HEMOGLOBIN [id number] 00:00:00* Test Item Value Reference Range Interpretation Comme nts HEMOGLOBIN A1c (test code = 90532) 9.3 % COMPREHENSIVE METABOLIC [id number] 00:00:00* Test Item Value Reference Range Interpretation Comme nts GLUCOSE (test code = 2217) 189 MG/DL BUN (test code = 2208) 15 MG/DL CREATININE (test code = 2214) 0.55 MG/DL eGFR AMER. (test cod e = 29071) 112 ML/MIN/1.73 eGFR NON- AMER. (test code = 37266) 96 ML/MIN/1.73 CALC BUN/CREAT (test code = [...] code = 2219) 21 U/L CBC W/AUTO [id number] 00:00:00* Test Item Value Reference Range Interpretation [...] (test code = 1015) 239 K/UL LIPID [id number] 00:00:00* Test Item Value Reference Range Interpretation Comme nts CHOLESTEROL (test code = 2210) 240 MG/DL TRIGLYCERIDES (test code = 2232) 137 MG/DL HDL CHOLESTEROL (test code = 2220) 48 MG/DL CALC LDL CHOL (test code = 2237) 165 MG/DL RISK RATIO LDL/HDL (test cod e = 2238) 3.43 RATIO MICROALBUMIN/CREATININE, RANDOM AND [id number] 00:00:00* Test Item Value Reference Range Interpretation Comme nts CREATININE, URINE, CONC. (te st code = 2072) 146.0 MG/DL ALBUMIN, URINE, RANDOM (test code = 45072) 1.0 MG/DL CALC ALBUMIN/CREAT, RND (baljinder t code = 64991) 7 MG/G HEMOGLOBIN [id number] 00:00:00* Test Item Value Reference Range Interpretation Comme nts HEMOGLOBIN A1c (test code = 12888) 9.3 % Toney RennerCOMPREHENSIVE METABOLIC [id number] 00:00:00* Test Item Value Reference Range Interpretation Comme nts GLUCOSE (test code = 2217) 189 MG/DL BUN (test code = 2208) 15 MG/DL CREATININE (test code = 2214) 0.55 MG/DL eGFR AMER. (test cod e = 81718) 112 ML/MIN/1.73 eGFR NON- AMER. (test code = 63093) 96 ML/MIN/1.73 CALC BUN/CREAT (test code = [...] (test code = 2219) 21 U/L Toney RennerC W/AUTO [id number] 00:00:00* Test Item Value Reference Range Interpretation [...] code = 1015) 239 K/UL Toney RennerLIPID [id number] 00:00:00* Test Item Value Reference Range Interpretation Comme nts CHOLESTEROL (test code = 2210) 240 MG/DL TRIGLYCERIDES (test code = 2232) 137 MG/DL HDL CHOLESTEROL (test code = 2220) 48 MG/DL CALC LDL CHOL (test code = 2237) 165 MG/DL RISK RATIO LDL/HDL (test cod e = 2238) 3.43 RATIO Toney RennerMICROALBUMIN/CREATININE, RANDOM AND [id number] 00:00:00* Test Item Value Reference Range Interpretation Comme nts CREATININE, URINE, CONC. (te st code = 2072) 146.0 MG/DL ALBUMIN, URINE, RANDOM (test code = 04594) 1.0 MG/DL CALC ALBUMIN/CREAT, RND (baljidner t code = 13136) 7 MG/G Toney Cowan [id number] 06:37:00* Test Item Value Reference Range Interpretation Comme nts GLUBED (test code = GLUBED) 168 mg/dL 70-105 H Performed by cer tified process line operator at [facility] [id number] 20:57:00* Test Item Value Reference Range Interpretation Comme nts GLUBED (test code = GLUBED) 158 mg/dL 70-105 H Performed by cer tified process line operator at [facility] [id number] 16:41:00* Test Item Value Reference Range Interpretation Comme nts GLUBED (test code = GLUBED) 136 mg/dL 70-105 H Performed by cer tified process line operator at [facility] [id number] 11:35:00* Test Item Value Reference Range Interpretation Comme nts GLUBED (test code = GLUBED) 192 mg/dL 70-105 H Performed by cer tified process line operator at [facility]2019-04-11 07:44:00* Test Item Value Reference Range Interpretation Comme nts GLUBED (test code = GLUBED) 145 mg/dL 70-105 H Performed by cer tified process line operator at [facility]2019-04-10 21:40:00* Test Item Value Reference Range Interpretation Comme nts GLUBED (test code = GLUBED) 159 mg/dL 70-105 H Performed by cer tified process line operator at [facility]2019-04-10 16:47:00* Test Item Value Reference Range Interpretation Comme nts GLUBED (test code = GLUBED) 169 mg/dL 70-105 H Performed by cer tified process line operator at [facility]2019-04-10 11:49:00* Test Item Value Reference Range Interpretation Comme nts GLUBED (test code = GLUBED) 137 mg/dL 70-105 H Performed by cer tified process line operator at [facility] - CT ABD PELVIS W/O [id number] 15:41:00Name: DANIELLE BROWN [facility] : 1950 Age/S: 68 / F [address] [facility] Unit #: [id number] Loc: [place], [place] [address] Phys: Jordan Kraus Jr, MD Acct: [id number] Dis Date: Status: REG ER PHONE #: [phone] Exam Date: 02/02/2019 1449 FAX #: [phone] Reason: ABD APIN EXAMS: CPT CODE: [id number] CT ABD PELVIS W/O CONT 20673 - CT ABD PELVIS W/O CONT CLINICAL [...] of the solid and hollow visceral organs withoutthe use of IV contrast. Dependent atelectasis is [...] atrophic. There is evidence of cortical scarring withinthe right mid kidney is. In addition, there is marked cortical thinning within the mid left kidney.Cortical lobular prominence at the upper pole of [...] 1 Signed Report (CONTINUED) Name: DANIELLE BROWN [facility] : 1950 Age/S: 68 / F [address] [facility] Unit #: [id number] Loc: [place] [address] Phys: Jordan Kraus Jr, MD Acct:[id number] Dis Date: Status: REG ER PHONE #: [phone] Exam Date: 02/02/2019 1443 FAX #: [phone] Reason: ABD APIN EXAMS: CPT CODE: [id number] CT ABD PELVIS W/O CONT 24779 (Continued) calcifi cations (series 300, image #[id number]; series #2 image [...] area is adjacent to the transverse colon. Findi ngs could represent epiploic appendagitis, mesenteric infarct or [...] process, however, is not excluded. Other nonemergent findingsdescribed above. PAGE 2 Signed Report (CONTINUED) Name: DANIELLE BROWN [facility] : 1950 Age/S: 68 / F [address] [facility] Unit #: [id number] Loc: [place] [address] Phys: Jordan Kraus Jr, MD Acct: [id number] Dis Date: Status: REG ER PHONE #: [phone] Exam Date: 02/02/2019 1440 FAX #: [phone] Reason: ABD APIN EXAMS: CPT CODE: [id number] CT ABD PELVIS W/O CONT 15660 (Continued) at 1541 Reported and signed by: Liz Rutledge MD CC: Reagan Hirsch Technologist:Yared Castle RT (R) CT (R) CTDI: 10.54 DLP: 573.56 Trnscb Date/Time: 02/02/2019 (1541) [id number] Orig Print D/T: S: 02/02/2019 (4987) CTDI: 10.54 DLP: 573.56 PAGE 3 Signed ReportURINALYSIS W REFLEX [id number] 15:22:00* Test Item Value Reference Range Interpretation [...] MUCU) 2+ /hpf NEG,FEW A B-TYPE NATRIURETIC [id number] 15:02:00* Test Item Value Reference Range Interpretation Comme nts B-TYPE NATRIURETIC PEPTIDE ( test code = BNP) 34.8 PG/ML 0-100 N BASIC METABOLIC [id number] 14:51:00* Test Item Value Reference Range Interpretation [...] > or = 60 ml/min/1.73M2IF PATIENT IS -ETHIOPIAN, MULTIPLY REPORTED RESULT BY1.21. CREATININE (test code = CREAT) 0.70 mg/dL 0.51-0.95 N CALCIUM (test code = CA) 9.2 mg/dL 8.5-10.1 N [id number] 14:51:00* Test Item Value Reference Range Interpretation Comme nts LIPASE (test code = LIP) 44 U/L 73-393 L [id number] 14:51:00* Test Item Value Reference Range Interpretation Comme nts TROPONIN-I (test code = TROPI) <0.015 ng/ml 0.00-0.045 N GUIDELINES: 0.08 - 0.09 Indeterminate0.10 Risk Stratification Limit: Suggest sequential testing0.60 - 1.50 AMI cutoff: Myocardial Injury by WHO criteria BASIC METABOLIC [id number] 14:49:00* Test Item Value Reference Range Interpretation [...] > or = 60 ml/min/1.73M2IF PATIENT IS -ETHIOPIAN, MULTIPLY REPORTED RESULT BY1.21. CREATININE (test code = CREAT) 0.70 mg/dL 0.51-0.95 N CALCIUM (test code = CA) 9.2 mg/dL 8.5-10.1 N [id number] 14:49:00* Test Item Value Reference Range Interpretation Comme [facility] LIPASE (test code = LIP) 44 U/L 73-393 L [id number] 14:49:00* Test Item Value Reference Range Interpretation Comme [facility] TROPONIN-I (test code = TROPI) ng/ml 0.00-0.045 PROTHROMBIN [id number] 14:48:00* Test Item Value Reference Range Interpretation [...] patients with mechanicalprosthetic heart valves. THROMBOPLASTIN TIME [id number] 14:48:00* Test Item Value Reference Range Interpretation Comme [facility] THROMBOPLASTIN TIME PARTIAL (test code = PTT) 34.5 seconds 22.8-34.4 H CBC W/AUTO [id number] 14:33:00* Test Item Value Reference Range Interpretation Comme [facility] WHITE BLOOD CELL (test code = WBC) [...] K/mm3 0.0-0.1 N - XR CHEST 1 [id number] 14:25:00[facility] Name: DANIELLE BROWN [address] [place] [address] Phys: Jordan Kraus Jr, MD [place], [place] [address] : 1950 Age: 68 Sex: F Acct: [id number] Loc: [place] PHONE #: [phone] Exam Date: 02/02/2019 Status: PRE ER FAX #: [phone] Radiology No: Unit No: [id number] Reason: chest pain EXAMS: CPT CODE: [id number] XR CHEST 1 V 21207 Fluoro Time: DAP (Gy m2): Air Kerma [...] present. IMPRESSION: No acute cardiopulmonary abnormality. at 1428 Reported and signed by: PRETTY SHARPE M.D. CC: Reagan Hirsch Technologist: Remy Barrios RT (R) Transcribed Date/Time: 02/02/2019 (5326) t.[email or web address] Orig Print D/T: S: 02/02/2019 (3705) PAGE 1 Signed ReportHEMOGLOBIN [id number] 00:00:00* Test Item Value Reference Range Interpretation Comme nts HEMOGLOBIN A1c (test code = 76481) 6.4 % Toney Cowan AustinLIPID [id number] 00:00:00* Test Item Value Reference Range Interpretation Comme nts CHOLESTEROL (test code = 2210) 195 MG/DL TRIGLYCERIDES (test code = 2232) 241 MG/DL HDL CHOLESTEROL (test code = 2220) 44 MG/DL CALC LDL CHOL (test code = 2237) 103 MG/DL RISK RATIO LDL/HDL (test cod e = 2238) 2.34 RATIO Toney Cowan AustinCOMPREHENSIVE METABOLIC [id number] 00:00:00* Test Item Value Reference Range Interpretation Comme nts GLUCOSE (test code = 2217) 138 MG/DL BUN (test code = 2208) 21 MG/DL CREATININE (test code = 2214) 0.59 MG/DL eGFR AMER. (test cod e = 48077) 110 ML/MIN/1.73 eGFR NON- AMER. (test code = 55703) 95 ML/MIN/1.73 CALC BUN/CREAT (test code = [...] code = 2219) 14 U/L Toney Cowan AustinLIPID [id number] 00:00:00* Test Item Value Reference Range Interpretation Comme nts CHOLESTEROL (test code = 2210) 195 MG/DL TRIGLYCERIDES (test code = 2232) 241 MG/DL HDL CHOLESTEROL (test code = 2220) 44 MG/DL CALC LDL CHOL (test code = 2237) 103 MG/DL RISK RATIO LDL/HDL (test cod e = 2238) 2.34 RATIO Toney RennerCOMPREHENSIVE METABOLIC [id number] 00:00:00* Test Item Value Reference Range Interpretation Comme nts GLUCOSE (test code = 2217) 138 MG/DL BUN (test code = 2208) 21 MG/DL CREATININE (test code = 2214) 0.59 MG/DL eGFR AMER. (test cod e = 76604) 110 ML/MIN/1.73 eGFR NON- AMER. (test code = 13954) 95 ML/MIN/1.73 CALC BUN/CREAT (test code = [...] code = 2219) 14 U/L Toney RennerHEMOGLOBIN [id number] 00:00:00* Test Item Value Reference Range Interpretation Comme nts HEMOGLOBIN A1c (test code = 83609) 6.4 % Toney RennerLIPID [id number] 00:00:00* Test Item Value Reference Range Interpretation Comme nts CHOLESTEROL (test code = 2210) 195 MG/DL TRIGLYCERIDES (test code = 2232) 241 MG/DL HDL CHOLESTEROL (test code = 2220) 44 MG/DL CALC LDL CHOL (test code = 2237) 103 MG/DL RISK RATIO LDL/HDL (test cod e = 2238) 2.34 RATIO Toney RennerCOMPREHENSIVE METABOLIC [id number] 00:00:00* Test Item Value Reference Range Interpretation Comme nts GLUCOSE (test code = 2217) 138 MG/DL BUN (test code = 2208) 21 MG/DL CREATININE (test code = 2214) 0.59 MG/DL eGFR AMER. (test cod e = 51469) 110 ML/MIN/1.73 eGFR NON- AMER. (test code = 75640) 95 ML/MIN/1.73 CALC BUN/CREAT (test code = [...] code = 2219) 14 U/L Toney RennerHEMOGLOBIN [id number] 00:00:00* Test Item Value Reference Range Interpretation Comme kp HEMOGLOBIN A1c (test code = 41003) 6.4 % Toney Cowan AustinLIPID [id number] 00:00:00* Test Item Value Reference Range Interpretation Comme nts CHOLESTEROL (test code = 2210) 195 MG/DL TRIGLYCERIDES (test code = 2232) 241 MG/DL HDL CHOLESTEROL (test code = 2220) 44 MG/DL CALC LDL CHOL (test code = 2237) 103 MG/DL RISK RATIO LDL/HDL (test cod e = 2238) 2.34 RATIO Toney RennerCOMPREHENSIVE METABOLIC [id number] 00:00:00* Test Item Value Reference Range Interpretation Comme nts GLUCOSE (test code = 2217) 138 MG/DL BUN (test code = 2208) 21 MG/DL CREATININE (test code = 2214) 0.59 MG/DL eGFR AMER. (test cod e = 72242) 110 ML/MIN/1.73 eGFR NON- AMER. (test code = 19116) 95 ML/MIN/1.73 CALC BUN/CREAT (test code = [...] code = 2219) 14 U/L Toney RennerHEMOGLOBIN [id number] 00:00:00* Test Item Value Reference Range Interpretation Comme nts HEMOGLOBIN A1c (test code = 83673) 6.4 % Toney RennerLIPID [id number] 00:00:00* Test Item Value Reference Range Interpretation Comme nts CHOLESTEROL (test code = 2210) 195 MG/DL TRIGLYCERIDES (test code = 2232) 241 MG/DL HDL CHOLESTEROL (test code = 2220) 44 MG/DL CALC LDL CHOL (test code = 2237) 103 MG/DL RISK RATIO LDL/HDL (test cod e = 2238) 2.34 RATIO Toney RennerCOMPREHENSIVE METABOLIC [id number] 00:00:00* Test Item Value Reference Range Interpretation Comme nts GLUCOSE (test code = 2217) 138 MG/DL BUN (test code = 2208) 21 MG/DL CREATININE (test code = 2214) 0.59 MG/DL eGFR AMER. (test cod e = 94364) 110 ML/MIN/1.73 eGFR NON- AMER. (test code = 75658) 95 ML/MIN/1.73 CALC BUN/CREAT (test code = [...] code = 2219) 14 U/L Toney RennerHEMOGLOBIN [id number] 00:00:00* Test Item Value Reference Range Interpretation Comme nts HEMOGLOBIN A1c (test code = 91128) 6.4 % Toney RennerLIPID [id number] 00:00:00* Test Item Value Reference Range Interpretation Comme nts CHOLESTEROL (test code = 2210) 195 MG/DL TRIGLYCERIDES (test code = 2232) 241 MG/DL HDL CHOLESTEROL (test code = 2220) 44 MG/DL CALC LDL CHOL (test code = 2237) 103 MG/DL RISK RATIO LDL/HDL (test cod e = 2238) 2.34 RATIO Toney RennerCOMPREHENSIVE METABOLIC [id number] 00:00:00* Test Item Value Reference Range Interpretation Comme nts GLUCOSE (test code = 2217) 138 MG/DL BUN (test code = 2208) 21 MG/DL CREATININE (test code = 2214) 0.59 MG/DL eGFR AMER. (test cod e = 90068) 110 ML/MIN/1.73 eGFR NON- AMER. (test code = 72035) 95 ML/MIN/1.73 CALC BUN/CREAT (test code = [...] code = 2219) 14 U/L Toney RennerHEMOGLOBIN [id number] 00:00:00* Test Item Value Reference Range Interpretation Comme nts HEMOGLOBIN A1c (test code = 64035) 6.4 % Toney Cowan AustinHEMOGLOBIN [id number] 00:00:00* Test Item Value Reference Range Interpretation Comme nts HEMOGLOBIN A1c (test code = 00044) 6.4 % Toney RennerLIPID [id number] 00:00:00* Test Item Value Reference Range Interpretation Comme nts CHOLESTEROL (test code = 2210) 195 MG/DL TRIGLYCERIDES (test code = 2232) 241 MG/DL HDL CHOLESTEROL (test code = 2220) 44 MG/DL CALC LDL CHOL (test code = 2237) 103 MG/DL RISK RATIO LDL/HDL (test cod e = 2238) 2.34 RATIO Toney RennerCOMPREHENSIVE METABOLIC [id number] 00:00:00* Test Item Value Reference Range Interpretation Comme nts GLUCOSE (test code = 2217) 138 MG/DL BUN (test code = 2208) 21 MG/DL CREATININE (test code = 2214) 0.59 MG/DL eGFR AMER. (test cod e = 73897) 110 ML/MIN/1.73 eGFR NON- AMER. (test code = 98942) 95 ML/MIN/1.73 CALC BUN/CREAT (test code = [...] code = 2219) 14 U/L Toney RennerHEMOGLOBIN [id number] 00:00:00* Test Item Value Reference Range Interpretation Comme nts HEMOGLOBIN A1c (test code = 20890) 6.4 % LIPID [id number] 00:00:00* Test Item Value Reference Range Interpretation Comme nts CHOLESTEROL (test code = 2210) 195 MG/DL TRIGLYCERIDES (test code = 2232) 241 MG/DL HDL CHOLESTEROL (test code = 2220) 44 MG/DL CALC LDL CHOL (test code = 2237) 103 MG/DL RISK RATIO LDL/HDL (test cod e = 2238) 2.34 RATIO COMPREHENSIVE METABOLIC [id number] 00:00:00* Test Item Value Reference Range Interpretation Comme nts GLUCOSE (test code = 221) 138 MG/DL BUN (test code = 2208) 21 MG/DL CREATININE (test code = 2214) 0.59 MG/DL eGFR AMER. (test cod e = 25158) 110 ML/MIN/1.73 eGFR NON- AMER. (test code = 72410) 95 ML/MIN/1.73 CALC BUN/CREAT (test code = [...] (test code = 2219) 14 U/L HEMOGLOBIN [id number] 00:00:00* Test Item Value Reference Range Interpretation Comme nts HEMOGLOBIN A1c (test code = 69841) 6.4 % LIPID [id number] 00:00:00* Test Item Value Reference Range Interpretation Comme nts CHOLESTEROL (test code = 2210) 195 MG/DL TRIGLYCERIDES (test code = 2232) 241 MG/DL HDL CHOLESTEROL (test code = 2220) 44 MG/DL CALC LDL CHOL (test code = 2237) 103 MG/DL RISK RATIO LDL/HDL (test cod e = 2238) 2.34 RATIO COMPREHENSIVE METABOLIC [id number] 00:00:00* Test Item Value Reference Range Interpretation Comme nts GLUCOSE (test code = 2217) 138 MG/DL BUN (test code = 2207) 21 MG/DL CREATININE (test code = 2214) 0.59 MG/DL eGFR AMER. (test cod e = 31885) 110 ML/MIN/1.73 eGFR NON- AMER. (test code = 65683) 95 ML/MIN/1.73 CALC BUN/CREAT (test code = [...] <0.2 MG/DL ALKALINE PHOSPHATASE (test code = 220) 88 U/L AST (test code = 221) 16 U/L ALT (test code = 2219) 14 U/L HEMOGLOBIN [id number] 00:00:00* Test Item Value Reference Range Interpretation Comme nts HEMOGLOBIN A1c (test code = 23249) 6.4 % LIPID [id number] 00:00:00* Test Item Value Reference Range Interpretation Comme nts CHOLESTEROL (test code = 2210) 195 MG/DL TRIGLYCERIDES (test code = 2232) 241 MG/DL HDL CHOLESTEROL (test code = 2220) 44 MG/DL CALC LDL CHOL (test code = 2237) 103 MG/DL RISK RATIO LDL/HDL (test cod e = 2238) 2.34 RATIO COMPREHENSIVE METABOLIC [id number] 00:00:00* Test Item Value Reference Range Interpretation Comme nts GLUCOSE (test code = 2217) 138 MG/DL BUN (test code = 2208) 21 MG/DL CREATININE (test code = 2214) 0.59 MG/DL eGFR AMER. (test cod e = 13260) 110 ML/MIN/1.73 eGFR NON- AMER. (test code = 96928) 95 ML/MIN/1.73 CALC BUN/CREAT (test code = 2235) 36 RATIO SODIUM (test code = 2231) 145 MEQ/L POTASSIUM (test code = 2228) 4.0 MEQ/L CHLORIDE (test code = 2215) 105 MEQ/L CARBON DIOXIDE (test code = 2206) 26 MEQ/L CALCIUM (test code = 220) 9.7 MG/DL PROTEIN, TOTAL (test code = [...] (test code = 2219) 14 U/L HEMOGLOBIN [id number] 00:00:00* Test Item Value Reference Range Interpretation Comme nts HEMOGLOBIN A1c (test code = 83216) 6.4 % LIPID [id number] 00:00:00* Test Item Value Reference Range Interpretation Comme nts CHOLESTEROL (test code = 2210) 195 MG/DL TRIGLYCERIDES (test code = 2232) 241 MG/DL HDL CHOLESTEROL (test code = 2220) 44 MG/DL CALC LDL CHOL (test code = 7) 103 MG/DL RISK RATIO LDL/HDL (test cod e = 2238) 2.34 RATIO HEMOGLOBIN [id number] 00:00:00* Test Item Value Reference Range Interpretation Comme nts HEMOGLOBIN A1c (test code = 98200) 6.4 % COMPREHENSIVE METABOLIC [id number] 00:00:00* Test Item Value Reference Range Interpretation Comme nts GLUCOSE (test code = 2217) 138 MG/DL BUN (test code = 8) 21 MG/DL CREATININE (test code = 2214) 0.59 MG/DL eGFR AMER. (test cod e = 81896) 110 ML/MIN/1.73 eGFR NON- AMER. (test code = 01245) 95 ML/MIN/1.73 CALC BUN/CREAT (test code = [...] (test code = 2219) 14 U/L LIPID [id number] 00:00:00* Test Item Value Reference Range Interpretation Comme nts CHOLESTEROL (test code = 2210) 195 MG/DL TRIGLYCERIDES (test code = 2232) 241 MG/DL HDL CHOLESTEROL (test code = 2220) 44 MG/DL CALC LDL CHOL (test code = 2237) 103 MG/DL RISK RATIO LDL/HDL (test cod e = 2238) 2.34 RATIO COMPREHENSIVE METABOLIC [id number] 00:00:00* Test Item Value Reference Range Interpretation Comme nts GLUCOSE (test code = 2217) 138 MG/DL BUN (test code = 2208) 21 MG/DL CREATININE (test code = 2214) 0.59 MG/DL eGFR AMER. (test cod e = 44190) 110 ML/MIN/1.73 eGFR NON- AMER. (test code = 78155) 95 ML/MIN/1.73 CALC BUN/CREAT (test code = [...] (test code = 2219) 14 U/L HEMOGLOBIN [id number] 00:00:00* Test Item Value Reference Range Interpretation Comme nts HEMOGLOBIN A1c (test code = 30059) 6.4 % LIPID [id number] 00:00:00* Test Item Value Reference Range Interpretation Comme nts CHOLESTEROL (test code = 2210) 195 MG/DL TRIGLYCERIDES (test code = 2232) 241 MG/DL HDL CHOLESTEROL (test code = 2220) 44 MG/DL CALC LDL CHOL (test code = 2237) 103 MG/DL RISK RATIO LDL/HDL (test cod e = 2238) 2.34 RATIO COMPREHENSIVE METABOLIC [id number] 00:00:00* Test Item Value Reference Range Interpretation Comme nts GLUCOSE (test code = 2217) 138 MG/DL BUN (test code = 2208) 21 MG/DL CREATININE (test code = 2214) 0.59 MG/DL eGFR AMER. (test cod e = 11417) 110 ML/MIN/1.73 eGFR NON- AMER. (test code = 72130) 95 ML/MIN/1.73 CALC BUN/CREAT (test code = [...] (test code = 2219) 14 U/L HEMOGLOBIN [id number] 00:00:00* Test Item Value Reference Range Interpretation Comme nts HEMOGLOBIN A1c (test code = 59971) 6.4 % LIPID [id number] 00:00:00* Test Item Value Reference Range Interpretation Comme nts CHOLESTEROL (test code = 2210) 195 MG/DL TRIGLYCERIDES (test code = 2232) 241 MG/DL HDL CHOLESTEROL (test code = 2220) 44 MG/DL CALC LDL CHOL (test code = 2237) 103 MG/DL RISK RATIO LDL/HDL (test cod e = 2238) 2.34 RATIO COMPREHENSIVE METABOLIC [id number] 00:00:00* Test Item Value Reference Range Interpretation Comme nts GLUCOSE (test code = 2217) 138 MG/DL BUN (test code = 2208) 21 MG/DL CREATININE (test code = 2214) 0.59 MG/DL eGFR AMER. (test cod e = 74235) 110 ML/MIN/1.73 eGFR NON- AMER. (test code = 09696) 95 ML/MIN/1.73 CALC BUN/CREAT (test code = [...] (test code = 2219) 14 U/L HEMOGLOBIN [id number] 00:00:00* Test Item Value Reference Range Interpretation Comme nts HEMOGLOBIN A1c (test code = 62068) 6.4 % LIPID [id number] 00:00:00* Test Item Value Reference Range Interpretation Comme nts CHOLESTEROL (test code = 2210) 195 MG/DL TRIGLYCERIDES (test code = 2232) 241 MG/DL HDL CHOLESTEROL (test code = 2220) 44 MG/DL CALC LDL CHOL (test code = 2237) 103 MG/DL RISK RATIO LDL/HDL (test cod e = 2238) 2.34 RATIO COMPREHENSIVE METABOLIC [id number] 00:00:00* Test Item Value Reference Range Interpretation Comme nts GLUCOSE (test code = 2217) 138 MG/DL BUN (test code = 2208) 21 MG/DL CREATININE (test code = 2214) 0.59 MG/DL eGFR AMER. (test cod e = 78248) 110 ML/MIN/1.73 eGFR NON- AMER. (test code = 67494) 95 ML/MIN/1.73 CALC BUN/CREAT (test code = [...] (test code = 2219) 14 U/L HEMOGLOBIN [id number] 00:00:00* Test Item Value Reference Range Interpretation Comme nts HEMOGLOBIN A1c (test code = 08329) 6.4 % LIPID [id number] 00:00:00* Test Item Value Reference Range Interpretation Comme nts CHOLESTEROL (test code = 2210) 195 MG/DL TRIGLYCERIDES (test code = 2232) 241 MG/DL HDL CHOLESTEROL (test code = 2220) 44 MG/DL CALC LDL CHOL (test code = 2237) 103 MG/DL RISK RATIO LDL/HDL (test cod e = 2238) 2.34 RATIO COMPREHENSIVE METABOLIC [id number] 00:00:00* Test Item Value Reference Range Interpretation Comme nts GLUCOSE (test code = 2217) 138 MG/DL BUN (test code = 2208) 21 MG/DL CREATININE (test code = 2214) 0.59 MG/DL eGFR AMER. (test cod e = 17875) 110 ML/MIN/1.73 eGFR NON- AMER. (test code = 92437) 95 ML/MIN/1.73 CALC BUN/CREAT (test code = [...] <0.2 MG/DL ALKALINE PHOSPHATASE (test code = 220) 88 U/L AST (test code = 2217) 16 U/L ALT (test code = 2219) 14 U/L HEMOGLOBIN [id number] 00:00:00* Test Item Value Reference Range Interpretation Comme nts HEMOGLOBIN A1c (test code = 73503) 6.4 % Toney Cowan CordovaLIPID [id number] 00:00:00* Test Item Value Reference Range Interpretation Comme nts CHOLESTEROL (test code = 2210) 195 MG/DL TRIGLYCERIDES (test code = 2232) 241 MG/DL HDL CHOLESTEROL (test code = 2220) 44 MG/DL CALC LDL CHOL (test code = 7) 103 MG/DL RISK RATIO LDL/HDL (test cod e = 2238) 2.34 RATIO Toney RennerCOMPREHENSIVE METABOLIC [id number] 00:00:00* Test Item Value Reference Range Interpretation Comme nts GLUCOSE (test code = 2217) 138 MG/DL BUN (test code = 8) 21 MG/DL CREATININE (test code = 2214) 0.59 MG/DL eGFR AMER. (test cod e = 32614) 110 ML/MIN/1.73 eGFR NON- AMER. (test code = 59249) 95 ML/MIN/1.73 CALC BUN/CREAT (test code = 223) 36 RATIO SODIUM (test code = 2231) [...] code = 2219) 14 U/L Toney RennerHEMOGLOBIN [id number] 00:00:00* Test Item Value Reference Range Interpretation Comme nts HEMOGLOBIN A1c (test code = 90873) 8.3 % Toney RennerCOMPREHENSIVE METABOLIC [id number] 00:00:00* Test Item Value Reference Range Interpretation Comme nts GLUCOSE (test code = 2217) 131 MG/DL BUN (test code = 2208) 16 MG/DL CREATININE (test code = 2214) 0.51 MG/DL eGFR AMER. (test cod e = 95421) 116 ML/MIN/1.73 eGFR NON- AMER. (test code = 38011) 100 ML/MIN/1.73 CALC BUN/CREAT (test code = [...] code = 2219) 27 U/L Toney RennerLIPID [id number] 00:00:00* Test Item Value Reference Range Interpretation Comme nts CHOLESTEROL (test code = 2210) 204 MG/DL TRIGLYCERIDES (test code = 2232) 121 MG/DL HDL CHOLESTEROL (test code = 2220) 50 MG/DL CALC LDL CHOL (test code = 2237) 130 MG/DL RISK RATIO LDL/HDL (test cod e = 2238) 2.60 RATIO Toney RennerCOMPREHENSIVE METABOLIC [id number] 00:00:00* Test Item Value Reference Range Interpretation Comme nts GLUCOSE (test code = 2217) 131 MG/DL BUN (test code = 2208) 16 MG/DL CREATININE (test code = 2214) 0.51 MG/DL eGFR AMER. (test cod e = 03055) 116 ML/MIN/1.73 eGFR NON- AMER. (test code = 74436) 100 ML/MIN/1.73 CALC BUN/CREAT (test code = [...] code = 2219) 27 U/L Toney RennerLIPID [id number] 00:00:00* Test Item Value Reference Range Interpretation Comme nts CHOLESTEROL (test code = 2210) 204 MG/DL TRIGLYCERIDES (test code = 2232) 121 MG/DL HDL CHOLESTEROL (test code = 2220) 50 MG/DL CALC LDL CHOL (test code = 2237) 130 MG/DL RISK RATIO LDL/HDL (test cod e = 2238) 2.60 RATIO Toney RennerHEMOGLOBIN [id number] 00:00:00* Test Item Value Reference Range Interpretation Comme nts HEMOGLOBIN A1c (test code = 62221) 8.3 % Toney RennerCOMPREHENSIVE METABOLIC [id number] 00:00:00* Test Item Value Reference Range Interpretation Comme nts GLUCOSE (test code = 2217) 131 MG/DL BUN (test code = 2208) 16 MG/DL CREATININE (test code = 2214) 0.51 MG/DL eGFR AMER. (test cod e = 46937) 116 ML/MIN/1.73 eGFR NON- AMER. (test code = 66590) 100 ML/MIN/1.73 CALC BUN/CREAT (test code = [...] = 2219) 27 U/L Toney Cowan AustinLIPID [id number] 00:00:00* Test Item Value Reference Range Interpretation Comme nts CHOLESTEROL (test code = 2210) 204 MG/DL TRIGLYCERIDES (test code = 2232) 121 MG/DL HDL CHOLESTEROL (test code = 2220) 50 MG/DL CALC LDL CHOL (test code = 2237) 130 MG/DL RISK RATIO LDL/HDL (test cod e = 2238) 2.60 RATIO Toney RennerHEMOGLOBIN [id number] 00:00:00* Test Item Value Reference Range Interpretation Comme nts HEMOGLOBIN A1c (test code = 01894) 8.3 % Toney RennerCOMPREHENSIVE METABOLIC [id number] 00:00:00* Test Item Value Reference Range Interpretation Comme nts GLUCOSE (test code = 2217) 131 MG/DL BUN (test code = 2208) 16 MG/DL CREATININE (test code = 2214) 0.51 MG/DL eGFR AMER. (test cod e = 87545) 116 ML/MIN/1.73 eGFR NON- AMER. (test code = 04639) 100 ML/MIN/1.73 CALC BUN/CREAT (test code = [...] code = 2219) 27 U/L Toney Cowan [place] [id number] 00:00:00* Test Item Value Reference Range Interpretation Comme nts CHOLESTEROL (test code = 2210) 204 MG/DL TRIGLYCERIDES (test code = 2232) 121 MG/DL HDL CHOLESTEROL (test code = 2220) 50 MG/DL CALC LDL CHOL (test code = 2237) 130 MG/DL RISK RATIO LDL/HDL (test cod e = 2238) 2.60 RATIO Toney RennerHEMOGLOBIN [id number] 00:00:00* Test Item Value Reference Range Interpretation Comme nts HEMOGLOBIN A1c (test code = 71323) 8.3 % Toney RennerCOMPREHENSIVE METABOLIC [id number] 00:00:00* Test Item Value Reference Range Interpretation Comme nts GLUCOSE (test code = 2217) 131 MG/DL BUN (test code = 2208) 16 MG/DL CREATININE (test code = 2214) 0.51 MG/DL eGFR AMER. (test cod e = 34312) 116 ML/MIN/1.73 eGFR NON- AMER. (test code = 74681) 100 ML/MIN/1.73 CALC BUN/CREAT (test code = [...] code = 2219) 27 U/L Toney RennerLIPID [id number] 00:00:00* Test Item Value Reference Range Interpretation Comme nts CHOLESTEROL (test code = 2210) 204 MG/DL TRIGLYCERIDES (test code = 2232) 121 MG/DL HDL CHOLESTEROL (test code = 2220) 50 MG/DL CALC LDL CHOL (test code = 2237) 130 MG/DL RISK RATIO LDL/HDL (test cod e = 2238) 2.60 RATIO Toney RennerHEMOGLOBIN [id number] 00:00:00* Test Item Value Reference Range Interpretation Comme nts HEMOGLOBIN A1c (test code = 56419) 8.3 % Toney RennerCOMPREHENSIVE METABOLIC [id number] 00:00:00* Test Item Value Reference Range Interpretation Comme nts GLUCOSE (test code = 2217) 131 MG/DL BUN (test code = 2208) 16 MG/DL CREATININE (test code = 2214) 0.51 MG/DL eGFR AMER. (test cod e = 62922) 116 ML/MIN/1.73 eGFR NON- AMER. (test code = 72087) 100 ML/MIN/1.73 CALC BUN/CREAT (test code = [...] code = 2219) 27 U/L Toney RennerLIPID [id number] 00:00:00* Test Item Value Reference Range Interpretation Comme nts CHOLESTEROL (test code = 2210) 204 MG/DL TRIGLYCERIDES (test code = 2232) 121 MG/DL HDL CHOLESTEROL (test code = 2220) 50 MG/DL CALC LDL CHOL (test code = 2237) 130 MG/DL RISK RATIO LDL/HDL (test cod e = 2238) 2.60 RATIO Toney RennerHEMOGLOBIN [id number] 00:00:00* Test Item Value Reference Range Interpretation Comme nts HEMOGLOBIN A1c (test code = 89468) 8.3 % Toney RennerCOMPREHENSIVE METABOLIC [id number] 00:00:00* Test Item Value Reference Range Interpretation Comme nts GLUCOSE (test code = 2217) 131 MG/DL BUN (test code = 2208) 16 MG/DL CREATININE (test code = 2214) 0.51 MG/DL eGFR AMER. (test cod e = 71596) 116 ML/MIN/1.73 eGFR NON- AMER. (test code = 90943) 100 ML/MIN/1.73 CALC BUN/CREAT (test code = [...] = 2219) 27 U/L Toney Cowan AustinLIPID [id number] 00:00:00* Test Item Value Reference Range Interpretation Comme nts CHOLESTEROL (test code = 2210) 204 MG/DL TRIGLYCERIDES (test code = 2232) 121 MG/DL HDL CHOLESTEROL (test code = 2220) 50 MG/DL CALC LDL CHOL (test code = 2237) 130 MG/DL RISK RATIO LDL/HDL (test cod e = 2238) 2.60 RATIO Toney RennerHEMOGLOBIN [id number] 00:00:00* Test Item Value Reference Range Interpretation Comme nts HEMOGLOBIN A1c (test code = 34353) 8.3 % COMPREHENSIVE METABOLIC [id number] 00:00:00* Test Item Value Reference Range Interpretation Comme nts GLUCOSE (test code = 2217) 131 MG/DL BUN (test code = 2208) 16 MG/DL CREATININE (test code = 2214) 0.51 MG/DL eGFR AMER. (test cod e = 25035) 116 ML/MIN/1.73 eGFR NON- AMER. (test code = 75960) 100 ML/MIN/1.73 CALC BUN/CREAT (test code = [...] (test code = 2219) 27 U/L LIPID [id number] 00:00:00* Test Item Value Reference Range Interpretation Comme nts CHOLESTEROL (test code = 2210) 204 MG/DL TRIGLYCERIDES (test code = 2232) 121 MG/DL HDL CHOLESTEROL (test code = 2220) 50 MG/DL CALC LDL CHOL (test code = 2237) 130 MG/DL RISK RATIO LDL/HDL (test cod e = 2238) 2.60 RATIO HEMOGLOBIN [id number] 00:00:00* Test Item Value Reference Range Interpretation Comme nts HEMOGLOBIN A1c (test code = 97221) 8.3 % COMPREHENSIVE METABOLIC [id number] 00:00:00* Test Item Value Reference Range Interpretation Comme nts GLUCOSE (test code = 2217) 131 MG/DL BUN (test code = 2208) 16 MG/DL CREATININE (test code = 2214) 0.51 MG/DL eGFR AMER. (test cod e = 46175) 116 ML/MIN/1.73 eGFR NON- AMER. (test code = 85759) 100 ML/MIN/1.73 CALC BUN/CREAT (test code = [...] (test code = 2219) 27 U/L LIPID [id number] 00:00:00* Test Item Value Reference Range Interpretation Comme nts CHOLESTEROL (test code = 2210) 204 MG/DL TRIGLYCERIDES (test code = 2232) 121 MG/DL HDL CHOLESTEROL (test code = 2220) 50 MG/DL CALC LDL CHOL (test code = 2237) 130 MG/DL RISK RATIO LDL/HDL (test cod e = 2238) 2.60 RATIO HEMOGLOBIN [id number] 00:00:00* Test Item Value Reference Range Interpretation Comme nts HEMOGLOBIN A1c (test code = 88478) 8.3 % COMPREHENSIVE METABOLIC [id number] 00:00:00* Test Item Value Reference Range Interpretation Comme nts GLUCOSE (test code = 2217) 131 MG/DL BUN (test code = 2208) 16 MG/DL CREATININE (test code = 2214) 0.51 MG/DL eGFR AMER. (test cod e = 55006) 116 ML/MIN/1.73 eGFR NON- AMER. (test code = 40391) 100 ML/MIN/1.73 CALC BUN/CREAT (test code = [...] (test code = 2219) 27 U/L LIPID [id number] 00:00:00* Test Item Value Reference Range Interpretation Comme nts CHOLESTEROL (test code = 2210) 204 MG/DL TRIGLYCERIDES (test code = 2232) 121 MG/DL HDL CHOLESTEROL (test code = 2220) 50 MG/DL CALC LDL CHOL (test code = 2237) 130 MG/DL RISK RATIO LDL/HDL (test cod e = 2238) 2.60 RATIO HEMOGLOBIN [id number] 00:00:00* Test Item Value Reference Range Interpretation Comme nts HEMOGLOBIN A1c (test code = 65048) 8.3 % HEMOGLOBIN [id number] 00:00:00* Test Item Value Reference Range Interpretation Comme nts HEMOGLOBIN A1c (test code = 22169) 8.3 % COMPREHENSIVE METABOLIC [id number] 00:00:00* Test Item Value Reference Range Interpretation Comme nts GLUCOSE (test code = 2217) 131 MG/DL BUN (test code = 2208) 16 MG/DL CREATININE (test code = 2214) 0.51 MG/DL eGFR AMER. (test cod e = 80480) 116 ML/MIN/1.73 eGFR NON- AMER. (test code = 53377) 100 ML/MIN/1.73 CALC BUN/CREAT (test code = [...] (test code = 2219) 27 U/L LIPID [id number] 00:00:00* Test Item Value Reference Range Interpretation Comme nts CHOLESTEROL (test code = 2210) 204 MG/DL TRIGLYCERIDES (test code = 2232) 121 MG/DL HDL CHOLESTEROL (test code = 2220) 50 MG/DL CALC LDL CHOL (test code = 2237) 130 MG/DL RISK RATIO LDL/HDL (test cod e = 2238) 2.60 RATIO COMPREHENSIVE METABOLIC [id number] 00:00:00* Test Item Value Reference Range Interpretation Comme nts GLUCOSE (test code = 2217) 131 MG/DL BUN (test code = 2208) 16 MG/DL CREATININE (test code = 2214) 0.51 MG/DL eGFR AMER. (test cod e = 30682) 116 ML/MIN/1.73 eGFR NON- AMER. (test code = 78014) 100 ML/MIN/1.73 CALC BUN/CREAT (test code = [...] (test code = 2219) 27 U/L HEMOGLOBIN [id number] 00:00:00* Test Item Value Reference Range Interpretation Comme nts HEMOGLOBIN A1c (test code = 44503) 8.3 % LIPID [id number] 00:00:00* Test Item Value Reference Range Interpretation Comme nts CHOLESTEROL (test code = 2210) 204 MG/DL TRIGLYCERIDES (test code = 2232) 121 MG/DL HDL CHOLESTEROL (test code = 2220) 50 MG/DL CALC LDL CHOL (test code = 2237) 130 MG/DL RISK RATIO LDL/HDL (test cod e = 2238) 2.60 RATIO COMPREHENSIVE METABOLIC [id number] 00:00:00* Test Item Value Reference Range Interpretation Comme nts GLUCOSE (test code = 2217) 131 MG/DL BUN (test code = 2208) 16 MG/DL CREATININE (test code = 2214) 0.51 MG/DL eGFR AMER. (test cod e = 10037) 116 ML/MIN/1.73 eGFR NON- AMER. (test code = 03915) 100 ML/MIN/1.73 CALC BUN/CREAT (test code = 2235) 31 RATIO SODIUM (test code = 2231) 143 MEQ/L POTASSIUM (test code = 2228) 4.0 MEQ/L CHLORIDE (test code = 2215) 103 MEQ/L CARBON DIOXIDE (test code = 2205) 27 MEQ/L CALCIUM (test code = 2209) 9.4 MG/DL PROTEIN, TOTAL (test code = 2229) 7.5 G/DL ALBUMIN (test code = 2201) 4.4 G/DL CALC GLOBULIN (test code = 2240) 3.1 G/DL CALC A/G RATIO (test code = 2234) 1.4 RATIO BILIRUBIN, TOTAL (test code = 2206) 0.3 MG/DL ALKALINE PHOSPHATASE (test code = 2203) 83 U/L AST (test code = 221) 23 U/L ALT (test code = 221) 27 U/L LIPID [id number] 00:00:00* Test Item Value Reference Range Interpretation Comme nts CHOLESTEROL (test code = 2210) 204 MG/DL TRIGLYCERIDES (test code = 2232) 121 MG/DL HDL CHOLESTEROL (test code = 2220) 50 MG/DL CALC LDL CHOL (test code = 223) 130 MG/DL RISK RATIO LDL/HDL (test cod e = 223) 2.60 RATIO HEMOGLOBIN [id number] 00:00:00* Test Item Value Reference Range Interpretation Comme nts HEMOGLOBIN A1c (test code = 69150) 8.3 % COMPREHENSIVE METABOLIC [id number] 00:00:00* Test Item Value Reference Range Interpretation Comme nts GLUCOSE (test code = 2216) 131 MG/DL BUN (test code = 2207) 16 MG/DL CREATININE (test code = 2214) 0.51 MG/DL eGFR AMER. (test cod e = 93163) 116 ML/MIN/1.73 eGFR NON- AMER. (test code = 43868) 100 ML/MIN/1.73 CALC BUN/CREAT (test code = 2235) 31 RATIO SODIUM (test code = 2231) 143 MEQ/L POTASSIUM (test code = 2228) 4.0 MEQ/L CHLORIDE (test code = 2215) 103 MEQ/L CARBON DIOXIDE (test code = 2205) 27 MEQ/L CALCIUM (test code = 2209) [...] (test code = 2219) 27 U/L LIPID [id number] 00:00:00* Test Item Value Reference Range Interpretation Comme nts CHOLESTEROL (test code = 2210) 204 MG/DL TRIGLYCERIDES (test code = 2232) 121 MG/DL HDL CHOLESTEROL (test code = 2220) 50 MG/DL CALC LDL CHOL (test code = 2237) 130 MG/DL RISK RATIO LDL/HDL (test cod e = 2238) 2.60 RATIO HEMOGLOBIN [id number] 00:00:00* Test Item Value Reference Range Interpretation Comme nts HEMOGLOBIN A1c (test code = 40562) 8.3 % COMPREHENSIVE METABOLIC [id number] 00:00:00* Test Item Value Reference Range Interpretation Comme nts GLUCOSE (test code = 2217) 131 MG/DL BUN (test code = 2208) 16 MG/DL CREATININE (test code = 2214) 0.51 MG/DL eGFR AMER. (test cod e = 49450) 116 ML/MIN/1.73 eGFR NON- AMER. (test code = 75717) 100 ML/MIN/1.73 CALC BUN/CREAT (test code = [...] (test code = 2219) 27 U/L LIPID [id number] 00:00:00* Test Item Value Reference Range Interpretation Comme nts CHOLESTEROL (test code = 2210) 204 MG/DL TRIGLYCERIDES (test code = 2232) 121 MG/DL HDL CHOLESTEROL (test code = 2220) 50 MG/DL CALC LDL CHOL (test code = 2237) 130 MG/DL RISK RATIO LDL/HDL (test cod e = 2238) 2.60 RATIO HEMOGLOBIN [id number] 00:00:00* Test Item Value Reference Range Interpretation Comme nts HEMOGLOBIN A1c (test code = 22356) 8.3 % COMPREHENSIVE METABOLIC [id number] 00:00:00* Test Item Value Reference Range Interpretation Comme nts GLUCOSE (test code = 2217) 131 MG/DL BUN (test code = 2208) 16 MG/DL CREATININE (test code = 2214) 0.51 MG/DL eGFR AMER. (test cod e = 51204) 116 ML/MIN/1.73 eGFR NON- AMER. (test code = 46320) 100 ML/MIN/1.73 CALC BUN/CREAT (test code = [...] (test code = 2219) 27 U/L LIPID [id number] 00:00:00* Test Item Value Reference Range Interpretation Comme nts CHOLESTEROL (test code = 2210) 204 MG/DL TRIGLYCERIDES (test code = 2232) 121 MG/DL HDL CHOLESTEROL (test code = 2220) 50 MG/DL CALC LDL CHOL (test code = 2237) 130 MG/DL RISK RATIO LDL/HDL (test cod e = 2238) 2.60 RATIO HEMOGLOBIN [id number] 00:00:00* Test Item Value Reference Range Interpretation Comme nts HEMOGLOBIN A1c (test code = 24425) 8.3 % Toney RennerCOMPREHENSIVE METABOLIC [id number] 00:00:00* Test Item Value Reference Range Interpretation Comme nts GLUCOSE (test code = 2217) 131 MG/DL BUN (test code = 2208) 16 MG/DL CREATININE (test code = 2214) 0.51 MG/DL eGFR AMER. (test cod e = 59233) 116 ML/MIN/1.73 eGFR NON- AMER. (test code = 42393) 100 ML/MIN/1.73 CALC BUN/CREAT (test code = [...] (test code = 2219) 27 U/L Toney RennerHEMOGLOBIN [id number] 00:00:00* Test Item Value Reference Range Interpretation Comme nts HEMOGLOBIN A1c (test code = 79640) 8.3 % Toney Cowan AustinLIPID [id number] 00:00:00* Test Item Value Reference Range Interpretation Comme nts CHOLESTEROL (test code = 2210) 204 MG/DL TRIGLYCERIDES (test code = 2232) 121 MG/DL HDL CHOLESTEROL (test code = 2220) 50 MG/DL CALC LDL CHOL (test code = 2237) 130 MG/DL RISK RATIO LDL/HDL (test cod e = 2238) 2.60 RATIO Toney RennerCULTURE, [id number] 00:00:00* Test Item Value Reference Range Interpretation Comme nts CULTURE, STOOL (test code = 19310) SPECIMEN NUMBER: [id number] DARI Mario2018-03-29 00:00:00* Test Item Value Reference Range Interpretation Comme nts CULTURE, STOOL (test code = 94300) SPECIMEN NUMBER: [id number] DARI Mario2018-03-29 00:00:00* Test Item Value Reference Range Interpretation Comme nts CULTURE, STOOL (test code = 57429) SPECIMEN NUMBER: [id number] DARI Mario2018-03-29 00:00:00* Test Item Value Reference Range Interpretation Comme nts CULTURE, STOOL (test code = 30604) SPECIMEN NUMBER: [id number] DARI Mario2018-03-29 00:00:00* Test Item Value Reference Range Interpretation Comme nts CULTURE, STOOL (test code = 29597) SPECIMEN NUMBER: [id number] DARI Mario2018-03-29 00:00:00* Test Item Value Reference Range Interpretation Comme nts CULTURE, STOOL (test code = 12428) SPECIMEN NUMBER: [id number] DARI Mario2018-03-29 00:00:00* Test Item Value Reference Range Interpretation Comme nts CULTURE, STOOL (test code = 67117) SPECIMEN NUMBER: [id number] DARI Mario2018-03-29 00:00:00* Test Item Value Reference Range Interpretation Comme nts CULTURE, STOOL (test code = 55647) SPECIMEN NUMBER: [id number] DARI [id number] 00:00:00* Test Item Value Reference Range Interpretation Comme nts CULTURE, STOOL (test code = 78750) SPECIMEN NUMBER: [id number] DARI [id number] 00:00:00* Test Item Value Reference Range Interpretation Comme nts CULTURE, STOOL (test code = 88091) SPECIMEN NUMBER: [id number] DARI [id number] 00:00:00* Test Item Value Reference Range Interpretation Comme nts CULTURE, STOOL (test code = 96597) SPECIMEN NUMBER: [id number] DARI [id number] 00:00:00* Test Item Value Reference Range Interpretation Comme nts CULTURE, STOOL (test code = 95168) SPECIMEN NUMBER: [id number] CULTURE, [id number] 00:00:00* Test Item Value Reference Range Interpretation Comme nts CULTURE, STOOL (test code = 09022) SPECIMEN NUMBER: [id number] CULTURE, [id number] 00:00:00* Test Item Value Reference Range Interpretation Comme nts CULTURE, STOOL (test code = 02954) SPECIMEN NUMBER: [id number] CULTURE, [id number] 00:00:00* Test Item Value Reference Range Interpretation Comme nts CULTURE, STOOL (test code = 64123) SPECIMEN NUMBER: [id number] CULTURE, [id number] 00:00:00* Test Item Value Reference Range Interpretation Comme nts CULTURE, STOOL (test code = 23247) SPECIMEN NUMBER: [id number] CULTURE, [id number] 00:00:00* Test Item Value Reference Range Interpretation Comme nts CULTURE, STOOL (test code = 08715) SPECIMEN NUMBER: [id number] Toney Cowan AustinCOMPREHENSIVE METABOLIC [id number] 00:00:00* Test Item Value Reference Range Interpretation Comme nts GLUCOSE (test code = 2217) 298 MG/DL BUN (test code = 2208) 21 MG/DL CREATININE (test code = 2214) 0.56 MG/DL eGFR AMER. (test cod e = 93966) 113 ML/MIN/1.73 eGFR NON- AMER. (test code = 25139) 97 ML/MIN/1.73 CALC BUN/CREAT (test code = [...] (test code = 2219) 21 U/L Toney RennerCOMPREHENSIVE METABOLIC [id number] 00:00:00* Test Item Value Reference Range Interpretation Comme nts GLUCOSE (test code = 2217) 298 MG/DL BUN (test code = 2208) 21 MG/DL CREATININE (test code = 2214) 0.56 MG/DL eGFR AMER. (test cod e = 59925) 113 ML/MIN/1.73 eGFR NON- AMER. (test code = 99253) 97 ML/MIN/1.73 CALC BUN/CREAT (test code = [...] 2219) 21 U/L Toney Cowan ZurdoCBC W/AUTO [id number] 00:00:00* Test Item Value Reference Range Interpretation [...] code = 1015) 204 K/UL Toney Cowan [id number] 00:00:00* Test Item Value Reference Range Interpretation Comme nts AMYLASE (test code = 2205) 57 U/L Toney Cowan [id number] 00:00:00* Test Item Value Reference Range Interpretation Comme nts LIPASE (test code = 2057) 26 U/L Toney Cowan AustinCBC W/AUTO [id number] 00:00:00* Test Item Value Reference Range Interpretation [...] code = 1015) 204 K/UL Toney Cowan [id number] 00:00:00* Test Item Value Reference Range Interpretation Comme nts AMYLASE (test code = 2205) 57 U/L Toney Cowan [id number] 00:00:00* Test Item Value Reference Range Interpretation Comme nts LIPASE (test code = 2057) 26 U/L Toney Cowan AustinCOMPREHENSIVE METABOLIC [id number] 00:00:00* Test Item Value Reference Range Interpretation Comme nts GLUCOSE (test code = 2217) 298 MG/DL BUN (test code = 2208) 21 MG/DL CREATININE (test code = 2214) 0.56 MG/DL eGFR AMER. (test cod e = 96072) 113 ML/MIN/1.73 eGFR NON- AMER. (test code = 11313) 97 ML/MIN/1.73 CALC BUN/CREAT (test code = [...] 2219) 21 U/L Toney Camryn ZurdoCBC W/AUTO [id number] 00:00:00* Test Item Value Reference Range Interpretation [...] code = 1015) 204 K/UL Toney Cowan [id number] 00:00:00* Test Item Value Reference Range Interpretation Comme nts AMYLASE (test code = 2205) 57 U/L Toney Cowan [id number] 00:00:00* Test Item Value Reference Range Interpretation Comme nts LIPASE (test code = 2057) 26 U/L Toney RennerCOMPREHENSIVE METABOLIC [id number] 00:00:00* Test Item Value Reference Range Interpretation Comme nts GLUCOSE (test code = 2217) 298 MG/DL BUN (test code = 2208) 21 MG/DL CREATININE (test code = 2214) 0.56 MG/DL eGFR AMER. (test cod e = 52489) 113 ML/MIN/1.73 eGFR NON- AMER. (test code = 24429) 97 ML/MIN/1.73 CALC BUN/CREAT (test code = [...] = 2219) 21 U/L Toney RennerCBC W/AUTO [id number] 00:00:00* Test Item Value Reference Range Interpretation [...] (test code = 1015) 204 K/UL Toney [id number] 00:00:00* Test Item Value Reference Range Interpretation Comme nts AMYLASE (test code = 2205) 57 U/L Toney Cowan [id number] 00:00:00* Test Item Value Reference Range Interpretation Comme nts LIPASE (test code = 2058) 26 U/L Toney RennerCOMPREHENSIVE METABOLIC [id number] 00:00:00* Test Item Value Reference Range Interpretation Comme nts GLUCOSE (test code = 2217) 298 MG/DL BUN (test code = 2208) 21 MG/DL CREATININE (test code = 2214) 0.56 MG/DL eGFR AMER. (test cod e = 62471) 113 ML/MIN/1.73 eGFR NON- AMER. (test code = 59337) 97 ML/MIN/1.73 CALC BUN/CREAT (test code = [...] = 2219) 21 U/L Toney RennerCBC W/AUTO [id number] 00:00:00* Test Item Value Reference Range Interpretation [...] (test code = 1015) 204 K/UL Toney F [id number] 00:00:00* Test Item Value Reference Range Interpretation Comme nts AMYLASE (test code = 2205) 57 U/L Toney F [id number] 00:00:00* Test Item Value Reference Range Interpretation Comme nts LIPASE (test code = 2058) 26 U/L Toney F ZurdoCOMPREHENSIVE METABOLIC [id number] 00:00:00* Test Item Value Reference Range Interpretation Comme nts GLUCOSE (test code = 2217) 298 MG/DL BUN (test code = 2208) 21 MG/DL CREATININE (test code = 2214) 0.56 MG/DL eGFR AMER. (test cod e = 47046) 113 ML/MIN/1.73 eGFR NON- AMER. (test code = 19020) 97 ML/MIN/1.73 CALC BUN/CREAT (test code = [...] code = 2219) 21 U/L Toney F AustinCBC W/AUTO [id number] 00:00:00* Test Item Value Reference Range Interpretation [...] code = 1015) 204 K/UL Toney Cowan [id number] 00:00:00* Test Item Value Reference Range Interpretation Comme nts AMYLASE (test code = 2205) 57 U/L Toney Cowan [id number] 00:00:00* Test Item Value Reference Range Interpretation Comme nts LIPASE (test code = 2058) 26 U/L Toney RennerCOMPREHENSIVE METABOLIC [id number] 00:00:00* Test Item Value Reference Range Interpretation Comme nts GLUCOSE (test code = 2217) 298 MG/DL BUN (test code = 2208) 21 MG/DL CREATININE (test code = 2214) 0.56 MG/DL eGFR AMER. (test cod e = 99901) 113 ML/MIN/1.73 eGFR NON- AMER. (test code = 03670) 97 ML/MIN/1.73 CALC BUN/CREAT (test code = [...] = 2219) 21 U/L Toney RennerCBC W/AUTO [id number] 00:00:00* Test Item Value Reference Range Interpretation [...] code = 1015) 204 K/UL Toney Cowan [id number] 00:00:00* Test Item Value Reference Range Interpretation Comme nts AMYLASE (test code = 2205) 57 U/L Toney Cowan [id number] 00:00:00* Test Item Value Reference Range Interpretation Comme nts LIPASE (test code = 2057) 26 U/L Toney Cowan AustinCOMPREHENSIVE METABOLIC [id number] 00:00:00* Test Item Value Reference Range Interpretation Comme nts GLUCOSE (test code = 2217) 298 MG/DL BUN (test code = 2208) 21 MG/DL CREATININE (test code = 2214) 0.56 MG/DL eGFR AMER. (test cod e = 07733) 113 ML/MIN/1.73 eGFR NON- AMER. (test code = 18343) 97 ML/MIN/1.73 CALC BUN/CREAT (test code = [...] code = 2219) 21 U/L CBC W/AUTO [id number] 00:00:00* Test Item Value Reference Range Interpretation [...] COUNT (test code = 1015) 204 K/UL [id number] 00:00:00* Test Item Value Reference Range Interpretation Comme nts AMYLASE (test code = 5) 57 U/L [id number] 00:00:00* Test Item Value Reference Range Interpretation Comme nts LIPASE (test code = 2057) 26 U/L COMPREHENSIVE METABOLIC [id number] 00:00:00* Test Item Value Reference Range Interpretation Comme nts GLUCOSE (test code = 2217) 298 MG/DL BUN (test code = 8) 21 MG/DL CREATININE (test code = 2214) 0.56 MG/DL eGFR AMER. (test cod e = 25451) 113 ML/MIN/1.73 eGFR NON- AMER. (test code = 99321) 97 ML/MIN/1.73 CALC BUN/CREAT (test code = [...] code = 2219) 21 U/L CBC W/AUTO [id number] 00:00:00* Test Item Value Reference Range Interpretation [...] COUNT (test code = 1015) 204 K/UL [id number] 00:00:00* Test Item Value Reference Range Interpretation Comme nts AMYLASE (test code = 2205) 57 U/L [id number] 00:00:00* Test Item Value Reference Range Interpretation Comme nts LIPASE (test code = 205) 26 U/L COMPREHENSIVE METABOLIC [id number] 00:00:00* Test Item Value Reference Range Interpretation Comme nts GLUCOSE (test code = 2217) 298 MG/DL BUN (test code = 2208) 21 MG/DL CREATININE (test code = 2214) 0.56 MG/DL eGFR AMER. (test cod e = 50025) 113 ML/MIN/1.73 eGFR NON- AMER. (test code = 30090) 97 ML/MIN/1.73 CALC BUN/CREAT (test code = [...] code = 2219) 21 U/L CBC W/AUTO [id number] 00:00:00* Test Item Value Reference Range Interpretation [...] COUNT (test code = 1015) 204 K/UL [id number] 00:00:00* Test Item Value Reference Range Interpretation Comme nts AMYLASE (test code = 2205) 57 U/L [id number] 00:00:00* Test Item Value Reference Range Interpretation Comme nts LIPASE (test code = 205) 26 U/L COMPREHENSIVE METABOLIC [id number] 00:00:00* Test Item Value Reference Range Interpretation Comme nts GLUCOSE (test code = 2217) 298 MG/DL BUN (test code = 2208) 21 MG/DL CREATININE (test code = 2214) 0.56 MG/DL eGFR AMER. (test cod e = 97866) 113 ML/MIN/1.73 eGFR NON- AMER. (test code = 98773) 97 ML/MIN/1.73 CALC BUN/CREAT (test code = [...] code = 2219) 21 U/L CBC W/AUTO [id number] 00:00:00* Test Item Value Reference Range Interpretation [...] code = 1015) 204 K/UL COMPREHENSIVE METABOLIC [id number] 00:00:00* Test Item Value Reference Range Interpretation Comme nts GLUCOSE (test code = 2217) 298 MG/DL BUN (test code = 2208) 21 MG/DL CREATININE (test code = 2214) 0.56 MG/DL eGFR AMER. (test cod e = 86345) 113 ML/MIN/1.73 eGFR NON- AMER. (test code = 53786) 97 ML/MIN/1.73 CALC BUN/CREAT (test code = [...] ALT (test code = 2219) 21 U/L [id number] 00:00:00* Test Item Value Reference Range Interpretation Comme nts AMYLASE (test code = 2205) 57 U/L [id number] 00:00:00* Test Item Value Reference Range Interpretation Comme nts LIPASE (test code = 205) 26 U/L CBC W/AUTO [id number] 00:00:00* Test Item Value Reference Range Interpretation [...] COUNT (test code = 1015) 204 K/UL [id number] 00:00:00* Test Item Value Reference Range Interpretation Comme nts AMYLASE (test code = 2205) 57 U/L COMPREHENSIVE METABOLIC [id number] 00:00:00* Test Item Value Reference Range Interpretation Comme nts GLUCOSE (test code = 2217) 298 MG/DL BUN (test code = 2208) 21 MG/DL CREATININE (test code = 2214) 0.56 MG/DL eGFR AMER. (test cod e = 02970) 113 ML/MIN/1.73 eGFR NON- AMER. (test code = 78400) 97 ML/MIN/1.73 CALC BUN/CREAT (test code = [...] code = 2219) 21 U/L CBC W/AUTO [id number] 00:00:00* Test Item Value Reference Range Interpretation [...] COUNT (test code = 1015) 204 K/UL [id number] 00:00:00* Test Item Value Reference Range Interpretation Comme nts LIPASE (test code = 2058) 26 U/L [id number] 00:00:00* Test Item Value Reference Range Interpretation Comme nts AMYLASE (test code = 2205) 57 U/L [id number] 00:00:00* Test Item Value Reference Range Interpretation Comme nts LIPASE (test code = 2058) 26 U/L COMPREHENSIVE METABOLIC [id number] 00:00:00* Test Item Value Reference Range Interpretation Comme nts GLUCOSE (test code = 2217) 298 MG/DL BUN (test code = 2208) 21 MG/DL CREATININE (test code = 2214) 0.56 MG/DL eGFR AMER. (test cod e = 24302) 113 ML/MIN/1.73 eGFR NON- AMER. (test code = 40277) 97 ML/MIN/1.73 CALC BUN/CREAT (test code = [...] code = 2219) 21 U/L CBC W/AUTO [id number] 00:00:00* Test Item Value Reference Range Interpretation [...] COUNT (test code = 1015) 204 K/UL [id number] 00:00:00* Test Item Value Reference Range Interpretation Comme nts AMYLASE (test code = 2205) 57 U/L [id number] 00:00:00* Test Item Value Reference Range Interpretation Comme nts LIPASE (test code = 2057) 26 U/L COMPREHENSIVE METABOLIC [id number] 00:00:00* Test Item Value Reference Range Interpretation Comme nts GLUCOSE (test code = 2217) 298 MG/DL BUN (test code = 2208) 21 MG/DL CREATININE (test code = 2214) 0.56 MG/DL eGFR AMER. (test cod e = 16143) 113 ML/MIN/1.73 eGFR NON- AMER. (test code = 70726) 97 ML/MIN/1.73 CALC BUN/CREAT (test code = [...] code = 2219) 21 U/L CBC W/AUTO [id number] 00:00:00* Test Item Value Reference Range Interpretation [...] COUNT (test code = 1015) 204 K/UL [id number] 00:00:00* Test Item Value Reference Range Interpretation Comme nts AMYLASE (test code = 2205) 57 U/L [id number] 00:00:00* Test Item Value Reference Range Interpretation Comme nts LIPASE (test code = 2057) 26 U/L COMPREHENSIVE METABOLIC [id number] 00:00:00* Test Item Value Reference Range Interpretation Comme nts GLUCOSE (test code = 2217) 298 MG/DL BUN (test code = 2208) 21 MG/DL CREATININE (test code = 2214) 0.56 MG/DL eGFR AMER. (test cod e = 82428) 113 ML/MIN/1.73 eGFR NON- AMER. (test code = 26969) 97 ML/MIN/1.73 CALC BUN/CREAT (test code = [...] code = 2219) 21 U/L CBC W/AUTO [id number] 00:00:00* Test Item Value Reference Range Interpretation [...] COUNT (test code = 1015) 204 K/UL [id number] 00:00:00* Test Item Value Reference Range Interpretation Comme nts AMYLASE (test code = 5) 57 U/L [id number] 00:00:00* Test Item Value Reference Range Interpretation Comme nts LIPASE (test code = 2057) 26 U/L COMPREHENSIVE METABOLIC [id number] 00:00:00* Test Item Value Reference Range Interpretation Comme nts GLUCOSE (test code = 2217) 298 MG/DL BUN (test code = 2208) 21 MG/DL CREATININE (test code = 2214) 0.56 MG/DL eGFR AMER. (test cod e = 73618) 113 ML/MIN/1.73 eGFR NON- AMER. (test code = 82472) 97 ML/MIN/1.73 CALC BUN/CREAT (test code = [...] = 2219) 21 U/L Toney RennerCBC W/AUTO [id number] 00:00:00* Test Item Value Reference Range Interpretation [...] (test code = 1015) 204 K/UL Toney [id number] 00:00:00* Test Item Value Reference Range Interpretation Comme nts AMYLASE (test code = 2205) 57 U/L Toney [id number] 00:00:00* Test Item Value Reference Range Interpretation Comme nts LIPASE (test code = 205) 26 U/L Toney RennerCOMPREHENSIVE METABOLIC [id number] 00:00:00* Test Item Value Reference Range Interpretation Comme nts GLUCOSE (test code = 2217) 160 MG/DL BUN (test code = 2208) 23 MG/DL CREATININE (test code = 2214) 0.67 MG/DL eGFR AMER. (test cod e = 56381) 106 ML/MIN/1.73 eGFR NON- AMER. (test code = 70483) 92 ML/MIN/1.73 CALC BUN/CREAT (test code = [...] = 2219) 22 U/L Toney RennerCBC W/AUTO [id number] 00:00:00* Test Item Value Reference Range Interpretation [...] code = 1015) 227 K/UL Toney RennerHEMOGLOBIN [id number] 00:00:00* Test Item Value Reference Range Interpretation Comme kp HEMOGLOBIN A1c (test code = 07580) 7.5 % Toney RennerMICROALBUMIN/CREATININE, RANDOM AND [id number] 00:00:00* Test Item Value Reference Range Interpretation Comme nts CREATININE, URINE, CONC. (te st code = 2072) 101.2 MG/DL MICROALBUMIN, RANDOM (test c ode = 30996) <0.2 MG/DL CALC MICROALB/CREAT RND (baljinder t code = 45905) <2 MG/G Toney RennerLIPID [id number] 00:00:00* Test Item Value Reference Range Interpretation Comme nts CHOLESTEROL (test code = 2210) 218 MG/DL TRIGLYCERIDES (test code = 2232) 173 MG/DL HDL CHOLESTEROL (test code = 2220) 49 MG/DL CALC LDL CHOL (test code = 2237) 134 MG/DL RISK RATIO LDL/HDL (test cod e = 2238) 2.74 RATIO Toney RennerCOMPREHENSIVE METABOLIC [id number] 00:00:00* Test Item Value Reference Range Interpretation Comme nts GLUCOSE (test code = 2217) 160 MG/DL BUN (test code = 2208) 23 MG/DL CREATININE (test code = 2214) 0.67 MG/DL eGFR AMER. (test cod e = 65928) 106 ML/MIN/1.73 eGFR NON- AMER. (test code = 06779) 92 ML/MIN/1.73 CALC BUN/CREAT (test code = [...] (test code = 2219) 22 U/L Toney RennerHEMOGLOBIN [id number] 00:00:00* Test Item Value Reference Range Interpretation Comme nts HEMOGLOBIN A1c (test code = 21043) 7.5 % Toney RennerMICROALBUMIN/CREATININE, RANDOM AND [id number] 00:00:00* Test Item Value Reference Range Interpretation Comme nts CREATININE, URINE, CONC. (te st code = 2072) 101.2 MG/DL MICROALBUMIN, RANDOM (test c ode = 00231) <0.2 MG/DL CALC MICROALB/CREAT RND (baljinder t code = 47107) <2 MG/G Toney RennerLIPID [id number] 00:00:00* Test Item Value Reference Range Interpretation Comme nts CHOLESTEROL (test code = 2210) 218 MG/DL TRIGLYCERIDES (test code = 2232) 173 MG/DL HDL CHOLESTEROL (test code = 2220) 49 MG/DL CALC LDL CHOL (test code = 2237) 134 MG/DL RISK RATIO LDL/HDL (test cod e = 2238) 2.74 RATIO Toney RennerCOMPREHENSIVE METABOLIC [id number] 00:00:00* Test Item Value Reference Range Interpretation Comme nts GLUCOSE (test code = 2217) 160 MG/DL BUN (test code = 2208) 23 MG/DL CREATININE (test code = 2214) 0.67 MG/DL eGFR AMER. (test cod e = 62272) 106 ML/MIN/1.73 eGFR NON- AMER. (test code = 27340) 92 ML/MIN/1.73 CALC BUN/CREAT (test code = [...] = 2219) 22 U/L Toney RennerCBC W/AUTO [id number] 00:00:00* Test Item Value Reference Range Interpretation [...] code = 1015) 227 K/UL Toney RennerHEMOGLOBIN [id number] 00:00:00* Test Item Value Reference Range Interpretation Comme nts HEMOGLOBIN A1c (test code = 60374) 7.5 % Toney RennerMICROALBUMIN/CREATININE, RANDOM AND [id number] 00:00:00* Test Item Value Reference Range Interpretation Comme nts CREATININE, URINE, CONC. (te st code = 2072) 101.2 MG/DL MICROALBUMIN, RANDOM (test c ode = 69653) <0.2 MG/DL CALC MICROALB/CREAT RND (baljinder t code = 16885) <2 MG/G Toney RennerLIPID [id number] 00:00:00* Test Item Value Reference Range Interpretation Comme nts CHOLESTEROL (test code = 2210) 218 MG/DL TRIGLYCERIDES (test code = 2232) 173 MG/DL HDL CHOLESTEROL (test code = 2220) 49 MG/DL CALC LDL CHOL (test code = 2237) 134 MG/DL RISK RATIO LDL/HDL (test cod e = 2238) 2.74 RATIO Toeny RennerCOMPREHENSIVE METABOLIC [id number] 00:00:00* Test Item Value Reference Range Interpretation Comme nts GLUCOSE (test code = 2217) 160 MG/DL BUN (test code = 2208) 23 MG/DL CREATININE (test code = 2214) 0.67 MG/DL eGFR AMER. (test cod e = 98910) 106 ML/MIN/1.73 eGFR NON- AMER. (test code = 77267) 92 ML/MIN/1.73 CALC BUN/CREAT (test code = [...] = 2219) 22 U/L Toney RennerCBC W/AUTO [id number] 00:00:00* Test Item Value Reference Range Interpretation [...] code = 1015) 227 K/UL Toney RennerHEMOGLOBIN [id number] 00:00:00* Test Item Value Reference Range Interpretation Comme nts HEMOGLOBIN A1c (test code = 16491) 7.5 % Toney RennerMICROALBUMIN/CREATININE, RANDOM AND [id number] 00:00:00* Test Item Value Reference Range Interpretation Comme nts CREATININE, URINE, CONC. (te st code = 2072) 101.2 MG/DL MICROALBUMIN, RANDOM (test c ode = 03337) <0.2 MG/DL CALC MICROALB/CREAT RND (baljinder t code = 55893) <2 MG/G Toney RennerLIPID [id number] 00:00:00* Test Item Value Reference Range Interpretation Comme nts CHOLESTEROL (test code = 2210) 218 MG/DL TRIGLYCERIDES (test code = 2232) 173 MG/DL HDL CHOLESTEROL (test code = 2220) 49 MG/DL CALC LDL CHOL (test code = 2237) 134 MG/DL RISK RATIO LDL/HDL (test cod e = 2238) 2.74 RATIO Toney RennerCOMPREHENSIVE METABOLIC [id number] 00:00:00* Test Item Value Reference Range Interpretation Comme nts GLUCOSE (test code = 2217) 160 MG/DL BUN (test code = 2208) 23 MG/DL CREATININE (test code = 2214) 0.67 MG/DL eGFR AMER. (test cod e = 77981) 106 ML/MIN/1.73 eGFR NON- AMER. (test code = 49286) 92 ML/MIN/1.73 CALC BUN/CREAT (test code = [...] = 2219) 22 U/L Toney RennerCBC W/AUTO [id number] 00:00:00* Test Item Value Reference Range Interpretation [...] code = 1015) 227 K/UL Toney RennerHEMOGLOBIN [id number] 00:00:00* Test Item Value Reference Range Interpretation Comme [facility] HEMOGLOBIN A1c (test code = 56096) 7.5 % Toney RennerMICROALBUMIN/CREATININE, RANDOM AND [id number] 00:00:00* Test Item Value Reference Range Interpretation Comme nts CREATININE, URINE, CONC. (te st code = 2072) 101.2 MG/DL MICROALBUMIN, RANDOM (test c ode = 38113) <0.2 MG/DL CALC MICROALB/CREAT RND (baljinder t code = 28739) <2 MG/G Toney RennerLIPID [id number] 00:00:00* Test Item Value Reference Range Interpretation Comme nts CHOLESTEROL (test code = 2210) 218 MG/DL TRIGLYCERIDES (test code = 2232) 173 MG/DL HDL CHOLESTEROL (test code = 2220) 49 MG/DL CALC LDL CHOL (test code = 2237) 134 MG/DL RISK RATIO LDL/HDL (test cod e = 2238) 2.74 RATIO Toney RennerCOMPREHENSIVE METABOLIC [id number] 00:00:00* Test Item Value Reference Range Interpretation Comme nts GLUCOSE (test code = 2217) 160 MG/DL BUN (test code = 2208) 23 MG/DL CREATININE (test code = 2214) 0.67 MG/DL eGFR AMER. (test cod e = 03547) 106 ML/MIN/1.73 eGFR NON- AMER. (test code = 92983) 92 ML/MIN/1.73 CALC BUN/CREAT (test code = [...] = 2219) 22 U/L Toney RennerCBC W/AUTO [id number] 00:00:00* Test Item Value Reference Range Interpretation [...] code = 1015) 227 K/UL Toney RennerHEMOGLOBIN [id number] 00:00:00* Test Item Value Reference Range Interpretation Comme nts HEMOGLOBIN A1c (test code = 21901) 7.5 % Toney RennerMICROALBUMIN/CREATININE, RANDOM AND [id number] 00:00:00* Test Item Value Reference Range Interpretation Comme nts CREATININE, URINE, CONC. (te st code = 2072) 101.2 MG/DL MICROALBUMIN, RANDOM (test c ode = 74109) <0.2 MG/DL CALC MICROALB/CREAT RND (baljinder t code = 04942) <2 MG/G Toney RennerLIPID [id number] 00:00:00* Test Item Value Reference Range Interpretation Comme nts CHOLESTEROL (test code = 2210) 218 MG/DL TRIGLYCERIDES (test code = 2232) 173 MG/DL HDL CHOLESTEROL (test code = 2220) 49 MG/DL CALC LDL CHOL (test code = 2237) 134 MG/DL RISK RATIO LDL/HDL (test cod e = 2238) 2.74 RATIO Toney RennerCOMPREHENSIVE METABOLIC [id number] 00:00:00* Test Item Value Reference Range Interpretation Comme nts GLUCOSE (test code = 2217) 160 MG/DL BUN (test code = 2208) 23 MG/DL CREATININE (test code = 2214) 0.67 MG/DL eGFR AMER. (test cod e = 15004) 106 ML/MIN/1.73 eGFR NON- AMER. (test code = 94805) 92 ML/MIN/1.73 CALC BUN/CREAT (test code = [...] code = 2219) 22 U/L Toney Cowan ZurdoC W/AUTO [id number] 00:00:00* Test Item Value Reference Range Interpretation [...] code = 1015) 227 K/UL Toney Cowan ZurdoHEMOGLOBIN [id number] 00:00:00* Test Item Value Reference Range Interpretation Comme [facility] HEMOGLOBIN A1c (test code = 25284) 7.5 % Toney Cowan ZurdoMICROALBUMIN/CREATININE, RANDOM AND [id number] 00:00:00* Test Item Value Reference Range Interpretation Comme [facility] CREATININE, URINE, CONC. (te st code = 2072) 101.2 MG/DL MICROALBUMIN, RANDOM (test c ode = 14750) <0.2 MG/DL CALC MICROALB/CREAT RND (baljinder t code = 06167) <2 MG/G Toney RennerLIPID [id number] 00:00:00* Test Item Value Reference Range Interpretation Comme nts CHOLESTEROL (test code = 2210) 218 MG/DL TRIGLYCERIDES (test code = 2232) 173 MG/DL HDL CHOLESTEROL (test code = 2220) 49 MG/DL CALC LDL CHOL (test code = 2237) 134 MG/DL RISK RATIO LDL/HDL (test cod e = 2238) 2.74 RATIO Toney RennerCOMPREHENSIVE METABOLIC [id number] 00:00:00* Test Item Value Reference Range Interpretation Comme nts GLUCOSE (test code = 2217) 160 MG/DL BUN (test code = 2208) 23 MG/DL CREATININE (test code = 2214) 0.67 MG/DL eGFR AMER. (test cod e = 61171) 106 ML/MIN/1.73 eGFR NON- AMER. (test code = 02260) 92 ML/MIN/1.73 CALC BUN/CREAT (test code = [...] = 2219) 22 U/L Toney RennerCBC W/AUTO [id number] 00:00:00* Test Item Value Reference Range Interpretation [...] (test code = 1015) 227 K/UL HEMOGLOBIN [id number] 00:00:00* Test Item Value Reference Range Interpretation Comme nts HEMOGLOBIN A1c (test code = 51060) 7.5 % MICROALBUMIN/CREATININE, RANDOM AND [id number] 00:00:00* Test Item Value Reference Range Interpretation Comme nts CREATININE, URINE, CONC. (te st code = 2072) 101.2 MG/DL MICROALBUMIN, RANDOM (test c ode = 55658) <0.2 MG/DL CALC MICROALB/CREAT RND (baljinder t code = 12777) <2 MG/G LIPID [id number] 00:00:00* Test Item Value Reference Range Interpretation Comme nts CHOLESTEROL (test code = 2210) 218 MG/DL TRIGLYCERIDES (test code = 2232) 173 MG/DL HDL CHOLESTEROL (test code = 2220) 49 MG/DL CALC LDL CHOL (test code = 2237) 134 MG/DL RISK RATIO LDL/HDL (test cod e = 2238) 2.74 RATIO COMPREHENSIVE METABOLIC [id number] 00:00:00* Test Item Value Reference Range Interpretation Comme nts GLUCOSE (test code = 2217) 160 MG/DL BUN (test code = 2208) 23 MG/DL CREATININE (test code = 2214) 0.67 MG/DL eGFR AMER. (test cod e = 15769) 106 ML/MIN/1.73 eGFR NON- AMER. (test code = 59881) 92 ML/MIN/1.73 CALC BUN/CREAT (test code = [...] code = 2219) 22 U/L CBC W/AUTO [id number] 00:00:00* Test Item Value Reference Range Interpretation [...] (test code = 1015) 227 K/UL HEMOGLOBIN [id number] 00:00:00* Test Item Value Reference Range Interpretation Comme nts HEMOGLOBIN A1c (test code = 34136) 7.5 % MICROALBUMIN/CREATININE, RANDOM AND [id number] 00:00:00* Test Item Value Reference Range Interpretation Comme nts CREATININE, URINE, CONC. (te st code = 2072) 101.2 MG/DL MICROALBUMIN, RANDOM (test c ode = 70574) <0.2 MG/DL CALC MICROALB/CREAT RND (baljinder t code = 89410) <2 MG/G LIPID [id number] 00:00:00* Test Item Value Reference Range Interpretation Comme nts CHOLESTEROL (test code = 2210) 218 MG/DL TRIGLYCERIDES (test code = 2232) 173 MG/DL HDL CHOLESTEROL (test code = 2220) 49 MG/DL CALC LDL CHOL (test code = 2237) 134 MG/DL RISK RATIO LDL/HDL (test cod e = 2238) 2.74 RATIO COMPREHENSIVE METABOLIC [id number] 00:00:00* Test Item Value Reference Range Interpretation Comme nts GLUCOSE (test code = 2217) 160 MG/DL BUN (test code = 2208) 23 MG/DL CREATININE (test code = 2214) 0.67 MG/DL eGFR AMER. (test cod e = 91087) 106 ML/MIN/1.73 eGFR NON- AMER. (test code = 14617) 92 ML/MIN/1.73 CALC BUN/CREAT (test code = [...] code = 2219) 22 U/L CBC W/AUTO [id number] 00:00:00* Test Item Value Reference Range Interpretation [...] (test code = 1015) 227 K/UL HEMOGLOBIN [id number] 00:00:00* Test Item Value Reference Range Interpretation Comme nts HEMOGLOBIN A1c (test code = 04873) 7.5 % MICROALBUMIN/CREATININE, RANDOM AND [id number] 00:00:00* Test Item Value Reference Range Interpretation Comme nts CREATININE, URINE, CONC. (te st code = 2072) 101.2 MG/DL MICROALBUMIN, RANDOM (test c ode = 82737) <0.2 MG/DL CALC MICROALB/CREAT RND (baljinder t code = 43023) <2 MG/G LIPID [id number] 00:00:00* Test Item Value Reference Range Interpretation Comme nts CHOLESTEROL (test code = 2210) 218 MG/DL TRIGLYCERIDES (test code = 2232) 173 MG/DL HDL CHOLESTEROL (test code = 2220) 49 MG/DL CALC LDL CHOL (test code = 2237) 134 MG/DL RISK RATIO LDL/HDL (test cod e = 2238) 2.74 RATIO COMPREHENSIVE METABOLIC [id number] 00:00:00* Test Item Value Reference Range Interpretation Comme nts GLUCOSE (test code = 2217) 160 MG/DL BUN (test code = 2208) 23 MG/DL CREATININE (test code = 2214) 0.67 MG/DL eGFR AMER. (test cod e = 11432) 106 ML/MIN/1.73 eGFR NON- AMER. (test code = 83643) 92 ML/MIN/1.73 CALC BUN/CREAT (test code = [...] code = 2219) 22 U/L CBC W/AUTO [id number] 00:00:00* Test Item Value Reference Range Interpretation [...] (test code = 1015) 227 K/UL HEMOGLOBIN [id number] 00:00:00* Test Item Value Reference Range Interpretation Comme nts HEMOGLOBIN A1c (test code = 89700) 7.5 % MICROALBUMIN/CREATININE, RANDOM AND [id number] 00:00:00* Test Item Value Reference Range Interpretation Comme [facility] CREATININE, URINE, CONC. (te st code = 2072) 101.2 MG/DL MICROALBUMIN, RANDOM (test c ode = 74114) <0.2 MG/DL CALC MICROALB/CREAT RND (baljinder t code = 66143) <2 MG/G LIPID [id number] 00:00:00* Test Item Value Reference Range Interpretation Comme nts CHOLESTEROL (test code = 2210) 218 MG/DL TRIGLYCERIDES (test code = 2232) 173 MG/DL HDL CHOLESTEROL (test code = 2220) 49 MG/DL CALC LDL CHOL (test code = 2237) 134 MG/DL RISK RATIO LDL/HDL (test cod e = 2238) 2.74 RATIO COMPREHENSIVE METABOLIC [id number] 00:00:00* Test Item Value Reference Range Interpretation Comme nts GLUCOSE (test code = 2217) 160 MG/DL BUN (test code = 2208) 23 MG/DL CREATININE (test code = 2214) 0.67 MG/DL eGFR AMER. (test cod e = 03663) 106 ML/MIN/1.73 eGFR NON- AMER. (test code = 87678) 92 ML/MIN/1.73 CALC BUN/CREAT (test code = [...] code = 2219) 22 U/L CBC W/AUTO [id number] 00:00:00* Test Item Value Reference Range Interpretation [...] (test code = 1015) 227 K/UL HEMOGLOBIN [id number] 00:00:00* Test Item Value Reference Range Interpretation Comme nts HEMOGLOBIN A1c (test code = 74068) 7.5 % MICROALBUMIN/CREATININE, RANDOM AND [id number] 00:00:00* Test Item Value Reference Range Interpretation Comme nts CREATININE, URINE, CONC. (te st code = 2071) 101.2 MG/DL MICROALBUMIN, RANDOM (test c ode = 61637) <0.2 MG/DL CALC MICROALB/CREAT RND (baljinder t code = 10106) <2 MG/G CBC W/AUTO [id number] 00:00:00* Test Item Value Reference Range Interpretation [...] (test code = 1015) 227 K/UL HEMOGLOBIN [id number] 00:00:00* Test Item Value Reference Range Interpretation Comme nts HEMOGLOBIN A1c (test code = 63502) 7.5 % MICROALBUMIN/CREATININE, RANDOM AND [id number] 00:00:00* Test Item Value Reference Range Interpretation Comme nts CREATININE, URINE, CONC. (te st code = 2071) 101.2 MG/DL MICROALBUMIN, RANDOM (test c ode = 37384) <0.2 MG/DL CALC MICROALB/CREAT RND (baljinder t code = 23253) <2 MG/G LIPID [id number] 00:00:00* Test Item Value Reference Range Interpretation Comme nts CHOLESTEROL (test code = 2210) 218 MG/DL TRIGLYCERIDES (test code = 2232) 173 MG/DL HDL CHOLESTEROL (test code = 2220) 49 MG/DL CALC LDL CHOL (test code = 2237) 134 MG/DL RISK RATIO LDL/HDL (test cod e = 2238) 2.74 RATIO LIPID [id number] 00:00:00* Test Item Value Reference Range Interpretation Comme nts CHOLESTEROL (test code = 2210) 218 MG/DL TRIGLYCERIDES (test code = 2232) 173 MG/DL HDL CHOLESTEROL (test code = 2220) 49 MG/DL CALC LDL CHOL (test code = 2237) 134 MG/DL RISK RATIO LDL/HDL (test cod e = 2238) 2.74 RATIO COMPREHENSIVE METABOLIC [id number] 00:00:00* Test Item Value Reference Range Interpretation Comme nts GLUCOSE (test code = 2217) 160 MG/DL BUN (test code = 2208) 23 MG/DL CREATININE (test code = 2214) 0.67 MG/DL eGFR AMER. (test cod e = 36876) 106 ML/MIN/1.73 eGFR NON- AMER. (test code = 43505) 92 ML/MIN/1.73 CALC BUN/CREAT (test code = [...] code = 2219) 22 U/L COMPREHENSIVE METABOLIC [id number] 00:00:00* Test Item Value Reference Range Interpretation Comme nts GLUCOSE (test code = 2217) 160 MG/DL BUN (test code = 2208) 23 MG/DL CREATININE (test code = 2214) 0.67 MG/DL eGFR AMER. (test cod e = 75912) 106 ML/MIN/1.73 eGFR NON- AMER. (test code = 97815) 92 ML/MIN/1.73 CALC BUN/CREAT (test code = [...] code = 2219) 22 U/L CBC W/AUTO [id number] 00:00:00* Test Item Value Reference Range Interpretation [...] (test code = 1015) 227 K/UL HEMOGLOBIN [id number] 00:00:00* Test Item Value Reference Range Interpretation Comme nts HEMOGLOBIN A1c (test code = 26684) 7.5 % MICROALBUMIN/CREATININE, RANDOM AND [id number] 00:00:00* Test Item Value Reference Range Interpretation Comme nts CREATININE, URINE, CONC. (te st code = 207) 101.2 MG/DL MICROALBUMIN, RANDOM (test c ode = 84785) <0.2 MG/DL CALC MICROALB/CREAT RND (baljinder t code = 58386) <2 MG/G LIPID [id number] 00:00:00* Test Item Value Reference Range Interpretation Comme nts CHOLESTEROL (test code = 2210) 218 MG/DL TRIGLYCERIDES (test code = 2232) 173 MG/DL HDL CHOLESTEROL (test code = 2220) 49 MG/DL CALC LDL CHOL (test code = 2237) 134 MG/DL RISK RATIO LDL/HDL (test cod e = 2238) 2.74 RATIO COMPREHENSIVE METABOLIC [id number] 00:00:00* Test Item Value Reference Range Interpretation Comme nts GLUCOSE (test code = 2217) 160 MG/DL BUN (test code = 2208) 23 MG/DL CREATININE (test code = 2214) 0.67 MG/DL eGFR AMER. (test cod e = 62531) 106 ML/MIN/1.73 eGFR NON- AMER. (test code = 36423) 92 ML/MIN/1.73 CALC BUN/CREAT (test code = [...] code = 2219) 22 U/L CBC W/AUTO [id number] 00:00:00* Test Item Value Reference Range Interpretation [...] (test code = 1015) 227 K/UL HEMOGLOBIN [id number] 00:00:00* Test Item Value Reference Range Interpretation Comme nts HEMOGLOBIN A1c (test code = 21135) 7.5 % MICROALBUMIN/CREATININE, RANDOM AND [id number] 00:00:00* Test Item Value Reference Range Interpretation Comme nts CREATININE, URINE, CONC. (te st code = 2072) 101.2 MG/DL MICROALBUMIN, RANDOM (test c ode = 95504) <0.2 MG/DL CALC MICROALB/CREAT RND (baljinder t code = 24006) <2 MG/G LIPID [id number] 00:00:00* Test Item Value Reference Range Interpretation Comme nts CHOLESTEROL (test code = 2210) 218 MG/DL TRIGLYCERIDES (test code = 2232) 173 MG/DL HDL CHOLESTEROL (test code = 2220) 49 MG/DL CALC LDL CHOL (test code = 2237) 134 MG/DL RISK RATIO LDL/HDL (test cod e = 2238) 2.74 RATIO COMPREHENSIVE METABOLIC [id number] 00:00:00* Test Item Value Reference Range Interpretation Comme nts GLUCOSE (test code = 2217) 160 MG/DL BUN (test code = 2208) 23 MG/DL CREATININE (test code = 2214) 0.67 MG/DL eGFR AMER. (test cod e = 85450) 106 ML/MIN/1.73 eGFR NON- AMER. (test code = 81466) 92 ML/MIN/1.73 CALC BUN/CREAT (test code = [...] code = 2219) 22 U/L CBC W/AUTO [id number] 00:00:00* Test Item Value Reference Range Interpretation [...] (test code = 1015) 227 K/UL HEMOGLOBIN [id number] 00:00:00* Test Item Value Reference Range Interpretation Comme nts HEMOGLOBIN A1c (test code = 68167) 7.5 % MICROALBUMIN/CREATININE, RANDOM AND [id number] 00:00:00* Test Item Value Reference Range Interpretation Comme nts CREATININE, URINE, CONC. (te st code = 2072) 101.2 MG/DL MICROALBUMIN, RANDOM (test c ode = 92785) <0.2 MG/DL CALC MICROALB/CREAT RND (baljinder t code = 44020) <2 MG/G LIPID [id number] 00:00:00* Test Item Value Reference Range Interpretation Comme nts CHOLESTEROL (test code = 2210) 218 MG/DL TRIGLYCERIDES (test code = 2232) 173 MG/DL HDL CHOLESTEROL (test code = 2220) 49 MG/DL CALC LDL CHOL (test code = 2237) 134 MG/DL RISK RATIO LDL/HDL (test cod e = 2238) 2.74 RATIO COMPREHENSIVE METABOLIC [id number] 00:00:00* Test Item Value Reference Range Interpretation Comme nts GLUCOSE (test code = 2217) 160 MG/DL BUN (test code = 2208) 23 MG/DL CREATININE (test code = 2214) 0.67 MG/DL eGFR AMER. (test cod e = 99168) 106 ML/MIN/1.73 eGFR NON- AMER. (test code = 49754) 92 ML/MIN/1.73 CALC BUN/CREAT (test code = [...] code = 2219) 22 U/L CBC W/AUTO [id number] 00:00:00* Test Item Value Reference Range Interpretation [...] (test code = 1015) 227 K/UL Toney RennerCBC W/AUTO [id number] 00:00:00* Test Item Value Reference Range Interpretation [...] code = 1015) 227 K/UL Toney RennerHEMOGLOBIN [id number] 00:00:00* Test Item Value Reference Range Interpretation Comme [facility] HEMOGLOBIN A1c (test code = 63438) 7.5 % Toney Cowan AustinMICROALBUMIN/CREATININE, RANDOM AND [id number] 00:00:00* Test Item Value Reference Range Interpretation Comme nts CREATININE, URINE, CONC. (te st code = 2072) 101.2 MG/DL MICROALBUMIN, RANDOM (test c ode = 45399) <0.2 MG/DL CALC MICROALB/CREAT RND (baljinder t code = 04871) <2 MG/G Toney Cowan AustinLIPID [id number] 00:00:00* Test Item Value Reference Range Interpretation Comme nts CHOLESTEROL (test code = 2210) 218 MG/DL TRIGLYCERIDES (test code = 2232) 173 MG/DL HDL CHOLESTEROL (test code = 2220) 49 MG/DL CALC LDL CHOL (test code = 2237) 134 MG/DL RISK RATIO LDL/HDL (test cod e = 2238) 2.74 RATIO Toney Renner"
[2024-12-06 18:58] LABS: Absolute Basophils 0.1 K/uL (0-0.5); Absolute Eosinophils 0.3 K/uL (0-0.5); Absolute Lymphocytes (CBC) 3.6 K/uL (0.7-4.9); Absolute Monocytes 0.7 K/uL (0.1-1.3); Absolute Neutrophil 3.7 K/uL (1.8-8.0); Basophils % 0.8 % (0-1.3); Eosinophils % 3.7 % (0-4.4); Hematocrit 40.7 % (36.0-45.0); Hemoglobin 13.6 g/dL (12.0-15.0); Lymphocytes % 43.2 % (15.3-44.8); MCH 29.8 pg (27.0-35.0); MCHC 33.5 g/dL (32.0-36.0); MCV 88.9 fL (80-100); MPV 9.5 fL (7.6-11.3); Monocytes % 8.1 % (3.3-12.3); Neutrophils % 44.2 % (41.7-73.7); Nucleated Red Blood Cells % 0.1 % (0-0); Platelets 204 thou/uL (152-406); RBC Red Blood Cell Count 4.57 M/uL (3.86-4.86); Red Cell Distribution Width 13.8 % (12.1-15.2)
[2024-12-06 19:08] LABS: PT Prothrombin Time 10.8 SECONDS (9.4-12.5); PTT, Activated Partial Thromb 32.8 SECONDS (24.3-36.9); Protime INR 1.03
[2024-12-06 19:18] LABS: ALT/SGPT 26 U/L (13-56); AST/SGOT 20 U/L (15-37); Albumin 3.4 g/dL (3.4-5.0); Albumin/Globulin Ratio 0.8 (1.1-1.8); Alkaline Phosphatase 113 U/L (45-117); Anion Gap 11.6 mEq/L (5.0-15.0); BUN Blood Urea Nitrogen 16 mg/dL (7-18); Bicarbonate 24 mEq/L (21-32); Bilirubin Total 0.3 mg/dL (0.2-1.0); Globulin 4.2 g/dL (2.3-3.5); Glomerular Filtration Rate 85 ml/min (=/>90); Glucose Level 228 mg/dL (74-106); Magnesium 1.7 mg/dL (1.6-2.4); NT PRO-BNP 76 pg/mL (<125); Potassium 3.6 mEq/L (3.5-5.1); Protein, Total 7.6 g/dL (6.4-8.2); Sodium Level 136 mEq/L (136-145); Troponin High Sensitivity 6.5 pg/mL (<58.9)
[2024-12-06 19:19] LABS: Bilirubin Direct < 0.2 mg/dL (0-0.2); Bilirubin Indirect, Calculated 0.1 mg/dL (0.2-0.8)
--- NOTE | 2024-12-06 19:32 | RAD REPORT ---
EXAM: Chest Single View HISTORY: CHEST PAIN COMPARISON: 06/04/2024 FINDINGS: LUNGS/PLEURA: Pulmonary vascular congestion. Mild opacities present at the right lung base. MEDIASTINUM: The mediastinal silhouette is within normal limits. CARDIAC: Mild cardiomegaly UPPER ABDOMEN: No significant abnormality. BONES: No acute abnormality. LINES/TUBES/OTHER: N/A IMPRESSION: Airspace disease at the right lung base could reflect pneumonia or pneumonitis. Pulmonary vascular co ngestion.
--- NOTE | 2024-12-06 20:10 | RAD REPORT ---
EXAM: Angio Aorta For Dissection CLINICAL INDICATION: Female, 74 years chest pain TECHNIQUE: CTA of the aorta was obtained including the chest, abdomen and pelvis, with IV contrast, a s per department protocol. Axial, sagittal and coronal reconstructions were obtained. Post-processing was applied at the acquisition scanner with concurrent physician supervision which in cludes 3D reconstructions, MIPs, volume rendered images and/or shaded surface rendering. One or more of the following dose reduction techniques were used: Automated exposure control, adjustment of the mA and/or kV according to the patient size, and/or iterative reconstruction. Unless otherwise specified, incidental findings do not require dedicated imaging follow-up. [id number]. COMPARISON: 06/04/2024, 09/19/2024 FINDINGS: Chest: LOWER NECK: Visualized thyroid gland and soft tissues are normal. LUNGS AND AIRWAYS: Mosaic lung attenuation. Scattered unchanged pulmonary nodules are seen bilaterall y.For example, a solid nodule in the right upper lobe on image 32, series 401 measures 6 mm. A solid nodule in the lingula measures 9 mm. Note that this is compared with 06/04/2024. PLEURA: No pleural effusion. No pneumothorax. Hemidiaphragms are normally positioned. MEDIASTINUM AND LYMPH NODES: No mediastinal mass or fluid collection. Normal size mediastinal, hilar, and axillary lymph nodes. THORACIC AORTA: Ascending thoracic aortic aneurysm measuring 4 cm. PULMONARY ARTERIES: Caliber is within normal limits. HEART: Mild cardiomegaly. No coronary calcifications.No significant pericardial effusion. Abdomen/Pelvis UPPER GI: No significant abnormality. LIVER: Hepatic steatosis, but otherwise unremarkable. GALLBLADDER/BILE DUCTS: No biliary ductal dilatation.? PANCREAS: Distal pancreatectomy. SPLEEN: Splenectomy with splenosis. ADRENALS: No adrenal masses. KIDNEYS AND URETERS: Bilateral renal scarring. Atrophic left kidney.No hydronephrosis. No suspicious renal mass. ABDOMINAL AORTA AND OTHER VESSELS: Mild atherosclerotic changes. PERITONEUM: No abnormal free fluid. No free air. LYMPH NODES: No pathologic lymphadenopathy. ABDOMINAL WALL: Ventral abdominal wall laxity SMALL BOWEL/COLON: Small bowel has normal course and caliber. No colonic wall thickening or pericolon ic inflammatory changes. Mild diverticulosis without diverticulitis. URINARY BLADDER: Underdistended but grossly unremarkable. REPRODUCTIVE ORGANS: Uterus surgically absent. No adnexal abnormality. MUSCULOSKELETAL: Multilevel degenerative changes in the spine. No acute fracture. ADDITIONAL FINDINGS: None. IMPRESSION: No dissection. Ascending thoracic aortic aneurysm is unchanged measuring 4.1 cm. No abdominal aortic aneurysm No acute or significant abnormalities in the chest, abdomen, or pelvis. Pulmonary nodules which are stable since 06/04/2024. Recommend 12 month follow-up chest CT as only 6 mo nths of stability have been established and given the size of the nodules.
[2024-12-06] MEDS ORDERED: ONDANSETRON 4 MG/2 ML VIAL ONE (20:14)
[2024-12-06] MEDS ORDERED: MORPHINE 4 MG/ML SYR ONE ×2 (20:15→21:22)
[2024-12-06] MEDS ORDERED: CLOPIDOGREL 75 MG TABLET ONE (20:29)
[2024-12-06] MEDS ORDERED: METOPROLOL TAR 25 MG TAB ONE (20:30)
--- NOTE | 2024-12-06 20:57 | EDPHYS ---
Physician Documentation [facility] Name: Sapphire Martinez Age: 74 yrs Sex: Female : 1950 Arrival Date: 12/06/2024 Time: 18:11 Bed 7 Private MD: ED Physician Anders Conway HPI: 12/06 18:45 This 74 yrs old Female presents to ER via Wheelchair with complaints of cp Shortness Of Breath, Breathing Difficulty. 18:45 The patient or guardian reports chest pain that is located primarily in the anterior cp chest wall, mid chest. 18:45 The patient has shortness of breath at rest. cp 18:45 Onset: The symptoms/episode began/occurred yesterday, and became worse today. cp Associated signs and symptoms: Pertinent positives: pain to left side of neck and pain/numbness to left arm. Historical: - Allergies: 18:36 Advil; aa5 18:36 Aleve; aa5 - PMHx: 18:36 Arthritis; Colitis; Diabetes - NIDDM; gastritis; Hyperlipidemia; Hypertension; aa5 - PSHx: 18:36 hysterectomy (Unknown); Bladder lift (Unknown); Pancreas mass removed (Unknown); lenny aa5 knee sx (Unknown); left shoulder sx (Unknown); - Immunization history:: Adult Immunizations unknown. - Infectious Disease History:: Denies. - Social history:: Smoking status: Patient denies any tobacco usage or history of. ROS: 18:50 Constitutional: Negative for body aches, chills, fever, poor PO intake, cp 18:50 Eyes: Negative for injury, pain, redness, and discharge, cp 18:50 ENT: Negative for drainage from ear(s), ear pain, sore throat, difficulty swallowing, difficulty handling secretions, 18:50 Cardiovascular: Positive for chest pain, Negative for edema, palpitations, 18:50 Respiratory: Positive for shortness of breath, Negative for cough, wheezing, 18:50 Abdomen/GI: Negative for abdominal pain, vomiting, diarrhea, constipation, 18:50 Back: Negative for pain at rest, pain with movement, radiated pain, 18:50 Neuro: Positive for numbness, of the left arm, Negative for altered mental status, headache, weakness, 18:50 All other systems are negative, Exam: 18:42 ECG was reviewed by the Attending Physician. cp 18:55 Constitutional: The patient appears in no acute distress, alert, awake, cp non-diaphoretic, non-toxic, well developed, well nourished, uncomfortable, 18:55 Head/Face: Normocephalic, atraumatic. cp 18:55 Eyes: Periorbital structures: appear normal, Conjunctiva: normal, no exudate, no injection, Sclera: no appreciated abnormality, Lids and lashes: appear normal, bilaterally, 18:55 ENT: External ear(s): are unremarkable, Nose: is normal, Mouth: Lips: moist, Oral mucosa: moist, Posterior pharynx: Airway: no evidence of obstruction, patent, 18:55 Neck: ROM/movement: limited range of motion, is not appreciated, Meningeal signs: are not present, nuchal rigidity, is not appreciated, 18:55 Chest/axilla: Inspection: normal, 18:55 Cardiovascular: Rate: normal, Rhythm: regular, Edema: is not appreciated, JVD: is not appreciated, 18:55 Respiratory: the patient does not display signs of respiratory distress, Respirations: normal, no use of accessory muscles, no retractions, labored breathing, is not present, Breath sounds: are clear throughout, no decreased breath sounds, no stridor, no wheezing, 18:55 Abdomen/GI: Inspection: abdomen appears normal, Palpation: abdomen is soft and non-tender, in all quadrants, 18:55 Back: pain, is absent, ROM is normal, 18:55 Neuro: Orientation: to person, place \T\ time. Mentation: is normal, Motor: moves all fours, no focal deficits, Sensation: no obvious gross deficits, Vital Signs: 18:24 BP 171 / 95; Pulse 87; Resp 18 S; Temp 97.9(TE); Pulse Ox 97% on R/A; aa5 20:00 BP 163 / 99; Pulse 82; Resp 15; Pulse Ox 95% ; cm10 20:10 BP 149 / 88 LA; cm10 20:10 BP 171 / 103 RA; cm10 20:30 BP 153 / 85; Pulse 75; Resp 15; Pulse Ox 97% ; cm10 MDM: 18:36 Medical Screening Exam initiated cp 19:00 Differential diagnosis: abnormal EKG, acute myocardial infarction, acute pericarditis, cp chest wall pain, pleurisy, pneumonia, pneumothorax, pulmonary embolus, pneumonia, Pneumothorax Unstable Angina. 21:00 Data reviewed: vital signs, nurses notes, lab test result(s), EKG, radiologic studies, cp CT scan, plain films, and as a result, I will admit patient. 21:00 Antibiotic administration: Not indicated, the patient does not have an appreciated cp infiltrate. The patient was not given aspirin in the Emergency Department. Not indicated due to patient's past medical history. Management of patient was discussed with the following: Hospitalist: DR Campbell who will admit after discussion. I considered the following discharge prescriptions or medication management in the emergency department Medications were administered in the Emergency Department. See MAR. Independent interpretation of the following test(s) in the Emergency Department EKG: See my EKG interpretation above. Care significantly affected by the following chronic conditions: Diabetes, Hypertension, Obesity. Counseling: I had a detailed discussion with the patient and/or guardian regarding the historical points, exam findings, and any diagnostic results supporting the discharge/admit diagnosis, lab results, radiology results, the need for further work-up and treatment in the hospital. Response to treatment: the patient's symptoms have mildly improved after treatment. 12/06 18:45 Order name: Basic Metabolic Panel; Complete Time: 19:21 cp 12/06 19:21 Interpretation: Normal except: GLUC 228; GFR 85. cp 12/06 18:45 Order name: CBC with Diff; Complete Time: 19:21 cp 12/06 18:45 Order name: LFT's; Complete Time: 19:21 cp 12/06 18:45 Order name: Magnesium; Complete Time: 19:21 cp 12/06 18:45 Order name: NT PRO-BNP; Complete Time: 19:21 cp 12/06 18:45 Order name: PT-INR; Complete Time: 19:21 cp 12/06 18:45 Order name: Troponin HS; Complete Time: 19:21 cp 0210 19:21 Interpretation: Reviewed. cp 12/06 18:45 Order name: Ptt, Activated; Complete Time: 19:21 cp 12/06 21:31 Order name: Urinalysis w/ reflexes EDMS 12/07 04:44 Order name: Troponin High Sensitivity EDMS 12/06 18:45 Order name: XRAY Chest (1 view); Complete Time: 19:43 cp 12/06 19:44 Interpretation: Report review. cp 12/06 19:23 Order name: CT Aorta for Dissection; Complete Time: 20:12 cp 12/06 18:45 Order name: EKG; Complete Time: 18:45 cp 12/06 18:45 Order name: Cardiac monitoring; Complete Time: 18:45 cp 12/06 18:45 Order name: EKG - Nurse/Tech; Complete Time: 18:45 cp 12/06 18:45 Order name: IV Saline Lock; Complete Time: 18:45 cp 12/06 18:45 Order name: Labs collected and sent; Complete Time: 18:54 cp 12/06 18:45 Order name: O2 Per Protocol; Complete Time: 18:45 cp 12/06 18:45 Order name: O2 Sat Monitoring; Complete Time: 18:45 cp 12/06 19:18 Order name: Blood Pressure Recheck: bilateral upper extremity; Complete Time: 20:11 cp EC:42 Rate is 89 beats/min. Rhythm is regular. VA interval is normal. QRS interval is normal. cp QT interval is normal. Interpreted by me. Reviewed by me. Administered Medications: 20:19 Drug: morphine IVP or IV 4 mg IVP once over 4 mins Route: IVP; Infused Over: 4 mins; cm10 Site: right wrist; 20:36 Follow up: Response: No adverse reaction cm10 20:19 Drug: Ondansetron IVP 4 mg IVP once; over 2 minutes Route: IVP; Site: right wrist; cm10 20:36 Follow up: Response: No adverse reaction cm10 20:27 Not Given (Physician Discretion): [id number] mg IV at calculated rate once over 2 cp mins; For SBP greater than 140. Hold for HR less than 60, notify provider. 20:36 Drug: Clopidogrel PO 75 mg PO once Route: PO; cm10 21:05 Follow up: Response: No adverse reaction cm10 20:36 Drug: Metoprolol PO 25 mg PO once Route: PO; cm10 21:05 Follow up: Response: No adverse reaction cm10 21:28 Drug: morphine IVP or IV 4 mg IVP once over 4 mins Route: IVP; Infused Over: 4 mins; al5 Site: right forearm; 12/07 01:50 Follow up: Response: No adverse reaction lg3 Disposition: 10:05 Co-signature as Attending Physician, Anders Conway MD I reviewed the patient's care rn provided by the Advanced Practice Provider and agree with the diagnosis and treatment plan. Disposition Summary: 12/06/24 20:57 Hospitalization Ordered Notes: Hospitalization Status: Observation cp Provider: Roni Campbell cp Condition: Stable cp Problem: new cp Symptoms: have improved cp Bed/Room Type: Standard cp Location: Telemetry/MedSurg (observation)(12/07/24 06:27) Room Assignment: 406(12/07/24 06:27) Diagnosis - Chest pain, unspecified cp - Aortic aneurysm of unspecified site, without rupture cp Forms: - Medication Reconciliation Form cp - SBAR form cp - Leadership Thank You Letter cp Signatures: Dispatcher [employer] EDLiz Bowers RN RN kl Nieto, Roman, MD MD rn Calderon, Audri RN RN aa5 Ian Koch PA PA cp Able, Lacie RN LUISA moore3 Saima Sharp RN RN cm10 Sweetie Mishra RN RN al5 Corrections: (The following items were deleted from the chart) 12/06 18:38 18:36 PSHx: pancreas; aa5 aa5 19:23 19:23 Angio Aorta For Dissection+CT.RAD.BRZ ordered. [facility] EDPA 20:39 18:50 This 74 yrs old Female presents to ER via Wheelchair with complaints of cp Shortness Of Breath, Breathing Difficulty. cp 12/07 02:35 12/06 20:57 Telemetry/MedSurg (observation) cp lg3 12/07 02:35 12/06 20:57 cp lg3 12/07 06:27 02:35 [facility] ER HOLD lg3 kl 06:27 02:35 ERHOLD- lg3 kl
--- NOTE | 2024-12-06 20:57 | ER ---
Nurse's Notes [facility] Name: Sapphire Martinez Age: 74 yrs Sex: Female : 1950 Arrival Date: 12/06/2024 Time: 18:11 Bed 7 Private MD: Diagnosis: Chest pain, unspecified;Aortic aneurysm of unspecified site, without rupture Presentation: 12/06 18:24 Chief complaint: Chief complaint: Patient states: chest pain that began yesterday, pt aa5 also reports SOB, pain to left side of neck, and reports numbness to left arm since 1729 today, denies any weakness. 18:24 Coronavirus screen: shortness of breath. Ebola Screen: Patient denies travel to an [facility] Ebola-affected area in the 21 days before illness onset. Initial Sepsis Screen: Does the patient meet any 2 criteria? No. Patient's initial sepsis screen is negative. Does the patient have a suspected source of infection? No. Patient's initial sepsis screen is negative. Risk Assessment: Do you want to hurt yourself or someone else? Patient reports no desire to harm self or others. Onset of symptoms was November 2024. 18:24 Acuity: TONY 2 aa5 18:24 Method Of Arrival: Wheelchair aa5 Historical: - Allergies: 18:36 Advil; aa5 18:36 Aleve; aa5 - PMHx: 18:36 Arthritis; Colitis; Diabetes - NIDDM; gastritis; Hyperlipidemia; Hypertension; aa5 - PSHx: 18:36 hysterectomy (Unknown); Bladder lift (Unknown); Pancreas mass removed (Unknown); lenny aa5 knee sx (Unknown); left shoulder sx (Unknown); - Immunization history:: Adult Immunizations unknown. - Infectious Disease History:: Denies. - Social history:: Smoking status: Patient denies any tobacco usage or history of. Screenin:03 [facility] ED Fall Risk Assessment (Adult) History of falling in the last 3 months, cm10 including since admission No falls in past 3 months (0 pts) Confusion or Disorientation No (0 pts) Intoxicated or Sedated No (0 pts) Impaired Gait No (0 pts) Mobility Assist Device Used Yes (1 pt) Altered Elimination No (0 pt) Score/Fall Risk Level 0 - 2 = Low Risk Oriented to surroundings, Maintained a safe environment, Hourly rounding (assess needs \T\ fall precautionary measures) done. Abuse screen: Denies threats or abuse. Denies injuries from another. Nutritional screening: No deficits noted. Tuberculosis screening: No symptoms or risk factors identified. Assessment: 19:00 General: Appears in no apparent distress. comfortable, Behavior is calm, cooperative. cm10 Neuro: No deficits noted. Level of Consciousness is awake, alert, obeys commands, Oriented to person, place, time, situation, Appropriate for age Reports numbness in left arm. 19:01 Pain: Complains of pain in chest. Cardiovascular: Rhythm is regular. Respiratory: No cm10 deficits noted. Airway is patent Respiratory effort is even, unlabored, Respiratory pattern is regular, symmetrical. 19:03 Musculoskeletal: No deficits noted. Range of motion: intact in all extremities. cm10 21:05 Reassessment: Patient appears in no apparent distress at this time. Patient and/or cm10 family updated on plan of care and expected duration. Pain level reassessed. Patient is alert, oriented x 3, equal unlabored respirations, skin warm/dry/pink. Vital Signs: 18:24 BP 171 / 95; Pulse 87; Resp 18 S; Temp 97.9(TE); Pulse Ox 97% on R/A; aa5 20:00 BP 163 / 99; Pulse 82; Resp 15; Pulse Ox 95% ; cm10 20:10 BP 149 / 88 LA; cm10 20:10 BP 171 / 103 RA; cm10 20:30 BP 153 / 85; Pulse 75; Resp 15; Pulse Ox 97% ; cm10 ED Course: 18:15 Patient's name was called from ER lobby. No response. aa5 18:20 Patient arrived in ED. al6 18:23 Ian Koch PA is PHCP. cp 18:23 Anders Conway MD is Attending Physician. cp 18:24 Arm band placed on. aa5 18:39 Triage completed. aa5 18:39 Patient has correct armband on for positive identification. Placed in gown. Bed in low ap3 position. Call light in reach. Side rails up X2. Adult w/ patient. Client placed on continuous cardiac and pulse oximetry monitoring. NIBP monitoring applied. patient monitor on. Pulse ox on. NIBP on. 18:39 EKG done, by ED staff, reviewed by Ian WAKEFIELD. ap3 18:39 Initial lab(s) drawn, by me, sent to lab. Inserted saline lock: 20 gauge in right cm10 wrist, using aseptic technique. Blood collected. Flushed with 10 mL NS. 19:13 XRAY Chest (1 view) In Process Unspecified. EDMS 19:50 CT Aorta for Dissection In Process Unspecified. EDMS 20:10 Saima Sharp, LUISA is Primary Nurse. cm10 20:55 oRni Campbell MD is Hospitalizing Provider. cp 12/07 01:49 No provider procedures requiring assistance completed. Patient admitted, IV remains in lg3 place. Administered Medications: 12/06 20:19 Drug: morphine IVP or IV 4 mg IVP once over 4 mins Route: IVP; Infused Over: 4 mins; cm10 Site: right wrist; 20:36 Follow up: Response: No adverse reaction cm10 20:19 Drug: Ondansetron IVP 4 mg IVP once; over 2 minutes Route: IVP; Site: right wrist; cm10 20:36 Follow up: Response: No adverse reaction cm10 20:27 Not Given (Physician Discretion): [id number] mg IV at calculated rate once over 2 cp mins; For SBP greater than 140. Hold for HR less than 60, notify provider. 20:36 Drug: Clopidogrel PO 75 mg PO once Route: PO; cm10 21:05 Follow up: Response: No adverse reaction cm10 20:36 Drug: Metoprolol PO 25 mg PO once Route: PO; cm10 21:05 Follow up: Response: No adverse reaction cm10 21:28 Drug: morphine IVP or IV 4 mg IVP once over 4 mins Route: IVP; Infused Over: 4 mins; al5 Site: right forearm; 12/07 01:50 Follow up: Response: No adverse reaction lg3 Medication: 12/06 19:03 VIS not applicable for this client. cm10 Outcome: 20:57 Decision to Hospitalize by Provider. cp 12/07 01:49 Admitted to ER Hold. Please see [facility] for further documentation. lg3 Condition: stable Instructed on the need for admit, 07:26 Patient left the ED. ld1 Signatures: Dispatcher [employer] EDMS Pam Perrin RN RN aa5 Ian Koch PA PA cp Prokisch, Amanda, RN RN ap3 Estella Mcknight, RN RN lg3 Carmela Ramirez, RN RN ld1 Saima Sharp, RN RN cm10 Sweetie Mishra, RN RN al5 Christa Sloan6 Corrections: (The following items were deleted from the chart) 12/06 18:38 18:36 PSHx: pancreas; aa5 aa5 18:39 18:24 Chief complaint: aa5 aa5 19:01 19:00 Neuro: No deficits noted. Level of Consciousness is awake, alert, obeys commands, cm10 Oriented to person, place, time, situation, Appropriate for age cm10 20:24 20:23 BP 163 / 99; Pulse 82bpm; Resp 15bpm; Pulse Ox 95%; cm10 cm10
--- NOTE | 2024-12-06 21:28 | P.HP ---
Certification for Inpatient Patient admitted to: Observation With expected LOS: <2 Midnights Practitioner: I am a practitioner with admitting privileges, knowledge of patient current condition, hospital course, and medical plan of care. Services: Services provided to patient in accordance with Admission requirements found in Title 42 Section 412.3 of the Code of Federal Regulations Patient History Date of Service: 12/07/24 Reason for admission: CP/SOB History of Present Illness: 74-year-old female with past medical history of diabetes, hypertension, gastritis, hyperlipidemia, arthritis, history of colitis, history of pancreatic mass which was removed who was brought to ER with chest pain. Chest pain is located in the left side of the chest not radiating, denies any diaphoresis. Associated with some shortness of breath with minimal exertions. Denies any fever or chills. No sick contacts. Pain started yesterday and has been progressively getting worse and was brought to ER. At the time of interview the pain is slightly better. Denies any nausea vomiting or diarrhea. No sick contacts. Patient was assessed in the ER was admitted for further management of chest pain to rule out ACS Allergies ibuprofen [From Advil] Allergy (Verified 05/25/20 02:31) Unknown Home medications list reviewed: Yes Home Medications: Aspirin [Aspirin EC 81 MG] 1 tab PO DAILY 05/25/20 Atorvastatin Calcium [Lipitor] 40 mg PO BEDTIME 05/25/20 Glipizide [Glipizide ER] 5 mg PO BID 05/25/20 Metformin HCl 1,000 mg PO BID 05/25/20 Omeprazole [Prilosec] 40 mg PO DAILY 05/25/20 Albuterol Inhaler [Ventolin Inhaler*] 2 puff IH Q6H PRN #1 hfa.aer.ad 05/29/20 Benzonatate [Tessalon Perle*] 200 mg PO TID PRN #30 cap 05/29/20 Guaifen W/Codeine Syrup [ROBITUSSIN A-C Syrup*] 10 ml PO BID PRN #100 ml 05/29/20 Apixaban [Eliquis] 5 mg PO BID #14 tablet 06/01/20 Ascorbic Acid [Vitamin C*] 500 mg PO TID #21 tablet 06/01/20 Insulin 70/30 NPH/Reg Human [Novolin 70/30*] 20 unit SQ BIDAC ml 06/01/20 Melatonin [Melatonin*] 3 mg PO BEDTIME tablet 06/01/20 Midodrine HCl [Proamatine*] 5 mg PO TID #30 tab 06/01/20 Thiamine HCl [Vitamin B-1*] 100 mg PO DAILY #15 tablet 06/01/20 Zinc Sulfate [Zinc Sulfate*] 220 mg PO DAILY #15 cap 06/01/20 Nitroglycerin [Nitrostat*] 0.4 mg SL UD PRN #20 tab 07/17/21 Ciprofloxacin HCl [Cipro 500 MG Tablet] 500 mg PO BID 7 Days #14 tab 06/05/24 Pantoprazole Sodium [Protonix] 40 mg PO DAILY 30 Days #30 tab 06/05/24 Sucralfate [Carafate] 1 gm PO TID 10 Days #30 tab 06/05/24 - Past Medical/Surgical History Diabetic: Yes Past Medical History: Reviewed- Non-Contributory -: Htn -: NIDDM -: Hyperlipdemia Past Surgical History: Reviewed- Non-Contributory -: removal of pancreas -: hysterectomy -: knee surgery - Family History Family History: Reviewed- Non-Contributory - Social History Smoking Status: Never smoker Alcohol use: No CD- Drugs: No Caffeine use: Yes Review of Systems 10-point ROS is otherwise unremarkable Physical Examination - Vital Signs Temperature: 97.8 F Blood Pressure: 132/68 Pulse: 76 Respirations: 18 Pulse Ox (%): 94 - Physical Exam General: Alert, In no apparent distress, Oriented x3, Obese HEENT: Atraumatic, Normocephalic Neck: Supple Respiratory: Clear to auscultation bilaterally, Normal air movement Cardiovascular: Regular rate/rhythm, Normal S1 S2 Capillary refill: <2 Seconds Gastrointestinal: Soft and benign, W/out hepatosplenomegaly Musculoskeletal: No clubbing Integumentary: No rashes Neurological: Normal strength at 5/5 x4 extr, Cranial nerves 3-12 intact, Normal reflexes 2+ Lymphatics: No axilla or inguinal lymphadenopathy - Studies Laboratory Data (last 24 hrs) 12/06/24 12/06/24 12/06/24 18:50 18:50 18:50 WBC 8.40 Hgb 13.6 Hct 40.7 Plt Count 204 PT 10.8 INR 1.03 APTT 32.8 Sodium 136 Potassium 3.6 BUN 16 Creatinine 0.74 Glucose 228 H Magnesium 1.7 Total Bilirubin 0.3 AST 20 ALT 26 Alkaline Phosphatase 113 Assessment and Plan - Plan Chest pain rule out ACS Will trend cardiac enzymes Will monitor telemetry Started on aspirin and statin EKG did not show any acute changes suggestive of ischemia Patient denies any chest pain at the time of interview Will get an echocardiogram Cardiology consult Thoracic aortic aneurysm CT chest findings noted No dissection. Ascending thoracic aortic aneurysm is unchanged measuring 4.1 cm. No abdominal aortic aneurysm No acute or significant abnormalities in the chest, abdomen, or pelvis. Pulmonary nodules in CT Pulmonary nodules which are stable since 06/04/2024. Recommend 12 month follow-up chest CT as only 6 months of stability have been established and given the size of the nodules Hypertension Antihypertensives titrated Continue home medications and titrate as needed Hyperlipidemia Continue statin Diabetes Insulin sliding scale Accu-Chek before every meal and at bedtime GI/DVT prophylaxis Advanced directive full code Discharge Plan: Home Plan to discharge in: 24 Hours - Advance Directives Does patient have a Living Will: No Does patient have a Durable POA for Healthcare: No - Code Status/Comfort Care Code Status: Full Code Time Spent Managing Pts Care (In Minutes): 48
[2024-12-07 02:07] LABS: Urine Bilirubin NEGATIVE (Negative); Urine Blood Negative (Negative); Urine Clarity Clear (Clear); Urine Color Colorless (Yellow); Urine Glucose 1+ (Negative); Urine Ketones NEGATIVE (Negative); Urine Microscopic Reflex YN NO UMIC; Urine Nitrite NEGATIVE (Negative); Urine Protein NEGATIVE (Negative); Urine Urobilinogen Normal (Normal)
[2024-12-07 02:19] VITALS: BMI 33.2
[2024-12-07] MEDS ORDERED: ACETAMINOPHEN 325 MG TABLET PO PRN (02:19)
[2024-12-07] MEDS ORDERED: HYDROCODONE/APAP 5/325 MG TAB PO PRN (02:21)
[2024-12-07] MEDS ORDERED: ONDANSETRON 4 MG/2 ML VIAL ONE (02:26)
[2024-12-07] MEDS ORDERED: MORPHINE 2 MG/ML SYR ONE (02:26)
[2024-12-07 02:30] LABS: Specific Gravity > 1.030 (1.005-1.030)
[2024-12-07] MEDS: MORPHINE 2 MG/ML SYR IV PRN (02:31)
[2024-12-07] MEDS: ONDANSETRON 4 MG/2 ML VIAL IV PRN (02:32)
[2024-12-07] MEDS ORDERED: PNEUMOCOCCAL VACCINE 0.5 ML IMVAC ONE (08:00)
[2024-12-07] MEDS: ASPIRIN EC 81 MG TAB PO SCH (08:59)
[2024-12-07] MEDS: ENOXAPARIN 40 MG/0.4 ML SQ SCH (08:59)
--- NOTE | 2024-12-07 11:24 | P.PN ---
Date of Service: 12/07/24 Subjective: chest pain improving no acute events overnight breathing okay on room air ROS: 10 point ROS as noted above, otherwise negative Physical Exam: GEN: Alert, oriented, NAD CV: Regular rate and rhythm, no edema Pulm: Nonlabored respirations on room air, clear bilaterally ABD: soft, nontender, nondistended Integumentary: No rashes Neuro: Normal speech, normal affect Problem List: Chest discomfort Thoracic aortic aneurysm 4.1 cm; stable Bilateral Pulmonary nodules; stable IDDM2 Hypertension Hyperlipidemia Hx of colitis/gastritis hx of pancreatic mass Chest discomfort on admission presents with chest pain for 2-3 days. Associated with SOB. Denies fever/chills. She reports fairly recent LHC which was okay per patient. No stents placed. (@[facility] ~1 year ago; unsure exact timing) CT chest (12/06):Ascending thoracic aortic aneurysm is unchanged measuring 4.1 cm. Pulmonary nodules which are stable since 06/04/2024 trend troponin's - negative x3. Monitor on telemetry. Cardiology consulted stress test ordered to further eval Echo ordered to eval EF / stenosis IDDM2 accu-cheks, SSI confirm home insulin regimen Hypertension Hyperlipidemia Hx of colitis/gastritis hx of pancreatic mass confirm home meds, restart as appropriate resume home statin, asa 81 mg. VTE: Lovenox Code: Full Dispo: Home Time Spent Managing Pts Care (In Minutes): 55
--- NOTE | 2024-12-07 11:43 | P.CNS ---
Date of Consult: 12/07/24 Chief Complaint: CP/SOB History of Present Illness: Patient presented with chest pain, left sided, has been going on for two days, no radiation, reproducible on exam, no other cardiac symptoms. Allergies ibuprofen [From Advil] Allergy (Verified 05/25/20 02:31) Unknown Home medications list reviewed: Yes Home Medications: Aspirin [Aspirin EC 81 MG] 1 tab PO DAILY 05/25/20 Atorvastatin Calcium [Lipitor] 40 mg PO BEDTIME 05/25/20 Glipizide [Glipizide ER] 5 mg PO BID 05/25/20 Metformin HCl 1,000 mg PO BID 05/25/20 Omeprazole [Prilosec] 40 mg PO DAILY 05/25/20 Albuterol Inhaler [Ventolin Inhaler*] 2 puff IH Q6H PRN #1 hfa.aer.ad 05/29/20 Benzonatate [Tessalon Perle*] 200 mg PO TID PRN #30 cap 05/29/20 Guaifen W/Codeine Syrup [ROBITUSSIN A-C Syrup*] 10 ml PO BID PRN #100 ml 05/29/20 Apixaban [Eliquis] 5 mg PO BID #14 tablet 06/01/20 Ascorbic Acid [Vitamin C*] 500 mg PO TID #21 tablet 06/01/20 Insulin 70/30 NPH/Reg Human [Novolin 70/30*] 20 unit SQ BIDAC ml 06/01/20 Melatonin [Melatonin*] 3 mg PO BEDTIME tablet 06/01/20 Midodrine HCl [Proamatine*] 5 mg PO TID #30 tab 06/01/20 Thiamine HCl [Vitamin B-1*] 100 mg PO DAILY #15 tablet 06/01/20 Zinc Sulfate [Zinc Sulfate*] 220 mg PO DAILY #15 cap 06/01/20 Nitroglycerin [Nitrostat*] 0.4 mg SL UD PRN #20 tab 07/17/21 Ciprofloxacin HCl [Cipro 500 MG Tablet] 500 mg PO BID 7 Days #14 tab 06/05/24 Pantoprazole Sodium [Protonix] 40 mg PO DAILY 30 Days #30 tab 06/05/24 Sucralfate [Carafate] 1 gm PO TID 10 Days #30 tab 06/05/24 - Past Medical/Surgical History Diabetic: Yes -: Htn -: NIDDM -: Hyperlipdemia -: removal of pancreas -: hysterectomy -: knee surgery - Social History Alcohol use: No CD- Drugs: No Caffeine use: Yes Review of Systems 10-point ROS is otherwise unremarkable Physical Examination Temp Pulse Resp BP Pulse Ox 97.8 F 47 L 18 131/70 94 12/07/24 04:28 12/07/24 08:00 12/07/24 08:00 12/07/24 08:00 12/07/24 08:00 General: Alert, In no apparent distress HEENT: Atraumatic, PERRLA, Mucous membr. moist/pink, EOMI, Sclerae nonicteric Neck: Supple, 2+ carotid pulse no bruit, No LAD, Without JVD or thyroid abnormality Respiratory: Clear to auscultation bilaterally, Normal air movement Cardiovascular: Regular rate/rhythm, Normal S1 S2 Gastrointestinal: Normal bowel sounds, No tenderness Musculoskeletal: No tenderness Integumentary: No rashes Neurological: Normal gait, Normal speech, Normal tone, Normal affect Lymphatics: No axilla or inguinal lymphadenopathy Laboratory Data (last 24 hrs) 12/06/24 12/06/24 12/06/24 18:50 18:50 18:50 WBC 8.40 Hgb 13.6 Hct 40.7 Plt Count 204 PT 10.8 INR 1.03 APTT 32.8 Sodium 136 Potassium 3.6 BUN 16 Creatinine 0.74 Glucose 228 H Magnesium 1.7 Total Bilirubin 0.3 AST 20 ALT 26 Alkaline Phosphatase 113 - Problems (1) Chest pain Current Visit: No Status: Acute Plan: atypical with negative cardiac enzymes. agree with stress test due to risk factors. continue ASA 81 mg daily continue lipitor 40 mg daily Qualifiers: Chest pain type: unspecified Qualified Code(s): R07.9 - Chest pain, unspecified (2) Hypertension Current Visit: No Status: Chronic Plan: continue to monitor Qualifiers: Hypertension type: primary hypertension Qualified Code(s): I10 - Essential (primary) hypertension
[2024-12-07] MEDS ORDERED: REGADENOSON 0.4 MG/5 ML SYR IV ONE (12:00)
[2024-12-07 12:32] VITALS: O2SAT 94
--- NOTE | 2024-12-07 12:42 | EKG ---
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
[2024-12-07 12:48] VITALS: BP 129/69; TEMP 97.7
--- NOTE | 2024-12-07 12:49 | RAD REPORT ---
EXAM :Rest Stress Cardiac Imaging CLINICAL HISTORY: Chest pain TECHNIQUE: Rest images: 10.4 mCi technetium 99m sestamibi administered intravenously. Stress images: 29.6 mCi of technetium 99m sestamibi administered intravenously. Cardiac SPECT images obtained COMPARISON: None. FINDINGS: Moderate area of diminished radiotracer uptake involving the apical left ventricular myocardium on re st and stress images. No additional significant abnormality. Left ventricular ejection fraction equals 53% IMPRESSION: Moderate perfusion defect involving the apical left ventricular myocardium probably infarction. No evidence of stress-induced ischemia
--- NOTE | 2024-12-07 13:12 | TREADPHA ---
DX: CHEST PAIN Date of Study: 12/07/2024 Ht: 5' 0 " Wt: 169 lb 15.975 oz Consulting Physician: JET MEDICATIONS: TYLENOL, NORCO, ASPIRIN, LIPITOR, LOVENOX, MORPHINE, ZOFRAN, PNEUMOVAX HISTORY: 74 YEAR OLD FEMALE WITH COMPLAINTS OF CHEST PAIN. HISTORY OF HYPERTENSION, DIABETES MELLITUS, HYPERLIPIDEMIA, ARTHRITIS PHYSICIAL EXAMINATION: RESTING B.P.: 123/76 RESTING H.R.: 52 RESTING EKG: SINUS RHYTHM PROTOCOL: PHARMACOLOGIC EXERCISE TIME: 3:30 B.P. AT [place] STRESS: 144/70 IMPRESSION: LEXISCAN STRESS TEST PERFORMED ORDERED. CARDIOLITE INJECTED PER PROTOCOL. NO SUPRAVENTRICULAR TACHYCARDIA, VENTRICULAR TACHYCARDIA NOTED. PREMATURE ATRIAL COMPLEXES NOTED DURING PROCEDURE AND POST PROCEDURE. COMPLAINTS OF HEADACHE.
[2024-12-07] MEDS ORDERED: ATORVASTATIN 40 MG TAB PO SCH (21:00)
--- NOTE | 2024-12-08 06:44 | P.DS ---
Admission Date: 12/06/24 Discharge Date: 12/07/24 Disposition: ROUTINE DISCHARGE Discharge Condition: GOOD Reason for Admission: CP/SOB Consultations: Cardiology - Dr. 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 Chest pain is located in the left side of the chest not radiating, denies any diaphoresis. Associated with some shortness of breath with minimal exertions. Denies any fever or chills. No sick contacts. Pain started yesterday and has been progressively getting worse and was brought to ER. At the time of interview the pain is slightly better. Denies any nausea vomiting or diarrhea. No sick contacts. Patient was assessed in the ER was admitted for further management of chest pain to rule out ACS Hospital Course: Problem List: Chest discomfort Thoracic aortic aneurysm 4.1 cm; stable Bilateral Pulmonary nodules; stable IDDM2 Hypertension Hyperlipidemia Hx of colitis/gastritis hx of pancreatic mass Physician discharge instructions: Patient presented with chest discomfort. Troponin's were negative x3. EKG was without any ischemic changes. CT chest with stable findings as noted below. Patient was evaluated by cardiology who recommended stress test to further evaluate which was negative for any acute / stress-induced ischemia. Given her negative stress test and atypical chest pain, recommended outpatient follow up in near future to further evaluate/monitor. No findings to warrant further testing/cardiac catheterization. Of note, she did report recent left heart cath at [facility] fairly recently which was okay per patient. Patient was feeling better, chest discomfort resolved, and was deemed stable for discharge. Follow up with Cardiology in next 2-4 weeks for further management. Stress test did note a fixed perfusion defect of left ventricle apex, but no stress-induced perfusion defect. Medications: continue home medications as previously prescribed Follow up: PCP 3-5 days Cardiology ~ 2-3 weeks Please call to schedule / confirm appointments CT chest: 1. No dissection. Ascending thoracic aortic aneurysm is unchanged measuring 4.1 cm. No abdominal aortic aneurysm 2. No acute or significant abnormalities in the chest, abdomen, or pelvis. 3. Pulmonary nodules which are stable since 06/04/2024. Recommend 12 month follow- up chest CT as only 6 months of stability have been established and given the size of the nodules Physical Exam: GEN: Alert, oriented, NAD CV: Regular rate and rhythm, no edema Pulm: Nonlabored respirations on room air, clear bilaterally ABD: soft, nontender, nondistended Integumentary: No rashes Neuro: Normal speech, normal affect Vital Signs/Physical Exam: Temp Pulse Resp BP Pulse Ox 97.7 F 52 18 129/69 95 12/07/24 12:00 12/07/24 12:00 12/07/24 12:00 12/07/24 12:00 12/07/24 12:00 Laboratory Data at Discharge: WBC 8.40 thou/uL (4.3-10.9) 12/06/24 18:50 Hgb 13.6 g/dL (12.0-15.0) 12/06/24 18:50 Hct 40.7 % (36.0-45.0) 12/06/24 18:50 Plt Count 204 thou/uL (152-406) 12/06/24 18:50 PT 10.8 SECONDS (9.4-12.5) 12/06/24 18:50 INR 1.03 12/06/24 18:50 APTT 32.8 SECONDS (24.3-36.9) 12/06/24 18:50 Sodium 136 mEq/L (136-145) 12/06/24 18:50 Potassium 3.6 mEq/L (3.5-5.1) 12/06/24 18:50 BUN 16 mg/dL (7-18) 12/06/24 18:50 Creatinine 0.74 mg/dL (0.55-1.02) 12/06/24 18:50 Glucose 228 mg/dL (74-106) H 12/06/24 18:50 Magnesium 1.7 mg/dL (1.6-2.4) 12/06/24 18:50 Total Bilirubin 0.3 mg/dL (0.2-1.0) 12/06/24 18:50 AST 20 U/L (15-37) 12/06/24 18:50 ALT 26 U/L (13-56) 12/06/24 18:50 Alkaline Phosphatase 113 U/L (45-117) 12/06/24 18:50 Home Medications: Aspirin [Aspirin EC 81 MG] 1 tab PO DAILY 05/25/20 Atorvastatin Calcium [Lipitor] 40 mg PO BEDTIME 05/25/20 Glipizide [Glipizide ER] 5 mg PO BID 05/25/20 Metformin HCl 1,000 mg PO BID 05/25/20 Omeprazole [Prilosec] 40 mg PO DAILY 05/25/20 Albuterol Inhaler [Ventolin Inhaler*] 2 puff IH Q6H PRN #1 hfa.aer.ad 05/29/20 Benzonatate [Tessalon Perle*] 200 mg PO TID PRN #30 cap 05/29/20 Guaifen W/Codeine Syrup [ROBITUSSIN A-C Syrup*] 10 ml PO BID PRN #100 ml 05/29/20 Apixaban [Eliquis] 5 mg PO BID #14 tablet 06/01/20 Ascorbic Acid [Vitamin C*] 500 mg PO TID #21 tablet 06/01/20 Insulin 70/30 NPH/Reg Human [Novolin 70/30*] 20 unit SQ BIDAC ml 06/01/20 Melatonin [Melatonin*] 3 mg PO BEDTIME tablet 06/01/20 Midodrine HCl [Proamatine*] 5 mg PO TID #30 tab 06/01/20 Thiamine HCl [Vitamin B-1*] 100 mg PO DAILY #15 tablet 06/01/20 Zinc Sulfate [Zinc Sulfate*] 220 mg PO DAILY #15 cap 06/01/20 Nitroglycerin [Nitrostat*] 0.4 mg SL UD PRN #20 tab 07/17/21 Ciprofloxacin HCl [Cipro 500 MG Tablet] 500 mg PO BID 7 Days #14 tab 06/05/24 Pantoprazole Sodium [Protonix] 40 mg PO DAILY 30 Days #30 tab 06/05/24 Sucralfate [Carafate] 1 gm PO TID 10 Days #30 tab 06/05/24 Physician Discharge Instructions: Physician discharge instructions: Patient presented with chest discomfort. Troponin's were negative x3. EKG was without any ischemic changes. CT chest with stable findings as noted below. Patient was evaluated by cardiology who recommended stress test to further evaluate which was negative for any acute / stress-induced ischemia. Given her negative stress test and atypical chest pain, recommended outpatient follow up in near future to further evaluate/monitor. No findings to warrant further testing/cardiac catheterization. Of note, she did report recent left heart cath at [facility] fairly recently which was okay per patient. Patient was feeling better, chest discomfort resolved, and was deemed stable for discharge. Follow up with Cardiology in next 2-4 weeks for further management. Stress test did note a fixed perfusion defect of left ventricle apex, but no stress-induced perfusion defect. Medications: continue home medications as previously prescribed Follow up: PCP 3-5 days Cardiology ~ 2-3 weeks Please call to schedule / confirm appointments CT chest: 1. No dissection. Ascending thoracic aortic aneurysm is unchanged measuring 4.1 cm. No abdominal aortic aneurysm 2. No acute or significant abnormalities in the chest, abdomen, or pelvis. 3. Pulmonary nodules which are stable since 06/04/2024. Recommend 12 month follow- up chest CT as only 6 months of stability have been established and given the size of the nodules Followup: Eric Pizarro MD [ACTIVE - CAN ADMIT] - 1-2 Weeks NONE,NONE [Primary Care Provider] - Time spent managing pt's care (in minutes): 45
== END 2024-12-07 15:24 | disposition home or self-care (01) ==
LOC: ER 18:11 → ERHOLD 21:27 → 4TH 12-07 07:14
PROVIDERS: ADMIT Family Medicine; ATTEND Hospitalist
DX: R07.9 Chest pain, unspecified (principal); R91.8 Other nonspecific abnormal finding of lung field; I71.20 Thoracic aortic aneurysm, without rupture, unspecified; R06.02 Shortness of breath; E11.9 Type 2 diabetes mellitus without complications; I10 Essential (primary) hypertension; K29.70 Gastritis, unspecified, without bleeding; E78.5 Hyperlipidemia, unspecified; M19.90 Unspecified osteoarthritis, unspecified site; K52.9 Noninfective gastroenteritis and colitis, unspecified; Z88.6 Allergy status to analgesic agent; Z79.4 Long term (current) use of insulin
CPT/HCPCS: 93005; 93017; 85025; 80048; 36415; 83735; 85610; 82947 ×2; 80076; 85730; 81003; 84484 ×4; 83880; 71275; 74175; 71045; 78452; Q9967; J2785; J1650; J2270; J2405 ×2; A9500; G0378

== ENCOUNTER 2025-02-19 15:05 | Emergency (ER) | payer OTHER ==
--- OUTSIDE RECORDS SUMMARY | 2025-02-19 15:44 | XMS REPORT | Continuity of Care Document ---
Author Name Unknown Address [address] [facility] [place] [address] [facility] Address [address] [facility] [address] [place] [address] Care Team Providers Care [facility] Laboratory Assistant Name Role Phone OTHER, ENTER NAME IN NOTES Primary Care Physicia n Unavailable PETRONA BURNETTE Attending Clinician Unavailable PRETTY ERNANDEZ Attending Clinician Unavailable PRETTY ERNANDEZ Attending Clinician Unavailable Pretty Ernandez MD Attending Clinician [phone] MONA MOSS Attending Clinician UnavailPetrona Beltrán MD Attending Clinician FABIAN GARCIA Attending Clinician Unavailable [email or web address] Attending Clinician Unavaila NICHOLE Purcell Attending Clinician Unav ailable NICHOLE PERSAUD Attending Clinician Unav ailable Vasu MORAN, Abdelrahman Velasquez Attending Clinician Unavail able KEISHA EAST Attending Clinician Unavailable Maxi Goldberg DO Attending Clinician [phone] Keisha East DO Attending Clinician [phone] Radiology Attending Clinician Unavailable RADIOLOGY Attending Clinician Unavailable CHRISTINA LOU Attending Clinician Unavailable BETSEY BOSS Attending Clinician Unavailable Enoch MANAGER HOME, Betsey Palumbo Attending Clinician + [phone] SALLY HODGE Attending Clinician Unavailabl e Doctor Unassigned, Chambers Attending Clinician U rafaailTANNER Kim Attending Clinician Unavailable SHANE KOHLER Attending Clinician Unavailable SOLOMON MILLAN Attending Clinician Unavailable Solomon Millan MD Attending Clinician [phone] ALICIA FARRELL Attending Clinician Unavailable Pretty Pizarro MD Attending Clinician [phone] Unassigned, Cath/Ep Attending Clinician Unavaila MAGGI Rodriguez Attending Clinician Unavailable Maggi Calloway MD Attending Clinician + [phone] Lila Alvarado MD Attending Clinician [phone] Lisette Peck RN Attending Clinician Unavailable KARTHIK AVILA Attending Clinician Unavailable Destiney Santillan Attending Clinician [phone] Karthik Avila MD Attending Clinician [phone] [email or web address]_S Admitting Clinician Unavaila KEISHA Oliver Admitting Clinician Unavailable Keisha East DO Admitting Clinician [phone] CHRISTINA LOU Admitting Clinician Unavailable BETSEY BOSS Admitting Clinician Unavailable SALLY HODGE Admitting Clinician Unav ailable SOLOMON MILLAN Admitting Clinician Unavailable PETRONA BURNETTE Admitting Clinician Unavailable Petrona Burnette MD Admitting Clinician [phone] Payers Payer Name Policy Type Policy Number Effective Date Expirati on Date Source [facility] DUAL COMP HMO D SNP [id number] 2021 00:00:00 [place] [id number] 2023 00:00:00 [facility] GROUP - [facility] (MEDICARE REPLACEMENT/ADVANTA GE - HMO) [id number] [facility] DUAL COMPLETE - DUAL ELIGIBLE - [facility] (MEDICARE-MEDICAID REPLACEMENT HMO) [id number] Problems Condition Name Condition Details Condition Category Status Onset Date Resolution Date Last Treatment Date Treating Clinician Comments Source Lateral cystocele Lateral Cystocele Problem Active 4-02 00:00: 00 [facility] Uncontroll ed type 2 diabetes mellitus Uncontroll ed Type 2 Diabetes Mellitus Problem Active 3-05 00:00: 00 [facility] Atrophic vaginitis Atrophic Vaginitis Problem Active 3-05 00:00: 00 [facility] Complete fecal incontinen ce Complete Fecal Incontinen ce Problem Active 3-05 00:00: 00 [facility] Urgent desire to urinate Urgent Desire to Urinate Problem Active 2-24 00:00: 00 [facility] Acute abdominal pain Acute abdominal pain Disease Active 2022-10 1-06 00:00: 00 [facility] Diabetes mellitus Diabetes Mellitus Problem Active 8 00:00: 00 [facility] Hyperchole sterolemia Hyperchole sterolemia Problem Active 830 00:00: 00 [facility] Cystocele Cystocele Problem Active 830 00:00: 00 [facility] 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 of Vaginal Vault after Hysterecto my Problem Active 830 00:00: 00 [facility] Atrophy of skeletal muscle of pelvis Atrophy of Skeletal Muscle of Pelvis Problem Active 8-30 00:00: 00 [facility] Female stress incontinen ce Female Stress Incontinen ce Problem Active 8-30 00:00: 00 [facility] Atrophy of vagina Atrophy of Vagina Problem Active 8-30 00:00: 00 [facility] Heartburn Heartburn Problem Active 8-30 00:00: 00 [facility] Incontinen ce of feces Incontinen ce of Feces Problem Active 8-30 00:00: 00 [facility] Urge incontinen ce of urine Urge Incontinen ce of Urine Problem Active 8- 00:00: 00 [facility] Left lower quadrant pain Left Lower Quadrant Pain Problem Active 06-25 00:00: 00 [facility] Hyperglyce gaudencio due to type 2 diabetes mellitus Hyperglyce gaudencio Due to Type 2 Diabetes Mellitus Problem Active 06-25 00:00: 00 [facility] Abnormal nuclear cardiac imaging test Abnormal nuclear cardiac imaging test Disease Active 2021-10 00:00: 00 Overview: Formattin g of this note might be different from the original. Added automatic ally from request for surgery [id number] [facility] PAF (paroxysma l atrial fibrillati on) PAF (paroxysma l atrial fibrillati on) Disease Active 2021-10 00:00: 00 Overview: Formattin g of this note might be different from the original. Added automatic ally from request for surgery [id number] [facility] Reflux gastritis Reflux gastritis Disease Active 2021-10 011 00:00: 00 [facility] Elevated brain natriureti c peptide (BNP) level Elevated brain natriureti c peptide (BNP) level Disease Active 2021-10 0-05 00:00: 00 [facility] Type 2 diabetes mellitus without complicati on, without long-term current use of insulin Type 2 diabetes mellitus without complicati on, without long-term current use of insulin Disease Active 2021-10 0-05 00:00: 00 [facility] Primary hypertensi on Primary hypertensi on Disease Active 2021-10 0-05 00:00: 00 [facility] Other hyperlipid emia Other hyperlipid emia Disease Active 2021-10 0-05 00:00: 00 [facility] Elevated brain natriureti c peptide (BNP) level Elevated brain natriureti c peptide (BNP) level Disease Active 2021-10 0-05 00:00: 00 [facility] Type 2 diabetes mellitus without complicati on, without long-term current use of insulin Type 2 diabetes mellitus without complicati on, without long-term current use of insulin Disease Active 2021-10 0-05 00:00: 00 [facility] Obesity (BMI 30-39.9) Obesity (BMI 30-39.9) Disease Active 2021-10 0-05 00:00: 00 [facility] Ascending aorta dilatation Ascending aorta dilatation Disease Active 2021-10 0-05 00:00: 00 [facility] Anticoagul ant long-term use Anticoagul ant long-term use Disease Active 2021-10 0-05 00:00: 00 [facility] No known active problems No known active problems Disease [facility] Abdominal pain Problem [facility] Chest pain Problem [facility] Dysuria Problem [facility] Laceration of finger Problem [facility] Lactic acidosis Problem [facility] Shortness of breath Problem [facility] Allergies, Adverse Reactions, Alerts Allergy Name Allergy Type Status Severity Reaction(s) Onset Date Inactive Date Treating Clinician Comments Source Ibuprofe n ([id number]) Allergy to substanc e Active Unknown 7-14 00:00: 00 [facility] ENALAPRI L DRUG INGREDI Active COUGH 2021-10 0-11 00:00: 00 [facility] Enalapri l Propensi ty to adverse reaction s Active Cough 2021-10 0-11 00:00: 00 [facility] n Propensi ty to adverse reaction to drug Active 5-19 00:00: 00 Toney Renner Advil - Oral Propensi ty to adverse reaction to drug Active 3-28 00:00: 00 Toney Renner Ibuprofe n Propensi ty to adverse reaction s Active Rash 1-03 00:00: 00 [facility] IBUPROFE N DRUG INGREDI Active Rash 1-03 00:00: 00 [facility] ibuprofe n DA Active U 4-09 00:00: 00 [facility] KNOWN ALLERGIE S Drug Class Active [facility] Social History Social Habit Start Date Stop Date Quantity Comments Source Gender identity [facility] of tobacco use [facility] Alcoholic beverage intake 2025-01-03 00:00:00 2025-01-03 00:00:00 Lifetime non-drinker (finding) [facility] Alcohol intake 2024-01-02 00:00:00 2024-01-02 00:00:00 Lifetime non-drinker (finding) [facility] History of Social function 2024-01-02 00:00:00 2024-01-02 00:00:00 [facility] Exposure to SARS-CoV-2 (event) 2023-03-01 00:00:00 2023-03-11 19:20:00 Not sure [facility] History SDOH Food Worry 2022-08-05 00:00:00 2022-08-05 00:00:00 1 [facility] History SDOH Food Scarcity 2022-08-05 00:00:00 2022-08-05 00:00:00 1 [facility] History SDOH Transport Med 2022-08-05 00:00:00 2022-08-05 00:00:00 2 [facility] History SDOH Transport Non-Med 2022-08-05 00:00:00 2022-08-05 00:00:00 2 [facility] Tobacco use and exposure 2021-10-29 00:00:00 2021-10-29 00:00:00 Smokeless tobacco non-user [facility] Sex assigned at 1950 00:00:00 1950 00:00:00 [facility] Smoking Status Start Date Stop Date Source Unknown if ever smoked [facility] Never smoked tobacco [facility] Medications Ordered Medication Name Filled Medication Name Start Date Stop Date Current Medication? Ordering Clinician Indication Dosage Frequency Signature (SIG) Comments Components Source omeprazole 40 mg capsule 01-19 11:10: 42 Yes 40mg Take 1 capsule by mouth daily. [facility] FAMOTIDINE ORAL 01-19 11:10: 42 Yes Take by mouth. [facility] SITagliptin 25 mg tablet 01-19 11:09: 36 Yes 25mg Take 1 tablet by mouth daily. [facility] amLODIPine 5 mg tablet 01-03 09:30: 15 Yes 5mg Take 1 tablet by mouth daily. [facility] glipiZIDE 10 mg tablet 10 09:30: 15 Yes 10mg Take 1 tablet by mouth 2 (two) times daily. [facility] apixaban 5 mg tablet 01-03 09:28: 15 Yes 5mg Take 1 tablet by mouth 2 (two) times daily. [facility] TRESIBA FLEXTOUCH U-100 100 unit/mL (3 mL) InPn 2-13 00:00: 00 Yes INJECT 10 UNITS SUBCUTANEO USLY NIGHTLY DIRECTED [facility] atorvastati n 40 mg tablet 2-10 00:00: 00 Yes mg Toney Renner famotidine 20 mg tablet 2-10 00:00: 00 Yes mg Toney Renner Tresiba FlexTouch U-100 insulin 100 unit/mL (3 mL) subcutaneou s pen 2-10 00:00: 00 Yes (3 mL) Toney Renner clotrimazol e 1 % topical cream 2-10 00:00: 00 Yes 1% Toney Renner amlodipine 5 mg tablet 2-10 00:00: 00 Yes 1mg Toney Renner pantoprazol e 40 mg tablet,merna yed release 2-10 00:00: 00 Yes 1mg Toney Renner Januvia 100 mg tablet 2-10 00:00: 00 Yes 1mg Toney Renner metformin 1,000 mg tablet 2-10 00:00: 00 Yes 1mg Toney Renner Eliquis 5 mg tablet 2-10 00:00: 00 Yes 1mg Toney Renner fluconazole 150 mg tablet 2-10 00:00: 00 Yes mg Toney Renner gabapentin 100 mg capsule 2-10 00:00: 00 Yes 1mg Toney Renner amlodipine 5 mg tablet 2-06 00:00: 00 Yes 1mg Toney Renner clotrimazol e 1 % topical cream 1-07 00:00: 00 Yes 1% Toney Renner fluconazole 150 mg tablet 11-02 00:00: 00 Yes 1mg Toney Renner triamcinolo ne acetonide 0.1 % topical cream [...] Toney Renner Eliquis 5 mg tablet 0 -16 00:00: 00 Yes 1mg Toney Renner gabapentin 100 mg capsule 0 -16 00:00: 00 Yes 1mg Toney Renner amlodipine 5 mg tablet 0 - 00:00: 00 Yes 1mg Toney Renner sucralfate 100 mg/mL oral suspension - 00:00: 00 Yes mg/mL Toney Renner Eliquis 5 mg tablet 0 - 00:00: 00 Yes 1mg Toney Renner CARAFATE 1 GM/10ML SUSP 03-07 00:00: 00 Yes Toney Renner atorvastati n 40 mg tablet - 00:00: 00 Yes mg Toney Renner amlodipine 5 mg tablet 0 - 00:00: 00 Yes 1mg Toney Renner pantoprazol e 40 mg tablet,merna yed release - 00:00: 00 Yes 1mg Toney Renner Januvia 100 mg tablet 0 - 00:00: 00 Yes 1mg Toney Renenr Eliquis 5 mg tablet 0 - 00:00: [...] mg by mouth 2 (two) times daily. [facility] atorvastati n 40 mg tablet 2022-10 11:38: 53 Yes 40mg Take 40 mg by mouth at bedtime. [facility] SITagliptin 25 mg tablet 2022-10 11:38: 53 Yes 25mg Take 25 mg by mouth daily. [facility] amLODIPine 5 mg tablet 2022-10 11:38: 53 Yes 5mg Take 5 mg by mouth daily. [facility] glipiZIDE 10 mg tablet 2022-10 11:38: 53 Yes 10mg Take 10 mg by mouth 2 (two) times daily. [facility] metFORMIN 1,000 mg tablet 2022-10 11:38: 53 Yes 1000mg Take 1,000 mg by mouth 2 (two) times daily with meals. [facility] omeprazole 40 mg capsule 2022-10 11:38: 53 Yes 40mg Take 1 capsule by mouth daily. [facility] AMOXICILLIN /CLAVULANAT E POTASSIUM 875-125 MG TABS 2022-10 00:00: 00 Yes Toney Renner TAKE 1 TABLET BY MOUTH EVERY 6 (SIX) HOURS NEEDED FOR PAIN (SCALE 4-6) FOR UP TO 7 DAYS. 2022-10 00:00: 00 Yes Toney Renner amoxicillin -clavulanat e (AUGMENTIN) 875-125 mg per tablet 2022-10 00:00: 00 09-16 05:59 :00 No [id number] 1{tbl} Take 1 tablet by mouth 2 (two) times daily for 10 days. [facility] traMADoL 50 mg tablet 2022-10 00:00: 00 09-13 05:59 :00 No [id number] 50mg Take 1 tablet by mouth every 6 (six) hours as needed for Pain (scale 4-6) for up to 7 days. Indication s: acute pain [facility] morpHINE (2 mg/mL) injection 2 mg 2022-10 04:22: 54 Yes 2mg 2 mg, Slow IV Push, Q6HPRN, Starting on Fri09/03/23 at 2222, Until Discontinu ed, Routine, Pain (scale 7-10), Pain (scale 4-6) [facility] KCL (KLOR-CON M20) tablet 40 mEq 2022-10 20:00: 00 09-03 20:15 :00 No 40meq 40 mEq, Oral, ONCE, 1 dose, On Fri09/03/23 at 1400, Routine [facility] magnesium sulfate in water 2 gram/50 mL (4 %) infusion 2 g 2022-10 16:15: 00 09-03 16:47 :00 No 2g 2 g, IV Piggyback, Administer over 60 Minutes, ONCE, 1 dose, On Fri09/03/23 at 1015, Routine [facility] atorvastati n (LIPITOR) tablet 40 mg 2022-10 03:00: 00 Yes 40mg 40 mg, Oral, QHS, First dose on Fri09/02/23 at 2100, Until Discontinu ed, Routine [facility] butalbital- acetaminoph en-caff (ESGIC) 50-325-40 mg tablet 1 tablet 2022-10 00:08: 37 Yes 1{tbl} 1 tablet, Oral, Q6HPRN, Starting on Fri09/02/23 at 1808, Until Discontinu ed, Routine, Headache [facility] acetaminoph en (TYLENOL) tablet 650 mg 2022-10 00:08: 26 Yes 650mg 650 mg, Oral, Q6HPRN, Starting on Fri09/02/23 at 1808, Until Discontinu ed, Routine, Pain (scale 1-3), Temp > 38 C [facility] Sliding Scale Insulin - Lispro (HumaLOG) 2022-10 18:00: 00 Yes Subcutaneo us, TID MEALS+HS, First dose on Fri09/02/23 at 1200, Until Discontinu ed, Routine [facility] amLODIPine (NORVASC) tablet 5 mg 2022-10 15:00: 00 Yes 5mg 5 mg, Oral, DAILY, First dose on Fri09/02/23 at 0900, Until Discontinu ed, Routine [facility] glucagon (GLUCAGEN DIAGNOSTIC KIT) injection 1 mg 2022-10 14:48: 44 Yes 1mg 1 mg, Intramuscu lar, PRN, Starting on Fri09/02/23 at 0848, Until Discontinu ed, AUDRA, Blood Glucose < or = 70 mg/dL and patient is NPO, unable to swallow or has mental changes. [facility] dextrose 50 % in water (D50W) injection 25 mL 2022-10 14:48: 44 Yes 25mL 25 mL, Slow IV Push, PRN, Starting on Fri09/02/23 at 0848, Until Discontinu ed, AUDRA, Blood Glucose < or = 70 mg/dL and patient is NPO, unable to swallow or has mental status changes. [facility] docusate (COLACE) capsule 100 mg 2022-10 14:00: 00 Yes 100mg 100 mg, Oral, BID, First dose on Fri09/02/23 at 0800, Until Discontinu ed, Routine [facility] apixaban (ELIQUIS) tablet 5 mg 2022-10 14:00: 00 Yes 5mg 5 mg, Oral, BID, First dose on Fri09/02/23 at 0800, Until Discontinu ed, Routine
Indicatio ns: Non-Valvul ar Atrial Fibrillati on [facility] piperacilli n-tazobacta m (ZOSYN) 3.375 g [...] Abdominal< br>Duratio n of Therapy: 7 days [facility] piperacilli n-tazobacta m (ZOSYN) 3.375 g in NaCl 0.9% (NS) 100 mL MINI-BAG 2022-10 02:15: 00 09-02 03:09 :00 No 3.375g 3.375 g, IV Piggyback, ONCE, 1 dose, On Fri09/01/23 at 2015, Administer over 30 Minutes, 100 mL
Reas on for Anti-Infec tive: Documented Infection< br>Documen meet Infection Site: Abdominal< br>Duratio n of Therapy: 7 days [facility] lactated ringers IV infusion 1,000 mL 2022-10 01:30: 00 Yes 1000mL at 75 mL/hr, 1,000 mL, IV Infusion, CONTINUOUS , Starting on Fri09/01/23 at 1930, Until Discontinu ed, Routine [facility] ondansetron (ZOFRAN (PF)) injection 4 mg 2022-10 01:18: 14 Yes 4mg 4 mg, Slow IV Push, Q6HPRN, Starting on Fri09/01/23 at 1918, Until Discontinu ed, Routine, Nausea and Vomiting (N/V) [facility] morpHINE (2 mg/mL) injection 4 mg 2022-10 01:18: 10 09-03 01:17 :10 No 4mg 4 mg, Slow IV Push, Q4HPRN, Starting on Fri09/01/23 at 1918, Until Fri09/02/23 at 1917, Routine, Pain (scale 7-10) [facility] iopamidol (ISOVUE 370-500 mL) injection 100 mL 2022-10 00:45: 00 09-02 00:45 :00 No [id number] 100mL 100 mL, Intravenou s, ONCE, 1 dose, On Fri09/01/23 at 1845, Routine [facility] acetaminoph en ADULT (OFIRMEV) injection 1,000 mg 2022-10 23:45: 00 09-01 23:15 :00 No 1000mg 1,000 mg, IV Infusion, at 400 mL/hr Administer over 15 Minutes, ONCE, 1 dose, On Fri09/01/23 at 1745, Routine
Indicatio n: Non-periop erative Patient
Approved by: Per Policy (NPO Status) [facility] FENTanyl PF (SUBLIMAZE (PF)) injection 75 mcg 2022-10 23:00: 00 09-01 22:59 :00 No 75ug 75 mcg, Slow IV Push, ONCE, 1 dose, On Fri09/01/23 at 1700, AUDRA [facility] NaCl 0.9% (NS) bolus infusion 500 mL 2022-10 22:51: 00 09-02 01:25 :00 No 500mL at 999 mL/hr, 500 mL, IV Infusion, ONCE, 1 dose, On Fri09/01/23 at 1700, STAT [facility] ondansetron (ZOFRAN (PF)) injection 4 mg 2022-10 22:49: 00 09-01 22:59 :00 No 4mg 4 mg, Slow IV Push, ONCE, 1 dose, On Fri09/01/23 at 1700, AUDRA [facility] NaCl 0.9% (NS) bolus infusion 500 mL 2022-10 22:30: 00 09-01 22:59 :00 No 500mL at 999 mL/hr, 500 mL, IV Infusion, ONCE, 1 dose, On Fri09/01/23 at 1630, [facility] atorvastati n 40 mg tablet 2022-10 00:00: 00 Yes mg Toney Camryn Renner glipizide 10 mg tablet 2022-10 00:00: 00 Yes mg Toney Renner amlodipine 5 mg tablet 2022-10 00:00: 00 Yes mg Toney F Zurdo gabapentin 100 mg capsule 2022-10 00:00: 00 [...] 06-22 06:00: 00 06-22 06:00 :00 No [id number] 100mL 100 mL, Intravenou s, ONCE, 1 dose, On 06/22/23 at 0100, Routine [facility] morpHINE (4 mg/mL) injection 4 mg 06-22 05:15: 00 06-22 04:44 :00 No 4mg 4 mg, Slow IV Push, ONCE, 1 dose, On 06/22/23 at 0015, Routine [facility] ondansetron (ZOFRAN (PF)) injection 4 mg 06-22 04:30: 00 06-22 04:43 :00 No 4mg 4 mg, Slow IV Push, ONCE, 1 dose, On 06/21/23 at 2330, AUDRA [facility] pantoprazol e (PROTONIX) EC tablet 40 mg 06-22 03:30: 00 Yes 40mg 40 mg, Oral, DAILY, First dose on 06/21/23 at 2230, Until Discontinu ed, Routine [facility] naproxen 500 mg tablet 06-22 01:55: 23 06-22 00:00 :00 No 500mg Take 500 mg by mouth 2 (two) times daily with meals. [facility] pantoprazol e 40 mg EC tablet 06-22 00:00: 00 07-23 04:59 :00 No [id number] 40mg Take 1 tablet by mouth 2 (two) times daily for 30 days. [facility] TAKE 1 CAPSULE 3 TIMES DAILY [...] 06/02/23 at 0900, Until Discontinu ed, Routine [facility] HYDROcodone -acetaminop hen (NORCO 5) 5-325 mg tablet 1 tablet 06-02 02:00: 00 06-02 02:19 :00 No 1{tbl} 1 tablet, Oral, ONCE, 1 dose, On 06/01/23 at 2100, AUDRA [facility] famotidine (PEPCID (PF)) injection 20 mg 06-01 23:45: 00 06-02 00:24 :00 No 20mg 20 mg, Slow IV Push, ONCE, 1 dose, [facility]01/23 at 1845[facility] 05-12 09:29: 00 06-12 00:00 :00 No 81 [facility] Pantoprazol e Sodium (Protonix Ec *) [address] Pantoprazol e Sodium (Protonix Ec *) [address] 05-12 09:29: 00 05-12 09:31 :00 No 40 [facility] ASPIRIN LOW DOSE 81 MG CHEW 05-12 00:00: 00 Yes Toney Renner TAKE 1 TABLET BY MOUTH THREE TIMES A DAY BEFORE MEALS FOR GASTRITIS 05-12 00:00: 00 Yes Toney Renner Glipizide (Glucotrol Xl *) 10 Mg Tablet ER 24HR Glipizide (Glucotrol Xl *) 10 Mg Tablet ER 24HR 05-10 08:14: 00 Yes 1 [facility] Amlodipine Besylate (Norvasc *) 5 Mg TAB Amlodipine Besylate (Norvasc *) 5 Mg TAB 05-10 08:11: 00 Yes 1 [facility] Apixaban (Eliquis *) 5 Mg TAB Apixaban (Eliquis *) 5 Mg TAB 05-10 08:11: 00 Yes 5 [facility] Atorvastati n Calcium (Lipitor *) 40 Mg TAB Atorvastati n Calcium (Lipitor *) 40 Mg TAB 05-10 08:11: 00 Yes 1 [facility] Cetirizine Hcl (Zyrtec *) 10 Mg TAB Cetirizine Hcl (Zyrtec *) 10 Mg TAB 05-10 08:11: 00 Yes 1 [facility] Sitagliptin Phosphate (Januvia 100 Mg*) 100 Mg TAB Sitagliptin Phosphate (Januvia 100 Mg*) 100 Mg TAB 05-10 08:11: 00 Yes 1 [facility] Metformin Hcl (Glucophage *) 500 Mg TAB Metformin Hcl (Glucophage *) 500 Mg TAB 05-10 07:43: 00 Yes 1000 [facility] JANUVIA 100 MG TABS 05-02 00:00: 00 [...] Toney Renner PANTOPRAZOL E SODIUM 40 MG [facility] 04-01 00:00: 00 Yes Toney Renner TAKE 1 TABLET TWICE A DAY 30 MINUTES BEFORE MEALS 03-24 00:00: 00 03-10 00:00 :00 No 10 Toney Renner Ondansetron Hcl (Zofran *) 4 Mg TAB Ondansetron Hcl (Zofran *) 4 Mg TAB 03-23 12:46: 00 Yes 1 [facility] ONDANSETRON HYDROCHLORI DE 4 MG TABS 03-23 00:00: 00 Yes Toney Renenr sucralfate 1 gram tablet 03-23 00:00: 00 Yes TAKE 1 TABLET BY MOUTH THREE TIMES DAILY BEFORE MEAL(S) FOR GASTRITIS [facility] maalox:diph enhydrAMINE :lidocaine 2 % viscous 1:1:1 (FIRST-MOUT HWASH BLM) oral suspension 15 mL 03-12 03:45: 00 03-12 03:37 :00 No 15mL 15 mL, Oral, ONCE, 1 dose, On Fri03/11/23 at 2245, [facility] furosem[facility] (LASIX) injection 10 mg 03-12 03:30: 00 03-12 03:37 :00 No 10mg 10 mg, IV Push, ONCE, 1 dose, On Fri03/11/23 at 2230, [facility] famotidine (PEPCID (PF)) injection 20 mg 03-12 02:45: 00 03-12 02:47 :00 No 20mg 20 mg, Slow IV Push, ONCE, 1 dose, On Fri03/11/23 at 2145, [facility] iopamidol (ISOVUE 370-500 mL) injection 75 mL 03-12 02:30: 00 03-12 02:45 :00 No [id number] 75mL 75 mL, Intravenou s, ONCE, 1 dose, On Fri03/11/23 at 2145, Routine [facility] PANTOPRAZOL E SODIUM 20 MG TBEC 03-12 00:00: 00 Yes Toney Renner pantoprazol e (PROTONIX) 20 mg EC tablet 03-11 00:00: 00 06-22 00:00 :00 No [id number] 20mg Take 1 tablet by mouth daily. [facility] TAKE 1 TABLET BY MOUTH TWICE A DAY 24 00:00: 00 Yes Toney Renner TAKE 1 TABLET BY MOUTH NIGHTLY 30 00:00: 00 Yes 40 Toney Renner TAKE [...] Take 40 mg by mouth at bedtime. [facility] SITagliptin 25 mg tablet 12-19 13:21: 52 Yes 25mg Take 25 mg by mouth daily. [facility] amLODIPine 5 mg tablet 12-19 13:21: 52 Yes 5mg Take 5 mg by mouth daily. [facility] glipiZIDE 10 mg tablet 12-19 13:21: 53 Yes 10mg Take 10 mg by mouth 2 (two) times daily. [facility] metFORMIN 1,000 mg tablet 12-19 13:21: 52 Yes 1000mg Take 1,000 mg by mouth 2 (two) times daily with meals. [facility] apixaban 5 mg tablet 12-19 13:21: 52 Yes 5mg Take 5 mg by mouth 2 (two) times daily. [facility] iohexol (OMNIPAQUE 300-100 mL) injection 11-21 14:47: 16 11-21 15:03 :49 No ONCE INTRA PROCEDURE, Starting on Dianna 11/21/22 at 0847, Until Dianna 11/21/22 at 0903, Routine, CV Intraproce dure [facility] heparin 1,000 unit/mL injection 11-21 14:11: 56 11-21 15:03 :49 No ONCE INTRA PROCEDURE, Starting on Dianna 11/21/22 at 0811, Until Dianna 11/21/22 at 0903, Routine, CV Intraproce dure [facility] nitroglycer in (TRIDIL) 2 mg in 10 mL D5W for Cardiac Cath 11-21 14:11: 31 11-21 15:03 :49 No ONCE INTRA PROCEDURE, Starting on Dianna 11/21/22 at 0811, Until Dianna 11/21/22 at 0903, Routine, CV Intraproce dure [facility] lidocaine 1% (PF) (XYLOCAINE) injection 11-21 14:07: 13 11-21 15:03 :49 No ONCE INTRA PROCEDURE, Starting on Dianna 11/21/22 at 0807, Until Dianna 11/21/22 at 0903, Routine, CV Intraproce dure [facility] midazolam (VERSED) injection 11-21 14:05: 17 11-21 15:03 :49 No ONCE INTRA PROCEDURE, Starting on Dianna 11/21/22 at 0805, Until Dianna 11/21/22 at 0903, Routine, CV Intraproce dure [facility] FENTanyl PF (SUBLIMAZE (PF)) injection 11-21 14:05: 08 11-21 15:03 :49 No ONCE INTRA PROCEDURE, Starting on Dianna 11/21/22 at 0805, Until Dianna 11/21/22 at 0903, Routine, CV Intraproce dure [facility] aspirin tablet 11-21 13:59: 19 11-21 15:03 :49 No ONCE INTRA PROCEDURE, Starting on Dianna 11/21/22 at 0759, Until Dianna 11/21/22 at 0903, Routine, CV Intraproce dure [facility] amLODIPine 5 mg tablet 11-21 12:27: 07 Yes 5mg Take 5 mg by mouth daily. [facility] glipiZIDE 10 mg tablet 11-21 12:27: 07 Yes 10mg Take 10 mg by mouth 2 (two) times daily. [facility] metFORMIN 1,000 mg tablet 11-21 12:27: 07 Yes 1000mg Take 1,000 mg by mouth 2 (two) times daily with meals. [facility] apixaban 5 mg tablet 11-21 12:27: 07 Yes 5mg Take 5 mg by mouth 2 (two) times daily. [facility] naproxen 500 mg tablet 11-21 12:27: 07 Yes 500mg Take 500 mg by mouth 2 (two) times daily with meals. [facility] atorvastati n 40 mg tablet 11-21 12:27: 07 Yes 40mg Take 40 mg by mouth at bedtime. [facility] SITagliptin 25 mg tablet 11-21 12:27: 07 Yes 25mg Take 25 mg by mouth daily. [facility] acetaminoph en (TYLENOL) tablet 650 mg 10-27 19:15: 00 10-27 19:19 :00 No 650mg 650 mg, Oral, ONCE, 1 dose, On 10/27/22 at 1315, AUDRA [facility] nirmatrelvi r-ritonavir 300 mg (150 mg x 2)-100 mg tablet 10-27 00:00: 00 06-01 00:00 :00 No [id number] 3{tbl} Take 3 tablets by mouth 2 (two) times daily. [facility] Dextrometho rphan-Guaif enesin (MUCINEX DM) 60-1,200 mg Tb12 10-27 00:00: 00 11-04 05:59 :00 No [id number] 1{tbl} Take 1 tablet by mouth every 12 (twelve) hours for 7 days. [facility] TAKE 1 TABLET BY MOUTH EVERY DAY 2021-10 00:00: 00 Yes Toney Renner TAKE 1 TABLET BY MOUTH NIGHTLY 2021-10- 00:00: 00 No 40 TAKE 1 TABLET BY MOUTH EVERY DAY 2021-10 00:00: 00 No 5 TAKE 1 TABLET BY MOUTH NIGHTLY 2021-10 00:00: 00 03-10 00:00 :00 No 40 Toney Camryn Renner Dose Unknown 2021-10 2-15 [...] PAIN 2021-10 2-15 00:00: 00 Yes Toney Renner ATORVASTATI N CALCIUM 40 MG TABS 2021-10 2-15 00:00: 00 Yes 40 Toney Camryn Renner Dose Unknown 2021-10 2-15 00:00: 00 Yes Toney Renner APPLY THIN FILM TO AFFECTED AREA 2 TIMES DAILY FOR 7 DAYS 2021-10 2-15 00:00: 00 Yes Toney Camryn [...] EVERY 12 HOURS FOR 7 DAYS 2021-10 215 00:00: 00 No TAKE 1 TABLET BY MOUTH EVERY 6 HOURS NEEDED FOR PAIN FOR UP TO 7 DAYS 2021-10 2- 00:00: 00 No Dose Unknown 2021-10 215 [...] 215 00:00: 00 No Dose Unknown 2021-10 2-15 00:00: 00 No Dose Unknown 2021-10 2-15 00:00: 00 No Dose Unknown 2021-10 2-15 00:00: 00 No Dose Unknown 2021-10 215 00:00: 00 No Dose Unknown 2021-10 2 00:00: 00 No Dose Unknown 2021-10 2 00:00: 00 No Dose Unknown 2021-10 2-15 00:00: 00 No Dose Unknown 2021-10 215 00:00: 00 No Dose Unknown 2021-10 2-15 00:00: 00 No TAKE 1 TABLET BY MOUTH TWICE A DAY WITH FOOD 2021-10 2 00:00: 00 No Dose Unknown 2021-10 215 00:00: 00 No TAKE 1 TABLET BY MOUTH TWICE DAILY NEEDED FOR PAIN 2021-10 2 00:00: 00 No ATORVASTATI N [...] DAY FOR 5 MINUTES AND RINSE. 2021-10 2 00:00: 00 03-10 00:00 :00 No Toney Renner USE DIRECTED ON PACKAGE 2021-10 2 00:00: 00 03-10 00:00 :00 [...] HOURS NEEDED 2021-10 00:00: 00 Yes Toney Camryn Zurdo APPLY TO SCALP EVERY OTHER DAY [...] 2021-10 00:00: 00 Yes Toney Camryn Zurdo TAKE 7.5 ML BY MOUTH EVERY 6 TO 8 HOURS NEEDED FOR COUGH 2021-10 00:00: 00 No TAKE 1 TABLET BY MOUTH TWICE A DAY 2021-10 00:00: 00 No OMEPRAZOLE [address] [facility] 2021-10 00:00: 00 No TAKE 1 TABLET BY MOUTH TWICE A DAY 2021-10 00:00: 00 No OMEPRAZOLE [address] [facility] 2021-10 00:00: 00 No TAKE 1 TABLET BY MOUTH TWICE A DAY 2021-10 00:00: 00 No OMEPRAZOLE [address] [facility] 2021-10 00:00: 00 No TAKE 1 TABLET BY MOUTH TWICE A DAY 2021-10 00:00: 00 03-10 00:00 :00 No Toney Renner OMEPRAZOLE [address] [facility] 2021-10 00:00: 00 03-10 00:00 :00 No Toney Renner TAKE 2 CAPSULES BY MOUTH EVERY 8 HOURS FOR 5 DAYS 2021-10 00:00: 00 Yes Toney Renner IBUPROFEN 400 MG TABS 2021-10 00:00: 00 Yes Jamaal Renner TAKE 2 CAPSULES BY MOUTH EVERY 8 HOURS FOR 5 DAYS 2021-10 1 00:00: 00 No IBUPROFEN 400 MG TABS [...] Renner KETOCONAZOL E 2 % SHAM 2021-10 0-18 00:00: 00 Yes Toney Renner TAKE 1 CAPSULE BY MOUTH EVERY DAY 2021-10 0-18 00:00: 00 No TAKE 1 CAPSULE BY MOUTH EVERY DAY 2021-10 018 00:00: 00 No TAKE 1 CAPSULE BY MOUTH EVERY DAY 2021-10 018 00:00: 00 No Dose Unknown 2021-10 0-18 00:00: 00 No Dose Unknown 2021-10 0-18 00:00: 00 03-10 00:00 :00 No Toney Renner regadenoson (LEXISCAN) injection 0.4 mg 2021-10 013 18:15: 00 08-08 17:58 :00 No [id number] .4mg 0.4 mg, IV Push, ONCE, 1 dose, On Fri08/08/22 at 1315, Routine
member of parliament approving Restricted medication : PETRONA BURNETTE [facility] tc 99m-tetrofo smin (MYOVIEW) injection 39.1 millicurie 2021-10 013 17:30: 00 08-08 17:24 :00 No [id number] 39.1mCi 39.1 millicurie , Intravenou s, ONCE, 1 dose, On Dianna 08/08/22 at 1230, Routine [facility] tc 99m-tetrofo smin (MYOVIEW) injection 15.5 millicurie 2021-10 16:30: 00 08-08 16:22 :00 No [id number] 15.5mCi 15.5 millicurie , Intravenou s, ONCE, 1 dose, On Dianna 08/08/22 at 1130, Routine [facility] omeprazole 40 mg capsule 2021-10 12:01: 28 08-06 00:00 :00 No 40mg Take 40 mg by mouth daily. [facility] OMEPRAZOLE 40 MG CPDR 2021-10 00:00: 00 Yes Toney Renner omeprazole 40 mg capsule 2021-10 00:00: 00 06-22 00:00 :00 No [id number] 40mg Take 1 capsule by mouth daily. [facility] maalox:diph enhydrAMINE :lidocaine 2 % viscous 1:1:1 (FIRST-MOUT HWASH BLM) oral suspension 15 mL 2021-10 15:45: 00 08-02 16:29 :00 No 15mL 15 mL, Oral, ONCE, 1 dose, On Fri08/02/22 at 1045, Routine [facility] SITagliptin 25 mg tablet 2021-10 14:21: 05 Yes 25mg Take 25 mg by mouth daily. [facility] amLODIPine 5 mg tablet 2021-10 14:21: 05 Yes 5mg Take 5 mg by mouth daily. [facility] glipiZIDE 10 mg tablet 2021-10 14:21: 05 Yes 10mg Take 10 mg by mouth 2 (two) times daily. [facility] omeprazole 40 mg capsule 2021-10 14:21: 05 Yes 40mg Take 40 mg by mouth daily. [facility] metFORMIN 1,000 mg tablet 2021-10 14:21: 05 Yes 1000mg Take 1,000 mg by mouth 2 (two) times daily with meals. [facility] apixaban 5 mg tablet 2021-10 14:21: 05 Yes 5mg Take 5 mg by mouth 2 (two) times daily. [facility] naproxen 500 mg tablet 2021-10 14:21: 05 Yes 500mg Take 500 mg by mouth 2 (two) times daily with meals. [facility] atorvastati n 40 mg tablet 2021-10 14:21: 05 Yes 40mg Take 40 mg by mouth at bedtime. [facility] CYCLOBENZAP RINE HYDROCHLORI DE 10 MG TABS 2021-10 00:00: 00 Yes Toney Renner HYDROCODONE BITARTRATE/ ACETAMINOPH E N 5-325 MG TABS 2021-10 00:00: 00 Yes Toney Renner cyclobenzap rine 10 mg tablet 2021-10 00:00: 00 06-01 00:00 :00 No [id number] 10mg Take 1 tablet by mouth 3 (three) times daily as needed for Muscle Spasms. [facility] HYDROcodone -acetaminop hen 5-325 mg tablet 2021-10 00:00: 00 08-10 04:59 :00 No [id number] 1{tbl} Take 1 tablet by mouth every 6 (six) hours as needed for Pain (scale 7-10) for up to 7 days. Indication s: acute pain [facility] hydralAZINE (APRESOLINE ) injection 10 mg 2021-10 22:14: 34 Yes 10mg 10 mg, Slow IV Push, Q6HPRN, Starting on Fri07/31/22 at 1714, Until Discontinu ed, Routine, DBP=>100; SBP=>180 [facility] SITagliptin (JANUVIA) tablet 25 mg 2021-10 14:00: 00 Yes 25mg 25 mg, Oral, DAILY, First dose on Fri07/31/22 at 0900, Until Discontinu ed, Routine [facility] omeprazole (PRILOSEC) capsule 40 mg 2021-10 14:00: 00 Yes 40mg 40 mg, Oral, DAILY, First dose on Fri07/31/22 at 0900, Until Discontinu ed [facility] amLODIPine (NORVASC) tablet 5 mg 2021-10 14:00: 00 Yes 5mg 5 mg, Oral, DAILY, First dose on Fri07/31/22 at 0900, Until Discontinu ed, Routine [facility] iopamidol (ISOVUE 370-500 mL) injection 75 mL 2021-10 005 13:00: 00 07-31 13:00 :00 No [id number] 75mL 75 mL, Intravenou s, ONCE, 1 dose, On Fri07/31/22 at 0800, Routine [facility] Sliding Scale Insulin-Reg ular + Fsbg Testing 2021-10 0 12:30: 00 Yes Subcutaneo us, AC, First dose on Fri07/31/22 at 0730, Until Discontinu ed, Routine [facility] maalox:diph enhydrAMINE :lidocaine 2 % viscous 1:1:1 (FIRST-MOUT HWASH BLM) oral suspension 15 mL 2021-10 0 08:00: 00 07-31 07:37 :00 No 15mL 15 mL, Oral, ONCE, 1 dose, On Fri07/31/22 at 0300, Routine [facility] diphenhydrA MINE (BENADRYL) tablet 25 mg 2021-10 005 07:00: 08 Yes 25mg 25 mg, Oral, Q6HPRN, Starting on Fri07/31/22 at 0200, Until Discontinu ed, Routine, Itching [facility] cyclobenzap rine (FLEXERIL) tablet 10 mg 2021-10 0 06:51: 33 Yes 10mg 10 mg, Oral, TIDPRN, Starting on Fri07/31/22 at 0151, Until Discontinu ed, Routine, Muscle Spasms [facility] glucagon (GLUCAGEN DIAGNOSTIC KIT) injection 1 mg 2021-10 005 02:13: 20 Yes 1mg 1 mg, Intramuscu lar, PRN, Starting on Fri07/30/22 at 2113, Until Discontinu ed, AUDRA, Blood Glucose < or = 70 mg/dL and patient is unable to swallow or has mental changes. [facility] dextrose 50 % in water (D50W) injection 25 mL 2021-10 0-05 02:13: 20 Yes 25mL 25 mL, Slow IV Push, PRN, Starting on Fri07/30/22 at 2113, Until Discontinu ed, AUDRA, Blood Glucose < or = 70 mg/dL and patient is unable to swallow or has mental status changes. [facility] atorvastati n (LIPITOR) tablet 40 mg 2021-10 0-05 02:00: 00 Yes 40mg 40 mg, Oral, QHS, First dose on Fri07/30/22 at 2100, Until Discontinu ed, Routine [facility] HYDROcodone -acetaminop hen (NORCO) 10-325 mg tablet 1 tablet 2021-10 0-05 01:01: 01 Yes 1{tbl} 1 tablet, Oral, Q6HPRN, Starting on Fri07/30/22 at 2000, Until Discontinu ed, Routine, Pain (scale 7-10) [facility] glipiZIDE (GLUCOTROL) tablet 10 mg 2021-10 0-05 01:00: 00 Yes 10mg 10 mg, Oral, BID, First dose on Fri07/30/22 at 1999, Until Discontinu ed, Routine [facility] apixaban (ELIQUIS) tablet 5 mg 2021-10 0-05 01:00: 00 Yes 5mg 5 mg, Oral, BID, First dose on Fri07/30/22 at 2000, Until Discontinu ed, Routine
Indicatio ns: DVT/PE [facility] traMADoL (ULTRAM) tablet 50 mg 2021-10 0-04 21:59: 23 08-01 21:58 :23 No 50mg 50 mg, Oral, Q8HPRN, Starting on Fri07/30/22 at 1659, Until Dianna 08/01/22 at 1658, Routine, Pain (scale 4-6) [facility] acetaminoph en (TYLENOL) tablet 650 mg 2021-10 0-04 21:59: 14 Yes 650mg 650 mg, Oral, Q6HPRN, Starting on Fri07/30/22 at 1659, Until Discontinu ed, Routine, Pain (scale 1-3) [facility] acetaminoph en (TYLENOL) tablet 1,000 mg 2021-10 18:00: 00 07-30 17:56 :00 No 1000mg 1,000 mg, Oral, ONCE, 1 dose, On Fri07/30/22 at 1300, AUDRA [facility] apixaban 5 mg tablet 2021-10 17:02: 03 Yes 5mg Take 5 mg by mouth 2 (two) times daily. [facility] naproxen 500 mg tablet 2021-10 17:02: 03 Yes 500mg Take 500 mg by mouth 2 (two) times daily with meals. [facility] atorvastati n 40 mg tablet 2021-10 17:02: 03 Yes 40mg Take 40 mg by mouth at bedtime. [facility] SITagliptin 25 mg tablet 2021-10 17:02: 03 Yes 25mg Take 25 mg by mouth daily. [facility] amLODIPine 5 mg tablet 2021-10 17:02: 03 Yes 5mg Take 5 mg by mouth daily. [facility] glipiZIDE 10 mg tablet 2021-10 17:02: 03 Yes 10mg Take 10 mg by mouth 2 (two) times daily. [facility] omeprazole 40 mg capsule 2021-10 17:02: 03 Yes 40mg Take 40 mg by mouth daily. [facility] metFORMIN 1,000 mg tablet 2021-10 17:02: 03 Yes 1000mg Take 1,000 mg by mouth 2 (two) times daily with meals. [facility] Dose Unknown 2021-10 00:00: 00 Yes Toney Renner Dose Unknown 2021-10 00:00: 00 No 300 TAKE 1 CAPSULE TWICE DAILY. 2021-10 00:00: 00 No Dose Unknown 2021-10 00:00: 00 No TAKE 1 CAPSULE TWICE DAILY. 2021-10 00:00: 00 No TAKE 1 CAPSULE TWICE DAILY. 2021-10 00:00: 00 No Dose Unknown 2021-10 00:00: 00 No TAKE 1 CAPSULE TWICE DAILY. 2021-10 0- 00:00: 00 No Dose Unknown 2021-10 0- 00:00: 00 No TAKE 1 CAPSULE TWICE DAILY. 2021-10 0- 00:00: 00 03-10 00:00 :00 No Toney Renner CETIRIZINE HYDROCHLORI DE 10 MG TABS 07-22 00:00: 00 Yes Toney Camryn Zurdo INSTILL 3 DROPS INTO AFFECTED EAR TWICE [...] TABLET BY MOUTH NIGHTLY 06-11 00:00: 00 Yes 40 Toney Renner TAKE 1 TABLET TWICE DAILY. - 00:00: 00 Yes 1000 Toney Renner TAKE 1 TABLET BY MOUTH NIGHTLY 8- 00:00: 00 No 40 TAKE 1 TABLET TWICE DAILY. - 00:00: 00 No 1000 TAKE 1 TABLET BY MOUTH NIGHTLY 2022-0 8-16 00:00: 00 No 40 TAKE 1 TABLET TWICE DAILY. 8 00:00: 00 No 1000 TAKE 1 TABLET BY MOUTH NIGHTLY 8 00:00: 00 No 40 TAKE 1 TABLET TWICE DAILY. 8- 00:00: 00 No 1000 TAKE 1 TABLET BY MOUTH NIGHTLY 0 8-16 00:00: 00 No 40 TAKE 1 TABLET TWICE DAILY. - 00:00: 00 No 1000 TAKE 1 TABLET BY MOUTH NIGHTLY 0 06-11 00:00: 00 No 40 TAKE 1 TABLET TWICE DAILY. 06-11 00:00: 00 No 1000 TAKE 1 TABLET BY MOUTH NIGHTLY 06-10 00:00: 00 Yes 40 Toney Renner TAKE 1 TABLET BY MOUTH NIGHTLY 8 00:00: 00 No 40 TAKE 1 TABLET BY MOUTH NIGHTLY 0 8- 00:00: 00 No 40 TAKE 1 TABLET BY MOUTH NIGHTLY 06-10 00:00: 00 No 40 TAKE 1 TABLET [...] Dose Unknown 06-06 00:00: 00 Yes 10 Toney Renner &lt 06-06 00:00: 00 Yes 100 Toney Renner Dose [...] Yes 300 Toney Renner Dose Unknown 2-0 8- 00:00: 00 Yes 4 Toney Renner TAKE [...] 2-4 2022-0 8- 00:00: 00 Yes 4 Toneyfranklin [...] 2022-0 8- 00:00: 00 Yes Toney Renner &lt 2022-0 8- 00:00: 00 Yes 500 [...] 2021-0 05-24 00:00: 00 Yes 5 Toney Cowan Zurdo Dose Unknown 2021-0 05-24 00:00: 00 No [...] 05-16 00:00: 00 No 25 Dose Unknown 2022-0 7-21 00:00: 00 No Dose Unknown 2022-0 7-21 00:00: 00 No 25 Dose Unknown 2-0 7 00:00: 00 No Dose Unknown 2-0 7 00:00: 00 No 25 Dose Unknown 2-0 7 00:00: 00 No Dose Unknown 2-0 7 00:00: 00 No 25 Dose Unknown 2022-0 7 00:00: 00 No Dose Unknown 2-0 7 00:00: 00 No 25 Dose Unknown 2-0 7 00:00: 00 No Dose Unknown 2-0 7 00:00: 00 No 25 Dose Unknown 2-0 7 00:00: 00 No &lt 2022-0 7 00:00: 00 Yes 4 Toney Renner Dose Unknown 2021-0 7 00:00: 00 Yes 25 Toneyfranklin Renner &lt 2022-0 7 00:00: 00 Yes 300 Toney Renner TAKE 1 TABLET BY MOUTH TWICE A DAY 2-0 7-19 00:00: 00 Yes 5 Toney Renner TAKE 1 TABLET BY MOUTH EVERY 12 HOURS FOR 7 DAYS 2022-0 719 00:00: 00 Yes Toney Renner TAKE 1 TABLET BY MOUTH TWICE A DAY 2-0 7-19 00:00: 00 Yes Toney Renner &lt 2022-0 719 00:00: 00 Yes 4 Toneyfranklin Renner Dose Unknown 2-0 7 00:00: 00 Yes Toney Renner &lt 2022-0 7 00:00: 00 No 4 Dose Unknown 2-0 719 00:00: 00 No 25 &lt 2022-0 7 00:00: 00 No 300 TAKE 1 TABLET BY MOUTH TWICE A DAY 2022-0 719 00:00: 00 No 5 TAKE 1 TABLET BY MOUTH EVERY 12 HOURS FOR 7 DAYS 2022-0 7-19 00:00: 00 No TAKE 1 TABLET BY MOUTH TWICE A DAY 2022-0 7-19 00:00: 00 No &lt 2022-0 7-19 00:00: 00 No 4 Dose Unknown 2022-0 7-19 00:00: 00 No &lt 2022-0 7- 00:00: 00 No 4 Dose Unknown 2022-0 [...] 00:00: 00 No 4 Dose Unknown 2022-0 7- 00:00: 00 No &lt 2022-0 7 00:00: 00 No 4 Dose Unknown 2022-0 7 00:00: 00 No 25 &lt 2022-0 [...] A DAY 2022-0 7 00:00: 00 No &lt 2022-0 7-19 00:00: 00 No 4 Dose Unknown 2022-0 19 00:00: 00 No &lt 2022-0 7 00:00: 00 No 4 Dose Unknown 2022-0 7 00:00: 00 No 25 &lt 2022-0 [...] 7-19 00:00: 00 No 4 Dose Unknown 2021-0 7-19 00:00: 00 No &lt 2-0 7-15 00:00: 00 Yes 5 Toney Renner &lt 2021-0 7-15 00:00: 00 No 5 &lt 2021-0 7-15 00:00: 00 No 5 &lt 2021-0 7-15 00:00: 00 No 5 &lt 2021-0 7-15 00:00: 00 No 5 &lt 2-0 7-15 00:00: 00 No 5 &lt 2021-0 7-15 00:00: 00 No 5 &lt 2021-0 7-15 00:00: 00 No 5 &lt 2021-0 7-15 00:00: 00 No 5 TAKE 1 TABLET BY MOUTH EVERY DAY 2021-0 14 00:00: 00 Yes 100 Toney Renner TAKE [...] 05-02 00:00: 00 No 4 Dose Unknown 05-02 00:00: 00 No 5 [...] 0 05-02 00:00: 00 No 300 &lt 2021-0 [...] 0 05-02 00:00: 00 No 300 &lt 2021-0 [...] PAIN SCALE 2-4 0 7- 00:00: 00 Yes Toney Camryn Zurdo &lt 2-0 7- 00:00: 00 Yes Toney Camryn Zurdo &lt 2-0 7- 00:00: 00 Yes Toney Camryn Zurdo &lt 2-0 7- 00:00: 00 Yes Toney Renner TAKE 1 TABLET BY MOUTH EVERY DAY 0 - 00:00: 00 No &lt 2-0 7- 00:00: 00 No TAKE 1 TABLET SUBLINGUALL Y DIRECTED NEEDED FOR PAIN SCALE 2-4 0 7- 00:00: 00 No &lt 2022-0 7- 00:00: 00 No &lt 2-0 7- 00:00: 00 No &lt 2022-0 [...] MINUTES BEFORE MEALS 2021-0 04-16 00:00: 00 Sharon Renner TAKE 2 TABLETS BY MOUTH EVERY [...] 1 TABLET DAILY. 2021-0 01-21 00:00: 00 Yes Toney Renner glipizide 10 mg tablet 0 01-21 00:00: 00 Yes 1mg Toney Renner metformin 1,000 mg tablet 0 01-21 00:00: 00 Yes 1mg Toney Renner Dose Unknown 01-21 00:00: 00 Yes Toney Renner Dose Unknown 01-21 00:00: 00 Yes Toney Renner Dose Unknown 01-21 00:00: 00 Yes Toney Cowan Zurdo Dose Unknown 01-21 00:00: 00 Yes Toney Cowan Zudro Dose Unknown 01-21 00:00: 00 Yes Toney [...] 00 No 1mg metformin 1,000 mg tablet 2021-0 01-21 00:00: 00 No 1mg Dose Unknown 0 01-21 00:00: 00 No Dose Unknown 2021-0 01-21 00:00: 00 No Dose Unknown 2021-0 01-21 00:00: 00 No Dose Unknown 2021-0 01-21 00:00: 00 No Dose Unknown 2021-0 01-21 00:00: 00 No Dose Unknown 0 01-21 00:00: 00 No Dose Unknown 0 01-21 00:00: 00 No Dose Unknown 2021-0 01-21 00:00: 00 No TAKE 1 TABLET [...] mg by mouth 2 (two) times daily. [facility] omeprazole 40 mg capsule 10-29 15:43: 53 Yes 40mg Take 40 mg by mouth daily. [facility] metFORMIN 1,000 mg tablet 10-29 15:43: 53 Yes 1000mg Take 1,000 mg by mouth 2 (two) times daily with meals. [facility] No known medications 10-29 15:43: 53 No [facility] atorvastati n 40 mg tablet 10-29 15:40: 58 Yes 40mg Take 40 mg by mouth at bedtime. [facility] SITagliptin 25 mg tablet 10-29 15:40: 58 Yes 25mg Take 25 mg by mouth daily. [facility] amLODIPine 5 mg tablet 10-29 15:40: 58 Yes 5mg Take 5 mg by mouth daily. [facility] apixaban 5 mg tablet 10-29 15:39: 13 Yes 5mg Take 5 mg by mouth 2 (two) times daily. [facility] naproxen 500 mg tablet 10-29 15:39: 13 Yes 500mg Take 500 mg by mouth 2 (two) times daily with meals. [facility] TAKE 1 TABLET DAILY. 2020-10 00:00: 00 Yes Toney Camryn Zurdo Dose Unknown 2020-10 00:00: 00 Yes Toney F Zurdo Dose Unknown 2020-10 00:00: 00 Yes Toney F Zurdo Dose Unknown 2020-10 00:00: 00 Yes Toney F Zurdo Dose Unknown 2020-10 00:00: 00 Yes Toney Renner naproxen 500 mg tablet 2020-10 00:00: 00 Yes 1mg Toney Camryn Renner Dose Unknown 2020-10 00:00: 00 Yes Toney F Zurdo Dose Unknown 2020-10 00:00: 00 Yes Toney Camryn Renner Januvia 25 mg tablet 2020-10 00:00: 00 No 1mg Dose Unknown 2020-10 00:00: 00 No Dose Unknown 2020-10 00:00: 00 No Dose Unknown 2020-10 00:00: 00 No Januvia 25 mg tablet 2020-10 00:00: 00 No 1mg Dose Unknown 2020-10 00:00: 00 No Dose Unknown 2020-10 00:00: 00 No Dose Unknown 2020-10 00:00: 00 No Dose Unknown 2020-10 2 [...] 2- 00:00: 00 No 1mg Dose Unknown 2020-1 2- 00:00: 00 No Dose Unknown 2020-1 2-13 00:00: 00 No Januvia 25 mg tablet 2020-1 2-13 00:00: 00 No 1mg Dose Unknown 2020-1 2-13 00:00: 00 No Dose Unknown 2020-1 2-13 00:00: 00 No Dose Unknown 1 2-13 00:00: 00 No Dose Unknown 1 2- 00:00: 00 No naproxen 500 mg tablet 2020-1 2- 00:00: 00 No 1mg Dose Unknown 1 2- 00:00: 00 No Dose Unknown 1 2- 00:00: 00 No Januvia 25 mg tablet 2020-1 2- 00:00: 00 No 1mg Dose Unknown 2020- 2- 00:00: 00 No Dose Unknown 2020-10 2- 00:00: 00 No Dose Unknown 1 2-13 00:00: 00 No Dose Unknown 2020-1 2-13 00:00: 00 No naproxen 500 mg tablet 2020-1 2- 00:00: 00 No 1mg Dose Unknown 1 2-13 00:00: 00 No Dose Unknown 1 2-13 00:00: 00 No Dose Unknown 0 9- 00:00: 00 Yes Toney Renner Dose Unknown 0 - 00:00: 00 Yes Toney Renner Dose Unknown 07-09 00:00: 00 Yes Toney Camryn Zurdo prednisone 20 mg tablet 0 07-09 00:00: 00 No 1mg benzonatate 200 mg capsule 2020-0 - 00:00: 00 No 1mg Bromfed DM 2 mg-30 mg-10 mg/5 mL oral syrup -13 00:00: 00 No 5mg/5 mL prednisone 20 mg tablet 2020-0 07-09 00:00: 00 No 1mg benzonatate 200 [...] 0 07-09 00:00: 00 No Dose Unknown 2020-0 07-09 00:00: 00 No Dose Unknown 0 07-09 00:00: 00 No Dose Unknown 0 07-09 00:00: 00 No Dose Unknown 0 07-09 00:00: 00 No prednisone 20 mg tablet 2020-0 07-09 00:00: 00 No 1mg benzonatate 200 mg capsule 2020-0 07-09 00:00: 00 No 1mg Bromfed DM 2 mg-30 mg-10 mg/5 mL oral syrup 0 07-09 00:00: 00 No 5mg/5 mL prednisone 20 mg tablet 2020-0 07-09 00:00: 00 No 1mg benzonatate 200 mg capsule 0 07-09 00:00: 00 No 1mg Bromfed DM 2 mg-30 mg-10 mg/5 mL oral syrup 2020-0 07-09 00:00: 00 No 5mg/5 mL Januvia 25 mg tablet 2020-0 -06 00:00: 00 Yes 1mg Toney F Zurdo Januvia 25 mg tablet 07-02 00:00: 00 [...] tablet 06-13 00:00: 00 Yes 1mg Toney Renner atorvastati [...] 00 No 1mg amlodipine 5 mg tablet 8- 00:00: 00 Yes 1mg Toney Renner metformin 1,000 mg tablet 8 00:00: 00 Yes 1mg Toney Renner glipizide 10 mg tablet 8- 00:00: 00 Yes 1mg Toney Renner [...] 00:00: 00 No amlodipine 5 mg tablet 8 00:00: 00 [...] - 00:00: 00 No 1mg Dose Unknown 11-03 [...] Toney Renner metformin 1,000 mg tablet 2019-10 0- 00:00: 00 Yes 1mg Toney Renner Eliquis 5 mg tablet 2020 00:00: 00 Yes 1mg Toney Renner atorvastati [...] No 1mg Eliquis 5 mg tablet 2019-10 0- 00:00: 00 No 1mg atorvastati n 40 mg tablet 2019-10 0 00:00: 00 No 1mg omeprazole 40 mg capsule,del ayed release 2019-10 0- 00:00: 00 No 1mg midodrine 5 mg tablet 2019-10 0- 00:00: 00 No 1mg glipizide ER 5 mg tablet, extended release 24 hr 2019-10 0- 00:00: 00 No 1mg metformin 1,000 mg tablet 2019-10 0- 00:00: 00 No 1mg Eliquis 5 mg [...] mg tablet 05-15 00:00: 00 No 1mg dicyclomine 20 [...] 05 00:00: 00 Yes 1mg Toney Renner citalopram [...] tablet 2017-10 00:00: 00 Yes 1mg Toney Rnener tizanidine 2 mg tablet 2017-10 00:00: 00 Yes 1mg Toney Renner gabapentin 100 mg capsule 2017-10 00:00: 00 Yes 1mg Toney Rennre polyethylen e glycol 3350 17 gram oral [...] tablet 01-16 00:00: 00 Yes 1mg Toney Lemosyl 500 mg tablet 01-16 00:00: 00 No [...] mg tablet 11-14 00:00: 00 No 1mg Myrbetriq 50 mg tablet,exte nded release TAKE ONE TABLET BY MOUTH DAILY Myrbetriq 50 mg tablet,exte nded release TAKE ONE TABLET BY MOUTH DAILY No 1 Q1D Myrbetriq 50 mg tablet,ext ended release TAKE ONE TABLET BY MOUTH DAILY [facility] amlodipine amlodipine No amlodipine [facility] atorvastati n atorvastati n No atorvastat in [facility] Eliquis Eliquis No Eliquis [facility] estradiol 0.01% (0.1 mg/gram) vaginal cream [...] vaginal route at bedtime for 30 days. [facility] glipizide glipizide No glipizide [facility] Januvia Januvia No Januvia [facility] metformin metformin No metformin [facility] pantoprazol e 40 mg tablet,merna yed release Take 1 tablet every day by oral route. pantoprazol e 40 mg tablet,merna yed release Take 1 tablet every day by oral route. No 1 Q1D pantoprazo le 40 mg tablet,del ayed release Take 1 tablet every day by oral route. [facility] Immunizations Ordered Immunization Name Filled Immunization Name Date Status Comments Source TDaP TDaP 2024-12-31 00:00:00 Completed [facility] TDAP 2022-01-21 00:00:00 Completed [facility] TDAP 2022-01-21 00:00:00 Completed [facility] TDAP 2022-01-21 00:00:00 Completed [facility] TDAP 2022-01-21 00:00:00 Completed [facility] TDAP 2022-01-21 00:00:00 Completed [facility] TDAP 2022-01-21 00:00:00 Completed [facility] TDAP 2022-01-21 00:00:00 Completed [facility] influenza, seasonal vaccine, quadrivalent, adjuvanted, .5mL dose, [...] COVID-19 VACCINE - (MODERNA) 2021-10-24 00:00:00 Completed SARS-COV-2 COVID-19 VACCINE - (MODERNA) 2021-10-24 00:00:00 Completed [facility] SARS-COV-2 COVID-19 VACCINE - (MODERNA) 2021-10-24 00:00:00 Completed [facility] SARS-COV-2 COVID-19 VACCINE - (MODERNA) 2021-10-24 00:00:00 Completed [facility] SARS-COV-2 COVID-19 VACCINE - (MODERNA) 2021-10-24 00:00:00 Completed [facility] SARS-COV-2 COVID-19 VACCINE - (MODERNA) 2021-10-24 00:00:00 Completed [facility] SARS-COV-2 COVID-19 VACCINE - (MODERNA) 2021-10-24 00:00:00 Completed [facility] Moderna COVID-19 Vaccine Moderna COVID-19 Vaccine 2021-10-24 [...] 00:00:00 Completed Hepa/Hepb Combo 2021-05-12 00:00:00 Completed Hepa/Hepb Combo 2021-05-12 00:00:00 Completed [facility] Hepa/Hepb Combo 2021-05-12 00:00:00 Completed [facility] Hepa/Hepb Combo 2021-05-12 00:00:00 Completed [facility] Hepa/Hepb Combo 2021-05-12 00:00:00 Completed [facility] Hepa/Hepb Combo 2021-05-12 00:00:00 Completed [facility] Hepa/Hepb Combo 2021-05-12 00:00:00 Completed [facility] Hep A-Hep B Hep A-Hep B 2021-05-12 00:00:00 Completed Toney Cowan Zurdo Hep A-Hep B Hep A-Hep B 2021-05-12 00:00:00 Completed Toney Renner SARS-COV-2 COVID-19 VACCINE - (MODERNA) 2021-02-06 00:00:00 Completed SARS-COV-2 COVID-19 VACCINE - (MODERNA) 2021-02-06 00:00:00 Completed [facility] SARS-COV-2 COVID-19 VACCINE - (MODERNA) 2021-02-06 00:00:00 Completed [facility] SARS-COV-2 COVID-19 VACCINE - (MODERNA) 2021-02-06 00:00:00 Completed [facility] SARS-COV-2 COVID-19 VACCINE - (MODERNA) 2021-02-06 00:00:00 Completed [facility] SARS-COV-2 COVID-19 VACCINE - (MODERNA) 2021-02-06 00:00:00 Completed [facility] SARS-COV-2 COVID-19 VACCINE - (MODERNA) 2021-02-06 00:00:00 Completed [facility] SARS-COV-2 COVID-19 VACCINE - (MODERNA) 2020-12-29 00:00:00 Completed SARS-COV-2 COVID-19 VACCINE - (MODERNA) 2020-12-29 00:00:00 Completed [facility] SARS-COV-2 COVID-19 VACCINE - (MODERNA) 2020-12-29 00:00:00 Completed [facility] SARS-COV-2 COVID-19 VACCINE - (MODERNA) 2020-12-29 00:00:00 Completed [facility] SARS-COV-2 COVID-19 VACCINE - (MODERNA) 2020-12-29 00:00:00 Completed [facility] SARS-COV-2 COVID-19 VACCINE - (MODERNA) 2020-12-29 00:00:00 Completed [facility] SARS-COV-2 COVID-19 VACCINE - (MODERNA) 2020-12-29 00:00:00 Completed [facility] Moderna COVID-19 Vaccine Moderna COVID-19 Vaccine 2020-12-29 [...] Vaccine 2020-12-29 00:00:00 Completed TDAP Unknown Completed [facility] Hepa/Hepb Combo Unknown Completed [facility] SARS-COV-2 COVID-19 VACCINE - (MODERNA) Unknown Completed [facility] TDAP Unknown Completed [facility] Hepa/Hepb Combo Unknown Completed [facility] SARS-COV-2 COVID-19 VACCINE - (MODERNA) Unknown Completed [facility] TDAP Unknown Completed [facility] Hepa/Hepb Combo Unknown Completed [facility] SARS-COV-2 COVID-19 VACCINE - (MODERNA) Unknown Completed [facility] TDAP Unknown Completed [facility] Hepa/Hepb Combo Unknown Completed [facility] SARS-COV-2 COVID-19 VACCINE - (MODERNA) Unknown Completed [facility] TDAP Unknown Completed [facility] Hepa/Hepb Combo Unknown Completed [facility] SARS-COV-2 COVID-19 VACCINE - (MODERNA) Unknown Completed [facility] Vital Signs Vital Name Observation Time Observation Value Comments S ource Systolic blood pressure 2025-01-19 16:06:00 130 mm[Hg] [facility] Diastolic blood pressure 2025-01-19 16:06:00 78 mm[Hg] [facility] Heart rate 2025-01-19 16:06:00 79 /min [facility] Respiratory rate 2025-01-19 16:06:00 24 /min [facility] Body height 2025-01-19 16:06:00 152.4 cm [facility] Body weight 2025-01-19 16:06:00 78.019 kg [facility] BMI 2025-01-19 16:06:00 33.59 kg/m2 [facility] Oxygen saturation in Arterial blood by Pulse oximetry 2025-01-19 16:06:00 96 /min [facility] Height 2024-12-31 19:56:00 152.382578 cm [facility] Weight 2024-12-31 19:56:00 76.196347 kg [facility] BMI (Body Mass Index) 2024-12-31 19:56:00 33.0 kg/m2 [facility] Body Weight 2024-12-29 00:00:00 168 [lb_av] [facility] Height 2024-12-29 00:00:00 60 [in_i] [facility] BP Systolic 2024-12-29 00:00:00 145 mm[Hg] [facility] BP Diastolic 2024-12-29 00:00:00 99 mm[Hg] [facility] BMI (Body Mass Index) 2024-12-29 00:00:00 32.8 kg/m2 [facility] BMI (Body Mass Index) 2024-12-21 00:00:00 33 kg/m2 [facility] Body Weight 2024-12-21 00:00:00 168.8 [lb_av] [facility] Height 2024-12-21 00:00:00 60 [in_i] [facility] BP Systolic 2024-12-21 00:00:00 153 mm[Hg] [facility] BP Diastolic 2024-12-21 00:00:00 87 mm[Hg] [facility] BMI (Body Mass Index) 2024-11-30 00:00:00 32.9 kg/m2 [facility] Height 2024-11-30 00:00:00 60 [in_i] [facility] Body Weight 2024-11-30 00:00:00 168.6 [lb_av] [facility] BP Systolic 2024-11-30 00:00:00 162 mm[Hg] [facility] BP Diastolic 2024-11-30 00:00:00 84 mm[Hg] [facility] Systolic blood pressure 2024-01-02 19:07:00 137 mm[Hg] [facility] Diastolic blood pressure 2024-01-02 19:07:00 84 mm[Hg] [facility] Heart rate 2024-01-02 19:07:00 73 /min [facility] Respiratory rate 2024-01-02 19:07:00 18 /min [facility] Body weight 2024-01-02 19:07:00 75.751 kg [facility] BMI 2024-01-02 19:07:00 32.61 kg/m2 [facility] Oxygen saturation in Arterial blood by Pulse oximetry 2024-01-02 19:07:00 96 /min [facility] Systolic blood pressure 2023-09-05 13:24:00 157 mm[Hg] [facility] Diastolic blood pressure 2023-09-05 13:24:00 78 mm[Hg] [facility] Heart rate 2023-09-05 13:24:00 49 /min [facility] Body temperature 2023-09-05 13:24:00 36.11 Zully [facility] Respiratory rate 2023-09-05 13:24:00 17 /min [facility] Oxygen saturation in Arterial blood by Pulse oximetry 2023-09-05 13:24:00 96 /min [facility] Body weight 2023-09-05 09:34:00 75.479 kg [facility] BMI 2023-09-05 09:34:00 32.50 kg/m2 [facility] Body height 2023-09-02 02:18:00 152.4 cm [facility] Systolic blood pressure 2023-06-22 06:30:00 104 mm[Hg] [facility] Diastolic blood pressure 2023-06-22 06:30:00 68 mm[Hg] [facility] Heart rate 2023-06-22 06:30:00 57 /min [facility] Oxygen saturation in Arterial blood by Pulse oximetry 2023-06-22 06:30:00 93 /min [facility] Body temperature 2023-06-22 03:05:00 37.22 Zully [facility] Respiratory rate 2023-06-22 03:05:00 14 /min [facility] Body weight 2023-06-22 03:05:00 78.926 kg [facility] BMI 2023-06-22 03:05:00 33.98 kg/m2 [facility] Systolic blood pressure 2023-06-16 18:30:00 140 mm[Hg] [facility] Diastolic blood pressure 2023-06-16 18:30:00 73 mm[Hg] [facility] Heart rate 2023-06-16 18:30:00 62 /min [facility] Body temperature 2023-06-16 18:30:00 36.61 Zully [facility] Respiratory rate 2023-06-16 18:30:00 16 /min [facility] Body height 2023-06-16 18:30:00 152.4 cm [facility] Body weight 2023-06-16 18:30:00 79.017 kg [facility] BMI 2023-06-16 18:30:00 34.02 kg/m2 [facility] Oxygen saturation in Arterial blood by Pulse oximetry 2023-06-16 18:30:00 96 /min [facility] Systolic blood pressure 2023-06-02 02:19:00 169 mm[Hg] [facility] Diastolic blood pressure 2023-06-02 02:19:00 89 mm[Hg] [facility] Heart rate 2023-06-02 02:19:00 68 /min [facility] Body temperature 2023-06-02 02:19:00 37.06 Zully [facility] Respiratory rate 2023-06-02 02:19:00 20 /min [facility] Oxygen saturation in Arterial blood by Pulse oximetry 2023-06-02 02:19:00 97 /min [facility] Body weight 2023-06-01 23:21:00 78.926 kg [facility] BMI 2023-06-01 23:21:00 33.98 kg/m2 [facility] Systolic blood pressure 2023-03-12 05:00:00 159 mm[Hg] [facility] Diastolic blood pressure 2023-03-12 05:00:00 81 mm[Hg] [facility] Heart rate 2023-03-12 05:00:00 56 /min [facility] Oxygen saturation in Arterial blood by Pulse oximetry 2023-03-12 05:00:00 94 /min [facility] Respiratory rate 2023-03-12 04:00:00 16 /min Simultaneous filing. User may not have seen previous data. [facility] Body temperature 2023-03-12 00:21:00 36.78 Zully [facility] Body height 2023-03-12 00:21:00 152.4 cm [facility] Body weight 2023-03-12 00:21:00 77.111 kg [facility] BMI 2023-03-12 00:21:00 33.20 kg/m2 [facility] Systolic blood pressure 2022-12-19 19:24:00 138 mm[Hg] [facility] Diastolic blood pressure 2022-12-19 19:24:00 74 mm[Hg] [facility] Heart rate 2022-12-19 19:24:00 63 /min [facility] Body temperature 2022-12-19 19:24:00 37 Zully [facility] Body height 2022-12-19 19:24:00 152.4 cm [facility] Body weight 2022-12-19 19:24:00 78.563 kg [facility] BMI 2022-12-19 19:24:00 33.83 kg/m2 [facility] Oxygen saturation in Arterial blood by Pulse oximetry 2022-12-19 19:24:00 95 /min [facility] Systolic blood pressure 2022-11-21 18:00:00 125 mm[Hg] [facility] Diastolic blood pressure 2022-11-21 18:00:00 69 mm[Hg] [facility] Respiratory rate 2022-11-21 18:00:00 18 /min [facility] Oxygen saturation in Arterial blood by Pulse oximetry 2022-11-21 18:00:00 94 /min [facility] Heart rate 2022-11-21 15:07:00 54 /min [facility] Body weight 2022-11-21 12:00:00 77.565 kg [facility] BMI 2022-11-21 12:00:00 32.31 kg/m2 [facility] Systolic blood pressure 2022-11-21 15:07:00 123 mm[Hg] [facility] Diastolic blood pressure 2022-11-21 15:07:00 67 mm[Hg] [facility] Heart rate 2022-11-21 15:07:00 54 /min [facility] Respiratory rate 2022-11-21 15:07:00 16 /min [facility] Oxygen saturation in Arterial blood by Pulse oximetry 2022-11-21 15:07:00 97 /min [facility] Body weight 2022-11-21 12:00:00 77.565 kg [facility] BMI 2022-11-21 12:00:00 32.31 kg/m2 [facility] Systolic blood pressure 2022-11-07 19:33:00 132 mm[Hg] [facility] Diastolic blood pressure 2022-11-07 19:33:00 78 mm[Hg] [facility] Heart rate 2022-11-07 19:33:00 73 /min [facility] Respiratory rate 2022-11-07 19:33:00 19 /min [facility] Body height 2022-11-07 19:33:00 154.9 cm [facility] Body weight 2022-11-07 19:33:00 77.928 kg [facility] BMI 2022-11-07 19:33:00 32.46 kg/m2 [facility] Oxygen saturation in Arterial blood by Pulse oximetry 2022-11-07 19:33:00 98 /min [facility] Systolic blood pressure 2022-10-27 17:59:00 177 mm[Hg] [facility] Diastolic blood pressure 2022-10-27 17:59:00 86 mm[Hg] [facility] Heart rate 2022-10-27 17:59:00 99 /min [facility] Body temperature 2022-10-27 17:59:00 38 Zully [facility] Respiratory rate 2022-10-27 17:59:00 20 /min [facility] Body weight 2022-10-27 17:59:00 76.658 kg [facility] BMI 2022-10-27 17:59:00 31.93 kg/m2 [facility] Oxygen saturation in Arterial blood by Pulse oximetry 2022-10-27 17:59:00 99 /min [facility] Systolic blood pressure 2022-09-03 16:57:00 136 mm[Hg] [facility] Diastolic blood pressure 2022-09-03 16:57:00 76 mm[Hg] [facility] Heart rate 2022-09-03 16:57:00 62 /min [facility] Body temperature 2022-09-03 16:57:00 36.72 Zully [facility] Respiratory rate 2022-09-03 16:57:00 17 /min [facility] Body weight 2022-09-03 16:57:00 77.066 kg [facility] BMI 2022-09-03 16:57:00 32.10 kg/m2 [facility] Oxygen saturation in Arterial blood by Pulse oximetry 2022-09-03 16:57:00 97 /min [facility] Systolic blood pressure 2022-08-06 16:32:00 137 mm[Hg] [facility] Diastolic blood pressure 2022-08-06 16:32:00 85 mm[Hg] [facility] Heart rate 2022-08-06 16:32:00 81 /min [facility] Body temperature 2022-08-06 16:32:00 37 Zully [facility] Body height 2022-08-06 16:32:00 154.9 cm [facility] Body weight 2022-08-06 16:32:00 77.111 kg [facility] BMI 2022-08-06 16:32:00 32.12 kg/m2 [facility] Oxygen saturation in Arterial blood by Pulse oximetry 2022-08-06 16:32:00 95 /min [facility] Systolic blood pressure 2022-08-02 16:25:00 120 mm[Hg] [facility] Diastolic blood pressure 2022-08-02 16:25:00 55 mm[Hg] [facility] Heart rate 2022-08-02 16:25:00 67 /min [facility] Body temperature 2022-08-02 16:25:00 36 Zully [facility] Respiratory rate 2022-08-02 16:25:00 18 /min [facility] Oxygen saturation in Arterial blood by Pulse oximetry 2022-08-02 16:25:00 96 /min [facility] Body weight 2022-08-02 08:16:00 75.978 kg [facility] BMI 2022-08-02 08:16:00 31.65 kg/m2 [facility] Body height 2022-07-30 21:03:00 154.9 cm [facility] Systolic blood pressure 2021-11-05 21:52:00 136 mm[Hg] [facility] Diastolic blood pressure 2021-11-05 21:52:00 69 mm[Hg] [facility] Heart rate 2021-11-05 21:52:00 65 /min [facility] Body height 2021-11-05 21:52:00 152.4 cm [facility] Body weight 2021-11-05 21:52:00 81.647 kg [facility] BMI 2021-11-05 21:52:00 35.15 kg/m2 [facility] BP Systolic 2024-12-06 11:30:00 160 mm[Hg] Toney Renner BP Diastolic 2024-12-06 11:30:00 74 mm[Hg] Toney F Zurdo Weight Measured 2024-12-06 11:30:00 171.60 pounds Toney F Zurdo Height Measured 2024-12-06 11:30:00 60.00 inches Toney F Zurdo Body Temperature 2024-12-06 11:30:00 97.40 degrees Toney F Zurdo Heart Rate 2024-12-06 11:30:00 73.00 /min Toney F Zurdo Respiratory Rate 2024-12-06 11:30:00 18.00 /min Toney F Zurdo BP Systolic 2024-11-02 16:39:00 154 mm[Hg] Toney F Zurdo BP Diastolic 2024-11-02 16:39:00 82 mm[Hg] Toney F Zurdo Weight Measured 2024-11-02 16:39:00 169.80 pounds Toney F Zurdo Height Measured 2024-11-02 16:39:00 60.00 inches Toney F Zurdo Body Temperature 2024-11-02 16:39:00 98.10 degrees Toney F Zurdo Heart Rate 2024-11-02 16:39:00 Toney F Zurdo Respiratory Rate 2024-11-02 16:39:00 18.00 /min Toney F Zurdo BP Systolic 2024-10-29 16:54:00 164 mm[Hg] Toney [...] Weight Measured 2024-10-29 16:10:00 166.40 pounds Toney Renner Height Measured 2024-10-29 16:10:00 60.00 inches Toney Renner BP Systolic 2024-09-14 10:33:00 124 mm[Hg] Toney F Zurdo BP Diastolic 2024-09-14 10:33:00 75 mm[Hg] Toney Renner Weight Measured 2024-09-14 10:33:00 165.20 pounds Toney Renner Height Measured 2024-09-14 10:33:00 60.00 inches Toney Renner Body Temperature 2024-09-14 10:33:00 97.60 degrees Toney Renner Heart Rate 2024-09-14 10:33:00 82.00 /min Toney F Zurdo Respiratory Rate 2024-09-14 10:33:00 18.00 /min Toney Renner BP Systolic 2024-09-02 11:15:00 124 mm[Hg] Toney Renner BP Diastolic 2024-09-02 11:15:00 76 mm[Hg] Toney Renner Weight Measured 2024-09-02 11:15:00 165.80 pounds Toney Renner Height Measured 2024-09-02 11:15:00 60.00 inches Toney Renner Body Temperature 2024-09-02 11:15:00 98.30 degrees Toney Renner Heart Rate 2024-09-02 11:15:00 64.00 /min Toney Renner Respiratory Rate 2024-09-02 11:15:00 18.00 /min Toney Renner BP Systolic 2024-07-02 11:14:00 134 mm[Hg] Toney F Zurdo BP Diastolic 2024-07-02 11:14:00 76 mm[Hg] Toney Renner Weight Measured 2024-07-02 11:14:00 168.40 pounds Toney Renner Height Measured 2024-07-02 11:14:00 60.00 inches Toney Renner Body Temperature 2024-07-02 11:14:00 97.40 degrees Toney [...] BP Systolic 2023-07-16 10:52:00 147 mm[Hg] Toney Renenr BP Diastolic 2023-07-16 10:52:00 76 mm[Hg] Toney Renner Weight Measured 2023-07-16 10:52:00 171.80 pounds Toney Renner Height Measured 2023-07-16 10:52:00 60.00 inches Toney Renner Body Temperature 2023-07-16 10:52:00 98.30 degrees Toney Renner Heart Rate 2023-07-16 10:52:00 59.00 /min Toney Renner Respiratory Rate 2023-07-16 10:52:00 16.00 /min Toney [...] Date / Time Performed Performing Clinician Source Transurethral Cystoscopy 2024-12-21 00:00:00 [facility] POCT GLUCOSE (AUTOMATED) 2023-09-05 13:49[facility] 10:23:00 Kathi Harrell [facility] BASIC METABOLIC PANEL (NA, K, CL, CO2, GLUCOSE, BUN, CREATININE, CA) 2023-09-05 [facility]:23[facility] 2023-09-05 10:23:00 Kathi Harrell [facility] POCT GLUCOSE (AUTOMATED) 2023-09-05 03:10:00 Britney [facility] POCT GLUCOSE (AUTOMATED) 2023-09-04 22:34:00 Britney [facility] POCT GLUCOSE (AUTOMATED) 2023-09-04 18:35:00 Britney [facility] POCT GLUCOSE (AUTOMATED) 2023-09-04 13:36:00 Britney [facility] MAGNESIUM 2023-09-04 09:05:00 Kathi Harrell [facility] BASIC METABOLIC PANEL (NA, K, CL, CO2, GLUCOSE, BUN, CREATININE, CA) 2023-09-04 09:05[facility] 2023-09-04 09:05:00 Kathi Harrell [facility] POCT GLUCOSE (AUTOMATED) 2023-09-04 02:31:00 Britney [facility] POCT GLUCOSE (AUTOMATED) 2023-09-03 22:48:00 Britney [facility] POCT GLUCOSE (AUTOMATED) 2023-09-03 17:49:00 Britney [facility] POCT GLUCOSE (AUTOMATED) 2023-09-03 13:54:00 Britney [facility] MAGNESIUM 2023-09-03 09:06:00 Myrtle Levy [facility] COMP. METABOLIC PANEL ([id number]) 2023-09-03 09:06:00 Myrtle Levy [facility] CBC WITH DIFF 2023-09-03 09:06:00 Myrtle Levy [facility] GLYCOSYLATED HEMOGLOBIN (A1C) 2023-09-03 09:06:00 Gareth Rowan [facility] POCT GLUCOSE (AUTOMATED) 2023-09-03 02:53:00 [facility] POCT GLUCOSE (AUTOMATED) 2023-09-02 22:06:00 [facility] POCT GLUCOSE (AUTOMATED) 2023-09-02 17:45:00 [facility] POCT GLUCOSE (AUTOMATED) 2023-09-02 15:00:00 [facility] [facility] LACTIC ACID WHOLE BLOOD 2023-09-02 01:30:00 Richard East [facility] CT ABDOMEN PELVIS W CONTRAST 2023-09-01 23:55:45 Maxi Goldberg [facility] HB ECG ROUTINE & RHYTHM STRIP 2023-09-01 22:38:41 Maxi Goldberg [facility] XR CHEST 1 VW 2023-09-01 22:38:00 Maxi Goldberg [facility] LACTIC ACID WHOLE BLOOD 2023-09-01 22:30:00 Raymond Goldberg [facility] BLOOD CULTURE SCREEN 2023-09-01 22:29:00 Makeda Goldberg [facility] TROPONIN I 2023-09-01 22:29:00 [facility]ABOLIC PANEL ([id number]) 2023-09-01 22:29:00 Maxi Goldberg [facility] CBC WITH DIFF 2023-09-01 22:29:00 Maxi Goldberg [facility] URINALYSIS 2023-09-01 22:29:00 [facility] COVID-19 (ID NOW RAPID TESTING) 2023-09-01 22:29:00 Ashlyn Maxi [facility] LAB ONLY COVID INTERPRETATION 2023-09-01 22:29:00 Maxi Goldberg [facility] ASSIGNMENT OF BENEFITS 2023-09-01 22:11:31 Docto r Unassigned, Chambers [facility] CONSENT/REFUSAL FOR DIAGNOSIS AND TREATMENT 2023-09-01 21:07:42 Doctor Unassigned, Chambers [facility] CT ABDOMEN PELVIS W CONTRAST 2023-06-22 05:05:28 Christina Lou [facility] LIPASE 2023-06-22 03:45:00 [facility] 2023-06-22 03:45:00 [facility] COMP. METABOLIC PANEL ([id number]) 2023-06-22 03:45:00 Christina Lou [facility] CBC WITH DIFF 2023-06-22 03:45:00 Neha Louherine [facility] URINALYSIS 2023-06-22 03:45:00 [facility] CONSENT/REFUSAL FOR DIAGNOSIS AND TREATMENT 2023-06-22 02:54:50 Doctor Unassigned, Chambers [facility] EKG-12 LEAD 2023-06-02 03:24:46 Betsey Boss [facility] TROPONIN I 2023-06-02 02:08:00 Betsey Boss [facility] LIPASE 2023-06-02 00:25:00 Betsey Boss [facility] MAGNESIUM 2023-06-02 00:25:00 Betsey Boss [facility] TROPONIN I 2023-06-02 00:25:00 Betsey Boss [facility] COMP. METABOLIC PANEL ([id number]) 2023-06-02 00:25:00 Betsey Boss [facility] CBC WITH DIFF 2023-06-02 00:25:00 Betsey Boss [facility] N-TERMINAL PRO-BNP 2023-06-02 00:25:00 Betsey Boss [facility] CONSENT/REFUSAL FOR DIAGNOSIS AND TREATMENT 2023-06-02 00:05:52 Doctor Unassigned, Chambers [facility] XR CHEST 1 VW 2023-06-01 23:47:16 Betsey Boss [facility] CONSENT/REFUSAL FOR DIAGNOSIS AND TREATMENT 2023-06-01 23:14:22 Doctor Unassigned, Chambers [facility] AUTHORIZATION FOR RELEASE OF PHI 2023-05-11 05:01:00 Doctor Unassigned, Chambers [facility] EKG-12 LEAD 2023-03-12 04:25:00 Solomon Millan [facility] TROPONIN I 2023-03-12 03:28:00 Solomon Millan [facility] CT ABDOMEN PELVIS W CONTRAST 2023-03-12 02:33:00 Solomon Millan [facility] XR CHEST 1 VW 2023-03-12 01:12:24 Solomon Millan [facility] CK (CREATINE KINASE) + MB 2023-03-12 00:34:00 Eern Millan [facility] LIPASE 2023-03-12 00:34:00 Solomon Millan [facility] TROPONIN I 2023-03-12 00:34:00 Solomon Millan [facility] COMP. METABOLIC PANEL ([id number]) 2023-03-12 00:34:00 Solomon Millan [facility] CBC WITH DIFF 2023-03-12 00:34:00 Solomon Millan [facility] URINALYSIS 2023-03-12 00:34:00 Solomon Millan [facility] N-TERMINAL PRO-BNP 2023-03-12 00:34:00 Solomon Millan [facility] NOTICE OF PRIVACY PRACTICES 2023-03-12 00:16:34 Doctor Unassigned, Chambers [facility] CONSENT/REFUSAL FOR DIAGNOSIS AND TREATMENT 2023-03-12 00:16:08 Doctor Unassigned, Chambers [facility] PATIENT FINANCIAL POLICY 2022-12-19 19:07:24 Doctor Unassigned, Chambers [facility] CARDIAC CATHETERIZATION 2022-11-21 14:44:17 George Burnette [facility] CARDIAC CATHETERIZATION 2022-11-21 14:44:17 George Burnette [facility] CARDIAC CATHETERIZATION 2022-11-21 14:44:17 George Burnette [facility] CARDIAC CATHETERIZATION 2022-11-21 14:44:17 George Burnette [facility] BASIC METABOLIC PANEL (NA, K, CL, CO2, GLUCOSE, BUN, CREATININE, CA) 2022-11-21 12:30:00 Moira [facility] CBC WITH DIFF 2022-11-21 12:30:00 Moira [facility] PROTHROMBIN TIME / INR 2022-11-21 12:30:[address] [facility] BASIC METABOLIC PANEL (NA, K, CL, CO2, GLUCOSE, BUN, CREATININE, CA) 2022-11-21 12:30:00 Moira [facility] CBC WITH DIFF 2022-11-21 12:30:00 Moira [facility] PROTHROMBIN TIME / INR 2022-11-21 12:30:[address] [facility] OUTPATIENT CARDIAC CATHETERIZATION DOCUMENTS 2022-11-21 06:01:00 Doctor Unassigned, Chambers [facility] CONSENT/REFUSAL FOR DIAGNOSIS AND TREATMENT 2022-11-07 18:46:45 Doctor Unassigned, Chambers [facility] RAPID STREP SCREEN FOR GROUP A 2022-10-27 19:17:00 Maggi Calloway [facility] RAPID INFLUENZA A/B 2022-10-27 19:17:00 Maggi Calloway [facility] COVID-19 (ID NOW RAPID TESTING) 2022-10-27 19:17:00 Maggi Calloway [facility] CONSENT/REFUSAL FOR DIAGNOSIS AND TREATMENT 2022-10-27 17:51:23 Doctor Unassigned, Chambers [facility] MYOCARDIUM PERFUSION STRESS AND REST 2022-08-08 18:09:00 Vasile [facility] MYOCARDIUM PERFUSION STRESS AND REST 2022-08-08 18:09:00 Vasile [facility] MYOCARDIUM PERFUSION STRESS AND REST 2022-08-08 18:09:00 Vasile [facility] MYOCARDIUM PERFUSION STRESS AND REST 2022-08-08 18:09:00 Petrona Burnette [facility] POCT GLUCOSE (AUTOMATED) 2022-08-02 16:29:00 Britney [facility] POCT GLUCOSE (AUTOMATED) 2022-08-02 12:37:00 Britney [facility] BASIC METABOLIC PANEL (NA, K, CL, CO2, GLUCOSE, BUN, CREATININE, CA) 2022-08-02 09:16:00 Kyle Barkley [facility] CBC WITH DIFF 2022-08-02 09:16:00 Kyle Barkley [facility] POCT GLUCOSE (AUTOMATED) 2022-08-01 21:34:00 Britney [facility] POCT GLUCOSE (AUTOMATED) 2022-08-01 16:27:00 Britney [facility] POCT GLUCOSE (AUTOMATED) 2022-08-01 12:37:00 Britney [facility] POCT GLUCOSE (AUTOMATED) 2022-08-01 01:03:00 Britney [facility] POCT GLUCOSE (AUTOMATED) 2022-07-31 21:37:00 Britney [facility] TROPONIN I 2022-07-31 21:10:00 Destiney Avila [facility] POCT GLUCOSE (AUTOMATED) 2022-07-31 16:36:00 Britney [facility] TRANSTHORACIC ECHO (TTE) COMPLETE 2022-07-31 13:31:00 Arun [facility] POCT GLUCOSE (AUTOMATED) 2022-07-31 12:44:00 Britney East [facility] CT CHEST PULMONARY ANGIOGRAM 2022-07-31 12:09:33 Arun [facility] TROPONIN I 2022-07-31 08:53:00 Destiney Avila [facility] BASIC METABOLIC PANEL (NA, K, CL, CO2, GLUCOSE, BUN, CREATININE, CA) 2022-07-31 08:53:00 Destiney Avila [facility] CBC WITH DIFF 2022-07-31 08:53:00 Destiney Avila [facility] GLYCOSYLATED HEMOGLOBIN (A1C) 2022-07-31 05:25:00 Arun [facility] COVID-19 (ID NOW RAPID TESTING) 2022-07-31 05:22:00 Arun [facility] LAB ONLY COVID INTERPRETATION 2022-07-31 05:22:00 Arun [facility] TROPONIN I 2022-07-31 01:25:00 [facility] 2022-07-31 01:25:00 Arun [facility] XR CHEST 1 VW 2022-07-30 16:07:44 Destiney [facility] MAGNESIUM 2022-07-30 15:53:00 Destiney Blair [facility] TROPONIN I 2022-07-30 15:53:00 Destiney Blair [facility] THYROID STIMULATING HORMONE 2022-07-30 15:53:00 Destiney Avila [facility] COMP. METABOLIC PANEL (46069) 2022-07-30 15:53:00 Destiney Blair [facility] LIPID PANEL (39398)(TOTAL CHOLESTEROL, TRIGLYCERIDES, HDL) 2022-07-30 15:53:00 Destiney Avila [facility] CBC WITH DIFF 2022-07-30 15:53:00 [facility] PROTHROMBIN TIME / INR 2022-07-30 15:53:00 Pastora Blair [facility] ACTIVATED PARTIAL THRMPLAS RAYMOND 2022-07-30 15:53:00 Destiney Blair [facility] HB ECG ROUTINE & RHYTHM STRIP 2022-07-30 15:06:24 Destiney Blair [facility] CONSENT/REFUSAL FOR DIAGNOSIS AND TREATMENT 2022-07-30 14:45:47 Doctor Unassigned, Chambers [facility] TRANSTHORACIC ECHO (TTE) COMPLETE 2021-11-05 21:52:10 Petrona Burnette [facility] EXTERNAL PROVIDER - ADC REFERRAL 2021-10-09 06:01:00 Doctor Unassigned, Chambers [facility] [address] Ecg Routine Ecg W/least 12 Lds W/i r 2018-04-27 00:00:00 Toney Renner Bladder Surgery 2008-05-27 00:00:00 [facility] K[facility] Plan of Care Planned Activity Planned Date Details Comments Source Goal Plan of Care Note [code = 47081-4] Goal Plan of Care Note [code = 92229-4] Goal Plan of Care Note [code = 13563-0] Goal Plan of Care Note [code = 63139-5] Goal Plan of Care Note [code = 91117-1] Goal Plan of Care Note [code = 49105-8] Goal Plan of Care Note [code = 98078-4] Goal Plan of Care Note [code = 64081-5] Goal Plan of Care Note [code = 57712-7] Goal Plan of Care Note [code = 69111-5] Goal Plan of Care Note [code = 71764-1] Goal Plan of Care Note [code = 15352-8] Goal Plan of Care Note [code = 25091-5] Goal Plan of Care Note [code = 23936-0] Goal Plan of Care Note [code = 79112-5] Goal Plan of Care Note [code = 27015-8] Goal Plan of Care Note [code = 69474-9] Goal Plan of Care Note [code = 11054-9] Goal Plan of Care Note [code = 41112-5] Goal Plan of Care Note [code = 71534-2] Goal Plan of Care Note [code = 76073-3] Goal Plan of Care Note [code = 05225-1] Goal Plan of Care Note [code = 32728-6] Goal Plan of Care Note [code = 38323-1] Goal Plan of Care Note [code = 55480-5] Goal Plan of Care Note [code = 68521-1] Goal Plan of Care Note [code = 11058-2] Goal Plan of Care Note [code = 44892-0] Goal Plan of Care Note [code = 98308-0] Goal Plan of Care Note [code = 86530-7] Goal Plan of Care Note [code = 94604-9] Goal Plan of Care Note [code = 76474-6] Goal Plan of Care Note [code = 41903-9] Goal Plan of Care Note [code = 47764-0] Goal Plan of Care Note [code = 47222-5] Goal Plan of Care Note [code = 31669-6] Goal Plan of Care Note [code = 16084-0] Goal Plan of Care Note [code = 54311-0] Goal Plan of Care Note [code = 47526-3] Goal Plan of Care Note [code = 35304-9] Goal Plan of Care Note [code = 40110-8] Goal Plan of Care Note [code = 55769-1] Goal Plan of Care Note [code = 64901-0] Goal Plan of Care Note [code = 34679-5] Goal Plan of Care Note [code = 95199-3] Goal Plan of Care Note [code = 69780-1] Goal Plan of Care Note [code = 90680-3] Goal Plan of Care Note [code = 17328-9] Goal Plan of Care Note [code = 92336-1] Goal Plan of Care Note [code = 57179-8] Goal Plan of Care Note [code = 65389-2] Goal Plan of Care Note [code = 87698-1] Goal Plan of Care Note [code = 60273-9] Goal Plan of Care Note [code = 69890-1] Goal Plan of Care Note [code = 41095-9] Goal Plan of Care Note [code = 42649-7] Goal Plan of Care Note [code = 74108-6] Goal Plan of Care Note [code = 41632-5] Goal Plan of Care Note [code = 49262-0] Goal Plan of Care Note [code = 69576-6] Goal Plan of Care Note [code = 94892-7] Goal Plan of Care Note [code = 84805-4] Goal Plan of Care Note [code = 19356-6] Goal Plan of Care Note [code = 78188-6] Goal Plan of Care Note [code = 16141-0] Goal Plan of Care Note [code = 00348-3] Goal Plan of Care Note [code = 60956-3] Goal Plan of Care Note [code = 14813-8] Goal Plan of Care Note [code = 72601-6] Goal Plan of Care Note [code = 38594-1] Goal Plan of Care Note [code = 17351-1] Goal Plan of Care Note [code = 08018-4] Goal Plan of Care Note [code = 57119-5] Goal Plan of Care Note [code = 67246-6] Goal Plan of Care Note [code = 61117-3] Goal Plan of Care Note [code = 10948-4] Goal Plan of Care Note [code = 47470-8] Goal Plan of Care Note [code = 25005-2] Goal Plan of Care Note [code = 59532-9] Goal Plan of Care Note [code = 22678-1] Goal Plan of Care Note [code = 22682-9] Goal Plan of Care Note [code = 60959-4] Goal Plan of Care Note [code = 08037-8] Goal Plan of Care Note [code = 60718-2] Goal Plan of Care Note [code = 98878-9] Goal Plan of Care Note [code = 42740-6] Goal Plan of Care Note [code = 85228-6] Goal Plan of Care Note [code = 14653-3] Goal Plan of Care Note [code = 14976-4] Goal Plan of Care Note [code = 51318-1] Goal Plan of Care Note [code = 46702-9] Goal Plan of Care Note [code = 98522-8] Goal Plan of Care Note [code = 91239-6] Goal Plan of Care Note [code = 97431-3] Goal Plan of Care Note [code = 68843-5] Goal Plan of Care Note [code = 52287-1] Goal Plan of Care Note [code = 48645-3] Goal Plan of Care Note [code = 11050-3] Goal Plan of Care Note [code = 60595-5] Goal Plan of Care Note [code = 70528-2] Goal Plan of Care Note [code = 60683-2] Goal Plan of Care Note [code = 74832-7] Goal Plan of Care Note [code = 81552-1] Goal Plan of Care Note [code = 90295-8] Goal Plan of Care Note [code = 94918-0] Goal Plan of Care Note [code = 20806-6] Goal Plan of Care Note [code = 03346-6] Goal Plan of Care Note [code = 55225-9] Goal Plan of Care Note [code = 65179-1] Goal Plan of Care Note [code = 58613-8] Goal Plan of Care Note [code = 44069-8] Goal Plan of Care Note [code = 68212-8] Goal Plan of Care Note [code = 91289-4] Goal Plan of Care Note [code = 77915-4] Goal Plan of Care Note [code = 84208-0] Goal Plan of Care Note [code = 25852-6] Goal Plan of Care Note [code = 33927-6] Goal Plan of Care Note [code = 21022-8] Goal Plan of Care Note [code = 33186-7] Goal Plan of Care Note [code = 35229-0] Goal Plan of Care Note [code = 96932-7] Goal Plan of Care Note [code = 95948-0] Goal Plan of Care Note [code = 78029-6] Goal Plan of Care Note [code = 58974-2] Goal Plan of Care Note [code = 23339-3] Goal Plan of Care Note [code = 10447-2] Goal Plan of Care Note [code = 25157-7] Goal Plan of Care Note [code = 51657-5] Goal Plan of Care Note [code = 71115-5] Goal Plan of Care Note [code = 00527-0] Goal Plan of Care Note [code = 26757-4] Goal Plan of Care Note [code = 18652-8] Goal Plan of Care Note [code = 29278-3] Goal Plan of Care Note [code = 45389-1] Goal Plan of Care Note [code = 02027-8] Goal Plan of Care Note [code = 46839-3] Goal Plan of Care Note [code = 37515-3] Goal Plan of Care Note [code = 68944-9] Goal Plan of Care Note [code = 67490-4] Goal Plan of Care Note [code = 59679-1] Goal Plan of Care Note [code = 90103-4] Goal Plan of Care Note [code = 68570-0] Goal Plan of Care Note [code = 04874-9] Goal Plan of Care Note [code = 74110-1] Goal Plan of Care Note [code = 19517-1] Goal Plan of Care Note [code = 80228-5] Goal Plan of Care Note [code = 92217-2] Goal Plan of Care Note [code = 29661-6] Goal Plan of Care Note [code = 40521-7] Goal Plan of Care Note [code = 80998-6] Goal Plan of Care Note [code = 07730-9] Goal Plan of Care Note [code = 22423-4] Goal Plan of Care Note [code = 48086-0] Goal Plan of Care Note [code = 84554-3] Goal Plan of Care Note [code = 03811-6] Goal Plan of Care Note [code = 47175-1] Goal Plan of Care Note [code = 54439-6] Goal Plan of Care Note [code = 58696-8] Goal Plan of Care Note [code = 98888-4] Goal Plan of Care Note [code = 08183-6] Goal Plan of Care Note [code = 15830-4] Goal Plan of Care Note [code = 19009-6] Goal Plan of Care Note [code = 86655-6] Goal Plan of Care Note [code = 41265-5] Goal Plan of Care Note [code = 36237-8] Goal Plan of Care Note [code = 10343-7] Goal Plan of Care Note [code = 84859-7] Goal Plan of Care Note [code = 73882-8] Goal Plan of Care Note [code = 58879-4] Goal Plan of Care Note [code = 54460-7] Goal Plan of Care Note [code = 85261-1] Goal Plan of Care Note [code = 08005-5] Goal Plan of Care Note [code = 25160-0] Goal Plan of Care Note [code = 85947-8] Goal Plan of Care Note [code = 78908-2] Goal Plan of Care Note [code = 88118-9] Goal Plan of Care Note [code = 78811-0] Goal Plan of Care Note [code = 53458-5] Goal Plan of Care Note [code = 81102-7] Goal Plan of Care Note [code = 95780-4] Goal Plan of Care Note [code = 75122-6] Goal Plan of Care Note [code = 36707-2] Goal Plan of Care Note [code = 08290-7] Goal Plan of Care Note [code = 94735-8] Goal Plan of Care Note [code = 27957-6] Goal Plan of Care Note [code = 33017-0] Goal Plan of Care Note [code = 97481-5] Goal Plan of Care Note [code = 33685-2] Goal Plan of Care Note [code = 33684-0] Goal Plan of Care Note [code = 89582-4] Goal Plan of Care Note [code = 34949-1] Goal Plan of Care Note [code = 24515-5] Goal Plan of Care Note [code = 31295-3] Goal Plan of Care Note [code = 52781-7] Goal Plan of Care Note [code = 71343-1] Goal Plan of Care Note [code = 73712-4] Goal Plan of Care Note [code = 51199-5] Goal Plan of Care Note [code = 60333-3] Goal Plan of Care Note [code = 72522-5] Goal Plan of Care Note [code = 43561-8] Goal Plan of Care Note [code = 28158-3] Goal Plan of Care Note [code = 86201-8] Goal Plan of Care Note [code = 32537-1] Goal Plan of Care Note [code = 29420-5] Goal Plan of Care Note [code = 68975-6] Goal Plan of Care Note [code = 66347-0] Goal Plan of Care Note [code = 16047-3] Goal Plan of Care Note [code = 36273-0] Goal Plan of Care Note [code = 61233-5] Goal Plan of Care Note [code = 30172-6] Goal Plan of Care Note [code = 46040-6] Goal Plan of Care Note [code = 13208-1] Goal Plan of Care Note [code = 14953-2] Goal Plan of Care Note [code = 41968-4] Goal Plan of Care Note [code = 73847-8] Goal Plan of Care Note [code = 60099-3] Goal Plan of Care Note [code = 00088-0] Goal Plan of Care Note [code = 94707-2] Goal Plan of Care Note [code = 60818-2] Goal Plan of Care Note [code = 48158-9] Goal Plan of Care Note [code = 27469-3] Goal Plan of Care Note [code = 88180-9] Goal Plan of Care Note [code = 81138-1] Goal Plan of Care Note [code = 35702-1] Goal Plan of Care Note [code = 17389-1] Goal Plan of Care Note [code = 22707-3] Goal Plan of Care Note [code = 72008-8] Goal Plan of Care Note [code = 45351-0] Goal Plan of Care Note [code = 12065-3] Goal Plan of Care Note [code = 90619-6] Goal Plan of Care Note [code = 61450-8] Goal Plan of Care Note [code = 05943-4] Goal Plan of Care Note [code = 60790-9] Goal Plan of Care Note [code = 88980-1] Goal Plan of Care Note [code = 16010-5] Goal Plan of Care Note [code = 79128-4] Goal Plan of Care Note [code = 68775-8] Goal Plan of Care Note [code = 09189-1] Goal Plan of Care Note [code = 86572-3] Goal Plan of Care Note [code = 93151-8] Goal Plan of Care Note [code = 96800-5] Goal Plan of Care Note [code = 94795-3] Goal Plan of Care Note [code = 58243-6] Goal Plan of Care Note [code = 65245-2] Goal Plan of Care Note [code = 10093-9] Goal Plan of Care Note [code = 90061-8] Goal Plan of Care Note [code = 24679-9] Goal Plan of Care Note [code = 34211-5] Goal Plan of Care Note [code = 42925-4] Goal Plan of Care Note [code = 60388-3] Goal Plan of Care Note [code = 15877-1] Goal Plan of Care Note [code = 11178-8] Goal Plan of Care Note [code = 60861-7] Goal Plan of Care Note [code = 41774-1] Goal Plan of Care Note [code = 20634-9] Goal Plan of Care Note [code = 81301-5] Goal Plan of Care Note [code = 42077-9] Goal Plan of Care Note [code = 96834-1] Goal Plan of Care Note [code = 18400-2] Goal Plan of Care Note [code = 05962-5] Goal Plan of Care Note [code = 79585-0] Goal Plan of Care Note [code = 57542-2] Goal Plan of Care Note [code = 62762-2] Goal Plan of Care Note [code = 52461-9] Goal Plan of Care Note [code = 73103-0] Goal Plan of Care Note [code = 12737-3] Goal Plan of Care Note [code = 95056-2] Goal Plan of Care Note [code = 01544-1] Goal Plan of Care Note [code = 01661-1] Goal Plan of Care Note [code = 12085-4] Goal Plan of Care Note [code = 10465-0] Goal Plan of Care Note [code = 78814-4] Goal Plan of Care Note [code = 05267-1] Goal Plan of Care Note [code = 04070-4] Goal Plan of Care Note [code = 62360-8] Goal Plan of Care Note [code = 04079-8] Goal Plan of Care Note [code = 69730-9] Goal Plan of Care Note [code = 50243-3] Goal Plan of Care Note [code = 74716-4] Goal Plan of Care Note [code = 60964-8] Goal Plan of Care Note [code = 65827-6] Goal Plan of Care Note [code = 56837-0] Goal Plan of Care Note [code = 39680-9] Goal Plan of Care Note [code = 48509-1] Goal Plan of Care Note [code = 08221-9] Goal Plan of Care Note [code = 96576-4] Goal Plan of Care Note [code = 98940-4] Goal Plan of Care Note [code = 09143-9] Goal Plan of Care Note [code = 97996-4] Goal Plan of Care Note [code = 89782-4] Goal Plan of Care Note [code = 74548-0] Goal Plan of Care Note [code = 63098-0] Goal Plan of Care Note [code = 73155-0] Goal Plan of Care Note [code = 10250-9] Goal Plan of Care Note [code = 18999-9] Goal Plan of Care Note [code = 02943-0] Goal Plan of Care Note [code = 68717-3] Goal Plan of Care Note [code = 81547-0] Goal Plan of Care Note [code = 72745-4] Goal Plan of Care Note [code = 60222-7] Goal Plan of Care Note [code = 28538-6] Goal Plan of Care Note [code = 93302-5] Goal Plan of Care Note [code = 26190-1] Goal Plan of Care Note [code = 99581-7] Goal Plan of Care Note [code = 59541-5] Goal Plan of Care Note [code = 58853-4] Goal Plan of Care Note [code = 95121-9] Goal Plan of Care Note [code = 28688-0] Goal Plan of Care Note [code = 31331-4] Goal Plan of Care Note [code = 69794-1] Goal Plan of Care Note [code = 36350-9] Goal Plan of Care Note [code = 63850-8] Goal Plan of Care Note [code = 08931-8] Goal Plan of Care Note [code = 17197-1] Goal Plan of Care Note [code = 45671-9] Goal Plan of Care Note [code = 75964-6] Goal Plan of Care Note [code = 75895-7] Goal Plan of Care Note [code = 56259-6] Goal Plan of Care Note [code = 50315-1] Goal Plan of Care Note [code = 75521-3] Goal Plan of Care Note [code = 99319-5] Goal Plan of Care Note [code = 68036-0] Goal Plan of Care Note [code = 00777-8] Goal Plan of Care Note [code = 09237-7] Goal Plan of Care Note [code = 16840-8] Goal Plan of Care Note [code = 58268-2] Goal Plan of Care Note [code = 11889-3] Goal Plan of Care Note [code = 42675-4] Goal Plan of Care Note [code = 96271-3] Goal Plan of Care Note [code = 42610-7] Goal Plan of Care Note [code = 77564-5] Goal Plan of Care Note [code = 92392-6] Goal Plan of Care Note [code = 34246-7] Goal Plan of Care Note [code = 26856-8] Goal Plan of Care Note [code = 22916-1] Goal Plan of Care Note [code = 07597-0] Goal Plan of Care Note [code = 84502-1] Goal Plan of Care Note [code = 03345-6] Goal Plan of Care Note [code = 10036-6] Goal Plan of Care Note [code = 43920-9] Goal Plan of Care Note [code = 31244-4] Goal Plan of Care Note [code = 60109-2] Goal Plan of Care Note [code = 95769-7] Goal Plan of Care Note [code = 82339-6] Goal Plan of Care Note [code = 04200-6] Goal Plan of Care Note [code = 11759-7] Goal Plan of Care Note [code = 05020-6] Goal Plan of Care Note [code = 45725-5] Goal Plan of Care Note [code = 56731-3] Goal Plan of Care Note [code = 94923-7] Goal Plan of Care Note [code = 38524-6] Goal Plan of Care Note [code = 29317-9] Goal Plan of Care Note [code = 19821-3] Goal Plan of Care Note [code = 25156-8] Goal Plan of Care Note [code = 52379-7] Goal Plan of Care Note [code = 15636-0] Goal Plan of Care Note [code = 83651-3] Goal Plan of Care Note [code = 96833-7] Goal Plan of Care Note [code = 52806-1] Goal Plan of Care Note [code = 00389-0] Goal Plan of Care Note [code = 47864-6] Goal Plan of Care Note [code = 93954-6] Goal Plan of Care Note [code = 73375-4] Goal Plan of Care Note [code = 89285-1] Goal Plan of Care Note [code = 22792-8] Goal Plan of Care Note [code = 43918-3] Goal Plan of Care Note [code = 94562-8] Goal Plan of Care Note [code = 64609-9] Goal Plan of Care Note [code = 64978-5] Goal Plan of Care Note [code = 33902-7] Goal Plan of Care Note [code = 37139-0] Goal Plan of Care Note [code = 40490-6] Goal Plan of Care Note [code = 11518-4] Goal Plan of Care Note [code = 28658-8] Goal Plan of Care Note [code = 99416-2] Goal Plan of Care Note [code = 89006-7] Goal Plan of Care Note [code = 32291-6] Goal Plan of Care Note [code = 88393-3] Goal Plan of Care Note [code = 09528-8] Goal Plan of Care Note [code = 26386-9] Goal Plan of Care Note [code = 11846-0] Goal Plan of Care Note [code = 31276-4] Goal Plan of Care Note [code = 38173-6] Goal Plan of Care Note [code = 83261-3] Goal Plan of Care Note [code = 02043-3] Goal Plan of Care Note [code = 11239-2] Goal Plan of Care Note [code = 11805-3] Goal Plan of Care Note [code = 94852-7] Goal Plan of Care Note [code = 57479-2] Goal Plan of Care Note [code = 25357-7] Goal Plan of Care Note [code = 70333-8] Goal Plan of Care Note [code = 15320-7] Goal Plan of Care Note [code = 56823-7] Goal Plan of Care Note [code = 31223-3] Goal Plan of Care Note [code = 08218-5] Goal Plan of Care Note [code = 11063-0] Goal Plan of Care Note [code = 14117-0] Goal Plan of Care Note [code = 97895-6] Goal Plan of Care Note [code = 85970-6] Goal Plan of Care Note [code = 56128-7] Goal Plan of Care Note [code = 86460-5] Goal Plan of Care Note [code = 01765-7] Goal Plan of Care Note [code = 22378-4] Goal Plan of Care Note [code = 30518-7] Goal Plan of Care Note [code = 39722-1] Goal Plan of Care Note [code = 25196-7] Goal Plan of Care Note [code = 56063-5] Goal Plan of Care Note [code = 49362-6] Goal Plan of Care Note [code = 58178-3] Goal Plan of Care Note [code = 71905-4] Goal Plan of Care Note [code = 14621-4] Goal Plan of Care Note [code = 20523-9] Goal Plan of Care Note [code = 04023-3] Goal Plan of Care Note [code = 60953-6] Goal Plan of Care Note [code = 08612-7] Goal Plan of Care Note [code = 02023-6] Goal Plan of Care Note [code = 88390-9] Goal Plan of Care Note [code = 88175-6] Goal Plan of Care Note [code = 87149-9] Goal Plan of Care Note [code = 50550-7] Goal Plan of Care Note [code = 46201-6] Goal Plan of Care Note [code = 65474-9] Goal Plan of Care Note [code = 45117-2] Goal Plan of Care Note [code = 19647-3] Goal Plan of Care Note [code = 06968-3] Goal Plan of Care Note [code = 29954-8] Goal Plan of Care Note [code = 47187-6] Goal Plan of Care Note [code = 31038-7] Goal Plan of Care Note [code = 41489-9] Goal Plan of Care Note [code = 93357-3] Goal Plan of Care Note [code = 41922-4] Goal Plan of Care Note [code = 43299-0] Goal Plan of Care Note [code = 49682-6] Goal Plan of Care Note [code = 24421-3] Goal Plan of Care Note [code = 21511-8] Goal Plan of Care Note [code = 21821-8] Goal Plan of Care Note [code = 03822-8] Goal Plan of Care Note [code = 33740-9] Goal Plan of Care Note [code = 56512-9] Goal Plan of Care Note [code = 15570-7] Goal Plan of Care Note [code = 94553-0] Goal Plan of Care Note [code = 68222-3] Goal Plan of Care Note [code = 33698-5] Goal Plan of Care Note [code = 60145-4] Goal Plan of Care Note [code = 25375-1] Goal Plan of Care Note [code = 37573-3] Goal Plan of Care Note [code = 30217-5] Goal Plan of Care Note [code = 02762-1] Goal Plan of Care Note [code = 79032-3] Goal Plan of Care Note [code = 14623-2] Goal Plan of Care Note [code = 07639-7] Goal Plan of Care Note [code = 47595-2] Goal Plan of Care Note [code = 52604-9] Goal Plan of Care Note [code = 91009-0] Goal Plan of Care Note [code = 04099-8] Goal Plan of Care Note [code = 92860-5] Goal Plan of Care Note [code = 75408-9] Goal Plan of Care Note [code = 48899-2] Goal Plan of Care Note [code = 03696-1] Goal Plan of Care Note [code = 11751-8] Goal Plan of Care Note [code = 91081-7] Goal Plan of Care Note [code = 06521-4] Goal Plan of Care Note [code = 65156-0] Goal Plan of Care Note [code = 50110-3] Goal Plan of Care Note [code = 70430-1] Goal Plan of Care Note [code = 42577-3] Encounters Start Date/Time End Date/Time Encounter Type Admission Type Attending Clinicians Care Facility Care Department Encounter ID Source 2025-01-19 11:00:00 2025-01-19 11:30:00 Office Visit Pretty Ernandez [facility] 1.2.840.114 350.1.13.10 4.2.7.2.686 [id number] [facility] 2025-01-19 11:00:00 2025-01-19 11:00:00 Outpatient PRETTY SANCHEZ PRETTY [facility] [id number] [facility] 2025-01-03 10:00:00 2025-01-03 09:56:45 Outpatient PETRONA LAIRD [facility] [id number] [facility] 2024-12-31 19:30:00 2024-12-31 20:30:00 Emergency ER MONA [facility] [id number] [facility] 2024-12-31 19:30:00 2024-12-31 19:30:00 Registered Emergency Room [facility] [id number] [id number]-843 c-qj3y0403e 5eb [id number] [facility] 2024-12-31 10:00:00 2024-12-31 10:00:00 [facility] [id number] [facility] 2024-12-29 00:00:00 2024-12-29 00:00:00 Joana Logan MD: [address], [address], [place] [phone] , Ph. Formerly [facility] - GC_GCBZW_Yasmine harrison Ayo* [id number] [facility] 2024-12-28 00:00:00 2024-12-28 00:00:00 Joana Logan MD: [address], [address], [place] [phone] , Ph. Formerly [facility] - GC_GCBZW_Yasmine harrison Ayo* [id number] [facility] 2024-12-23 00:00:00 2024-12-23 00:00:00 ASHU Juarez: [address], [place] [phone] , Ph. Formerly [facility] - GC_GCBZW_Yasmine christy Ayo* [id number] [facility] 2024-12-21 00:00:00 2024-12-21 00:00:00 Joana Logan MD: [address], [place] [phone] , Ph. Formerly [facility] - GC_GCBZW_Nd christy Ayo* [id number] [facility] 2024-12-06 11:13:44 2024-12-06 11:13:44 Outpatient SFA SFA [id number] Toney Cowan Zurdo 2024-12-06 00:00:00 2024-12-06 00:00:00 Outpatient Visit SFA [id number]-n 86b-45ca-9 5ac-e845de 5h436l Toney Cowan Zurdo 2024-11-30 00:00:00 2024-11-30 00:00:00 ASHU Juarez: [address], [place] [phone] , Ph. Formerly [facility] - GC_GCBZW_La christy Rollins* [id number] [facility] 2024-11-02 16:37:36 2024-11-02 16:37:36 Outpatient SFA [facility] 7 Toney Cowan Zurdo 2024-11-02 00:00:00 2024-11-02 00:00:00 Outpatient Visit SFA [id number] e98-9011-n [id number] 03b32f Toney Renner 2024-10-29 15:54:49 2024-10-29 15:54:49 Outpatient SFA [facility] 102 Toney Cowan Zurdo 2024-10-29 00:00:00 2024-10-29 00:00:00 Outpatient Visit SFA [id number] 7ac-4f20-b 7r9-545x06 e767b5 Toney Renner 2024-09-14 10:15:47 2024-09-14 10:15:47 Outpatient SFA [facility] [id number] Toney Cowan Zurdo 2024-09-14 00:00:00 2024-09-14 00:00:00 Outpatient Visit SFA [id number] ae1-4e0a-a [id number]-47979l [id number] Toney Renner 2024-09-02 11:12:02 2024-09-02 11:12:02 Outpatient SFA [facility] 1107 Toney Cowan Zurdo 2024-09-02 00:00:00 2024-09-02 00:00:00 Outpatient Visit SFA [id number] i268b1b3-x dcb-43ea-b [id number] dd99d7 Toney Renner 2024-09-01 10:00:00 2024-09-01 10:00:00 Outpatient PRETTY SANCHEZ HAIDER [facility] [id number] [facility] 2024-07-02 11:06:04 2024-07-02 11:06:04 Outpatient SFA SFA 905 Toney Renner 2024-07-02 00:00:00 2024-07-02 00:00:00 Outpatient Visit SFA [id number] q9e02g29-e 6o9-0m20-j 8a2-7szys1 8d56c8 Toney Renner 2024-06-19 10:45:53 2024-06-19 10:45:53 Outpatient SFA SFA 0824 Toney Renner 2024-06-19 00:00:00 2024-06-19 00:00:00 Outpatient Visit SFA [id number]-6 ecc-414b-a [id number] Toney Renner 2024-06-11 09:45:29 2024-06-11 09:45:29 Outpatient SFA SFA 16 Toney Renner 2024-06-11 00:00:00 2024-06-11 00:00:00 Outpatient Visit SFA [id number] k18h95yj-z 786-4a80-8 [id number] [id number] Toney Renner 2024-04-14 08:49:42 2024-04-14 08:49:42 Outpatient SFA SFA 19 Toney Renner 2024-03-06 11:42:26 2024-03-06 11:42:26 Outpatient SFA SFA 11 Toney Renner 2024-03-04 17:23:24 2024-03-04 17:23:24 Outpatient SFA SFA 0509 Toney Renner 2024-03-04 00:00:00 2024-03-04 00:00:00 Outpatient Visit SFA [id number] [id number]-[id number] Toney Renner 2024-02-02 10:23:11 2024-02-02 10:23:11 Outpatient SFA SFA [id number] Toney Renner 2024-01-28 10:30:00 2024-01-28 10:30:00 Outpatient PRETTY SANCHEZ HAIDER [facility] [id number] [facility] 2024-01-27 10:00:35 2024-01-27 10:00:35 Outpatient [facility] [id number] Toney Renner 2024-01-02 13:40:00 2024-01-02 13:40:00 Office [facility]ile [facility] IRMA GODFREY [facility] 1.2.840.114 350.1.13.10 4.2.7.2.686 [id number] [facility] 2024-01-02 13:40:00 2024-01-02 13:26:56 [facility] [id number] [facility] 2023-12-19 13:00:00 2023-12-19 13:00:00 [facility] [id number] [facility] 2023-11-27 09:12:02 2023-11-27 09:12:02 Outpatient [facility] 0201 Toney Renner 2023-11-17 10:15:00 2023-11-17 10:15:00 Outpatient R MIRIAM GARCIAShiloh [facility] [id number] [facility] 2023-11-10 14:06:58 2023-11-10 14:06:58 Outpatient [facility] [id number] Toney Cowan Zurdo 2023-10-03 00:00:00 2023-10-03 00:00:00 Outpatient GC_GCBZW_Ka diyala_S [facility] [id number] [facility] 2023-09-25 10:00:00 2023-09-25 10:00:00 Outpatient R LANDEN PERSAUD CHOCKALINGA M [facility] [id number] [facility] 2023-09-23 11:17:46 2023-09-23 11:17:46 Outpatient [facility] [id number] Toney Cowan Springer 2023-09-22 11:07:05 2023-09-22 11:07:05 Outpatient [facility] [id number] Toney Cowan Springer 2023-09-11 10:20:00 2023-09-11 10:20:00 Outpatient R LANDEN PERSAUD CHOCKALINGA M [facility] [id number] [facility] 2023-09-08 00:00:00 2023-09-08 00:00:00 Transition of Care Abdelrahman Leone ..840.114 350.1.13.10 4.2.7.2.686 [id number] [facility] 2023-09-01 15:37:00 2023-09-05 11:33:00 Inpatient Fabio KEISHA [facility] [id number] [facility] 2023-09-01 15:37:00 2023-09-05 11:33:00 Hospital Encounter Maxi Goldberg David [facility] ..840.114 350.1.13.10 4.2.7.2.686 [id number] [facility] 2023-09-05 00:00:00 2023-09-05 00:00:00 Outpatient GC_GCBZW_Ka diyala_S PRIV PRIV [id number] [facility] 2023-08-18 09:55:00 2023-08-18 09:55:00 Outpatient [facility] [id number] [facility]3 Toney Renner 2023-08-08 00:00:00 2023-08-08 00:00:00 Outpatient GC_GCBZW_Ka diyala_S PRIV PRIV [id number] [facility] 2023-07-22 00:00:00 2023-07-22 00:00:00 Telephone Petrona Burnette [facility] 1..840.114 350.1.13.10 4.2.7.2.686 [id number] [facility] 2023-07-21 10:20:00 2023-07-21 23:59:00 Hospital Encounter Radiology [facility] 1.2.840.114 350.1.13.10 4.2.7.2.686 [id number] [facility] 2023-07-21 00:00:00 2023-07-21 23:59:00 Outpatient R RADIOLOGY [facility] [id number] [facility] 2023-07-16 10:44:58 2023-07-16 10:44:58 Outpatient SFA SFA [id number] Toney Renner 2023-07-12 00:00:00 2023-07-12 00:00:00 Outpatient GC_GCBZW_Ka diyala_S PRIV PRIV [id number] [facility] 2023-07-12 00:00:00 2023-07-12 00:00:00 Outpatient GC_GCBZW_Ka diyala_S PRIV PRIV [id number] [facility] 2023-06-25 00:00:00 2023-06-25 00:00:00 Outpatient GC_GCBZW_Ka diyala_S PRIV PRIV [id number] [facility] 2023-06-23 00:00:00 2023-06-23 00:00:00 Telephone Petrona Burnette [facility] 1..840.114 350.1.13.10 4.2.7.2.686 [id number] [facility] 2023-06-21 22:13:00 2023-06-22 02:04:00 Emergency X CHRISTINA LOU [facility] ERT [id number] [facility] 2023-06-21 22:13:00 2023-06-22 02:04:00 Emergency MiguelChristina heard [facility] 1..840.114 350.1.13.10 4.2.7.2.686 [id number] [facility] 2023-06-19 13:21:09 2023-06-19 13:21:09 Outpatient SFA SFA 24 Toney Renner 2023-06-18 17:26:11 2023-06-18 17:26:11 Outpatient SFA [facility] 23 Toney Renner 2023-06-17 00:00:00 2023-06-17 00:00:00 Telephone Vasile [address]840.114 350.1.13.10 4.2.7.2.686 [id number] [facility] 2023-06-16 13:40:00 2023-06-16 13:44:[address] [facility] [id number] [facility] 2023-06-16 13:40:00 2023-06-16 13:44:41 Office Visit Vasile [facility] 1.2.840.114 350.1.13.10 4.2.7.2.686 [id number] [facility] 2023-06-01 18:27:00 2023-06-02 00:35:00 Emergency X BETSEY BOSS [facility] ERT [id number] [facility] 2023-06-01 18:27:00 2023-06-02 00:35:00 Emergency Betsey Boss [facility] 1.2.840.114 350.1.13.10 4.2.7.2.686 [id number] [facility] 2023-06-02 00:00:00 2023-06-02 00:00:00 Outpatient GC_GCBZW_Ka azar_S [facility] [id number] [facility] 2023-05-10 01:24:00 2023-05-12 11:58:00 Inpatient ER SALLY HODGE [facility] [id number] [facility] 2023-05-11 00:00:2023-05-11 00:00:00 Orders Only Doctor Unassigned, Chambers [facility] 1..840.114 350.1.13.10 4.2.7.2.686 [id number] [facility] 2023-05-09 21:32:00 2023-05-09 21:32:00 Emergency ER TANNER VAZ [facility] [id number] [facility] 2023-05-09 00:00:00 2023-05-09 00:00:00 Outpatient GC_GCBZW_Ka diyala_S [facility]IV [facility] [id number] [facility] 2023-05-02 14:05:53 2023-05-02 14:05:53 Outpatient SFA [facility] [id number] Toney Cowan Zurdo 2023-04-28 10:00:00 2023-04-28 10:00:00 Outpatient SHANE AGUERO [facility] [id number] [facility] 2023-03-23 09:38:00 2023-03-23 13:02:00 emergency [id number] -843c-ca8 g2870k7tu [id number] 81-551e-843 c-zt9d1834s 5eb [id number] 2023-03-23 09:38:00 2023-03-23 13:02:00 Emergency ER MONA MOSS [facility] [id number] [facility] 2023-03-11 19:23:00 2023-03-12 00:12:00 Emergency X SOLOMON MILLAN [facility] ERT [id number] [facility] 2023-03-11 19:23:00 2023-03-12 00:12:00 Emergency Solomon Millan [facility] 1..840.114 350.1.13.10 4.2.7.2.686 [id number] [facility] 2023-02-20 09:20:00 2023-02-20 09:20:00 Outpatient ALICIA MENDOZA [facility] [id number] [facility] 2023-01-23 15:27:35 2023-01-23 15:27:35 Outpatient JESI DENNISON [id number] Toney Renner 2023-01-23 08:40:00 2023-01-23 08:40:00 Outpatient R ALICIA FARRELL [facility] [id number] [facility] 2022-12-19 13:20:00 2022-12-19 13:49:10 [facility] [id number] [facility] 2022-12-19 13:20:00 2022-12-19 13:49:10 [facility] 1.2840.114 350.1.13.10 4.2.7.2.686 [id number] [facility] 2022-12-19 00:00:00 2022-12-19 00:00:00 Orders Only Doctor Unassigned, Chambers [facility] 1.2840.114 350.1.13.10 4.2.7.2.686 [id number] [facility] 2022-11-21 06:14:00 2022-11-21 12:27:00 Outpatient [facility] [id number] [facility] 2022-11-21 06:14:00 2022-11-21 12:27:00 Hospital Encounter Vasile [facility] 1.0.114 350.1.13.10 4.2.7.2.686 [id number] [facility] 2022-11-21 07:10:00 2022-11-21 09:10:00 Surgery Pretty Pizarro [facility] 1.2840.114 350.1.13.10 4.2.7.2.686 [id number] [facility] 2022-11-21 00:00:00 2022-11-21 00:00:00 Orders Only Doctor Unassigned, Chambers [facility] 1.2.840.114 350.1.13.10 4.2.7.2.686 [id number] [facility] 2022-11-13 13:55:43 2022-11-13 13:55:43 Outpatient SFA JESI [id number] Toney Renner 2022-11-13 00:00:00 2022-11-13 00:00:00 Outpatient Visit qy04r5d7- 5a7m-5l84 -e914-698 yn375d7b7 [id number] dh36t7f4-3 q5d-0b02-d [id number] 03f8b5 2022-11-07 13:40:00 2022-11-07 13:48:05 [facility] [id number] [facility] 2022-11-07 13:40:00 2022-11-07 13:48:05 Office Visit Vasile [facility] 1.2.840.114 350.1.13.10 4.2.7.2.686 [id number] [facility] 2022-11-07 00:00:00 2022-11-07 00:00:00 Orders Only Doctor Unassigned, Chambers [facility] 1.2.840.114 350.1.13.10 4.2.7.2.686 [id number] [facility] 2022-10-29 13:00:00 2022-10-29 13:00:00 [facility] [id number] [facility] 2022-10-28 00:00:00 2022-10-28 00:00:00 [facility] Un[facility] 1.2.840.114 350.1.13.10 4.2.7.2.686 [id number] [facility] 2022-10-27 11:59:00 2022-10-27 14:26:00 Emergency X MAGGI CALLOWAY [facility] ERT [id number] [facility] 2022-10-27 11:59:00 2022-10-27 14:26:00 Emergency Maggi Calloway E [facility] 1..840.114 350.1.13.10 4.2.7.2.686 [id number] [facility] 2022-10-10 11:07:36 2022-10-10 11:07:36 Outpatient SFA [facility] [id number] Toney Renner 2022-10-10 00:00:00 2022-10-10 00:00:00 Outpatient Visit [id number]- 51c1-74gq -afcf-58a [id number] [id number] n3c5090e-1 7o9-19jx-s fcf-58a1a7 [id number] 2022-09-05 00:00:00 2022-09-05 00:00:00 Outpatient Visit nv354d36- g444-9k3k -2d14-t06 [id number] xw902c08-a 958-4c8f-8 f94-j05737 1067e8 2022-09-03 11:00:00 2022-09-03 11:16:40 Outpatient R VASILEBHAVESHYAO [facility] [id number] [facility] 2022-09-03 11:00:00 2022-09-03 11:16:40 Office Visit Petrona Burnette [facility] 1.2.840.114 350.1.13.10 4.2.7.2.686 [id number] [facility] 2022-08-13 00:00:00 2022-08-13 00:00:00 Outpatient Visit 2x1721js- ti2i-6k7v -88ca-354 c3j7utm5z [id number] 5y5653dz-k f2h-5y6l-8 8ca-354d7f 0bbe2b 2022-08-13 00:00:00 2022-08-13 00:00:00 [facility] 1.2.840.114 350.1.13.10 4.2.7.2.686 [id number] [facility] 2022-08-08 10:46:11 2022-08-08 23:59:00 Hospital Encounter Vasile [facility] 1.2.840.114 350.1.13.10 4.2.7.2.686 [id number] [facility] 2022-08-08 10:45:57 2022-08-08 10:45:57 Hospital Encounter Vasile [facility] 1.2.840.114 350.1.13.10 4.2.7.2.686 [id number] [facility] 2022-08-08 10:45:44 2022-08-08 10:45:44 Hospital Encounter Vasile [facility] 1.2.840.114 350.1.13.10 4.2.7.2.686 [id number] [facility] 2022-08-08 10:45:30 2022-08-08 10:45:[address] [facility] [id number] [facility] 2022-08-08 10:45:30 2022-08-08 10:45:30 Hospital Encounter Vasile [facility] 1.2.840.114 350.1.13.10 4.2.7.2.686 [id number] [facility] 2022-08-06 11:20:00 2022-08-06 12:00:00 Office Visit Lila [facility]var[facility] 1..840.114 350.1.13.10 4.2.7.2.686 [id number] [facility] 2022-08-06 11:20:00 2022-08-06 11:20:00 Outpatient R [facility]ASH[facility]DA [facility] [id number] [facility] 2022-08-05 00:00:00 2022-08-05 00:00:00 [facility] [id number] 2022-08-05 00:00:00 2022-08-05 00:00:00 Transition of Care Lisette Peck ONELIA SLAUGHTER 1..840.114 350.1.13.10 4.2.7.2.686 [id number] [facility] 2022-08-03 10:23:13 2022-08-03 10:23:13 Outpatient [facility] [id number] Toney Renner 2022-07-30 10:09:00 2022-08-02 14:14:00 Outpatient X KARO KARTHIK [facility] [id number] [facility] 2022-07-30 10:09:00 2022-08-02 14:14:00 Emergency Destiney Blair [facility] 1..840.114 350.1.13.10 4.2.7.2.686 [id number] [facility] 2022-08-02 00:00:00 2022-08-02 00:00:00 [facility] 1..840.114 350.1.13.10 4.2.7.2.686 [id number] [facility] 2022-07-18 00:00:00 2022-07-18 00:00:00 Outpatient Visit [id number] -[id number]-134 [id number] 4cb-4854-9 43b-134aa4 f61cef 2022-06-06 00:00:00 2022-06-06 00:00:00 Outpatient Visit [id number] 0he4-98h9 -8693-62f [id number] [id number] eb2-45b9-8 693-62f03e 2f1fbe 2022-05-30 00:00:00 2022-05-30 00:00:00 Outpatient Visit [id number] [id number] -7h52-6nc [id number] 0k0-1037-2 k31-4me92c 94acf2 2022-05-14 00:00:00 2022-05-14 00:00:00 Outpatient Visit iiwd9cyb- g6ig-2231 -b49t-p30 [id number] ajnp8vdy-q 0ed-4477-b 77d-a664a2 [id number] 2022-05-02 00:00:00 2022-05-02 00:00:00 Outpatient Visit [id number] -57u3-156 [id number] 487-49ce-8 0b7-7938oa 81616g 2021-12-20 00:00:00 2021-12-20 00:00:00 Outpatient PETRONA LAIRD [facility] [id number] [facility] 2021-11-23 00:00:00 2021-11-23 00:00:00 Petrona Vallejo [facility] 1.2.840.114 350.1.13.10 4.2.7.2.686 [id number] [facility] 2021-11-05 14:58:39 2021-11-05 23:59:00 Outpatient R PETRONA BURNETTE [facility] [id number] [facility] 2021-11-05 14:58:39 2021-11-05 23:59:00 Hospital Encounter [facility]aves[facility]ettemarc[facility] [facility] 1..840.114 [id number] [facility] 2021-10-29 15:40:00 2021-10-29 16:06:16 [facility] [id number] [facility] 2021-10-09 00:00:00 2021-10-09 00:00:00 Orders Only Doctor Unassigned, Chambers [facility] 1..840.114 [id number] [id number] [facility] Results Test Description Test Time Test Comments Results Result Co mments Source [facility] Medicalurinalysis, [id number] 13:15:35* Test Item Value Reference Range Interpretation Comme nts Leukocytes (test code = Leukocytes) Negative Nitrite (test code = Nitrite) negative Urobilinogen (test code = Urobilinogen) Normal Protein (test code = Protein) Negative pH (test code = pH) 7.0 Blood (test code = Blood) Negative Specific Hector (test code = Specific Hector) 1.015 Ketone (test code = Ketone) Negative Bilirubin (test code = Bilirubin) Negative Glucose (test code = Glucose) Negative Appearance (test code = Appearance) Slightly Cloudy Color (test code = Color) Pale Yellow [facility] Medicalurinalysis, [id number] 09:52:16* Test Item Value Reference Range Interpretation Comme nts Leukocytes (test code = Leukocytes) Negative Nitrite (test code = Nitrite) negative Urobilinogen (test code = Urobilinogen) Normal Protein (test code = Protein) Negative pH (test code = pH) 6.0 Blood (test code = Blood) Negative Specific Hector (test code = Specific Hector) 1.020 Ketone (test code = Ketone) Negative Bilirubin (test code = Bilirubin) Negative Glucose (test code = Glucose) Negative Appearance (test code = Appearance) Cloudy Color (test code = Color) Dark Yellow Ursula López, [id number] 10:43:00SPECIMEN NUMBER: [id number] CULTURE, URINE SPECIMEN NUMBER: [id number] SOURCE: URINE REPORT STATUS: FINAL FINAL REPORT: 09/08/2024 NO SPECIMEN RECEIVED FOR TESTING. CHARGES DELETED. CULTURE, [id number] 00:00:00* Test Item Value Reference Range Interpretation Comme katty CULTURE, URINE (test code = 64325) SPECIMEN NUMBER: [id number] Toney MarcusLTURE, [id number] 00:00:00* Test Item Value Reference Range Interpretation Comme katty CULTURE, URINE (test code = 77445) SPECIMEN NUMBER: [id number] Toney Salinas, [id number] 00:00:00* Test Item Value Reference Range Interpretation Comme katty CULTURE, URINE (test code = 39614) SPECIMEN NUMBER: [id number] Toney Salinas, [id number] 00:00:00* Test Item Value Reference Range Interpretation Comme katty CULTURE, URINE (test code = 66231) SPECIMEN NUMBER: [id number] Toney RennerHEMOGLOBIN [id number] 21:40:28* Test Item Value Reference Range Interpretation Comme katty HEMOGLOBIN A1c (test code = 84471) 9.2 % 4.2-5.6 H [employer] GUIDELINES FOR HGB A1C: [...] ALTERNATE TESTING OR LABORATORY CONSULTATION. COMPREHENSIVE METABOLIC [id number] 06:52:05* Test Item Value Reference Range Interpretation Comme nts GLUCOSE (test code = 2217) 206 MG/DL 70-99 H BUN (test code = 2208) 16 MG/DL 8-23 CREATININE (test code = 2214) 0.53 MG/DL 0.60-1.30 L eGFR (2020 CKD-EPI) (test co de = 10047) 98 ML/MIN/1.73 >60 CALC BUN/CREAT (test code = 2235) 30 RATIO 6-28 H SODIUM (test code = 223) 144 MEQ/L 133-146 POTASSIUM (test code = 2228) 4.9 MEQ/L 3.5-5.4 CHLORIDE (test code = 221) 102 MEQ/L 95-107 CARBON DIOXIDE (test code = 2206) 24 MEQ/L 19-31 CALCIUM (test code = 220) 10.6 MG/DL 8.5-10.5 H PROTEIN, TOTAL (test code = 2228) 8.0 G/DL 6.1-8.3 ALBUMIN (test code = 2200) 4.5 G/DL 3.5-5.2 CALC GLOBULIN (test code = 2240) 3.5 G/DL 1.9-3.7 CALC A/G RATIO (test code = 223) 1.3 RATIO 1.0-2.6 BILIRUBIN, TOTAL (test code = 2206) 0.5 MG/DL <=1.2 ALKALINE PHOSPHATASE (test code = 4) 100 U/L 40-142 AST (test code = 2218) 25 U/L 9-40 ALT (test code = 2219) 24 U/L 5-40 LIPID [id number] 06:52:05* Test Item Value Reference Range Interpretation [...] SPECIMENS. FOR MOREINFORMATION, SEE CLIENT ANNOUNCEMENT AT [email or web address] RISK RATIO LDL/HDL (test code = 2238) 1.47 RATIO <3.22 UNLESS OTHERW ISE INDICATED, ALL TESTING PERFORMED AT [facility] [address] [place] [address] [employer]ACH CHAUFFEUR: LILA SHANNON M.D. CLIA NUMBER [id number] [facility] [place]. [id number] SEDIMENTATION [id number] 04:12:31* Test Item Value Reference Range Interpretation Comme nts SEDIMENTATION RATE (test cod e = 1017) 10 MM/HOUR 0-20 HEMOGLOBIN [id number] 00:00:00* Test Item Value Reference Range Interpretation Comme nts HEMOGLOBIN A1c (test code = 66286) 9.2 % Toney Cowan AustinCOMPREHENSIVE METABOLIC [id number] 00:00:00* Test Item Value Reference Range Interpretation Comme nts GLUCOSE (test code = 2217) 206 MG/DL BUN (test code = 2208) 16 MG/DL CREATININE (test code = 2214) 0.53 MG/DL eGFR (2020 CKD-EPI) (test co de = 59785) 98 ML/MIN/1.73 CALC BUN/CREAT (test code = [...] = 2219) 24 U/L Toney Cowan AustinSEDIMENTATION [id number] 00:00:00* Test Item Value Reference Range Interpretation Comme nts SEDIMENTATION RATE (test cod e = 1017) 10 MM/HOUR Toney Cowan AustinLIPID [id number] 00:00:00* Test Item Value Reference Range Interpretation Comme nts CHOLESTEROL (test code = 2210) 156 MG/DL TRIGLYCERIDES (test code = 2232) 105 MG/DL HDL CHOLESTEROL (test code = 2220) 55 MG/DL CALC LDL CHOL (test code = 2237) 81 MG/DL RISK RATIO LDL/HDL (test cod e = 2238) 1.47 RATIO Toney Cowan AustinHEMOGLOBIN [id number] 00:00:00* Test Item Value Reference Range Interpretation Comme nts HEMOGLOBIN A1c (test code = 20283) 9.2 % Toney RennerCOMPREHENSIVE METABOLIC [id number] 00:00:00* Test Item Value Reference Range Interpretation Comme nts GLUCOSE (test code = 2217) 206 MG/DL BUN (test code = 2208) 16 MG/DL CREATININE (test code = 2214) 0.53 MG/DL eGFR (2020 CKD-EPI) (test co de = 49512) 98 ML/MIN/1.73 CALC BUN/CREAT (test code = [...] = 2219) 24 U/L Toney Cowan AustinSEDIMENTATION [id number] 00:00:00* Test Item Value Reference Range Interpretation Comme nts SEDIMENTATION RATE (test cod e = 1017) 10 MM/HOUR Toney RennerLIPID [id number] 00:00:00* Test Item Value Reference Range Interpretation Comme nts CHOLESTEROL (test code = 2210) 156 MG/DL TRIGLYCERIDES (test code = 2232) 105 MG/DL HDL CHOLESTEROL (test code = 2220) 55 MG/DL CALC LDL CHOL (test code = 2237) 81 MG/DL RISK RATIO LDL/HDL (test cod e = 2238) 1.47 RATIO Toney RennerHEMOGLOBIN [id number] 00:00:00* Test Item Value Reference Range Interpretation Comme nts HEMOGLOBIN A1c (test code = 53844) 9.2 % Toney RennerCOMPREHENSIVE METABOLIC [id number] 00:00:00* Test Item Value Reference Range Interpretation Comme nts GLUCOSE (test code = 2217) 206 MG/DL BUN (test code = 2208) 16 MG/DL CREATININE (test code = 2214) 0.53 MG/DL eGFR (2020 CKD-EPI) (test co de = 65447) 98 ML/MIN/1.73 CALC BUN/CREAT (test code = [...] = 2219) 24 U/L Toney Cowan AustinSEDIMENTATION [id number] 00:00:00* Test Item Value Reference Range Interpretation Comme nts SEDIMENTATION RATE (test cod e = 1017) 10 MM/HOUR Toney RennerLIPID [id number] 00:00:00* Test Item Value Reference Range Interpretation Comme nts CHOLESTEROL (test code = 2210) 156 MG/DL TRIGLYCERIDES (test code = 2232) 105 MG/DL HDL CHOLESTEROL (test code = 2220) 55 MG/DL CALC LDL CHOL (test code = 2237) 81 MG/DL RISK RATIO LDL/HDL (test cod e = 2238) 1.47 RATIO Toney RennerHEMOGLOBIN [id number] 00:00:00* Test Item Value Reference Range Interpretation Comme nts HEMOGLOBIN A1c (test code = 07556) 9.2 % Toney RennerCOMPREHENSIVE METABOLIC [id number] 00:00:00* Test Item Value Reference Range Interpretation Comme nts GLUCOSE (test code = 2217) 206 MG/DL BUN (test code = 2208) 16 MG/DL CREATININE (test code = 2214) 0.53 MG/DL eGFR (2020 CKD-EPI) (test co de = 55255) 98 ML/MIN/1.73 CALC BUN/CREAT (test code = [...] code = 2219) 24 U/L Toney RennerSEDIMENTATION [id number] 00:00:00* Test Item Value Reference Range Interpretation Comme nts SEDIMENTATION RATE (test cod e = 1017) 10 MM/HOUR Toney RennerLIPID [id number] 00:00:00* Test Item Value Reference Range Interpretation Comme nts CHOLESTEROL (test code = 2210) 156 MG/DL TRIGLYCERIDES (test code = 2232) 105 MG/DL HDL CHOLESTEROL (test code = 2220) 55 MG/DL CALC LDL CHOL (test code = 2237) 81 MG/DL RISK RATIO LDL/HDL (test cod e = 2238) 1.47 RATIO Toney RennerJACE, [id number] 09:36:40SPECIMEN NUMBER: [id number] CULTURE, URINE SPECIMEN NUMBER: [id number] SOURCE: URINE REPORT STATUS: FINAL FINAL REPORT: 07/04/2024 <10,000 CFU/ML UROGENITAL WOLF PRESENT NO COMMON PATHOGENS UNLESS OTHERWISE INDICATED, ALL TESTING PERFORMED AT [facility] [address] [place] [address] MOTOR COACH CHAUFFEUR: LILA SHANNON M.D. [place] NUMBER [id number] [facility]. [id number] CULTURE, [id number] 00:00:00* Test Item Value Reference Range Interpretation Comme nts CULTURE, URINE (test code = 43856) SPECIMEN NUMBER: [id number] Toney RennerCULTURE, [id number] 00:00:00* Test Item Value Reference Range Interpretation Comme nts CULTURE, URINE (test code = 52706) SPECIMEN NUMBER: [id number] Toney RennerCULTURE, [id number] 00:00:00* Test Item Value Reference Range Interpretation Comme nts CULTURE, URINE (test code = 45513) SPECIMEN NUMBER: [id number] Toney RennerCULTURE, [id number] 00:00:00* Test Item Value Reference Range Interpretation Comme nts CULTURE, URINE (test code = 43900) SPECIMEN NUMBER: [id number] Toney RennerCULTURE, [id number] 00:00:00* Test Item Value Reference Range Interpretation Comme nts CULTURE, URINE (test code = 16916) SPECIMEN NUMBER: [id number] Toney RennerCULTURE, [id number] 00:00:00* Test Item Value Reference Range Interpretation Comme nts CULTURE, URINE (test code = 75271) SPECIMEN NUMBER: [id number] Toney MarcusLTURE, [id number] 00:00:00* Test Item Value Reference Range Interpretation Comme nts CULTURE, URINE (test code = 52326) SPECIMEN NUMBER: [id number] Toney RennerL. PNEUMOPHILA [id number] 22:19:23* Test Item Value Reference Range Interpretation [...] to establish a diagnosis. TESTING PERFORMED AT [facility] [address] [place] [address] [place]. [id number] CLIA NO. [id number] UNLESS OTHERWISE INDICATED, ALL TESTING PERFORMED AT [facility] [address] [place] [address] [employer] COACH CHAUFFEUR: LILA SHANNON M.D. CLIA NUMBER [id number] [place]. [id number] L. PNEUMOPHILA [id number] 00:00:00* Test Item Value Reference Range Interpretation Comme nts L. PNEUMOPHILA ANTIBODIES (t est code = 2496) 1.53 IV Toney F AustinL. PNEUMOPHILA [id number] 00:00:00* Test Item Value Reference Range Interpretation Comme nts L. PNEUMOPHILA ANTIBODIES (t est code = 2496) 1.53 IV Toney F AustinL. PNEUMOPHILA [id number] 00:00:00* Test Item Value Reference Range Interpretation Comme nts L. PNEUMOPHILA ANTIBODIES (t est code = 2496) 1.53 IV Toney F AustinL. PNEUMOPHILA [id number] 00:00:00* Test Item Value Reference Range Interpretation Comme nts L. PNEUMOPHILA ANTIBODIES (t est code = 2496) 1.53 IV Toney F AustinL. PNEUMOPHILA [id number] 00:00:00* Test Item Value Reference Range Interpretation Comme nts L. PNEUMOPHILA ANTIBODIES (t est code = 2496) 1.53 IV Toney F AustinL. PNEUMOPHILA [id number] 00:00:00* Test Item Value Reference Range Interpretation Comme nts L. PNEUMOPHILA ANTIBODIES (t est code = 2496) 1.53 IV Toney F AustinL. PNEUMOPHILA [id number] 00:00:00* Test Item Value Reference Range Interpretation Comme nts L. PNEUMOPHILA ANTIBODIES (t est code = 2496) 1.53 IV Toney F AustinL. PNEUMOPHILA [id number] 00:00:00* Test Item Value Reference Range Interpretation Comme nts L. PNEUMOPHILA ANTIBODIES (t est code = 2496) 1.53 IV Toney RennerANA (ANTI-NUCLEAR AB) WITH REFLEX [id number] 06:09:28* Test Item Value Reference Range Interpretation Comme nts ANTI-NUCLEAR ANTIBODIES (test code = 3506) NEGATIVE NEGATIVE Methodology is I ndirect Immunofluorescent Assay (IFA) with a titering system using [id number] cells (Hep2 cells transfected with SS-A/Ro). RENEE PATTERN (REPORTED TITER) (test code = 62655) SEE BELOW HOMOGENEOUS (test code = 58631) NEGATIVE TITER NEGATIVE SPECKLED (test code = 051930) NEGATIVE TITER NEGATIVE DENSE FINE SPECKLED (test code = 38133) NEGATIVE TITER NEGATIVE CENTROMERE (test code = 305546) NEGATIVE TITER NEGATIVE COARSE SPECKLED (test code = 544450) NEGATIVE TITER NEGATIVE DISCRETE NUCLEAR DOTS (test code = 809307) NEGATIVE TITER NEGATIVE NUCLEOLAR (test code = 139852) NEGATIVE TITER NEGATIVE NUCLEAR MEMBRANE (test code = 566627) NEGATIVE TITER NEGATIVE CYTO. RETICULAR (TIANNA) (test code = 175477) NEGATIVE NEGATIVE COMMENTS (test code = 791901) NONE METHOD (test code = 91410) (NOTE) TESTING PERFORME D BY [employer] IFA PLATFORM.THE METHOD INCLUDES A SCREEN THRESHOLD OF 1:80, DIGITIZED AND COMPUTER ALGORITHM-ASSISTED INTERPRETATION OF TITERS AND DIGITAL PATTERNS, AND HEp-2 CELL LINE SUBSTRATE. ADDITIONAL UNUSUAL PATTERNS WILL BE GIVEN COMMENTS.FOR MORE INFORMATION, SEE [email or web address] RENEE REFLEX NUCLEAR AB [id number] 06:09:28* Test Item Value Reference Range Interpretation Comme nts ANTI-NUCLEAR ANTIBODIES (test code = 3506) NEGATIVE NEGATIVE Methodology is I ndirect Immunofluorescent Assay (IFA) with a titering system using [id number] cells (Hep2 cells transfected with SS-A/Ro). RENEE PATTERN (REPORTED TITER) (test code = 33265) SEE BELOW HOMOGENEOUS (test code = 83985) NEGATIVE TITER NEGATIVE SPECKLED (test code = 996860) NEGATIVE TITER NEGATIVE DENSE FINE SPECKLED (test code = 00728) NEGATIVE TITER NEGATIVE CENTROMERE (test code = 754123) NEGATIVE TITER NEGATIVE COARSE SPECKLED (test code = 717709) NEGATIVE TITER NEGATIVE DISCRETE NUCLEAR DOTS (test code = 890937) NEGATIVE TITER NEGATIVE NUCLEOLAR (test code = 733331) NEGATIVE TITER NEGATIVE NUCLEAR MEMBRANE (test code = 273169) NEGATIVE TITER NEGATIVE CYTO. RETICULAR (TIANNA) (test code = 029428) NEGATIVE NEGATIVE COMMENTS (test code = 233643) NONE METHOD (test code = 26882) (NOTE) TESTING PERFORME D BY [employer] IFA PLATFORM.THE METHOD INCLUDES A SCREEN THRESHOLD OF 1:80, DIGITIZED AND COMPUTER ALGORITHM-ASSISTED INTERPRETATION OF TITERS AND DIGITAL PATTERNS, AND HEp-2 CELL LINE SUBSTRATE. ADDITIONAL UNUSUAL PATTERNS WILL BE GIVEN COMMENTS.FOR MORE INFORMATION, SEE [email or web address] ting RENEE (ANTI-NUCLEAR AB) WITH REFLEX [id number] 00:00:00* Test Item Value Reference Range Interpretation Comme nts ANTI-NUCLEAR ANTIBODIES (baljinder t code = 3506) NEGATIVE RENEE PATTERN (REPORTED TITER) (test code = 28443) SEE BELOW HOMOGENEOUS (test code = 42432) NEGATIVE TITER SPECKLED (test code = 792259) NEGATIVE TITER DENSE FINE SPECKLED (test co de = 32883) NEGATIVE TITER CENTROMERE (test code = 370143) NEGATIVE TITER COARSE SPECKLED (test code = 745919) NEGATIVE TITER DISCRETE NUCLEAR DOTS (test code = 850588) NEGATIVE TITER NUCLEOLAR (test code = 583989) NEGATIVE TITER NUCLEAR MEMBRANE (test code = 846889) NEGATIVE TITER CYTO. RETICULAR (TIANNA) (test code = 098781) NEGATIVE COMMENTS (test code = 135303) NONE METHOD (test code = 25815) (NOTE) Toney RennerRENEE REFLEX NUCLEAR AB [id number] 00:00:00* Test Item Value Reference Range Interpretation Comme nts ANTI-NUCLEAR ANTIBODIES (baljinder t code = 3506) NEGATIVE RENEE PATTERN (REPORTED TITER) (test code = 95286) SEE BELOW HOMOGENEOUS (test code = 62760) NEGATIVE TITER SPECKLED (test code = 928201) NEGATIVE TITER DENSE FINE SPECKLED (test co de = 02739) NEGATIVE TITER CENTROMERE (test code = 599021) NEGATIVE TITER COARSE SPECKLED (test code = 187784) NEGATIVE TITER DISCRETE NUCLEAR DOTS (test code = 005340) NEGATIVE TITER NUCLEOLAR (test code = 408729) NEGATIVE TITER NUCLEAR MEMBRANE (test code = 911818) NEGATIVE TITER CYTO. RETICULAR (TIANAN) (test code = 920038) NEGATIVE COMMENTS (test code = 869088) NONE METHOD (test code = 54613) (NOTE) Toney F Charo (ANTI-NUCLEAR AB) WITH REFLEX [id number] 00:00:00* Test Item Value Reference Range Interpretation Comme nts ANTI-NUCLEAR ANTIBODIES (baljinder t code = 3506) NEGATIVE RENEE PATTERN (REPORTED TITER) (test code = 70210) SEE BELOW HOMOGENEOUS (test code = 86282) NEGATIVE TITER SPECKLED (test code = 403592) NEGATIVE TITER DENSE FINE SPECKLED (test co de = 85638) NEGATIVE TITER CENTROMERE (test code = 570441) NEGATIVE TITER COARSE SPECKLED (test code = 784107) NEGATIVE TITER DISCRETE NUCLEAR DOTS (test code = 619973) NEGATIVE TITER NUCLEOLAR (test code = 310160) NEGATIVE TITER NUCLEAR MEMBRANE (test code = 326838) NEGATIVE TITER CYTO. RETICULAR (TIANNA) (test code = 516748) NEGATIVE COMMENTS (test code = 128631) NONE METHOD (test code = 80876) (NOTE) Toney F Charo REFLEX NUCLEAR AB [id number] 00:00:00* Test Item Value Reference Range Interpretation Comme nts ANTI-NUCLEAR ANTIBODIES (baljinder t code = 3506) NEGATIVE RENEE PATTERN (REPORTED TITER) (test code = 45686) SEE BELOW HOMOGENEOUS (test code = 29323) NEGATIVE TITER SPECKLED (test code = 713557) NEGATIVE TITER DENSE FINE SPECKLED (test co de = 73392) NEGATIVE TITER CENTROMERE (test code = 138860) NEGATIVE TITER COARSE SPECKLED (test code = 586809) NEGATIVE TITER DISCRETE NUCLEAR DOTS (test code = 030712) NEGATIVE TITER NUCLEOLAR (test code = 314248) NEGATIVE TITER NUCLEAR MEMBRANE (test code = 593716) NEGATIVE TITER CYTO. RETICULAR (TIANNA) (test code = 509863) NEGATIVE COMMENTS (test code = 927476) NONE METHOD (test code = 19948) (NOTE) Toney Camryn Charo (ANTI-NUCLEAR AB) WITH REFLEX [id number] 00:00:00* Test Item Value Reference Range Interpretation Comme nts ANTI-NUCLEAR ANTIBODIES (baljinder t code = 3506) NEGATIVE RENEE PATTERN (REPORTED TITER) (test code = 71442) SEE BELOW HOMOGENEOUS (test code = 04699) NEGATIVE TITER SPECKLED (test code = 149947) NEGATIVE TITER DENSE FINE SPECKLED (test co de = 06766) NEGATIVE TITER CENTROMERE (test code = 315068) NEGATIVE TITER COARSE SPECKLED (test code = 841771) NEGATIVE TITER DISCRETE NUCLEAR DOTS (test code = 665514) NEGATIVE TITER NUCLEOLAR (test code = 532353) NEGATIVE TITER NUCLEAR MEMBRANE (test code = 346493) NEGATIVE TITER CYTO. RETICULAR (TIANAN) (test code = 397024) NEGATIVE COMMENTS (test code = 735455) NONE METHOD (test code = 30149) (NOTE) Toney Mancilla REFLEX NUCLEAR AB [id number] 00:00:00* Test Item Value Reference Range Interpretation Comme nts ANTI-NUCLEAR ANTIBODIES (baljinder t code = 3506) NEGATIVE RENEE PATTERN (REPORTED TITER) (test code = 31524) SEE BELOW HOMOGENEOUS (test code = 92382) NEGATIVE TITER SPECKLED (test code = 320618) NEGATIVE TITER DENSE FINE SPECKLED (test co de = 19387) NEGATIVE TITER CENTROMERE (test code = 028752) NEGATIVE TITER COARSE SPECKLED (test code = 387533) NEGATIVE TITER DISCRETE NUCLEAR DOTS (test code = 379243) NEGATIVE TITER NUCLEOLAR (test code = 183228) NEGATIVE TITER NUCLEAR MEMBRANE (test code = 333378) NEGATIVE TITER CYTO. RETICULAR (TIANNA) (test code = 631749) NEGATIVE COMMENTS (test code = 972948) NONE METHOD (test code = 12276) (NOTE) Toney Mancilla (ANTI-NUCLEAR AB) WITH REFLEX [id number] 00:00:00* Test Item Value Reference Range Interpretation Comme nts ANTI-NUCLEAR ANTIBODIES (baljinder t code = 3506) NEGATIVE RENEE PATTERN (REPORTED TITER) (test code = 30686) SEE BELOW HOMOGENEOUS (test code = 30914) NEGATIVE TITER SPECKLED (test code = 744176) NEGATIVE TITER DENSE FINE SPECKLED (test co de = 58640) NEGATIVE TITER CENTROMERE (test code = 776779) NEGATIVE TITER COARSE SPECKLED (test code = 389989) NEGATIVE TITER DISCRETE NUCLEAR DOTS (test code = 821934) NEGATIVE TITER NUCLEOLAR (test code = 102655) NEGATIVE TITER NUCLEAR MEMBRANE (test code = 885261) NEGATIVE TITER CYTO. RETICULAR (TIANNA) (test code = 573575) NEGATIVE COMMENTS (test code = 765270) NONE METHOD (test code = 99377) (NOTE) Toney Mancilla REFLEX NUCLEAR AB [id number] 00:00:00* Test Item Value Reference Range Interpretation Comme nts ANTI-NUCLEAR ANTIBODIES (baljinder t code = 3506) NEGATIVE RENEE PATTERN (REPORTED TITER) (test code = 63720) SEE BELOW HOMOGENEOUS (test code = 40890) NEGATIVE TITER SPECKLED (test code = 756765) NEGATIVE TITER DENSE FINE SPECKLED (test co de = 28049) NEGATIVE TITER CENTROMERE (test code = 393861) NEGATIVE TITER COARSE SPECKLED (test code = 065792) NEGATIVE TITER DISCRETE NUCLEAR DOTS (test code = 263834) NEGATIVE TITER NUCLEOLAR (test code = 059420) NEGATIVE TITER NUCLEAR MEMBRANE (test code = 957129) NEGATIVE TITER CYTO. RETICULAR (TIANNA) (test code = 838445) NEGATIVE COMMENTS (test code = 467227) NONE METHOD (test code = 83725) (NOTE) Toney Mancilla (ANTI-NUCLEAR AB) WITH REFLEX [id number] 00:00:00* Test Item Value Reference Range Interpretation Comme nts ANTI-NUCLEAR ANTIBODIES (baljinder t code = 3506) NEGATIVE RENEE PATTERN (REPORTED TITER) (test code = 26509) SEE BELOW HOMOGENEOUS (test code = 55268) NEGATIVE TITER SPECKLED (test code = 517294) NEGATIVE TITER DENSE FINE SPECKLED (test co de = 18032) NEGATIVE TITER CENTROMERE (test code = 486043) NEGATIVE TITER COARSE SPECKLED (test code = 684521) NEGATIVE TITER DISCRETE NUCLEAR DOTS (test code = 356747) NEGATIVE TITER NUCLEOLAR (test code = 244117) NEGATIVE TITER NUCLEAR MEMBRANE (test code = 638312) NEGATIVE TITER CYTO. RETICULAR (TIANNA) (test code = 812353) NEGATIVE COMMENTS (test code = 378514) NONE METHOD (test code = 22186) (NOTE) Toney Mancilla REFLEX NUCLEAR AB [id number] 00:00:00* Test Item Value Reference Range Interpretation Comme nts ANTI-NUCLEAR ANTIBODIES (baljinder t code = 3506) NEGATIVE RENEE PATTERN (REPORTED TITER) (test code = 56248) SEE BELOW HOMOGENEOUS (test code = 70871) NEGATIVE TITER SPECKLED (test code = 444157) NEGATIVE TITER DENSE FINE SPECKLED (test co de = 44129) NEGATIVE TITER CENTROMERE (test code = 825003) NEGATIVE TITER COARSE SPECKLED (test code = 837623) NEGATIVE TITER DISCRETE NUCLEAR DOTS (test code = 614065) NEGATIVE TITER NUCLEOLAR (test code = 299434) NEGATIVE TITER NUCLEAR MEMBRANE (test code = 246424) NEGATIVE TITER CYTO. RETICULAR (TIANNA) (test code = 076126) NEGATIVE COMMENTS (test code = 233674) NONE METHOD (test code = 90926) (NOTE) Toney Cowan Charo (ANTI-NUCLEAR AB) WITH REFLEX [id number] 00:00:00* Test Item Value Reference Range Interpretation Comme nts ANTI-NUCLEAR ANTIBODIES (baljinder t code = 3506) NEGATIVE RENEE PATTERN (REPORTED TITER) (test code = 48294) SEE BELOW HOMOGENEOUS (test code = 29998) NEGATIVE TITER SPECKLED (test code = 650427) NEGATIVE TITER DENSE FINE SPECKLED (test co de = 98084) NEGATIVE TITER CENTROMERE (test code = 452791) NEGATIVE TITER COARSE SPECKLED (test code = 794581) NEGATIVE TITER DISCRETE NUCLEAR DOTS (test code = 548003) NEGATIVE TITER NUCLEOLAR (test code = 228401) NEGATIVE TITER NUCLEAR MEMBRANE (test code = 119139) NEGATIVE TITER CYTO. RETICULAR (TIANNA) (test code = 514971) NEGATIVE COMMENTS (test code = 150270) NONE METHOD (test code = 47827) (NOTE) Toney Cowan Charo REFLEX NUCLEAR AB [id number] 00:00:00* Test Item Value Reference Range Interpretation Comme nts ANTI-NUCLEAR ANTIBODIES (baljinder t code = 3506) NEGATIVE RENEE PATTERN (REPORTED TITER) (test code = 01942) SEE BELOW HOMOGENEOUS (test code = 90790) NEGATIVE TITER SPECKLED (test code = 060007) NEGATIVE TITER DENSE FINE SPECKLED (test co de = 20860) NEGATIVE TITER CENTROMERE (test code = 758451) NEGATIVE TITER COARSE SPECKLED (test code = 784370) NEGATIVE TITER DISCRETE NUCLEAR DOTS (test code = 534606) NEGATIVE TITER NUCLEOLAR (test code = 931284) NEGATIVE TITER NUCLEAR MEMBRANE (test code = 603940) NEGATIVE TITER CYTO. RETICULAR (TIANNA) (test code = 614457) NEGATIVE COMMENTS (test code = 180771) NONE METHOD (test code = 62148) (NOTE) Toney Cowan Charo (ANTI-NUCLEAR AB) WITH REFLEX [id number] 00:00:00* Test Item Value Reference Range Interpretation Comme nts ANTI-NUCLEAR ANTIBODIES (baljinder t code = 3506) NEGATIVE RENEE PATTERN (REPORTED TITER) (test code = 88799) SEE BELOW HOMOGENEOUS (test code = 29529) NEGATIVE TITER SPECKLED (test code = 970750) NEGATIVE TITER DENSE FINE SPECKLED (test co de = 60699) NEGATIVE TITER CENTROMERE (test code = 049562) NEGATIVE TITER COARSE SPECKLED (test code = 869118) NEGATIVE TITER DISCRETE NUCLEAR DOTS (test code = 156596) NEGATIVE TITER NUCLEOLAR (test code = 347570) NEGATIVE TITER NUCLEAR MEMBRANE (test code = 863555) NEGATIVE TITER CYTO. RETICULAR (TAINNA) (test code = 016885) NEGATIVE COMMENTS (test code = 962652) NONE METHOD (test code = 55969) (NOTE) Toney Mancilla REFLEX NUCLEAR AB [id number] 00:00:00* Test Item Value Reference Range Interpretation Comme nts ANTI-NUCLEAR ANTIBODIES (baljinder t code = 3506) NEGATIVE RENEE PATTERN (REPORTED TITER) (test code = 12686) SEE BELOW HOMOGENEOUS (test code = 74452) NEGATIVE TITER SPECKLED (test code = 666097) NEGATIVE TITER DENSE FINE SPECKLED (test co de = 79946) NEGATIVE TITER CENTROMERE (test code = 975321) NEGATIVE TITER COARSE SPECKLED (test code = 067347) NEGATIVE TITER DISCRETE NUCLEAR DOTS (test code = 745668) NEGATIVE TITER NUCLEOLAR (test code = 074190) NEGATIVE TITER NUCLEAR MEMBRANE (test code = 024989) NEGATIVE TITER CYTO. RETICULAR (TIANNA) (test code = 123784) NEGATIVE COMMENTS (test code = 548259) NONE METHOD (test code = 43843) (NOTE) Toney Mancilla (ANTI-NUCLEAR AB) WITH REFLEX [id number] 00:00:00* Test Item Value Reference Range Interpretation Comme nts ANTI-NUCLEAR ANTIBODIES (baljinder t code = 3506) NEGATIVE RENEE PATTERN (REPORTED TITER) (test code = 07699) SEE BELOW HOMOGENEOUS (test code = 56865) NEGATIVE TITER SPECKLED (test code = 921484) NEGATIVE TITER DENSE FINE SPECKLED (test co de = 59348) NEGATIVE TITER CENTROMERE (test code = 388447) NEGATIVE TITER COARSE SPECKLED (test code = 376492) NEGATIVE TITER DISCRETE NUCLEAR DOTS (test code = 230981) NEGATIVE TITER NUCLEOLAR (test code = 826098) NEGATIVE TITER NUCLEAR MEMBRANE (test code = 182872) NEGATIVE TITER CYTO. RETICULAR (TIANNA) (test code = 171676) NEGATIVE COMMENTS (test code = 559106) NONE METHOD (test code = 32089) (NOTE) Toney Mancilla REFLEX NUCLEAR AB [id number] 00:00:00* Test Item Value Reference Range Interpretation Comme nts ANTI-NUCLEAR ANTIBODIES (baljinder t code = 3506) NEGATIVE RENEE PATTERN (REPORTED TITER) (test code = 42872) SEE BELOW HOMOGENEOUS (test code = 41621) NEGATIVE TITER SPECKLED (test code = 366912) NEGATIVE TITER DENSE FINE SPECKLED (test co de = 33422) NEGATIVE TITER CENTROMERE (test code = 459807) NEGATIVE TITER COARSE SPECKLED (test code = 393105) NEGATIVE TITER DISCRETE NUCLEAR DOTS (test code = 028048) NEGATIVE TITER NUCLEOLAR (test code = 993556) NEGATIVE TITER NUCLEAR MEMBRANE (test code = 476275) NEGATIVE TITER CYTO. RETICULAR (TIANNA) (test code = 464239) NEGATIVE COMMENTS (test code = 423616) NONE METHOD (test code = 26527) (NOTE) Toney RennerAFP, TUMOR [id number] 00:06:26* Test Item Value Reference Range Interpretation Comme nts AFP, TUMOR MARKER (test code = 10294) 2.79 NG/ML <=8.30 AFP, TUMOR [id number] 00:00:00* Test Item Value Reference Range Interpretation Comme nts AFP, TUMOR MARKER (test code = 89924) 2.79 NG/ML Toney RennerAFP, TUMOR [id number] 00:00:00* Test Item Value Reference Range Interpretation Comme nts AFP, TUMOR MARKER (test code = 51630) 2.79 NG/ML Toney Cowan AustinAFP, TUMOR [id number] 00:00:00* Test Item Value Reference Range Interpretation Comme nts AFP, TUMOR MARKER (test code = 75375) 2.79 NG/ML Toney Cowan AustinAFP, TUMOR [id number] 00:00:00* Test Item Value Reference Range Interpretation Comme nts AFP, TUMOR MARKER (test code = 16655) 2.79 NG/ML Toney RennerAFP, TUMOR [id number] 00:00:00* Test Item Value Reference Range Interpretation Comme nts AFP, TUMOR MARKER (test code = 35166) 2.79 NG/ML Toney RennerAFP, TUMOR [id number] 00:00:00* Test Item Value Reference Range Interpretation Comme nts AFP, TUMOR MARKER (test code = 71030) 2.79 NG/ML Toney RennerAFP, TUMOR [id number] 00:00:00* Test Item Value Reference Range Interpretation Comme nts AFP, TUMOR MARKER (test code = 81580) 2.79 NG/ML Toney RennerAFP, TUMOR [id number] 00:00:00* Test Item Value Reference Range Interpretation Comme nts AFP, TUMOR MARKER (test code = 41459) 2.79 NG/ML Toney RennerHEPATIC FUNCTION [id number] 23:37:44* Test Item Value Reference Range Interpretation Comme nts PROTEIN, TOTAL (test code = 2229) 7.1 G/DL 6.1-8.3 ALBUMIN (test code = 220) 4.2 G/DL 3.5-5.2 BILIRUBIN, TOTAL (test code = 220) 0.6 MG/DL <=1.2 BILIRUBIN, DIRECT (test code = 2021) 0.1 MG/DL 0.0-0.3 ALKALINE PHOSPHATASE (test c ode = 2203) 85 U/L 40-142 AST (test code = 2218) 23 U/L 9-40 ALT (test code = 2219) 21 U/L 5-40 [id number] 23:37:44* Test Item Value Reference Range Interpretation Comme nts ALT (test code = 2219) 21 U/L 5-40 HEMOGLOBIN [id number] 02:59:32* Test Item Value Reference Range Interpretation Comme nts HEMOGLOBIN A1c (test code = 73841) 8.4 % 4.2-5.6 H [employer] GUIDELINES FOR HGB A1C: [...] OR LABORATORY CONSULTATION. CBC W/AUTO DIFF WITH [id number] 01:35:10* Test Item Value Reference Range Interpretation [...] 0.00-0.10 ABS NUCLEATED RBCS (test code = 53941) 0.00 K/UL 0.00-0.11 LIVER (HEPATIC) FUNCTION [id number] 00:00:00* Test Item Value Reference Range Interpretation [...] = 2219) 21 U/L Toney RennerCBC W/AUTO [id number] 00:00:00* Test Item Value Reference Range Interpretation [...] ABS NUCLEATED RBCS (test cod e = 49137) 0.00 K/UL Toney RennerHEMOGLOBIN [id number] 00:00:00* Test Item Value Reference Range Interpretation Comme katty HEMOGLOBIN A1c (test code = 14471) 8.4 % Toney RennerLIVER (HEPATIC) FUNCTION [id number] 00:00:00* Test Item Value Reference Range Interpretation [...] = 2219) 21 U/L Toney RennerCBC W/AUTO [id number] 00:00:00* Test Item Value Reference Range Interpretation [...] ABS NUCLEATED RBCS (test cod e = 12608) 0.00 K/UL Toney RennerHEMOGLOBIN [id number] 00:00:00* Test Item Value Reference Range Interpretation Comme nts HEMOGLOBIN A1c (test code = 24327) 8.4 % Toney RennerLIVER (HEPATIC) FUNCTION [id number] 00:00:00* Test Item Value Reference Range Interpretation [...] = 2219) 21 U/L Toney RennerCBC W/AUTO [id number] 00:00:00* Test Item Value Reference Range Interpretation [...] ABS NUCLEATED RBCS (test cod e = 62544) 0.00 K/UL Toney RennerHEMOGLOBIN [id number] 00:00:00* Test Item Value Reference Range Interpretation Comme nts HEMOGLOBIN A1c (test code = 03794) 8.4 % Toney Cowan ZurdoLIVER (HEPATIC) FUNCTION [id number] 00:00:00* Test Item Value Reference Range Interpretation [...] 2219) 21 U/L Toney Cowan ZurdoCBC W/AUTO [id number] 00:00:00* Test Item Value Reference Range Interpretation [...] ABS NUCLEATED RBCS (test cod e = 67824) 0.00 K/UL Toney Cowan ZurdoHEMOGLOBIN [id number] 00:00:00* Test Item Value Reference Range Interpretation Comme nts HEMOGLOBIN A1c (test code = 29586) 8.4 % Toney Cowan ZurdoLIVER (HEPATIC) FUNCTION [id number] 00:00:00* Test Item Value Reference Range Interpretation [...] 2219) 21 U/L Toney Cowan ZurdoCBC W/AUTO [id number] 00:00:00* Test Item Value Reference Range Interpretation [...] ABS NUCLEATED RBCS (test cod e = 61902) 0.00 K/UL Toney RennerHEMOGLOBIN [id number] 00:00:00* Test Item Value Reference Range Interpretation Comme nts HEMOGLOBIN A1c (test code = 03967) 8.4 % Toney RennerLIVER (HEPATIC) FUNCTION [id number] 00:00:00* Test Item Value Reference Range Interpretation Comme nts PROTEIN, TOTAL (test code = 2229) 7.1 G/DL ALBUMIN (test code = 2201) 4.2 G/DL BILIRUBIN, TOTAL (test code = 2207) 0.6 MG/DL BILIRUBIN, DIRECT (test code = 2021) 0.1 MG/DL ALKALINE PHOSPHATASE (test c ode = 2204) 85 U/L AST (test code = 2218) 23 U/L ALT (test code = 2219) 21 U/L oTney RennerSGPT ([id number] 00:00:00* Test Item Value Reference Range Interpretation Comme nts ALT (test code = 2219) 21 U/L Toney RennerCBC W/AUTO [id number] 00:00:00* Test Item Value Reference Range Interpretation [...] ABS NUCLEATED RBCS (test cod e = 77429) 0.00 K/UL Toney RennerHEMOGLOBIN [id number] 00:00:00* Test Item Value Reference Range Interpretation Comme nts HEMOGLOBIN A1c (test code = 71532) 8.4 % Toney RennerLIVER (HEPATIC) FUNCTION [id number] 00:00:00* Test Item Value Reference Range Interpretation [...] = 2219) 21 U/L Toney RennerCBC W/AUTO [id number] 00:00:00* Test Item Value Reference Range Interpretation [...] ABS NUCLEATED RBCS (test cod e = 39657) 0.00 K/UL Toney RennerHEMOGLOBIN [id number] 00:00:00* Test Item Value Reference Range Interpretation Comme nts HEMOGLOBIN A1c (test code = 91028) 8.4 % Toney RennerLIVER (HEPATIC) FUNCTION [id number] 00:00:00* Test Item Value Reference Range Interpretation [...] = 2219) 21 U/L Toney RennerCBC W/AUTO [id number] 00:00:00* Test Item Value Reference Range Interpretation [...] ABS NUCLEATED RBCS (test cod e = 00838) 0.00 K/UL Toney RennerHEMOGLOBIN [id number] 00:00:00* Test Item Value Reference Range Interpretation Comme nts HEMOGLOBIN A1c (test code = 10938) 8.4 % Toney RennerLIPID [id number] 00:00:00* Test Item Value Reference Range Interpretation Comme nts CHOLESTEROL (test code = 2210) 143 MG/DL TRIGLYCERIDES (test code = 2232) 114 MG/DL HDL CHOLESTEROL (test code = 2220) 46 MG/DL CALC LDL CHOL (test code = 2237) 77 MG/DL RISK RATIO LDL/HDL (test cod e = 2238) 1.67 RATIO Toney RennerCOMPREHENSIVE METABOLIC [id number] 00:00:00* Test Item Value Reference Range Interpretation Comme nts GLUCOSE (test code = 2217) 154 MG/DL BUN (test code = 2208) 15 MG/DL CREATININE (test code = 2214) 0.55 MG/DL eGFR (2020 CKD-EPI) (test co de = 35443) 97 ML/MIN/1.73 CALC BUN/CREAT (test code = [...] (test code = 2219) 26 U/L Toney RennerLIPID [id number] 00:00:00* Test Item Value Reference Range Interpretation Comme nts CHOLESTEROL (test code = 2210) 143 MG/DL TRIGLYCERIDES (test code = 2232) 114 MG/DL HDL CHOLESTEROL (test code = 2220) 46 MG/DL CALC LDL CHOL (test code = 2237) 77 MG/DL RISK RATIO LDL/HDL (test cod e = 2238) 1.67 RATIO Toney RennerCOMPREHENSIVE METABOLIC [id number] 00:00:00* Test Item Value Reference Range Interpretation Comme nts GLUCOSE (test code = 2217) 154 MG/DL BUN (test code = 2208) 15 MG/DL CREATININE (test code = 2214) 0.55 MG/DL eGFR (2020 CKD-EPI) (test co de = 42372) 97 ML/MIN/1.73 CALC BUN/CREAT (test code = [...] = 2219) 26 U/L Toney Cowan AustinLIPID [id number] 00:00:00* Test Item Value Reference Range Interpretation Comme nts CHOLESTEROL (test code = 2210) 143 MG/DL TRIGLYCERIDES (test code = 2232) 114 MG/DL HDL CHOLESTEROL (test code = 2220) 46 MG/DL CALC LDL CHOL (test code = 2237) 77 MG/DL RISK RATIO LDL/HDL (test cod e = 2238) 1.67 RATIO Toney RennerCOMPREHENSIVE METABOLIC [id number] 00:00:00* Test Item Value Reference Range Interpretation Comme nts GLUCOSE (test code = 2217) 154 MG/DL BUN (test code = 2208) 15 MG/DL CREATININE (test code = 2214) 0.55 MG/DL eGFR (2020 CKD-EPI) (test co de = 73979) 97 ML/MIN/1.73 CALC BUN/CREAT (test code = [...] code = 2219) 26 U/L Toney Camryn SpringerLIPID [id number] 00:00:00* Test Item Value Reference Range Interpretation Comme nts CHOLESTEROL (test code = 2210) 143 MG/DL TRIGLYCERIDES (test code = 2232) 114 MG/DL HDL CHOLESTEROL (test code = 2220) 46 MG/DL CALC LDL CHOL (test code = 2237) 77 MG/DL RISK RATIO LDL/HDL (test cod e = 2238) 1.67 RATIO Toney Cowan ZurdoCOMPREHENSIVE METABOLIC [id number] 00:00:00* Test Item Value Reference Range Interpretation Comme nts GLUCOSE (test code = 2217) 154 MG/DL BUN (test code = 2208) 15 MG/DL CREATININE (test code = 2214) 0.55 MG/DL eGFR (2020 CKD-EPI) (test co de = 90320) 97 ML/MIN/1.73 CALC BUN/CREAT (test code = [...] (test code = 2219) 26 U/L Toney RennerLIPID [id number] 00:00:00* Test Item Value Reference Range Interpretation Comme nts CHOLESTEROL (test code = 2210) 143 MG/DL TRIGLYCERIDES (test code = 2232) 114 MG/DL HDL CHOLESTEROL (test code = 2220) 46 MG/DL CALC LDL CHOL (test code = 2237) 77 MG/DL RISK RATIO LDL/HDL (test cod e = 2238) 1.67 RATIO Toney RennerCOMPREHENSIVE METABOLIC [id number] 00:00:00* Test Item Value Reference Range Interpretation Comme nts GLUCOSE (test code = 2217) 154 MG/DL BUN (test code = 2208) 15 MG/DL CREATININE (test code = 2214) 0.55 MG/DL eGFR (2020 CKD-EPI) (test co de = 12006) 97 ML/MIN/1.73 CALC BUN/CREAT (test code = [...] (test code = 2219) 26 U/L Toney RennerLIPID [id number] 00:00:00* Test Item Value Reference Range Interpretation Comme nts CHOLESTEROL (test code = 2210) 143 MG/DL TRIGLYCERIDES (test code = 2232) 114 MG/DL HDL CHOLESTEROL (test code = 2220) 46 MG/DL CALC LDL CHOL (test code = 2237) 77 MG/DL RISK RATIO LDL/HDL (test cod e = 2238) 1.67 RATIO Toney RennerCOMPREHENSIVE METABOLIC [id number] 00:00:00* Test Item Value Reference Range Interpretation Comme nts GLUCOSE (test code = 2217) 154 MG/DL BUN (test code = 2208) 15 MG/DL CREATININE (test code = 2214) 0.55 MG/DL eGFR (2020 CKD-EPI) (test co de = 09440) 97 ML/MIN/1.73 CALC BUN/CREAT (test code = [...] = 2219) 26 U/L Toney Cowan AustinLIPID [id number] 00:00:00* Test Item Value Reference Range Interpretation Comme nts CHOLESTEROL (test code = 2210) 143 MG/DL TRIGLYCERIDES (test code = 2232) 114 MG/DL HDL CHOLESTEROL (test code = 2220) 46 MG/DL CALC LDL CHOL (test code = 2237) 77 MG/DL RISK RATIO LDL/HDL (test cod e = 2238) 1.67 RATIO Toney RennerCOMPREHENSIVE METABOLIC [id number] 00:00:00* Test Item Value Reference Range Interpretation Comme nts GLUCOSE (test code = 2217) 154 MG/DL BUN (test code = 2208) 15 MG/DL CREATININE (test code = 2214) 0.55 MG/DL eGFR (2020 CKD-EPI) (test co de = 18038) 97 ML/MIN/1.73 CALC BUN/CREAT (test code = [...] code = 2219) 26 U/L Toney Camryn SpringerLIPID [id number] 00:00:00* Test Item Value Reference Range Interpretation Comme nts CHOLESTEROL (test code = 2210) 143 MG/DL TRIGLYCERIDES (test code = 2232) 114 MG/DL HDL CHOLESTEROL (test code = 2220) 46 MG/DL CALC LDL CHOL (test code = 2237) 77 MG/DL RISK RATIO LDL/HDL (test cod e = 2238) 1.67 RATIO Toney Cowan ZurdoCOMPREHENSIVE METABOLIC [id number] 00:00:00* Test Item Value Reference Range Interpretation Comme nts GLUCOSE (test code = 2217) 154 MG/DL BUN (test code = 2208) 15 MG/DL CREATININE (test code = 2214) 0.55 MG/DL eGFR (2020 CKD-EPI) (test co de = 64889) 97 ML/MIN/1.73 CALC BUN/CREAT (test code = [...] code = 2219) 26 U/L Toney RennerHEMOGLOBIN [id number] 00:00:00* Test Item Value Reference Range Interpretation Comme nts HEMOGLOBIN A1c (test code = 69661) 8.6 % Toney Cowan AustinHEMOGLOBIN [id number] 00:00:00* Test Item Value Reference Range Interpretation Comme nts HEMOGLOBIN A1c (test code = 06988) 8.6 % Toney Cowan AustinHEMOGLOBIN [id number] 00:00:00* Test Item Value Reference Range Interpretation Comme nts HEMOGLOBIN A1c (test code = 38328) 8.6 % Toney Cowan AustinHEMOGLOBIN [id number] 00:00:00* Test Item Value Reference Range Interpretation Comme nts HEMOGLOBIN A1c (test code = 44005) 8.6 % Toney Cowan AustinHEMOGLOBIN [id number] 00:00:00* Test Item Value Reference Range Interpretation Comme nts HEMOGLOBIN A1c (test code = 57640) 8.6 % Toney Cowan AustinHEMOGLOBIN [id number] 00:00:00* Test Item Value Reference Range Interpretation Comme nts HEMOGLOBIN A1c (test code = 63097) 8.6 % Toney Cowan AustinHEMOGLOBIN [id number] 00:00:00* Test Item Value Reference Range Interpretation Comme nts HEMOGLOBIN A1c (test code = 04213) 8.6 % Toney Cowan AustinHEMOGLOBIN [id number] 00:00:00* Test Item Value Reference Range Interpretation Comme nts HEMOGLOBIN A1c (test code = 30470) 8.6 % Toney RennerJACE, [id number] 11:54:09SPECIMEN NUMBER: [id number] CULTURE, URINE SPECIMEN NUMBER: [id number] SPECIMEN COMMENT: URINE SOURCE: URINE REPORT STATUS: FINAL FINAL REPORT: 11/29/2023 <10,000 CFU/ML UROGENITAL WOLF PRESENT NO COMMON PATHOGENSCULTURE, [id number] 00:00:00* Test Item Value Reference Range Interpretation Comme nts CULTURE, URINE (test code = 69951) SPECIMEN NUMBER: [id number] Toney Salinas [id number] 00:00:00* Test Item Value Reference Range Interpretation Comme nts CULTURE, URINE (test code = 84014) SPECIMEN NUMBER: [id number] Toney MarcusLTBG, [id number] 00:00:00* Test Item Value Reference Range Interpretation Comme nts CULTURE, URINE (test code = 46266) SPECIMEN NUMBER: [id number] Toney MarcusLTBG, [id number] 00:00:00* Test Item Value Reference Range Interpretation Comme nts CULTURE, URINE (test code = 16879) SPECIMEN NUMBER: [id number] Toney MarcusLTBG, [id number] 00:00:00* Test Item Value Reference Range Interpretation Comme nts CULTURE, URINE (test code = 89216) SPECIMEN NUMBER: [id number] Toney Salinas, [id number] 00:00:00* Test Item Value Reference Range Interpretation Comme nts CULTURE, URINE (test code = 14919) SPECIMEN NUMBER: [id number] Toney MarcusLTBG, [id number] 00:00:00* Test Item Value Reference Range Interpretation Comme nts CULTURE, URINE (test code = 73190) SPECIMEN NUMBER: [id number] Toney MarcusLTBG, [id number] 00:00:00* Test Item Value Reference Range Interpretation Comme nts CULTURE, URINE (test code = 70598) SPECIMEN NUMBER: [id number] Toney Salinas, [id number] 00:00:00* Test Item Value Reference Range Interpretation Comme nts CULTURE, URINE (test code = 86652) SPECIMEN NUMBER: [id number] Toney RennerCOMPREHENSIVE METABOLIC [id number] 05:44:49* Test Item Value Reference Range Interpretation Comme nts GLUCOSE (test code = 2216) 157 MG/DL 70-99 H BUN (test code = 2207) 14 MG/DL 8-23 CREATININE (test code = 2213) 0.51 MG/DL 0.60-1.30 L eGFR (2020 CKD-EPI) (test co de = 14364) 99 ML/MIN/1.73 >60 CALC BUN/CREAT (test code = 2234) 27 RATIO 6-28 SODIUM (test code = 2230) 143 MEQ/L 133-146 POTASSIUM (test code = 2227) 3.9 MEQ/L 3.5-5.4 CHLORIDE (test code = 2214) 104 MEQ/L 95-107 CARBON DIOXIDE (test code = 2205) 27 MEQ/L 19-31 CALCIUM (test code = 2208) 9.6 MG/DL 8.5-10.5 PROTEIN, TOTAL (test code = 2228) 7.7 G/DL 6.1-8.3 ALBUMIN (test code = 2200) 4.2 G/DL 3.5-5.2 CALC GLOBULIN (test code = 2239) 3.5 G/DL 1.9-3.7 CALC A/G RATIO (test code = 2233) 1.2 RATIO 1.0-2.6 BILIRUBIN, TOTAL (test code = 2206) 0.5 MG/DL <=1.2 ALKALINE PHOSPHATASE (test code = 2203) 93 U/L 40-142 AST (test code = 2218) 26 U/L 9-40 ALT (test code = 2219) 21 U/L 5-40 LIPID [id number] 05:44:49* Test Item Value Reference Range Interpretation [...] SPECIMENS. FOR MOREINFORMATION, SEE CLIENT ANNOUNCEMENT AT [email or web address] RISK RATIO LDL/HDL (test code = 2238) 1.87 RATIO <3.22 HEMOGLOBIN [id number] 03:44:18* Test Item Value Reference Range Interpretation Comme [facility] HEMOGLOBIN A1c (test code = 07945) 7.4 % 4.2-5.6 H [employer] GUIDELINES FOR HGB A1C: [...] INDICATED, ALL TESTING PERFORMED AT [facility] [employer] [address] [place] [address] [employer] CHAU[employer]EUR: LILA SHANNON M.D. CLIA NUMBER [id number] [place]. [id number] COMPREHENSIVE METABOLIC [id number] 00:00:00* Test Item Value Reference Range Interpretation Comme nts GLUCOSE (test code = 2217) 157 MG/DL BUN (test code = 2208) 14 MG/DL CREATININE (test code = 2214) 0.51 MG/DL eGFR (2020 CKD-EPI) (test co de = 03572) 99 ML/MIN/1.73 CALC BUN/CREAT (test code = [...] = 2219) 21 U/L Toney RennerCOMPREHENSIVE METABOLIC [id number] 00:00:00* Test Item Value Reference Range Interpretation Comme nts GLUCOSE (test code = 2217) 157 MG/DL BUN (test code = 2208) 14 MG/DL CREATININE (test code = 2214) 0.51 MG/DL eGFR (2020 CKD-EPI) (test co de = 25117) 99 ML/MIN/1.73 CALC BUN/CREAT (test code = [...] code = 2219) 21 U/L Toney RennerLIPID [id number] 00:00:00* Test Item Value Reference Range Interpretation Comme nts CHOLESTEROL (test code = 2210) 155 MG/DL TRIGLYCERIDES (test code = 2232) 103 MG/DL HDL CHOLESTEROL (test code = 2220) 47 MG/DL CALC LDL CHOL (test code = 2237) 88 MG/DL RISK RATIO LDL/HDL (test cod e = 2238) 1.87 RATIO Toney RennerHEMOGLOBIN [id number] 00:00:00* Test Item Value Reference Range Interpretation Comme nts HEMOGLOBIN A1c (test code = 48922) 7.4 % Toney RennerCOMPREHENSIVE METABOLIC [id number] 00:00:00* Test Item Value Reference Range Interpretation Comme nts GLUCOSE (test code = 2217) 157 MG/DL BUN (test code = 2208) 14 MG/DL CREATININE (test code = 2214) 0.51 MG/DL eGFR (2020 CKD-EPI) (test co de = 14932) 99 ML/MIN/1.73 CALC BUN/CREAT (test code = [...] code = 2219) 21 U/L Toney RennerLIPID [id number] 00:00:00* Test Item Value Reference Range Interpretation Comme nts CHOLESTEROL (test code = 2210) 155 MG/DL TRIGLYCERIDES (test code = 2232) 103 MG/DL HDL CHOLESTEROL (test code = 2220) 47 MG/DL CALC LDL CHOL (test code = 2237) 88 MG/DL RISK RATIO LDL/HDL (test cod e = 2238) 1.87 RATIO Toney RennerHEMOGLOBIN [id number] 00:00:00* Test Item Value Reference Range Interpretation Comme nts HEMOGLOBIN A1c (test code = 82136) 7.4 % Toney RennerCOMPREHENSIVE METABOLIC [id number] 00:00:00* Test Item Value Reference Range Interpretation Comme nts GLUCOSE (test code = 2217) 157 MG/DL BUN (test code = 2208) 14 MG/DL CREATININE (test code = 2214) 0.51 MG/DL eGFR (2020 CKD-EPI) (test co de = 44134) 99 ML/MIN/1.73 CALC BUN/CREAT (test code = [...] = 2219) 21 U/L Toney Cowan AustinLIPID [id number] 00:00:00* Test Item Value Reference Range Interpretation Comme nts CHOLESTEROL (test code = 2210) 155 MG/DL TRIGLYCERIDES (test code = 2232) 103 MG/DL HDL CHOLESTEROL (test code = 2220) 47 MG/DL CALC LDL CHOL (test code = 2237) 88 MG/DL RISK RATIO LDL/HDL (test cod e = 2238) 1.87 RATIO Toney Cowan [place] [id number] 00:00:00* Test Item Value Reference Range Interpretation Comme nts CHOLESTEROL (test code = 2210) 155 MG/DL TRIGLYCERIDES (test code = 2232) 103 MG/DL HDL CHOLESTEROL (test code = 2220) 47 MG/DL CALC LDL CHOL (test code = 2237) 88 MG/DL RISK RATIO LDL/HDL (test cod e = 2238) 1.87 RATIO Toney Cowan [place] [id number] 00:00:00* Test Item Value Reference Range Interpretation Comme nts HEMOGLOBIN A1c (test code = 10378) 7.4 % Toney Cowan [place]HEMOGLOBIN [id number] 00:00:00* Test Item Value Reference Range Interpretation Comme nts HEMOGLOBIN A1c (test code = 43562) 7.4 % Toney Cowan AustinCOMPREHENSIVE METABOLIC [id number] 00:00:00* Test Item Value Reference Range Interpretation Comme nts GLUCOSE (test code = 2217) 157 MG/DL BUN (test code = 2208) 14 MG/DL CREATININE (test code = 2214) 0.51 MG/DL eGFR (2020 CKD-EPI) (test co de = 79211) 99 ML/MIN/1.73 CALC BUN/CREAT (test code = [...] code = 2219) 21 U/L Toney RennerLIPID [id number] 00:00:00* Test Item Value Reference Range Interpretation Comme nts CHOLESTEROL (test code = 2210) 155 MG/DL TRIGLYCERIDES (test code = 2232) 103 MG/DL HDL CHOLESTEROL (test code = 2220) 47 MG/DL CALC LDL CHOL (test code = 2237) 88 MG/DL RISK RATIO LDL/HDL (test cod e = 2238) 1.87 RATIO Toney RennerHEMOGLOBIN [id number] 00:00:00* Test Item Value Reference Range Interpretation Comme katty HEMOGLOBIN A1c (test code = 86324) 7.4 % Toney RennerCOMPREHENSIVE METABOLIC [id number] 00:00:00* Test Item Value Reference Range Interpretation Comme nts GLUCOSE (test code = 2217) 157 MG/DL BUN (test code = 2208) 14 MG/DL CREATININE (test code = 2214) 0.51 MG/DL eGFR (2020 CKD-EPI) (test co de = 65865) 99 ML/MIN/1.73 CALC BUN/CREAT (test code = [...] code = 2219) 21 U/L Toney RennerLIPID [id number] 00:00:00* Test Item Value Reference Range Interpretation Comme nts CHOLESTEROL (test code = 2210) 155 MG/DL TRIGLYCERIDES (test code = 2232) 103 MG/DL HDL CHOLESTEROL (test code = 2220) 47 MG/DL CALC LDL CHOL (test code = 2237) 88 MG/DL RISK RATIO LDL/HDL (test cod e = 2238) 1.87 RATIO Toney RennerHEMOGLOBIN [id number] 00:00:00* Test Item Value Reference Range Interpretation Comme nts HEMOGLOBIN A1c (test code = 00474) 7.4 % Toney RennerCOMPREHENSIVE METABOLIC [id number] 00:00:00* Test Item Value Reference Range Interpretation Comme nts GLUCOSE (test code = 2217) 157 MG/DL BUN (test code = 2208) 14 MG/DL CREATININE (test code = 2214) 0.51 MG/DL eGFR (2020 CKD-EPI) (test co de = 48982) 99 ML/MIN/1.73 CALC BUN/CREAT (test code = [...] code = 2219) 21 U/L Toney RennerLIPID [id number] 00:00:00* Test Item Value Reference Range Interpretation Comme nts CHOLESTEROL (test code = 2210) 155 MG/DL TRIGLYCERIDES (test code = 2232) 103 MG/DL HDL CHOLESTEROL (test code = 2220) 47 MG/DL CALC LDL CHOL (test code = 2237) 88 MG/DL RISK RATIO LDL/HDL (test cod e = 2238) 1.87 RATIO Toney RennerHEMOGLOBIN [id number] 00:00:00* Test Item Value Reference Range Interpretation Comme nts HEMOGLOBIN A1c (test code = 47566) 7.4 % Toney RennerCOMPREHENSIVE METABOLIC [id number] 00:00:00* Test Item Value Reference Range Interpretation Comme nts GLUCOSE (test code = 2217) 157 MG/DL BUN (test code = 2208) 14 MG/DL CREATININE (test code = 2214) 0.51 MG/DL eGFR (2020 CKD-EPI) (test co de = 94627) 99 ML/MIN/1.73 CALC BUN/CREAT (test code = [...] code = 2219) 21 U/L Toney RennerLIPID [id number] 00:00:00* Test Item Value Reference Range Interpretation Comme nts CHOLESTEROL (test code = 2210) 155 MG/DL TRIGLYCERIDES (test code = 2232) 103 MG/DL HDL CHOLESTEROL (test code = 2220) 47 MG/DL CALC LDL CHOL (test code = 2237) 88 MG/DL RISK RATIO LDL/HDL (test cod e = 2238) 1.87 RATIO Toney RennerHEMOGLOBIN [id number] 00:00:00* Test Item Value Reference Range Interpretation Comme nts HEMOGLOBIN A1c (test code = 36482) 7.4 % Toney RennerCOMPREHENSIVE METABOLIC [id number] 00:00:00* Test Item Value Reference Range Interpretation Comme nts GLUCOSE (test code = 2217) 157 MG/DL BUN (test code = 2208) 14 MG/DL CREATININE (test code = 2214) 0.51 MG/DL eGFR (2020 CKD-EPI) (test co de = 51327) 99 ML/MIN/1.73 CALC BUN/CREAT (test code = [...] = 2219) 21 U/L Toney Cowan AustinLIPID [id number] 00:00:00* Test Item Value Reference Range Interpretation Comme nts CHOLESTEROL (test code = 2210) 155 MG/DL TRIGLYCERIDES (test code = 2232) 103 MG/DL HDL CHOLESTEROL (test code = 2220) 47 MG/DL CALC LDL CHOL (test code = 2237) 88 MG/DL RISK RATIO LDL/HDL (test cod e = 2238) 1.87 RATIO Toney RennerHEMOGLOBIN [id number] 00:00:00* Test Item Value Reference Range Interpretation Comme nts HEMOGLOBIN A1c (test code = 02542) 7.4 % Toney Cowan SpringerHEPATIC FUNCTION [id number] 06:18:49* Test Item Value Reference Range Interpretation Comme nts PROTEIN, TOTAL (test code = 2229) 7.7 G/DL 6.1-8.3 ALBUMIN (test code = 2201) 4.6 G/DL 3.5-5.2 BILIRUBIN, TOTAL (test code = 2206) 0.5 MG/DL <=1.2 BILIRUBIN, DIRECT (test code = 2021) 0.2 MG/DL 0.0-0.3 ALKALINE PHOSPHATASE (test c ode = 2203) 78 U/L 40-142 AST (test code = 8) 32 U/L 9-40 ALT (test code = 2219) 27 U/L 5-40 AFP, TUMOR [id number] 06:17:42* Test Item Value Reference Range Interpretation Comme nts AFP, TUMOR MARKER (test code = 19158) 3.04 NG/ML <=8.30 UNLESS OTHERWISE INDICATED, ALL TESTING PERFORMED AT [facility] [address] [place] [address] MOTOR COACH CHAUFFEUR: LILA SHANNON M.D. CLIA NUMBER [id number] [facility] [place] [place]. [id number] HEPATITIS B CORE [id number] 04:33:04* Test Item Value Reference Range Interpretation Comme [facility] HEPATITIS B CORE IgM (test c ode = 4644) NON-REACTIVE NON-REACTIVE HEPATITIS C [id number] 04:33:04* Test Item Value Reference Range Interpretation Comme nts HEPATITIS C ANTIBODY (test c ode = 4675) NON-REACTIVE NON-REACTIVE HEPATITIS B SURFACE [id number] 04:33:04* Test Item Value Reference Range Interpretation Comme nts HEPATITIS B SURFACE AB (test code = 2737) REACTIVE NON-REACTIVE A LIVER (HEPATIC) FUNCTION [id number] 00:00:00* Test Item Value Reference Range Interpretation [...] (test code = 2219) 27 U/L Toney WilsonTIS B CORE [id number] 00:00:00* Test Item Value Reference Range Interpretation Comme nts HEPATITIS B CORE IgM (test c ode = 4644) NON-REACTIVE Toney RennerLIVER (HEPATIC) FUNCTION [id number] 00:00:00* Test Item Value Reference Range Interpretation [...] (test code = 2219) 27 U/L Toney WilsonTIS C [id number] 00:00:00* Test Item Value Reference Range Interpretation Comme katty HEPATITIS C ANTIBODY (test c ode = 4675) NON-REACTIVE Toney MarcanoPATITIS B SURFACE [id number] 00:00:00* Test Item Value Reference Range Interpretation Comme katty HEPATITIS B SURFACE AB (test code = 2737) REACTIVE Toney RennerAFP, TUMOR [id number] 00:00:00* Test Item Value Reference Range Interpretation Comme katty AFP, TUMOR MARKER (test code = 14416) 3.04 NG/ML Toney RennerLIVER (HEPATIC) FUNCTION [id number] 00:00:00* Test Item Value Reference Range Interpretation [...] 2219) 27 U/L Toney MarcanoPATITIS B CORE [id number] 00:00:00* Test Item Value Reference Range Interpretation Comme nts HEPATITIS B CORE IgM (test c ode = 4644) NON-REACTIVE Toney Cowan AustinHEPATITIS B CORE [id number] 00:00:00* Test Item Value Reference Range Interpretation Comme nts HEPATITIS B CORE IgM (test c ode = 4644) NON-REACTIVE Toney Cowan AustinHEPATITIS C [id number] 00:00:00* Test Item Value Reference Range Interpretation Comme nts HEPATITIS C ANTIBODY (test c ode = 4675) NON-REACTIVE Toney Cowan AustinHEPATITIS B SURFACE [id number] 00:00:00* Test Item Value Reference Range Interpretation Comme nts HEPATITIS B SURFACE AB (test code = 2737) REACTIVE Toney Cowan AustinAFP, TUMOR [id number] 00:00:00* Test Item Value Reference Range Interpretation Comme nts AFP, TUMOR MARKER (test code = 75092) 3.04 NG/ML Toney Cowan ZurdoLIVER (HEPATIC) FUNCTION [id number] 00:00:00* Test Item Value Reference Range Interpretation [...] 2219) 27 U/L Toney RennerHEPATITIS B CORE [id number] 00:00:00* Test Item Value Reference Range Interpretation Comme nts HEPATITIS B CORE IgM (test c ode = 4644) NON-REACTIVE Toney Cowan AustinHEPATITIS C [id number] 00:00:00* Test Item Value Reference Range Interpretation Comme nts HEPATITIS C ANTIBODY (test c ode = 4675) NON-REACTIVE Toney Cowan AustinHEPATITIS B SURFACE [id number] 00:00:00* Test Item Value Reference Range Interpretation Comme nts HEPATITIS B SURFACE AB (test code = 2737) REACTIVE Toney Cowan AustinAFP, TUMOR [id number] 00:00:00* Test Item Value Reference Range Interpretation Comme nts AFP, TUMOR MARKER (test code = 25966) 3.04 NG/ML Toney Cowan AustinHEPATITIS C [id number] 00:00:00* Test Item Value Reference Range Interpretation Comme nts HEPATITIS C ANTIBODY (test c ode = 4675) NON-REACTIVE Toney Cowan AustinHEPATITIS B SURFACE [id number] 00:00:00* Test Item Value Reference Range Interpretation Comme nts HEPATITIS B SURFACE AB (test code = 2737) REACTIVE Toney Cowan AustinAFP, TUMOR [id number] 00:00:00* Test Item Value Reference Range Interpretation Comme nts AFP, TUMOR MARKER (test code = 23127) 3.04 NG/ML Toney Cowan AustinLIVER (HEPATIC) FUNCTION [id number] 00:00:00* Test Item Value Reference Range Interpretation [...] 2219) 27 U/L Toney RennerHEPATITIS B CORE [id number] 00:00:00* Test Item Value Reference Range Interpretation Comme nts HEPATITIS B CORE IgM (test c ode = 4644) NON-REACTIVE Toney MarcanoPATITIS C [id number] 00:00:00* Test Item Value Reference Range Interpretation Comme nts HEPATITIS C ANTIBODY (test c ode = 4675) NON-REACTIVE Toney Cowan AustinHEPATITIS B SURFACE [id number] 00:00:00* Test Item Value Reference Range Interpretation Comme nts HEPATITIS B SURFACE AB (test code = 2737) REACTIVE Toney Cowan AustinAFP, TUMOR [id number] 00:00:00* Test Item Value Reference Range Interpretation Comme nts AFP, TUMOR MARKER (test code = 97973) 3.04 NG/ML Toney Cowan AustinLIVER (HEPATIC) FUNCTION [id number] 00:00:00* Test Item Value Reference Range Interpretation [...] 2219) 27 U/L Toney RennerHEPATITIS B CORE [id number] 00:00:00* Test Item Value Reference Range Interpretation Comme nts HEPATITIS B CORE IgM (test c ode = 4644) NON-REACTIVE Toney Cowan AustinHEPATITIS C [id number] 00:00:00* Test Item Value Reference Range Interpretation Comme nts HEPATITIS C ANTIBODY (test c ode = 4675) NON-REACTIVE Toney RennerHEPATITIS B SURFACE [id number] 00:00:00* Test Item Value Reference Range Interpretation Comme katty HEPATITIS B SURFACE AB (test code = 2737) REACTIVE Tonye RennerAFP, TUMOR [id number] 00:00:00* Test Item Value Reference Range Interpretation Comme nts AFP, TUMOR MARKER (test code = 38951) 3.04 NG/ML Toney RennerLIVER (HEPATIC) FUNCTION [id number] 00:00:00* Test Item Value Reference Range Interpretation [...] 27 U/L Toney Cowan AustinHEPATITIS B CORE [id number] 00:00:00* Test Item Value Reference Range Interpretation Comme nts HEPATITIS B CORE IgM (test c ode = 4644) NON-REACTIVE Toney Cowan AustinHEPATITIS C [id number] 00:00:00* Test Item Value Reference Range Interpretation Comme nts HEPATITIS C ANTIBODY (test c ode = 4675) NON-REACTIVE Toney Cowan AustinHEPATITIS B SURFACE [id number] 00:00:00* Test Item Value Reference Range Interpretation Comme nts HEPATITIS B SURFACE AB (test code = 2737) REACTIVE Toney Cowan AustinAFP, TUMOR [id number] 00:00:00* Test Item Value Reference Range Interpretation Comme nts AFP, TUMOR MARKER (test code = 55527) 3.04 NG/ML Toney Cowan AustinLIVER (HEPATIC) FUNCTION [id number] 00:00:00* Test Item Value Reference Range Interpretation [...] 27 U/L Toney Cowan AustinHEPATITIS B CORE [id number] 00:00:00* Test Item Value Reference Range Interpretation Comme nts HEPATITIS B CORE IgM (test c ode = 4644) NON-REACTIVE Toney RennerHEPATITIS C [id number] 00:00:00* Test Item Value Reference Range Interpretation Comme nts HEPATITIS C ANTIBODY (test c ode = 4675) NON-REACTIVE Toney Cowan AustinHEPATITIS B SURFACE [id number] 00:00:00* Test Item Value Reference Range Interpretation Comme nts HEPATITIS B SURFACE AB (test code = 2737) REACTIVE Toney Cowan AustinAFP, TUMOR [id number] 00:00:00* Test Item Value Reference Range Interpretation Comme nts AFP, TUMOR MARKER (test code = 57797) 3.04 NG/ML Toney Cowan AustinLIVER (HEPATIC) FUNCTION [id number] 00:00:00* Test Item Value Reference Range Interpretation [...] 2219) 27 U/L Toney MarcanoPATITIS B CORE [id number] 00:00:00* Test Item Value Reference Range Interpretation Comme nts HEPATITIS B CORE IgM (test c ode = 4644) NON-REACTIVE Toney RennerHEPATITIS C [id number] 00:00:00* Test Item Value Reference Range Interpretation Comme nts HEPATITIS C ANTIBODY (test c ode = 4675) NON-REACTIVE Toney Cowan AustinHEPATITIS B SURFACE [id number] 00:00:00* Test Item Value Reference Range Interpretation Comme nts HEPATITIS B SURFACE AB (test code = 2737) REACTIVE Toney RennerAFP, TUMOR [id number] 00:00:00* Test Item Value Reference Range Interpretation Comme katty AFP, TUMOR MARKER (test code = 31820) 3.04 NG/ML [facility]23-[facility]-05 13:54:20* Test Item Value Reference Range Interpretation Comme nts POCT GLU (test code = 5311911444) 153 mg/dL 70-110 H Lab Interpretation (test cod e = 69486-2) Abnormal [facility] GLUCOSE (AUTOMATED)2023-09-05 03:11:35* Test Item Value Reference Range Interpretation Comme nts POCT GLU (test code = 5723102351) 149 mg/dL 70-110 H Lab Interpretation (test cod e = 85494-4) Abnormal [facility] GLUCOSE (AUTOMATED)2023-09-04 22:35:44* Test Item Value Reference Range Interpretation Comme nts POCT GLU (test code = 5114242875) 137 mg/dL 70-110 H Lab Interpretation (test cod e = 49727-2) Abnormal [facility] GLUCOSE (AUTOMATED)2023-09-04 18:37:00* Test Item Value Reference Range Interpretation Comme nts POCT GLU (test code = 5706970207) 226 mg/dL 70-110 H Lab Interpretation (test cod e = 27092-8) Abnormal [facility] GLUCOSE (AUTOMATED)2023-09-04 13:38:01* Test Item Value Reference Range Interpretation Comme nts POCT GLU (test code = 6160981815) 130 mg/dL 70-110 H Lab Interpretation (test cod e = 58343-8) [facility] 02:32:39* Test Item Value Reference Range Interpretation Comme nts POCT GLU (test code = 1050589572) 111 mg/dL 70-110 H Lab Interpretation (test cod e = 07881-8) [facility] 22:49:16* Test Item Value Reference Range Interpretation Comme nts POCT GLU (test code = 8207304747) 117 mg/dL 70-110 H Lab Interpretation (test cod e = 79467-5) Abnormal [facility] GLUCOSE (AUTOMATED)2023-09-03 17:50:09* Test Item Value Reference Range Interpretation Comme nts POCT GLU (test code = 8191689367) 140 mg/dL 70-110 H Lab Interpretation (test cod e = 40286-7) Abnormal [facility] GLUCOSE (AUTOMATED)2023-09-03 13:55:34* Test Item Value Reference Range Interpretation Comme nts POCT GLU (test code = 9444550989) 155 mg/dL 70-110 H Lab Interpretation (test cod e = 50885-1) Abnormal [facility] GLUCOSE (AUTOMATED)2023-09-03 02:55:00* Test Item Value Reference Range Interpretation Comme nts POCT GLU (test code = 9215223845) 132 mg/dL 70-110 H Lab Interpretation (test cod e = 20972-1) Abnormal [facility] GLUCOSE (AUTOMATED)2023-09-02 22:07:26* Test Item Value Reference Range Interpretation Comme nts POCT GLU (test code = 1794820835) 155 mg/dL 70-110 H Lab Interpretation (test cod e = 91695-3) Abnormal [facility] GLUCOSE (AUTOMATED)2023-09-02 17:46:33* Test Item Value Reference Range Interpretation Comme nts POCT GLU (test code = 6392819417) 130 mg/dL 70-110 H Lab Interpretation (test cod e = 08401-6) [facility] 15:02:11* Test Item Value Reference Range Interpretation Comme nts POCT GLU (test code = 1365908168) 154 mg/dL 70-110 H Lab Interpretation (test cod e = 59539-5) [facility]normal [facility] KingwoodLavtic Acid Whole [id number] 01:40:13* Test Item Value Reference Range Interpretation Comme nts LACTIC ACID (test code = 8422409879) 1.86 mmol/L 0.50-2.20 Lab Interpretation (test cod e = 46021-0) Normal [facility]woodTROPONIN [id number] 23:16:55* Test Item Value Reference Range Interpretation Comme nts TROPONIN I (test code = 8532316008) 0.000 ng/mL <=0.034 FIOR (test code = [...] of biotin. Lab Interpretation (test code = 53847-1) Normal [facility]woodCOM. METABOLIC PANEL (38718)2023-09-01 23:05:35* Test Item Value Reference Range Interpretation Comme nts NA (test code = 3285877165) 139 mmol/L 135-145 K (test code = 4063029524) 3.5 mmol/L 3.5-5.0 CL (test code = 8438071000) 103 mmol/L 98-108 CO2 TOTAL (test code = 8055847356) 23 mmol/L 23-31 AGAP (test code = 9330911748) 13 2-16 BUN (test code = 2040473099) 11 mg/dL 7-23 GLUCOSE (test code = 4194622768) 134 mg/dL 70-110 H CREATININE (test code = 2466730749) 0.48 mg/dL 0.50-1.04 L TOTAL BILI (test code = 1453883599) 0.7 mg/dL 0.1-1.1 CALCIUM (test code = 6920475897) 9.3 mg/dL 8.6-10.6 T PROTEIN (test code = 2200717461) 8.8 g/dL 6.3-8.2 H ALBUMIN (test code = 3650481082) 4.4 g/dL 3.5-5.0 ALK PHOS (test code = 8551449197) 94 U/L 34-122 ALTv (test code = 1742-6) 30 U/L 5-35 AST(SGOT) (test code = 6977682825) 30 U/L 13-40 eGFR (test code = 27294-8) 100.8 mL/min/1.73m2 CKD-EPI eGFR (2020). Assuming creatinine has been stable day-to-day for at least three months, the eGFR indicates Category G1 (>= 90 mL/min/1.73 m2) Lab Interpretation (test code = 86232-7) [facility] WITH [id number] 22:53:32* Test Item Value Reference Range Interpretation [...] 33.4 g/dL 31.6-35.1 RDW-SD (test code = 47185-6) 43.8 fL 39.0-49.9 RDW-CV (test code = 788-0) 13.2 % 12.0-15.5 PLT (test code = 777-3) 213 See_Comment [Automated message] The system which generated this result transmitted reference range: 166 - 358 10*3/?L. The reference range was not used to interpret this result as normal/abnormal. MPV (test code = 00389-3) 11.7 fL 9.5-12.9 NRBC/100 WBC (test code = 6855036698) 0.0 See_Comment [Automated message] The system which generated this result transmitted reference range: 0.0 - 10.0 /100 WBCs. The reference range was not used to interpret this result as normal/abnormal. NRBC x10^3 (test code = 9780888287) See_Comment [Automated message] The system which generated this result transmitted reference range: 10*3/?L. The reference range was not used to interpret this result as normal/abnormal. GRAN MAT (NEUT) % (test code = 770-8) 75.2 % IMM GRAN % (test code = 5146086904) 0.40 % LYMPH % (test code = 736-9) 16.2 % MONO % (test code = 5905-5) 7.6 % EOS % (test code = 713-8) 0.3 % BASO % (test code = 706-2) 0.3 % GRAN MAT x10^3(ANC) (test code = 1208778890) 11.57 10*3/uL 1.88-7.09 H IMM GRAN x10^3 (test code = 4089889358) 0.06 10*3/uL 0.00-0.06 LYMPH x10^3 (test code = 731-0) 2.49 10*3/uL 1.32-3.29 MONO x10^3 (test code = 742-7) 1.16 10*3/uL 0.33-0.92 H EOS x10^3 (test code = 711-2) 0.04 10*3/uL 0.03-0.39 BASO x10^3 (test code = 704-7) 0.04 10*3/uL 0.01-0.07 Lab Interpretation (test code = 30138-2) Abnormal [facility] KingwoodLactic Acid Whole [id number] 22:38:11* Test Item Value Reference Range Interpretation Comme nts LACTIC ACID (test code = 7937545693) 2.36 mmol/L 0.50-2.20 H Lab Interpretation (test cod e = 02943-8) Abnormal [facility] KingwoodHEMOGLOBIN [id number] 02:23:49* Test Item Value Reference Range Interpretation Comme [facility] HEMOGLOBIN A1c (test code = 10205) 8.5 % 4.2-5.6 H [employer] GUIDELINES FOR HGB A1C: [...] TESTING PERFORMED AT [facility] [address] [place] [address] MOTOR COACH CHAUFFEUR: LILA SHANNON M.D. CLIA NUMBER [id number] [facility] [place]. [id number] HEMOGLOBIN [id number] 00:00:00* Test Item Value Reference Range Interpretation Comme [facility] HEMOGLOBIN A1c (test code = 01789) 8.5 % Toney AustinHEMOGLOBIN [id number] 00:00:00* Test Item Value Reference Range Interpretation Comme nts HEMOGLOBIN A1c (test code = 12258) 8.5 % Toney F AustinHEMOGLOBIN [id number] 00:00:00* Test Item Value Reference Range Interpretation Comme nts HEMOGLOBIN A1c (test code = 21340) 8.5 % Toney F AustinHEMOGLOBIN [id number] 00:00:00* Test Item Value Reference Range Interpretation Comme nts HEMOGLOBIN A1c (test code = 06994) 8.5 % Toney F AustinHEMOGLOBIN [id number] 00:00:00* Test Item Value Reference Range Interpretation Comme nts HEMOGLOBIN A1c (test code = 23326) 8.5 % Toney Cowan AustinHEMOGLOBIN [id number] 00:00:00* Test Item Value Reference Range Interpretation Comme nts HEMOGLOBIN A1c (test code = 40361) 8.5 % Toney Cowan AustinHEMOGLOBIN [id number] 00:00:00* Test Item Value Reference Range Interpretation Comme nts HEMOGLOBIN A1c (test code = 03819) 8.5 % Toney Cowan AustinHEMOGLOBIN [id number] 00:00:00* Test Item Value Reference Range Interpretation Comme nts HEMOGLOBIN A1c (test code = 97706) 8.5 % Toney Cowan AustinHEMOGLOBIN [id number] 00:00:00* Test Item Value Reference Range Interpretation Comme nts HEMOGLOBIN A1c (test code = 07104) 8.5 % Toney Cowan AustinTROPONIN [id number] 01:42:18* Test Item Value Reference Range Interpretation Comme nts TROPONIN I (test code = 4547010814) 0.003 ng/mL <=0.034 FIOR (test code = [...] of biotin. Lab Interpretation (test code = 13216-1) Normal [facility] KingwoodN-TERMINAL [id number] 01:39:57* Test Item Value Reference Range Interpretation Comme nts NT-proBNP (test code = 89243-4) 92 pg/mL <=125 Lab Interpretation (test cod e = 73237-4) Normal [facility]woodMAGNESIUM2023-08-07 01:25:59* Test Item Value Reference Range Interpretation Comme nts MAGNESIUM (test code = 8346543502) 1.9 mg/dL 1.7-2.4 Lab Interpretation (test cod e = 12217-7) Normal [facility]woodCOMP. METABOLIC PANEL (01544)2023-06-02 01:25:39* Test Item Value Reference Range Interpretation Comme nts NA (test code = 0764754660) 142 mmol/L 135-145 K (test code = 8238875251) 3.8 mmol/L 3.5-5.0 CL (test code = 9372440894) 102 mmol/L 98-108 CO2 TOTAL (test code = 8378882894) 30 mmol/L 23-31 AGAP (test code = 6357169872) 10 2-16 BUN (test code = 7132150356) 24 mg/dL 7-23 H GLUCOSE (test code = 2029649926) 219 mg/dL 70-110 H CREATININE (test code = 1916630922) 0.76 mg/dL 0.50-1.04 TOTAL BILI (test code = 4563566424) 0.4 mg/dL 0.1-1.1 CALCIUM (test code = 3157659906) 9.9 mg/dL 8.6-10.6 T PROTEIN (test code = 1108306283) 8.3 g/dL 6.3-8.2 H ALBUMIN (test code = 9224190167) 4.3 g/dL 3.5-5.0 ALK PHOS (test code = 9496284809) 103 U/L 34-122 ALTv (test code = 1742-6) 36 U/L 5-35 H AST(SGOT) (test code = 1444460068) 35 U/L 13-40 eGFR (test code = 6774164576) 75.0 mL/min/1.73m2 FIOR (test code = FIOR) [...] imaging tests). Lab Interpretation (test code = 56298-6) Abnormal [facility]woodLIPASE2023-08-07 01:25:39* Test Item Value Reference Range Interpretation Comme nts LIPASE (test code = 1746774432) 105 U/L 0-220 Lab Interpretation (test cod e = 67781-3) Normal [facility] WITH [id number] 00:51:14* Test Item Value Reference Range Interpretation Comme nts WBC (test code = 6690-2) 7.72 See_Comment [Automated [employer]] The system which generated this result transmitted reference range: 4.30 - 11.10 10*3/?L. The reference range was not used to interpret this result as normal/abnormal. RBC (test code = 789-8) 4.31 See_Comment [Automated [employer]] The system which generated this result transmitted [...] 33.5 g/dL 31.6-35.1 RDW-SD (test code = 16251-6) 46.0 fL 39.0-49.9 RDW-CV (test code = 788-0) 13.7 % 12.0-15.5 PLT (test code = 777-3) 221 See_Comment [Automated [employer]] The system which generated this result transmitted reference range: 166 - 358 10*3/?L. The reference range was not used to interpret this result as normal/abnormal. MPV (test code = 54888-9) 11.2 fL 9.5-12.9 NRBC/100 WBC (test code = 3579864711) 0.0 See_Comment [Automated [employer]] The system which generated this result transmitted reference range: 0.0 - 10.0 /100 WBCs. The reference range was not used to interpret this result as normal/abnormal. NRBC x10^3 (test code = 0117604472) See_Comment [Automated [employer]] The system which generated this result transmitted reference range: 10*3/?L. The reference range was not used to interpret this result as normal/abnormal. GRAN MAT (NEUT) % (test code = 770-8) 42.7 % IMM GRAN % (test code = 6341935255) 0.10 % LYMPH % (test code = 736-9) 43.4 % MONO % (test code = 5905-5) 9.5 % EOS % (test code = 713-8) 3.5 % BASO % (test code = 706-2) 0.8 % GRAN MAT x10^3(ANC) (test code = 7173039973) 3.30 10*3/uL 1.88-7.09 IMM GRAN x10^3 (test code = 6260101479) 0.00-0.06 LYMPH x10^3 (test code = 731-0) 3.35 10*3/uL 1.32-3.29 H MONO x10^3 (test code = 742-7) 0.73 10*3/uL 0.33-0.92 EOS x10^3 (test code = 711-2) 0.27 10*3/uL 0.03-0.39 BASO x10^3 (test code = 704-7) 0.06 10*3/uL 0.01-0.07 Lab Interpretation (test code = 19008-4) [facility] [id number] 04:42:59* Test Item Value Reference Range Interpretation Comme nts HEMOGLOBIN A1c (test code = 76544) 9.0 % 4.2-5.6 H [employer] GUIDELINES FOR HGB A1C: [...] TESTING PERFORMED AT [facility] [address] [place] [address] [employer] CHAUFFEUR: LILA SHANNON M.D. [facility] NUMBER [id number] [facility] [place]. [id number] CBC W/AUTO DIFF WITH [id number] 03:45:44* Test Item Value Reference Range Interpretation [...] = 1065) 0.0 /100 WBC'S See_Comment [Automated cooala - your brandsa ge] The system which generated this result [...] 0.00-0.10 ABS NUCLEATED RBCS (test code = 95744) 0.00 K/UL 0.00-0.11 COMPREHENSIVE METABOLIC [id number] 03:39:49* Test Item Value Reference Range Interpretation Comme nts GLUCOSE (test code = 2217) 211 MG/DL 70-99 H BUN (test code = 2207) 14 MG/DL 8-23 CREATININE (test code = 2214) 0.53 MG/DL 0.60-1.30 L eGFR (2020 CKD-EPI) (test code = 21540) 99 ML/MIN/1.73 >60 CALC BUN/CREAT (test code [...] = 2219) 44 U/L 5-40 H LIPID [id number] 03:39:49* Test Item Value Reference Range Interpretation [...] SPECIMENS. FOR MOREINFORMATION, SEE CLIENT ANNOUNCEMENT AT [email or web address] RISK RATIO LDL/HDL (test code = 2238) 2.69 RATIO <3.22 CBC W/AUTO [id number] 00:00:00* Test Item Value Reference Range Interpretation [...] ABS NUCLEATED RBCS (test cod e = 44718) 0.00 K/UL Toney Cowan ZurdoCOMPREHENSIVE METABOLIC [id number] 00:00:00* Test Item Value Reference Range Interpretation Comme nts GLUCOSE (test code = 2217) 211 MG/DL BUN (test code = 2208) 14 MG/DL CREATININE (test code = 2214) 0.53 MG/DL eGFR (2020 CKD-EPI) (test co de = 17425) 99 ML/MIN/1.73 CALC BUN/CREAT (test code = [...] (test code = 2219) 44 U/L Toney Cowan AustinLIPID [id number] 00:00:00* Test Item Value Reference Range Interpretation Comme nts CHOLESTEROL (test code = 2210) 192 MG/DL TRIGLYCERIDES (test code = 2232) 149 MG/DL HDL CHOLESTEROL (test code = 2220) 45 MG/DL CALC LDL CHOL (test code = 2237) 121 MG/DL RISK RATIO LDL/HDL (test cod e = 2238) 2.69 RATIO Toney RennerHEMOGLOBIN [id number] 00:00:00* Test Item Value Reference Range Interpretation Comme nts HEMOGLOBIN A1c (test code = 81532) 9.0 % Toney Cowan AustinCBC W/AUTO [id number] 00:00:00* Test Item Value Reference Range Interpretation [...] ABS NUCLEATED RBCS (test cod e = 42545) 0.00 K/UL Toney RennerCBC W/AUTO [id number] 00:00:00* Test Item Value Reference Range Interpretation [...] ABS NUCLEATED RBCS (test cod e = 92936) 0.00 K/UL Toney RennerCOMPREHENSIVE METABOLIC [id number] 00:00:00* Test Item Value Reference Range Interpretation Comme nts GLUCOSE (test code = 2217) 211 MG/DL BUN (test code = 2208) 14 MG/DL CREATININE (test code = 2214) 0.53 MG/DL eGFR (2020 CKD-EPI) (test co de = 36983) 99 ML/MIN/1.73 CALC BUN/CREAT (test code = [...] code = 2219) 44 U/L Toney RennerLIPID [id number] 00:00:00* Test Item Value Reference Range Interpretation Comme nts CHOLESTEROL (test code = 2210) 192 MG/DL TRIGLYCERIDES (test code = 2232) 149 MG/DL HDL CHOLESTEROL (test code = 2220) 45 MG/DL CALC LDL CHOL (test code = 2237) 121 MG/DL RISK RATIO LDL/HDL (test cod e = 2238) 2.69 RATIO Toney RennerHEMOGLOBIN [id number] 00:00:00* Test Item Value Reference Range Interpretation Comme nts HEMOGLOBIN A1c (test code = 97372) 9.0 % Toney RennerCBC W/AUTO [id number] 00:00:00* Test Item Value Reference Range Interpretation [...] ABS NUCLEATED RBCS (test cod e = 50057) 0.00 K/UL Toney RennerCOMPREHENSIVE METABOLIC [id number] 00:00:00* Test Item Value Reference Range Interpretation Comme nts GLUCOSE (test code = 2217) 211 MG/DL BUN (test code = 2208) 14 MG/DL CREATININE (test code = 2214) 0.53 MG/DL eGFR (2020 CKD-EPI) (test co de = 16956) 99 ML/MIN/1.73 CALC BUN/CREAT (test code = [...] code = 2219) 44 U/L Toney RennerLIPID [id number] 00:00:00* Test Item Value Reference Range Interpretation Comme nts CHOLESTEROL (test code = 2210) 192 MG/DL TRIGLYCERIDES (test code = 2232) 149 MG/DL HDL CHOLESTEROL (test code = 2220) 45 MG/DL CALC LDL CHOL (test code = 2237) 121 MG/DL RISK RATIO LDL/HDL (test cod e = 2238) 2.69 RATIO Toney RennerHEMOGLOBIN [id number] 00:00:00* Test Item Value Reference Range Interpretation Comme nts HEMOGLOBIN A1c (test code = 92717) 9.0 % Toney RennerCOMPREHENSIVE METABOLIC [id number] 00:00:00* Test Item Value Reference Range Interpretation Comme nts GLUCOSE (test code = 2217) 211 MG/DL BUN (test code = 2208) 14 MG/DL CREATININE (test code = 2214) 0.53 MG/DL eGFR (2020 CKD-EPI) (test co de = 50351) 99 ML/MIN/1.73 CALC BUN/CREAT (test code = [...] code = 2219) 44 U/L Toney RennerLIPID [id number] 00:00:00* Test Item Value Reference Range Interpretation Comme nts CHOLESTEROL (test code = 2210) 192 MG/DL TRIGLYCERIDES (test code = 2232) 149 MG/DL HDL CHOLESTEROL (test code = 2220) 45 MG/DL CALC LDL CHOL (test code = 2237) 121 MG/DL RISK RATIO LDL/HDL (test cod e = 2238) 2.69 RATIO Toney RennerHEMOGLOBIN [id number] 00:00:00* Test Item Value Reference Range Interpretation Comme nts HEMOGLOBIN A1c (test code = 88592) 9.0 % Toney Cowan uZrdoCBC W/AUTO [id number] 00:00:00* Test Item Value Reference Range Interpretation [...] ABS NUCLEATED RBCS (test cod e = 03528) 0.00 K/UL Toney RennerCOMPREHENSIVE METABOLIC [id number] 00:00:00* Test Item Value Reference Range Interpretation Comme nts GLUCOSE (test code = 2217) 211 MG/DL BUN (test code = 2208) 14 MG/DL CREATININE (test code = 2214) 0.53 MG/DL eGFR (2020 CKD-EPI) (test co de = 22657) 99 ML/MIN/1.73 CALC BUN/CREAT (test code = [...] code = 2219) 44 U/L Toney RennerLIPID [id number] 00:00:00* Test Item Value Reference Range Interpretation Comme nts CHOLESTEROL (test code = 2210) 192 MG/DL TRIGLYCERIDES (test code = 2232) 149 MG/DL HDL CHOLESTEROL (test code = 2220) 45 MG/DL CALC LDL CHOL (test code = 2237) 121 MG/DL RISK RATIO LDL/HDL (test cod e = 2238) 2.69 RATIO Toney RennerHEMOGLOBIN [id number] 00:00:00* Test Item Value Reference Range Interpretation Comme nts HEMOGLOBIN A1c (test code = 87812) 9.0 % Toney RennerCBC W/AUTO [id number] 00:00:00* Test Item Value Reference Range Interpretation [...] ABS NUCLEATED RBCS (test cod e = 87643) 0.00 K/UL Toney RennerCOMPREHENSIVE METABOLIC [id number] 00:00:00* Test Item Value Reference Range Interpretation Comme nts GLUCOSE (test code = 2217) 211 MG/DL BUN (test code = 2208) 14 MG/DL CREATININE (test code = 2214) 0.53 MG/DL eGFR (2020 CKD-EPI) (test co de = 07722) 99 ML/MIN/1.73 CALC BUN/CREAT (test code = [...] code = 2219) 44 U/L Toney RennerLIPID [id number] 00:00:00* Test Item Value Reference Range Interpretation Comme nts CHOLESTEROL (test code = 2210) 192 MG/DL TRIGLYCERIDES (test code = 2232) 149 MG/DL HDL CHOLESTEROL (test code = 2220) 45 MG/DL CALC LDL CHOL (test code = 2237) 121 MG/DL RISK RATIO LDL/HDL (test cod e = 2238) 2.69 RATIO Toney RennerHEMOGLOBIN [id number] 00:00:00* Test Item Value Reference Range Interpretation Comme nts HEMOGLOBIN A1c (test code = 60143) 9.0 % Toney Cowan ZurdoCBC W/AUTO [id number] 00:00:00* Test Item Value Reference Range Interpretation [...] ABS NUCLEATED RBCS (test cod e = 70145) 0.00 K/UL Toney F AustinCOMPREHENSIVE METABOLIC [id number] 00:00:00* Test Item Value Reference Range Interpretation Comme nts GLUCOSE (test code = 2217) 211 MG/DL BUN (test code = 2208) 14 MG/DL CREATININE (test code = 2214) 0.53 MG/DL eGFR (2020 CKD-EPI) (test co de = 18197) 99 ML/MIN/1.73 CALC BUN/CREAT (test code = [...] code = 2219) 44 U/L Toney RennerLIPID [id number] 00:00:00* Test Item Value Reference Range Interpretation Comme nts CHOLESTEROL (test code = 2210) 192 MG/DL TRIGLYCERIDES (test code = 2232) 149 MG/DL HDL CHOLESTEROL (test code = 2220) 45 MG/DL CALC LDL CHOL (test code = 2237) 121 MG/DL RISK RATIO LDL/HDL (test cod e = 2238) 2.69 RATIO Toney RennerHEMOGLOBIN [id number] 00:00:00* Test Item Value Reference Range Interpretation Comme nts HEMOGLOBIN A1c (test code = 01232) 9.0 % Toney RennerCBC W/AUTO [id number] 00:00:00* Test Item Value Reference Range Interpretation [...] ABS NUCLEATED RBCS (test cod e = 73994) 0.00 K/UL Toney RennerCOMPREHENSIVE METABOLIC [id number] 00:00:00* Test Item Value Reference Range Interpretation Comme nts GLUCOSE (test code = 2217) 211 MG/DL BUN (test code = 2208) 14 MG/DL CREATININE (test code = 2214) 0.53 MG/DL eGFR (2020 CKD-EPI) (test co de = 39314) 99 ML/MIN/1.73 CALC BUN/CREAT (test code = [...] (test code = 2219) 44 U/L Toney Cowan AustinLIPID [id number] 00:00:00* Test Item Value Reference Range Interpretation Comme nts CHOLESTEROL (test code = 2210) 192 MG/DL TRIGLYCERIDES (test code = 2232) 149 MG/DL HDL CHOLESTEROL (test code = 2220) 45 MG/DL CALC LDL CHOL (test code = 2237) 121 MG/DL RISK RATIO LDL/HDL (test cod e = 2238) 2.69 RATIO Toney RennerHEMOGLOBIN [id number] 00:00:00* Test Item Value Reference Range Interpretation Comme nts HEMOGLOBIN A1c (test code = 72063) 9.0 % Toney RennerCBC W/AUTO [id number] 00:00:00* Test Item Value Reference Range Interpretation [...] ABS NUCLEATED RBCS (test cod e = 80160) 0.00 K/UL Toney RennerCOMPREHENSIVE METABOLIC [id number] 00:00:00* Test Item Value Reference Range Interpretation Comme nts GLUCOSE (test code = 2217) 211 MG/DL BUN (test code = 2208) 14 MG/DL CREATININE (test code = 2214) 0.53 MG/DL eGFR (2020 CKD-EPI) (test co de = 32121) 99 ML/MIN/1.73 CALC BUN/CREAT (test code = [...] code = 2219) 44 U/L Toney RennerLIPID [id number] 00:00:00* Test Item Value Reference Range Interpretation Comme nts CHOLESTEROL (test code = 2210) 192 MG/DL TRIGLYCERIDES (test code = 2232) 149 MG/DL HDL CHOLESTEROL (test code = 2220) 45 MG/DL CALC LDL CHOL (test code = 2237) 121 MG/DL RISK RATIO LDL/HDL (test cod e = 2238) 2.69 RATIO Toney RennerHEMOGLOBIN [id number] 00:00:00* Test Item Value Reference Range Interpretation Comme katty HEMOGLOBIN A1c (test code = 15089) 9.0 % Toney RennerTROPONIN [id number] 04:38:13* Test Item Value Reference Range Interpretation Comme katty TROPONIN I (test code = 9996376367) 0.003 ng/mL <=0.034 FIOR (test code = [...] of biotin. Lab Interpretation (test code = 92415-9) [id number] 03:48:45* Test Item Value Reference Range Interpretation Comme nts NT-proBNP (test code = 6388207165) 111 pg/mL <=125 FIOR (test code = FIOR) Biotin has been reported to cause a negative bias, interpret results relative to patient's use of biotin. Lab Interpretation (test code = 46072-4) [facility] [id number] 01:33:33* Test Item Value Reference Range Interpretation Comme nts TROPONIN I (test code = 8010722883) 0.004 ng/mL <=0.034 FIOR (test code = [...] of biotin. Lab Interpretation (test code = 06485-6) [facility] (CREAT[facility] KIN[facility]) + [id number] 01:30:16* Test Item Value Reference Range Interpretation Comme nts CK (test code = 4005942517) 52 U/L 33-194 CK-MB (test code = 6246522003) 0.96 ng/mL <=3.50 CKMB INDEX (test code = 7573290533) 1.8 % 0.0-4.0 FIOR (test code = FIOR) Biotin has been reported to cause a negative bias, interpret results relative to patient's use of biotin. Lab Interpretation (test code = 74022-5) [facility] (35307[facility]-12 01:21:56* Test Item Value Reference Range Interpretation Comme nts NA (test code = 6473555601) 140 mmol/L 135-145 K (test code = 9330391072) 4.3 mmol/L 3.5-5.0 CL (test code = 0214832913) 104 mmol/L 98-108 CO2 TOTAL (test code = 0036817623) 26 mmol/L 23-31 AGAP (test code = 1970485070) 10 2-16 BUN (test code = 4044792026) 19 mg/dL 7-23 GLUCOSE (test code = 7858334847) 107 mg/dL 70-110 CREATININE (test code = 4013013307) 0.48 mg/dL 0.50-1.04 L TOTAL BILI (test code = 9790368757) 0.7 mg/dL 0.1-1.1 CALCIUM (test code = 3631832838) 9.6 mg/dL 8.6-10.6 T PROTEIN (test code = 4506320416) 7.7 g/dL 6.3-8.2 ALBUMIN (test code = 9038768625) 4.2 g/dL 3.5-5.0 ALK PHOS (test code = 2808828725) 75 U/L 34-122 ALTv (test code = 1742-6) 49 U/L 5-35 H AST(SGOT) (test code = 1376409211) 44 U/L 13-40 H eGFR (test code = 8092946301) 127.5 mL/min/1.73m2 FIOR (test code = FIOR) [...] imaging tests). Lab Interpretation (test code = 64256-4) [facility]normal [facility] 01:21:36* Test Item Value Reference Range Interpretation Comme nts LIPASE (test code = 5221522679) 114 U/L 0-220 Lab Interpretation (test cod e = 85320-5) [facility] [id number] 01:11:52* Test Item Value Reference Range Interpretation Comme nts WBC (test code = 6690-2) 8.90 See_Comment [[employer]] The system which generated this result transmitted reference range: 4.30 - 11.10 10*3/?L. The reference range was not used to interpret this result as normal/abnormal. RBC (test code = 789-8) 4.55 See_Comment [[employer]] The system which generated this result transmitted [...] 32.1 g/dL 31.6-35.1 RDW-SD (test code = 56159-7) 43.5 fL 39.0-49.9 RDW-CV (test code = 788-0) 13.3 % 12.0-15.5 PLT (test code = 777-3) 212 See_Comment [Automated messa ge] The system which generated this result transmitted reference range: 166 - 358 10*3/?L. The reference range was not used to interpret this result as normal/abnormal. MPV (test code = 21136-9) 11.4 fL 9.5-12.9 NRBC/100 WBC (test code = 2374909678) 0.0 See_Comment [Automated me ssage] The system which generated this result transmitted reference range: 0.0 - 10.0 /100 WBCs. The reference range was not used to interpret this result as normal/abnormal. NRBC x10^3 (test code = 8607515296) See_Comment [Automated messa ge] The system which generated this result transmitted reference range: 10*3/?L. The reference range was not used to interpret this result as normal/abnormal. GRAN MAT (NEUT) % (test code = 770-8) 45.6 % IMM GRAN % (test code = 4241980653) 0.40 % LYMPH % (test code = 736-9) 41.9 % MONO % (test code = 5905-5) 8.1 % EOS % (test code = 713-8) 3.6 % BASO % (test code = 706-2) 0.4 % GRAN MAT x10^3(ANC) (test code = 6869734982) 4.05 10*3/uL 1.88-7.09 IMM GRAN x10^3 (test code = 2086593695) 0.04 10*3/uL 0.00-0.06 LYMPH x10^3 (test code = 731-0) 3.73 10*3/uL 1.32-3.29 H MONO x10^3 (test code = 742-7) 0.72 10*3/uL 0.33-0.92 EOS x10^3 (test code = 711-2) 0.32 10*3/uL 0.03-0.39 BASO x10^3 (test code = 704-7) 0.04 10*3/uL 0.01-0.07 Lab Interpretation (test code = 63005-5) [facility]normal [facility] [id number] 21:58:23* Test Item Value Reference Range Interpretation Comme nts HEMOGLOBIN A1c (test code = 02897) 10.0 % 4.2-5.6 H [employer] GUIDELINES FOR HGB A1C: [...] CONSIDER ALTERNATE TESTING OR LABORATORY CONSULTATION. HEMOGLOBIN [id number] 00:00:00* Test Item Value Reference Range Interpretation Comme nts HEMOGLOBIN A1c (test code = 20342) 10.0 % Toney Cowan AustinHEMOGLOBIN [id number] 00:00:00* Test Item Value Reference Range Interpretation Comme nts HEMOGLOBIN A1c (test code = 15756) 10.0 % Toney Cowan AustinHEMOGLOBIN [id number] 00:00:00* Test Item Value Reference Range Interpretation Comme nts HEMOGLOBIN A1c (test code = 27002) 10.0 % Toney Cowan AustinHEMOGLOBIN [id number] 00:00:00* Test Item Value Reference Range Interpretation Comme nts HEMOGLOBIN A1c (test code = 19881) 10.0 % Toney Cowan AustinHEMOGLOBIN [id number] 00:00:00* Test Item Value Reference Range Interpretation Comme nts HEMOGLOBIN A1c (test code = 62886) 10.0 % Toney Cowan AustinHEMOGLOBIN [id number] 00:00:00* Test Item Value Reference Range Interpretation Comme nts HEMOGLOBIN A1c (test code = 16157) 10.0 % Toney Camryn AustinHEMOGLOBIN [id number] 00:00:00* Test Item Value Reference Range Interpretation Comme nts HEMOGLOBIN A1c (test code = 74600) 10.0 % Toney Camryn AustinHEMOGLOBIN [id number] 00:00:00* Test Item Value Reference Range Interpretation Comme nts HEMOGLOBIN A1c (test code = 93280) 10.0 % Toney Camryn AustinHEMOGLOBIN [id number] 00:00:00* Test Item Value Reference Range Interpretation Comme nts HEMOGLOBIN A1c (test code = 69071) 10.0 % Toney Cowan AustinLIPID [id number] 06:17:57* Test Item Value Reference Range Interpretation [...] SPECIMENS. FOR MOREINFORMATION, SEE CLIENT ANNOUNCEMENT AT [email or web address] RISK RATIO LDL/HDL (test code = 2238) 2.94 RATIO <3.22 COMPREHENSIVE METABOLIC [id number] 06:17:57* Test Item Value Reference Range Interpretation Comme nts GLUCOSE (test code = 2217) 195 MG/DL 70-99 H BUN (test code = 8) 12 MG/DL 8-23 CREATININE (test code = 2214) 0.52 MG/DL 0.60-1.30 L eGFR (2020 CKD-EPI) (test code = 90726) 99 ML/MIN/1.73 >60 CALC BUN/CREAT (test code = 2235) 23 RATIO 6-28 SODIUM (test code = 2231) 143 MEQ/L 133-146 POTASSIUM (test code = 2228) 4.3 MEQ/L 3.5-5.4 CHLORIDE (test code = 2215) 104 MEQ/L 95-107 CARBON DIOXIDE (test code = 2206) 26 MEQ/L 19-31 CALCIUM (test code = 2209) 10.1 MG/DL 8.5-10.5 PROTEIN, TOTAL (test code = 2229) 7.1 [...] (test code = 2219) 29 U/L 5-40 [facility] has impo rtant pathology staff changes effective 12/25/2022. New pathology staff will provide uninterrupted, excellent patient care and clinical consultation. See URL: [email or web address]. UNLESS OTHERWISE INDICATED, ALL TESTING PERFORMED AT [facility] [address] [place] [address] [employer] CH[employer]EUR: LILA SHANNON M.D. [place] NUMBER [id number] [facility] [place]. [id number] LIPID [id number] 00:00:00* Test Item Value Reference Range Interpretation Comme nts CHOLESTEROL (test code = 2210) 219 MG/DL TRIGLYCERIDES (test code = 2232) 137 MG/DL HDL CHOLESTEROL (test code = 2220) 49 MG/DL CALC LDL CHOL (test code = 2237) 144 MG/DL RISK RATIO LDL/HDL (test cod e = 2238) 2.94 RATIO Toney Cowan ZurdoCOMPREHENSIVE METABOLIC [id number] 00:00:00* Test Item Value Reference Range Interpretation Comme nts GLUCOSE (test code = 2217) 195 MG/DL BUN (test code = 2208) 12 MG/DL CREATININE (test code = 2214) 0.52 MG/DL eGFR (2020 CKD-EPI) (test co de = 41207) 99 ML/MIN/1.73 CALC BUN/CREAT (test code = [...] code = 2219) 29 U/L Toney RennerLIPID [id number] 00:00:00* Test Item Value Reference Range Interpretation Comme nts CHOLESTEROL (test code = 2210) 219 MG/DL TRIGLYCERIDES (test code = 2232) 137 MG/DL HDL CHOLESTEROL (test code = 2220) 49 MG/DL CALC LDL CHOL (test code = 2237) 144 MG/DL RISK RATIO LDL/HDL (test cod e = 2238) 2.94 RATIO Toney RennerCOMPREHENSIVE METABOLIC [id number] 00:00:00* Test Item Value Reference Range Interpretation Comme nts GLUCOSE (test code = 2217) 195 MG/DL BUN (test code = 2208) 12 MG/DL CREATININE (test code = 2214) 0.52 MG/DL eGFR (2020 CKD-EPI) (test co de = 48403) 99 ML/MIN/1.73 CALC BUN/CREAT (test code = [...] = 2219) 29 U/L Toney Cowan AustinLIPID [id number] 00:00:00* Test Item Value Reference Range Interpretation Comme nts CHOLESTEROL (test code = 2210) 219 MG/DL TRIGLYCERIDES (test code = 2232) 137 MG/DL HDL CHOLESTEROL (test code = 2220) 49 MG/DL CALC LDL CHOL (test code = 2237) 144 MG/DL RISK RATIO LDL/HDL (test cod e = 2238) 2.94 RATIO Toney RennerLIPID [id number] 00:00:00* Test Item Value Reference Range Interpretation Comme nts CHOLESTEROL (test code = 2210) 219 MG/DL TRIGLYCERIDES (test code = 2232) 137 MG/DL HDL CHOLESTEROL (test code = 2220) 49 MG/DL CALC LDL CHOL (test code = 2237) 144 MG/DL RISK RATIO LDL/HDL (test cod e = 2238) 2.94 RATIO Toney RennerCOMPREHENSIVE METABOLIC [id number] 00:00:00* Test Item Value Reference Range Interpretation Comme nts GLUCOSE (test code = 2217) 195 MG/DL BUN (test code = 2208) 12 MG/DL CREATININE (test code = 2214) 0.52 MG/DL eGFR (2020 CKD-EPI) (test co de = 56277) 99 ML/MIN/1.73 CALC BUN/CREAT (test code = [...] (test code = 2219) 29 U/L Toney RennerCOMPREHENSIVE METABOLIC [id number] 00:00:00* Test Item Value Reference Range Interpretation Comme nts GLUCOSE (test code = 2217) 195 MG/DL BUN (test code = 2208) 12 MG/DL CREATININE (test code = 2214) 0.52 MG/DL eGFR (2020 CKD-EPI) (test co de = 76499) 99 ML/MIN/1.73 CALC BUN/CREAT (test code = [...] code = 2219) 29 U/L Toney F SpringerLIPID [id number] 00:00:00* Test Item Value Reference Range Interpretation Comme nts CHOLESTEROL (test code = 2210) 219 MG/DL TRIGLYCERIDES (test code = 2232) 137 MG/DL HDL CHOLESTEROL (test code = 2220) 49 MG/DL CALC LDL CHOL (test code = 2237) 144 MG/DL RISK RATIO LDL/HDL (test cod e = 2238) 2.94 RATIO Toney Cowan ZurdoCOMPREHENSIVE METABOLIC [id number] 00:00:00* Test Item Value Reference Range Interpretation Comme nts GLUCOSE (test code = 2217) 195 MG/DL BUN (test code = 2208) 12 MG/DL CREATININE (test code = 2214) 0.52 MG/DL eGFR (2020 CKD-EPI) (test co de = 98655) 99 ML/MIN/1.73 CALC BUN/CREAT (test code = [...] code = 2219) 29 U/L Toney RennerLIPID [id number] 00:00:00* Test Item Value Reference Range Interpretation Comme nts CHOLESTEROL (test code = 2210) 219 MG/DL TRIGLYCERIDES (test code = 2232) 137 MG/DL HDL CHOLESTEROL (test code = 2220) 49 MG/DL CALC LDL CHOL (test code = 2237) 144 MG/DL RISK RATIO LDL/HDL (test cod e = 2238) 2.94 RATIO Toney RennerCOMPREHENSIVE METABOLIC [id number] 00:00:00* Test Item Value Reference Range Interpretation Comme nts GLUCOSE (test code = 2217) 195 MG/DL BUN (test code = 2208) 12 MG/DL CREATININE (test code = 2214) 0.52 MG/DL eGFR (2020 CKD-EPI) (test co de = 98954) 99 ML/MIN/1.73 CALC BUN/CREAT (test code = [...] code = 2219) 29 U/L Toney RennerLIPID [id number] 00:00:00* Test Item Value Reference Range Interpretation Comme nts CHOLESTEROL (test code = 2210) 219 MG/DL TRIGLYCERIDES (test code = 2232) 137 MG/DL HDL CHOLESTEROL (test code = 2220) 49 MG/DL CALC LDL CHOL (test code = 2237) 144 MG/DL RISK RATIO LDL/HDL (test cod e = 2238) 2.94 RATIO Toney RennerCOMPREHENSIVE METABOLIC [id number] 00:00:00* Test Item Value Reference Range Interpretation Comme nts GLUCOSE (test code = 2217) 195 MG/DL BUN (test code = 2208) 12 MG/DL CREATININE (test code = 2214) 0.52 MG/DL eGFR (2020 CKD-EPI) (test co de = 93386) 99 ML/MIN/1.73 CALC BUN/CREAT (test code = [...] code = 2219) 29 U/L Toney RennerLIPID [id number] 00:00:00* Test Item Value Reference Range Interpretation Comme nts CHOLESTEROL (test code = 2210) 219 MG/DL TRIGLYCERIDES (test code = 2232) 137 MG/DL HDL CHOLESTEROL (test code = 2220) 49 MG/DL CALC LDL CHOL (test code = 2237) 144 MG/DL RISK RATIO LDL/HDL (test cod e = 2238) 2.94 RATIO Toney RennerCOMPREHENSIVE METABOLIC [id number] 00:00:00* Test Item Value Reference Range Interpretation Comme nts GLUCOSE (test code = 2217) 195 MG/DL BUN (test code = 2208) 12 MG/DL CREATININE (test code = 2214) 0.52 MG/DL eGFR (2020 CKD-EPI) (test co de = 36332) 99 ML/MIN/1.73 CALC BUN/CREAT (test code = [...] code = 2219) 29 U/L Toney F SpringerLIPID [id number] 00:00:00* Test Item Value Reference Range Interpretation Comme nts CHOLESTEROL (test code = 2210) 219 MG/DL TRIGLYCERIDES (test code = 2232) 137 MG/DL HDL CHOLESTEROL (test code = 2220) 49 MG/DL CALC LDL CHOL (test code = 2237) 144 MG/DL RISK RATIO LDL/HDL (test cod e = 2238) 2.94 RATIO Toney Cowan ZurdoCOMPREHENSIVE METABOLIC [id number] 00:00:00* Test Item Value Reference Range Interpretation Comme nts GLUCOSE (test code = 2217) 195 MG/DL BUN (test code = 2208) 12 MG/DL CREATININE (test code = 2214) 0.52 MG/DL eGFR (2020 CKD-EPI) (test co de = 25294) 99 ML/MIN/1.73 CALC BUN/CREAT (test code = [...] code = 2219) 29 U/L Toney F [facility] METABOLIC PANEL (NA, K, CL, CO2, GLUCOSE, BUN, CREATININE, CA)2022-11-21 13:11:20* Test Item Value Reference Range Interpretation Comme nts NA (test code = 1501179829) 142 mmol/L 135-145 K (test code = 9775808331) 3.7 mmol/L 3.5-5.0 CL (test code = 0438605552) 106 mmol/L 98-108 CO2 TOTAL (test code = 2882151440) 27 mmol/L 23-31 AGAP (test code = 8721710208) 2-16 BUN (test code = 9881962995) 14 mg/dL 7-23 GLUCOSE (test code = 9399546707) 209 mg/dL 70-110 H CREATININE (test code = 0057588971) 0.49 mg/dL 0.50-1.04 L CALCIUM (test code = 5896456758) 8.9 mg/dL 8.6-10.6 eGFR (test code = 7719391065) mL/min/1.73m2 FIOR (test code = FIOR) Association [...] imaging tests). Lab Interpretation (test code = 33795-6) Abnormal [facility] METABOLIC PANEL (NA, K, CL, CO2, GLUCOSE, BUN, CREATININE, CA)2022-11-21 13:11:20* Test Item Value Reference Range Interpretation Comme nts NA (test code = 7387873677) 142 mmol/L 135-145 K (test code = 8995200895) 3.7 mmol/L 3.5-5.0 CL (test code = 9982407496) 106 mmol/L 98-108 CO2 TOTAL (test code = 7518380131) 27 mmol/L 23-31 AGAP (test code = 8953621667) 2-16 BUN (test code = 3030577975) 14 mg/dL 7-23 GLUCOSE (test code = 6426476050) 209 mg/dL 70-110 H CREATININE (test code = [id number]) 0.49 mg/dL 0.50-1.04 L CALCIUM (test code = 6249333612) 8.9 mg/dL 8.6-10.6 eGFR (test code = 0458509081) mL/min/1.73m2 FIOR (test code = FIOR) Association [...] imaging tests). Lab Interpretation (test code = 68936-1) [facility] / [id number] 13:03:21* Test Item Value Reference Range Interpretation Comme [facility] PATIENT (test code = 5964-2) See_Comment [[employer]] The system which generated this result transmitted reference range: 10.1 - 12.6 Seconds. The reference range was not used to interpret this result as normal/abnormal. INR (test code = 6301-6) Normal INR <1.1; Warfarin Therapeutic range 2.0 to 3.0 or 2.5 to 3.5, depending upon the indications. Lab Interpretation (test code = 40407-9) Normal [facility] / [id number] 13:03:21* Test Item Value Reference Range Interpretation Comme [facility] PROTVICKY PATIENT (test code = 5964-2) See_Comment [[employer]] The system which generated this result transmitted reference range: 10.1 - 12.6 Seconds. The reference range was not used to interpret this result as normal/abnormal. INR (test code = 6301-6) Normal INR <1.1; Warfarin Therapeutic range 2.0 to 3.0 or 2.5 to 3.5, depending upon the indications. Lab Interpretation (test code = 77827-7) Normal [facility] WITH [id number] 13:00:20* Test Item Value Reference Range Interpretation Comme nts WBC (test code = 6690-2) See_Comment [Automated [employer]] The system which generated this result transmitted reference range: 4.30 - 11.10 10*3/?L. The reference range was not used to interpret this result as normal/abnormal. RBC (test code = 789-8) See_Comment [Automated messa ge] The system which [...] 32.1 g/dL 31.6-35.1 RDW-SD (test code = 21617-7) 45.9 fL 39.0-49.9 RDW-CV (test code = 788-0) 13.8 % 12.0-15.5 PLT (test code = 777-3) See_Comment [Automated messa ge] The system which generated this result transmitted reference range: 166 - 358 10*3/?L. The reference range was not used to interpret this result as normal/abnormal. MPV (test code = 72104-2) 11.3 fL 9.5-12.9 NRBC/100 WBC (test code = 0580389969) See_Comment [Automated me ssage] The system which generated this result transmitted reference range: 0.0 - 10.0 /100 WBCs. The reference range was not used to interpret this result as normal/abnormal. NRBC x10^3 (test code = 9507483860) See_Comment [Automated me ssage] The system which generated this result transmitted reference range: 10*3/?L. The reference range was not used to interpret this result as normal/abnormal. GRAN MAT (NEUT) % (test code = 770-8) 49.8 % IMM GRAN % (test code = 8576735114) 0.50 % LYMPH % (test code = 736-9) 33.3 % MONO % (test code = 5905-5) 10.5 % EOS % (test code = 713-8) 5.0 % BASO % (test code = 706-2) 0.9 % GRAN MAT x10^3(ANC) (test code = 6133588716) 3.27 10*3/uL 1.88-7.09 IMM GRAN x10^3 (test code = 3060023920) 0.03 10*3/uL 0.00-0.06 LYMPH x10^3 (test code = 731-0) 2.19 10*3/uL 1.32-3.29 MONO x10^3 (test code = 742-7) 0.69 10*3/uL 0.33-0.92 EOS x10^3 (test code = 711-2) 0.33 10*3/uL 0.03-0.39 BASO x10^3 (test code = 704-7) 0.06 10*3/uL 0.01-0.07 [facility] WITH [id number] 13:00:20* Test Item Value Reference Range Interpretation Comme nts WBC (test code = 6690-2) See_Comment [Automated messa ge] The system which generated this result transmitted reference range: 4.30 - 11.10 10*3/?L. The reference range was not used to interpret this result as normal/abnormal. RBC (test code = 789-8) See_Comment [Automated messa ge] The system which [...] 32.1 g/dL 31.6-35.1 RDW-SD (test code = 48704-0) 45.9 fL 39.0-49.9 RDW-CV (test code = 788-0) 13.8 % 12.0-15.5 PLT (test code = 777-3) See_Comment [Automated messa ge] The system which generated this result transmitted reference range: 166 - 358 10*3/?L. The reference range was not used to interpret this result as normal/abnormal. MPV (test code = 96811-4) 11.3 fL 9.5-12.9 NRBC/100 WBC (test code = 5679234723) See_Comment [Automated me ssage] The system which generated this result transmitted reference range: 0.0 - 10.0 /100 WBCs. The reference range was not used to interpret this result as normal/abnormal. NRBC x10^3 (test code = 9059587928) See_Comment [Automated me ssage] The system which generated this result transmitted reference range: 10*3/?L. The reference range was not used to interpret this result as normal/abnormal. GRAN MAT (NEUT) % (test code = 770-8) 49.8 % IMM GRAN % (test code = 2768083497) 0.50 % LYMPH % (test code = 736-9) 33.3 % MONO % (test code = 5905-5) 10.5 % EOS % (test code = 713-8) 5.0 % BASO % (test code = 706-2) 0.9 % GRAN MAT x10^3(ANC) (test code = 9626621908) 3.27 10*3/uL 1.88-7.09 IMM GRAN x10^3 (test code = 3597556777) 0.03 10*3/uL 0.00-0.06 LYMPH x10^3 (test code = 731-0) 2.19 10*3/uL 1.32-3.29 MONO x10^3 (test code = 742-7) 0.69 10*3/uL 0.33-0.92 EOS x10^3 (test code = 711-2) 0.33 10*3/uL 0.03-0.39 BASO x10^3 (test code = 704-7) 0.06 10*3/uL 0.01-0.07 [facility] [id number] 06:36:16* Test Item Value Reference Range Interpretation Comme nts HEMOGLOBIN A1c (test code = 53735) 9.6 % 4.2-5.6 H [employer] GUIDELINES FOR HGB A1C: [...] OR LABORATORY CONSULTATION. CBC W/AUTO DIFF WITH [id number] 06:04:53* Test Item Value Reference Range Interpretation [...] 0.00-0.10 ABS NUCLEATED RBCS (test code = 33501) 0.00 K/UL 0.00-0.11 [id number] 04:35:36* Test Item Value Reference Range Interpretation Comme nts RPR RESULT (test code = 3501) NON-REACTIVE NON-REACTIVE RPR TITER (test code = 3500) NOT INDIC. TITER NOT INDIC. VITAMIN [id number] 03:46:59* Test Item Value Reference Range Interpretation Comme nts VITAMIN B-12 (test code = 2840) 510 PG/ML 200-950 UNLESS OTHERWISE INDICATED, ALL TESTING PERFORMED [facility] [address] [place] [address] [employer] CH[employer]FFE[employer]: JENNIFER BECKMAN M.D. CLIA NUMBER [id number] [facility] [place]. [id number] CBC W/AUTO [id number] 00:00:00* Test Item Value Reference Range Interpretation [...] ABS NUCLEATED RBCS (test cod e = 35544) 0.00 K/UL Toney RennerHEMOGLOBIN [id number] 00:00:00* Test Item Value Reference Range Interpretation Comme nts HEMOGLOBIN A1c (test code = 02761) 9.6 % Toney [id number] 00:00:00* Test Item Value Reference Range Interpretation Comme nts RPR RESULT (test code = 3501) NON-REACTIVE RPR TITER (test code = 3500) NOT INDIC. TITER Toney RennerVITAMIN [id number] 00:00:00* Test Item Value Reference Range Interpretation Comme nts VITAMIN B-12 (test code = 2840) 510 PG/ML Toney RennerCBC W/AUTO [id number] 00:00:00* Test Item Value Reference Range Interpretation [...] ABS NUCLEATED RBCS (test cod e = 82719) 0.00 K/UL Toney Cowan AustinHEMOGLOBIN [id number] 00:00:00* Test Item Value Reference Range Interpretation Comme nts HEMOGLOBIN A1c (test code = 52524) 9.6 % Toney Cowan [id number] 00:00:00* Test Item Value Reference Range Interpretation Comme nts RPR RESULT (test code = 3501) NON-REACTIVE RPR TITER (test code = 3500) NOT INDIC. TITER Toney RennerVITAMIN [id number] 00:00:00* Test Item Value Reference Range Interpretation Comme nts VITAMIN B-12 (test code = 2840) 510 PG/ML Toney RennerHEMOGLOBIN [id number] 00:00:00* Test Item Value Reference Range Interpretation Comme nts HEMOGLOBIN A1c (test code = 16923) 9.6 % Toney RennerCBC W/AUTO [id number] 00:00:00* Test Item Value Reference Range Interpretation [...] ABS NUCLEATED RBCS (test cod e = 14321) 0.00 K/UL Toney Cowan AustinHEMOGLOBIN [id number] 00:00:00* Test Item Value Reference Range Interpretation Comme nts HEMOGLOBIN A1c (test code = 74659) 9.6 % Toney Cowan [id number] 00:00:00* Test Item Value Reference Range Interpretation Comme nts RPR RESULT (test code = 3501) NON-REACTIVE RPR TITER (test code = 3500) NOT INDIC. TITER Toney Cowan AustinVITAMIN [id number] 00:00:00* Test Item Value Reference Range Interpretation Comme nts VITAMIN B-12 (test code = 2840) 510 PG/ML Toney Cowan [id number] 00:00:00* Test Item Value Reference Range Interpretation Comme nts RPR RESULT (test code = 3501) NON-REACTIVE RPR TITER (test code = 3500) NOT INDIC. TITER Toney Cowan AustinVITAMIN [id number] 00:00:00* Test Item Value Reference Range Interpretation Comme nts VITAMIN B-12 (test code = 2840) 510 PG/ML Toney RennerCBC W/AUTO [id number] 00:00:00* Test Item Value Reference Range Interpretation [...] ABS NUCLEATED RBCS (test cod e = 18772) 0.00 K/UL Toney RennerHEMOGLOBIN [id number] 00:00:00* Test Item Value Reference Range Interpretation Comme nts HEMOGLOBIN A1c (test code = 58544) 9.6 % Toney [id number] 00:00:00* Test Item Value Reference Range Interpretation Comme nts RPR RESULT (test code = 3501) NON-REACTIVE RPR TITER (test code = 3500) NOT INDIC. TITER Toney RennerVITAMIN [id number] 00:00:00* Test Item Value Reference Range Interpretation Comme nts VITAMIN B-12 (test code = 2840) 510 PG/ML Toney RennerCBC W/AUTO [id number] 00:00:00* Test Item Value Reference Range Interpretation [...] ABS NUCLEATED RBCS (test cod e = 74833) 0.00 K/UL Toney RennerHEMOGLOBIN [id number] 00:00:00* Test Item Value Reference Range Interpretation Comme nts HEMOGLOBIN A1c (test code = 49560) 9.6 % Toney [id number] 00:00:00* Test Item Value Reference Range Interpretation Comme nts RPR RESULT (test code = 3501) NON-REACTIVE RPR TITER (test code = 3500) NOT INDIC. TITER Toney RennerVITAMIN [id number] 00:00:00* Test Item Value Reference Range Interpretation Comme nts VITAMIN B-12 (test code = 2840) 510 PG/ML Toney RennerCBC W/AUTO [id number] 00:00:00* Test Item Value Reference Range Interpretation [...] ABS NUCLEATED RBCS (test cod e = 60810) 0.00 K/UL Toney RennerHEMOGLOBIN [id number] 00:00:00* Test Item Value Reference Range Interpretation Comme nts HEMOGLOBIN A1c (test code = 01150) 9.6 % Toney [id number] 00:00:00* Test Item Value Reference Range Interpretation Comme nts RPR RESULT (test code = 3501) NON-REACTIVE RPR TITER (test code = 3500) NOT INDIC. TITER Toney RennerVITAMIN [id number] 00:00:00* Test Item Value Reference Range Interpretation Comme nts VITAMIN B-12 (test code = 2840) 510 PG/ML Toney RennerCBC W/AUTO [id number] 00:00:00* Test Item Value Reference Range Interpretation [...] ABS NUCLEATED RBCS (test cod e = 21914) 0.00 K/UL Toney RennerHEMOGLOBIN [id number] 00:00:00* Test Item Value Reference Range Interpretation Comme nts HEMOGLOBIN A1c (test code = 71172) 9.6 % Toney RennerDwluujXZN8255-06-70 00:00:00* Test Item Value Reference Range Interpretation Comme nts RPR RESULT (test code = 3501) NON-REACTIVE RPR TITER (test code = 3500) NOT INDIC. TITER Toney RennerVITAMIN [id number] 00:00:00* Test Item Value Reference Range Interpretation Comme nts VITAMIN B-12 (test code = 2840) 510 PG/ML Toney RennerCBC W/AUTO [id number] 00:00:00* Test Item Value Reference Range Interpretation [...] ABS NUCLEATED RBCS (test cod e = 46652) 0.00 K/UL Toney RennerHEMOGLOBIN [id number] 00:00:00* Test Item Value Reference Range Interpretation Comme nts HEMOGLOBIN A1c (test code = 46714) 9.6 % Toney RennerQkbrtwMLO8892-03-02 00:00:00* Test Item Value Reference Range Interpretation Comme nts RPR RESULT (test code = 3501) NON-REACTIVE RPR TITER (test code = 3500) NOT INDIC. TITER Toney RennerVITAMIN [id number] 00:00:00* Test Item Value Reference Range Interpretation Comme nts VITAMIN B-12 (test code = 2840) 510 PG/ML Toney RennerCBC W/AUTO [id number] 00:00:00* Test Item Value Reference Range Interpretation [...] ABS NUCLEATED RBCS (test cod e = 71546) 0.00 K/UL [facility] [id number] 00:00:00* Test Item Value Reference Range Interpretation [...] ABS NUCLEATED RBCS (test cod e = 77871) 0.00 K/UL HEMOGLOBIN [id number] 00:00:00* Test Item Value Reference Range Interpretation Comme nts HEMOGLOBIN A1c (test code = 91140) 9.6 % [id number] 00:00:00* Test Item Value Reference Range Interpretation Comme nts RPR RESULT (test code = 3501) NON-REACTIVE RPR TITER (test code = 3500) NOT INDIC. TITER VITAMIN [id number] 00:00:00* Test Item Value Reference Range Interpretation Comme nts VITAMIN B-12 (test code = 2840) 510 PG/ML CBC W/AUTO [id number] 00:00:00* Test Item Value Reference Range Interpretation [...] ABS NUCLEATED RBCS (test cod e = 38231) 0.00 K/UL HEMOGLOBIN [id number] 00:00:00* Test Item Value Reference Range Interpretation Comme nts HEMOGLOBIN A1c (test code = 61082) 9.6 % [id number] 00:00:00* Test Item Value Reference Range Interpretation Comme nts RPR RESULT (test code = 3501) NON-REACTIVE RPR TITER (test code = 3500) NOT INDIC. TITER VITAMIN [id number] 00:00:00* Test Item Value Reference Range Interpretation Comme nts VITAMIN B-12 (test code = 2840) 510 PG/ML CBC W/AUTO [id number] 00:00:00* Test Item Value Reference Range Interpretation [...] ABS NUCLEATED RBCS (test cod e = 56443) 0.00 K/UL HEMOGLOBIN [id number] 00:00:00* Test Item Value Reference Range Interpretation Comme nts HEMOGLOBIN A1c (test code = 44523) 9.6 % [id number] 00:00:00* Test Item Value Reference Range Interpretation Comme nts RPR RESULT (test code = 3501) NON-REACTIVE RPR TITER (test code = 3500) NOT INDIC. TITER VITAMIN [id number] 00:00:00* Test Item Value Reference Range Interpretation Comme nts VITAMIN B-12 (test code = 2840) 510 PG/ML CBC W/AUTO [id number] 00:00:00* Test Item Value Reference Range Interpretation [...] ABS NUCLEATED RBCS (test cod e = 72228) 0.00 K/UL HEMOGLOBIN [id number] 00:00:00* Test Item Value Reference Range Interpretation Comme nts HEMOGLOBIN A1c (test code = 96909) 9.6 % [id number] 00:00:00* Test Item Value Reference Range Interpretation Comme nts RPR RESULT (test code = 3501) NON-REACTIVE RPR TITER (test code = 3500) NOT INDIC. TITER VITAMIN [id number] 00:00:00* Test Item Value Reference Range Interpretation Comme nts VITAMIN B-12 (test code = 2840) 510 PG/ML POCT GLUCOSE (AUTOMATED)2022-08-02 16:54:10* Test Item Value Reference Range Interpretation Comme nts POCT GLU (test code = 3242980276) 194 mg/dL 70-110 H Lab Interpretation (test cod e = 01680-7) Abnormal [facility] GLUCOSE (AUTOMATED)2022-08-02 12:46:27* Test Item Value Reference Range Interpretation Comme nts POCT GLU (test code = 1277053812) 184 mg/dL 70-110 H Lab Interpretation (test cod e = 78308-1) Abnormal [facility] GLUCOSE (AUTOMATED)2022-08-01 21:39:34* Test Item Value Reference Range Interpretation Comme nts POCT GLU (test code = 6746892277) 178 mg/dL 70-110 H Lab Interpretation (test cod e = 30781-3) Abnormal [facility] GLUCOSE (AUTOMATED)2022-08-01 16:52:06* Test Item Value Reference Range Interpretation Comme nts POCT GLU (test code = 2696181018) 177 mg/dL 70-110 H Lab Interpretation (test cod e = 58105-1) Abnormal [facility] GLUCOSE (AUTOMATED)2022-08-01 16:49:53* Test Item Value Reference Range Interpretation Comme nts POCT GLU (test code = 5362747650) 184 mg/dL 70-110 H Lab Interpretation (test cod e = 72180-8) Abnormal [facility] GLUCOSE (AUTOMATED)2022-08-01 12:48:55* Test Item Value Reference Range Interpretation Comme nts POCT GLU (test code = 2542215077) 180 mg/dL 70-110 H Lab Interpretation (test cod e = 47856-2) Abnormal [facility] GLUCOSE (AUTOMATED)2022-08-01 01:05:36* Test Item Value Reference Range Interpretation Comme nts POCT GLU (test code = 2535322441) 217 mg/dL 70-110 H Lab Interpretation (test cod e = 01010-2) [facility] 22:39:50* Test Item Value Reference Range Interpretation Comme nts Height (test code = 4157468846) in Weight (test code = 2922370761) lbs Systolic BP (test code = 3373700757) mmHg Diastolic BP (test code = 6468357260) mmHg Heart Rate (test code = 9073422433) bpm BSA (test code = 4627270335) 1.76 m2 Ao root diam (test code = 3446688804) 3.20 cm Aortic root (test code = 3305272686) 3.2 cm Ao root annulus (test code = 6708133731) 3.2 cm LVOT diameter (test code = 3162979873) 1.90 cm LVOT area (test code = 5984738832) 2.80 cm2 LVIDD (test code = 3487264344) 4.20 cm Left Ventricular End Diastolic Volume by Teichholz Method (test code = 4877353) 77.7 mL IVS (test code = 9329517286) 1.31 cm Interventricular Septum Diastolic Thickness by 2D (test code = 6404288) 1.31 cm LVPWD (test code = 3665450208) 1.31 cm PW (test code = 7105424799) 1.31 cm 0.6-1.1 EF(Teich) (test code = 0246473572) 60.50 % LVIDS (test code = 6079630169) 2.80 cm Left Ventricular End Systolic Volume by Teichholz Method (test code = 0761210) 30.7 mL FS (test code = 5324663381) 32 % EF - 2D (test code = 16627121) 60.50 % LA size (test code = 7721333205) 3.5 cm TR Peak Rebekah (test code = 8677152713) 226.6 cm/s Triscuspid Valve Regurgitation Peak Gradient (test code = 1684566535) mmHg Pulmonic Regurgitant End Max Velocity (test code = 1904512785) 86.0 cm/s LAV(MOD-sp4) (test code = 0511217690) 42.30 mL E wave decelartion time (test code = 3367025746) 0.31 s MV stenosis pressure 1/2 time (test code = 8873076297) 93.6 ms MV Peak E Rebekah (test code = 3724863062) 62.3 cm/s MV Peak A Rebekah (test code = 1185618062) 81.2 cm/s E/A ratio (test code = 8975377828) ratio MV Prop V (test code = 5944241314) 21.70 cm/s MV E/e' septal (test code = 8051196500) 6.9 cm/s Tapse (test code = 7896694752) 2.15 cm LVOT stroke volume (test code = 5090918184) 53.70 cm3 LVOT peak rebekah (test code = 8076186248) 82.7 cm/s LVOT mn grad (test code = 2948466470) mmHg AV LVOT peak gradient (test code = 0291857989) mmHg LVOT peak VTI (test code = 8904474822) 18.9 cm LV V1 mean (test code = 7369776563) 53.70 cm/s AV regurgitation pressure 1/2 time (test code = 3202928050) 774.6 ms AI dec slope (test code = 5257720097) 179.20 cm/s2 AI max rebekah (test code = 0499567968) 473.80 cm/s AI max PG (test code = 4189460991) 89.80 mm[Hg] Aortic valve mean velocity (test code = 7856610233) 104.6 cm/s Ao peak rebekah (test code = 1616741376) 150.2 cm/s Ao VTI (test code = 7472554576) 32.4 cm AV area by cont VTI (test code = 8329181860) 1.7 cm2 AV area peak rebekah (test code = 6310949854) 1.6 cm2 Ao max PG (test code = 4096638645) 9.00 mm[Hg] AV peak gradient (test code = 0896256066) mmHg AV valve area (test code = 8634591436) 1.66 cm2 AV mean gradient (test code = 8368249756) mmHg MR max PG (test code = 9965657439) 89.70 mm[Hg] MR max rebekah (test code = 8242337855) 473.00 cm/s Mr max rebekah (test code = 7515692885) 473.0 m/s Radiology Study observation (narrative) (test code = 33953-9) FIOR (test code = FIOR) ?Left?Ventricle: Left [...] 2D, color flow Doppler and spectral Doppler. [facility] GLUCOSE (AUTOMATED)2022-07-31 21:44:50* Test Item Value Reference Range Interpretation Comme nts POCT GLU (test code = 0452893090) 219 mg/dL 70-110 H Lab Interpretation (test cod e = 07249-4) Abnormal [facility] GLUCOSE (AUTOMATED)2022-07-31 12:48:44* Test Item Value Reference Range Interpretation Comme nts POCT GLU (test code = 2332156996) 201 mg/dL 70-110 H Lab Interpretation (test cod e = 19312-9) [facility]normal [facility], [id number] 09:11:42SPECIMEN NUMBER: [id number] CULTURE, URINE SPECIMEN NUMBER: [id number] SPECIMEN COMMENT: URINE SOURCE: URINE REPORT STATUS: FINAL FINAL REPORT: 05/05/2022 10-50,000 CFU/ML UROGENITAL WOLF PRESENT NO COMMON PATHOGENSCULTURE, [id number] 00:00:00* Test Item Value Reference Range Interpretation Comme nts CULTURE, URINE (test code = 02734) SPECIMEN NUMBER: [id number] Toney Salinas, [id number] 00:00:00* Test Item Value Reference Range Interpretation Comme nts CULTURE, URINE (test code = 67470) SPECIMEN NUMBER: [id number] Toney Salinas [id number] 00:00:00* Test Item Value Reference Range Interpretation Comme nts CULTURE, URINE (test code = 39501) SPECIMEN NUMBER: [id number] Toney Salinas, [id number] 00:00:00* Test Item Value Reference Range Interpretation Comme nts CULTURE, URINE (test code = 79893) SPECIMEN NUMBER: [id number] Toney Salinas, [id number] 00:00:00* Test Item Value Reference Range Interpretation Comme nts CULTURE, URINE (test code = 08134) SPECIMEN NUMBER: [id number] Toney Salinas, [id number] 00:00:00* Test Item Value Reference Range Interpretation Comme nts CULTURE, URINE (test code = 64700) SPECIMEN NUMBER: [id number] Toney Salinas, [id number] 00:00:00* Test Item Value Reference Range Interpretation Comme nts CULTURE, URINE (test code = 62955) SPECIMEN NUMBER: [id number] Toney MarcusLTURE, [id number] 00:00:00* Test Item Value Reference Range Interpretation Comme nts CULTURE, URINE (test code = 53018) SPECIMEN NUMBER: [id number] Toney MarcusLTBG, [id number] 00:00:00* Test Item Value Reference Range Interpretation Comme nts CULTURE, URINE (test code = 87350) SPECIMEN NUMBER: [id number] Toney MarcusLTBG, [id number] 00:00:00* Test Item Value Reference Range Interpretation Comme nts CULTURE, URINE (test code = 77238) SPECIMEN NUMBER: [id number] CULTURE, [id number] 00:00:00* Test Item Value Reference Range Interpretation Comme nts CULTURE, URINE (test code = 51379) SPECIMEN NUMBER: [id number] CULTURE, [id number] 00:00:00* Test Item Value Reference Range Interpretation Comme nts CULTURE, URINE (test code = 17391) SPECIMEN NUMBER: [id number] CULTURE, [id number] 00:00:00* Test Item Value Reference Range Interpretation Comme nts CULTURE, URINE (test code = 47378) SPECIMEN NUMBER: [id number] CULTURE, [id number] 00:00:00* Test Item Value Reference Range Interpretation Comme nts CULTURE, URINE (test code = 59075) SPECIMEN NUMBER: [id number] CULTURE, [id number] 00:00:00* Test Item Value Reference Range Interpretation Comme nts CULTURE, URINE (test code = 08253) SPECIMEN NUMBER: [id number] CULTURE, [id number] 00:00:00* Test Item Value Reference Range Interpretation Comme nts CULTURE, URINE (test code = 98750) SPECIMEN NUMBER: [id number] CULTURE, [id number] 00:00:00* Test Item Value Reference Range Interpretation Comme nts CULTURE, URINE (test code = 31440) SPECIMEN NUMBER: [id number] HEMOGLOBIN [id number] 05:13:20* Test Item Value Reference Range Interpretation Comme nts HEMOGLOBIN A1c (test code = 88820) 10.2 % 4.2-5.6 H [employer] GUIDELINES FOR HGB A1C: [...] CONSULTATION. UNLESS OTHERWISE INDICATED, ALL TESTING PERFORMED [facility] [employer] [address] [place] [id number] [employer]: JENNIFER BECKMAN M.D. [place] NUMBER [id number] [facility] [place]. [id number] HEMOGLOBIN [id number] 00:00:00* Test Item Value Reference Range Interpretation Comme nts HEMOGLOBIN A1c (test code = 86299) 10.2 % Toney F AustinHEMOGLOBIN [id number] 00:00:00* Test Item Value Reference Range Interpretation Comme nts HEMOGLOBIN A1c (test code = 67171) 10.2 % Toney F AustinHEMOGLOBIN [id number] 00:00:00* Test Item Value Reference Range Interpretation Comme nts HEMOGLOBIN A1c (test code = 67849) 10.2 % Toney F AustinHEMOGLOBIN [id number] 00:00:00* Test Item Value Reference Range Interpretation Comme nts HEMOGLOBIN A1c (test code = 61794) 10.2 % Toney F AustinHEMOGLOBIN [id number] 00:00:00* Test Item Value Reference Range Interpretation Comme nts HEMOGLOBIN A1c (test code = 54936) 10.2 % Toney F AustinHEMOGLOBIN [id number] 00:00:00* Test Item Value Reference Range Interpretation Comme nts HEMOGLOBIN A1c (test code = 98127) 10.2 % Otney F AustinHEMOGLOBIN [id number] 00:00:00* Test Item Value Reference Range Interpretation Comme nts HEMOGLOBIN A1c (test code = 79216) 10.2 % Toney F AustinHEMOGLOBIN [id number] 00:00:00* Test Item Value Reference Range Interpretation Comme nts HEMOGLOBIN A1c (test code = 70453) 10.2 % Toney F AustinHEMOGLOBIN [id number] 00:00:00* Test Item Value Reference Range Interpretation Comme nts HEMOGLOBIN A1c (test code = 00738) 10.2 % Toney F AustinHEMOGLOBIN [id number] 00:00:00* Test Item Value Reference Range Interpretation Comme nts HEMOGLOBIN A1c (test code = 46377) 10.2 % HEMOGLOBIN [id number] 00:00:00* Test Item Value Reference Range Interpretation Comme nts HEMOGLOBIN A1c (test code = 18872) 10.2 % HEMOGLOBIN [id number] 00:00:00* Test Item Value Reference Range Interpretation Comme nts HEMOGLOBIN A1c (test code = 51259) 10.2 % HEMOGLOBIN [id number] 00:00:00* Test Item Value Reference Range Interpretation Comme nts HEMOGLOBIN A1c (test code = 12873) 10.2 % HEMOGLOBIN [id number] 00:00:00* Test Item Value Reference Range Interpretation Comme nts HEMOGLOBIN A1c (test code = 84650) 10.2 % HEMOGLOBIN [id number] 00:00:00* Test Item Value Reference Range Interpretation Comme nts HEMOGLOBIN A1c (test code = 55355) 10.2 % HEMOGLOBIN [id number] 00:00:00* Test Item Value Reference Range Interpretation Comme nts HEMOGLOBIN A1c (test code = 22087) 10.2 % HEMOGLOBIN [id number] 00:00:00* Test Item Value Reference Range Interpretation Comme nts HEMOGLOBIN A1c (test code = 10041) 10.2 % OCCULT BLD,FECAL,IMMUNOASSAY DIAG [ADDED]2022-02-05 00:00:00* Test Item Value Reference Range Interpretation Comme nts OCCULT BLD, FECAL (test code = 98097) NEGATIVE Toney F AustinOCCULT BLD,FECAL,IMMUNOASSAY DIAG [ADDED]2022-02-05 00:00:00* Test Item Value Reference Range Interpretation Comme nts OCCULT BLD, FECAL (test code = 84988) NEGATIVE Toney F AustinOCCULT BLD,FECAL,IMMUNOASSAY DIAG [ADDED]2022-02-05 00:00:00* Test Item Value Reference Range Interpretation Comme nts OCCULT BLD, FECAL (test code = 74833) NEGATIVE Toney F AustinOCCULT BLD,FECAL,IMMUNOASSAY DIAG [ADDED]2022-02-05 00:00:00* Test Item Value Reference Range Interpretation Comme nts OCCULT BLD, FECAL (test code = 47400) NEGATIVE Toney F AustinOCCULT BLD,FECAL,IMMUNOASSAY DIAG [ADDED]2022-02-05 00:00:00* Test Item Value Reference Range Interpretation Comme nts OCCULT BLD, FECAL (test code = 46548) NEGATIVE Toney F AustinOCCULT BLD,FECAL,IMMUNOASSAY DIAG [ADDED]2022-02-05 00:00:00* Test Item Value Reference Range Interpretation Comme nts OCCULT BLD, FECAL (test code = 83094) NEGATIVE Toney F AustinOCCULT BLD,FECAL,IMMUNOASSAY DIAG [ADDED]2022-02-05 00:00:00* Test Item Value Reference Range Interpretation Comme nts OCCULT BLD, FECAL (test code = 89899) NEGATIVE Toney F AustinOCCULT BLD,FECAL,IMMUNOASSAY DIAG [ADDED]2022-02-05 00:00:00* Test Item Value Reference Range Interpretation Comme nts OCCULT BLD, FECAL (test code = 67189) NEGATIVE Toney F AustinOCCULT BLD,FECAL,IMMUNOASSAY DIAG [ADDED]2022-02-05 00:00:00* Test Item Value Reference Range Interpretation Comme nts OCCULT BLD, FECAL (test code = 24629) NEGATIVE Toney F AustinOCCULT BLD,FECAL,IMMUNOASSAY DIAG [ADDED]2022-02-05 00:00:00* Test Item Value Reference Range Interpretation Comme nts OCCULT BLD, FECAL (test code = 63086) NEGATIVE OCCULT BLD,FECAL,IMMUNOASSAY DIAG [ADDED]2022-02-05 00:00:00* Test Item Value Reference Range Interpretation Comme nts OCCULT BLD, FECAL (test code = 74880) NEGATIVE OCCULT BLD,FECAL,IMMUNOASSAY DIAG [ADDED]2022-02-05 00:00:00* Test Item Value Reference Range Interpretation Comme nts OCCULT BLD, FECAL (test code = 52080) NEGATIVE OCCULT BLD,FECAL,IMMUNOASSAY DIAG [ADDED]2022-02-05 00:00:00* Test Item Value Reference Range Interpretation Comme nts OCCULT BLD, FECAL (test code = 70272) NEGATIVE OCCULT BLD,FECAL,IMMUNOASSAY DIAG [ADDED]2022-02-05 00:00:00* Test Item Value Reference Range Interpretation Comme nts OCCULT BLD, FECAL (test code = 40630) NEGATIVE OCCULT BLD,FECAL,IMMUNOASSAY DIAG [ADDED]2022-02-05 00:00:00* Test Item Value Reference Range Interpretation Comme nts OCCULT BLD, FECAL (test code = 66142) NEGATIVE OCCULT BLD,FECAL,IMMUNOASSAY DIAG [ADDED]2022-02-05 00:00:00* Test Item Value Reference Range Interpretation Comme nts OCCULT BLD, FECAL (test code = 73230) NEGATIVE OCCULT BLD,FECAL,IMMUNOASSAY DIAG [ADDED]2022-02-05 00:00:00* Test Item Value Reference Range Interpretation Comme nts OCCULT BLD, FECAL (test code = 71637) NEGATIVE OCCULT BLD,FECAL,IMMUNOASSAY DIAG [ADDED]2022-02-05 00:00:00* Test Item Value Reference Range Interpretation Comme nts OCCULT BLD, FECAL (test code = 29855) NEGATIVE COMPREHENSIVE METABOLIC [id number] 05:33:23* Test Item Value Reference Range Interpretation Comme nts GLUCOSE (test code = 7) 290 MG/DL 70-99 H BUN (test code = 2207) 16 MG/DL 8-23 CREATININE (test code = 2214) 0.48 MG/DL 0.60-1.30 L eGFR (2020 CKD-EPI) (test code = 12958) 102 ML/MIN/1.73 >60 CALC BUN/CREAT (test code = 2234) 33 RATIO 6-28 H SODIUM (test code [...] code = 2219) 29 U/L 5-40 LIPID [id number] 05:33:23* Test Item Value Reference Range Interpretation [...] SPECIMENS. FOR MOREINFORMATION, SEE CLIENT ANNOUNCEMENT AT [email or web address] RISK RATIO LDL/HDL (test code = 2238) 1.87 RATIO <3.22 HEMOGLOBIN [id number] 04:54:03* Test Item Value Reference Range Interpretation Comme nts HEMOGLOBIN A1c (test code = 57237) 11.2 % 4.2-5.6 H [employer] GUIDELINES FOR HGB A1C: [...] CONSULTATION. UNLESS OTHERWISE INDICATED, ALL TESTING PERFORMED [facility] [address] [place] [id number] [employer] CH[employer]: JENNIFER BECKMAN M.D. CLIA NUMBER [id number] [place]. [id number] CBC W/AUTO DIFF WITH [id number] 04:25:48* Test Item Value Reference Range Interpretation [...] 0.00-0.10 ABS NUCLEATED RBCS (test code = 65151) 0.00 K/UL 0.00-0.11 CBC W/AUTO [id number] 00:00:00* Test Item Value Reference Range Interpretation [...] ABS NUCLEATED RBCS (test cod e = 65952) 0.00 K/UL Toney F ZurdoCOMPREHENSIVE METABOLIC [id number] 00:00:00* Test Item Value Reference Range Interpretation Comme nts GLUCOSE (test code = 2217) 290 MG/DL BUN (test code = 2208) 16 MG/DL CREATININE (test code = 2214) 0.48 MG/DL eGFR (2020 CKD-EPI) (test code = 73155) 102 ML/MIN/1.73 CALC BUN/CREAT (test code = [...] code = 2219) 29 U/L Toney RennerLIPID [id number] 00:00:00* Test Item Value Reference Range Interpretation Comme nts CHOLESTEROL (test code = 2210) 168 MG/DL TRIGLYCERIDES (test code = 2232) 99 MG/DL HDL CHOLESTEROL (test code = 2220) 52 MG/DL CALC LDL CHOL (test code = 2237) 97 MG/DL RISK RATIO LDL/HDL (test cod e = 2238) 1.87 RATIO Toney RennerHEMOGLOBIN [id number] 00:00:00* Test Item Value Reference Range Interpretation Comme katty HEMOGLOBIN A1c (test code = 43537) 11.2 % Toney RennerCBC W/AUTO [id number] 00:00:00* Test Item Value Reference Range Interpretation [...] ABS NUCLEATED RBCS (test cod e = 36498) 0.00 K/UL Toney Cowan ZurdoCBC W/AUTO [id number] 00:00:00* Test Item Value Reference Range Interpretation [...] ABS NUCLEATED RBCS (test cod e = 18222) 0.00 K/UL Toney Cowan ZurdoCOMPREHENSIVE METABOLIC [id number] 00:00:00* Test Item Value Reference Range Interpretation Comme nts GLUCOSE (test code = 2217) 290 MG/DL BUN (test code = 2208) 16 MG/DL CREATININE (test code = 2214) 0.48 MG/DL eGFR (2020 CKD-EPI) (test code = 51245) 102 ML/MIN/1.73 CALC BUN/CREAT (test code = [...] code = 2219) 29 U/L Toney RennerLIPID [id number] 00:00:00* Test Item Value Reference Range Interpretation Comme nts CHOLESTEROL (test code = 2210) 168 MG/DL TRIGLYCERIDES (test code = 2232) 99 MG/DL HDL CHOLESTEROL (test code = 2220) 52 MG/DL CALC LDL CHOL (test code = 2237) 97 MG/DL RISK RATIO LDL/HDL (test cod e = 2238) 1.87 RATIO Toney RennerHEMOGLOBIN [id number] 00:00:00* Test Item Value Reference Range Interpretation Comme nts HEMOGLOBIN A1c (test code = 92572) 11.2 % Toney RennerCBC W/AUTO [id number] 00:00:00* Test Item Value Reference Range Interpretation [...] ABS NUCLEATED RBCS (test cod e = 05024) 0.00 K/UL Toney RennerCOMPREHENSIVE METABOLIC [id number] 00:00:00* Test Item Value Reference Range Interpretation Comme nts GLUCOSE (test code = 2217) 290 MG/DL BUN (test code = 2208) 16 MG/DL CREATININE (test code = 2214) 0.48 MG/DL eGFR (2020 CKD-EPI) (test code = 93370) 102 ML/MIN/1.73 CALC BUN/CREAT (test code = [...] (test code = 2219) 29 U/L Toney RennerCOMPREHENSIVE METABOLIC [id number] 00:00:00* Test Item Value Reference Range Interpretation Comme nts GLUCOSE (test code = 2217) 290 MG/DL BUN (test code = 2208) 16 MG/DL CREATININE (test code = 2214) 0.48 MG/DL eGFR (2020 CKD-EPI) (test code = 97046) 102 ML/MIN/1.73 CALC BUN/CREAT (test code = [...] code = 2219) 29 U/L Toney RennerLIPID [id number] 00:00:00* Test Item Value Reference Range Interpretation Comme nts CHOLESTEROL (test code = 2210) 168 MG/DL TRIGLYCERIDES (test code = 2232) 99 MG/DL HDL CHOLESTEROL (test code = 2220) 52 MG/DL CALC LDL CHOL (test code = 2237) 97 MG/DL RISK RATIO LDL/HDL (test cod e = 2238) 1.87 RATIO Toney RennerHEMOGLOBIN [id number] 00:00:00* Test Item Value Reference Range Interpretation Comme katty HEMOGLOBIN A1c (test code = 58926) 11.2 % Toney Cowan AustinLIPID [id number] 00:00:00* Test Item Value Reference Range Interpretation Comme nts CHOLESTEROL (test code = 2210) 168 MG/DL TRIGLYCERIDES (test code = 2232) 99 MG/DL HDL CHOLESTEROL (test code = 2220) 52 MG/DL CALC LDL CHOL (test code = 2237) 97 MG/DL RISK RATIO LDL/HDL (test cod e = 2238) 1.87 RATIO Toney RennerHEMOGLOBIN [id number] 00:00:00* Test Item Value Reference Range Interpretation Comme nts HEMOGLOBIN A1c (test code = 46804) 11.2 % Toney RennerCBC W/AUTO [id number] 00:00:00* Test Item Value Reference Range Interpretation [...] ABS NUCLEATED RBCS (test cod e = 69776) 0.00 K/UL Toney RennerCOMPREHENSIVE METABOLIC [id number] 00:00:00* Test Item Value Reference Range Interpretation Comme nts GLUCOSE (test code = 2217) 290 MG/DL BUN (test code = 2208) 16 MG/DL CREATININE (test code = 2214) 0.48 MG/DL eGFR (2020 CKD-EPI) (test code = 94208) 102 ML/MIN/1.73 CALC BUN/CREAT (test code = [...] code = 2219) 29 U/L Toney RennerLIPID [id number] 00:00:00* Test Item Value Reference Range Interpretation Comme nts CHOLESTEROL (test code = 2210) 168 MG/DL TRIGLYCERIDES (test code = 2232) 99 MG/DL HDL CHOLESTEROL (test code = 2220) 52 MG/DL CALC LDL CHOL (test code = 2237) 97 MG/DL RISK RATIO LDL/HDL (test cod e = 2238) 1.87 RATIO Toney RennerHEMOGLOBIN [id number] 00:00:00* Test Item Value Reference Range Interpretation Comme nts HEMOGLOBIN A1c (test code = 97190) 11.2 % Toney RennerCBC W/AUTO [id number] 00:00:00* Test Item Value Reference Range Interpretation [...] ABS NUCLEATED RBCS (test cod e = 47051) 0.00 K/UL Toney RennerCOMPREHENSIVE METABOLIC [id number] 00:00:00* Test Item Value Reference Range Interpretation Comme nts GLUCOSE (test code = 2217) 290 MG/DL BUN (test code = 2208) 16 MG/DL CREATININE (test code = 2214) 0.48 MG/DL eGFR (2020 CKD-EPI) (test code = 67607) 102 ML/MIN/1.73 CALC BUN/CREAT (test code = [...] code = 2219) 29 U/L Toney RennerLIPID [id number] 00:00:00* Test Item Value Reference Range Interpretation Comme nts CHOLESTEROL (test code = 2210) 168 MG/DL TRIGLYCERIDES (test code = 2232) 99 MG/DL HDL CHOLESTEROL (test code = 2220) 52 MG/DL CALC LDL CHOL (test code = 2237) 97 MG/DL RISK RATIO LDL/HDL (test cod e = 2238) 1.87 RATIO Toney RennerHEMOGLOBIN [id number] 00:00:00* Test Item Value Reference Range Interpretation Comme nts HEMOGLOBIN A1c (test code = 45452) 11.2 % Toney RennerCBC W/AUTO [id number] 00:00:00* Test Item Value Reference Range Interpretation [...] ABS NUCLEATED RBCS (test cod e = 04798) 0.00 K/UL Toney RennerCOMPREHENSIVE METABOLIC [id number] 00:00:00* Test Item Value Reference Range Interpretation Comme nts GLUCOSE (test code = 2217) 290 MG/DL BUN (test code = 2208) 16 MG/DL CREATININE (test code = 2214) 0.48 MG/DL eGFR (2020 CKD-EPI) (test code = 93786) 102 ML/MIN/1.73 CALC BUN/CREAT (test code = [...] code = 2219) 29 U/L Toney RennerLIPID [id number] 00:00:00* Test Item Value Reference Range Interpretation Comme nts CHOLESTEROL (test code = 2210) 168 MG/DL TRIGLYCERIDES (test code = 2232) 99 MG/DL HDL CHOLESTEROL (test code = 2220) 52 MG/DL CALC LDL CHOL (test code = 2237) 97 MG/DL RISK RATIO LDL/HDL (test cod e = 2238) 1.87 RATIO Toney RennerHEMOGLOBIN [id number] 00:00:00* Test Item Value Reference Range Interpretation Comme nts HEMOGLOBIN A1c (test code = 49891) 11.2 % Toney RennerCBC W/AUTO [id number] 00:00:00* Test Item Value Reference Range Interpretation [...] ABS NUCLEATED RBCS (test cod e = 95647) 0.00 K/UL Toney F ZurdoCOMPREHENSIVE METABOLIC [id number] 00:00:00* Test Item Value Reference Range Interpretation Comme nts GLUCOSE (test code = 2217) 290 MG/DL BUN (test code = 2208) 16 MG/DL CREATININE (test code = 2214) 0.48 MG/DL eGFR (2020 CKD-EPI) (test code = 42684) 102 ML/MIN/1.73 CALC BUN/CREAT (test code = [...] code = 2219) 29 U/L Toney RennerLIPID [id number] 00:00:00* Test Item Value Reference Range Interpretation Comme nts CHOLESTEROL (test code = 2210) 168 MG/DL TRIGLYCERIDES (test code = 2232) 99 MG/DL HDL CHOLESTEROL (test code = 2220) 52 MG/DL CALC LDL CHOL (test code = 2237) 97 MG/DL RISK RATIO LDL/HDL (test cod e = 2238) 1.87 RATIO Toney RennerHEMOGLOBIN [id number] 00:00:00* Test Item Value Reference Range Interpretation Comme nts HEMOGLOBIN A1c (test code = 35040) 11.2 % Toney RennerCBC W/AUTO [id number] 00:00:00* Test Item Value Reference Range Interpretation [...] ABS NUCLEATED RBCS (test cod e = 04091) 0.00 K/UL Toney RennerCOMPREHENSIVE METABOLIC [id number] 00:00:00* Test Item Value Reference Range Interpretation Comme nts GLUCOSE (test code = 2217) 290 MG/DL BUN (test code = 2208) 16 MG/DL CREATININE (test code = 2214) 0.48 MG/DL eGFR (2020 CKD-EPI) (test code = 87251) 102 ML/MIN/1.73 CALC BUN/CREAT (test code = [...] code = 2219) 29 U/L Toney RennerLIPID [id number] 00:00:00* Test Item Value Reference Range Interpretation Comme nts CHOLESTEROL (test code = 2210) 168 MG/DL TRIGLYCERIDES (test code = 2232) 99 MG/DL HDL CHOLESTEROL (test code = 2220) 52 MG/DL CALC LDL CHOL (test code = 2237) 97 MG/DL RISK RATIO LDL/HDL (test cod e = 2238) 1.87 RATIO Toney RennerHEMOGLOBIN [id number] 00:00:00* Test Item Value Reference Range Interpretation Comme nts HEMOGLOBIN A1c (test code = 27081) 11.2 % Toney RennerCBC W/AUTO [id number] 00:00:00* Test Item Value Reference Range Interpretation [...] ABS NUCLEATED RBCS (test cod e = 97897) 0.00 K/UL COMPREHENSIVE METABOLIC [id number] 00:00:00* Test Item Value Reference Range Interpretation Comme nts GLUCOSE (test code = 2217) 290 MG/DL BUN (test code = 2208) 16 MG/DL CREATININE (test code = 2214) 0.48 MG/DL eGFR (2020 CKD-EPI) (test code = 97213) 102 ML/MIN/1.73 CALC BUN/CREAT (test code = [...] (test code = 2219) 29 U/L LIPID [id number] 00:00:00* Test Item Value Reference Range Interpretation Comme nts CHOLESTEROL (test code = 2210) 168 MG/DL TRIGLYCERIDES (test code = 2232) 99 MG/DL HDL CHOLESTEROL (test code = 2220) 52 MG/DL CALC LDL CHOL (test code = 2237) 97 MG/DL RISK RATIO LDL/HDL (test cod e = 2238) 1.87 RATIO HEMOGLOBIN [id number] 00:00:00* Test Item Value Reference Range Interpretation Comme nts HEMOGLOBIN A1c (test code = 67457) 11.2 % CBC W/AUTO [id number] 00:00:00* Test Item Value Reference Range Interpretation [...] ABS NUCLEATED RBCS (test cod e = 73222) 0.00 K/UL COMPREHENSIVE METABOLIC [id number] 00:00:00* Test Item Value Reference Range Interpretation Comme nts GLUCOSE (test code = 2217) 290 MG/DL BUN (test code = 2208) 16 MG/DL CREATININE (test code = 2214) 0.48 MG/DL eGFR (2020 CKD-EPI) (test code = 93327) 102 ML/MIN/1.73 CALC BUN/CREAT (test code = [...] (test code = 2219) 29 U/L LIPID [id number] 00:00:00* Test Item Value Reference Range Interpretation Comme nts CHOLESTEROL (test code = 2210) 168 MG/DL TRIGLYCERIDES (test code = 2232) 99 MG/DL HDL CHOLESTEROL (test code = 2220) 52 MG/DL CALC LDL CHOL (test code = 2237) 97 MG/DL RISK RATIO LDL/HDL (test cod e = 2238) 1.87 RATIO HEMOGLOBIN [id number] 00:00:00* Test Item Value Reference Range Interpretation Comme nts HEMOGLOBIN A1c (test code = 83485) 11.2 % CBC W/AUTO [id number] 00:00:00* Test Item Value Reference Range Interpretation [...] ABS NUCLEATED RBCS (test cod e = 90582) 0.00 K/UL COMPREHENSIVE METABOLIC [id number] 00:00:00* Test Item Value Reference Range Interpretation Comme nts GLUCOSE (test code = 2217) 290 MG/DL BUN (test code = 2208) 16 MG/DL CREATININE (test code = 2214) 0.48 MG/DL eGFR (2020 CKD-EPI) (test code = 78624) 102 ML/MIN/1.73 CALC BUN/CREAT (test code = [...] (test code = 2219) 29 U/L LIPID [id number] 00:00:00* Test Item Value Reference Range Interpretation Comme nts CHOLESTEROL (test code = 2210) 168 MG/DL TRIGLYCERIDES (test code = 2232) 99 MG/DL HDL CHOLESTEROL (test code = 2220) 52 MG/DL CALC LDL CHOL (test code = 2237) 97 MG/DL RISK RATIO LDL/HDL (test cod e = 2238) 1.87 RATIO HEMOGLOBIN [id number] 00:00:00* Test Item Value Reference Range Interpretation Comme nts HEMOGLOBIN A1c (test code = 74119) 11.2 % CBC W/AUTO [id number] 00:00:00* Test Item Value Reference Range Interpretation [...] ABS NUCLEATED RBCS (test cod e = 58466) 0.00 K/UL COMPREHENSIVE METABOLIC [id number] 00:00:00* Test Item Value Reference Range Interpretation Comme nts GLUCOSE (test code = 2217) 290 MG/DL BUN (test code = 2208) 16 MG/DL CREATININE (test code = 2214) 0.48 MG/DL eGFR (2020 CKD-EPI) (test code = 56500) 102 ML/MIN/1.73 CALC BUN/CREAT (test code = [...] (test code = 2219) 29 U/L LIPID [id number] 00:00:00* Test Item Value Reference Range Interpretation Comme nts CHOLESTEROL (test code = 2210) 168 MG/DL TRIGLYCERIDES (test code = 2232) 99 MG/DL HDL CHOLESTEROL (test code = 2220) 52 MG/DL CALC LDL CHOL (test code = 2237) 97 MG/DL RISK RATIO LDL/HDL (test cod e = 2238) 1.87 RATIO HEMOGLOBIN [id number] 00:00:00* Test Item Value Reference Range Interpretation Comme nts HEMOGLOBIN A1c (test code = 25210) 11.2 % CBC W/AUTO [id number] 00:00:00* Test Item Value Reference Range Interpretation [...] ABS NUCLEATED RBCS (test cod e = 22663) 0.00 K/UL COMPREHENSIVE METABOLIC [id number] 00:00:00* Test Item Value Reference Range Interpretation Comme nts GLUCOSE (test code = 2217) 290 MG/DL BUN (test code = 2208) 16 MG/DL CREATININE (test code = 2214) 0.48 MG/DL eGFR (2020 CKD-EPI) (test code = 78300) 102 ML/MIN/1.73 CALC BUN/CREAT (test code = [...] (test code = 2219) 29 U/L LIPID [id number] 00:00:00* Test Item Value Reference Range Interpretation Comme nts CHOLESTEROL (test code = 2210) 168 MG/DL TRIGLYCERIDES (test code = 2232) 99 MG/DL HDL CHOLESTEROL (test code = 2220) 52 MG/DL CALC LDL CHOL (test code = 2237) 97 MG/DL RISK RATIO LDL/HDL (test cod e = 2238) 1.87 RATIO CBC W/AUTO [id number] 00:00:00* Test Item Value Reference Range Interpretation [...] ABS NUCLEATED RBCS (test cod e = 35159) 0.00 K/UL COMPREHENSIVE METABOLIC [id number] 00:00:00* Test Item Value Reference Range Interpretation Comme nts GLUCOSE (test code = 2217) 290 MG/DL BUN (test code = 2208) 16 MG/DL CREATININE (test code = 2214) 0.48 MG/DL eGFR (2020 CKD-EPI) (test code = 71874) 102 ML/MIN/1.73 CALC BUN/CREAT (test code = [...] (test code = 2219) 29 U/L HEMOGLOBIN [id number] 00:00:00* Test Item Value Reference Range Interpretation Comme nts HEMOGLOBIN A1c (test code = 18794) 11.2 % LIPID [id number] 00:00:00* Test Item Value Reference Range Interpretation Comme nts CHOLESTEROL (test code = 2210) 168 MG/DL TRIGLYCERIDES (test code = 2232) 99 MG/DL HDL CHOLESTEROL (test code = 2220) 52 MG/DL CALC LDL CHOL (test code = 2237) 97 MG/DL RISK RATIO LDL/HDL (test cod e = 2238) 1.87 RATIO HEMOGLOBIN [id number] 00:00:00* Test Item Value Reference Range Interpretation Comme nts HEMOGLOBIN A1c (test code = 52893) 11.2 % CBC W/AUTO [id number] 00:00:00* Test Item Value Reference Range Interpretation [...] ABS NUCLEATED RBCS (test cod e = 51839) 0.00 K/UL COMPREHENSIVE METABOLIC [id number] 00:00:00* Test Item Value Reference Range Interpretation Comme nts GLUCOSE (test code = 2217) 290 MG/DL BUN (test code = 2208) 16 MG/DL CREATININE (test code = 2214) 0.48 MG/DL eGFR (2020 CKD-EPI) (test code = 15171) 102 ML/MIN/1.73 CALC BUN/CREAT (test code = [...] (test code = 2219) 29 U/L LIPID [id number] 00:00:00* Test Item Value Reference Range Interpretation Comme nts CHOLESTEROL (test code = 2210) 168 MG/DL TRIGLYCERIDES (test code = 2232) 99 MG/DL HDL CHOLESTEROL (test code = 2220) 52 MG/DL CALC LDL CHOL (test code = 2237) 97 MG/DL RISK RATIO LDL/HDL (test cod e = 2238) 1.87 RATIO HEMOGLOBIN [id number] 00:00:00* Test Item Value Reference Range Interpretation Comme nts HEMOGLOBIN A1c (test code = 40448) 11.2 % CBC W/AUTO [id number] 00:00:00* Test Item Value Reference Range Interpretation [...] ABS NUCLEATED RBCS (test cod e = 86201) 0.00 K/UL COMPREHENSIVE METABOLIC [id number] 00:00:00* Test Item Value Reference Range Interpretation Comme nts GLUCOSE (test code = 2217) 290 MG/DL BUN (test code = 2208) 16 MG/DL CREATININE (test code = 2214) 0.48 MG/DL eGFR (2020 CKD-EPI) (test code = 93149) 102 ML/MIN/1.73 CALC BUN/CREAT (test code = [...] (test code = 2219) 29 U/L LIPID [id number] 00:00:00* Test Item Value Reference Range Interpretation Comme nts CHOLESTEROL (test code = 2210) 168 MG/DL TRIGLYCERIDES (test code = 2232) 99 MG/DL HDL CHOLESTEROL (test code = 2220) 52 MG/DL CALC LDL CHOL (test code = 2237) 97 MG/DL RISK RATIO LDL/HDL (test cod e = 2238) 1.87 RATIO HEMOGLOBIN [id number] 00:00:00* Test Item Value Reference Range Interpretation Comme nts HEMOGLOBIN A1c (test code = 31406) 11.2 % CBC W/AUTO [id number] 00:00:00* Test Item Value Reference Range Interpretation [...] ABS NUCLEATED RBCS (test cod e = 88520) 0.00 K/UL COMPREHENSIVE METABOLIC [id number] 00:00:00* Test Item Value Reference Range Interpretation Comme nts GLUCOSE (test code = 2217) 290 MG/DL BUN (test code = 2208) 16 MG/DL CREATININE (test code = 2214) 0.48 MG/DL eGFR (2020 CKD-EPI) (test code = 83436) 102 ML/MIN/1.73 CALC BUN/CREAT (test code = [...] (test code = 2219) 29 U/L LIPID [id number] 00:00:00* Test Item Value Reference Range Interpretation Comme nts CHOLESTEROL (test code = 2210) 168 MG/DL TRIGLYCERIDES (test code = 2232) 99 MG/DL HDL CHOLESTEROL (test code = 2220) 52 MG/DL CALC LDL CHOL (test code = 2237) 97 MG/DL RISK RATIO LDL/HDL (test cod e = 2238) 1.87 RATIO HEMOGLOBIN [id number] 00:00:00* Test Item Value Reference Range Interpretation Comme nts HEMOGLOBIN A1c (test code = 91759) 11.2 % COMPREHENSIVE METABOLIC [id number] 00:00:00* Test Item Value Reference Range Interpretation Comme nts GLUCOSE (test code = 2217) 269 MG/DL BUN (test code = 2208) 16 MG/DL CREATININE (test code = 2214) 0.58 MG/DL eGFR (2020 CKD-EPI) (test co de = 40548) 97 ML/MIN/1.73 CALC BUN/CREAT (test code = [...] code = 2219) 32 U/L Toney RennerLIPID [id number] 00:00:00* Test Item Value Reference Range Interpretation Comme nts CHOLESTEROL (test code = 2210) 225 MG/DL TRIGLYCERIDES (test code = 2232) 247 MG/DL HDL CHOLESTEROL (test code = 2220) 44 MG/DL CALC LDL CHOL (test code = 2237) 141 MG/DL RISK RATIO LDL/HDL (test cod e = 2238) 3.20 RATIO Toney RennerHEMOGLOBIN [id number] 00:00:00* Test Item Value Reference Range Interpretation Comme nts HEMOGLOBIN A1c (test code = 58332) 8.6 % Toney RennerCOMPREHENSIVE METABOLIC [id number] 00:00:00* Test Item Value Reference Range Interpretation Comme nts GLUCOSE (test code = 2217) 269 MG/DL BUN (test code = 2208) 16 MG/DL CREATININE (test code = 2214) 0.58 MG/DL eGFR (2020 CKD-EPI) (test co de = 01752) 97 ML/MIN/1.73 CALC BUN/CREAT (test code = [...] = 2219) 32 U/L Toney Cowan AustinLIPID [id number] 00:00:00* Test Item Value Reference Range Interpretation Comme nts CHOLESTEROL (test code = 2210) 225 MG/DL TRIGLYCERIDES (test code = 2232) 247 MG/DL HDL CHOLESTEROL (test code = 2220) 44 MG/DL CALC LDL CHOL (test code = 2237) 141 MG/DL RISK RATIO LDL/HDL (test cod e = 2238) 3.20 RATIO Toney RennerHEMOGLOBIN [id number] 00:00:00* Test Item Value Reference Range Interpretation Comme nts HEMOGLOBIN A1c (test code = 69147) 8.6 % Toney Cowan AustinLIPID [id number] 00:00:00* Test Item Value Reference Range Interpretation Comme nts CHOLESTEROL (test code = 2210) 225 MG/DL TRIGLYCERIDES (test code = 2232) 247 MG/DL HDL CHOLESTEROL (test code = 2220) 44 MG/DL CALC LDL CHOL (test code = 2237) 141 MG/DL RISK RATIO LDL/HDL (test cod e = 2238) 3.20 RATIO Toney RennerCOMPREHENSIVE METABOLIC [id number] 00:00:00* Test Item Value Reference Range Interpretation Comme nts GLUCOSE (test code = 2217) 269 MG/DL BUN (test code = 2208) 16 MG/DL CREATININE (test code = 2214) 0.58 MG/DL eGFR (2020 CKD-EPI) (test co de = 34402) 97 ML/MIN/1.73 CALC BUN/CREAT (test code = [...] = 2219) 32 U/L Toney Cowan AustinLIPID [id number] 00:00:00* Test Item Value Reference Range Interpretation Comme nts CHOLESTEROL (test code = 2210) 225 MG/DL TRIGLYCERIDES (test code = 2232) 247 MG/DL HDL CHOLESTEROL (test code = 2220) 44 MG/DL CALC LDL CHOL (test code = 2237) 141 MG/DL RISK RATIO LDL/HDL (test cod e = 2238) 3.20 RATIO Toney Cowan AustinHEMOGLOBIN [id number] 00:00:00* Test Item Value Reference Range Interpretation Comme nts HEMOGLOBIN A1c (test code = 44911) 8.6 % Toney Cowan AustinHEMOGLOBIN [id number] 00:00:00* Test Item Value Reference Range Interpretation Comme nts HEMOGLOBIN A1c (test code = 77529) 8.6 % Toney RennerCOMPREHENSIVE METABOLIC [id number] 00:00:00* Test Item Value Reference Range Interpretation Comme nts GLUCOSE (test code = 2217) 269 MG/DL BUN (test code = 2208) 16 MG/DL CREATININE (test code = 2214) 0.58 MG/DL eGFR (2020 CKD-EPI) (test co de = 97648) 97 ML/MIN/1.73 CALC BUN/CREAT (test code = [...] = 2219) 32 U/L Toney Cowan AustinLIPID [id number] 00:00:00* Test Item Value Reference Range Interpretation Comme nts CHOLESTEROL (test code = 2210) 225 MG/DL TRIGLYCERIDES (test code = 2232) 247 MG/DL HDL CHOLESTEROL (test code = 2220) 44 MG/DL CALC LDL CHOL (test code = 2237) 141 MG/DL RISK RATIO LDL/HDL (test cod e = 2238) 3.20 RATIO Toney RennerHEMOGLOBIN [id number] 00:00:00* Test Item Value Reference Range Interpretation Comme nts HEMOGLOBIN A1c (test code = 95296) 8.6 % Toney RennerCOMPREHENSIVE METABOLIC [id number] 00:00:00* Test Item Value Reference Range Interpretation Comme nts GLUCOSE (test code = 2217) 269 MG/DL BUN (test code = 2208) 16 MG/DL CREATININE (test code = 2214) 0.58 MG/DL eGFR (2020 CKD-EPI) (test co de = 89633) 97 ML/MIN/1.73 CALC BUN/CREAT (test code = [...] = 2219) 32 U/L Toney Cowan AustinLIPID [id number] 00:00:00* Test Item Value Reference Range Interpretation Comme nts CHOLESTEROL (test code = 2210) 225 MG/DL TRIGLYCERIDES (test code = 2232) 247 MG/DL HDL CHOLESTEROL (test code = 2220) 44 MG/DL CALC LDL CHOL (test code = 2237) 141 MG/DL RISK RATIO LDL/HDL (test cod e = 2238) 3.20 RATIO Toney RennerHEMOGLOBIN [id number] 00:00:00* Test Item Value Reference Range Interpretation Comme nts HEMOGLOBIN A1c (test code = 33218) 8.6 % Toney RennerCOMPREHENSIVE METABOLIC [id number] 00:00:00* Test Item Value Reference Range Interpretation Comme nts GLUCOSE (test code = 2217) 269 MG/DL BUN (test code = 2208) 16 MG/DL CREATININE (test code = 2214) 0.58 MG/DL eGFR (2020 CKD-EPI) (test co de = 98992) 97 ML/MIN/1.73 CALC BUN/CREAT (test code = [...] = 2219) 32 U/L Toney Cowan AustinLIPID [id number] 00:00:00* Test Item Value Reference Range Interpretation Comme nts CHOLESTEROL (test code = 2210) 225 MG/DL TRIGLYCERIDES (test code = 2232) 247 MG/DL HDL CHOLESTEROL (test code = 2220) 44 MG/DL CALC LDL CHOL (test code = 2237) 141 MG/DL RISK RATIO LDL/HDL (test cod e = 2238) 3.20 RATIO Toney Cowan AustinHEMOGLOBIN [id number] 00:00:00* Test Item Value Reference Range Interpretation Comme nts HEMOGLOBIN A1c (test code = 59756) 8.6 % Toney Cowan AustinCOMPREHENSIVE METABOLIC [id number] 00:00:00* Test Item Value Reference Range Interpretation Comme nts GLUCOSE (test code = 2217) 269 MG/DL BUN (test code = 2208) 16 MG/DL CREATININE (test code = 2214) 0.58 MG/DL eGFR (2020 CKD-EPI) (test co de = 48495) 97 ML/MIN/1.73 CALC BUN/CREAT (test code = [...] code = 2219) 32 U/L Toney Cowan SpringerLIPID [id number] 00:00:00* Test Item Value Reference Range Interpretation Comme nts CHOLESTEROL (test code = 2210) 225 MG/DL TRIGLYCERIDES (test code = 2232) 247 MG/DL HDL CHOLESTEROL (test code = 2220) 44 MG/DL CALC LDL CHOL (test code = 2237) 141 MG/DL RISK RATIO LDL/HDL (test cod e = 2238) 3.20 RATIO Toney RennerHEMOGLOBIN [id number] 00:00:00* Test Item Value Reference Range Interpretation Comme nts HEMOGLOBIN A1c (test code = 34540) 8.6 % Toney Cowan ZurdoCOMPREHENSIVE METABOLIC [id number] 00:00:00* Test Item Value Reference Range Interpretation Comme nts GLUCOSE (test code = 2217) 269 MG/DL BUN (test code = 2208) 16 MG/DL CREATININE (test code = 2214) 0.58 MG/DL eGFR (2020 CKD-EPI) (test co de = 64898) 97 ML/MIN/1.73 CALC BUN/CREAT (test code = [...] code = 2219) 32 U/L Toney RennerLIPID [id number] 00:00:00* Test Item Value Reference Range Interpretation Comme nts CHOLESTEROL (test code = 2210) 225 MG/DL TRIGLYCERIDES (test code = 2232) 247 MG/DL HDL CHOLESTEROL (test code = 2220) 44 MG/DL CALC LDL CHOL (test code = 2237) 141 MG/DL RISK RATIO LDL/HDL (test cod e = 2238) 3.20 RATIO Toney RennerHEMOGLOBIN [id number] 00:00:00* Test Item Value Reference Range Interpretation Comme nts HEMOGLOBIN A1c (test code = 96385) 8.6 % Toney RennerCOMPREHENSIVE METABOLIC [id number] 00:00:00* Test Item Value Reference Range Interpretation Comme nts GLUCOSE (test code = 2217) 269 MG/DL BUN (test code = 2208) 16 MG/DL CREATININE (test code = 2214) 0.58 MG/DL eGFR (2020 CKD-EPI) (test co de = 49663) 97 ML/MIN/1.73 CALC BUN/CREAT (test code = [...] = 2219) 32 U/L Toney RennerCOMPREHENSIVE METABOLIC [id number] 00:00:00* Test Item Value Reference Range Interpretation Comme nts GLUCOSE (test code = 2217) 269 MG/DL BUN (test code = 2208) 16 MG/DL CREATININE (test code = 2214) 0.58 MG/DL eGFR (2020 CKD-EPI) (test co de = 11658) 97 ML/MIN/1.73 CALC BUN/CREAT (test code = [...] (test code = 2219) 32 U/L LIPID [id number] 00:00:00* Test Item Value Reference Range Interpretation Comme nts CHOLESTEROL (test code = 2210) 225 MG/DL TRIGLYCERIDES (test code = 2232) 247 MG/DL HDL CHOLESTEROL (test code = 2220) 44 MG/DL CALC LDL CHOL (test code = 2237) 141 MG/DL RISK RATIO LDL/HDL (test cod e = 2238) 3.20 RATIO HEMOGLOBIN [id number] 00:00:00* Test Item Value Reference Range Interpretation Comme nts HEMOGLOBIN A1c (test code = 55210) 8.6 % COMPREHENSIVE METABOLIC [id number] 00:00:00* Test Item Value Reference Range Interpretation Comme nts GLUCOSE (test code = 2217) 269 MG/DL BUN (test code = 2208) 16 MG/DL CREATININE (test code = 2214) 0.58 MG/DL eGFR (2020 CKD-EPI) (test co de = 29629) 97 ML/MIN/1.73 CALC BUN/CREAT (test code = [...] (test code = 2219) 32 U/L LIPID [id number] 00:00:00* Test Item Value Reference Range Interpretation Comme nts CHOLESTEROL (test code = 2210) 225 MG/DL TRIGLYCERIDES (test code = 2232) 247 MG/DL HDL CHOLESTEROL (test code = 2220) 44 MG/DL CALC LDL CHOL (test code = 2237) 141 MG/DL RISK RATIO LDL/HDL (test cod e = 2238) 3.20 RATIO HEMOGLOBIN [id number] 00:00:00* Test Item Value Reference Range Interpretation Comme nts HEMOGLOBIN A1c (test code = 96841) 8.6 % COMPREHENSIVE METABOLIC [id number] 00:00:00* Test Item Value Reference Range Interpretation Comme nts GLUCOSE (test code = 2217) 269 MG/DL BUN (test code = 2208) 16 MG/DL CREATININE (test code = 2214) 0.58 MG/DL eGFR (2020 CKD-EPI) (test co de = 64165) 97 ML/MIN/1.73 CALC BUN/CREAT (test code = [...] (test code = 2219) 32 U/L LIPID [id number] 00:00:00* Test Item Value Reference Range Interpretation Comme nts CHOLESTEROL (test code = 2210) 225 MG/DL TRIGLYCERIDES (test code = 2232) 247 MG/DL HDL CHOLESTEROL (test code = 2220) 44 MG/DL CALC LDL CHOL (test code = 2237) 141 MG/DL RISK RATIO LDL/HDL (test cod e = 2238) 3.20 RATIO HEMOGLOBIN [id number] 00:00:00* Test Item Value Reference Range Interpretation Comme nts HEMOGLOBIN A1c (test code = 67871) 8.6 % COMPREHENSIVE METABOLIC [id number] 00:00:00* Test Item Value Reference Range Interpretation Comme nts GLUCOSE (test code = 2217) 269 MG/DL BUN (test code = 8) 16 MG/DL CREATININE (test code = 2214) 0.58 MG/DL eGFR (2020 CKD-EPI) (test co de = 75300) 97 ML/MIN/1.73 CALC BUN/CREAT (test code = [...] (test code = 2219) 32 U/L LIPID [id number] 00:00:00* Test Item Value Reference Range Interpretation Comme nts CHOLESTEROL (test code = 2210) 225 MG/DL TRIGLYCERIDES (test code = 2232) 247 MG/DL HDL CHOLESTEROL (test code = 2220) 44 MG/DL CALC LDL CHOL (test code = 2237) 141 MG/DL RISK RATIO LDL/HDL (test cod e = 2238) 3.20 RATIO HEMOGLOBIN [id number] 00:00:00* Test Item Value Reference Range Interpretation Comme nts HEMOGLOBIN A1c (test code = 25200) 8.6 % COMPREHENSIVE METABOLIC [id number] 00:00:00* Test Item Value Reference Range Interpretation Comme nts GLUCOSE (test code = 2217) 269 MG/DL BUN (test code = 2208) 16 MG/DL CREATININE (test code = 2214) 0.58 MG/DL eGFR (2020 CKD-EPI) (test co de = 34268) 97 ML/MIN/1.73 CALC BUN/CREAT (test code = [...] (test code = 2219) 32 U/L LIPID [id number] 00:00:00* Test Item Value Reference Range Interpretation Comme nts CHOLESTEROL (test code = 2210) 225 MG/DL TRIGLYCERIDES (test code = 2232) 247 MG/DL HDL CHOLESTEROL (test code = 2220) 44 MG/DL CALC LDL CHOL (test code = 2237) 141 MG/DL RISK RATIO LDL/HDL (test cod e = 2238) 3.20 RATIO HEMOGLOBIN [id number] 00:00:00* Test Item Value Reference Range Interpretation Comme nts HEMOGLOBIN A1c (test code = 29121) 8.6 % COMPREHENSIVE METABOLIC [id number] 00:00:00* Test Item Value Reference Range Interpretation Comme nts GLUCOSE (test code = 2217) 269 MG/DL BUN (test code = 2208) 16 MG/DL CREATININE (test code = 2214) 0.58 MG/DL eGFR (2020 CKD-EPI) (test co de = 68703) 97 ML/MIN/1.73 CALC BUN/CREAT (test code = [...] (test code = 2219) 32 U/L LIPID [id number] 00:00:00* Test Item Value Reference Range Interpretation Comme nts CHOLESTEROL (test code = 2210) 225 MG/DL TRIGLYCERIDES (test code = 2232) 247 MG/DL HDL CHOLESTEROL (test code = 2220) 44 MG/DL CALC LDL CHOL (test code = 2237) 141 MG/DL RISK RATIO LDL/HDL (test cod e = 2238) 3.20 RATIO HEMOGLOBIN [id number] 00:00:00* Test Item Value Reference Range Interpretation Comme nts HEMOGLOBIN A1c (test code = 62206) 8.6 % COMPREHENSIVE METABOLIC [id number] 00:00:00* Test Item Value Reference Range Interpretation Comme nts GLUCOSE (test code = 2217) 269 MG/DL BUN (test code = 2208) 16 MG/DL CREATININE (test code = 2214) 0.58 MG/DL eGFR (2020 CKD-EPI) (test co de = 64322) 97 ML/MIN/1.73 CALC BUN/CREAT (test code = [...] (test code = 2219) 32 U/L LIPID [id number] 00:00:00* Test Item Value Reference Range Interpretation Comme nts CHOLESTEROL (test code = 2210) 225 MG/DL TRIGLYCERIDES (test code = 2232) 247 MG/DL HDL CHOLESTEROL (test code = 2220) 44 MG/DL CALC LDL CHOL (test code = 2237) 141 MG/DL RISK RATIO LDL/HDL (test cod e = 2238) 3.20 RATIO HEMOGLOBIN [id number] 00:00:00* Test Item Value Reference Range Interpretation Comme nts HEMOGLOBIN A1c (test code = 71594) 8.6 % COMPREHENSIVE METABOLIC [id number] 00:00:00* Test Item Value Reference Range Interpretation Comme nts GLUCOSE (test code = 2217) 269 MG/DL BUN (test code = 2208) 16 MG/DL CREATININE (test code = 2214) 0.58 MG/DL eGFR (2020 CKD-EPI) (test co de = 20489) 97 ML/MIN/1.73 CALC BUN/CREAT (test code = [...] (test code = 2219) 32 U/L LIPID [id number] 00:00:00* Test Item Value Reference Range Interpretation Comme nts CHOLESTEROL (test code = 2210) 225 MG/DL TRIGLYCERIDES (test code = 2232) 247 MG/DL HDL CHOLESTEROL (test code = 2220) 44 MG/DL CALC LDL CHOL (test code = 2237) 141 MG/DL RISK RATIO LDL/HDL (test cod e = 2238) 3.20 RATIO HEMOGLOBIN [id number] 00:00:00* Test Item Value Reference Range Interpretation Comme nts HEMOGLOBIN A1c (test code = 22516) 8.6 % COMPREHENSIVE METABOLIC [id number] 00:00:00* Test Item Value Reference Range Interpretation Comme nts GLUCOSE (test code = 2217) 269 MG/DL BUN (test code = 2208) 16 MG/DL CREATININE (test code = 2214) 0.58 MG/DL eGFR (2020 CKD-EPI) (test co de = 18768) 97 ML/MIN/1.73 CALC BUN/CREAT (test code = [...] (test code = 2219) 32 U/L LIPID [id number] 00:00:00* Test Item Value Reference Range Interpretation Comme nts CHOLESTEROL (test code = 2210) 225 MG/DL TRIGLYCERIDES (test code = 2232) 247 MG/DL HDL CHOLESTEROL (test code = 2220) 44 MG/DL CALC LDL CHOL (test code = 223) 141 MG/DL RISK RATIO LDL/HDL (test cod e = 223) 3.20 RATIO HEMOGLOBIN [id number] 00:00:00* Test Item Value Reference Range Interpretation Comme nts HEMOGLOBIN A1c (test code = 46886) 8.6 % COMPREHENSIVE METABOLIC [id number] 00:00:00* Test Item Value Reference Range Interpretation Comme nts GLUCOSE (test code = 2217) 136 MG/DL BUN (test code = 2207) 16 MG/DL CREATININE (test code = 2214) 0.55 MG/DL eGFR AMER. (test cod e = 38620) 111 ML/MIN/1.73 eGFR NON- AMER. (test code = 40767) 96 ML/MIN/1.73 CALC BUN/CREAT (test code = [...] code = 2219) 25 U/L Toney RennerLIPID [id number] 00:00:00* Test Item Value Reference Range Interpretation Comme nts CHOLESTEROL (test code = 2210) 146 MG/DL TRIGLYCERIDES (test code = 2232) 60 MG/DL HDL CHOLESTEROL (test code = 2220) 47 MG/DL CALC LDL CHOL (test code = 2237) 85 MG/DL RISK RATIO LDL/HDL (test cod e = 2238) 1.81 RATIO Toney RennerHEMOGLOBIN [id number] 00:00:00* Test Item Value Reference Range Interpretation Comme nts HEMOGLOBIN A1c (test code = 00297) 7.9 % Toney RennerCOMPREHENSIVE METABOLIC [id number] 00:00:00* Test Item Value Reference Range Interpretation Comme nts GLUCOSE (test code = 2217) 136 MG/DL BUN (test code = 2208) 16 MG/DL CREATININE (test code = 2214) 0.55 MG/DL eGFR AMER. (test cod e = 23510) 111 ML/MIN/1.73 eGFR NON- AMER. (test code = 88707) 96 ML/MIN/1.73 CALC BUN/CREAT (test code = [...] (test code = 2219) 25 U/L Toney RennerCOMPREHENSIVE METABOLIC [id number] 00:00:00* Test Item Value Reference Range Interpretation Comme nts GLUCOSE (test code = 2217) 136 MG/DL BUN (test code = 2208) 16 MG/DL CREATININE (test code = 2214) 0.55 MG/DL eGFR AMER. (test cod e = 35218) 111 ML/MIN/1.73 eGFR NON- AMER. (test code = 32313) 96 ML/MIN/1.73 CALC BUN/CREAT (test code = [...] code = 2219) 25 U/L Toney RennerLIPID [id number] 00:00:00* Test Item Value Reference Range Interpretation Comme nts CHOLESTEROL (test code = 2210) 146 MG/DL TRIGLYCERIDES (test code = 2232) 60 MG/DL HDL CHOLESTEROL (test code = 2220) 47 MG/DL CALC LDL CHOL (test code = 2237) 85 MG/DL RISK RATIO LDL/HDL (test cod e = 2238) 1.81 RATIO Toney RennerHEMOGLOBIN [id number] 00:00:00* Test Item Value Reference Range Interpretation Comme nts HEMOGLOBIN A1c (test code = 84521) 7.9 % Toney RennerCOMPREHENSIVE METABOLIC [id number] 00:00:00* Test Item Value Reference Range Interpretation Comme nts GLUCOSE (test code = 7) 136 MG/DL BUN (test code = 2208) 16 MG/DL CREATININE (test code = 2214) 0.55 MG/DL eGFR AMER. (test cod e = 73024) 111 ML/MIN/1.73 eGFR NON- AMER. (test code = 73498) 96 ML/MIN/1.73 CALC BUN/CREAT (test code = [...] = 2219) 25 U/L Toney Cowan AustinLIPID [id number] 00:00:00* Test Item Value Reference Range Interpretation Comme nts CHOLESTEROL (test code = 2210) 146 MG/DL TRIGLYCERIDES (test code = 2232) 60 MG/DL HDL CHOLESTEROL (test code = 2220) 47 MG/DL CALC LDL CHOL (test code = 2237) 85 MG/DL RISK RATIO LDL/HDL (test cod e = 2238) 1.81 RATIO Toney Cowan AustinHEMOGLOBIN [id number] 00:00:00* Test Item Value Reference Range Interpretation Comme nts HEMOGLOBIN A1c (test code = 83405) 7.9 % Toney Cowan AustinLIPID [id number] 00:00:00* Test Item Value Reference Range Interpretation Comme nts CHOLESTEROL (test code = 2210) 146 MG/DL TRIGLYCERIDES (test code = 2232) 60 MG/DL HDL CHOLESTEROL (test code = 2220) 47 MG/DL CALC LDL CHOL (test code = 2237) 85 MG/DL RISK RATIO LDL/HDL (test cod e = 2238) 1.81 RATIO Toney Cowan AustinHEMOGLOBIN [id number] 00:00:00* Test Item Value Reference Range Interpretation Comme nts HEMOGLOBIN A1c (test code = 69907) 7.9 % Toney RennerCOMPREHENSIVE METABOLIC [id number] 00:00:00* Test Item Value Reference Range Interpretation Comme nts GLUCOSE (test code = 2217) 136 MG/DL BUN (test code = 2208) 16 MG/DL CREATININE (test code = 2214) 0.55 MG/DL eGFR AMER. (test cod e = 38305) 111 ML/MIN/1.73 eGFR NON- AMER. (test code = 63002) 96 ML/MIN/1.73 CALC BUN/CREAT (test code = [...] code = 2219) 25 U/L Toney RennerLIPID [id number] 00:00:00* Test Item Value Reference Range Interpretation Comme nts CHOLESTEROL (test code = 2210) 146 MG/DL TRIGLYCERIDES (test code = 2232) 60 MG/DL HDL CHOLESTEROL (test code = 2220) 47 MG/DL CALC LDL CHOL (test code = 2237) 85 MG/DL RISK RATIO LDL/HDL (test cod e = 2238) 1.81 RATIO Toney RennerHEMOGLOBIN [id number] 00:00:00* Test Item Value Reference Range Interpretation Comme nts HEMOGLOBIN A1c (test code = 93559) 7.9 % Toney RennerCOMPREHENSIVE METABOLIC [id number] 00:00:00* Test Item Value Reference Range Interpretation Comme nts GLUCOSE (test code = 2217) 136 MG/DL BUN (test code = 2208) 16 MG/DL CREATININE (test code = 2214) 0.55 MG/DL eGFR AMER. (test cod e = 90902) 111 ML/MIN/1.73 eGFR NON- AMER. (test code = 35227) 96 ML/MIN/1.73 CALC BUN/CREAT (test code = [...] code = 2219) 25 U/L Toney RennerLIPID [id number] 00:00:00* Test Item Value Reference Range Interpretation Comme nts CHOLESTEROL (test code = 2210) 146 MG/DL TRIGLYCERIDES (test code = 2232) 60 MG/DL HDL CHOLESTEROL (test code = 2220) 47 MG/DL CALC LDL CHOL (test code = 2237) 85 MG/DL RISK RATIO LDL/HDL (test cod e = 2238) 1.81 RATIO Toney RennerHEMOGLOBIN [id number] 00:00:00* Test Item Value Reference Range Interpretation Comme nts HEMOGLOBIN A1c (test code = 43303) 7.9 % Toney RennerCOMPREHENSIVE METABOLIC [id number] 00:00:00* Test Item Value Reference Range Interpretation Comme nts GLUCOSE (test code = 2217) 136 MG/DL BUN (test code = 2208) 16 MG/DL CREATININE (test code = 2214) 0.55 MG/DL eGFR AMER. (test cod e = 40776) 111 ML/MIN/1.73 eGFR NON- AMER. (test code = 76195) 96 ML/MIN/1.73 CALC BUN/CREAT (test code = [...] code = 2219) 25 U/L Toney RennerLIPID [id number] 00:00:00* Test Item Value Reference Range Interpretation Comme nts CHOLESTEROL (test code = 2210) 146 MG/DL TRIGLYCERIDES (test code = 2232) 60 MG/DL HDL CHOLESTEROL (test code = 2220) 47 MG/DL CALC LDL CHOL (test code = 2237) 85 MG/DL RISK RATIO LDL/HDL (test cod e = 2238) 1.81 RATIO Toney RennerHEMOGLOBIN [id number] 00:00:00* Test Item Value Reference Range Interpretation Comme nts HEMOGLOBIN A1c (test code = 94894) 7.9 % Toney RennerCOMPREHENSIVE METABOLIC [id number] 00:00:00* Test Item Value Reference Range Interpretation Comme nts GLUCOSE (test code = 2217) 136 MG/DL BUN (test code = 2208) 16 MG/DL CREATININE (test code = 2214) 0.55 MG/DL eGFR AMER. (test cod e = 22263) 111 ML/MIN/1.73 eGFR NON- AMER. (test code = 81259) 96 ML/MIN/1.73 CALC BUN/CREAT (test code = 2235) 29 RATIO SODIUM (test code = 2231) 143 MEQ/L POTASSIUM (test code = 2228) 4.3 MEQ/L CHLORIDE (test code = 2215) 104 MEQ/L CARBON DIOXIDE (test code = 2206) 25 MEQ/L CALCIUM (test code = 220) 9.7 [...] code = 2219) 25 U/L Toney RennerLIPID [id number] 00:00:00* Test Item Value Reference Range Interpretation Comme nts CHOLESTEROL (test code = 2210) 146 MG/DL TRIGLYCERIDES (test code = 2232) 60 MG/DL HDL CHOLESTEROL (test code = 2220) 47 MG/DL CALC LDL CHOL (test code = 2237) 85 MG/DL RISK RATIO LDL/HDL (test cod e = 2237) 1.81 RATIO Toney RennerHEMOGLOBIN [id number] 00:00:00* Test Item Value Reference Range Interpretation Comme nts HEMOGLOBIN A1c (test code = 13780) 7.9 % Toney RennerCOMPREHENSIVE METABOLIC [id number] 00:00:00* Test Item Value Reference Range Interpretation Comme nts GLUCOSE (test code = 7) 136 MG/DL BUN (test code = 8) 16 MG/DL CREATININE (test code = 2214) 0.55 MG/DL eGFR AMER. (test cod e = ) 111 ML/MIN/1.73 eGFR NON- AMER. (test code = 48862) 96 ML/MIN/1.73 CALC BUN/CREAT (test code = [...] code = 2219) 25 U/L Toney RennerLIPID [id number] 00:00:00* Test Item Value Reference Range Interpretation Comme nts CHOLESTEROL (test code = 2210) 146 MG/DL TRIGLYCERIDES (test code = 2232) 60 MG/DL HDL CHOLESTEROL (test code = 2220) 47 MG/DL CALC LDL CHOL (test code = 2237) 85 MG/DL RISK RATIO LDL/HDL (test cod e = 2238) 1.81 RATIO Toney RennerHEMOGLOBIN [id number] 00:00:00* Test Item Value Reference Range Interpretation Comme nts HEMOGLOBIN A1c (test code = 45547) 7.9 % Toney RennerCOMPREHENSIVE METABOLIC [id number] 00:00:00* Test Item Value Reference Range Interpretation Comme nts GLUCOSE (test code = 2217) 136 MG/DL BUN (test code = 2208) 16 MG/DL CREATININE (test code = 2214) 0.55 MG/DL eGFR AMER. (test cod e = 35075) 111 ML/MIN/1.73 eGFR NON- AMER. (test code = 26203) 96 ML/MIN/1.73 CALC BUN/CREAT (test code = [...] (test code = 2219) 25 U/L LIPID [id number] 00:00:00* Test Item Value Reference Range Interpretation Comme nts CHOLESTEROL (test code = 2210) 146 MG/DL TRIGLYCERIDES (test code = 2232) 60 MG/DL HDL CHOLESTEROL (test code = 2220) 47 MG/DL CALC LDL CHOL (test code = 2237) 85 MG/DL RISK RATIO LDL/HDL (test cod e = 2238) 1.81 RATIO HEMOGLOBIN [id number] 00:00:00* Test Item Value Reference Range Interpretation Comme nts HEMOGLOBIN A1c (test code = 80089) 7.9 % COMPREHENSIVE METABOLIC [id number] 00:00:00* Test Item Value Reference Range Interpretation Comme nts GLUCOSE (test code = 2217) 136 MG/DL BUN (test code = 2208) 16 MG/DL CREATININE (test code = 2214) 0.55 MG/DL eGFR AMER. (test cod e = 58439) 111 ML/MIN/1.73 eGFR NON- AMER. (test code = 50245) 96 ML/MIN/1.73 CALC BUN/CREAT (test code = [...] (test code = 2219) 25 U/L LIPID [id number] 00:00:00* Test Item Value Reference Range Interpretation Comme nts CHOLESTEROL (test code = 2210) 146 MG/DL TRIGLYCERIDES (test code = 2232) 60 MG/DL HDL CHOLESTEROL (test code = 2220) 47 MG/DL CALC LDL CHOL (test code = 2237) 85 MG/DL RISK RATIO LDL/HDL (test cod e = 2238) 1.81 RATIO HEMOGLOBIN [id number] 00:00:00* Test Item Value Reference Range Interpretation Comme nts HEMOGLOBIN A1c (test code = 29654) 7.9 % COMPREHENSIVE METABOLIC [id number] 00:00:00* Test Item Value Reference Range Interpretation Comme nts GLUCOSE (test code = 2217) 136 MG/DL BUN (test code = 2208) 16 MG/DL CREATININE (test code = 2214) 0.55 MG/DL eGFR AMER. (test cod e = 00884) 111 ML/MIN/1.73 eGFR NON- AMER. (test code = 43394) 96 ML/MIN/1.73 CALC BUN/CREAT (test code = [...] (test code = 2219) 25 U/L LIPID [id number] 00:00:00* Test Item Value Reference Range Interpretation Comme nts CHOLESTEROL (test code = 2210) 146 MG/DL TRIGLYCERIDES (test code = 2232) 60 MG/DL HDL CHOLESTEROL (test code = 2220) 47 MG/DL CALC LDL CHOL (test code = 2237) 85 MG/DL RISK RATIO LDL/HDL (test cod e = 2238) 1.81 RATIO HEMOGLOBIN [id number] 00:00:00* Test Item Value Reference Range Interpretation Comme nts HEMOGLOBIN A1c (test code = 62110) 7.9 % COMPREHENSIVE METABOLIC [id number] 00:00:00* Test Item Value Reference Range Interpretation Comme nts GLUCOSE (test code = 2217) 136 MG/DL BUN (test code = 2208) 16 MG/DL CREATININE (test code = 2214) 0.55 MG/DL eGFR AMER. (test cod e = 59483) 111 ML/MIN/1.73 eGFR NON- AMER. (test code = 14820) 96 ML/MIN/1.73 CALC BUN/CREAT (test code = [...] code = 2219) 25 U/L COMPREHENSIVE METABOLIC [id number] 00:00:00* Test Item Value Reference Range Interpretation Comme nts GLUCOSE (test code = 2217) 136 MG/DL BUN (test code = 2208) 16 MG/DL CREATININE (test code = 2214) 0.55 MG/DL eGFR AMER. (test cod e = 37825) 111 ML/MIN/1.73 eGFR NON- AMER. (test code = 73065) 96 ML/MIN/1.73 CALC BUN/CREAT (test code = [...] (test code = 2219) 25 U/L LIPID [id number] 00:00:00* Test Item Value Reference Range Interpretation Comme nts CHOLESTEROL (test code = 2210) 146 MG/DL TRIGLYCERIDES (test code = 2232) 60 MG/DL HDL CHOLESTEROL (test code = 2220) 47 MG/DL CALC LDL CHOL (test code = 2237) 85 MG/DL RISK RATIO LDL/HDL (test cod e = 2238) 1.81 RATIO HEMOGLOBIN [id number] 00:00:00* Test Item Value Reference Range Interpretation Comme nts HEMOGLOBIN A1c (test code = 17686) 7.9 % LIPID [id number] 00:00:00* Test Item Value Reference Range Interpretation Comme nts CHOLESTEROL (test code = 2210) 146 MG/DL TRIGLYCERIDES (test code = 2232) 60 MG/DL HDL CHOLESTEROL (test code = 2220) 47 MG/DL CALC LDL CHOL (test code = 2237) 85 MG/DL RISK RATIO LDL/HDL (test cod e = 2238) 1.81 RATIO HEMOGLOBIN [id number] 00:00:00* Test Item Value Reference Range Interpretation Comme nts HEMOGLOBIN A1c (test code = 45744) 7.9 % COMPREHENSIVE METABOLIC [id number] 00:00:00* Test Item Value Reference Range Interpretation Comme nts GLUCOSE (test code = 2217) 136 MG/DL BUN (test code = 2208) 16 MG/DL CREATININE (test code = 2214) 0.55 MG/DL eGFR AMER. (test cod e = 83097) 111 ML/MIN/1.73 eGFR NON- AMER. (test code = 22419) 96 ML/MIN/1.73 CALC BUN/CREAT (test code = 2235) 29 RATIO SODIUM (test code = 2231) 143 MEQ/L POTASSIUM (test code = 2228) 4.3 MEQ/L CHLORIDE (test code = 2215) 104 MEQ/L CARBON DIOXIDE (test code = 2205) [...] 220) 101 U/L AST (test code = 2218) 26 U/L ALT (test code = 2219) 25 U/L LIPID [id number] 00:00:00* Test Item Value Reference Range Interpretation Comme nts CHOLESTEROL (test code = 2210) 146 MG/DL TRIGLYCERIDES (test code = 2232) 60 MG/DL HDL CHOLESTEROL (test code = 2220) 47 MG/DL CALC LDL CHOL (test code = 2237) 85 MG/DL RISK RATIO LDL/HDL (test cod e = 223) 1.81 RATIO HEMOGLOBIN [id number] 00:00:00* Test Item Value Reference Range Interpretation Comme nts HEMOGLOBIN A1c (test code = 36612) 7.9 % COMPREHENSIVE METABOLIC [id number] 00:00:00* Test Item Value Reference Range Interpretation Comme nts GLUCOSE (test code = 7) 136 MG/DL BUN (test code = 2207) 16 MG/DL CREATININE (test code = 2214) 0.55 MG/DL eGFR AMER. (test cod e = 02886) 111 ML/MIN/1.73 eGFR NON- AMER. (test code = 72930) 96 ML/MIN/1.73 CALC BUN/CREAT (test code = 2235) 29 RATIO SODIUM (test code = 2231) 143 MEQ/L POTASSIUM (test code = 2228) 4.3 MEQ/L CHLORIDE (test code = 2215) 104 MEQ/L CARBON DIOXIDE (test code = 2205) [...] (test code = 2219) 25 U/L LIPID [id number] 00:00:00* Test Item Value Reference Range Interpretation Comme nts CHOLESTEROL (test code = 2210) 146 MG/DL TRIGLYCERIDES (test code = 2232) 60 MG/DL HDL CHOLESTEROL (test code = 2220) 47 MG/DL CALC LDL CHOL (test code = 2237) 85 MG/DL RISK RATIO LDL/HDL (test cod e = 2238) 1.81 RATIO HEMOGLOBIN [id number] 00:00:00* Test Item Value Reference Range Interpretation Comme nts HEMOGLOBIN A1c (test code = 78696) 7.9 % COMPREHENSIVE METABOLIC [id number] 00:00:00* Test Item Value Reference Range Interpretation Comme nts GLUCOSE (test code = 2217) 136 MG/DL BUN (test code = 2208) 16 MG/DL CREATININE (test code = 2214) 0.55 MG/DL eGFR AMER. (test cod e = 49715) 111 ML/MIN/1.73 eGFR NON- AMER. (test code = 71853) 96 ML/MIN/1.73 CALC BUN/CREAT (test code = [...] (test code = 2219) 25 U/L LIPID [id number] 00:00:00* Test Item Value Reference Range Interpretation Comme nts CHOLESTEROL (test code = 2210) 146 MG/DL TRIGLYCERIDES (test code = 2232) 60 MG/DL HDL CHOLESTEROL (test code = 2220) 47 MG/DL CALC LDL CHOL (test code = 2237) 85 MG/DL RISK RATIO LDL/HDL (test cod e = 2238) 1.81 RATIO HEMOGLOBIN [id number] 00:00:00* Test Item Value Reference Range Interpretation Comme nts HEMOGLOBIN A1c (test code = 56675) 7.9 % COMPREHENSIVE METABOLIC [id number] 00:00:00* Test Item Value Reference Range Interpretation Comme nts GLUCOSE (test code = 2217) 136 MG/DL BUN (test code = 2208) 16 MG/DL CREATININE (test code = 2214) 0.55 MG/DL eGFR AMER. (test cod e = 37199) 111 ML/MIN/1.73 eGFR NON- AMER. (test code = 39261) 96 ML/MIN/1.73 CALC BUN/CREAT (test code = [...] (test code = 2219) 25 U/L LIPID [id number] 00:00:00* Test Item Value Reference Range Interpretation Comme nts CHOLESTEROL (test code = 2210) 146 MG/DL TRIGLYCERIDES (test code = 2232) 60 MG/DL HDL CHOLESTEROL (test code = 2220) 47 MG/DL CALC LDL CHOL (test code = 2237) 85 MG/DL RISK RATIO LDL/HDL (test cod e = 2238) 1.81 RATIO HEMOGLOBIN [id number] 00:00:00* Test Item Value Reference Range Interpretation Comme nts HEMOGLOBIN A1c (test code = 77404) 7.9 % HEMOGLOBIN [id number] 00:00:00* Test Item Value Reference Range Interpretation Comme nts HEMOGLOBIN A1c (test code = 85131) 7.8 % Toney RennerCOMPREHENSIVE METABOLIC [id number] 00:00:00* Test Item Value Reference Range Interpretation Comme nts GLUCOSE (test code = 2217) 123 MG/DL BUN (test code = 2208) 17 MG/DL CREATININE (test code = 2214) 0.59 MG/DL eGFR AMER. (test cod e = 66021) 108 ML/MIN/1.73 eGFR NON- AMER. (test code = 52719) 94 ML/MIN/1.73 CALC BUN/CREAT (test code = [...] = 2219) 17 U/L Toney Cowan AustinLIPID [id number] 00:00:00* Test Item Value Reference Range Interpretation Comme nts CHOLESTEROL (test code = 2210) 236 MG/DL TRIGLYCERIDES (test code = 2232) 219 MG/DL HDL CHOLESTEROL (test code = 2220) 52 MG/DL CALC LDL CHOL (test code = 2237) 148 MG/DL RISK RATIO LDL/HDL (test cod e = 2238) 2.85 RATIO Toney RennerHEMOGLOBIN [id number] 00:00:00* Test Item Value Reference Range Interpretation Comme nts HEMOGLOBIN A1c (test code = 32422) 7.8 % Toney RennerCOMPREHENSIVE METABOLIC [id number] 00:00:00* Test Item Value Reference Range Interpretation Comme nts GLUCOSE (test code = 2217) 123 MG/DL BUN (test code = 2208) 17 MG/DL CREATININE (test code = 2214) 0.59 MG/DL eGFR AMER. (test cod e = 42549) 108 ML/MIN/1.73 eGFR NON- AMER. (test code = 15025) 94 ML/MIN/1.73 CALC BUN/CREAT (test code = [...] = 2219) 17 U/L Toney RennerCOMPREHENSIVE METABOLIC [id number] 00:00:00* Test Item Value Reference Range Interpretation Comme nts GLUCOSE (test code = 2217) 123 MG/DL BUN (test code = 2208) 17 MG/DL CREATININE (test code = 2214) 0.59 MG/DL eGFR AMER. (test cod e = 74902) 108 ML/MIN/1.73 eGFR NON- AMER. (test code = 78824) 94 ML/MIN/1.73 CALC BUN/CREAT (test code = [...] code = 2219) 17 U/L Toney RennerLIPID [id number] 00:00:00* Test Item Value Reference Range Interpretation Comme nts CHOLESTEROL (test code = 2210) 236 MG/DL TRIGLYCERIDES (test code = 2232) 219 MG/DL HDL CHOLESTEROL (test code = 2220) 52 MG/DL CALC LDL CHOL (test code = 2237) 148 MG/DL RISK RATIO LDL/HDL (test cod e = 2238) 2.85 RATIO Toney RennerHEMOGLOBIN [id number] 00:00:00* Test Item Value Reference Range Interpretation Comme nts HEMOGLOBIN A1c (test code = 72721) 7.8 % Toney RennerCOMPREHENSIVE METABOLIC [id number] 00:00:00* Test Item Value Reference Range Interpretation Comme nts GLUCOSE (test code = 2217) 123 MG/DL BUN (test code = 2208) 17 MG/DL CREATININE (test code = 2214) 0.59 MG/DL eGFR AMER. (test cod e = 44530) 108 ML/MIN/1.73 eGFR NON- AMER. (test code = 26414) 94 ML/MIN/1.73 CALC BUN/CREAT (test code = [...] code = 2219) 17 U/L Toney RennerLIPID [id number] 00:00:00* Test Item Value Reference Range Interpretation Comme nts CHOLESTEROL (test code = 2210) 236 MG/DL TRIGLYCERIDES (test code = 2232) 219 MG/DL HDL CHOLESTEROL (test code = 2220) 52 MG/DL CALC LDL CHOL (test code = 2237) 148 MG/DL RISK RATIO LDL/HDL (test cod e = 2238) 2.85 RATIO Toney RennerLIPID [id number] 00:00:00* Test Item Value Reference Range Interpretation Comme nts CHOLESTEROL (test code = 2210) 236 MG/DL TRIGLYCERIDES (test code = 2232) 219 MG/DL HDL CHOLESTEROL (test code = 2220) 52 MG/DL CALC LDL CHOL (test code = 2237) 148 MG/DL RISK RATIO LDL/HDL (test cod e = 2238) 2.85 RATIO Toney RennerHEMOGLOBIN [id number] 00:00:00* Test Item Value Reference Range Interpretation Comme nts HEMOGLOBIN A1c (test code = 14604) 7.8 % Toney RennerCOMPREHENSIVE METABOLIC [id number] 00:00:00* Test Item Value Reference Range Interpretation Comme nts GLUCOSE (test code = 2217) 123 MG/DL BUN (test code = 2208) 17 MG/DL CREATININE (test code = 2214) 0.59 MG/DL eGFR AMER. (test cod e = 35881) 108 ML/MIN/1.73 eGFR NON- AMER. (test code = 85884) 94 ML/MIN/1.73 CALC BUN/CREAT (test code = [...] code = 2219) 17 U/L Toney RennerLIPID [id number] 00:00:00* Test Item Value Reference Range Interpretation Comme nts CHOLESTEROL (test code = 2210) 236 MG/DL TRIGLYCERIDES (test code = 2232) 219 MG/DL HDL CHOLESTEROL (test code = 2220) 52 MG/DL CALC LDL CHOL (test code = 2237) 148 MG/DL RISK RATIO LDL/HDL (test cod e = 223) 2.85 RATIO Toney RennerHEMOGLOBIN [id number] 00:00:00* Test Item Value Reference Range Interpretation Comme nts HEMOGLOBIN A1c (test code = 79898) 7.8 % Toney RennerCOMPREHENSIVE METABOLIC [id number] 00:00:00* Test Item Value Reference Range Interpretation Comme nts GLUCOSE (test code = 2217) 123 MG/DL BUN (test code = 2207) 17 MG/DL CREATININE (test code = 2214) 0.59 MG/DL eGFR AMER. (test cod e = 83629) 108 ML/MIN/1.73 eGFR NON- AMER. (test code = 53326) 94 ML/MIN/1.73 CALC BUN/CREAT (test code = [...] code = 2219) 17 U/L Toney RennerLIPID [id number] 00:00:00* Test Item Value Reference Range Interpretation Comme nts CHOLESTEROL (test code = 2210) 236 MG/DL TRIGLYCERIDES (test code = 2232) 219 MG/DL HDL CHOLESTEROL (test code = 2220) 52 MG/DL CALC LDL CHOL (test code = 2237) 148 MG/DL RISK RATIO LDL/HDL (test cod e = 2238) 2.85 RATIO Toney RennerHEMOGLOBIN [id number] 00:00:00* Test Item Value Reference Range Interpretation Comme nts HEMOGLOBIN A1c (test code = 23173) 7.8 % Toney RennerCOMPREHENSIVE METABOLIC [id number] 00:00:00* Test Item Value Reference Range Interpretation Comme nts GLUCOSE (test code = 2217) 123 MG/DL BUN (test code = 2208) 17 MG/DL CREATININE (test code = 2214) 0.59 MG/DL eGFR AMER. (test cod e = 99563) 108 ML/MIN/1.73 eGFR NON- AMER. (test code = 53972) 94 ML/MIN/1.73 CALC BUN/CREAT (test code = [...] code = 2219) 17 U/L Toney RennerLIPID [id number] 00:00:00* Test Item Value Reference Range Interpretation Comme nts CHOLESTEROL (test code = 2210) 236 MG/DL TRIGLYCERIDES (test code = 2232) 219 MG/DL HDL CHOLESTEROL (test code = 2220) 52 MG/DL CALC LDL CHOL (test code = 2237) 148 MG/DL RISK RATIO LDL/HDL (test cod e = 2238) 2.85 RATIO Toney RennerHEMOGLOBIN [id number] 00:00:00* Test Item Value Reference Range Interpretation Comme nts HEMOGLOBIN A1c (test code = 79338) 7.8 % Toney RennerCOMPREHENSIVE METABOLIC [id number] 00:00:00* Test Item Value Reference Range Interpretation Comme nts GLUCOSE (test code = 2217) 123 MG/DL BUN (test code = 2208) 17 MG/DL CREATININE (test code = 2214) 0.59 MG/DL eGFR AMER. (test cod e = 92444) 108 ML/MIN/1.73 eGFR NON- AMER. (test code = 08200) 94 ML/MIN/1.73 CALC BUN/CREAT (test code = [...] code = 2219) 17 U/L Toney RennerLIPID [id number] 00:00:00* Test Item Value Reference Range Interpretation Comme nts CHOLESTEROL (test code = 2210) 236 MG/DL TRIGLYCERIDES (test code = 2232) 219 MG/DL HDL CHOLESTEROL (test code = 2220) 52 MG/DL CALC LDL CHOL (test code = 2237) 148 MG/DL RISK RATIO LDL/HDL (test cod e = 2238) 2.85 RATIO Toney RennerHEMOGLOBIN [id number] 00:00:00* Test Item Value Reference Range Interpretation Comme nts HEMOGLOBIN A1c (test code = 47402) 7.8 % Toney RennerCOMPREHENSIVE METABOLIC [id number] 00:00:00* Test Item Value Reference Range Interpretation Comme nts GLUCOSE (test code = 2217) 123 MG/DL BUN (test code = 2208) 17 MG/DL CREATININE (test code = 2214) 0.59 MG/DL eGFR AMER. (test cod e = 98098) 108 ML/MIN/1.73 eGFR NON- AMER. (test code = 14001) 94 ML/MIN/1.73 CALC BUN/CREAT (test code = [...] ALT (test code = 2219) 17 U/L Toeny Cowan AustinLIPID [id number] 00:00:00* Test Item Value Reference Range Interpretation Comme nts CHOLESTEROL (test code = 2210) 236 MG/DL TRIGLYCERIDES (test code = 2232) 219 MG/DL HDL CHOLESTEROL (test code = 2220) 52 MG/DL CALC LDL CHOL (test code = 2237) 148 MG/DL RISK RATIO LDL/HDL (test cod e = 2238) 2.85 RATIO Toney RennerHEMOGLOBIN [id number] 00:00:00* Test Item Value Reference Range Interpretation Comme nts HEMOGLOBIN A1c (test code = 64376) 7.8 % Toney Cowan AustinHEMOGLOBIN [id number] 00:00:00* Test Item Value Reference Range Interpretation Comme nts HEMOGLOBIN A1c (test code = 43302) 7.8 % COMPREHENSIVE METABOLIC [id number] 00:00:00* Test Item Value Reference Range Interpretation Comme nts GLUCOSE (test code = 2217) 123 MG/DL BUN (test code = 2208) 17 MG/DL CREATININE (test code = 2214) 0.59 MG/DL eGFR AMER. (test cod e = 62086) 108 ML/MIN/1.73 eGFR NON- AMER. (test code = 87424) 94 ML/MIN/1.73 CALC BUN/CREAT (test code = [...] (test code = 2219) 17 U/L LIPID [id number] 00:00:00* Test Item Value Reference Range Interpretation Comme nts CHOLESTEROL (test code = 2210) 236 MG/DL TRIGLYCERIDES (test code = 2232) 219 MG/DL HDL CHOLESTEROL (test code = 2220) 52 MG/DL CALC LDL CHOL (test code = 2237) 148 MG/DL RISK RATIO LDL/HDL (test cod e = 2238) 2.85 RATIO HEMOGLOBIN [id number] 00:00:00* Test Item Value Reference Range Interpretation Comme nts HEMOGLOBIN A1c (test code = 88309) 7.8 % COMPREHENSIVE METABOLIC [id number] 00:00:00* Test Item Value Reference Range Interpretation Comme nts GLUCOSE (test code = 2217) 123 MG/DL BUN (test code = 2208) 17 MG/DL CREATININE (test code = 2214) 0.59 MG/DL eGFR AMER. (test cod e = 22944) 108 ML/MIN/1.73 eGFR NON- AMER. (test code = 48481) 94 ML/MIN/1.73 CALC BUN/CREAT (test code = [...] (test code = 2219) 17 U/L LIPID [id number] 00:00:00* Test Item Value Reference Range Interpretation Comme nts CHOLESTEROL (test code = 2210) 236 MG/DL TRIGLYCERIDES (test code = 2232) 219 MG/DL HDL CHOLESTEROL (test code = 2220) 52 MG/DL CALC LDL CHOL (test code = 2237) 148 MG/DL RISK RATIO LDL/HDL (test cod e = 2238) 2.85 RATIO HEMOGLOBIN [id number] 00:00:00* Test Item Value Reference Range Interpretation Comme nts HEMOGLOBIN A1c (test code = 69709) 7.8 % COMPREHENSIVE METABOLIC [id number] 00:00:00* Test Item Value Reference Range Interpretation Comme nts GLUCOSE (test code = 2217) 123 MG/DL BUN (test code = 2208) 17 MG/DL CREATININE (test code = 2214) 0.59 MG/DL eGFR AMER. (test cod e = 91858) 108 ML/MIN/1.73 eGFR NON- AMER. (test code = 04708) 94 ML/MIN/1.73 CALC BUN/CREAT (test code = [...] (test code = 2219) 17 U/L LIPID [id number] 00:00:00* Test Item Value Reference Range Interpretation Comme nts CHOLESTEROL (test code = 2210) 236 MG/DL TRIGLYCERIDES (test code = 2232) 219 MG/DL HDL CHOLESTEROL (test code = 2220) 52 MG/DL CALC LDL CHOL (test code = 2237) 148 MG/DL RISK RATIO LDL/HDL (test cod e = 2238) 2.85 RATIO HEMOGLOBIN [id number] 00:00:00* Test Item Value Reference Range Interpretation Comme nts HEMOGLOBIN A1c (test code = 71821) 7.8 % HEMOGLOBIN [id number] 00:00:00* Test Item Value Reference Range Interpretation Comme nts HEMOGLOBIN A1c (test code = 93392) 7.8 % COMPREHENSIVE METABOLIC [id number] 00:00:00* Test Item Value Reference Range Interpretation Comme nts GLUCOSE (test code = 2217) 123 MG/DL BUN (test code = 2208) 17 MG/DL CREATININE (test code = 2214) 0.59 MG/DL eGFR AMER. (test cod e = 36673) 108 ML/MIN/1.73 eGFR NON- AMER. (test code = 32101) 94 ML/MIN/1.73 CALC BUN/CREAT (test code = [...] (test code = 2219) 17 U/L LIPID [id number] 00:00:00* Test Item Value Reference Range Interpretation Comme nts CHOLESTEROL (test code = 2210) 236 MG/DL TRIGLYCERIDES (test code = 2232) 219 MG/DL HDL CHOLESTEROL (test code = 2220) 52 MG/DL CALC LDL CHOL (test code = 2237) 148 MG/DL RISK RATIO LDL/HDL (test cod e = 2238) 2.85 RATIO COMPREHENSIVE METABOLIC [id number] 00:00:00* Test Item Value Reference Range Interpretation Comme nts GLUCOSE (test code = 2217) 123 MG/DL BUN (test code = 2208) 17 MG/DL CREATININE (test code = 2214) 0.59 MG/DL eGFR AMER. (test cod e = 83859) 108 ML/MIN/1.73 eGFR NON- AMER. (test code = 79751) 94 ML/MIN/1.73 CALC BUN/CREAT (test code = [...] (test code = 2219) 17 U/L HEMOGLOBIN [id number] 00:00:00* Test Item Value Reference Range Interpretation Comme nts HEMOGLOBIN A1c (test code = 57209) 7.8 % LIPID [id number] 00:00:00* Test Item Value Reference Range Interpretation Comme nts CHOLESTEROL (test code = 2210) 236 MG/DL TRIGLYCERIDES (test code = 2232) 219 MG/DL HDL CHOLESTEROL (test code = 2220) 52 MG/DL CALC LDL CHOL (test code = 2237) 148 MG/DL RISK RATIO LDL/HDL (test cod e = 2238) 2.85 RATIO COMPREHENSIVE METABOLIC [id number] 00:00:00* Test Item Value Reference Range Interpretation Comme nts GLUCOSE (test code = 2217) 123 MG/DL BUN (test code = 2208) 17 MG/DL CREATININE (test code = 2214) 0.59 MG/DL eGFR AMER. (test cod e = 24122) 108 ML/MIN/1.73 eGFR NON- AMER. (test code = 98665) 94 ML/MIN/1.73 CALC BUN/CREAT (test code = [...] (test code = 2219) 17 U/L LIPID [id number] 00:00:00* Test Item Value Reference Range Interpretation Comme nts CHOLESTEROL (test code = 2210) 236 MG/DL TRIGLYCERIDES (test code = 2232) 219 MG/DL HDL CHOLESTEROL (test code = 2220) 52 MG/DL CALC LDL CHOL (test code = 2237) 148 MG/DL RISK RATIO LDL/HDL (test cod e = 2238) 2.85 RATIO HEMOGLOBIN [id number] 00:00:00* Test Item Value Reference Range Interpretation Comme nts HEMOGLOBIN A1c (test code = 19702) 7.8 % COMPREHENSIVE METABOLIC [id number] 00:00:00* Test Item Value Reference Range Interpretation Comme nts GLUCOSE (test code = 2217) 123 MG/DL BUN (test code = 2208) 17 MG/DL CREATININE (test code = 2214) 0.59 MG/DL eGFR AMER. (test cod e = 24352) 108 ML/MIN/1.73 eGFR NON- AMER. (test code = 10749) 94 ML/MIN/1.73 CALC BUN/CREAT (test code = [...] (test code = 2219) 17 U/L LIPID [id number] 00:00:00* Test Item Value Reference Range Interpretation Comme nts CHOLESTEROL (test code = 2210) 236 MG/DL TRIGLYCERIDES (test code = 2232) 219 MG/DL HDL CHOLESTEROL (test code = 2220) 52 MG/DL CALC LDL CHOL (test code = 2237) 148 MG/DL RISK RATIO LDL/HDL (test cod e = 2238) 2.85 RATIO HEMOGLOBIN [id number] 00:00:00* Test Item Value Reference Range Interpretation Comme nts HEMOGLOBIN A1c (test code = 23559) 7.8 % COMPREHENSIVE METABOLIC [id number] 00:00:00* Test Item Value Reference Range Interpretation Comme nts GLUCOSE (test code = 2217) 123 MG/DL BUN (test code = 2208) 17 MG/DL CREATININE (test code = 2214) 0.59 MG/DL eGFR AMER. (test cod e = 62658) 108 ML/MIN/1.73 eGFR NON- AMER. (test code = 37679) 94 ML/MIN/1.73 CALC BUN/CREAT (test code = [...] (test code = 2219) 17 U/L LIPID [id number] 00:00:00* Test Item Value Reference Range Interpretation Comme nts CHOLESTEROL (test code = 2210) 236 MG/DL TRIGLYCERIDES (test code = 2232) 219 MG/DL HDL CHOLESTEROL (test code = 2220) 52 MG/DL CALC LDL CHOL (test code = 2237) 148 MG/DL RISK RATIO LDL/HDL (test cod e = 2238) 2.85 RATIO HEMOGLOBIN [id number] 00:00:00* Test Item Value Reference Range Interpretation Comme nts HEMOGLOBIN A1c (test code = 52032) 7.8 % COMPREHENSIVE METABOLIC [id number] 00:00:00* Test Item Value Reference Range Interpretation Comme nts GLUCOSE (test code = 2217) 123 MG/DL BUN (test code = 2208) 17 MG/DL CREATININE (test code = 2214) 0.59 MG/DL eGFR AMER. (test cod e = 55573) 108 ML/MIN/1.73 eGFR NON- AMER. (test code = 03908) 94 ML/MIN/1.73 CALC BUN/CREAT (test code = [...] (test code = 2219) 17 U/L LIPID [id number] 00:00:00* Test Item Value Reference Range Interpretation Comme nts CHOLESTEROL (test code = 2210) 236 MG/DL TRIGLYCERIDES (test code = 2232) 219 MG/DL HDL CHOLESTEROL (test code = 2220) 52 MG/DL CALC LDL CHOL (test code = 2237) 148 MG/DL RISK RATIO LDL/HDL (test cod e = 2238) 2.85 RATIO COMPREHENSIVE METABOLIC [id number] 00:00:00* Test Item Value Reference Range Interpretation Comme nts GLUCOSE (test code = 2217) 99 MG/DL BUN (test code = 2208) 13 MG/DL CREATININE (test code = 2214) 0.52 MG/DL eGFR AMER. (test cod e = 76192) 113 ML/MIN/1.73 eGFR NON- AMER. (test code = 52724) 97 ML/MIN/1.73 CALC BUN/CREAT (test code = [...] 220) 78 U/L AST (test code = 2218) 21 U/L ALT (test code = 2219) 17 U/L Toney RennerLIPID [id number] 00:00:00* Test Item Value Reference Range Interpretation Comme nts CHOLESTEROL (test code = 2210) 215 MG/DL TRIGLYCERIDES (test code = 2232) 179 MG/DL HDL CHOLESTEROL (test code = 2220) 50 MG/DL CALC LDL CHOL (test code = 2237) 134 MG/DL RISK RATIO LDL/HDL (test cod e = 2238) 2.68 RATIO Toney RennerCOMPREHENSIVE METABOLIC [id number] 00:00:00* Test Item Value Reference Range Interpretation Comme nts GLUCOSE (test code = 2217) 99 MG/DL BUN (test code = 2207) 13 MG/DL CREATININE (test code = 2214) 0.52 MG/DL eGFR AMER. (test cod e = 24477) 113 ML/MIN/1.73 eGFR NON- AMER. (test code = 24297) 97 ML/MIN/1.73 CALC BUN/CREAT (test code = [...] code = 2219) 17 U/L Toney RennerHEMOGLOBIN [id number] 00:00:00* Test Item Value Reference Range Interpretation Comme nts HEMOGLOBIN A1c (test code = 22920) 7.5 % Toney RennerCOMPREHENSIVE METABOLIC [id number] 00:00:00* Test Item Value Reference Range Interpretation Comme nts GLUCOSE (test code = 2217) 99 MG/DL BUN (test code = 2208) 13 MG/DL CREATININE (test code = 2214) 0.52 MG/DL eGFR AMER. (test cod e = 51869) 113 ML/MIN/1.73 eGFR NON- AMER. (test code = 95648) 97 ML/MIN/1.73 CALC BUN/CREAT (test code = [...] code = 2219) 17 U/L Toney RennerLIPID [id number] 00:00:00* Test Item Value Reference Range Interpretation Comme nts CHOLESTEROL (test code = 2210) 215 MG/DL TRIGLYCERIDES (test code = 2232) 179 MG/DL HDL CHOLESTEROL (test code = 2220) 50 MG/DL CALC LDL CHOL (test code = 2237) 134 MG/DL RISK RATIO LDL/HDL (test cod e = 2238) 2.68 RATIO Toney Cowan AustinHEMOGLOBIN [id number] 00:00:00* Test Item Value Reference Range Interpretation Comme nts HEMOGLOBIN A1c (test code = 74916) 7.5 % Toney RennerCOMPREHENSIVE METABOLIC [id number] 00:00:00* Test Item Value Reference Range Interpretation Comme nts GLUCOSE (test code = 2217) 99 MG/DL BUN (test code = 2208) 13 MG/DL CREATININE (test code = 2214) 0.52 MG/DL eGFR AMER. (test cod e = 23996) 113 ML/MIN/1.73 eGFR NON- AMER. (test code = 93764) 97 ML/MIN/1.73 CALC BUN/CREAT (test code = [...] = 2219) 17 U/L Toney Cowan AustinLIPID [id number] 00:00:00* Test Item Value Reference Range Interpretation Comme nts CHOLESTEROL (test code = 2210) 215 MG/DL TRIGLYCERIDES (test code = 2232) 179 MG/DL HDL CHOLESTEROL (test code = 2220) 50 MG/DL CALC LDL CHOL (test code = 2237) 134 MG/DL RISK RATIO LDL/HDL (test cod e = 2238) 2.68 RATIO Toney RennerHEMOGLOBIN [id number] 00:00:00* Test Item Value Reference Range Interpretation Comme nts HEMOGLOBIN A1c (test code = 84515) 7.5 % Toney Cowan AustinLIPID [id number] 00:00:00* Test Item Value Reference Range Interpretation Comme nts CHOLESTEROL (test code = 2210) 215 MG/DL TRIGLYCERIDES (test code = 2232) 179 MG/DL HDL CHOLESTEROL (test code = 2220) 50 MG/DL CALC LDL CHOL (test code = 2237) 134 MG/DL RISK RATIO LDL/HDL (test cod e = 2238) 2.68 RATIO Toney RennerHEMOGLOBIN [id number] 00:00:00* Test Item Value Reference Range Interpretation Comme nts HEMOGLOBIN A1c (test code = 21818) 7.5 % Toney RennerCOMPREHENSIVE METABOLIC [id number] 00:00:00* Test Item Value Reference Range Interpretation Comme nts GLUCOSE (test code = 2217) 99 MG/DL BUN (test code = 2208) 13 MG/DL CREATININE (test code = 2214) 0.52 MG/DL eGFR AMER. (test cod e = 93598) 113 ML/MIN/1.73 eGFR NON- AMER. (test code = 65080) 97 ML/MIN/1.73 CALC BUN/CREAT (test code = [...] code = 2219) 17 U/L Toney RennerLIPID [id number] 00:00:00* Test Item Value Reference Range Interpretation Comme nts CHOLESTEROL (test code = 2210) 215 MG/DL TRIGLYCERIDES (test code = 2232) 179 MG/DL HDL CHOLESTEROL (test code = 2220) 50 MG/DL CALC LDL CHOL (test code = 2237) 134 MG/DL RISK RATIO LDL/HDL (test cod e = 2238) 2.68 RATIO Toney RennerHEMOGLOBIN [id number] 00:00:00* Test Item Value Reference Range Interpretation Comme nts HEMOGLOBIN A1c (test code = 81803) 7.5 % Toney RennerCOMPREHENSIVE METABOLIC [id number] 00:00:00* Test Item Value Reference Range Interpretation Comme nts GLUCOSE (test code = 2217) 99 MG/DL BUN (test code = 2208) 13 MG/DL CREATININE (test code = 2214) 0.52 MG/DL eGFR AMER. (test cod e = 62596) 113 ML/MIN/1.73 eGFR NON- AMER. (test code = 73780) 97 ML/MIN/1.73 CALC BUN/CREAT (test code = [...] = 2219) 17 U/L Toney Cowan AustinLIPID [id number] 00:00:00* Test Item Value Reference Range Interpretation Comme nts CHOLESTEROL (test code = 2210) 215 MG/DL TRIGLYCERIDES (test code = 2232) 179 MG/DL HDL CHOLESTEROL (test code = 2220) 50 MG/DL CALC LDL CHOL (test code = 2237) 134 MG/DL RISK RATIO LDL/HDL (test cod e = 2238) 2.68 RATIO Toney RennerHEMOGLOBIN [id number] 00:00:00* Test Item Value Reference Range Interpretation Comme nts HEMOGLOBIN A1c (test code = 51607) 7.5 % Toney Cowan AustinCOMPREHENSIVE METABOLIC [id number] 00:00:00* Test Item Value Reference Range Interpretation Comme nts GLUCOSE (test code = 2217) 99 MG/DL BUN (test code = 2208) 13 MG/DL CREATININE (test code = 2214) 0.52 MG/DL eGFR AMER. (test cod e = 79147) 113 ML/MIN/1.73 eGFR NON- AMER. (test code = 01638) 97 ML/MIN/1.73 CALC BUN/CREAT (test code = [...] = 2219) 17 U/L Toney Cowan AustinLIPID [id number] 00:00:00* Test Item Value Reference Range Interpretation Comme nts CHOLESTEROL (test code = 2210) 215 MG/DL TRIGLYCERIDES (test code = 2232) 179 MG/DL HDL CHOLESTEROL (test code = 2220) 50 MG/DL CALC LDL CHOL (test code = 2237) 134 MG/DL RISK RATIO LDL/HDL (test cod e = 2238) 2.68 RATIO Toney RennerHEMOGLOBIN [id number] 00:00:00* Test Item Value Reference Range Interpretation Comme nts HEMOGLOBIN A1c (test code = 04825) 7.5 % Toney Cowan AustinCOMPREHENSIVE METABOLIC [id number] 00:00:00* Test Item Value Reference Range Interpretation Comme nts GLUCOSE (test code = 2217) 99 MG/DL BUN (test code = 2208) 13 MG/DL CREATININE (test code = 2214) 0.52 MG/DL eGFR AMER. (test cod e = 30313) 113 ML/MIN/1.73 eGFR NON- AMER. (test code = 06566) 97 ML/MIN/1.73 CALC BUN/CREAT (test code = [...] code = 2219) 17 U/L Toney Cowan SpringerLIPID [id number] 00:00:00* Test Item Value Reference Range Interpretation Comme nts CHOLESTEROL (test code = 2210) 215 MG/DL TRIGLYCERIDES (test code = 2232) 179 MG/DL HDL CHOLESTEROL (test code = 2220) 50 MG/DL CALC LDL CHOL (test code = 2237) 134 MG/DL RISK RATIO LDL/HDL (test cod e = 2238) 2.68 RATIO Toney RennerHEMOGLOBIN [id number] 00:00:00* Test Item Value Reference Range Interpretation Comme nts HEMOGLOBIN A1c (test code = 95125) 7.5 % Toney Cowan SpringerCOMPREHENSIVE METABOLIC [id number] 00:00:00* Test Item Value Reference Range Interpretation Comme nts GLUCOSE (test code = 2217) 99 MG/DL BUN (test code = 2208) 13 MG/DL CREATININE (test code = 2214) 0.52 MG/DL eGFR AMER. (test cod e = 22427) 113 ML/MIN/1.73 eGFR NON- AMER. (test code = 83112) 97 ML/MIN/1.73 CALC BUN/CREAT (test code = [...] code = 2219) 17 U/L Toney Cowan SpringerLIPID [id number] 00:00:00* Test Item Value Reference Range Interpretation Comme nts CHOLESTEROL (test code = 2210) 215 MG/DL TRIGLYCERIDES (test code = 2232) 179 MG/DL HDL CHOLESTEROL (test code = 2220) 50 MG/DL CALC LDL CHOL (test code = 2237) 134 MG/DL RISK RATIO LDL/HDL (test cod e = 223) 2.68 RATIO Toney RennerHEMOGLOBIN [id number] 00:00:00* Test Item Value Reference Range Interpretation Comme nts HEMOGLOBIN A1c (test code = 10471) 7.5 % Toney RennerCOMPREHENSIVE METABOLIC [id number] 00:00:00* Test Item Value Reference Range Interpretation Comme nts GLUCOSE (test code = 2217) 99 MG/DL BUN (test code = 2208) 13 MG/DL CREATININE (test code = 2214) 0.52 MG/DL eGFR AMER. (test cod e = 57053) 113 ML/MIN/1.73 eGFR NON- AMER. (test code = 53755) 97 ML/MIN/1.73 CALC BUN/CREAT (test code = 2235) 25 RATIO SODIUM (test code = 2231) 143 MEQ/L POTASSIUM (test code = 2228) 4.3 MEQ/L CHLORIDE (test code = 2215) 105 MEQ/L CARBON DIOXIDE (test code = 2205) 24 MEQ/L CALCIUM (test code = 2209) 10.1 MG/DL PROTEIN, TOTAL (test code = 2229) 7.6 G/DL ALBUMIN (test code = 2201) 4.4 G/DL CALC GLOBULIN (test code = 2240) 3.2 G/DL CALC A/G RATIO (test code = 2234) 1.4 RATIO BILIRUBIN, TOTAL (test code = 2207) 0.5 MG/DL ALKALINE PHOSPHATASE (test code = 220) 78 U/L AST (test code = 2218) 21 U/L ALT (test code = 2219) 17 U/L LIPID [id number] 00:00:00* Test Item Value Reference Range Interpretation Comme nts CHOLESTEROL (test code = 2210) 215 MG/DL TRIGLYCERIDES (test code = 2232) 179 MG/DL HDL CHOLESTEROL (test code = 2220) 50 MG/DL CALC LDL CHOL (test code = 223) 134 MG/DL RISK RATIO LDL/HDL (test cod e = 223) 2.68 RATIO HEMOGLOBIN [id number] 00:00:00* Test Item Value Reference Range Interpretation Comme nts HEMOGLOBIN A1c (test code = 63818) 7.5 % COMPREHENSIVE METABOLIC [id number] 00:00:00* Test Item Value Reference Range Interpretation Comme nts GLUCOSE (test code = 7) 99 MG/DL BUN (test code = 8) 13 MG/DL CREATININE (test code = 2214) 0.52 MG/DL eGFR AMER. (test cod e = 94484) 113 ML/MIN/1.73 eGFR NON- AMER. (test code = 89242) 97 ML/MIN/1.73 CALC BUN/CREAT (test code = 2235) 25 RATIO SODIUM (test code = 2231) 143 MEQ/L POTASSIUM (test code = 2228) 4.3 MEQ/L CHLORIDE (test code = 2215) 105 MEQ/L CARBON DIOXIDE (test code = 2205) 24 MEQ/L CALCIUM (test code = 2209) [...] (test code = 2219) 17 U/L LIPID [id number] 00:00:00* Test Item Value Reference Range Interpretation Comme nts CHOLESTEROL (test code = 2210) 215 MG/DL TRIGLYCERIDES (test code = 2232) 179 MG/DL HDL CHOLESTEROL (test code = 2220) 50 MG/DL CALC LDL CHOL (test code = 2237) 134 MG/DL RISK RATIO LDL/HDL (test cod e = 2238) 2.68 RATIO HEMOGLOBIN [id number] 00:00:00* Test Item Value Reference Range Interpretation Comme nts HEMOGLOBIN A1c (test code = 76508) 7.5 % COMPREHENSIVE METABOLIC [id number] 00:00:00* Test Item Value Reference Range Interpretation Comme nts GLUCOSE (test code = 2217) 99 MG/DL BUN (test code = 2208) 13 MG/DL CREATININE (test code = 2214) 0.52 MG/DL eGFR AMER. (test cod e = 44757) 113 ML/MIN/1.73 eGFR NON- AMER. (test code = 84921) 97 ML/MIN/1.73 CALC BUN/CREAT (test code = [...] (test code = 2219) 17 U/L LIPID [id number] 00:00:00* Test Item Value Reference Range Interpretation Comme nts CHOLESTEROL (test code = 2210) 215 MG/DL TRIGLYCERIDES (test code = 2232) 179 MG/DL HDL CHOLESTEROL (test code = 2220) 50 MG/DL CALC LDL CHOL (test code = 2237) 134 MG/DL RISK RATIO LDL/HDL (test cod e = 2238) 2.68 RATIO HEMOGLOBIN [id number] 00:00:00* Test Item Value Reference Range Interpretation Comme nts HEMOGLOBIN A1c (test code = 25529) 7.5 % COMPREHENSIVE METABOLIC [id number] 00:00:00* Test Item Value Reference Range Interpretation Comme nts GLUCOSE (test code = 2217) 99 MG/DL BUN (test code = 2208) 13 MG/DL CREATININE (test code = 2214) 0.52 MG/DL eGFR AMER. (test cod e = 51695) 113 ML/MIN/1.73 eGFR NON- AMER. (test code = 51737) 97 ML/MIN/1.73 CALC BUN/CREAT (test code = [...] code = 2219) 17 U/L COMPREHENSIVE METABOLIC [id number] 00:00:00* Test Item Value Reference Range Interpretation Comme nts GLUCOSE (test code = 2217) 99 MG/DL BUN (test code = 2208) 13 MG/DL CREATININE (test code = 2214) 0.52 MG/DL eGFR AMER. (test cod e = 39001) 113 ML/MIN/1.73 eGFR NON- AMER. (test code = 05465) 97 ML/MIN/1.73 CALC BUN/CREAT (test code = [...] (test code = 2219) 17 U/L LIPID [id number] 00:00:00* Test Item Value Reference Range Interpretation Comme nts CHOLESTEROL (test code = 2210) 215 MG/DL TRIGLYCERIDES (test code = 2232) 179 MG/DL HDL CHOLESTEROL (test code = 2220) 50 MG/DL CALC LDL CHOL (test code = 2237) 134 MG/DL RISK RATIO LDL/HDL (test cod e = 2238) 2.68 RATIO HEMOGLOBIN [id number] 00:00:00* Test Item Value Reference Range Interpretation Comme nts HEMOGLOBIN A1c (test code = 35932) 7.5 % LIPID [id number] 00:00:00* Test Item Value Reference Range Interpretation Comme nts CHOLESTEROL (test code = 2210) 215 MG/DL TRIGLYCERIDES (test code = 2232) 179 MG/DL HDL CHOLESTEROL (test code = 2220) 50 MG/DL CALC LDL CHOL (test code = 2237) 134 MG/DL RISK RATIO LDL/HDL (test cod e = 2238) 2.68 RATIO HEMOGLOBIN [id number] 00:00:00* Test Item Value Reference Range Interpretation Comme nts HEMOGLOBIN A1c (test code = 21555) 7.5 % COMPREHENSIVE METABOLIC [id number] 00:00:00* Test Item Value Reference Range Interpretation Comme nts GLUCOSE (test code = 2217) 99 MG/DL BUN (test code = 8) 13 MG/DL CREATININE (test code = 2214) 0.52 MG/DL eGFR AMER. (test cod e = 76193) 113 ML/MIN/1.73 eGFR NON- AMER. (test code = 68414) 97 ML/MIN/1.73 CALC BUN/CREAT (test code = [...] (test code = 2219) 17 U/L LIPID [id number] 00:00:00* Test Item Value Reference Range Interpretation Comme nts CHOLESTEROL (test code = 2210) 215 MG/DL TRIGLYCERIDES (test code = 2232) 179 MG/DL HDL CHOLESTEROL (test code = 2220) 50 MG/DL CALC LDL CHOL (test code = 2237) 134 MG/DL RISK RATIO LDL/HDL (test cod e = 2238) 2.68 RATIO HEMOGLOBIN [id number] 00:00:00* Test Item Value Reference Range Interpretation Comme nts HEMOGLOBIN A1c (test code = 41555) 7.5 % COMPREHENSIVE METABOLIC [id number] 00:00:00* Test Item Value Reference Range Interpretation Comme nts GLUCOSE (test code = 2217) 99 MG/DL BUN (test code = 8) 13 MG/DL CREATININE (test code = 2214) 0.52 MG/DL eGFR AMER. (test cod e = 34169) 113 ML/MIN/1.73 eGFR NON- AMER. (test code = 46610) 97 ML/MIN/1.73 CALC BUN/CREAT (test code = [...] (test code = 2219) 17 U/L LIPID [id number] 00:00:00* Test Item Value Reference Range Interpretation Comme nts CHOLESTEROL (test code = 2210) 215 MG/DL TRIGLYCERIDES (test code = 2232) 179 MG/DL HDL CHOLESTEROL (test code = 2220) 50 MG/DL CALC LDL CHOL (test code = 2237) 134 MG/DL RISK RATIO LDL/HDL (test cod e = 223) 2.68 RATIO HEMOGLOBIN [id number] 00:00:00* Test Item Value Reference Range Interpretation Comme nts HEMOGLOBIN A1c (test code = 93767) 7.5 % COMPREHENSIVE METABOLIC [id number] 00:00:00* Test Item Value Reference Range Interpretation Comme nts GLUCOSE (test code = 7) 99 MG/DL BUN (test code = 8) 13 MG/DL CREATININE (test code = 2214) 0.52 MG/DL eGFR AMER. (test cod e = 58784) 113 ML/MIN/1.73 eGFR NON- AMER. (test code = 33739) 97 ML/MIN/1.73 CALC BUN/CREAT (test code = [...] (test code = 2219) 17 U/L LIPID [id number] 00:00:00* Test Item Value Reference Range Interpretation Comme nts CHOLESTEROL (test code = 2210) 215 MG/DL TRIGLYCERIDES (test code = 2232) 179 MG/DL HDL CHOLESTEROL (test code = 2220) 50 MG/DL CALC LDL CHOL (test code = 2237) 134 MG/DL RISK RATIO LDL/HDL (test cod e = 223) 2.68 RATIO HEMOGLOBIN [id number] 00:00:00* Test Item Value Reference Range Interpretation Comme nts HEMOGLOBIN A1c (test code = 63042) 7.5 % COMPREHENSIVE METABOLIC [id number] 00:00:00* Test Item Value Reference Range Interpretation Comme nts GLUCOSE (test code = 2217) 99 MG/DL BUN (test code = 2208) 13 MG/DL CREATININE (test code = 2214) 0.52 MG/DL eGFR AMER. (test cod e = 53690) 113 ML/MIN/1.73 eGFR NON- AMER. (test code = 20215) 97 ML/MIN/1.73 CALC BUN/CREAT (test code = [...] (test code = 2219) 17 U/L LIPID [id number] 00:00:00* Test Item Value Reference Range Interpretation Comme nts CHOLESTEROL (test code = 2210) 215 MG/DL TRIGLYCERIDES (test code = 2232) 179 MG/DL HDL CHOLESTEROL (test code = 2220) 50 MG/DL CALC LDL CHOL (test code = 2237) 134 MG/DL RISK RATIO LDL/HDL (test cod e = 2238) 2.68 RATIO HEMOGLOBIN [id number] 00:00:00* Test Item Value Reference Range Interpretation Comme nts HEMOGLOBIN A1c (test code = 41563) 7.5 % SARS-CoV-2 (COVID-19) by RT-PCR (HIGH RISK)2020-06-30 00:00:00* Test Item Value Reference Range Interpretation Comme nts SARS-CoV-2 INTERPRETATION (test code = 07562) Negative SOURCE (test code = 04876) Nasal_Swab_in _VTM__ UTM Toney F VfxgecJABC-[id number]-8 (COVID-19) by RT-PCR (HIGH RISK)2020-06-30 00:00:00* Test Item Value Reference Range Interpretation Comme nts SARS-CoV-2 INTERPRETATION (test code = 10470) Negative SOURCE (test code = 02151) Nasal_Swab_in _VTM__ UTM Toney F MdrbufOOTW-CjE-2 (COVID-19) by RT-PCR (HIGH RISK)2020-06-30 00:00:00* Test Item Value Reference Range Interpretation Comme nts SARS-CoV-2 INTERPRETATION (test code = 37258) Negative SOURCE (test code = 89084) Nasal_Swab_in _VTM__ UTM Toney F PrpssgGTDJ-EzP-4 (COVID-19) by RT-PCR (HIGH RISK)2020-06-30 00:00:00* Test Item Value Reference Range Interpretation Comme nts SARS-CoV-2 INTERPRETATION (test code = 27402) Negative SOURCE (test code = 81181) Nasal_Swab_in _VTM__ UTM Toney F HaoxuwYUVT-AuA-5 (COVID-19) by RT-PCR (HIGH RISK)2020-06-30 00:00:00* Test Item Value Reference Range Interpretation Comme nts SARS-CoV-2 INTERPRETATION (test code = 55309) Negative SOURCE (test code = 76723) Nasal_Swab_in _VTM__ UTM Toney F IoainxJCXK-IbO-5 (COVID-19) by RT-PCR (HIGH RISK)2020-06-30 00:00:00* Test Item Value Reference Range Interpretation Comme nts SARS-CoV-2 INTERPRETATION (test code = 74347) Negative SOURCE (test code = 24639) Nasal_Swab_in _VTM__ UTM Toney F ZxitddPCQX-EbF-7 (COVID-19) by RT-PCR (HIGH RISK)2020-06-30 00:00:00* Test Item Value Reference Range Interpretation Comme nts SARS-CoV-2 INTERPRETATION (test code = 41962) Negative SOURCE (test code = 37027) Nasal_Swab_in _VTM__ UTM Toney F SptoxwYJTO-OlQ-1 (COVID-19) by RT-PCR (HIGH RISK)2020-06-30 00:00:00* Test Item Value Reference Range Interpretation Comme nts SARS-CoV-2 INTERPRETATION (test code = 71228) Negative SOURCE (test code = 04874) Nasal_Swab_in _VTM__ UTM Toney F ZdkhrrXCZS-CeU-6 (COVID-19) by RT-PCR (HIGH RISK)2020-06-30 00:00:00* Test Item Value Reference Range Interpretation Comme nts SARS-CoV-2 INTERPRETATION (test code = 13256) Negative SOURCE (test code = 65358) Nasal_Swab_in _VTM__ UTM Toney F MmnbxxOOMS-DqZ-1 (COVID-19) by RT-PCR (HIGH RISK)2020-06-30 00:00:00* Test Item Value Reference Range Interpretation Comme nts SARS-CoV-2 INTERPRETATION (test code = 90541) Negative SOURCE (test code = 09510) Nasal_Swab_in _VTM__ UTM SARS-CoV-2 (COVID-19) by RT-PCR (HIGH RISK)2020-06-30 00:00:00* Test Item Value Reference Range Interpretation Comme nts SARS-CoV-2 INTERPRETATION (test code = 83310) Negative SOURCE (test code = 25305) Nasal_Swab_in _VTM__ UTM SARS-CoV-2 (COVID-19) by RT-PCR (HIGH RISK)2020-06-30 00:00:00* Test Item Value Reference Range Interpretation Comme nts SARS-CoV-2 INTERPRETATION (test code = 36196) Negative SOURCE (test code = 72850) Nasal_Swab_in _VTM__ UTM SARS-CoV-2 (COVID-19) by RT-PCR (HIGH RISK)2020-06-30 00:00:00* Test Item Value Reference Range Interpretation Comme nts SARS-CoV-2 INTERPRETATION (test code = 97836) Negative SOURCE (test code = 90038) Nasal_Swab_in _VTM__ UTM SARS-CoV-2 (COVID-19) by RT-PCR (HIGH RISK)2020-06-30 00:00:00* Test Item Value Reference Range Interpretation Comme nts SARS-CoV-2 INTERPRETATION (test code = 98658) Negative SOURCE (test code = 70493) Nasal_Swab_in _VTM__ UTM SARS-CoV-2 (COVID-19) by RT-PCR (HIGH RISK)2020-06-30 00:00:00* Test Item Value Reference Range Interpretation Comme nts SARS-CoV-2 INTERPRETATION (test code = 03876) Negative SOURCE (test code = 68890) Nasal_Swab_in _VTM__ UTM SARS-CoV-2 (COVID-19) by RT-PCR (HIGH RISK)2020-06-30 00:00:00* Test Item Value Reference Range Interpretation Comme nts SARS-CoV-2 INTERPRETATION (test code = 03148) Negative SOURCE (test code = 44024) Nasal_Swab_in _VTM__ UTM SARS-CoV-2 (COVID-19) by RT-PCR (HIGH RISK)2020-06-30 00:00:00* Test Item Value Reference Range Interpretation Comme nts SARS-CoV-2 INTERPRETATION (test code = 11543) Negative SOURCE (test code = 31078) Nasal_Swab_in _VTM__ UTM SARS-CoV-2 (COVID-19) by RT-PCR (HIGH RISK)2020-06-30 00:00:00* Test Item Value Reference Range Interpretation Comme nts SARS-CoV-2 INTERPRETATION (test code = 73825) Negative SOURCE (test code = 14772) Nasal_Swab_in _VTM__ UTM SARS-CoV-2 (COVID-19) by RT-PCR (HIGH RISK)2020-06-10 00:00:00* Test Item Value Reference Range Interpretation Comme nts SARS-CoV-2 INTERPRETATION (t est code = 16544) POSITIVE SOURCE (test code = 06066) NOT SPECIFIED Toney Cowan NakczoOTQA-DgY-4 (COVID-19) by RT-PCR (HIGH RISK)2020-06-10 00:00:00* Test Item Value Reference Range Interpretation Comme nts SARS-CoV-2 INTERPRETATION (t est code = 64947) POSITIVE SOURCE (test code = 80375) NOT SPECIFIED Toney Cowan InciplBNIW-IbG-9 (COVID-19) by RT-PCR (HIGH RISK)2020-06-10 00:00:00* Test Item Value Reference Range Interpretation Comme nts SARS-CoV-2 INTERPRETATION (t est code = 37804) POSITIVE SOURCE (test code = 19476) NOT SPECIFIED Toney Cowan AqzwzoCTQY-UkQ-1 (COVID-19) by RT-PCR (HIGH RISK)2020-06-10 00:00:00* Test Item Value Reference Range Interpretation Comme nts SARS-CoV-2 INTERPRETATION (t est code = 81195) POSITIVE SOURCE (test code = 11295) NOT SPECIFIED Toney Cowan RytzxoXFXI-XuT-3 (COVID-19) by RT-PCR (HIGH RISK)2020-06-10 00:00:00* Test Item Value Reference Range Interpretation Comme nts SARS-CoV-2 INTERPRETATION (t est code = 63025) POSITIVE SOURCE (test code = 84923) NOT SPECIFIED Toney Cowan AahttzSQNF-IcX-0 (COVID-19) by RT-PCR (HIGH RISK)2020-06-10 00:00:00* Test Item Value Reference Range Interpretation Comme nts SARS-CoV-2 INTERPRETATION (t est code = 77803) POSITIVE SOURCE (test code = 61246) NOT SPECIFIED Toney F OcytdpQKUX-KuQ-5 (COVID-19) by RT-PCR (HIGH RISK)2020-06-10 00:00:00* Test Item Value Reference Range Interpretation Comme nts SARS-CoV-2 INTERPRETATION (t est code = 60362) POSITIVE SOURCE (test code = 91311) NOT SPECIFIED Toney Cowan QpwppgHNPJ-VgY-0 (COVID-19) by RT-PCR (HIGH RISK)2020-06-10 00:00:00* Test Item Value Reference Range Interpretation Comme nts SARS-CoV-2 INTERPRETATION (t est code = 42100) POSITIVE SOURCE (test code = 85434) NOT SPECIFIED Toney Cowan TfeoiuKAGR-NsO-7 (COVID-19) by RT-PCR (HIGH RISK)2020-06-10 00:00:00* Test Item Value Reference Range Interpretation Comme nts SARS-CoV-2 INTERPRETATION (t est code = 39657) POSITIVE SOURCE (test code = 94871) NOT SPECIFIED Toney Cowan SiqohePGVB-UoF-4 (COVID-19) by RT-PCR (HIGH RISK)2020-06-10 00:00:00* Test Item Value Reference Range Interpretation Comme nts SARS-CoV-2 INTERPRETATION (t est code = 79329) POSITIVE SOURCE (test code = 14874) NOT SPECIFIED SARS-CoV-2 (COVID-19) by RT-PCR (HIGH RISK)2020-06-10 00:00:00* Test Item Value Reference Range Interpretation Comme nts SARS-CoV-2 INTERPRETATION (t est code = 35211) POSITIVE SOURCE (test code = 56405) NOT SPECIFIED SARS-CoV-2 (COVID-19) by RT-PCR (HIGH RISK)2020-06-10 00:00:00* Test Item Value Reference Range Interpretation Comme nts SARS-CoV-2 INTERPRETATION (t est code = 40319) POSITIVE SOURCE (test code = 76750) NOT SPECIFIED SARS-CoV-2 (COVID-19) by RT-PCR (HIGH RISK)2020-06-10 00:00:00* Test Item Value Reference Range Interpretation Comme nts SARS-CoV-2 INTERPRETATION (t est code = 20886) POSITIVE SOURCE (test code = 55221) NOT SPECIFIED SARS-CoV-2 (COVID-19) by RT-PCR (HIGH RISK)2020-06-10 00:00:00* Test Item Value Reference Range Interpretation Comme nts SARS-CoV-2 INTERPRETATION (t est code = 80056) POSITIVE SOURCE (test code = 43689) NOT SPECIFIED SARS-CoV-2 (COVID-19) by RT-PCR (HIGH RISK)2020-06-10 00:00:00* Test Item Value Reference Range Interpretation Comme nts SARS-CoV-2 INTERPRETATION (t est code = 92499) POSITIVE SOURCE (test code = 26620) NOT SPECIFIED SARS-CoV-2 (COVID-19) by RT-PCR (HIGH RISK)2020-06-10 00:00:00* Test Item Value Reference Range Interpretation Comme nts SARS-CoV-2 INTERPRETATION (t est code = 96007) POSITIVE SOURCE (test code = 87546) NOT SPECIFIED SARS-CoV-2 (COVID-19) by RT-PCR (HIGH RISK)2020-06-10 00:00:00* Test Item Value Reference Range Interpretation Comme nts SARS-CoV-2 INTERPRETATION (t est code = 12871) POSITIVE SOURCE (test code = 58307) NOT SPECIFIED SARS-CoV-2 (COVID-19) by RT-PCR (HIGH RISK)2020-06-10 00:00:00* Test Item Value Reference Range Interpretation Comme nts SARS-CoV-2 INTERPRETATION (t est code = 49958) POSITIVE SOURCE (test code = 77492) NOT SPECIFIED HEMOGLOBIN [id number] 00:00:00* Test Item Value Reference Range Interpretation Comme nts HEMOGLOBIN A1c (test code = 78378) 7.1 % Toney F AustinHEMOGLOBIN [id number] 00:00:00* Test Item Value Reference Range Interpretation Comme nts HEMOGLOBIN A1c (test code = 99473) 7.1 % Toney F AustinHEMOGLOBIN [id number] 00:00:00* Test Item Value Reference Range Interpretation Comme nts HEMOGLOBIN A1c (test code = 90879) 7.1 % Toney F AustinHEMOGLOBIN [id number] 00:00:00* Test Item Value Reference Range Interpretation Comme nts HEMOGLOBIN A1c (test code = 46277) 7.1 % Toney F AustinHEMOGLOBIN [id number] 00:00:00* Test Item Value Reference Range Interpretation Comme nts HEMOGLOBIN A1c (test code = 73244) 7.1 % Toney F AustinHEMOGLOBIN [id number] 00:00:00* Test Item Value Reference Range Interpretation Comme nts HEMOGLOBIN A1c (test code = 64202) 7.1 % Toney F AustinHEMOGLOBIN [id number] 00:00:00* Test Item Value Reference Range Interpretation Comme nts HEMOGLOBIN A1c (test code = 26527) 7.1 % Toney F AustinHEMOGLOBIN [id number] 00:00:00* Test Item Value Reference Range Interpretation Comme nts HEMOGLOBIN A1c (test code = 40073) 7.1 % Toney F AustinHEMOGLOBIN [id number] 00:00:00* Test Item Value Reference Range Interpretation Comme nts HEMOGLOBIN A1c (test code = 53777) 7.1 % Toney F AustinHEMOGLOBIN [id number] 00:00:00* Test Item Value Reference Range Interpretation Comme nts HEMOGLOBIN A1c (test code = 62882) 7.1 % HEMOGLOBIN [id number] 00:00:00* Test Item Value Reference Range Interpretation Comme nts HEMOGLOBIN A1c (test code = 29093) 7.1 % HEMOGLOBIN [id number] 00:00:00* Test Item Value Reference Range Interpretation Comme nts HEMOGLOBIN A1c (test code = 28940) 7.1 % HEMOGLOBIN [id number] 00:00:00* Test Item Value Reference Range Interpretation Comme nts HEMOGLOBIN A1c (test code = 44377) 7.1 % HEMOGLOBIN [id number] 00:00:00* Test Item Value Reference Range Interpretation Comme nts HEMOGLOBIN A1c (test code = 00494) 7.1 % HEMOGLOBIN [id number] 00:00:00* Test Item Value Reference Range Interpretation Comme nts HEMOGLOBIN A1c (test code = 39314) 7.1 % HEMOGLOBIN [id number] 00:00:00* Test Item Value Reference Range Interpretation Comme nts HEMOGLOBIN A1c (test code = 56679) 7.1 % HEMOGLOBIN [id number] 00:00:00* Test Item Value Reference Range Interpretation Comme nts HEMOGLOBIN A1c (test code = 73040) 7.1 % HEMOGLOBIN [id number] 00:00:00* Test Item Value Reference Range Interpretation Comme nts HEMOGLOBIN A1c (test code = 06096) 7.1 % COMPREHENSIVE METABOLIC [id number] 00:00:00* Test Item Value Reference Range Interpretation Comme nts GLUCOSE (test code = 2217) 234 MG/DL BUN (test code = 2208) 18 MG/DL CREATININE (test code = 2214) 0.61 MG/DL eGFR AMER. (test cod e = 14445) 108 ML/MIN/1.73 eGFR NON- AMER. (test code = 25416) 93 ML/MIN/1.73 CALC BUN/CREAT (test code = [...] code = 2219) 19 U/L Toney Camryn ZurdoLIPID [id number] 00:00:00* Test Item Value Reference Range Interpretation Comme nts CHOLESTEROL (test code = 2210) 199 MG/DL TRIGLYCERIDES (test code = 2232) 164 MG/DL HDL CHOLESTEROL (test code = 2220) 45 MG/DL CALC LDL CHOL (test code = 2237) 126 MG/DL RISK RATIO LDL/HDL (test cod e = 2238) 2.80 RATIO Toney Cowan ZurdoCOMPREHENSIVE METABOLIC [id number] 00:00:00* Test Item Value Reference Range Interpretation Comme nts GLUCOSE (test code = 2217) 234 MG/DL BUN (test code = 2208) 18 MG/DL CREATININE (test code = 2214) 0.61 MG/DL eGFR AMER. (test cod e = 41066) 108 ML/MIN/1.73 eGFR NON- AMER. (test code = 84759) 93 ML/MIN/1.73 CALC BUN/CREAT (test code = [...] = 2219) 19 U/L Toney Cowan AustinLIPID [id number] 00:00:00* Test Item Value Reference Range Interpretation Comme nts CHOLESTEROL (test code = 2210) 199 MG/DL TRIGLYCERIDES (test code = 2232) 164 MG/DL HDL CHOLESTEROL (test code = 2220) 45 MG/DL CALC LDL CHOL (test code = 2237) 126 MG/DL RISK RATIO LDL/HDL (test cod e = 2238) 2.80 RATIO Toney RennerCOMPREHENSIVE METABOLIC [id number] 00:00:00* Test Item Value Reference Range Interpretation Comme nts GLUCOSE (test code = 2217) 234 MG/DL BUN (test code = 2208) 18 MG/DL CREATININE (test code = 2214) 0.61 MG/DL eGFR AMER. (test cod e = 11826) 108 ML/MIN/1.73 eGFR NON- AMER. (test code = 81833) 93 ML/MIN/1.73 CALC BUN/CREAT (test code = [...] = 2219) 19 U/L Toney Cowan AustinLIPID [id number] 00:00:00* Test Item Value Reference Range Interpretation Comme nts CHOLESTEROL (test code = 2210) 199 MG/DL TRIGLYCERIDES (test code = 2232) 164 MG/DL HDL CHOLESTEROL (test code = 2220) 45 MG/DL CALC LDL CHOL (test code = 2237) 126 MG/DL RISK RATIO LDL/HDL (test cod e = 2238) 2.80 RATIO Toney RennerCOMPREHENSIVE METABOLIC [id number] 00:00:00* Test Item Value Reference Range Interpretation Comme nts GLUCOSE (test code = 2217) 234 MG/DL BUN (test code = 2208) 18 MG/DL CREATININE (test code = 2214) 0.61 MG/DL eGFR AMER. (test cod e = 86979) 108 ML/MIN/1.73 eGFR NON- AMER. (test code = 71988) 93 ML/MIN/1.73 CALC BUN/CREAT (test code = [...] = 2219) 19 U/L Toney Cowan AustinLIPID [id number] 00:00:00* Test Item Value Reference Range Interpretation Comme nts CHOLESTEROL (test code = 2210) 199 MG/DL TRIGLYCERIDES (test code = 2232) 164 MG/DL HDL CHOLESTEROL (test code = 2220) 45 MG/DL CALC LDL CHOL (test code = 2237) 126 MG/DL RISK RATIO LDL/HDL (test cod e = 2238) 2.80 RATIO Toney Cowan AustinCOMPREHENSIVE METABOLIC [id number] 00:00:00* Test Item Value Reference Range Interpretation Comme nts GLUCOSE (test code = 2217) 234 MG/DL BUN (test code = 2208) 18 MG/DL CREATININE (test code = 2214) 0.61 MG/DL eGFR AMER. (test cod e = 89061) 108 ML/MIN/1.73 eGFR NON- AMER. (test code = 92681) 93 ML/MIN/1.73 CALC BUN/CREAT (test code = [...] = 2219) 19 U/L Toney Cowan AustinLIPID [id number] 00:00:00* Test Item Value Reference Range Interpretation Comme nts CHOLESTEROL (test code = 2210) 199 MG/DL TRIGLYCERIDES (test code = 2232) 164 MG/DL HDL CHOLESTEROL (test code = 2220) 45 MG/DL CALC LDL CHOL (test code = 2237) 126 MG/DL RISK RATIO LDL/HDL (test cod e = 2238) 2.80 RATIO Toney Cowan AustinCOMPREHENSIVE METABOLIC [id number] 00:00:00* Test Item Value Reference Range Interpretation Comme nts GLUCOSE (test code = 2217) 234 MG/DL BUN (test code = 2208) 18 MG/DL CREATININE (test code = 2214) 0.61 MG/DL eGFR AMER. (test cod e = 43128) 108 ML/MIN/1.73 eGFR NON- AMER. (test code = 35470) 93 ML/MIN/1.73 CALC BUN/CREAT (test code = [...] code = 2219) 19 U/L Toney Cowan SpringerLIPID [id number] 00:00:00* Test Item Value Reference Range Interpretation Comme nts CHOLESTEROL (test code = 2210) 199 MG/DL TRIGLYCERIDES (test code = 2232) 164 MG/DL HDL CHOLESTEROL (test code = 2220) 45 MG/DL CALC LDL CHOL (test code = 2237) 126 MG/DL RISK RATIO LDL/HDL (test cod e = 2238) 2.80 RATIO Toney Cowan ZudroCOMPREHENSIVE METABOLIC [id number] 00:00:00* Test Item Value Reference Range Interpretation Comme nts GLUCOSE (test code = 2217) 234 MG/DL BUN (test code = 2208) 18 MG/DL CREATININE (test code = 2214) 0.61 MG/DL eGFR AMER. (test cod e = 05034) 108 ML/MIN/1.73 eGFR NON- AMER. (test code = 82242) 93 ML/MIN/1.73 CALC BUN/CREAT (test code = [...] code = 2219) 19 U/L Toney RennerLIPID [id number] 00:00:00* Test Item Value Reference Range Interpretation Comme nts CHOLESTEROL (test code = 2210) 199 MG/DL TRIGLYCERIDES (test code = 2232) 164 MG/DL HDL CHOLESTEROL (test code = 2220) 45 MG/DL CALC LDL CHOL (test code = 2237) 126 MG/DL RISK RATIO LDL/HDL (test cod e = 2238) 2.80 RATIO Toney RennerCOMPREHENSIVE METABOLIC [id number] 00:00:00* Test Item Value Reference Range Interpretation Comme nts GLUCOSE (test code = 2217) 234 MG/DL BUN (test code = 2208) 18 MG/DL CREATININE (test code = 2214) 0.61 MG/DL eGFR AMER. (test cod e = 12561) 108 ML/MIN/1.73 eGFR NON- AMER. (test code = 70585) 93 ML/MIN/1.73 CALC BUN/CREAT (test code = [...] = 2219) 19 U/L Toney Cowan AustinLIPID [id number] 00:00:00* Test Item Value Reference Range Interpretation Comme nts CHOLESTEROL (test code = 2210) 199 MG/DL TRIGLYCERIDES (test code = 2232) 164 MG/DL HDL CHOLESTEROL (test code = 2220) 45 MG/DL CALC LDL CHOL (test code = 2237) 126 MG/DL RISK RATIO LDL/HDL (test cod e = 2238) 2.80 RATIO Toney RennerCOMPREHENSIVE METABOLIC [id number] 00:00:00* Test Item Value Reference Range Interpretation Comme nts GLUCOSE (test code = 2217) 234 MG/DL BUN (test code = 2208) 18 MG/DL CREATININE (test code = 2214) 0.61 MG/DL eGFR AMER. (test cod e = 54424) 108 ML/MIN/1.73 eGFR NON- AMER. (test code = 94571) 93 ML/MIN/1.73 CALC BUN/CREAT (test code = [...] = 2219) 19 U/L Toney Cowan AustinLIPID [id number] 00:00:00* Test Item Value Reference Range Interpretation Comme nts CHOLESTEROL (test code = 2210) 199 MG/DL TRIGLYCERIDES (test code = 2232) 164 MG/DL HDL CHOLESTEROL (test code = 2220) 45 MG/DL CALC LDL CHOL (test code = 2237) 126 MG/DL RISK RATIO LDL/HDL (test cod e = 2238) 2.80 RATIO Toney Cowan ZurdoCOMPREHENSIVE METABOLIC [id number] 00:00:00* Test Item Value Reference Range Interpretation Comme nts GLUCOSE (test code = 2217) 234 MG/DL BUN (test code = 2208) 18 MG/DL CREATININE (test code = 2214) 0.61 MG/DL eGFR AMER. (test cod e = 77903) 108 ML/MIN/1.73 eGFR NON- AMER. (test code = 47611) 93 ML/MIN/1.73 CALC BUN/CREAT (test code = [...] (test code = 2219) 19 U/L LIPID [id number] 00:00:00* Test Item Value Reference Range Interpretation Comme nts CHOLESTEROL (test code = 2210) 199 MG/DL TRIGLYCERIDES (test code = 2232) 164 MG/DL HDL CHOLESTEROL (test code = 2220) 45 MG/DL CALC LDL CHOL (test code = 2237) 126 MG/DL RISK RATIO LDL/HDL (test cod e = 2238) 2.80 RATIO COMPREHENSIVE METABOLIC [id number] 00:00:00* Test Item Value Reference Range Interpretation Comme nts GLUCOSE (test code = 2217) 234 MG/DL BUN (test code = 2208) 18 MG/DL CREATININE (test code = 2214) 0.61 MG/DL eGFR AMER. (test cod e = 92020) 108 ML/MIN/1.73 eGFR NON- AMER. (test code = 57213) 93 ML/MIN/1.73 CALC BUN/CREAT (test code = [...] (test code = 2219) 19 U/L LIPID [id number] 00:00:00* Test Item Value Reference Range Interpretation Comme nts CHOLESTEROL (test code = 2210) 199 MG/DL TRIGLYCERIDES (test code = 2232) 164 MG/DL HDL CHOLESTEROL (test code = 2220) 45 MG/DL CALC LDL CHOL (test code = 2237) 126 MG/DL RISK RATIO LDL/HDL (test cod e = 2238) 2.80 RATIO COMPREHENSIVE METABOLIC [id number] 00:00:00* Test Item Value Reference Range Interpretation Comme nts GLUCOSE (test code = 2217) 234 MG/DL BUN (test code = 2208) 18 MG/DL CREATININE (test code = 2214) 0.61 MG/DL eGFR AMER. (test cod e = 71268) 108 ML/MIN/1.73 eGFR NON- AMER. (test code = 32739) 93 ML/MIN/1.73 CALC BUN/CREAT (test code = [...] (test code = 2219) 19 U/L LIPID [id number] 00:00:00* Test Item Value Reference Range Interpretation Comme nts CHOLESTEROL (test code = 2210) 199 MG/DL TRIGLYCERIDES (test code = 2232) 164 MG/DL HDL CHOLESTEROL (test code = 2220) 45 MG/DL CALC LDL CHOL (test code = 2237) 126 MG/DL RISK RATIO LDL/HDL (test cod e = 2238) 2.80 RATIO COMPREHENSIVE METABOLIC [id number] 00:00:00* Test Item Value Reference Range Interpretation Comme nts GLUCOSE (test code = 2217) 234 MG/DL BUN (test code = 2208) 18 MG/DL CREATININE (test code = 2214) 0.61 MG/DL eGFR AMER. (test cod e = 78911) 108 ML/MIN/1.73 eGFR NON- AMER. (test code = 94654) 93 ML/MIN/1.73 CALC BUN/CREAT (test code = [...] (test code = 2219) 19 U/L LIPID [id number] 00:00:00* Test Item Value Reference Range Interpretation Comme nts CHOLESTEROL (test code = 2210) 199 MG/DL TRIGLYCERIDES (test code = 2232) 164 MG/DL HDL CHOLESTEROL (test code = 2220) 45 MG/DL CALC LDL CHOL (test code = 2237) 126 MG/DL RISK RATIO LDL/HDL (test cod e = 2238) 2.80 RATIO COMPREHENSIVE METABOLIC [id number] 00:00:00* Test Item Value Reference Range Interpretation Comme nts GLUCOSE (test code = 2217) 234 MG/DL BUN (test code = 2208) 18 MG/DL CREATININE (test code = 2214) 0.61 MG/DL eGFR AMER. (test cod e = 16698) 108 ML/MIN/1.73 eGFR NON- AMER. (test code = 80475) 93 ML/MIN/1.73 CALC BUN/CREAT (test code = [...] (test code = 2219) 19 U/L LIPID [id number] 00:00:00* Test Item Value Reference Range Interpretation Comme nts CHOLESTEROL (test code = 2210) 199 MG/DL TRIGLYCERIDES (test code = 2232) 164 MG/DL HDL CHOLESTEROL (test code = 2220) 45 MG/DL CALC LDL CHOL (test code = 2237) 126 MG/DL RISK RATIO LDL/HDL (test cod e = 2238) 2.80 RATIO COMPREHENSIVE METABOLIC [id number] 00:00:00* Test Item Value Reference Range Interpretation Comme nts GLUCOSE (test code = 2217) 234 MG/DL BUN (test code = 2208) 18 MG/DL CREATININE (test code = 2214) 0.61 MG/DL eGFR AMER. (test cod e = 83219) 108 ML/MIN/1.73 eGFR NON- AMER. (test code = 99201) 93 ML/MIN/1.73 CALC BUN/CREAT (test code = [...] (test code = 2219) 19 U/L LIPID [id number] 00:00:00* Test Item Value Reference Range Interpretation Comme nts CHOLESTEROL (test code = 2210) 199 MG/DL TRIGLYCERIDES (test code = 2232) 164 MG/DL HDL CHOLESTEROL (test code = 2220) 45 MG/DL CALC LDL CHOL (test code = 2237) 126 MG/DL RISK RATIO LDL/HDL (test cod e = 2238) 2.80 RATIO COMPREHENSIVE METABOLIC [id number] 00:00:00* Test Item Value Reference Range Interpretation Comme nts GLUCOSE (test code = 2217) 234 MG/DL BUN (test code = 2208) 18 MG/DL CREATININE (test code = 2214) 0.61 MG/DL eGFR AMER. (test cod e = 73867) 108 ML/MIN/1.73 eGFR NON- AMER. (test code = 51871) 93 ML/MIN/1.73 CALC BUN/CREAT (test code = [...] (test code = 2219) 19 U/L LIPID [id number] 00:00:00* Test Item Value Reference Range Interpretation Comme nts CHOLESTEROL (test code = 2210) 199 MG/DL TRIGLYCERIDES (test code = 2232) 164 MG/DL HDL CHOLESTEROL (test code = 2220) 45 MG/DL CALC LDL CHOL (test code = 2237) 126 MG/DL RISK RATIO LDL/HDL (test cod e = 2238) 2.80 RATIO COMPREHENSIVE METABOLIC [id number] 00:00:00* Test Item Value Reference Range Interpretation Comme nts GLUCOSE (test code = 2217) 234 MG/DL BUN (test code = 8) 18 MG/DL CREATININE (test code = 2214) 0.61 MG/DL eGFR AMER. (test cod e = 23026) 108 ML/MIN/1.73 eGFR NON- AMER. (test code = 79490) 93 ML/MIN/1.73 CALC BUN/CREAT (test code = [...] (test code = 2219) 19 U/L LIPID [id number] 00:00:00* Test Item Value Reference Range Interpretation Comme nts CHOLESTEROL (test code = 2210) 199 MG/DL TRIGLYCERIDES (test code = 2232) 164 MG/DL HDL CHOLESTEROL (test code = 2220) 45 MG/DL CALC LDL CHOL (test code = 2237) 126 MG/DL RISK RATIO LDL/HDL (test cod e = 2238) 2.80 RATIO COMPREHENSIVE METABOLIC [id number] 00:00:00* Test Item Value Reference Range Interpretation Comme nts GLUCOSE (test code = 2217) 234 MG/DL BUN (test code = 2208) 18 MG/DL CREATININE (test code = 2214) 0.61 MG/DL eGFR AMER. (test cod e = 09645) 108 ML/MIN/1.73 eGFR NON- AMER. (test code = 02062) 93 ML/MIN/1.73 CALC BUN/CREAT (test code = [...] (test code = 2219) 19 U/L LIPID [id number] 00:00:00* Test Item Value Reference Range Interpretation Comme nts CHOLESTEROL (test code = 2210) 199 MG/DL TRIGLYCERIDES (test code = 2232) 164 MG/DL HDL CHOLESTEROL (test code = 2220) 45 MG/DL CALC LDL CHOL (test code = 2237) 126 MG/DL RISK RATIO LDL/HDL (test cod e = 2238) 2.80 RATIO HEMOGLOBIN [id number] 00:00:00* Test Item Value Reference Range Interpretation Comme nts HEMOGLOBIN A1c (test code = 82369) 9.3 % Toney RennerCOMPREHENSIVE METABOLIC [id number] 00:00:00* Test Item Value Reference Range Interpretation Comme nts GLUCOSE (test code = 2217) 189 MG/DL BUN (test code = 2208) 15 MG/DL CREATININE (test code = 2214) 0.55 MG/DL eGFR AMER. (test cod e = 13624) 112 ML/MIN/1.73 eGFR NON- AMER. (test code = 49580) 96 ML/MIN/1.73 CALC BUN/CREAT (test code = [...] ALT (test code = 2219) 21 U/L oTney RennerCBC W/AUTO [id number] 00:00:00* Test Item Value Reference Range Interpretation [...] code = 1015) 239 K/UL Toney RennerLIPID [id number] 00:00:00* Test Item Value Reference Range Interpretation Comme nts CHOLESTEROL (test code = 2210) 240 MG/DL TRIGLYCERIDES (test code = 2232) 137 MG/DL HDL CHOLESTEROL (test code = 2220) 48 MG/DL CALC LDL CHOL (test code = 2237) 165 MG/DL RISK RATIO LDL/HDL (test cod e = 2238) 3.43 RATIO Toney RennerMICROALBUMIN/CREATININE, RANDOM AND [id number] 00:00:00* Test Item Value Reference Range Interpretation Comme nts CREATININE, URINE, CONC. (te st code = 2072) 146.0 MG/DL ALBUMIN, URINE, RANDOM (test code = 33784) 1.0 MG/DL CALC ALBUMIN/CREAT, RND (baljinder t code = 08365) 7 MG/G Toney RennerHEMOGLOBIN [id number] 00:00:00* Test Item Value Reference Range Interpretation Comme katty HEMOGLOBIN A1c (test code = 90135) 9.3 % Toney RennerCOMPREHENSIVE METABOLIC [id number] 00:00:00* Test Item Value Reference Range Interpretation Comme nts GLUCOSE (test code = 2217) 189 MG/DL BUN (test code = 2208) 15 MG/DL CREATININE (test code = 2214) 0.55 MG/DL eGFR AMER. (test cod e = 03960) 112 ML/MIN/1.73 eGFR NON- AMER. (test code = 81989) 96 ML/MIN/1.73 CALC BUN/CREAT (test code = [...] = 2219) 21 U/L Toney RennerCOMPREHENSIVE METABOLIC [id number] 00:00:00* Test Item Value Reference Range Interpretation Comme nts GLUCOSE (test code = 2217) 189 MG/DL BUN (test code = 2208) 15 MG/DL CREATININE (test code = 2214) 0.55 MG/DL eGFR AMER. (test cod e = 37666) 112 ML/MIN/1.73 eGFR NON- AMER. (test code = 46973) 96 ML/MIN/1.73 CALC BUN/CREAT (test code = [...] (test code = 2219) 21 U[facility] [id number] 00:00:00* Test Item Value Reference Range Interpretation [...] = 1015) 239 K/UL Toney Cowan AustinLIPID [id number] 00:00:00* Test Item Value Reference Range Interpretation Comme nts CHOLESTEROL (test code = 2210) 240 MG/DL TRIGLYCERIDES (test code = 2232) 137 MG/DL HDL CHOLESTEROL (test code = 2220) 48 MG/DL CALC LDL CHOL (test code = 2237) 165 MG/DL RISK RATIO LDL/HDL (test cod e = 2238) 3.43 RATIO Toney Cowan AustinMICROALBUMIN/CREATININE, RANDOM AND [id number] 00:00:00* Test Item Value Reference Range Interpretation Comme nts CREATININE, URINE, CONC. (te st code = 2072) 146.0 MG/DL ALBUMIN, URINE, RANDOM (test code = 92386) 1.0 MG/DL CALC ALBUMIN/CREAT, RND (baljinder t code = 69208) 7 MG/G Toney RennerHEMOGLOBIN [id number] 00:00:00* Test Item Value Reference Range Interpretation Comme [facility] HEMOGLOBIN A1c (test code = 05310) 9.3 % Toney RennerCOMPREHENSIVE METABOLIC [id number] 00:00:00* Test Item Value Reference Range Interpretation Comme nts GLUCOSE (test code = 2217) 189 MG/DL BUN (test code = 2208) 15 MG/DL CREATININE (test code = 2214) 0.55 MG/DL eGFR AMER. (test cod e = 63806) 112 ML/MIN/1.73 eGFR NON- AMER. (test code = 23604) 96 ML/MIN/1.73 CALC BUN/CREAT (test code = [...] = 2219) 21 U/L Toney RennerCBC W/AUTO [id number] 00:00:00* Test Item Value Reference Range Interpretation [...] code = 1015) 239 K/UL Toney RennerLIPID [id number] 00:00:00* Test Item Value Reference Range Interpretation Comme nts CHOLESTEROL (test code = 2210) 240 MG/DL TRIGLYCERIDES (test code = 2232) 137 MG/DL HDL CHOLESTEROL (test code = 2220) 48 MG/DL CALC LDL CHOL (test code = 2237) 165 MG/DL RISK RATIO LDL/HDL (test cod e = 2238) 3.43 RATIO Toney RennerMICROALBUMIN/CREATININE, RANDOM AND [id number] 00:00:00* Test Item Value Reference Range Interpretation Comme nts CREATININE, URINE, CONC. (te st code = 2071) 146.0 MG/DL ALBUMIN, URINE, RANDOM (test code = 67397) 1.0 MG/DL CALC ALBUMIN/CREAT, RND (baljinder t code = 19292) 7 MG/G Toney RennerCBC W/AUTO [id number] 00:00:00* Test Item Value Reference Range Interpretation [...] code = 1015) 239 K/UL Toney RennerLIPID [id number] 00:00:00* Test Item Value Reference Range Interpretation Comme nts CHOLESTEROL (test code = 2210) 240 MG/DL TRIGLYCERIDES (test code = 2232) 137 MG/DL HDL CHOLESTEROL (test code = 2220) 48 MG/DL CALC LDL CHOL (test code = 2237) 165 MG/DL RISK RATIO LDL/HDL (test cod e = 2238) 3.43 RATIO Toney RennerMICROALBUMIN/CREATININE, RANDOM AND [id number] 00:00:00* Test Item Value Reference Range Interpretation Comme nts CREATININE, URINE, CONC. (te st code = 2071) 146.0 MG/DL ALBUMIN, URINE, RANDOM (test code = 69185) 1.0 MG/DL CALC ALBUMIN/CREAT, RND (baljinder t code = 96109) 7 MG/G Toney RennerHEMOGLOBIN [id number] 00:00:00* Test Item Value Reference Range Interpretation Comme nts HEMOGLOBIN A1c (test code = 61796) 9.3 % Toney RennerCOMPREHENSIVE METABOLIC [id number] 00:00:00* Test Item Value Reference Range Interpretation Comme nts GLUCOSE (test code = 2217) 189 MG/DL BUN (test code = 2208) 15 MG/DL CREATININE (test code = 2214) 0.55 MG/DL eGFR AMER. (test cod e = 80919) 112 ML/MIN/1.73 eGFR NON- AMER. (test code = 34252) 96 ML/MIN/1.73 CALC BUN/CREAT (test code = [...] = 2219) 21 U/L Toney RennerCBC W/AUTO [id number] 00:00:00* Test Item Value Reference Range Interpretation [...] = 1015) 239 K/UL Toney Cowan AustinLIPID [id number] 00:00:00* Test Item Value Reference Range Interpretation Comme nts CHOLESTEROL (test code = 2210) 240 MG/DL TRIGLYCERIDES (test code = 2232) 137 MG/DL HDL CHOLESTEROL (test code = 2220) 48 MG/DL CALC LDL CHOL (test code = 2237) 165 MG/DL RISK RATIO LDL/HDL (test cod e = 2238) 3.43 RATIO Toney Cowan AustinMICROALBUMIN/CREATININE, RANDOM AND [id number] 00:00:00* Test Item Value Reference Range Interpretation Comme nts CREATININE, URINE, CONC. (te st code = 2072) 146.0 MG/DL ALBUMIN, URINE, RANDOM (test code = 36019) 1.0 MG/DL CALC ALBUMIN/CREAT, RND (baljinder t code = 74973) 7 MG/G Toney RennerHEMOGLOBIN [id number] 00:00:00* Test Item Value Reference Range Interpretation Comme nts HEMOGLOBIN A1c (test code = 47253) 9.3 % Toney RennerCOMPREHENSIVE METABOLIC [id number] 00:00:00* Test Item Value Reference Range Interpretation Comme nts GLUCOSE (test code = 2217) 189 MG/DL BUN (test code = 2208) 15 MG/DL CREATININE (test code = 2214) 0.55 MG/DL eGFR AMER. (test cod e = 88117) 112 ML/MIN/1.73 eGFR NON- AMER. (test code = 72073) 96 ML/MIN/1.73 CALC BUN/CREAT (test code = [...] = 2219) 21 U/L Toney RennerCBC W/AUTO [id number] 00:00:00* Test Item Value Reference Range Interpretation [...] code = 1015) 239 K/UL Toney RennerLIPID [id number] 00:00:00* Test Item Value Reference Range Interpretation Comme nts CHOLESTEROL (test code = 2210) 240 MG/DL TRIGLYCERIDES (test code = 2232) 137 MG/DL HDL CHOLESTEROL (test code = 2220) 48 MG/DL CALC LDL CHOL (test code = 2237) 165 MG/DL RISK RATIO LDL/HDL (test cod e = 2238) 3.43 RATIO Toney RennerMICROALBUMIN/CREATININE, RANDOM AND [id number] 00:00:00* Test Item Value Reference Range Interpretation Comme nts CREATININE, URINE, CONC. (te st code = 2072) 146.0 MG/DL ALBUMIN, URINE, RANDOM (test code = 73219) 1.0 MG/DL CALC ALBUMIN/CREAT, RND (baljinder t code = 39709) 7 MG/G Toney RennerHEMOGLOBIN [id number] 00:00:00* Test Item Value Reference Range Interpretation Comme nts HEMOGLOBIN A1c (test code = 15190) 9.3 % Toney RennerCOMPREHENSIVE METABOLIC [id number] 00:00:00* Test Item Value Reference Range Interpretation Comme nts GLUCOSE (test code = 2217) 189 MG/DL BUN (test code = 2208) 15 MG/DL CREATININE (test code = 2214) 0.55 MG/DL eGFR AMER. (test cod e = 22708) 112 ML/MIN/1.73 eGFR NON- AMER. (test code = 67627) 96 ML/MIN/1.73 CALC BUN/CREAT (test code = [...] = 2219) 21 U/L Toney RennerCBC W/AUTO [id number] 00:00:00* Test Item Value Reference Range Interpretation [...] code = 1015) 239 K/UL Toney RennerLIPID [id number] 00:00:00* Test Item Value Reference Range Interpretation Comme nts CHOLESTEROL (test code = 2210) 240 MG/DL TRIGLYCERIDES (test code = 2232) 137 MG/DL HDL CHOLESTEROL (test code = 2220) 48 MG/DL CALC LDL CHOL (test code = 2237) 165 MG/DL RISK RATIO LDL/HDL (test cod e = 2238) 3.43 RATIO Toney Cowan AustinMICROALBUMIN/CREATININE, RANDOM AND [id number] 00:00:00* Test Item Value Reference Range Interpretation Comme nts CREATININE, URINE, CONC. (te st code = 2072) 146.0 MG/DL ALBUMIN, URINE, RANDOM (test code = 75648) 1.0 MG/DL CALC ALBUMIN/CREAT, RND (baljnider t code = 91532) 7 MG/G Toney RennerHEMOGLOBIN [id number] 00:00:00* Test Item Value Reference Range Interpretation Comme [facility]ty HEMOGLOBIN A1c (test code = 95951) 9.3 % Toney RennerCOMPREHENSIVE METABOLIC [id number] 00:00:00* Test Item Value Reference Range Interpretation Comme nts GLUCOSE (test code = 2217) 189 MG/DL BUN (test code = 2208) 15 MG/DL CREATININE (test code = 2214) 0.55 MG/DL eGFR AMER. (test cod e = 34948) 112 ML/MIN/1.73 eGFR NON- AMER. (test code = 44423) 96 ML/MIN/1.73 CALC BUN/CREAT (test code = [...] = 2219) 21 U/L Toney RennerCBC W/AUTO [id number] 00:00:00* Test Item Value Reference Range Interpretation [...] code = 1015) 239 K/UL Toney RennerLIPID [id number] 00:00:00* Test Item Value Reference Range Interpretation Comme nts CHOLESTEROL (test code = 2210) 240 MG/DL TRIGLYCERIDES (test code = 2232) 137 MG/DL HDL CHOLESTEROL (test code = 2220) 48 MG/DL CALC LDL CHOL (test code = 2237) 165 MG/DL RISK RATIO LDL/HDL (test cod e = 2238) 3.43 RATIO Toney RennerMICROALBUMIN/CREATININE, RANDOM AND [id number] 00:00:00* Test Item Value Reference Range Interpretation Comme nts CREATININE, URINE, CONC. (te st code = 2072) 146.0 MG/DL ALBUMIN, URINE, RANDOM (test code = 53392) 1.0 MG/DL CALC ALBUMIN/CREAT, RND (baljinder t code = 51125) 7 MG/G Toney RennerHEMOGLOBIN [id number] 00:00:00* Test Item Value Reference Range Interpretation Comme nts HEMOGLOBIN A1c (test code = 77707) 9.3 % Toney RennerHEMOGLOBIN [id number] 00:00:00* Test Item Value Reference Range Interpretation Comme nts HEMOGLOBIN A1c (test code = 63458) 9.3 % Toney RennerCOMPREHENSIVE METABOLIC [id number] 00:00:00* Test Item Value Reference Range Interpretation Comme nts GLUCOSE (test code = 2217) 189 MG/DL BUN (test code = 2208) 15 MG/DL CREATININE (test code = 2214) 0.55 MG/DL eGFR AMER. (test cod e = 93578) 112 ML/MIN/1.73 eGFR NON- AMER. (test code = 62539) 96 ML/MIN/1.73 CALC BUN/CREAT (test code = [...] = 2219) 21 U/L Toney RennerCBC W/AUTO [id number] 00:00:00* Test Item Value Reference Range Interpretation [...] = 1015) 239 K/UL Toney Cowan AustinLIPID [id number] 00:00:00* Test Item Value Reference Range Interpretation Comme nts CHOLESTEROL (test code = 2210) 240 MG/DL TRIGLYCERIDES (test code = 2232) 137 MG/DL HDL CHOLESTEROL (test code = 2220) 48 MG/DL CALC LDL CHOL (test code = 2237) 165 MG/DL RISK RATIO LDL/HDL (test cod e = 2238) 3.43 RATIO Toney RennerMICROALBUMIN/CREATININE, RANDOM AND [id number] 00:00:00* Test Item Value Reference Range Interpretation Comme nts CREATININE, URINE, CONC. (te st code = 2072) 146.0 MG/DL ALBUMIN, URINE, RANDOM (test code = 52918) 1.0 MG/DL CALC ALBUMIN/CREAT, RND (baljinder t code = 95675) 7 MG/G Toney RennerHEMOGLOBIN [id number] 00:00:00* Test Item Value Reference Range Interpretation Comme nts HEMOGLOBIN A1c (test code = 44157) 9.3 % COMPREHENSIVE METABOLIC [id number] 00:00:00* Test Item Value Reference Range Interpretation Comme nts GLUCOSE (test code = 2217) 189 MG/DL BUN (test code = 2208) 15 MG/DL CREATININE (test code = 2214) 0.55 MG/DL eGFR AMER. (test cod e = 98463) 112 ML/MIN/1.73 eGFR NON- AMER. (test code = 02849) 96 ML/MIN/1.73 CALC BUN/CREAT (test code = [...] code = 2219) 21 U/L CBC W/AUTO [id number] 00:00:00* Test Item Value Reference Range Interpretation [...] (test code = 1015) 239 K/UL LIPID [id number] 00:00:00* Test Item Value Reference Range Interpretation Comme nts CHOLESTEROL (test code = 2210) 240 MG/DL TRIGLYCERIDES (test code = 2232) 137 MG/DL HDL CHOLESTEROL (test code = 2220) 48 MG/DL CALC LDL CHOL (test code = 2237) 165 MG/DL RISK RATIO LDL/HDL (test cod e = 2238) 3.43 RATIO MICROALBUMIN/CREATININE, RANDOM AND [id number] 00:00:00* Test Item Value Reference Range Interpretation Comme nts CREATININE, URINE, CONC. (te st code = 2072) 146.0 MG/DL ALBUMIN, URINE, RANDOM (test code = 64740) 1.0 MG/DL CALC ALBUMIN/CREAT, RND (baljinder t code = 41065) 7 MG/G HEMOGLOBIN [id number] 00:00:00* Test Item Value Reference Range Interpretation Comme nts HEMOGLOBIN A1c (test code = 11515) 9.3 % COMPREHENSIVE METABOLIC [id number] 00:00:00* Test Item Value Reference Range Interpretation Comme nts GLUCOSE (test code = 2217) 189 MG/DL BUN (test code = 2208) 15 MG/DL CREATININE (test code = 2214) 0.55 MG/DL eGFR AMER. (test cod e = 19479) 112 ML/MIN/1.73 eGFR NON- AMER. (test code = 06353) 96 ML/MIN/1.73 CALC BUN/CREAT (test code = [...] code = 2219) 21 U/L CBC W/AUTO [id number] 00:00:00* Test Item Value Reference Range Interpretation [...] (test code = 1015) 239 K/UL LIPID [id number] 00:00:00* Test Item Value Reference Range Interpretation Comme nts CHOLESTEROL (test code = 2210) 240 MG/DL TRIGLYCERIDES (test code = 2232) 137 MG/DL HDL CHOLESTEROL (test code = 2220) 48 MG/DL CALC LDL CHOL (test code = 2237) 165 MG/DL RISK RATIO LDL/HDL (test cod e = 2238) 3.43 RATIO MICROALBUMIN/CREATININE, RANDOM AND [id number] 00:00:00* Test Item Value Reference Range Interpretation Comme nts CREATININE, URINE, CONC. (te st code = 2072) 146.0 MG/DL ALBUMIN, URINE, RANDOM (test code = 77477) 1.0 MG/DL CALC ALBUMIN/CREAT, RND (baljinder t code = 09479) 7 MG/G HEMOGLOBIN [id number] 00:00:00* Test Item Value Reference Range Interpretation Comme nts HEMOGLOBIN A1c (test code = 15636) 9.3 % COMPREHENSIVE METABOLIC [id number] 00:00:00* Test Item Value Reference Range Interpretation Comme nts GLUCOSE (test code = 2217) 189 MG/DL BUN (test code = 2208) 15 MG/DL CREATININE (test code = 2214) 0.55 MG/DL eGFR AMER. (test cod e = 26101) 112 ML/MIN/1.73 eGFR NON- AMER. (test code = 79200) 96 ML/MIN/1.73 CALC BUN/CREAT (test code = [...] code = 2219) 21 U/L CBC W/AUTO [id number] 00:00:00* Test Item Value Reference Range Interpretation [...] (test code = 1015) 239 K/UL LIPID [id number] 00:00:00* Test Item Value Reference Range Interpretation Comme nts CHOLESTEROL (test code = 2210) 240 MG/DL TRIGLYCERIDES (test code = 2232) 137 MG/DL HDL CHOLESTEROL (test code = 2220) 48 MG/DL CALC LDL CHOL (test code = 2237) 165 MG/DL RISK RATIO LDL/HDL (test cod e = 2238) 3.43 RATIO MICROALBUMIN/CREATININE, RANDOM AND [id number] 00:00:00* Test Item Value Reference Range Interpretation Comme nts CREATININE, URINE, CONC. (te st code = 2072) 146.0 MG/DL ALBUMIN, URINE, RANDOM (test code = 63888) 1.0 MG/DL CALC ALBUMIN/CREAT, RND (baljinder t code = 27652) 7 MG/G HEMOGLOBIN [id number] 00:00:00* Test Item Value Reference Range Interpretation Comme nts HEMOGLOBIN A1c (test code = 11922) 9.3 % COMPREHENSIVE METABOLIC [id number] 00:00:00* Test Item Value Reference Range Interpretation Comme nts GLUCOSE (test code = 2217) 189 MG/DL BUN (test code = 2208) 15 MG/DL CREATININE (test code = 2214) 0.55 MG/DL eGFR AMER. (test cod e = 85079) 112 ML/MIN/1.73 eGFR NON- AMER. (test code = 02964) 96 ML/MIN/1.73 CALC BUN/CREAT (test code = [...] code = 2219) 21 U/L CBC W/AUTO [id number] 00:00:00* Test Item Value Reference Range Interpretation [...] (test code = 1015) 239 K/UL HEMOGLOBIN [id number] 00:00:00* Test Item Value Reference Range Interpretation Comme nts HEMOGLOBIN A1c (test code = 07314) 9.3 % LIPID [id number] 00:00:00* Test Item Value Reference Range Interpretation Comme nts CHOLESTEROL (test code = 2210) 240 MG/DL TRIGLYCERIDES (test code = 2232) 137 MG/DL HDL CHOLESTEROL (test code = 2220) 48 MG/DL CALC LDL CHOL (test code = 2237) 165 MG/DL RISK RATIO LDL/HDL (test cod e = 2238) 3.43 RATIO MICROALBUMIN/CREATININE, RANDOM AND [id number] 00:00:00* Test Item Value Reference Range Interpretation Comme nts CREATININE, URINE, CONC. (te st code = 2072) 146.0 MG/DL ALBUMIN, URINE, RANDOM (test code = 29628) 1.0 MG/DL CALC ALBUMIN/CREAT, RND (baljinder t code = 41570) 7 MG/G COMPREHENSIVE METABOLIC [id number] 00:00:00* Test Item Value Reference Range Interpretation Comme nts GLUCOSE (test code = 2217) 189 MG/DL BUN (test code = 2208) 15 MG/DL CREATININE (test code = 2214) 0.55 MG/DL eGFR AMER. (test cod e = 00194) 112 ML/MIN/1.73 eGFR NON- AMER. (test code = 81489) 96 ML/MIN/1.73 CALC BUN/CREAT (test code = [...] code = 2219) 21 U/L CBC W/AUTO [id number] 00:00:00* Test Item Value Reference Range Interpretation [...] (test code = 1015) 239 K/UL HEMOGLOBIN [id number] 00:00:00* Test Item Value Reference Range Interpretation Comme nts HEMOGLOBIN A1c (test code = 89252) 9.3 % COMPREHENSIVE METABOLIC [id number] 00:00:00* Test Item Value Reference Range Interpretation Comme nts GLUCOSE (test code = 2217) 189 MG/DL BUN (test code = 2208) 15 MG/DL CREATININE (test code = 2214) 0.55 MG/DL eGFR AMER. (test cod e = 24190) 112 ML/MIN/1.73 eGFR NON- AMER. (test code = 86002) 96 ML/MIN/1.73 CALC BUN/CREAT (test code = [...] (test code = 2219) 21 U/L LIPID [id number] 00:00:00* Test Item Value Reference Range Interpretation Comme nts CHOLESTEROL (test code = 2210) 240 MG/DL TRIGLYCERIDES (test code = 2232) 137 MG/DL HDL CHOLESTEROL (test code = 2220) 48 MG/DL CALC LDL CHOL (test code = 2237) 165 MG/DL RISK RATIO LDL/HDL (test cod e = 2238) 3.43 RATIO CBC W/AUTO [id number] 00:00:00* Test Item Value Reference Range Interpretation [...] (test code = 1015) 239 K/UL LIPID [id number] 00:00:00* Test Item Value Reference Range Interpretation Comme nts CHOLESTEROL (test code = 2210) 240 MG/DL TRIGLYCERIDES (test code = 2232) 137 MG/DL HDL CHOLESTEROL (test code = 2220) 48 MG/DL CALC LDL CHOL (test code = 2237) 165 MG/DL RISK RATIO LDL/HDL (test cod e = 2238) 3.43 RATIO MICROALBUMIN/CREATININE, RANDOM AND [id number] 00:00:00* Test Item Value Reference Range Interpretation Comme nts CREATININE, URINE, CONC. (te st code = 207) 146.0 MG/DL ALBUMIN, URINE, RANDOM (test code = 32984) 1.0 MG/DL CALC ALBUMIN/CREAT, RND (baljinder t code = 16423) 7 MG/G MICROALBUMIN/CREATININE, RANDOM AND [id number] 00:00:00* Test Item Value Reference Range Interpretation Comme nts CREATININE, URINE, CONC. (te st code = 2071) 146.0 MG/DL ALBUMIN, URINE, RANDOM (test code = 12938) 1.0 MG/DL CALC ALBUMIN/CREAT, RND (baljinder t code = 39384) 7 MG/G HEMOGLOBIN [id number] 00:00:00* Test Item Value Reference Range Interpretation Comme nts HEMOGLOBIN A1c (test code = 33449) 9.3 % COMPREHENSIVE METABOLIC [id number] 00:00:00* Test Item Value Reference Range Interpretation Comme nts GLUCOSE (test code = 2217) 189 MG/DL BUN (test code = 2208) 15 MG/DL CREATININE (test code = 2214) 0.55 MG/DL eGFR AMER. (test cod e = 10533) 112 ML/MIN/1.73 eGFR NON- AMER. (test code = 53403) 96 ML/MIN/1.73 CALC BUN/CREAT (test code = [...] code = 2219) 21 U/L CBC W/AUTO [id number] 00:00:00* Test Item Value Reference Range Interpretation [...] (test code = 1015) 239 K/UL LIPID [id number] 00:00:00* Test Item Value Reference Range Interpretation Comme nts CHOLESTEROL (test code = 2210) 240 MG/DL TRIGLYCERIDES (test code = 2232) 137 MG/DL HDL CHOLESTEROL (test code = 2220) 48 MG/DL CALC LDL CHOL (test code = 2237) 165 MG/DL RISK RATIO LDL/HDL (test cod e = 2238) 3.43 RATIO MICROALBUMIN/CREATININE, RANDOM AND [id number] 00:00:00* Test Item Value Reference Range Interpretation Comme nts CREATININE, URINE, CONC. (te st code = 2072) 146.0 MG/DL ALBUMIN, URINE, RANDOM (test code = 53080) 1.0 MG/DL CALC ALBUMIN/CREAT, RND (blajinder t code = 51609) 7 MG/G HEMOGLOBIN [id number] 00:00:00* Test Item Value Reference Range Interpretation Comme nts HEMOGLOBIN A1c (test code = 42412) 9.3 % COMPREHENSIVE METABOLIC [id number] 00:00:00* Test Item Value Reference Range Interpretation Comme nts GLUCOSE (test code = 2217) 189 MG/DL BUN (test code = 2208) 15 MG/DL CREATININE (test code = 2214) 0.55 MG/DL eGFR AMER. (test cod e = 57052) 112 ML/MIN/1.73 eGFR NON- AMER. (test code = 86619) 96 ML/MIN/1.73 CALC BUN/CREAT (test code = 2235) 27 RATIO SODIUM (test code = 2231) 142 MEQ/L POTASSIUM (test code = 2228) 4.6 MEQ/L CHLORIDE (test code = 2215) 103 MEQ/L CARBON DIOXIDE (test code = 2206) 26 MEQ/L CALCIUM (test code = 2209) 9.6 MG/DL PROTEIN, TOTAL (test code = 222) 7.5 G/DL ALBUMIN (test code = 2201) 4.3 G/DL CALC GLOBULIN (test code = 2240) 3.2 G/DL CALC A/G RATIO (test code = 2234) 1.3 RATIO BILIRUBIN, TOTAL (test code = 2207) 0.5 MG/DL ALKALINE PHOSPHATASE (test code = 2204) 92 U/L AST (test code = 2218) 22 U/L ALT (test code = 2219) 21 U/L CBC W/AUTO [id number] 00:00:00* Test Item Value Reference Range Interpretation [...] (test code = 1015) 239 K/UL LIPID [id number] 00:00:00* Test Item Value Reference Range Interpretation Comme nts CHOLESTEROL (test code = 2210) 240 MG/DL TRIGLYCERIDES (test code = 2232) 137 MG/DL HDL CHOLESTEROL (test code = 2220) 48 MG/DL CALC LDL CHOL (test code = 2237) 165 MG/DL RISK RATIO LDL/HDL (test cod e = 2238) 3.43 RATIO MICROALBUMIN/CREATININE, RANDOM AND [id number] 00:00:00* Test Item Value Reference Range Interpretation Comme nts CREATININE, URINE, CONC. (te st code = 2072) 146.0 MG/DL ALBUMIN, URINE, RANDOM (test code = 76351) 1.0 MG/DL CALC ALBUMIN/CREAT, RND (baljinder t code = 04916) 7 MG/G HEMOGLOBIN [id number] 00:00:00* Test Item Value Reference Range Interpretation Comme nts HEMOGLOBIN A1c (test code = 72087) 9.3 % COMPREHENSIVE METABOLIC [id number] 00:00:00* Test Item Value Reference Range Interpretation Comme nts GLUCOSE (test code = 2217) 189 MG/DL BUN (test code = 2208) 15 MG/DL CREATININE (test code = 2214) 0.55 MG/DL eGFR AMER. (test cod e = 11771) 112 ML/MIN/1.73 eGFR NON- AMER. (test code = 56053) 96 ML/MIN/1.73 CALC BUN/CREAT (test code = [...] code = 2219) 21 U/L CBC W/AUTO [id number] 00:00:00* Test Item Value Reference Range Interpretation [...] (test code = 1015) 239 K/UL LIPID [id number] 00:00:00* Test Item Value Reference Range Interpretation Comme nts CHOLESTEROL (test code = 2210) 240 MG/DL TRIGLYCERIDES (test code = 2232) 137 MG/DL HDL CHOLESTEROL (test code = 2220) 48 MG/DL CALC LDL CHOL (test code = 2237) 165 MG/DL RISK RATIO LDL/HDL (test cod e = 2238) 3.43 RATIO MICROALBUMIN/CREATININE, RANDOM AND [id number] 00:00:00* Test Item Value Reference Range Interpretation Comme nts CREATININE, URINE, CONC. (te st code = 2072) 146.0 MG/DL ALBUMIN, URINE, RANDOM (test code = 54459) 1.0 MG/DL CALC ALBUMIN/CREAT, RND (baljinder t code = 44872) 7 MG/G [id number] 06:37:00* Test Item Value Reference Range Interpretation Comme nts GLUBED (test code = GLUBED) 168 mg/dL 70-105 H Performed by cer tified cut out operator at [facility]2019-04-11 20:57:00* Test Item Value Reference Range Interpretation Comme nts GLUBED (test code = GLUBED) 158 mg/dL 70-105 H Performed by cer tified cut out operator at [facility]2019-04-11 16:41:00* Test Item Value Reference Range Interpretation Comme nts GLUBED (test code = GLUBED) 136 mg/dL 70-105 H Performed by cer tified cut out operator at [facility]2019-04-11 11:35:00* Test Item Value Reference Range Interpretation Comme nts GLUBED (test code = GLUBED) 192 mg/dL 70-105 H Performed by cer tified cut out operator at [facility]2019-04-11 07:44:00* Test Item Value Reference Range Interpretation Comme nts GLUBED (test code = GLUBED) 145 mg/dL 70-105 H Performed by cer tified cut out operator at [facility]2019-04-10 21:40:00* Test Item Value Reference Range Interpretation Comme nts GLUBED (test code = GLUBED) 159 mg/dL 70-105 H Performed by cer tified cut out operator at [facility]2019-04-10 16:47:00* Test Item Value Reference Range Interpretation Comme nts GLUBED (test code = GLUBED) 169 mg/dL 70-105 H Performed by cer tified cut out operator at [facility] [id number] 11:49:00* Test Item Value Reference Range Interpretation Comme nts GLUBED (test code = GLUBED) 137 mg/dL 70-105 H Performed by cer tified cut out operator at [facility] - CT ABD PELVIS W/O [id number] 15:41:00Name: MARTINEZDANIELLE [facility] : 1950 Age/S: 68 / F [address] [facility] Unit #: [id number] Loc: [place], [place] [address] Phys: Yonatan Swain Jr, MD Acct: [id number] Dis Date: Status: REG ER PHONE #: [phone] Exam Date: 02/02/2019 1449 FAX #: [phone] Reason:ABD APIN EXAMS: CPT CODE: [id number] CT ABD PELVIS W/O CONT 57133 - CT ABD PELVIS W/O CONT CLINICALHISTORY: Abdominal pain. COMPARISON: None TECHNIQUE: Sequential axial [...] no evidence of free air, free fluid orpneumatosis. The distal stomach is decompressed which accentuates mucosa. There is an area of focalhaziness within the mesentery with associated small 9 x 6 mm soft tissue and adjacent PAGE 1 SignedReport (CONTINUED) Name: DANIELLE MARTINEZ [facility] : 1950 Age/S: 68/ F [address] [facility] Unit #: [id number] Loc: [place] [address] Phys: Yonatan Swain Jr, MD Acct: [id number] Dis Date: Status: REG ER PHONE #: [phone] Exam Date: 02/02/2019 1449 FAX #: [phone] Reason: ABD APIN EXAMS: CPT CODE: [id number] CT ABD PELVIS W/O CONT 97564 (Continued) calci fications (series 300, image #[id number]; series #2 image [...] mucosa which may be in part related toincomplete distention. An inflammatory process, however, is not excluded. Other nonemergent findings described above. PAGE 2 Signed Report (CONTINUED) Name: DANIELLE MARTINEZ [facility] : 1950 Age/S: 68 / F [address] [facility] Unit #: [id number] Loc: [place] [address] Phys: Yonatan Swain Jr, MD Acct: [id number] Dis Date: Status: REG ER PHONE #: [phone] ExamDate: 02/02/2019 1449 FAX #: [phone] Reason: ABD APIN EXAMS: CPT CODE: [id number] CT ABD PELVISW/O CONT 09740 (Continued) at 1541 Reported and signed by: Liz Rutledge MD CC: Reagan Hirsch Technologist:Yared Castle RT (R) CT (R) CTDI: 10.54 DLP: 573.56 Trnscb Date/Time: 02/02/2019 (1541) [email or web address] Orig Print D/T:S: 02/02/2019 (1544) CTDI: 10.54 DLP: 573.56 PAGE 3 Signed ReportURINALYSIS W REFLEX [id number] 15:22:00* Test Item Value Reference Range Interpretation [...] MUCU) 2+ /hpf NEG,FEW A B-TYPE NATRIURETIC [id number] 15:02:00* Test Item Value Reference Range Interpretation Comme nts B-TYPE NATRIURETIC PEPTIDE ( test code = BNP) 34.8 PG/ML 0-100 N BASIC METABOLIC [id number] 14:51:00* Test Item Value Reference Range Interpretation [...] > or = 60 ml/min/1.73M2IF PATIENT IS -[place], MULTIPLY REPORTED RESULT BY1.21. CREATININE (test code = CREAT) 0.70 mg/dL 0.51-0.95 N CALCIUM (test code = CA) 9.2 mg/dL 8.5-10.1 N [id number] 14:51:00* Test Item Value Reference Range Interpretation Comme nts LIPASE (test code = LIP) 44 U/L 73-393 L [id number] 14:51:00* Test Item Value Reference Range Interpretation Comme nts TROPONIN-I (test code = TROPI) <0.015 ng/ml 0.00-0.045 N GUIDELINES: 0.08 - 0.09 Indeterminate0.10 Risk Stratification Limit: Suggest sequential testing0.60 - 1.50 AMI cutoff: Myocardial Injury by WHO criteria BASIC METABOLIC [id number] 14:49:00* Test Item Value Reference Range Interpretation [...] > or = 60 ml/min/1.73M2IF PATIENT IS -[place], MULTIPLY REPORTED RESULT BY1.21. CREATININE (test code = CREAT) 0.70 mg/dL 0.51-0.95 N CALCIUM (test code = CA) 9.2 mg/dL 8.5-10.1 N [id number] 14:49:00* Test Item Value Reference Range Interpretation Comme nts LIPASE (test code = LIP) 44 U/L 73-393 L [id number] 14:49:00* Test Item Value Reference Range Interpretation Comme nts TROPONIN-I (test code = TROPI) ng/ml 0.00-0.045 PROTHROMBIN [id number] 14:48:00* Test Item Value Reference Range Interpretation [...] patients with mechanicalprosthetic heart valves. THROMBOPLASTIN TIME [id number] 14:48:00* Test Item Value Reference Range Interpretation Comme nts THROMBOPLASTIN TIME PARTIAL (test code = PTT) 34.5 seconds 22.8-34.4 H CBC W/AUTO [id number] 14:33:00* Test Item Value Reference Range Interpretation [...] K/mm3 0.0-0.1 N - XR CHEST 1 [id number] 14:25:00[facility] Name: DANIELLE MARTINEZ [address] [place] [address] Phys: Yonatan Swain Jr, MD [place] [address] : 1950 Age: 68 Sex: F Acct: [id number] Loc: [facility] PHONE #: [phone] Exam Date: 02/02/2019 Status: PRE ER FAX #: [phone] Radiology No: Unit No: [id number] Reason: chest pain EXAMS: CPT CODE: [id number] XR CHEST 1 V 94190 Fluoro Time: DAP (Gy m2): Air Kerma (mGy): EXAM: - XR CHEST 1 V LOCATION: C3 HISTORY: chest pain COMPARISON: None available time of in terpretation. FINDINGS: Single view of the chest. No indwelling lines or tubes. No pneumothorax. The lungs are clear. No pleural effusions are present. The mediastinal contours are unremarkable. No acute osseous findings are present. IMPRESSION: No acute cardiopulmonary abnormality. at 1425 Reported and signed by: PRETTY SHARPE M.D. CC: Reagan Hirsch Technologist: Remy Barrios RT (R) Transcribed Date/Time: 02/02/2019 (7833) [id number] Orig Print D/T: S: 02/02/2019 (8666) PAGE 1 Signed ReportHEMOGLOBIN [id number] 00:00:00* Test Item Value Reference Range Interpretation Comme nts HEMOGLOBIN A1c (test code = 22150) 6.4 % Toney Cowan AustinLIPID [id number] 00:00:00* Test Item Value Reference Range Interpretation Comme nts CHOLESTEROL (test code = 2210) 195 MG/DL TRIGLYCERIDES (test code = 2232) 241 MG/DL HDL CHOLESTEROL (test code = 2220) 44 MG/DL CALC LDL CHOL (test code = 2237) 103 MG/DL RISK RATIO LDL/HDL (test cod e = 2238) 2.34 RATIO Toney RennerCOMPREHENSIVE METABOLIC [id number] 00:00:00* Test Item Value Reference Range Interpretation Comme nts GLUCOSE (test code = 2217) 138 MG/DL BUN (test code = 2208) 21 MG/DL CREATININE (test code = 2214) 0.59 MG/DL eGFR AMER. (test cod e = 64001) 110 ML/MIN/1.73 eGFR NON- AMER. (test code = 15828) 95 ML/MIN/1.73 CALC BUN/CREAT (test code = [...] code = 2219) 14 U/L Toney RennerHEMOGLOBIN [id number] 00:00:00* Test Item Value Reference Range Interpretation Comme katty HEMOGLOBIN A1c (test code = 93748) 6.4 % Toney RennerLIPID [id number] 00:00:00* Test Item Value Reference Range Interpretation Comme nts CHOLESTEROL (test code = 2210) 195 MG/DL TRIGLYCERIDES (test code = 2232) 241 MG/DL HDL CHOLESTEROL (test code = 2220) 44 MG/DL CALC LDL CHOL (test code = 2237) 103 MG/DL RISK RATIO LDL/HDL (test cod e = 2238) 2.34 RATIO Toney RennerCOMPREHENSIVE METABOLIC [id number] 00:00:00* Test Item Value Reference Range Interpretation Comme nts GLUCOSE (test code = 2217) 138 MG/DL BUN (test code = 2208) 21 MG/DL CREATININE (test code = 2214) 0.59 MG/DL eGFR AMER. (test cod e = 14205) 110 ML/MIN/1.73 eGFR NON- AMER. (test code = 86301) 95 ML/MIN/1.73 CALC BUN/CREAT (test code = [...] code = 2219) 14 U/L Toney RennerHEMOGLOBIN [id number] 00:00:00* Test Item Value Reference Range Interpretation Comme katty HEMOGLOBIN A1c (test code = 41233) 6.4 % Toney RennerLIPID [id number] 00:00:00* Test Item Value Reference Range Interpretation Comme nts CHOLESTEROL (test code = 2210) 195 MG/DL TRIGLYCERIDES (test code = 2232) 241 MG/DL HDL CHOLESTEROL (test code = 2220) 44 MG/DL CALC LDL CHOL (test code = 2237) 103 MG/DL RISK RATIO LDL/HDL (test cod e = 2238) 2.34 RATIO Toney RennerCOMPREHENSIVE METABOLIC [id number] 00:00:00* Test Item Value Reference Range Interpretation Comme nts GLUCOSE (test code = 2217) 138 MG/DL BUN (test code = 2208) 21 MG/DL CREATININE (test code = 2214) 0.59 MG/DL eGFR AMER. (test cod e = 75457) 110 ML/MIN/1.73 eGFR NON- AMER. (test code = 22447) 95 ML/MIN/1.73 CALC BUN/CREAT (test code = [...] (test code = 2219) 14 U/L Toney RennerLIPID [id number] 00:00:00* Test Item Value Reference Range Interpretation Comme nts CHOLESTEROL (test code = 2210) 195 MG/DL TRIGLYCERIDES (test code = 2232) 241 MG/DL HDL CHOLESTEROL (test code = 2220) 44 MG/DL CALC LDL CHOL (test code = 2237) 103 MG/DL RISK RATIO LDL/HDL (test cod e = 2238) 2.34 RATIO Toney RennerCOMPREHENSIVE METABOLIC [id number] 00:00:00* Test Item Value Reference Range Interpretation Comme nts GLUCOSE (test code = 2217) 138 MG/DL BUN (test code = 220) 21 MG/DL CREATININE (test code = 2214) 0.59 MG/DL eGFR AMER. (test cod e = 71408) 110 ML/MIN/1.73 eGFR NON- AMER. (test code = 85318) 95 ML/MIN/1.73 CALC BUN/CREAT (test code = [...] code = 2219) 14 U/L Toney RennerHEMOGLOBIN [id number] 00:00:00* Test Item Value Reference Range Interpretation Comme nts HEMOGLOBIN A1c (test code = 38554) 6.4 % Toney Cowan AustinLIPID [id number] 00:00:00* Test Item Value Reference Range Interpretation Comme nts CHOLESTEROL (test code = 2210) 195 MG/DL TRIGLYCERIDES (test code = 2232) 241 MG/DL HDL CHOLESTEROL (test code = 2220) 44 MG/DL CALC LDL CHOL (test code = 2237) 103 MG/DL RISK RATIO LDL/HDL (test cod e = 2238) 2.34 RATIO Toney RennerCOMPREHENSIVE METABOLIC [id number] 00:00:00* Test Item Value Reference Range Interpretation Comme nts GLUCOSE (test code = 221) 138 MG/DL BUN (test code = 2208) 21 MG/DL CREATININE (test code = 2214) 0.59 MG/DL eGFR AMER. (test cod e = 61157) 110 ML/MIN/1.73 eGFR NON- AMER. (test code = 41111) 95 ML/MIN/1.73 CALC BUN/CREAT (test code = 2235) 36 RATIO SODIUM (test code = 2231) 145 MEQ/L POTASSIUM (test code = 2228) 4.0 MEQ/L CHLORIDE (test code = 2215) 105 MEQ/L CARBON DIOXIDE (test code = 2206) 26 MEQ/L CALCIUM (test code = 2209) 9.7 MG/DL PROTEIN, TOTAL (test code = 222) 7.2 G/DL ALBUMIN (test code = 220) 4.2 G/DL CALC GLOBULIN (test code = 2240) 3.0 G/DL CALC A/G RATIO (test code = 2234) 1.4 RATIO BILIRUBIN, TOTAL (test code = 220) <0.2 MG/DL ALKALINE PHOSPHATASE (test code = 2203) 88 U/L AST (test code = 221) 16 U/L ALT (test code = 2219) 14 U/L Toney RennerHEMOGLOBIN [id number] 00:00:00* Test Item Value Reference Range Interpretation Comme nts HEMOGLOBIN A1c (test code = 50927) 6.4 % Toney RennerLIPID [id number] 00:00:00* Test Item Value Reference Range Interpretation Comme nts CHOLESTEROL (test code = 2210) 195 MG/DL TRIGLYCERIDES (test code = 2232) 241 MG/DL HDL CHOLESTEROL (test code = 2220) 44 MG/DL CALC LDL CHOL (test code = 2237) 103 MG/DL RISK RATIO LDL/HDL (test cod e = 2238) 2.34 RATIO Toney RennerCOMPREHENSIVE METABOLIC [id number] 00:00:00* Test Item Value Reference Range Interpretation Comme nts GLUCOSE (test code = 2217) 138 MG/DL BUN (test code = 2207) 21 MG/DL CREATININE (test code = 2214) 0.59 MG/DL eGFR AMER. (test cod e = 72104) 110 ML/MIN/1.73 eGFR NON- AMER. (test code = 69850) 95 ML/MIN/1.73 CALC BUN/CREAT (test code = [...] code = 2219) 14 U/L Toney RennerHEMOGLOBIN [id number] 00:00:00* Test Item Value Reference Range Interpretation Comme [facility] HEMOGLOBIN A1c (test code = 29327) 6.4 % Toney RennerLIPID [id number] 00:00:00* Test Item Value Reference Range Interpretation Comme nts CHOLESTEROL (test code = 2210) 195 MG/DL TRIGLYCERIDES (test code = 2232) 241 MG/DL HDL CHOLESTEROL (test code = 2220) 44 MG/DL CALC LDL CHOL (test code = 2237) 103 MG/DL RISK RATIO LDL/HDL (test cod e = 2238) 2.34 RATIO Toney RennerCOMPREHENSIVE METABOLIC [id number] 00:00:00* Test Item Value Reference Range Interpretation Comme nts GLUCOSE (test code = 2217) 138 MG/DL BUN (test code = 2208) 21 MG/DL CREATININE (test code = 2214) 0.59 MG/DL eGFR AMER. (test cod e = 38449) 110 ML/MIN/1.73 eGFR NON- AMER. (test code = 16774) 95 ML/MIN/1.73 CALC BUN/CREAT (test code = [...] code = 2219) 14 U/L Toney RennerHEMOGLOBIN [id number] 00:00:00* Test Item Value Reference Range Interpretation Comme katty HEMOGLOBIN A1c (test code = 04154) 6.4 % Toney RennerLIPID [id number] 00:00:00* Test Item Value Reference Range Interpretation Comme nts CHOLESTEROL (test code = 2210) 195 MG/DL TRIGLYCERIDES (test code = 2232) 241 MG/DL HDL CHOLESTEROL (test code = 2220) 44 MG/DL CALC LDL CHOL (test code = 2237) 103 MG/DL RISK RATIO LDL/HDL (test cod e = 2238) 2.34 RATIO Toney RennerCOMPREHENSIVE METABOLIC [id number] 00:00:00* Test Item Value Reference Range Interpretation Comme nts GLUCOSE (test code = 2217) 138 MG/DL BUN (test code = 2208) 21 MG/DL CREATININE (test code = 2214) 0.59 MG/DL eGFR AMER. (test cod e = 21600) 110 ML/MIN/1.73 eGFR NON- AMER. (test code = 64836) 95 ML/MIN/1.73 CALC BUN/CREAT (test code = [...] = 2219) 14 U/L Toney Cowan AustinHEMOGLOBIN [id number] 00:00:00* Test Item Value Reference Range Interpretation Comme nts HEMOGLOBIN A1c (test code = 82203) 6.4 % Toney Cowan [place]HEMOGLOBIN [id number] 00:00:00* Test Item Value Reference Range Interpretation Comme nts HEMOGLOBIN A1c (test code = 31848) 6.4 % Toney Cowan AustinLIPID [id number] 00:00:00* Test Item Value Reference Range Interpretation Comme nts CHOLESTEROL (test code = 2210) 195 MG/DL TRIGLYCERIDES (test code = 2232) 241 MG/DL HDL CHOLESTEROL (test code = 2220) 44 MG/DL CALC LDL CHOL (test code = 2237) 103 MG/DL RISK RATIO LDL/HDL (test cod e = 2238) 2.34 RATIO Toney RennerCOMPREHENSIVE METABOLIC [id number] 00:00:00* Test Item Value Reference Range Interpretation Comme nts GLUCOSE (test code = 2217) 138 MG/DL BUN (test code = 2208) 21 MG/DL CREATININE (test code = 2214) 0.59 MG/DL eGFR AMER. (test cod e = 83639) 110 ML/MIN/1.73 eGFR NON- AMER. (test code = 63880) 95 ML/MIN/1.73 CALC BUN/CREAT (test code = [...] = 2219) 14 U/L Toney Cowan [place]MO[place] [id number] 00:00:00* Test Item Value Reference Range Interpretation Comme nts HEMOGLOBIN A1c (test code = 23133) 6.4 % LIPID [id number] 00:00:00* Test Item Value Reference Range Interpretation Comme nts CHOLESTEROL (test code = 2210) 195 MG/DL TRIGLYCERIDES (test code = 2232) 241 MG/DL HDL CHOLESTEROL (test code = 2220) 44 MG/DL CALC LDL CHOL (test code = 2237) 103 MG/DL RISK RATIO LDL/HDL (test cod e = 2238) 2.34 RATIO COMPREHENSIVE METABOLIC [id number] 00:00:00* Test Item Value Reference Range Interpretation Comme nts GLUCOSE (test code = 2217) 138 MG/DL BUN (test code = 2208) 21 MG/DL CREATININE (test code = 2214) 0.59 MG/DL eGFR AMER. (test cod e = 94083) 110 ML/MIN/1.73 eGFR NON- AMER. (test code = 57808) 95 ML/MIN/1.73 CALC BUN/CREAT (test code = [...] (test code = 2219) 14 U/L HEMOGLOBIN [id number] 00:00:00* Test Item Value Reference Range Interpretation Comme nts HEMOGLOBIN A1c (test code = 36402) 6.4 % LIPID [id number] 00:00:00* Test Item Value Reference Range Interpretation Comme nts CHOLESTEROL (test code = 2210) 195 MG/DL TRIGLYCERIDES (test code = 2232) 241 MG/DL HDL CHOLESTEROL (test code = 2220) 44 MG/DL CALC LDL CHOL (test code = 2237) 103 MG/DL RISK RATIO LDL/HDL (test cod e = 2238) 2.34 RATIO COMPREHENSIVE METABOLIC [id number] 00:00:00* Test Item Value Reference Range Interpretation Comme nts GLUCOSE (test code = 2217) 138 MG/DL BUN (test code = 2208) 21 MG/DL CREATININE (test code = 2214) 0.59 MG/DL eGFR AMER. (test cod e = 10872) 110 ML/MIN/1.73 eGFR NON- AMER. (test code = 25794) 95 ML/MIN/1.73 CALC BUN/CREAT (test code = [...] (test code = 2219) 14 U/L HEMOGLOBIN [id number] 00:00:00* Test Item Value Reference Range Interpretation Comme nts HEMOGLOBIN A1c (test code = 62615) 6.4 % LIPID [id number] 00:00:00* Test Item Value Reference Range Interpretation Comme nts CHOLESTEROL (test code = 2210) 195 MG/DL TRIGLYCERIDES (test code = 2232) 241 MG/DL HDL CHOLESTEROL (test code = 2220) 44 MG/DL CALC LDL CHOL (test code = 2237) 103 MG/DL RISK RATIO LDL/HDL (test cod e = 2238) 2.34 RATIO COMPREHENSIVE METABOLIC [id number] 00:00:00* Test Item Value Reference Range Interpretation Comme nts GLUCOSE (test code = 2217) 138 MG/DL BUN (test code = 2208) 21 MG/DL CREATININE (test code = 2214) 0.59 MG/DL eGFR AMER. (test cod e = 44167) 110 ML/MIN/1.73 eGFR NON- AMER. (test code = 74025) 95 ML/MIN/1.73 CALC BUN/CREAT (test code = [...] (test code = 2219) 14 U/L HEMOGLOBIN [id number] 00:00:00* Test Item Value Reference Range Interpretation Comme nts HEMOGLOBIN A1c (test code = 11620) 6.4 % LIPID [id number] 00:00:00* Test Item Value Reference Range Interpretation Comme nts CHOLESTEROL (test code = 2210) 195 MG/DL TRIGLYCERIDES (test code = 2232) 241 MG/DL HDL CHOLESTEROL (test code = 2220) 44 MG/DL CALC LDL CHOL (test code = 2237) 103 MG/DL RISK RATIO LDL/HDL (test cod e = 2238) 2.34 RATIO HEMOGLOBIN [id number] 00:00:00* Test Item Value Reference Range Interpretation Comme nts HEMOGLOBIN A1c (test code = 05637) 6.4 % COMPREHENSIVE METABOLIC [id number] 00:00:00* Test Item Value Reference Range Interpretation Comme nts GLUCOSE (test code = 2217) 138 MG/DL BUN (test code = 2208) 21 MG/DL CREATININE (test code = 2214) 0.59 MG/DL eGFR AMER. (test cod e = 83090) 110 ML/MIN/1.73 eGFR NON- AMER. (test code = 46091) 95 ML/MIN/1.73 CALC BUN/CREAT (test code = [...] (test code = 2219) 14 U/L LIPID [id number] 00:00:00* Test Item Value Reference Range Interpretation Comme nts CHOLESTEROL (test code = 2210) 195 MG/DL TRIGLYCERIDES (test code = 2232) 241 MG/DL HDL CHOLESTEROL (test code = 2220) 44 MG/DL CALC LDL CHOL (test code = 2237) 103 MG/DL RISK RATIO LDL/HDL (test cod e = 2238) 2.34 RATIO COMPREHENSIVE METABOLIC [id number] 00:00:00* Test Item Value Reference Range Interpretation Comme nts GLUCOSE (test code = 2217) 138 MG/DL BUN (test code = 2208) 21 MG/DL CREATININE (test code = 2214) 0.59 MG/DL eGFR AMER. (test cod e = 82878) 110 ML/MIN/1.73 eGFR NON- AMER. (test code = 51504) 95 ML/MIN/1.73 CALC BUN/CREAT (test code = [...] (test code = 2219) 14 U/L HEMOGLOBIN [id number] 00:00:00* Test Item Value Reference Range Interpretation Comme nts HEMOGLOBIN A1c (test code = 53880) 6.4 % LIPID [id number] 00:00:00* Test Item Value Reference Range Interpretation Comme nts CHOLESTEROL (test code = 2210) 195 MG/DL TRIGLYCERIDES (test code = 2232) 241 MG/DL HDL CHOLESTEROL (test code = 2220) 44 MG/DL CALC LDL CHOL (test code = 2237) 103 MG/DL RISK RATIO LDL/HDL (test cod e = 2238) 2.34 RATIO COMPREHENSIVE METABOLIC [id number] 00:00:00* Test Item Value Reference Range Interpretation Comme nts GLUCOSE (test code = 2217) 138 MG/DL BUN (test code = 2208) 21 MG/DL CREATININE (test code = 2214) 0.59 MG/DL eGFR AMER. (test cod e = 61739) 110 ML/MIN/1.73 eGFR NON- AMER. (test code = 64351) 95 ML/MIN/1.73 CALC BUN/CREAT (test code = 2235) 36 RATIO SODIUM (test code = 2231) 145 MEQ/L POTASSIUM (test code = 2228) 4.0 MEQ/L CHLORIDE (test code = 2215) 105 MEQ/L CARBON DIOXIDE (test code = 2206) 26 MEQ/L CALCIUM (test code = 2208) 9.7 [...] (test code = 221) 14 U/L HEMOGLOBIN [id number] 00:00:00* Test Item Value Reference Range Interpretation Comme nts HEMOGLOBIN A1c (test code = 90831) 6.4 % LIPID [id number] 00:00:00* Test Item Value Reference Range Interpretation Comme nts CHOLESTEROL (test code = 0) 195 MG/DL TRIGLYCERIDES (test code = 2232) 241 MG/DL HDL CHOLESTEROL (test code = 2219) 44 MG/DL CALC LDL CHOL (test code = 2236) 103 MG/DL RISK RATIO LDL/HDL (test cod e = 2238) 2.34 RATIO COMPREHENSIVE METABOLIC [id number] 00:00:00* Test Item Value Reference Range Interpretation Comme nts GLUCOSE (test code = 2216) 138 MG/DL BUN (test code = 2207) 21 MG/DL CREATININE (test code = 2214) 0.59 MG/DL eGFR AMER. (test cod e = 32768) 110 ML/MIN/1.73 eGFR NON- AMER. (test code = 61579) 95 ML/MIN/1.73 CALC BUN/CREAT (test code = 2235) 36 RATIO SODIUM (test code = 2231) 145 MEQ/L POTASSIUM (test code = 2228) 4.0 MEQ/L CHLORIDE (test code = 2215) 105 MEQ/L CARBON DIOXIDE (test code = 6) 26 MEQ/L CALCIUM (test code = 9) 9.7 [...] (test code = 2219) 14 U/L HEMOGLOBIN [id number] 00:00:00* Test Item Value Reference Range Interpretation Comme nts HEMOGLOBIN A1c (test code = 23331) 6.4 % LIPID [id number] 00:00:00* Test Item Value Reference Range Interpretation Comme nts CHOLESTEROL (test code = 2210) 195 MG/DL TRIGLYCERIDES (test code = 2232) 241 MG/DL HDL CHOLESTEROL (test code = 2220) 44 MG/DL CALC LDL CHOL (test code = 223) 103 MG/DL RISK RATIO LDL/HDL (test cod e = 2238) 2.34 RATIO COMPREHENSIVE METABOLIC [id number] 00:00:00* Test Item Value Reference Range Interpretation Comme nts GLUCOSE (test code = 2217) 138 MG/DL BUN (test code = 2208) 21 MG/DL CREATININE (test code = 2214) 0.59 MG/DL eGFR AMER. (test cod e = 57354) 110 ML/MIN/1.73 eGFR NON- AMER. (test code = 98153) 95 ML/MIN/1.73 CALC BUN/CREAT (test code = [...] (test code = 2219) 14 U/L HEMOGLOBIN [id number] 00:00:00* Test Item Value Reference Range Interpretation Comme nts HEMOGLOBIN A1c (test code = 82351) 6.4 % LIPID [id number] 00:00:00* Test Item Value Reference Range Interpretation Comme nts CHOLESTEROL (test code = 2210) 195 MG/DL TRIGLYCERIDES (test code = 2232) 241 MG/DL HDL CHOLESTEROL (test code = 2220) 44 MG/DL CALC LDL CHOL (test code = 2237) 103 MG/DL RISK RATIO LDL/HDL (test cod e = 2238) 2.34 RATIO COMPREHENSIVE METABOLIC [id number] 00:00:00* Test Item Value Reference Range Interpretation Comme nts GLUCOSE (test code = 2217) 138 MG/DL BUN (test code = 2208) 21 MG/DL CREATININE (test code = 2214) 0.59 MG/DL eGFR AMER. (test cod e = 85938) 110 ML/MIN/1.73 eGFR NON- AMER. (test code = 84238) 95 ML/MIN/1.73 CALC BUN/CREAT (test code = [...] (test code = 2219) 14 U/L HEMOGLOBIN [id number] 00:00:00* Test Item Value Reference Range Interpretation Comme nts HEMOGLOBIN A1c (test code = 87527) 8.3 % Toney F AustinCOMPREHENSIVE METABOLIC [id number] 00:00:00* Test Item Value Reference Range Interpretation Comme nts GLUCOSE (test code = 2217) 131 MG/DL BUN (test code = 2208) 16 MG/DL CREATININE (test code = 2214) 0.51 MG/DL eGFR AMER. (test cod e = 13370) 116 ML/MIN/1.73 eGFR NON- AMER. (test code = 41000) 100 ML/MIN/1.73 CALC BUN/CREAT (test code = [...] code = 2219) 27 U/L Toney Cowan AustinHEMOGLOBIN [id number] 00:00:00* Test Item Value Reference Range Interpretation Comme nts HEMOGLOBIN A1c (test code = 09360) 8.3 % Toney Cowan AustinLIPID [id number] 00:00:00* Test Item Value Reference Range Interpretation Comme nts CHOLESTEROL (test code = 2210) 204 MG/DL TRIGLYCERIDES (test code = 2232) 121 MG/DL HDL CHOLESTEROL (test code = 2220) 50 MG/DL CALC LDL CHOL (test code = 2237) 130 MG/DL RISK RATIO LDL/HDL (test cod e = 2238) 2.60 RATIO Toney Cowan AustinHEMOGLOBIN [id number] 00:00:00* Test Item Value Reference Range Interpretation Comme nts HEMOGLOBIN A1c (test code = 47265) 8.3 % Toney RennerCOMPREHENSIVE METABOLIC [id number] 00:00:00* Test Item Value Reference Range Interpretation Comme nts GLUCOSE (test code = 2217) 131 MG/DL BUN (test code = 2208) 16 MG/DL CREATININE (test code = 2214) 0.51 MG/DL eGFR AMER. (test cod e = 10213) 116 ML/MIN/1.73 eGFR NON- AMER. (test code = 67414) 100 ML/MIN/1.73 CALC BUN/CREAT (test code = [...] code = 2219) 27 U/L Toney Cowan SpringerLIPID [id number] 00:00:00* Test Item Value Reference Range Interpretation Comme nts CHOLESTEROL (test code = 2210) 204 MG/DL TRIGLYCERIDES (test code = 2232) 121 MG/DL HDL CHOLESTEROL (test code = 2220) 50 MG/DL CALC LDL CHOL (test code = 2237) 130 MG/DL RISK RATIO LDL/HDL (test cod e = 2238) 2.60 RATIO Toney Cowan ZurdoCOMPREHENSIVE METABOLIC [id number] 00:00:00* Test Item Value Reference Range Interpretation Comme nts GLUCOSE (test code = 2217) 131 MG/DL BUN (test code = 2208) 16 MG/DL CREATININE (test code = 2214) 0.51 MG/DL eGFR AMER. (test cod e = 61905) 116 ML/MIN/1.73 eGFR NON- AMER. (test code = 55861) 100 ML/MIN/1.73 CALC BUN/CREAT (test code = [...] code = 2219) 27 U/L Toney RennerHEMOGLOBIN [id number] 00:00:00* Test Item Value Reference Range Interpretation Comme nts HEMOGLOBIN A1c (test code = 50081) 8.3 % Toney RennerCOMPREHENSIVE METABOLIC [id number] 00:00:00* Test Item Value Reference Range Interpretation Comme nts GLUCOSE (test code = 2217) 131 MG/DL BUN (test code = 2208) 16 MG/DL CREATININE (test code = 2214) 0.51 MG/DL eGFR AMER. (test cod e = 97392) 116 ML/MIN/1.73 eGFR NON- AMER. (test code = 84776) 100 ML/MIN/1.73 CALC BUN/CREAT (test code = [...] code = 2219) 27 U/L Toney RennerLIPID [id number] 00:00:00* Test Item Value Reference Range Interpretation Comme nts CHOLESTEROL (test code = 2210) 204 MG/DL TRIGLYCERIDES (test code = 2232) 121 MG/DL HDL CHOLESTEROL (test code = 2220) 50 MG/DL CALC LDL CHOL (test code = 2237) 130 MG/DL RISK RATIO LDL/HDL (test cod e = 2238) 2.60 RATIO Toney RennerLIPID [id number] 00:00:00* Test Item Value Reference Range Interpretation Comme nts CHOLESTEROL (test code = 2210) 204 MG/DL TRIGLYCERIDES (test code = 2232) 121 MG/DL HDL CHOLESTEROL (test code = 2220) 50 MG/DL CALC LDL CHOL (test code = 2237) 130 MG/DL RISK RATIO LDL/HDL (test cod e = 2238) 2.60 RATIO Toney RennerHEMOGLOBIN [id number] 00:00:00* Test Item Value Reference Range Interpretation Comme nts HEMOGLOBIN A1c (test code = 73134) 8.3 % Toney RennerCOMPREHENSIVE METABOLIC [id number] 00:00:00* Test Item Value Reference Range Interpretation Comme nts GLUCOSE (test code = 2217) 131 MG/DL BUN (test code = 2208) 16 MG/DL CREATININE (test code = 2214) 0.51 MG/DL eGFR AMER. (test cod e = 86623) 116 ML/MIN/1.73 eGFR NON- AMER. (test code = 46516) 100 ML/MIN/1.73 CALC BUN/CREAT (test code = [...] code = 2219) 27 U/L Toney RennerLIPID [id number] 00:00:00* Test Item Value Reference Range Interpretation Comme nts CHOLESTEROL (test code = 2210) 204 MG/DL TRIGLYCERIDES (test code = 2232) 121 MG/DL HDL CHOLESTEROL (test code = 2220) 50 MG/DL CALC LDL CHOL (test code = 2237) 130 MG/DL RISK RATIO LDL/HDL (test cod e = 2238) 2.60 RATIO Toney RennerHEMOGLOBIN [id number] 00:00:00* Test Item Value Reference Range Interpretation Comme nts HEMOGLOBIN A1c (test code = 22175) 8.3 % Toney RennerCOMPREHENSIVE METABOLIC [id number] 00:00:00* Test Item Value Reference Range Interpretation Comme nts GLUCOSE (test code = 2217) 131 MG/DL BUN (test code = 2208) 16 MG/DL CREATININE (test code = 2214) 0.51 MG/DL eGFR AMER. (test cod e = 18346) 116 ML/MIN/1.73 eGFR NON- AMER. (test code = 28553) 100 ML/MIN/1.73 CALC BUN/CREAT (test code = [...] code = 2219) 27 U/L Toney RennerLIPID [id number] 00:00:00* Test Item Value Reference Range Interpretation Comme nts CHOLESTEROL (test code = 2210) 204 MG/DL TRIGLYCERIDES (test code = 2232) 121 MG/DL HDL CHOLESTEROL (test code = 2220) 50 MG/DL CALC LDL CHOL (test code = 2237) 130 MG/DL RISK RATIO LDL/HDL (test cod e = 2238) 2.60 RATIO Toney RennerHEMOGLOBIN [id number] 00:00:00* Test Item Value Reference Range Interpretation Comme nts HEMOGLOBIN A1c (test code = 16580) 8.3 % Toney RennreCOMPREHENSIVE METABOLIC [id number] 00:00:00* Test Item Value Reference Range Interpretation Comme nts GLUCOSE (test code = 2217) 131 MG/DL BUN (test code = 2208) 16 MG/DL CREATININE (test code = 2214) 0.51 MG/DL eGFR AMER. (test cod e = 47595) 116 ML/MIN/1.73 eGFR NON- AMER. (test code = 43508) 100 ML/MIN/1.73 CALC BUN/CREAT (test code = [...] code = 2219) 27 U/L Toney RennerLIPID [id number] 00:00:00* Test Item Value Reference Range Interpretation Comme nts CHOLESTEROL (test code = 2210) 204 MG/DL TRIGLYCERIDES (test code = 2232) 121 MG/DL HDL CHOLESTEROL (test code = 2220) 50 MG/DL CALC LDL CHOL (test code = 2237) 130 MG/DL RISK RATIO LDL/HDL (test cod e = 2238) 2.60 RATIO Toney Cowan AustinHEMOGLOBIN [id number] 00:00:00* Test Item Value Reference Range Interpretation Comme nts HEMOGLOBIN A1c (test code = 44523) 8.3 % Toney Cowan AustinCOMPREHENSIVE METABOLIC [id number] 00:00:00* Test Item Value Reference Range Interpretation Comme nts GLUCOSE (test code = 2217) 131 MG/DL BUN (test code = 2208) 16 MG/DL CREATININE (test code = 2214) 0.51 MG/DL eGFR AMER. (test cod e = 55093) 116 ML/MIN/1.73 eGFR NON- AMER. (test code = 40276) 100 ML/MIN/1.73 CALC BUN/CREAT (test code = [...] = 2219) 27 U/L Toney Cowan AustinLIPID [id number] 00:00:00* Test Item Value Reference Range Interpretation Comme nts CHOLESTEROL (test code = 2210) 204 MG/DL TRIGLYCERIDES (test code = 2232) 121 MG/DL HDL CHOLESTEROL (test code = 2220) 50 MG/DL CALC LDL CHOL (test code = 2237) 130 MG/DL RISK RATIO LDL/HDL (test cod e = 2238) 2.60 RATIO Toney RennerHEMOGLOBIN [id number] 00:00:00* Test Item Value Reference Range Interpretation Comme nts HEMOGLOBIN A1c (test code = 77655) 8.3 % Toney Cowan AustinCOMPREHENSIVE METABOLIC [id number] 00:00:00* Test Item Value Reference Range Interpretation Comme nts GLUCOSE (test code = 2217) 131 MG/DL BUN (test code = 2208) 16 MG/DL CREATININE (test code = 2214) 0.51 MG/DL eGFR AMER. (test cod e = 35220) 116 ML/MIN/1.73 eGFR NON- AMER. (test code = 81504) 100 ML/MIN/1.73 CALC BUN/CREAT (test code = [...] code = 2219) 27 U/L Toney RennerLIPID [id number] 00:00:00* Test Item Value Reference Range Interpretation Comme nts CHOLESTEROL (test code = 2210) 204 MG/DL TRIGLYCERIDES (test code = 2232) 121 MG/DL HDL CHOLESTEROL (test code = 2220) 50 MG/DL CALC LDL CHOL (test code = 2237) 130 MG/DL RISK RATIO LDL/HDL (test cod e = 2238) 2.60 RATIO Toney RennerHEMOGLOBIN [id number] 00:00:00* Test Item Value Reference Range Interpretation Comme nts HEMOGLOBIN A1c (test code = 78407) 8.3 % COMPREHENSIVE METABOLIC [id number] 00:00:00* Test Item Value Reference Range Interpretation Comme nts GLUCOSE (test code = 2217) 131 MG/DL BUN (test code = 2208) 16 MG/DL CREATININE (test code = 2214) 0.51 MG/DL eGFR AMER. (test cod e = 69985) 116 ML/MIN/1.73 eGFR NON- AMER. (test code = 37176) 100 ML/MIN/1.73 CALC BUN/CREAT (test code = [...] (test code = 2219) 27 U/L LIPID [id number] 00:00:00* Test Item Value Reference Range Interpretation Comme nts CHOLESTEROL (test code = 2210) 204 MG/DL TRIGLYCERIDES (test code = 2232) 121 MG/DL HDL CHOLESTEROL (test code = 2220) 50 MG/DL CALC LDL CHOL (test code = 2237) 130 MG/DL RISK RATIO LDL/HDL (test cod e = 2238) 2.60 RATIO HEMOGLOBIN [id number] 00:00:00* Test Item Value Reference Range Interpretation Comme nts HEMOGLOBIN A1c (test code = 58087) 8.3 % COMPREHENSIVE METABOLIC [id number] 00:00:00* Test Item Value Reference Range Interpretation Comme nts GLUCOSE (test code = 2217) 131 MG/DL BUN (test code = 2208) 16 MG/DL CREATININE (test code = 2214) 0.51 MG/DL eGFR AMER. (test cod e = 95733) 116 ML/MIN/1.73 eGFR NON- AMER. (test code = 58072) 100 ML/MIN/1.73 CALC BUN/CREAT (test code = [...] (test code = 2219) 27 U/L LIPID [id number] 00:00:00* Test Item Value Reference Range Interpretation Comme nts CHOLESTEROL (test code = 2210) 204 MG/DL TRIGLYCERIDES (test code = 2232) 121 MG/DL HDL CHOLESTEROL (test code = 2220) 50 MG/DL CALC LDL CHOL (test code = 2237) 130 MG/DL RISK RATIO LDL/HDL (test cod e = 2238) 2.60 RATIO HEMOGLOBIN [id number] 00:00:00* Test Item Value Reference Range Interpretation Comme nts HEMOGLOBIN A1c (test code = 49890) 8.3 % COMPREHENSIVE METABOLIC [id number] 00:00:00* Test Item Value Reference Range Interpretation Comme nts GLUCOSE (test code = 2217) 131 MG/DL BUN (test code = 8) 16 MG/DL CREATININE (test code = 2214) 0.51 MG/DL eGFR AMER. (test cod e = 16051) 116 ML/MIN/1.73 eGFR NON- AMER. (test code = 06506) 100 ML/MIN/1.73 CALC BUN/CREAT (test code = [...] (test code = 2219) 27 U/L LIPID [id number] 00:00:00* Test Item Value Reference Range Interpretation Comme nts CHOLESTEROL (test code = 2210) 204 MG/DL TRIGLYCERIDES (test code = 2232) 121 MG/DL HDL CHOLESTEROL (test code = 2220) 50 MG/DL CALC LDL CHOL (test code = 2237) 130 MG/DL RISK RATIO LDL/HDL (test cod e = 2238) 2.60 RATIO HEMOGLOBIN [id number] 00:00:00* Test Item Value Reference Range Interpretation Comme nts HEMOGLOBIN A1c (test code = 70732) 8.3 % HEMOGLOBIN [id number] 00:00:00* Test Item Value Reference Range Interpretation Comme nts HEMOGLOBIN A1c (test code = 88881) 8.3 % COMPREHENSIVE METABOLIC [id number] 00:00:00* Test Item Value Reference Range Interpretation Comme nts GLUCOSE (test code = 2217) 131 MG/DL BUN (test code = 2208) 16 MG/DL CREATININE (test code = 2214) 0.51 MG/DL eGFR AMER. (test cod e = 97181) 116 ML/MIN/1.73 eGFR NON- AMER. (test code = 60437) 100 ML/MIN/1.73 CALC BUN/CREAT (test code = [...] (test code = 2219) 27 U/L LIPID [id number] 00:00:00* Test Item Value Reference Range Interpretation Comme nts CHOLESTEROL (test code = 2210) 204 MG/DL TRIGLYCERIDES (test code = 2232) 121 MG/DL HDL CHOLESTEROL (test code = 2220) 50 MG/DL CALC LDL CHOL (test code = 2237) 130 MG/DL RISK RATIO LDL/HDL (test cod e = 2238) 2.60 RATIO COMPREHENSIVE METABOLIC [id number] 00:00:00* Test Item Value Reference Range Interpretation Comme nts GLUCOSE (test code = 2217) 131 MG/DL BUN (test code = 2208) 16 MG/DL CREATININE (test code = 2214) 0.51 MG/DL eGFR AMER. (test cod e = 31486) 116 ML/MIN/1.73 eGFR NON- AMER. (test code = 04158) 100 ML/MIN/1.73 CALC BUN/CREAT (test code = [...] (test code = 2219) 27 U/L HEMOGLOBIN [id number] 00:00:00* Test Item Value Reference Range Interpretation Comme nts HEMOGLOBIN A1c (test code = 20660) 8.3 % LIPID [id number] 00:00:00* Test Item Value Reference Range Interpretation Comme nts CHOLESTEROL (test code = 2210) 204 MG/DL TRIGLYCERIDES (test code = 2232) 121 MG/DL HDL CHOLESTEROL (test code = 2220) 50 MG/DL CALC LDL CHOL (test code = 2237) 130 MG/DL RISK RATIO LDL/HDL (test cod e = 2238) 2.60 RATIO COMPREHENSIVE METABOLIC [id number] 00:00:00* Test Item Value Reference Range Interpretation Comme nts GLUCOSE (test code = 2217) 131 MG/DL BUN (test code = 2208) 16 MG/DL CREATININE (test code = 2214) 0.51 MG/DL eGFR AMER. (test cod e = 03684) 116 ML/MIN/1.73 eGFR NON- AMER. (test code = 91242) 100 ML/MIN/1.73 CALC BUN/CREAT (test code = [...] (test code = 2219) 27 U/L LIPID [id number] 00:00:00* Test Item Value Reference Range Interpretation Comme nts CHOLESTEROL (test code = 2210) 204 MG/DL TRIGLYCERIDES (test code = 2232) 121 MG/DL HDL CHOLESTEROL (test code = 2220) 50 MG/DL CALC LDL CHOL (test code = 2237) 130 MG/DL RISK RATIO LDL/HDL (test cod e = 2238) 2.60 RATIO HEMOGLOBIN [id number] 00:00:00* Test Item Value Reference Range Interpretation Comme nts HEMOGLOBIN A1c (test code = 97392) 8.3 % COMPREHENSIVE METABOLIC [id number] 00:00:00* Test Item Value Reference Range Interpretation Comme nts GLUCOSE (test code = 2217) 131 MG/DL BUN (test code = 2208) 16 MG/DL CREATININE (test code = 2214) 0.51 MG/DL eGFR AMER. (test cod e = 16649) 116 ML/MIN/1.73 eGFR NON- AMER. (test code = 92291) 100 ML/MIN/1.73 CALC BUN/CREAT (test code = [...] (test code = 2219) 27 U/L LIPID [id number] 00:00:00* Test Item Value Reference Range Interpretation Comme nts CHOLESTEROL (test code = 2210) 204 MG/DL TRIGLYCERIDES (test code = 2232) 121 MG/DL HDL CHOLESTEROL (test code = 2220) 50 MG/DL CALC LDL CHOL (test code = 2237) 130 MG/DL RISK RATIO LDL/HDL (test cod e = 2238) 2.60 RATIO HEMOGLOBIN [id number] 00:00:00* Test Item Value Reference Range Interpretation Comme nts HEMOGLOBIN A1c (test code = 66033) 8.3 % COMPREHENSIVE METABOLIC [id number] 00:00:00* Test Item Value Reference Range Interpretation Comme nts GLUCOSE (test code = 2217) 131 MG/DL BUN (test code = 2208) 16 MG/DL CREATININE (test code = 2214) 0.51 MG/DL eGFR AMER. (test cod e = 44430) 116 ML/MIN/1.73 eGFR NON- AMER. (test code = 47570) 100 ML/MIN/1.73 CALC BUN/CREAT (test code = [...] (test code = 2219) 27 U/L LIPID [id number] 00:00:00* Test Item Value Reference Range Interpretation Comme nts CHOLESTEROL (test code = 2210) 204 MG/DL TRIGLYCERIDES (test code = 2232) 121 MG/DL HDL CHOLESTEROL (test code = 2220) 50 MG/DL CALC LDL CHOL (test code = 2237) 130 MG/DL RISK RATIO LDL/HDL (test cod e = 2238) 2.60 RATIO HEMOGLOBIN [id number] 00:00:00* Test Item Value Reference Range Interpretation Comme nts HEMOGLOBIN A1c (test code = 01015) 8.3 % COMPREHENSIVE METABOLIC [id number] 00:00:00* Test Item Value Reference Range Interpretation Comme nts GLUCOSE (test code = 2217) 131 MG/DL BUN (test code = 2208) 16 MG/DL CREATININE (test code = 2214) 0.51 MG/DL eGFR AMER. (test cod e = 39629) 116 ML/MIN/1.73 eGFR NON- AMER. (test code = 45492) 100 ML/MIN/1.73 CALC BUN/CREAT (test code = [...] (test code = 2219) 27 U/L LIPID [id number] 00:00:00* Test Item Value Reference Range Interpretation Comme nts CHOLESTEROL (test code = 2210) 204 MG/DL TRIGLYCERIDES (test code = 2232) 121 MG/DL HDL CHOLESTEROL (test code = 2220) 50 MG/DL CALC LDL CHOL (test code = 2237) 130 MG/DL RISK RATIO LDL/HDL (test cod e = 2238) 2.60 RATIO CULTURE, [id number] 00:00:00* Test Item Value Reference Range Interpretation Comme nts CULTURE, STOOL (test code = 14908) SPECIMEN NUMBER: [id number] DARI [id number] 00:00:00* Test Item Value Reference Range Interpretation Comme nts CULTURE, STOOL (test code = 42508) SPECIMEN NUMBER: [id number] Toney Salinas, [id number] 00:00:00* Test Item Value Reference Range Interpretation Comme nts CULTURE, STOOL (test code = 21873) SPECIMEN NUMBER: [id number] Toney Salinas, [id number] 00:00:00* Test Item Value Reference Range Interpretation Comme nts CULTURE, STOOL (test code = 83541) SPECIMEN NUMBER: [id number] Toney Salinas, [id number] 00:00:00* Test Item Value Reference Range Interpretation Comme nts CULTURE, STOOL (test code = 64289) SPECIMEN NUMBER: [id number] Toney Salinas [id number] 00:00:00* Test Item Value Reference Range Interpretation Comme nts CULTURE, STOOL (test code = 25583) SPECIMEN NUMBER: [id number] Toney Salinas [id number] 00:00:00* Test Item Value Reference Range Interpretation Comme nts CULTURE, STOOL (test code = 51054) SPECIMEN NUMBER: [id number] DARI Mario2018-03-29 00:00:00* Test Item Value Reference Range Interpretation Comme nts CULTURE, STOOL (test code = 22877) SPECIMEN NUMBER: [id number] DARI Mario2018-03-29 00:00:00* Test Item Value Reference Range Interpretation Comme nts CULTURE, STOOL (test code = 70313) SPECIMEN NUMBER: [id number] DARI Mario2018-03-29 00:00:00* Test Item Value Reference Range Interpretation Comme nts CULTURE, STOOL (test code = 35370) SPECIMEN NUMBER: [id number] JACE [id number] 00:00:00* Test Item Value Reference Range Interpretation Comme nts CULTURE, STOOL (test code = 14756) SPECIMEN NUMBER: [id number] JACE [id number] 00:00:00* Test Item Value Reference Range Interpretation Comme nts CULTURE, STOOL (test code = 07685) SPECIMEN NUMBER: [id number] JACE [id number] 00:00:00* Test Item Value Reference Range Interpretation Comme nts CULTURE, STOOL (test code = 16252) SPECIMEN NUMBER: [id number] JACE [id number] 00:00:00* Test Item Value Reference Range Interpretation Comme nts CULTURE, STOOL (test code = 83317) SPECIMEN NUMBER: [id number] JACE, [id number] 00:00:00* Test Item Value Reference Range Interpretation Comme nts CULTURE, STOOL (test code = 97734) SPECIMEN NUMBER: [id number] CULTURE, [id number] 00:00:00* Test Item Value Reference Range Interpretation Comme nts CULTURE, STOOL (test code = 52622) SPECIMEN NUMBER: [id number] JACE, [id number] 00:00:00* Test Item Value Reference Range Interpretation Comme nts CULTURE, STOOL (test code = 74113) SPECIMEN NUMBER: [id number] JACE, [id number] 00:00:00* Test Item Value Reference Range Interpretation Comme nts CULTURE, STOOL (test code = 68632) SPECIMEN NUMBER: [id number] COMPREHENSIVE METABOLIC [id number] 00:00:00* Test Item Value Reference Range Interpretation Comme nts GLUCOSE (test code = 2217) 298 MG/DL BUN (test code = 2208) 21 MG/DL CREATININE (test code = 2214) 0.56 MG/DL eGFR AMER. (test cod e = 98418) 113 ML/MIN/1.73 eGFR NON- AMER. (test code = 25879) 97 ML/MIN/1.73 CALC BUN/CREAT (test code = [...] code = 2219) 21 U/L Toney F [facility] W/AUTO [id number] 00:00:00* Test Item Value Reference Range Interpretation [...] code = 1015) 204 K/UL Toney Cowan [id number] 00:00:00* Test Item Value Reference Range Interpretation Comme nts AMYLASE (test code = 2205) 57 U/L Toney Cowan [id number] 00:00:00* Test Item Value Reference Range Interpretation Comme nts LIPASE (test code = 2058) 26 U/L Toney Cowan AustinCOMPREHENSIVE METABOLIC [id number] 00:00:00* Test Item Value Reference Range Interpretation Comme nts GLUCOSE (test code = 2217) 298 MG/DL BUN (test code = 2208) 21 MG/DL CREATININE (test code = 2214) 0.56 MG/DL eGFR AMER. (test cod e = 17806) 113 ML/MIN/1.73 eGFR NON- AMER. (test code = 67479) 97 ML/MIN/1.73 CALC BUN/CREAT (test code = [...] code = 2219) 21 U/L Toney Cowan AustinCOMPREHENSIVE METABOLIC [id number] 00:00:00* Test Item Value Reference Range Interpretation Comme nts GLUCOSE (test code = 2217) 298 MG/DL BUN (test code = 2208) 21 MG/DL CREATININE (test code = 2214) 0.56 MG/DL eGFR AMER. (test cod e = 64726) 113 ML/MIN/1.73 eGFR NON- AMER. (test code = 51266) 97 ML/MIN/1.73 CALC BUN/CREAT (test code = [...] = 2219) 21 U/L Toney RennerCBC W/AUTO [id number] 00:00:00* Test Item Value Reference Range Interpretation [...] code = 1015) 204 K/UL Toney Cowan [id number] 00:00:00* Test Item Value Reference Range Interpretation Comme nts AMYLASE (test code = 2204) 57 U/L Toney F [id number] 00:00:00* Test Item Value Reference Range Interpretation Comme nts LIPASE (test code = 2057) 26 U/L Toney RennerCOMPREHENSIVE METABOLIC [id number] 00:00:00* Test Item Value Reference Range Interpretation Comme nts GLUCOSE (test code = 2217) 298 MG/DL BUN (test code = 2208) 21 MG/DL CREATININE (test code = 2214) 0.56 MG/DL eGFR AMER. (test cod e = 52807) 113 ML/MIN/1.73 eGFR NON- AMER. (test code = 82300) 97 ML/MIN/1.73 CALC BUN/CREAT (test code = [...] (test code = 2219) 21 [facility] [id number] 00:00:00* Test Item Value Reference Range Interpretation [...] code = 1015) 204 K/UL Toney Cowan AustinCBC W/AUTO [id number] 00:00:00* Test Item Value Reference Range Interpretation [...] code = 1015) 204 K/UL Toney F [id number] 00:00:00* Test Item Value Reference Range Interpretation Comme nts AMYLASE (test code = 2205) 57 U/L Toney F [id number] 00:00:00* Test Item Value Reference Range Interpretation Comme nts LIPASE (test code = 2058) 26 U/L Toney F [id number] 00:00:00* Test Item Value Reference Range Interpretation Comme nts AMYLASE (test code = 2205) 57 U/L Toney F [id number] 00:00:00* Test Item Value Reference Range Interpretation Comme nts LIPASE (test code = 2058) 26 U/L Toney F AustinCOMPREHENSIVE METABOLIC [id number] 00:00:00* Test Item Value Reference Range Interpretation Comme nts GLUCOSE (test code = 2217) 298 MG/DL BUN (test code = 2208) 21 MG/DL CREATININE (test code = 2214) 0.56 MG/DL eGFR AMER. (test cod e = 51302) 113 ML/MIN/1.73 eGFR NON- AMER. (test code = 40105) 97 ML/MIN/1.73 CALC BUN/CREAT (test code = [...] 2219) 21 U/L Toney Cowan ZurdoCBC W/AUTO [id number] 00:00:00* Test Item Value Reference Range Interpretation [...] code = 1015) 204 K/UL Toney Cowan [id number] 00:00:00* Test Item Value Reference Range Interpretation Comme nts AMYLASE (test code = 2205) 57 U/L Toney Cowan [id number] 00:00:00* Test Item Value Reference Range Interpretation Comme nts LIPASE (test code = 2057) 26 U/L Toney Cowan ZurdoCOMPREHENSIVE METABOLIC [id number] 00:00:00* Test Item Value Reference Range Interpretation Comme nts GLUCOSE (test code = 2217) 298 MG/DL BUN (test code = 2208) 21 MG/DL CREATININE (test code = 2214) 0.56 MG/DL eGFR AMER. (test cod e = ) 113 ML/MIN/1.73 eGFR NON- AMER. (test code = 92205) 97 ML/MIN/1.73 CALC BUN/CREAT (test code = [...] (test code = 2219) 21 U/L Toney RnenerCBC W/AUTO [id number] 00:00:00* Test Item Value Reference Range Interpretation [...] (test code = 1015) 204 K/UL Toney [id number] 00:00:00* Test Item Value Reference Range Interpretation Comme nts AMYLASE (test code = 2205) 57 U/L Toney Cowan [id number] 00:00:00* Test Item Value Reference Range Interpretation Comme nts LIPASE (test code = 2057) 26 U/L Toney RennerCOMPREHENSIVE METABOLIC [id number] 00:00:00* Test Item Value Reference Range Interpretation Comme nts GLUCOSE (test code = 2217) 298 MG/DL BUN (test code = 2208) 21 MG/DL CREATININE (test code = 2214) 0.56 MG/DL eGFR AMER. (test cod e = 35436) 113 ML/MIN/1.73 eGFR NON- AMER. (test code = 07975) 97 ML/MIN/1.73 CALC BUN/CREAT (test code = [...] = 2219) 21 U/L Toney RennerCBC W/AUTO [id number] 00:00:00* Test Item Value Reference Range Interpretation [...] code = 1015) 204 K/UL Toney Cowan [id number] 00:00:00* Test Item Value Reference Range Interpretation Comme nts AMYLASE (test code = 2205) 57 U/L Toney F [id number] 00:00:00* Test Item Value Reference Range Interpretation Comme nts LIPASE (test code = 2058) 26 U/L Toney Cowan AustinCOMPREHENSIVE METABOLIC [id number] 00:00:00* Test Item Value Reference Range Interpretation Comme nts GLUCOSE (test code = 2217) 298 MG/DL BUN (test code = 2208) 21 MG/DL CREATININE (test code = 2214) 0.56 MG/DL eGFR AMER. (test cod e = 16502) 113 ML/MIN/1.73 eGFR NON- AMER. (test code = 20508) 97 ML/MIN/1.73 CALC BUN/CREAT (test code = [...] = 2219) 21 U/L Toney RennerCBC W/AUTO [id number] 00:00:00* Test Item Value Reference Range Interpretation [...] code = 1015) 204 K/UL Toney Cowan [id number] 00:00:00* Test Item Value Reference Range Interpretation Comme nts AMYLASE (test code = 5) 57 U/L Toney Cowan [id number] 00:00:00* Test Item Value Reference Range Interpretation Comme nts LIPASE (test code = 2057) 26 U/L Toney Cowan AustinCOMPREHENSIVE METABOLIC [id number] 00:00:00* Test Item Value Reference Range Interpretation Comme nts GLUCOSE (test code = 2217) 298 MG/DL BUN (test code = 2208) 21 MG/DL CREATININE (test code = 2214) 0.56 MG/DL eGFR AMER. (test cod e = 34489) 113 ML/MIN/1.73 eGFR NON- AMER. (test code = 37286) 97 ML/MIN/1.73 CALC BUN/CREAT (test code = [...] = 2219) 21 U/L Toney RennerCBC W/AUTO [id number] 00:00:00* Test Item Value Reference Range Interpretation [...] code = 1015) 204 K/UL Toney Cowan [id number] 00:00:00* Test Item Value Reference Range Interpretation Comme nts AMYLASE (test code = 2205) 57 U/L Toney Cowan [id number] 00:00:00* Test Item Value Reference Range Interpretation Comme nts LIPASE (test code = 2058) 26 U/L Toney RennerCOMPREHENSIVE METABOLIC [id number] 00:00:00* Test Item Value Reference Range Interpretation Comme nts GLUCOSE (test code = 2217) 298 MG/DL BUN (test code = 2208) 21 MG/DL CREATININE (test code = 2214) 0.56 MG/DL eGFR AMER. (test cod e = 11770) 113 ML/MIN/1.73 eGFR NON- AMER. (test code = 96321) 97 ML/MIN/1.73 CALC BUN/CREAT (test code = [...] code = 2219) 21 U/L CBC W/AUTO [id number] 00:00:00* Test Item Value Reference Range Interpretation [...] COUNT (test code = 1015) 204 K/UL [id number] 00:00:00* Test Item Value Reference Range Interpretation Comme nts AMYLASE (test code = 2205) 57 U/L [id number] 00:00:00* Test Item Value Reference Range Interpretation Comme nts LIPASE (test code = 2057) 26 U/L COMPREHENSIVE METABOLIC [id number] 00:00:00* Test Item Value Reference Range Interpretation Comme nts GLUCOSE (test code = 2217) 298 MG/DL BUN (test code = 2208) 21 MG/DL CREATININE (test code = 2214) 0.56 MG/DL eGFR AMER. (test cod e = 42820) 113 ML/MIN/1.73 eGFR NON- AMER. (test code = 46506) 97 ML/MIN/1.73 CALC BUN/CREAT (test code = [...] code = 2219) 21 U/L CBC W/AUTO [id number] 00:00:00* Test Item Value Reference Range Interpretation [...] COUNT (test code = 1015) 204 K/UL [id number] 00:00:00* Test Item Value Reference Range Interpretation Comme nts AMYLASE (test code = 5) 57 U/L [id number] 00:00:00* Test Item Value Reference Range Interpretation Comme nts LIPASE (test code = 2057) 26 U/L COMPREHENSIVE METABOLIC [id number] 00:00:00* Test Item Value Reference Range Interpretation Comme nts GLUCOSE (test code = 2217) 298 MG/DL BUN (test code = 2208) 21 MG/DL CREATININE (test code = 2214) 0.56 MG/DL eGFR AMER. (test cod e = ) 113 ML/MIN/1.73 eGFR NON- AMER. (test code = 16637) 97 ML/MIN/1.73 CALC BUN/CREAT (test code = [...] code = 2219) 21 U/L CBC W/AUTO [id number] 00:00:00* Test Item Value Reference Range Interpretation [...] COUNT (test code = 1015) 204 K/UL [id number] 00:00:00* Test Item Value Reference Range Interpretation Comme nts AMYLASE (test code = 2205) 57 U/L [id number] 00:00:00* Test Item Value Reference Range Interpretation Comme nts LIPASE (test code = 205) 26 U/L COMPREHENSIVE METABOLIC [id number] 00:00:00* Test Item Value Reference Range Interpretation Comme nts GLUCOSE (test code = 2217) 298 MG/DL BUN (test code = 2208) 21 MG/DL CREATININE (test code = 2214) 0.56 MG/DL eGFR AMER. (test cod e = 40108) 113 ML/MIN/1.73 eGFR NON- AMER. (test code = 70888) 97 ML/MIN/1.73 CALC BUN/CREAT (test code = [...] code = 2219) 21 U/L CBC W/AUTO [id number] 00:00:00* Test Item Value Reference Range Interpretation [...] code = 1015) 204 K/UL COMPREHENSIVE METABOLIC [id number] 00:00:00* Test Item Value Reference Range Interpretation Comme nts GLUCOSE (test code = 2217) 298 MG/DL BUN (test code = 2208) 21 MG/DL CREATININE (test code = 2214) 0.56 MG/DL eGFR AMER. (test cod e = 33747) 113 ML/MIN/1.73 eGFR NON- AMER. (test code = 55344) 97 ML/MIN/1.73 CALC BUN/CREAT (test code = [...] ALT (test code = 2219) 21 U/L [id number] 00:00:00* Test Item Value Reference Range Interpretation Comme nts AMYLASE (test code = 2205) 57 U/L [id number] 00:00:00* Test Item Value Reference Range Interpretation Comme nts LIPASE (test code = 205) 26 U/L CBC W/AUTO [id number] 00:00:00* Test Item Value Reference Range Interpretation [...] COUNT (test code = 1015) 204 K/UL [id number] 00:00:00* Test Item Value Reference Range Interpretation Comme nts AMYLASE (test code = 2205) 57 U/L COMPREHENSIVE METABOLIC [id number] 00:00:00* Test Item Value Reference Range Interpretation Comme nts GLUCOSE (test code = 2217) 298 MG/DL BUN (test code = 2208) 21 MG/DL CREATININE (test code = 2214) 0.56 MG/DL eGFR AMER. (test cod e = 08358) 113 ML/MIN/1.73 eGFR NON- AMER. (test code = 44230) 97 ML/MIN/1.73 CALC BUN/CREAT (test code = [...] code = 2219) 21 U/L CBC W/AUTO [id number] 00:00:00* Test Item Value Reference Range Interpretation [...] COUNT (test code = 1015) 204 K/UL [id number] 00:00:00* Test Item Value Reference Range Interpretation Comme nts LIPASE (test code = 2057) 26 U/L [id number] 00:00:00* Test Item Value Reference Range Interpretation Comme nts AMYLASE (test code = 2204) 57 U/L [id number] 00:00:00* Test Item Value Reference Range Interpretation Comme nts LIPASE (test code = 2057) 26 U/L COMPREHENSIVE METABOLIC [id number] 00:00:00* Test Item Value Reference Range Interpretation Comme nts GLUCOSE (test code = 2217) 298 MG/DL BUN (test code = 2208) 21 MG/DL CREATININE (test code = 2214) 0.56 MG/DL eGFR AMER. (test cod e = 13996) 113 ML/MIN/1.73 eGFR NON- AMER. (test code = 53709) 97 ML/MIN/1.73 CALC BUN/CREAT (test code = [...] code = 2219) 21 U/L CBC W/AUTO [id number] 00:00:00* Test Item Value Reference Range Interpretation [...] COUNT (test code = 1015) 204 K/UL [id number] 00:00:00* Test Item Value Reference Range Interpretation Comme nts AMYLASE (test code = 2205) 57 U/L [id number] 00:00:00* Test Item Value Reference Range Interpretation Comme nts LIPASE (test code = 2058) 26 U/L COMPREHENSIVE METABOLIC [id number] 00:00:00* Test Item Value Reference Range Interpretation Comme nts GLUCOSE (test code = 2217) 298 MG/DL BUN (test code = 2208) 21 MG/DL CREATININE (test code = 2214) 0.56 MG/DL eGFR AMER. (test cod e = 30527) 113 ML/MIN/1.73 eGFR NON- AMER. (test code = 46577) 97 ML/MIN/1.73 CALC BUN/CREAT (test code = [...] code = 2219) 21 U/L CBC W/AUTO [id number] 00:00:00* Test Item Value Reference Range Interpretation [...] COUNT (test code = 1015) 204 K/UL [id number] 00:00:00* Test Item Value Reference Range Interpretation Comme nts AMYLASE (test code = 2204) 57 U/L [id number] 00:00:00* Test Item Value Reference Range Interpretation Comme nts LIPASE (test code = 2057) 26 U/L COMPREHENSIVE METABOLIC [id number] 00:00:00* Test Item Value Reference Range Interpretation Comme nts GLUCOSE (test code = 2217) 298 MG/DL BUN (test code = 2208) 21 MG/DL CREATININE (test code = 2214) 0.56 MG/DL eGFR AMER. (test cod e = 17535) 113 ML/MIN/1.73 eGFR NON- AMER. (test code = 04589) 97 ML/MIN/1.73 CALC BUN/CREAT (test code = [...] code = 2219) 21 U/L CBC W/AUTO [id number] 00:00:00* Test Item Value Reference Range Interpretation [...] COUNT (test code = 1015) 204 K/UL [id number] 00:00:00* Test Item Value Reference Range Interpretation Comme nts AMYLASE (test code = 2205) 57 U/L [id number] 00:00:00* Test Item Value Reference Range Interpretation Comme nts LIPASE (test code = 2057) 26 U/L CBC W/AUTO [id number] 00:00:00* Test Item Value Reference Range Interpretation [...] = 1015) 227 K/UL Toney RennerCBC W/AUTO [id number] 00:00:00* Test Item Value Reference Range Interpretation [...] code = 1015) 227 K/UL Toney RennerHEMOGLOBIN [id number] 00:00:00* Test Item Value Reference Range Interpretation Comme nts HEMOGLOBIN A1c (test code = 23104) 7.5 % Toney Cowan ZurdoMICROALBUMIN/CREATININE, RANDOM AND [id number] 00:00:00* Test Item Value Reference Range Interpretation Comme nts CREATININE, URINE, CONC. (te st code = 2072) 101.2 MG/DL MICROALBUMIN, RANDOM (test c ode = 68187) <0.2 MG/DL CALC MICROALB/CREAT RND (baljinder t code = 70957) <2 MG/G Toney RennerLIPID [id number] 00:00:00* Test Item Value Reference Range Interpretation Comme nts CHOLESTEROL (test code = 2210) 218 MG/DL TRIGLYCERIDES (test code = 2232) 173 MG/DL HDL CHOLESTEROL (test code = 2220) 49 MG/DL CALC LDL CHOL (test code = 2237) 134 MG/DL RISK RATIO LDL/HDL (test cod e = 2238) 2.74 RATIO Toney RennerCOMPREHENSIVE METABOLIC [id number] 00:00:00* Test Item Value Reference Range Interpretation Comme nts GLUCOSE (test code = 2217) 160 MG/DL BUN (test code = 2208) 23 MG/DL CREATININE (test code = 2214) 0.67 MG/DL eGFR AMER. (test cod e = 69117) 106 ML/MIN/1.73 eGFR NON- AMER. (test code = 98277) 92 ML/MIN/1.73 CALC BUN/CREAT (test code = [...] = 2219) 22 U/L Toney RennerCBC W/AUTO [id number] 00:00:00* Test Item Value Reference Range Interpretation [...] code = 1015) 227 K/UL Toney RennerHEMOGLOBIN [id number] 00:00:00* Test Item Value Reference Range Interpretation Comme katty HEMOGLOBIN A1c (test code = 34689) 7.5 % Toney RennerMICROALBUMIN/CREATININE, RANDOM AND [id number] 00:00:00* Test Item Value Reference Range Interpretation Comme nts CREATININE, URINE, CONC. (te st code = 2072) 101.2 MG/DL MICROALBUMIN, RANDOM (test c ode = 77837) <0.2 MG/DL CALC MICROALB/CREAT RND (baljinder t code = 11329) <2 MG/G Toney RennerLIPID [id number] 00:00:00* Test Item Value Reference Range Interpretation Comme nts CHOLESTEROL (test code = 2210) 218 MG/DL TRIGLYCERIDES (test code = 2232) 173 MG/DL HDL CHOLESTEROL (test code = 2220) 49 MG/DL CALC LDL CHOL (test code = 2237) 134 MG/DL RISK RATIO LDL/HDL (test cod e = 2238) 2.74 RATIO Toney RennerCOMPREHENSIVE METABOLIC [id number] 00:00:00* Test Item Value Reference Range Interpretation Comme nts GLUCOSE (test code = 2217) 160 MG/DL BUN (test code = 2208) 23 MG/DL CREATININE (test code = 2214) 0.67 MG/DL eGFR AMER. (test cod e = 55057) 106 ML/MIN/1.73 eGFR NON- AMER. (test code = 09816) 92 ML/MIN/1.73 CALC BUN/CREAT (test code = [...] code = 2219) 22 U/L Toney RennerHEMOGLOBIN [id number] 00:00:00* Test Item Value Reference Range Interpretation Comme [facility] HEMOGLOBIN A1c (test code = 21880) 7.5 % Toney RennerCBC W/AUTO [id number] 00:00:00* Test Item Value Reference Range Interpretation [...] = 1015) 227 K/UL Toney Cowan AustinHEMOGLOBIN [id number] 00:00:00* Test Item Value Reference Range Interpretation Comme [facility] HEMOGLOBIN A1c (test code = 76003) 7.5 % Toney RennerMICROALBUMIN/CREATININE, RANDOM AND [id number] 00:00:00* Test Item Value Reference Range Interpretation Comme [facility] CREATININE, URINE, CONC. (te st code = 2072) 101.2 MG/DL MICROALBUMIN, RANDOM (test c ode = 56654) <0.2 MG/DL CALC MICROALB/CREAT RND (baljinder t code = 69038) <2 MG/G Toney RennerLIPID [id number] 00:00:00* Test Item Value Reference Range Interpretation Comme nts CHOLESTEROL (test code = 2210) 218 MG/DL TRIGLYCERIDES (test code = 2232) 173 MG/DL HDL CHOLESTEROL (test code = 2220) 49 MG/DL CALC LDL CHOL (test code = 2237) 134 MG/DL RISK RATIO LDL/HDL (test cod e = 2238) 2.74 RATIO Toney RennerCOMPREHENSIVE METABOLIC [id number] 00:00:00* Test Item Value Reference Range Interpretation Comme nts GLUCOSE (test code = 2217) 160 MG/DL BUN (test code = 2208) 23 MG/DL CREATININE (test code = 2214) 0.67 MG/DL eGFR AMER. (test cod e = 33250) 106 ML/MIN/1.73 eGFR NON- AMER. (test code = 66054) 92 ML/MIN/1.73 CALC BUN/CREAT (test code = [...] (test code = 2219) 22 U/L Toney RennerMICROALBUMIN/CREATININE, RANDOM AND [id number] 00:00:00* Test Item Value Reference Range Interpretation Comme nts CREATININE, URINE, CONC. (te st code = 2072) 101.2 MG/DL MICROALBUMIN, RANDOM (test c ode = 01661) <0.2 MG/DL CALC MICROALB/CREAT RND (baljinder t code = 32322) <2 MG/G Toney RennerLIPID [id number] 00:00:00* Test Item Value Reference Range Interpretation Comme nts CHOLESTEROL (test code = 2210) 218 MG/DL TRIGLYCERIDES (test code = 2232) 173 MG/DL HDL CHOLESTEROL (test code = 2220) 49 MG/DL CALC LDL CHOL (test code = 2237) 134 MG/DL RISK RATIO LDL/HDL (test cod e = 2238) 2.74 RATIO Toney RennerCOMPREHENSIVE METABOLIC [id number] 00:00:00* Test Item Value Reference Range Interpretation Comme nts GLUCOSE (test code = 2217) 160 MG/DL BUN (test code = 2208) 23 MG/DL CREATININE (test code = 2214) 0.67 MG/DL eGFR AMER. (test cod e = 85236) 106 ML/MIN/1.73 eGFR NON- AMER. (test code = 60105) 92 ML/MIN/1.73 CALC BUN/CREAT (test code = [...] = 2219) 22 U/L Toney RennerCBC W/AUTO [id number] 00:00:00* Test Item Value Reference Range Interpretation [...] code = 1015) 227 K/UL Toney RennerHEMOGLOBIN [id number] 00:00:00* Test Item Value Reference Range Interpretation Comme katty HEMOGLOBIN A1c (test code = 72175) 7.5 % Toney RennerMICROALBUMIN/CREATININE, RANDOM AND [id number] 00:00:00* Test Item Value Reference Range Interpretation Comme katty CREATININE, URINE, CONC. (te st code = 2072) 101.2 MG/DL MICROALBUMIN, RANDOM (test c ode = 61934) <0.2 MG/DL CALC MICROALB/CREAT RND (baljinder t code = 31190) <2 MG/G Toney RennerLIPID [id number] 00:00:00* Test Item Value Reference Range Interpretation Comme nts CHOLESTEROL (test code = 2210) 218 MG/DL TRIGLYCERIDES (test code = 2232) 173 MG/DL HDL CHOLESTEROL (test code = 2220) 49 MG/DL CALC LDL CHOL (test code = 2237) 134 MG/DL RISK RATIO LDL/HDL (test cod e = 2238) 2.74 RATIO Toney RennerCOMPREHENSIVE METABOLIC [id number] 00:00:00* Test Item Value Reference Range Interpretation Comme nts GLUCOSE (test code = 2217) 160 MG/DL BUN (test code = 2208) 23 MG/DL CREATININE (test code = 2214) 0.67 MG/DL eGFR AMER. (test cod e = 22758) 106 ML/MIN/1.73 eGFR NON- AMER. (test code = 59112) 92 ML/MIN/1.73 CALC BUN/CREAT (test code = [...] code = 2219) 22 U/L [facility] [id number] 00:00:00* Test Item Value Reference Range Interpretation [...] = 1015) 227 K/UL Toney Cowan ZurdoHEMOGLOBIN [id number] 00:00:00* Test Item Value Reference Range Interpretation Comme [facility] HEMOGLOBIN A1c (test code = 49894) 7.5 % Toney Cowan ZurdoMICROALBUMIN/CREATININE, RANDOM AND [id number] 00:00:00* Test Item Value Reference Range Interpretation Comme nts CREATININE, URINE, CONC. (te st code = 2072) 101.2 MG/DL MICROALBUMIN, RANDOM (test c ode = 36837) <0.2 MG/DL CALC MICROALB/CREAT RND (baljinder t code = 02206) <2 MG/G Toney RennerLIPID [id number] 00:00:00* Test Item Value Reference Range Interpretation Comme nts CHOLESTEROL (test code = 2210) 218 MG/DL TRIGLYCERIDES (test code = 2232) 173 MG/DL HDL CHOLESTEROL (test code = 2220) 49 MG/DL CALC LDL CHOL (test code = 2237) 134 MG/DL RISK RATIO LDL/HDL (test cod e = 2238) 2.74 RATIO Toney RennerCOMPREHENSIVE METABOLIC [id number] 00:00:00* Test Item Value Reference Range Interpretation Comme nts GLUCOSE (test code = 2217) 160 MG/DL BUN (test code = 2208) 23 MG/DL CREATININE (test code = 2214) 0.67 MG/DL eGFR AMER. (test cod e = 18140) 106 ML/MIN/1.73 eGFR NON- AMER. (test code = 99538) 92 ML/MIN/1.73 CALC BUN/CREAT (test code = [...] = 2219) 22 U/L Toney RennerCBC W/AUTO [id number] 00:00:00* Test Item Value Reference Range Interpretation [...] code = 1015) 227 K/UL Toney RennerHEMOGLOBIN [id number] 00:00:00* Test Item Value Reference Range Interpretation Comme nts HEMOGLOBIN A1c (test code = 50496) 7.5 % Toney RennerMICROALBUMIN/CREATININE, RANDOM AND [id number] 00:00:00* Test Item Value Reference Range Interpretation Comme nts CREATININE, URINE, CONC. (te st code = 2072) 101.2 MG/DL MICROALBUMIN, RANDOM (test c ode = 38882) <0.2 MG/DL CALC MICROALB/CREAT RND (baljinder t code = 52989) <2 MG/G Toney RennerLIPID [id number] 00:00:00* Test Item Value Reference Range Interpretation Comme nts CHOLESTEROL (test code = 2210) 218 MG/DL TRIGLYCERIDES (test code = 2232) 173 MG/DL HDL CHOLESTEROL (test code = 2220) 49 MG/DL CALC LDL CHOL (test code = 2237) 134 MG/DL RISK RATIO LDL/HDL (test cod e = 2238) 2.74 RATIO Toney RennerCOMPREHENSIVE METABOLIC [id number] 00:00:00* Test Item Value Reference Range Interpretation Comme nts GLUCOSE (test code = 2217) 160 MG/DL BUN (test code = 2208) 23 MG/DL CREATININE (test code = 2214) 0.67 MG/DL eGFR AMER. (test cod e = 83924) 106 ML/MIN/1.73 eGFR NON- AMER. (test code = 87426) 92 ML/MIN/1.73 CALC BUN/CREAT (test code = [...] = 2219) 22 U/L Toney RennerCBC W/AUTO [id number] 00:00:00* Test Item Value Reference Range Interpretation [...] code = 1015) 227 K/UL Toney RennerHEMOGLOBIN [id number] 00:00:00* Test Item Value Reference Range Interpretation Comme [facility] HEMOGLOBIN A1c (test code = 95318) 7.5 % Toney RennerMICROALBUMIN/CREATININE, RANDOM AND [id number] 00:00:00* Test Item Value Reference Range Interpretation Comme nts CREATININE, URINE, CONC. (te st code = 2072) 101.2 MG/DL MICROALBUMIN, RANDOM (test c ode = 63013) <0.2 MG/DL CALC MICROALB/CREAT RND (baljinder t code = 36580) <2 MG/G Toney RennerLIPID [id number] 00:00:00* Test Item Value Reference Range Interpretation Comme nts CHOLESTEROL (test code = 2210) 218 MG/DL TRIGLYCERIDES (test code = 2232) 173 MG/DL HDL CHOLESTEROL (test code = 2220) 49 MG/DL CALC LDL CHOL (test code = 2237) 134 MG/DL RISK RATIO LDL/HDL (test cod e = 2238) 2.74 RATIO Toney RennerCOMPREHENSIVE METABOLIC [id number] 00:00:00* Test Item Value Reference Range Interpretation Comme nts GLUCOSE (test code = 2217) 160 MG/DL BUN (test code = 2208) 23 MG/DL CREATININE (test code = 2214) 0.67 MG/DL eGFR AMER. (test cod e = 39053) 106 ML/MIN/1.73 eGFR NON- AMER. (test code = 35993) 92 ML/MIN/1.73 CALC BUN/CREAT (test code = [...] = 2219) 22 U/L Toney RennerCBC W/AUTO [id number] 00:00:00* Test Item Value Reference Range Interpretation [...] code = 1015) 227 K/UL Toney RennerHEMOGLOBIN [id number] 00:00:00* Test Item Value Reference Range Interpretation Comme nts HEMOGLOBIN A1c (test code = 07212) 7.5 % Toney RennerMICROALBUMIN/CREATININE, RANDOM AND [id number] 00:00:00* Test Item Value Reference Range Interpretation Comme nts CREATININE, URINE, CONC. (te st code = 2072) 101.2 MG/DL MICROALBUMIN, RANDOM (test c ode = 84125) <0.2 MG/DL CALC MICROALB/CREAT RND (baljinder t code = 32424) <2 MG/G Toney RennerLIPID [id number] 00:00:00* Test Item Value Reference Range Interpretation Comme nts CHOLESTEROL (test code = 2210) 218 MG/DL TRIGLYCERIDES (test code = 2232) 173 MG/DL HDL CHOLESTEROL (test code = 2220) 49 MG/DL CALC LDL CHOL (test code = 2237) 134 MG/DL RISK RATIO LDL/HDL (test cod e = 2238) 2.74 RATIO Toney RennerCOMPREHENSIVE METABOLIC [id number] 00:00:00* Test Item Value Reference Range Interpretation Comme nts GLUCOSE (test code = 2217) 160 MG/DL BUN (test code = 2208) 23 MG/DL CREATININE (test code = 2214) 0.67 MG/DL eGFR AMER. (test cod e = 97795) 106 ML/MIN/1.73 eGFR NON- AMER. (test code = 77282) 92 ML/MIN/1.73 CALC BUN/CREAT (test code = [...] code = 2219) 22 U/L [facility] [id number] 00:00:00* Test Item Value Reference Range Interpretation [...] (test code = 1015) 227 K/UL HEMOGLOBIN [id number] 00:00:00* Test Item Value Reference Range Interpretation Comme nts HEMOGLOBIN A1c (test code = 74080) 7.5 % MICROALBUMIN/CREATININE, RANDOM AND [id number] 00:00:00* Test Item Value Reference Range Interpretation Comme nts CREATININE, URINE, CONC. (te st code = 2072) 101.2 MG/DL MICROALBUMIN, RANDOM (test c ode = 22716) <0.2 MG/DL CALC MICROALB/CREAT RND (baljinder t code = 64927) <2 MG/G LIPID [id number] 00:00:00* Test Item Value Reference Range Interpretation Comme nts CHOLESTEROL (test code = 2210) 218 MG/DL TRIGLYCERIDES (test code = 2232) 173 MG/DL HDL CHOLESTEROL (test code = 2220) 49 MG/DL CALC LDL CHOL (test code = 2237) 134 MG/DL RISK RATIO LDL/HDL (test cod e = 2238) 2.74 RATIO COMPREHENSIVE METABOLIC [id number] 00:00:00* Test Item Value Reference Range Interpretation Comme nts GLUCOSE (test code = 2217) 160 MG/DL BUN (test code = 2208) 23 MG/DL CREATININE (test code = 2214) 0.67 MG/DL eGFR AMER. (test cod e = 76854) 106 ML/MIN/1.73 eGFR NON- AMER. (test code = 97469) 92 ML/MIN/1.73 CALC BUN/CREAT (test code = [...] code = 2219) 22 U/L CBC W/AUTO [id number] 00:00:00* Test Item Value Reference Range Interpretation [...] (test code = 1015) 227 K/UL HEMOGLOBIN [id number] 00:00:00* Test Item Value Reference Range Interpretation Comme nts HEMOGLOBIN A1c (test code = 22642) 7.5 % MICROALBUMIN/CREATININE, RANDOM AND [id number] 00:00:00* Test Item Value Reference Range Interpretation Comme nts CREATININE, URINE, CONC. (te st code = 2072) 101.2 MG/DL MICROALBUMIN, RANDOM (test c ode = 13046) <0.2 MG/DL CALC MICROALB/CREAT RND (baljinder t code = 52478) <2 MG/G LIPID [id number] 00:00:00* Test Item Value Reference Range Interpretation Comme nts CHOLESTEROL (test code = 2210) 218 MG/DL TRIGLYCERIDES (test code = 2232) 173 MG/DL HDL CHOLESTEROL (test code = 2220) 49 MG/DL CALC LDL CHOL (test code = 2237) 134 MG/DL RISK RATIO LDL/HDL (test cod e = 2238) 2.74 RATIO COMPREHENSIVE METABOLIC [id number] 00:00:00* Test Item Value Reference Range Interpretation Comme nts GLUCOSE (test code = 2217) 160 MG/DL BUN (test code = 2208) 23 MG/DL CREATININE (test code = 2214) 0.67 MG/DL eGFR AMER. (test cod e = 56081) 106 ML/MIN/1.73 eGFR NON- AMER. (test code = 02673) 92 ML/MIN/1.73 CALC BUN/CREAT (test code = [...] code = 2219) 22 U/L CBC W/AUTO [id number] 00:00:00* Test Item Value Reference Range Interpretation [...] (test code = 1015) 227 K/UL HEMOGLOBIN [id number] 00:00:00* Test Item Value Reference Range Interpretation Comme nts HEMOGLOBIN A1c (test code = 78610) 7.5 % MICROALBUMIN/CREATININE, RANDOM AND [id number] 00:00:00* Test Item Value Reference Range Interpretation Comme nts CREATININE, URINE, CONC. (te st code = 2072) 101.2 MG/DL MICROALBUMIN, RANDOM (test c ode = 39396) <0.2 MG/DL CALC MICROALB/CREAT RND (baljinder t code = 44670) <2 MG/G LIPID [id number] 00:00:00* Test Item Value Reference Range Interpretation Comme nts CHOLESTEROL (test code = 2210) 218 MG/DL TRIGLYCERIDES (test code = 2232) 173 MG/DL HDL CHOLESTEROL (test code = 2220) 49 MG/DL CALC LDL CHOL (test code = 2237) 134 MG/DL RISK RATIO LDL/HDL (test cod e = 2238) 2.74 RATIO COMPREHENSIVE METABOLIC [id number] 00:00:00* Test Item Value Reference Range Interpretation Comme nts GLUCOSE (test code = 2217) 160 MG/DL BUN (test code = 2208) 23 MG/DL CREATININE (test code = 2214) 0.67 MG/DL eGFR AMER. (test cod e = 21086) 106 ML/MIN/1.73 eGFR NON- AMER. (test code = 83276) 92 ML/MIN/1.73 CALC BUN/CREAT (test code = [...] code = 2219) 22 U/L CBC W/AUTO [id number] 00:00:00* Test Item Value Reference Range Interpretation [...] (test code = 1015) 227 K/UL HEMOGLOBIN [id number] 00:00:00* Test Item Value Reference Range Interpretation Comme nts HEMOGLOBIN A1c (test code = 62450) 7.5 % MICROALBUMIN/CREATININE, RANDOM AND [id number] 00:00:00* Test Item Value Reference Range Interpretation Comme nts CREATININE, URINE, CONC. (te st code = 2072) 101.2 MG/DL MICROALBUMIN, RANDOM (test c ode = 18152) <0.2 MG/DL CALC MICROALB/CREAT RND (baljinder t code = 67280) <2 MG/G LIPID [id number] 00:00:00* Test Item Value Reference Range Interpretation Comme nts CHOLESTEROL (test code = 2210) 218 MG/DL TRIGLYCERIDES (test code = 2232) 173 MG/DL HDL CHOLESTEROL (test code = 2220) 49 MG/DL CALC LDL CHOL (test code = 2237) 134 MG/DL RISK RATIO LDL/HDL (test cod e = 2238) 2.74 RATIO COMPREHENSIVE METABOLIC [id number] 00:00:00* Test Item Value Reference Range Interpretation Comme nts GLUCOSE (test code = 2217) 160 MG/DL BUN (test code = 2208) 23 MG/DL CREATININE (test code = 2214) 0.67 MG/DL eGFR AMER. (test cod e = 56385) 106 ML/MIN/1.73 eGFR NON- AMER. (test code = 90100) 92 ML/MIN/1.73 CALC BUN/CREAT (test code = [...] code = 2219) 22 U/L CBC W/AUTO [id number] 00:00:00* Test Item Value Reference Range Interpretation [...] (test code = 1015) 227 K/UL HEMOGLOBIN [id number] 00:00:00* Test Item Value Reference Range Interpretation Comme nts HEMOGLOBIN A1c (test code = 23296) 7.5 % MICROALBUMIN/CREATININE, RANDOM AND [id number] 00:00:00* Test Item Value Reference Range Interpretation Comme nts CREATININE, URINE, CONC. (te st code = 2072) 101.2 MG/DL MICROALBUMIN, RANDOM (test c ode = 36910) <0.2 MG/DL CALC MICROALB/CREAT RND (baljinder t code = 72703) <2 MG/G CBC W/AUTO [id number] 00:00:00* Test Item Value Reference Range Interpretation [...] (test code = 1015) 227 K/UL HEMOGLOBIN [id number] 00:00:00* Test Item Value Reference Range Interpretation Comme nts HEMOGLOBIN A1c (test code = 14009) 7.5 % MICROALBUMIN/CREATININE, RANDOM AND [id number] 00:00:00* Test Item Value Reference Range Interpretation Comme nts CREATININE, URINE, CONC. (te st code = 2072) 101.2 MG/DL MICROALBUMIN, RANDOM (test c ode = 37067) <0.2 MG/DL CALC MICROALB/CREAT RND (baljinder t code = 79491) <2 MG/G LIPID [id number] 00:00:00* Test Item Value Reference Range Interpretation Comme nts CHOLESTEROL (test code = 2210) 218 MG/DL TRIGLYCERIDES (test code = 2232) 173 MG/DL HDL CHOLESTEROL (test code = 2220) 49 MG/DL CALC LDL CHOL (test code = 2237) 134 MG/DL RISK RATIO LDL/HDL (test cod e = 2238) 2.74 RATIO LIPID [id number] 00:00:00* Test Item Value Reference Range Interpretation Comme nts CHOLESTEROL (test code = 2210) 218 MG/DL TRIGLYCERIDES (test code = 2232) 173 MG/DL HDL CHOLESTEROL (test code = 2220) 49 MG/DL CALC LDL CHOL (test code = 2237) 134 MG/DL RISK RATIO LDL/HDL (test cod e = 2238) 2.74 RATIO COMPREHENSIVE METABOLIC [id number] 00:00:00* Test Item Value Reference Range Interpretation Comme nts GLUCOSE (test code = 2217) 160 MG/DL BUN (test code = 2208) 23 MG/DL CREATININE (test code = 2214) 0.67 MG/DL eGFR AMER. (test cod e = 44342) 106 ML/MIN/1.73 eGFR NON- AMER. (test code = 18379) 92 ML/MIN/1.73 CALC BUN/CREAT (test code = [...] code = 2219) 22 U/L COMPREHENSIVE METABOLIC [id number] 00:00:00* Test Item Value Reference Range Interpretation Comme nts GLUCOSE (test code = 2217) 160 MG/DL BUN (test code = 2208) 23 MG/DL CREATININE (test code = 2214) 0.67 MG/DL eGFR AMER. (test cod e = 67481) 106 ML/MIN/1.73 eGFR NON- AMER. (test code = 03492) 92 ML/MIN/1.73 CALC BUN/CREAT (test code = [...] code = 2219) 22 U/L CBC W/AUTO [id number] 00:00:00* Test Item Value Reference Range Interpretation [...] (test code = 1015) 227 K/UL HEMOGLOBIN [id number] 00:00:00* Test Item Value Reference Range Interpretation Comme nts HEMOGLOBIN A1c (test code = 02816) 7.5 % MICROALBUMIN/CREATININE, RANDOM AND [id number] 00:00:00* Test Item Value Reference Range Interpretation Comme nts CREATININE, URINE, CONC. (te st code = 2072) 101.2 MG/DL MICROALBUMIN, RANDOM (test c ode = 06761) <0.2 MG/DL CALC MICROALB/CREAT RND (baljinder t code = 66668) <2 MG/G LIPID [id number] 00:00:00* Test Item Value Reference Range Interpretation Comme nts CHOLESTEROL (test code = 2210) 218 MG/DL TRIGLYCERIDES (test code = 2232) 173 MG/DL HDL CHOLESTEROL (test code = 2220) 49 MG/DL CALC LDL CHOL (test code = 2237) 134 MG/DL RISK RATIO LDL/HDL (test cod e = 2238) 2.74 RATIO COMPREHENSIVE METABOLIC [id number] 00:00:00* Test Item Value Reference Range Interpretation Comme nts GLUCOSE (test code = 2217) 160 MG/DL BUN (test code = 2208) 23 MG/DL CREATININE (test code = 2214) 0.67 MG/DL eGFR AMER. (test cod e = 67957) 106 ML/MIN/1.73 eGFR NON- AMER. (test code = 44077) 92 ML/MIN/1.73 CALC BUN/CREAT (test code = [...] code = 2219) 22 U/L CBC W/AUTO [id number] 00:00:00* Test Item Value Reference Range Interpretation [...] (test code = 1015) 227 K/UL HEMOGLOBIN [id number] 00:00:00* Test Item Value Reference Range Interpretation Comme nts HEMOGLOBIN A1c (test code = 15449) 7.5 % MICROALBUMIN/CREATININE, RANDOM AND [id number] 00:00:00* Test Item Value Reference Range Interpretation Comme nts CREATININE, URINE, CONC. (te st code = 2072) 101.2 MG/DL MICROALBUMIN, RANDOM (test c ode = 73519) <0.2 MG/DL CALC MICROALB/CREAT RND (baljinder t code = 80626) <2 MG/G LIPID [id number] 00:00:00* Test Item Value Reference Range Interpretation Comme nts CHOLESTEROL (test code = 2210) 218 MG/DL TRIGLYCERIDES (test code = 2232) 173 MG/DL HDL CHOLESTEROL (test code = 2220) 49 MG/DL CALC LDL CHOL (test code = 2237) 134 MG/DL RISK RATIO LDL/HDL (test cod e = 2238) 2.74 RATIO COMPREHENSIVE METABOLIC [id number] 00:00:00* Test Item Value Reference Range Interpretation Comme nts GLUCOSE (test code = 2217) 160 MG/DL BUN (test code = 2208) 23 MG/DL CREATININE (test code = 2214) 0.67 MG/DL eGFR AMER. (test cod e = 04102) 106 ML/MIN/1.73 eGFR NON- AMER. (test code = 11771) 92 ML/MIN/1.73 CALC BUN/CREAT (test code = [...] code = 2219) 22 U/L CBC W/AUTO [id number] 00:00:00* Test Item Value Reference Range Interpretation [...] (test code = 1015) 227 K/UL HEMOGLOBIN [id number] 00:00:00* Test Item Value Reference Range Interpretation Comme nts HEMOGLOBIN A1c (test code = 24333) 7.5 % MICROALBUMIN/CREATININE, RANDOM AND [id number] 00:00:00* Test Item Value Reference Range Interpretation Comme nts CREATININE, URINE, CONC. (te st code = 2072) 101.2 MG/DL MICROALBUMIN, RANDOM (test c ode = 30924) <0.2 MG/DL CALC MICROALB/CREAT RND (baljinder t code = 06272) <2 MG/G LIPID [id number] 00:00:00* Test Item Value Reference Range Interpretation Comme nts CHOLESTEROL (test code = 2210) 218 MG/DL TRIGLYCERIDES (test code = 2232) 173 MG/DL HDL CHOLESTEROL (test code = 2220) 49 MG/DL CALC LDL CHOL (test code = 2237) 134 MG/DL RISK RATIO LDL/HDL (test cod e = 2238) 2.74 RATIO COMPREHENSIVE METABOLIC [id number] 00:00:00* Test Item Value Reference Range Interpretation Comme nts GLUCOSE (test code = 2217) 160 MG/DL BUN (test code = 2208) 23 MG/DL CREATININE (test code = 2214) 0.67 MG/DL eGFR AMER. (test cod e = 69125) 106 ML/MIN/1.73 eGFR NON- AMER. (test code = 68587) 92 ML/MIN/1.73 CALC BUN/CREAT (test code = [...] ALT (test code = 2219) 22 U/L Notes <thead> Date/Time Note Provider Source [facility] [id number] 20:31:49 - keep wound clean and dry Future Tests Future scheduled test information is unavailable Pending Tests Pending diagnostic test information is unavailable Future Visits Future appointment information is unavailable Referrals to Other Providers <thead> Reason for Referral Referral Start Date Provider Provider Contact Information Provider Address NO PHYSICIAN ENTER NAME IN NOTES OTHER Future Procedures <thead> Procedure Name Ordered Date Scheduled Date Wound Care December 31, 2024 8:06pm December Future Medications Future medication information is unavailable Patient Instructions <tbody> Abdominal Pain, Adult, Easy- to-Read Nonspecific Chest Pain, Adul t, Omhs-qt-Wchu Aspirin Tablets Laceration Care, Adult, Easy -to-Read [facility] [id number] 00:00:00 [facility]2025-01-07 00:00:00 [facility]2025-01-03 00:00:00 [facility]2024-11-19 00:00:00 [facility]2024-11-07 00:00:00 [facility]2024-09-06 00:00:00 [facility]2024-08-24 00:00:00 [facility]2024-08-16 00:00:00 [facility]2024-05-09 00:00:00 [facility]2023-08-28 16:15:08 Received cardiac clearance from [facility] per Viviana it was sent on 06/17/[address] Sevilla at [phone] Donna Martinez [facility] [id number] 02:03:43 Pt given printed and verbal discharge [...] leaving in no apparent distress, Sweetie Moore [facility] CenterYnccii2439-17-73 23:09:10 Provider reports guiac test negative. Pt reports LLQ abd cramping. T [place] [id number] 22:09:58 Patient states she started having dark stools today Bri Brand [facility] [id number] 22:01:47 CC: abdominal pain x 3 days that comes up and garcia Belching repeatedly while in triage. Awake, alert, oriented, resp reg unlabored, skin warm and dry, color appropriate for race, moves all ext without difficulty, amb with no assist Appears in no distress T [facility] HospitalAfhlpg3070-06-16 08:53:14 ----- Message from Petrona Burnette MD sent at 06/16/2023 1:46 PM CDT ----- Please fax my note to GI: Dr. Saulo Sevilla SHAHEEN note faxed, confirmation received Sun Frazier [facility] CenterKkilrp0135-01-95 00:32:43 Pt given printed and verbal discharge [...] gait, in no apparent distress, Interpretor id #[id number] Marci Valdez [facility] CenterIojaee8817-29-98 18:19:57 Pt arrived via private car with c/o left side chest wall pain that is worse with deep breathing, per son her left arm "falls asleep". States that the pain has been ongoing x2 days and becoming worse.EKG done in triage. 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 METABOLIC PANEL (76137) - Abnormal NA 142 135 - 145 [...] VW CBC WITH DIFF COMP. METABOLIC PANEL (00876) LIPASE TROPONIN I N-TERMINAL PRO-BNP MAGNESIUM TROPONIN [...] VW CBC WITH DIFF COMP. METABOLIC PANEL (21719) LIPASE TROPONIN I N-TERMINAL PRO-BNP MAGNESIUM Problems Addressed: Atypical chest pain: acute illness or injury Details: ekg , unchanged, troponin x 2 negative Chest pain, unspecified type: acute illness or injury Details: ekg , unchanged, troponin x 2 negative Primary hypertension: chronic illness or injury Details: continue home medicaitons and follow up [facility] cardiology for further management Reflux gastritis: chronic [...] esophagealspasm. 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 Recommend continue all GI medications as [...] Does Not Have A Relationship: PCP - [address] [address] Electronically signed by: Betsey Boss NP 06/01/239 Associated attestation - Solomon Millan MD - 06/02/2023 12:04 AM CDT " I was personally available for consultation in the Emergency Department during this Patient evaluation/encounter by QUANG Enoch " [facility] HospitalLvnrgk7442-75-20 [id number] [place] [address] PATIENT NAME: DANIELLE MARTINEZ ADMIT DATE: 02/02/19 ACCOUNT NO: [id number] ROOM NO: H.436 AGE: 68 REPORT TYPE: [...] Levaquin and Flagyl. Dictated By: JOHN Aguirre Motor Vehicles Inspector for Krysta Villarreal MD WT: DS:JULIET/KEN/KATTY Conf#: [id number]/DID#: [id number] Authenticated by Ru Rivera On 03/11/2019 09:51:54 AM Authenticated by Krysta Villarreal MD On 03/14/2019 08:23:54 AM at 0824 at 0824 PATIENT NAME: DANIELLE MARTINEZ 07:07:00 [facility] ([facility]) Hospitalist Progress Note REPORT#:[id number] REPORT STATUS: Signed DATE:02/05/19 TIME: 706 PATIENT: DANIELLE MARTINEZ UNIT #: [id number] ROOM/BED: [address] : [address] AGE: 68 SEX: F [...] of motion, no edema Musculoskeletal: normal inspection 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 continue zosyn at 0712 RPT #:[id number] END OF [id number] 17:19:00 [facility] ([facility]) Trauma Consultation Note REPORT#:[id number] REPORT STATUS: Signed DATE:02/03/19 TIME: 171 PATIENT: DANIELLE MARTINEZ UNIT #: [id number] ROOM/BED: [address] : 51 AGE: 68 SEX: F [...] Time Status Admin Potassium Chloride/ 1,000 ML .[id number] 02/02 2200 AC 02/04 Dextrose/Sod Cl IV 03/04 2201 0552 (D5%-1/2NS-20meq KCL) Sodium Chloride 100 ML Q8HR 02/02 2200 AC 02/04 (SODIUM CHL 100ml IV 02/09 2201 1609 MINI-BAG PLUS) Gastrointestinal Drugs Sig/Rroo Start time Last Medication Dose Route Stop Time Status Admin Famotidine 20 MG BID 02/02 2200 AC 02/04 (PEPCID) PO 03/04 2201 1008 Bisacodyl 1 SUPP DAILY PRN PRN 02/02 2145 CKD (DULCOLAX 10mg) RECTAL 03/04 2146 Docusate Sodium 100 MG BID PRN PRN 04/09 2145 AC (COLACE) PO 03/04 2146 Magnesium [...] Musculoskeletal: full range of motion, normal inspection 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 no Jose G eyes: eyes open spontaneously 4 Jose G speech: oriented 5 Jose G motor: obeys [...] % (Auto) (16 - 50 %) 22.2 [place] % (Auto) (0.0 - 13.0 %) 8.3 [...] pH (4.6 - 8.0) 5.0 Ur Specific [place] (1.001 - 1.035) 1.025 Urine Protein (NEGATIVE [...] as tolerated. D/c planning at 2053 RPT #:[id number] END OF [id number] 07:16:00 [facility] ([facility]) Hospitalist Progress Note REPORT#:[id number] REPORT STATUS: Signed DATE:02/03/19 TIME: 715 PATIENT: DANIELLE MARTINEZ UNIT #: [id number] ROOM/BED: [address] : 51 AGE: 68 SEX: F [...] Room air 02/03 0338 96 Room air 02/029 97.9 59 18 150/90 109.8 97 Room air 02/02 2315 98.5 71 16 155/97 116 97 Room air 02/02 2257 98.7 80 20 124/74 90 99 Room air 02/03 2012 97.8 70 20 144/74 97 99 Room air 02/027 98.3 88 16 154/88 110 98 02/02 [...] of motion, no edema Musculoskeletal: normal inspection 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, oriented X 3 Skin: dry, intact, [...] % (Auto) (16 - 50 %) 22.2 [place] % (Auto) (0.0 - 13.0 %) 8.3 [...] pH (4.6 - 8.0) 5.0 Ur Specific [place] (1.001 - 1.035) 1.025 Urine Protein (NEGATIVE [...] analgesics antiemetics surgical consult at 0715 RPT #:[id number] END OF [id number] 14:33:00 [facility] ([facility]) EMERGENCY PROVIDER REPORT REPORT#:[id number] REPORT STATUS: Signed DATE:02/02/19 TIME: 1433 PATIENT: DANIELLE MARTINEZ UNIT #: [id number] ROOM/BED: [address] AGE: 68 SEX: F PCP PHYS: [...] 1410 Temp 37.1 02/02 1410 Pulse 79 04/ 1410 Resp 18 02/02 1410 Last Documented: [...] % (Auto) (16 - 50 %) 22.2 [place] % (Auto) (0.0 - 13.0 %) 8.3 [...] pH (4.6 - 8.0) 5.0 Ur Specific [place] (1.001 - 1.035) 1.025 Urine Protein (NEGATIVE [...] Barney Vang on 02/02/19 at 1441 Re-Evaluation [facility] )( Re-Evaluation/Progress #1 Time of Re-Eval 1715 )( Re-Eval Status Unchanged Re-Eval Abdomen Tenderness, Guarding ED Course Medication(s) Ordered Medication(s) Ordered: Central Nervous System Agents Sig/Roro Start time Last Medication Dose Route Stop Time Status Admin Morphine Sulfate 3 MG X1ED STA 02/02 1707 DC / IV 02/02 1708 1712 Morphine Sulfate 3 MG X1ED STA 02/02 1434 DC /09 IV 02/02 1435 1439 Electrolytic, Caloric, And Kwadwo Sig/Roro Start time Last Medication Dose Route Stop Time Status Admin Sodium Chloride 1,000 ML X1ED STA 02/02 1434 DC / IV 02/02 1533 1439 Gastrointestinal Drugs Sig/Roro Start time Last Medication Dose Route Stop Time Status Admin Ondansetron HCl 4 MG X1ED STA 02/02 1434 DC / IV 02/02 1435 1439 Consultation Consultation Referral/Consult Name Salvador Hensley MD Call Returned Call returned Motor Vehicles Inspector Will see patient, Agrees with eval, Agrees [...] )( Admission Accepts Yes )( Accepted Time 171 )( Accepted Date 02/02/19 Discharge/Care Plan Admit [...] Barney Vang on 02/02/19 at 1441 at 0825 RPT #[id number] END OF [id number] [place] [address] PATIENT NAME: DANIELLE MARTINEZ ADMIT DATE: 02/02/19 ACCOUNT NO: [id number] ROOM NO: [facility] AGE: 68 REPORT TYPE: ELECTROCARDIOGRAM SEX: F : 51 ADMITTING PHYSICIAN:Krysta Villarreal MD ATTENDING PHYSICIAN:Krysta Villarreal MD Order: [id number] Test Reason : EPIGATRIC PAIN Test Date/Time [...] No previous ECGs available Confirmed by MD SWANI RICHARD ([id number]) on 02/11/2019 8:01:36 AM Referred By: Self Referred Confirmed by:YONATAN SWAIN MD at 0806 PATIENT NAME: DANIELLE MARTINEZ
--- NOTE | 2025-02-19 15:46 | RAD REPORT ---
EXAM: Foot Left 3 View HISTORY: PAIN COMPARISON: 05/20/2021 FINDINGS: Bones: No acute fracture identified. Alignment:No significant malalignment. Degenerative changes:Plantar and dorsal aspect calcaneal spurs. Mild midfoot degenerative changes. Other: n/a IMPRESSION: No acute osseous abnormality.
--- NOTE | 2025-02-19 15:49 | ER ---
Nurse's Notes [facility] Name: Sapphire Martinez Age: 74 yrs Sex: Female : 1950 Arrival Date: 02/19/2025 Time: 15:05 Bed 9 Private MD: Diagnosis: Sprain of toe Presentation: 02/19 15:19 Chief complaint: Patient states: "I tripped and hurt my toes (left foot)". Pt denies aa5 fall. Pt reports incident occurred on Friday. 15:20 Coronavirus screen: At this time, the client does not indicate any symptoms associated aa5 with coronavirus-19. Ebola Screen: Patient denies travel to an Ebola-affected area in the 21 days before illness onset. Initial Sepsis Screen: Does the patient meet any 2 criteria? No. Patient's initial sepsis screen is negative. Does the patient have a suspected source of infection? No. Patient's initial sepsis screen is negative. Risk Assessment: Do you want to hurt yourself or someone else? Patient reports no desire to harm self or others. Onset of symptoms was January 2025. 15:20 Acuity: TONY 4 aa5 15:20 Method Of Arrival: Ambulatory aa5 Historical: - Allergies: 15:21 Advil; aa5 15:21 Aleve; aa5 - PMHx: 15:21 Arthritis; Colitis; Hyperlipidemia; Diabetes - NIDDM; gastritis; Hypertension; aa5 - PSHx: 15:21 Dillon knee sx; Bladder lift; hysterectomy; Left shoulder sx; Pancreas mass removed; aa5 - Immunization history:: Adult Immunizations unknown. - Infectious Disease History:: Denies. - Social history:: Smoking status: Patient denies any tobacco usage or history of. Screenin:00 [facility] ED Fall Risk Assessment (Adult) History of falling in the last 3 months, aa5 including since admission No falls in past 3 months (0 pts) Confusion or Disorientation No (0 pts) Intoxicated or Sedated No (0 pts) Impaired Gait No (0 pts) Mobility Assist Device Used No (0 pt) Altered Elimination No (0 pt) Score/Fall Risk Level 0 - 2 = Low Risk Oriented to surroundings, Maintained a safe environment, Educated pt \\T\\ family on fall prevention, incl call for assistance when getting out of bed, Assessed \\T\\ reinforced patient's understanding of fall precautions. Abuse screen: Denies threats or abuse. Nutritional screening: No deficits noted. Tuberculosis screening: No symptoms or risk factors identified. Assessment: 15:19 General: Appears comfortable, Behavior is calm, cooperative. Pain: Complains of pain in aa5 left fourth toe. Neuro: Level of Consciousness is awake, alert, obeys commands, Oriented to person, place, time, situation. Cardiovascular: Patient's skin is warm and dry. Respiratory: Airway is patent Respiratory effort is even, unlabored, Respiratory pattern is regular, symmetrical. GI: No signs and/or symptoms were reported involving the gastrointestinal system. : No signs and/or symptoms were reported regarding the genitourinary system. EENT: No signs and/or symptoms were reported regarding the EENT system. Derm: Skin is pink, warm \\T\\ dry. Musculoskeletal: Swelling present in left fourth toe. 16:00 Reassessment: Patient is alert, oriented x 3, equal unlabored respirations, skin aa5 warm/dry/pink. Vital Signs: 15:20 BP 136 / 70; Pulse 96; Resp 18 S; Temp 97(TE); Pulse Ox 95% on R/A; Weight 73.48 kg aa5 (R); Height 5 ft. 0 in. (R); 15:20 Body Mass Index 31.64 (73.48 kg, 152.4 cm) aa5 ED Course: 15:15 Patient arrived in ED. cj3 15:18 Arm band placed on. aa5 15:18 Patient has correct armband on for positive identification. Adult w/ patient. aa5 15:20 Alpa Rollins FNP-C is PHCP. kb 15:20 Anders Conway MD is Attending Physician. kb 15:21 Triage completed. aa5 15:41 Foot Left 3 View XRAY In Process Unspecified. EDMS 15:46 Sana Conklin, LUISA is Primary Nurse. iw 16:00 No provider procedures requiring assistance completed. Patient did not have IV access aa5 during this emergency room visit. Administered Medications: No medications were administered Medication: 16:00 VIS not applicable for this client. aa5 Outcome: 15:48 Discharge ordered by . kb 16:00 Discharged to home ambulatory, with family, aa5 16:00 Condition: stable 16:00 Discharge instructions given to patient, Instructed on discharge instructions, follow up and referral plans. Demonstrated understanding of instructions, follow-up care, 16:05 Patient left the ED. aa5 Signatures: Dispatcher [employer] Alpa Graham, DAISY SENIOR MEDIA DIRECTOR-Sana Devlin, RN RN iw Pam Perrin RN RN aa5 Karina Teran cj3 Corrections: (The following items were deleted from the chart) 15:22 15:19 Chief complaint: Patient states: "I tripped and hurt my toes (left foot)". Pt aa5 denies fall. aa5
--- NOTE | 2025-02-19 15:49 | EDPHYS ---
Physician Documentation [facility] Name: Sapphire Martinez Age: 74 yrs Sex: Female : 1950 Arrival Date: 02/19/2025 Time: 15:05 Bed 9 Private MD: ED Physician Anders Conway HPI: 02/19 15:39 This 74 yrs old Female presents to ER via Ambulatory with complaints of Toe kb Injury. 15:39 Patient is a 74-year-old female who presents for pain to fourth toe on left foot after kb tripping on Friday, 6 days ago. Denies any other pain or injury. Reports swelling to that toe as well.. Historical: - Allergies: 15:21 Advil; aa5 15:21 Aleve; aa5 - PMHx: 15:21 Arthritis; Colitis; Hyperlipidemia; Diabetes - NIDDM; gastritis; Hypertension; aa5 - PSHx: 15:21 Dillon knee sx; Bladder lift; hysterectomy; Left shoulder sx; Pancreas mass removed; aa5 - Immunization history:: Adult Immunizations unknown. - Infectious Disease History:: Denies. - Social history:: Smoking status: Patient denies any tobacco usage or history of. ROS: 15:39 Constitutional: As per HPI kb Exam: 15:39 Constitutional: This is a well developed, well nourished patient who is awake, alert, kb and in no acute distress. Head/Face: Normocephalic, atraumatic. ENT: Moist Mucous membranes Cardiovascular: Regular rate Respiratory: Respirations even and unlabored. No increased work of breathing. Talking in full sentences Skin: Warm, dry with normal turgor. Normal color. Neuro: Awake and alert, GCS 15, oriented to person, place, time, and situation. 15:39 Musculoskeletal/extremity: Extremities: grossly normal except: noted in the left fourth toe: pain, swelling, ROM: intact in all extremities, Circulation is intact in all extremities. Sensation intact. Weight bearing: able to fully bear weight, Vital Signs: 15:20 BP 136 / 70; Pulse 96; Resp 18 S; Temp 97(TE); Pulse Ox 95% on R/A; Weight 73.48 kg aa5 (R); Height 5 ft. 0 in. (R); 15:20 Body Mass Index 31.64 (73.48 kg, 152.4 cm) aa5 MDM: 15:20 Medical Screening Exam initiated kb 15:47 Differential diagnosis: Fracture, dislocation, sprain. Data reviewed: vital signs, kb nurses notes. Counseling: I had a detailed discussion with the patient and/or guardian regarding the historical points, exam findings, and any diagnostic results supporting the discharge/admit diagnosis, radiology results, the need for outpatient follow up, a orthopedic surgeon, to return to the emergency department if symptoms worsen or persist or if there are any questions or concerns that arise at home. 02/19 15:23 Order name: Foot Left 3 View XRAY; Complete Time: 15:47 aa5 Administered Medications: No medications were administered Disposition Summary: 02/19/25 15:48 Discharge Ordered Notes: Location: Home kb Condition: Stable kb Diagnosis - Sprain of toe kb Followup: kb - With: Emergency Department - When: As needed - Reason: Worsening of condition Followup: kb - With: Private Physician - When: 2 - 3 days - Reason: Recheck today's complaints, Continuance of care, Re-evaluation by your physician Discharge Instructions: - Discharge Summary Sheet kb - Musculoskeletal Pain kb Forms: - Medication Reconciliation Form kb - Antibiotic Education kb - Prescription Opioid Use kb - Patient Portal Instructions kb - Leadership Thank You Letter kb Addendum: 02/21/2025 09:03 Co-signature as Attending Physician, Anders Conway MD I reviewed the patient's care r n provided by the Advanced Practice Provider and agree with the diagnosis and treatment plan. Signatures: Dispatcher [employer] EDAlpa Bravo, CHICK SEXER-C CHICK SEXER-Ckb Anders Conway MD MD rn Calderon, Audri, RN RN aa5 Corrections: (The following items were deleted from the chart) 02/19 15:23 15:23 Foot Left 3 View+[email or web address] ordered. EDMS EDMS
[2025-02-21 19:12] VITALS: BP 136/70; TEMP 97; O2SAT 95
== END 2025-02-19 16:05 | disposition home or self-care (01) ==
LOC: ER 15:05
DX: S93.505A Unspecified sprain of left lesser toe(s), initial encounter (principal)
CPT/HCPCS: 99282